=== PATIENT | female | born 1950 | race Caucasian/White ===

== ENCOUNTER 2016-08-10 03:29 | Inpatient (IN) | payer MEDICARE, OTHER ==
[2016-08-10] MEDS ORDERED: IBUPROFEN 600 MG TAB PO STA (03:32)
[2016-08-10] MEDS ORDERED: ACETAMINOPHEN TAB 500 MG TAB PO STA (03:32)
--- NOTE | 2016-08-10 03:36 | ED ---
General Adult HPI - General Stated complaint: fever, nausea Time Seen by Provider: 08/10/16 03:30 Source: RN notes reviewed - History of Present Illness Initial comments: This is a 66-year-old female presents to the emergency department with a past history of a chronically infected right foot for the last 2 years. Patient comes in today because she is nauseous and feels cold. Patient denies any headache patient denies any numbness or weakness. Patient denies any lightheadedness or dizziness. Patient denies any recent fever or cough. Patient denies any chest pain or palpitations. Patient denies any difficulty breathing or shortness of breath. Patient denies abdominal pain patient denies nausea vomiting diarrhea. Patient denies any recent injury or trauma. Patient denies any dysuria hematuria urinary frequency. - Related Data Home Medications Medication Instructions Recorded Confirmed Allopurinol [Zyloprim] 100 mg PO DAILY 08/10/16 08/10/16 Aspirin 81 mg PO DAILY 08/10/16 08/10/16 Atorvastatin [Lipitor] 40 mg PO DAILY 08/10/16 08/10/16 Furosemide [Lasix] 40 mg PO DAILY 08/10/16 08/10/16 Gabapentin [Neurontin] 400 mg PO DAILY 08/10/16 08/10/16 Hydrocodone/Acetaminophen [Lortab 7.5 ml PO Q6HR 08/10/16 08/10/16 10 mg-300 mg/15 ml Elxr] Insulin Aspart [NovoLOG] 30 unit SQ TID 08/10/16 08/10/16 Insulin Detemir [Levemir] 50 unit SQ BID 08/10/16 08/10/16 Isosorbide Mononitrate [Isosorbide 30 mg PO DAILY 08/10/16 08/10/16 Mononitrate ER] Levothyroxine Sodium [Tirosint] 50 mcg PO DAILY 08/10/16 08/10/16 Metoprolol Tartrate [Lopressor] 50 mg PO DAILY 08/10/16 08/10/16 Oxybutynin Chloride [Ditropan XL] 5 mg PO DAILY 08/10/16 08/10/16 Potassium Chloride [Klor-Con 10] 10 meq PO DAILY 08/10/16 08/10/16 Sertraline [Zoloft] 100 mg PO DAILY 01/09/17 01/09/17 Vitamin E 400 unit PO DAILY 08/10/16 08/10/16 Allergies Allergy/AdvReac Type Severity Reaction Status Date / Time ibuprofen [From Motrin] Allergy Rash/Hives Verified 08/10/16 03:39 Penicillins Allergy Rash/Hives Verified 08/10/16 03:38 Review of Systems ROS Statement: Those systems with pertinent positive or pertinent negative responses have been documented in the HPI. ROS Other: All systems not noted in ROS Statement are negative. General Exam - General Exam Comments Initial Comments: GENERAL: Patient is well-developed and well-nourished. Patient is nontoxic and well- hydrated and is in mild distress. ENT: Neck is soft and supple. No significant lymphadenopathy is noted. Oropharynx is clear. Moist mucous membranes. Neck has full range of motion without eliciting any pain. EYES: The sclera were anicteric and conjunctiva were pink and moist. Extraocular movements were intact and pupils were equal round and reactive to light. Eyelids were unremarkable. PULMONARY: Unlabored respirations. Good breath sounds bilaterally. No audible rales rhonchi or wheezing was noted. CARDIOVASCULAR: There is a regular rate and rhythm without any murmurs gallops or rubs. ABDOMEN: Soft and nontender with normal bowel sounds. No palpable organomegaly was noted. There is no palpable pulsatile mass. There is a small hard mass in the left upper quadrant of the abdomen patient states his been there quite a while it feels like a lipoma. SKIN: Skin is clear with no lesions or rashes and otherwise unremarkable. NEUROLOGIC: Patient is alert and oriented x3. Cranial nerves II through XII are grossly intact. Motor and sensory are also intact. Normal speech, volume and content. Symmetrical smile. MUSCULOSKELETAL: Normal extremities with adequate strength and full range of motion. No lower extremity swelling or edema. No calf tenderness. Right foot is erythematous on the dorsal service up through the ankle and his warm LYMPHATICS: No significant lymphadenopathy is noted PSYCHIATRIC: Normal psychiatric evaluation. Course Vital Signs 08/10/16 08/10/16 03:31 04:38 Temperature 102.2 F H 103.0 F H Pulse Rate 93 68 Respiratory 20 20 Rate Blood Pressure 155/67 132/72 O2 Sat by Pulse 98 98 Oximetry Medical Decision Making - Medical Decision Making Chest x-ray is normal. I believe patient is safe to the right foot I started the patient on Levaquin and admitted the patient I spoke with Dr. Cruz wrote admitting orders. - Lab Data Result diagrams: 08/10/16 04:00 08/10/16 04:00 Lab Results 08/10/16 08/10/16 08/10/16 Range/Units 04:00 04:00 04:00 WBC 18.7 H (3.8-10.6) k/uL RBC 3.72 L (3.80-5.40) m/uL Hgb 10.4 L (11.4-16.0) gm/dL Hct 32.7 L (34.0-46.0) % MCV 87.9 (80.0-100.0) fL MCH 28.1 (25.0-35.0) pg MCHC 31.9 (31.0-37.0) g/dL RDW 15.8 H (11.5-15.5) % Plt Count 177 (150-450) k/uL Neutrophils % 92 % Lymphocytes % 3 % Monocytes % 4 % Eosinophils % 0 % Basophils % 0 % Neutrophils # 17.2 H (1.3-7.7) k/uL Lymphocytes # 0.5 L (1.0-4.8) k/uL Monocytes # 0.7 (0-1.0) k/uL Eosinophils # 0.0 (0-0.7) k/uL Basophils # 0.1 (0-0.2) k/uL Sodium 138 (137-145) mmol/L Potassium 4.5 (3.5-5.1) mmol/L Chloride 97 L (98-107) mmol/L Carbon Dioxide 27 (22-30) mmol/L Anion Gap 14 mmol/L BUN 29 H (7-17) mg/dL Creatinine 1.20 H (0.52-1.04) mg/dL Est GFR (MDRD) Af Amer 54 (>60 ml/min/1.73 sqM) Est GFR (MDRD) Non-Af 45 (>60 ml/min/1.73 sqM) Glucose 260 H (74-99) mg/dL Plasma Lactic Acid Garcia 1.8 (0.7-2.0) mmol/L Calcium 9.5 (8.4-10.2) mg/dL Total Bilirubin 1.3 (0.2-1.3) mg/dL AST 27 (14-36) U/L ALT 30 (9-52) U/L Alkaline Phosphatase 97 (38-126) U/L Total Protein 7.0 (6.3-8.2) g/dL Albumin 3.8 (3.5-5.0) g/dL Urine Color Urine Appearance (Clear) Urine pH (5.0-8.0) Ur Specific [place] (1.001-1.035) Urine Protein (Negative) Urine Glucose (UA) (Negative) Urine Ketones (Negative) Urine Blood (Negative) Urine Nitrate (Negative) Urine Bilirubin (Negative) Urine Urobilinogen (<2.0) mg/dL Ur Leukocyte Esterase (Negative) Urine RBC (0-5) /hpf Urine WBC (0-5) /hpf Ur Squamous Epith Cells (0-4) /hpf Amorphous Sediment (None) /hpf Urine Bacteria (None) /hpf Hyaline Casts (0-2) /lpf Urine Mucus (None) /hpf 08/10/16 Range/Units 04:30 WBC (3.8-10.6) k/uL RBC (3.80-5.40) m/uL Hgb (11.4-16.0) gm/dL Hct (34.0-46.0) % MCV (80.0-100.0) fL MCH (25.0-35.0) pg MCHC (31.0-37.0) g/dL RDW (11.5-15.5) % Plt Count (150-450) k/uL Neutrophils % % Lymphocytes % % Monocytes % % Eosinophils % % Basophils % % Neutrophils # (1.3-7.7) k/uL Lymphocytes # (1.0-4.8) k/uL Monocytes # (0-1.0) k/uL Eosinophils # (0-0.7) k/uL Basophils # (0-0.2) k/uL Sodium (137-145) mmol/L Potassium (3.5-5.1) mmol/L Chloride (98-107) mmol/L Carbon Dioxide (22-30) mmol/L Anion Gap mmol/L BUN (7-17) mg/dL Creatinine (0.52-1.04) mg/dL Est GFR (MDRD) Af Amer (>60 ml/min/1.73 sqM) Est GFR (MDRD) Non-Af (>60 ml/min/1.73 sqM) Glucose (74-99) mg/dL Plasma Lactic Acid Garcia (0.7-2.0) mmol/L Calcium (8.4-10.2) mg/dL Total Bilirubin (0.2-1.3) mg/dL AST (14-36) U/L ALT (9-52) U/L Alkaline Phosphatase (38-126) U/L Total Protein (6.3-8.2) g/dL Albumin (3.5-5.0) g/dL Urine Color Yellow Urine Appearance Cloudy H (Clear) Urine pH 5.0 (5.0-8.0) Ur Specific [place] 1.011 (1.001-1.035) Urine Protein Negative (Negative) Urine Glucose (UA) Negative (Negative) Urine Ketones Negative (Negative) Urine Blood Trace H (Negative) Urine Nitrate Positive H (Negative) Urine Bilirubin Negative (Negative) Urine Urobilinogen <2.0 (<2.0) mg/dL Ur Leukocyte Esterase Moderate H (Negative) Urine RBC 3 (0-5) /hpf Urine WBC 10 H (0-5) /hpf Ur Squamous Epith Cells 1 (0-4) /hpf Amorphous Sediment Rare H (None) /hpf Urine Bacteria Few H (None) /hpf Hyaline Casts 5 H (0-2) /lpf Urine Mucus Rare H (None) /hpf Disposition Clinical Impression: Cellulitis of right foot, Urinary tract infection Disposition: ADMITTED IP TO THIS HOSP Referrals: Marcelino Cruz Jr, [Primary Care Provider] - 1-2 days Time of Disposition: 05:12
[2016-08-10] MEDS: ONDANSETRON 4 MG/2 ML VIAL IVP STA ×2 (04:13→04:15)
[2016-08-10 04:14] LABS: Basophils # (A) 0.1 k/uL (0-0.2); Basophils % (A) 0 %; CH 28.9; CHCM 33.1; Eosinophils % (A) 0 %; HCT 32.7 % (34.0-46.0); HDW 2.44; HGB 10.4 gm/dL (11.4-16.0); Luc % (Auto) 1; Lymphocytes # (A) 0.5 k/uL (1.0-4.8); Lymphocytes % (A) 3 %; MCH 28.1 pg (25.0-35.0); MCHC 31.9 g/dL (31.0-37.0); MCV 87.9 fL (80.0-100.0); Mean Platelet Volume 7.9; Monocytes # (A) 0.7 k/uL (0-1.0); Monocytes % (A) 4 %; Neutrophils # (A) 17.2 k/uL (1.3-7.7); Neutrophils % (A) 92 %; RBC 3.72 m/uL (3.80-5.40); RDW 15.8 % (11.5-15.5); WBC 18.7 k/uL (3.8-10.6); WBC (Perox) 19.62
[2016-08-10] MEDS: SODIUM CHLORIDE 0.9% 1,000 ML IV STA ×2 (04:18→06:58)
[2016-08-10 04:22] LABS: Calcium 9.5 mg/dL (8.4-10.2); Potassium 4.5 mmol/L (3.5-5.1); Total Bilirubin 1.3 mg/dL (0.2-1.3)
[2016-08-10 04:46] LABS: Amorphous Sediment,Urine Rare /hpf; Appearance,Urine Cloudy (Clear); Bacteria,Urine Few /hpf; Bilirubin,Urine Negative (Negative); Glucose,Urine (UA) Negative (Negative); Ketones,Urine Negative (Negative); Leukocyte Esterase,Urine Moderate (Negative); Mucus,Urine Rare /hpf; Nitrite,Urine Positive (Negative); Particle Count 18671; Protein,Urine Negative (Negative); RBC,Urine 3 /hpf (0-5); Specific Gravity,Urine 1.011 (1.001-1.035); Squamous Epithelial Cell,Urine 1 /hpf (0-4); UA Billing (MACRO vs. MICRO) MICRO; Urobilinogen,Urine <2.0 mg/dL (<2.0); WBC,Urine 10 /hpf (0-5)
[2016-08-10] MEDS ORDERED: LEVOFLOXACIN 750MG-D5W PMX 750 MG in DEXTROSE/WATER 1 150ML.BAG IVPB STA (04:56)
[2016-08-10] MEDS ORDERED: SODIUM CHLORIDE 0.9% 1,000 ML IV ONE ×2 (05:12→16:24)
--- NOTE | 2016-08-10 06:09 | XR ---
EXAMINATION TYPE: XR chest 2V DATE OF EXAM: 08/10/2016 5:08 AM COMPARISON: 08/11/2011 HISTORY: Fever and weakness TECHNIQUE: Frontal and lateral views of the chest are obtained. FINDINGS: There is mild pulmonary vascular congestion. There is no focal air space opacity, pleural effusion, or pneumothorax seen. There is mild cardiomega ly. Postsurgical changes of sternotomy are noted.. The osseous structures are intact. IMPRESSION: 1. No focal pneumonia. 2. Mild pulmonary vascular congestion. 3. Cardiomegaly and sternotomy.
[2016-08-10 07:53] LABS: Glucose,Whole Blood 288 mg/dL (75-99)
[2016-08-10] MEDS: HYDROcodone/APAP 15 ML SOLUTION PO PRN ×2 (08:35→15:51)
[2016-08-10] MEDS: FUROSEMIDE 40 MG TAB PO SCH ×2 (10:56→17:04)
[2016-08-10] MEDS: POTASSIUM CHLORIDE ER 10 MEQ TAB.ER.PRT PO SCH (10:56)
[2016-08-10] MEDS: LEVOTHYROXINE 50 MCG TAB PO SCH (10:56)
[2016-08-10] MEDS: ISOSORBIDE MONONITRATE ER 30 MG TAB.ER.24H PO SCH (10:56)
[2016-08-10] MEDS: METOPROLOL TARTRATE 50 MG TAB PO SCH (10:56)
[2016-08-10] MEDS: INSULIN DETEMIR 100 UNIT/ML 10 ML VIAL SQ SCH ×2 (10:56→20:55)
[2016-08-10] MEDS: OXYBUTYNIN CHLORIDE 5 MG TAB PO SCH ×2 (10:57→20:55)
[2016-08-10] MEDS: SERTRALINE 100 MG TAB PO SCH (10:57)
[2016-08-10 12:00] LABS: Glucose,Whole Blood 342 mg/dL (75-99)
[2016-08-10] MEDS: VITAMIN E (DL,TOCOPHERYL ACET) 400 UNIT CAP PO SCH (12:21)
[2016-08-10] MEDS: CLOTRIMAZOLE 1% CREAM 15 GM TUBE TOPICAL SCH ×2 (12:22→20:55)
[2016-08-10] MEDS: INSULIN LISPRO (humaLOG) 300 UNIT/3 ML VIAL SQ SCH ×5 (12:34→20:55)
--- NOTE | 2016-08-10 16:41 | P.HPIM ---
History of Present Illness H&P Date: 08/10/16 Chief Complaint: Fever, nausea Patient is a 66-year-old female, patient of Dr. Cruz in the outpatient setting with medical history significant for coronary artery disease , diabetes mellitus, hyperlipidemia, hypertension, hypothyroidism, diverticulitis, rheumatic fever, arthritis, morbid obesity, and gout. Patient has also had chronic cellulitis to right lower extremity for approximately 2 years. Patient presented to the emergency department with complaints of nauseous and having chills. Patient was found to be septic with evidence of elevated temperature, white count, and lactic acid. Patient was found to have a urinary tract infection. Patient was started on IV Levaquin and admitted to the medical floor. Upon examination, patient complains of pain to her right foot currently rated 6 out of 10. Patient complains of mild nausea without vomiting. Complains of intermittent chills. Denies shortness of breath, chest pain, or abdominal pain. Patient reports decreased appetite. Past Medical History Past Medical History: Coronary Artery Disease (CAD), Diabetes Mellitus, Hyperlipidemia, Hypertension, Thyroid Disorder Additional Past Medical History / Comment(s): diverticultitis, rhuematic fever, arthritis, gout History of Any Multi-Drug Resistant Organisms: None Reported Past Surgical History: Bariatric Surgery, Section, Cholecystectomy, Hysterectomy, Tonsillectomy Additional Past Surgical History / Comment(s): carpal tunnel, double bypass Past Psychological History: No Psychological Hx Reported Smoking Status: Never smoker Past Alcohol Use History: None Reported Past Drug Use History: None Reported Medications and Allergies Home Medications Medication Instructions Recorded Confirmed Type Allopurinol [Zyloprim] 100 mg PO DAILY 08/10/16 08/10/16 History Aspirin 81 mg PO DAILY 08/10/16 08/10/16 History Atorvastatin [Lipitor] 40 mg PO DAILY 08/10/16 08/10/16 History Furosemide [Lasix] 40 mg PO BID 08/10/16 08/10/16 History Gabapentin [Neurontin] 400 mg PO HS 08/10/16 08/10/16 History Hydrocodone/Acetaminophen 15 ml PO Q6HR PRN 08/10/16 08/10/16 History [Hydrocodon-Acetamin 7.5-325/15] Insulin Aspart [NovoLOG] 30 unit SQ AC-TID 08/10/16 08/10/16 History Insulin Detemir [Levemir] 50 unit SQ BID 08/10/16 08/10/16 History Isosorbide Mononitrate [Isosorbide 30 mg PO DAILY 08/10/16 08/10/16 History Mononitrate ER] Levothyroxine Sodium [Tirosint] 50 mcg PO DAILY 08/10/16 08/10/16 History Metoprolol Tartrate [Lopressor] 50 mg PO DAILY 08/10/16 08/10/16 History Oxybutynin Chloride 5 mg PO BID 08/10/16 08/10/16 History Potassium Chloride [Klor-Con 10] 10 meq PO DAILY 08/10/16 08/10/16 History Sertraline [Zoloft] 100 mg PO DAILY 08/10/16 08/10/16 History Vitamin E 400 unit PO DAILY 08/10/16 08/10/16 History Allergies Allergy/AdvReac Type Severity Reaction Status Date / Time ibuprofen [From Motrin] Allergy Rash/Hives Verified 08/10/16 03:39 Penicillins Allergy Rash/Hives Verified 08/10/16 03:38 Physical Exam Vitals: Vital Signs Temp Pulse Pulse Resp BP BP Pulse Ox 08/10/16 14:49 97.6 F 68 18 100/40 93 L 08/10/16 06:29 100.7 F H 107 H 16 136/52 92 L 08/10/16 06:15 16 08/10/16 05:29 100.5 F H 88 20 139/78 98 Intake and Output 08/10/16 08/10/16 08/10/16 06:59 14:59 22:59 Output Total 100 Balance -100 Output: Urine 100 Other: Voiding Method Indwelling Catheter Indwelling Catheter # Voids 1 Weight 145 kg GENERAL: Pt awake and alert, well-nourished, and uncomfortable. HEAD: Atraumatic, normocephalic. EYES: Pupils equal and round. ENT: Moist mucous membranes. NECK:Supple without lymphadenopathy or JVD. LUNGS: Breath sounds clear to auscultation bilaterally. No wheezes, rales, or rhonchi. HEART: Heart S1, S2, no S3 or S4. Regular rate and rhythm. No murmurs, rubs or gallops. ABDOMEN: Soft, morbidly obese, nontender, nondistended, normoactive bowel sounds. EXTREMITIES: 2+ peripheral pulses. 1+ edema to bilateral lower extremities. No calf tenderness. NEUROLOGICAL: Pt oriented x 3. Cranial nerves II through XII grossly intact. Decreased strength to upper and lower extremities. PSYCH: Normal mood, normal affect. SKIN: Cellulitis to right lower extremity from ankle to foot. Results CBC & Chem 7: 08/10/16 04:00 08/10/16 04:00 Labs: Abnormal Lab Results - Last 24 Hours (Table) 08/10/16 08/10/16 Range/Units 07:33 11:56 POC Glucose (mg/dL) 288 H 342 H (75-99) mg/dL Chest x-ray: report reviewed (No focal pneumonia. Mild pulmonary vascular congestion. Cardiomegaly and sternotomy.) Thrombosis Risk Factor Assmnt - DVT/VTE Prophylaxis DVT/VTE Prophylaxis: Pharmacologic Prophylaxis ordered, Mechanical Prophylaxis ordered - Choose All That Apply Any of the Below Risk Factors Present?: Yes Each Factor Represents 1 point: Swollen legs (current) Other Risk Factors: Yes Each Risk Factor Represents 2 Points: Age 61-74 years Each Risk Factor Represents 3 Points: Family history of DVT/PE Other congenital or acquired thrombophilia - If yes, enter type in comment: No Thrombosis Risk Factor Assessment Total Risk Factor Score: 6 Thrombosis Risk Factor Assessment Level: High Risk Assessment and Plan Plan: Impression and plan: 1. Sepsis suspect secondary to urinary tract infection and possible cellulitis to right foot. Urine culture pending. Continue IV Levaquin. 2. Cellulitis to right foot. Continue local wound care. 3. Anemia suspect secondary to chronic disease. 4. Chronic renal failure, stage III. 5. Diabetes mellitus, insulin requiring, uncontrolled. Continue Levemir and Humalog sliding scale. Continue consistent carbohydrate diet. 6. Coronary artery disease with history of coronary artery bypass grafting. 7. History of hyperlipidemia. 8. Hypertension. Continue metoprolol. Continue Imdur. 9. Hypothyroidism. Continue levothyroxine. 10. History of diverticulitis. 11. History of rheumatic fever. 12. History of osteoarthritis to multiple joints. 13. History of gout. 14. Morbid obesity, BMI 58.5. 15. GI prophylaxis. Continue Pepcid. 16. DVT prophylaxis. Continue subcu heparin. The above impression and plan have been discussed and directed by Dr. Cruz. Munira AGUILERA acting as scribe for Dr. Cruz.
[2016-08-10 17:08] LABS: Glucose,Whole Blood 183 mg/dL (75-99)
[2016-08-10] MEDS: HEPARIN SODIUM,PORCINE 5,000 UNIT/ML 1 ML VIAL SQ SCH ×2 (17:13→23:16)
[2016-08-10] MEDS: FAMOTIDINE 20 MG TAB PO SCH (20:55)
[2016-08-10] MEDS: GABAPENTIN 400 MG CAP PO SCH (20:55)
[2016-08-10 21:05] LABS: Glucose,Whole Blood 152 mg/dL (75-99)
[2016-08-11] MEDS: LEVOTHYROXINE 50 MCG TAB PO SCH (05:58)
[2016-08-11 07:24] LABS: Glucose,Whole Blood 147 mg/dL (75-99)
[2016-08-11] MEDS: HYDROcodone/APAP 15 ML SOLUTION PO PRN ×2 (07:37→21:13)
[2016-08-11] MEDS: HEPARIN SODIUM,PORCINE 5,000 UNIT/ML 1 ML VIAL SQ SCH ×3 (07:37→22:58)
[2016-08-11] MEDS: INSULIN DETEMIR 100 UNIT/ML 10 ML VIAL SQ SCH ×2 (07:38→21:13)
[2016-08-11] MEDS: SERTRALINE 100 MG TAB PO SCH (07:38)
[2016-08-11] MEDS: POTASSIUM CHLORIDE ER 10 MEQ TAB.ER.PRT PO SCH (07:38)
[2016-08-11] MEDS: INSULIN LISPRO (humaLOG) 300 UNIT/3 ML VIAL SQ SCH ×7 (07:38→21:14)
[2016-08-11] MEDS: ISOSORBIDE MONONITRATE ER 30 MG TAB.ER.24H PO SCH (07:38)
[2016-08-11] MEDS: METOPROLOL TARTRATE 50 MG TAB PO SCH (07:38)
[2016-08-11] MEDS: OXYBUTYNIN CHLORIDE 5 MG TAB PO SCH ×2 (07:38→21:13)
[2016-08-11] MEDS: CLOTRIMAZOLE 1% CREAM 15 GM TUBE TOPICAL SCH ×2 (07:39→21:13)
[2016-08-11] MEDS ORDERED: LEVOFLOXACIN 750MG-D5W PMX 750 MG in DEXTROSE/WATER 1 150ML.BAG IVPB SCH (09:00)
[2016-08-11 10:19] VITALS: BMI 61.2
[2016-08-11 10:21] LABS: CH 28.6; CHCM 31.7; HCT 28.4 % (34.0-46.0); HDW 2.29; MCH 28.9 pg (25.0-35.0); MCHC 31.9 g/dL (31.0-37.0); MCV 90.5 fL (80.0-100.0); Mean Platelet Volume 7.7; RBC 3.13 m/uL (3.80-5.40); RDW 15.7 % (11.5-15.5); WBC 9.3 k/uL (3.8-10.6)
[2016-08-11 10:47] LABS: Calcium 8.6 mg/dL (8.4-10.2); Potassium 4.1 mmol/L (3.5-5.1)
[2016-08-11] MEDS: cefTRIAXone 2,000 MG in SODIUM CHLORIDE 0.9% 100 ML IVPB SCH (11:06)
[2016-08-11] MEDS: VITAMIN E (DL,TOCOPHERYL ACET) 400 UNIT CAP PO SCH (11:06)
--- NOTE | 2016-08-11 11:26 | P.CONS ---
History of Present Illness - Reason for Consult Consult date: 08/11/16 Fever, cellulitis, UTI - History of Present Illness This is 66-year-old . She gives history that for a long time she has been very tired to the point where she can hardly put 1 foot in front of the other. She also states that she has had intermittent nausea with persistent lack of appetite. She states she only eats one meal in the evening daily. She is diabetic and she states her blood sugars are running in the 200+ at home. She states she was placed on Synthroid along time ago for these symptoms which did not seem to make any difference. She now states she has had fever on and off for the last couple of weeks. She states on Wednesday evening she took a shower and she got so cold with rigors and she couldn't stop shaking and her family brought her into [facility] emergency center for evaluation. Patient also states for the past 2 years she has had problems with redness to the right lower leg and she has been on Kenalog cream for the past 3 months. She denies any recent antibiotics and to the legs. She does complain of pressure to the lower abdominal area and pain with urination. She does states she urinates frequently depending on when she takes her water pill. She also states her urine has been smelling terrible. Her white count was 18.7 with temperature of 103.0. BUN 29 creatinine 1.2, lactic acid 2.2, albumin 3.8. Urinalysis was cloudy, blood trace, nitrate positive, leukoesterase moderate, WBC is 10, bacteria few. Urine culture is showing gram-negative bacilli greater than 100,000 colonies. Blood cultures showing no growth at 24 hours. Chest x-ray showed no focal pneumonia with mild pulmonary vascular congestion and cardiomegaly. Patient was started on Levaquin and admitted to the [facility] floor. At this time, patient states she is not feeling much improvement. She did have a temperature 101.1 this morning pulse ox was 89% on room air. She states she sometimes feels lightheaded even when she is in a sitting position. Review of Systems All systems: negative Constitutional: Reports anorexia, Reports chills, Reports fatigue, Reports fever , Reports lethargy, Reports poor appetite, Reports sweats, Reports weakness Eyes: denies blurred vision, denies pain Ears, nose, mouth and throat: Denies dental pain, Denies headache, Denies mouth pain, Denies sore throat Cardiovascular: Reports dyspnea on exertion, Reports leg edema, Reports lightheadedness, Denies chest pain, Denies shortness of breath Respiratory: Denies cough, Denies cough with sputum, Denies excessive sputum, Denies hemoptysis Gastrointestinal: Reports loss of appetite, Denies abdominal pain, Denies diarrhea, Denies nausea, Denies vomiting Genitourinary: Reports dysuria, Reports urinary frequency, Denies hematuria Musculoskeletal: Denies myalgias Integumentary: Reports color changes, Reports wounds, Denies pruritus, Denies rash Neurological: Denies numbness, Denies weakness Psychiatric: Denies anxiety, Denies depression Endocrine: Denies fatigue, Denies weight change Past Medical History Past Medical History: Coronary Artery Disease (CAD), Diabetes Mellitus, Hyperlipidemia, Hypertension, Thyroid Disorder Additional Past Medical History / Comment(s): diverticultitis, rhuematic fever, arthritis, gout, obstructive sleep apnea on CPAP History of Any Multi-Drug Resistant Organisms: None Reported Past Surgical History: Bariatric Surgery, Section, Cholecystectomy, Hysterectomy, Tonsillectomy Additional Past Surgical History / Comment(s): A 2 vessel CABG in 1996, bilateral carpal tunnel release, lap band surgery with Dr. Jefferson Past Psychological History: No Psychological Hx Reported Smoking Status: Never smoker Past Alcohol Use History: None Reported Additional Past Alcohol Use History / Comment(s): Patient is a lifelong nonsmoker. She denies any medical marijuana, marijuana, street drug or alcohol use. She lives at home with her son, grandson and brother. 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 There are 3 dogs and 1 cat in the home. Past Drug Use History: None Reported Medications and Allergies Home Medications Medication Instructions Recorded Confirmed Type Allopurinol [Zyloprim] 100 mg PO DAILY 08/10/16 08/10/16 History Aspirin 81 mg PO DAILY 08/10/16 08/10/16 History Atorvastatin [Lipitor] 40 mg PO DAILY 08/10/16 08/10/16 History Furosemide [Lasix] 40 mg PO BID 08/10/16 08/10/16 History Gabapentin [Neurontin] 400 mg PO HS 08/10/16 08/10/16 History Hydrocodone/Acetaminophen 15 ml PO Q6HR PRN 08/10/16 08/10/16 History [Hydrocodon-Acetamin 7.5-325/] Insulin Aspart [NovoLOG] 30 unit SQ AC-TID 08/10/16 08/10/16 History Insulin Detemir [Levemir] 50 unit SQ BID 08/10/16 08/10/16 History Isosorbide Mononitrate [Isosorbide 30 mg PO DAILY 08/10/16 08/10/16 History Mononitrate ER] Levothyroxine Sodium [Tirosint] 50 mcg PO DAILY 08/10/16 08/10/16 History Metoprolol Tartrate [Lopressor] 50 mg PO DAILY 08/10/16 08/10/16 History Oxybutynin Chloride 5 mg PO BID 08/10/16 08/10/16 History Potassium Chloride [Klor-Con 10] 10 meq PO DAILY 08/10/16 08/10/16 History Sertraline [Zoloft] 100 mg PO DAILY 08/10/16 08/10/16 History Vitamin E 400 unit PO DAILY 08/10/16 08/10/16 History Allergies Allergy/AdvReac Type Severity Reaction Status Date / Time ibuprofen [From Motrin] Allergy Rash/Hives Verified 08/10/16 03:39 Penicillins Allergy Rash/Hives Verified 08/10/16 03:38 Physical Exam Vitals: Vital Signs Temp Pulse Resp BP Pulse Ox 08/11/16 08:30 98.4 F 08/11/16 07:00 101.1 F H 76 20 121/60 89 L 08/10/16 23:00 98.9 F 69 20 126/58 91 L 08/10/16 14:49 97.6 F 68 18 100/40 93 L Intake and Output 08/10/16 08/11/16 08/11/16 22:59 06:59 14:59 Intake Total 400 Output Total 525 400 Balance -525 0 Intake: Oral 400 Output: Urine 525 400 Other: Voiding Method Indwelling Catheter Indwelling Catheter Weight 152 kg 152 kg Patient Weight 08/12/16 06:59 Weight 152 kg Gen: This is a super morbidly obese 66-year-old female. She appears to be in no acute distress. HEENT: Head is atraumatic, normocephalic. Pupils equal, round. Sclerae is anicteric. Conjunctiva pink. Mucous members of the mouth are moist. Patient is edentulous. No thrush noted. NECK: Supple. No JVD. No lymphadenopathy. No thyromegaly. LUNGS: Clear to auscultation. No wheezes or rhonchi. No intercostal retractions. HEART: Regular rate and rhythm. No murmur. ABDOMEN: Morbidly obese Soft. Bowel sounds are present. No masses. Minimal suprapubic tenderness. EXTREMITIES: 1+ pedal edema. Right leg has large dressing in place with Jam wrap which was not removed. Exam deferred to Dr. Jansen. NEUROLOGICAL: Patient is awake, alert and oriented x3. Cranial nerves 2 through 12 are grossly intact. Results Results: Laboratory Results WBC 9.3 k/uL (3.8-10.6) 08/11/16 09:42 RBC 3.13 m/uL (3.80-5.40) L 08/11/16 09:42 Hgb 9.0 gm/dL (11.4-16.0) L 08/11/16 09:42 Hct 28.4 % (34.0-46.0) L 08/11/16 09:42 MCV 90.5 fL (80.0-100.0) 08/11/16 09:42 MCH 28.9 pg (25.0-35.0) 08/11/16 09:42 MCHC 31.9 g/dL (31.0-37.0) 08/11/16 09:42 RDW 15.7 % (11.5-15.5) H 08/11/16 09:42 Plt Count 145 k/uL (150-450) L 08/11/16 09:42 Neutrophils % 92 % 08/10/16 04:00 Lymphocytes % 3 % 08/10/16 04:00 Monocytes % 4 % 08/10/16 04:00 Eosinophils % 0 % 08/10/16 04:00 Basophils % 0 % 08/10/16 04:00 Neutrophils # 17.2 k/uL (1.3-7.7) H 08/10/16 04:00 Lymphocytes # 0.5 k/uL (1.0-4.8) L 08/10/16 04:00 Monocytes # 0.7 k/uL (0-1.0) 08/10/16 04:00 Eosinophils # 0.0 k/uL (0-0.7) 08/10/16 04:00 Basophils # 0.1 k/uL (0-0.2) 08/10/16 04:00 Sodium 137 mmol/L (137-145) 08/11/16 09:42 Potassium 4.1 mmol/L (3.5-5.1) 08/11/16 09:42 Chloride 100 mmol/L (98-107) 08/11/16 09:42 Carbon Dioxide 26 mmol/L (22-30) 08/11/16 09:42 Anion Gap 11 mmol/L 08/11/16 09:42 BUN 36 mg/dL (7-17) H 08/11/16 09:42 Creatinine 1.56 mg/dL (0.52-1.04) H 08/11/16 09:42 Est GFR (MDRD) Af Amer 40 (>60 ml/min/1.73 sqM) 08/11/16 09:42 Est GFR (MDRD) Non-Af 33 (>60 ml/min/1.73 sqM) 08/11/16 09:42 Glucose 149 mg/dL (74-99) H 08/11/16 09:42 POC Glucose (mg/dL) 147 mg/dL (75-99) H 08/11/16 07:23 POC Glu Tobacco Stripper Hand ID Kendra Pace 08/11/16 07:[address] Glu mg/dL 212 mg/dL 08/10/16 04:00 Hemoglobin A1c 9.0 % (4.2-6.1) H 08/10/16 04:00 Plasma Lactic Acid Garcia 1.1 mmol/L (0.7-2.0) 08/11/16 09:42 Calcium 8.6 mg/dL (8.4-10.2) 08/11/16 09:42 Total Bilirubin 1.3 mg/dL (0.2-1.3) 08/10/16 04:00 AST 27 U/L (14-36) 08/10/16 04:00 ALT 30 U/L (9-52) 08/10/16 04:00 Alkaline Phosphatase 97 U/L (38-126) 08/10/16 04:00 Total Protein 7.0 g/dL (6.3-8.2) 08/10/16 04:00 Albumin 3.8 g/dL (3.5-5.0) 08/10/16 04:00 Urine Color Yellow 08/10/16 04:30 Urine Appearance Cloudy (Clear) H 08/10/16 04:30 Urine pH 5.0 (5.0-8.0) 08/10/16 04:30 Ur Specific Taylor 1.011 (1.001-1.035) 08/10/16 04:30 Urine Protein Negative (Negative) 08/10/16 04:30 Urine Glucose (UA) Negative (Negative) 08/10/16 04:30 Urine Ketones Negative (Negative) 08/10/16 04:30 Urine Blood Trace (Negative) H 08/10/16 04:30 Urine Nitrate Positive (Negative) H 08/10/16 04:30 Urine Bilirubin Negative (Negative) 08/10/16 04:30 Urine Urobilinogen <2.0 mg/dL (<2.0) 08/10/16 04:30 Ur Leukocyte Esterase Moderate (Negative) H 08/10/16 04:30 Urine RBC 3 /hpf (0-5) 08/10/16 04:30 Urine WBC 10 /hpf (0-5) H 08/10/16 04:30 Ur Squamous Epith Cells 1 /hpf (0-4) 08/10/16 04:30 Amorphous Sediment Rare /hpf (None) H 08/10/16 04:30 Urine Bacteria Few /hpf (None) H 08/10/16 04:30 Hyaline Casts 5 /lpf (0-2) H 08/10/16 04:30 Urine Mucus Rare /hpf (None) H 08/10/16 04:30 Influenza Type A RNA Not Detected (Not Detectd) 08/10/16 05:40 Influenza Type B (PCR) Not Detected (Not Detectd) 08/10/16 05:40 CBC & Chem 7: 08/11/16 09:42 08/11/16 09:42 Labs: Abnormal Lab Results - Last 24 Hours (Table) 08/10/16 08/10/16 08/10/16 Range/Units 11:56 15:27 17:04 RBC (3.80-5.40) m/uL Hgb (11.4-16.0) gm/dL Hct (34.0-46.0) % RDW (11.5-15.5) % Plt Count (150-450) k/uL BUN (7-17) mg/dL Creatinine (0.52-1.04) mg/dL Glucose (74-99) mg/dL POC Glucose (mg/dL) 342 H 183 H (75-99) mg/dL Plasma Lactic Acid Garcia 2.2 H* (0.7-2.0) mmol/L 08/10/16 08/11/16 08/11/16 Range/Units 20:47 07:23 09:42 RBC 3.13 L (3.80-5.40) m/uL Hgb 9.0 L (11.4-16.0) gm/dL Hct 28.4 L (34.0-46.0) % RDW 15.7 H (11.5-15.5) % Plt Count 145 L (150-450) k/uL BUN (7-17) mg/dL Creatinine (0.52-1.04) mg/dL Glucose (74-99) mg/dL POC Glucose (mg/dL) 152 H 147 H (75-99) mg/dL Plasma Lactic Acid Garcia (0.7-2.0) mmol/L 08/11/16 Range/Units 09:42 RBC (3.80-5.40) m/uL Hgb (11.4-16.0) gm/dL Hct (34.0-46.0) % RDW (11.5-15.5) % Plt Count (150-450) k/uL BUN 36 H (7-17) mg/dL Creatinine 1.56 H (0.52-1.04) mg/dL Glucose 149 H (74-99) mg/dL POC Glucose (mg/dL) (75-99) mg/dL Plasma Lactic Acid Garcia (0.7-2.0) mmol/L Assessment and Plan Plan: This is a 66-year-old female who presents for hospital with signs of sepsis with fever and leukocytosis most likely due to urinary tract infection and cellulitis to the right lower extremity. Urine culture showing gram- negative bacilli. She has been on Levaquin without improvement and continues to have fevers. Patient will be placed on ceftriaxone. Discussed with patient her need to eat regular meals and control blood sugars. Continue supportive care. Further recommendations as patient progresses. The above dictated assessment and findings were discussed with Dr. Jansen. The impression and plan of care have been directed as dictated. Glenny Shultz nurse practitioner acting as scribe for Dr. Jansen. Time with Patient: Greater than 30
[2016-08-11 12:27] LABS: Glucose,Whole Blood 111 mg/dL (75-99)
--- NOTE | 2016-08-11 12:48 | P.PN ---
Subjective Principal diagnosis: Urinary tract infection Patient is a 66-year-old female, patient of Dr. Cruz in the outpatient setting with medical history significant for coronary artery disease , diabetes mellitus, hyperlipidemia, hypertension, hypothyroidism, diverticulitis, rheumatic fever, arthritis, morbid obesity, and gout. Patient has also had evidence of chronic cellulitis to right lower extremity for approximately 2 years. Patient presented to the emergency department with complaints of nauseous and having chills. Patient was found to be sepsis from urinary tract infection. Patient was started on IV Levaquin and admitted to the medical floor. Upon evaluation, patient complains of mild suprapubic abdominal pain that she states has been ongoing for a couple weeks. Patient reports chills and sweats last night. Patient reports mild nausea without vomiting this morning. Denies shortness of breath, chest pain, diarrhea or constipation. Patient states she had approximately 50% of her breakfast. No evidence of leukocytosis. Creatinine increased to 1.56. Objective - Vital Signs Vital signs: Vital Signs Temp 98.4 F 08/11/16 08:30 Pulse 76 08/11/16 07:00 Resp 20 08/11/16 07:00 BP 121/60 08/11/16 07:00 Pulse Ox 89 L 08/11/16 07:00 Intake & Output 08/10/16 08/11/16 08/11/16 18:59 06:59 18:59 Intake Total 400 Output Total 325 600 Balance -325 -200 Weight 152 kg 152 kg Intake: Oral 400 Output: Urine 325 600 Other: Voiding Method Indwelling Catheter Indwelling Catheter Indwelling Catheter - Exam GENERAL: Pt awake and alert, well-nourished, appears in no apparent distress. HEAD: Atraumatic, normocephalic. EYES: Pupils equal and round. ENT: Moist mucous membranes. NECK:Supple without lymphadenopathy or JVD. LUNGS: Breath sounds clear to auscultation bilaterally. No wheezes, rales, or rhonchi. HEART: Heart S1, S2, no S3 or S4. Regular rate and rhythm. No murmurs, rubs or gallops. ABDOMEN: Soft, morbidly obese, mild suprapubic tenderness, nondistended, normoactive bowel sounds. EXTREMITIES: 2+ peripheral pulses. 1+ edema to bilateral lower extremities. No calf tenderness. Dressing to right lower extremity intact. NEUROLOGICAL: Pt oriented x 3. Cranial nerves II through XII grossly intact. Decreased strength to upper and lower extremities. PSYCH: Normal mood, normal affect. - Labs CBC & Chem 7: 08/11/16 09:42 08/11/16 09:42 Labs: Abnormal Lab Results - Last 24 Hours (Table) 08/10/16 08/10/16 08/10/16 Range/Units 15:27 17:04 20:47 RBC (3.80-5.40) m/uL Hgb (11.4-16.0) gm/dL Hct (34.0-46.0) % RDW (11.5-15.5) % Plt Count (150-450) k/uL BUN (7-17) mg/dL Creatinine (0.52-1.04) mg/dL Glucose (74-99) mg/dL POC Glucose (mg/dL) 183 H 152 H (75-99) mg/dL Plasma Lactic Acid Garcia 2.2 H* (0.7-2.0) mmol/L 08/11/16 08/11/16 08/11/16 Range/Units 07:23 09:42 09:42 RBC 3.13 L (3.80-5.40) m/uL Hgb 9.0 L (11.4-16.0) gm/dL Hct 28.4 L (34.0-46.0) % RDW 15.7 H (11.5-15.5) % Plt Count 145 L (150-450) k/uL BUN 36 H (7-17) mg/dL Creatinine 1.56 H (0.52-1.04) mg/dL Glucose 149 H (74-99) mg/dL POC Glucose (mg/dL) 147 H (75-99) mg/dL Plasma Lactic Acid Garcia (0.7-2.0) mmol/L Assessment and Plan Plan: Impression and plan: 1. Sepsis suspect secondary to urinary tract infection. Preliminary urine culture with gram-negative bacilli. Continue antibiotics per infectious disease service. 2. Cellulitis to right foot. Continue local wound care. 3. Acute renal failure, suspect secondary to sepsis. Continue IV hydration. 3. Anemia suspect secondary to chronic disease. 4. Chronic renal failure, stage III. 5. Diabetes mellitus, insulin requiring, uncontrolled. Hemoglobin A1c 9. Continue Levemir and Humalog sliding scale. Continue consistent carbohydrate diet. 6. Coronary artery disease with history of coronary artery bypass grafting. 7. History of hyperlipidemia. 8. Hypertension. Continue metoprolol. Continue Imdur. 9. Hypothyroidism. Continue levothyroxine. 10. History of diverticulitis. 11. History of rheumatic fever. 12. History of osteoarthritis to multiple joints. 13. History of gout. 14. Morbid obesity, BMI 58.5. 15. GI prophylaxis. Continue Pepcid. 16. DVT prophylaxis. Continue subcu heparin. The above impression and plan have been discussed and directed by Dr. Cruz. Munira AGUILERA acting as scribe for Dr. Cruz.
[2016-08-11 17:01] LABS: Glucose,Whole Blood 109 mg/dL (75-99)
--- NOTE | 2016-08-11 20:13 | P.CON ---
Consult Note - . Consult date: 08/11/16 Assessment/Plan:: This is 66-year-old . She gives history that for a long time she has been very tired to the point where she can hardly put 1 foot in front of the other. She also states that she has had intermittent nausea with persistent lack of appetite. She states she only eats one meal in the evening daily. She is diabetic and she states her blood sugars are running in the 200+ at home. She states she was placed on Synthroid along time ago for these symptoms which did not seem to make any difference. She now states she has had fever on and off for the last couple of weeks. She states on Wednesday evening she took a shower and she got so cold with rigors and she couldn't stop shaking and her family brought her into [facility] emergency center for evaluation. Patient also states for the past 2 years she has had problems with redness to the right lower leg and she has been on Kenalog cream for the past 3 months. She denies any recent antibiotics and to the legs. She does complain of pressure to the lower abdominal area and pain with urination. She does states she urinates frequently depending on when she takes her water pill. She also states her urine has been smelling terrible. Her white count was 18.7 with temperature of 103.0. BUN 29 creatinine 1.2, lactic acid 2.2, albumin 3.8. Urinalysis was cloudy, blood trace, nitrate positive, leukoesterase moderate, WBC is 10, bacteria few. Urine culture is showing gram-negative bacilli greater than 100,000 colonies. Blood cultures showing no growth at 24 hours. Chest x-ray showed no focal pneumonia with mild pulmonary vascular congestion and cardiomegaly. Patient was started on Levaquin [facility] At this time, patient states she is not feeling much improvement. She did have a temperature 101.1 this morning pulse ox was 89% on room air. She states she sometimes feels lightheaded even when she is in a sitting position. Please see the consult note is dictated by nurse practitioner Mrs. Glenny Shultz. Very pleasant 66-year-old woman who does have superobesity presents to Hospital fever chills and rigors. She appears to have evidence of a mild cellulose the right leg but does have evidence of urinary tract infection. Workup is in process. Urine culture is positive for gram-negative bacilli. With this antibiotic therapy was altered from quinolone therapy to Rocephin until we have further data. Concerns to resistance to the quinolone antibiotic. Continue ongoing supportive care. Blood cultures are in process. Fortunately she's feeling somewhat better today. The right lower extremity is wrapped to help with the edema and mild cellulitis. Overall she is improving. Cultures will direct the course of antibiotic therapy discharge whether is oral or IV. I gross evaluation, assessment and plan as dictated by nurse practitioner Mrs. Glenny Shultz.
[2016-08-11 21:12] LABS: Glucose,Whole Blood 122 mg/dL (75-99)
[2016-08-11] MEDS: FAMOTIDINE 20 MG TAB PO SCH (21:13)
[2016-08-11] MEDS: GABAPENTIN 400 MG CAP PO SCH (21:13)
[2016-08-12] MEDS: LEVOTHYROXINE 50 MCG TAB PO SCH (05:19)
[2016-08-12 06:53] LABS: Glucose,Whole Blood 97 mg/dL (75-99)
[2016-08-12] MEDS: CLOTRIMAZOLE 1% CREAM 15 GM TUBE TOPICAL SCH ×2 (07:25→21:55)
[2016-08-12] MEDS: HEPARIN SODIUM,PORCINE 5,000 UNIT/ML 1 ML VIAL SQ SCH ×2 (07:26→15:01)
[2016-08-12] MEDS: OXYBUTYNIN CHLORIDE 5 MG TAB PO SCH ×2 (07:26→21:55)
[2016-08-12] MEDS: ISOSORBIDE MONONITRATE ER 30 MG TAB.ER.24H PO SCH (07:26)
[2016-08-12] MEDS: SERTRALINE 100 MG TAB PO SCH (07:26)
[2016-08-12] MEDS: POTASSIUM CHLORIDE ER 10 MEQ TAB.ER.PRT PO SCH (07:26)
[2016-08-12] MEDS: METOPROLOL TARTRATE 50 MG TAB PO SCH (07:27)
[2016-08-12] MEDS: cefTRIAXone 2,000 MG in SODIUM CHLORIDE 0.9% 100 ML IVPB SCH (07:27)
[2016-08-12] MEDS: INSULIN LISPRO (humaLOG) 300 UNIT/3 ML VIAL SQ SCH ×7 (07:27→21:39)
[2016-08-12] MEDS: INSULIN DETEMIR 100 UNIT/ML 10 ML VIAL SQ SCH ×2 (07:35→21:55)
[2016-08-12 09:04] LABS: Anisocytosis Slight; Basophils % (A) 0 %; CH 28.9; CHCM 31.8; Eosinophils # (A) 0.1 k/uL (0-0.7); Eosinophils % (A) 2 %; HCT 30.1 % (34.0-46.0); HDW 2.48; HGB 9.5 gm/dL (11.4-16.0); Luc # (Auto) 0.17; Luc % (Auto) 2; Lymphocytes # (A) 0.7 k/uL (1.0-4.8); Lymphocytes % (A) 10 %; MCH 28.7 pg (25.0-35.0); MCHC 31.4 g/dL (31.0-37.0); MCV 91.4 fL (80.0-100.0); Mean Platelet Volume 8.3; Monocytes # (A) 0.3 k/uL (0-1.0); Monocytes % (A) 5 %; Neutrophils % (A) 81 %; WBC 7.4 k/uL (3.8-10.6); WBC (Perox) 8.04
[2016-08-12 09:38] LABS: Potassium 4.5 mmol/L (3.5-5.1)
[2016-08-12] MEDS: HYDROcodone/APAP 15 ML SOLUTION PO PRN (11:14)
[2016-08-12] MEDS: VITAMIN E (DL,TOCOPHERYL ACET) 400 UNIT CAP PO SCH (11:14)
[2016-08-12 12:16] LABS: Glucose,Whole Blood 180 mg/dL (75-99)
--- NOTE | 2016-08-12 13:38 | P.PN ---
Subjective Principal diagnosis: Urinary tract infection Patient is a 66-year-old female, patient of Dr. Cruz in the outpatient setting with medical history significant for coronary artery disease , diabetes mellitus, hyperlipidemia, hypertension, hypothyroidism, diverticulitis, rheumatic fever, arthritis, morbid obesity, and gout. Patient has also had evidence of chronic cellulitis to right lower extremity for approximately 2 years. Patient presented to the emergency department with complaints of nauseous and having chills. Patient was found to be sepsic from urinary tract infection. Patient was started on IV Levaquin and admitted to the medical floor. Patient was evaluated by infectious disease service and IV antibiotics was changed to ceftriaxone. Final urine culturepositive for E. coli. Blood cultures with no growth after 48 hours. Upon evaluation, patient complains of feeling tired. Patient reports chills but no sweats. Patient complains of mild burning to her right foot. Denies nausea , vomiting, shortness of breath, chest pain, diarrhea or constipation. Afebrile. No evidence of leukocytosis. Creatinine improved to 1.41. Objective - Vital Signs Vital signs: Vital Signs Temp 98.0 F 08/12/16 07:00 Pulse 61 08/12/16 07:00 Resp 16 08/12/16 07:00 BP 152/69 08/12/16 07:00 Pulse Ox 97 08/12/16 07:00 Intake & Output 08/11/16 08/12/16 08/12/16 18:59 06:59 18:59 Output Total 1500 Balance -1500 Weight 152 kg 151.5 kg Output: Urine 1500 Uretheral (Lynne) 800 Other: Voiding Method Indwelling Catheter Indwelling Catheter Toilet # Voids 2 # Bowel Movements 0 - Exam GENERAL: Pt awake and alert, well-nourished, appears in no apparent distress. HEAD: Atraumatic, normocephalic. EYES: Pupils equal and round. ENT: Moist mucous membranes. NECK:Supple without lymphadenopathy or JVD. LUNGS: Breath sounds clear to auscultation bilaterally. No wheezes, rales, or rhonchi. HEART: Heart S1, S2, no S3 or S4. Regular rate and rhythm. No murmurs, rubs or gallops. ABDOMEN: Soft, morbidly obese, nontender, nondistended, normoactive bowel sounds. EXTREMITIES: 2+ peripheral pulses. 1+ edema to bilateral lower extremities. No calf tenderness. Dressing to right lower extremity intact. NEUROLOGICAL: Pt oriented x 3. Cranial nerves II through XII grossly intact. Decreased strength to upper and lower extremities. PSYCH: Normal mood, normal affect. - Labs CBC & Chem 7: 08/12/16 08:36 08/12/16 08:36 Labs: Abnormal Lab Results - Last 24 Hours (Table) 08/11/16 08/11/16 08/12/16 Range/Units 16:59 21:10 08:36 RBC 3.30 L (3.80-5.40) m/uL Hgb 9.5 L (11.4-16.0) gm/dL Hct 30.1 L (34.0-46.0) % RDW 16.0 H (11.5-15.5) % Plt Count 133 L (150-450) k/uL Lymphocytes # 0.7 L (1.0-4.8) k/uL BUN (7-17) mg/dL Creatinine (0.52-1.04) mg/dL Glucose (74-99) mg/dL POC Glucose (mg/dL) 109 H 122 H (75-99) mg/dL 08/12/16 08/12/16 Range/Units 08:36 12:15 RBC (3.80-5.40) m/uL Hgb (11.4-16.0) gm/dL Hct (34.0-46.0) % RDW (11.5-15.5) % Plt Count (150-450) k/uL Lymphocytes # (1.0-4.8) k/uL BUN 34 H (7-17) mg/dL Creatinine 1.41 H (0.52-1.04) mg/dL Glucose 172 H (74-99) mg/dL POC Glucose (mg/dL) 180 H (75-99) mg/dL Assessment and Plan Plan: Impression and plan: 1. Sepsis suspect secondary to urinary tract infection. Final urine culture positive for E. coli. Continue antibiotics per infectious disease service. 2. Cellulitis to right foot. Continue local wound care. 3. Acute renal failure, suspect secondary to sepsis, improved. Continue IV hydration. 3. Anemia suspect secondary to chronic disease. 4. Chronic renal failure, stage III. 5. Diabetes mellitus, insulin requiring, uncontrolled. Hemoglobin A1c 9. Continue Levemir and Humalog sliding scale. Continue consistent carbohydrate diet. 6. Coronary artery disease with history of coronary artery bypass grafting. 7. History of hyperlipidemia. 8. Hypertension. Continue metoprolol. Continue Imdur. 9. Hypothyroidism. Continue levothyroxine. 10. History of diverticulitis. 11. History of rheumatic fever. 12. History of osteoarthritis to multiple joints. 13. History of gout. 14. Morbid obesity, BMI 58.5. 15. GI prophylaxis. Continue Pepcid. 16. DVT prophylaxis. Continue subcu heparin. Patient has been evaluated by physical therapy was recommended home with home care and patient may benefit from rolling walker. The above impression and plan have been discussed and directed by Dr. Cruz. Munira AGUILERA acting as scribe for Dr. Cruz.
[2016-08-12 17:10] LABS: Glucose,Whole Blood 119 mg/dL (75-99)
[2016-08-12 21:12] LABS: Glucose,Whole Blood 114 mg/dL (75-99)
[2016-08-12] MEDS: GABAPENTIN 400 MG CAP PO SCH (21:55)
[2016-08-12] MEDS: FAMOTIDINE 20 MG TAB PO SCH (21:55)
--- NOTE | 2016-08-12 22:30 | P.PN ---
Subjective Principal diagnosis: sepsis This is 66-year-old . She gives history that for a long time she has been very tired to the point where she can hardly put 1 foot in front of the other. She also states that she has had intermittent nausea with persistent lack of appetite. She states she only eats one meal in the evening daily. She is diabetic and she states her blood sugars are running in the 200+ at home. She states she was placed on Synthroid along time ago for these symptoms which did not seem to make any difference. She now states she has had fever on and off for the last couple of weeks. She states on Wednesday evening she took a shower and she got so cold with rigors and she couldn't stop shaking and her family brought her into [facility] emergency center for evaluation. Patient also states for the past 2 years she has had problems with redness to the right lower leg and she has been on Kenalog cream for the past 3 months. She denies any recent antibiotics and to the legs. She does complain of pressure to the lower abdominal area and pain with urination. She does states she urinates frequently depending on when she takes her water pill. She also states her urine has been smelling terrible. Her white count was 18.7 with temperature of 103.0. BUN 29 creatinine 1.2, lactic acid 2.2, albumin 3.8. Urinalysis was cloudy, blood trace, nitrate positive, leukoesterase moderate, WBC is 10, bacteria few. Urine culture is showing gram-negative bacilli greater than 100,000 colonies. Blood cultures showing no growth at 24 hours. Chest x-ray showed no focal pneumonia with mild pulmonary vascular congestion and cardiomegaly. Patient was started on Levaquin and admitted to the [facility] floor. At this time, patient states she is not feeling much improvement. Patient is notwfeeling considerably better with fluid resuscitation, antibiotic therapy with Rocephin and pain control. She is feeling considerably better. Her right leg is without significant tenderness and she has no difficulty with the wrap is been in place. There's been no open ulcerations or drainage. Objective - Vital Signs Vital signs: Vital Signs Temp 97.2 F L 08/12/16 15:00 Pulse 63 08/12/16 15:00 Resp 16 08/12/16 15:00 BP 142/89 08/12/16 15:00 Pulse Ox 95 08/12/16 15:00 Intake & Output 08/12/16 08/12/16 08/13/16 06:59 18:59 06:59 Output Total 1500 Balance -1500 Weight 151.5 kg Output: Urine 1500 Uretheral (Lynne) 800 Other: Voiding Method Indwelling Catheter Toilet # Voids 2 4 2 - Exam Gen: This is a super morbidly obese 66-year-old female. She appears to be in no acute distress. HEENT: Head is atraumatic, normocephalic. Pupils equal, round. Sclerae is anicteric. Conjunctiva pink. Mucous members of the mouth are moist. Patient is edentulous. No thrush noted. NECK: Supple. No JVD. No lymphadenopathy. No thyromegaly. LUNGS: Clear to auscultation. No wheezes or rhonchi. No intercostal retractions. HEART: Regular rate and rhythm. No murmur. ABDOMEN: Morbidly obese Soft. Bowel sounds are present. No masses. Minimal suprapubic tenderness. EXTREMITIES: 1+ pedal edema. the right lower extremity. Has a dressings removed. There is ongoing edema which is not much different than the left leg. There is no distinct erythema. No open ulcerations. It is not tender. NEUROLOGICAL: Patient is awake, alert and oriented x3 - Labs CBC & Chem 7: 08/12/16 08:36 08/12/16 08:36 Labs: Abnormal Lab Results - Last 24 Hours (Table) 08/12/16 08/12/16 08/12/16 Range/Units 08:36 08:36 12:15 RBC 3.30 L (3.80-5.40) m/uL Hgb 9.5 L (11.4-16.0) gm/dL Hct 30.1 L (34.0-46.0) % RDW 16.0 H (11.5-15.5) % Plt Count 133 L (150-450) k/uL Lymphocytes # 0.7 L (1.0-4.8) k/uL BUN 34 H (7-17) mg/dL Creatinine 1.41 H (0.52-1.04) mg/dL Glucose 172 H (74-99) mg/dL POC Glucose (mg/dL) 180 H (75-99) mg/dL 08/12/16 08/12/16 Range/Units 17:08 21:10 RBC (3.80-5.40) m/uL Hgb (11.4-16.0) gm/dL Hct (34.0-46.0) % RDW (11.5-15.5) % Plt Count (150-450) k/uL Lymphocytes # (1.0-4.8) k/uL BUN (7-17) mg/dL Creatinine (0.52-1.04) mg/dL Glucose (74-99) mg/dL POC Glucose (mg/dL) 119 H 114 H (75-99) mg/dL Laboratory Results WBC 7.4 k/uL (3.8-10.6) 08/12/16 08:36 RBC 3.30 m/uL (3.80-5.40) L 08/12/16 08:36 Hgb 9.5 gm/dL (11.4-16.0) L 08/12/16 08:36 Hct 30.1 % (34.0-46.0) L 08/12/16 08:36 MCV 91.4 fL (80.0-100.0) 08/12/16 08:36 MCH 28.7 pg (25.0-35.0) 08/12/16 08:36 MCHC 31.4 g/dL (31.0-37.0) 08/12/16 08:36 RDW 16.0 % (11.5-15.5) H 08/12/16 08:36 Plt Count 133 k/uL (150-450) L 08/12/16 08:36 Neutrophils % 81 % 08/12/16 08:36 Lymphocytes % 10 % 08/12/16 08:36 Monocytes % 5 % 08/12/16 08:36 Eosinophils % 2 % 08/12/16 08:36 Basophils % 0 % 08/12/16 08:36 Neutrophils # 6.0 k/uL (1.3-7.7) 08/12/16 08:36 Lymphocytes # 0.7 k/uL (1.0-4.8) L 08/12/16 08:36 Monocytes # 0.3 k/uL (0-1.0) 08/12/16 08:36 Eosinophils # 0.1 k/uL (0-0.7) 08/12/16 08:36 Basophils # 0.0 k/uL (0-0.2) 08/12/16 08:36 Anisocytosis Slight 08/12/16 08:36 Sodium 141 mmol/L (137-145) 08/12/16 08:36 Potassium 4.5 mmol/L (3.5-5.1) 08/12/16 08:36 Chloride 102 mmol/L (98-107) 08/12/16 08:36 Carbon Dioxide 27 mmol/L (22-30) 08/12/16 08:36 Anion Gap 12 mmol/L 08/12/16 08:36 BUN 34 mg/dL (7-17) H 08/12/16 08:36 Creatinine 1.41 mg/dL (0.52-1.04) H 08/12/16 08:36 Est GFR (MDRD) Af Amer 45 (>60 ml/min/1.73 sqM) 08/12/16 08:36 Est GFR (MDRD) Non-Af 37 (>60 ml/min/1.73 sqM) 08/12/16 08:36 Glucose 172 mg/dL (74-99) H 08/12/16 08:36 POC Glucose (mg/dL) 114 mg/dL (75-99) H 08/12/16 21:10 POC Glu [place] BEATRIZ Pam Rivera 08/12/16 21:[address] Glu mg/dL 212 mg/dL 08/10/16 04:00 Hemoglobin A1c 9.0 % (4.2-6.1) H 08/10/16 04:00 Plasma Lactic Acid Garcia 1.1 mmol/L (0.7-2.0) 08/11/16 09:42 Calcium 9.0 mg/dL (8.4-10.2) 08/12/16 08:36 Total Bilirubin 1.3 mg/dL (0.2-1.3) 08/10/16 04:00 AST 27 U/L (14-36) 08/10/16 04:00 ALT 30 U/L (9-52) 08/10/16 04:00 Alkaline Phosphatase 97 U/L (38-126) 08/10/16 04:00 Total Protein 7.0 g/dL (6.3-8.2) 08/10/16 04:00 Albumin 3.8 g/dL (3.5-5.0) 08/10/16 04:00 Urine Color Yellow 08/10/16 04:30 Urine Appearance Cloudy (Clear) H 08/10/16 04:30 Urine pH 5.0 (5.0-8.0) 08/10/16 04:30 Ur Specific [place] 1.011 (1.001-1.035) 08/10/16 04:30 Urine Protein Negative (Negative) 08/10/16 04:30 Urine Glucose (UA) Negative (Negative) 08/10/16 04:30 Urine Ketones Negative (Negative) 08/10/16 04:30 Urine Blood Trace (Negative) H 08/10/16 04:30 Urine Nitrate Positive (Negative) H 08/10/16 04:30 Urine Bilirubin Negative (Negative) 08/10/16 04:30 Urine Urobilinogen <2.0 mg/dL (<2.0) 08/10/16 04:30 Ur Leukocyte Esterase Moderate (Negative) H 08/10/16 04:30 Urine RBC 3 /hpf (0-5) 08/10/16 04:30 Urine WBC 10 /hpf (0-5) H 08/10/16 04:30 Ur Squamous Epith Cells 1 /hpf (0-4) 08/10/16 04:30 Amorphous Sediment Rare /hpf (None) H 08/10/16 04:30 Urine Bacteria Few /hpf (None) H 08/10/16 04:30 Hyaline Casts 5 /lpf (0-2) H 08/10/16 04:30 Urine Mucus Rare /hpf (None) H 08/10/16 04:30 Influenza Type A RNA Not Detected (Not Detectd) 08/10/16 05:40 Influenza Type B (PCR) Not Detected (Not Detectd) 08/10/16 05:40 Assessment and Plan Plan: 66-year-old woman presents to Hospital of evidence of sepsis with high-grade fever chills rigors and feeling very poorly. There was concerns to his cellulose the right lower extremity however this is doing quite well this point in time the premorbid chronic edema and lymphedema. Shortness of evidence of sepsis from the urinary system with Escherichia coli being isolated from her urine. Unfortunately blood cultures are negative at this point in time. She is doing extremely well with current resuscitation efforts. Fortunately she has a highly susceptible E. coli and will be discharged home with oral ciprofloxacin therapy to complete 10 days of therapy.
[2016-08-13] MEDS: HEPARIN SODIUM,PORCINE 5,000 UNIT/ML 1 ML VIAL SQ SCH ×2 (00:01→09:04)
[2016-08-13] MEDS: LEVOTHYROXINE 50 MCG TAB PO SCH (06:29)
[2016-08-13 07:25] LABS: Glucose,Whole Blood 90 mg/dL (75-99)
[2016-08-13] MEDS: INSULIN LISPRO (humaLOG) 300 UNIT/3 ML VIAL SQ SCH ×4 (07:41→13:10)
[2016-08-13] MEDS: cefTRIAXone 2,000 MG in SODIUM CHLORIDE 0.9% 100 ML IVPB SCH (09:04)
[2016-08-13] MEDS: ISOSORBIDE MONONITRATE ER 30 MG TAB.ER.24H PO SCH (09:06)
[2016-08-13] MEDS: POTASSIUM CHLORIDE ER 10 MEQ TAB.ER.PRT PO SCH (09:07)
[2016-08-13] MEDS: METOPROLOL TARTRATE 50 MG TAB PO SCH (09:07)
[2016-08-13] MEDS: SERTRALINE 100 MG TAB PO SCH (09:07)
[2016-08-13] MEDS: OXYBUTYNIN CHLORIDE 5 MG TAB PO SCH (09:07)
[2016-08-13] MEDS: CLOTRIMAZOLE 1% CREAM 15 GM TUBE TOPICAL SCH (09:56)
[2016-08-13] MEDS: INSULIN DETEMIR 100 UNIT/ML 10 ML VIAL SQ SCH (09:56)
--- NOTE | 2016-08-13 12:34 | P.DS ---
Providers Date of admission: 08/10/16 05:12 Expected date of discharge: 08/13/16 Attending physician: Marcelino Cruz Consults: 08/11/16 08:32 Consult Physician Urgent Consulting Provider: Cj Jansen Consult Reason/Comments: Fever, cellulitis, uti Do you want consulting provider notified?: Yes Primary care physician: [facility] Course: Patient is a 66-year-old female, patient of Dr. Cruz in the outpatient setting with medical history significant for coronary artery disease , diabetes mellitus, insulin requiring, hyperlipidemia, hypertension, hypothyroidism, diverticulitis, rheumatic fever, arthritis, morbid obesity, chronic edema and lymphedema to right lower extremity, and gout. Patient presented to the emergency department with complaints of nauseous and having chills. Patient was found to have evidence of sepsis from the urinary system with E. coli being isolated from her urine. Blood cultures negative. Patient was evaluated by Dr. Jansen from infectious disease service and improved with IV antibiotics in the form of ceftriaxone and fluid hydration. Patient was felt stable to be discharged to home on oral ciprofloxacin to complete 10 day therapy. Oral Lasix and oral allopurinol was discontinued during hospital stay and will likely need to be resumed in the outpatient setting. Discharge diagnoses: 1. Sepsis suspect secondary to urinary tract infection. Final urine culture positive for E. coli. 2. Chronic edema and lymphedema to right lower extremity. 3. Acute renal failure, suspect secondary to sepsis, improved. 3. Anemia suspect secondary to chronic disease. 4. Chronic renal failure, stage III. 5. Diabetes mellitus, insulin requiring, uncontrolled. Hemoglobin A1c 9. 6. Coronary artery disease with history of coronary artery bypass grafting. 7. History of hyperlipidemia. 8. Hypertension. 9. Hypothyroidism. 10. History of diverticulitis. 11. History of rheumatic fever. 12. History of osteoarthritis to multiple joints. 13. History of gout. 14. Morbid obesity, BMI 58.5. The above impression and plan have been discussed and directed by Dr. Cruz. Munira AGUILERA acting as scribe for Dr. Cruz. Pertinent Studies: Chest x-ray Patient Condition at Discharge: Good Plan - Discharge Summary New Discharge Prescriptions: Ciprofloxacin HCl [Cipro] 500 mg PO Q12HR #20 tablet Clotrimazole Cream [Lotrimin Cream] 1 applic TOPICAL BID #1 bottle Discharge Medication List Aspirin 81 mg PO DAILY 08/10/16 [History] Atorvastatin [Lipitor] 40 mg PO DAILY 08/10/16 [History] Gabapentin [Neurontin] 400 mg PO HS 08/10/16 [History] Hydrocodone/Acetaminophen [Hydrocodon-Acetamin 7.5-325/15] 15 ml PO Q6HR PRN 04/18 [History] Insulin Aspart [NovoLOG] 30 unit SQ AC-TID 08/10/16 [History] Insulin Detemir [Levemir] 50 unit SQ BID 08/10/16 [History] Isosorbide Mononitrate [Isosorbide Mononitrate ER] 30 mg PO DAILY 08/10/16 [ History] Levothyroxine Sodium [Tirosint] 50 mcg PO DAILY 08/10/16 [History] Metoprolol Tartrate [Lopressor] 50 mg PO DAILY 08/10/16 [History] Oxybutynin Chloride 5 mg PO BID 08/10/16 [History] Potassium Chloride [Klor-Con 10] 10 meq PO DAILY 08/10/16 [History] Sertraline [Zoloft] 100 mg PO DAILY 08/10/16 [History] Vitamin E 400 unit PO DAILY 08/10/16 [History] Ciprofloxacin HCl [Cipro] 500 mg PO Q12HR #20 tablet 08/12/16 [Rx] Clotrimazole Cream [Lotrimin Cream] 1 applic TOPICAL BID #1 bottle 08/13/16 [Rx] Follow up Appointment(s)/Referral(s): Marcelino Cruz Jr, DO [Primary Care Provider] - 08/18/16 11:45 am Patient Instructions/Handouts: Urinary Tract Infection in Women (DC), Cellulitis (DC) Activity/Diet/Wound Care/Special Instructions: Cardiac, diabetic diet. Diabetic folder given. Cpap at night as ordered. Discharge Disposition: HOME SELF-CARE
[2016-08-13 12:35] LABS: Glucose,Whole Blood 154 mg/dL (75-99)
[2016-08-13] MEDS: VITAMIN E (DL,TOCOPHERYL ACET) 400 UNIT CAP PO SCH (13:10)
[2016-08-13 14:02] VITALS: BP 146/71; PULSE 64; RESP 18; TEMP 96.6
--- NOTE | 2016-08-13 19:08 | P.PN ---
Subjective Principal diagnosis: sepsis This is 66-year-old . She gives history that for a long time she has been very tired to the point where she can hardly put 1 foot in front of the other. She also states that she has had intermittent nausea with persistent lack of appetite. She states she only eats one meal in the evening daily. She is diabetic and she states her blood sugars are running in the 200+ at home. She states she was placed on Synthroid along time ago for these symptoms which did not seem to make any difference. She now states she has had fever on and off for the last couple of weeks. She states on Wednesday evening she took a shower and she got so cold with rigors and she couldn't stop shaking and her family brought her into [facility] emergency center for evaluation. Patient also states for the past 2 years she has had problems with redness to the right lower leg and she has been on Kenalog cream for the past 3 months. She denies any recent antibiotics and to the legs. She does complain of pressure to the lower abdominal area and pain with urination. She does states she urinates frequently depending on when she takes her water pill. She also states her urine has been smelling terrible. Her white count was 18.7 with temperature of 103.0. BUN 29 creatinine 1.2, lactic acid 2.2, albumin 3.8. Urinalysis was cloudy, blood trace, nitrate positive, leukoesterase moderate, WBC is 10, bacteria few. Urine culture is showing gram-negative bacilli greater than 100,000 colonies. Blood cultures showing no growth at 24 hours. Chest x-ray showed no focal pneumonia with mild pulmonary vascular congestion and cardiomegaly. Patient was started on Levaquin and admitted to the [facility] floor. At this time, patient states she is not feeling much improvement. Patient is notwfeeling considerably better with fluid resuscitation, antibiotic therapy with Rocephin and pain control. She is feeling considerably better. Her right leg is without significant tenderness and she has no difficulty with the wrap is been in place. There's been no open ulcerations or drainage. Objective - Vital Signs Vital signs: Vital Signs Temp 96.6 F L 08/13/16 14:01 Pulse 64 08/13/16 14:01 Resp 18 08/13/16 14:01 BP 146/71 08/13/16 14:01 Pulse Ox 95 08/13/16 14:01 Intake & Output 08/13/16 08/13/16 08/14/16 06:59 18:59 06:59 Weight 151.5 kg Other: Voiding Method Toilet Toilet Bedside Commode # Voids 1 2 - Exam Gen: This is a super morbidly obese 66-year-old female. She appears to be in no acute distress. HEENT: Head is atraumatic, normocephalic. Pupils equal, round. Sclerae is anicteric. Conjunctiva pink. Mucous members of the mouth are moist. Patient is edentulous. No thrush noted. NECK: Supple. No JVD. No lymphadenopathy. No thyromegaly. LUNGS: Clear to auscultation. No wheezes or rhonchi. No intercostal retractions. HEART: Regular rate and rhythm. No murmur. ABDOMEN: Morbidly obese Soft. Bowel sounds are present. No masses. Minimal suprapubic tenderness. EXTREMITIES: 1+ pedal edema. the right lower extremity. Has a dressings removed. There is ongoing edema which is not much different than the left leg. There is no distinct erythema. No open ulcerations. It is not tender. NEUROLOGICAL: Patient is awake, alert and oriented x3 - Labs CBC & Chem 7: 08/12/16 08:36 08/12/16 08:36 Labs: Abnormal Lab Results - Last 24 Hours (Table) 08/12/16 08/13/16 Range/Units 21:10 12:16 POC Glucose (mg/dL) 114 H 154 H (75-99) mg/dL Assessment and Plan Plan: 66-year-old woman presents to Hospital of evidence of sepsis with high-grade fever chills rigors and feeling very poorly. There was concerns to his cellulose the right lower extremity however this is doing quite well this point in time the premorbid chronic edema and lymphedema. Shortness of evidence of sepsis from the urinary system with Escherichia coli being isolated from her urine. Unfortunately blood cultures are negative at this point in time. She is doing extremely well with current resuscitation efforts. Fortunately she has a highly susceptible E. coli and will be discharged home with oral ciprofloxacin therapy to complete 10 days of therapy. The antibiotic was sent to her pharmacy. Follow-up in the office if she has any further needs. Good care to her dry skin in her lower extremities will help prevent further difficulties as well as some compression therapy
== END 2016-08-13 15:06 | disposition home or self-care (01) | DRG 872 ==
LOC: EC 03:29 → 4MS4W 05:12 → 5ONC 08-12 12:10 → 4MS4W 08-12 12:11
PROVIDERS: ADMIT Family Medicine; ATTEND Family Medicine
DX: A41.9 Sepsis, unspecified organism (principal); N17.9 Acute kidney failure, unspecified; E11.22 Type 2 diabetes mellitus with diabetic chronic kidney disease; Z68.44 Body mass index [BMI] 60.0-69.9, adult; N39.0 Urinary tract infection, site not specified; L03.115 Cellulitis of right lower limb; N18.3 Chronic kidney disease, stage 3 (moderate); E66.01 Morbid (severe) obesity due to excess calories; I12.9 Hypertensive chronic kidney disease with stage 1 through stage 4 chronic kidney disease, or unspecified chronic kidney disease; B96.20 Unspecified Escherichia coli [E. coli] as the cause of diseases classified elsewhere; D63.8 Anemia in other chronic diseases classified elsewhere; I25.10 Atherosclerotic heart disease of native coronary artery without angina pectoris; E78.5 Hyperlipidemia, unspecified; E03.9 Hypothyroidism, unspecified; M19.90 Unspecified osteoarthritis, unspecified site; M10.9 Gout, unspecified; G47.33 Obstructive sleep apnea (adult) (pediatric); I89.0 Lymphedema, not elsewhere classified; Z98.84 Bariatric surgery status; Z90.710 Acquired absence of both cervix and uterus; Z90.49 Acquired absence of other specified parts of digestive tract; Z95.1 Presence of aortocoronary bypass graft; Z71.3 Dietary counseling and surveillance; Z79.82 Long term (current) use of aspirin; Z79.4 Long term (current) use of insulin; Z79.899 Other long term (current) drug therapy
CPT/HCPCS: 36415; 71020; 80048; 80053; 81001; 83036; 83605; 85025; 85027; 87040; 87077; 87086; 87186; 87502; 96361; 96365; 96375; 99285

== ENCOUNTER → 2017-11-01 | Outpatient (CLI) | payer MEDICARE, OTHER ==
--- NOTE | 2017-11-03 09:15 | MM ---
Reason for exam: screening (asymptomatic). Last mammogram was performed 1 year and 6 months ago. History: Patient is postmenopausal. Family history of breast cancer in aunt, breast cancer in mother at age 62, and breast cancer in relative. Cyst aspiration of the right breast, 2012. Physical Findings: A clinical breast exam by your physician is recommended on an annual basis and results should be correlated with mammographic findings. MG 3D Screening Mammo W/Cad Bilateral CC and MLO view(s) were taken. Prior study comparison: May 18, 2016, bilateral MG 3d diag mammo w/cad KEVIN. January 28, 2015, bilateral MG diagnostic mammo w CAD KEVIN. There are scattered fibroglandular densities. No significant changes when compared with prior studies. ASSESSMENT: Benign, BI-RAD 2 RECOMMENDATION: Routine screening mammogram of both breasts in 1 year.
== END | disposition home or self-care (01) ==
LOC: RADMAMWWP 14:07
PROVIDERS: ATTEND Family Medicine
DX: Z12.31 Encounter for screening mammogram for malignant neoplasm of breast (principal); Z80.3 Family history of malignant neoplasm of breast
CPT/HCPCS: 77063; 77067

== ENCOUNTER → 2018-05-19 | Outpatient (CLI) | payer MEDICARE, OTHER ==
--- NOTE | 2018-05-19 19:42 | CONS ---
CONSULTATION DATE OF SERVICE: 05/19/2018 68-year-old lady has been evaluated in the [facility] for obstructive sleep apnea- hypopnea syndrome. HISTORY OF PRESENT ILLNESS/SLEEP-WAKE EVALUATION: Patient has been diagnosed with obstructive sleep apnea about 12 years ago. Since that time she is on treatment with CPAP and she is using equipment every night for the whole night. Presently, she started to have more problems with the machine, started to have awakenings from sleep. Sleep schedule from around midnight until around 11:00 a.m. She does not have problems usually with falling asleep, although she has TV set in bedroom. She sleeps on the side position by herself and wakes up from sleep several times with nocturia, grinding teeth, dry mouth, episodes of palpitation. In the morning she wakes up tired, falling asleep during the day, has problems with memory, irritability, depression, claustrophobia. [place] Sleepiness Scale is 6. PAST MEDICAL HISTORY: Positive for hypertension, coronary artery disease, hypothyroidism, gout, diabetes mellitus, hyperlipidemia, diverticulitis. PAST SURGICAL HISTORY: Hysterectomy, CABG surgery for carpal tunnel syndrome. MEDICATIONS: Oxybutynin, levothyroxine, Zoloft, Isosorbide, Lopressor, atorvastatin, Lasix, allopurinol, aspirin, Neurontin, Lortab, Levemir. SOCIAL HISTORY: Negative for smoking. Quit using alcohol. FAMILY HISTORY: Hypertension, heart problems, hyperlipidemia, epilepsy, stroke, arthritis, bronchitis, lung problems, sleep apnea, snoring, pneumonia, headaches, cancer, acid reflux, ulcers, liver problems, diabetes, thyroid problems, mental illness, restless legs. REVIEW OF SYSTEMS: Awakenings from sleep, tiredness and sleepiness during the day at the present time, swelling of the legs. PHYSICAL EXAM: GENERAL lady without distress. VITAL SIGNS BP 128/65, HR 72, RR 16, height 5-0, weight 236, body mass index 65.6. Temperature 97.3, oxygen saturation room air 95%. HEENT PERRLA, EOMI, evaluation of oropharynx showed moderately low position of soft palate, wide pillars, small oropharyngeal air space. Wide neck 17-2/3 inches in circumference. NECK Supple, no JVD. Thyroid is not palpable. LUNGS Clear to percussion and to auscultation. Good air exchange. No wheezing or rhonchi. HEART S1, S2 regular. No murmurs, gallops, or rubs. ABDOMEN Obese. Soft and nontender. Bowel sounds are present. No organomegaly appreciated. EXTREMITIES 2+ bilateral ankle edema. No clubbing or cyanosis. ASSISTANT MANAGER Awake, alert, and oriented X3. Cranial nerves 2 to 7 intact. There is no fasciculation or atrophy. noted. No focal deficits observed. IMPRESSION: 1. Obstructive sleep apnea-hypopnea syndrome for about 12 years. The patient continued to use his CPAP equipment every night. Significant changing of weight down after bariatric surgery and then up. Presently patient has tiredness and awakenings from sleep while on treatment with CPAP. 2. Obesity. Again, significant changes of weight down about 100 pounds and then up about 40 pounds. 3. Hypertension. 4. Coronary artery disease, status post CABG. 5. Hypothyroidism. 6. Gout. 7. Diabetes mellitus. 8. Hyperlipidemia. 9. Diverticulitis. 10.Status post hysterectomy. 11.Carpal tunnel syndrome, status post surgical treatment for carpal tunnel syndrome. PLAN: 1. CPAP titration for re-evaluation of effective CPAP pressure at the present time. 2. Preferable position during sleep on the side. 3. Losing weight. 4. Sleep hygiene with regular time in bed for at least 8 hours. 5. No driving if patient feels any sleepiness. 6. I will see patient for follow up visit to explain results of testing and following plan. Thank you very much for referring this patient for consultation. Sincerely, Alfredo Vila MD, PhD, FAASM Diplomat of [place] [employer] [place] [employer] [facility] [place] MMODL / MOONN: [id number] /
== END ==
LOC: SLEEP 14:55
PROVIDERS: ATTEND Internal Medicine
DX: G47.33 Obstructive sleep apnea (adult) (pediatric) (principal); E66.9 Obesity, unspecified; I10 Essential (primary) hypertension; I25.10 Atherosclerotic heart disease of native coronary artery without angina pectoris; E03.9 Hypothyroidism, unspecified; M10.9 Gout, unspecified; E11.9 Type 2 diabetes mellitus without complications; E78.5 Hyperlipidemia, unspecified; K57.92 Diverticulitis of intestine, part unspecified, without perforation or abscess without bleeding; G56.00 Carpal tunnel syndrome, unspecified upper limb; Z98.890 Other specified postprocedural states; Z90.710 Acquired absence of both cervix and uterus; Z98.61 Coronary angioplasty status; Z99.89 Dependence on other enabling machines and devices; Z98.84 Bariatric surgery status; Z68.44 Body mass index [BMI] 60.0-69.9, adult; Z79.899 Other long term (current) drug therapy; Z79.82 Long term (current) use of aspirin
CPT/HCPCS: 99211

== ENCOUNTER → 2019-04-26 | Outpatient (CLI) | payer MEDICARE, OTHER ==
--- NOTE | 2019-04-28 13:34 | MM ---
Reason for exam: screening (asymptomatic). Last mammogram was performed 1 year and 6 months ago. History: Patient is postmenopausal. Family history of breast cancer in aunt, breast cancer in mother at age 62, and breast cancer in relative. Cyst aspiration of the right breast, 2012. Physical Findings: A clinical breast exam by your physician is recommended on an annual basis and results should be correlated with mammographic findings. MG 3D Screening Mammo W/Cad Bilateral CC, MLO, and XCCL view(s) were taken. Prior study comparison: November 01, 2017, bilateral MG 3d screening mammo w/cad. May 18, 2016, bilateral MG 3d diag mammo w/cad KEVIN. There are scattered fibroglandular densities. No significant changes when compared with prior studies. ASSESSMENT: Benign, BI-RAD 2 RECOMMENDATION: Routine screening mammogram of both breasts in 1 year.
== END | disposition home or self-care (01) ==
LOC: RADMAMWWP 13:48
PROVIDERS: ATTEND Family Medicine
DX: Z12.31 Encounter for screening mammogram for malignant neoplasm of breast (principal)
CPT/HCPCS: 77063; 77067

== ENCOUNTER → 2019-06-13 | Outpatient (CLI) | payer MEDICARE, OTHER ==
--- NOTE | 2019-06-13 16:38 | CT ---
EXAMINATION TYPE: CT lumbar spine wo con DATE OF EXAM: 06/13/2019 4:22 PM COMPARISON: None HISTORY: Fall, low back pain. CT DLP: 2686.3 mGycm Automated exposure control for dose reduction was used. TECHNIQUE: Unenhanced CT of the lumbar spine was performed. Bone and soft tissue window settings are submitted as well as coronal and sagittal reconstructions. FINDINGS: Gastric lap band is partially visualized. Extensive atherosclerosis of the branch vessels o f the celiac artery. Extensive atherosclerosis of the SMA and distal abdominal aorta as well as its b ranches. Punctate benign granuloma of the liver is seen. Gallbladder appears surgically absent. Nonsp ecific dependent edema of the subcutaneous tissues of the central low back. Advanced multilevel degenerative disc disease of the lumbar spine. There is grade 1 anterolisthesis o f L4 on L5 likely due to hypertrophic facet change. No pars interarticularis defects. Multilevel inte rvertebral disc space narrowing, extensive endplate sclerosis, facet arthropathy, vacuum disc phenome non, posterior projecting osteophytes, and anterior projecting osteophytes are seen. There is a dextr oscoliosis of the lower lumbar spine on the sagittal images. No acute displaced fracture is seen of t he lumbar spine or vertebral body height loss. No widening of the sacroiliac joints. Degenerative josef nge of the sacroiliac joints is seen. L1-L2: There is a broad-based disc bulge that is right eccentric resulting in mild bilateral neural f oraminal narrowing. No discrete high-grade spinal canal stenosis. This would be better evaluated with MRI. L2-L3: Facet arthropathy, broad-based disc bulge and ligamentum flavum buckling create mild left and moderate neural foraminal narrowing and the appearance of moderate spinal canal stenosis. L3-L4: Severe spinal canal stenosis is seen as there is a broad-based disc bulge, ligamentum plate bu ckling and facet arthropathy. Severe left neural foraminal narrowing and moderate right neural forami nal narrowing are also present. L4-L5: There is disc uncovering and a broad-based disc bulge with facet arthropathy and ligamentum fl avum buckling creating severe left and mild right neural foraminal narrowing and severe spinal canal stenosis. L5-S1: Broad-based disc bulge is seen with questionable right paracentral disc herniation. This and f acet arthropathy as well as posterior projecting osteophytes create moderate to severe bilateral neur al foraminal narrowing. No spinal canal stenosis. Mild atrophy of the paraspinal musculature is incidentally seen. IMPRESSION: 1. Severe multilevel degenerative disc disease of the lumbar spine and grade 1 anterolisthesis of L4 on L5 likely degenerative from facet hypertrophy. 2. Degenerative disc disease create at least severe spinal canal stenosis at L3-L4 and L4-L5 as well as moderate spinal canal stenosis at L2-L3. Multilevel high-grade neural foraminal narrowing is also seen that would be better evaluated with MRI. Possible disc herniations at L3-S1 that would be better evaluated with MRI. 3. Dextroscoliosis of the lumbar spine.
--- NOTE | 2019-06-13 16:50 | CT ---
EXAMINATION TYPE: CT knee LT wo con DATE OF EXAM: 06/13/2019 COMPARISON: None HISTORY: Fall, left knee pain. CT DLP: 596.6 mGycm Automated exposure control for dose reduction was used. FINDINGS: Diffuse osseous demineralization is seen. Extensive atherosclerosis. Subcortical and subchondral cyst formation is seen of the tibial plateau and deep to the medial tibia l eminence. Opposing surface sclerosis is seen of the medial compartment with medial compartment join t space narrowing. Small marginal osteophytes are seen of the tricompartmental spaces. No acute displ aced fracture of the left knee is seen. No sizable suprapatellar joint effusion. No patellar dislocat ion. Evaluation of the ligaments and tendons are limited on CT. There is generalized mild muscular atrophy . Postsurgical changes are seen of the medial subcutaneous tissues with calcifications of the fascial planes. Venous varicosities are also incidentally noted. There is dependent soft tissue swelling med ially of the visualized lower extremity below the knee. IMPRESSION: 1. OPPOSING SURFACE SCLEROSIS OF THE MEDIAL FEMORAL CONDYLE AND TIBIAL PLATEAU COULD BE ON THE BASIS OF INSUFFICIENCY FRACTURE OR SUBCHONDRAL FRACTURE. THIS COULD ALSO BE ON THE BASIS OF ARTHROPATHY. MR I COULD EVALUATE FOR BONE MARROW EDEMA. NO ACUTE DISPLACED LEFT KNEE FRACTURE. 2. MODERATE TRICOMPARTMENTAL ARTHROPATHY. 3. DEPENDENT SUBCUTANEOUS EDEMA AND POSTSURGICAL CHANGE OF THE LEFT LOWER EXTREMITY.
== END | disposition home or self-care (01) ==
LOC: RADCTMAIN 16:01
PROVIDERS: ATTEND Family Medicine
DX: M48.061 Spinal stenosis, lumbar region without neurogenic claudication (principal); M51.36 Other intervertebral disc degeneration, lumbar region; M43.16 Spondylolisthesis, lumbar region; M41.86 Other forms of scoliosis, lumbar region; M17.12 Unilateral primary osteoarthritis, left knee; M05.562 Rheumatoid polyneuropathy with rheumatoid arthritis of left knee; Z98.890 Other specified postprocedural states; Z88.0 Allergy status to penicillin; Z88.1 Allergy status to other antibiotic agents; Z88.6 Allergy status to analgesic agent
CPT/HCPCS: 72131

== ENCOUNTER → 2021-03-10 | Outpatient (CLI) | payer MEDICARE, OTHER ==
[2021-03-10 14:46] LABS: Basophils % (A) 1 %; Eosinophils # (A) 0.2 k/uL (0-0.7); Eosinophils % (A) 3 %; HCT 31.7 % (34.0-46.0); HGB 10.1 gm/dL (11.4-16.0); Lymphocytes # (A) 0.9 k/uL (1.0-4.8); Lymphocytes % (A) 13 %; MCH 30.5 pg (25.0-35.0); MCHC 31.9 g/dL (31.0-37.0); MCV 95.7 fL (80.0-100.0); Mean Platelet Volume 8.2; Monocytes # (A) 0.3 k/uL (0-1.0); Monocytes % (A) 5 %; Neutrophils # (A) 5.3 k/uL (1.3-7.7); Neutrophils % (A) 77 %; Platelet Count 182 k/uL (150-450); RBC 3.31 m/uL (3.80-5.40); RDW 15.8 % (11.5-15.5); WBC 6.9 k/uL (3.8-10.6)
[2021-03-10 14:54] LABS: ALT 10 U/L (4-34); AST 20 U/L (14-36); African American GFR (CKD) 55 (>60 ml/min/1.73 sqM); Albumin 3.5 g/dL (3.5-5.0); Albumin/Globulin Ratio 1.2; Alkaline Phosphatase 89 U/L (38-126); Anion Gap 7 mmol/L; Blood Urea Nitrogen 29 mg/dL (7-17); Calcium 9.2 mg/dL (8.4-10.2); Carbon Dioxide 28 mmol/L (22-30); Chloride 104 mmol/L (98-107); Globulin 2.9 g/dL; Glucose 120 mg/dL (74-99); Non-African American GFR(CKD) 47 (>60 ml/min/1.73 sqM); Potassium 5.2 mmol/L (3.5-5.1); Sodium 139 mmol/L (137-145); Total Bilirubin 0.9 mg/dL (0.2-1.3); Total Protein 6.4 g/dL (6.3-8.2)
[2021-03-10 19:10] LABS: Chol/HDL Ratio 2.46; Cholesterol 113 mg/dL (0-200)
--- NOTE | 2021-03-11 15:12 | MM ---
Reason for exam: clinical finding. Last mammogram was performed 1 year and 10 months ago. History: Patient is postmenopausal. Family history of breast cancer in aunt, breast cancer in mother at age 62, and breast cancer in relative. Cyst aspiration of the right breast, 2012. Physical Findings: Nurse did not find any significant physical abnormalities on exam. MG 3D Diag Mammo W/Cad KEVIN Bilateral CC and MLO view(s) were taken. Prior study comparison: April 26, 2019, bilateral MG 3d screening mammo w/cad. November 01, 2017, bilateral MG 3d screening mammo w/cad. There are scattered fibroglandular densities. There are benign appearing vascular calcifications bilaterally. No significant new findings when compared with previous films. These results were verbally communicated with the patient and result sheet given to the patient on 03/10/21. ASSESSMENT: Benign, BI-RAD 2 RECOMMENDATION: Routine screening mammogram of both breasts in 1 year. Manage on a clinical basis with regard to nipple discharge.
== END | disposition home or self-care (01) ==
LOC: RADMAMWWP 13:22
PROVIDERS: ATTEND Family Medicine
DX: N64.89 Other specified disorders of breast (principal); Z78.0 Asymptomatic menopausal state; Z80.3 Family history of malignant neoplasm of breast
CPT/HCPCS: 80061; 80053; 84443; 85025; 77066; G0279; 77062

== ENCOUNTER 2021-11-16 17:09 | Emergency (ER) | payer OTHER ==
[2021-11-16 17:14] LABS: Glucose,Whole Blood 83 mg/dL (75-99)
[2021-11-16 17:19] VITALS: TEMP 97.9
[2021-11-16] MEDS ORDERED: DEXTROSE 50% SYRINGE 50 ML IVP STA (17:31)
[2021-11-16 17:32] LABS: Glucose,Whole Blood 46 mg/dL (75-99)
[2021-11-16 17:35] LABS: Basophils % (A) 0 %; Eosinophils # (A) 0.2 k/uL (0-0.7); Eosinophils % (A) 2 %; HGB 9.2 gm/dL (11.4-16.0); Hypochromasia Slight; Lymphocytes # (A) 0.9 k/uL (1.0-4.8); Lymphocytes % (A) 13 %; MCH 27.9 pg (25.0-35.0); MCHC 30.7 g/dL (31.0-37.0); MCV 90.7 fL (80.0-100.0); Mean Platelet Volume 8.2; Monocytes # (A) 0.4 k/uL (0-1.0); Monocytes % (A) 6 %; Neutrophils # (A) 5.3 k/uL (1.3-7.7); Neutrophils % (A) 76 %; Platelet Count 171 k/uL (150-450); RDW 15.4 % (11.5-15.5)
--- NOTE | 2021-11-16 17:36 | ED ---
General Adult HPI - General Chief complaint: Recheck/Abnormal Lab/Rx Stated complaint: Low blood sugar Time Seen by Provider: 11/16/21 17:15 Source: EMS Mode of arrival: ambulatory Limitations: no limitations - History of Present Illness Initial comments: Dictation was produced using [employer] dictation software. please excuse any grammatical, word or spelling errors. Chief Complaint: 71-year-old obese female, insulin-dependent diabetic presents emergency per for hyperglycemia History of Present Illness: Patient 71-year-old female she presents to emergency department for hypoglycemia. Patient is an insulin-dependent diabetic. She's been taking her insulin and has not been eating like she supposed to. She is still taking her long-acting and short-acting insulin. Patient denies any suicidal behavior. She states she does have some mild diffuse abdominal pain. When EMS was called patient's final blood glucose of 39. She is given 1 amp of dextrose with improvement of blood glucose 89. Patient has any fever. No, chills or night sweats. No vomiting or diarrhea. The ROS documented in this emergency department record has been reviewed and confirmed by me. Those systems with pertinent positive or negative responses have been documented in the HPI. All other systems are other negative and/or noncontributory. PHYSICAL EXAM: General Impression: Alert and oriented x3, not in acute distress HEENT: Normocephalic atraumatic, extra-ocular movements intact, pupils equal and reactive to light bilaterally, mucous membranes moist. Cardiovascular: Heart regular rate and rhythm Chest: Able to complete full sentences, no retractions, no tachypnea Abdomen: abdomen soft, non-tender, non-distended, no organomegaly Musculoskeletal: Pulses present and equal in all extremities, no peripheral edema Motor: no focal deficits noted Neurological: CN II-XII grossly intact, no focal motor or sensory deficits noted Skin: Intact with no visualized rashes Psych: Normal affect and mood ED course:-year-old female presents emergency department for hypoglycemia. She is a insulin-dependent diabetic. She's been taking her insulin inappropriately. She is taking her long and short acting insulin despite not having any oral int taryn. She states she'll had half a bagel chips and some coffee and still took her insulin vital signs upon arrival are within acceptable limits. Blood glucose upon arrival was 83. 30 minutes later his blood glucose was 46. Patient given an amp of dextrose and some oral glucose. Patient's hyperglycemia is secondary taking insulin without any glucose intake. Laboratory evaluation obtained. CBC, metabolic panel mostly unremarkable except for glucose of 44. Patient was given one push of dextrose. She was also given oral glucose. Patient observed in emergency department for approximately 3 hours patient is reevaluated bedside at 8:10 PM found to be in stable medical condition. Her blood sugar was rechecked and was 109. Patient be dispositioned to home. Her son is at the bedside. Her precautions discussed. Son told to provide patient with glucose if she starts to show signs of hypoglycemia. Otherwise return precautions discussed. Patient told to not take her insulin for the rest of the day. - Related Data Home Medications Medication Instructions Recorded Confirmed Aspirin 81 mg PO DAILY 08/10/16 11/16/21 Atorvastatin [Lipitor] 40 mg PO DAILY 08/10/16 11/16/21 INSULIN ASPART (NovoLOG) [NovoLOG 40 unit SQ AC-TID 08/10/16 11/16/21 (formulary)] Insulin Detemir (Levemir) [Levemir] 60 unit SQ BID 08/10/16 11/16/21 Isosorbide Mononitrate [Isosorbide 30 mg PO DAILY 08/10/16 11/16/21 Mononitrate ER] Levothyroxine Sodium [Tirosint] 50 mcg PO DAILY 08/10/16 11/16/21 Metoprolol Tartrate [Lopressor] 50 mg PO DAILY 08/10/16 11/16/21 Oxybutynin Chloride 5 mg PO BID 08/10/16 11/16/21 Potassium Chloride [Klor-Con 10 ER] 10 meq PO BID 08/10/16 11/16/21 Sertraline [Zoloft] 100 mg PO BID 08/10/16 11/16/21 Furosemide [Lasix] 20 mg PO DAILY 11/16/21 11/16/21 Gabapentin [Neurontin] 300 mg PO BID 11/16/21 11/16/21 HYDROcodone/APAP 10-325MG [[place] 1 tab PO Q6H PRN 11/16/21 11/16/21 10-325] Allergies Allergy/AdvReac Type Severity Reaction Status Date / Time Penicillins Allergy Anaphylaxis Verified 11/16/21 18:32 ibuprofen [From Motrin] AdvReac Rash/Hives Verified 11/16/21 18:32 Review of Systems ROS Statement: Those systems with pertinent positive or pertinent negative responses have been documented in the HPI. ROS Other: All systems not noted in ROS Statement are negative. Past Medical History Past Medical History: Coronary Artery Disease (CAD), Diabetes Mellitus, Hyperlipidemia, Hypertension, Thyroid Disorder Additional Past Medical History / Comment(s): diverticultitis, rhuematic fever, arthritis, gout, obstructive sleep apnea on CPAP, falls History of Any Multi-Drug Resistant Organisms: None Reported Past Surgical History: Bariatric Surgery, Section, Cholecystectomy, Hysterectomy, Tonsillectomy Additional Past Surgical History / Comment(s): A 2 vessel CABG in 1996, bilateral carpal tunnel release, lap band surgery with Dr. Jefferson Past Psychological History: No Psychological Hx Reported Smoking Status: Never smoker Past Alcohol Use History: None Reported Past Drug Use History: None Reported General Exam Limitations: no limitations Course Vital Signs 11/16/21 11/16/21 11/16/21 17:13 17:50 18:24 Temperature 97.9 F Pulse Rate 69 80 75 Respiratory 20 18 18 Rate Blood Pressure 135/76 130/63 O2 Sat by Pulse 95 98 97 Oximetry Medical Decision Making - Lab Data Result diagrams: 11/16/21 17:26 11/16/21 17:26 Lab Results 11/16/21 11/16/21 11/16/21 Range/Units 17:12 17:26 17:26 WBC 7.0 (3.8-10.6) k/uL RBC 3.30 L (3.80-5.40) m/uL Hgb 9.2 L (11.4-16.0) gm/dL Hct 30.0 L (34.0-46.0) % MCV 90.7 (80.0-100.0) fL MCH 27.9 (25.0-35.0) pg MCHC 30.7 L (31.0-37.0) g/dL RDW 15.4 (11.5-15.5) % Plt Count 171 (150-450) k/uL MPV 8.2 Neutrophils % 76 % Lymphocytes % 13 % Monocytes % 6 % Eosinophils % 2 % Basophils % 0 % Neutrophils # 5.3 (1.3-7.7) k/uL Lymphocytes # 0.9 L (1.0-4.8) k/uL Monocytes # 0.4 (0-1.0) k/uL Eosinophils # 0.2 (0-0.7) k/uL Basophils # 0.0 (0-0.2) k/uL Hypochromasia Slight Sodium 140 (137-145) mmol/L Potassium 3.9 (3.5-5.1) mmol/L Chloride 106 (98-107) mmol/L Carbon Dioxide 31 H (22-30) mmol/L Anion Gap 3 mmol/L BUN 30 H (7-17) mg/dL Creatinine 1.12 H (0.52-1.04) mg/dL Est GFR (CKD-EPI)AfAm 57 (>60 ml/min/1.73 sqM) Est GFR (CKD-EPI)NonAf 49 (>60 ml/min/1.73 sqM) Glucose 44 L* (74-99) mg/dL POC Glucose (mg/dL) 83 (75-99) mg/dL POC Glu Lan Analyst ID Miles, Deshawn Calcium 8.7 (8.4-10.2) mg/dL 11/16/21 11/16/21 11/16/21 Range/Units 17:31 18:21 19:15 WBC (3.8-10.6) k/uL RBC (3.80-5.40) m/uL Hgb (11.4-16.0) gm/dL Hct (34.0-46.0) % MCV (80.0-100.0) fL MCH (25.0-35.0) pg MCHC (31.0-37.0) g/dL RDW (11.5-15.5) % Plt Count (150-450) k/uL MPV Neutrophils % % Lymphocytes % % Monocytes % % Eosinophils % % Basophils % % Neutrophils # (1.3-7.7) k/uL Lymphocytes # (1.0-4.8) k/uL Monocytes # (0-1.0) k/uL Eosinophils # (0-0.7) k/uL Basophils # (0-0.2) k/uL Hypochromasia Sodium (137-145) mmol/L Potassium (3.5-5.1) mmol/L Chloride (98-107) mmol/L Carbon Dioxide (22-30) mmol/L Anion Gap mmol/L BUN (7-17) mg/dL Creatinine (0.52-1.04) mg/dL Est GFR (CKD-EPI)AfAm (>60 ml/min/1.73 sqM) Est GFR (CKD-EPI)NonAf (>60 ml/min/1.73 sqM) Glucose (74-99) mg/dL POC Glucose (mg/dL) 46 L 85 89 (75-99) mg/dL POC Glu Lan Analyst Deshawn Pompa Dakota Slezinski, Ashlee Calcium (8.4-10.2) mg/dL Disposition Clinical Impression: Hypoglycemia Disposition: HOME SELF-CARE Condition: Good Instructions (If sedation given, give patient instructions): Hypoglycemia in a Person with Diabetes (ED) Is patient prescribed a controlled substance at d/c from ED?: No Referrals: Marcelino Cruz Jr, [Primary Care Provider] - 1-2 days
[2021-11-16 17:48] LABS: Calcium 8.7 mg/dL (8.4-10.2); Potassium 3.9 mmol/L (3.5-5.1)
[2021-11-16 17:51] VITALS: RESP 18
[2021-11-16 18:25] VITALS: PULSE 75
[2021-11-16 18:33] LABS: Glucose,Whole Blood 85 mg/dL (75-99)
[2021-11-16 19:16] LABS: Glucose,Whole Blood 89 mg/dL (75-99)
[2021-11-16 20:09] LABS: Glucose,Whole Blood 102 mg/dL (75-99)
[2021-11-16 20:20] VITALS: BP 124/62
== END 2021-11-16 20:20 | disposition home or self-care (01) ==
LOC: EC 17:09
DX: E11.649 Type 2 diabetes mellitus with hypoglycemia without coma (principal); I25.10 Atherosclerotic heart disease of native coronary artery without angina pectoris; E78.5 Hyperlipidemia, unspecified; I10 Essential (primary) hypertension; E07.9 Disorder of thyroid, unspecified; Z79.82 Long term (current) use of aspirin; Z79.4 Long term (current) use of insulin; Z88.0 Allergy status to penicillin; Z88.6 Allergy status to analgesic agent; Z90.49 Acquired absence of other specified parts of digestive tract; Z90.710 Acquired absence of both cervix and uterus
CPT/HCPCS: 36415; 80048; 85025; 96374; 99284

== ENCOUNTER 2022-02-11 21:33 | Inpatient (IN) | payer MEDICARE, OTHER ==
--- NOTE | 2022-02-11 22:23 | XR ---
EXAMINATION TYPE: XR chest 2V DATE OF EXAM: 02/11/2022 COMPARISON: 08/10/2016 HISTORY: Cough and congestion TECHNIQUE: 2 views FINDINGS: There is coarse interstitial density in the lungs. There are sternal wires. Heart is top no rmal in size. No pleural effusion. Bony thorax is intact. There is some spurring in the lower thoraci c spine. IMPRESSION: There is some pulmonary interstitial edema which is new compared to old exam. This could be acute mild heart failure. Also consider interstitial pneumonia.
[2022-02-11] MEDS ORDERED: ACETAMINOPHEN TAB 500 MG TAB PO STA (23:29)
[2022-02-11] MEDS ORDERED: ONDANSETRON 4 MG/2 ML VIAL IVP PRN (23:56)
[2022-02-11] MEDS ORDERED: NALOXONE 0.4 MG/ML 1 ML VIAL IV PRN (23:56)
[2022-02-11] MEDS ORDERED: methylPREDNISolone SOD SUCCI 125 MG/2 ML VIAL IV STA (23:58)
[2022-02-11] MEDS ORDERED: METOPROLOL TARTRATE 5 MG/5 ML VIAL IVP STA (23:58)
[2022-02-12] MEDS ORDERED: ALBUTEROL NEBULIZED 2.5 MG/3 ML INHALATION STA
--- NOTE | 2022-02-12 00:06 | ED ---
General Adult HPI - General Source: patient Mode of arrival: ambulatory Limitations: no limitations <Jennifer Richards - Last Filed: 02/11/22 23:56> <Domenic Kurtz - Last Filed: 02/12/22 04:44> - General Chief complaint: Fever Stated complaint: Covid+, Fever, Cough, Congestion Time Seen by Provider: 02/11/22 23:35 - History of Present Illness Initial comments: Patient is a 72-year-old female presents to the emergency room with complaint plate of shortness of breath and a positive COVID home test 2 days ago. She has not COVID vaccinated. In addition to her shortness of breath she is complaining of fevers, chills, nausea, palpitations, cough, and body aches. She is supposed to utilize BiPAP at home but her machine is broken. She is not on home oxygen. She has multiple comorbid conditions and significant past medical history for COPD, CAD, hypertension, hyperlipidemia, diabetes, morbid obesity, and hypothyroidism. She is very anxious as she had a family member from COVID earlier in the year. She denies any other complaints or concerns at this time. (Jennifer Richards) - Related Data Home Medications Medication Instructions Recorded Confirmed Aspirin 81 mg PO DAILY 08/10/16 11/16/21 Atorvastatin [Lipitor] 40 mg PO DAILY 08/10/16 11/16/21 INSULIN ASPART (NovoLOG) [NovoLOG 40 unit SQ AC-TID 08/10/16 11/16/21 (formulary)] Insulin Detemir (Levemir) [Levemir] 60 unit SQ BID 08/10/16 11/16/21 Isosorbide Mononitrate [Isosorbide 30 mg PO DAILY 08/10/16 11/16/21 Mononitrate ER] Levothyroxine Sodium [Tirosint] 50 mcg PO DAILY 08/10/16 11/16/21 Metoprolol Tartrate [Lopressor] 50 mg PO DAILY 08/10/16 11/16/21 Oxybutynin Chloride 5 mg PO BID 08/10/16 11/16/21 Potassium Chloride [Klor-Con 10 ER] 10 meq PO BID 08/10/16 11/16/21 Sertraline [Zoloft] 100 mg PO BID 08/10/16 11/16/21 Furosemide [Lasix] 20 mg PO DAILY 11/16/21 11/16/21 Gabapentin [Neurontin] 300 mg PO BID 11/16/21 11/16/21 HYDROcodone/APAP 10-325MG [[place] 1 tab PO Q6H PRN 11/16/21 11/16/21 10-325] Allergies Allergy/AdvReac Type Severity Reaction Status Date / Time Penicillins Allergy Anaphylaxis Verified 02/11/22 21:55 ibuprofen [From Motrin] AdvReac Rash/Hives Verified 02/11/22 21:55 Review of Systems ROS Other: All systems not noted in ROS Statement are negative. <Jennifer Richards - Last Filed: 02/11/22 23:56> ROS Other: All systems not noted in ROS Statement are negative. <Domenic Kurtz - Last Filed: 02/12/22 04:44> ROS Statement: Those systems with pertinent positive or pertinent negative responses have been documented in the HPI. Past Medical History Past Medical History: Coronary Artery Disease (CAD), Diabetes Mellitus, Hyperlipidemia, Hypertension, Thyroid Disorder Additional Past Medical History / Comment(s): diverticultitis, rhuematic fever, arthritis, gout, obstructive sleep apnea on CPAP, falls History of Any Multi-Drug Resistant Organisms: None Reported Past Surgical History: Bariatric Surgery, Section, Cholecystectomy, Hysterectomy, Tonsillectomy Additional Past Surgical History / Comment(s): A 2 vessel CABG in 1996, bilateral carpal tunnel release, lap band surgery with Dr. Jefferson Past Psychological History: No Psychological Hx Reported Smoking Status: Never smoker Past Alcohol Use History: None Reported Past Drug Use History: None Reported <Jennifer Richards - Last Filed: 02/11/22 23:56> General Exam Limitations: no limitations General appearance: alert, anxious, obese Head exam: Present: atraumatic, normocephalic, normal inspection Eye exam: Present: normal appearance, scleral icterus ENT exam: Present: normal exam, mucous membranes moist Neck exam: Present: other (Large neck) Respiratory exam: Present: wheezes, rales, accessory muscle use, decreased breath sounds (Due to body habitus), other (Mild tachypnea and occasional pursed lip breathing) Cardiovascular Exam: Present: normal rhythm, tachycardia, normal heart sounds. Absent: systolic murmur, diastolic murmur GI/Abdominal exam: Present: soft, normal bowel sounds. Absent: distended, tenderness, guarding, rebound, rigid Extremities exam: Present: pedal edema, joint swelling. Absent: calf tenderness Neurological exam: Present: alert, oriented X3, CN II-XII intact Psychiatric exam: Present: anxious Skin exam: Present: warm, dry, intact, normal color. Absent: rash <SusieJennifer - Last Filed: 02/11/22 23:56> Course Vital Signs 02/11/22 02/11/22 02/12/22 21:50 23:58 00:42 Temperature 100.5 F H Pulse Rate 131 H Respiratory 24 Rate Blood Pressure 133/61 O2 Sat by Pulse 93 L Oximetry Fraction of 28 32 Inspired Oxygen (FIO2) 02/12/22 02/12/22 02/12/22 01:47 02:23 03:24 Temperature 100.5 F H 99.5 F Pulse Rate 113 H 117 H 114 H Respiratory 25 H 25 H 25 H Rate Blood Pressure 125/77 127/61 132/77 O2 Sat by Pulse 96 94 L 97 Oximetry Fraction of Inspired Oxygen (FIO2) Medical Decision Making - Radiology Data Radiology results: report reviewed, image reviewed <Jennifer Richards - Last Filed: 02/11/22 23:56> - Lab Data Result diagrams: 02/12/22 00:22 02/12/22 00:22 <Domenic Kurtz - Last Filed: 02/12/22 04:44> - Medical Decision Making Triage workup revealed COVID positive with infiltrates on chest x-ray. She is tachycardic, tachypnic along with having a fever. Will start sepsis protocol with EKG, CBC, lactic acid, CMP and blood cultures. The setting of COVID positive and no evidence of underlying infection no need for antibiotic therapy at this time. Will plan for admission. We'll give Zofran for nausea with dry heaves. No emesis at this time. Will give IV Lopressor for tachycardia. Will start on BiPAP with titration of FiO2 to maintain oxygen saturation greater than 92. Will give nebulized treatment. Will start on steroids. Discussed with patient and family due to admission for COVID not a candidate for antibody infusions or antiviral oral treatment. Will treat fever with Tylenol at this time. Case discussed with Dr. Kurtz. Dr. Jama covering for Dr. Amanda patient's primary care provider. Admission discussed. Will admit to Dr. Jama with pulmonary consult. (Jennifer Richards) - Lab Data Lab Results 02/11/22 02/12/22 02/12/22 Range/Units 21:59 00:22 00:22 WBC 6.2 (3.8-10.6) k/uL RBC 3.47 L (3.80-5.40) m/uL Hgb 9.6 L (11.4-16.0) gm/dL Hct 30.4 L (34.0-46.0) % MCV 87.4 (80.0-100.0) fL MCH 27.8 (25.0-35.0) pg MCHC 31.8 (31.0-37.0) g/dL RDW 16.7 H (11.5-15.5) % Plt Count 169 (150-450) k/uL MPV 8.1 Neutrophils % 90 % Lymphocytes % 2 % Monocytes % 5 % Eosinophils % 1 % Basophils % 0 % Neutrophils # 5.6 (1.3-7.7) k/uL Lymphocytes # 0.1 L (1.0-4.8) k/uL Monocytes # 0.3 (0-1.0) k/uL Eosinophils # 0.0 (0-0.7) k/uL Basophils # 0.0 (0-0.2) k/uL Hypochromasia Moderate Anisocytosis Slight Sodium 134 L (137-145) mmol/L Potassium 5.7 H (3.5-5.1) mmol/L Chloride 102 (98-107) mmol/L Carbon Dioxide 25 (22-30) mmol/L Anion Gap 7 mmol/L BUN 18 H (7-17) mg/dL Creatinine 0.93 (0.52-1.04) mg/dL Est GFR (CKD-EPI)AfAm 71 (>60 ml/min/1.73 sqM) Est GFR (CKD-EPI)NonAf 62 (>60 ml/min/1.73 sqM) Glucose 108 H (74-99) mg/dL Plasma Lactic Acid Garcia (0.7-2.0) mmol/L Calcium 9.0 (8.4-10.2) mg/dL Total Bilirubin 2.4 H (0.2-1.3) mg/dL AST 34 (14-36) U/L ALT 12 (4-34) U/L Alkaline Phosphatase 71 (38-126) U/L Total Protein 7.6 (6.3-8.2) g/dL Albumin 4.0 (3.5-5.0) g/dL Coronavirus (PCR) Detected A (Not Detectd) 02/12/22 Range/Units 00:22 WBC (3.8-10.6) k/uL RBC (3.80-5.40) m/uL Hgb (11.4-16.0) gm/dL Hct (34.0-46.0) % MCV (80.0-100.0) fL MCH (25.0-35.0) pg MCHC (31.0-37.0) g/dL RDW (11.5-15.5) % Plt Count (150-450) k/uL MPV Neutrophils % % Lymphocytes % % Monocytes % % Eosinophils % % Basophils % % Neutrophils # (1.3-7.7) k/uL Lymphocytes # (1.0-4.8) k/uL Monocytes # (0-1.0) k/uL Eosinophils # (0-0.7) k/uL Basophils # (0-0.2) k/uL Hypochromasia Anisocytosis Sodium (137-145) mmol/L Potassium (3.5-5.1) mmol/L Chloride (98-107) mmol/L Carbon Dioxide (22-30) mmol/L Anion Gap mmol/L BUN (7-17) mg/dL Creatinine (0.52-1.04) mg/dL Est GFR (CKD-EPI)AfAm (>60 ml/min/1.73 sqM) Est GFR (CKD-EPI)NonAf (>60 ml/min/1.73 sqM) Glucose (74-99) mg/dL Plasma Lactic Acid Garcia 1.2 (0.7-2.0) mmol/L Calcium (8.4-10.2) mg/dL Total Bilirubin (0.2-1.3) mg/dL AST (14-36) U/L ALT (4-34) U/L Alkaline Phosphatase (38-126) U/L Total Protein (6.3-8.2) g/dL Albumin (3.5-5.0) g/dL Coronavirus (PCR) (Not Detectd) - Radiology Data Chest x-ray showed compression shows there is some mild pulmonary interstitial edema which is new compared to old exam. This could be acute mild heart failure also consider interstitial pneumonia. (Jennifer Richards) Disposition Is patient prescribed a controlled substance at d/c from ED?: No Time of Disposition: 00:09 <Jennifer Richards - Last Filed: 02/11/22 23:56> <Domenic Kurtz - Last Filed: 02/12/22 04:44> Clinical Impression: COVID Disposition: ADMITTED IP TO THIS HOSP Condition: Undetermined
[2022-02-12] MEDS ORDERED: ALBUTEROL HFA INHALER INHALATION STA (00:30)
[2022-02-12 00:48] LABS: Anisocytosis Slight; Basophils % (A) 0 %; Eosinophils % (A) 1 %; HCT 30.4 % (34.0-46.0); HGB 9.6 gm/dL (11.4-16.0); Hypochromasia Moderate; Lymphocytes # (A) 0.1 k/uL (1.0-4.8); Lymphocytes % (A) 2 %; MCH 27.8 pg (25.0-35.0); MCHC 31.8 g/dL (31.0-37.0); MCV 87.4 fL (80.0-100.0); Mean Platelet Volume 8.1; Monocytes # (A) 0.3 k/uL (0-1.0); Monocytes % (A) 5 %; Neutrophils # (A) 5.6 k/uL (1.3-7.7); Neutrophils % (A) 90 %; Platelet Count 169 k/uL (150-450); RBC 3.47 m/uL (3.80-5.40); RDW 16.7 % (11.5-15.5); WBC 6.2 k/uL (3.8-10.6)
[2022-02-12 00:51] LABS: Glucose,Whole Blood 119 mg/dL (70-110)
[2022-02-12] MEDS ORDERED: METOPROLOL TARTRATE 5 MG/5 ML VIAL IVP STA (01:06)
[2022-02-12 01:07] LABS: Potassium 5.7 mmol/L (3.5-5.1); Total Bilirubin 2.4 mg/dL (0.2-1.3); Total Protein 7.6 g/dL (6.3-8.2)
[2022-02-12] MEDS: METOPROLOL TARTRATE 5 MG/5 ML VIAL IVP SCH ×8 (03:25→05:46)
[2022-02-12] MEDS: ENOXAPARIN 150 MG/ML SYRINGE SQ STA ×2 (05:43→05:45)
[2022-02-12] MEDS ORDERED: METOPROLOL TARTRATE 5 MG/5 ML VIAL IVP PRN (05:47)
[2022-02-12 07:06] LABS: Glucose,Whole Blood 231 mg/dL (70-110)
[2022-02-12] MEDS ORDERED: REMDESIVIR 200 MG in SODIUM CHLORIDE 0.9% 250 ML IVPB ONE (09:00)
[2022-02-12 09:01] LABS: C Reactive Protein 1.5 mg/dL (<1.0)
[2022-02-12] MEDS ORDERED: METOPROLOL TARTRATE 50 MG TAB PO STA (09:08)
[2022-02-12] MEDS: ASCORBIC ACID 500 MG TAB PO SCH (10:22)
[2022-02-12] MEDS: ZINC SULFATE 220 MG CAP PO SCH (10:22)
[2022-02-12] MEDS: dexAMETHasone 2 MG TAB PO SCH (10:22)
[2022-02-12] MEDS: CHOLECALCIFEROL 125 MCG (5000 IU) TABLET PO SCH (10:22)
[2022-02-12] MEDS: SODIUM CHLORIDE 0.9% 1,000 ML IV SCH (10:23)
--- NOTE | 2022-02-12 10:53 | P.CNPUL ---
History of Present Illness Consult date: 02/12/22 Requesting physician: Maik Jama Reason for consult: dyspnea, cough, hypoxemia, pneumonia, abnormal CXR/CT Chief complaint: Shortness of breath. History of present illness: Pulmonary/critical care consult dated 02/12/2022. 72-year-old female, seen in the emergency room, room 17. She is an on vaccinated obese white female, who presents to the emergency room, with a couple days with increasing shortness of breath, cough, fever, muscle aches, and joint aches. She apparently did a home test for coronavirus 2 days ago, and it was positive. Because of worsening complaints, she came to the emergency room to be evaluated. She seen in the ER. She's currently on BiPAP with settings of 12/5 and 32%. She's not receiving any IV fluids. The patient has a history of hyperlipidemia, diabetes, hypothyroidism, and hypertension. She also has a history of hypothyroidism. White count 6.2, hemoglobin 9.6, hematocrit 30.4, platelet count 269,000. D-dimer is 1.35. Sodium 134, potassium 5.7, chlorides 102, CO2 25, BUN 18, creatinine 0.93. Troponin was 0.212. LDH was 514. C- reactive protein was 1.5. Testing for rangel virus was positive. Chest x-ray shows diffuse bilateral infiltrates Review of Systems REVIEW OF SYSTEMS: CONSTITUTIONAL: Weakness, fever, chills, muscle aches. NEUROLOGIC: [ Negative.] HEENT: [ Negative.] CARDIAC: [Negative.] PULMONARY: Shortness of breath, cough. GI: Nausea. : [Negative.] RHEUMATOLOGIC: [ Negative.] IMMUNOLOGIC: [ Negative.] ENDOCRINE: [Negative. ] DERMATOLOGIC: [Negative.] Past Medical History Past Medical History: Coronary Artery Disease (CAD), Diabetes Mellitus, Eye Disorder, Hyperlipidemia, Hypertension, Osteoarthritis (OA), Renal Disease, Sleep Apnea/CPAP/BIPAP, Thyroid Disorder Additional Past Medical History / Comment(s): IDDM type II, L eye retinal bleed/lasik eye surgery, R eye cataract, bilateral eye macular degeneration/gets injections/poor vision, CKD stage III, anemia, UTI/sepsis, bilateral leg lymphedema, FLORES/does not have cpap machine at this time, diverticulitis, gout, chronic back pain, rheumatic fever, hypothyroid. History of Any Multi-Drug Resistant Organisms: None Reported Past Surgical History: Bariatric Surgery, Section, Cholecystectomy, Coronary Bypass/CABG, Heart Catheterization, Hysterectomy, Tonsillectomy Additional Past Surgical History / Comment(s): A 2 vessel CABG in 1996, bilateral carpal tunnel release, lap band, L eye laser surgery, Past Anesthesia/Blood Transfusion Reactions: No Reported Reaction Past Psychological History: Depression Additional Psychological History / Comment(s): Pt resides with her son and her brother. Pt does not drive d/t vision problems, her son takes her to [employer]. She states she is able to manage her own medictions. She uses no assistive device. Smoking Status: Never smoker Past Alcohol Use History: None Reported Past Drug Use History: None Reported - Past Family History Father Family Medical History: Cancer, Coronary Artery Disease (CAD), Diabetes Mellitus Additional Family Medical History / Comment(s): Prostate cancer Mother Family Medical History: Cancer Additional Family Medical History / Comment(s): Bone cancer. Medications and Allergies Home Medications Medication Instructions Recorded Confirmed Type Aspirin 81 mg PO DAILY 08/10/16 02/12/22 History Atorvastatin [Lipitor] 40 mg PO DAILY 08/10/16 02/12/22 History INSULIN ASPART (NovoLOG) [NovoLOG 40 unit SQ AC-TID 08/10/16 02/12/22 History (formulary)] Insulin Detemir (Levemir) [Levemir] 60 unit SQ BID 08/10/16 02/12/22 History Isosorbide Mononitrate [Isosorbide 30 mg PO DAILY 08/10/16 02/12/22 History Mononitrate ER] Levothyroxine Sodium [Tirosint] 50 mcg PO DAILY 08/10/16 02/12/22 History Metoprolol Tartrate [Lopressor] 50 mg PO DAILY 08/10/16 02/12/22 History Oxybutynin Chloride 5 mg PO BID 08/10/16 02/12/22 History Potassium Chloride [Klor-Con 10 ER] 20 meq PO DAILY 08/10/16 02/12/22 History Sertraline [Zoloft] 100 mg PO BID 08/10/16 02/12/22 History Furosemide [Lasix] 20 mg PO DAILY 11/16/21 02/12/22 History Gabapentin [Neurontin] 300 mg PO TID 11/16/21 02/12/22 History Allergies Allergy/AdvReac Type Severity Reaction Status Date / Time ibuprofen [From Motrin] Allergy Rash/Hives Verified 02/12/22 06:15 Penicillins Allergy Anaphylaxis Verified 02/12/22 06:15 Physical Exam Osteopathic Statement: *. No significant issues noted on an osteopathic structural exam other than those noted in the History and Physical/Consult. Vitals: Vital Signs Temp Pulse Pulse Resp BP BP Pulse Ox 02/12/22 08:20 98.6 F 115 H 22 130/88 99 02/12/22 07:15 02/12/22 05:38 107 H 27 H 138/92 96 02/12/22 04:51 02/12/22 03:24 99.5 F 114 H 25 H 132/77 97 02/12/22 02:23 117 H 25 H 127/61 94 L 02/12/22 01:47 100.5 F H 113 H 25 H 125/77 96 02/12/22 00:42 02/11/22 23:58 02/11/22 21:50 100.5 F H 131 H 24 133/61 93 L FiO2 02/12/22 08:20 32 02/12/22 07:15 32 02/12/22 05:38 02/12/22 04:51 32 02/12/22 03:24 02/12/22 02:23 02/12/22 01:47 02/12/22 00:42 32 02/11/22 23:58 28 02/11/22 21:50 Intake and Output 02/11/22 02/12/22 02/12/22 22:59 06:59 14:59 Other: Weight 147.418 kg No acute distress, oriented 3. The patient is currently on BiPAP. No obvious respiratory distress. She is able to speak in full sentences. HEENT examination is grossly unremarkable. Neck supple. Full range of motion. No adenopathy thyromegaly or neck vein distention. Cardiovascular examination reveals irregular rhythm and rate. S1-S2 normal. No S3 or S4. No discernible murmur noted. Heart sounds are distant. Heart rate 115 bpm. Lungs reveal scattered bilateral rhonchi. No wheezes. No crackles. Breath sounds equal bilaterally. Saturations are 99% on BiPAP. Abdomen obese. No masses or tenderness. Extremities are intact. No cyanosis clubbing or edema. Skin is without rash or lesion. Neurologic examination is brief but nonfocal. Results - Laboratory Findings CBC and BMP: 02/12/22 00:22 02/12/22 00:22 PT/INR, D-dimer D-Dimer 1.35 mg/L FEU (<0.60) H 02/12/22 08:31 Abnormal lab findings: Abnormal Labs 02/11/22 02/12/22 02/12/22 21:59 00:22 00:22 RBC 3.47 L Hgb 9.6 L Hct 30.4 L RDW 16.7 H Lymphocytes # 0.1 L D-Dimer Sodium 134 L Potassium 5.7 H BUN 18 H Glucose 108 H POC Glucose (mg/dL) Total Bilirubin 2.4 H Troponin I C-Reactive Protein Coronavirus (PCR) Detected A 02/12/22 02/12/22 02/12/22 00:48 07:05 08:31 RBC Hgb Hct RDW Lymphocytes # D-Dimer 1.35 H Sodium Potassium BUN Glucose POC Glucose (mg/dL) 119 H 231 H Total Bilirubin Troponin I C-Reactive Protein Coronavirus (PCR) 02/12/22 02/12/22 08:31 08:34 RBC Hgb Hct RDW Lymphocytes # D-Dimer Sodium Potassium BUN Glucose POC Glucose (mg/dL) Total Bilirubin Troponin I 0.212 H* C-Reactive Protein 1.5 H Coronavirus (PCR) - Diagnostic Findings Chest x-ray: image reviewed Assessment and Plan Assessment: Acute hypoxemic respiratory failure secondary to acute coronavirus associated pneumonia. New onset atrial fibrillation. Morbid obesity. History of CAD, status post 2 vessel bypass grafting, 1996. History of hypertension. History of hyperlipidemia. History of diabetes mellitus. History of hypothyroidism. History of gout. Previous lap band surgery, for obesity. Plan: Plan dated 02/12/2022. The patient is seen down in the emergency department. Unfortunately, she is not vaccinated. The patient is a candidate for REM. In addition, the patient should be on Lovenox, Decadron, vitamins, and we should order inflammatory markers. In addition, consideration of a CT angiogram should be done given the new onset atrial fibrillation, and the high risk of blood clot formation in a patient with coronavirus infection. The patient's currently receiving therapeutic doses of Lovenox. Additional recommendations and suggestions are forthcoming. We will continue to follow. Time with Patient: Greater than 30
[2022-02-12] MEDS ORDERED: METOPROLOL TARTRATE 50 MG TAB PO SCH (11:15)
--- NOTE | 2022-02-12 11:42 | CA ---
Transthoracic Echo Report Name: Faith Tapia Age: 72 Gender: F : 1950 Exam Date: 02/12/2022 10:46 Exam Location: [facility] Ht (in): 62 Wt (lb): 325 Ordering Physician: Bryant Weller MD ([id number]) Attending/Referring Phys: [employer] Activities Services Worker Toya Moss RDCS Procedure CPT: Indications: atrial fibrillation Cardiac Hx: Limited for LV function. Covid positive Technical Quality: Very technically difficult study Contrast 1: Lumason Total Dose (mL): 1 Contrast 2: Total Dose (mL): MEASUREMENTS (Male / Female) Normal Values 2D ECHO LV Diastolic Diameter PLAX 4.8 cm 4.2 - 5.9 / 3.9 - 5.3 cm LV Systolic Diameter PLAX 2.7 cm IVS Diastolic Thickness 1.4 cm 0.6 - 1.0 / 0.6 - 0.9 cm LVPW Diastolic Thickness 1.6 cm 0.6 - 1.0 / 0.6 - 0.9 cm LV Relative Wall Thickness 0.6 RV Internal Dim ED PLAX 3.8 cm LVOT Diameter 1.5 cm M-MODE Aortic Root Diameter MM 3.7 cm LA Systolic Diameter MM 3.0 cm LA Ao Ratio MM 0.8 AV Cusp Separation MM 1.6 cm DOPPLER AV Peak Velocity 181.7 cm/s AV Peak Gradient 13.2 mmHg AV Mean Velocity 142.8 cm/s AV Mean Gradient 9.1 mmHg AV Velocity Time Integral 39.7 cm LVOT Peak Velocity 76.6 cm/s LVOT Peak Gradient 2.3 mmHg AV Area Cont Eq pk 0.8 cm??? MV Area PHT 3.0 cm??? MR Peak Velocity 222.3 cm/s MR Peak Gradient 19.8 mmHg Mitral E Point Velocity 87.8 cm/s Mitral A Point Velocity 48.9 cm/s Mitral E to A Ratio 1.8 MV Deceleration Time 248.8 ms TR Peak Velocity 360.4 cm/s TR Peak Gradient 52.0 mmHg Right Ventricular Systolic Press 57.0 mmHg FINDINGS Left Ventricle Moderately increased septal wall thickness. Moderately increased posterior wall thickness. Left ventricular ejection fraction is estimated at 55-60 %. Lumason used for LV function. Right Ventricle Right Atrium Left Atrium Mitral Valve Moderate mitral annular calcification. Aortic Valve Aortic valve sclerosis. Tricuspid Valve Pulmonic Valve Pericardium No pericardial effusion. Aorta CONCLUSIONS Technically limited and difficult study. 1. Normal size and systolic function 2. No pericardial effusion Previewed by: Dr. Marilu Martinez MD (Electronically Signed) Final Date: 12 February 2022 11:41
[2022-02-12] MEDS: POTASSIUM CHLORIDE ER 20 MEQ TAB.ER PO SCH (12:10)
[2022-02-12] MEDS: ATORVASTATIN 40 MG TAB PO SCH (12:10)
[2022-02-12] MEDS: FUROSEMIDE 20 MG TAB PO SCH (12:10)
[2022-02-12] MEDS: LEVOTHYROXINE 50 MCG TAB PO SCH (12:10)
[2022-02-12] MEDS: ISOSORBIDE MONONITRATE ER 30 MG TAB.ER.24H PO SCH (12:10)
[2022-02-12] MEDS: GABAPENTIN 300 MG CAP PO SCH ×3 (12:10→21:47)
[2022-02-12] MEDS: OXYBUTYNIN CHLORIDE 5 MG TAB PO SCH ×2 (12:10→21:47)
[2022-02-12] MEDS: SERTRALINE 100 MG TAB PO SCH ×2 (12:10→21:47)
[2022-02-12] MEDS: ASPIRIN 81 MG PO SCH (12:10)
[2022-02-12] MEDS: INSULIN DETEMIR (LEVEMIR) 100 UNIT/ML SYR SQ SCH ×2 (12:13→21:47)
[2022-02-12] MEDS ORDERED: INSULIN ASPART (NovoLOG) 100 UNIT/ML VIAL SQ SCH (12:30)
[2022-02-12] MEDS: ACETAMINOPHEN TAB 325 MG TAB PO PRN (12:35)
[2022-02-12 12:38] LABS: Glucose,Whole Blood 241 mg/dL (70-110)
[2022-02-12] MEDS: INSULIN ASPART (NovoLOG) 100 UNIT/ML VIAL SQ SCH ×5 (12:51→21:46)
--- NOTE | 2022-02-12 13:12 | P.HPIM ---
History of Present Illness H&P Date: 02/12/22 Chief Complaint: shortness of breath This is a 72-year-old female with past medical history of morbid obesity, BMI 59.4, CAD, CABG, bariatric surgery diabetes mellitus, hypertension, obstructive sleep apnea, hypothyroidism and multiple other medical issues reported yesterday morning upon awakening developed a cough with progressive shortness of breath, fevers ,chills , body aches and palpitations. Patient had been around her brother who was positive for coronavirus. Her BiPAP machine at home is broken .Tested positive for COVID. T-max 100.5, normal WBC, hemoglobin 9.6, platelets 169, d-dimer elevated 1.35, sodium 134, BUN 18, creatinine 0.93, lactic acid 1.2, glucose 241, T bili 2.4, troponin 0.212, LDH 514, CRP 1.5, BNP 6060. On admission 93% on room air, tachypneic with respiratory rate in the mid 20s, tachycardic with heart rates in the 130s. Received IV Lopressor. EKG reported drug fibrillation with RVR .Currently on BiPAP, FiO2 32%, expiratory pressure 5, rate 12, maintaining O2 sats in the 90s. Chest x-ray reporting pulmonary interstitial edema new compared to old. Review of Systems ROS Statement: Those systems with pertinent positive or pertinent negative responses have been documented in the HPI. ROS Other: All systems not noted in ROS Statement are negative. Past Medical History Past Medical History: Coronary Artery Disease (CAD), Diabetes Mellitus, Eye Disorder, Hyperlipidemia, Hypertension, Osteoarthritis (OA), Renal Disease, Sleep Apnea/CPAP/BIPAP, Thyroid Disorder Additional Past Medical History / Comment(s): IDDM type II, L eye retinal bleed/lasik eye surgery, R eye cataract, bilateral eye macular degeneration/gets injections/poor vision, CKD stage III, anemia, UTI/sepsis, bilateral leg lymp hedema, FLORES/does not have cpap machine at this time, diverticulitis, gout, chronic back pain, rheumatic fever, hypothyroid. History of Any Multi-Drug Resistant Organisms: None Reported Past Surgical History: Bariatric Surgery, Section, Cholecystectomy, Coronary Bypass/CABG, Heart Catheterization, Hysterectomy, Tonsillectomy Additional Past Surgical History / Comment(s): A 2 vessel CABG in 1996, bilateral carpal tunnel release, lap band, L eye laser surgery, Past Anesthesia/Blood Transfusion Reactions: No Reported Reaction Past Psychological History: Depression Additional Psychological History / Comment(s): Pt resides with her son and her brother. Pt does not drive d/t vision problems, her son takes her to [employer]. She states she is able to manage her own medictions. She uses no assistive device. Smoking Status: Never smoker Past Alcohol Use History: None Reported Past Drug Use History: None Reported - Past Family History Father Family Medical History: Cancer, Coronary Artery Disease (CAD), Diabetes Mellitus Additional Family Medical History / Comment(s): Prostate cancer Mother Family Medical History: Cancer Additional Family Medical History / Comment(s): Bone cancer. Medications and Allergies Home Medications Medication Instructions Recorded Confirmed Type Aspirin 81 mg PO DAILY 08/10/16 02/12/22 History Atorvastatin [Lipitor] 40 mg PO DAILY 08/10/16 02/12/22 History INSULIN ASPART (NovoLOG) [NovoLOG 40 unit SQ AC-TID 08/10/16 02/12/22 History (formulary)] Insulin Detemir (Levemir) [Levemir] 60 unit SQ BID 08/10/16 02/12/22 History Isosorbide Mononitrate [Isosorbide 30 mg PO DAILY 08/10/16 02/12/22 History Mononitrate ER] Levothyroxine Sodium [Tirosint] 50 mcg PO DAILY 08/10/16 02/12/22 History Metoprolol Tartrate [Lopressor] 50 mg PO DAILY 08/10/16 02/12/22 History Oxybutynin Chloride 5 mg PO BID 08/10/16 02/12/22 History Potassium Chloride [Klor-Con 10 ER] 20 meq PO DAILY 08/10/16 02/12/22 History Sertraline [Zoloft] 100 mg PO BID 08/10/16 02/12/22 History Furosemide [Lasix] 20 mg PO DAILY 11/16/21 02/12/22 History Gabapentin [Neurontin] 300 mg PO TID 11/16/21 02/12/22 History Allergies Allergy/AdvReac Type Severity Reaction Status Date / Time ibuprofen [From Motrin] Allergy Rash/Hives Verified 02/12/22 06:15 Penicillins Allergy Anaphylaxis Verified 02/12/22 06:15 Physical Exam Vitals: Vital Signs Temp Pulse Pulse Resp BP BP Pulse Ox 02/12/22 08:20 98.6 F 115 H 22 130/88 99 02/12/22 07:15 02/12/22 05:38 107 H 27 H 138/92 96 02/12/22 04:51 02/12/22 03:24 99.5 F 114 H 25 H 132/77 97 02/12/22 02:23 117 H 25 H 127/61 94 L 02/12/22 01:47 100.5 F H 113 H 25 H 125/77 96 02/12/22 00:42 02/11/22 23:58 02/11/22 21:50 100.5 F H 131 H 24 133/61 93 L FiO2 02/12/22 08:20 32 02/12/22 07:15 32 02/12/22 05:38 02/12/22 04:51 32 02/12/22 03:24 02/12/22 02:23 02/12/22 01:47 02/12/22 00:42 32 02/11/22 23:58 28 02/11/22 21:50 Intake and Output 02/11/22 02/12/22 02/12/22 22:59 06:59 14:59 Other: Weight 147.418 kg 147.418 kg PHYSICAL EXAM: VITAL SIGNS: [As above] GENERAL: Sitting up in bed, wearing BiPAP, increased respiratory effort HEENT: Conjunctivae normal. eyes normal. NECK: No JVD. No thyroid enlargement. No LNs CARDIOVASCULAR: S1, S2 regular. Tachycardic,. No murmur RESPIRATION: Breath sounds coarse, diminished in the bases. ABDOMEN: Soft, obese, nontender . No guarding. no masses palpable. Bowel sounds heard. LEGS: No edema. no swelling, no cyanosis or clubbing. PSYCHIATRY: Alert and oriented X3, mood and affect normal. NERVOUS SYSTEM: Cranial N 2-12 grossly normal. No focal deficits. Skin: Warm and dry, no rash Results CBC & Chem 7: 02/12/22 00:22 02/12/22 10:14 Labs: Abnormal Lab Results - Last 24 Hours (Table) 02/11/22 02/12/22 02/12/22 Range/Units 21:59 00:22 00:22 RBC 3.47 L (3.80-5.40) m/uL Hgb 9.6 L (11.4-16.0) gm/dL Hct 30.4 L (34.0-46.0) % RDW 16.7 H (11.5-15.5) % Lymphocytes # 0.1 L (1.0-4.8) k/uL D-Dimer (<0.60) mg/L FEU Sodium 134 L (137-145) mmol/L Potassium 5.7 H (3.5-5.1) mmol/L BUN 18 H (7-17) mg/dL Glucose 108 H (74-99) mg/dL POC Glucose (mg/dL) (70-110) mg/dL Total Bilirubin 2.4 H (0.2-1.3) mg/dL Troponin I (0.000-0.034) ng/mL C-Reactive Protein (<1.0) mg/dL Coronavirus (PCR) Detected A (Not Detectd) 02/12/22 02/12/22 02/12/22 Range/Units 00:48 07:05 08:31 RBC (3.80-5.40) m/uL Hgb (11.4-16.0) gm/dL Hct (34.0-46.0) % RDW (11.5-15.5) % Lymphocytes # (1.0-4.8) k/uL D-Dimer 1.35 H (<0.60) mg/L FEU Sodium (137-145) mmol/L Potassium (3.5-5.1) mmol/L BUN (7-17) mg/dL Glucose (74-99) mg/dL POC Glucose (mg/dL) 119 H 231 H (70-110) mg/dL Total Bilirubin (0.2-1.3) mg/dL Troponin I (0.000-0.034) ng/mL C-Reactive Protein (<1.0) mg/dL Coronavirus (PCR) (Not Detectd) 02/12/22 02/12/22 02/12/22 Range/Units 08:31 08:34 12:27 RBC (3.80-5.40) m/uL Hgb (11.4-16.0) gm/dL Hct (34.0-46.0) % RDW (11.5-15.5) % Lymphocytes # (1.0-4.8) k/uL D-Dimer (<0.60) mg/L FEU Sodium (137-145) mmol/L Potassium (3.5-5.1) mmol/L BUN (7-17) mg/dL Glucose (74-99) mg/dL POC Glucose (mg/dL) 241 H (70-110) mg/dL Total Bilirubin (0.2-1.3) mg/dL Troponin I 0.212 H* (0.000-0.034) ng/mL C-Reactive Protein 1.5 H (<1.0) mg/dL Coronavirus (PCR) (Not Detectd) Thrombosis Risk Factor Assmnt - Choose All That Apply Any of the Below Risk Factors Present?: Yes Each Factor Represents 1 point: Obesity (BMI >25), Serious lung disease incl. pneumonia (< 1month) Each Risk Factor Represents 2 Points: Age 61-74 years Other congenital or acquired thrombophilia - If yes, enter type in comment: No Thrombosis Risk Factor Assessment Total Risk Factor Score: 4 Thrombosis Risk Factor Assessment Level: Moderate Risk Assessment and Plan Assessment: Sepsis secondary to Acute Covid -19 pneumonia Acute hypoxic respiratory failure secondary to the above, BiPAP dependent New-onset atrial fibrillation, RVR CAD, history of CABG Hypertension hyperlipidemia Diabetes mellitus Hypothyroidism History of bariatric surgery Morbid obesity, BMI 59.4 Plan: Continue on current medication regime ,monitoring and symptomatic treatment. CTA pending. Evaluated by pulmonary,REM initiated. Continue on Covid cocktail. DVT prophylaxis with Lovenox . Cardiology consult in place, recommendations pending. Prognosis guarded given multiple complex medical issues. The impression and plan of care has been dictated as directed. : I performed a history and examination of this patient, discussed the same with the dictator. I agree with the dictator's note ,documented as a scribe. Any additional findings or plans will be noted.
--- NOTE | 2022-02-12 15:30 | CT ---
EXAMINATION TYPE: CT chest angio for PE CT DLP: 1036.3 mGycm, Automated exposure control for dose reduction was used. DATE OF EXAM: 02/12/2022 3:15 PM COMPARISON: Chest radiograph 02/11/2022. CLINICAL INDICATION:Female, 72 years old with history of elevated D-dimer; SOB, +covid TECHNIQUE/CONTRAST: CTA scan of the thorax is performed with IV Contrast, patient injected with 80cc mL of Isovue 370, pu lmonary embolism protocol. MIP images are created and reviewed. FINDINGS: Pulmonary Artery: There is no evidence for a central filling defect within the pulmonary vasculature to suggest acute pulmonary embolism. Limited evaluation of the segmental and subsegmental branches se condary to bolus timing. The pulmonary artery is of normal size. Lungs/Pleura: No pneumothorax. Small bilateral pleural effusions with right greater than left. Diffus e patchy groundglass airspace opacities. Airway: Large airways are patent. Heart: The heart is mildly enlarged for size. No pericardial effusion. Coronary artery calcifications and/or stents. Vasculature: No evidence of aortic aneurysm. Reflux of contrast into the IVC and hepatic veins. Mediastinum: No gross evidence of adenopathy. Postsurgical changes with clips identified. Musculoskeletal: No acute osseous abnormalities. Median sternotomy wires. Multilevel degenerative josef nges of the visualized spine. Soft Tissues: Anasarca. Lower neck: No significant findings. Upper Abdomen: Gastric lap band identified. Liver is diffusely hypoattenuating. IMPRESSION: 1. No evidence of central pulmonary embolism. Limited evaluation of the segmental and subsegmental br anches. 2. Diffuse patchy groundglass opacities consistent with known COVID-19 infection. 3. Small bilateral pleural effusions. 4. Cardiomegaly with reflux of contrast into the IVC and hepatic veins suggesting right heart dysfunc tion. 5. Hepatic steatosis.
[2022-02-12 16:42] LABS: Glucose,Whole Blood 249 mg/dL (70-110)
[2022-02-12] MEDS: ENOXAPARIN 150 MG/ML SYRINGE SQ SCH (16:59)
--- NOTE | 2022-02-12 19:19 | CONS ---
CONSULTATION Faith Tapia is a 72-year-old lady with history of diabetes, hypertension, hyperlipidemia and hypothyroidism. She came into the hospital mainly with complaints of having shortness of breath and a positive COVID test two days ago. She has not been COVID vaccinated. She has shortness of breath, fever, chills, and she was supposed to use BiPAP at home, but her machine broke down so she was not using it. After arrival she was found to be in atrial fibrillation with a fairly rapid ventricular rate and has been placed on a Cardizem drip. At the time of my evaluation she remains in atrial fibrillation. The rate is about 100 beats per minute. She seems to be reasonably more comfortable. I did not do a detailed examination on this patient, but I explained to her and talked to her that we will do rate control and Lovenox, and also she has an abnormal D-dimer. I will do a CT angiogram as well and echocardiogram. Her potassium is somewhat high. We will recheck it and also repeat another troponin level. Initial troponin was 0.2. She is resting comfortably. PAST MEDICAL HISTORY: 1. Hypertension. 2. Hyperlipidemia. 3. Diabetes. 4. Hypothyroidism. 5. History of diverticulitis. 6. History of obstructive sleep apnea. 7. History of bariatric surgery, cholecystectomy and hysterectomy. MEDICATIONS: Medications at home include insulin, levothyroxine, metoprolol, potassium supplements, Lasix, gabapentin, Lipitor 40 mg daily, aspirin 81 mg daily. PHYSICAL EXAMINATION: Physical examination was not performed. EKG revealed atrial fibrillation, rapid ventricular rate, right bundle branch block pattern with nonspecific ST-T changes. IMPRESSION: 1. New-onset atrial fibrillation with moderately rapid ventricular rate. 2. COVID pneumonia-type picture on the chest x-ray and a positive COVID test two days ago. 3. Hypertension. 4. Hyperlipidemia. 5. Type 2 diabetes mellitus. 6. Elevated troponin may not necessarily be related to primary myocardial injury. It could be due to multiple other factors. RECOMMENDATIONS: I am recommending that we obtain echocardiogram, a limited study to assess LV function, CT angiogram because of elevated D-dimer, place her on Lovenox subcutaneously, full anticoagulation, metoprolol tartrate 50 mg b.i.d., obtain echocardiogram. Recheck potassium and follow the troponin. Prognosis remains guarded. Discussed my thoughts in detail with the patient, but I did not do a detailed examination. MMODL / IJN: [id number] /
[2022-02-12 19:54] LABS: Glucose,Whole Blood 275 mg/dL (70-110)
[2022-02-12] MEDS: METOPROLOL TARTRATE 50 MG TAB PO SCH (21:47)
[2022-02-13] MEDS: SODIUM CHLORIDE 0.9% 1,000 ML IV SCH ×2 (01:16→11:19)
[2022-02-13] MEDS: LEVOTHYROXINE 50 MCG TAB PO SCH (05:23)
[2022-02-13] MEDS: ENOXAPARIN 150 MG/ML SYRINGE SQ SCH (05:24)
[2022-02-13 06:09] LABS: Glucose,Whole Blood 196 mg/dL (70-110)
[2022-02-13] MEDS: ISOSORBIDE MONONITRATE ER 30 MG TAB.ER.24H PO SCH (08:25)
[2022-02-13] MEDS: ZINC SULFATE 220 MG CAP PO SCH (08:25)
[2022-02-13] MEDS: SERTRALINE 100 MG TAB PO SCH ×2 (08:25→20:21)
[2022-02-13] MEDS: OXYBUTYNIN CHLORIDE 5 MG TAB PO SCH ×2 (08:25→20:21)
[2022-02-13] MEDS: POTASSIUM CHLORIDE ER 20 MEQ TAB.ER PO SCH (08:25)
[2022-02-13] MEDS: dexAMETHasone 2 MG TAB PO SCH (08:25)
[2022-02-13] MEDS: CHOLECALCIFEROL 125 MCG (5000 IU) TABLET PO SCH (08:25)
[2022-02-13] MEDS: ASPIRIN 81 MG PO SCH (08:25)
[2022-02-13] MEDS: ATORVASTATIN 40 MG TAB PO SCH (08:26)
[2022-02-13] MEDS: INSULIN DETEMIR (LEVEMIR) 100 UNIT/ML SYR SQ SCH ×2 (08:26→20:21)
[2022-02-13] MEDS: FUROSEMIDE 20 MG TAB PO SCH (08:26)
[2022-02-13] MEDS: METOPROLOL TARTRATE 50 MG TAB PO SCH ×2 (08:26→20:21)
[2022-02-13] MEDS: INSULIN ASPART (NovoLOG) 100 UNIT/ML VIAL SQ SCH ×7 (08:26→21:30)
[2022-02-13] MEDS: GABAPENTIN 300 MG CAP PO SCH ×3 (09:12→20:21)
[2022-02-13 09:35] VITALS: BMI 59.4
[2022-02-13 09:39] LABS: Potassium 4.6 mmol/L (3.5-5.1)
[2022-02-13 09:41] LABS: Calcium 8.6 mg/dL (8.4-10.2)
--- NOTE | 2022-02-13 10:30 | P.PN ---
Subjective Progress Note Date: 02/13/22 Principal diagnosis: Coronavirus associated pneumonia. Pulmonary/critical care consult dated 02/12/2022. 72-year-old female, seen in the emergency room, room 17. She is an on va ccinated obese white female, who presents to the emergency room, with a couple days with increasing shortness of breath, cough, fever, muscle aches, and joint aches. She apparently did a home test for coronavirus 2 days ago, and it was positive. Because of worsening complaints, she came to the emergency room to be evaluated. She seen in the ER. She's currently on BiPAP with settings of 12/5 and 32%. She's not receiving any IV fluids. The patient has a history of hyperlipidemia, diabetes, hypothyroidism, and hypertension. She also has a history of hypothyroidism. White count 6.2, hemoglobin 9.6, hematocrit 30.4, platelet count 269,000. D-dimer is 1.35. Sodium 134, potassium 5.7, chlorides 102, CO2 25, BUN 18, creatinine 0.93. Troponin was 0.212. LDH was 514. C- reactive protein was 1.5. Testing for rangel virus was positive. Chest x-ray shows diffuse bilateral infiltrates. Progress note dated 02/13/2022. The patient is seen today, in room 351. The patient was seen yesterday in consultation, in the emergency department. Today, she appears to be doing much better. She is on 2 L nasal cannula. She apparently did not use of BiPAP overnight. Her breathing is much improved. She is not vaccinated. She was admitted with a diagnosis of acute hypoxemic respiratory failure, secondary to coronavirus associated pneumonia. Sodium 137, potassium 4.6, chlorides 105, CO2 27, BUN 33, creatinine 1.08. Troponin was 0.141. N-terminal proBNP was 7910. CT angiogram showed no evidence of central pulmonary embolism, but did show diffuse patchy groundglass opacities consistent with coronavirus pneumonia. Objective - Vital Signs Vital signs: Vital Signs Temp 97.8 F 02/13/22 05:32 Pulse 71 02/13/22 05:32 Resp 16 02/13/22 05:32 BP 109/51 02/13/22 05:32 Pulse Ox 97 02/13/22 05:32 FiO2 32 02/12/22 08:20 Intake & Output 02/12/22 02/13/22 02/13/22 18:59 06:59 18:59 Intake Total 180 Output Total 800 Balance 180 -800 Weight 147.418 kg 147.418 kg Intake: Oral 180 Output: Urine 800 Other: Voiding Method External Catheter External Catheter # Bowel Movements 1 - Exam No acute distress, oriented 3. The patient is currently on 2 L nasal cannula. No obvious respiratory distress. No audible wheezing, use of accessory muscles, or conversational dyspnea. HEENT examination is grossly unremarkable. Neck supple. Full range of motion. No adenopathy thyromegaly or neck vein distention. Cardiovascular examination reveals irregular rhythm and rate. S1-S2 normal. No S3 or S4. No discernible murmur noted. Heart sounds are distant. Heart rate 71 bpm. Lungs reveal scattered bilateral rhonchi. No wheezes. No crackles. Breath sounds equal bilaterally. Saturations are 97% on 2 L nasal cannula. Abdomen obese. No masses or tenderness. Extremities are intact. No cyanosis clubbing or edema. Skin is without rash or lesion. Neurologic examination is brief but nonfocal. - Labs CBC & Chem 7: 02/12/22 00:22 02/13/22 09:08 Labs: Abnormal Lab Results - Last 24 Hours (Table) 02/12/22 02/12/22 02/12/22 Range/Units 00:22 12:27 16:40 BUN (7-17) mg/dL Creatinine (0.52-1.04) mg/dL Glucose (74-99) mg/dL POC Glucose (mg/dL) 241 H 249 H (70-110) mg/dL Hemoglobin A1c 6.4 H (0.0-6.0) % Troponin I (0.000-0.034) ng/mL 02/12/22 02/13/22 02/13/22 Range/Units 19:53 06:07 09:08 BUN (7-17) mg/dL Creatinine (0.52-1.04) mg/dL Glucose (74-99) mg/dL POC Glucose (mg/dL) 275 H 196 H (70-110) mg/dL Hemoglobin A1c (0.0-6.0) % Troponin I 0.141 H* (0.000-0.034) ng/mL 02/13/22 Range/Units 09:08 BUN 33 H (7-17) mg/dL Creatinine 1.08 H (0.52-1.04) mg/dL Glucose 146 H (74-99) mg/dL POC Glucose (mg/dL) (70-110) mg/dL Hemoglobin A1c (0.0-6.0) % Troponin I (0.000-0.034) ng/mL Microbiology - Last 24 Hours (Table) 02/12/22 00:22 Blood Culture - Preliminary Blood No Growth after 24 hours Assessment and Plan Assessment: Acute hypoxemic respiratory failure secondary to acute coronavirus associated pneumonia. New onset atrial fibrillation. Morbid obesity. History of CAD, status post 2 vessel bypass grafting, 1996. History of hypertension. History of hyperlipidemia. History of diabetes mellitus. History of hypothyroidism. History of gout. Previous lap band surgery, for obesity. Plan: Plan dated 02/12/2022. The patient is seen down in the emergency department. Unfortunately, she is not vaccinated. The patient is a candidate for REM. In addition, the patient should be on Lovenox, Decadron, vitamins, and we should order inflammatory markers. In addition, consideration of a CT angiogram should be done given the new onset atrial fibrillation, and the high risk of blood clot formation in a patient with coronavirus infection. The patient's currently receiving therapeutic doses of Lovenox. Additional recommendations and suggestions are forthcoming. We will continue to follow. Plan dated 02/13/2022. The patient appears to be doing much better. She did not use BiPAP last night. She's been weaned down to 2 L nasal cannula. She clinically is feeling much improved. Labs, x-rays, and medications are reviewed. We currently have her on vitamin C, vitamin D3, zinc, Decadron, Lovenox, and REM. We will continue to follow this patient. Additional recommendations and suggestions are forthcoming. Time with Patient: Less than 30
[2022-02-13] MEDS: REMDESIVIR 100 MG in SODIUM CHLORIDE 0.9% 250 ML IVPB SCH (11:18)
[2022-02-13] MEDS: ASCORBIC ACID 500 MG TAB PO SCH (11:19)
[2022-02-13 11:59] LABS: Glucose,Whole Blood 120 mg/dL (70-110)
--- NOTE | 2022-02-13 12:26 | P.PN ---
Subjective Progress Note Date: 02/13/22 H&P Date: 02/12/22 Chief Complaint: shortness of breath This is a 72-year-old female with past medical history of morbid obesity, BMI 59.4, CAD, CABG, bariatric surgery diabetes mellitus, hypertension, obstructive sleep apnea, hypothyroidism and multiple other medical issues reported yesterday morning upon awakening developed a cough with progressive shortness of breath, fevers ,chills , body aches and palpitations. Patient had been around her brother who was positive for coronavirus. Her BiPAP machine at home is broken .Tested positive for COVID. T-max 100.5, normal WBC, hemoglobin 9.6, platelets 169, d-dimer elevated 1.35, sodium 134, BUN 18, creatinine 0.93, lactic acid 1.2, glucose 241, T bili 2.4, troponin 0.212, LDH 514, CRP 1.5, BNP 6060. On admission 93% on room air, tachypneic with respiratory rate in the mid 20s, tachycardic with heart rates in the 130s. Received IV Lopressor. EKG reported drug fibrillation with RVR .Currently on BiPAP, FiO2 32%, expiratory pressure 5, rate 12, maintaining O2 sats in the 90s. Chest x-ray reporting pulmonary interstitial edema new compared to old. 02/13/2022 doing better this morning, maintaining O2 sats in the 90s on 2 L nasal cannula. Reports did not use BiPAP last night.CTA reported no evidence of central pulmonary embolism, diffuse patchy groundglass opacities.BNP 7910, troponin 0.212, 0.141. Continues on on Covid cocktail, remdesivir. Renal function mildly worsened, BUN 33, creatinine 1.08. Telemetry A. fib, with controlled ventricular rate. Echo reported limited and difficult study, normal systolic function, LVEF estimated at 55-60%. Objective - Vital Signs Vital signs: Vital Signs Temp 97.8 F 02/13/22 05:32 Pulse 71 02/13/22 05:32 Resp 16 02/13/22 05:32 BP 109/51 02/13/22 05:32 Pulse Ox 97 02/13/22 05:32 FiO2 32 02/12/22 08:20 Intake & Output 02/12/22 02/13/22 02/13/22 18:59 06:59 18:59 Intake Total 180 Output Total 800 Balance 180 -800 Weight 147.418 kg 147.418 kg Intake: Oral 180 Output: Urine 800 Other: Voiding Method External Catheter External Catheter # Bowel Movements 1 - Exam PHYSICAL EXAM: VITAL SIGNS: [As above] GENERAL: Alert and oriented 3, Sitting up in bed, wearing 2 L nasal cannula O2, no acute distress HEENT: Conjunctivae normal. eyes normal. Oral mucosa moist NECK: Supple, No JVD. CARDIOVASCULAR: S1, S2 regular. No murmur RESPIRATION: Breath sounds coarse, scattered expiratory wheezes, diminished in the bases. ABDOMEN: Soft, obese, nontender . No guarding. no masses palpable. Bowel sounds heard. LEGS: No edema. no swelling, no cyanosis or clubbing. NERVOUS SYSTEM: Cranial N 2-12 grossly normal. No focal deficits. Skin: Warm and dry, no rash - Labs CBC & Chem 7: 02/12/22 00:22 02/13/22 09:08 Labs: Abnormal Lab Results - Last 24 Hours (Table) 02/12/22 02/12/22 02/12/22 Range/Units 00:22 12:27 16:40 BUN (7-17) mg/dL Creatinine (0.52-1.04) mg/dL Glucose (74-99) mg/dL POC Glucose (mg/dL) 241 H 249 H (70-110) mg/dL Hemoglobin A1c 6.4 H (0.0-6.0) % Troponin I (0.000-0.034) ng/mL 02/12/22 02/13/22 02/13/22 Range/Units 19:53 06:07 09:08 BUN (7-17) mg/dL Creatinine (0.52-1.04) mg/dL Glucose (74-99) mg/dL POC Glucose (mg/dL) 275 H 196 H (70-110) mg/dL Hemoglobin A1c (0.0-6.0) % Troponin I 0.141 H* (0.000-0.034) ng/mL 02/13/22 Range/Units 09:08 BUN 33 H (7-17) mg/dL Creatinine 1.08 H (0.52-1.04) mg/dL Glucose 146 H (74-99) mg/dL POC Glucose (mg/dL) (70-110) mg/dL Hemoglobin A1c (0.0-6.0) % Troponin I (0.000-0.034) ng/mL Microbiology - Last 24 Hours (Table) 02/12/22 00:22 Blood Culture - Preliminary Blood No Growth after 24 hours Assessment and Plan Assessment: Sepsis secondary to Acute Covid -19 pneumonia Acute hypoxic respiratory failure secondary to the above New-onset atrial fibrillation, RVR CAD, history of CABG Hypertension hyperlipidemia Diabetes mellitus Hypothyroidism History of bariatric surgery Morbid obesity, BMI 59.4 Plan: Continue on current medication regime ,monitoring and symptomatic treatment. Maintained on on Covid cocktail, remdesivir. Close monitoring of renal function, with repeat labs ordered for a.m. Cardiology consult in place, recommendations pending. Prognosis guarded given multiple complex medical issues. Patient reports her CPAP machine was recalled, nearly a year ago...... doesn't recall the name of the company, case management assisting. The impression and plan of care has been dictated as directed. : I performed a history and examination of this patient, discussed the same with the dictator. I agree with the dictator's note ,documented as a scribe. Any additional findings or plans will be noted.
[2022-02-13 16:58] LABS: Glucose,Whole Blood 126 mg/dL (70-110)
--- NOTE | 2022-02-13 19:26 | PN ---
PROGRESS NOTE Mrs. Tapia has atrial fibrillation, COVID pneumonia. She is recovering from this very well. Her atrial fibrillation rate is well controlled. I am recommending that we discontinue aspirin, continue Eliquis 5 mg b.i.d., and patient can be discharged on Eliquis. We will re-evaluate her as an outpatient and make further recommendations. Vitals are stable. S1-S2 heard normally with irregular rhythm. Lungs reveal improved air entry. Abdomen and lower extremity exam is unchanged. MMODL / IJN: [id number] /
[2022-02-13 20:04] LABS: Glucose,Whole Blood 127 mg/dL (70-110)
[2022-02-13] MEDS: APIXABAN 5 MG TAB PO SCH (20:21)
[2022-02-14] MEDS: SODIUM CHLORIDE 0.9% 1,000 ML IV SCH ×2 (05:34→09:51)
[2022-02-14 06:20] LABS: Glucose,Whole Blood 101 mg/dL (70-110)
[2022-02-14] MEDS: LEVOTHYROXINE 50 MCG TAB PO SCH (06:41)
[2022-02-14] MEDS: INSULIN ASPART (NovoLOG) 100 UNIT/ML VIAL SQ SCH ×7 (09:37→20:53)
[2022-02-14] MEDS: ATORVASTATIN 40 MG TAB PO SCH (09:48)
[2022-02-14] MEDS: POTASSIUM CHLORIDE ER 20 MEQ TAB.ER PO SCH (09:48)
[2022-02-14] MEDS: METOPROLOL TARTRATE 50 MG TAB PO SCH ×2 (09:48→20:54)
[2022-02-14] MEDS: INSULIN DETEMIR (LEVEMIR) 100 UNIT/ML SYR SQ SCH ×2 (09:48→20:54)
[2022-02-14] MEDS: OXYBUTYNIN CHLORIDE 5 MG TAB PO SCH ×2 (09:48→20:54)
[2022-02-14] MEDS: ASCORBIC ACID 500 MG TAB PO SCH (09:48)
[2022-02-14] MEDS: ZINC SULFATE 220 MG CAP PO SCH (09:48)
[2022-02-14] MEDS: dexAMETHasone 2 MG TAB PO SCH (09:48)
[2022-02-14] MEDS: GABAPENTIN 300 MG CAP PO SCH ×3 (09:49→20:54)
[2022-02-14] MEDS: APIXABAN 5 MG TAB PO SCH ×2 (09:49→20:54)
[2022-02-14] MEDS: FUROSEMIDE 20 MG TAB PO SCH (09:49)
[2022-02-14] MEDS: CHOLECALCIFEROL 125 MCG (5000 IU) TABLET PO SCH (09:49)
[2022-02-14] MEDS: SERTRALINE 100 MG TAB PO SCH ×2 (09:49→20:54)
[2022-02-14] MEDS: ISOSORBIDE MONONITRATE ER 30 MG TAB.ER.24H PO SCH (09:51)
[2022-02-14] MEDS: REMDESIVIR 100 MG in SODIUM CHLORIDE 0.9% 250 ML IVPB SCH (10:25)
[2022-02-14 11:53] LABS: Glucose,Whole Blood 140 mg/dL (70-110)
[2022-02-14] MEDS: ALBUTEROL HFA INHALER INHALATION SCH ×3 (11:53→20:14)
--- NOTE | 2022-02-14 11:54 | P.PN ---
Subjective Progress Note Date: 02/14/22 Principal diagnosis: Coronavirus associated pneumonia. Pulmonary/critical care consult dated 02/12/2022. 72-year-old female, seen in the emergency room, room 17. She is an on va ccinated obese white female, who presents to the emergency room, with a couple days with increasing shortness of breath, cough, fever, muscle aches, and joint aches. She apparently did a home test for coronavirus 2 days ago, and it was positive. Because of worsening complaints, she came to the emergency room to be evaluated. She seen in the ER. She's currently on BiPAP with settings of 12/5 and 32%. She's not receiving any IV fluids. The patient has a history of hyperlipidemia, diabetes, hypothyroidism, and hypertension. She also has a history of hypothyroidism. White count 6.2, hemoglobin 9.6, hematocrit 30.4, platelet count 269,000. D-dimer is 1.35. Sodium 134, potassium 5.7, chlorides 102, CO2 25, BUN 18, creatinine 0.93. Troponin was 0.212. LDH was 514. C- reactive protein was 1.5. Testing for rangel virus was positive. Chest x-ray shows diffuse bilateral infiltrates. Progress note dated 02/13/2022. The patient is seen today, in room 351. The patient was seen yesterday in consultation, in the emergency department. Today, she appears to be doing much better. She is on 2 L nasal cannula. She apparently did not use of BiPAP overnight. Her breathing is much improved. She is not vaccinated. She was admitted with a diagnosis of acute hypoxemic respiratory failure, secondary to coronavirus associated pneumonia. Sodium 137, potassium 4.6, chlorides 105, CO2 27, BUN 33, creatinine 1.08. Troponin was 0.141. N-terminal proBNP was 7910. CT angiogram showed no evidence of central pulmonary embolism, but did show diffuse patchy groundglass opacities consistent with coronavirus pneumonia. Progress note dated 02/14/2022. The patient is again seen in room 351. She remains on nasal O2 at 2 L. She did not use of BiPAP last night, and I've asked respiratory to remove it from the room. She is receiving REM, day 3. She is also on Decadron, Lovenox, and vitamins. She is not vaccinated. No new laboratory data today. According to the nurse, she was wheezing, we've added an albuterol inhaler. Objective - Vital Signs Vital signs: Vital Signs Temp 99.3 F 02/14/22 09:53 Pulse 85 02/14/22 09:53 Resp 26 H 02/14/22 09:53 BP 163/69 02/14/22 09:53 Pulse Ox 95 02/14/22 09:53 FiO2 32 02/12/22 08:20 Intake & Output 02/13/22 02/14/22 02/14/22 18:59 06:59 18:59 Intake Total 840 245 Output Total 1375 1400 200 Balance -535 -1400 45 Weight 147.418 kg Intake: IV 5 Invasive Line 1 5 Intake, IV Titration 600 Amount Sodium Chloride 0.9% 1, 600 000 ml @ 75 mls/hr IV . [id number] [facility] Rx#:[id number] Oral 240 240 Output: Urine 1375 1400 200 Other: Voiding Method External Catheter External Catheter External Catheter - Exam No acute distress, oriented 3. The patient is currently on 2 L nasal cannula. No obvious respiratory distress. No audible wheezing, use of accessory muscles, or conversational dyspnea. HEENT examination is grossly unremarkable. Neck supple. Full range of motion. No adenopathy thyromegaly or neck vein distention. Cardiovascular examination reveals irregular rhythm and rate. S1-S2 normal. No S3 or S4. No discernible murmur noted. Heart sounds are distant. Heart rate 85 bpm. Lungs reveal scattered bilateral rhonchi. No wheezes. No crackles. Breath sounds equal bilaterally. Saturations are 95 % on 2 L nasal cannula. Abdomen obese. No masses or tenderness. Extremities are intact. No cyanosis clubbing or edema. Skin is without rash or lesion. Neurologic examination is brief but nonfocal. - Labs CBC & Chem 7: 02/12/22 00:22 02/13/22 09:08 Labs: Abnormal Lab Results - Last 24 Hours (Table) 02/13/22 02/13/22 02/13/22 Range/Units 11:58 16:57 20:02 POC Glucose (mg/dL) 120 H 126 H 127 H (70-110) mg/dL Microbiology - Last 24 Hours (Table) 02/12/22 00:22 Blood Culture - Preliminary Blood No Growth after 48 hours Assessment and Plan Assessment: Acute hypoxemic respiratory failure secondary to acute coronavirus associated pneumonia. New onset atrial fibrillation. Morbid obesity. History of CAD, status post 2 vessel bypass grafting, 1996. History of hypertension. History of hyperlipidemia. History of diabetes mellitus. History of hypothyroidism. History of gout. Previous lap band surgery, for obesity. Plan: Plan dated 02/12/2022. The patient is seen down in the emergency department. Unfortunately, she is not vaccinated. The patient is a candidate for REM. In addition, the patient should be on Lovenox, Decadron, vitamins, and we should order inflammatory markers. In addition, consideration of a CT angiogram should be done given the new onset atrial fibrillation, and the high risk of blood clot formation in a patient with coronavirus infection. The patient's currently receiving therapeutic doses of Lovenox. Additional recommendations and suggestions are forthcoming. We will continue to follow. Plan dated 02/13/2022. The patient appears to be doing much better. She did not use BiPAP last night. She's been weaned down to 2 L nasal cannula. She clinically is feeling much improved. Labs, x-rays, and medications are reviewed. We currently have her on vitamin C, vitamin D3, zinc, Decadron, Lovenox, and REM. We will continue to follow this patient. Additional recommendations and suggestions are forthcoming. Plan dated 02/14/2022. The patient appears be doing better. We did add an albuterol inhaler. The patient has been weaned down to 2 L nasal cannula. Labs, x-rays, and medications are reviewed. The patient is receiving vitamin C, vitamin D3, zinc, Decadron, Lovenox, and REM. We will continue to follow make recommendations. Prognosis is guarded. The patient is not vaccinated. Time with Patient: Less than 30
[2022-02-14] MEDS: ACETAMINOPHEN TAB 325 MG TAB PO PRN (12:11)
--- NOTE | 2022-02-14 12:33 | P.PN ---
Subjective Progress Note Date: 02/14/22 Principal diagnosis: Covid- 19 pneumonia, she is on 2 L nasal O2, known type 2 diabetes, known coronary artery disease Patient is in room 351 2 L nasal cannula is currently on REM, also on Decadron Lovenox and vitamins currently stable Objective - Vital Signs Vital signs: Vital Signs Temp 100.8 F H 02/14/22 12:04 Pulse 98 02/14/22 12:04 Resp 26 H 02/14/22 12:04 BP 165/73 02/14/22 12:04 Pulse Ox 90 L 02/14/22 12:04 FiO2 32 02/12/22 08:20 Intake & Output 02/13/22 02/14/22 02/14/22 18:59 06:59 18:59 Intake Total 840 245 Output Total 1375 1400 200 Balance -535 -1400 45 Weight 147.418 kg Intake: IV 5 Invasive Line 1 5 Intake, IV Titration 600 Amount Sodium Chloride 0.9% 1, 600 000 ml @ 75 mls/hr IV . [id number] [facility] Rx#:[id number] Oral 240 240 Output: Urine 1375 1400 200 Other: Voiding Method External Catheter External Catheter External Catheter - Exam General: [Patient awake, alert and oriented times 3. Patient in no acute distress. Morbidly obese HEENT: [PERRL. EOMI. No pharyngeal erythema or exudate.] Neck: [No adenopathy.] Cardiac: [Heart regular in rate and rhythm. No S3. No S4. No clicks, rubs. No murmur. Midsternal surgical incision Lungs: [Clear to auscultation bilaterally. Diminished breath sounds Abdomen: [No mass. No organomegaly. Bowel sounds presnt and normoactive in all 4 quadrants. Obese Extremes: [No edema no cyanosis no claudication normal pulses] : Normal female genitalia Musculoskeletal: [No joint erythema, edema or tenderness.] Skin: [No rash.] Neurologic: [No lateralizing deficits. CN II - XII grossly intact.] Lymphatic: [No adenopathy.] - Labs CBC & Chem 7: 02/12/22 00:22 02/13/22 09:08 Labs: Abnormal Lab Results - Last 24 Hours (Table) 02/13/22 02/13/22 02/14/22 Range/Units 16:57 20:02 11:48 POC Glucose (mg/dL) 126 H 127 H 140 H (70-110) mg/dL Microbiology - Last 24 Hours (Table) 02/12/22 00:22 Blood Culture - Preliminary Blood No Growth after 48 hours Assessment and Plan (1) Type 2 diabetes mellitus Current Visit: Yes Status: Acute Code(s): E11.9 - TYPE 2 DIABETES MELLITUS WITHOUT COMPLICATIONS SNOMED Code(s): 52519726 (2) Coronary artery disease with history of coronary revascularization Current Visit: Yes Status: Acute Code(s): I25.10 - ATHSCL HEART DISEASE OF [place] CORONARY ARTERY W/O ANG PCTRS; Z98.61 - CORONARY ANGIOPLASTY STATUS SNOMED Code(s): 893850049 (3) History of hyperlipidemia Current Visit: Yes Status: Acute Code(s): Z86.39 - PERSONAL HISTORY OF ENDO, NUTRITIONAL AND METABOLIC DISEASE SNOMED Code(s): 041291047 (4) History of hypothyroidism Current Visit: Yes Status: Acute Code(s): Z86.39 - PERSONAL HISTORY OF ENDO, NUTRITIONAL AND METABOLIC DISEASE SNOMED Code(s): 756109227 (5) History of hypertension Current Visit: Yes Status: Acute Code(s): Z86.79 - PERSONAL HISTORY OF OTHER DISEASES OF THE CIRCULATORY SYSTEM SNOMED Code(s): 867866356 (6) COVID Current Visit: Yes Status: Acute Code(s): U07.1 - COVID-19 SNOMED Code(s): 838313856 (7) Cellulitis of right foot Current Visit: No Status: Acute Code(s): L03.115 - CELLULITIS OF RIGHT LOWER LIMB SNOMED Code(s): 084946384 (8) Urinary tract infection Current Visit: No Status: Acute Code(s): N39.0 - URINARY TRACT INFECTION, SITE NOT SPECIFIED SNOMED Code(s): 29503593 Plan: O2 sats stable on 2 L nasal cannula IV REM Continue IV antibiotics for urinary tract infection Resume antihypertensives if not already done Review and managed type 2 diabetes Maintain levothyroxin for hypothyroidism Continue statins for hyperlipidemia Continue supportive care Time with Patient: Greater than 30
[2022-02-14 16:42] LABS: Glucose,Whole Blood 134 mg/dL (70-110)
[2022-02-14 20:14] LABS: Glucose,Whole Blood 195 mg/dL (70-110)
[2022-02-15] MEDS: INSULIN ASPART (NovoLOG) 100 UNIT/ML VIAL SQ SCH ×7 (07:20→21:42)
[2022-02-15] MEDS: dexAMETHasone 2 MG TAB PO SCH (07:23)
[2022-02-15] MEDS: ATORVASTATIN 40 MG TAB PO SCH (07:23)
[2022-02-15 07:24] LABS: Glucose,Whole Blood 99 mg/dL (70-110)
[2022-02-15] MEDS: ISOSORBIDE MONONITRATE ER 30 MG TAB.ER.24H PO SCH (07:24)
[2022-02-15] MEDS: POTASSIUM CHLORIDE ER 20 MEQ TAB.ER PO SCH (07:24)
[2022-02-15] MEDS: ASCORBIC ACID 500 MG TAB PO SCH (07:24)
[2022-02-15] MEDS: APIXABAN 5 MG TAB PO SCH ×2 (07:24→21:41)
[2022-02-15] MEDS: LEVOTHYROXINE 50 MCG TAB PO SCH (07:24)
[2022-02-15] MEDS: GABAPENTIN 300 MG CAP PO SCH ×3 (07:24→21:42)
[2022-02-15] MEDS: FUROSEMIDE 20 MG TAB PO SCH (07:24)
[2022-02-15] MEDS: METOPROLOL TARTRATE 50 MG TAB PO SCH ×2 (07:24→21:42)
[2022-02-15] MEDS: CHOLECALCIFEROL 125 MCG (5000 IU) TABLET PO SCH (07:24)
[2022-02-15] MEDS: ZINC SULFATE 220 MG CAP PO SCH (07:24)
[2022-02-15] MEDS: OXYBUTYNIN CHLORIDE 5 MG TAB PO SCH ×2 (07:24→21:42)
[2022-02-15] MEDS: SERTRALINE 100 MG TAB PO SCH ×2 (07:24→21:42)
[2022-02-15] MEDS: INSULIN DETEMIR (LEVEMIR) 100 UNIT/ML SYR SQ SCH ×2 (07:25→21:42)
[2022-02-15] MEDS: SODIUM CHLORIDE 0.9% 1,000 ML IV SCH ×2 (07:31→16:55)
[2022-02-15] MEDS: ALBUTEROL HFA INHALER INHALATION SCH ×4 (08:38→20:25)
--- NOTE | 2022-02-15 10:42 | P.PN ---
Subjective Progress Note Date: 02/15/22 Principal diagnosis: Coronavirus associated pneumonia. Pulmonary/critical care consult dated 02/12/2022. 72-year-old female, seen in the emergency room, room 17. She is an on va ccinated obese white female, who presents to the emergency room, with a couple days with increasing shortness of breath, cough, fever, muscle aches, and joint aches. She apparently did a home test for coronavirus 2 days ago, and it was positive. Because of worsening complaints, she came to the emergency room to be evaluated. She seen in the ER. She's currently on BiPAP with settings of 12/5 and 32%. She's not receiving any IV fluids. The patient has a history of hyperlipidemia, diabetes, hypothyroidism, and hypertension. She also has a history of hypothyroidism. White count 6.2, hemoglobin 9.6, hematocrit 30.4, platelet count 269,000. D-dimer is 1.35. Sodium 134, potassium 5.7, chlorides 102, CO2 25, BUN 18, creatinine 0.93. Troponin was 0.212. LDH was 514. C- reactive protein was 1.5. Testing for rangel virus was positive. Chest x-ray shows diffuse bilateral infiltrates. Progress note dated 02/13/2022. The patient is seen today, in room 351. The patient was seen yesterday in consultation, in the emergency department. Today, she appears to be doing much better. She is on 2 L nasal cannula. She apparently did not use of BiPAP overnight. Her breathing is much improved. She is not vaccinated. She was admitted with a diagnosis of acute hypoxemic respiratory failure, secondary to coronavirus associated pneumonia. Sodium 137, potassium 4.6, chlorides 105, CO2 27, BUN 33, creatinine 1.08. Troponin was 0.141. N-terminal proBNP was 7910. CT angiogram showed no evidence of central pulmonary embolism, but did show diffuse patchy groundglass opacities consistent with coronavirus pneumonia. Progress note dated 02/14/2022. The patient is again seen in room 351. She remains on nasal O2 at 2 L. She did not use of BiPAP last night, and I've asked respiratory to remove it from the room. She is receiving REM, day 3. She is also on Decadron, Lovenox, and vitamins. She is not vaccinated. No new laboratory data today. According to the nurse, she was wheezing, we've added an albuterol inhaler. Progress note dated 02/15/2022. The patient is again seen today, in room 351. She remains on a couple liters of oxygen. She did used to BiPAP last night. She does use CPAP at home. She is on day #4 of REM. In addition, she's taking Decadron, Lovenox, and vitamins. We've also added an albuterol inhaler. No new laboratory data today. Objective - Vital Signs Vital signs: Vital Signs Temp 97.1 F L 02/15/22 07:32 Pulse 68 02/15/22 07:32 Resp 20 02/15/22 07:32 BP 156/75 02/15/22 07:32 Pulse Ox 99 02/15/22 07:32 FiO2 32 02/15/22 03:50 Intake & Output 02/14/22 02/15/22 02/15/22 18:59 06:59 18:59 Intake Total 485 365 Output Total 600 1550 Balance -115 -1550 365 Intake: IV 5 5 Invasive Line 1 5 5 Oral 480 360 Output: Urine 600 1550 Other: Voiding Method External Catheter External Catheter External Catheter - Exam No acute distress, oriented 3. The patient is currently on 2 L nasal cannula. No obvious respiratory distress. No audible wheezing, use of accessory muscles, or conversational dyspnea. HEENT examination is grossly unremarkable. Neck supple. Full range of motion. No adenopathy thyromegaly or neck vein distention. Cardiovascular examination reveals irregular rhythm and rate. S1-S2 normal. No S3 or S4. No discernible murmur noted. Heart sounds are distant. Heart rate 68 bpm. Lungs reveal scattered bilateral rhonchi. No wheezes. No crackles. Breath sounds equal bilaterally. Saturations are 99 % on 2 L nasal cannula. Abdomen obese. No masses or tenderness. Extremities are intact. No cyanosis clubbing or edema. Skin is without rash or lesion. Neurologic examination is brief but nonfocal. - Labs CBC & Chem 7: 02/12/22 00:22 02/13/22 09:08 Labs: Abnormal Lab Results - Last 24 Hours (Table) 02/14/22 02/14/22 02/14/22 Range/Units 11:48 16:39 20:13 POC Glucose (mg/dL) 140 H 134 H 195 H (70-110) mg/dL Microbiology - Last 24 Hours (Table) 02/12/22 00:22 Blood Culture - Preliminary Blood No Growth after 72 hours Assessment and Plan Assessment: Acute hypoxemic respiratory failure secondary to acute coronavirus associated pneumonia. New onset atrial fibrillation. Morbid obesity. History of CAD, status post 2 vessel bypass grafting, 1996. History of hypertension. History of hyperlipidemia. History of diabetes mellitus. History of hypothyroidism. History of gout. Previous lap band surgery, for obesity. Plan: Plan dated 02/12/2022. The patient is seen down in the emergency department. Unfortunately, she is not vaccinated. The patient is a candidate for REM. In addition, the patient should be on Lovenox, Decadron, vitamins, and we should order inflammatory markers. In addition, consideration of a CT angiogram should be done given the new onset atrial fibrillation, and the high risk of blood clot formation in a patient with coronavirus infection. The patient's currently receiving therapeutic doses of Lovenox. Additional recommendations and suggestions are forthcoming. We will continue to follow. Plan dated 02/13/2022. The patient appears to be doing much better. She did not use BiPAP last night. She's been weaned down to 2 L nasal cannula. She clinically is feeling much improved. Labs, x-rays, and medications are reviewed. We currently have her on vitamin C, vitamin D3, zinc, Decadron, Lovenox, and REM. We will continue to follow this patient. Additional recommendations and suggestions are forthcoming. Plan dated 02/14/2022. The patient appears be doing better. We did add an albuterol inhaler. The patient has been weaned down to 2 L nasal cannula. Labs, x-rays, and medications are reviewed. The patient is receiving vitamin C, vitamin D3, zinc, Decadron, Lovenox, and REM. We will continue to follow make recommendations. Prognosis is guarded. The patient is not vaccinated. Plan dated 02/15/2022. The patient is doing much better. She remains on 2 L nasal cannula. Saturations are 99%. After today, she has 1 more day of REM. We did order a chest x-ray for the morning. The patient remains on vitamin C, vitamin D3, zinc, Decadron, and Lovenox. Labs, x-rays, and medications are reviewed. Prognosis is guarded. We will continue to follow make recommendations. Time with Patient: Less than 30
--- NOTE | 2022-02-15 11:07 | P.PN ---
Subjective Progress Note Date: 02/15/22 Principal diagnosis: COVID-19 pneumonia Patient in room 351. Maintaining oxygen saturations greater than 95% on 2 L nasal cannula at this time. She does use CPAP at home and did utilize it last night which she states made her sleep much better. Known type 2 diabetes and also coronary artery disease. Patient medication regimen REM (day 4), and is also on Decadron, Lovenox, and vitamins. Patient is resting comfortably in bed and has no complaints at this time of chest pain or pressure, fever, nausea, vomiting or diarrhea. No new lab work at this time Objective - Vital Signs Vital signs: Vital Signs Temp 97.1 F L 02/15/22 07:32 Pulse 68 02/15/22 07:32 Resp 20 02/15/22 07:32 BP 156/75 02/15/22 07:32 Pulse Ox 99 02/15/22 07:32 FiO2 32 02/15/22 03:50 Intake & Output 02/14/22 02/15/22 02/15/22 18:59 06:59 18:59 Intake Total 485 365 Output Total 600 1550 Balance -115 -1550 365 Intake: IV 5 5 Invasive Line 1 5 5 Oral 480 360 Output: Urine 600 1550 Other: Voiding Method External Catheter External Catheter External Catheter - Exam GENERAL: Alert and oriented 3, Well-appearing, well-nourished and in no acute distress. HEAD: Atraumatic, normocephalic. EYES: Pupils equal round and reactive to light, extraocular movements intact, sclera anicteric, conjunctiva are normal. ENT:nares patent, oropharynx clear without exudates. Moist mucous membranes. NECK: Normal range of motion, supple without lymphadenopathy or JVD, no thyromegaly LUNGS: Breath sounds clear and diminished to auscultation, no wheezes HEART: Regular rate and rhythm without murmurs, rubs or gallops.S1S2 Normal ABDOMEN: Soft, nontender, normoactive bowel sounds. No guarding, no rebound. No masses appreciated. Obese EXTREMITIES: Normal range of motion, no pitting or edema. No clubbing or cyanosis. NEUROLOGICAL: Cranial nerves II through XII grossly intact. Normal speech, normal gait. PSYCH: Normal mood, normal affect. SKIN: Warm, Dry, no rashes or lesions noted. - Labs CBC & Chem 7: 02/12/22 00:22 02/13/22 09:08 Labs: Abnormal Lab Results - Last 24 Hours (Table) 02/14/22 02/14/22 02/14/22 Range/Units 11:48 16:39 20:13 POC Glucose (mg/dL) 140 H 134 H 195 H (70-110) mg/dL Microbiology - Last 24 Hours (Table) 02/12/22 00:22 Blood Culture - Preliminary Blood No Growth after 72 hours Assessment and Plan (1) COVID Current Visit: Yes Status: Acute Code(s): U07.1 - COVID-19 SNOMED Code(s): 853611031 (2) Coronary artery disease with history of coronary revascularization Current Visit: Yes Status: Acute Code(s): I25.10 - ATHSCL HEART DISEASE OF [place] CORONARY ARTERY W/O ANG PCTRS; Z98.61 - CORONARY ANGIOPLASTY STATUS SNOMED Code(s): 375333363 (3) History of hyperlipidemia Current Visit: Yes Status: Acute Code(s): Z86.39 - PERSONAL HISTORY OF ENDO, NUTRITIONAL AND METABOLIC DISEASE SNOMED Code(s): 841690900 (4) History of hypertension Current Visit: Yes Status: Acute Code(s): Z86.79 - PERSONAL HISTORY OF OTHER DISEASES OF THE CIRCULATORY SYSTEM SNOMED Code(s): 960961774 (5) History of hypothyroidism Current Visit: Yes Status: Acute Code(s): Z86.39 - PERSONAL HISTORY OF ENDO, NUTRITIONAL AND METABOLIC DISEASE SNOMED Code(s): 397970276 (6) Type 2 diabetes mellitus Current Visit: Yes Status: Acute Code(s): E11.9 - TYPE 2 DIABETES MELLITUS WITHOUT COMPLICATIONS SNOMED Code(s): 27708991 (7) Cellulitis of right foot Current Visit: No Status: Acute Code(s): L03.115 - CELLULITIS OF RIGHT LOWER LIMB SNOMED Code(s): 659704180 (8) Urinary tract infection Current Visit: No Status: Acute Code(s): N39.0 - URINARY TRACT INFECTION, SITE NOT SPECIFIED SNOMED Code(s): 67228331 Plan: Continue current medication regimen as previous prescribed IV REM We'll continue with BiPAP at night Continue to monitor vitals and labs and treat accordingly We'll reevaluate again tomorrow Time with Patient: Greater than 30
[2022-02-15] MEDS: REMDESIVIR 100 MG in SODIUM CHLORIDE 0.9% 250 ML IVPB SCH (11:26)
[2022-02-15 11:34] LABS: Glucose,Whole Blood 142 mg/dL (70-110)
[2022-02-15 16:55] LABS: Glucose,Whole Blood 214 mg/dL (70-110)
[2022-02-15 20:25] LABS: Glucose,Whole Blood 246 mg/dL (70-110)
[2022-02-15] MEDS ORDERED: VANCOMYCIN IV PER PHARMACY 1 EACH MISC MISCELLANE PRN (23:24)
[2022-02-15] MEDS ORDERED: VANCOMYCIN 2,000 MG in SODIUM CHLORIDE 0.9% 500 ML 500 ML IVPB STA (23:36)
[2022-02-16] MEDS: SODIUM CHLORIDE 0.9% 1,000 ML IV SCH (05:32)
[2022-02-16 06:20] LABS: Glucose,Whole Blood 127 mg/dL (70-110)
[2022-02-16] MEDS: INSULIN ASPART (NovoLOG) 100 UNIT/ML VIAL SQ SCH ×6 (06:33→17:52)
[2022-02-16] MEDS: LEVOTHYROXINE 50 MCG TAB PO SCH (06:55)
[2022-02-16] MEDS: INSULIN DETEMIR (LEVEMIR) 100 UNIT/ML SYR SQ SCH (06:55)
--- NOTE | 2022-02-16 07:32 | XR ---
EXAMINATION TYPE: XR chest 1V portable DATE OF EXAM: 02/16/2022 HISTORY: Shortness of breath. COMPARISON: 02/11/2022 TECHNIQUE: Single view of the chest is submitted. FINDINGS: Demonstrated are scattered senescent parenchymal change. Coarse perihilar and basilar infiltrates persist. The heart is stable. Hilar and mediastinal structures are within normal limits. Degenerative changes are seen of the dorsal spine. IMPRESSION: 1. Coarse perihilar and basilar infiltrates persist.
[2022-02-16 08:09] LABS: African American GFR (CKD) >90 (>60 ml/min/1.73 sqM); Non-African American GFR(CKD) 84 (>60 ml/min/1.73 sqM)
[2022-02-16] MEDS: ALBUTEROL HFA INHALER INHALATION SCH ×3 (08:44→16:16)
[2022-02-16] MEDS: REMDESIVIR 100 MG in SODIUM CHLORIDE 0.9% 250 ML IVPB SCH (10:00)
[2022-02-16] MEDS: SERTRALINE 100 MG TAB PO SCH (10:00)
[2022-02-16] MEDS: POTASSIUM CHLORIDE ER 20 MEQ TAB.ER PO SCH (10:00)
[2022-02-16] MEDS: GABAPENTIN 300 MG CAP PO SCH ×2 (10:00→17:15)
[2022-02-16] MEDS: OXYBUTYNIN CHLORIDE 5 MG TAB PO SCH (10:00)
[2022-02-16] MEDS: dexAMETHasone 2 MG TAB PO SCH (10:00)
[2022-02-16] MEDS: APIXABAN 5 MG TAB PO SCH (10:00)
[2022-02-16] MEDS: ZINC SULFATE 220 MG CAP PO SCH ×2 (10:00→10:01)
[2022-02-16] MEDS: ASCORBIC ACID 500 MG TAB PO SCH (10:00)
[2022-02-16] MEDS: CHOLECALCIFEROL 125 MCG (5000 IU) TABLET PO SCH (10:01)
[2022-02-16] MEDS: FUROSEMIDE 20 MG TAB PO SCH (10:01)
[2022-02-16] MEDS: ATORVASTATIN 40 MG TAB PO SCH (10:01)
[2022-02-16] MEDS: METOPROLOL TARTRATE 50 MG TAB PO SCH (10:03)
[2022-02-16] MEDS: ISOSORBIDE MONONITRATE ER 30 MG TAB.ER.24H PO SCH (10:03)
[2022-02-16 11:43] LABS: Glucose,Whole Blood 139 mg/dL (70-110)
--- NOTE | 2022-02-16 12:12 | P.DS ---
Providers Date of admission: 02/12/22 00:36 Expected date of discharge: 02/16/22 Attending physician: Maik Jama Consults: 02/11/22 23:56 Consult Physician Routine Consulting Provider: Jonathan Lewis Consult Reason/Comments: COVID Do you want consulting provider notified?: Yes, Notify in am 02/12/22 04:42 Consult Physician Routine Consulting Provider: Gus Pascal Consult Reason/Comments: atrial fibrillation with rapid ventricular rate Do you want consulting provider notified?: Yes 02/16/22 08:14 Consult Physician Routine Consulting Provider: Ramiro Ellington Consult Reason/Comments: COVID pneumonia, positive blood cultures Do you want consulting provider notified?: Yes Primary care physician: [facility] Course: Final Diagnoses: Sepsis secondary to Acute Covid -19 pneumonia Acute hypoxic respiratory failure secondary to the above New-onset atrial fibrillation, RVR, CAD, history of CABG Hypertension hyperlipidemia Diabetes mellitus Hypothyroidism History of bariatric surgery Morbid obesity, BMI 59.4 Hospital course:H&P Date: 02/12/22 Chief Complaint: shortness of breath This is a 72-year-old female with past medical history of morbid obesity, BMI 59.4, CAD, CABG, bariatric surgery diabetes mellitus, hypertension, obstructive sleep apnea, hypothyroidism and multiple other medical issues reported yesterday morning upon awakening developed a cough with progressive shortness of breath, fevers ,chills , body aches and palpitations. Patient had been around her brother who was positive for coronavirus. Her BiPAP machine at home is broken .Tested positive for COVID. T-max 100.5, normal WBC, hemoglobin 9.6, platelets 169, d-dimer elevated 1.35, sodium 134, BUN 18, creatinine 0.93, lactic acid 1.2, glucose 241, T bili 2.4, troponin 0.212, LDH 514, CRP 1.5, BNP 6060. On admission 93% on room air, tachypneic with respiratory rate in the mid 20s, tachycardic with heart rates in the 130s. Received IV Lopressor. EKG reported drug fibrillation with RVR .Currently on BiPAP, FiO2 32%, expiratory pressure 5, rate 12, maintaining O2 sats in the 90s. Chest x-ray reporting pulmonary i nterstitial edema new compared to old. 02/13/2022 doing better this morning, maintaining O2 sats in the 90s on 2 L nasal cannula. Reports did not use BiPAP last night.CTA reported no evidence of central pulmonary embolism, diffuse patchy groundglass opacities.BNP 7910, troponin 0.212, 0.141. Continues on on Covid cocktail, remdesivir. Renal function mildly worsened, BUN 33, creatinine 1.08. Telemetry A. fib, with controlled ventricular rate. Echo reported limited and difficult study, normal systolic function, LVEF estimated at 55-60%. Evaluated and treated by pulmonary, maintained on on Covid cocktail, remdesivir. Maintaining O2 sats in the 90s on 2 L nasal cannula. Chest x-ray pending. Significant clinical improvement.Patient reports her CPAP machine was recalled, nearly a year ago...... doesn't recall the name of the company. Afebrile. Evaluated by physical therapy. Currently O2 sat on room air after ambulation pending for discharge planning.-Blood culture from 02/12 reported gram-positive cocci, and on 02/16 blood cultures reported as coagulase-negative staph. Currently maintained on Rocephin and vancomycin .Patient will be discharged home today in a stable condition with guarded prognosis, pending final DC recommendations and clearance per ID and pulmonary.Eliquis RX coverage being verified by case management. The impression and plan of care has been dictated as directed. : I performed a history and examination of this patient, discussed the same with the dictator. I agree with the dictator's note ,documented as a scribe. Any additional findings or plans will be noted. Patient Condition at Discharge: Stable Plan - Discharge Summary Discharge Rx Participant: No New Discharge Prescriptions: New dexAMETHasone ORAL [Hexadrol] 6 mg PO DAILY #15 tab Metoprolol Tartrate [Lopressor] 50 mg PO BID #60 tab Zinc Sulfate [Orazinc] 220 mg PO DAILY #30 cap Insulin Aspart [NovoLOG] 0 units SQ ACHS #10 ml Continue Insulin Detemir (Levemir) [Levemir] 60 unit SQ BID Atorvastatin [Lipitor] 40 mg PO DAILY Aspirin 81 mg PO DAILY Sertraline [Zoloft] 100 mg PO BID Levothyroxine Sodium [Tirosint] 50 mcg PO DAILY Isosorbide Mononitrate [Isosorbide Mononitrate ER] 30 mg PO DAILY Potassium Chloride [Klor-Con 10 ER] 20 meq PO DAILY Oxybutynin Chloride 5 mg PO BID Furosemide [Lasix] 20 mg PO DAILY Gabapentin [Neurontin] 300 mg PO TID INSULIN ASPART (NovoLOG) [NovoLOG (formulary)] 40 unit SQ AC-TID #15 Discontinued Metoprolol Tartrate [Lopressor] 50 mg PO DAILY Discharge Medication List Aspirin 81 mg PO DAILY 08/10/16 [History] Atorvastatin [Lipitor] 40 mg PO DAILY 08/10/16 [History] Insulin Detemir (Levemir) [Levemir] 60 unit SQ BID 08/10/16 [History] Isosorbide Mononitrate [Isosorbide Mononitrate ER] 30 mg PO DAILY 08/10/16 [Hist ory] Levothyroxine Sodium [Tirosint] 50 mcg PO DAILY 08/10/16 [History] Oxybutynin Chloride 5 mg PO BID 08/10/16 [History] Potassium Chloride [Klor-Con 10 ER] 20 meq PO DAILY 08/10/16 [History] Sertraline [Zoloft] 100 mg PO BID 08/10/16 [History] Furosemide [Lasix] 20 mg PO DAILY 11/16/21 [History] Gabapentin [Neurontin] 300 mg PO TID 11/16/21 [History] INSULIN ASPART (NovoLOG) [NovoLOG (formulary)] 40 unit SQ AC-TID #15 02/16/22 [Rx] Insulin Aspart [NovoLOG] 0 units SQ ACHS #10 ml 02/16/22 [Rx] Metoprolol Tartrate [Lopressor] 50 mg PO BID #60 tab 02/16/22 [Rx] Zinc Sulfate [Orazinc] 220 mg PO DAILY #30 cap 02/16/22 [Rx] dexAMETHasone ORAL [Hexadrol] 6 mg PO DAILY #15 tab 02/16/22 [Rx] Follow up Appointment(s)/Referral(s): Marcelino Cruz Jr, [Primary Care Provider] - 3 Days Activity/Diet/Wound Care/Special Instructions: Home Care [facility] - [phone]
--- NOTE | 2022-02-16 13:43 | P.PN ---
Subjective Progress Note Date: 02/16/22 72-year-old female, seen in the emergency room, room 17. She is an on vaccinated obese white female, who presents to the emergency room, with a couple days with increasing shortness of breath, cough, fever, muscle aches, and joint aches. She apparently did a home test for coronavirus 2 days ago, and it was positive. Because of worsening complaints, she came to the emergency room to be evaluated. She seen in the ER. She's currently on BiPAP with settings of 12/5 and 32%. She's not receiving any IV fluids. The patient has a history of hyperlipidemia, diabetes, hypothyroidism, and hypertension. She also has a history of hypothyroidism. White count 6.2, hemoglobin 9.6, hematocrit 30.4, platelet count 269,000. D-dimer is 1.35. Sodium 134, potassium 5.7, chlorides 102, CO2 25, BUN 18, creatinine 0.93. Troponin was 0.212. LDH was 514. C- reactive protein was 1.5. Testing for rangel virus was positive. Chest x-ray shows diffuse bilateral infiltrates. Progress note dated 02/13/2022. The patient is seen today, in room 351. The patient was seen yesterday in consultation, in the emergency department. Today, she appears to be doing much better. She is on 2 L nasal cannula. She apparently did not use of BiPAP overnight. Her breathing is much improved. She is not vaccinated. She was admitted with a diagnosis of acute hypoxemic respiratory failure, secondary to coronavirus associated pneumonia. Sodium 137, potassium 4.6, chlorides 105, CO2 27, BUN 33, creatinine 1.08. Troponin was 0.141. N-terminal proBNP was 7910. CT angiogram showed no evidence of central pulmonary embolism, but did show diffuse patchy groundglass opacities consistent with coronavirus pneumonia. Progress note dated 02/14/2022. The patient is again seen in room 351. She remains on nasal O2 at 2 L. She did not use of BiPAP last night, and I've asked respiratory to remove it from the room. She is receiving REM, day 3. She is also on Decadron, Lovenox, and vitamins. She is not vaccinated. No new laboratory data today. According to the nurse, she was wheezing, we've added an albuterol inhaler. Progress note dated 02/15/2022. The patient is again seen today, in room 351. She remains on a couple liters of oxygen. She did used to BiPAP last night. She does use CPAP at home. She is on day #4 of REM. In addition, she's taking Decadron, Lovenox, and vitamins. We've also added an albuterol inhaler. No new laboratory data today. On today's evaluation of 02/16/2022, the patient is doing well. The patient has no specific complaints. The patient was weaned down to 2 L about 2 by nasal cannula and she is also being checked on room air oxygen. She feels that she is gradually recovering from her Combivent and infection. The patient's CAT scan of the chest also showed some small bilateral pleural effusion and the patient proBNP level was elevated and obviously there was a concern for an underlying CHF as another contributing factor for hypoxemic respiratory failure. Otherwise, the patient is a obese 72-year-old female patient with a BMI 59.4. The patient has noted associated vaccination COVID 19. The patient has no altered mentation. No other significant events overnight otherwise for now. She is completing a course of Remdesivir and she remains on Decadron 6 mg when necessary daily basis. She is also multivitamin. Objective - Vital Signs Vital signs: Vital Signs Temp 98.4 F 02/16/22 04:00 Pulse 77 02/16/22 04:00 Resp 19 02/16/22 04:00 BP 147/76 02/16/22 04:00 Pulse Ox 99 02/16/22 04:00 FiO2 32 02/16/22 04:23 Intake & Output 02/15/22 02/16/22 02/16/22 18:59 06:59 18:59 Intake Total 735 170 118 Output Total 1900 950 650 Balance -1165 -780 -532 Intake: IV 5 Invasive Line 1 5 Intake, IV Titration 250 50 Amount Remdesivir 100 mg In 250 Sodium Chloride 0.9% 250 ml @ 250 mls/hr IVPB DAILY LD Rx#:[id number] cefTRIAXone 1 gm In 50 Sodium Chloride 0.9% 50 ml @ 100 mls/hr IVPB Q24H LD Rx#:[id number] Oral 480 120 118 Output: Urine 1900 950 650 Other: Voiding Method External Catheter External Catheter # Voids 1 # Bowel Movements 0 1 - Exam No acute distress, oriented 3. The patient is currently on 2 L nasal cannula. No obvious respiratory distress. No audible wheezing, use of accessory muscles, or conversational dyspnea. Room air pulse ox is down to 86%, and the patient is morbidly obese Head exam was generally normal. There was no scleral icterus or corneal arcus. Mucous membranes were moist. HEENT examination is grossly unremarkable. Neck supple. Full range of motion. No adenopathy thyromegaly or neck vein distention. Cardiovascular examination reveals irregular rhythm and rate. S1-S2 normal. No S3 or S4. No discernible murmur noted. Heart sounds are distant. Lungs reveal scattered bilateral rhonchi. No wheezes. No crackles. Breath sounds equal bilaterally. Abdomen obese. No masses or tenderness. Extremities are intact. No cyanosis clubbing or edema. Skin is without rash or lesion. Neurologic examination is brief but nonfocal. - Labs CBC & Chem 7: 02/12/22 00:22 02/16/22 07:24 Labs: Abnormal Lab Results - Last 24 Hours (Table) 02/15/22 02/15/22 02/15/22 Range/Units 11:30 16:53 20:14 POC Glucose (mg/dL) 142 H 214 H 246 H (70-110) mg/dL 02/16/22 Range/Units 06:18 POC Glucose (mg/dL) 127 H (70-110) mg/dL Microbiology - Last 24 Hours (Table) 02/12/22 00:22 Blood Culture Gram Stain - Preliminary Blood Blood Culture - Preliminary Coagulase Negative Staph 02/12/22 00:22 Blood Culture - Final Blood Assessment and Plan Plan: Acute hypoxemic respiratory failure secondary to acute coronavirus associated pneumonia, on 2 liters , on Decadron and Remdesivir day#5, the patient remains on Decadron. Clinically improved. She is requiring O2 at 2 L. Room air pulse ox 86% on the patient will qualify for home O2. New onset atrial fibrillation, rate is contoled on Metoprolol and Eliquis Morbid obesity. History of CAD, status post 2 vessel bypass grafting, 1996. History of hypertension. History of hyperlipidemia. History of diabetes mellitus. History of hypothyroidism. History of gout. Previous lap band surgery, for obesity. Plan: Arrange home O2 Complete a course of Decadron 6 mg The patient completed the course of Remdesivir Resume all medications Blood culture consistent with coagulase-negative staph No need for further antibiotic therapy Possible discharge home today. Change IV fluids to KVO.
[2022-02-16 14:28] LABS: Appearance,Urine Clear (Clear); Bacteria,Urine Rare /hpf; Bilirubin,Urine Negative (Negative); Blood,Urine Negative (Negative); Color,Urine Light Yellow; Glucose,Urine (UA) Negative (Negative); Ketones,Urine Negative (Negative); Leukocyte Esterase,Urine Moderate (Negative); Nitrite,Urine Positive (Negative); PH, Urine 5.5 (5.0-8.0); Protein,Urine Negative (Negative); RBC,Urine 1 /hpf (0-5); Specific Gravity,Urine 1.012 (1.001-1.035); Squamous Epithelial Cell,Urine <1 /hpf (0-4); Urobilinogen,Urine <2.0 mg/dL (<2.0); WBC,Urine 27 /hpf (0-5)
[2022-02-16] MEDS ORDERED: VANCOMYCIN 2,000 MG in SODIUM CHLORIDE 0.9% 500 ML 500 ML IVPB SCH (16:00)
[2022-02-16 16:46] LABS: Glucose,Whole Blood 184 mg/dL (70-110)
[2022-02-16 17:52] VITALS: BP 120/75; PULSE 70; RESP 17; TEMP 98.1
== END 2022-02-16 18:10 | disposition home health service (06) | DRG 871 ==
LOC: EC 21:33 → 4SSUR 02-12 00:36 → 3SCARD 02-12 02:09
PROVIDERS: ADMIT Family Medicine; ATTEND Family Medicine
PROC: XW033E5 Introduction of Remdesivir Anti-infective into Peripheral Vein, Percutaneous Approach, New Technology Group 5 (ICD-10-PCS; principal; 2022-02-12)
PROC: 5A09357 Assistance with Respiratory Ventilation, Less than 24 Consecutive Hours, Continuous Positive Airway Pressure (ICD-10-PCS; principal; 2022-02-12)
DX: A41.89 Other specified sepsis (principal); J12.82 Pneumonia due to coronavirus disease 2019; U07.1 COVID-19; J96.01 Acute respiratory failure with hypoxia; J44.0 Chronic obstructive pulmonary disease with (acute) lower respiratory infection; Z68.43 Body mass index [BMI] 50.0-59.9, adult; L03.115 Cellulitis of right lower limb; N39.0 Urinary tract infection, site not specified; E03.9 Hypothyroidism, unspecified; E11.22 Type 2 diabetes mellitus with diabetic chronic kidney disease; E66.01 Morbid (severe) obesity due to excess calories; E78.5 Hyperlipidemia, unspecified; F32.A Depression, unspecified; G47.33 Obstructive sleep apnea (adult) (pediatric); I12.9 Hypertensive chronic kidney disease with stage 1 through stage 4 chronic kidney disease, or unspecified chronic kidney disease; N18.30 Chronic kidney disease, stage 3 unspecified; I25.10 Atherosclerotic heart disease of native coronary artery without angina pectoris; I48.91 Unspecified atrial fibrillation; Z71.3 Dietary counseling and surveillance; Z28.310 Unvaccinated for COVID-19; M19.90 Unspecified osteoarthritis, unspecified site; M10.9 Gout, unspecified; R77.8 Other specified abnormalities of plasma proteins; G89.29 Other chronic pain; M54.9 Dorsalgia, unspecified; R79.89 Other specified abnormal findings of blood chemistry; Z79.4 Long term (current) use of insulin; Z79.82 Long term (current) use of aspirin; Z79.890 Hormone replacement therapy; Z79.899 Other long term (current) drug therapy; Z95.1 Presence of aortocoronary bypass graft; Z98.84 Bariatric surgery status; Z87.19 Personal history of other diseases of the digestive system; Z91.81 History of falling; Z87.440 Personal history of urinary (tract) infections; Z86.19 Personal history of other infectious and parasitic diseases; Z88.6 Allergy status to analgesic agent; Z88.0 Allergy status to penicillin; Z82.49 Family history of ischemic heart disease and other diseases of the circulatory system; Z83.3 Family history of diabetes mellitus; Z80.8 Family history of malignant neoplasm of other organs or systems; Z80.42 Family history of malignant neoplasm of prostate
CPT/HCPCS: 36415; 71045; 71046; 71275; 80048; 80053; 81001; 82565; 83036; 83605; 83615; 83880; 84132; 84145; 84484; 85025; 85379; 86140; 87040; 87635; 93005; 93308; 94640; 94660; 96372; 96374; 96375; 96376; 99285

== ENCOUNTER 2022-04-06 11:34 | Inpatient (IN) | payer MEDICARE, OTHER ==
[2022-04-06] MEDS ORDERED: ALBUTEROL NEBULIZED 2.5 MG/3 ML INHALATION STA (12:03)
--- NOTE | 2022-04-06 12:12 | ED ---
SOB HPI - General Chief Complaint: Shortness of Breath Stated Complaint: KEARA Time Seen by Provider: 04/06/22 11:53 Source: patient, family, EMS, RN notes reviewed, old records reviewed Mode of arrival: EMS Limitations: no limitations - History of Present Illness Initial Comments: Patient is a 72-year-old female presenting to the emergency room via EMS with worsening shortness of breath and tachypnea. She was hospitalized in January for Covid and was discharged home on 2 L nasal cannula; she was also newly diagnosed with atrial fibrillation and was discharged home on Eliquis. She reports that she has chronic shortness of breath at rest but has had an increase in her shortness of breath and has become to With conversation. She states that she has been taking her medications as prescribed. In addition to her shortness of breath she has had some generalized malaise, cough and anxiety. She denies any typical chest pain, abdominal pain, nausea vomiting, fevers or chills. Reports lower extremity edema seems to be at baseline along with rash to her lower right extremity. She has a past medical history significant in addition to A. fib and Covid as indicated above of anemia, diabetes, COPD, CAD, hypertension, hyperlipidemia, FLORES, medicated, hypothyroidism and chronic kidney disease stage III. - Related Data Home Medications Medication Instructions Recorded Confirmed Aspirin 81 mg PO DAILY 08/10/16 02/12/22 Atorvastatin [Lipitor] 40 mg PO DAILY 08/10/16 02/12/22 Insulin Detemir (Levemir) [Levemir] 60 unit SQ BID 08/10/16 02/12/22 Isosorbide Mononitrate [Isosorbide 30 mg PO DAILY 08/10/16 02/12/22 Mononitrate ER] Levothyroxine Sodium [Tirosint] 50 mcg PO DAILY 08/10/16 02/12/22 Oxybutynin Chloride 5 mg PO BID 08/10/16 02/12/22 Potassium Chloride [Klor-Con 10 ER] 20 meq PO DAILY 08/10/16 02/12/22 Sertraline [Zoloft] 100 mg PO BID 08/10/16 02/12/22 Furosemide [Lasix] 20 mg PO DAILY 11/16/21 02/12/22 Gabapentin [Neurontin] 300 mg PO TID 11/16/21 02/12/22 Previous Rx's Medication Instructions Recorded Apixaban [Eliquis] 5 mg PO BID #60 tab 02/16/22 INSULIN ASPART (NovoLOG) [NovoLOG 40 unit SQ AC-TID #15 02/16/22 (formulary)] Insulin Aspart [NovoLOG] 0 units SQ ACHS #10 ml 02/16/22 Metoprolol Tartrate [Lopressor] 50 mg PO BID #60 tab 02/16/22 Zinc Sulfate [Orazinc] 220 mg PO DAILY #30 cap 02/16/22 cefUROXime axetiL [Cefuroxime] 500 mg PO BID 3 Days #6 tab 02/16/22 dexAMETHasone ORAL [Hexadrol] 6 mg PO DAILY #15 tab 02/16/22 Allergies Allergy/AdvReac Type Severity Reaction Status Date / Time ibuprofen [From Motrin] Allergy Rash/Hives Verified 02/12/22 06:15 Penicillins Allergy Anaphylaxis Verified 02/12/22 06:15 Review of Systems ROS Statement: Those systems with pertinent positive or pertinent negative responses have been documented in the HPI. ROS Other: All systems not noted in ROS Statement are negative. Past Medical History Past Medical History: Coronary Artery Disease (CAD), Diabetes Mellitus, Eye Disorder, Hyperlipidemia, Hypertension, Osteoarthritis (OA), Renal Disease, Sleep Apnea/CPAP/BIPAP, Thyroid Disorder Additional Past Medical History / Comment(s): IDDM type II, L eye retinal bleed/lasik eye surgery, R eye cataract, bilateral eye macular degeneration/gets injections/poor vision, CKD stage III, anemia, UTI/sepsis, bilateral leg lymphedema, FLORES/does not have cpap machine at this time, diverticulitis, gout, chronic back pain, rheumatic fever, hypothyroid. History of Any Multi-Drug Resistant Organisms: None Reported Past Surgical History: Bariatric Surgery, Section, Cholecystectomy, Coronary Bypass/CABG, Heart Catheterization, Hysterectomy, Tonsillectomy Additional Past Surgical History / Comment(s): A 2 vessel CABG in 1996, bilateral carpal tunnel release, lap band, L eye laser surgery, Past Anesthesia/Blood Transfusion Reactions: No Reported Reaction Past Psychological History: Depression Smoking Status: Never smoker Past Alcohol Use History: None Reported Past Drug Use History: None Reported - Past Family History Father Family Medical History: Cancer, Coronary Artery Disease (CAD), Diabetes Mellitus Additional Family Medical History / Comment(s): Prostate cancer Mother Family Medical History: Cancer Additional Family Medical History / Comment(s): Bone cancer. General Exam General appearance: alert, obese Head exam: Present: atraumatic, normocephalic, normal inspection Eye exam: Present: normal appearance, PERRL, EOMI. Absent: scleral icterus, conjunctival injection, periorbital swelling ENT exam: Present: normal exam, mucous membranes moist Respiratory exam: Present: accessory muscle use, decreased breath sounds, other (mild tachypnea, lung sounds difficult to auscultate due to body habitus). Ab sent: respiratory distress Cardiovascular Exam: Present: irregular rhythm, normal heart sounds. Absent: systolic murmur, diastolic murmur, rubs, gallop GI/Abdominal exam: Present: soft, other (Round). Absent: distended, tenderness, guarding, rebound Extremities exam: Present: pedal edema (Bilateral lower extremity +2-3) Back exam: Present: normal inspection Neurological exam: Present: alert, oriented X3, CN II-XII intact Psychiatric exam: Present: anxious Skin exam: Present: rash (Right lower extremity chronic) Course Vital Signs 04/06/22 04/06/22 04/06/22 11:47 12:13 12:29 Temperature 98.0 F Pulse Rate 101 H 107 H 101 H Respiratory 30 H Rate Blood Pressure 125/74 O2 Sat by Pulse 96 Oximetry 04/06/22 14:29 Temperature 98.9 F Pulse Rate 111 H Respiratory 16 Rate Blood Pressure 114/49 O2 Sat by Pulse 98 Oximetry Medical Decision Making - Medical Decision Making 72 year old female presenting to the emergency room via EMS with shortness of breath/difficulty breathing. She was recently hospitalized for Covid and was discharged home with a diagnosis of new onset A. fib and oxygen dependent hypoxemia post Covid. Will workup for Covid, pneumonia and sepsis. Will check chest x-ray, EKG, CBC, CMP, amylase, lipase, blood cultures, lactic acid, proBNP, magnesium and COVID swab. Will give nebulized breathing treatment at this time. Will hold other medications including antibiotics and diuretics pending blood work. Labs show elevated d-dimer likely secondary to COVID however in the setting of shortness of breath and A. fib history will check CTA. D-dimer elevated at 0.77 likely elevated secondary to post Covid. Spots however given shortness of breath and A. fib history will check CTA to rule out PE. Troponin elevated 0.154 no EKG changes from last hospitalization. Will order repeat troponin. Chest x-ray shows multi focal pneumonia and correlation for CHF. CMP BUN elevated at 30 however near baseline renal function status. ProBNP elevated 44,000. Hemoglobin low 7.6. Stool for occult blood completed. Digital rectal exam however negative results not likely accurate due to body habitus digital rectal exam difficult. Leukocytosis noted at 12.5. Oxygen well on current 2 L nasal cannula. CTA negative for pulmonary emboli. For consistent with a chest x- ray of multifocal pneumonia along with CHF. Lactic acid level normal. Blood cul tures pending. Case discussed with Dr. Patel patient's primary care provider regarding need for admission. Excepting of admission for CHF and pneumonia requesting consults to cardiology and pulmonology along with repeat stool for occult blood broad-spectrum antibiotics and diuresis. Will order accordingly. Case discussed with Dr. Crum. - Lab Data Result diagrams: 04/06/22 12:12 04/06/22 12:12 Lab Results 04/06/22 04/06/22 04/06/22 Range/Units 12:12 12:12 12:12 WBC 12.5 H (3.8-10.6) k/uL RBC 2.75 L (3.80-5.40) m/uL Hgb 7.6 L D (11.4-16.0) gm/dL Hct 24.7 L (34.0-46.0) % MCV 90.0 (80.0-100.0) fL MCH 27.5 (25.0-35.0) pg MCHC 30.5 L (31.0-37.0) g/dL RDW 18.3 H (11.5-15.5) % Plt Count 106 L (150-450) k/uL MPV 9.0 Neutrophils % (Manual) 90 % Lymphocytes % (Manual) 4 % Monocytes % (Manual) 6 % Neutrophils # (Manual) 11.25 H (1.3-7.7) k/uL Lymphocytes # (Manual) 0.50 L (1.0-4.8) k/uL Monocytes # (Manual) 0.75 (0-1.0) k/uL Nucleated RBCs 0 (0-0) /100 WBC Manual Slide Review Performed Hypochromasia Marked Poikilocytosis (manual Present Anisocytosis Slight PT 12.6 H (9.0-12.0) sec INR 1.2 H (<1.2) APTT 21.9 L (22.0-30.0) sec D-Dimer 0.77 H (<0.60) mg/L FEU Sodium 138 (137-145) mmol/L Potassium 4.7 (3.5-5.1) mmol/L Chloride 102 (98-107) mmol/L Carbon Dioxide 28 (22-30) mmol/L Anion Gap 8 mmol/L BUN 30 H (7-17) mg/dL Creatinine 1.07 H (0.52-1.04) mg/dL Est GFR (CKD-EPI)AfAm 60 (>60 ml/min/1.73 sqM) Est GFR (CKD-EPI)NonAf 52 (>60 ml/min/1.73 sqM) Glucose 75 (74-99) mg/dL Plasma Lactic Acid Garcia (0.7-2.0) mmol/L Calcium 8.8 (8.4-10.2) mg/dL Total Bilirubin 1.6 H (0.2-1.3) mg/dL AST 18 (14-36) U/L ALT 9 (4-34) U/L Alkaline Phosphatase 82 (38-126) U/L Troponin I (0.000-0.034) ng/mL NT-Pro-B Natriuret Pep pg/mL Total Protein 6.8 (6.3-8.2) g/dL Albumin 3.5 (3.5-5.0) g/dL Stool Occult Blood (Negative) Coronavirus (PCR) (Not Detectd) 04/06/22 04/06/22 04/06/22 Range/Units 12:12 12:12 12:12 WBC (3.8-10.6) k/uL RBC (3.80-5.40) m/uL Hgb (11.4-16.0) gm/dL Hct (34.0-46.0) % MCV (80.0-100.0) fL MCH (25.0-35.0) pg MCHC (31.0-37.0) g/dL RDW (11.5-15.5) % Plt Count (150-450) k/uL MPV Neutrophils % (Manual) % Lymphocytes % (Manual) % Monocytes % (Manual) % Neutrophils # (Manual) (1.3-7.7) k/uL Lymphocytes # (Manual) (1.0-4.8) k/uL Monocytes # (Manual) (0-1.0) k/uL Nucleated RBCs (0-0) /100 WBC Manual Slide Review Hypochromasia Poikilocytosis (manual Anisocytosis PT (9.0-12.0) sec INR (<1.2) APTT (22.0-30.0) sec D-Dimer (<0.60) mg/L FEU Sodium (137-145) mmol/L Potassium (3.5-5.1) mmol/L Chloride (98-107) mmol/L Carbon Dioxide (22-30) mmol/L Anion Gap mmol/L BUN (7-17) mg/dL Creatinine (0.52-1.04) mg/dL Est GFR (CKD-EPI)AfAm (>60 ml/min/1.73 sqM) Est GFR (CKD-EPI)NonAf (>60 ml/min/1.73 sqM) Glucose (74-99) mg/dL Plasma Lactic Acid Garcia 1.0 (0.7-2.0) mmol/L Calcium (8.4-10.2) mg/dL Total Bilirubin (0.2-1.3) mg/dL AST (14-36) U/L ALT (4-34) U/L Alkaline Phosphatase (38-126) U/L Troponin I 0.154 H* (0.000-0.034) ng/mL NT-Pro-B Natriuret Pep 4410 pg/mL Total Protein (6.3-8.2) g/dL Albumin (3.5-5.0) g/dL Stool Occult Blood (Negative) Coronavirus (PCR) (Not Detectd) 04/06/22 04/06/22 Range/Units 12:12 14:07 WBC (3.8-10.6) k/uL RBC (3.80-5.40) m/uL Hgb (11.4-16.0) gm/dL Hct (34.0-46.0) % MCV (80.0-100.0) fL MCH (25.0-35.0) pg MCHC (31.0-37.0) g/dL RDW (11.5-15.5) % Plt Count (150-450) k/uL MPV Neutrophils % (Manual) % Lymphocytes % (Manual) % Monocytes % (Manual) % Neutrophils # (Manual) (1.3-7.7) k/uL Lymphocytes # (Manual) (1.0-4.8) k/uL Monocytes # (Manual) (0-1.0) k/uL Nucleated RBCs (0-0) /100 WBC Manual Slide Review Hypochromasia Poikilocytosis (manual Anisocytosis PT (9.0-12.0) sec INR (<1.2) APTT (22.0-30.0) sec D-Dimer (<0.60) mg/L FEU Sodium (137-145) mmol/L Potassium (3.5-5.1) mmol/L Chloride (98-107) mmol/L Carbon Dioxide (22-30) mmol/L Anion Gap mmol/L BUN (7-17) mg/dL Creatinine (0.52-1.04) mg/dL Est GFR (CKD-EPI)AfAm (>60 ml/min/1.73 sqM) Est GFR (CKD-EPI)NonAf (>60 ml/min/1.73 sqM) Glucose (74-99) mg/dL Plasma Lactic Acid Garcia (0.7-2.0) mmol/L Calcium (8.4-10.2) mg/dL Total Bilirubin (0.2-1.3) mg/dL AST (14-36) U/L ALT (4-34) U/L Alkaline Phosphatase (38-126) U/L Troponin I (0.000-0.034) ng/mL NT-Pro-B Natriuret Pep pg/mL Total Protein (6.3-8.2) g/dL Albumin (3.5-5.0) g/dL Stool Occult Blood Negative (Negative) Coronavirus (PCR) Not Detected (Not Detectd) - EKG Data EKG Comments: EKG shows atrial fibrillation with rapid ventricular response, ventricular rate 105 bpm RI interval*ms, QRS duration 170 ms, QT/QTC 322/383 ms, PRT axes*, 250, 30 - Radiology Data Radiology results: report reviewed, image reviewed Chest x-ray two-view shows diffuse multifocal patchy airspace opacities which are increased from prior examination concerning for multifocal pneumonia. Small bilateral pleural effusions with pulmonary vascular congestion correlate for CHF exacerbation. Chest CT angiogram for PE impression no evidence of central pulmonary emboli. Limited evaluation of segmental and subsegmental branches. Small left and [id number] right pleural effusions with diffuse multifocal ground glass opacities which may represent pulmonary edema versus infectious process. Correlate with BMP is recommended for CHF exacerbation. Hepatic stasis. Small hiatal hernia. Cardiomegaly withsurgical changes from CABG. Disposition Clinical Impression: Congestive heart failure, Multifocal pneumonia Disposition: ADMITTED IP TO THIS HOSP Condition: Stable Is patient prescribed a controlled substance at d/c from ED?: No Referrals: Marcelino Cruz Jr, DO [Primary Care Provider] - 1-2 days Time of Disposition: 14:42
[2022-04-06 12:28] LABS: Anisocytosis Slight; HCT 24.7 % (34.0-46.0); Hypochromasia Marked; MCH 27.5 pg (25.0-35.0); MCHC 30.5 g/dL (31.0-37.0); Platelet Count 106 k/uL (150-450); RBC 2.75 m/uL (3.80-5.40); RDW 18.3 % (11.5-15.5); WBC 12.5 k/uL (3.8-10.6)
[2022-04-06 12:38] LABS: Albumin 3.5 g/dL (3.5-5.0); Calcium 8.8 mg/dL (8.4-10.2); Potassium 4.7 mmol/L (3.5-5.1); Total Bilirubin 1.6 mg/dL (0.2-1.3); Total Protein 6.8 g/dL (6.3-8.2)
[2022-04-06 12:49] LABS: INR 1.2 (<1.2); Partial Thromboplastin Time 21.9 sec (22.0-30.0); Prothrombin Time 12.6 sec (9.0-12.0)
[2022-04-06 12:55] LABS: HGB 7.6 gm/dL (11.4-16.0)
--- NOTE | 2022-04-06 12:57 | XR ---
EXAMINATION TYPE: XR chest 2V DATE OF EXAM: 04/06/2022 12:51 PM COMPARISON: Chest radiographs from 02/16/2022. TECHNIQUE: XR chest 2V Frontal and lateral views of the chest. CLINICAL INDICATION:Female, 72 years old with history of difficulty breathing; FINDINGS: Lungs/Pleura: Small bilateral pleural effusions with diffuse patchy multifocal airspace opacities. Th is is increased from prior examination. Pulmonary vascularity: Pulmonary vascular congestion. Heart/mediastinum: Cardiomediastinal silhouette is enlarged and stable. Musculoskeletal: No acute osseous pathology. Midline sternotomy wires are noted and stable. IMPRESSION: 1. Multifocal diffuse patchy airspace opacities have increased from prior examination concerning for multifocal pneumonia. 2. Small bilateral pleural effusions with pulmonary vascular congestion. Correlate for CHF exacerbati on.
[2022-04-06 13:31] LABS: Monocytes # (M) 0.75 k/uL (0-1.0); Neutrophils # (M) 11.25 k/uL (1.3-7.7); Neutrophils % (M) 90 %; Nucleated Red Blood Cells 0 /100 WBC (0-0); Total Cells Counted 100
[2022-04-06 13:32] LABS: Poikilocytosis (M) Present
--- NOTE | 2022-04-06 14:05 | CT ---
EXAMINATION TYPE: CT chest angio for PE CT DLP: 1023.3 mGycm, Automated exposure control for dose reduction was used. DATE OF EXAM: 04/06/2022 1:42 PM COMPARISON: . Chest radiograph from same day. CTA chest 02/12/2022. CLINICAL INDICATION:Female, 72 years old with history of Shortness of breath elevated d-dimer; SOB, E levated Ddimer TECHNIQUE/CONTRAST: CTA scan of the thorax is performed with IV Contrast, patient injected with 100 mL of Isovue 370, pul monary embolism protocol. MIP images are created and reviewed. FINDINGS: Pulmonary Artery: There is no evidence for a central filling defect within the pulmonary vasculature to suggest acute pulmonary embolism. Limited evaluation of the segmental and subsegmental branches se condary to bolus timing. The pulmonary artery is of normal size. Lungs/Pleura: Small left and [id number] right bilateral pleural effusions associated atelectas is. Multifocal patchy diffuse groundglass opacities. Airway: Large airways are patent. Heart: The heart is moderately enlarged for size. No pericardial effusion. Coronary arterial calcific ations and/or stents. Postsurgical changes from CABG. Vasculature: No evidence of aortic aneurysm. Mediastinum: No gross evidence of adenopathy. Musculoskeletal: No acute osseous abnormalities. Midline sternotomy wires. Multilevel degenerative ch zane of the visualized spine. Soft Tissues: Unremarkable. Lower neck: No significant findings. Upper Abdomen: Diffuse low-attenuation to the liver parenchyma. Small hiatal hernia. Gastric lap band identified. IMPRESSION: 1. No evidence of central pulmonary embolism. Limited evaluation of the segmental and subsegmental br anches. 2. Small left and [id number]-[id number] right pleural effusions with diffuse multifocal groundglass opaci ties which may represent pulmonary edema versus infectious process. Correlation with BNP is recommend ed for CHF exacerbation. 3. Hepatic steatosis. 4. Small hiatal hernia. 5. Cardiomegaly with postsurgical changes from CABG.
[2022-04-06] MEDS ORDERED: NALOXONE 0.4 MG/ML 1 ML VIAL IV PRN (14:18)
[2022-04-06] MEDS ORDERED: PNEUMONIA PROTOCOL UTILIZED 1 EACH MISC PO PRN (14:25)
[2022-04-06] MEDS ORDERED: LEVOFLOXACIN 750MG-D5W PMX 750 MG in DEXTROSE/WATER 1 150ML.BAG IVPB STA (14:25)
[2022-04-06] MEDS: FUROSEMIDE 10 MG/ML 4 ML VIAL IV SCH ×2 (14:43→21:07)
[2022-04-06] MEDS ORDERED: DEXTROSE 50% SYRINGE 50 ML IVP PRN ×2 (17:16)
[2022-04-06] MEDS ORDERED: LORazepam 0.5 MG TAB PO PRN (17:31)
[2022-04-06 18:17] LABS: Anisocytosis Slight; Basophils % (A) 0 %; Eosinophils % (A) 0 %; HCT 23.5 % (34.0-46.0); Hypochromasia Marked; Lymphocytes # (A) 0.4 k/uL (1.0-4.8); Lymphocytes % (A) 3 %; MCH 26.9 pg (25.0-35.0); MCHC 29.8 g/dL (31.0-37.0); MCV 90.4 fL (80.0-100.0); Mean Platelet Volume 8.1; Monocytes # (A) 0.4 k/uL (0-1.0); Monocytes % (A) 3 %; Neutrophils # (A) 15.1 k/uL (1.3-7.7); Neutrophils % (A) 94 %; RDW 18.5 % (11.5-15.5); WBC 16.1 k/uL (3.8-10.6)
--- NOTE | 2022-04-06 18:31 | US ---
EXAMINATION TYPE: US venous doppler duplex LE DATE OF EXAM: 04/06/2022 6:22 PM COMPARISON: NONE CLINICAL HISTORY: leg edema. morbidly obese patient with leg swelling for years, no h/o dvt SIDE PERFORMED: Bilateral TECHNIQUE: The lower extremity deep venous system is examined utilizing real time linear array sonog marin with graded compression, doppler sonography and color-flow sonography. VESSELS IMAGED: Common Femoral Vein Deep Femoral Vein Greater Saphenous Vein * Femoral Vein Popliteal Vein Small Saphenous Vein * Proximal Calf Veins (* superficial vessels) Patient having hard time breathing, large habitus and extremely sensitive legs, she could not manuel ate any compression images, left GSV stripped Right Leg: Negative for DVT - limited study showed normal color flow and doppler Left Leg: Negative for DVT - limited study showed normal color flow and doppler IMPRESSION: No evidence of deep vein thrombosis in both legs.
[2022-04-06 18:44] LABS: Platelet Count 183 k/uL (150-450)
[2022-04-06 18:47] LABS: Albumin 3.5 g/dL (3.5-5.0); Calcium 9.1 mg/dL (8.4-10.2); Potassium 4.9 mmol/L (3.5-5.1); Total Protein 6.8 g/dL (6.3-8.2)
[2022-04-06] MEDS: INSULIN ASPART (NovoLOG) 100 UNIT/ML VIAL SQ SCH ×2 (18:53→21:06)
[2022-04-06 21:01] LABS: Glucose,Whole Blood 198 mg/dL (70-110)
[2022-04-06] MEDS: APIXABAN 5 MG TAB PO SCH (21:07)
[2022-04-06] MEDS: OXYBUTYNIN CHLORIDE 5 MG TAB PO SCH (21:07)
[2022-04-06] MEDS: GABAPENTIN 300 MG CAP PO SCH (21:07)
[2022-04-06] MEDS: ATORVASTATIN 40 MG TAB PO SCH (21:07)
[2022-04-06] MEDS: SERTRALINE 100 MG TAB PO SCH (21:07)
[2022-04-06] MEDS ORDERED: FUROSEMIDE 10 MG/ML 2 ML VIAL IV ONE (22:00)
[2022-04-06 23:57] LABS: Glucose,Whole Blood 217 mg/dL (70-110)
--- NOTE | 2022-04-07 06:12 | XR ---
EXAMINATION TYPE: XR chest 1V DATE OF EXAM: 04/07/2022 CLINICAL HISTORY: Difficulty breathing and pneumonia progress study. TECHNIQUE: Single AP portable semiupright view of the chest is obtained. COMPARISON: Chest x-ray and CTA chest from one day earlier and older studies. FINDINGS: Bilateral multifocal increased opacities are redemonstrated. Overlying sternal wires and m ediastinal clips again seen. Stable mild cardiomegaly and small bilateral pleural effusions.. Osseous structures are intact. IMPRESSION: Cardiomegaly with bilateral multifocal opacities correlate for covid-19 infection. No sig nificant change from one day earlier.
[2022-04-07 06:59] LABS: Glucose,Whole Blood 223 mg/dL (70-110)
[2022-04-07] MEDS: INSULIN ASPART (NovoLOG) 100 UNIT/ML VIAL SQ SCH ×3 (07:13→21:24)
[2022-04-07] MEDS: LEVOTHYROXINE 50 MCG TAB PO SCH (07:13)
[2022-04-07] MEDS ORDERED: AMIODARONE 200 MG TAB PO SCH (09:00)
[2022-04-07] MEDS: METOPROLOL TARTRATE 50 MG TAB PO SCH (09:39)
[2022-04-07] MEDS: GABAPENTIN 300 MG CAP PO SCH ×2 (09:39→21:23)
[2022-04-07] MEDS: FUROSEMIDE 10 MG/ML 4 ML VIAL IV SCH ×2 (09:40→21:23)
[2022-04-07] MEDS: ISOSORBIDE MONONITRATE ER 30 MG TAB.ER.24H PO SCH (09:40)
[2022-04-07] MEDS: OXYBUTYNIN CHLORIDE 5 MG TAB PO SCH ×2 (10:58→21:23)
[2022-04-07] MEDS: SERTRALINE 100 MG TAB PO SCH ×2 (10:58→21:23)
[2022-04-07 11:13] LABS: Glucose,Whole Blood 186 mg/dL (70-110)
[2022-04-07 11:40] LABS: Anisocytosis Slight; Basophils % (A) 0 %; Eosinophils # (A) 0.1 k/uL (0-0.7); Eosinophils % (A) 1 %; HCT 20.8 % (34.0-46.0); Hypochromasia Marked; Lymphocytes # (A) 0.6 k/uL (1.0-4.8); Lymphocytes % (A) 5 %; MCH 27.7 pg (25.0-35.0); MCHC 30.6 g/dL (31.0-37.0); MCV 90.6 fL (80.0-100.0); Mean Platelet Volume 8.4; Monocytes # (A) 0.4 k/uL (0-1.0); Monocytes % (A) 4 %; Neutrophils # (A) 9.9 k/uL (1.3-7.7); Neutrophils % (A) 89 %; Platelet Count 152 k/uL (150-450); RBC 2.29 m/uL (3.80-5.40); WBC 11.1 k/uL (3.8-10.6)
[2022-04-07 11:54] LABS: HGB 6.4 gm/dL (11.4-16.0)
[2022-04-07] MEDS: APIXABAN 5 MG TAB PO SCH ×2 (11:55→21:15)
[2022-04-07 11:56] LABS: Albumin 2.8 g/dL (3.5-5.0); Calcium 8.3 mg/dL (8.4-10.2); Potassium 4.4 mmol/L (3.5-5.1); Total Protein 5.7 g/dL (6.3-8.2)
[2022-04-07] MEDS: ASPIRIN 81 MG PO SCH (11:56)
--- NOTE | 2022-04-07 12:05 | P.CNPUL ---
History of Present Illness Consult date: 04/07/22 Requesting physician: Marcelino Cruz Jr Reason for consult: dyspnea, abnormal CXR/CT Chief complaint: Shortness of breath History of present illness: This is a pleasant 72-year-old morbidly obese female patient with a known history of hypertension, depression/anxiety, hypothyroidism, chronic atrial fibrillation maintained on Eliquis, recent COVID-19 infection in January 2022 requiring home oxygen at 2 L/m per nasal cannula, diabetes mellitus, diabetic neuropathy, chronic lower extremity edema/cellulitis. She represented here yesterday with complaints of increasing shortness of breath has been resting over the past several days. EKG revealed atrial fibrillation with a right bundle-branch block. Chest x-ray reveals multifocal diffuse patchy airspace opacities increased from previous concerning for multifocal pneumonia/fluid volume overload. There is small bilateral pleural effusions with pulmonary vascular congestion. CT angiogram ruled out pulmonary embolism. Small left and small moderate right pleural effusions with diffuse multifocal groundglass opacities consistent with previous COVID-19 infection and possible pulmonary edema. Doppler of the bilateral lower extremities were negative for DVT. White count 11.1. Hemoglobin 6.4. Platelets 152. Sodium 137. Potassium 4.9. BUN 30. Creatinine 1.08. Glucose 139. Hemoglobin A1c 6.6. Troponin 0.099. ProBNP 6730. She was initiated on Lasix 40 mg IV every 12 hours. Anticoagulated with Eliquis. She did receive 1 unit of packed red blood cells. Follow-up hemoglobin pending. Review of Systems REVIEW OF SYSTEMS: CONSTITUTIONAL: Denies any recent significant weight loss or weight gain. EYES: Denies change in vision. EARS, NOSE, MOUTH, THROAT: Denies headaches, denies sore throat. CARDIOVASCULAR: Denies chest pain, palpitations or syncopal episodes. RESPIRATORY: Positive for shortness of breath, no cough, congestion or hemoptysis. GASTROINTESTINAL: Denies change in appetite, denies abdominal pain GENITOURINARY: Denies hematuria, denies infections. MUSKULOSKELETAL: Denies pain, denies swelling. INTEGUMENTARY: Denies rash, denies eczema. NEUROLOGICAL: Denies recent memory loss, no recent seizure activity. PSYCHIATRIC: Denies anxiety, denies depression. HEMATOLOGIC/LYMPHATIC: Denies anemia, denies enlarged lymph nodes. Past Medical History Past Medical History: Atrial Fibrillation, Coronary Artery Disease (CAD), Diabetes Mellitus, Eye Disorder, Hyperlipidemia, Hypertension, Osteoarthritis (OA), Pneumonia, Renal Disease, Sleep Apnea/CPAP/BIPAP, Thyroid Disorder Additional Past Medical History / Comment(s): Pt recently admitted to [facility] on 02/12/22 with covic pneumonia/sepsis, acute hypoxic respiratory failure/now on home oxygen ATC, new A fib with RVR. Other hx: IDDM type II, neuropathy bilateral feet, L eye retinal bleed/lasik eye surgery, R eye cataract, bilateral eye macular degeneration/gets injections/poor vision, CKD stage III, anemia, UTI/sepsis, bilateral leg lymphedema/currently has "rash" R lower leg/one spot on L lower leg, FLORES/does not have cpap machine at this time, diverticulitis, gout, chronic back pain, rheumatic fever, hypothyroid. History of Any Multi-Drug Resistant Organisms: None Reported Past Surgical History: Bariatric Surgery, Section, Cholecystectomy, Coronary Bypass/CABG, Heart Catheterization, Hysterectomy, Tonsillectomy Additional Past Surgical History / Comment(s): A 2 vessel CABG in 1996, bilateral carpal tunnel release, lap band, L eye laser surgery, Past Anesthesia/Blood Transfusion Reactions: No Reported Reaction Smoking Status: Never smoker - Past Family History Father Family Medical History: Cancer, Coronary Artery Disease (CAD), Diabetes Mellitus Additional Family Medical History / Comment(s): Prostate cancer Mother Family Medical History: Cancer Additional Family Medical History / Comment(s): Bone cancer. Medications and Allergies Home Medications Medication Instructions Recorded Confirmed Type Aspirin 81 mg PO DAILY 08/10/16 04/06/22 History Atorvastatin [Lipitor] 40 mg PO DAILY 08/10/16 04/06/22 History Insulin Detemir (Levemir) [Levemir] 60 unit SQ BID 08/10/16 04/06/22 History Isosorbide Mononitrate [Isosorbide 30 mg PO DAILY 08/10/16 04/06/22 History Mononitrate ER] Levothyroxine Sodium [Tirosint] 50 mcg PO DAILY 08/10/16 04/06/22 History Oxybutynin Chloride 5 mg PO BID 08/10/16 04/06/22 History Potassium Chloride [Klor-Con 10 ER] 20 meq PO DAILY 08/10/16 04/06/22 History Sertraline [Zoloft] 100 mg PO BID 08/10/16 04/06/22 History Furosemide [Lasix] 20 mg PO DAILY 11/16/21 04/06/22 History Gabapentin [Neurontin] 300 mg PO BID 11/16/21 04/06/22 History Apixaban [Eliquis] 5 mg PO BID #60 tab 02/16/22 04/06/22 Rx Amiodarone HCl [Pacerone] 200 mg PO DAILY 04/06/22 04/06/22 History INSULIN ASPART (NovoLOG) [NovoLOG 40 unit SQ BID PRN 04/06/22 04/06/22 History (formulary)] Metoprolol Tartrate [Lopressor] 50 mg PO DAILY 04/06/22 04/06/22 History Mupirocin 2% Oint [Bactroban 2% 1 applic TOPICAL BID 04/06/22 04/06/22 History Oint] Nystatin 100,000Unit/gm Cream 1 applic TOPICAL BID 04/06/22 04/06/22 History [Mycostatin Cream] Allergies Allergy/AdvReac Type Severity Reaction Status Date / Time ibuprofen [From Motrin] Allergy Rash/Hives Verified 04/06/22 15:26 Penicillins Allergy Anaphylaxis Verified 04/06/22 15:26 Physical Exam Vitals: Vital Signs Temp Pulse Pulse Resp BP BP Pulse Ox 04/07/22 08:29 97 04/07/22 08:00 97.4 F L 106 H 22 127/55 95 04/07/22 04:00 97.9 F 104 H 22 112/58 97 04/07/22 03:40 97.9 F 100 16 110/55 96 04/07/22 01:01 98.6 F 108 H 16 124/62 96 04/07/22 00:51 98.4 F 110 H 16 102/37 96 04/07/22 00:00 98.4 F 110 H 20 102/37 99 04/06/22 20:00 99.5 F 120 H 22 128/67 95 04/06/22 16:00 99.4 F 113 H 22 113/56 97 04/06/22 14:29 98.9 F 111 H 16 114/49 98 04/06/22 12:29 101 H 04/06/22 12:13 107 H Intake and Output 04/06/22 04/07/22 04/07/22 22:59 06:59 14:59 Intake Total 300 556 100 Output Total 900 600 900 Balance -841 -44 -664 Intake: Oral 100 Tube Feeding 300 Blood Product 556 Rc Pheresis As-3 Unit 283 [id number] Output: Urine 900 600 900 Other: Voiding Method External Catheter External Catheter External Catheter Weight 158.6 kg 158.6 kg GENERAL EXAM: Alert, pleasant morbidly obese 72-year-old female patient, on 3 L nasal cannula, comfortable in no apparent distress. HEAD: Normocephalic. EYES: Normal reaction of pupils, equal size. NOSE: Clear with pink turbinates. THROAT: No erythema or exudates. NECK: No masses, no JVD. CHEST: No chest wall deformity. LUNGS: Equal air entry with crackles in the posterior bases. CVS: S1 and S2 normal with no audible murmur, regular rhythm. ABDOMEN: No hepatosplenomegaly, normal bowel sounds, no guarding or rigidity. SPINE: No scoliosis or deformity SKIN: Cellulitis of the lower extremities CENTRAL NERVOUS SYSTEM: No focal deficits, tone is normal in all 4 extremities. EXTREMITIES: Changes of chronic venous stasis. There is 1-2+ peripheral edema. No clubbing, no cyanosis. Peripheral pulses are intact. Results - Laboratory Findings CBC and BMP: 04/06/22 17:41 04/06/22 17:41 PT/INR, D-dimer PT 12.6 sec (9.0-12.0) H 04/06/22 12:12 INR 1.2 (<1.2) H 04/06/22 12:12 D-Dimer 0.77 mg/L FEU (<0.60) H 04/06/22 12:12 Abnormal lab findings: Abnormal Labs 04/06/22 04/06/22 04/06/22 12:12 12:12 12:12 WBC 12.5 H RBC 2.75 L Hgb 7.6 L D Hct 24.7 L MCHC 30.5 L RDW 18.3 H Plt Count 106 L Neutrophils # Neutrophils # (Manual) 11.25 H Lymphocytes # Lymphocytes # (Manual) 0.50 L PT 12.6 H INR 1.2 H APTT 21.9 L D-Dimer 0.77 H BUN 30 H Creatinine 1.07 H Glucose POC Glucose (mg/dL) Hemoglobin A1c Total Bilirubin 1.6 H Troponin I Crossmatch 04/06/22 04/06/22 04/06/22 12:12 17:40 17:41 WBC RBC Hgb Hct MCHC RDW Plt Count Neutrophils # Neutrophils # (Manual) Lymphocytes # Lymphocytes # (Manual) PT INR APTT D-Dimer BUN Creatinine Glucose POC Glucose (mg/dL) Hemoglobin A1c 6.6 H Total Bilirubin Troponin I 0.154 H* 0.099 H* Crossmatch 04/06/22 04/06/22 04/06/22 17:41 17:41 20:11 WBC 16.1 H RBC 2.60 L Hgb 7.0 L Hct 23.5 L MCHC 29.8 L RDW 18.5 H Plt Count Neutrophils # 15.1 H Neutrophils # (Manual) Lymphocytes # 0.4 L Lymphocytes # (Manual) PT INR APTT D-Dimer BUN 30 H Creatinine 1.08 H Glucose 139 H POC Glucose (mg/dL) Hemoglobin A1c Total Bilirubin 2.0 H Troponin I Crossmatch See Detail 04/06/22 04/06/22 04/07/22 20:58 23:55 06:58 WBC RBC Hgb Hct MCHC RDW Plt Count Neutrophils # Neutrophils # (Manual) Lymphocytes # Lymphocytes # (Manual) PT INR APTT D-Dimer BUN Creatinine Glucose POC Glucose (mg/dL) 198 H 217 H 223 H Hemoglobin A1c Total Bilirubin Troponin I Crossmatch 04/07/22 11:12 WBC RBC Hgb Hct MCHC RDW Plt Count Neutrophils # Neutrophils # (Manual) Lymphocytes # Lymphocytes # (Manual) PT INR APTT D-Dimer BUN Creatinine Glucose POC Glucose (mg/dL) 186 H Hemoglobin A1c Total Bilirubin Troponin I Crossmatch - Diagnostic Findings Chest x-ray: image reviewed CT scan - chest: image reviewed Assessment and Plan Assessment: Acute on chronic hypoxic respiratory failure secondary to suspected pulmonary edema and/or chronic ongoing changes of COVID-19 infection, atrial fibrillation, anemia Acute anemia hemoglobin of 6.4, received 1 unit of packed red blood cells thus far Atrial fibrillation, anticoagulated with Eliquis, previously on amiodarone Recent COVID-19 infection with hypoxemia requiring home oxygen in January 2022. Not vaccinated Chronic venous stasis of the lower extremities with suspected cellulitis Morbid obesity with a BMI of 64 Obesity/hypoventilation syndrome Preserved left ventricular systolic function, suspect diastolic dysfunction. Diabetes mellitus Diabetic neuropathy Hyperlipidemia Hypertension Obstructive sleep apnea, not on CPAP Hypothyroidism Chronic kidney disease stage III Depression Nonsmoker Plan: The patient was seen and evaluated Chest x-ray, CAT scan, labs, medications reviewed Suspect ongoing residual changes of COVID-19 pneumonia Check a pro-calcitonin Suspect some form of congestive heart failure, diastolic Echocardiogram pending Continue diuretics Continue to monitor hemoglobin Titrate the FiO2 as tolerated Selective care unit overflow patient We will continue to follow and make further recommendations based on her clinical status I have personally seen and examined the patient, performed the documentation and the assessment and plan as written. Number of minutes spent on the visit: 20.
--- NOTE | 2022-04-07 12:34 | US ---
EXAMINATION TYPE: US arterial LE multi level DATE OF EXAM: 04/07/2022 10:42 AM CLINICAL HISTORY: lower edema. Swelling. ICU patient, 300lbs 5'2", unable to give accurate history. requests for swelling. Technically difficult Doppler Waveforms: Right: Monophasic Left: Monophasic Pressure Gradients: Ankle-Brachial Indices: Right: CNO Left: CNO Toe Brachial Indices: Right: unable to obtain due to motion Left: unable to obtain due to motion IMPRESSION: Nondiagnostic study.
[2022-04-07 19:15] LABS: Glucose,Whole Blood 159 mg/dL (70-110)
--- NOTE | 2022-04-07 20:15 | CONS ---
CONSULTATION CHIEF COMPLAINT: Fatigue, tiredness, and not feeling well. HISTORY OF PRESENT ILLNESS: Faith is a 72-year-old lady with history of coronary artery disease, status post CABG, who was admitted to hospital in January with COVID infection, was in the hospital for about 5 days, developed atrial fibrillation and was started on an anticoagulant and was discharged home. Gradually, over the last several days, she has been feeling fatigued, tired, and felt unable to do the chores that she normally done. She thought her COVID has recurred and she came to the hospital, where she was found to be in atrial fibrillation with poorly controlled ventricular rate, had mild troponin elevation, and her BNP was elevated at 4410. An EKG showed atrial fibrillation with right bundle- branch block and had an elevated D-dimer, went on to have a CT scan of the chest that was negative for pulmonary embolism. There was pleural effusion with diffuse ground- glass opacities throughout that could be related to recent COVID infection. She also has mild bilateral leg edema. She is admitted with a diagnosis of congestive heart failure and is being treated with intravenous diuretics. She is on amiodarone, which I am going to stop at this stage given the underlying lung disease and the fact that patient is still in atrial fibrillation. We can control her heart rate with a beta josh. Elevated troponin is not consistent with a diagnosis of acute myocardial infarction, could be related to the underlying respiratory illness. PAST MEDICAL HISTORY: Significant for coronary artery disease, status post CABG; persistent atrial fibrillation; hypertension; hypothyroidism. MEDICATIONS AT HOME: Included: 1. Lopressor 50 mg. 2. K-Dur. 3. Imdur. 4. Lasix 20 mg daily. 5. Insulin. 6. Lipitor. 7. Aspirin. 8. Eliquis. 9. Pacerone. ALLERGIES: Penicillin and ibuprofen. FAMILY HISTORY: Negative for premature coronary artery disease. SOCIAL HISTORY: Negative for current smoking, EtOH abuse, or drug abuse. REVIEW OF SYSTEMS: HEENT: Unremarkable. CARDIAC: As described above. RESPIRATORY: As described above. GI: Negative. GENITOURINARY: Negative. ALLERGY/IMMUNOLOGY: Negative. SKIN: Negative. MUSCULOSKELETAL: Significant for arthritis. PSYCHOSOCIAL: Negative. DERM: Negative. CONSTITUTIONAL: As described above. Rest of the system review is not relevant. PHYSICAL EXAMINATION: VITAL SIGNS: Afebrile, heart rate is around 100 beats per minute, blood pressure is 112/58, respiratory rate is 18, O2 saturation is 97% on 3 L. NECK: There is no jugular venous distention. Carotid upstroke is diminished. There is no bruit. CHEST: Reveals diminished air entry bilaterally with occasional rhonchi. HEART: Reveals first and second heart sounds. Irregular rhythm and a systolic murmur at the left lower sternal border. ABDOMEN: Soft and nontender. EXTREMITIES: Reveals bilateral 1+ edema. LABORATORY DATA: Labs show potassium of 4.9, creatinine is 1. Troponin is 0.09. AST, ALT are within normal limits. LDL cholesterol is 44. TSH is normal. ASSESSMENT: 1. Persistent atrial fibrillation with poorly controlled ventricular rate. 2. Shortness of breath due to a combination of possible COVID pneumonia and acute onset diastolic heart failure. 3. Elevated troponin, not related to acute myocardial ischemia. 4. Coronary artery disease, status post coronary artery bypass grafting. PLAN: We will obtain a 2D echo to document her LV function and wall motion. Treat the patient with intravenous diuretics. Continue the aspirin; Eliquis; metoprolol, increase the dose to 50 mg b.i.d.; and hold amiodarone at this time. We will decide on further course of action based on how her symptoms evolve. MMODL / IJN: [id number] /
[2022-04-07 21:21] LABS: Glucose,Whole Blood 160 mg/dL (70-110)
[2022-04-07 21:22] LABS: Anisocytosis Slight; Basophils % (A) 0 %; Eosinophils # (A) 0.1 k/uL (0-0.7); Eosinophils % (A) 1 %; HCT 22.2 % (34.0-46.0); Hypochromasia Marked; Lymphocytes # (A) 0.5 k/uL (1.0-4.8); Lymphocytes % (A) 5 %; MCH 28.5 pg (25.0-35.0); MCHC 31.1 g/dL (31.0-37.0); MCV 91.6 fL (80.0-100.0); Mean Platelet Volume 8.3; Monocytes # (A) 0.3 k/uL (0-1.0); Monocytes % (A) 4 %; Neutrophils # (A) 7.9 k/uL (1.3-7.7); Neutrophils % (A) 89 %; Platelet Count 155 k/uL (150-450); RBC 2.43 m/uL (3.80-5.40)
[2022-04-07 21:23] LABS: HGB 6.9 gm/dL (11.4-16.0)
[2022-04-07] MEDS: ATORVASTATIN 40 MG TAB PO SCH (21:23)
[2022-04-07] MEDS: POTASSIUM CHLORIDE ER 20 MEQ TAB.ER PO SCH (22:51)
[2022-04-08] MEDS: LEVOTHYROXINE 50 MCG TAB PO SCH (06:31)
[2022-04-08 06:54] LABS: Glucose,Whole Blood 148 mg/dL (70-110)
[2022-04-08] MEDS: INSULIN ASPART (NovoLOG) 100 UNIT/ML VIAL SQ SCH ×4 (06:56→22:50)
[2022-04-08 07:58] LABS: Anisocytosis Slight; Basophils % (A) 0 %; Eosinophils # (A) 0.1 k/uL (0-0.7); Eosinophils % (A) 1 %; HCT 23.5 % (34.0-46.0); HGB 7.2 gm/dL (11.4-16.0); Hypochromasia Marked; Lymphocytes # (A) 0.5 k/uL (1.0-4.8); Lymphocytes % (A) 5 %; MCHC 30.6 g/dL (31.0-37.0); MCV 91.5 fL (80.0-100.0); Mean Platelet Volume 8.5; Monocytes # (A) 0.4 k/uL (0-1.0); Monocytes % (A) 4 %; Neutrophils # (A) 7.4 k/uL (1.3-7.7); Neutrophils % (A) 88 %; Platelet Count 162 k/uL (150-450); RBC 2.57 m/uL (3.80-5.40); RDW 17.8 % (11.5-15.5); WBC 8.5 k/uL (3.8-10.6)
[2022-04-08 08:23] LABS: Calcium 8.6 mg/dL (8.4-10.2); Magnesium 1.7 mg/dL (1.6-2.3); Potassium 4.4 mmol/L (3.5-5.1)
[2022-04-08] MEDS ORDERED: Magnesium Replacement Protocol 1 EACH MISC MISCELLANE PRN (08:36)
[2022-04-08] MEDS: FUROSEMIDE 10 MG/ML 4 ML VIAL IV SCH ×2 (08:41→22:21)
[2022-04-08] MEDS: ASPIRIN 81 MG PO SCH (08:41)
[2022-04-08] MEDS: APIXABAN 5 MG TAB PO SCH ×2 (08:41→22:20)
[2022-04-08] MEDS: SERTRALINE 100 MG TAB PO SCH ×2 (08:41→22:51)
[2022-04-08] MEDS: METOPROLOL TARTRATE 50 MG TAB PO SCH ×2 (08:41→22:23)
[2022-04-08] MEDS: OXYBUTYNIN CHLORIDE 5 MG TAB PO SCH ×2 (08:41→22:51)
[2022-04-08] MEDS: ISOSORBIDE MONONITRATE ER 30 MG TAB.ER.24H PO SCH (08:41)
[2022-04-08] MEDS: MAGNESIUM SULFATE-D5W PMX 1 GM in DEXTROSE/WATER 1 100ML.BAG IVPB SCH ×2 (08:41→09:47)
[2022-04-08] MEDS: POTASSIUM CHLORIDE ER 20 MEQ TAB.ER PO SCH (08:42)
[2022-04-08] MEDS: GABAPENTIN 300 MG CAP PO SCH ×2 (08:42→22:20)
--- NOTE | 2022-04-08 10:00 | CA ---
Transthoracic Echo Report Name: Faith Tapia Age: 72 Gender: F : 1950 Exam Date: 04/07/2022 11:16 Exam Location: [facility] Ht (in): 62 Wt (lb): 349 Ordering Physician: Jackson Monteiro MD ([id number]) Attending/Referring Phys: Thania VELARDE Crabber Maria Elena Aguilar RDCS Procedure CPT: Indications: chf Cardiac Hx: Technical Quality: Fair Contrast 1: Lumason Total Dose (mL): 3 Contrast 2: Total Dose (mL): MEASUREMENTS (Male / Female) Normal Values 2D ECHO LV Diastolic Diameter PLAX 4.4 cm 4.2 - 5.9 / 3.9 - 5.3 cm LV Systolic Diameter PLAX 3.0 cm IVS Diastolic Thickness 1.5 cm 0.6 - 1.0 / 0.6 - 0.9 cm LVPW Diastolic Thickness 1.5 cm 0.6 - 1.0 / 0.6 - 0.9 cm LV Relative Wall Thickness 0.7 RV Internal Dim ED PLAX 3.7 cm LVOT Diameter 1.9 cm LA Systolic Diameter LX 3.5 cm 3.0 - 4.0 / 2.7 - 3.8 cm LA Volume 83.9 cm??? 18 - 58 / 22 - 52 cm??? M-MODE Aortic Root Diameter MM 3.4 cm MV E Point Septal Separation 0.6 cm AV Cusp Separation MM 1.7 cm DOPPLER AV Peak Velocity 249.0 cm/s AV Peak Gradient 24.8 mmHg AV Mean Velocity 169.7 cm/s AV Mean Gradient 13.5 mmHg AV Velocity Time Integral 55.0 cm AI Peak Velocity 272.2 cm/s AI Peak Gradient 29.6 mmHg AI Pressure Half Time 481.2 ms LVOT Peak Velocity 161.0 cm/s LVOT Peak Gradient 10.4 mmHg AV Area Cont Eq pk 1.8 cm??? MV Peak Velocity 194.5 cm/s MV Peak Gradient 15.1 mmHg MV Mean Velocity 92.2 cm/s MV Mean Gradient 4.2 mmHg MV Velocity Time Integral 39.6 cm MV Area PHT 3.5 cm??? MV Deceleration Time 277.0 ms TR Peak Velocity 341.5 cm/s TR Peak Gradient 46.6 mmHg Right Ventricular Systolic Press 61.2 mmHg FINDINGS Left Ventricle Left ventricular ejection fraction is estimated at 45-50%.. Left ventricular cavity size normal. Moderate concentric left ventricular hypertrophy. Right Ventricle Mild right ventricular dilatation. Severe pulmonary hypertension. Right Atrium Normal right atrial size. Left Atrium Severely increased left atrial volume. Mildly increased left atrial area. No evidence for an atrial septal defect. Mitral Valve Mitral annular calcification. Mild mitral regurgitation. Mild gradient on MV Aortic Valve Focal thickening of the aortic valve cusps. Mild aortic regurgitation. Mild aortic stenosis with a peak gradient of 25 mmHg and a mean gradient of 14 mmHg. Tricuspid Valve Severe tricuspid regurgitation. Pulmonic Valve Mild pulmonic regurgitation. Pericardium Normal pericardium. No pericardial effusion. Aorta Normal size aortic root and proximal ascending aorta. CONCLUSIONS LV systolic function is at the lower end of normal of about 50%. There is concentric LVH of a moderate degree. There is mitral valve calcification. Aortic valve sclerosis with increased gradient and mild stenosis. No pericardial effusion. Moderate pulmonary hypertension Previewed by: Dr. Bryant Weller MD (Electronically Signed) Final Date: 08 April 2022 09:59
--- NOTE | 2022-04-08 11:08 | P.CONS ---
History of Present Illness - Reason for Consult Consult date: 04/08/22 wound care - History of Present Illness This is a 72-year-old patient being seen in ICU for open ulcerations to bilateral lower extremities and cellulitis. Patient states that the ulcerations have started approximately 2-3 weeks ago. She was given Silvadene however she was hospitalized before she could utilize it. Patient has a weeping edema noted to bilateral lower extremities with redness and multiple small ulcerations that are Limited to skin breakdown. Patient spent a majority of her time sitting in chair with her legs dependent. Patient's past medical history significant for atrial fibrillation, coronary artery disease, diabetes, hyperlipidemia, hypertension, pneumonia, renal disease, hyperthyroidism, venous insufficiency. Review Of Systems: Constitutional: No fever, no chills, no night sweats. No weight change. No weakness, fatigue or lethargy. No daytime sleepiness. Integumentary:reports wounds, no lesions. No rash or pruritus. No unusual bruising. No change in hair or nails. Physical exam: General Appearance: Alert, cooperative, no distress, appears stated age. Skin: See HPI all other Skin color, texture, tugor normal, no rashes or lesions. Neurologic: Alert oriented x3 Assessment: 1. Chronic venous hypertension bilateral lower extremities with inflammation and ulceration 2. Nonpressure ulceration to right lower extremity multiple sites Limited to skin breakdown 3. Diabetes a skin ulcer Plan: 1. Apply triad and Jam wrap. Patient to elevate legs 30 minutes 3 times a day. Thank you for the consultation any questions contact the wound care center DNP note has been reviewed and discussed with Dr. Liu and the impression and plan of care has been directed as dictated. Past Medical History Past Medical History: Atrial Fibrillation, Coronary Artery Disease (CAD), Diabetes Mellitus, Eye Disorder, Hyperlipidemia, Hypertension, Osteoarthritis (OA), Pneumonia, Renal Disease, Sleep Apnea/CPAP/BIPAP, Thyroid Disorder Additional Past Medical History / Comment(s): Pt recently admitted to [facility] on 02/12/22 with covic pneumonia/sepsis, acute hypoxic respiratory failure/now on home oxygen ATC, new A fib with RVR. Other hx: IDDM type II, neuropathy bilateral feet, L eye retinal bleed/lasik eye surgery, R eye cataract, bilateral eye macular degeneration/gets injections/poor vision, CKD stage III, anemia, UTI/sepsis, bilateral leg lymphedema/currently has "rash" R lower leg/one spot on L lower leg, FLORES/does not have cpap machine at this time, diverticulitis, gout, chronic back pain, rheumatic fever, hypothyroid. History of Any Multi-Drug Resistant Organisms: None Reported Past Surgical History: Bariatric Surgery, Section, Cholecystectomy, Coronary Bypass/CABG, Heart Catheterization, Hysterectomy, Tonsillectomy Additional Past Surgical History / Comment(s): A 2 vessel CABG in 1996, bilateral carpal tunnel release, lap band, L eye laser surgery, Past Anesthesia/Blood Transfusion Reactions: No Reported Reaction Smoking Status: Never smoker - Past Family History Father Family Medical History: Cancer, Coronary Artery Disease (CAD), Diabetes Mellitus Additional Family Medical History / Comment(s): Prostate cancer Mother Family Medical History: Cancer Additional Family Medical History / Comment(s): Bone cancer. Medications and Allergies Home Medications Medication Instructions Recorded Confirmed Type Aspirin 81 mg PO DAILY 08/10/16 04/06/22 History Atorvastatin [Lipitor] 40 mg PO DAILY 08/10/16 04/06/22 History Insulin Detemir (Levemir) [Levemir] 60 unit SQ BID 08/10/16 04/06/22 History Isosorbide Mononitrate [Isosorbide 30 mg PO DAILY 08/10/16 04/06/22 History Mononitrate ER] Levothyroxine Sodium [Tirosint] 50 mcg PO DAILY 08/10/16 04/06/22 History Oxybutynin Chloride 5 mg PO BID 08/10/16 04/06/22 History Potassium Chloride [Klor-Con 10 ER] 20 meq PO DAILY 08/10/16 04/06/22 History Sertraline [Zoloft] 100 mg PO BID 08/10/16 04/06/22 History Furosemide [Lasix] 20 mg PO DAILY 11/16/21 04/06/22 History Gabapentin [Neurontin] 300 mg PO BID 11/16/21 04/06/22 History Apixaban [Eliquis] 5 mg PO BID #60 tab 02/16/22 04/06/22 Rx Amiodarone HCl [Pacerone] 200 mg PO DAILY 04/06/22 04/06/22 History INSULIN ASPART (NovoLOG) [NovoLOG 40 unit SQ BID PRN 04/06/22 04/06/22 History (formulary)] Metoprolol Tartrate [Lopressor] 50 mg PO DAILY 04/06/22 04/06/22 History Mupirocin 2% Oint [Bactroban 2% 1 applic TOPICAL BID 04/06/22 04/06/22 History Oint] Nystatin 100,000Unit/gm Cream 1 applic TOPICAL BID 04/06/22 04/06/22 History [Mycostatin Cream] Allergies Allergy/AdvReac Type Severity Reaction Status Date / Time ibuprofen [From Motrin] Allergy Rash/Hives Verified 04/06/22 15:26 Penicillins Allergy Anaphylaxis Verified 04/06/22 15:26 Physical Exam Vitals: Vital Signs Temp Pulse Resp BP Pulse Ox 04/08/22 09:00 103 H 22 115/37 96 04/08/22 08:11 96 04/08/22 08:00 98.1 F 92 22 118/56 93 L 04/08/22 06:00 86 18 103/52 95 04/08/22 04:00 98 F 92 14 112/49 95 04/08/22 02:00 86 17 108/50 97 04/08/22 00:00 98.0 F 90 19 107/51 97 04/07/22 23:00 95 19 112/57 96 04/07/22 22:00 89 22 108/54 97 04/07/22 21:00 80 20 114/55 97 04/07/22 20:00 98.1 F 86 19 129/67 96 Intake and Output 04/07/22 04/08/22 04/08/22 22:59 06:59 14:59 Intake Total 830 300 Output Total 350 1600 400 Balance 480 -1600 -100 Intake: Intake, IV Titration 200 Amount Magnesium Sulfate-D5w Pmx 200 1 gm In Dextrose/Water 1 100ml.bag @ 100 mls/hr IVPB Q1H [facility] Rx#: [id number] Oral 500 100 Blood Product 280 Rc Pheresis As-3 Unit 280 [id number] Other 50 Rc Pheresis As-3 Unit 50 [id number] Output: Urine 350 1600 400 Other: Voiding Method External Catheter External Catheter External Catheter Weight 156.7 kg Results CBC & Chem 7: 04/08/22 07:05 04/08/22 07:05 Labs: Abnormal Lab Results - Last 24 Hours (Table) 09/12/2104/07/22 04/07/22 Range/Units 20:11 11:12 11:12 WBC 11.1 H (3.8-10.6) k/uL RBC 2.29 L (3.80-5.40) m/uL Hgb 6.4 L* (11.4-16.0) gm/dL Hct 20.8 L (34.0-46.0) % MCHC 30.6 L (31.0-37.0) g/dL RDW 18.0 H (11.5-15.5) % Neutrophils # 9.9 H (1.3-7.7) k/uL Lymphocytes # 0.6 L (1.0-4.8) k/uL Sodium 136 L (137-145) mmol/L Chloride 97 L (98-107) mmol/L Carbon Dioxide (22-30) mmol/L BUN 30 H (7-17) mg/dL Creatinine 1.16 H (0.52-1.04) mg/dL Glucose 162 H (74-99) mg/dL POC Glucose (mg/dL) (70-110) mg/dL Calcium 8.3 L (8.4-10.2) mg/dL Total Bilirubin 2.0 H (0.2-1.3) mg/dL Total Protein 5.7 L (6.3-8.2) g/dL Albumin 2.8 L (3.5-5.0) g/dL Procalcitonin (0.02-0.09) ng/mL Crossmatch See Detail 04/07/22 04/07/22 04/07/22 Range/Units 11:12 11:12 16:24 WBC (3.8-10.6) k/uL RBC (3.80-5.40) m/uL Hgb (11.4-16.0) gm/dL Hct (34.0-46.0) % MCHC (31.0-37.0) g/dL RDW (11.5-15.5) % Neutrophils # (1.3-7.7) k/uL Lymphocytes # (1.0-4.8) k/uL Sodium (137-145) mmol/L Chloride (98-107) mmol/L Carbon Dioxide (22-30) mmol/L BUN (7-17) mg/dL Creatinine (0.52-1.04) mg/dL Glucose (74-99) mg/dL POC Glucose (mg/dL) 186 H 159 H (70-110) mg/dL Calcium (8.4-10.2) mg/dL Total Bilirubin (0.2-1.3) mg/dL Total Protein (6.3-8.2) g/dL Albumin (3.5-5.0) g/dL Procalcitonin 0.20 H (0.02-0.09) ng/mL Crossmatch 04/07/22 04/07/22 04/08/22 Range/Units 19:00 21:20 06:53 WBC (3.8-10.6) k/uL RBC 2.43 L (3.80-5.40) m/uL Hgb 6.9 L* (11.4-16.0) gm/dL Hct 22.2 L (34.0-46.0) % MCHC (31.0-37.0) g/dL RDW 18.0 H (11.5-15.5) % Neutrophils # 7.9 H (1.3-7.7) k/uL Lymphocytes # 0.5 L (1.0-4.8) k/uL Sodium (137-145) mmol/L Chloride (98-107) mmol/L Carbon Dioxide (22-30) mmol/L BUN (7-17) mg/dL Creatinine (0.52-1.04) mg/dL Glucose (74-99) mg/dL POC Glucose (mg/dL) 160 H 148 H (70-110) mg/dL Calcium (8.4-10.2) mg/dL Total Bilirubin (0.2-1.3) mg/dL Total Protein (6.3-8.2) g/dL Albumin (3.5-5.0) g/dL Procalcitonin (0.02-0.09) ng/mL Crossmatch 04/08/22 04/08/22 Range/Units 07:05 07:05 WBC (3.8-10.6) k/uL RBC 2.57 L (3.80-5.40) m/uL Hgb 7.2 L (11.4-16.0) gm/dL Hct 23.5 L (34.0-46.0) % MCHC 30.6 L (31.0-37.0) g/dL RDW 17.8 H (11.5-15.5) % Neutrophils # (1.3-7.7) k/uL Lymphocytes # 0.5 L (1.0-4.8) k/uL Sodium (137-145) mmol/L Chloride 97 L (98-107) mmol/L Carbon Dioxide 33 H (22-30) mmol/L BUN 31 H (7-17) mg/dL Creatinine 1.13 H (0.52-1.04) mg/dL Glucose 128 H (74-99) mg/dL POC Glucose (mg/dL) (70-110) mg/dL Calcium (8.4-10.2) mg/dL Total Bilirubin (0.2-1.3) mg/dL Total Protein (6.3-8.2) g/dL Albumin (3.5-5.0) g/dL Procalcitonin (0.02-0.09) ng/mL Crossmatch Microbiology - Last 24 Hours (Table) 04/07/22 01:30 Gram Stain - Preliminary Leg - Right Wound Culture - Preliminary Presumptive Staph aureus 04/06/22 14:00 Blood Culture - Preliminary Blood No Growth after 24 hours 04/06/22 14:15 Blood Culture - Preliminary Blood No Growth after 24 hours 04/07/22 01:30 Anaerobic Culture - Preliminary Leg - Right Assessment and Plan (1) Chronic venous hypertension (idiopathic) with ulcer and inflammation of bilateral lower extremity Current Visit: Yes Status: Acute Code(s): I87.333 - CHRONIC VENOUS HTN W ULCER AND INFLAM OF BILATERAL LOW EXTRM; L97.919 - NON-PRS CHRONIC ULC UNSP PRT OF R LOW LEG W UNSP SEVERITY; L97.929 - NON-PRS CHRONIC ULC UNSP PRT OF L LOW LEG W UNSP SEVERITY SNOMED Code(s): 142116820871347 (2) Non-pressure chronic ulcer of right calf limited to breakdown of skin Current Visit: Yes Status: Acute Code(s): L97.211 - NON-PRS CHRONIC ULCER OF RIGHT CALF LIMITED TO BRKDWN SKIN SNOMED Code(s): 64315329901836017 (3) Type 2 diabetes mellitus with other skin ulcer Current Visit: Yes Status: Acute Code(s): E11.622 - TYPE 2 DIABETES MELLITUS WITH OTHER SKIN ULCER; L98.499 - NON-PRESSURE CHRONIC ULCER OF SKIN OF SITES W UNSP SEVERITY SNOMED Code(s): 878963582
[2022-04-08 11:23] LABS: Glucose,Whole Blood 176 mg/dL (70-110)
--- NOTE | 2022-04-08 11:53 | P.PN ---
Subjective Progress Note Date: 04/08/22 Principal diagnosis: Acute on chronic hypoxic respiratory failure, secondary to pulmonary edema and recent history of COVID-19 infection with underlying pulmonary fibrosis from pre vious COVID-19 infection. This is a pleasant 72-year-old morbidly obese female patient with a known history of hypertension, depression/anxiety, hypothyroidism, chronic atrial fibrillation maintained on Eliquis, recent COVID-19 infection in January 2022 requiring home oxygen at 2 L/m per nasal cannula, diabetes mellitus, diabetic neuropathy, chronic lower extremity edema/cellulitis. She represented here yesterday with complaints of increasing shortness of breath has been resting over the past several days. EKG revealed atrial fibrillation with a right bundle-branch block. Chest x-ray reveals multifocal diffuse patchy airspace opacities increased from previous concerning for multifocal pneumonia/fluid volume overload. There is small bilateral pleural effusions with pulmonary vascular congestion. CT angiogram ruled out pulmonary embolism. Small left and small moderate right pleural effusions with diffuse multifocal groundglass opacities consistent with previous COVID-19 infection and possible pulmonary edema. Doppler of the bilateral lower extremities were negative for DVT. White count 11.1. Hemoglobin 6.4. Platelets 152. Sodium 137. Potassium 4.9. BUN 30. Creatinine 1.08. Glucose 139. Hemoglobin A1c 6.6. Troponin 0.099. ProBNP 6730. She was initiated on Lasix 40 mg IV every 12 hours. Anticoagulated with Eliquis. She did receive 1 unit of packed red blood cells. Follow-up hemoglobin pending. Reevaluated today on 04/08/22, patient remains in the ICU, feeling better today, she is down to 3 L nasal cannula. Patient is dropping her hemoglobin however she had negative Hemoccult stool on admission. She did receive 2 units of packed RBCs since admission, and her hemoglobin today is 7.2. Her eliquis was on hold but restarted today. Patient is feeling better clinically, less short of breath, and on physical examinations he seems to have less crackles at the bases bilaterally. WBC count is 8.5 hemoglobin is 7.2 electrolytes are normal renal profile is normal creatinine 1.13. Echocardiogram showed no evidence of LV dysfunction, there was concentric LVH and mitral valve calcification with aortic valve sclerosis no pericardial effusion there is evidence of moderate pulmonary hypertension. Objective - Vital Signs Vital signs: Vital Signs Temp 98.1 F 04/08/22 08:00 Pulse 103 H 04/08/22 09:00 Resp 22 04/08/22 09:00 BP 115/37 04/08/22 09:00 Pulse Ox 96 04/08/22 09:00 FiO2 Intake & Output 04/07/22 04/08/22 04/08/22 18:59 06:59 18:59 Intake Total 430 500 300 Output Total 900 1950 400 Balance -470 -1120 -100 Weight 158.6 kg 156.7 kg Intake: Intake, IV Titration 200 Amount Magnesium Sulfate-D5w Pmx 200 1 gm In Dextrose/Water 1 100ml.bag @ 100 mls/hr IVPB Q1H [facility] Rx#: [id number] Oral 100 500 100 Blood Product 280 Rc Pheresis As-3 Unit 280 [id number] Other 50 Rc Pheresis As-3 Unit 50 [id number] Output: Urine 900 1950 400 Other: Voiding Method External Catheter External Catheter External Catheter - Exam GENERAL EXAM: Revealed a 72-year-old female obese, on 3 L nasal cannula, not in distress. HEAD: Atraumatic, Normocephalic. EYES: PERRLA, EOMI, anicteric. NOSE: Clear with pink turbinates. THROAT: No erythema or exudates. NECK: No masses, no JVD. CHEST: No chest wall deformity. LUNGS: Minimal crackles at the bases no rhonchi and no wheezes CVS: Distant S1 and S2, no S3 gallop. 2/6 systolic murmur thought the precordium. ABDOMEN: Obese soft nontender no megaly no rebound. SKIN: Cellulitis of the lower extremities CENTRAL NERVOUS SYSTEM: Alert and oriented 3 and no gross focal deficits. EXTREMITIES: Changes of chronic venous stasis. There is 1-2+ peripheral edema. No clubbing, no cyanosis. Peripheral pulses are intact. - Labs CBC & Chem 7: 04/08/22 07:05 04/08/22 07:05 Labs: Abnormal Lab Results - Last 24 Hours (Table) 04/06/22 04/07/22 04/07/22 Range/Units 20:11 11:12 11:12 WBC 11.1 H (3.8-10.6) k/uL RBC 2.29 L (3.80-5.40) m/uL Hgb 6.4 L* (11.4-16.0) gm/dL Hct 20.8 L (34.0-46.0) % MCHC 30.6 L (31.0-37.0) g/dL RDW 18.0 H (11.5-15.5) % Neutrophils # 9.9 H (1.3-7.7) k/uL Lymphocytes # 0.6 L (1.0-4.8) k/uL Sodium 136 L (137-145) mmol/L Chloride 97 L (98-107) mmol/L Carbon Dioxide (22-30) mmol/L BUN 30 H (7-17) mg/dL Creatinine 1.16 H (0.52-1.04) mg/dL Glucose 162 H (74-99) mg/dL POC Glucose (mg/dL) (70-110) mg/dL Calcium 8.3 L (8.4-10.2) mg/dL Total Bilirubin 2.0 H (0.2-1.3) mg/dL Total Protein 5.7 L (6.3-8.2) g/dL Albumin 2.8 L (3.5-5.0) g/dL Procalcitonin (0.02-0.09) ng/mL Crossmatch See Detail 04/07/22 04/07/22 04/07/22 Range/Units 11:12 16:24 19:00 WBC (3.8-10.6) k/uL RBC 2.43 L (3.80-5.40) m/uL Hgb 6.9 L* (11.4-16.0) gm/dL Hct 22.2 L (34.0-46.0) % MCHC (31.0-37.0) g/dL RDW 18.0 H (11.5-15.5) % Neutrophils # 7.9 H (1.3-7.7) k/uL Lymphocytes # 0.5 L (1.0-4.8) k/uL Sodium (137-145) mmol/L Chloride (98-107) mmol/L Carbon Dioxide (22-30) mmol/L BUN (7-17) mg/dL Creatinine (0.52-1.04) mg/dL Glucose (74-99) mg/dL POC Glucose (mg/dL) 159 H (70-110) mg/dL Calcium (8.4-10.2) mg/dL Total Bilirubin (0.2-1.3) mg/dL Total Protein (6.3-8.2) g/dL Albumin (3.5-5.0) g/dL Procalcitonin 0.20 H (0.02-0.09) ng/mL Crossmatch 04/07/22 04/08/22 04/08/22 Range/Units 21:20 06:53 07:05 WBC (3.8-10.6) k/uL RBC 2.57 L (3.80-5.40) m/uL Hgb 7.2 L (11.4-16.0) gm/dL Hct 23.5 L (34.0-46.0) % MCHC 30.6 L (31.0-37.0) g/dL RDW 17.8 H (11.5-15.5) % Neutrophils # (1.3-7.7) k/uL Lymphocytes # 0.5 L (1.0-4.8) k/uL Sodium (137-145) mmol/L Chloride (98-107) mmol/L Carbon Dioxide (22-30) mmol/L BUN (7-17) mg/dL Creatinine (0.52-1.04) mg/dL Glucose (74-99) mg/dL POC Glucose (mg/dL) 160 H 148 H (70-110) mg/dL Calcium (8.4-10.2) mg/dL Total Bilirubin (0.2-1.3) mg/dL Total Protein (6.3-8.2) g/dL Albumin (3.5-5.0) g/dL Procalcitonin (0.02-0.09) ng/mL Crossmatch 04/08/22 04/08/22 Range/Units 07:05 11:22 WBC (3.8-10.6) k/uL RBC (3.80-5.40) m/uL Hgb (11.4-16.0) gm/dL Hct (34.0-46.0) % MCHC (31.0-37.0) g/dL RDW (11.5-15.5) % Neutrophils # (1.3-7.7) k/uL Lymphocytes # (1.0-4.8) k/uL Sodium (137-145) mmol/L Chloride 97 L (98-107) mmol/L Carbon Dioxide 33 H (22-30) mmol/L BUN 31 H (7-17) mg/dL Creatinine 1.13 H (0.52-1.04) mg/dL Glucose 128 H (74-99) mg/dL POC Glucose (mg/dL) 176 H (70-110) mg/dL Calcium (8.4-10.2) mg/dL Total Bilirubin (0.2-1.3) mg/dL Total Protein (6.3-8.2) g/dL Albumin (3.5-5.0) g/dL Procalcitonin (0.02-0.09) ng/mL Crossmatch Microbiology - Last 24 Hours (Table) 04/07/22 01:30 Gram Stain - Preliminary Leg - Right Wound Culture - Preliminary Presumptive Staph aureus 04/06/22 14:00 Blood Culture - Preliminary Blood No Growth after 24 hours 04/06/22 14:15 Blood Culture - Preliminary Blood No Growth after 24 hours 04/07/22 01:30 Anaerobic Culture - Preliminary Leg - Right Assessment and Plan Assessment: Impression: Acute on chronic hypoxic respiratory failure secondary to acute diastolic congestive heart failure, chronic fibrotic changes from recent COVID-19 infection and anemia as well as atrial fibrillation. Acute on chronic anemia, possible GI blood losses although she had negative Hemoccult on admission and this will be repeated while in the ICU. Chronic atrial fibrillation, maintained on eliquis. Recent history of COVID-19 infection requiring discharge home on oxygen in January. Patient developed post inflammatory changes/fibrosis in both lungs from her COVID-19 infection Morbid obesity. Chronic venous stasis changes and suspected underlying cellulitis. Obesity hypoventilation syndrome. Type 2 diabetes. Diabetic neuropathy Dyslipidemia Obstructive sleep apnea syndrome, noncompliant with CPAP Chronic kidney disease stage III History of depression Nonsmoker. Recommendation: Continue diuretics Continue to monitor hemoglobin Continue to monitor her FiO2 and titrate oxygen accordingly echocardiogram was reviewed patient has adequate LV function Resume eliquis Recheck Hemoccult stools Continue Lasix at 40 mg IV push twice a day Continue metoprolol. Transfer out of the ICU to cardiac floor selective with monitor. We will continue to follow Time with Patient: Less than 30
[2022-04-08] MEDS ORDERED: HYDROPHILIC CREAM 180 GM TUBE TOPICAL SCH (12:00)
--- NOTE | 2022-04-08 15:36 | P.PN ---
Subjective Progress Note Date: 04/08/22 This is a 72-year-old female admitted with acute on chronic hypoxic respiratory failure, multifactorial, wears 2.5 L nasal cannula O2 at home. Currently maintaining O2 sats in the 90s on 3 L nasal cannula. Received 2 units total packed RBCs with current hemoglobin 7.2, Hemoccult stool negative on admission. Echo reported EF around 50%, concentric LVH-moderate degree, moderate pulmonary hypertension . Diuresing well on IV push diuretics with 24-hour I&O reflecting a negative fluid balance .Anticoagulation with Eliquis resumed. Denies any bleeding, denies rectal bleeding. Renal function stable, creatinine 1.13. Bilateral lower extremity cellulitis with wound cultures reporting presumptive staph aureus, afebrile, normal WBC. Infectious disease consulted. Objective - Vital Signs Vital signs: Vital Signs Temp 97.9 F 04/08/22 12:00 Pulse 84 04/08/22 12:00 Resp 20 04/08/22 12:00 BP 99/65 04/08/22 12:00 Pulse Ox 97 04/08/22 12:00 FiO2 Intake & Output 04/07/22 04/08/22 04/08/22 18:59 06:59 18:59 Intake Total 430 500 420 Output Total 900 1950 1400 Balance -618 -2302 -079 Weight 158.6 kg 156.7 kg Intake: Intake, IV Titration 200 Amount Magnesium Sulfate-D5w Pmx 200 1 gm In Dextrose/Water 1 100ml.bag @ 100 mls/hr IVPB Q1H [facility] Rx#: [id number] Oral 100 500 220 Blood Product 280 Rc Pheresis As-3 Unit 280 [id number] Other 50 Rc Pheresis As-3 Unit 50 [id number] Output: Urine 900 1950 1400 Other: Voiding Method External Catheter External Catheter External Catheter - Exam PHYSICAL EXAM: VITAL SIGNS: [As above] GENERAL: Alert and oriented 3, Sitting up in chair,no acute distress HEENT: Conjunctivae normal. eyes normal. Oral mucosa moist NECK: Supple, No JVD. CARDIOVASCULAR: S1, S2 regular. No murmur RESPIRATION: Bilateral air entry, fine bibasilar crackles ABDOMEN: Soft, obese, nontender . No guarding. no masses palpable. Bowel sounds heard. LEGS: Chronic venous stasis with bilateral lower extremity weeping cellulitis, positive edema, no clubbing, no cyanosis. NERVOUS SYSTEM: Cranial N 2-12 grossly normal. No focal deficits. Skin: Warm and dry, no rash. - Labs CBC & Chem 7: 04/08/22 07:05 04/08/22 07:05 Labs: Abnormal Lab Results - Last 24 Hours (Table) 04/06/22 04/07/22 04/07/22 Range/Units 20:11 11:12 16:24 RBC (3.80-5.40) m/uL Hgb (11.4-16.0) gm/dL Hct (34.0-46.0) % MCHC (31.0-37.0) g/dL RDW (11.5-15.5) % Neutrophils # (1.3-7.7) k/uL Lymphocytes # (1.0-4.8) k/uL Chloride (98-107) mmol/L Carbon Dioxide (22-30) mmol/L BUN (7-17) mg/dL Creatinine (0.52-1.04) mg/dL Glucose (74-99) mg/dL POC Glucose (mg/dL) 159 H (70-110) mg/dL Procalcitonin 0.20 H (0.02-0.09) ng/mL Crossmatch See Detail 04/07/22 04/07/22 04/08/22 Range/Units 19:00 21:20 06:53 RBC 2.43 L (3.80-5.40) m/uL Hgb 6.9 L* (11.4-16.0) gm/dL Hct 22.2 L (34.0-46.0) % MCHC (31.0-37.0) g/dL RDW 18.0 H (11.5-15.5) % Neutrophils # 7.9 H (1.3-7.7) k/uL Lymphocytes # 0.5 L (1.0-4.8) k/uL Chloride (98-107) mmol/L Carbon Dioxide (22-30) mmol/L BUN (7-17) mg/dL Creatinine (0.52-1.04) mg/dL Glucose (74-99) mg/dL POC Glucose (mg/dL) 160 H 148 H (70-110) mg/dL Procalcitonin (0.02-0.09) ng/mL Crossmatch 04/08/22 04/08/22 04/08/22 Range/Units 07:05 07:05 11:22 RBC 2.57 L (3.80-5.40) m/uL Hgb 7.2 L (11.4-16.0) gm/dL Hct 23.5 L (34.0-46.0) % MCHC 30.6 L (31.0-37.0) g/dL RDW 17.8 H (11.5-15.5) % Neutrophils # (1.3-7.7) k/uL Lymphocytes # 0.5 L (1.0-4.8) k/uL Chloride 97 L (98-107) mmol/L Carbon Dioxide 33 H (22-30) mmol/L BUN 31 H (7-17) mg/dL Creatinine 1.13 H (0.52-1.04) mg/dL Glucose 128 H (74-99) mg/dL POC Glucose (mg/dL) 176 H (70-110) mg/dL Procalcitonin (0.02-0.09) ng/mL Crossmatch Microbiology - Last 24 Hours (Table) 04/07/22 01:30 Gram Stain - Preliminary Leg - Right Wound Culture - Preliminary Presumptive Staph aureus 04/06/22 14:00 Blood Culture - Preliminary Blood No Growth after 24 hours 04/06/22 14:15 Blood Culture - Preliminary Blood No Growth after 24 hours Assessment and Plan Assessment: Acute congestive heart failure, diastolic dysfunction Recent COVID-19 pneumonia January 2022 with chronic fibrotic changes secondary to the Covid infection as per pulmonary Acute on chronic anemia, initial Hemoccult stool test negative, status post transfusion of RBCs Acute on chronic hypoxic respiratory failure, secondary to all the above, wears 2.5 L NC O2 at home Moderate pulmonary hypertension Bilateral lower extremity cellulitis, preliminary wound cultures reporting presumptive staph aureus Chronic atrial fibrillation, newly diagnosed on prior visit, January 2022 CAD, history of CABG Hypertension hyperlipidemia Diabetes mellitus Hypothyroidism History of bariatric surgery Morbid obesity, BMI 63.2 Plan: Continue on current medication regime ,monitoring and symptomatic treatment. Diuretics. Magnesium replacement .Close monitoring of hemoglobin, renal function, electrolytes with repeat labs ordered for a.m. Wound care as per wound care team. Infectious disease consult in place, recommendations pending. Recheck Hemoccult stool pending. PT OT, social work consults initiated- potent ial subacute rehab at discharge The impression and plan of care has been dictated as directed. : I performed a history and examination of this patient, discussed the same with the dictator. I agree with the dictator's note ,documented as a scribe. Any additional findings or plans will be noted.
[2022-04-08 16:56] LABS: Glucose,Whole Blood 182 mg/dL (70-110)
[2022-04-08 20:43] LABS: Glucose,Whole Blood 192 mg/dL (70-110)
[2022-04-08] MEDS: ATORVASTATIN 40 MG TAB PO SCH (22:20)
[2022-04-08 22:34] LABS: Glucose,Whole Blood 192 mg/dL (70-110)
--- NOTE | 2022-04-08 22:44 | PN ---
PROGRESS NOTE SUBJECTIVE: A 72-year-old lady with known CAD, status post CABG; status post COVID infection; recent atrial fibrillation, on anticoagulant, came to hospital with atrial fibrillation and shortness of breath due to a combination of COVID pneumonia, anemia and heart failure. This morning she is feeling better. Hemoglobin has improved to 7.2. OBJECTIVE: VITAL SIGNS: On exam, heart rate is 90 to 100 beats per minute, blood pressure is 113/37, respiratory rate is 18, O2 saturation is 96% on 3 L. NECK: There is no jugular venous distention. CHEST: Exam reveals good air entry bilaterally. HEART: Exam reveals first and second heart sounds, irregular rhythm and a systolic murmur at the apex. ABDOMEN: Soft. EXTREMITIES: Reveal mild edema bilaterally. MEDICATIONS: The patient is currently on Eliquis 5 b.i.d., Lipitor, Lasix 40 IV q.12, Imdur, Synthroid, Lopressor, and potassium. ASSESSMENT: 1. Persistent atrial fibrillation with poorly controlled ventricular rate. 2. Shortness of breath, multifactorial in origin, including anemia, underlying respiratory insufficiency and diastolic heart failure. PLAN: We will increase the dose of metoprolol to better control the heart rate. MMODL / IJN: [id number] /
[2022-04-08] MEDS ORDERED: VANCOMYCIN IV PER PHARMACY 1 EACH MISC MISCELLANE PRN (22:46)
--- NOTE | 2022-04-08 22:46 | P.CONS ---
History of Present Illness - Reason for Consult Consult date: 04/08/22 - History of Present Illness Patient is a 72-year-old female with recent diagnosis of COVID-19 in January 2022 and also have a history of atrial fibrillation presenting to the hospital 2 days ago for evaluation of increasing shortness of breath that has been getting worse for few days before presentation to the hospital patient denies having any chest pain did have occasional dry cough has been complaining of generalized malaise and anxiety and increasing swelling to the lower extremity especially the right leg did have some superficial ulceration and redness and pain to the leg more of a dull aching to sharp 4-5 out of 10 no radiation, with the symptom the patient has been evaluated by the ER physician on arrival to the ER the patient was afebrile and no fever have been recorded subsequently patient did have a white count of 12.5 on admission that has improved down to normal did have a low hemoglobin BUN and creatinine has been slightly elevated liver enzymes has been normal, WAS mildly elevated COVID testing was negative patient did have a blood cultures are currently pending left leg swab showing a staph aureus patient is currently being treated with the no antibiotics infectious disease was consulted for further management of antibiotic therapy Past Medical History Past Medical History: Atrial Fibrillation, Coronary Artery Disease (CAD), Diabetes Mellitus, Eye Disorder, Hyperlipidemia, Hypertension, Osteoarthritis (OA), Pneumonia, Renal Disease, Sleep Apnea/CPAP/BIPAP, Thyroid Disorder Additional Past Medical History / Comment(s): Pt recently admitted to [facility] on 02/12/22 with covic pneumonia/sepsis, acute hypoxic respiratory failure/now on home oxygen ATC, new A fib with RVR. Other hx: IDDM type II, neuropathy bilate ral feet, L eye retinal bleed/lasik eye surgery, R eye cataract, bilateral eye macular degeneration/gets injections/poor vision, CKD stage III, anemia, UTI/sepsis, bilateral leg lymphedema/currently has "rash" R lower leg/one spot on L lower leg, FLORES/does not have cpap machine at this time, diverticulitis, gout, chronic back pain, rheumatic fever, hypothyroid. History of Any Multi-Drug Resistant Organisms: None Reported Past Surgical History: Bariatric Surgery, Section, Cholecystectomy, Coronary Bypass/CABG, Heart Catheterization, Hysterectomy, Tonsillectomy Additional Past Surgical History / Comment(s): A 2 vessel CABG in 1996, bilateral carpal tunnel release, lap band, L eye laser surgery, Past Anesthesia/Blood Transfusion Reactions: No Reported Reaction Smoking Status: Never smoker - Past Family History Father Family Medical History: Cancer, Coronary Artery Disease (CAD), Diabetes Mellitus Additional Family Medical History / Comment(s): Prostate cancer Mother Family Medical History: Cancer Additional Family Medical History / Comment(s): Bone cancer. Medications and Allergies Home Medications Medication Instructions Recorded Confirmed Type Aspirin 81 mg PO DAILY 08/10/16 04/06/22 History Atorvastatin [Lipitor] 40 mg PO DAILY 08/10/16 04/06/22 History Insulin Detemir (Levemir) [Levemir] 60 unit SQ BID 08/10/16 04/06/22 History Isosorbide Mononitrate [Isosorbide 30 mg PO DAILY 08/10/16 04/06/22 History Mononitrate ER] Levothyroxine Sodium [Tirosint] 50 mcg PO DAILY 08/10/16 04/06/22 History Oxybutynin Chloride 5 mg PO BID 08/10/16 04/06/22 History Potassium Chloride [Klor-Con 10 ER] 20 meq PO DAILY 08/10/16 04/06/22 History Sertraline [Zoloft] 100 mg PO BID 08/10/16 04/06/22 History Furosemide [Lasix] 20 mg PO DAILY 11/16/21 04/06/22 History Gabapentin [Neurontin] 300 mg PO BID 11/16/21 04/06/22 History Apixaban [Eliquis] 5 mg PO BID #60 tab 02/16/22 04/06/22 Rx Amiodarone HCl [Pacerone] 200 mg PO DAILY 04/06/22 04/06/22 History INSULIN ASPART (NovoLOG) [NovoLOG 40 unit SQ BID PRN 04/06/22 04/06/22 History (formulary)] Metoprolol Tartrate [Lopressor] 50 mg PO DAILY 04/06/22 04/06/22 History Mupirocin 2% Oint [Bactroban 2% 1 applic TOPICAL BID 04/06/22 04/06/22 History Oint] Nystatin 100,000Unit/gm Cream 1 applic TOPICAL BID 04/06/22 04/06/22 History [Mycostatin Cream] Allergies Allergy/AdvReac Type Severity Reaction Status Date / Time ibuprofen [From Motrin] Allergy Rash/Hives Verified 04/06/22 15:26 Penicillins Allergy Anaphylaxis Verified 04/06/22 15:26 Physical Exam Vitals: Vital Signs Temp Pulse Resp BP Pulse Ox 04/08/22 09:00 103 H 22 115/37 96 04/08/22 08:11 96 04/08/22 08:00 98.1 F 92 22 118/56 93 L 04/08/22 06:00 86 18 103/52 95 04/08/22 04:00 98 F 92 14 112/49 95 04/08/22 02:00 86 17 108/50 97 04/08/22 00:00 98.0 F 90 19 107/51 97 04/07/22 23:00 95 19 112/57 96 04/07/22 22:00 89 22 108/54 97 04/07/22 21:00 80 20 114/55 97 04/07/22 20:00 98.1 F 86 19 129/67 96 Intake and Output 04/07/22 04/08/22 04/08/22 22:59 06:59 14:59 Intake Total 830 300 Output Total 350 1600 400 Balance 480 -1600 -100 Intake: Intake, IV Titration 200 Amount Magnesium Sulfate-D5w Pmx 200 1 gm In Dextrose/Water 1 100ml.bag @ 100 mls/hr IVPB Q1H [facility] Rx#: [id number] Oral 500 100 Blood Product 280 Rc Pheresis As-3 Unit 280 [id number] Other 50 Rc Pheresis As-3 Unit 50 [id number] Output: Urine 350 1600 400 Other: Voiding Method External Catheter External Catheter External Catheter Weight 156.7 kg Results CBC & Chem 7: 04/08/22 07:05 04/08/22 07:05 Labs: Abnormal Lab Results - Last 24 Hours (Table) 04/06/22 04/07/22 04/07/22 Range/Units 20:11 11:12 16:24 RBC (3.80-5.40) m/uL Hgb (11.4-16.0) gm/dL Hct (34.0-46.0) % MCHC (31.0-37.0) g/dL RDW (11.5-15.5) % Neutrophils # (1.3-7.7) k/uL Lymphocytes # (1.0-4.8) k/uL Chloride (98-107) mmol/L Carbon Dioxide (22-30) mmol/L BUN (7-17) mg/dL Creatinine (0.52-1.04) mg/dL Glucose (74-99) mg/dL POC Glucose (mg/dL) 159 H (70-110) mg/dL Procalcitonin 0.20 H (0.02-0.09) ng/mL Crossmatch See Detail 04/07/22 04/07/22 04/08/22 Range/Units 19:00 21:20 06:53 RBC 2.43 L (3.80-5.40) m/uL Hgb 6.9 L* (11.4-16.0) gm/dL Hct 22.2 L (34.0-46.0) % MCHC (31.0-37.0) g/dL RDW 18.0 H (11.5-15.5) % Neutrophils # 7.9 H (1.3-7.7) k/uL Lymphocytes # 0.5 L (1.0-4.8) k/uL Chloride (98-107) mmol/L Carbon Dioxide (22-30) mmol/L BUN (7-17) mg/dL Creatinine (0.52-1.04) mg/dL Glucose (74-99) mg/dL POC Glucose (mg/dL) 160 H 148 H (70-110) mg/dL Procalcitonin (0.02-0.09) ng/mL Crossmatch 04/08/22 04/08/22 04/08/22 Range/Units 07:05 07:05 11:22 RBC 2.57 L (3.80-5.40) m/uL Hgb 7.2 L (11.4-16.0) gm/dL Hct 23.5 L (34.0-46.0) % MCHC 30.6 L (31.0-37.0) g/dL RDW 17.8 H (11.5-15.5) % Neutrophils # (1.3-7.7) k/uL Lymphocytes # 0.5 L (1.0-4.8) k/uL Chloride 97 L (98-107) mmol/L Carbon Dioxide 33 H (22-30) mmol/L BUN 31 H (7-17) mg/dL Creatinine 1.13 H (0.52-1.04) mg/dL Glucose 128 H (74-99) mg/dL POC Glucose (mg/dL) 176 H (70-110) mg/dL Procalcitonin (0.02-0.09) ng/mL Crossmatch Microbiology - Last 24 Hours (Table) 04/07/22 01:30 Gram Stain - Preliminary Leg - Right Wound Culture - Preliminary Presumptive Staph aureus 04/06/22 14:00 Blood Culture - Preliminary Blood No Growth after 24 hours 04/06/22 14:15 Blood Culture - Preliminary Blood No Growth after 24 hours 04/07/22 01:30 Anaerobic Culture - Preliminary Leg - Right Assessment and Plan Plan: 1patient with a left lower extremity cellulitis with diffuse swelling redness and some superficial ulceration minimal drainage with a culture currently showing a staph for his in this patient with a recent admission to the hospital and will need for 4 possible pneumonia site with a likely pathogen while waiting for the culture to finalize. 2marked the area of the redness. 3Ace wrap to the leg from just above the toe to below the knee. 4vancomycin pharmacy to dose target trough of 15 while watching kidney function and vancomycin trough closely. 5penicillin allergy that would limit the number of antibiotics safe to use. We will follow on clinical condition and cultures to further adjust medication if needed Thank you for this consultation will follow this patient along with you Time with Patient: Greater than 30
[2022-04-08] MEDS ORDERED: VANCOMYCIN 2,250 MG in SODIUM CHLORIDE 0.9% 500 ML 500 ML IVPB STA (22:51)
[2022-04-09 06:42] LABS: Glucose,Whole Blood 166 mg/dL (70-110)
[2022-04-09 07:54] LABS: Glucose,Whole Blood 179 mg/dL (70-110)
[2022-04-09] MEDS: LEVOTHYROXINE 50 MCG TAB PO SCH (07:54)
[2022-04-09] MEDS: INSULIN ASPART (NovoLOG) 100 UNIT/ML VIAL SQ SCH ×5 (07:59→21:36)
[2022-04-09 08:43] LABS: Anisocytosis Slight; HCT 25.3 % (34.0-46.0); HGB 7.6 gm/dL (11.4-16.0); Hypochromasia Marked; MCH 27.6 pg (25.0-35.0); MCHC 29.9 g/dL (31.0-37.0); MCV 92.4 fL (80.0-100.0); Mean Platelet Volume 8.6; Platelet Count 194 k/uL (150-450); RBC 2.73 m/uL (3.80-5.40); RDW 17.4 % (11.5-15.5); WBC 9.5 k/uL (3.8-10.6)
[2022-04-09 09:17] LABS: Calcium 8.5 mg/dL (8.4-10.2); Potassium 4.3 mmol/L (3.5-5.1)
[2022-04-09] MEDS: GABAPENTIN 300 MG CAP PO SCH ×2 (09:24→21:36)
[2022-04-09] MEDS: APIXABAN 5 MG TAB PO SCH ×2 (09:25→21:36)
[2022-04-09] MEDS: POTASSIUM CHLORIDE ER 20 MEQ TAB.ER PO SCH (09:25)
[2022-04-09] MEDS: FUROSEMIDE 10 MG/ML 4 ML VIAL IV SCH ×2 (09:25→22:27)
[2022-04-09] MEDS: METOPROLOL TARTRATE 50 MG TAB PO SCH ×3 (09:25→21:36)
[2022-04-09] MEDS: ISOSORBIDE MONONITRATE ER 30 MG TAB.ER.24H PO SCH (09:25)
[2022-04-09] MEDS: OXYBUTYNIN CHLORIDE 5 MG TAB PO SCH ×2 (09:27→21:36)
[2022-04-09] MEDS: SERTRALINE 100 MG TAB PO SCH ×2 (09:27→21:36)
--- NOTE | 2022-04-09 10:54 | P.HPIM ---
History of Present Illness H&P Date: 04/07/22 Chief Complaint: Shortness of breath This 72-year-old white female came in to the emergency room on morning of April 06 of increased shortness breath and tachycardia. She has a history of Cob[place] pneumonia in January. She is on oxygen at 2 L/m via nasal cannula at home due to this. She was newly diagnosed atrial fibrillation and is on Elequis this. Emergency room she was found to be anemic and tachypnic. Found to have the worsening scarring and pneumonia picture consistent with COVID-19 on her lungs. She also appeared to be fluid overloaded. He is also type II diabetic and was not immunized for coated originally. She has a history of CABG She also has new findings of some redness and punctate lesions to her right lower extremity along with edema.. Review of Systems All systems: negative Past Medical History Past Medical History: Atrial Fibrillation, Coronary Artery Disease (CAD), Diabetes Mellitus, Eye Disorder, Hyperlipidemia, Hypertension, Osteoarthritis (OA), Pneumonia, Renal Disease, Sleep Apnea/CPAP/BIPAP, Thyroid Disorder Additional Past Medical History / Comment(s): Pt recently admitted to [facility] on 02/12/22 with covic pneumonia/sepsis, acute hypoxic respiratory failure/now on home oxygen ATC, new A fib with RVR. Other hx: IDDM type II, neuropathy bilateral feet, L eye retinal bleed/lasik eye surgery, R eye cataract, bilateral eye macular degeneration/gets injections/poor vision, CKD stage III, anemia, UTI/sepsis, bilateral leg lymphedema/currently has "rash" R lower leg/one spot on L lower leg, FLORES/does not have cpap machine at this time, diverticulitis, gout, chronic back pain, rheumatic fever, hypothyroid. History of Any Multi-Drug Resistant Organisms: None Reported Past Surgical History: Bariatric Surgery, Section, Cholecystectomy, Coronary Bypass/CABG, Heart Catheterization, Hysterectomy, Tonsillectomy Additional Past Surgical History / Comment(s): A 2 vessel CABG in 1996, bilateral carpal tunnel release, lap band, L eye laser surgery, Past Anesthesia/Blood Transfusion Reactions: No Reported Reaction Smoking Status: Never smoker - Past Family History Father Family Medical History: Cancer, Coronary Artery Disease (CAD), Diabetes Mellitus Additional Family Medical History / Comment(s): Prostate cancer Mother Family Medical History: Cancer Additional Family Medical History / Comment(s): Bone cancer. Medications and Allergies Home Medications Medication Instructions Recorded Confirmed Type Aspirin 81 mg PO DAILY 08/10/16 04/06/22 History Atorvastatin [Lipitor] 40 mg PO DAILY 08/10/16 04/06/22 History Insulin Detemir (Levemir) [Levemir] 60 unit SQ BID 08/10/16 04/06/22 History Isosorbide Mononitrate [Isosorbide 30 mg PO DAILY 08/10/16 04/06/22 History Mononitrate ER] Levothyroxine Sodium [Tirosint] 50 mcg PO DAILY 08/10/16 04/06/22 History Oxybutynin Chloride 5 mg PO BID 08/10/16 04/06/22 History Potassium Chloride [Klor-Con 10 ER] 20 meq PO DAILY 08/10/16 04/06/22 History Sertraline [Zoloft] 100 mg PO BID 08/10/16 04/06/22 History Furosemide [Lasix] 20 mg PO DAILY 11/16/21 04/06/22 History Gabapentin [Neurontin] 300 mg PO BID 11/16/21 04/06/22 History Apixaban [Eliquis] 5 mg PO BID #60 tab 02/16/22 04/06/22 Rx Amiodarone HCl [Pacerone] 200 mg PO DAILY 04/06/22 04/06/22 History INSULIN ASPART (NovoLOG) [NovoLOG 40 unit SQ BID PRN 04/06/22 04/06/22 History (formulary)] Metoprolol Tartrate [Lopressor] 50 mg PO DAILY 04/06/22 04/06/22 History Mupirocin 2% Oint [Bactroban 2% 1 applic TOPICAL BID 04/06/22 04/06/22 History Oint] Nystatin 100,000Unit/gm Cream 1 applic TOPICAL BID 04/06/22 04/06/22 History [Mycostatin Cream] Allergies Allergy/AdvReac Type Severity Reaction Status Date / Time ibuprofen [From Motrin] Allergy Rash/Hives Verified 04/06/22 15:26 Penicillins Allergy Anaphylaxis Verified 04/06/22 15:26 Physical Exam Vitals: Vital Signs Temp Pulse Resp BP Pulse Ox 04/09/22 08:13 96 04/09/22 08:00 98.1 F 105 H 22 125/47 98 04/09/22 04:00 100 12 136/63 96 04/09/22 00:00 22 136/63 100 04/08/22 20:00 97.5 F L 84 22 132/59 98 04/08/22 16:00 97.9 F 85 22 121/55 95 04/08/22 12:00 97.9 F 84 20 99/65 97 Intake and Output 04/08/22 04/09/22 04/09/22 22:59 06:59 14:59 Intake Total 1270 300 Output Total 1650 400 Balance -380 -100 Intake: IV 200 300 Vancomycin 2,250 mg In 200 300 Sodium Chloride 0.9% 500 ml 500 ml @ 167 mls/hr IVPB ONCE STA Rx#: [id number] Oral 1070 Output: Urine 1650 400 Other: Voiding Method External Catheter External Catheter External Catheter Weight 157 kg GENERAL: Morbidly obese, fatigued, Alert and oriented 3, lying in bed HEENT: Conjunctivae normal. eyes normal. Oral mucosa moist NECK: Supple, No JVD. CARDIOVASCULAR: S1, S2 regular. No murmur RESPIRATION: Bilateral air entry, fine bibasilar crackles ABDOMEN: Soft, obese, nontender . No guarding. no masses palpable. Bowel sounds heard. LEGS: Chronic venous stasis with bilateral lower extremity weeping cellulitis, positive edema, no clubbing, no cyanosis. NERVOUS SYSTEM: Cranial N 2-12 grossly normal. No focal deficits. Skin: Warm and dry, no rash. Results CBC & Chem 7: 04/09/22 05:23 04/09/22 05:23 Labs: Abnormal Lab Results - Last 24 Hours (Table) 04/08/22 04/08/22 04/08/22 Range/Units 11:22 16:55 20:41 RBC (3.80-5.40) m/uL Hgb (11.4-16.0) gm/dL Hct (34.0-46.0) % MCHC (31.0-37.0) g/dL RDW (11.5-15.5) % Sodium (137-145) mmol/L Chloride (98-107) mmol/L Carbon Dioxide (22-30) mmol/L BUN (7-17) mg/dL Creatinine (0.52-1.04) mg/dL Glucose (74-99) mg/dL POC Glucose (mg/dL) 176 H 182 H 192 H (70-110) mg/dL 04/08/22 04/09/22 04/09/22 Range/Units 22:33 05:23 05:23 RBC 2.73 L (3.80-5.40) m/uL Hgb 7.6 L (11.4-16.0) gm/dL Hct 25.3 L (34.0-46.0) % MCHC 29.9 L (31.0-37.0) g/dL RDW 17.4 H (11.5-15.5) % Sodium 136 L (137-145) mmol/L Chloride 93 L (98-107) mmol/L Carbon Dioxide 34 H (22-30) mmol/L BUN 34 H (7-17) mg/dL Creatinine 1.07 H (0.52-1.04) mg/dL Glucose 150 H (74-99) mg/dL POC Glucose (mg/dL) 192 H (70-110) mg/dL 04/09/22 04/09/22 Range/Units 06:40 07:53 RBC (3.80-5.40) m/uL Hgb (11.4-16.0) gm/dL Hct (34.0-46.0) % MCHC (31.0-37.0) g/dL RDW (11.5-15.5) % Sodium (137-145) mmol/L Chloride (98-107) mmol/L Carbon Dioxide (22-30) mmol/L BUN (7-17) mg/dL Creatinine (0.52-1.04) mg/dL Glucose (74-99) mg/dL POC Glucose (mg/dL) 166 H 179 H (70-110) mg/dL Microbiology - Last 24 Hours (Table) 04/07/22 01:30 Gram Stain - Final Leg - Right Wound Culture - Final Staphylococcus aureus 04/06/22 14:15 Blood Culture - Preliminary Blood No Growth after 48 hours 04/06/22 14:00 Blood Culture - Preliminary Blood No Growth after 48 hours Chest x-ray: report reviewed (Venous Doppler reviewed.) CT scan - chest: report reviewed Thrombosis Risk Factor Assmnt - DVT/VTE Prophylaxis DVT/VTE Prophylaxis: Pharmacologic Prophylaxis ordered (She will need to be monitored regarding her anemia.) - Choose All That Apply Any of the Below Risk Factors Present?: Yes Each Factor Represents 1 point: Heart failure (<1month), Obesity (BMI >25), Serious lung disease incl. pneumonia (< 1month), Swollen legs (current) Other Risk Factors: Yes Each Risk Factor Represents 2 Points: Age 61-74 years Other congenital or acquired thrombophilia - If yes, enter type in comment: No Thrombosis Risk Factor Assessment Total Risk Factor Score: 6 Thrombosis Risk Factor Assessment Level: High Risk Assessment and Plan (1) Acute on chronic diastolic (congestive) heart failure Current Visit: Yes Status: Acute Code(s): I50.33 - ACUTE ON CHRONIC DIASTOLIC (CONGESTIVE) HEART FAILURE SNOMED Code(s): 541008443 (2) Acute on chronic anemia Current Visit: Yes Status: Acute Code(s): D64.9 - ANEMIA, UNSPECIFIED SNOMED Code(s): 219523814 (3) Atrial fibrillation Current Visit: Yes Status: Acute Code(s): I48.91 - UNSPECIFIED ATRIAL FIBRILLATION SNOMED Code(s): 33464079 (4) Multifocal pneumonia Current Visit: Yes Status: Acute Code(s): J18.9 - PNEUMONIA, UNSPECIFIED ORGANISM SNOMED Code(s): 623726412 (5) Non-pressure chronic ulcer of right calf limited to breakdown of skin Current Visit: Yes Status: Acute Code(s): L97.211 - NON-PRS CHRONIC ULCER OF RIGHT CALF LIMITED TO BRKDWN SKIN SNOMED Code(s): 78394740232703071 (6) Type 2 diabetes mellitus with other skin ulcer Current Visit: Yes Status: Acute Code(s): E11.622 - TYPE 2 DIABETES MELLITUS WITH OTHER SKIN ULCER; L98.499 - NON-PRESSURE CHRONIC ULCER OF SKIN OF SITES W UNSP SEVERITY SNOMED Code(s): 954967204 (7) Cellulitis of right foot Current Visit: No Status: Acute Code(s): L03.115 - CELLULITIS OF RIGHT LOWER LIMB SNOMED Code(s): 331423616 (8) History of hypertension Current Visit: No Status: Acute Code(s): Z86.79 - PERSONAL HISTORY OF OTHER DISEASES OF THE CIRCULATORY SYSTEM SNOMED Code(s): 136862327 (9) History of hypothyroidism Current Visit: No Status: Acute Code(s): Z86.39 - PERSONAL HISTORY OF ENDO, NUTRITIONAL AND METABOLIC DISEASE SNOMED Code(s): 401440424 (10) Type 2 diabetes mellitus Current Visit: No Status: Acute Code(s): E11.9 - TYPE 2 DIABETES MELLITUS WITHOUT COMPLICATIONS SNOMED Code(s): 84903484 Plan: The patient will be diuresed. She'll be restarted on her Elequis and other home medications at this time. We'll consult cardiology for further evaluation of her A. fib and consult pulmonology regarding her abnormal x-ray, pneumonia, and recent history of cocaine. Outside the window being contagious for code at this time. We'll repeat labs in a.m. And she'll be reevaluated next 24 hours.
[2022-04-09 12:06] LABS: Glucose,Whole Blood 362 mg/dL (70-110)
--- NOTE | 2022-04-09 12:39 | P.PN ---
Subjective Progress Note Date: 04/09/22 Patient is a known history of CAD status post CABG, status post Covid infection, recent atrial fibrillation on anticoagulation, presents to the hospital for atrial fibrillation and increased shortness of breath due to Covid pneumonia, anemia, and heart failure. Patient is examined today resting comfortably in bed. She remains in atrial fibrillation with a controlled heart rate in the 80s, she remains anemic with hemoglobin is 7.6. She continues on Eliquis and Lopressor. Her echocardiogram shows low normal LV function mild aortic stenosis Objective - Vital Signs Vital signs: Vital Signs Temp 98.1 F 04/09/22 12:00 Pulse 101 H 04/09/22 12:00 Resp 18 04/09/22 12:00 BP 110/65 04/09/22 12:00 Pulse Ox 95 04/09/22 12:00 FiO2 Intake & Output 04/08/22 04/09/22 04/09/22 18:59 06:59 18:59 Intake Total 1040 950 240 Output Total 2050 1400 800 Balance -1010 -450 -560 Weight 157 kg Intake: IV 500 240 Vancomycin 2,250 mg In 500 240 Sodium Chloride 0.9% 500 ml 500 ml @ 167 mls/hr IVPB ONCE STA Rx#: [id number] Intake, IV Titration 200 Amount Magnesium Sulfate-D5w Pmx 200 1 gm In Dextrose/Water 1 100ml.bag @ 100 mls/hr IVPB Q1H [facility] Rx#: [id number] Oral 840 450 Output: Urine 2050 1400 800 Other: Voiding Method External Catheter External Catheter External Catheter - Exam PHYSICAL EXAM: VITAL SIGNS: Reviewed. GENERAL: Well-developed in no acute distress. HEENT: Head is normocephalic. Pupils are equal, round. Sclerae anicteric. Mucous membranes of the mouth are moist. NECK: Supple. No JVD or thyromegaly RESPIRATORY: Respirations even and unlabored. Lungs diminished to auscultation bilaterally. CARDIO: irregular rate and rhythm. S1 and S2 heard. No gallops. Ejection systolic murmur at the aortic area EXTREMITIES: Normal range of motion. No clubbing or cyanosis. Peripheral pulses intact. Negative for bilateral lower extremity edema NEURO: Orientated to person, time, mood is appropriate - Labs CBC & Chem 7: 04/09/22 05:23 04/09/22 05:23 Labs: Abnormal Lab Results - Last 24 Hours (Table) 04/08/22 04/08/22 04/08/22 Range/Units 16:55 20:41 22:33 RBC (3.80-5.40) m/uL Hgb (11.4-16.0) gm/dL Hct (34.0-46.0) % MCHC (31.0-37.0) g/dL RDW (11.5-15.5) % Sodium (137-145) mmol/L Chloride (98-107) mmol/L Carbon Dioxide (22-30) mmol/L BUN (7-17) mg/dL Creatinine (0.52-1.04) mg/dL Glucose (74-99) mg/dL POC Glucose (mg/dL) 182 H 192 H 192 H (70-110) mg/dL 04/09/22 04/09/22 04/09/22 Range/Units 05:23 05:23 06:40 RBC 2.73 L (3.80-5.40) m/uL Hgb 7.6 L (11.4-16.0) gm/dL Hct 25.3 L (34.0-46.0) % MCHC 29.9 L (31.0-37.0) g/dL RDW 17.4 H (11.5-15.5) % Sodium 136 L (137-145) mmol/L Chloride 93 L (98-107) mmol/L Carbon Dioxide 34 H (22-30) mmol/L BUN 34 H (7-17) mg/dL Creatinine 1.07 H (0.52-1.04) mg/dL Glucose 150 H (74-99) mg/dL POC Glucose (mg/dL) 166 H (70-110) mg/dL 04/09/22 04/09/22 Range/Units 07:53 12:04 RBC (3.80-5.40) m/uL Hgb (11.4-16.0) gm/dL Hct (34.0-46.0) % MCHC (31.0-37.0) g/dL RDW (11.5-15.5) % Sodium (137-145) mmol/L Chloride (98-107) mmol/L Carbon Dioxide (22-30) mmol/L BUN (7-17) mg/dL Creatinine (0.52-1.04) mg/dL Glucose (74-99) mg/dL POC Glucose (mg/dL) 179 H 362 H (70-110) mg/dL Microbiology - Last 24 Hours (Table) 04/07/22 01:30 Gram Stain - Final Leg - Right Wound Culture - Final Staphylococcus aureus 04/06/22 14:15 Blood Culture - Preliminary Blood No Growth after 48 hours 04/06/22 14:00 Blood Culture - Preliminary Blood No Growth after 48 hours Assessment and Plan Assessment: Persistent atrial fibrillation Acute on chronic diastolic congestive heart failure Shortness of breath secondary to anemia and underlying respiratory insufficiency due to Covid pneumonia Plan: Continue with all current cardiac medications Further recommendations based on clinical course The above impression and plan of care have been discussed and directed by the signing physician. Macarena Kerr, nurse practitioner, acting as scribe for [facility] physician.
--- NOTE | 2022-04-09 14:02 | P.PN ---
Subjective Progress Note Date: 04/09/22 Principal diagnosis: Acute on chronic hypoxic respiratory failure, secondary to pulmonary edema and recent history of COVID-19 infection with underlying pulmonary fibrosis from pre vious COVID-19 infection. This is a pleasant 72-year-old morbidly obese female patient with a known history of hypertension, depression/anxiety, hypothyroidism, chronic atrial fibrillation maintained on Eliquis, recent COVID-19 infection in January 2022 requiring home oxygen at 2 L/m per nasal cannula, diabetes mellitus, diabetic neuropathy, chronic lower extremity edema/cellulitis. She represented here yesterday with complaints of increasing shortness of breath has been resting over the past several days. EKG revealed atrial fibrillation with a right bundle-branch block. Chest x-ray reveals multifocal diffuse patchy airspace opacities increased from previous concerning for multifocal pneumonia/fluid volume overload. There is small bilateral pleural effusions with pulmonary vascular congestion. CT angiogram ruled out pulmonary embolism. Small left and small moderate right pleural effusions with diffuse multifocal groundglass opacities consistent with previous COVID-19 infection and possible pulmonary edema. Doppler of the bilateral lower extremities were negative for DVT. White count 11.1. Hemoglobin 6.4. Platelets 152. Sodium 137. Potassium 4.9. BUN 30. Creatinine 1.08. Glucose 139. Hemoglobin A1c 6.6. Troponin 0.099. ProBNP 6730. She was initiated on Lasix 40 mg IV every 12 hours. Anticoagulated with Eliquis. She did receive 1 unit of packed red blood cells. Follow-up hemoglobin pending. Reevaluated today on 04/08/22, patient remains in the ICU, feeling better today, she is down to 3 L nasal cannula. Patient is dropping her hemoglobin however she had negative Hemoccult stool on admission. She did receive 2 units of packed RBCs since admission, and her hemoglobin today is 7.2. Her eliquis was on hold but restarted today. Patient is feeling better clinically, less short of breath, and on physical examinations he seems to have less crackles at the bases bilaterally. WBC count is 8.5 hemoglobin is 7.2 electrolytes are normal renal profile is normal creatinine 1.13. Echocardiogram showed no evidence of LV dysfunction, there was concentric LVH and mitral valve calcification with aortic valve sclerosis no pericardial effusion there is evidence of moderate pulmonary hypertension. Reevaluated today on 04/09/22, patient remains in the ICU, she is presently overflow, she is on 2 L nasal cannula, she is not requiring any drips, hemoglobin is holding at 7.6. Patient remains on diuretics. On eliquis, on cefazolin, she is also on Lasix 40 mg every 12 hours, patient is gradually improving, and pulmonary status seems to be steadily better. WBC count today is 9.5 hemoglobin is 7.6 electrolytes are normal renal profile showed a BUN of 34 creatinine 1.07. Objective - Vital Signs Vital signs: Vital Signs Temp 98.1 F 04/09/22 12:00 Pulse 101 H 04/09/22 12:00 Resp 18 04/09/22 12:00 BP 110/65 04/09/22 12:00 Pulse Ox 95 04/09/22 13:49 FiO2 Intake & Output 04/08/22 04/09/22 04/09/22 18:59 06:59 18:59 Intake Total 1040 950 240 Output Total 2050 1400 800 Balance -1010 -450 -560 Weight 157 kg Intake: IV 500 240 Vancomycin 2,250 mg In 500 240 Sodium Chloride 0.9% 500 ml 500 ml @ 167 mls/hr IVPB ONCE STA Rx#: [id number] Intake, IV Titration 200 Amount Magnesium Sulfate-D5w Pmx 200 1 gm In Dextrose/Water 1 100ml.bag @ 100 mls/hr IVPB Q1H [facility] Rx#: [id number] Oral 840 450 Output: Urine 2050 1400 800 Other: Voiding Method External Catheter External Catheter External Catheter - Exam GENERAL EXAM: Revealed a 72-year-old female obese, on 2 L nasal cannula, not in distress. HEAD: Atraumatic, Normocephalic. EYES: PERRLA, EOMI, anicteric. NOSE: Clear with pink turbinates. THROAT: No erythema or exudates. NECK: No masses, no JVD. CHEST: No chest wall deformity. LUNGS: Minimal crackles at the bases no rhonchi and no wheezes CVS: Distant S1 and S2, no S3 gallop. 2/6 systolic murmur thought the precordium. ABDOMEN: Obese soft nontender no megaly no rebound. SKIN: Cellulitis of the lower extremities CENTRAL NERVOUS SYSTEM: Alert and oriented 3 and no gross focal deficits. EXTREMITIES: Changes of chronic venous stasis. There is 1-2+ peripheral edema. No clubbing, no cyanosis. Peripheral pulses are intact. - Labs CBC & Chem 7: 04/09/22 05:23 04/09/22 05:23 Labs: Abnormal Lab Results - Last 24 Hours (Table) 04/08/22 04/08/22 04/08/22 Range/Units 16:55 20:41 22:33 RBC (3.80-5.40) m/uL Hgb (11.4-16.0) gm/dL Hct (34.0-46.0) % MCHC (31.0-37.0) g/dL RDW (11.5-15.5) % Sodium (137-145) mmol/L Chloride (98-107) mmol/L Carbon Dioxide (22-30) mmol/L BUN (7-17) mg/dL Creatinine (0.52-1.04) mg/dL Glucose (74-99) mg/dL POC Glucose (mg/dL) 182 H 192 H 192 H (70-110) mg/dL 04/09/22 04/09/22 04/09/22 Range/Units 05:23 05:23 06:40 RBC 2.73 L (3.80-5.40) m/uL Hgb 7.6 L (11.4-16.0) gm/dL Hct 25.3 L (34.0-46.0) % MCHC 29.9 L (31.0-37.0) g/dL RDW 17.4 H (11.5-15.5) % Sodium 136 L (137-145) mmol/L Chloride 93 L (98-107) mmol/L Carbon Dioxide 34 H (22-30) mmol/L BUN 34 H (7-17) mg/dL Creatinine 1.07 H (0.52-1.04) mg/dL Glucose 150 H (74-99) mg/dL POC Glucose (mg/dL) 166 H (70-110) mg/dL 04/09/22 04/09/22 Range/Units 07:53 12:04 RBC (3.80-5.40) m/uL Hgb (11.4-16.0) gm/dL Hct (34.0-46.0) % MCHC (31.0-37.0) g/dL RDW (11.5-15.5) % Sodium (137-145) mmol/L Chloride (98-107) mmol/L Carbon Dioxide (22-30) mmol/L BUN (7-17) mg/dL Creatinine (0.52-1.04) mg/dL Glucose (74-99) mg/dL POC Glucose (mg/dL) 179 H 362 H (70-110) mg/dL Microbiology - Last 24 Hours (Table) 04/07/22 01:30 Anaerobic Culture - Preliminary Leg - Right 04/07/22 01:30 Gram Stain - Final Leg - Right Wound Culture - Final Staphylococcus aureus 04/06/22 14:15 Blood Culture - Preliminary Blood No Growth after 48 hours 04/06/22 14:00 Blood Culture - Preliminary Blood No Growth after 48 hours Assessment and Plan Assessment: Impression: Acute on chronic hypoxic respiratory failure secondary to acute diastolic congestive heart failure, chronic fibrotic changes from recent COVID-19 infection and anemia as well as atrial fibrillation. Acute on chronic anemia, possible GI blood losses although she had negative Hemoccult on admission and this will be repeated while in the ICU. Chronic atrial fibrillation, maintained on eliquis. Recent history of COVID-19 infection requiring discharge home on oxygen in January. Patient developed post inflammatory changes/fibrosis in both lungs from her COVID-19 infection Morbid obesity. Chronic venous stasis changes and suspected underlying cellulitis. Obesity hypoventilation syndrome. Type 2 diabetes. Diabetic neuropathy Dyslipidemia Obstructive sleep apnea syndrome, noncompliant with CPAP Chronic kidney disease stage III History of depression Nonsmoker. Recommendation: Transfer to regular medical floor or to a monitor bed. Consider transfer to ECF in the next 24 hours. Continue diuretics, transition to oral instead of IV Lasix. Continue to monitor hemoglobin Continue to monitor her FiO2 and titrate oxygen accordingly Continue eliquis Continue metoprolol. We will continue to follow Time with Patient: Less than 30
[2022-04-09 16:24] LABS: Glucose,Whole Blood 341 mg/dL (70-110)
--- NOTE | 2022-04-09 16:41 | P.PN ---
Subjective Progress Note Date: 04/09/22 Principal diagnosis: Right lower extremity cellulitis Patient is a 72-year-old female with multiple comorbidities including recent diagnosis of COVID-19 and atrial fibrillation presented to hospital with increasing shortness of breath patient also noticed to have some superficial ulceration to the right leg and cellulitis local cultures have been obtained which is growing MSSA patient did have a penicillin allergy as a child did not recall the type of reaction. On today's evaluation that is 04/09/2022, the patient denies having any fever or any chills, the patient is breathing slightly comfortably no chest pain or shortness with occasional cough patient pain discomfort to the right leg has decreased in intensity Objective - Vital Signs Vital signs: Vital Signs Temp 98.1 F 04/09/22 12:00 Pulse 101 H 04/09/22 12:00 Resp 18 04/09/22 12:00 BP 110/65 04/09/22 12:00 Pulse Ox 95 04/09/22 12:00 FiO2 Intake & Output 04/08/22 04/09/22 04/09/22 18:59 06:59 18:59 Intake Total 1040 950 240 Output Total 2050 1400 800 Balance -1010 -450 -560 Weight 157 kg Intake: IV 500 240 Vancomycin 2,250 mg In 500 240 Sodium Chloride 0.9% 500 ml 500 ml @ 167 mls/hr IVPB ONCE STA Rx#: [id number] Intake, IV Titration 200 Amount Magnesium Sulfate-D5w Pmx 200 1 gm In Dextrose/Water 1 100ml.bag @ 100 mls/hr IVPB Q1H [facility] Rx#: [id number] Oral 840 450 Output: Urine 2049 1400 800 Other: Voiding Method External Catheter External Catheter External Catheter - Exam GENERAL DESCRIPTION: Elderly female lying in bed, no distress. No tachypnea or accessory muscle of respiration use. LUNGS: Unlabored breathing. Decreased breath sound the base HEART: S1, S2, regular rate and rhythm. No loud murmur ABDOMEN: Soft, no tenderness , guarding or rigidity, no organomegaly EXTREMITIES: Right lower extremity is currently dressed and Jam wrap no drainage on the dressing - Labs CBC & Chem 7: 04/09/22 05:23 04/09/22 05:23 Labs: Abnormal Lab Results - Last 24 Hours (Table) 04/08/22 04/08/22 04/08/22 Range/Units 16:55 20:41 22:33 RBC (3.80-5.40) m/uL Hgb (11.4-16.0) gm/dL Hct (34.0-46.0) % MCHC (31.0-37.0) g/dL RDW (11.5-15.5) % Sodium (137-145) mmol/L Chloride (98-107) mmol/L Carbon Dioxide (22-30) mmol/L BUN (7-17) mg/dL Creatinine (0.52-1.04) mg/dL Glucose (74-99) mg/dL POC Glucose (mg/dL) 182 H 192 H 192 H (70-110) mg/dL 04/09/22 04/09/22 04/09/22 Range/Units 05:23 05:23 06:40 RBC 2.73 L (3.80-5.40) m/uL Hgb 7.6 L (11.4-16.0) gm/dL Hct 25.3 L (34.0-46.0) % MCHC 29.9 L (31.0-37.0) g/dL RDW 17.4 H (11.5-15.5) % Sodium 136 L (137-145) mmol/L Chloride 93 L (98-107) mmol/L Carbon Dioxide 34 H (22-30) mmol/L BUN 34 H (7-17) mg/dL Creatinine 1.07 H (0.52-1.04) mg/dL Glucose 150 H (74-99) mg/dL POC Glucose (mg/dL) 166 H (70-110) mg/dL 04/09/22 04/09/22 Range/Units 07:53 12:04 RBC (3.80-5.40) m/uL Hgb (11.4-16.0) gm/dL Hct (34.0-46.0) % MCHC (31.0-37.0) g/dL RDW (11.5-15.5) % Sodium (137-145) mmol/L Chloride (98-107) mmol/L Carbon Dioxide (22-30) mmol/L BUN (7-17) mg/dL Creatinine (0.52-1.04) mg/dL Glucose (74-99) mg/dL POC Glucose (mg/dL) 179 H 362 H (70-110) mg/dL Microbiology - Last 24 Hours (Table) 04/07/22 01:30 Anaerobic Culture - Preliminary Leg - Right 04/07/22 01:30 Gram Stain - Final Leg - Right Wound Culture - Final Staphylococcus aureus 04/06/22 14:15 Blood Culture - Preliminary Blood No Growth after 48 hours 04/06/22 14:00 Blood Culture - Preliminary Blood No Growth after 48 hours Assessment and Plan (1) Cellulitis of right leg Current Visit: Yes Status: Acute Code(s): L03.115 - CELLULITIS OF RIGHT LOWER LIMB SNOMED Code(s): 735095404 Plan: 1patient with a left lower extremity cellulitis with diffuse swelling redness and some superficial ulceration minimal drainage with a culture currently showing a staph for his in this patient with a recent admission to the hospital and will need for 4 possible pneumonia site with a likely pathogen while waiting for the culture to finalize. 2Patient to continue withAce wrap to the leg from just above the toe to below the knee. 4Local culture has been finalized with MSSA patient did have a history of penicillin allergy as a child will be safe to use cefazolin the patient be started on cefazolin 2 g every 8 hours and will monitor clinical course closely Time with Patient: Less than 30
[2022-04-09 17:34] LABS: Glucose,Whole Blood 350 mg/dL (70-110)
[2022-04-09] MEDS ORDERED: VANCOMYCIN 2,500 MG in SODIUM CHLORIDE 0.9% 500 ML 500 ML IVPB SCH (20:00)
[2022-04-09 21:06] LABS: Glucose,Whole Blood 277 mg/dL (70-110)
[2022-04-09] MEDS: ATORVASTATIN 40 MG TAB PO SCH (21:36)
[2022-04-10] MEDS ORDERED: VANCOMYCIN 2,250 MG in SODIUM CHLORIDE 0.9% 500 ML 500 ML IVPB SCH ×2
[2022-04-10] MEDS: LEVOTHYROXINE 50 MCG TAB PO SCH (05:56)
[2022-04-10 06:51] LABS: Glucose,Whole Blood 214 mg/dL (70-110)
[2022-04-10 07:00] LABS: African American GFR (CKD) 62 (>60 ml/min/1.73 sqM); Anion Gap 8 mmol/L; Blood Urea Nitrogen 34 mg/dL (7-17); Calcium 8.5 mg/dL (8.4-10.2); Carbon Dioxide 35 mmol/L (22-30); Chloride 92 mmol/L (98-107); Glucose 184 mg/dL (74-99); Non-African American GFR(CKD) 54 (>60 ml/min/1.73 sqM); Sodium 135 mmol/L (137-145)
[2022-04-10] MEDS: INSULIN ASPART (NovoLOG) 100 UNIT/ML VIAL SQ SCH ×4 (07:43→12:24)
[2022-04-10] MEDS: METOPROLOL TARTRATE 50 MG TAB PO SCH (09:18)
[2022-04-10] MEDS: GABAPENTIN 300 MG CAP PO SCH (09:18)
[2022-04-10] MEDS: POTASSIUM CHLORIDE ER 20 MEQ TAB.ER PO SCH (09:18)
[2022-04-10] MEDS: ISOSORBIDE MONONITRATE ER 30 MG TAB.ER.24H PO SCH (09:18)
[2022-04-10] MEDS: SERTRALINE 100 MG TAB PO SCH (09:18)
[2022-04-10] MEDS: FUROSEMIDE 10 MG/ML 4 ML VIAL IV SCH (09:19)
[2022-04-10] MEDS: OXYBUTYNIN CHLORIDE 5 MG TAB PO SCH (09:19)
[2022-04-10] MEDS: APIXABAN 5 MG TAB PO SCH (09:19)
[2022-04-10 11:07] LABS: Anisocytosis Slight; Basophils % (A) 0 %; Eosinophils # (A) 0.2 k/uL (0-0.7); Eosinophils % (A) 2 %; HCT 24.5 % (34.0-46.0); HGB 7.3 gm/dL (11.4-16.0); Hypochromasia Marked; Lymphocytes # (A) 0.5 k/uL (1.0-4.8); Lymphocytes % (A) 6 %; MCH 27.6 pg (25.0-35.0); MCHC 29.9 g/dL (31.0-37.0); MCV 92.1 fL (80.0-100.0); Mean Platelet Volume 8.9; Monocytes # (A) 0.5 k/uL (0-1.0); Monocytes % (A) 6 %; Neutrophils # (A) 6.1 k/uL (1.3-7.7); Neutrophils % (A) 83 %; Platelet Count 188 k/uL (150-450); RBC 2.65 m/uL (3.80-5.40); RDW 17.2 % (11.5-15.5); WBC 7.3 k/uL (3.8-10.6)
[2022-04-10] MEDS ORDERED: INSULIN DETEMIR (LEVEMIR) 100 UNIT/ML SYR SQ SCH (11:30)
[2022-04-10 11:46] LABS: Glucose,Whole Blood 266 mg/dL (70-110)
--- NOTE | 2022-04-10 12:02 | P.PN ---
Subjective Progress Note Date: 04/10/22 This is a pleasant 72-year-old morbidly obese female patient with a known history of hypertension, depression/anxiety, hypothyroidism, chronic atrial fibrillation maintained on Eliquis, recent COVID-19 infection in January 2022 requiring home oxygen at 2 L/m per nasal cannula, diabetes mellitus, diabetic neuropathy, chronic lower extremity edema/cellulitis. She represented here yesterday with complaints of increasing shortness of breath has been resting over the past several days. EKG revealed atrial fibrillation with a right bundle-branch block. Chest x-ray reveals multifocal diffuse patchy airspace opacities increased from previous concerning for multifocal pneumonia/fluid volume overload. There is small bilateral pleural effusions with pulmonary vascular congestion. CT angiogram ruled out pulmonary embolism. Small left and small moderate right pleural effusions with diffuse multifocal groundglass opacities consistent with previous COVID-19 infection and possible pulmonary edema. Doppler of the bilateral lower extremities were negative for DVT. White count 11.1. Hemoglobin 6.4. Platelets 152. Sodium 137. Potassium 4.9. BUN 30. Creatinine 1.08. Glucose 139. Hemoglobin A1c 6.6. Troponin 0.099. ProBNP 6730. She was initiated on Lasix 40 mg IV every 12 hours. Anticoagulat ed with Eliquis. She did receive 1 unit of packed red blood cells. Follow-up hemoglobin pending. Reevaluated today on 04/08/22, patient remains in the ICU, feeling better today, she is down to 3 L nasal cannula. Patient is dropping her hemoglobin however she had negative Hemoccult stool on admission. She did receive 2 units of packed RBCs since admission, and her hemoglobin today is 7.2. Her eliquis was on hold but restarted today. Patient is feeling better clinically, less short of breath, and on physical examinations he seems to have less crackles at the bases bilaterally. WBC count is 8.5 hemoglobin is 7.2 electrolytes are normal renal profile is normal creatinine 1.13. Echocardiogram showed no evidence of LV dysfunction, there was concentric LVH and mitral valve calcification with aortic valve sclerosis no pericardial effusion there is evidence of moderate pulmonary hypertension. Reevaluated today on 04/09/22, patient remains in the ICU, she is presently overflow, she is on 2 L nasal cannula, she is not requiring any drips, hemoglobin is holding at 7.6. Patient remains on diuretics. On eliquis, on cefazolin, she is also on Lasix 40 mg every 12 hours, patient is gradually improving, and pulmonary status seems to be steadily better. WBC count today is 9.5 hemoglobin is 7.6 electrolytes are normal renal profile showed a BUN of 34 creatinine 1.07. The patient is seen today 04/10/2022 in follow-up on the regular medical floor. She is currently sitting up at the bedside. Awake and alert in no acute distress. She is maintaining O2 saturations in the 90s on 2 L/m per nasal cannula. No worsening shortness of breath, cough or congestion. Follow up chest x-ray reveals significant improvement. She is continued on diuretics. Anticoagulated with Eliquis. White count 7.3. Hemoglobin 7.3. Sodium 135. Potassium 4.0. Bicarb 35. BUN 34. Creatinine 1.03. Glucose 184. Objective - Vital Signs Vital signs: Vital Signs Temp 97.8 F 04/10/22 07:18 Pulse 91 04/10/22 07:18 Resp 12 04/10/22 07:18 BP 135/65 04/10/22 07:18 Pulse Ox 93 L 04/10/22 07:18 FiO2 Intake & Output 04/09/22 04/10/22 04/10/22 18:59 06:59 18:59 Intake Total 240 Output Total 1300 700 Balance -1060 -700 Weight 151.5 kg Intake: IV 240 Vancomycin 2,250 mg In 240 Sodium Chloride 0.9% 500 ml 500 ml @ 167 mls/hr IVPB ONCE STA Rx#: [id number] Output: Urine 1300 700 Other: Voiding Method External Catheter External Catheter - Exam GENERAL EXAM: Alert, doesn't, morbidly obese 72-year-old female, 2 L nasal cannula, comfortable in no apparent distress. HEAD: Normocephalic. EYES: Normal reaction of pupils, equal size. NOSE: Clear with pink turbinates. THROAT: No erythema or exudates. NECK: No masses, no JVD. CHEST: No chest wall deformity. LUNGS: Equal air entry with faint crackles in the posterior bases. CVS: S1 and S2 normal with no audible murmur, regular rhythm. ABDOMEN: No hepatosplenomegaly, normal bowel sounds, no guarding or rigidity. SPINE: No scoliosis or deformity SKIN: No rashes CENTRAL NERVOUS SYSTEM: No focal deficits, tone is normal in all 4 extremities. EXTREMITIES: There is trace peripheral edema. No clubbing, no cyanosis. Peripheral pulses are intact. - Labs CBC & Chem 7: 04/10/22 06:14 04/10/22 06:14 Labs: Abnormal Lab Results - Last 24 Hours (Table) 04/06/22 04/09/22 04/09/22 Range/Units 20:11 12:04 16:24 RBC (3.80-5.40) m/uL Hgb (11.4-16.0) gm/dL Hct (34.0-46.0) % MCHC (31.0-37.0) g/dL RDW (11.5-15.5) % Lymphocytes # (1.0-4.8) k/uL Sodium (137-145) mmol/L Chloride (98-107) mmol/L Carbon Dioxide (22-30) mmol/L BUN (7-17) mg/dL Glucose (74-99) mg/dL POC Glucose (mg/dL) 362 H 341 H (70-110) mg/dL Crossmatch See Detail 04/09/22 04/09/22 04/10/22 Range/Units 17:32 21:02 06:14 RBC (3.80-5.40) m/uL Hgb (11.4-16.0) gm/dL Hct (34.0-46.0) % MCHC (31.0-37.0) g/dL RDW (11.5-15.5) % Lymphocytes # (1.0-4.8) k/uL Sodium 135 L (137-145) mmol/L Chloride 92 L (98-107) mmol/L Carbon Dioxide 35 H (22-30) mmol/L BUN 34 H (7-17) mg/dL Glucose 184 H (74-99) mg/dL POC Glucose (mg/dL) 350 H 277 H (70-110) mg/dL Crossmatch 04/10/22 04/10/22 04/10/22 Range/Units 06:14 06:49 11:45 RBC 2.65 L (3.80-5.40) m/uL Hgb 7.3 L (11.4-16.0) gm/dL Hct 24.5 L (34.0-46.0) % MCHC 29.9 L (31.0-37.0) g/dL RDW 17.2 H (11.5-15.5) % Lymphocytes # 0.5 L (1.0-4.8) k/uL Sodium (137-145) mmol/L Chloride (98-107) mmol/L Carbon Dioxide (22-30) mmol/L BUN (7-17) mg/dL Glucose (74-99) mg/dL POC Glucose (mg/dL) 214 H 266 H (70-110) mg/dL Crossmatch Microbiology - Last 24 Hours (Table) 04/06/22 14:15 Blood Culture - Preliminary Blood No Growth after 72 hours 04/06/22 14:00 Blood Culture - Preliminary Blood No Growth after 72 hours 04/07/22 01:30 Anaerobic Culture - Preliminary Leg - Right 04/07/22 01:30 Gram Stain - Final Leg - Right Wound Culture - Final Staphylococcus aureus Assessment and Plan Assessment: Acute on chronic hypoxic respiratory failure secondary to suspected pulmonary edema and/or chronic ongoing changes of COVID-19 infection, atrial fibrillation, anemia and follow-up chest x-ray showed significant improvement and down to 2 L nasal cannula Acute anemia hemoglobin of 6.4, received 2 unit of packed red blood cells, current hemoglobin 7.3 Atrial fibrillation, anticoagulated with Eliquis, previously on amiodarone Recent COVID-19 infection with hypoxemia requiring home oxygen in January 2022. Not vaccinated Chronic venous stasis of the lower extremities with suspected cellulitis Morbid obesity with a BMI of 64 Obesity/hypoventilation syndrome Preserved left ventricular systolic function, suspect diastolic dysfunction. Diabetes mellitus Diabetic neuropathy Hyperlipidemia Hypertension Obstructive sleep apnea, not on CPAP Hypothyroidism Chronic kidney disease stage III Depression Nonsmoker Plan: The patient was seen and evaluated Chest x-ray, labs, medications reviewed X-ray showing significant improvement Continue diuretics She is cleared for discharge from the pulmonary and critical care standpoint I have personally seen and examined the patient, performed the documentation and the assessment and plan as written. Number of minutes spent on the visit: 10.
--- NOTE | 2022-04-10 12:05 | P.DS ---
Providers Date of admission: 04/06/22 14:19 Expected date of discharge: 04/10/22 Attending physician: Marcelino Cruz Consults: 04/06/22 14:18 Consult Physician Routine Consulting Provider: Jerry Lainez Consult Reason/Comments: pneumonia/chf Do you want consulting provider notified?: Yes Consult Physician Routine Consulting Provider: Gus Pascal Consult Reason/Comments: chf Do you want consulting provider notified?: Yes 04/06/22 17:09 Consult Physician Routine Consulting Provider: Gordon Lance Consult Reason/Comments: afib Do you want consulting provider notified?: Yes 04/08/22 09:53 Consult Physician Routine Consulting Provider: Ramiro Ellington Consult Reason/Comments: Leg wound Do you want consulting provider notified?: Yes Primary care physician: [facility] Course: Final Diagnoses: Acute congestive heart failure, diastolic dysfunction Recent COVID-19 pneumonia January 2022 with chronic fibrotic changes secondary to the Covid infection as per pulmonary Acute on chronic anemia, initial Hemoccult stool test negative, status post transfusion of RBCs Acute on chronic hypoxic respiratory failure, secondary to all the above, wears 2.5 L NC O2 at home Moderate pulmonary hypertension Bilateral lower extremity cellulitis, MSSA Chronic atrial fibrillation, newly diagnosed on prior visit, January 2022 CAD, history of CABG Hypertension hyperlipidemia Diabetes mellitus Hypothyroidism History of bariatric surgery Morbid obesity, BMI 63.2 Hospital course:This is a 72-year-old female admitted with acute on chronic hypoxic respiratory failure, multifactorial, wears 2.5 L nasal cannula O2 at home. Currently maintaining O2 sats in the 90s on 3 L nasal cannula. Received 2 units total packed RBCs with current hemoglobin 7.2, Hemoccult stool negative on admission. Echo reported EF around 50%, concentric LVH-moderate degree, moderate pulmonary hypertension . Diuresing well on IV push diuretics with 24- hour I&O reflecting a negative fluid balance .Anticoagulation with Eliquis resumed. Denies any bleeding, denies rectal bleeding. Renal function stable, creatinine 1.13. Bilateral lower extremity cellulitis with wound cultures reporting presumptive staph aureus, afebrile, normal WBC. Infectious disease consulted. Significant clinical improvement. Maintaining O2 sats of 90s to 100% on 3 L nasal cannula. T-max 99, WBC 7.3, hemoglobin 7.3, platelets 188, BUN 34, creatinine 1.03. Patient will be discharged to [facility] today pending final DC recommendations and clearance per pulmonary and infectious disease. The impression and plan of care has been dictated as directed. : I performed a history and examination of this patient, discussed the same with the dictator. I agree with the dictator's note ,documented as a scribe. Any additional findings or plans will be noted. Microbiology 04/06/22 14:15 Blood Blood Culture - Preliminary No Growth after 72 hours 04/06/22 14:00 Blood Blood Culture - Preliminary No Growth after 72 hours 04/07/22 01:30 Leg - Right Anaerobic Culture - Preliminary 04/07/22 01:30 Leg - Right Gram Stain - Final 04/07/22 01:30 Leg - Right Wound Culture - Final Staphylococcus aureus Patient Condition at Discharge: Stable Plan - Discharge Summary Discharge Rx Participant: No New Discharge Prescriptions: New INSULIN ASPART (NovoLOG) [NovoLOG (formulary)] 0 unit SQ ACHS each Metoprolol Tartrate [Lopressor] 50 mg PO TID tab INSULIN ASPART (NovoLOG) [NovoLOG (formulary)] 5 unit SQ AC-TID each Mirtazapine [Remeron] 15 mg PO HS tab Continue Atorvastatin [Lipitor] 40 mg PO DAILY Levothyroxine Sodium [Tirosint] 50 mcg PO DAILY Isosorbide Mononitrate [Isosorbide Mononitrate ER] 30 mg PO DAILY Potassium Chloride [Klor-Con 10 ER] 20 meq PO DAILY Oxybutynin Chloride 5 mg PO BID Apixaban [Eliquis] 5 mg PO BID #60 tab Mupirocin 2% Oint [Bactroban 2% Oint] 1 applic TOPICAL BID Nystatin 100,000Unit/gm Cream [Mycostatin Cream] 1 applic TOPICAL BID Gabapentin [Neurontin] 300 mg PO BID #6 cap Changed Furosemide [Lasix] 40 mg PO DAILY #0 Discontinued Insulin Detemir (Levemir) [Levemir] 60 unit SQ BID Aspirin 81 mg PO DAILY Sertraline [Zoloft] 100 mg PO BID Amiodarone HCl [Pacerone] 200 mg PO DAILY Metoprolol Tartrate [Lopressor] 50 mg PO DAILY INSULIN ASPART (NovoLOG) [NovoLOG (formulary)] 40 unit SQ BID PRN PRN Reason: hold if AC is <120 Discharge Medication List Atorvastatin [Lipitor] 40 mg PO DAILY 08/10/16 [History] Isosorbide Mononitrate [Isosorbide Mononitrate ER] 30 mg PO DAILY 08/10/16 [History] Levothyroxine Sodium [Tirosint] 50 mcg PO DAILY 08/10/16 [History] Oxybutynin Chloride 5 mg PO BID 08/10/16 [History] Potassium Chloride [Klor-Con 10 ER] 20 meq PO DAILY 08/10/16 [History] Apixaban [Eliquis] 5 mg PO BID #60 tab 02/16/22 [Rx] Mupirocin 2% Oint [Bactroban 2% Oint] 1 applic TOPICAL BID 04/06/22 [History] Nystatin 100,000Unit/gm Cream [Mycostatin Cream] 1 applic TOPICAL BID 04/06/22 [History] Furosemide [Lasix] 40 mg PO DAILY #0 04/10/22 [Rx] Gabapentin [Neurontin] 300 mg PO BID #6 cap 04/10/22 [Rx] INSULIN ASPART (NovoLOG) [NovoLOG (formulary)] 0 unit SQ ACHS each 04/10/22 [Rx] INSULIN ASPART (NovoLOG) [NovoLOG (formulary)] 5 unit SQ AC-TID each 04/10/22 [Rx] Metoprolol Tartrate [Lopressor] 50 mg PO TID tab 04/10/22 [Rx] Mirtazapine [Remeron] 15 mg PO HS tab 04/10/22 [Rx] Follow up Appointment(s)/Referral(s): Maik Jama MD [STAFF PHYSICIAN] - 1 Week Activity/Diet/Wound Care/Special Instructions: Pierce DALE, BMP in 3 days Accu-Cheks before meals and at bedtime Consistent carb diet Discharge Disposition: TRANSFER TO SNF/ECF
--- NOTE | 2022-04-10 12:14 | XR ---
EXAMINATION TYPE: XR chest 1V portable DATE OF EXAM: 04/10/2022 COMPARISON: 04/07/2022 HISTORY: Shortness of breath TECHNIQUE: Single frontal view of the chest is obtained. FINDINGS: Heart is enlarged. Postoperative change with diffuse interstitial pattern bilateral consol idation and small effusion. Arthropathy of the shoulders. IMPRESSION: Stable pleural parenchymal changes correlate for CHF otherwise consider diffuse pneumoni a.
--- NOTE | 2022-04-10 13:14 | P.PN ---
Subjective This is a 72-year-old female past medical history of coronary artery disease status post prior 2 vessel bypass in 1996, hypertension, dyslipidemia, morbid obesity, type 2 diabetes, persistent atrial fibrillation on Eliquis. She follows with Dr. Weller. We have been following the patient secondary to atrial fibrillation and congestive heart failure. Patient seen and examined at bedside, no acute distress. She states her breathing has improved. She continues to be in atrial fibrillation with controlled ventricular response. Overall she is feeling well. Blood pressure 135/65, afebrile, 97% on 3 L nasal cannula Echocardiogram revealed EF of 50%, mild aortic regurgitation, mild aortic stenosis with peak gradient of 25 and a mean gradient of 14 mmHg, severe tricuspid regurgitation, moderate pulmonary hypertension. GENERAL: Well-appearing, and in no acute distress. NECK: Supple without JVD LUNGS: Breath sounds fine crackles in the bases to auscultation bilaterally. Respiration equal and unlabored. HEART: Irregular rate and rhythm without murmurs, rubs or gallops. S1 and S2 heard. EXTREMITIES: Normal range of motion, no edema. No clubbing or cyanosis. Peripheral pulses intact. ASSESSMENT Acute on chronic heart failure with preserved ejection fraction Mild aortic stenosis Persistent atrial fibrillation, on Eliquis Coronary artery disease with prior 2 vessel bypass in 1996 Morbid obesity Hypertension Dyslipidemia Type 2 diabetes PLAN Patient stable for discharge from a cardiac standpoint. Recommend transitioning to Lasix 40 mg PO BID Continue home atorvastatin, Imdur, metoprolol tartrate and anticoagulation with Eliquis Follow up outpatient with Dr. Weller. Nurse Practitioner note has been reviewed, I agree with a documented findings and plan of care. Patient was seen and examined. Objective - Vital Signs Vital signs: Vital Signs Temp 97.8 F 04/10/22 07:18 Pulse 91 04/10/22 07:18 Resp 12 04/10/22 07:18 BP 135/65 04/10/22 07:18 Pulse Ox 93 L 04/10/22 07:18 FiO2 Intake & Output 04/09/22 04/10/22 04/10/22 18:59 06:59 18:59 Intake Total 240 Output Total 1300 700 Balance -1060 -700 Weight 151.5 kg Intake: IV 240 Vancomycin 2,250 mg In 240 Sodium Chloride 0.9% 500 ml 500 ml @ 167 mls/hr IVPB ONCE STA Rx#: [id number] Output: Urine 1300 700 Other: Voiding Method External Catheter External Catheter - Labs CBC & Chem 7: 04/10/22 06:14 04/10/22 06:14 Labs: Abnormal Lab Results - Last 24 Hours (Table) 04/06/22 04/09/22 04/09/22 Range/Units 20:11 12:04 16:24 Sodium (137-145) mmol/L Chloride (98-107) mmol/L Carbon Dioxide (22-30) mmol/L BUN (7-17) mg/dL Glucose (74-99) mg/dL POC Glucose (mg/dL) 362 H 341 H (70-110) mg/dL Crossmatch See Detail 04/09/22 04/09/22 04/10/22 Range/Units 17:32 21:02 06:14 Sodium 135 L (137-145) mmol/L Chloride 92 L (98-107) mmol/L Carbon Dioxide 35 H (22-30) mmol/L BUN 34 H (7-17) mg/dL Glucose 184 H (74-99) mg/dL POC Glucose (mg/dL) 350 H 277 H (70-110) mg/dL Crossmatch 04/10/22 Range/Units 06:49 Sodium (137-145) mmol/L Chloride (98-107) mmol/L Carbon Dioxide (22-30) mmol/L BUN (7-17) mg/dL Glucose (74-99) mg/dL POC Glucose (mg/dL) 214 H (70-110) mg/dL Crossmatch Microbiology - Last 24 Hours (Table) 04/06/22 14:15 Blood Culture - Preliminary Blood No Growth after 72 hours 04/06/22 14:00 Blood Culture - Preliminary Blood No Growth after 72 hours 04/07/22 01:30 Anaerobic Culture - Preliminary Leg - Right 04/07/22 01:30 Gram Stain - Final Leg - Right Wound Culture - Final Staphylococcus aureus
[2022-04-10 13:24] VITALS: BP 131/69; PULSE 86; RESP 14; TEMP 98.1
--- NOTE | 2022-04-10 15:19 | P.PN ---
Subjective Progress Note Date: 04/09/22 This is a 72-year-old female admitted with acute on chronic hypoxic respiratory failure, multifactorial, wears 2.5 L nasal cannula O2 at home. Currently maintaining O2 sats in the 90s on 3 L nasal cannula. Received 2 units total packed RBCs with current hemoglobin 7.2, Hemoccult stool negative on admission. Echo reported EF around 50%, concentric LVH-moderate degree, moderate pulmonary hypertension . Diuresing well on IV push diuretics with 24-hour I&O reflecting a negative fluid balance .Anticoagulation with Eliquis resumed. Denies any bleeding, denies rectal bleeding. Renal function stable, creatinine 1.13. Bilateral lower extremity cellulitis with wound cultures reporting presumptive staph aureus, afebrile, normal WBC. Infectious disease consulted. 04/09/2022 hemoglobin stable at 7.6, maintaining O2 sats in the 90s on 2 L nasal cannula. Diuresing well on Lasix IV push. Continues on IV vancomycin for culture reporting presumptive staph. Renal function stable. Denies chest pain, palpitations or shortness of breath. Objective - Vital Signs Vital signs: Vital Signs Temp 98.1 F 04/09/22 12:00 Pulse 101 H 04/09/22 12:00 Resp 18 04/09/22 12:00 BP 110/65 04/09/22 12:00 Pulse Ox 95 04/09/22 13:49 FiO2 Intake & Output 04/08/22 04/09/22 04/09/22 18:59 06:59 18:59 Intake Total 1040 950 240 Output Total 2049 1400 800 Balance -1010 -450 -560 Weight 157 kg Intake: IV 500 240 Vancomycin 2,250 mg In 500 240 Sodium Chloride 0.9% 500 ml 500 ml @ 167 mls/hr IVPB ONCE STA Rx#: [id number] Intake, IV Titration 200 Amount Magnesium Sulfate-D5w Pmx 200 1 gm In Dextrose/Water 1 100ml.bag @ 100 mls/hr IVPB Q1H [facility] Rx#: [id number] Oral 840 450 Output: Urine 0 1400 800 Other: Voiding Method External Catheter External Catheter External Catheter - Exam PHYSICAL EXAM: VITAL SIGNS: [As above] GENERAL: Alert and oriented 3, Sitting up in chair,no acute distress, teary- eyed, depressed. HEENT: Conjunctivae normal. eyes normal. Oral mucosa moist NECK: Supple, No JVD. CARDIOVASCULAR: S1, S2 regular. Systolic murmur RESPIRATION: Bilateral air entry, fine bibasilar crackles ABDOMEN: Soft, obese, nontender . No guarding. no masses palpable. Bowel sounds heard. LEGS: Chronic venous stasis with bilateral lower extremity edema, right lower extremity Jam wrapped ,no clubbing, no cyanosis. NERVOUS SYSTEM: Cranial N 2-12 grossly normal. No focal deficits. Skin: Warm and dry, no rash. - Labs CBC & Chem 7: 04/10/22 06:14 04/10/22 06:14 Labs: Abnormal Lab Results - Last 24 Hours (Table) 04/08/22 04/08/22 04/08/22 Range/Units 16:55 20:41 22:33 RBC (3.80-5.40) m/uL Hgb (11.4-16.0) gm/dL Hct (34.0-46.0) % MCHC (31.0-37.0) g/dL RDW (11.5-15.5) % Sodium (137-145) mmol/L Chloride (98-107) mmol/L Carbon Dioxide (22-30) mmol/L BUN (7-17) mg/dL Creatinine (0.52-1.04) mg/dL Glucose (74-99) mg/dL POC Glucose (mg/dL) 182 H 192 H 192 H (70-110) mg/dL 04/09/22 04/09/22 04/09/22 Range/Units 05:23 05:23 06:40 RBC 2.73 L (3.80-5.40) m/uL Hgb 7.6 L (11.4-16.0) gm/dL Hct 25.3 L (34.0-46.0) % MCHC 29.9 L (31.0-37.0) g/dL RDW 17.4 H (11.5-15.5) % Sodium 136 L (137-145) mmol/L Chloride 93 L (98-107) mmol/L Carbon Dioxide 34 H (22-30) mmol/L BUN 34 H (7-17) mg/dL Creatinine 1.07 H (0.52-1.04) mg/dL Glucose 150 H (74-99) mg/dL POC Glucose (mg/dL) 166 H (70-110) mg/dL 04/09/22 04/09/22 Range/Units 07:53 12:04 RBC (3.80-5.40) m/uL Hgb (11.4-16.0) gm/dL Hct (34.0-46.0) % MCHC (31.0-37.0) g/dL RDW (11.5-15.5) % Sodium (137-145) mmol/L Chloride (98-107) mmol/L Carbon Dioxide (22-30) mmol/L BUN (7-17) mg/dL Creatinine (0.52-1.04) mg/dL Glucose (74-99) mg/dL POC Glucose (mg/dL) 179 H 362 H (70-110) mg/dL Microbiology - Last 24 Hours (Table) 04/07/22 01:30 Anaerobic Culture - Preliminary Leg - Right 04/07/22 01:30 Gram Stain - Final Leg - Right Wound Culture - Final Staphylococcus aureus 04/06/22 14:15 Blood Culture - Preliminary Blood No Growth after 48 hours 04/06/22 14:00 Blood Culture - Preliminary Blood No Growth after 48 hours Assessment and Plan Assessment: Acute congestive heart failure, diastolic dysfunction Recent COVID-19 pneumonia January 2022 with chronic fibrotic changes secondary to the Covid infection as per pulmonary Acute on chronic anemia, initial Hemoccult stool test negative, status post transfusion of RBCs Acute on chronic hypoxic respiratory failure, secondary to all the above, wears 2.5 L NC O2 at home Moderate pulmonary hypertension Bilateral lower extremity cellulitis, preliminary wound cultures reporting presumptive staph aureus Chronic atrial fibrillation, newly diagnosed on prior visit, January 2022, anticoagulated on eliquis CAD, history of CABG Hypertension hyperlipidemia Diabetes mellitus Hypothyroidism History of bariatric surgery Morbid obesity, BMI 63.2 Depression, switched from Zoloft which patient states has been on for a long time and not working for her, to Remeron, as per PCP. Plan: Continue on current medication regime ,monitoring and symptomatic treatment. Wound care. Antibiotics as per Infectious disease. Discharge planning in progress for tomorrow to subacute rehab. The impression and plan of care has been dictated as directed. : I performed a history and examination of this patient, discussed the same with the dictator. I agree with the dictator's note ,documented as a scribe. Any additional findings or plans will be noted.
[2022-04-10] MEDS ORDERED: FUROSEMIDE 40 MG TAB PO SCH (16:00)
[2022-04-10] MEDS ORDERED: MIRTAZAPINE 15 MG TAB PO SCH (21:00)
== END 2022-04-10 15:58 | DRG 291 ==
LOC: EC 11:34 → 3SCARD 14:19 → 2SICU 22:49 → 4SSUR 04-09 17:30
PROVIDERS: ADMIT Family Medicine; ATTEND Family Medicine
PROC: 30233N1 Transfusion of Nonautologous Red Blood Cells into Peripheral Vein, Percutaneous Approach (ICD-10-PCS; principal; 2022-04-07)
DX: I13.0 Hypertensive heart and chronic kidney disease with heart failure and stage 1 through stage 4 chronic kidney disease, or unspecified chronic kidney disease (principal); I50.33 Acute on chronic diastolic (congestive) heart failure; J96.21 Acute and chronic respiratory failure with hypoxia; E66.2 Morbid (severe) obesity with alveolar hypoventilation; Z68.44 Body mass index [BMI] 60.0-69.9, adult; I48.19 Other persistent atrial fibrillation; I87.333 Chronic venous hypertension (idiopathic) with ulcer and inflammation of bilateral lower extremity; L97.211 Non-pressure chronic ulcer of right calf limited to breakdown of skin; L03.116 Cellulitis of left lower limb; L03.115 Cellulitis of right lower limb; I27.20 Pulmonary hypertension, unspecified; D63.1 Anemia in chronic kidney disease; E11.36 Type 2 diabetes mellitus with diabetic cataract; E03.9 Hypothyroidism, unspecified; F32.A Depression, unspecified; N18.30 Chronic kidney disease, stage 3 unspecified; I08.2 Rheumatic disorders of both aortic and tricuspid valves; Z99.81 Dependence on supplemental oxygen; J84.10 Pulmonary fibrosis, unspecified; Z95.1 Presence of aortocoronary bypass graft; Z79.01 Long term (current) use of anticoagulants; U09.9 Post COVID-19 condition, unspecified; B95.61 Methicillin susceptible Staphylococcus aureus infection as the cause of diseases classified elsewhere; I25.10 Atherosclerotic heart disease of native coronary artery without angina pectoris; E11.42 Type 2 diabetes mellitus with diabetic polyneuropathy; E11.622 Type 2 diabetes mellitus with other skin ulcer; E78.5 Hyperlipidemia, unspecified; F41.9 Anxiety disorder, unspecified; E11.22 Type 2 diabetes mellitus with diabetic chronic kidney disease; R53.81 Other malaise; M19.90 Unspecified osteoarthritis, unspecified site; G89.29 Other chronic pain; M54.9 Dorsalgia, unspecified; H35.30 Unspecified macular degeneration; R21 Rash and other nonspecific skin eruption; R79.89 Other specified abnormal findings of blood chemistry; D72.829 Elevated white blood cell count, unspecified; H54.7 Unspecified visual loss; Z20.822 Contact with and (suspected) exposure to COVID-19; I87.2 Venous insufficiency (chronic) (peripheral); R77.8 Other specified abnormalities of plasma proteins; R01.1 Cardiac murmur, unspecified; I45.10 Unspecified right bundle-branch block; I87.8 Other specified disorders of veins; R00.0 Tachycardia, unspecified; Z98.84 Bariatric surgery status; Z79.82 Long term (current) use of aspirin; Z79.899 Other long term (current) drug therapy; Z79.4 Long term (current) use of insulin; Z87.01 Personal history of pneumonia (recurrent); Z79.890 Hormone replacement therapy; Z88.0 Allergy status to penicillin; Z88.6 Allergy status to analgesic agent; Z87.440 Personal history of urinary (tract) infections; Z86.19 Personal history of other infectious and parasitic diseases; Z90.710 Acquired absence of both cervix and uterus; Z90.49 Acquired absence of other specified parts of digestive tract; Z83.3 Family history of diabetes mellitus; Z82.49 Family history of ischemic heart disease and other diseases of the circulatory system; Z80.42 Family history of malignant neoplasm of prostate; Z80.8 Family history of malignant neoplasm of other organs or systems; Z91.19 Patient's noncompliance with other medical treatment and regimen
CPT/HCPCS: 36415; 71045; 71046; 71275; 80048; 80053; 82272; 83036; 83605; 83735; 83880; 84145; 84484; 85025; 85027; 85379; 85610; 85730; 86850; 86900; 86901; 86920; 87040; 87070; 87075; 87077; 87186; 87205; 87635; 93005; 93306; 93923; 93970; 94640; 94760; 96365; 96375; 96376; 99285

== ENCOUNTER 2022-04-12 11:08 | Inpatient (IN) | payer MEDICARE, OTHER ==
--- NOTE | 2022-04-12 11:57 | ED ---
General Adult HPI - General Chief complaint: Recheck/Abnormal Lab/Rx Stated complaint: Hypoxia Time Seen by Provider: 04/12/22 11:32 Source: patient, EMS, RN notes reviewed, old records reviewed Mode of arrival: EMS Limitations: no limitations - History of Present Illness Initial comments: Patient is a pleasant 72-year-old female presenting to the emergency department from nursing facility with concern for hypoxia. Onset of symptoms is unclear. Patient states she feels fine and has no complaints. Patient does have history of COPD as well as congestive heart failure. Patient denies cough. Patient denies wearing oxygen at home. No leg pain or leg swelling. No fever or recent illness. - Related Data Home Medications Medication Instructions Recorded Confirmed Atorvastatin [Lipitor] 40 mg PO DAILY 08/10/16 04/06/22 Isosorbide Mononitrate [Isosorbide 30 mg PO DAILY 08/10/16 04/06/22 Mononitrate ER] Levothyroxine Sodium [Tirosint] 50 mcg PO DAILY 08/10/16 04/06/22 Oxybutynin Chloride 5 mg PO BID 08/10/16 04/06/22 Potassium Chloride [Klor-Con 10 ER] 20 meq PO DAILY 08/10/16 04/06/22 Mupirocin 2% Oint [Bactroban 2% 1 applic TOPICAL BID 04/06/22 04/06/22 Oint] Nystatin 100,000Unit/gm Cream 1 applic TOPICAL BID 04/06/22 04/06/22 [Mycostatin Cream] Previous Rx's Medication Instructions Recorded Apixaban [Eliquis] 5 mg PO BID #60 tab 02/16/22 Cephalexin [Keflex] 500 mg PO Q8HR 10 Days #30 cap 04/10/22 Furosemide [Lasix] 40 mg PO BID@0900,1600 tab 04/10/22 Gabapentin [Neurontin] 300 mg PO BID #6 cap 04/10/22 INSULIN ASPART (NovoLOG) [NovoLOG 0 unit SQ ACHS each 04/10/22 (formulary)] INSULIN ASPART (NovoLOG) [NovoLOG 5 unit SQ AC-TID each 04/10/22 (formulary)] Metoprolol Tartrate [Lopressor] 50 mg PO TID tab 04/10/22 Mirtazapine [Remeron] 15 mg PO HS tab 04/10/22 Allergies Allergy/AdvReac Type Severity Reaction Status Date / Time ibuprofen [From Motrin] Allergy Rash/Hives Verified 04/12/22 11:31 Penicillins Allergy Anaphylaxis Verified 04/12/22 11:31 Review of Systems ROS Statement: Those systems with pertinent positive or pertinent negative responses have been documented in the HPI. ROS Other: All systems not noted in ROS Statement are negative. Constitutional: Denies: fever Eyes: Denies: eye pain ENT: Denies: ear pain Respiratory: Reports: as per HPI. Denies: cough, dyspnea Cardiovascular: Denies: chest pain Endocrine: Denies: fatigue Gastrointestinal: Denies: abdominal pain Genitourinary: Denies: dysuria Musculoskeletal: Denies: back pain Skin: Denies: rash Neurological: Denies: weakness Past Medical History Past Medical History: Atrial Fibrillation, Coronary Artery Disease (CAD), Diabetes Mellitus, Eye Disorder, Hyperlipidemia, Hypertension, Osteoarthritis (OA), Pneumonia, Renal Disease, Sleep Apnea/CPAP/BIPAP, Thyroid Disorder Additional Past Medical History / Comment(s): Pt recently admitted to [facility] on 02/12/22 with covic pneumonia/sepsis, acute hypoxic respiratory failure/now on home oxygen ATC, new A fib with RVR. Other hx: IDDM type II, neuropathy bilateral feet, L eye retinal bleed/lasik eye surgery, R eye cataract, bilateral eye macular degeneration/gets injections/poor vision, CKD stage III, anemia, UTI/sepsis, bilateral leg lymphedema/currently has "rash" R lower leg/one spot on L lower leg, FLORES/does not have cpap machine at this time, diverticulitis, gout, chronic back pain, rheumatic fever, hypothyroid. History of Any Multi-Drug Resistant Organisms: None Reported Past Surgical History: Bariatric Surgery, Section, Cholecystectomy, Coronary Bypass/CABG, Heart Catheterization, Hysterectomy, Tonsillectomy Additional Past Surgical History / Comment(s): A 2 vessel CABG in 1996, bilateral carpal tunnel release, lap band, L eye laser surgery, Past Anesthesia/Blood Transfusion Reactions: No Reported Reaction Past Psychological History: Depression Smoking Status: Never smoker Past Alcohol Use History: None Reported Past Drug Use History: None Reported - Past Family History Father Family Medical History: Cancer, Coronary Artery Disease (CAD), Diabetes Mellitus Additional Family Medical History / Comment(s): Prostate cancer Mother Family Medical History: Cancer Additional Family Medical History / Comment(s): Bone cancer. General Exam Limitations: no limitations General appearance: alert, in no apparent distress Head exam: Present: normocephalic Eye exam: Present: normal appearance Neck exam: Present: normal inspection Respiratory exam: Present: normal lung sounds bilaterally. Absent: respiratory distress Cardiovascular Exam: Present: irregular rhythm GI/Abdominal exam: Present: soft. Absent: tenderness Extremities exam: Absent: pedal edema, calf tenderness Neurological exam: Present: alert Psychiatric exam: Present: normal affect, normal mood Skin exam: Present: normal color Course Vital Signs 04/12/22 04/12/22 11:23 13:48 Temperature 99.5 F Pulse Rate 101 H 92 Respiratory 20 18 Rate Blood Pressure 129/65 139/52 O2 Sat by Pulse 98 100 Oximetry EKG Findings - EKG Comments: EKG Findings:: A. fib with rate of 103. QRS 183. QT 392. QTC 452. Bentley indeterminate. Right bundle branch block. Nonspecific ST-T. Procedures - ABG Interpretation Ph: 7.45 PCO2: 59.4 PO2: 36.9 Bicarbonate: 41.9 Medical Decision Making - Medical Decision Making Patient reevaluated and resting comfortably in bed. Family updated on results and plan. Dr. Lewis has been paged from pulmonary. After Evita has been paged for admission covering his patient. Case discussed with Dr. Jama and Dr. Lewis. Patient does have recent COVID-19 infection with fibrosis associated with that along with some associated CHF. There recommends mostly diuresis. - Lab Data Result diagrams: 04/12/22 11:57 04/12/22 11:57 Lab Results 04/12/22 04/12/22 04/12/22 Range/Units 11:57 11:57 11:57 WBC 8.8 (3.8-10.6) k/uL RBC 2.71 L (3.80-5.40) m/uL Hgb 7.5 L (11.4-16.0) gm/dL Hct 24.8 L (34.0-46.0) % MCV 91.6 (80.0-100.0) fL MCH 27.8 (25.0-35.0) pg MCHC 30.3 L (31.0-37.0) g/dL RDW 17.1 H (11.5-15.5) % Plt Count 229 (150-450) k/uL MPV 8.2 Neutrophils % 86 % Lymphocytes % 5 % Monocytes % 5 % Eosinophils % 3 % Basophils % 0 % Neutrophils # 7.5 (1.3-7.7) k/uL Lymphocytes # 0.4 L (1.0-4.8) k/uL Monocytes # 0.4 (0-1.0) k/uL Eosinophils # 0.2 (0-0.7) k/uL Basophils # 0.0 (0-0.2) k/uL Hypochromasia Marked Anisocytosis Slight PT 12.8 H (9.0-12.0) sec INR 1.2 H (<1.2) APTT 22.6 (22.0-30.0) sec D-Dimer 1.55 H (<0.60) mg/L FEU Sample Site ABG pH (7.35-7.45) ABG pCO2 (35-45) mmHg ABG pO2 (83-108) mmHg ABG HCO3 (21-25) mmol/L ABG Total CO2 (19-24) mmol/L ABG O2 Saturation (94-97) % ABG Base Excess mmol/L ABG Hematocrit (34.0-46.0) % Sg Test Hemoglobin (11.4-16.0) gm/dL FiO2 % Sodium 138 (137-145) mmol/L Potassium 4.3 (3.5-5.1) mmol/L Chloride 92 L (98-107) mmol/L Carbon Dioxide 38 H (22-30) mmol/L Anion Gap 8 mmol/L BUN 34 H (7-17) mg/dL Creatinine 0.86 (0.52-1.04) mg/dL Est GFR (CKD-EPI)AfAm 78 (>60 ml/min/1.73 sqM) Est GFR (CKD-EPI)NonAf 68 (>60 ml/min/1.73 sqM) Glucose 255 H (74-99) mg/dL Plasma Lactic Acid Garcia (0.7-2.0) mmol/L Calcium 9.0 (8.4-10.2) mg/dL Total Bilirubin 1.1 (0.2-1.3) mg/dL AST 29 (14-36) U/L ALT 13 (4-34) U/L Alkaline Phosphatase 85 (38-126) U/L Troponin I (0.000-0.034) ng/mL NT-Pro-B Natriuret Pep pg/mL Total Protein 5.9 L (6.3-8.2) g/dL Albumin 2.8 L (3.5-5.0) g/dL Coronavirus (PCR) (Not Detectd) Influenza Type A RNA (Not Detectd) Influenza Type B (PCR) (Not Detectd) 04/12/22 04/12/22 04/12/22 Range/Units 11:57 11:57 11:57 WBC (3.8-10.6) k/uL RBC (3.80-5.40) m/uL Hgb (11.4-16.0) gm/dL Hct (34.0-46.0) % MCV (80.0-100.0) fL MCH (25.0-35.0) pg MCHC (31.0-37.0) g/dL RDW (11.5-15.5) % Plt Count (150-450) k/uL MPV Neutrophils % % Lymphocytes % % Monocytes % % Eosinophils % % Basophils % % Neutrophils # (1.3-7.7) k/uL Lymphocytes # (1.0-4.8) k/uL Monocytes # (0-1.0) k/uL Eosinophils # (0-0.7) k/uL Basophils # (0-0.2) k/uL Hypochromasia Anisocytosis PT (9.0-12.0) sec INR (<1.2) APTT (22.0-30.0) sec D-Dimer (<0.60) mg/L FEU Sample Site ABG pH (7.35-7.45) ABG pCO2 (35-45) mmHg ABG pO2 (83-108) mmHg ABG HCO3 (21-25) mmol/L ABG Total CO2 (19-24) mmol/L ABG O2 Saturation (94-97) % ABG Base Excess mmol/L ABG Hematocrit (34.0-46.0) % Sg Test Hemoglobin (11.4-16.0) gm/dL FiO2 % Sodium (137-145) mmol/L Potassium (3.5-5.1) mmol/L Chloride (98-107) mmol/L Carbon Dioxide (22-30) mmol/L Anion Gap mmol/L BUN (7-17) mg/dL Creatinine (0.52-1.04) mg/dL Est GFR (CKD-EPI)AfAm (>60 ml/min/1.73 sqM) Est GFR (CKD-EPI)NonAf (>60 ml/min/1.73 sqM) Glucose (74-99) mg/dL Plasma Lactic Acid Garcia 1.0 (0.7-2.0) mmol/L Calcium (8.4-10.2) mg/dL Total Bilirubin (0.2-1.3) mg/dL AST (14-36) U/L ALT (4-34) U/L Alkaline Phosphatase (38-126) U/L Troponin I (0.000-0.034) ng/mL NT-Pro-B Natriuret Pep 7280 pg/mL Total Protein (6.3-8.2) g/dL Albumin (3.5-5.0) g/dL Coronavirus (PCR) (Not Detectd) Influenza Type A RNA Not Detected (Not Detectd) Influenza Type B (PCR) Not Detected (Not Detectd) 04/12/22 04/12/22 04/12/22 Range/Units 11:57 11:57 12:28 WBC (3.8-10.6) k/uL RBC (3.80-5.40) m/uL Hgb (11.4-16.0) gm/dL Hct (34.0-46.0) % MCV (80.0-100.0) fL MCH (25.0-35.0) pg MCHC (31.0-37.0) g/dL RDW (11.5-15.5) % Plt Count (150-450) k/uL MPV Neutrophils % % Lymphocytes % % Monocytes % % Eosinophils % % Basophils % % Neutrophils # (1.3-7.7) k/uL Lymphocytes # (1.0-4.8) k/uL Monocytes # (0-1.0) k/uL Eosinophils # (0-0.7) k/uL Basophils # (0-0.2) k/uL Hypochromasia Anisocytosis PT (9.0-12.0) sec INR (<1.2) APTT (22.0-30.0) sec D-Dimer (<0.60) mg/L FEU Sample Site Right Radial ABG pH 7.46 H (7.35-7.45) ABG pCO2 59 H (35-45) mmHg ABG pO2 37 L* (83-108) mmHg ABG HCO3 42 H* (21-25) mmol/L ABG Total CO2 44 H (19-24) mmol/L ABG O2 Saturation 71.7 L (94-97) % ABG Base Excess 18.0 mmol/L ABG Hematocrit 23 L (34.0-46.0) % Gs Test Yes Hemoglobin 7.5 L (11.4-16.0) gm/dL FiO2 21 % Sodium (137-145) mmol/L Potassium (3.5-5.1) mmol/L Chloride (98-107) mmol/L Carbon Dioxide (22-30) mmol/L Anion Gap mmol/L BUN (7-17) mg/dL Creatinine (0.52-1.04) mg/dL Est GFR (CKD-EPI)AfAm (>60 ml/min/1.73 sqM) Est GFR (CKD-EPI)NonAf (>60 ml/min/1.73 sqM) Glucose (74-99) mg/dL Plasma Lactic Acid Garcia (0.7-2.0) mmol/L Calcium (8.4-10.2) mg/dL Total Bilirubin (0.2-1.3) mg/dL AST (14-36) U/L ALT (4-34) U/L Alkaline Phosphatase (38-126) U/L Troponin I 0.025 (0.000-0.034) ng/mL NT-Pro-B Natriuret Pep pg/mL Total Protein (6.3-8.2) g/dL Albumin (3.5-5.0) g/dL Coronavirus (PCR) Not Detected (Not Detectd) Influenza Type A RNA (Not Detectd) Influenza Type B (PCR) (Not Detectd) - Radiology Data Radiology results: report reviewed (CT negative for pulmonary embolism. Groundglass opacities. Cardiomegaly and effusions, CHF), image reviewed (Chest x-ray shows pulmonary congestion and cardiomegaly) Critical Care Time Critical Care Time: Yes Total Critical Care Time: 33 Disposition Clinical Impression: CHF (congestive heart failure), Respiratory failure Disposition: ADMITTED IP TO THIS HOSP Condition: Serious Is patient prescribed a controlled substance at d/c from ED?: No Referrals: Maik Jama MD [Primary Care Provider] - 1-2 days Time of Disposition: 14:22
[2022-04-12 12:11] LABS: Anisocytosis Slight; Basophils % (A) 0 %; Eosinophils # (A) 0.2 k/uL (0-0.7); Eosinophils % (A) 3 %; HCT 24.8 % (34.0-46.0); HGB 7.5 gm/dL (11.4-16.0); Hypochromasia Marked; Lymphocytes # (A) 0.4 k/uL (1.0-4.8); Lymphocytes % (A) 5 %; MCH 27.8 pg (25.0-35.0); MCHC 30.3 g/dL (31.0-37.0); MCV 91.6 fL (80.0-100.0); Mean Platelet Volume 8.2; Monocytes # (A) 0.4 k/uL (0-1.0); Monocytes % (A) 5 %; Neutrophils # (A) 7.5 k/uL (1.3-7.7); Neutrophils % (A) 86 %; Platelet Count 229 k/uL (150-450); RBC 2.71 m/uL (3.80-5.40); RDW 17.1 % (11.5-15.5); WBC 8.8 k/uL (3.8-10.6)
[2022-04-12 12:31] LABS: ABG Oxygen Saturation 71.7 % (94-97); ABG PCO2 59 mmHg (35-45); ABG PH 7.46 (7.35-7.45); ABG TCO2 44 mmol/L (19-24); Allen Test Performed? Yes
[2022-04-12 12:37] LABS: INR 1.2 (<1.2)
[2022-04-12 12:37] LABS: ABG PO2 37 mmHg (83-108)
[2022-04-12 12:38] LABS: ABG HCO3 42 mmol/L (21-25)
[2022-04-12 12:38] LABS: Partial Thromboplastin Time 22.6 sec (22.0-30.0); Prothrombin Time 12.8 sec (9.0-12.0)
[2022-04-12 12:39] LABS: ABG Hematocrit 23 % (34.0-46.0)
[2022-04-12 12:46] LABS: Albumin 2.8 g/dL (3.5-5.0); Potassium 4.3 mmol/L (3.5-5.1); Total Bilirubin 1.1 mg/dL (0.2-1.3); Total Protein 5.9 g/dL (6.3-8.2)
--- NOTE | 2022-04-12 12:57 | XR ---
EXAMINATION TYPE: XR chest 2V DATE OF EXAM: 04/12/2022 12:40 PM COMPARISON: Chest radiographs from 04/10/2022 TECHNIQUE: XR chest 2V Frontal and lateral views of the chest. CLINICAL INDICATION:Female, 72 years old with history of difficulty breathing; FINDINGS: Lungs/Pleura: There is no evidence of pleural effusion, focal consolidation, or pneumothorax. Pulmonary vascularity: Pulmonary vascular congestion. Heart/mediastinum: Cardiomediastinal silhouette is enlarged and stable. Musculoskeletal: No acute osseous pathology. Midline sternotomy wires are noted. IMPRESSION: Cardiomegaly and mild pulmonary vascular congestion. Correlate with BNP for congestive heart failure.
--- NOTE | 2022-04-12 13:28 | CT ---
EXAMINATION TYPE: CT angio chest CT DLP: 780.1 mGycm, Automated exposure control for dose reduction was used. DATE OF EXAM: 04/12/2022 1:17 PM COMPARISON: Chest radiograph from same day. Multiple CTs of the chest with most recent on . CLINICAL INDICATION:Female, 72 years old with history of hypoxia; pe TECHNIQUE/CONTRAST: CTA scan of the thorax is performed with IV Contrast, patient injected with 90 mL of Isovue 370, pulm onary embolism protocol. MIP images are created and reviewed. FINDINGS: Pulmonary Artery: There is no evidence for a central filling defect within the pulmonary vasculature to suggest acute pulmonary embolism. Limited evaluation of the segmental and subsegmental branches se condary to bolus timing. The pulmonary artery is mildly enlarged measuring up to 3.4 cm. Lungs/Pleura: Peripheral groundglass opacities are seen throughout the lungs. Trace bilateral pleural effusions are present. Airway: Large airways are patent. Heart: Heart is mildly enlarged for size. Moderate coronary artery atherosclerosis is present. Vasculature: No evidence of aortic aneurysm. Reflux of contrast into the IVC is present. Mediastinum: Scattered mediastinal lymph nodes are present including a prevascular space measuring up to 1.0 cm. Musculoskeletal: No acute osseous abnormalities Soft Tissues: Unremarkable. Lower neck: No significant findings. Upper Abdomen: Gastric lap band is present. Partially visualized. IMPRESSION: 1. No evidence of central pulmonary embolism. Limited evaluation of the segmental and subsegmental br anches. 2. Peripheral groundglass pulmonary opacities concerning for atypical pulmonary infection such as COV [id number]. 3. Reactive mediastinal lymphadenopathy likely secondary to #2. 4. Cardiomegaly with pulmonary vascular congestion and trace bilateral pleural effusions underlying c omponent of congestive heart failure is suspected.
[2022-04-12] MEDS ORDERED: ASPIRIN 325 MG TAB PO STA (14:22)
[2022-04-12] MEDS: FUROSEMIDE 10 MG/ML 4 ML VIAL IV SCH ×2 (15:34→22:29)
[2022-04-12 16:54] LABS: Glucose,Whole Blood 320 mg/dL (70-110)
[2022-04-12] MEDS: INSULIN ASPART (NovoLOG) 100 UNIT/ML VIAL SQ SCH ×2 (17:14→21:20)
[2022-04-12] MEDS: OXYBUTYNIN CHLORIDE 5 MG TAB PO SCH (17:14)
[2022-04-12] MEDS ORDERED: NITROGLYCERIN OINT 1 INCH/GM PACKET TOPICAL SCH (18:00)
[2022-04-12 20:03] LABS: Glucose,Whole Blood 352 mg/dL (70-110)
[2022-04-12] MEDS: METOPROLOL TARTRATE 50 MG TAB PO SCH (21:19)
[2022-04-12] MEDS: CEPHALEXIN 500 MG CAP PO SCH (21:19)
[2022-04-12] MEDS: GABAPENTIN 300 MG CAP PO SCH (21:19)
[2022-04-12] MEDS: APIXABAN 5 MG TAB PO SCH (21:19)
[2022-04-12] MEDS: MIRTAZAPINE 15 MG TAB PO SCH (21:19)
[2022-04-12] MEDS: ATORVASTATIN 40 MG TAB PO SCH (21:19)
[2022-04-13] MEDS: FUROSEMIDE 10 MG/ML 4 ML VIAL IV SCH ×2 (06:15→20:41)
[2022-04-13] MEDS: LEVOTHYROXINE 50 MCG TAB PO SCH (06:16)
[2022-04-13] MEDS: CEPHALEXIN 500 MG CAP PO SCH (06:16)
[2022-04-13] MEDS: ISOSORBIDE MONONITRATE ER 30 MG TAB.ER.24H PO SCH (08:17)
[2022-04-13] MEDS: APIXABAN 5 MG TAB PO SCH ×2 (08:17→20:41)
[2022-04-13] MEDS: OXYBUTYNIN CHLORIDE 5 MG TAB PO SCH ×2 (08:17→17:18)
[2022-04-13] MEDS: GABAPENTIN 300 MG CAP PO SCH ×2 (08:17→20:41)
[2022-04-13] MEDS: POTASSIUM CHLORIDE ER 20 MEQ TAB.ER PO SCH (08:17)
[2022-04-13] MEDS: METOPROLOL TARTRATE 50 MG TAB PO SCH ×3 (08:17→20:41)
[2022-04-13] MEDS: INSULIN ASPART (NovoLOG) 100 UNIT/ML VIAL SQ SCH ×7 (08:19→20:41)
[2022-04-13 08:30] LABS: Glucose,Whole Blood 225 mg/dL (70-110)
[2022-04-13] MEDS ORDERED: ASPIRIN 325 MG TAB PO SCH (09:00)
--- NOTE | 2022-04-13 09:25 | P.CRDCN ---
History of Present Illness History of present illness: This is a 72-year-old female past medical history of coronary artery disease status post prior 2 vessel bypass in 1996, hypertension, dyslipidemia, morbid obesity, type 2 diabetes, persistent atrial fibrillation on Eliquis. She follows with Dr. Weller. We have been following the patient secondary to congestive heart failure. Patient presents to the ER from [facility] secondary to hypoxia. Patient does endorse shortness of breath when moving to sit at the edge of the bed. She denies any symptoms of orthopnea or PND. She denies any changes to her medications or diet that she is aware of. She was brought to the emergency department for further evaluation. She was started on IV lasix, with 1.3L urine output. She denies any shortness breath, chest pain, palpitations, lightheadedness, dizziness. DIAGNOSTICS * EKG reveals atrial fibrillation with mild RVR, heart rate 103, right bundle-b ranch block * Echocardiogram 04/07/2022-revealed EF of 50%, mild aortic regurgitation, mild aortic stenosis with peak gradient of 25 and a mean gradient of 14 mmHg, severe tricuspid regurgitation, moderate pulmonary hypertension. * Telemetry tracings indicate atrial fibrillation with heart rates in the 70s80s * Chest xray cardiomegaly, mild pulmonary vascular congestion * CTA with no evidence of pulmonary embolism, peripheral groundglass pulmonary opacities. Cardiomegaly with pulmonary vascular congestion, trace bilateral pleural effusions * Laboratory reviewed, WBC 8.8, hemoglobin 10.5, platelets 229, d-dimer 1.5, sodium 138, potassium 4.3, BUN 34, serum creatinine 0.8, troponin negative, proBNP 7280, influenza negative,: Negative * Current home cardiac medications include atorvastatin 40 mg nightly, Imdur 30 mg daily, potassium chloride, Eliquis 5 mg twice a day, Lasix 40 mg twice a day, metoprolol titrate 50 mg 3 times a day REVIEW OF SYSTEMS At the time of my exam: CONSTITUTIONAL: Denies fever or chills. CARDIOVASCULAR: Denies chest pain,+ shortness of breath, Denies orthopnea, PND o r palpitations. RESPIRATORY: Denies cough. GASTROINTESTINAL: Denies abdominal pain, diarrhea, constipation, nausea or vomiting. MUSCULOSKELETAL: Denies myalgias. NEUROLOGIC: Denies numbness, tingling, headacbe or weakness. ENDOCRINE: Denies fatigue, weight change, polydipsia or polyurina. GENITOURINARY: Denies burning, hematuria or urgency with micturation. HEMATOLOGIC: +history of anemia Denies bleeding. PHYSICAL EXAMINATION Blood pressure 146/72, heart rate 75, afebrile, oxygen saturations 100% on 4 L nasal cannula CONSTITUTIONAL: No apparent distress. Obese. HEENT: Head is normocephalic. Pupils are equal, round. Sclerae anicteric. Mucous membranes of the mouth are moist. No JVD. CHEST EXAMINATION: Lungs are diminished bilaterally to auscultation. No chest wall tenderness is noted on palpation or with deep breathing. HEART EXAMINATION: Irregular rate and rhythm. S1, S2 heard. Systolic ejection mumur at base ABDOMEN: Soft, nontender. Positive bowel sounds. EXTREMITIES: 1+ bilateral lower extremity edema and no calf tenderness. SKIN: Redness right lower ankle NEUROLOGIC EXAMINATION: Patient is awake, lethargic and oriented x3. ASSESSMENT Acute on chronic heart failure with preserved ejection fraction Possible pneumonia Mild aortic stenosis Persistent atrial fibrillation, on Eliquis Coronary artery disease with prior 2 vessel bypass in 1996 Morbid obesity Hypertension Dyslipidemia Type 2 diabetes Pulmonary hypertension PLAN IV Lasix 40mg BID Monitor I's and O's, daily weights Monitor renal function and electrolytes Continue anticoagulation with Eliquis Continue home beta josh and statin Further recommendations based on clinical course Nurse Practitioner note has been reviewed, I agree with a documented findings and plan of care. Patient was seen and examined. Past Medical History Past Medical History: Atrial Fibrillation, Coronary Artery Disease (CAD), Diabetes Mellitus, Eye Disorder, Hyperlipidemia, Hypertension, Osteoarthritis (OA), Pneumonia, Renal Disease, Sleep Apnea/CPAP/BIPAP, Thyroid Disorder Additional Past Medical History / Comment(s): Pt recently admitted to [facility] on with covic pneumonia/sepsis, acute hypoxic respiratory failure/now on home oxygen ATC, new A fib with RVR. Other hx: IDDM type II, neuropathy bilateral feet, L eye retinal bleed/lasik eye surgery, R eye cataract, bilateral eye macular degeneration/gets injections/poor vision, CKD stage III, anemia, UTI/sepsis, bilateral leg lymphedema/currently has "rash" R lower leg/one spot on L lower leg, FLORES/does not have cpap machine at this time, diverticulitis, gout, chronic back pain, rheumatic fever, hypothyroid. History of Any Multi-Drug Resistant Organisms: None Reported Past Surgical History: Bariatric Surgery, Section, Cholecystectomy, Coronary Bypass/CABG, Heart Catheterization, Hysterectomy, Tonsillectomy Additional Past Surgical History / Comment(s): A 2 vessel CABG in 1996, bilateral carpal tunnel release, lap band, L eye laser surgery, Past Anesthesia/Blood Transfusion Reactions: No Reported Reaction Past Psychological History: Depression Additional Psychological History / Comment(s): Pt resides with her son only now, her brother from [employer] 02/27/22. Pt does not drive d/t vision problems, her son [facility] her [facility] [employer]. She states she is able to manage her own medictions. She uses no assistive device. She states she has home oxygen now. She has no home care. They own a dog. Smoking Status: Never smoker Past Alcohol Use History: None Reported Additional Past Alcohol Use History / Comment(s): Patient is a lifelong nonsmoker. Past Drug Use History: None Reported - Past Family History Father Family Medical History: Cancer, Coronary Artery Disease (CAD), Diabetes Mellitus Additional Family Medical History / Comment(s): Prostate cancer Mother Family Medical History: Cancer Additional Family Medical History / Comment(s): Bone cancer. Medications and Allergies Home Medications Medication Instructions Recorded Confirmed Type Atorvastatin [Lipitor] 40 mg PO HS@2100 08/10/16 04/12/22 History Isosorbide Mononitrate [Isosorbide 30 mg PO DAILY@0900 08/10/16 04/12/22 History Mononitrate ER] Levothyroxine Sodium [Tirosint] 50 mcg PO DAILY@0600 08/10/16 04/12/22 History Oxybutynin Chloride 5 mg PO BID@0900,1700 08/10/16 04/12/22 History Potassium Chloride [Klor-Con 10 ER] 20 meq PO DAILY@0900 08/10/16 04/12/22 History Furosemide [Lasix] 40 mg PO BID@0900,1600 tab 04/10/22 04/12/22 Rx Apixaban [Eliquis] 5 mg PO BID@0900,2100 04/12/22 04/12/22 History Cephalexin [Keflex] 500 mg PO TID@06,14,04/12/22 04/12/22 History Gabapentin [Neurontin] 300 mg PO BID@0900,2100 04/12/22 04/12/22 History INSULIN ASPART (NovoLOG) [NovoLOG 5 unit SQ TID@,,16 PRN 04/12/22 04/12/22 History (formulary)] INSULIN ASPART (NovoLOG) [NovoLOG See Protocol SQ QID@,12,,04/12/22 04/12/22 History (formulary)] Metoprolol Tartrate [Lopressor] 50 mg PO TID@,,04/12/22 04/12/22 History Mirtazapine [Remeron] 15 mg PO HS@209904/12/22 04/12/22 History Allergies Allergy/AdvReac Type Severity Reaction Status Date / Time ibuprofen [From Motrin] Allergy Rash/Hives Verified 04/12/22 15:26 Penicillins Allergy Anaphylaxis Verified 04/12/22 15:26 Physical Exam Vitals: Vital Signs Temp Pulse Pulse Resp BP BP Pulse Ox 04/13/22 03:59 98.4 F 84 20 128/65 97 04/13/22 03:54 04/13/22 02:00 16 04/12/22 23:57 04/12/22 23:05 98.2 F 82 20 124/62 97 04/12/22 20:00 98.4 F 88 18 126/57 98 04/12/22 19:48 04/12/22 16:11 04/12/22 16:01 93 16 98 04/12/22 16:00 98.7 F 77 22 139/66 100 04/12/22 15:30 04/12/22 15:00 90 16 135/65 98 04/12/22 14:19 04/12/22 14:00 92 15 155/94 98 04/12/22 13:48 99.5 F 92 18 139/52 100 04/12/22 11:23 101 H 20 129/65 98 FiO2 04/13/22 03:59 35 04/13/22 03:54 35 04/13/22 02:00 04/12/22 23:57 35 04/12/22 23:05 35 04/12/22 20:00 35 04/12/22 19:48 35 04/12/22 16:11 35 04/12/22 16:01 04/12/22 16:00 35 04/12/22 15:30 35 04/12/22 15:00 04/12/22 14:19 35 04/12/22 14:00 04/12/22 13:48 04/12/22 11:23 Intake and Output 04/12/22 04/13/22 04/13/22 22:59 06:59 14:59 Intake Total 298 Output Total 1300 Balance 298 -1300 Intake: Oral 298 Output: Urine 1300 Uretheral (Lynne) 850 Other: Voiding Method Indwelling Catheter Indwelling Catheter Weight 148 kg Results 04/12/22 11:57 04/12/22 11:57 Cardiac Enzymes 04/12/22 04/12/22 Range/Units 11:57 11:57 AST 29 (14-36) U/L Troponin I 0.025 (0.000-0.034) ng/mL Coagulation 04/12/22 Range/Units 11:57 PT 12.8 H (9.0-12.0) sec APTT 22.6 (22.0-30.0) sec CBC 04/12/22 Range/Units 11:57 WBC 8.8 (3.8-10.6) k/uL RBC 2.71 L (3.80-5.40) m/uL Hgb 7.5 L (11.4-16.0) gm/dL Hct 24.8 L (34.0-46.0) % Plt Count 229 (150-450) k/uL Comprehensive Metabolic Panel 04/12/22 Range/Units 11:57 Sodium 138 (137-145) mmol/L Potassium 4.3 (3.5-5.1) mmol/L Chloride 92 L (98-107) mmol/L Carbon Dioxide 38 H (22-30) mmol/L BUN 34 H (7-17) mg/dL Creatinine 0.86 (0.52-1.04) mg/dL Glucose 255 H (74-99) mg/dL Calcium 9.0 (8.4-10.2) mg/dL AST 29 (14-36) U/L ALT 13 (4-34) U/L Alkaline Phosphatase 85 (38-126) U/L Total Protein 5.9 L (6.3-8.2) g/dL Albumin 2.8 L (3.5-5.0) g/dL Current Medications Generic Name Dose Route Start Last Admin Trade Name Floyd PRN Reason Stop Dose Admin Apixaban 5 mg 04/12/22 21:00 04/12/22 21:19 Apixaban 5 Mg Tab PO 5 mg BID@0900,2100 [facility] Administration Protocol Aspirin 325 mg 04/13/22 09:00 Aspirin 325 Mg Tab PO DAILY [facility] Atorvastatin Calcium 40 mg 04/12/22 21:00 04/12/22 21:19 Atorvastatin 40 Mg Tab PO 40 mg HS@2100 LD Administration Cephalexin 500 mg 04/12/22 22:00 04/13/22 06:16 Cephalexin 500 Mg Cap PO 500 mg TID@0600,1400,2200 [facility] Administration Protocol Furosemide 40 mg 04/12/22 14:30 04/13/22 06:15 Furosemide 10 Mg/Ml 4 Ml Vial IV 40 mg Q8H LD Administration Gabapentin 300 mg 04/12/22 21:00 04/12/22 21:19 Gabapentin 300 Mg Cap PO 300 mg BID@0900,2100 [facility] Administration Insulin Aspart 0 unit 04/12/22 17:00 04/12/22 21:20 Insulin Aspart (Novolog) 100 Unit/Ml Vial SQ 10 unit QID@0700,1200,1700,2100 [facility] Administration Protocol Insulin Aspart 5 unit 04/13/22 07:00 Insulin Aspart (Novolog) 100 Unit/Ml Vial SQ TID@0700,1100,1600 [facility] Isosorbide Mononitrate 30 mg 04/13/22 09:00 Isosorbide Mononitrate Er 30 Mg Tab.Er.24h PO DAILY@0900 [facility] Levothyroxine Sodium 50 mcg 04/13/22 06:00 04/13/22 06:16 Levothyroxine 50 Mcg Tab PO 50 mcg DAILY@0600 [facility] Administration Metoprolol Tartrate 50 mg 04/12/22 21:00 04/12/22 21:19 Metoprolol Tartrate 50 Mg Tab PO 50 mg TID@0900,1300,2100 [facility] Administration Mirtazapine 15 mg 04/12/22 21:00 04/12/22 21:19 Mirtazapine 15 Mg Tab PO 15 mg HS@2100 LD Administration Oxybutynin Chloride 5 mg 04/12/22 17:00 04/12/22 17:14 Oxybutynin Chloride 5 Mg Tab PO 5 mg BID@0900,1700 [facility] Administration Potassium Chloride 20 meq 04/13/22 09:00 Potassium Chloride Er 20 Meq Tab.Er PO DAILY@0900 LD Sodium Chloride 10 ml 04/12/22 21:00 04/12/22 21:21 Sodium Chloride 0.9% Flush 10 Ml Syringe IV 10 ml BID LD Administration Intake and Output 04/12/22 04/13/22 04/13/22 22:59 06:59 14:59 Intake Total 298 Output Total 1300 Balance 298 -1300 Intake: Oral 298 Output: Urine 1300 Uretheral (Lynne) 850 Other: Voiding Method Indwelling Catheter Indwelling Catheter Weight 148 kg 04/12/22 11:57 04/12/22 11:57
[2022-04-13 10:25] LABS: Calcium 9.3 mg/dL (8.4-10.2); Potassium 4.1 mmol/L (3.5-5.1)
[2022-04-13] MEDS ORDERED: FLUCONAZOLE 100 MG TAB PO ONE (10:56)
[2022-04-13] MEDS ORDERED: PANTOPRAZOLE 40 MG/10 ML VIAL IVP SCH (11:00)
[2022-04-13 12:09] LABS: Glucose,Whole Blood 282 mg/dL (70-110)
[2022-04-13 12:15] LABS: Glucose,Whole Blood 283 mg/dL (70-110)
[2022-04-13] MEDS: LEVOFLOXACIN 250MG-D5W PMX 250 MG in DEXTROSE/WATER 1 50ML.BAG IVPB SCH (12:58)
[2022-04-13] MEDS: INSULIN DETEMIR (LEVEMIR) 100 UNIT/ML SYR SQ SCH (13:00)
[2022-04-13 14:51] VITALS: BMI 59.6
--- NOTE | 2022-04-13 14:56 | P.HPIM ---
History of Present Illness H&P Date: 04/14/22 This is a 72-year-old female admitted from [facility] subacute rehab with acute on chronic hypoxic respiratory failure, multifactorial, wears 2.5 L nasal cannula O2 at home. Discharged last week to subacute rehab for acute on chronic CHF with increase in home dose of oral diuretics/Lasix as per cardiology. Recent COVID-19 pneumonia January 2022 with chronic fibrotic changes secondary to the Covid infection as per pulmonary's evaluation on prior admission.patient also received a couple units packed RBCs on last admission for acute on chronic anemia with negative Hemoccult,currently stable at 7.5. Maintaining O2 sats of 100% on 4 L nasal cannula, titrated down, currently maintaining O2 sats of 96% on 2 L nasal cannula (baseline). Denies chest pain, palpitations or shortness of breath. Denies cough. Denies lightheadedness dizziness or focal deficits. Consuming 75% of breakfast. Denies nausea, vomiting or diarrhea. No abdominal pain. Renal function stable. Electrolytes within normal limits. Right lower extremity cellulitis, wound cultures of last week reporting MSSA. EKG reported atrial fibrillation with mild tachycardia, low 100s, right bundle branch block, troponin 0.025, proBNP 7280. Anticoagulated on Eliquis. Chest x-ray reporting cardiomegaly, mild pulmonary vascular congestion. D-dimer 1.55. Chest CTA reported no PE with limited evaluation of segmental and subsegmental branches, peripheral groundglass pulmonary opacities with reactive mediastinal lymphadenopathy in a patient with recent Covid infection , cardiomegaly with pulmonary vascular congestion and trace bilateral pleural effusions, suspected underlying component of CHF .Coronavirus, influenza type A and type B not detected. Diuresing well on Lasix IV push with 24 hour I&O reflecting a negative fluid balance. Hyperglycemic. IV push diuretics initiated, continues on beta josh Review of Systems ROS Statement: Those systems with pertinent positive or pertinent negative responses have been documented in the HPI. ROS Other: All systems not noted in ROS Statement are negative. Past Medical History Past Medical History: Atrial Fibrillation, Coronary Artery Disease (CAD), Diabetes Mellitus, Eye Disorder, Hyperlipidemia, Hypertension, Osteoarthritis (OA), Pneumonia, Renal Disease, Sleep Apnea/CPAP/BIPAP, Thyroid Disorder Additional Past Medical History / Comment(s): Pt recently admitted to [facility] on 02/12/22 with covic pneumonia/sepsis, acute hypoxic respiratory failure/now on home oxygen ATC, new A fib with RVR. Other hx: IDDM type II, neuropathy bilateral feet, L eye retinal bleed/lasik eye surgery, R eye cataract, bilateral eye macular degeneration/gets injections/poor vision, CKD stage III, anemia, UTI/sepsis, bilateral leg lymphedema/currently has "rash" R lower leg/one spot on L lower leg, FLORES/does not have cpap machine at this time, diverticulitis, gout, chronic back pain, rheumatic fever, hypothyroid. History of Any Multi-Drug Resistant Organisms: None Reported Past Surgical History: Bariatric Surgery, Section, Cholecystectomy, Coronary Bypass/CABG, Heart Catheterization, Hysterectomy, Tonsillectomy Additional Past Surgical History / Comment(s): A 2 vessel CABG in 1996, bilateral carpal tunnel release, lap band, L eye laser surgery, Past Anesthesia/Blood Transfusion Reactions: No Reported Reaction Past Psychological History: Depression Additional Psychological History / Comment(s): Pt resides with her son only now, her brother from [employer] 02/27/22. Pt does not drive d/t vision problems, her son takes her to [employer]. She states she is able to manage her own medictions. She uses no assistive device. She states she has home oxygen now. She has no home care. They own a dog. Smoking Status: Never smoker Past Alcohol Use History: None Reported Additional Past Alcohol Use History / Comment(s): Patient is a lifelong nonsmoker. Past Drug Use History: None Reported - Past Family History Father Family Medical History: Cancer, Coronary Artery Disease (CAD), Diabetes Mellitus Additional Family Medical History / Comment(s): Prostate cancer Mother Family Medical History: Cancer Additional Family Medical History / Comment(s): Bone cancer. Medications and Allergies Home Medications Medication Instructions Recorded Confirmed Type Atorvastatin [Lipitor] 40 mg PO HS@2100 08/10/16 04/12/22 History Isosorbide Mononitrate [Isosorbide 30 mg PO DAILY@0900 08/10/16 04/12/22 History Mononitrate ER] Levothyroxine Sodium [Tirosint] 50 mcg PO DAILY@0600 08/10/16 04/12/22 History Oxybutynin Chloride 5 mg PO BID@0900,1700 08/10/16 04/12/22 History Potassium Chloride [Klor-Con 10 ER] 20 meq PO DAILY@0900 08/10/16 04/12/22 History Furosemide [Lasix] 40 mg PO BID@0900,1600 tab 04/10/22 04/12/22 Rx Apixaban [Eliquis] 5 mg PO BID@0900,209904/12/22 04/12/22 History Cephalexin [Keflex] 500 mg PO TID@,,04/12/22 04/12/22 History Gabapentin [Neurontin] 300 mg PO BID@0900,209904/12/22 04/12/22 History INSULIN ASPART (NovoLOG) [NovoLOG 5 unit SQ TID@,, PRN 04/12/22 04/12/22 History (formulary)] INSULIN ASPART (NovoLOG) [NovoLOG See Protocol SQ QID@,,,04/12/22 04/12/22 History (formulary)] Metoprolol Tartrate [Lopressor] 50 mg PO TID@,04/12/22 04/12/22 History Mirtazapine [Remeron] 15 mg PO HS@209904/12/22 04/12/22 History Allergies Allergy/AdvReac Type Severity Reaction Status Date / Time ibuprofen [From Motrin] Allergy Rash/Hives Verified 04/12/22 15:26 Penicillins Allergy Anaphylaxis Verified 04/12/22 15:26 Physical Exam Vitals: Vital Signs Temp Pulse Pulse Pulse Resp BP BP 04/13/22 08:10 97.9 F 75 20 146/72 04/13/22 08:00 75 84 20 04/13/22 03:59 98.4 F 84 20 128/65 04/13/22 03:54 04/13/22 02:00 16 04/12/22 23:57 04/12/22 23:05 98.2 F 82 20 124/62 04/12/22 20:00 98.4 F 88 18 126/57 04/12/22 19:48 04/12/22 16:11 04/12/22 16:01 93 16 04/12/22 16:00 98.7 F 77 22 139/66 04/12/22 15:30 04/12/22 15:00 90 16 135/65 04/12/22 14:19 04/12/22 14:00 92 15 155/94 04/12/22 13:48 99.5 F 92 18 139/52 Pulse Ox FiO2 04/13/22 08:10 100 04/13/22 08:00 04/13/22 03:59 97 35 04/13/22 03:54 35 04/13/22 02:00 04/12/22 23:57 35 04/12/22 23:05 97 35 04/12/22 20:00 98 35 04/12/22 19:48 35 04/12/22 16:11 35 04/12/22 16:01 98 04/12/22 16:00 100 35 04/12/22 15:30 35 04/12/22 15:00 98 04/12/22 14:19 35 04/12/22 14:00 98 04/12/22 13:48 100 Intake and Output 04/12/22 04/13/22 04/13/22 22:59 06:59 14:59 Intake Total 298 118 Output Total 1300 Balance 298 -1300 118 Intake: Oral 298 118 Output: Urine 1300 Uretheral (Lynne) 850 Other: Voiding Method Indwelling Catheter Indwelling Catheter Indwelling Catheter Weight 148 kg 148 kg PHYSICAL EXAM: VITAL SIGNS: [As above] GENERAL: Morbidly obese , sitting up in bed , no acute distress ,Alert and oriented 3. HEENT: Conjunctivae normal. eyes normal. Oral mucosa moist NECK: Supple, No JVD. CARDIOVASCULAR: S1, S2 regular. Systolic murmur RESPIRATION: Unlabored, Bilateral air entry, fine bibasilar crackles ABDOMEN: Soft, obese, nontender . No guarding. no masses palpable. Bowel sounds heard. LEGS:Chronic venous stasis with bilateral lower extremity edema, right lower extremity Jam wrapped ,no clubbing, no cyanosis.No calf tenderness. NERVOUS SYSTEM: Cranial N 2-12 grossly normal. No focal deficits. Skin: Warm and dry, no rash. Results CBC & Chem 7: 04/12/22 11:57 04/13/22 08:59 Labs: Abnormal Lab Results - Last 24 Hours (Table) 04/12/22 04/12/22 04/12/22 Range/Units 11:57 11:57 11:57 RBC 2.71 L (3.80-5.40) m/uL Hgb 7.5 L (11.4-16.0) gm/dL Hct 24.8 L (34.0-46.0) % MCHC 30.3 L (31.0-37.0) g/dL RDW 17.1 H (11.5-15.5) % Lymphocytes # 0.4 L (1.0-4.8) k/uL PT 12.8 H (9.0-12.0) sec INR 1.2 H (<1.2) D-Dimer 1.55 H (<0.60) mg/L FEU ABG pH (7.35-7.45) ABG pCO2 (35-45) mmHg ABG pO2 (83-108) mmHg ABG HCO3 (21-25) mmol/L ABG Total CO2 (19-24) mmol/L ABG O2 Saturation (94-97) % ABG Hematocrit (34.0-46.0) % Hemoglobin (11.4-16.0) gm/dL Chloride 92 L (98-107) mmol/L Carbon Dioxide 38 H (22-30) mmol/L BUN 34 H (7-17) mg/dL Glucose 255 H (74-99) mg/dL POC Glucose (mg/dL) (70-110) mg/dL Total Protein 5.9 L (6.3-8.2) g/dL Albumin 2.8 L (3.5-5.0) g/dL 04/12/22 04/12/22 04/12/22 Range/Units 12:28 16:53 20:02 RBC (3.80-5.40) m/uL Hgb (11.4-16.0) gm/dL Hct (34.0-46.0) % MCHC (31.0-37.0) g/dL RDW (11.5-15.5) % Lymphocytes # (1.0-4.8) k/uL PT (9.0-12.0) sec INR (<1.2) D-Dimer (<0.60) mg/L FEU ABG pH 7.46 H (7.35-7.45) ABG pCO2 59 H (35-45) mmHg ABG pO2 37 L* (83-108) mmHg ABG HCO3 42 H* (21-25) mmol/L ABG Total CO2 44 H (19-24) mmol/L ABG O2 Saturation 71.7 L (94-97) % ABG Hematocrit 23 L (34.0-46.0) % Hemoglobin 7.5 L (11.4-16.0) gm/dL Chloride (98-107) mmol/L Carbon Dioxide (22-30) mmol/L BUN (7-17) mg/dL Glucose (74-99) mg/dL POC Glucose (mg/dL) 320 H 352 H (70-110) mg/dL Total Protein (6.3-8.2) g/dL Albumin (3.5-5.0) g/dL 04/13/22 04/13/22 Range/Units 08:16 08:59 RBC (3.80-5.40) m/uL Hgb (11.4-16.0) gm/dL Hct (34.0-46.0) % MCHC (31.0-37.0) g/dL RDW (11.5-15.5) % Lymphocytes # (1.0-4.8) k/uL PT (9.0-12.0) sec INR (<1.2) D-Dimer (<0.60) mg/L FEU ABG pH (7.35-7.45) ABG pCO2 (35-45) mmHg ABG pO2 (83-108) mmHg ABG HCO3 (21-25) mmol/L ABG Total CO2 (19-24) mmol/L ABG O2 Saturation (94-97) % ABG Hematocrit (34.0-46.0) % Hemoglobin (11.4-16.0) gm/dL Chloride 92 L (98-107) mmol/L Carbon Dioxide 39 H (22-30) mmol/L BUN 39 H (7-17) mg/dL Glucose 189 H (74-99) mg/dL POC Glucose (mg/dL) 225 H (70-110) mg/dL Total Protein (6.3-8.2) g/dL Albumin (3.5-5.0) g/dL Assessment and Plan Assessment: Acute on chronic congestive heart failure, diastolic dysfunction, EF 50%, possible pneumonia, pro-calcitonin pending. Recent COVID-19 pneumonia January 2022 with chronic fibrotic changes secondary to the Covid infection as per pulmonary Chronic anemia Acute on chronic hypoxic respiratory failure, secondary to all the above, wears 2.5 L NC O2 at home Moderate pulmonary hypertension Chronic Bilateral lower extremity cellulitis, MSSA on prior wound cultures of the last admission Chronic atrial fibrillation, newly diagnosed on prior visit, January 2022 CAD, history of CABG Hypertension hyperlipidemia Diabetes mellitus, hemoglobin A1c 6.6 Hypothyroidism History of bariatric surgery Morbid obesity, BMI 59.7 Plan: Continue on current medication regime ,monitoring and symptomatic reese atment. Diuretics as per cardiology. Antibiotics adjusted Levaquin to cover both cellulitis and potential pneumonia. Pro-calcitonin pending. Levemir added to med regimen, close monitoring of Accu-Cheks. The impression and plan of care has been dictated as directed. : I performed a history and examination of this patient, discussed the same with the dictator. I agree with the dictator's note ,documented as a scribe. Any additional findings or plans will be noted.
--- NOTE | 2022-04-13 15:13 | P.CNPUL ---
History of Present Illness Consult date: 04/13/22 Requesting physician: Maik Jaam Reason for consult: dyspnea, COPD, hypoxemia Chief complaint: Respiratory failure. History of present illness: Pulmonary consultation dated 04/13/2022. 72-year-old female seen in the emergency room, on April 12. She presented to the emergency room, from the nursing facility with low saturations. She apparently told the ER personnel she had no complaints, and felt fine. She does have a history of hypoxemic and hypercapnic respiratory failure, as well as congestive heart failure. She does wear oxygen at home. Currently, the patient is on BiPAP, with settings of 14/5 and 35%. She was recently inpatient between April 06 and April 10. She's getting saline at [facility]. She is also on IV Levaquin. She appears in no distress. She was sleeping when I first went into the room. White count 8.8, hemoglobin 7.5, hematocrit 24.8, and platelet count 229,000. D-dimer was 1.55. PT 12.8. Blood gases show a PaO2 of 37, pCO2 of 59, and a pH is 7.46. That was on room air. Sodium 140, potassium 4.1, chlorides 92, CO2 39, BUN 39, and creatinine 0.88. N-terminal proBNP was 7280. A nasal swab for coronavirus was negative. Influenza studies were also negative. A pro-calcitonin level was ordered by me. Chest x-ray was consistent in my opinion with CHF. CT angiogram showed no evidence of central pulmonary emboli. In addition, the computed tomography scan was consistent with CHF. Review of Systems REVIEW OF SYSTEMS: CONSTITUTIONAL: [Negative.] NEUROLOGIC: [ Negative.] HEENT: [ Negative.] CARDIAC: [Negative.] PULMONARY: Shortness of breath, and low saturations. GI: [Negative.] : [Negative.] RHEUMATOLOGIC: [ Negative.] IMMUNOLOGIC: [ Negative.] ENDOCRINE: [Negative. ] DERMATOLOGIC: [Negative.] Past Medical History Past Medical History: Atrial Fibrillation, Coronary Artery Disease (CAD), Diabetes Mellitus, Eye Disorder, Hyperlipidemia, Hypertension, Osteoarthritis (OA), Pneumonia, Renal Disease, Sleep Apnea/CPAP/BIPAP, Thyroid Disorder Additional Past Medical History / Comment(s): Pt recently admitted to [facility] on 02/12/22 with covic pneumonia/sepsis, acute hypoxic respiratory failure/now on home oxygen ATC, new A fib with RVR. Other hx: IDDM type II, neuropathy bilateral feet, L eye retinal bleed/lasik eye surgery, R eye cataract, bilateral eye macular degeneration/gets injections/poor vision, CKD stage III, anemia, UTI/sepsis, bilateral leg lymphedema/currently has "rash" R lower leg/one spot on L lower leg, FLORES/does not have cpap machine at this time, diverticulitis, gout, chronic back pain, rheumatic fever, hypothyroid. History of Any Multi-Drug Resistant Organisms: None Reported Past Surgical History: Bariatric Surgery, Section, Cholecystectomy, Coronary Bypass/CABG, Heart Catheterization, Hysterectomy, Tonsillectomy Additional Past Surgical History / Comment(s): A 2 vessel CABG in 1996, bilateral carpal tunnel release, lap band, L eye laser surgery, Past Anesthesia/Blood Transfusion Reactions: No Reported Reaction Past Psychological History: Depression Additional Psychological History / Comment(s): Pt resides with her son only now, her brother from [place] 02/27/22. Pt does not drive d/t vision problems, her son takes her to [employer]. She states she is able to manage her own medictions. She uses no assistive device. She states she has home oxygen now. She has no home care. They own a dog. Smoking Status: Never smoker Past Alcohol Use History: None Reported Additional Past Alcohol Use History / Comment(s): Patient is a lifelong nonsmoker. Past Drug Use History: None Reported - Past Family History Father Family Medical History: Cancer, Coronary Artery Disease (CAD), Diabetes Mellitus Additional Family Medical History / Comment(s): Prostate cancer Mother Family Medical History: Cancer Additional Family Medical History / Comment(s): Bone cancer. Medications and Allergies Home Medications Medication Instructions Recorded Confirmed Type Atorvastatin [Lipitor] 40 mg PO HS@2100 08/10/16 04/12/22 History Isosorbide Mononitrate [Isosorbide 30 mg PO DAILY@0900 08/10/16 04/12/22 History Mononitrate ER] Levothyroxine Sodium [Tirosint] 50 mcg PO DAILY@0600 08/10/16 04/12/22 History Oxybutynin Chloride 5 mg PO BID@0900,1700 08/10/16 04/12/22 History Potassium Chloride [Klor-Con 10 ER] 20 meq PO DAILY@0900 08/10/16 04/12/22 History Furosemide [Lasix] 40 mg PO BID@0900,1600 tab 04/10/22 04/12/22 Rx Apixaban [Eliquis] 5 mg PO BID@0900,209904/12/22 04/12/22 History Cephalexin [Keflex] 500 mg PO TID@,,04/12/22 04/12/22 History Gabapentin [Neurontin] 300 mg PO BID@0900,209904/12/22 04/12/22 History INSULIN ASPART (NovoLOG) [NovoLOG 5 unit SQ TID@,, PRN 04/12/22 04/12/22 History (formulary)] INSULIN ASPART (NovoLOG) [NovoLOG See Protocol SQ QID@,,,04/12/22 04/12/22 History (formulary)] Metoprolol Tartrate [Lopressor] 50 mg PO TID@,04/12/22 04/12/22 History Mirtazapine [Remeron] 15 mg PO HS@209904/12/22 04/12/22 History Allergies Allergy/AdvReac Type Severity Reaction Status Date / Time ibuprofen [From Motrin] Allergy Rash/Hives Verified 04/12/22 15:26 Penicillins Allergy Anaphylaxis Verified 04/12/22 15:26 Physical Exam Osteopathic Statement: *. No significant issues noted on an osteopathic structural exam other than those noted in the History and Physical/Consult. Vitals: Vital Signs Temp Pulse Pulse Pulse Resp BP Pulse Ox 04/13/22 12:10 97.3 F L 88 18 130/67 96 04/13/22 08:10 97.9 F 75 20 146/72 100 04/13/22 08:00 75 84 20 04/13/22 03:59 98.4 F 84 20 128/65 97 04/13/22 03:54 04/13/22 02:00 16 04/12/22 23:57 04/12/22 23:05 98.2 F 82 20 124/62 97 04/12/22 20:00 98.4 F 88 18 126/57 98 04/12/22 19:48 04/12/22 16:11 04/12/22 16:01 93 16 98 04/12/22 16:00 98.7 F 77 22 139/66 100 04/12/22 15:30 FiO2 04/13/22 12:10 04/13/22 08:10 04/13/22 08:00 04/13/22 03:59 35 04/13/22 03:54 35 04/13/22 02:00 04/12/22 23:57 35 04/12/22 23:05 35 04/12/22 20:00 35 04/12/22 19:48 35 04/12/22 16:11 35 04/12/22 16:01 04/12/22 16:00 35 04/12/22 15:30 35 Intake and Output 04/13/22 04/13/22 04/13/22 06:59 14:59 22:59 Intake Total 236 Output Total 1300 650 Balance -1300 -414 Intake: Oral 236 Output: Urine 1300 650 Uretheral (Lynne) 850 Other: Voiding Method Indwelling Catheter Indwelling Catheter Weight 148 kg 148 kg No acute distress, sleeping, currently on BiPAP therapy. HEENT examination is grossly unremarkable. Neck supple. Full range of motion. No adenopathy thyromegaly or neck vein distention. Cardiovascular examination reveals regular rhythm rate. S1-S2 normal. No S3 or S4. No discernible murmur noted. Heart sounds are distant. Heart rate 88 bpm. Lungs reveal diffuse bilateral rhonchi, and bilateral crackles. Breath sounds equal bilaterally, but diminished throughout. No wheezes. Saturations are in the mid 90s. Abdomen soft bowel sounds are heard. No masses or tenderness. Extremities are intact. No cyanosis or clubbing. Mild to moderate edema is noted. Skin is without rash or lesion. Neurologic examination is brief but nonfocal. Results - Laboratory Findings CBC and BMP: 04/12/22 11:57 04/13/22 08:59 ABG ABG pH 7.46 (7.35-7.45) H 04/12/22 12:28 ABG pCO2 59 mmHg (35-45) H 04/12/22 12:28 ABG pO2 37 mmHg (83-108) L* 04/12/22 12:28 ABG O2 Saturation 71.7 % (94-97) L 04/12/22 12:28 PT/INR, D-dimer PT 12.8 sec (9.0-12.0) H 04/12/22 11:57 INR 1.2 (<1.2) H 04/12/22 11:57 D-Dimer 1.55 mg/L FEU (<0.60) H 04/12/22 11:57 Abnormal lab findings: Abnormal Labs 04/12/22 04/12/22 04/12/22 11:57 11:57 11:57 RBC 2.71 L Hgb 7.5 L Hct 24.8 L MCHC 30.3 L RDW 17.1 H Lymphocytes # 0.4 L PT 12.8 H INR 1.2 H D-Dimer 1.55 H ABG pH ABG pCO2 ABG pO2 ABG HCO3 ABG Total CO2 ABG O2 Saturation ABG Hematocrit Hemoglobin Chloride 92 L Carbon Dioxide 38 H BUN 34 H Glucose 255 H POC Glucose (mg/dL) Total Protein 5.9 L Albumin 2.8 L 04/12/22 04/12/22 04/12/22 12:28 16:53 20:02 RBC Hgb Hct MCHC RDW Lymphocytes # PT INR D-Dimer ABG pH 7.46 H ABG pCO2 59 H ABG pO2 37 L* ABG HCO3 42 H* ABG Total CO2 44 H ABG O2 Saturation 71.7 L ABG Hematocrit 23 L Hemoglobin 7.5 L Chloride Carbon Dioxide BUN Glucose POC Glucose (mg/dL) 320 H 352 H Total Protein Albumin 04/13/22 04/13/22 04/13/22 08:16 08:59 11:37 RBC Hgb Hct MCHC RDW Lymphocytes # PT INR D-Dimer ABG pH ABG pCO2 ABG pO2 ABG HCO3 ABG Total CO2 ABG O2 Saturation ABG Hematocrit Hemoglobin Chloride 92 L Carbon Dioxide 39 H BUN 39 H Glucose 189 H POC Glucose (mg/dL) 225 H 283 H Total Protein Albumin 04/13/22 12:07 RBC Hgb Hct MCHC RDW Lymphocytes # PT INR D-Dimer ABG pH ABG pCO2 ABG pO2 ABG HCO3 ABG Total CO2 ABG O2 Saturation ABG Hematocrit Hemoglobin Chloride Carbon Dioxide BUN Glucose POC Glucose (mg/dL) 282 H Total Protein Albumin - Diagnostic Findings Chest x-ray: image reviewed CT scan - chest: image reviewed Assessment and Plan Assessment: Acute on chronic hypoxemic and hypercapnic respiratory failure, most likely related to fluid overload/CHF. Pneumonia is certainly possible, and appropriate calcitonin level was ordered. History of atrial fibrillation. History of CAD, status post 2 vessel bypass grafting, 1996. History of diabetes mellitus. Hyperlipidemia. Hypertension. Sleep apnea syndrome. Hypothyroidism. History of diabetic retinopathy and neuropathy. History of gout. Stage III chronic kidney disease. Obesity. Multiple other medical problems and comorbidities. Plan: Plan dated 04/13/2022. A pro-calcitonin level has been ordered. The patient is currently on Levaquin. The patient most likely has fluid overload/CHF. Labs, x-rays, medications are reviewed. The patient's overall prognosis remains guarded. She was recently inpatient between April 06 and April 10 with a similar episode. We will continue to follow make recommendations along the way. Prognosis is not good. If the pro-calcitonin level comes back low, antibiotics can be discontinued. Time with Patient: Greater than 30
[2022-04-13 16:58] LABS: Glucose,Whole Blood 286 mg/dL (70-110)
[2022-04-13 20:29] LABS: Glucose,Whole Blood 313 mg/dL (70-110)
[2022-04-13] MEDS: ATORVASTATIN 40 MG TAB PO SCH (20:41)
[2022-04-13] MEDS: MIRTAZAPINE 15 MG TAB PO SCH (20:41)
[2022-04-14] MEDS: LEVOTHYROXINE 50 MCG TAB PO SCH (06:47)
[2022-04-14] MEDS: PANTOPRAZOLE 40 MG TABLET PO SCH (06:47)
[2022-04-14 08:10] LABS: Glucose,Whole Blood 160 mg/dL (70-110)
[2022-04-14] MEDS: GABAPENTIN 300 MG CAP PO SCH ×2 (09:06→20:23)
[2022-04-14] MEDS: APIXABAN 5 MG TAB PO SCH ×2 (09:06→20:23)
[2022-04-14] MEDS: ISOSORBIDE MONONITRATE ER 30 MG TAB.ER.24H PO SCH (09:06)
[2022-04-14] MEDS: OXYBUTYNIN CHLORIDE 5 MG TAB PO SCH ×2 (09:07→17:03)
[2022-04-14] MEDS: INSULIN DETEMIR (LEVEMIR) 100 UNIT/ML SYR SQ SCH (09:07)
[2022-04-14] MEDS: INSULIN ASPART (NovoLOG) 100 UNIT/ML VIAL SQ SCH ×7 (09:07→20:23)
[2022-04-14] MEDS: METOPROLOL TARTRATE 50 MG TAB PO SCH ×3 (09:07→20:23)
[2022-04-14] MEDS: FUROSEMIDE 10 MG/ML 4 ML VIAL IV SCH (09:07)
[2022-04-14] MEDS: POTASSIUM CHLORIDE ER 20 MEQ TAB.ER PO SCH (09:07)
[2022-04-14 09:12] LABS: Calcium 8.5 mg/dL (8.4-10.2)
--- NOTE | 2022-04-14 10:54 | P.PN ---
Subjective This is a 72-year-old female past medical history of coronary artery disease status post prior 2 vessel bypass in 1996, hypertension, dyslipidemia, morbid obesity, type 2 diabetes, persistent atrial fibrillation on Eliquis. She follows with Dr. Weller. We have been following the patient secondary to congestive heart failure. Patient presents to the ER from [facility] secondary to hypoxia. Patient does endorse shortness of breath when moving to sit at the edge of the bed. She denies any symptoms of orthopnea or PND. She denies any changes to her medications or diet that she is aware of. She was brought to the emergency department for further evaluation. She was started on IV lasix, with 1.3L urine output. She denies any shortness breath, chest pain, palpitations, lightheadedness, dizziness. DIAGNOSTICS * Echocardiogram 04/07/2022-revealed EF of 50%, mild aortic regurgitation, mild aortic stenosis with peak gradient of 25 and a mean gradient of 14 mmHg, severe tricuspid regurgitation, moderate pulmonary hypertension. 04/14/2022 Patient seen and examined at bedside, no acute distress. She denies any shortness of breath or chest pain. I/Os 1.2L urine output over 24 hours. Weight stable. Lungs diminished bilaterally. Scr increased 1.2 today. Heart rates are controlled. Continues to be on IV Lasix PHYSICAL EXAMINATION Vitals reviewed CONSTITUTIONAL: No apparent distress. Obese. HEENT: Neck Supple. No JVD. CHEST EXAMINATION: Lungs are diminished bilaterally to auscultation. No chest wall tenderness is noted on palpation or with deep breathing. HEART EXAMINATION: Irregular rate and rhythm. S1, S2 heard. Systolic ejection mumur at base ABDOMEN: Soft, nontender. Positive bowel sounds. EXTREMITIES: 1+ bilateral lower extremity edema and no calf tenderness. SKIN: Redness right lower ankle NEUROLOGIC EXAMINATION: Patient is awake, lethargic and oriented x3. ASSESSMENT Acute on chronic heart failure with preserved ejection fraction Possible pneumonia Mild aortic stenosis Persistent atrial fibrillation, on Eliquis Coronary artery disease with prior 2 vessel bypass in 1996 Morbid obesity Hypertension Dyslipidemia Type 2 diabetes Pulmonary hypertension PLAN Transition to PO Lasix Monitor I's and O's, daily weights Monitor renal function and electrolytes Continue anticoagulation with Eliquis Continue home beta josh and statin Further recommendations based on clinical course Nurse Practitioner note has been reviewed, I agree with a documented findings and plan of care. Patient was seen and examined. Objective - Vital Signs Vital signs: Vital Signs Temp 97.6 F 04/13/22 20:00 Pulse 78 04/14/22 03:43 Resp 16 04/14/22 03:43 BP 113/56 04/14/22 03:43 Pulse Ox 95 04/14/22 03:43 FiO2 35 04/14/22 03:25 Intake & Output 04/13/22 04/14/22 04/14/22 18:59 06:59 18:59 Intake Total 236 Output Total 650 600 Balance -414 -600 Weight 148 kg 148 kg Intake: Oral 236 Output: Urine 650 600 Uretheral (Lynne) 600 Other: Voiding Method Indwelling Catheter Indwelling Catheter - Labs CBC & Chem 7: 04/12/22 11:57 04/14/22 07:45 Labs: Abnormal Lab Results - Last 24 Hours (Table) 04/13/22 04/13/22 04/13/22 Range/Units 08:59 11:37 12:07 Chloride (98-107) mmol/L Carbon Dioxide (22-30) mmol/L BUN (7-17) mg/dL Creatinine (0.52-1.04) mg/dL Glucose (74-99) mg/dL POC Glucose (mg/dL) 283 H 282 H (70-110) mg/dL Procalcitonin 0.10 H (0.02-0.09) ng/mL 04/13/22 04/13/22 04/14/22 Range/Units 16:43 20:27 07:45 Chloride 93 L (98-107) mmol/L Carbon Dioxide 42 H* (22-30) mmol/L BUN 41 H (7-17) mg/dL Creatinine 1.20 H (0.52-1.04) mg/dL Glucose 135 H (74-99) mg/dL POC Glucose (mg/dL) 286 H 313 H (70-110) mg/dL Procalcitonin (0.02-0.09) ng/mL 04/14/22 Range/Units 08:09 Chloride (98-107) mmol/L Carbon Dioxide (22-30) mmol/L BUN (7-17) mg/dL Creatinine (0.52-1.04) mg/dL Glucose (74-99) mg/dL POC Glucose (mg/dL) 160 H (70-110) mg/dL Procalcitonin (0.02-0.09) ng/mL
[2022-04-14] MEDS: LEVOFLOXACIN 250MG-D5W PMX 250 MG in DEXTROSE/WATER 1 50ML.BAG IVPB SCH (12:12)
[2022-04-14 12:15] LABS: Glucose,Whole Blood 189 mg/dL (70-110)
--- NOTE | 2022-04-14 12:38 | P.PN ---
Subjective Progress Note Date: 04/14/22 Principal diagnosis: Shortness of breath. Pulmonary consultation dated 04/13/2022. 72-year-old female seen in the emergency room, on April 12. She presented to the emergency room, from the nursing facility with low saturations. She apparently told the ER personnel she had no complaints, and felt fine. She does have a history of hypoxemic and hypercapnic respiratory failure, as well as congestive heart failure. She does wear oxygen at home. Currently, the patient is on BiPAP, with settings of 14/5 and 35%. She was recently inpatient between April 06 and April 10. She's getting saline at [facility]. She is also on IV Levaquin. She appears in no distress. She was sleeping when I first went into the room. White count 8.8, hemoglobin 7.5, hematocrit 24.8, and platelet count 229,000. D-dimer was 1.55. PT 12.8. Blood gases show a PaO2 of 37, pCO2 of 59, and a pH is 7.46. That was on room air. Sodium 140, potassium 4.1, chlorides 92, CO2 39, BUN 39, and creatinine 0.88. N-terminal proBNP was 7280. A nasal swab for coronavirus was negative. Influenza studies were also negative. A pro-calcitonin level was ordered by me. Chest x-ray was consistent in my opinion with CHF. CT angiogram showed no evidence of central pulmonary emboli. In addition, the computed tomography scan was consistent with CHF. Progress note dated 04/14/2022. The patient is seen today in room 363. Yesterday, she was on BiPAP. Currently, she is on 2 L. Her pro-calcitonin level is very low, so we will discontinue the Levaquin. She is getting saline, at 10 mL an hour. On BiPAP, her BiPAP settings are 14/5 and 35%. In fact, she is asking for the BiPAP as we speak. She is feeling better today than yesterday. CT angiogram was negative for pulmonary embolism. Sodium 141, potassium 4, chlorides 93, CO2 42, anion gap normal, BUN 41, and creatinine 1.20. Objective - Vital Signs Vital signs: Vital Signs Temp 98.1 F 04/14/22 08:00 Pulse 101 H 04/14/22 12:00 Resp 16 04/14/22 08:00 BP 132/64 04/14/22 12:00 Pulse Ox 98 04/14/22 12:00 FiO2 35 04/14/22 03:25 Intake & Output 04/13/22 04/14/22 04/14/22 18:59 06:59 18:59 Intake Total 236 180 Output Total 650 600 Balance -414 -600 180 Weight 148 kg 148 kg Intake: Oral 236 180 Output: Urine 650 600 Uretheral (Lynne) 600 Other: Voiding Method Indwelling Catheter Indwelling Catheter Indwelling Catheter - Exam No acute distress, sleeping, currently on 2 L nasal cannula. No audible wheezing, or respiratory distress. No use of accessory muscles. HEENT examination is grossly unremarkable. Neck supple. Full range of motion. No adenopathy thyromegaly or neck vein distention. Cardiovascular examination reveals regular rhythm rate. S1-S2 normal. No S3 or S4. No discernible murmur noted. Heart sounds are distant. Heart rate 100 bpm. Lungs reveal diffuse bilateral rhonchi, and bilateral crackles. Breath sounds equal bilaterally, but diminished throughout. No wheezes. Saturations are in 98% on 2 L. Abdomen soft bowel sounds are heard. No masses or tenderness. Extremities are intact. No cyanosis or clubbing. Mild to moderate edema is noted. Skin is without rash or lesion. Neurologic examination is brief but nonfocal. - Labs CBC & Chem 7: 04/12/22 11:57 04/14/22 07:45 Labs: Abnormal Lab Results - Last 24 Hours (Table) 04/13/22 04/13/22 04/13/22 Range/Units 08:59 16:43 20:27 Chloride (98-107) mmol/L Carbon Dioxide (22-30) mmol/L BUN (7-17) mg/dL Creatinine (0.52-1.04) mg/dL Glucose (74-99) mg/dL POC Glucose (mg/dL) 286 H 313 H (70-110) mg/dL Procalcitonin 0.10 H (0.02-0.09) ng/mL 04/14/22 04/14/22 04/14/22 Range/Units 07:45 08:09 12:14 Chloride 93 L (98-107) mmol/L Carbon Dioxide 42 H* (22-30) mmol/L BUN 41 H (7-17) mg/dL Creatinine 1.20 H (0.52-1.04) mg/dL Glucose 135 H (74-99) mg/dL POC Glucose (mg/dL) 160 H 189 H (70-110) mg/dL Procalcitonin (0.02-0.09) ng/mL Assessment and Plan Assessment: Acute on chronic hypoxemic and hypercapnic respiratory failure, most likely related to fluid overload/CHF. Doubt pneumonia, as pro-calcitonin level was quite low. History of atrial fibrillation. History of CAD, status post 2 vessel bypass grafting, 1996. History of diabetes mellitus. Hyperlipidemia. Hypertension. Sleep apnea syndrome. Hypothyroidism. History of diabetic retinopathy and neuropathy. History of gout. Stage III chronic kidney disease. Obesity. Multiple other medical problems and comorbidities. Plan: Plan dated 04/13/2022. A pro-calcitonin level has been ordered. The patient is currently on Levaquin. The patient most likely has fluid overload/CHF. Labs, x-rays, medications are reviewed. The patient's overall prognosis remains guarded. She was recently inpatient between April 06 and April 10 with a similar episode. We will continue to follow make recommendations along the way. Prognosis is not good. If the pro-calcitonin level comes back low, antibiotics can be discontinued. Plan dated 04/14/2022. The patient is feeling better today. She wants to go back on BiPAP after lunch. Currently on 2 L with saturations of 98%. The pro-calcitonin level was low, and the patient's Levaquin will be discontinued. Labs, x-rays, and medications are all reviewed. The patient is getting diuretics as per cardiology. No additional recommendations are made. Pneumonia seems much less likely. We will continue to follow make recommendations along the way. Time with Patient: Less than 30
--- NOTE | 2022-04-14 13:09 | P.PN ---
Subjective Progress Note Date: 04/14/22 H&P Date: 04/14/22 This is a 72-year-old female admitted from [facility] subacute rehab with acute on chronic hypoxic respiratory failure, multifactorial, wears 2.5 L nasal cannula O2 at home. Discharged last week to subacute rehab for acute on chronic CHF with increase in home dose of oral diuretics/Lasix as per cardiology. Recent COVID-19 pneumonia January 2022 with chronic fibrotic changes secondary to the Covid infection as per pulmonary's evaluation on prior admission.patient also received a couple units packed RBCs on last admission for acute on chronic anemia with negative Hemoccult,currently stable at 7.5. Maintaining O2 sats of 100% on 4 L nasal cannula, titrated down, currently maintaining O2 sats of 96% on 2 L nasal cannula (baseline). Denies chest pain, palpitations or shortness of breath. Denies cough. Denies lightheadedness dizziness or focal deficits. Consuming 75% of breakfast. Denies nausea, vomiting or diarrhea. No abdominal pain. Renal function stable. Electrolytes within normal limits. Right lower extremity cellulitis, wound cultures of last week reporting MSSA. EKG reported atrial fibrillation with mild tachycardia, low 100s, right bundle branch block, troponin 0.025, proBNP 7280. Anticoagulated on Eliquis. Chest x-ray reporting cardiomegaly, mild pulmonary vascular congestion. D-dimer 1.55. Chest CTA reported no PE with limited evaluation of segmental and subsegmental branches, peripheral groundglass pulmonary opacities with reactive mediastinal lymphadenopathy in a patient with recent Covid infection , cardiomegaly with pulmonary vascular congestion and trace bilateral pleural effusions, suspected underlying component of CHF .Coronavirus, influenza type A and type B not detected. Diuresing well on Lasix IV push with 24 hour I&O reflecting a negative fluid balance. Hyperglycemic. IV push diuretics initiated, continues on beta josh 04/14/2022 diuresing well on Lasix IV push 24-hour I&O reflecting a negative f luid balance, renal function worsening. Diuretics converted to oral. Maintained on Levaquin, pro-calcitonin 0.1. Afebrile. Telemetry controlled A. fib. Maintaining O2 sats in the high 90s on 2 L nasal cannula. Objective - Vital Signs Vital signs: Vital Signs Temp 98.1 F 04/14/22 08:00 Pulse 94 04/14/22 08:00 Resp 16 04/14/22 08:00 BP 119/59 04/14/22 08:00 Pulse Ox 96 04/14/22 08:00 FiO2 35 04/14/22 03:25 Intake & Output 04/13/22 04/14/22 04/14/22 18:59 06:59 18:59 Intake Total 236 Output Total 650 600 Balance -414 -600 Weight 148 kg 148 kg Intake: Oral 236 Output: Urine 650 600 Uretheral (Lynne) 600 Other: Voiding Method Indwelling Catheter Indwelling Catheter Indwelling Catheter - Exam PHYSICAL EXAM: VITAL SIGNS: [As above] GENERAL: Morbidly obese , alert and oriented 3, sitting up in bed , no acute distress. HEENT: Conjunctivae normal. eyes normal. Oral mucosa moist NECK: Supple, No JVD. CARDIOVASCULAR: S1, S2 regular,irregular. Systolic murmur RESPIRATION: Unlabored, Bilateral air entry, fine bibasilar crackles ABDOMEN: Soft, obese, nontender . No guarding. no masses palpable. Bowel sounds heard. LEGS:Chronic venous stasis with bilateral lower extremity edema, right lower extremity Jam wrapped ,no clubbing, no cyanosis.No calf tenderness. NERVOUS SYSTEM: Cranial N 2-12 grossly normal. No focal deficits. Skin: Warm and dry, no rash. - Labs CBC & Chem 7: 04/12/22 11:57 04/14/22 07:45 Labs: Abnormal Lab Results - Last 24 Hours (Table) 04/13/22 04/13/22 04/13/22 Range/Units 08:59 11:37 12:07 Chloride (98-107) mmol/L Carbon Dioxide (22-30) mmol/L BUN (7-17) mg/dL Creatinine (0.52-1.04) mg/dL Glucose (74-99) mg/dL POC Glucose (mg/dL) 283 H 282 H (70-110) mg/dL Procalcitonin 0.10 H (0.02-0.09) ng/mL 04/13/22 04/13/22 04/14/22 Range/Units 16:43 20:27 07:45 Chloride 93 L (98-107) mmol/L Carbon Dioxide 42 H* (22-30) mmol/L BUN 41 H (7-17) mg/dL Creatinine 1.20 H (0.52-1.04) mg/dL Glucose 135 H (74-99) mg/dL POC Glucose (mg/dL) 286 H 313 H (70-110) mg/dL Procalcitonin (0.02-0.09) ng/mL 04/14/22 Range/Units 08:09 Chloride (98-107) mmol/L Carbon Dioxide (22-30) mmol/L BUN (7-17) mg/dL Creatinine (0.52-1.04) mg/dL Glucose (74-99) mg/dL POC Glucose (mg/dL) 160 H (70-110) mg/dL Procalcitonin (0.02-0.09) ng/mL Assessment and Plan Assessment: Acute on chronic congestive heart failure, diastolic dysfunction, EF 50%, doubt pneumonia, pro-calcitonin 0.1. Recent COVID-19 pneumonia January 2022 with chronic fibrotic changes secondary to the Covid infection as per pulmonary Chronic anemia Acute on chronic hypoxic respiratory failure, secondary to all the above, wears 2.5 L NC O2 at home Moderate pulmonary hypertension Chronic Bilateral lower extremity cellulitis, MSSA on prior wound cultures of the last admission Chronic atrial fibrillation, newly diagnosed on prior visit, January 2022 CAD, history of CABG Hypertension hyperlipidemia Diabetes mellitus, hemoglobin A1c 6.6 Hypothyroidism History of bariatric surgery Morbid obesity, BMI 59.7 Plan: Continue on current medication regime ,monitoring and symptomatic treatment. Transition to oral Lasix, close monitoring of renal function with repeat labs ordered for a.m. Antibiotics discontinued as per pulmonary.Keflex resumed for cellulitis .Levemir added to med regimen, close monitoring of Accu- Cheks. Discharge planning in progress for return to subacute rehab possibly tomorrow pending clearance from pulmonary and cardiology. The impression and plan of care has been dictated as directed. : I performed a history and examination of this patient, discussed the same with the dictator. I agree with the dictator's note ,documented as a scribe. Any additional findings or plans will be noted.
[2022-04-14] MEDS ORDERED: CEPHALEXIN 500 MG CAP PO SCH (16:00)
[2022-04-14 16:51] LABS: Glucose,Whole Blood 245 mg/dL (70-110)
[2022-04-14] MEDS: CEPHALEXIN 500 MG CAP PO SCH ×2 (17:02→20:23)
[2022-04-14] MEDS: FUROSEMIDE 40 MG TAB PO SCH (17:03)
[2022-04-14 20:15] LABS: Glucose,Whole Blood 240 mg/dL (70-110)
[2022-04-14] MEDS: ATORVASTATIN 40 MG TAB PO SCH (20:23)
[2022-04-14] MEDS: MIRTAZAPINE 15 MG TAB PO SCH (20:23)
[2022-04-15] MEDS: PANTOPRAZOLE 40 MG TABLET PO SCH (06:19)
[2022-04-15] MEDS: LEVOTHYROXINE 50 MCG TAB PO SCH (06:19)
[2022-04-15] MEDS: CEPHALEXIN 500 MG CAP PO SCH ×3 (06:19→23:43)
[2022-04-15] MEDS: INSULIN DETEMIR (LEVEMIR) 100 UNIT/ML SYR SQ SCH (07:02)
[2022-04-15] MEDS: INSULIN ASPART (NovoLOG) 100 UNIT/ML VIAL SQ SCH ×7 (07:02→21:07)
[2022-04-15 07:04] LABS: Glucose,Whole Blood 210 mg/dL (70-110)
[2022-04-15 08:30] LABS: Anisocytosis Slight; Basophils % (A) 0 %; Eosinophils # (A) 0.3 k/uL (0-0.7); Eosinophils % (A) 4 %; HCT 25.3 % (34.0-46.0); HGB 7.6 gm/dL (11.4-16.0); Hypochromasia Marked; Lymphocytes # (A) 0.8 k/uL (1.0-4.8); Lymphocytes % (A) 11 %; MCH 27.4 pg (25.0-35.0); MCHC 30.2 g/dL (31.0-37.0); MCV 90.7 fL (80.0-100.0); Monocytes # (A) 0.4 k/uL (0-1.0); Monocytes % (A) 6 %; Neutrophils # (A) 5.3 k/uL (1.3-7.7); Neutrophils % (A) 78 %; Platelet Count 239 k/uL (150-450); RBC 2.78 m/uL (3.80-5.40); RDW 16.8 % (11.5-15.5); WBC 6.8 k/uL (3.8-10.6)
[2022-04-15 08:40] LABS: Calcium 8.6 mg/dL (8.4-10.2); Potassium 4.2 mmol/L (3.5-5.1)
[2022-04-15] MEDS: POTASSIUM CHLORIDE ER 20 MEQ TAB.ER PO SCH (08:47)
[2022-04-15] MEDS: APIXABAN 5 MG TAB PO SCH ×2 (08:47→21:07)
[2022-04-15] MEDS: METOPROLOL TARTRATE 50 MG TAB PO SCH ×3 (08:47→21:06)
[2022-04-15] MEDS: GABAPENTIN 300 MG CAP PO SCH ×2 (08:47→21:06)
[2022-04-15] MEDS: OXYBUTYNIN CHLORIDE 5 MG TAB PO SCH ×2 (08:47→17:10)
[2022-04-15] MEDS: FUROSEMIDE 40 MG TAB PO SCH ×2 (08:47→17:10)
[2022-04-15] MEDS: ISOSORBIDE MONONITRATE ER 30 MG TAB.ER.24H PO SCH (08:47)
--- NOTE | 2022-04-15 11:03 | P.NPCON ---
History of Present Illness - Reason for Consult acute renal failure - History of Present Illness Reason for consultation: Acute kidney injury History of present illness: Patient is a 72-year-old female seen in consultation for acute kidney injury. Patient presented to the hospital on 04/14/2022 due to shortness of breath and hypoxia. Patient came from an extended care facility. Patient has a history of diastolic CHF with mild aortic stenosis, severe tricuspid regurgitation and moderate pulmonary hypertension. She has been receiving IV Lasix and is now on oral Lasix 40 mg twice daily. Patient has long-standing history of diabetes and also has history of CABG. She denies use of nonsteroidals. Denies hematuria or dysuria. She currently is a Lynne catheter and is nonoliguric. Urine output d ocumented as 2 L dated for today. Patient states she wears 2.5 L oxygen outpatient. She is noted to be alkalotic with bicarb level of 42 today. Denies vomiting or diarrhea. Patient states her edema has improved since admission. Denies fever or chills. No cough. Blood pressure stable. Vital signs are stable. General: Awake. No acute distress. HEENT: Head exam is unremarkable. On nasal cannula. LUNGS: Breath sounds decreased. HEART: Rate and Rhythm are regular. ABDOMEN: Soft, obese. EXTREMITITES: 1+ edema. Lower extremities wrapped. Past Medical History Past Medical History: Atrial Fibrillation, Coronary Artery Disease (CAD), Diabetes Mellitus, Eye Disorder, Hyperlipidemia, Hypertension, Osteoarthritis (OA), Pneumonia, Renal Disease, Sleep Apnea/CPAP/BIPAP, Thyroid Disorder Additional Past Medical History / Comment(s): Pt recently admitted to [facility] on 02/12/22 with covic pneumonia/sepsis, acute hypoxic respiratory failure/now on home oxygen ATC, new A fib with RVR. Other hx: IDDM type II, neuropathy bilateral feet, L eye retinal bleed/lasik eye surgery, R eye cataract, bilateral eye macular degeneration/gets injections/poor vision, CKD stage III, anemia, UTI/sepsis, bilateral leg lymphedema/currently has "rash" R lower leg/one spot on L lower leg, FLORES/does not have cpap machine at this time, diverticulitis, gout, chronic back pain, rheumatic fever, hypothyroid. History of Any Multi-Drug Resistant Organisms: None Reported Past Surgical History: Bariatric Surgery, Section, Cholecystectomy, Coronary Bypass/CABG, Heart Catheterization, Hysterectomy, Tonsillectomy Additional Past Surgical History / Comment(s): A 2 vessel CABG in 1996, bilateral carpal tunnel release, lap band, L eye laser surgery, Past Anesthesia/Blood Transfusion Reactions: No Reported Reaction Past Psychological History: Depression Additional Psychological History / Comment(s): Pt resides with her son only now, her brother from [employer] [facility] 02/27/22. Pt does not drive d/t vision problems, her son takes her to [employer]. She states she is able to manage her own medictions. She uses no assistive device. She states she has home oxygen now. She has no home care. They own a dog. Smoking Status: Never smoker Past Alcohol Use History: None Reported Additional Past Alcohol Use History / Comment(s): Patient is a lifelong nonsmoker. Past Drug Use History: None Reported - Past Family History Father Family Medical History: Cancer, Coronary Artery Disease (CAD), Diabetes Mellitus Additional Family Medical History / Comment(s): Prostate cancer Mother Family Medical History: Cancer Additional Family Medical History / Comment(s): Bone cancer. Medications and Allergies Home Medications Medication Instructions Recorded Confirmed Type Atorvastatin [Lipitor] 40 mg PO HS@209908/10/16 04/12/22 History Isosorbide Mononitrate [Isosorbide 30 mg PO DAILY@89908/10/16 04/12/22 History Mononitrate ER] Levothyroxine Sodium [Tirosint] 50 mcg PO DAILY@0600 08/10/16 04/12/22 History Oxybutynin Chloride 5 mg PO BID@0900,1700 08/10/16 04/12/22 History Potassium Chloride [Klor-Con 10 ER] 20 meq PO DAILY@0900 08/10/16 04/12/22 History Furosemide [Lasix] 40 mg PO BID@0900,1600 tab 04/10/22 04/12/22 Rx Apixaban [Eliquis] 5 mg PO BID@0900,209904/12/22 04/12/22 History Cephalexin [Keflex] 500 mg PO TID@06,14,04/12/22 04/12/22 History Gabapentin [Neurontin] 300 mg PO BID@0900,209904/12/22 04/12/22 History INSULIN ASPART (NovoLOG) [NovoLOG 5 unit SQ TID@,16 PRN 04/12/22 04/12/22 History (formulary)] INSULIN ASPART (NovoLOG) [NovoLOG See Protocol SQ QID@,,,04/12/22 04/12/22 History (formulary)] Metoprolol Tartrate [Lopressor] 50 mg PO TID@,,04/12/22 04/12/22 History Mirtazapine [Remeron] 15 mg PO HS@2100 04/12/22 04/12/22 History Allergies Allergy/AdvReac Type Severity Reaction Status Date / Time ibuprofen [From Motrin] Allergy Rash/Hives Verified 04/12/22 15:26 Penicillins Allergy Anaphylaxis Verified 04/12/22 15:26 Physical Exam Vitals: Vital Signs Temp Pulse Pulse Resp BP Pulse Ox FiO2 04/15/22 08:40 16 04/15/22 07:50 98.2 F 94 20 143/70 04/15/22 07:21 95 04/15/22 04:00 82 18 126/71 96 35 04/15/22 03:35 35 04/15/22 02:00 82 24 04/14/22 23:49 35 04/14/22 23:23 82 24 125/61 98 35 04/14/22 20:00 98 F 87 18 122/58 97 04/14/22 19:25 98 04/14/22 16:00 89 124/55 98 35 04/14/22 15:45 35 04/14/22 14:00 101 H 16 04/14/22 12:00 101 H 132/64 98 Intake and Output 04/14/22 04/15/22 04/15/22 22:59 06:59 14:59 Intake Total 420 150 Output Total 1150 900 300 Balance -730 -900 -150 Intake: Oral 420 150 Output: Urine 1150 900 300 Uretheral (Lynne) 1150 Other: Voiding Method Indwelling Catheter Indwelling Catheter Indwelling Catheter Weight 146 kg Results - Lab Results Most recent lab results ABG pH 7.46 (7.35-7.45) H 04/12/22 12:28 ABG pCO2 59 mmHg (35-45) H 04/12/22 12:28 ABG pO2 37 mmHg (83-108) L* 04/12/22 12:28 ABG HCO3 42 mmol/L (21-25) H* 04/12/22 12:28 ABG O2 Saturation 71.7 % (94-97) L 04/12/22 12:28 Calcium 8.6 mg/dL (8.4-10.2) 04/15/22 07:27 04/15/22 07:27 04/15/22 07:27 Assessment and Plan Plan: Assessment: 1. Acute kidney injury mostly prerenal secondary to cardiorenal syndrome. Baseline creatinine near 1 and is up to 1.45 today. 2. Metabolic alkalosis secondary to diuresis. 3. Diabetes mellitus. 4. Acute on chronic diastolic CHF with mild aortic stenosis, severe tricuspid regurgitation and pulmonary hypertension. 5. Volume overload. 6. Anemia. Rule out iron deficiency. Plan: Maintain oral Lasix. Add Diamox. Check urinalysis. Check renal ultrasound. Check iron studies. Continue to monitor renal function and urine output. Thank you for the consultation. I will continue to follow the patient with you during her hospital stay.
--- NOTE | 2022-04-15 11:14 | P.PN ---
Subjective Progress Note Date: 04/15/22 Principal diagnosis: Shortness of breath. Pulmonary consultation dated 04/13/2022. 72-year-old female seen in the emergency room, on April 12. She presented to the emergency room, from the nursing facility with low saturations. She apparently told the ER personnel she had no complaints, and felt fine. She does have a history of hypoxemic and hypercapnic respiratory failure, as well as congestive heart failure. She does wear oxygen at home. Currently, the patient is on BiPAP, with settings of 14/5 and 35%. She was recently inpatient between April 06 and April 10. She's getting saline at KVO. She is also on IV Levaquin. She appears in no distress. She was sleeping when I first went into the room. White count 8.8, hemoglobin 7.5, hematocrit 24.8, and platelet count 229,000. D-dimer was 1.55. PT 12.8. Blood gases show a PaO2 of 37, pCO2 of 59, and a pH is 7.46. That was on room air. Sodium 140, potassium 4.1, chlorides 92, CO2 39, BUN 39, and creatinine 0.88. N-terminal proBNP was 7280. A nasal swab for coronavirus was negative. Influenza studies were also negative. A pro-calcitonin level was ordered by me. Chest x-ray was consistent in my opinion with CHF. CT angiogram showed no evidence of central pulmonary emboli. In addition, the computed tomography scan was consistent with CHF. Progress note dated 04/14/2022. The patient is seen today in room 363. Yesterday, she was on BiPAP. Currently, she is on 2 L. Her pro-calcitonin level is very low, so we will discontinue the Levaquin. She is getting saline, at 10 mL an hour. On BiPAP, her BiPAP settings are 14/5 and 35%. In fact, she is asking for the BiPAP as we speak. She is feeling better today than yesterday. CT angiogram was negative for pulmonary embolism. Sodium 141, potassium 4, chlorides 93, CO2 42, anion gap normal, BUN 41, and creatinine 1.20. Progress note dated 04/15/2022. The patient is again seen in room 363. Like yesterday, she was sleepy, and very lethargic. She's currently on oxygen at 2 L. She's not receiving any IV fluids. The BiPAP device is in the room and I suspect that she has used BiPAP on and off since yesterday. Laboratory data today includes a white count of 6.8, hemoglobin 7.6, hematocrit 25.3, and a platelet count of 239,000. Sodium 140, potassium 4.2, chlorides 92, CO2 42, BUN 42, and creatinine 1.45. Objective - Vital Signs Vital signs: Vital Signs Temp 98.2 F 04/15/22 07:50 Pulse 88 04/15/22 08:00 Resp 16 04/15/22 08:40 BP 143/70 04/15/22 07:50 Pulse Ox 95 04/15/22 07:21 FiO2 35 04/15/22 04:00 Intake & Output 04/14/22 04/15/22 04/15/22 18:59 06:59 18:59 Intake Total 600 150 Output Total 1150 900 300 Balance -550 -900 -150 Weight 146 kg Intake: Oral 600 150 Output: Urine 1150 900 300 Uretheral (Lynne) 1150 Other: Voiding Method Indwelling Catheter Indwelling Catheter Indwelling Catheter - Exam No acute distress, sleeping, currently on 2 L nasal cannula. No audible wheezing, or respiratory distress. No use of accessory muscles. HEENT examination is grossly unremarkable. Neck supple. Full range of motion. No adenopathy thyromegaly or neck vein distention. Cardiovascular examination reveals regular rhythm rate. S1-S2 normal. No S3 or S4. No discernible murmur noted. Heart sounds are distant. Heart rate 94 bpm. Lungs reveal diffuse bilateral rhonchi, and bilateral crackles. Breath sounds equal bilaterally, but diminished throughout. No wheezes. Saturations are in 95 % on 2 L. Abdomen soft bowel sounds are heard. No masses or tenderness. Extremities are intact. No cyanosis or clubbing. Mild to moderate edema is noted. Skin is without rash or lesion. Neurologic examination is brief but nonfocal. - Labs CBC & Chem 7: 04/15/22 07:27 04/15/22 07:27 Labs: Abnormal Lab Results - Last 24 Hours (Table) 04/14/22 04/14/22 04/14/22 Range/Units 12:14 16:15 20:14 RBC (3.80-5.40) m/uL Hgb (11.4-16.0) gm/dL Hct (34.0-46.0) % MCHC (31.0-37.0) g/dL RDW (11.5-15.5) % Lymphocytes # (1.0-4.8) k/uL Chloride (98-107) mmol/L Carbon Dioxide (22-30) mmol/L BUN (7-17) mg/dL Creatinine (0.52-1.04) mg/dL Glucose (74-99) mg/dL POC Glucose (mg/dL) 189 H 245 H 240 H (70-110) mg/dL 04/15/22 04/15/22 04/15/22 Range/Units 06:59 07:27 07:27 RBC 2.78 L (3.80-5.40) m/uL Hgb 7.6 L (11.4-16.0) gm/dL Hct 25.3 L (34.0-46.0) % MCHC 30.2 L (31.0-37.0) g/dL RDW 16.8 H (11.5-15.5) % Lymphocytes # 0.8 L (1.0-4.8) k/uL Chloride 92 L (98-107) mmol/L Carbon Dioxide 42 H* (22-30) mmol/L BUN 42 H (7-17) mg/dL Creatinine 1.45 H (0.52-1.04) mg/dL Glucose 147 H (74-99) mg/dL POC Glucose (mg/dL) 210 H (70-110) mg/dL Assessment and Plan Assessment: Acute on chronic hypoxemic and hypercapnic respiratory failure, most likely related to fluid overload/CHF. Doubt pneumonia, as pro-calcitonin level was quite low. History of atrial fibrillation. History of CAD, status post 2 vessel bypass grafting, 1996. History of diabetes mellitus. Hyperlipidemia. Hypertension. Sleep apnea syndrome. Hypothyroidism. History of diabetic retinopathy and neuropathy. History of gout. Stage III chronic kidney disease. Obesity. Multiple other medical problems and comorbidities. Plan: Plan dated 04/13/2022. A pro-calcitonin level has been ordered. The patient is currently on Levaquin. The patient most likely has fluid overload/CHF. Labs, x-rays, medications are reviewed. The patient's overall prognosis remains guarded. She was recently inpatient between April 06 and April 10 with a similar episode. We will continue to follow make recommendations along the way. Prognosis is not good. If the pro-calcitonin level comes back low, antibiotics can be discontinued. Plan dated 04/14/2022. The patient is feeling better today. She wants to go back on BiPAP after lunch. Currently on 2 L with saturations of 98%. The pro-calcitonin level was low, and the patient's Levaquin will be discontinued. Labs, x-rays, and medications are all reviewed. The patient is getting diuretics as per cardiology. No additional recommendations are made. Pneumonia seems much less likely. We will continue to follow make recommendations along the way. Progress note dated 04/15/2022. The patient remains on appropriate medications. The patient is receiving a factor X a inhibitor, as well as Lipitor, Lasix, and Keflex. The patient is also receiving her thyroid medication, as well as GI prophylaxis. Labs, x-rays, and medications are reviewed. The patient will continue to use BiPAP intermittently. No additional recommendations are made. Prognosis is very guarded. Time with Patient: Less than 30
--- NOTE | 2022-04-15 11:23 | P.PN ---
Subjective This is a 72-year-old female past medical history of coronary artery disease status post prior 2 vessel bypass in 1996, hypertension, dyslipidemia, morbid obesity, type 2 diabetes, persistent atrial fibrillation on Eliquis. She follows with Dr. Weller. We have been following the patient secondary to congestive heart failure. Patient presents to the ER from [facility] secondary to hypoxia. Patient does endorse shortness of breath when moving to sit at the edge of the bed. She denies any symptoms of orthopnea or PND. She denies any changes to her medications or diet that she is aware of. She was brought to the emergency department for further evaluation. She was started on IV lasix, with 1.3L urine output. She denies any shortness breath, chest pain, palpitations, lightheadedness, dizziness. DIAGNOSTICS * Echocardiogram 04/07/2022-revealed EF of 50%, mild aortic regurgitation, mild aortic stenosis with peak gradient of 25 and a mean gradient of 14 mmHg, severe tricuspid regurgitation, moderate pulmonary hypertension. 04/15/2022 Patient seen and examined at bedside, no acute distress. She denies any shortness of breath or chest pain. I/Os -1450mL urine output over 24 hours. Weight has decreased Lungs diminished bilaterally. Scr worsened today at 1.45today. Heart rates are controlled. She was transitioned to PO Lasix yesterday PHYSICAL EXAMINATION Vitals reviewed CONSTITUTIONAL: No apparent distress. Obese. HEENT: Neck Supple. No JVD. CHEST EXAMINATION: Lungs are diminished bilaterally to auscultation. No chest wall tenderness is noted on palpation or with deep breathing. HEART EXAMINATION: Irregular rate and rhythm. S1, S2 heard. Systolic ejection mumur at base ABDOMEN: Soft, nontender. Positive bowel sounds. EXTREMITIES: mild to moderate non-pitting bilateral lower extremity edema and no calf tenderness. SKIN: Redness right lower ankle NEUROLOGIC EXAMINATION: Patient is awake, lethargic and oriented x3. ASSESSMENT Acute on chronic heart failure with preserved ejection fraction Possible pneumonia Mild aortic stenosis Persistent atrial fibrillation, on Eliquis Coronary artery disease with prior 2 vessel bypass in 1996 Morbid obesity Hypertension Dyslipidemia Type 2 diabetes Pulmonary hypertension PLAN Hold Lasix at this time Monitor I's and O's, daily weights Monitor renal function and electrolytes Continue anticoagulation with Eliquis Continue home beta josh and statin No further changes from a cardiology perspective Further recommendations based on clinical course Nurse Practitioner note has been reviewed, I agree with a documented findings and plan of care. Patient was seen and examined. Objective - Vital Signs Vital signs: Vital Signs Temp 98.2 F 04/15/22 07:50 Pulse 88 04/15/22 08:00 Resp 16 04/15/22 08:40 BP 143/70 04/15/22 07:50 Pulse Ox 95 04/15/22 07:21 FiO2 35 04/15/22 04:00 Intake & Output 04/14/22 04/15/22 04/15/22 18:59 06:59 18:59 Intake Total 600 150 Output Total 1150 900 300 Balance -550 -900 -150 Weight 146 kg Intake: Oral 600 150 Output: Urine 1150 900 300 Uretheral (Lynne) 1150 Other: Voiding Method Indwelling Catheter Indwelling Catheter Indwelling Catheter - Labs CBC & Chem 7: 04/15/22 07:27 04/15/22 07:27 Labs: Abnormal Lab Results - Last 24 Hours (Table) 04/14/22 04/14/22 04/14/22 Range/Units 12:14 16:15 20:14 RBC (3.80-5.40) m/uL Hgb (11.4-16.0) gm/dL Hct (34.0-46.0) % MCHC (31.0-37.0) g/dL RDW (11.5-15.5) % Lymphocytes # (1.0-4.8) k/uL Chloride (98-107) mmol/L Carbon Dioxide (22-30) mmol/L BUN (7-17) mg/dL Creatinine (0.52-1.04) mg/dL Glucose (74-99) mg/dL POC Glucose (mg/dL) 189 H 245 H 240 H (70-110) mg/dL 04/15/22 04/15/22 04/15/22 Range/Units 06:59 07:27 07:27 RBC 2.78 L (3.80-5.40) m/uL Hgb 7.6 L (11.4-16.0) gm/dL Hct 25.3 L (34.0-46.0) % MCHC 30.2 L (31.0-37.0) g/dL RDW 16.8 H (11.5-15.5) % Lymphocytes # 0.8 L (1.0-4.8) k/uL Chloride 92 L (98-107) mmol/L Carbon Dioxide 42 H* (22-30) mmol/L BUN 42 H (7-17) mg/dL Creatinine 1.45 H (0.52-1.04) mg/dL Glucose 147 H (74-99) mg/dL POC Glucose (mg/dL) 210 H (70-110) mg/dL
[2022-04-15 12:02] LABS: Glucose,Whole Blood 313 mg/dL (70-110)
[2022-04-15] MEDS: acetaZOLAMIDE 250 MG TAB PO SCH ×2 (12:26→21:06)
[2022-04-15] MEDS ORDERED: INSULIN DETEMIR (LEVEMIR) 100 UNIT/ML SYR SQ ONE (12:55)
--- NOTE | 2022-04-15 13:18 | P.PN ---
Subjective Progress Note Date: 04/15/22 H&P Date: 04/14/22 This is a 72-year-old female admitted from [facility] subacute rehab with acute on chronic hypoxic respiratory failure, multifactorial, wears 2.5 L nasal cannula O2 at home. Discharged last week to subacute rehab for acute on chronic CHF with increase in home dose of oral diuretics/Lasix as per cardiology. Recent COVID-19 pneumonia January 2022 with chronic fibrotic changes secondary to the Covid infection as per pulmonary's evaluation on prior admission.patient also received a couple units packed RBCs on last admission for acute on chronic anemia with negative Hemoccult,currently stable at 7.5. Maintaining O2 sats of 100% on 4 L nasal cannula, titrated down, currently maintaining O2 sats of 96% on 2 L nasal cannula (baseline). Denies chest pain, palpitations or shortness of breath. Denies cough. Denies lightheadedness dizziness or focal deficits. Consuming 75% of breakfast. Denies nausea, vomiting or diarrhea. No abdominal pain. Renal function stable. Electrolytes within normal limits. Right lower extremity cellulitis, wound cultures of last week reporting MSSA. EKG reported atrial fibrillation with mild tachycardia, low 100s, right bundle branch block, troponin 0.025, proBNP 7280. Anticoagulated on Eliquis. Chest x-ray reporting cardiomegaly, mild pulmonary vascular congestion. D-dimer 1.55. Chest CTA reported no PE with limited evaluation of segmental and subsegmental branches, peripheral groundglass pulmonary opacities with reactive mediastinal lymphadenopathy in a patient with recent Covid infection , cardiomegaly with pulmonary vascular congestion and trace bilateral pleural effusions, suspected underlying component of CHF .Coronavirus, influenza type A and type B not detected. Diuresing well on Lasix IV push with 24 hour I&O reflecting a negative fluid balance. Hyperglycemic. IV push diuretics initiated, continues on beta josh 04/14/2022 diuresing well on Lasix IV push 24-hour I&O reflecting a negative f luid balance, renal function worsening. Diuretics converted to oral. Maintained on Levaquin, pro-calcitonin 0.1. Afebrile. Telemetry controlled A. fib. Maintaining O2 sats in the high 90s on 2 L nasal cannula. 04/15/2022 BiPAP during the night and after lunch yesterday. Currently maintaining O2 sats in the high 90s on 2 L nasal cannula. Renal function worsening yesterday, transitioned to oral Lasix , creatinine higher today, 1.45. Afebrile, normal WBC. Objective - Vital Signs Vital signs: Vital Signs Temp 98.2 F 04/15/22 07:50 Pulse 94 04/15/22 07:50 Resp 16 04/15/22 08:40 BP 143/70 04/15/22 07:50 Pulse Ox 95 04/15/22 07:21 FiO2 35 04/15/22 04:00 Intake & Output 04/14/22 04/15/22 04/15/22 18:59 06:59 18:59 Intake Total 600 150 Output Total 1150 900 300 Balance -550 -900 -150 Weight 146 kg Intake: Oral 600 150 Output: Urine 1150 900 300 Uretheral (Lynne) 1150 Other: Voiding Method Indwelling Catheter Indwelling Catheter Indwelling Catheter - Exam PHYSICAL EXAM: VITAL SIGNS: [As above] GENERAL: Morbidly obese , alert and oriented 3, sitting up in bed , no acute distress. HEENT: Conjunctivae normal. eyes normal. Oral mucosa moist NECK: Supple, No JVD. CARDIOVASCULAR: S1, S2 regular,irregular. Systolic murmur RESPIRATION: Unlabored, Bilateral air entry, fine bibasilar crackles ABDOMEN: Soft, obese, nontender . No guarding. no masses palpable. Bowel sounds heard. LEGS:Chronic venous stasis with bilateral lower extremity edema, right lower extremity Jam wrap clean dry and intact,no clubbing, no cyanosis.No calf tenderness. NERVOUS SYSTEM: Cranial N 2-12 grossly normal. No focal deficits. Skin: Warm and dry, no rash. - Labs CBC & Chem 7: 04/15/22 07:27 04/15/22 07:27 Labs: Abnormal Lab Results - Last 24 Hours (Table) 04/14/22 04/14/22 04/14/22 Range/Units 12:14 16:15 20:14 RBC (3.80-5.40) m/uL Hgb (11.4-16.0) gm/dL Hct (34.0-46.0) % MCHC (31.0-37.0) g/dL RDW (11.5-15.5) % Lymphocytes # (1.0-4.8) k/uL Chloride (98-107) mmol/L Carbon Dioxide (22-30) mmol/L BUN (7-17) mg/dL Creatinine (0.52-1.04) mg/dL Glucose (74-99) mg/dL POC Glucose (mg/dL) 189 H 245 H 240 H (70-110) mg/dL 04/15/22 04/15/22 04/15/22 Range/Units 06:59 07:27 07:27 RBC 2.78 L (3.80-5.40) m/uL Hgb 7.6 L (11.4-16.0) gm/dL Hct 25.3 L (34.0-46.0) % MCHC 30.2 L (31.0-37.0) g/dL RDW 16.8 H (11.5-15.5) % Lymphocytes # 0.8 L (1.0-4.8) k/uL Chloride 92 L (98-107) mmol/L Carbon Dioxide 42 H* (22-30) mmol/L BUN 42 H (7-17) mg/dL Creatinine 1.45 H (0.52-1.04) mg/dL Glucose 147 H (74-99) mg/dL POC Glucose (mg/dL) 210 H (70-110) mg/dL Assessment and Plan Assessment: Acute on chronic congestive heart failure, diastolic dysfunction, EF 50%, doubt pneumonia, pro-calcitonin 0.1. Recent COVID-19 pneumonia January 2022 with chronic fibrotic changes secondary to the Covid infection as per pulmonary Chronic anemia Acute on chronic hypoxic respiratory failure, secondary to all the above, wears 2.5 L NC O2 at home Moderate pulmonary hypertension Chronic Bilateral lower extremity cellulitis, MSSA on prior wound cultures of the last admission Chronic atrial fibrillation, newly diagnosed on prior visit, January 2022 CAD, history of CABG Hypertension hyperlipidemia Diabetes mellitus, hemoglobin A1c 6.6 Hypothyroidism History of bariatric surgery Morbid obesity, BMI 59.7 Plan: Continue on current medication regime ,monitoring and symptomatic treatment. Continues worsening renal function, transitioned to oral Lasix yesterday, placed on hold.nephrology consulted. close monitoring of renal function with repeat labs ordered for a.m. Levemir added to med regimen, yesterday, hyperglycemia improving; further increase in Levemir and increase in premeal insulin. close monitoring of Accu-Cheks. Discharge planning in progress for tomorrow for return back to [facility] subacute rehab pending improvement in renal function, nephrology's recommendations. The impression and plan of care has been dictated as directed. : I performed a history and examination of this patient, discussed the same with the dictator. I agree with the dictator's note ,documented as a scribe. Any additional findings or plans will be noted.
--- NOTE | 2022-04-15 13:59 | US ---
EXAMINATION TYPE: US kidneys/renal and bladder DATE OF EXAM: 04/15/2022 COMPARISON: NONE CLINICAL HISTORY: christi. Exam done portable EXAM MEASUREMENTS: Right Kidney: 10.3 x 5.2 x 5.2 cm Left Kidney: 10.4 x 4.9 x 5.4 cm Difficult and limited study due to morbidly obese patient Right Kidney: No hydronephrosis or masses seen Left Kidney: No hydronephrosis or masses seen Bladder: not seen, edgar catheter There is no evidence for hydronephrosis at this point in time. No nephrolithiasis is seen. No jose ramon s are identified. IMPRESSION: No evidence of obstructive uropathy.
[2022-04-15 16:30] LABS: Glucose,Whole Blood 239 mg/dL (70-110)
[2022-04-15 18:26] LABS: % Iron Saturation 8.23 (12.00-45.00)
[2022-04-15 20:32] LABS: Glucose,Whole Blood 265 mg/dL (70-110)
[2022-04-15] MEDS: MIRTAZAPINE 15 MG TAB PO SCH (21:06)
[2022-04-15] MEDS: ATORVASTATIN 40 MG TAB PO SCH (21:06)
[2022-04-16 06:41] LABS: Glucose,Whole Blood 189 mg/dL (70-110)
[2022-04-16] MEDS: INSULIN ASPART (NovoLOG) 100 UNIT/ML VIAL SQ SCH ×7 (06:44→21:07)
[2022-04-16] MEDS: INSULIN DETEMIR (LEVEMIR) 100 UNIT/ML SYR SQ SCH (06:45)
[2022-04-16] MEDS: LEVOTHYROXINE 50 MCG TAB PO SCH (06:45)
[2022-04-16] MEDS: PANTOPRAZOLE 40 MG TABLET PO SCH (06:47)
[2022-04-16 07:05] LABS: Glucose,Whole Blood 203 mg/dL (70-110)
[2022-04-16] MEDS: FUROSEMIDE 40 MG TAB PO SCH ×2 (09:04→16:12)
[2022-04-16] MEDS: acetaZOLAMIDE 250 MG TAB PO SCH ×2 (09:04→21:06)
[2022-04-16] MEDS: POTASSIUM CHLORIDE ER 20 MEQ TAB.ER PO SCH (09:04)
[2022-04-16] MEDS: OXYBUTYNIN CHLORIDE 5 MG TAB PO SCH ×2 (09:04→17:01)
[2022-04-16] MEDS: METOPROLOL TARTRATE 50 MG TAB PO SCH ×3 (09:04→21:07)
[2022-04-16] MEDS: ISOSORBIDE MONONITRATE ER 30 MG TAB.ER.24H PO SCH (09:05)
[2022-04-16] MEDS: CEPHALEXIN 500 MG CAP PO SCH (09:05)
[2022-04-16] MEDS: GABAPENTIN 300 MG CAP PO SCH ×2 (09:05→21:07)
[2022-04-16] MEDS: APIXABAN 5 MG TAB PO SCH ×2 (09:05→21:07)
--- NOTE | 2022-04-16 09:23 | P.PN ---
Subjective Progress Note Date: 04/16/22 Principal diagnosis: Shortness of breath. Pulmonary consultation dated 04/13/2022. 72-year-old female seen in the emergency room, on April 12. She presented to the emergency room, from the nursing facility with low saturations. She apparently told the ER personnel she had no complaints, and felt fine. She does have a history of hypoxemic and hypercapnic respiratory failure, as well as congestive heart failure. She does wear oxygen at home. Currently, the patient is on BiPAP, with settings of 14/5 and 35%. She was recently inpatient between April 06 and April 10. She's getting saline at KVO. She is also on IV Levaquin. She appears in no distress. She was sleeping when I first went into the room. White count 8.8, hemoglobin 7.5, hematocrit 24.8, and platelet count 229,000. D-dimer was 1.55. PT 12.8. Blood gases show a PaO2 of 37, pCO2 of 59, and a pH is 7.46. That was on room air. Sodium 140, potassium 4.1, chlorides 92, CO2 39, BUN 39, and creatinine 0.88. N-terminal proBNP was 7280. A nasal swab for coronavirus was negative. Influenza studies were also negative. A pro-calcitonin level was ordered by me. Chest x-ray was consistent in my opinion with CHF. CT angiogram showed no evidence of central pulmonary emboli. In addition, the computed tomography scan was consistent with CHF. Progress note dated 04/14/2022. The patient is seen today in room 363. Yesterday, she was on BiPAP. Currently, she is on 2 L. Her pro-calcitonin level is very low, so we will discontinue the Levaquin. She is getting saline, at 10 mL an hour. On BiPAP, her BiPAP settings are 14/5 and 35%. In fact, she is asking for the BiPAP as we speak. She is feeling better today than yesterday. CT angiogram was negative for pulmonary embolism. Sodium 141, potassium 4, chlorides 93, CO2 42, anion gap normal, BUN 41, and creatinine 1.20. Progress note dated 04/15/2022. The patient is again seen in room 363. Like yesterday, she was sleepy, and very lethargic. She's currently on oxygen at 2 L. She's not receiving any IV fluids. The BiPAP device is in the room and I suspect that she has used BiPAP on and off since yesterday. Laboratory data today includes a white count of 6.8, hemoglobin 7.6, hematocrit 25.3, and a platelet count of 239,000. Sodium 140, potassium 4.2, chlorides 92, CO2 42, BUN 42, and creatinine 1.45. Progress note dated 04/16/2022. 72-year-old female again seen in room 363. The patient is currently on 2 L of oxygen. She's getting saline at 10 mL an hour. He spent the entire night on BiPAP, with settings of 14/5, and 35%. She used to have a CPAP device, but apparently it does not work. Clinically, she is much more awake today. No new labs today she had other than a glucose of 203. She denies any shortness of breath, cough, wheezing, or phlegm production. She also denies any chest pain or chest discomfort. She denies any fever or chills. She denies any GI or symptoms. Objective - Vital Signs Vital signs: Vital Signs Temp 98.0 F 04/16/22 08:25 Pulse 82 04/16/22 08:25 Resp 22 04/16/22 08:25 BP 111/61 04/16/22 08:25 Pulse Ox 96 04/16/22 08:25 FiO2 35 04/16/22 07:50 Intake & Output 04/15/22 04/16/22 04/16/22 18:59 06:59 18:59 Intake Total 1110 Output Total 300 1500 Balance 810 -1500 Weight 148.5 kg Intake: Oral 1110 Output: Urine 300 1500 Other: Voiding Method Indwelling Catheter Indwelling Catheter - Exam No acute distress, awake and alert, currently on 2 L nasal cannula. No audible wheezing, or respiratory distress. No use of accessory muscles. HEENT examination is grossly unremarkable. Neck supple. Full range of motion. No adenopathy thyromegaly or neck vein distention. Cardiovascular examination reveals regular rhythm rate. S1-S2 normal. No S3 or S4. No discernible murmur noted. Heart sounds are distant. Heart rate 82 bpm. Lungs reveal diffuse bilateral rhonchi, and bilateral crackles. Breath sounds equal bilaterally, but diminished throughout. No wheezes. Saturations are in 96 % on 2 L. Abdomen soft bowel sounds are heard. No masses or tenderness. Extremities are intact. No cyanosis or clubbing. Mild to moderate edema is noted. Skin is without rash or lesion. Neurologic examination is brief but nonfocal. - Labs CBC & Chem 7: 04/15/22 07:27 04/15/22 07:27 Labs: Abnormal Lab Results - Last 24 Hours (Table) 04/15/22 04/15/22 04/15/22 Range/Units 07:27 11:49 16:24 POC Glucose (mg/dL) 313 H 239 H (70-110) mg/dL Iron 22 L (50-170) ug/dL % Saturation 8.23 L (12.00-45.00) Transferrin 190.0 L (204.0-354.0) mg/dL 04/15/22 04/16/22 04/16/22 Range/Units 20:31 06:39 07:04 POC Glucose (mg/dL) 265 H 189 H 203 H (70-110) mg/dL Iron (50-170) ug/dL % Saturation (12.00-45.00) Transferrin (204.0-354.0) mg/dL Assessment and Plan Assessment: Acute on chronic hypoxemic and hypercapnic respiratory failure, most likely related to fluid overload/CHF. Doubt pneumonia, as pro-calcitonin level was quite low. History of atrial fibrillation. History of CAD, status post 2 vessel bypass grafting, 1996. History of diabetes mellitus. Hyperlipidemia. Hypertension. Sleep apnea syndrome. Hypothyroidism. History of diabetic retinopathy and neuropathy. History of gout. Stage III chronic kidney disease. Morbid obesity. Multiple other medical problems and comorbidities. Plan: Plan dated 04/13/2022. A pro-calcitonin level has been ordered. The patient is currently on Levaquin. The patient most likely has fluid overload/CHF. Labs, x-rays, medications are reviewed. The patient's overall prognosis remains guarded. She was recently inpatient between April 06 and April 10 with a similar episode. We will continue to follow make recommendations along the way. Prognosis is not good. If the pro-calcitonin level comes back low, antibiotics can be discontinued. Plan dated 04/14/2022. The patient is feeling better today. She wants to go back on BiPAP after lunch. Currently on 2 L with saturations of 98%. The pro-calcitonin level was low, and the patient's Levaquin will be discontinued. Labs, x-rays, and medications are all reviewed. The patient is getting diuretics as per cardiology. No additional recommendations are made. Pneumonia seems much less likely. We will continue to follow make recommendations along the way. Progress note dated 04/15/2022. The patient remains on appropriate medications. The patient is receiving a factor X a inhibitor, as well as Lipitor, Lasix, and Keflex. The patient is also receiving her thyroid medication, as well as GI prophylaxis. Labs, x-rays, and medications are reviewed. The patient will continue to use BiPAP intermittently. No additional recommendations are made. Prognosis is very guarded. Progress note dated 04/16/2022. The patient is doing much better. She is much more awake and alert. She did used to BiPAP throughout the night last night. She's currently on 2 L of oxygen. Her saturations are in the mid 90s. She feels much improved. She denies any shortness of breath, difficulty breathing, cough, wheezing, phlegm production, chest pain or chest discomfort. No chest x-ray today. No significant lab work today as yet. Hopeful discharge back to the residential in the near future. Time with Patient: Less than 30
--- NOTE | 2022-04-16 10:30 | P.PN ---
Subjective Patient is seen in follow-up for acute kidney injury. Morning labs pending. On oral diuretics. Has a Lynne catheter. Nonoliguric. Blood pressure stable. Currently on room air. Oral intake fair. No vomiting or diarrhea. Denies chest pain or shortness of breath. Vital signs are stable. General: Awake. No acute distress. HEENT: Head exam is unremarkable. LUNGS: Breath sounds decreased. HEART: Rate and Rhythm are regular. ABDOMEN: Soft, obese. EXTREMITITES: 1+ edema. Objective - Vital Signs Vital signs: Vital Signs Temp 98.0 F 04/16/22 08:25 Pulse 82 04/16/22 08:25 Resp 22 04/16/22 08:25 BP 111/61 04/16/22 08:25 Pulse Ox 96 04/16/22 08:25 FiO2 35 04/16/22 07:50 Intake & Output 04/15/22 04/16/22 04/16/22 18:59 06:59 18:59 Intake Total 1110 Output Total 300 1500 Balance 810 -1500 Weight 148.5 kg Intake: Oral 1110 Output: Urine 300 1500 Other: Voiding Method Indwelling Catheter Indwelling Catheter Indwelling Catheter - Labs CBC & Chem 7: 04/15/22 07:27 04/15/22 07:27 Labs: Abnormal Lab Results - Last 24 Hours (Table) 04/15/22 04/15/22 04/15/22 Range/Units 07:27 11:49 16:24 POC Glucose (mg/dL) 313 H 239 H (70-110) mg/dL Iron 22 L (50-170) ug/dL % Saturation 8.23 L (12.00-45.00) Transferrin 190.0 L (204.0-354.0) mg/dL 04/15/22 04/16/22 04/16/22 Range/Units 20:31 06:39 07:04 POC Glucose (mg/dL) 265 H 189 H 203 H (70-110) mg/dL Iron (50-170) ug/dL % Saturation (12.00-45.00) Transferrin (204.0-354.0) mg/dL Assessment and Plan Plan: Assessment: 1. Acute kidney injury mostly prerenal secondary to cardiorenal syndrome and also concern for contrast-induced acute kidney injury. Patient received IV contrast for CT on 04/12/2022. Baseline creatinine near 1 and was up to 1.45 yesterday. No hydronephrosis noted on kidney ultrasound. 2. Metabolic alkalosis secondary to diuresis. 3. Diabetes mellitus. 4. Acute on chronic diastolic CHF with mild aortic stenosis, severe tricuspid regurgitation and pulmonary hypertension. 5. Volume overload. 6. Anemia. Iron deficiency noted. Plan: Maintain oral Lasix. Maintain Diamox. Follow-up urinalysis. Check renal ultrasound. Add IV iron. Continue to monitor renal function and urine output.
[2022-04-16 11:32] LABS: Glucose,Whole Blood 218 mg/dL (70-110)
--- NOTE | 2022-04-16 11:55 | P.PN ---
Subjective This is a 72-year-old female past medical history of coronary artery disease status post prior 2 vessel bypass in 1996, hypertension, dyslipidemia, morbid obesity, type 2 diabetes, persistent atrial fibrillation on Eliquis. She follows with Dr. Weller. We have been following the patient secondary to congestive heart failure. Patient presents to the ER from [facility] secondary to hypoxia. Patient does endorse shortness of breath when moving to sit at the edge of the bed. She denies any symptoms of orthopnea or PND. She denies any changes to her medications or diet that she is aware of. She was brought to the emergency department for further evaluation. She was started on IV lasix, with 1.3L urine output. She denies any shortness breath, chest pain, palpitations, lightheadedness, dizziness. DIAGNOSTICS * Echocardiogram 04/07/2022-revealed EF of 50%, mild aortic regurgitation, mild aortic stenosis with peak gradient of 25 and a mean gradient of 14 mmHg, severe tricuspid regurgitation, moderate pulmonary hypertension. 04/16/2022 Patient seen and examined at bedside, no acute distress. She denies any shortness of breath or chest pain. I/Os -690mL urine output over 24 hours. Weight is stable. Lungs diminished bilaterally. Scr worsened today at 1.45 yesterday and labs pending for today. Heart rates are controlled. She was transitioned to PO Lasix and nephrology is managing, started Diamox. PHYSICAL EXAMINATION Vitals reviewed CONSTITUTIONAL: No apparent distress. Obese. HEENT: Neck Supple. No JVD. CHEST EXAMINATION: Lungs are diminished bilaterally to auscultation. No chest wall tenderness is noted on palpation or with deep breathing. HEART EXAMINATION: Irregular rate and rhythm. S1, S2 heard. Systolic ejection mumur at base ABDOMEN: Soft, nontender. Positive bowel sounds. EXTREMITIES: mild to moderate non-pitting bilateral lower extremity edema and no calf tenderness. SKIN: Redness right lower ankle NEUROLOGIC EXAMINATION: Patient is awake, lethargic and oriented x3. ASSESSMENT Acute on chronic heart failure with preserved ejection fraction Possible pneumonia Mild aortic stenosis Persistent atrial fibrillation, on Eliquis Coronary artery disease with prior 2 vessel bypass in 1996 Morbid obesity Hypertension Dyslipidemia Type 2 diabetes Pulmonary hypertension PLAN No further changes from a cardiology perspective Lasix and Diamox managed per nephrology Continue anticoagulation with Eliquis Continue home beta josh and statin We will follow the patient as needed. Please reach out with any further questions or concerns Follow up outpatient with Dr. Weller Nurse Practitioner note has been reviewed, I agree with a documented findings and plan of care. Patient was seen and examined. Objective - Vital Signs Vital signs: Vital Signs Temp 98.0 F 04/16/22 11:44 Pulse 68 04/16/22 11:44 Resp 18 04/16/22 11:44 BP 118/71 04/16/22 11:44 Pulse Ox 98 04/16/22 11:44 FiO2 35 04/16/22 07:50 Intake & Output 04/15/22 04/16/22 04/16/22 18:59 06:59 18:59 Intake Total 1110 Output Total 300 1500 Balance 810 -1500 Weight 148.5 kg Intake: Oral 1110 Output: Urine 300 1500 Other: Voiding Method Indwelling Catheter Indwelling Catheter Indwelling Catheter - Labs CBC & Chem 7: 04/15/22 07:27 04/15/22 07:27 Labs: Abnormal Lab Results - Last 24 Hours (Table) 04/15/22 04/15/22 04/15/22 Range/Units 07:27 11:49 16:24 POC Glucose (mg/dL) 313 H 239 H (70-110) mg/dL Iron 22 L (50-170) ug/dL % Saturation 8.23 L (12.00-45.00) Transferrin 190.0 L (204.0-354.0) mg/dL 04/15/22 04/16/22 04/16/22 Range/Units 20:31 06:39 07:04 POC Glucose (mg/dL) 265 H 189 H 203 H (70-110) mg/dL Iron (50-170) ug/dL % Saturation (12.00-45.00) Transferrin (204.0-354.0) mg/dL 04/16/22 Range/Units 11:31 POC Glucose (mg/dL) 218 H (70-110) mg/dL Iron (50-170) ug/dL % Saturation (12.00-45.00) Transferrin (204.0-354.0) mg/dL
[2022-04-16] MEDS: SODIUM FERRIC GLUCONAT-SUCROSE 125 MG in SODIUM CHLORIDE 0.9% 100 ML IVPB SCH (12:11)
[2022-04-16 13:08] LABS: Calcium 8.5 mg/dL (8.4-10.2); Potassium 4.2 mmol/L (3.5-5.1)
--- NOTE | 2022-04-16 14:56 | P.PN ---
Subjective Progress Note Date: 04/16/22 H&P Date: 04/14/22 This is a 72-year-old female admitted from [facility] subacute rehab with acute on chronic hypoxic respiratory failure, multifactorial, wears 2.5 L nasal cannula O2 at home. Discharged last week to subacute rehab for acute on chronic CHF with increase in home dose of oral diuretics/Lasix as per cardiology. Recent COVID-19 pneumonia January 2022 with chronic fibrotic changes secondary to the Covid infection as per pulmonary's evaluation on prior admission.patient also received a couple units packed RBCs on last admission for acute on chronic anemia with negative Hemoccult,currently stable at 7.5. Maintaining O2 sats of 100% on 4 L nasal cannula, titrated down, currently maintaining O2 sats of 96% on 2 L nasal cannula (baseline). Denies chest pain, palpitations or shortness of breath. Denies cough. Denies lightheadedness dizziness or focal deficits. Consuming 75% of breakfast. Denies nausea, vomiting or diarrhea. No abdominal pain. Renal function stable. Electrolytes within normal limits. Right lower extremity cellulitis, wound cultures of last week reporting MSSA. EKG reported atrial fibrillation with mild tachycardia, low 100s, right bundle branch block, troponin 0.025, proBNP 7280. Anticoagulated on Eliquis. Chest x-ray reporting cardiomegaly, mild pulmonary vascular congestion. D-dimer 1.55. Chest CTA reported no PE with limited evaluation of segmental and subsegmental branches, peripheral groundglass pulmonary opacities with reactive mediastinal lymphadenopathy in a patient with recent Covid infection , cardiomegaly with pulmonary vascular congestion and trace bilateral pleural effusions, suspected underlying component of CHF .Coronavirus, influenza type A and type B not detected. Diuresing well on Lasix IV push with 24 hour I&O reflecting a negative fluid balance. Hyperglycemic. IV push diuretics initiated, continues on beta josh 04/14/2022 diuresing well on Lasix IV push 24-hour I&O reflecting a negative f luid balance, renal function worsening. Diuretics converted to oral. Maintained on Levaquin, pro-calcitonin 0.1. Afebrile. Telemetry controlled A. fib. Maintaining O2 sats in the high 90s on 2 L nasal cannula. 04/15/2022 BiPAP during the night and after lunch yesterday. Currently maintaining O2 sats in the high 90s on 2 L nasal cannula. Renal function worsening yesterday, transitioned to oral Lasix , creatinine higher today, 1.45. Afebrile, normal WBC. 04/16/2022 continues on fluid restrictions, diuretics adjusted to oral Lasix with Diamox ordered, bicarb yesterday 42 with worsening renal function. Labs pending. JEANETTE inhibitor decreased. Blood pressure stable. Denies chest pain, palpitations or shortness of breath. Blood sugars improving. Objective - Vital Signs Vital signs: Vital Signs Temp 97.7 F 04/16/22 12:01 Pulse 82 04/16/22 14:00 Resp 20 04/16/22 14:00 BP 160/71 04/16/22 12:01 Pulse Ox 98 04/16/22 12:01 FiO2 35 04/16/22 07:50 Intake & Output 04/15/22 04/16/22 04/16/22 18:59 06:59 18:59 Intake Total 1110 Output Total 300 1500 Balance 810 -1500 Weight 148.5 kg Intake: Oral 1110 Output: Urine 300 1500 Other: Voiding Method Indwelling Catheter Indwelling Catheter Indwelling Catheter - Exam PHYSICAL EXAM: VITAL SIGNS: [As above] GENERAL: Morbidly obese , alert and oriented 3, sitting up in bed , no acute distress. HEENT: Conjunctivae normal. eyes normal. Oral mucosa moist NECK: Supple, No JVD. CARDIOVASCULAR: S1, S2 regular,irregular. Systolic murmur RESPIRATION: Unlabored, Bilateral air entry, fine bibasilar crackles ABDOMEN: Soft, obese, nontender . No guarding. no masses palpable. Bowel sounds heard. LEGS:Chronic venous stasis with bilateral lower extremity edema, right lower extremity with significant improvement; redness subsided, dry multiple scabs,no clubbing, no cyanosis.No calf tenderness. NERVOUS SYSTEM: Cranial N 2-12 grossly normal. No focal deficits. Skin: Warm and dry, no rash. - Labs CBC & Chem 7: 04/15/22 07:27 04/16/22 12:01 Labs: Abnormal Lab Results - Last 24 Hours (Table) 04/15/22 04/15/22 04/15/22 Range/Units 07:27 16:24 20:31 Chloride (98-107) mmol/L Carbon Dioxide (22-30) mmol/L BUN (7-17) mg/dL Creatinine (0.52-1.04) mg/dL Glucose (74-99) mg/dL POC Glucose (mg/dL) 239 H 265 H (70-110) mg/dL Iron 22 L (50-170) ug/dL % Saturation 8.23 L (12.00-45.00) Transferrin 190.0 L (204.0-354.0) mg/dL 04/16/22 04/16/22 04/16/22 Range/Units 06:39 07:04 11:31 Chloride (98-107) mmol/L Carbon Dioxide (22-30) mmol/L BUN (7-17) mg/dL Creatinine (0.52-1.04) mg/dL Glucose (74-99) mg/dL POC Glucose (mg/dL) 189 H 203 H 218 H (70-110) mg/dL Iron (50-170) ug/dL % Saturation (12.00-45.00) Transferrin (204.0-354.0) mg/dL 04/16/22 Range/Units 12:01 Chloride 90 L (98-107) mmol/L Carbon Dioxide 40 H (22-30) mmol/L BUN 40 H (7-17) mg/dL Creatinine 1.62 H (0.52-1.04) mg/dL Glucose 177 H (74-99) mg/dL POC Glucose (mg/dL) (70-110) mg/dL Iron (50-170) ug/dL % Saturation (12.00-45.00) Transferrin (204.0-354.0) mg/dL Assessment and Plan Assessment: Acute on chronic congestive heart failure, diastolic dysfunction, EF 50%, doubt pneumonia, pro-calcitonin 0.1. Recent COVID-19 pneumonia January 2022 with chronic fibrotic changes secondary to the Covid infection as per pulmonary Chronic anemia, iron deficient Acute on chronic hypoxic respiratory failure, secondary to all the above, wears 2.5 L NC O2 at home Moderate pulmonary hypertension Chronic Bilateral lower extremity cellulitis, MSSA on prior wound cultures of the last admission Chronic atrial fibrillation, newly diagnosed on prior visit, January 2022 CAD, history of CABG Hypertension hyperlipidemia Diabetes mellitus, hemoglobin A1c 6.6 Hypothyroidism History of bariatric surgery Morbid obesity, BMI 59.7 Plan: Continue on current medication regime ,monitoring and symptomatic treatment. Maintained on Diamox and oral Lasix. Labs pending .receiving IV iron close monitoring of renal function with repeat labs ordered for a.m. close monitoring of Accu-Cheks. Discharge planning in progress for tomorrow for return back to [facility] subacute rehab pending improvement in renal function, nephrology's recommendations. The impression and plan of care has been dictated as directed. : I performed a history and examination of this patient, discussed the same with the dictator. I agree with the dictator's note ,documented as a scribe. Any additional findings or plans will be noted.
[2022-04-16] MEDS: CEPHALEXIN 250 MG CAP PO SCH (16:12)
[2022-04-16 16:47] LABS: Glucose,Whole Blood 234 mg/dL (70-110)
[2022-04-16 18:28] LABS: Appearance,Urine Clear (Clear); Bacteria,Urine Rare /hpf; Bilirubin,Urine Negative (Negative); Blood,Urine Negative (Negative); Color,Urine Light Yellow; Glucose,Urine (UA) Negative (Negative); Ketones,Urine Negative (Negative); Leukocyte Esterase,Urine Trace (Negative); Nitrite,Urine Negative (Negative); Protein,Urine Negative (Negative); RBC,Urine <1 /hpf (0-5); Specific Gravity,Urine 1.006 (1.001-1.035); Urobilinogen,Urine <2.0 mg/dL (<2.0); WBC,Urine <1 /hpf (0-5)
[2022-04-16 20:50] LABS: Glucose,Whole Blood 222 mg/dL (70-110)
[2022-04-16] MEDS: ATORVASTATIN 40 MG TAB PO SCH (21:07)
[2022-04-16] MEDS: MIRTAZAPINE 15 MG TAB PO SCH (21:07)
[2022-04-17] MEDS: CEPHALEXIN 250 MG CAP PO SCH ×4 (00:10→23:08)
[2022-04-17 06:42] LABS: Glucose,Whole Blood 172 mg/dL (70-110)
[2022-04-17] MEDS: PANTOPRAZOLE 40 MG TABLET PO SCH (06:55)
[2022-04-17] MEDS: LEVOTHYROXINE 50 MCG TAB PO SCH (06:55)
[2022-04-17] MEDS: INSULIN DETEMIR (LEVEMIR) 100 UNIT/ML SYR SQ SCH (06:56)
[2022-04-17] MEDS: INSULIN ASPART (NovoLOG) 100 UNIT/ML VIAL SQ SCH ×7 (06:56→23:08)
[2022-04-17 07:29] LABS: Calcium 8.8 mg/dL (8.4-10.2); Potassium 4.1 mmol/L (3.5-5.1)
[2022-04-17] MEDS: acetaZOLAMIDE 250 MG TAB PO SCH ×3 (09:00→21:21)
[2022-04-17] MEDS: APIXABAN 5 MG TAB PO SCH ×2 (09:00→21:20)
[2022-04-17] MEDS: FUROSEMIDE 40 MG TAB PO SCH (09:01)
[2022-04-17] MEDS: METOPROLOL TARTRATE 50 MG TAB PO SCH ×3 (09:01→21:20)
[2022-04-17] MEDS: GABAPENTIN 300 MG CAP PO SCH ×2 (09:01→21:21)
[2022-04-17] MEDS: ISOSORBIDE MONONITRATE ER 30 MG TAB.ER.24H PO SCH (09:01)
[2022-04-17] MEDS: POTASSIUM CHLORIDE ER 20 MEQ TAB.ER PO SCH (09:01)
[2022-04-17] MEDS: OXYBUTYNIN CHLORIDE 5 MG TAB PO SCH ×2 (09:01→18:05)
[2022-04-17] MEDS: SODIUM FERRIC GLUCONAT-SUCROSE 125 MG in SODIUM CHLORIDE 0.9% 100 ML IVPB SCH (09:49)
--- NOTE | 2022-04-17 10:20 | P.PN ---
Subjective Progress Note Date: 04/17/22 Principal diagnosis: Shortness of breath. Pulmonary consultation dated 04/13/2022. 72-year-old female seen in the emergency room, on April 12. She presented to the emergency room, from the nursing facility with low saturations. She apparently told the ER personnel she had no complaints, and felt fine. She does have a history of hypoxemic and hypercapnic respiratory failure, as well as congestive heart failure. She does wear oxygen at home. Currently, the patient is on BiPAP, with settings of 14/5 and 35%. She was recently inpatient between April 06 and April 10. She's getting saline at KVO. She is also on IV Levaquin. She appears in no distress. She was sleeping when I first went into the room. White count 8.8, hemoglobin 7.5, hematocrit 24.8, and platelet count 229,000. D-dimer was 1.55. PT 12.8. Blood gases show a PaO2 of 37, pCO2 of 59, and a pH is 7.46. That was on room air. Sodium 140, potassium 4.1, chlorides 92, CO2 39, BUN 39, and creatinine 0.88. N-terminal proBNP was 7280. A nasal swab for coronavirus was negative. Influenza studies were also negative. A pro-calcitonin level was ordered by me. Chest x-ray was consistent in my opinion with CHF. CT angiogram showed no evidence of central pulmonary emboli. In addition, the computed tomography scan was consistent with CHF. Progress note dated 04/14/2022. The patient is seen today in room 363. Yesterday, she was on BiPAP. Currently, she is on 2 L. Her pro-calcitonin level is very low, so we will discontinue the Levaquin. She is getting saline, at 10 mL an hour. On BiPAP, her BiPAP settings are 14/5 and 35%. In fact, she is asking for the BiPAP as we speak. She is feeling better today than yesterday. CT angiogram was negative for pulmonary embolism. Sodium 141, potassium 4, chlorides 93, CO2 42, anion gap normal, BUN 41, and creatinine 1.20. Progress note dated 04/15/2022. The patient is again seen in room 363. Like yesterday, she was sleepy, and very lethargic. She's currently on oxygen at 2 L. She's not receiving any IV fluids. The BiPAP device is in the room and I suspect that she has used BiPAP on and off since yesterday. Laboratory data today includes a white count of 6.8, hemoglobin 7.6, hematocrit 25.3, and a platelet count of 239,000. Sodium 140, potassium 4.2, chlorides 92, CO2 42, BUN 42, and creatinine 1.45. Progress note dated 04/16/2022. 72-year-old female again seen in room 363. The patient is currently on 2 L of oxygen. She's getting saline at 10 mL an hour. He spent the entire night on BiPAP, with settings of 14/5, and 35%. She used to have a CPAP device, but apparently it does not work. Clinically, she is much more awake today. No new labs today she had other than a glucose of 203. She denies any shortness of breath, cough, wheezing, or phlegm production. She also denies any chest pain or chest discomfort. She denies any fever or chills. She denies any GI or symptoms. Progress note dated 04/17/2022. 72-year-old obese female seen in room 363. She is currently on 2 L of oxygen. She uses BiPAP at night team, with settings of 14/5 and 35%. The patient's getting saline at KVO. Clinically she is doing better. She does need to use either CPAP or BiPAP at nighttime. BiPAP is preferred. She is clinically feeling better. Sodium 141, potassium 4.1, chlorides 90, CO2 47, BUN 38, cr eatinine 1.64. Objective - Vital Signs Vital signs: Vital Signs Temp 97.8 F 04/17/22 08:47 Pulse 77 04/17/22 08:47 Resp 18 04/17/22 08:47 BP 130/70 04/17/22 08:47 Pulse Ox 97 04/17/22 08:47 FiO2 35 04/17/22 03:30 Intake & Output 04/16/22 04/17/22 04/17/22 18:59 06:59 18:59 Intake Total 500 Output Total 350 1100 Balance 150 -1100 Intake: Oral 500 Output: Urine 350 1100 Other: Voiding Method Indwelling Catheter Diaper External Catheter - Exam No acute distress, awake and alert, currently on 2 L nasal cannula. No audible wheezing, or respiratory distress. No use of accessory muscles. HEENT examination is grossly unremarkable. Neck supple. Full range of motion. No adenopathy thyromegaly or neck vein distention. Cardiovascular examination reveals regular rhythm rate. S1-S2 normal. No S3 or S4. No discernible murmur noted. Heart sounds are distant. Heart rate 77 bpm. Lungs reveal diffuse bilateral rhonchi, and bilateral crackles. Breath sounds equal bilaterally, but diminished throughout. No wheezes. Saturations are in 97 % on 2 L. Abdomen soft bowel sounds are heard. No masses or tenderness. Extremities are intact. No cyanosis or clubbing. Mild to moderate edema is noted. Skin is without rash or lesion. Neurologic examination is brief but nonfocal. - Labs CBC & Chem 7: 04/15/22 07:27 04/17/22 06:40 Labs: Abnormal Lab Results - Last 24 Hours (Table) 04/16/22 04/16/22 04/16/22 Range/Units 11:31 12:01 16:45 Chloride 90 L (98-107) mmol/L Carbon Dioxide 40 H (22-30) mmol/L BUN 40 H (7-17) mg/dL Creatinine 1.62 H (0.52-1.04) mg/dL Glucose 177 H (74-99) mg/dL POC Glucose (mg/dL) 218 H 234 H (70-110) mg/dL Ur Leukocyte Esterase (Negative) Urine Bacteria (None) /hpf 04/16/22 04/16/22 04/17/22 Range/Units 18:18 20:48 06:40 Chloride 90 L (98-107) mmol/L Carbon Dioxide 47 H* (22-30) mmol/L BUN 38 H (7-17) mg/dL Creatinine 1.64 H (0.52-1.04) mg/dL Glucose 136 H (74-99) mg/dL POC Glucose (mg/dL) 222 H (70-110) mg/dL Ur Leukocyte Esterase Trace H (Negative) Urine Bacteria Rare H (None) /hpf 04/17/22 Range/Units 06:40 Chloride (98-107) mmol/L Carbon Dioxide (22-30) mmol/L BUN (7-17) mg/dL Creatinine (0.52-1.04) mg/dL Glucose (74-99) mg/dL POC Glucose (mg/dL) 172 H (70-110) mg/dL Ur Leukocyte Esterase (Negative) Urine Bacteria (None) /hpf Assessment and Plan Assessment: Acute on chronic hypoxemic and hypercapnic respiratory failure, most likely related to fluid overload/CHF. Doubt pneumonia, as pro-calcitonin level was quite low. History of atrial fibrillation. History of CAD, status post 2 vessel bypass grafting, 1996. History of diabetes mellitus. Hyperlipidemia. Hypertension. Sleep apnea syndrome. Hypothyroidism. History of diabetic retinopathy and neuropathy. History of gout. Stage III chronic kidney disease. Morbid obesity. Multiple other medical problems and comorbidities. Plan: Plan dated 04/13/2022. A pro-calcitonin level has been ordered. The patient is currently on Levaquin. The patient most likely has fluid overload/CHF. Labs, x-rays, medications are reviewed. The patient's overall prognosis remains guarded. She was recently inpatient between April 06 and April 10 with a similar episode. We will continue to follow make recommendations along the way. Prognosis is not good. If the pro-calcitonin level comes back low, antibiotics can be discontinued. Plan dated 04/14/2022. The patient is feeling better today. She wants to go back on BiPAP after lunch. Currently on 2 L with saturations of 98%. The pro-calcitonin level was low, and the patient's Levaquin will be discontinued. Labs, x-rays, and medications are all reviewed. The patient is getting diuretics as per cardiology. No additional recommendations are made. Pneumonia seems much less likely. We will continue to follow make recommendations along the way. Progress note dated 04/15/2022. The patient remains on appropriate medications. The patient is receiving a factor X a inhibitor, as well as Lipitor, Lasix, and Keflex. The patient is also receiving her thyroid medication, as well as GI prophylaxis. Labs, x-rays, and medications are reviewed. The patient will continue to use BiPAP intermittently. No additional recommendations are made. Prognosis is very guarded. Progress note dated 04/16/2022. The patient is doing much better. She is much more awake and alert. She did u sed to BiPAP throughout the night last night. She's currently on 2 L of oxygen. Her saturations are in the mid 90s. She feels much improved. She denies any shortness of breath, difficulty breathing, cough, wheezing, phlegm production, chest pain or chest discomfort. No chest x-ray today. No significant lab work today as yet. Hopeful discharge back to the long-term in the near future. Progress note dated 04/17/2022. Labs, x-rays, and medications are reviewed. Her saturations are 97% on 2 L. The FiO2 can be reduced even further. Saturations in this patient should be in the 88-92% range. Saturations higher than that, with the use of any sedatives, hypnotics, narcotics, or tranquilizers, will cause the patient had acute on chronic hypercapnic respiratory failure. She does need to use BiPAP when she goes back to the long-term. Overall prognosis remains guarded. From my p erspective, the patient could be discharged. X-rays labs and medications are all reviewed. Time with Patient: Less than 30
--- NOTE | 2022-04-17 10:26 | P.PN ---
Subjective Patient is seen in follow-up for acute kidney injury. On oral diuretics. Has a Lynne catheter. Nonoliguric. Blood pressure stable. Oral intake fair. No vomiting or diarrhea. Denies chest pain or shortness of breath. Bicarb 47 today. Vital signs are stable. General: Awake. No acute distress. HEENT: Head exam is unremarkable. LUNGS: Breath sounds decreased. HEART: Rate and Rhythm are regular. ABDOMEN: Soft, obese. EXTREMITITES: 1+ edema. Objective - Vital Signs Vital signs: Vital Signs Temp 97.8 F 04/17/22 08:47 Pulse 77 04/17/22 08:47 Resp 18 04/17/22 08:47 BP 130/70 04/17/22 08:47 Pulse Ox 97 04/17/22 08:47 FiO2 35 04/17/22 03:30 Intake & Output 04/16/22 04/17/22 04/17/22 18:59 06:59 18:59 Intake Total 500 Output Total 350 1100 Balance 150 -1100 Intake: Oral 500 Output: Urine 350 1100 Other: Voiding Method Indwelling Catheter Diaper External Catheter - Labs CBC & Chem 7: 04/15/22 07:27 04/17/22 06:40 Labs: Abnormal Lab Results - Last 24 Hours (Table) 04/16/22 04/16/22 04/16/22 Range/Units 11:31 12:01 16:45 Chloride 90 L (98-107) mmol/L Carbon Dioxide 40 H (22-30) mmol/L BUN 40 H (7-17) mg/dL Creatinine 1.62 H (0.52-1.04) mg/dL Glucose 177 H (74-99) mg/dL POC Glucose (mg/dL) 218 H 234 H (70-110) mg/dL Ur Leukocyte Esterase (Negative) Urine Bacteria (None) /hpf 04/16/22 04/16/22 04/17/22 Range/Units 18:18 20:48 06:40 Chloride 90 L (98-107) mmol/L Carbon Dioxide 47 H* (22-30) mmol/L BUN 38 H (7-17) mg/dL Creatinine 1.64 H (0.52-1.04) mg/dL Glucose 136 H (74-99) mg/dL POC Glucose (mg/dL) 222 H (70-110) mg/dL Ur Leukocyte Esterase Trace H (Negative) Urine Bacteria Rare H (None) /hpf 04/17/22 Range/Units 06:40 Chloride (98-107) mmol/L Carbon Dioxide (22-30) mmol/L BUN (7-17) mg/dL Creatinine (0.52-1.04) mg/dL Glucose (74-99) mg/dL POC Glucose (mg/dL) 172 H (70-110) mg/dL Ur Leukocyte Esterase (Negative) Urine Bacteria (None) /hpf Assessment and Plan Plan: Assessment: 1. Acute kidney injury mostly prerenal secondary to cardiorenal syndrome and also concern for contrast-induced acute kidney injury. Patient received IV contrast for CT on 04/12/2022. Baseline creatinine near 1 and is stable at 1.64 today. No hydronephrosis noted on kidney ultrasound. UA benign. 2. Metabolic alkalosis secondary to diuresis. 3. Diabetes mellitus. 4. Acute on chronic diastolic CHF with mild aortic stenosis, severe tricuspid regurgitation and pulmonary hypertension. 5. Volume overload. 6. Anemia. Iron deficiency noted. Plan: Hold tonight's dose of Lasix. Maintain Diamox. Maintain IV iron. Continue to monitor renal function and urine output. Check ABG.
[2022-04-17 10:39] LABS: ABG Base Excess 17.2 mmol/L; ABG Oxygen Saturation 98.8 % (94-97); ABG PH 7.35 (7.35-7.45); ABG PO2 112 mmHg (83-108); ABG TCO2 45 mmol/L (19-24); Allen Test Performed? Yes
[2022-04-17 10:42] LABS: ABG HCO3 43 mmol/L (21-25); ABG Hematocrit 23 % (34.0-46.0); ABG PCO2 78 mmHg (35-45)
[2022-04-17 12:02] LABS: Glucose,Whole Blood 228 mg/dL (70-110)
[2022-04-17] MEDS ORDERED: INSULIN DETEMIR (LEVEMIR) 100 UNIT/ML SYR SQ ONE (15:35)
--- NOTE | 2022-04-17 15:39 | P.PN ---
Subjective Progress Note Date: 04/17/22 H&P Date: 04/14/22 This is a 72-year-old female admitted from [facility] subacute rehab with acute on chronic hypoxic respiratory failure, multifactorial, wears 2.5 L nasal cannula O2 at home. Discharged last week to subacute rehab for acute on chronic CHF with increase in home dose of oral diuretics/Lasix as per cardiology. Recent COVID-19 pneumonia January 2022 with chronic fibrotic changes secondary to the Covid infection as per pulmonary's evaluation on prior admission.patient also received a couple units packed RBCs on last admission for acute on chronic anemia with negative Hemoccult,currently stable at 7.5. Maintaining O2 sats of 100% on 4 L nasal cannula, titrated down, currently maintaining O2 sats of 96% on 2 L nasal cannula (baseline). Denies chest pain, palpitations or shortness of breath. Denies cough. Denies lightheadedness dizziness or focal deficits. Consuming 75% of breakfast. Denies nausea, vomiting or diarrhea. No abdominal pain. Renal function stable. Electrolytes within normal limits. Right lower extremity cellulitis, wound cultures of last week reporting MSSA. EKG reported atrial fibrillation with mild tachycardia, low 100s, right bundle branch block, troponin 0.025, proBNP 7280. Anticoagulated on Eliquis. Chest x-ray reporting cardiomegaly, mild pulmonary vascular congestion. D-dimer 1.55. Chest CTA reported no PE with limited evaluation of segmental and subsegmental branches, peripheral groundglass pulmonary opacities with reactive mediastinal lymphadenopathy in a patient with recent Covid infection , cardiomegaly with pulmonary vascular congestion and trace bilateral pleural effusions, suspected underlying component of CHF .Coronavirus, influenza type A and type B not detected. Diuresing well on Lasix IV push with 24 hour I&O reflecting a negative fluid balance. Hyperglycemic. IV push diuretics initiated, continues on beta josh 04/14/2022 diuresing well on Lasix IV push 24-hour I&O reflecting a negative f luid balance, renal function worsening. Diuretics converted to oral. Maintained on Levaquin, pro-calcitonin 0.1. Afebrile. Telemetry controlled A. fib. Maintaining O2 sats in the high 90s on 2 L nasal cannula. 04/15/2022 BiPAP during the night and after lunch yesterday. Currently maintaining O2 sats in the high 90s on 2 L nasal cannula. Renal function worsening yesterday, transitioned to oral Lasix , creatinine higher today, 1.45. Afebrile, normal WBC. 04/16/2022 continues on fluid restrictions, diuretics adjusted to oral Lasix with Diamox ordered, bicarb yesterday 42 with worsening renal function. Labs pending. JEANETTE inhibitor decreased. Blood pressure stable. Denies chest pain, palpitations or shortness of breath. Blood sugars improving. 04/17/2022 creatinine 1.64, bicarb worsening, increased to 47. Lasix placed on hold, continues on Diamox. Requiring BiPAP at night and will require a subacute rehab. Maintaining O2 sats in the 90s on 2 L nasal cannula. Hyperglycemics, blood sugars improving. Objective - Vital Signs Vital signs: Vital Signs Temp 97.8 F 04/17/22 12:23 Pulse 76 04/17/22 12:23 Resp 20 04/17/22 12:23 BP 155/68 04/17/22 12:23 Pulse Ox 99 04/17/22 12:23 FiO2 35 04/17/22 03:30 Intake & Output 04/16/22 04/17/22 04/17/22 18:59 06:59 18:59 Intake Total 500 Output Total 350 1100 1000 Balance 150 -1100 -1000 Weight 147 kg Intake: Oral 500 Output: Urine 350 1100 1000 Other: Voiding Method Indwelling Catheter Diaper Diaper External Catheter External Catheter - Exam PHYSICAL EXAM: VITAL SIGNS: [As above] GENERAL: alert and oriented 3, sitting up in bed , no acute distress. HEENT: Conjunctivae normal. eyes normal. Oral mucosa moist NECK: Supple, No JVD. CARDIOVASCULAR: S1, S2 regular,irregular. Systolic murmur RESPIRATION: Unlabored, Bilateral air entry, scattered rhonchi ,fine bibasilar crackles ABDOMEN: Soft, obese, nontender . No guarding. no masses palpable. Bowel sounds heard. LEGS:Chronic venous stasis with bilateral lower extremity edema, right lower extremity dressing clean dry and intact, no clubbing, no cyanosis.No calf tenderness. NERVOUS SYSTEM: Cranial N 2-12 grossly normal. No focal deficits. Skin: Warm and dry, no rash. - Labs CBC & Chem 7: 04/15/22 07:27 04/17/22 06:40 Labs: Abnormal Lab Results - Last 24 Hours (Table) 04/16/22 04/16/22 04/16/22 Range/Units 16:45 18:18 20:48 ABG pCO2 (35-45) mmHg ABG pO2 (83-108) mmHg ABG HCO3 (21-25) mmol/L ABG Total CO2 (19-24) mmol/L ABG O2 Saturation (94-97) % ABG Hematocrit (34.0-46.0) % Hemoglobin (11.4-16.0) gm/dL Chloride (98-107) mmol/L Carbon Dioxide (22-30) mmol/L BUN (7-17) mg/dL Creatinine (0.52-1.04) mg/dL Glucose (74-99) mg/dL POC Glucose (mg/dL) 234 H 222 H (70-110) mg/dL Ur Leukocyte Esterase Trace H (Negative) Urine Bacteria Rare H (None) /hpf 04/17/22 04/17/22 04/17/22 Range/Units 06:40 06:40 10:36 ABG pCO2 78 H* (35-45) mmHg ABG pO2 112 H (83-108) mmHg ABG HCO3 43 H* (21-25) mmol/L ABG Total CO2 45 H (19-24) mmol/L ABG O2 Saturation 98.8 H (94-97) % ABG Hematocrit 23 L (34.0-46.0) % Hemoglobin 7.5 L (11.4-16.0) gm/dL Chloride 90 L (98-107) mmol/L Carbon Dioxide 47 H* (22-30) mmol/L BUN 38 H (7-17) mg/dL Creatinine 1.64 H (0.52-1.04) mg/dL Glucose 136 H (74-99) mg/dL POC Glucose (mg/dL) 172 H (70-110) mg/dL Ur Leukocyte Esterase (Negative) Urine Bacteria (None) /hpf 04/17/22 Range/Units 11:40 ABG pCO2 (35-45) mmHg ABG pO2 (83-108) mmHg ABG HCO3 (21-25) mmol/L ABG Total CO2 (19-24) mmol/L ABG O2 Saturation (94-97) % ABG Hematocrit (34.0-46.0) % Hemoglobin (11.4-16.0) gm/dL Chloride (98-107) mmol/L Carbon Dioxide (22-30) mmol/L BUN (7-17) mg/dL Creatinine (0.52-1.04) mg/dL Glucose (74-99) mg/dL POC Glucose (mg/dL) 228 H (70-110) mg/dL Ur Leukocyte Esterase (Negative) Urine Bacteria (None) /hpf Assessment and Plan Assessment: Acute on chronic congestive heart failure, diastolic dysfunction, EF 50%, doubt pneumonia, pro-calcitonin 0.1. Recent COVID-19 pneumonia January 2022 with chronic fibrotic changes secondary to t he Covid infection as per pulmonary Chronic anemia, iron deficient Acute on chronic hypoxic, hypercapnic respiratory failure, secondary to all the above, wears 2.5 L NC O2 at home Moderate pulmonary hypertension Chronic Bilateral lower extremity cellulitis, MSSA on prior wound cultures of the last admission Chronic atrial fibrillation, newly diagnosed on prior visit, January 2022 CAD, history of CABG Hypertension hyperlipidemia Diabetes mellitus, hemoglobin A1c 6.6 Hypothyroidism History of bariatric surgery Morbid obesity, BMI 59.7 Plan: Continue on current medication regime ,monitoring and symptomatic treatment. Maintained on Diamox; Lasix on hold. ABGs pending. Close monitoring of renal function with repeat labs ordered for a.m. The impression and plan of care has been dictated as directed. : I performed a history and examination of this patient, discussed the same with the dictator. I agree with the dictator's note ,documented as a scribe. Any additional findings or plans will be noted.
[2022-04-17 17:07] LABS: Glucose,Whole Blood 320 mg/dL (70-110)
[2022-04-17 20:34] LABS: Glucose,Whole Blood 271 mg/dL (70-110)
[2022-04-17] MEDS: ATORVASTATIN 40 MG TAB PO SCH (21:20)
[2022-04-17] MEDS: MIRTAZAPINE 15 MG TAB PO SCH (21:20)
[2022-04-18] MEDS: LEVOTHYROXINE 50 MCG TAB PO SCH (06:18)
[2022-04-18] MEDS: PANTOPRAZOLE 40 MG TABLET PO SCH (06:18)
[2022-04-18 06:55] LABS: Glucose,Whole Blood 214 mg/dL (70-110)
[2022-04-18] MEDS: INSULIN ASPART (NovoLOG) 100 UNIT/ML VIAL SQ SCH ×7 (08:18→20:46)
[2022-04-18] MEDS: acetaZOLAMIDE 250 MG TAB PO SCH ×3 (08:18→20:45)
[2022-04-18] MEDS: ISOSORBIDE MONONITRATE ER 30 MG TAB.ER.24H PO SCH (08:18)
[2022-04-18] MEDS: POTASSIUM CHLORIDE ER 20 MEQ TAB.ER PO SCH (08:18)
[2022-04-18] MEDS: METOPROLOL TARTRATE 50 MG TAB PO SCH ×3 (08:18→20:45)
[2022-04-18] MEDS: APIXABAN 5 MG TAB PO SCH ×2 (08:18→20:45)
[2022-04-18] MEDS: OXYBUTYNIN CHLORIDE 5 MG TAB PO SCH ×2 (08:18→17:00)
[2022-04-18] MEDS: GABAPENTIN 300 MG CAP PO SCH ×2 (08:18→20:45)
[2022-04-18] MEDS: INSULIN DETEMIR (LEVEMIR) 100 UNIT/ML SYR SQ SCH (08:18)
[2022-04-18] MEDS: CEPHALEXIN 250 MG CAP PO SCH ×3 (08:19→20:45)
[2022-04-18 08:59] LABS: Calcium 8.7 mg/dL (8.4-10.2); Magnesium 1.9 mg/dL (1.6-2.3); Potassium 4.4 mmol/L (3.5-5.1)
--- NOTE | 2022-04-18 10:21 | P.PN ---
Subjective Patient is seen in follow-up for acute kidney injury. On oral diuretics. Has a Lynne catheter. Nonoliguric. Blood pressure stable. Oral intake fair. No vomiting or diarrhea. Denies chest pain or shortness of breath. Bicarb improved. Vital signs are stable. General: Awake. No acute distress. HEENT: Head exam is unremarkable. LUNGS: Breath sounds decreased. HEART: Rate and Rhythm are regular. ABDOMEN: Soft, obese. EXTREMITITES: 1+ edema. Objective - Vital Signs Vital signs: Vital Signs Temp 97.8 F 04/18/22 08:15 Pulse 90 04/18/22 08:15 Resp 18 04/18/22 08:15 BP 115/66 04/18/22 08:15 Pulse Ox 99 04/18/22 08:15 FiO2 35 04/18/22 03:12 Intake & Output 04/17/22 04/18/22 04/18/22 18:59 06:59 18:59 Intake Total 980 120 Output Total 1700 350 Balance -1700 630 120 Weight 148 kg Intake: Oral 980 120 Output: Urine 1700 350 Other: Voiding Method Diaper Diaper Diaper External Catheter External Catheter External Catheter - Labs CBC & Chem 7: 04/15/22 07:27 04/18/22 07:41 Labs: Abnormal Lab Results - Last 24 Hours (Table) 04/17/22 04/17/22 04/17/22 Range/Units 10:36 11:40 17:03 ABG pCO2 78 H* (35-45) mmHg ABG pO2 112 H (83-108) mmHg ABG HCO3 43 H* (21-25) mmol/L ABG Total CO2 45 H (19-24) mmol/L ABG O2 Saturation 98.8 H (94-97) % ABG Hematocrit 23 L (34.0-46.0) % Hemoglobin 7.5 L (11.4-16.0) gm/dL Chloride (98-107) mmol/L Carbon Dioxide (22-30) mmol/L BUN (7-17) mg/dL Creatinine (0.52-1.04) mg/dL Glucose (74-99) mg/dL POC Glucose (mg/dL) 228 H 320 H (70-110) mg/dL 04/17/22 04/18/22 04/18/22 Range/Units 20:32 06:53 07:41 ABG pCO2 (35-45) mmHg ABG pO2 (83-108) mmHg ABG HCO3 (21-25) mmol/L ABG Total CO2 (19-24) mmol/L ABG O2 Saturation (94-97) % ABG Hematocrit (34.0-46.0) % Hemoglobin (11.4-16.0) gm/dL Chloride 91 L (98-107) mmol/L Carbon Dioxide 41 H* (22-30) mmol/L BUN 37 H (7-17) mg/dL Creatinine 1.49 H (0.52-1.04) mg/dL Glucose 179 H (74-99) mg/dL POC Glucose (mg/dL) 271 H 214 H (70-110) mg/dL Assessment and Plan Plan: Assessment: 1. Acute kidney injury mostly prerenal secondary to cardiorenal syndrome and also concern for contrast-induced acute kidney injury. Patient received IV contrast for CT on 04/12/2022. function improved. Creatinine 1.49. Baseline creatinine near 1. No hydronephrosis noted on kidney ultrasound. UA benign. 2. Metabolic alkalosis secondary to diuresis. improved with Diamox. 3. Diabetes mellitus. 4. Acute on chronic diastolic CHF with mild aortic stenosis, severe tricuspid regurgitation and pulmonary hypertension. 5. Volume overload. improved with diuresis. 6. Anemia. Iron deficiency noted. Plan: resume oral Lasix 40 mg once daily - increase to twice a day starting 04/20/2022. Maintain Diamox for another 24 hours. Maintain IV iron. Continue to monitor renal function and urine output. repeat BMP and magnesium level 2-3 days postdischarge. Follow up outpatient in 1 week
[2022-04-18 11:44] LABS: Glucose,Whole Blood 366 mg/dL (70-110)
--- NOTE | 2022-04-18 12:03 | P.PN ---
Subjective 04/14/22 This is a 72-year-old female admitted from [facility] subacute rehab with acute on chronic hypoxic respiratory failure, multifactorial, wears 2.5 L nasal cannula O2 at home. Discharged last week to subacute rehab for acute on chronic CHF with increase in home dose of oral diuretics/Lasix as per cardiology. Recent COVID-19 pneumonia January 2022 with chronic fibrotic changes secondary to the Covid infection as per pulmonary's evaluation on prior admission.patient also received a couple units packed RBCs on last admission for acute on chronic anemia with negative Hemoccult,currently stable at 7.5. Maintaining O2 sats of 100% on 4 L nasal cannula, titrated down, currently maintaining O2 sats of 96% on 2 L nasal cannula (baseline). Denies chest pain, palpitations or shortness of breath. Denies cough. Denies lightheadedness dizziness or focal deficits. Consuming 75% of breakfast. Denies nausea, vomiting or diarrhea. No abdominal pain. Renal function stable. Electrolytes within normal limits. Right lower extremity cellulitis, wound cultures of last week reporting MSSA. EKG reported atrial fibrillation with mild tachycardia, low 100s, right bundle branch block, troponin 0.025, proBNP 7280. Anticoagulated on Eliquis. Chest x-ray reporting cardiomegaly, mild pulmonary vascular congestion. D-dimer 1.55. Chest CTA reported no PE with limited evaluation of segmental and subsegmental branches, peripheral groundglass pulmonary opacities with reactive mediastinal lymphadenopathy in a patient with recent Covid infection , cardiomegaly with pulmonary vascular congestion and trace bilateral pleural effusions, suspected underlying component of CHF .Coronavirus, influenza type A and type B not detected. Diuresing well on Lasix IV push with 24 hour I&O reflecting a negative fluid balance. Hyperglycemic. IV push diuretics initiated, continues on beta josh 04/14/2022 diuresing well on Lasix IV push 24-hour I&O reflecting a negative fluid balance, renal function worsening. Diuretics converted to oral. Maintained on Levaquin, pro-calcitonin 0.1. Afebrile. Telemetry controlled A. fib. Maintaining O2 sats in the high 90s on 2 L nasal cannula. 04/15/2022 BiPAP during the night and after lunch yesterday. Currently maintaining O2 sats in the high 90s on 2 L nasal cannula. Renal function worsening yesterday, transitioned to oral Lasix , creatinine higher today, 1.45. Afebrile, normal WBC. 04/16/2022 continues on fluid restrictions, diuretics adjusted to oral Lasix with Diamox ordered, bicarb yesterday 42 with worsening renal function. Labs pending. JEANETTE inhibitor decreased. Blood pressure stable. Denies chest pain, palpitations or shortness of breath. Blood sugars improving. 04/17/2022 creatinine 1.64, bicarb worsening, increased to 47. Lasix placed on hold, continues on Diamox. Requiring BiPAP at night and will require a subacute rehab. Maintaining O2 sats in the 90s on 2 L nasal cannula. Hyperglycemics, blood sugars improving. 04/18/2022: Patient remains on BiPAP at night. She is significantly fatigued today. She denies any chest pains pressures, shortness of breath. We going rehabilitation upon discharge. She remains afebrile. Heart regular rate and normal blood pressure. She is 99% on 2 L of oxygen via nasal cannula. I's and O's show 240 out, Labs reviewed showed CO2 41 BUN 37 creatinine 1.49. Glucose 179, magnesium 1.9 Nephrology is following. They had her resume her oral Lasix and continue Diamox for another 24 hours. She is on IV iron. Pulmonology as indicated that she can be discharged. We're waiting on ECF placement of her. Objective - Vital Signs Vital signs: Vital Signs Temp 97.8 F 04/18/22 08:15 Pulse 90 04/18/22 08:15 Resp 18 04/18/22 08:15 BP 115/66 04/18/22 08:15 Pulse Ox 99 04/18/22 08:15 FiO2 35 04/18/22 03:12 Intake & Output 04/17/22 04/18/22 04/18/22 18:59 06:59 18:59 Intake Total 980 120 Output Total 1700 350 Balance -1700 630 120 Weight 148 kg Intake: Oral 980 120 Output: Urine 1700 350 Other: Voiding Method Diaper Diaper Diaper External Catheter External Catheter External Catheter - Exam GENERAL: alert and oriented 3, sitting up in bed , no acute distress. She appears rather somnolent NECK: Supple, No JVD. CARDIOVASCULAR: S1, S2 regular,irregular. Systolic murmur RESPIRATION: Unlabored, Bilateral air entry, scattered rhonchi ,fine bibasilar crackles ABDOMEN: Soft, obese, nontender . No guarding. no masses palpable. Bowel sounds heard. LEGS:Chronic venous stasis with bilateral lower extremity edema, right lower e xtremity dressing clean dry and intact, no clubbing, no cyanosis.No calf tenderness. NERVOUS SYSTEM: Cranial N 2-12 grossly normal. No focal deficits. Skin: Warm and dry, no rash. - Labs CBC & Chem 7: 04/15/22 07:27 04/18/22 07:41 Labs: Abnormal Lab Results - Last 24 Hours (Table) 04/17/22 04/17/22 04/17/22 Range/Units 11:40 17:03 20:32 Chloride (98-107) mmol/L Carbon Dioxide (22-30) mmol/L BUN (7-17) mg/dL Creatinine (0.52-1.04) mg/dL Glucose (74-99) mg/dL POC Glucose (mg/dL) 228 H 320 H 271 H (70-110) mg/dL 04/18/22 04/18/22 04/18/22 Range/Units 06:53 07:41 11:43 Chloride 91 L (98-107) mmol/L Carbon Dioxide 41 H* (22-30) mmol/L BUN 37 H (7-17) mg/dL Creatinine 1.49 H (0.52-1.04) mg/dL Glucose 179 H (74-99) mg/dL POC Glucose (mg/dL) 214 H 366 H (70-110) mg/dL Assessment and Plan Plan: Acute on chronic congestive heart failure, diastolic dysfunction, EF 50%, Recent COVID-19 pneumonia January 2022 with chronic fibrotic changes secondary to the Covid infection as per pulmonary: Chronic anemia, iron deficient Acute on chronic hypoxic, hypercapnic respiratory failure, secondary to all the above, wears 2.5 L NC O2 at home Moderate pulmonary hypertension Chronic Bilateral lower extremity cellulitis, MSSA on prior wound cultures of the last admission Chronic atrial fibrillation, newly diagnosed on prior visit, January 2022 CAD, history of CABG Hypertension hyperlipidemia Diabetes mellitus, hemoglobin A1c 6.6 Hypothyroidism History of bariatric surgery Morbid obesity, BMI 59.7 Plan: She'll remain on Diamox per pulmonology, Elequis for her atrial fibrillation, she finished Keflex for the cellulitis previously had, she'll remain on insulin detemir 50 units daily and insulin scale. She'll continue metoprolol for heart rate control. Continue Santyl for her previous cellulitis. Continue put Silvadene to her lower extremities keep wrap, continue pantoprazole for GI prophylaxis, she'll continue on furosemide orally daily per nephrology. Repeat labs in a.m., reevaluate next 24 hours, plan placement on Wednesday with BiPAP
--- NOTE | 2022-04-18 12:11 | P.PN ---
Subjective Progress Note Date: 04/18/22 Principal diagnosis: Shortness of breath. Pulmonary consultation dated 04/13/2022. 72-year-old female seen in the emergency room, on April 12. She presented to the emergency room, from the nursing facility with low saturations. She apparently told the ER personnel she had no complaints, and felt fine. She does have a history of hypoxemic and hypercapnic respiratory failure, as well as congestive heart failure. She does wear oxygen at home. Currently, the patient is on BiPAP, with settings of 14/5 and 35%. She was recently inpatient between April 06 and April 10. She's getting saline at KVO. She is also on IV Levaquin. She appears in no distress. She was sleeping when I first went into the room. White count 8.8, hemoglobin 7.5, hematocrit 24.8, and platelet count 229,000. D-dimer was 1.55. PT 12.8. Blood gases show a PaO2 of 37, pCO2 of 59, and a pH is 7.46. That was on room air. Sodium 140, potassium 4.1, chlorides 92, CO2 39, BUN 39, and creatinine 0.88. N-terminal proBNP was 7280. A nasal swab for coronavirus was negative. Influenza studies were also negative. A pro-calcitonin level was ordered by me. Chest x-ray was consistent in my opinion with CHF. CT angiogram showed no evidence of central pulmonary emboli. In addition, the computed tomography scan was consistent with CHF. Progress note dated 04/14/2022. The patient is seen today in room 363. Yesterday, she was on BiPAP. Currently, she is on 2 L. Her pro-calcitonin level is very low, so we will discontinue the Levaquin. She is getting saline, at 10 mL an hour. On BiPAP, her BiPAP settings are 14/5 and 35%. In fact, she is asking for the BiPAP as we speak. She is feeling better today than yesterday. CT angiogram was negative for pulmonary embolism. Sodium 141, potassium 4, chlorides 93, CO2 42, anion gap normal, BUN 41, and creatinine 1.20. Progress note dated 04/15/2022. The patient is again seen in room 363. Like yesterday, she was sleepy, and very lethargic. She's currently on oxygen at 2 L. She's not receiving any IV fluids. The BiPAP device is in the room and I suspect that she has used BiPAP on and off since yesterday. Laboratory data today includes a white count of 6.8, hemoglobin 7.6, hematocrit 25.3, and a platelet count of 239,000. Sodium 140, potassium 4.2, chlorides 92, CO2 42, BUN 42, and creatinine 1.45. Progress note dated 04/16/2022. 72-year-old female again seen in room 363. The patient is currently on 2 L of oxygen. She's getting saline at 10 mL an hour. He spent the entire night on BiPAP, with settings of 14/5, and 35%. She used to have a CPAP device, but apparently it does not work. Clinically, she is much more awake today. No new labs today she had other than a glucose of 203. She denies any shortness of breath, cough, wheezing, or phlegm production. She also denies any chest pain or chest discomfort. She denies any fever or chills. She denies any GI or symptoms. Progress note dated 04/17/2022. 72-year-old obese female seen in room 363. She is currently on 2 L of oxygen. She uses BiPAP at night team, with settings of 14/5 and 35%. The patient's getting saline at KVO. Clinically she is doing better. She does need to use either CPAP or BiPAP at nighttime. BiPAP is preferred. She is clinically feeling better. Sodium 141, potassium 4.1, chlorides 90, CO2 47, BUN 38, cr eatinine 1.64. Progress note dated 04/18/2022. 72-year-old obese white female, again seen in room 363. She's currently on 2 L of oxygen. At nighttime, the patient uses BiPAP, with settings of 14/5 and 35%. The patient is receiving saline at 10 mL an hour. Laboratory data today includes a sodium 138, potassium 4.4, chlorides 91, CO2 41, with a BUN of 37 and a creatinine of 1.49. Glucose 366. No recent chest x-ray to review. Objective - Vital Signs Vital signs: Vital Signs Temp 97.8 F 04/18/22 08:15 Pulse 90 04/18/22 08:15 Resp 18 04/18/22 08:15 BP 115/66 04/18/22 08:15 Pulse Ox 99 04/18/22 08:15 FiO2 35 04/18/22 03:12 Intake & Output 04/17/22 04/18/22 04/18/22 18:59 06:59 18:59 Intake Total 980 120 Output Total 1700 350 Balance -1700 630 120 Weight 148 kg Intake: Oral 980 120 Output: Urine 1700 350 Other: Voiding Method Diaper Diaper Diaper External Catheter External Catheter External Catheter - Exam No acute distress, awake and alert, currently on 2 L nasal cannula. No audible wheezing, or respiratory distress. No use of accessory muscles. HEENT examination is grossly unremarkable. Neck supple. Full range of motion. No adenopathy thyromegaly or neck vein distention. Cardiovascular examination reveals regular rhythm rate. S1-S2 normal. No S3 or S4. No discernible murmur noted. Heart sounds are distant. Heart rate 90 bpm. Lungs reveal diffuse bilateral rhonchi, and bilateral crackles. Breath sounds equal bilaterally, but diminished throughout. No wheezes. Saturations are in 99 % on 2 L. Abdomen soft bowel sounds are heard. No masses or tenderness. Extremities are intact. No cyanosis or clubbing. Mild to moderate edema is noted. Skin is without rash or lesion. Neurologic examination is brief but nonfocal. - Labs CBC & Chem 7: 04/15/22 07:27 04/18/22 07:41 Labs: Abnormal Lab Results - Last 24 Hours (Table) 04/17/22 04/17/22 04/18/22 Range/Units 17:03 20:32 06:53 Chloride (98-107) mmol/L Carbon Dioxide (22-30) mmol/L BUN (7-17) mg/dL Creatinine (0.52-1.04) mg/dL Glucose (74-99) mg/dL POC Glucose (mg/dL) 320 H 271 H 214 H (70-110) mg/dL 04/18/22 04/18/22 Range/Units 07:41 11:43 Chloride 91 L (98-107) mmol/L Carbon Dioxide 41 H* (22-30) mmol/L BUN 37 H (7-17) mg/dL Creatinine 1.49 H (0.52-1.04) mg/dL Glucose 179 H (74-99) mg/dL POC Glucose (mg/dL) 366 H (70-110) mg/dL Assessment and Plan Assessment: Acute on chronic hypoxemic and hypercapnic respiratory failure, most likely related to fluid overload/CHF. Doubt pneumonia, as pro-calcitonin level was quite low. History of atrial fibrillation. History of CAD, status post 2 vessel bypass grafting, 1996. History of diabetes mellitus. Hyperlipidemia. Hypertension. Sleep apnea syndrome. Hypothyroidism. History of diabetic retinopathy and neuropathy. History of gout. Stage III chronic kidney disease. Morbid obesity. Multiple other medical problems and comorbidities. Plan: Plan dated 04/13/2022. A pro-calcitonin level has been ordered. The patient is currently on Levaquin. The patient most likely has fluid overload/CHF. Labs, x-rays, medications are reviewed. The patient's overall prognosis remains guarded. She was recently inpatient between April 06 and April 10 with a similar episode. We will continue to follow make recommendations along the way. Prognosis is not good. If the pro-calcitonin level comes back low, antibiotics can be discontinued. Plan dated 04/14/2022. The patient is feeling better today. She wants to go back on BiPAP after lunch. Currently on 2 L with saturations of 98%. The pro-calcitonin level was low, and the patient's Levaquin will be discontinued. Labs, x-rays, and medications are all reviewed. The patient is getting diuretics as per cardiology. No additional recommendations are made. Pneumonia seems much less likely. We will continue to follow make recommendations along the way. Progress note dated 04/15/2022. The patient remains on appropriate medications. The patient is receiving a factor X a inhibitor, as well as Lipitor, Lasix, and Keflex. The patient is also receiving her thyroid medication, as well as GI prophylaxis. Labs, x-rays, and medications are reviewed. The patient will continue to use BiPAP intermittently. No additional recommendations are made. Prognosis is very guarded. Progress note dated 04/16/2022. The patient is doing much better. She is much more awake and alert. She did used to BiPAP throughout the night last night. She's currently on 2 L of oxygen. Her saturations are in the mid 90s. She feels much improved. She denies any shortness of breath, difficulty breathing, cough, wheezing, phlegm production, chest pain or chest discomfort. No chest x-ray today. No significant lab work today as yet. Hopeful discharge back to the [facility] in the near future. Progress note dated 04/17/2022. Labs, x-rays, and medications are reviewed. Her saturations are 97% on 2 L. The FiO2 can be reduced even further. Saturations in this patient should be in the 88-92% range. Saturations higher than that, with the use of any sedatives, hypnotics, narcotics, or tranquilizers, will cause the patient had acute on chronic hypercapnic respiratory failure. She does need to use BiPAP when she goes back to the [facility]. Overall prognosis remains guarded. From my perspective, the patient could be discharged. X-rays labs and medications are all reviewed. Progress note dated 04/18/2022. Labs, x-rays, and medications are reviewed. The patient remains on a small amount of saline, and 2 L of oxygen by nasal cannula. At nighttime, the patient uses BiPAP, with settings of 14/5 and 35%. The patient's doing reasonably well. I do mention to the nurses importance of avoiding all sorts of sedatives, hypnotics, narcotics, and/or tranquilizers. The patient does have acute on chronic hypercapnic respiratory failure. The patient should use BiPAP when she goes back to the [facility]. Overall prognosis remains guarded. Time with Patient: Less than 30
[2022-04-18] MEDS: SODIUM FERRIC GLUCONAT-SUCROSE 125 MG in SODIUM CHLORIDE 0.9% 100 ML IVPB SCH (12:23)
[2022-04-18] MEDS: FUROSEMIDE 40 MG TAB PO SCH (12:24)
[2022-04-18 16:32] LABS: Glucose,Whole Blood 363 mg/dL (70-110)
[2022-04-18 20:23] LABS: Glucose,Whole Blood 275 mg/dL (70-110)
[2022-04-18] MEDS: ATORVASTATIN 40 MG TAB PO SCH (20:45)
[2022-04-18] MEDS: MIRTAZAPINE 15 MG TAB PO SCH (20:45)
[2022-04-18 23:27] LABS: Glucose,Whole Blood 207 mg/dL (70-110)
[2022-04-19 06:17] LABS: Glucose,Whole Blood 168 mg/dL (70-110)
[2022-04-19] MEDS: LEVOTHYROXINE 50 MCG TAB PO SCH (06:55)
[2022-04-19] MEDS: INSULIN DETEMIR (LEVEMIR) 100 UNIT/ML SYR SQ SCH (06:55)
[2022-04-19] MEDS: PANTOPRAZOLE 40 MG TABLET PO SCH (06:55)
[2022-04-19] MEDS: INSULIN ASPART (NovoLOG) 100 UNIT/ML VIAL SQ SCH ×7 (06:55→20:26)
[2022-04-19 06:58] LABS: Anisocytosis Slight; Basophils % (A) 0 %; Eosinophils # (A) 0.3 k/uL (0-0.7); Eosinophils % (A) 4 %; HCT 25.8 % (34.0-46.0); HGB 7.4 gm/dL (11.4-16.0); Hypochromasia Marked; Lymphocytes # (A) 0.9 k/uL (1.0-4.8); Lymphocytes % (A) 12 %; MCH 27.1 pg (25.0-35.0); MCHC 28.6 g/dL (31.0-37.0); MCV 94.7 fL (80.0-100.0); Mean Platelet Volume 8.5; Monocytes # (A) 0.4 k/uL (0-1.0); Monocytes % (A) 5 %; Neutrophils % (A) 78 %; Platelet Count 250 k/uL (150-450); RBC 2.73 m/uL (3.80-5.40); RDW 16.6 % (11.5-15.5); WBC 7.7 k/uL (3.8-10.6)
[2022-04-19 07:15] LABS: Calcium 8.6 mg/dL (8.4-10.2); Magnesium 1.9 mg/dL (1.6-2.3); Potassium 4.5 mmol/L (3.5-5.1)
[2022-04-19] MEDS: CEPHALEXIN 250 MG CAP PO SCH ×3 (09:21→20:26)
[2022-04-19] MEDS: acetaZOLAMIDE 250 MG TAB PO SCH ×2 (09:21→20:26)
[2022-04-19] MEDS: OXYBUTYNIN CHLORIDE 5 MG TAB PO SCH ×2 (09:21→17:31)
[2022-04-19] MEDS: FUROSEMIDE 40 MG TAB PO SCH (09:21)
[2022-04-19] MEDS: POTASSIUM CHLORIDE ER 20 MEQ TAB.ER PO SCH (09:21)
[2022-04-19] MEDS: ISOSORBIDE MONONITRATE ER 30 MG TAB.ER.24H PO SCH (09:21)
[2022-04-19] MEDS: APIXABAN 5 MG TAB PO SCH ×2 (09:21→20:26)
[2022-04-19] MEDS: METOPROLOL TARTRATE 50 MG TAB PO SCH ×3 (09:21→20:26)
[2022-04-19] MEDS: GABAPENTIN 300 MG CAP PO SCH ×2 (09:21→20:26)
--- NOTE | 2022-04-19 09:35 | P.PN ---
Subjective Patient is seen in follow-up for acute kidney injury. On oral diuretics. Nonoliguric. Blood pressure stable. Oral intake fair. No vomiting or d iarrhea. Denies chest pain or shortness of breath. Bicarb 44. Vital signs are stable. General: Awake. No acute distress. HEENT: Head exam is unremarkable. LUNGS: Breath sounds decreased. HEART: Rate and Rhythm are regular. ABDOMEN: Soft, obese. EXTREMITITES: 1+ edema. Objective - Vital Signs Vital signs: Vital Signs Temp 98.0 F 04/19/22 03:28 Pulse 72 04/19/22 03:28 Resp 18 04/19/22 03:28 BP 122/60 04/19/22 03:28 Pulse Ox 95 04/19/22 03:28 FiO2 35 04/19/22 03:50 Intake & Output 04/18/22 04/19/22 04/19/22 18:59 06:59 18:59 Intake Total 360 Output Total 375 500 Balance -15 -500 Weight 149 kg Intake: Oral 360 Output: Urine 375 500 Other: Voiding Method Diaper Diaper External Catheter External Catheter - Labs CBC & Chem 7: 04/19/22 06:32 04/19/22 06:32 Labs: Abnormal Lab Results - Last 24 Hours (Table) 04/18/22 04/18/22 04/18/22 Range/Units 07:41 11:43 16:30 RBC (3.80-5.40) m/uL Hgb (11.4-16.0) gm/dL Hct (34.0-46.0) % MCHC (31.0-37.0) g/dL RDW (11.5-15.5) % Lymphocytes # (1.0-4.8) k/uL Chloride 91 L (98-107) mmol/L Carbon Dioxide 41 H* (22-30) mmol/L BUN 37 H (7-17) mg/dL Creatinine 1.49 H (0.52-1.04) mg/dL Glucose 179 H (74-99) mg/dL POC Glucose (mg/dL) 366 H 363 H (70-110) mg/dL 04/18/22 04/18/22 04/19/22 Range/Units 20:19 23:25 06:16 RBC (3.80-5.40) m/uL Hgb (11.4-16.0) gm/dL Hct (34.0-46.0) % MCHC (31.0-37.0) g/dL RDW (11.5-15.5) % Lymphocytes # (1.0-4.8) k/uL Chloride (98-107) mmol/L Carbon Dioxide (22-30) mmol/L BUN (7-17) mg/dL Creatinine (0.52-1.04) mg/dL Glucose (74-99) mg/dL POC Glucose (mg/dL) 275 H 207 H 168 H (70-110) mg/dL 04/19/22 04/19/22 Range/Units 06:32 06:32 RBC 2.73 L (3.80-5.40) m/uL Hgb 7.4 L (11.4-16.0) gm/dL Hct 25.8 L (34.0-46.0) % MCHC 28.6 L (31.0-37.0) g/dL RDW 16.6 H (11.5-15.5) % Lymphocytes # 0.9 L (1.0-4.8) k/uL Chloride 92 L (98-107) mmol/L Carbon Dioxide 44 H* (22-30) mmol/L BUN 37 H (7-17) mg/dL Creatinine 1.62 H (0.52-1.04) mg/dL Glucose 148 H (74-99) mg/dL POC Glucose (mg/dL) (70-110) mg/dL Assessment and Plan Plan: Assessment: 1. Acute kidney injury mostly prerenal secondary to cardiorenal syndrome and also concern for contrast-induced acute kidney injury. Patient received IV co ntrast for CT on 04/12/2022. renal function a little worse today from diuresis. Baseline creatinine near 1. No hydronephrosis noted on kidney ultrasound. UA benign. 2. Metabolic alkalosis secondary to diuresis. on Diamox. 3. Diabetes mellitus. 4. Acute on chronic diastolic CHF with mild aortic stenosis, severe tricuspid regurgitation and pulmonary hypertension. 5. Volume overload. improved with diuresis. 6. Anemia. Iron deficiency noted. 7. Acute on chronic hypercapnic respiratory failure. Plan: Maintain oral Lasix 40 mg once daily - dose may need to be increased depending on her volume status in the next 24-48 hours. Maintain Diamox for now - change dose to 500 mg twice daily. Maintain IV iron. Continue to monitor renal function and urine output. repeat BMP and magnesium level 2-3 days postdischarge. Follow up outpatient in 1 week.
--- NOTE | 2022-04-19 10:56 | P.PN ---
Subjective Progress Note Date: 04/19/22 Principal diagnosis: Shortness of breath. Pulmonary consultation dated 04/13/2022. 72-year-old female seen in the emergency room, on April 12. She presented to the emergency room, from the nursing facility with low saturations. She apparently told the ER personnel she had no complaints, and felt fine. She does have a history of hypoxemic and hypercapnic respiratory failure, as well as congestive heart failure. She does wear oxygen at home. Currently, the patient is on BiPAP, with settings of 14/5 and 35%. She was recently inpatient between April 06 and April 10. She's getting saline at KVO. She is also on IV Levaquin. She appears in no distress. She was sleeping when I first went into the room. White count 8.8, hemoglobin 7.5, hematocrit 24.8, and platelet count 229,000. D-dimer was 1.55. PT 12.8. Blood gases show a PaO2 of 37, pCO2 of 59, and a pH is 7.46. That was on room air. Sodium 140, potassium 4.1, chlorides 92, CO2 39, BUN 39, and creatinine 0.88. N-terminal proBNP was 7280. A nasal swab for coronavirus was negative. Influenza studies were also negative. A pro-calcitonin level was ordered by me. Chest x-ray was consistent in my opinion with CHF. CT angiogram showed no evidence of central pulmonary emboli. In addition, the computed tomography scan was consistent with CHF. Progress note dated 04/14/2022. The patient is seen today in room 363. Yesterday, she was on BiPAP. Currently, she is on 2 L. Her pro-calcitonin level is very low, so we will discontinue the Levaquin. She is getting saline, at 10 mL an hour. On BiPAP, her BiPAP settings are 14/5 and 35%. In fact, she is asking for the BiPAP as we speak. She is feeling better today than yesterday. CT angiogram was negative for pulmonary embolism. Sodium 141, potassium 4, chlorides 93, CO2 42, anion gap normal, BUN 41, and creatinine 1.20. Progress note dated 04/15/2022. The patient is again seen in room 363. Like yesterday, she was sleepy, and very lethargic. She's currently on oxygen at 2 L. She's not receiving any IV fluids. The BiPAP device is in the room and I suspect that she has used BiPAP on and off since yesterday. Laboratory data today includes a white count of 6.8, hemoglobin 7.6, hematocrit 25.3, and a platelet count of 239,000. Sodium 140, potassium 4.2, chlorides 92, CO2 42, BUN 42, and creatinine 1.45. Progress note dated 04/16/2022. 72-year-old female again seen in room 363. The patient is currently on 2 L of oxygen. She's getting saline at 10 mL an hour. He spent the entire night on BiPAP, with settings of 14/5, and 35%. She used to have a CPAP device, but apparently it does not work. Clinically, she is much more awake today. No new labs today she had other than a glucose of 203. She denies any shortness of breath, cough, wheezing, or phlegm production. She also denies any chest pain or chest discomfort. She denies any fever or chills. She denies any GI or symptoms. Progress note dated 04/17/2022. 72-year-old obese female seen in room 363. She is currently on 2 L of oxygen. She uses BiPAP at night team, with settings of 14/5 and 35%. The patient's getting saline at KVO. Clinically she is doing better. She does need to use either CPAP or BiPAP at nighttime. BiPAP is preferred. She is clinically feeling better. Sodium 141, potassium 4.1, chlorides 90, CO2 47, BUN 38, cr eatinine 1.64. Progress note dated 04/18/2022. 72-year-old obese white female, again seen in room 363. She's currently on 2 L of oxygen. At nighttime, the patient uses BiPAP, with settings of 14/5 and 35%. The patient is receiving saline at 10 mL an hour. Laboratory data today includes a sodium 138, potassium 4.4, chlorides 91, CO2 41, with a BUN of 37 and a creatinine of 1.49. Glucose 366. No recent chest x-ray to review. Progress note dated 04/19/2022. 72-year-old obese white female, seen again in room 363. She remains on 2 L of oxygen, and is also receiving saline at 10 mL an hour. At nighttime, she is on BiPAP, with settings of 14/5 and 35%. Clinically, the patient has improved. She is feeling better. She is much less short of breath. White count 7.7, hemoglobin 7.4, hematocrit 25.8, and platelet count 250,000. Sodium 140, potassium 4.5, chlorides 92, CO2 44, BUN 37, and creatinine 1.62. Objective - Vital Signs Vital signs: Vital Signs Temp 98.2 F 04/19/22 09:05 Pulse 80 04/19/22 09:05 Resp 16 04/19/22 09:05 BP 117/58 04/19/22 09:05 Pulse Ox 100 04/19/22 09:05 FiO2 35 04/19/22 03:50 Intake & Output 04/18/22 04/19/22 04/19/22 18:59 06:59 18:59 Intake Total 360 118 Output Total 375 500 Balance -15 -500 118 Weight 149 kg Intake: Oral 360 118 Output: Urine 375 500 Other: Voiding Method Diaper Diaper Diaper External Catheter External Catheter External Catheter - Exam No acute distress, awake and alert, currently on 2 L nasal cannula. No audible wheezing, or respiratory distress. No use of accessory muscles. HEENT examination is grossly unremarkable. Neck supple. Full range of motion. No adenopathy thyromegaly or neck vein distention. Cardiovascular examination reveals regular rhythm rate. S1-S2 normal. No S3 or S4. No discernible murmur noted. Heart sounds are distant. Heart rate 80 bpm. Lungs reveal diffuse bilateral rhonchi, and bilateral crackles. Breath sounds equal bilaterally, but diminished throughout. No wheezes. Saturations are in 98 % on 2 L. Abdomen soft bowel sounds are heard. No masses or tenderness. Extremities are intact. No cyanosis or clubbing. Mild to moderate edema is noted. Skin is without rash or lesion. Neurologic examination is brief but nonfocal. - Labs CBC & Chem 7: 04/19/22 06:32 04/19/22 06:32 Labs: Abnormal Lab Results - Last 24 Hours (Table) 04/18/22 04/18/22 04/18/22 Range/Units 11:43 16:30 20:19 RBC (3.80-5.40) m/uL Hgb (11.4-16.0) gm/dL Hct (34.0-46.0) % MCHC (31.0-37.0) g/dL RDW (11.5-15.5) % Lymphocytes # (1.0-4.8) k/uL Chloride (98-107) mmol/L Carbon Dioxide (22-30) mmol/L BUN (7-17) mg/dL Creatinine (0.52-1.04) mg/dL Glucose (74-99) mg/dL POC Glucose (mg/dL) 366 H 363 H 275 H (70-110) mg/dL 04/18/22 04/19/22 04/19/22 Range/Units 23:25 06:16 06:32 RBC (3.80-5.40) m/uL Hgb (11.4-16.0) gm/dL Hct (34.0-46.0) % MCHC (31.0-37.0) g/dL RDW (11.5-15.5) % Lymphocytes # (1.0-4.8) k/uL Chloride 92 L (98-107) mmol/L Carbon Dioxide 44 H* (22-30) mmol/L BUN 37 H (7-17) mg/dL Creatinine 1.62 H (0.52-1.04) mg/dL Glucose 148 H (74-99) mg/dL POC Glucose (mg/dL) 207 H 168 H (70-110) mg/dL 04/19/22 Range/Units 06:32 RBC 2.73 L (3.80-5.40) m/uL Hgb 7.4 L (11.4-16.0) gm/dL Hct 25.8 L (34.0-46.0) % MCHC 28.6 L (31.0-37.0) g/dL RDW 16.6 H (11.5-15.5) % Lymphocytes # 0.9 L (1.0-4.8) k/uL Chloride (98-107) mmol/L Carbon Dioxide (22-30) mmol/L BUN (7-17) mg/dL Creatinine (0.52-1.04) mg/dL Glucose (74-99) mg/dL POC Glucose (mg/dL) (70-110) mg/dL Assessment and Plan Assessment: Acute on chronic hypoxemic and hypercapnic respiratory failure, most likely related to fluid overload/CHF. Doubt pneumonia, as pro-calcitonin level was quite low. History of atrial fibrillation. History of CAD, status post 2 vessel bypass grafting, 1996. History of diabetes mellitus. Hyperlipidemia. Hypertension. Sleep apnea syndrome. Hypothyroidism. History of diabetic retinopathy and neuropathy. History of gout. Stage III chronic kidney disease. Morbid obesity. Multiple other medical problems and comorbidities. Plan: Plan dated 04/13/2022. A pro-calcitonin level has been ordered. The patient is currently on Levaquin. The patient most likely has fluid overload/CHF. Labs, x-rays, medications are reviewed. The patient's overall prognosis remains guarded. She was recently i npatient between April 06 and April 10 with a similar episode. We will continue to follow make recommendations along the way. Prognosis is not good. If the pro-calcitonin level comes back low, antibiotics can be discontinued. Plan dated 04/14/2022. The patient is feeling better today. She wants to go back on BiPAP after lunch. Currently on 2 L with saturations of 98%. The pro-calcitonin level was low, and the patient's Levaquin will be discontinued. Labs, x-rays, and medications are all reviewed. The patient is getting diuretics as per cardiology. No additional recommendations are made. Pneumonia seems much less likely. We will continue to follow make recommendations along the way. Progress note dated 04/15/2022. The patient remains on appropriate medications. The patient is receiving a factor X a inhibitor, as well as Lipitor, Lasix, and Keflex. The patient is also receiving her thyroid medication, as well as GI prophylaxis. Labs, x-rays, and medications are reviewed. The patient will continue to use BiPAP intermittently. No additional recommendations are made. Prognosis is very guarded. Progress note dated 04/16/2022. The patient is doing much better. She is much more awake and alert. She did used to BiPAP throughout the night last night. She's currently on 2 L of oxygen. Her saturations are in the mid 90s. She feels much improved. She denies any shortness of breath, difficulty breathing, cough, wheezing, phlegm production, chest pain or chest discomfort. No chest x-ray today. No significant lab work today as yet. [facility]. Progress note dated 04/17/2022. Labs, x-rays, and medications are reviewed. Her saturations are 97% on 2 L. The FiO2 can be reduced even further. Saturations in this patient should be in the 88-92% range. Saturations higher than that, with the use of any sedatives, hypnotics, narcotics, or tranquilizers, will cause the patient had acute on chronic hypercapnic respiratory failure. She does need to use BiPAP when [facility]. Overall prognosis remains guarded. From my perspective, the patient could be discharged. X-rays labs and medications are all reviewed. Progress note dated 04/18/2022. Labs, x-rays, and medications are reviewed. The patient remains on a small amount of saline, and 2 L of oxygen by nasal cannula. At nighttime, the patient uses BiPAP, with settings of 14/5 and 35%. The patient's doing reasonably well. I do mention to the nurses importance of avoiding all sorts of sedatives, hypnotics, narcotics, and/or tranquilizers. The patient does have acute on chronic hypercapnic respiratory failure. The patient should use BiPAP when [facility]. Overall prognosis remains guarded. Progress note dated 04/19/2022. The patient's doing better. She is hoping to be discharged back to [facility] tomorrow. The patient is using the BiPAP at nighttime, and it does seem to be helping. She is much more awake and alert during the daytime. I also mentioned to the nurses they could probably turn down her oxygen a bit, except saturations in the 90% range. Also, it is important that she does not get any hypnotics or narcotics. Also sedatives should be avoided. Overall prognosis remains guarded. We will continue to follow make recommendations along the way. Labs, x-rays, and medications are all reviewed. Time with Patient: Less than 30
[2022-04-19 11:13] LABS: Calcium 8.8 mg/dL (8.4-10.2); Potassium 4.2 mmol/L (3.5-5.1)
[2022-04-19 11:34] LABS: Glucose,Whole Blood 159 mg/dL (70-110)
[2022-04-19] MEDS ORDERED: bisacodyL 10 MG SUPP RECTAL ONE (12:26)
[2022-04-19] MEDS: SODIUM FERRIC GLUCONAT-SUCROSE 125 MG in SODIUM CHLORIDE 0.9% 100 ML IVPB SCH (12:45)
--- NOTE | 2022-04-19 12:50 | P.PN ---
Subjective 04/14/22 This is a 72-year-old female admitted from [facility] subacute rehab with acute on chronic hypoxic respiratory failure, multifactorial, wears 2.5 L nasal cannula O2 at home. Discharged last week to subacute rehab for acute on chronic CHF with increase in home dose of oral diuretics/Lasix as per cardiology. Recent COVID-19 pneumonia January 2022 with chronic fibrotic changes secondary to the Covid infection as per pulmonary's evaluation on prior admission.patient also received a couple units packed RBCs on last admission for acute on chronic anemia with negative Hemoccult,currently stable at 7.5. Maintaining O2 sats of 100% on 4 L nasal cannula, titrated down, currently maintaining O2 sats of 96% on 2 L nasal cannula (baseline). Denies chest pain, palpitations or shortness of breath. Denies cough. Denies lightheadedness dizziness or focal deficits. Consuming 75% of breakfast. Denies nausea, vomiting or diarrhea. No abdominal pain. Renal function stable. Electrolytes within normal limits. Right lower extremity cellulitis, wound cultures of last week reporting MSSA. EKG reported atrial fibrillation with mild tachycardia, low 100s, right bundle branch block, troponin 0.025, proBNP 7280. Anticoagulated on Eliquis. Chest x-ray reporting cardiomegaly, mild pulmonary vascular congestion. D-dimer 1.55. Chest CTA reported no PE with limited evaluation of segmental and subsegmental branches, peripheral groundglass pulmonary opacities with reactive mediastinal lymphadenopathy in a patient with recent Covid infection , cardiomegaly with pulmonary vascular congestion and trace bilateral pleural effusions, suspected underlying component of CHF .Coronavirus, influenza type A and type B not detected. Diuresing well on Lasix IV push with 24 hour I&O reflecting a negative fluid balance. Hyperglycemic. IV push diuretics initiated, continues on beta josh 04/14/2022 diuresing well on Lasix IV push 24-hour I&O reflecting a negative fluid balance, renal function worsening. Diuretics converted to oral. Maintained on Levaquin, pro-calcitonin 0.1. Afebrile. Telemetry controlled A. fib. Maintaining O2 sats in the high 90s on 2 L nasal cannula. 04/15/2022 BiPAP during the night and after lunch yesterday. Currently maintaining O2 sats in the high 90s on 2 L nasal cannula. Renal function worsening yesterday, transitioned to oral Lasix , creatinine higher today, 1.45. Afebrile, normal WBC. 04/16/2022 continues on fluid restrictions, diuretics adjusted to oral Lasix with Diamox ordered, bicarb yesterday 42 with worsening renal function. Labs pending. JEANETTE inhibitor decreased. Blood pressure stable. Denies chest pain, palpitations or shortness of breath. Blood sugars improving. 04/17/2022 creatinine 1.64, bicarb worsening, increased to 47. Lasix placed on hold, continues on Diamox. Requiring BiPAP at night and will require a subacute rehab. Maintaining O2 sats in the 90s on 2 L nasal cannula. Hyperglycemics, blood sugars improving. 04/18/2022: Patient remains on BiPAP at night. She is significantly fatigued today. She denies any chest pains pressures, shortness of breath. We going rehabilitation upon discharge. She remains afebrile. Heart regular rate and normal blood pressure. She is 99% on 2 L of oxygen via nasal cannula. I's and O's show 240 out, Labs reviewed showed CO2 41 BUN 37 creatinine 1.49. Glucose 179, magnesium 1.9 Nephrology is following. They had her resume her oral Lasix and continue Diamox for another 24 hours. She is on IV iron. Pulmonology as indicated that she can be discharged. We're waiting on ECF placement of her. 04/19/2022: Patient feels improved today. She denies chest pains pressures are appropriate. HEENT no bowel movement several weeks. This is inconclusive condition is usually poor historian. Vital signs remain stable, she remains afebrile. She's 100% 2 L O2 via nasal cannula. Eyes show 500 mL out last shift Laboratory hemoglobin is 7.4 today. This been stable over the past week. CO2 is 42 which is down slightly from yesterday. Began creatinine are stable Nephrology consultation reviewed, they're recommending continue Diamox continue Lasix 40 labs daily. Continue IV iron. Pulmonology recommendations continue BiPAP or CPAP at night. No hypnotics or narcotics or avoid sedation. She can return to ECF tomorrow. Objective - Vital Signs Vital signs: Vital Signs Temp 98.2 F 04/19/22 09:05 Pulse 69 04/19/22 11:49 Resp 16 04/19/22 11:49 BP 114/57 04/19/22 11:49 Pulse Ox 100 04/19/22 11:49 FiO2 35 04/19/22 03:50 Intake & Output 04/18/22 04/19/22 04/19/22 18:59 06:59 18:59 Intake Total 360 118 Output Total 375 500 200 Balance -15 -500 -82 Weight 149 kg Intake: Oral 360 118 Output: Urine 375 500 200 Other: Voiding Method Diaper Diaper Diaper External Catheter External Catheter External Catheter - Exam GENERAL: alert and oriented 3, sitting up in bed , no acute distress. She appears much more awake today and is enjoying lunch. NECK: Supple, No JVD. CARDIOVASCULAR: S1, S2 regular,irregular. Systolic murmur RESPIRATION: Unlabored, Bilateral air entry, scattered rhonchi ,fine bibasilar crackles ABDOMEN: Soft, obese, nontender . No guarding. no masses palpable. Bowel sounds heard. LEGS:Chronic venous stasis with bilateral lower extremity edema, right lower extremity dressing clean dry and intact, no clubbing, no cyanosis.No calf tenderness. NERVOUS SYSTEM: Cranial N 2-12 grossly normal. No focal deficits. Skin: Warm and dry, no rash. - Labs CBC & Chem 7: 04/19/22 06:32 04/19/22 10:26 Labs: Abnormal Lab Results - Last 24 Hours (Table) 04/18/22 04/18/22 04/18/22 Range/Units 16:30 20:19 23:25 RBC (3.80-5.40) m/uL Hgb (11.4-16.0) gm/dL Hct (34.0-46.0) % MCHC (31.0-37.0) g/dL RDW (11.5-15.5) % Lymphocytes # (1.0-4.8) k/uL Chloride (98-107) mmol/L Carbon Dioxide (22-30) mmol/L BUN (7-17) mg/dL Creatinine (0.52-1.04) mg/dL Glucose (74-99) mg/dL POC Glucose (mg/dL) 363 H 275 H 207 H (70-110) mg/dL 04/19/22 04/19/22 04/19/22 Range/Units 06:16 06:32 06:32 RBC 2.73 L (3.80-5.40) m/uL Hgb 7.4 L (11.4-16.0) gm/dL Hct 25.8 L (34.0-46.0) % MCHC 28.6 L (31.0-37.0) g/dL RDW 16.6 H (11.5-15.5) % Lymphocytes # 0.9 L (1.0-4.8) k/uL Chloride 92 L (98-107) mmol/L Carbon Dioxide 44 H* (22-30) mmol/L BUN 37 H (7-17) mg/dL Creatinine 1.62 H (0.52-1.04) mg/dL Glucose 148 H (74-99) mg/dL POC Glucose (mg/dL) 168 H (70-110) mg/dL 04/19/22/ Range/Units 10:26 11:33 RBC (3.80-5.40) m/uL Hgb (11.4-16.0) gm/dL Hct (34.0-46.0) % MCHC (31.0-37.0) g/dL RDW (11.5-15.5) % Lymphocytes # (1.0-4.8) k/uL Chloride 93 L (98-107) mmol/L Carbon Dioxide 42 H* (22-30) mmol/L BUN 36 H (7-17) mg/dL Creatinine 1.63 H (0.52-1.04) mg/dL Glucose 147 H (74-99) mg/dL POC Glucose (mg/dL) 159 H (70-110) mg/dL Assessment and Plan Plan: Acute on chronic congestive heart failure, diastolic dysfunction, EF 50%, Recent COVID-19 pneumonia January 2022 with chronic fibrotic changes secondary to the Covid infection as per pulmonary: Chronic anemia, iron deficient Acute on chronic hypoxic, hypercapnic respiratory failure, secondary to all the above, wears 2.5 L NC O2 at home Moderate pulmonary hypertension Chronic Bilateral lower extremity cellulitis, MSSA on prior wound cultures of the last admission Chronic atrial fibrillation, newly diagnosed on prior visit, January 2022 CAD, history of CABG Hypertension hyperlipidemia Diabetes mellitus, hemoglobin A1c 6.6 Hypothyroidism History of bariatric surgery Morbid obesity, BMI 59.7 Plan: She'll remain on Diamox 500 mg twice a day, continue Elequis for her atrial fibrillation, Keflex for the cellulitis insulin detemir 50 units daily and insulin scale. She'll continue metoprolol for heart rate control. Continue Silvadene for her previous cellulitis. Continue put Silvadene to her lower extremities keep wrap, continue pantoprazole for GI prophylaxis, she'll continue on furosemide orally daily per nephrology. Repeat labs in a.m., reevaluate next 24 hours, plan placement on Wednesday with BiPAP
[2022-04-19 17:02] LABS: Glucose,Whole Blood 184 mg/dL (70-110)
[2022-04-19 19:53] LABS: Glucose,Whole Blood 244 mg/dL (70-110)
[2022-04-19] MEDS: ATORVASTATIN 40 MG TAB PO SCH (20:26)
[2022-04-19] MEDS: MIRTAZAPINE 15 MG TAB PO SCH (20:26)
[2022-04-19] MEDS: DOCUSATE 100 MG CAP PO SCH (20:28)
[2022-04-20 06:19] LABS: Glucose,Whole Blood 256 mg/dL (70-110)
[2022-04-20] MEDS: INSULIN ASPART (NovoLOG) 100 UNIT/ML VIAL SQ SCH ×7 (06:31→21:01)
[2022-04-20] MEDS: PANTOPRAZOLE 40 MG TABLET PO SCH (06:31)
[2022-04-20] MEDS: LEVOTHYROXINE 50 MCG TAB PO SCH (06:31)
[2022-04-20] MEDS: INSULIN DETEMIR (LEVEMIR) 100 UNIT/ML SYR SQ SCH (06:34)
[2022-04-20] MEDS: GABAPENTIN 300 MG CAP PO SCH ×2 (09:16→21:00)
[2022-04-20] MEDS: ISOSORBIDE MONONITRATE ER 30 MG TAB.ER.24H PO SCH (09:16)
[2022-04-20] MEDS: DOCUSATE 100 MG CAP PO SCH (09:16)
[2022-04-20] MEDS: FUROSEMIDE 40 MG TAB PO SCH (09:16)
[2022-04-20] MEDS: OXYBUTYNIN CHLORIDE 5 MG TAB PO SCH ×2 (09:16→18:14)
[2022-04-20] MEDS: METOPROLOL TARTRATE 50 MG TAB PO SCH ×3 (09:17→21:00)
[2022-04-20] MEDS: acetaZOLAMIDE 250 MG TAB PO SCH ×2 (09:17→21:00)
[2022-04-20] MEDS: POTASSIUM CHLORIDE ER 20 MEQ TAB.ER PO SCH (09:17)
[2022-04-20] MEDS: APIXABAN 5 MG TAB PO SCH ×2 (09:17→21:00)
[2022-04-20] MEDS: CEPHALEXIN 250 MG CAP PO SCH ×2 (09:17→18:14)
--- NOTE | 2022-04-20 11:02 | P.PN ---
Subjective Progress Note Date: 04/20/22 Pulmonary consultation dated 04/13/2022. 72-year-old female seen in the emergency room, on April 12. She presented to the emergency room, from the nursing facility with low saturations. She apparently told the ER personnel she had no complaints, and felt fine. She does have a history of hypoxemic and hypercapnic respiratory failure, as well as congestive heart failure. She does wear oxygen at home. Currently, the patient is on BiPAP, with settings of 14/5 and 35%. She was recently inpatient between April 06 and April 10. She's getting saline at KVO. She is also on IV Levaquin. She appears in no distress. She was sleeping when I first went into the room. White count 8.8, hemoglobin 7.5, hematocrit 24.8, and platelet count 229,000. D-dimer was 1.55. PT 12.8. Blood gases show a PaO2 of 37, pCO2 of 59, and a pH is 7.46. That was on room air. Sodium 140, potassium 4.1, chlorides 92, CO2 39, BUN 39, and creatinine 0.88. N-terminal proBNP was 7280. A nasal swab for coronavirus was negative. Influenza studies were also negative. A pro-calcitonin level was ordered by me. Chest x-ray was consistent in my opinion with CHF. CT angiogram showed no evidence of central pulmonary emboli. In addition, the computed tomography scan was consistent with CHF. Progress note dated 04/14/2022. The patient is seen today in room 363. Yesterday, she was on BiPAP. Currently, she is on 2 L. Her pro-calcitonin level is very low, so we will discontinue the Levaquin. She is getting saline, at 10 mL an hour. On BiPAP, her BiPAP settings are 14/5 and 35%. In fact, she is asking for the BiPAP as we speak. She is feeling better today than yesterday. CT angiogram was negative for pulmonary embolism. Sodium 141, potassium 4, chlorides 93, CO2 42, anion gap normal, BUN 41, and creatinine 1.20. Progress note dated 04/15/2022. The patient is again seen in room 363. Like yesterday, she was sleepy, and very lethargic. She's currently on oxygen at 2 L. She's not receiving any IV fluids. The BiPAP device is in the room and I suspect that she has used BiPAP on and off since yesterday. Laboratory data today includes a white count of 6.8, hemoglobin 7.6, hematocrit 25.3, and a platelet count of 239,000. Sodium 140, potassium 4.2, chlorides 92, CO2 42, BUN 42, and creatinine 1.45. Progress note dated 04/16/2022. 72-year-old female again seen in room 363. The patient is currently on 2 L of oxygen. She's getting saline at 10 mL an hour. He spent the entire night on BiPAP, with settings of 14/5, and 35%. She used to have a CPAP device, but apparently it does not work. Clinically, she is much more awake today. No new labs today she had other than a glucose of 203. She denies any shortness of breath, cough, wheezing, or phlegm production. She also denies any chest pain or chest discomfort. She denies any fever or chills. She denies any GI or symptoms. Progress note dated 04/17/2022. 72-year-old obese female seen in room 363. She is currently on 2 L of oxygen. She uses BiPAP at night team, with settings of 14/5 and 35%. The patient's getting saline at KVO. Clinically she is doing better. She does need to use either CPAP or BiPAP at nighttime. BiPAP is preferred. She is clinically feeling better. Sodium 141, potassium 4.1, chlorides 90, CO2 47, BUN 38, creatinine 1.64. Progress note dated 04/18/2022. 72-year-old obese white female, again seen in room 363. She's currently on 2 L of oxygen. At nighttime, the patient uses BiPAP, with settings of 14/5 and 35%. The patient is receiving saline at 10 mL an hour. Laboratory data today includes a sodium 138, potassium 4.4, chlorides 91, CO2 41, with a BUN of 37 and a creatinine of 1.49. Glucose 366. No recent chest x-ray to review. Progress note dated 04/19/2022. 72-year-old obese white female, seen again in room 363. She remains on 2 L of oxygen, and is also receiving saline at 10 mL an hour. At nighttime, she is on BiPAP, with settings of 14/5 and 35%. Clinically, the patient has improved. She is feeling better. She is much less short of breath. White count 7.7, hemoglobin 7.4, hematocrit 25.8, and platelet count 250,000. Sodium 140, potassium 4.5, chlorides 92, CO2 44, BUN 37, and creatinine 1.62. On today's evaluation of 04/20/2022, the patient is awake and alert and she is communicating and she is on 3 L of oxygen by nasal cannula. Serum the hospital, the patient is utilizing a BiPAP at a pressure of 14/5 cm of water. She is morbidly obese and she has severe obstructive sleep apnea and she has been maintained on APAP machine on outpatient basis with a full facemask. She was in the hospital back in January 2022 for a covid 19 infection from which she recovered. Since then, the patient has been in [facility]. She is morbidly obese. She has chronic diastolic heart failure, chronic atrial fibrillation, hypertension, hypothyroidism, chronic anxiety and depression. She does have diabetic peripheral neuropathy, chronic lower extremity edema and episodic cellulitis. She is doing well for now. She has no specific comp laints. She has also a component of chronic kidney disease. Her creatinine from today is still pending. Meanwhile, the patient has developed an acute kidney injury during this current admission and the creatinine is up to 1.6 and the findings on the case. She also has chronic metabolic alkalosis. The most recent blood gas that was done on 04/17/2022 showed compensated chronic hypercapnic respiratory failure with a pH of 7.35 and a pCO2 of 78 and pO2 of 112. No recent chest x-ray is available or done on this patient. The patient is about to leave to [facility] on the [facility] today. She is on Diamox 50 mg by mouth twice a day. She is also on long-term and to coagulation with liquids. Cardiac rhythm is atrial fibrillation. She is on Levemir insulin 50 units once a day along with a NovoLog 7 units with meals and a sliding scale coverage. She is on Lasix 40 mg by mouth daily. She takes Remeron at bedtime. She Objective - Vital Signs Vital signs: Vital Signs Temp 97.6 F 04/20/22 09:05 Pulse 75 04/20/22 09:05 Resp 16 04/20/22 09:05 BP 125/60 04/20/22 09:05 Pulse Ox 97 04/20/22 09:05 FiO2 35 04/20/22 08:29 Intake & Output 04/19/22 04/20/22 04/20/22 18:59 06:59 18:59 Intake Total 236 118 118 Output Total 200 700 Balance 36 118 -582 Weight 148 kg Intake: Oral 236 118 118 Output: Urine 200 700 Other: Voiding Method Diaper Diaper Diaper External Catheter External Catheter External Catheter - Exam No acute distress, awake and alert, currently on 2 L nasal cannula. No audible wheezing, or respiratory distress. No use of accessory muscles. HEENT examination is grossly unremarkable. Neck supple. Full range of motion. No adenopathy thyromegaly or neck vein distention. Cardiovascular examination reveals regular rhythm rate. S1-S2 normal. No S3 or S4. No discernible murmur noted. Heart sounds are distant. Heart rate 80 bpm. Lungs reveal diffuse bilateral rhonchi, and bilateral crackles. Breath sounds equal bilaterally, but diminished throughout. No wheezes. Saturations are in 98 % on 2 L. Abdomen soft bowel sounds are heard. No masses or tenderness. Extremities are intact. No cyanosis or clubbing. Mild to moderate edema is noted. Skin is without rash or lesion. Neurologic examination is brief but nonfocal. - Labs CBC & Chem 7: 04/19/22 06:32 04/19/22 10:26 Labs: Abnormal Lab Results - Last 24 Hours (Table) 04/19/22 04/19/22 04/19/22 Range/Units 10:26 11:33 16:58 Chloride 93 L (98-107) mmol/L Carbon Dioxide 42 H* (22-30) mmol/L BUN 36 H (7-17) mg/dL Creatinine 1.63 H (0.52-1.04) mg/dL Glucose 147 H (74-99) mg/dL POC Glucose (mg/dL) 159 H 184 H (70-110) mg/dL 04/19/22 04/20/22 Range/Units 19:51 06:18 Chloride (98-107) mmol/L Carbon Dioxide (22-30) mmol/L BUN (7-17) mg/dL Creatinine (0.52-1.04) mg/dL Glucose (74-99) mg/dL POC Glucose (mg/dL) 244 H 256 H (70-110) mg/dL Assessment and Plan Plan: Acute on chronic hypoxemic and hypercapnic respiratory failure, most likely related to fluid overload/CHF. Doubt pneumonia, as pro-calcitonin level was quite low. The patient's sister status is optimized and the patient is currently on oxygen at 3 L. Meanwhile, the patient has a compensated chronic hypoxic and hypercapnic respiratory failure. She was given Diamox and the acid base status needs to be monitored as the patient is receiving a combination of Diamox and Lasix. History of atrial fibrillation. The rate is controlled and the patient remains on anticoagulation withEliquis History of CAD, status post 2 vessel bypass grafting, 1996. History of diabetes mellitus. Hyperlipidemia. Hypertension. Sleep apnea syndrome. Hypothyroidism. History of diabetic retinopathy and neuropathy. History of gout. Stage III chronic kidney disease. Morbid obesity. Multiple other medical problems and comorbidities. Plan The patient can be discharged home [facility] she will need to use her on [facility]AP machine [facility] the [facility] Continue Diamox with close monitoring of the serum bicarb Continue Lasix Complete a course of Keflex Mental status is adequate and there is no signs of any CO2 narcosis Resume home medications including the Lantus insulin and the NovoLog Monitor renal function outpatient basis Agree on discharging this patient with close monitoring.
--- NOTE | 2022-04-20 11:39 | P.PN ---
Subjective Patient is seen in follow-up for acute kidney injury. On oral diuretics. Nonoliguric. Blood pressure stable. Oral intake fair. No vomiting or d iarrhea. Denies chest pain or shortness of breath. Maintained on Diamox for metabolic alkalosis. Lasix is currently at 40 mg by mouth daily Serum creatinine is staying around 1.6 mg/dL for the last 2 days Objective - Vital Signs Vital signs: Vital Signs Temp 97.6 F 04/20/22 09:05 Pulse 75 04/20/22 09:05 Resp 16 04/20/22 09:05 BP 125/60 04/20/22 09:05 Pulse Ox 97 04/20/22 09:05 FiO2 35 04/20/22 08:29 Intake & Output 04/19/22 04/20/22 04/20/22 18:59 06:59 18:59 Intake Total 236 118 118 Output Total 200 700 Balance 36 118 -582 Weight 148 kg Intake: Oral 236 118 118 Output: Urine 200 700 Other: Voiding Method Diaper Diaper Diaper External Catheter External Catheter External Catheter - Exam Patient is awake, comfortable, not in any acute distress Maintained on nasal cannula Examination of the heart S1 and S2 Examination lungs bilateral breath sounds are heard Abdomen is soft nontender Examination lower extremities shows chronic edema bilaterally - Labs CBC & Chem 7: 04/19/22 06:32 04/19/22 10:26 Labs: Abnormal Lab Results - Last 24 Hours (Table) 04/19/22 04/19/22 04/20/22 Range/Units 16:58 19:51 06:18 POC Glucose (mg/dL) 184 H 244 H 256 H (70-110) mg/dL Assessment and Plan Assessment: 1. Acute kidney injury mostly prerenal secondary to cardiorenal syndrome and also concern for contrast-induced acute kidney injury. Patient received IV contrast for CT on 04/12/2022. Renal function is fairly stable for the last couple of days. Baseline creatinine near 1. No hydronephrosis noted on kidney ultrasound. UA benign. 2. Metabolic alkalosis secondary to diuresis. on Diamox. 3. Diabetes mellitus. 4. Acute on chronic diastolic CHF with mild aortic stenosis, severe tricuspid regurgitation and pulmonary hypertension. 5. Volume overload. improved with diuresis. 6. Anemia. Iron deficiency noted. 7. Acute on chronic hypercapnic respiratory failure. Plan: Continue current dose of Lasix Check labs today Continue Diamox Repeat labs in a.m.
[2022-04-20 11:50] LABS: Glucose,Whole Blood 351 mg/dL (70-110)
--- NOTE | 2022-04-20 11:57 | P.DS ---
Providers Date of admission: 04/12/22 14:24 Expected date of discharge: 04/20/22 Attending physician: Maik Jama Consults: 04/12/22 14:22 Consult Physician Routine Consulting Provider: Gus Pascal Consult Reason/Comments: chf Do you want consulting provider notified?: Yes Consult Physician Routine Consulting Provider: Deisy Lewis Consult Reason/Comments: resp falure Do you want consulting provider notified?: Already Contacted 04/15/22 10:34 Consult Physician Routine Consulting Provider: Brando Lucas Consult Reason/Comments: renal failure/chf Do you want consulting provider notified?: Yes Primary care physician: Maik Jama Hospital Course: Acute on chronic congestive heart failure, diastolic dysfunction, EF 50%, doubt pneumonia, pro-calcitonin 0.1. Recent COVID-19 pneumonia January 2022 with chronic fibrotic changes secondary to the Covid infection as per pulmonary Chronic anemia, iron deficient Acute on chronic hypoxic, hypercapnic respiratory failure, secondary to all the above, wears 2.5 L NC O2 at home Moderate pulmonary hypertension Chronic Bilateral lower extremity cellulitis, MSSA on prior wound cultures of the last admission Chronic atrial fibrillation, newly diagnosed on prior visit, January 2022 CAD, history of CABG Hypertension hyperlipidemia Diabetes mellitus, hemoglobin A1c 6.6 Hypothyroidism History of bariatric surgery Morbid obesity, BMI 59.7 Hospital course:This is a 72-year-old female admitted from [facility] subacute rehab with acute on chronic hypoxic respiratory failure, multifactorial, wears 2.5 L nasal cannula O2 at home. Discharged last week to subacute rehab for acute on chronic CHF with increase in home dose of oral diuretics/Lasix as per cardiology. Recent COVID-19 pneumonia January 2022 with chronic fibrotic changes secondary to the Covid infection as per pulmonary's evaluation on prior admission.patient also received a couple units packed RBCs on last admission for acute on chronic anemia with negative Hemoccult,currently stable at 7.5. Maintaining O2 sats of 100% on 4 L nasal cannula, titrated down, currently maintaining O2 sats of 96% on 2 L nasal cannula (baseline). Denies chest pain, palpitations or shortness of breath. Denies cough. Denies lightheadedness dizziness or focal deficits. Consuming 75% of breakfast. Denies nausea, vomiting or diarrhea. No abdominal pain. Renal function stable. Electrolytes within normal limits. Right lower extremity cellulitis, wound cultures of last week reporting MSSA. EKG reported atrial fibrillation with mild tachycardia, low 100s, right bundle branch block, troponin 0.025, proBNP 7280. Anticoagulated on Eliquis. Chest x-ray reporting cardiomegaly, mild pulmonary vascular congestion. D-dimer 1.55. Chest CTA reported no PE with limited evaluation of segmental and subsegmental branches, peripheral groundglass pulmonary opacities with reactive mediastinal lymphadenopathy in a patient with recent Covid infection , cardiomegaly with pulmonary vascular congestion and trace bilateral pleural effusions, suspected underlying component of CHF .Coronavirus, influenza type A and type B not detected. Diuresing well on Lasix IV push with 24 hour I&O reflecting a negative fluid balance. Hyperglycemic. IV push diuretics initiated, continues on beta josh 04/14/2022 diuresing well on Lasix IV push 24-hour I&O reflecting a negative fluid balance, renal function worsening. Diuretics converted to oral. Maintained on Levaquin, pro-calcitonin 0.1. Afebrile. Telemetry controlled A. fib. Maintaining O2 sats in the high 90s on 2 L nasal cannula. 04/15/2022 BiPAP during the night and after lunch yesterday. Currently maintaining O2 sats in the high 90s on 2 L nasal cannula. Renal function worsening yesterday, transitioned to oral Lasix , creatinine higher today, 1.45. Afebrile, normal WBC. 04/16/2022 continues on fluid restrictions, diuretics adjusted to oral Lasix with Diamox ordered, bicarb yesterday 42 with worsening renal function. Labs pending. JEANETTE inhibitor decreased. Blood pressure stable. Denies chest pain, palpitations or shortness of breath. Blood sugars improving. 04/17/2022 creatinine 1.64, bicarb worsening, increased to 47. Lasix placed on hold, continues on Diamox. Requiring BiPAP at night and will require a subacute rehab. Maintaining O2 sats in the 90s on 2 L nasal cannula. Hyperglycemics, blood sugars improving. 04/18/2022: Patient remains on BiPAP at night. She is significantly fatigued today. She denies any chest pains pressures, shortness of breath. We going rehabilitation upon discharge. She remains afebrile. Heart regular rate and normal blood pressure. She is 99% on 2 L of oxygen via nasal cannula. I's and O's show 240 out, Labs reviewed showed CO2 41 BUN 37 creatinine 1.49. Glucose 179, magnesium 1.9 Nephrology is following. They had her resume her oral Lasix and continue Diamox for another 24 hours. She is on IV iron. Pulmonology as indicated that she can be discharged. We're waiting on ECF placement of her. 04/19/2022: Patient feels improved today. She denies chest pains pressures are appropriate. HEENT no bowel movement several weeks. This is inconclusive condition is usually poor historian. Vital signs remain stable, she remains afebrile. She's 100% 2 L O2 via nasal cannula. Eyes show 500 mL out last shift Laboratory hemoglobin is 7.4 today. This been stable over the past week. CO2 is 42 which is down slightly from yesterday. Began creatinine are stable Nephrology consultation reviewed, they're recommending continue Diamox continue Lasix 40 labs daily. Continue IV iron. Pulmonology recommendations continue BiPAP or CPAP at night. No hypnotics or narcotics or avoid sedation. She can return to ECF tomorrow. Significant clinical improvement. Patient will be discharged to [facility] subacute rehab today in a stable condition with guarded prognosis pending final DC recommendations and clearance per nephrology. Close monitoring of bicarb. Patient will require BiPAP qhs and prn. The impression and plan of care has been dictated as directed. : I performed a history and examination of this patient, discussed the same with the dictator. I agree with the dictator's note ,documented as a scribe. Any additional findings or plans will be noted. Patient Condition at Discharge: Stable Plan - Discharge Summary New Discharge Prescriptions: New Insulin Detemir (Levemir) [Levemir] 50 unit SQ DAILY@0700 each Docusate [Colace] 100 mg PO DAILY cap acetaZOLAMIDE [Diamox] 500 mg PO BID tab Furosemide [Lasix] 40 mg PO DAILY tab Pantoprazole [Protonix] 40 mg PO AC-BRKFST tab SILVER sulfADIAZINE CREAM [Silvadene Cream] 1 applic TOPICAL DAILY each Continue Atorvastatin [Lipitor] 40 mg PO HS@2100 Levothyroxine Sodium [Tirosint] 50 mcg PO DAILY@0600 Isosorbide Mononitrate [Isosorbide Mononitrate ER] 30 mg PO DAILY@0900 Potassium Chloride [Klor-Con 10 ER] 20 meq PO DAILY@0900 Oxybutynin Chloride 5 mg PO BID@0900,1700 Mirtazapine [Remeron] 15 mg PO HS@2100 INSULIN ASPART (NovoLOG) [NovoLOG (formulary)] 5 unit SQ TID@,,16 PRN PRN Reason: HOLD IF BS <120 Cephalexin [Keflex] 500 mg PO TID@, Metoprolol Tartrate [Lopressor] 50 mg PO TID@, INSULIN ASPART (NovoLOG) [NovoLOG (formulary)] See Protocol SQ QID@,,, Apixaban [Eliquis] 5 mg PO BID@899,2099 Changed Gabapentin [Neurontin] 300 mg PO BID@899,2099 #6 cap Discontinued Furosemide [Lasix] 40 mg PO BID@0900,1600 tab Discharge Medication List Atorvastatin [Lipitor] 40 mg PO HS@209908/10/16 [History] Isosorbide Mononitrate [Isosorbide Mononitrate ER] 30 mg PO DAILY@0900 08/10/16 [History] Levothyroxine Sodium [Tirosint] 50 mcg PO DAILY@0600 08/10/16 [History] Oxybutynin Chloride 5 mg PO BID@0900,1700 08/10/16 [History] Potassium Chloride [Klor-Con 10 ER] 20 meq PO DAILY@0900 08/10/16 [History] Apixaban [Eliquis] 5 mg PO BID@0900,2100 04/12/22 [History] Cephalexin [Keflex] 500 mg PO TID@,,04/12/22 [History] INSULIN ASPART (NovoLOG) [NovoLOG (formulary)] 5 unit SQ TID@,, PRN 04/12/22 [History] INSULIN ASPART (NovoLOG) [NovoLOG (formulary)] See Protocol SQ QID@,,,04/12/22 [History] Metoprolol Tartrate [Lopressor] 50 mg PO TID@,,04/12/22 [History] Mirtazapine [Remeron] 15 mg PO HS@2100 04/12/22 [History] Docusate [Colace] 100 mg PO DAILY cap 04/20/22 [Rx] Furosemide [Lasix] 40 mg PO DAILY tab 04/20/22 [Rx] Gabapentin [Neurontin] 300 mg PO BID@899,2099 #6 cap 04/20/22 [Rx] Insulin Detemir (Levemir) [Levemir] 50 unit SQ DAILY@0700 each 04/20/22 [Rx] Pantoprazole [Protonix] 40 mg PO AC-BRKFST tab 04/20/22 [Rx] SILVER sulfADIAZINE CREAM [Silvadene Cream] 1 applic TOPICAL DAILY each 04/20/22 [Rx] acetaZOLAMIDE [Diamox] 500 mg PO BID tab 04/20/22 [Rx] Follow up Appointment(s)/Referral(s): Bryant Weller MD [STAFF PHYSICIAN] - 1 Week Maik Jama MD [Primary Care Provider] - 3 Days Activity/Diet/Wound Care/Special Instructions: Bipap 14/5 at [facility] Close monitoring of Bicarb: cbc,bmp in 2 days Discharge Disposition: TRANSFER TO SNF/ECF
[2022-04-20 12:38] LABS: Calcium 8.9 mg/dL (8.4-10.2); Potassium 4.4 mmol/L (3.5-5.1)
[2022-04-20 16:38] LABS: Glucose,Whole Blood 223 mg/dL (70-110)
[2022-04-20 20:05] LABS: Glucose,Whole Blood 269 mg/dL (70-110)
[2022-04-20] MEDS: MIRTAZAPINE 15 MG TAB PO SCH (21:00)
[2022-04-20] MEDS: ATORVASTATIN 40 MG TAB PO SCH (21:00)
[2022-04-21] MEDS: CEPHALEXIN 250 MG CAP PO SCH ×3 (00:25→17:34)
[2022-04-21 06:05] LABS: Glucose,Whole Blood 201 mg/dL (70-110)
[2022-04-21] MEDS: PANTOPRAZOLE 40 MG TABLET PO SCH (06:35)
[2022-04-21] MEDS: LEVOTHYROXINE 50 MCG TAB PO SCH (06:35)
[2022-04-21] MEDS: METOPROLOL TARTRATE 50 MG TAB PO SCH ×3 (08:57→20:30)
[2022-04-21] MEDS: acetaZOLAMIDE 250 MG TAB PO SCH ×2 (08:57→20:30)
[2022-04-21] MEDS: APIXABAN 5 MG TAB PO SCH ×2 (08:59→20:30)
[2022-04-21] MEDS: FUROSEMIDE 40 MG TAB PO SCH (08:59)
[2022-04-21] MEDS: POTASSIUM CHLORIDE ER 20 MEQ TAB.ER PO SCH (08:59)
[2022-04-21] MEDS: DOCUSATE 100 MG CAP PO SCH (08:59)
[2022-04-21] MEDS: GABAPENTIN 300 MG CAP PO SCH ×2 (09:00→20:30)
[2022-04-21] MEDS: ISOSORBIDE MONONITRATE ER 30 MG TAB.ER.24H PO SCH (09:00)
[2022-04-21] MEDS: OXYBUTYNIN CHLORIDE 5 MG TAB PO SCH ×2 (09:00→17:34)
[2022-04-21] MEDS: INSULIN DETEMIR (LEVEMIR) 100 UNIT/ML SYR SQ SCH (09:01)
[2022-04-21] MEDS: INSULIN ASPART (NovoLOG) 100 UNIT/ML VIAL SQ SCH ×7 (09:02→20:31)
--- NOTE | 2022-04-21 09:35 | P.PN ---
Subjective Progress Note Date: 04/21/22 Pulmonary consultation dated 04/13/2022. 72-year-old female seen in the emergency room, on April 12. She presented to the emergency room, from the nursing facility with low saturations. She apparently told the ER personnel she had no complaints, and felt fine. She does have a history of hypoxemic and hypercapnic respiratory failure, as well as congestive heart failure. She does wear oxygen at home. Currently, the patient is on BiPAP, with settings of 14/5 and 35%. She was recently inpatient between April 06 and April 10. She's getting saline at KVO. She is also on IV Levaquin. She appears in no distress. She was sleeping when I first went into the room. White count 8.8, hemoglobin 7.5, hematocrit 24.8, and platelet count 229,000. D-dimer was 1.55. PT 12.8. Blood gases show a PaO2 of 37, pCO2 of 59, and a pH is 7.46. That was on room air. Sodium 140, potassium 4.1, chlorides 92, CO2 39, BUN 39, and creatinine 0.88. N-terminal proBNP was 7280. A nasal swab for coronavirus was negative. Influenza studies were also negative. A pro-calcitonin level was ordered by me. Chest x-ray was consistent in my opinion with CHF. CT angiogram showed no evidence of central pulmonary emboli. In addition, the computed tomography scan was consistent with CHF. Progress note dated 04/14/2022. The patient is seen today in room 363. Yesterday, she was on BiPAP. Currently, she is on 2 L. Her pro-calcitonin level is very low, so we will discontinue the Levaquin. She is getting saline, at 10 mL an hour. On BiPAP, her BiPAP settings are 14/5 and 35%. In fact, she is asking for the BiPAP as we speak. She is feeling better today than yesterday. CT angiogram was negative for pulmonary embolism. Sodium 141, potassium 4, chlorides 93, CO2 42, anion gap normal, BUN 41, and creatinine 1.20. Progress note dated 04/15/2022. The patient is again seen in room 363. Like yesterday, she was sleepy, and very lethargic. She's currently on oxygen at 2 L. She's not receiving any IV fluids. The BiPAP device is in the room and I suspect that she has used BiPAP on and off since yesterday. Laboratory data today includes a white count of 6.8, hemoglobin 7.6, hematocrit 25.3, and a platelet count of 239,000. Sodium 140, potassium 4.2, chlorides 92, CO2 42, BUN 42, and creatinine 1.45. Progress note dated 04/16/2022. 72-year-old female again seen in room 363. The patient is currently on 2 L of oxygen. She's getting saline at 10 mL an hour. He spent the entire night on BiPAP, with settings of 14/5, and 35%. She used to have a CPAP device, but apparently it does not work. Clinically, she is much more awake today. No new labs today she had other than a glucose of 203. She denies any shortness of breath, cough, wheezing, or phlegm production. She also denies any chest pain or chest discomfort. She denies any fever or chills. She denies any GI or symptoms. Progress note dated 04/17/2022. 72-year-old obese female seen in room 363. She is currently on 2 L of oxygen. She uses BiPAP at night team, with settings of 14/5 and 35%. The patient's getting saline at KVO. Clinically she is doing better. She does need to use either CPAP or BiPAP at nighttime. BiPAP is preferred. She is clinically feeling better. Sodium 141, potassium 4.1, chlorides 90, CO2 47, BUN 38, creatinine 1.64. Progress note dated 04/18/2022. 72-year-old obese white female, again seen in room 363. She's currently on 2 L of oxygen. At nighttime, the patient uses BiPAP, with settings of 14/5 and 35%. The patient is receiving saline at 10 mL an hour. Laboratory data today includes a sodium 138, potassium 4.4, chlorides 91, CO2 41, with a BUN of 37 and a creatinine of 1.49. Glucose 366. No recent chest x-ray to review. Progress note dated 04/19/2022. 72-year-old obese white female, seen again in room 363. She remains on 2 L of oxygen, and is also receiving saline at 10 mL an hour. At nighttime, she is on BiPAP, with settings of 14/5 and 35%. Clinically, the patient has improved. She is feeling better. She is much less short of breath. White count 7.7, hemoglobin 7.4, hematocrit 25.8, and platelet count 250,000. Sodium 140, potassium 4.5, chlorides 92, CO2 44, BUN 37, and creatinine 1.62. On today's evaluation of 04/20/2022, the patient is awake and alert and she is communicating and she is on 3 L of oxygen by nasal cannula. Serum the hospital, the patient is utilizing a BiPAP at a pressure of 14/5 cm of water. She is morbidly obese and she has severe obstructive sleep apnea and she has been maintained on APAP machine on outpatient basis with a full facemask. She was in the hospital back in January 2022 for a covid 19 infection from which she recovered. Since then, the patient has been in [facility]. She is morbidly obese. She has chronic diastolic heart failure, chronic atrial fibrillation, hypertension, hypothyroidism, chronic anxiety and depression. She does have diabetic peripheral neuropathy, chronic lower extremity edema and episodic cellulitis. She is doing well for now. She has no specific comp laints. She has also a component of chronic kidney disease. Her creatinine from today is still pending. Meanwhile, the patient has developed an acute kidney injury during this current admission and the creatinine is up to 1.6 and the findings on the case. She also has chronic metabolic alkalosis. The most recent blood gas that was done on 04/17/2022 showed compensated chronic hypercapnic respiratory failure with a pH of 7.35 and a pCO2 of 78 and pO2 of 112. No recent chest x-ray is available or done on this patient. The patient is about to leave to [facility] on the [place] today. She is on Diamox 500 mg by mouth twice a day. She is also on long-term and to coagulation with liquids. Cardiac rhythm is atrial fibrillation. She is on Levemir insulin 50 units once a day along with a NovoLog 7 units with meals and a sliding scale coverage. She is on Lasix 40 mg by mouth daily. She takes Remeron at bedtime. She 04/21/2022, the patient is awake and alert and this morning the patient on a BiPAP at a pressure of 14/5 cm of water, 35%. She is urinating a tidal volume of above 400 and her respiratory rate is in a low 20s she seems to be quite comfortable. I was told by the nursing staff that the patient was somewhat confused this morning. She did not know her birthdate and she did not know her location. She was on oxygen at 2 L. I was also told that overnight, the patient did not use her BiPAP. Based on that, she was placed back on a BiPAP and currently she is asynchronous and she is much more alert and following commands. She remains on Lasix 40 mg by mouth daily. She is also taking Diamox 500 mg by mouth twice a day. No blood work from today is available yet. She remains on Levemir insulin 50 units daily and NovoLog with meals at 7 units and a sliding scale coverage. The plan is to [facility] out [facility] today [facility] She has no specific complaints. No chest pain. No altered mentation. She is completing a course of Keflex to 500 mg by mouth 3 times a day. Objective - Vital Signs Vital signs: Vital Signs Temp 98.3 F 04/21/22 08:00 Pulse 75 04/21/22 08:00 Resp 16 04/21/22 08:00 BP 124/69 04/21/22 08:00 Pulse Ox 97 04/21/22 08:00 FiO2 35 04/20/22 08:29 Intake & Output 04/20/22 04/21/22 04/21/22 18:59 06:59 18:59 Intake Total 236 Output Total 1100 Balance -864 Weight 147.5 kg Intake: Oral 236 Output: Urine 1100 Other: Voiding Method Diaper Diaper External Catheter External Catheter # Bowel Movements 1 - Exam No acute distress, awake and alert, a, the patient is using the BiPAP overnight at a pressure of 14/5 cm of water, FiO2 of 35%. No audible wheezing, or respiratory distress. No use of accessory muscles. HEENT examination is grossly unremarkable. Neck supple. Full range of motion. No adenopathy thyromegaly or neck vein distention. Cardiovascular examination reveals regular rhythm rate. S1-S2 normal. No S3 or S4. No discernible murmur noted. Heart sounds are distant. Heart rate 80 bpm. Lungs reveal diffuse bilateral rhonchi, and bilateral crackles. Breath sounds equal bilaterally, but diminished throughout. No wheezes. Saturations are in 98 % on 2 L. Abdomen soft bowel sounds are heard. No masses or tenderness. Extremities are intact. No cyanosis or clubbing. Mild to moderate edema is noted. Skin is without rash or lesion. Neurologic examination is brief but nonfocal. - Labs CBC & Chem 7: 04/19/22 06:32 04/20/22 06:05 Labs: Abnormal Lab Results - Last 24 Hours (Table) 04/20/22 04/20/22 04/20/22 Range/Units 06:05 11:46 16:36 Chloride 92 L (98-107) mmol/L Carbon Dioxide 36 H (22-30) mmol/L BUN 38 H (7-17) mg/dL Creatinine 1.51 H (0.52-1.04) mg/dL Glucose 204 H (74-99) mg/dL POC Glucose (mg/dL) 351 H 223 H (70-110) mg/dL 04/20/22 04/21/22 Range/Units 20:02 06:03 Chloride (98-107) mmol/L Carbon Dioxide (22-30) mmol/L BUN (7-17) mg/dL Creatinine (0.52-1.04) mg/dL Glucose (74-99) mg/dL POC Glucose (mg/dL) 269 H 201 H (70-110) mg/dL Assessment and Plan Plan: Acute on chronic hypoxemic and hypercapnic respiratory failure, most likely related to fluid overload/CHF. Doubt pneumonia, as pro-calcitonin level was quite low. The patient's fluid status is optimized and the patient refused to use the BiPAP overnight. This morning, she is more confused and I was told that the patient was having some signs of CO2 narcosis. Based on that, she was placed back on the BiPAP and she seems to be more alert. I'm going to repeat electrolytes and obtain a blood gas while being on a BiPAP. She is on Lasix. She is on Diamox. Electrodes will be needed to evaluate her acid base status. History of atrial fibrillation. The rate is controlled and the patient remains on anticoagulation with Eliquis History of CAD, status post 2 vessel bypass grafting, 1996. History of diabetes mellitus. Hyperlipidemia. Hypertension. Sleep apnea syndrome. Hypothyroidism. History of diabetic retinopathy and neuropathy He. History of gout. Stage III chronic kidney disease. Morbid obesity. Multiple other medical problems and comorbidities. Plan Keep the patient on the BiPAP Obtain a set of electrolytes Obtain blood gases on the BiPAP Continue diamox Continue Lasix Complete a course of Keflex to 50 mg by mouth 3 times a day Mental status is altered and there is concern for CO2 narcosis. This patient is to wear her BiPAP every night without any interruption. Resume home medications including the Lantus insulin and the NovoLog Monitor renal function outpatient basis Hold discharge for today
[2022-04-21 10:53] LABS: ABG Base Excess 13.4 mmol/L; ABG HCO3 39 mmol/L (21-25); ABG Oxygen Saturation 96.1 % (94-97); ABG PCO2 68 mmHg (35-45); ABG PH 7.37 (7.35-7.45); ABG PO2 76 mmHg (83-108); ABG TCO2 41 mmol/L (19-24); Allen Test Performed? Yes
[2022-04-21 11:02] LABS: ABG Hematocrit 20 % (34.0-46.0)
[2022-04-21 11:03] LABS: Calcium 8.2 mg/dL (8.4-10.2); Potassium 4.3 mmol/L (3.5-5.1)
--- NOTE | 2022-04-21 11:56 | P.PN ---
Subjective Patient is seen in follow-up for acute kidney injury. On oral diuretics. Nonoliguric. Blood pressure stable. Oral intake fair. No vomiting or d iarrhea. Denies chest pain or shortness of breath. Maintained on Diamox for metabolic alkalosis. Lasix is currently at 40 mg by mouth daily Serum creatinine is down to 1.4 today Currently on BiPAP Objective - Vital Signs Vital signs: Vital Signs Temp 98.3 F 04/21/22 08:00 Pulse 60 04/21/22 11:49 Resp 21 04/21/22 11:49 BP 115/65 04/21/22 11:49 Pulse Ox 97 04/21/22 11:49 FiO2 35 04/20/22 08:29 Intake & Output 04/20/22 04/21/22 04/21/22 18:59 06:59 18:59 Intake Total 236 Output Total 1100 Balance -864 Weight 147.5 kg Intake: Oral 236 Output: Urine 1100 Other: Voiding Method Diaper Diaper Diaper External Catheter External Catheter External Catheter # Bowel Movements 1 - Exam Patient is awake, comfortable, not in any acute distress Maintained on BiPAP Examination of the heart S1 and S2 Examination lungs bilateral breath sounds are heard Abdomen is soft nontender Examination lower extremities shows chronic edema bilaterally - Labs CBC & Chem 7: 04/19/22 06:32 04/21/22 10:26 Labs: Abnormal Lab Results - Last 24 Hours (Table) 04/20/22 04/20/22 04/20/22 Range/Units 06:05 16:36 20:02 ABG pCO2 (35-45) mmHg ABG pO2 (83-108) mmHg ABG HCO3 (21-25) mmol/L ABG Total CO2 (19-24) mmol/L ABG Hematocrit (34.0-46.0) % Hemoglobin (11.4-16.0) gm/dL Chloride 92 L (98-107) mmol/L Carbon Dioxide 36 H (22-30) mmol/L BUN 38 H (7-17) mg/dL Creatinine 1.51 H (0.52-1.04) mg/dL Glucose 204 H (74-99) mg/dL POC Glucose (mg/dL) 223 H 269 H (70-110) mg/dL Calcium (8.4-10.2) mg/dL 04/21/22 04/21/22 04/21/22 Range/Units 06:03 10:26 10:49 ABG pCO2 68 H (35-45) mmHg ABG pO2 76 L (83-108) mmHg ABG HCO3 39 H (21-25) mmol/L ABG Total CO2 41 H (19-24) mmol/L ABG Hematocrit 20 L* (34.0-46.0) % Hemoglobin 6.5 L* (11.4-16.0) gm/dL Chloride 93 L (98-107) mmol/L Carbon Dioxide 40 H (22-30) mmol/L BUN 39 H (7-17) mg/dL Creatinine 1.45 H (0.52-1.04) mg/dL Glucose 200 H (74-99) mg/dL POC Glucose (mg/dL) 201 H (70-110) mg/dL Calcium 8.2 L (8.4-10.2) mg/dL Assessment and Plan Assessment: 1. Acute kidney injury mostly prerenal secondary to cardiorenal syndrome and also concern for contrast-induced acute kidney injury. Patient received IV contrast for CT on 04/12/2022. Renal function is improving. Baseline creatinine near 1. No hydronephrosis noted on kidney ultrasound. UA benign. 2. Metabolic alkalosis secondary to diuresis. on Diamox. 3. Diabetes mellitus. 4. Acute on chronic diastolic CHF with mild aortic stenosis, severe tricuspid regurgitation and pulmonary hypertension. 5. Volume overload. improved with diuresis. 6. Anemia. Iron deficiency noted. Status post IV iron 7. Acute on chronic hypercapnic respiratory failure. Plan: Continue current dose of Lasix Continue Diamox Repeat labs in a.m.
[2022-04-21 12:28] LABS: Glucose,Whole Blood 241 mg/dL (70-110)
[2022-04-21 17:12] LABS: Glucose,Whole Blood 162 mg/dL (70-110)
--- NOTE | 2022-04-21 17:40 | P.PN ---
Subjective Progress Note Date: 04/21/22 H&P Date: 04/14/22 This is a 72-year-old female admitted from [facility] subacute rehab with acute on chronic hypoxic respiratory failure, multifactorial, wears 2.5 L nasal cannula O2 at home. Discharged last week to subacute rehab for acute on chronic CHF with increase in home dose of oral diuretics/Lasix as per cardiology. Recent COVID-19 pneumonia January 2022 with chronic fibrotic changes secondary to the Covid infection as per pulmonary's evaluation on prior admission.patient also received a couple units packed RBCs on last admission for acute on chronic anemia with negative Hemoccult,currently stable at 7.5. Maintaining O2 sats of 100% on 4 L nasal cannula, titrated down, currently maintaining O2 sats of 96% on 2 L nasal cannula (baseline). Denies chest pain, palpitations or shortness of breath. Denies cough. Denies lightheadedness dizziness or focal deficits. Consuming 75% of breakfast. Denies nausea, vomiting or diarrhea. No abdominal pain. Renal function stable. Electrolytes within normal limits. Right lower extremity cellulitis, wound cultures of last week reporting MSSA. EKG reported atrial fibrillation with mild tachycardia, low 100s, right bundle branch block, troponin 0.025, proBNP 7280. Anticoagulated on Eliquis. Chest x-ray reporting cardiomegaly, mild pulmonary vascular congestion. D-dimer 1.55. Chest CTA reported no PE with limited evaluation of segmental and subsegmental branches, peripheral groundglass pulmonary opacities with reactive mediastinal lymphadenopathy in a patient with recent Covid infection , cardiomegaly with pulmonary vascular congestion and trace bilateral pleural effusions, suspected underlying component of CHF .Coronavirus, influenza type A and type B not detected. Diuresing well on Lasix IV push with 24 hour I&O reflecting a negative fluid balance. Hyperglycemic. IV push diuretics initiated, continues on beta josh 04/14/2022 diuresing well on Lasix IV push 24-hour I&O reflecting a negative f luid balance, renal function worsening. Diuretics converted to oral. Maintained on Levaquin, pro-calcitonin 0.1. Afebrile. Telemetry controlled A. fib. Maintaining O2 sats in the high 90s on 2 L nasal cannula. 04/15/2022 BiPAP during the night and after lunch yesterday. Currently maintaining O2 sats in the high 90s on 2 L nasal cannula. Renal function worsening yesterday, transitioned to oral Lasix , creatinine higher today, 1.45. Afebrile, normal WBC. 04/16/2022 continues on fluid restrictions, diuretics adjusted to oral Lasix with Diamox ordered, bicarb yesterday 42 with worsening renal function. Labs pending. JEANETTE inhibitor decreased. Blood pressure stable. Denies chest pain, palpitations or shortness of breath. Blood sugars improving. 04/17/2022 creatinine 1.64, bicarb worsening, increased to 47. Lasix placed on hold, continues on Diamox. Requiring BiPAP at night and will require a subacute rehab. Maintaining O2 sats in the 90s on 2 L nasal cannula. Hyperglycemics, blood sugars improving. 04/21/2022 patient initially was scheduled for discharge to subacute rehab with authorization pending yesterday. Apparently during the night patient developed some confusion, refusing to wear BiPAP. Patient was left on nasal cannula for the majority of the night. This morning significant confusion, alert and oriented 1, ABGs, stat BMP pending. Placed back on BiPAP and currently alert and oriented 3. Objective - Vital Signs Vital signs: Vital Signs Temp 97.8 F 04/21/22 16:00 Pulse 72 04/21/22 16:00 Resp 20 04/21/22 16:00 BP 131/65 04/21/22 16:00 Pulse Ox 99 04/21/22 16:00 FiO2 35 04/21/22 16:06 Intake & Output 04/20/22 04/21/22 04/21/22 18:59 06:59 18:59 Intake Total 236 358 Output Total 1100 500 Balance -864 -142 Weight 147.5 kg Intake: Oral 236 358 Output: Urine 1100 500 Other: Voiding Method Diaper Diaper Diaper External Catheter External Catheter External Catheter # Bowel Movements 1 - Exam PHYSICAL EXAM: VITAL SIGNS: [As above] GENERAL: alert and oriented 3, sitting up in bed , no acute distress, wearing BiPAP HEENT: Conjunctivae normal. eyes normal. Oral mucosa moist NECK: Supple, No JVD. CARDIOVASCULAR: S1, S2 regular,irregular. Systolic murmur RESPIRATION: Bilateral air entry, scattered rhonchi ,fine bibasilar crackles ABDOMEN: Soft, obese, nontender . No guarding. no masses palpable. Bowel sounds heard. LEGS:Chronic venous stasis with bilateral lower extremity edema, right lower extremity dressing clean dry and intact, no clubbing, no cyanosis.No calf tenderness. NERVOUS SYSTEM: Cranial N 2-12 grossly normal. No focal deficits. Skin: Warm and dry, no rash. - Labs CBC & Chem 7: 04/19/22 06:32 04/21/22 10:26 Labs: Abnormal Lab Results - Last 24 Hours (Table) 04/20/22 04/21/22 04/21/22 Range/Units 20:02 06:03 10:26 ABG pCO2 (35-45) mmHg ABG pO2 (83-108) mmHg ABG HCO3 (21-25) mmol/L ABG Total CO2 (19-24) mmol/L ABG Hematocrit (34.0-46.0) % Hemoglobin (11.4-16.0) gm/dL Chloride 93 L (98-107) mmol/L Carbon Dioxide 40 H (22-30) mmol/L BUN 39 H (7-17) mg/dL Creatinine 1.45 H (0.52-1.04) mg/dL Glucose 200 H (74-99) mg/dL POC Glucose (mg/dL) 269 H 201 H (70-110) mg/dL Calcium 8.2 L (8.4-10.2) mg/dL 04/21/22 04/21/22 04/21/22 Range/Units 10:49 11:48 16:49 ABG pCO2 68 H (35-45) mmHg ABG pO2 76 L (83-108) mmHg ABG HCO3 39 H (21-25) mmol/L ABG Total CO2 41 H (19-24) mmol/L ABG Hematocrit 20 L* (34.0-46.0) % Hemoglobin 6.5 L* (11.4-16.0) gm/dL Chloride (98-107) mmol/L Carbon Dioxide (22-30) mmol/L BUN (7-17) mg/dL Creatinine (0.52-1.04) mg/dL Glucose (74-99) mg/dL POC Glucose (mg/dL) 241 H 162 H (70-110) mg/dL Calcium (8.4-10.2) mg/dL Assessment and Plan Assessment: Acute on chronic congestive heart failure, diastolic dysfunction, EF 50%, doubt pneumonia, pro-calcitonin 0.1. Recent COVID-19 pneumonia January 2022 with chronic fibrotic changes secondary to the Covid infection as per pulmonary Chronic anemia, iron deficient Acute on chronic hypoxic, hypercapnic respiratory failure, secondary to all the above, wears 2.5 L NC O2 at home. Possible CO2 narcosis. Moderate pulmonary hypertension Chronic Bilateral lower extremity cellulitis, MSSA on prior wound cultures of the last admission Chronic atrial fibrillation, newly diagnosed on prior visit, January 2022 CAD, history of CABG Hypertension hyperlipidemia Diabetes mellitus, hemoglobin A1c 6.6 Hypothyroidism History of bariatric surgery Morbid obesity, BMI 59.7 Plan: Continue on current medication regime ,monitoring and symptomatic treatment. Discharge placed on hold. Bicarb- ABGs/labs pending ; presented earlier with possible CO2 narcosis .Maintained on Diamox,Lasix on hold. Close monitoring of renal function, bicarb with repeat labs ordered for a.m. discharge planning in progress potentially for tomorrow pending labs, final DC recomm endations and clearance per nephrology and pulmonary. The impression and plan of care has been dictated as directed. : I performed a history and examination of this patient, discussed the same with the dictator. I agree with the dictator's note ,documented as a scribe. Any additional findings or plans will be noted.
[2022-04-21 19:36] LABS: Glucose,Whole Blood 193 mg/dL (70-110)
[2022-04-21] MEDS: MIRTAZAPINE 15 MG TAB PO SCH (20:30)
[2022-04-21] MEDS: ATORVASTATIN 40 MG TAB PO SCH (20:30)
[2022-04-22] MEDS: CEPHALEXIN 250 MG CAP PO SCH ×2 (00:33→09:35)
[2022-04-22 06:18] LABS: Glucose,Whole Blood 167 mg/dL (70-110)
[2022-04-22] MEDS: LEVOTHYROXINE 50 MCG TAB PO SCH (06:45)
[2022-04-22 07:58] VITALS: RESP 18
[2022-04-22 09:13] LABS: Anisocytosis Slight; Basophils % (A) 0 %; Eosinophils # (A) 0.2 k/uL (0-0.7); Eosinophils % (A) 3 %; HCT 23.5 % (34.0-46.0); Hypochromasia Marked; Lymphocytes # (A) 0.9 k/uL (1.0-4.8); Lymphocytes % (A) 11 %; MCHC 29.6 g/dL (31.0-37.0); MCV 94.6 fL (80.0-100.0); Mean Platelet Volume 8.6; Monocytes # (A) 0.3 k/uL (0-1.0); Monocytes % (A) 4 %; Neutrophils # (A) 7.2 k/uL (1.3-7.7); Neutrophils % (A) 81 %; Platelet Count 254 k/uL (150-450); RBC 2.49 m/uL (3.80-5.40); RDW 17.5 % (11.5-15.5); WBC 8.8 k/uL (3.8-10.6)
[2022-04-22] MEDS: INSULIN ASPART (NovoLOG) 100 UNIT/ML VIAL SQ SCH ×4 (09:34→13:05)
[2022-04-22] MEDS: INSULIN DETEMIR (LEVEMIR) 100 UNIT/ML SYR SQ SCH (09:34)
[2022-04-22] MEDS: acetaZOLAMIDE 250 MG TAB PO SCH (09:35)
[2022-04-22] MEDS: DOCUSATE 100 MG CAP PO SCH (09:35)
[2022-04-22] MEDS: POTASSIUM CHLORIDE ER 20 MEQ TAB.ER PO SCH (09:35)
[2022-04-22] MEDS: PANTOPRAZOLE 40 MG TABLET PO SCH (09:35)
[2022-04-22] MEDS: FUROSEMIDE 40 MG TAB PO SCH (09:35)
[2022-04-22] MEDS: METOPROLOL TARTRATE 50 MG TAB PO SCH ×2 (09:35→13:02)
[2022-04-22] MEDS: GABAPENTIN 300 MG CAP PO SCH (09:35)
[2022-04-22] MEDS: APIXABAN 5 MG TAB PO SCH (09:35)
[2022-04-22] MEDS: OXYBUTYNIN CHLORIDE 5 MG TAB PO SCH (09:35)
[2022-04-22] MEDS: ISOSORBIDE MONONITRATE ER 30 MG TAB.ER.24H PO SCH (09:35)
[2022-04-22 09:43] LABS: Calcium 8.8 mg/dL (8.4-10.2); Potassium 4.2 mmol/L (3.5-5.1)
--- NOTE | 2022-04-22 11:23 | XR ---
EXAMINATION TYPE: XR chest 1V DATE OF EXAM: 04/22/2022 HISTORY: Shortness of breath. COMPARISON: 04/12/2022 TECHNIQUE: Single view of the chest is submitted. FINDINGS: There is pulmonary venous congestion with scattered interstitial and alveolar edema. Cardiomegaly aga in noted. Overall the appearance is unchanged from prior study. Hilar and mediastinal structures are within normal limits. Degenerative changes are seen of the dorsal spine. IMPRESSION: 1. Stable congestive failure.
[2022-04-22 11:48] VITALS: BP 135/52; PULSE 83; TEMP 98.1
--- NOTE | 2022-04-22 11:52 | CDI ---
Documentation Clarification Form Date: 04/22/2022 11:38:10 AM From: Bridget Cordova CCS, CCDS Admit Date: 04/12/2022 02:24:00 PM Patient Name: Faith Tapia Visit Number: [id number] Discharge Date: ATTENTION: The Clinical Documentation Specialists (CDI) and [facility] Coding Staff appreciate your assistance in clarifying documentation. Please respond to the clarification below the line at the bottom and electronically sign. The CDI & [facility] Coding staff will review the response and follow-up if needed. Please note: Queries are made part of the Legal Health Record. If you have any questions, please contact the author of this message via ITS. Dr. Maik Jama: The following regarding the patient's mental status is documented in the 04/21 Attending Physician Progress Note: 04/21/2022 patient initially was scheduled for discharge to subacute rehab with authorization pending yesterday. Apparently during the night patient developed some confusion, refusing to wear BiPAP. Patient was left on nasal cannula for the majority of the night. This morning significant confusion, alert and oriented 1, ABGs, stat BMP pending. Placed back on BiPAP and currently alert and oriented 3. Additional clarification of the patient's documented confusion is requested. History/Risk Factors per the 04/13 H/P: Chronic hypoxic respiratory failure on 2.5L home O2, COVID 19 Pneumonia in January 2022 with chronic fibrotic changes secondary to COVID infection, Atrial Fibrillation, CAD, [place] status post CABG, DM, Bilateral extremity neuropathy, Hyperlipidemia, Hypertension, Osteoarthritis, FLORES, CKD Stage III, Iron Deficiency Anemia, Bilateral Macular Degeneration, Gout, Chronic back pain, Depression. Clinical Indicators: Presented to the ED on 04/12 via EMS from a SNF with concern for hypoxia. Has history of COPD & CHF. Admit with CHF and Respiratory Failure 04/21 VS: T 97.9, P 74, R 20 (sob), BP 126/65, PO 3Lnc - 35% BiPAP, BMI: 59.1 04/21 LAB: Chloride 93, CO2 40, BUN 39, Creatinine 1.45, Glucose 200, Calcium 8.2 04/21 ABGs: pCO2 68, pO2 76, pO2 39, HCO3 41, ABG Hematocrit 20, Hemoglobin 6.5 04/22 CXR: Stable congestive failure. Treatment 04/21: BiPAP, Discharge held. On Diamox, Lasix on hold. Monitoring renal function, Bicarb w/repeat labs ordered for am, discharge planning in progress, potentially tomorrow (04/22) pending labs and pending clearance by Nephrology and Pulmonary. Please clarify the following: [ X] Anoxic Encephalopathy [ ] Metabolic Encephalopathy [ ] Toxic Encephalopathy [ ] Other, please specify [ ] Unable to determine (Template Last Revised: September 2020) MTDD
[2022-04-22 12:11] LABS: Glucose,Whole Blood 293 mg/dL (70-110)
[2022-04-22 12:33] LABS: ABG Base Excess 12.8 mmol/L; ABG HCO3 38 mmol/L (21-25); ABG Oxygen Saturation 98.1 % (94-97); ABG PCO2 65 mmHg (35-45); ABG PH 7.38 (7.35-7.45); ABG PO2 92 mmHg (83-108); ABG TCO2 40 mmol/L (19-24); Allen Test Performed? Yes
[2022-04-22 12:38] LABS: ABG Hematocrit 20 % (34.0-46.0)
--- NOTE | 2022-04-22 12:45 | P.PN ---
Subjective Progress Note Date: 04/22/22 Pulmonary consultation dated 04/13/2022. 72-year-old female seen in the emergency room, on April 12. She presented to the emergency room, from the nursing facility with low saturations. She apparently told the ER personnel she had no complaints, and felt fine. She does have a history of hypoxemic and hypercapnic respiratory failure, as well as congestive heart failure. She does wear oxygen at home. Currently, the patient is on BiPAP, with settings of 14/5 and 35%. She was recently inpatient between April 06 and April 10. She's getting saline at KVO. She is also on IV Levaquin. She appears in no distress. She was sleeping when I first went into the room. White count 8.8, hemoglobin 7.5, hematocrit 24.8, and platelet count 229,000. D-dimer was 1.55. PT 12.8. Blood gases show a PaO2 of 37, pCO2 of 59, and a pH is 7.46. That was on room air. Sodium 140, potassium 4.1, chlorides 92, CO2 39, BUN 39, and creatinine 0.88. N-terminal proBNP was 7280. A nasal swab for coronavirus was negative. Influenza studies were also negative. A pro-calcitonin level was ordered by me. Chest x-ray was consistent in my opinion with CHF. CT angiogram showed no evidence of central pulmonary emboli. In addition, the computed tomography scan was consistent with CHF. Progress note dated 04/14/2022. The patient is seen today in room 363. Yesterday, she was on BiPAP. Currently, she is on 2 L. Her pro-calcitonin level is very low, so we will discontinue the Levaquin. She is getting saline, at 10 mL an hour. On BiPAP, her BiPAP settings are 14/5 and 35%. In fact, she is asking for the BiPAP as we speak. She is feeling better today than yesterday. CT angiogram was negative for pulmonary embolism. Sodium 141, potassium 4, chlorides 93, CO2 42, anion gap normal, BUN 41, and creatinine 1.20. Progress note dated 04/15/2022. The patient is again seen in room 363. Like yesterday, she was sleepy, and very lethargic. She's currently on oxygen at 2 L. She's not receiving any IV fluids. The BiPAP device is in the room and I suspect that she has used BiPAP on and off since yesterday. Laboratory data today includes a white count of 6.8, hemoglobin 7.6, hematocrit 25.3, and a platelet count of 239,000. Sodium 140, potassium 4.2, chlorides 92, CO2 42, BUN 42, and creatinine 1.45. Progress note dated 04/16/2022. 72-year-old female again seen in room 363. The patient is currently on 2 L of oxygen. She's getting saline at 10 mL an hour. He spent the entire night on BiPAP, with settings of 14/5, and 35%. She used to have a CPAP device, but apparently it does not work. Clinically, she is much more awake today. No new labs today she had other than a glucose of 203. She denies any shortness of breath, cough, wheezing, or phlegm production. She also denies any chest pain or chest discomfort. She denies any fever or chills. She denies any GI or symptoms. Progress note dated 04/17/2022. 72-year-old obese female seen in room 363. She is currently on 2 L of oxygen. She uses BiPAP at night team, with settings of 14/5 and 35%. The patient's getting saline at KVO. Clinically she is doing better. She does need to use either CPAP or BiPAP at nighttime. BiPAP is preferred. She is clinically feeling better. Sodium 141, potassium 4.1, chlorides 90, CO2 47, BUN 38, creatinine 1.64. Progress note dated 04/18/2022. 72-year-old obese white female, again seen in room 363. She's currently on 2 L of oxygen. At nighttime, the patient uses BiPAP, with settings of 14/5 and 35%. The patient is receiving saline at 10 mL an hour. Laboratory data today includes a sodium 138, potassium 4.4, chlorides 91, CO2 41, with a BUN of 37 and a creatinine of 1.49. Glucose 366. No recent chest x-ray to review. Progress note dated 04/19/2022. 72-year-old obese white female, seen again in room 363. She remains on 2 L of oxygen, and is also receiving saline at 10 mL an hour. At nighttime, she is on BiPAP, with settings of 14/5 and 35%. Clinically, the patient has improved. She is feeling better. She is much less short of breath. White count 7.7, hemoglobin 7.4, hematocrit 25.8, and platelet count 250,000. Sodium 140, potassium 4.5, chlorides 92, CO2 44, BUN 37, and creatinine 1.62. On today's evaluation of 04/20/2022, the patient is awake and alert and she is communicating and she is on 3 L of oxygen by nasal cannula. Serum the hospital, the patient is utilizing a BiPAP at a pressure of 14/5 cm of water. She is morbidly obese and she has severe obstructive sleep apnea and she has been maintained on APAP machine on outpatient basis with a full facemask. She was in the hospital back in January 2022 for a covid 19 infection from which she recovered. Since then, the patient has been in [facility]. She is morbidly obese. She has chronic diastolic heart failure, chronic atrial fibrillation, hypertension, hypothyroidism, chronic anxiety and depression. She does have diabetic peripheral neuropathy, chronic lower extremity edema and episodic cellulitis. She is doing well for now. She has no specific comp laints. She has also a component of chronic kidney disease. Her creatinine from today is still pending. Meanwhile, the patient has developed an acute kidney injury during this current admission and the creatinine is up to 1.6 and the findings on the case. She also has chronic metabolic alkalosis. The most recent blood gas that was done on 04/17/2022 showed compensated chronic hypercapnic respiratory failure with a pH of 7.35 and a pCO2 of 78 and pO2 of 112. No recent chest x-ray is available or done on this patient. The patient is about to leave to [facility] on the [place] today. She is on Diamox 500 mg by mouth twice a day. She is also on long-term and to coagulation with liquids. Cardiac rhythm is atrial fibrillation. She is on Levemir insulin 50 units once a day along with a NovoLog 7 units with meals and a sliding scale coverage. She is on Lasix 40 mg by mouth daily. She takes Remeron at bedtime. She 04/21/2022, the patient is awake and alert and this morning the patient on a BiPAP at a pressure of 14/5 cm of water, 35%. She is urinating a tidal volume of above 400 and her respiratory rate is in a low 20s she seems to be quite comfortable. I was told by the nursing staff that the patient was somewhat confused this morning. She did not know her birthdate and she did not know her location. She was on oxygen at 2 L. I was also told that overnight, the patient did not use her BiPAP. Based on that, she was placed back on a BiPAP and currently she is asynchronous and she is much more alert and following commands. She remains on Lasix 40 mg by mouth daily. She is also taking Diamox 500 mg by mouth twice a day. No blood work from today is available yet. She remains on Levemir insulin 50 units daily and NovoLog with meals at 7 units and a sliding scale coverage. The plan is to transfer out either today or tomorrow back to the [facility]. She has no specific complaints. No chest pain. No altered mentation. She is completing a course of Keflex to 500 mg by mouth 3 times a day. 04/22/2022, the patient is wearing a BiPAP. I was told that the patient will the BiPAP throughout the day yesterday. She also warned overnight. The blood gases was done while the patient was on BiPAP yesterday showed a pH of 7.37 with a pCO2 of 68 and pO2 76. Subsequently, this morning, the patient was placed on 2 L of oxygen by nasal cannula. She was found to be confused and sleepy. She was placed back on the BiPAP. I'm not absolutely sure the patient is going into CO2 narcosis. I would like to put her back on 2 L of oxygen by nasal cannula and remeasure her blood gases. Otherwise, the patient remains on Diamox and the serum bicarbonate is down to 37. The patient is also on Lasix 40 mg by mouth daily. Repeat chest x-ray was done this morning and the findings are still indicating stable CHF. There is an underlying pulmonary vascular congestion. The patient resting comfortably in bed. No chest pain. No significant sputum production. Blood work from today showed a white cell count of 8.8 with hemoglobin of 7. Sodium is at 137 and the potassium is at 4.2 and the serum bicarbs and 37 with a mean of 41 and a creatinine of 1.5. Objective - Vital Signs Vital signs: Vital Signs Temp 98.1 F 04/22/22 11:46 Pulse 83 04/22/22 11:46 Resp 18 04/22/22 11:46 BP 135/52 04/22/22 11:46 Pulse Ox 98 04/22/22 11:46 FiO2 35 04/22/22 03:42 Intake & Output 04/21/22 04/22/22 04/22/22 18:59 06:59 18:59 Intake Total 476 Output Total 500 Balance -24 Weight 146.5 kg Intake: Oral 476 Output: Urine 500 Other: Voiding Method Diaper Diaper Diaper External Catheter External Catheter External Catheter - Exam No acute distress, awake and alert, breathing is unlabored and the patient is communicating. the patient is using the BiPAP overnight at a pressure of 14/5 c m of water, FiO2 of 35%. No audible wheezing, or respiratory distress. No use of accessory muscles. HEENT examination is grossly unremarkable. Neck supple. Full range of motion. No adenopathy thyromegaly or neck vein distention. Cardiovascular examination reveals regular rhythm rate. S1-S2 normal. No S3 or S4. No discernible murmur noted. Heart sounds are distant. Lungs reveal diffuse bilateral rhonchi, and bilateral crackles. Breath sounds equal bilaterally, but diminished throughout. No wheezes. Abdomen soft bowel sounds are heard. No masses or tenderness. Extremities are intact. No cyanosis or clubbing. Mild to moderate edema is noted. Examination of the skin revealed no evidence of significant rashes, suspicious appearing nevi or other concerning lesions. Neurologically, the patient is awake and alert and the patient does not have any focal neurological deficit. Cranial nerves are essentially intact. - Labs CBC & Chem 7: 04/22/22 08:46 04/22/22 08:46 Labs: Abnormal Lab Results - Last 24 Hours (Table) 04/21/22 04/21/22 04/22/22 Range/Units 16:49 19:35 06:17 RBC (3.80-5.40) m/uL Hgb (11.4-16.0) gm/dL Hct (34.0-46.0) % MCHC (31.0-37.0) g/dL RDW (11.5-15.5) % Lymphocytes # (1.0-4.8) k/uL ABG pCO2 (35-45) mmHg ABG HCO3 (21-25) mmol/L ABG Total CO2 (19-24) mmol/L ABG O2 Saturation (94-97) % ABG Hematocrit (34.0-46.0) % Hemoglobin (11.4-16.0) gm/dL Chloride (98-107) mmol/L Carbon Dioxide (22-30) mmol/L BUN (7-17) mg/dL Creatinine (0.52-1.04) mg/dL Glucose (74-99) mg/dL POC Glucose (mg/dL) 162 H 193 H 167 H (70-110) mg/dL 04/22/22 04/22/22 04/22/22 Range/Units 08:46 08:46 11:45 RBC 2.49 L (3.80-5.40) m/uL Hgb 7.0 L (11.4-16.0) gm/dL Hct 23.5 L (34.0-46.0) % MCHC 29.6 L (31.0-37.0) g/dL RDW 17.5 H (11.5-15.5) % Lymphocytes # 0.9 L (1.0-4.8) k/uL ABG pCO2 (35-45) mmHg ABG HCO3 (21-25) mmol/L ABG Total CO2 (19-24) mmol/L ABG O2 Saturation (94-97) % ABG Hematocrit (34.0-46.0) % Hemoglobin (11.4-16.0) gm/dL Chloride 92 L (98-107) mmol/L Carbon Dioxide 37 H (22-30) mmol/L BUN 41 H (7-17) mg/dL Creatinine 1.50 H (0.52-1.04) mg/dL Glucose 190 H (74-99) mg/dL POC Glucose (mg/dL) 293 H (70-110) mg/dL 04/22/22 Range/Units 12:28 RBC (3.80-5.40) m/uL Hgb (11.4-16.0) gm/dL Hct (34.0-46.0) % MCHC (31.0-37.0) g/dL RDW (11.5-15.5) % Lymphocytes # (1.0-4.8) k/uL ABG pCO2 65 H (35-45) mmHg ABG HCO3 38 H (21-25) mmol/L ABG Total CO2 40 H (19-24) mmol/L ABG O2 Saturation 98.1 H (94-97) % ABG Hematocrit 20 L* (34.0-46.0) % Hemoglobin 6.4 L* (11.4-16.0) gm/dL Chloride (98-107) mmol/L Carbon Dioxide (22-30) mmol/L BUN (7-17) mg/dL Creatinine (0.52-1.04) mg/dL Glucose (74-99) mg/dL POC Glucose (mg/dL) (70-110) mg/dL Assessment and Plan Plan: Acute on chronic hypoxemic and hypercapnic respiratory failure, most likely related to fluid overload/CHF. Doubt pneumonia, as pro-calcitonin level was quite low. Repeat chest x-ray from today still showing mild four-vessel congestion. The patient remains on Lasix and Diamox. Blood gases from yesterday was noted and the patient has well compensated chronic hypercapnic and hypoxic respiratory failure. History of atrial fibrillation. The rate is controlled and the patient remains on anticoagulation with Eliquis History of CAD, status post 2 vessel bypass grafting, 1996. History of diabetes mellitus. Hyperlipidemia. Hypertension. Sleep apnea syndrome. Hypothyroidism. History of diabetic retinopathy and neuropathy He. History of gout. Stage III chronic kidney disease. Morbid obesity. Multiple other medical problems and comorbidities. Plan Keep the patient on the BiPAP overnight Take the patient off the BiPAP at 2 L per minute nasal cannula and repeat the blood gas Stop the Diamox as the patient's serum bicarbonate is down to 37 and the most recent base status is adequate Follow-up chest x-ray from today was noted Continue Lasix Complete a course of Keflex to 50 mg by mouth 3 times a day Blood sugar control with Lantus insulin and the NovoLog Monitor renal function outpatient basis, creatinine stable We'll continue to follow
--- NOTE | 2022-04-22 16:37 | P.PN ---
Subjective Patient is seen in follow-up for acute kidney injury. On oral diuretics. Nonoliguric. Blood pressure stable. Oral intake fair. No vomiting or d iarrhea. Denies chest pain or shortness of breath. Maintained on Diamox for metabolic alkalosis. Lasix is currently at 40 mg by mouth daily Serum creatinine is down to 1.4 today Currently off of BiPAP Objective - Vital Signs Vital signs: Vital Signs Temp 98.1 F 04/22/22 11:46 Pulse 83 04/22/22 14:00 Resp 18 04/22/22 14:00 BP 135/52 04/22/22 11:46 Pulse Ox 98 04/22/22 11:46 FiO2 35 04/22/22 03:42 Intake & Output 04/21/22 04/22/22 04/22/22 18:59 06:59 18:59 Intake Total 476 Output Total 500 Balance -24 Weight 146.5 kg Intake: Oral 476 Output: Urine 500 Other: Voiding Method Diaper Diaper Diaper External Catheter External Catheter External Catheter - Exam Patient is awake, comfortable, not in any acute distress Maintained on BiPAP Examination of the heart S1 and S2 Examination lungs bilateral breath sounds are heard Abdomen is soft nontender Examination lower extremities shows chronic edema bilaterally [employer] exam is grossly intact - Labs CBC & Chem 7: 04/22/22 08:46 04/22/22 08:46 Labs: Abnormal Lab Results - Last 24 Hours (Table) 04/21/22 04/21/22 04/22/22 Range/Units 16:49 19:35 06:17 RBC (3.80-5.40) m/uL Hgb (11.4-16.0) gm/dL Hct (34.0-46.0) % MCHC (31.0-37.0) g/dL RDW (11.5-15.5) % Lymphocytes # (1.0-4.8) k/uL ABG pCO2 (35-45) mmHg ABG HCO3 (21-25) mmol/L ABG Total CO2 (19-24) mmol/L ABG O2 Saturation (94-97) % ABG Hematocrit (34.0-46.0) % Hemoglobin (11.4-16.0) gm/dL Chloride (98-107) mmol/L Carbon Dioxide (22-30) mmol/L BUN (7-17) mg/dL Creatinine (0.52-1.04) mg/dL Glucose (74-99) mg/dL POC Glucose (mg/dL) 162 H 193 H 167 H (70-110) mg/dL 04/22/22 04/22/22 04/22/22 Range/Units 08:46 08:46 11:45 RBC 2.49 L (3.80-5.40) m/uL Hgb 7.0 L (11.4-16.0) gm/dL Hct 23.5 L (34.0-46.0) % MCHC 29.6 L (31.0-37.0) g/dL RDW 17.5 H (11.5-15.5) % Lymphocytes # 0.9 L (1.0-4.8) k/uL ABG pCO2 (35-45) mmHg ABG HCO3 (21-25) mmol/L ABG Total CO2 (19-24) mmol/L ABG O2 Saturation (94-97) % ABG Hematocrit (34.0-46.0) % Hemoglobin (11.4-16.0) gm/dL Chloride 92 L (98-107) mmol/L Carbon Dioxide 37 H (22-30) mmol/L BUN 41 H (7-17) mg/dL Creatinine 1.50 H (0.52-1.04) mg/dL Glucose 190 H (74-99) mg/dL POC Glucose (mg/dL) 293 H (70-110) mg/dL 04/22/22 Range/Units 12:28 RBC (3.80-5.40) m/uL Hgb (11.4-16.0) gm/dL Hct (34.0-46.0) % MCHC (31.0-37.0) g/dL RDW (11.5-15.5) % Lymphocytes # (1.0-4.8) k/uL ABG pCO2 65 H (35-45) mmHg ABG HCO3 38 H (21-25) mmol/L ABG Total CO2 40 H (19-24) mmol/L ABG O2 Saturation 98.1 H (94-97) % ABG Hematocrit 20 L* (34.0-46.0) % Hemoglobin 6.4 L* (11.4-16.0) gm/dL Chloride (98-107) mmol/L Carbon Dioxide (22-30) mmol/L BUN (7-17) mg/dL Creatinine (0.52-1.04) mg/dL Glucose (74-99) mg/dL POC Glucose (mg/dL) (70-110) mg/dL Assessment and Plan Assessment: 1. Acute kidney injury mostly prerenal secondary to cardiorenal syndrome and also concern for contrast-induced acute kidney injury. Patient received IV contrast for CT on 04/12/2022. Renal function is improving. Baseline creatini ne near 1. No hydronephrosis noted on kidney ultrasound. UA benign. 2. Metabolic alkalosis secondary to diuresis. on Diamox. 3. Diabetes mellitus. 4. Acute on chronic diastolic CHF with mild aortic stenosis, severe tricuspid regurgitation and pulmonary hypertension. 5. Volume overload. improved with diuresis. 6. Anemia. Iron deficiency noted. Status post IV iron 7. Acute on chronic hypercapnic respiratory failure. Plan: Continue with lasix and diamox Monitor labs as out patient.
== END 2022-04-22 15:35 | DRG 291 ==
LOC: EC 11:08 → 3SCARD 14:24
PROVIDERS: ADMIT Family Medicine; ATTEND Family Medicine
PROC: 5A09357 Assistance with Respiratory Ventilation, Less than 24 Consecutive Hours, Continuous Positive Airway Pressure (ICD-10-PCS; principal; 2022-04-19)
DX: I13.0 Hypertensive heart and chronic kidney disease with heart failure and stage 1 through stage 4 chronic kidney disease, or unspecified chronic kidney disease (principal); I50.33 Acute on chronic diastolic (congestive) heart failure; J96.21 Acute and chronic respiratory failure with hypoxia; J96.22 Acute and chronic respiratory failure with hypercapnia; G93.1 Anoxic brain damage, not elsewhere classified; Z68.43 Body mass index [BMI] 50.0-59.9, adult; L03.115 Cellulitis of right lower limb; I48.19 Other persistent atrial fibrillation; E87.3 Alkalosis; N17.9 Acute kidney failure, unspecified; L03.116 Cellulitis of left lower limb; J84.10 Pulmonary fibrosis, unspecified; U09.9 Post COVID-19 condition, unspecified; E11.22 Type 2 diabetes mellitus with diabetic chronic kidney disease; E78.5 Hyperlipidemia, unspecified; I07.1 Rheumatic tricuspid insufficiency; I27.20 Pulmonary hypertension, unspecified; I25.10 Atherosclerotic heart disease of native coronary artery without angina pectoris; E66.01 Morbid (severe) obesity due to excess calories; E03.9 Hypothyroidism, unspecified; Z20.822 Contact with and (suspected) exposure to COVID-19; N18.30 Chronic kidney disease, stage 3 unspecified; T50.2X5A Adverse effect of carbonic-anhydrase inhibitors, benzothiadiazides and other diuretics, initial encounter; E11.42 Type 2 diabetes mellitus with diabetic polyneuropathy; F32.A Depression, unspecified; F41.9 Anxiety disorder, unspecified; D63.1 Anemia in chronic kidney disease; E11.65 Type 2 diabetes mellitus with hyperglycemia; G47.33 Obstructive sleep apnea (adult) (pediatric); J44.9 Chronic obstructive pulmonary disease, unspecified; E11.319 Type 2 diabetes mellitus with unspecified diabetic retinopathy without macular edema; Z99.81 Dependence on supplemental oxygen; Z95.1 Presence of aortocoronary bypass graft; Z79.01 Long term (current) use of anticoagulants; Z79.4 Long term (current) use of insulin; Z79.890 Hormone replacement therapy; Z79.899 Other long term (current) drug therapy; Z90.710 Acquired absence of both cervix and uterus; Z98.84 Bariatric surgery status; Z88.6 Allergy status to analgesic agent; Z88.0 Allergy status to penicillin; Z82.49 Family history of ischemic heart disease and other diseases of the circulatory system
CPT/HCPCS: 36415; 36600; 71045; 71046; 71275; 76770; 80048; 80053; 81001; 82728; 82805; 83540; 83550; 83605; 83735; 83880; 84145; 84484; 85025; 85379; 85610; 85730; 87502; 87635; 93005; 94660; 94760; 96374; 99291

== ENCOUNTER 2022-05-08 11:10 | Inpatient (IN) | payer MEDICARE, OTHER ==
--- NOTE | 2022-05-08 11:28 | ED ---
General Adult HPI - General Stated complaint: Abnormal Labs Time Seen by Provider: 05/08/22 11:10 Source: patient, RN notes reviewed, old records reviewed - History of Present Illness Initial comments: This is a 72-year-old female who is brought into the emergency department because her hemoglobin was 6.8 at the [facility]. Patient does complain of some shortness of breath but she states she still is a little bit short of breath. Patient states she had COVID a few months ago and ever since has felt as though she's been more short of breath at her baseline. Patient denies chest pain or palpitations. Patient denies abdominal pain patient denies nausea vomiting diarrhea. Patient denies lightheadedness or dizziness. - Related Data Home Medications Medication Instructions Recorded Confirmed Atorvastatin [Lipitor] 40 mg PO HS@209908/10/16 05/08/22 Isosorbide Mononitrate [Isosorbide 30 mg PO DAILY@0900 08/10/16 05/08/22 Mononitrate ER] Levothyroxine Sodium [Tirosint] 50 mcg PO DAILY@0600 08/10/16 05/08/22 Oxybutynin Chloride 5 mg PO BID@0900,209908/10/16 05/08/22 Apixaban [Eliquis] 5 mg PO BID@0900,209904/12/22 05/08/22 Metoprolol Tartrate [Lopressor] 50 mg PO TID@,,04/12/22 05/08/22 Mirtazapine [Remeron] 15 mg PO HS@2100 04/12/22 05/08/22 Acetaminophen Tab [Tylenol] 650 mg PO Q6H PRN 05/08/22 05/08/22 Docusate [Colace] 100 mg PO DAILY@0900 05/08/22 05/08/22 Furosemide [Lasix] 40 mg PO DAILY@0600 05/08/22 05/08/22 Insulin Glargine-Yfgn [Semglee 50 units SQ DAILY@0900 05/08/22 05/08/22 (Yfgn) Pen] Insulin Lispro [humaLOG Kwikpen] 5 unit SQ AC-TID@,,05/08/22 05/08/22 Insulin Lispro [humaLOG Kwikpen] See Protocol SQ ACHS@,,,21 05/08/22 05/08/22 Omeprazole 20 mg PO DAILY@0600 05/08/22 05/08/22 Potassium Chloride ER [K-Dur 20] 20 meq PO DAILY@0900 05/08/22 05/08/22 Previous Rx's Medication Instructions Recorded Gabapentin [Neurontin] 300 mg PO BID@0900,2100 #6 cap 04/20/22 SILVER sulfADIAZINE CREAM 1 applic TOPICAL DAILY each 04/20/22 [Silvadene Cream] Allergies Allergy/AdvReac Type Severity Reaction Status Date / Time ibuprofen [From Motrin] Allergy Rash/Hives Verified 05/08/22 14:23 Penicillins Allergy Anaphylaxis Verified 05/08/22 14:23 Review of Systems ROS Statement: Those systems with pertinent positive or pertinent negative responses have been documented in the HPI. ROS Other: All systems not noted in ROS Statement are negative. Past Medical History Past Medical History: Atrial Fibrillation, Coronary Artery Disease (CAD), Diabetes Mellitus, Eye Disorder, Hyperlipidemia, Hypertension, Osteoarthritis (OA), Pneumonia, Renal Disease, Sleep Apnea/CPAP/BIPAP, Thyroid Disorder Additional Past Medical History / Comment(s): Pt recently admitted to [facility] on 02/12/22 with covic pneumonia/sepsis, acute hypoxic respiratory failure/now on home oxygen ATC, new A fib with RVR. Other hx: IDDM type II, neuropathy bilateral feet, L eye retinal bleed/lasik eye surgery, R eye cataract, bilateral eye macular degeneration/gets injections/poor vision, CKD stage III, anemia, UTI/sepsis, bilateral leg lymphedema/currently has "rash" R lower leg/one spot on L lower leg, FLORES/does not have cpap machine at this time, diverticulitis, gout, chronic back pain, rheumatic fever, hypothyroid. History of Any Multi-Drug Resistant Organisms: None Reported Past Surgical History: Bariatric Surgery, Section, Cholecystectomy, Coronary Bypass/CABG, Heart Catheterization, Hysterectomy, Tonsillectomy Additional Past Surgical History / Comment(s): A 2 vessel CABG in 1996, bilateral carpal tunnel release, lap band, L eye laser surgery, Past Anesthesia/Blood Transfusion Reactions: No Reported Reaction Smoking Status: Never smoker - Past Family History Father Family Medical History: Cancer, Coronary Artery Disease (CAD), Diabetes Mellitus Additional Family Medical History / Comment(s): Prostate cancer Mother Family Medical History: Cancer Additional Family Medical History / Comment(s): Bone cancer. General Exam - General Exam Comments Initial Comments: GENERAL: Patient is well-developed and well-nourished. Patient is nontoxic and well- hydrated and is in no acute distress. Patient is actually 100% on room air ENT: Neck is soft and supple. No significant lymphadenopathy is noted. Oropharynx is clear. Moist mucous membranes. Neck has full range of motion without eliciting any pain. EYES: The sclera were anicteric and conjunctiva are pale. Extraocular movements were intact and pupils were equal round and reactive to light. Eyelids were u nremarkable. PULMONARY: Unlabored respirations. Good breath sounds bilaterally. No audible rales rhonchi or wheezing was noted. CARDIOVASCULAR: There is a regular rate and rhythm without any murmurs gallops or rubs. ABDOMEN: Soft and nontender with normal bowel sounds. SKIN: Skin is pale and there is slow capillary refill in the fingers. NEUROLOGIC: Patient is alert and oriented x3. Cranial nerves II through XII are grossly intact. Motor and sensory are also intact. Normal speech, volume and content. Symmetrical smile. MUSCULOSKELETAL: Normal extremities with adequate strength and full range of motion. LYMPHATICS: No significant lymphadenopathy is noted PSYCHIATRIC: Normal psychiatric evaluation. Course Vital Signs 05/08/22 05/08/22 11:16 12:01 Temperature 98 F 98.5 F Pulse Rate 89 68 Respiratory 16 16 Rate Blood Pressure 127/58 145/85 O2 Sat by Pulse 100 98 Oximetry Medical Decision Making - Medical Decision Making Patient's hemoglobin was below 7 so the patient did receive 1 unit of packed red blood cells. I spoke with Dr. Jama he agreed to admit the patient the patient wrote admitting orders. I ordered repeat CBC I consulted GI Patient's chest x-ray shows pulmonary edema. I started the patient on Lasix consult to cardiology. - Lab Data Result diagrams: 05/08/22 12:00 05/08/22 12:00 Lab Results 05/08/22 05/08/22 05/08/22 Range/Units 11:50 12:00 12:00 WBC 5.5 (3.8-10.6) k/uL RBC 2.44 L (3.80-5.40) m/uL Hgb 6.7 L* (11.4-16.0) gm/dL Hct 22.3 L (34.0-46.0) % MCV 91.5 (80.0-100.0) fL MCH 27.6 (25.0-35.0) pg MCHC 30.2 L (31.0-37.0) g/dL RDW 17.3 H (11.5-15.5) % Plt Count 175 (150-450) k/uL MPV 8.9 Neutrophils % 76 % Lymphocytes % 13 % Monocytes % 5 % Eosinophils % 4 % Basophils % 0 % Neutrophils # 4.1 (1.3-7.7) k/uL Lymphocytes # 0.7 L (1.0-4.8) k/uL Monocytes # 0.3 (0-1.0) k/uL Eosinophils # 0.2 (0-0.7) k/uL Basophils # 0.0 (0-0.2) k/uL Hypochromasia Marked Anisocytosis Slight PT 12.0 (9.0-12.0) sec INR 1.1 (<1.2) APTT 25.7 (22.0-30.0) sec Sodium (137-145) mmol/L Potassium (3.5-5.1) mmol/L Chloride (98-107) mmol/L Carbon Dioxide (22-30) mmol/L Anion Gap mmol/L BUN (7-17) mg/dL Creatinine (0.52-1.04) mg/dL Est GFR (CKD-EPI)AfAm (>60 ml/min/1.73 sqM) Est GFR (CKD-EPI)NonAf (>60 ml/min/1.73 sqM) Glucose (74-99) mg/dL Plasma Lactic Acid Garcia (0.7-2.0) mmol/L Calcium (8.4-10.2) mg/dL Magnesium (1.6-2.3) mg/dL Total Bilirubin (0.2-1.3) mg/dL AST (14-36) U/L ALT (4-34) U/L Alkaline Phosphatase (38-126) U/L Troponin I (0.000-0.034) ng/mL Total Protein (6.3-8.2) g/dL Albumin (3.5-5.0) g/dL Blood Type O Positive Blood Type Recheck O Pos Bld Type Recheck Status No Antibody Screen NEGATIVE Crossmatch See Detail Spec Expiration Date 05/11/2022 - 234905/08/22 05/08/22 05/08/22 Range/Units 12:00 12:00 12:18 WBC (3.8-10.6) k/uL RBC (3.80-5.40) m/uL Hgb (11.4-16.0) gm/dL Hct (34.0-46.0) % MCV (80.0-100.0) fL MCH (25.0-35.0) pg MCHC (31.0-37.0) g/dL RDW (11.5-15.5) % Plt Count (150-450) k/uL MPV Neutrophils % % Lymphocytes % % Monocytes % % Eosinophils % % Basophils % % Neutrophils # (1.3-7.7) k/uL Lymphocytes # (1.0-4.8) k/uL Monocytes # (0-1.0) k/uL Eosinophils # (0-0.7) k/uL Basophils # (0-0.2) k/uL Hypochromasia Anisocytosis PT (9.0-12.0) sec INR (<1.2) APTT (22.0-30.0) sec Sodium 138 (137-145) mmol/L Potassium 5.4 H (3.5-5.1) mmol/L Chloride 93 L (98-107) mmol/L Carbon Dioxide 39 H (22-30) mmol/L Anion Gap 6 mmol/L BUN 43 H (7-17) mg/dL Creatinine 1.13 H (0.52-1.04) mg/dL Est GFR (CKD-EPI)AfAm 56 (>60 ml/min/1.73 sqM) Est GFR (CKD-EPI)NonAf 48 (>60 ml/min/1.73 sqM) Glucose 219 H (74-99) mg/dL Plasma Lactic Acid Garcia 1.0 (0.7-2.0) mmol/L Calcium 8.7 (8.4-10.2) mg/dL Magnesium 2.0 (1.6-2.3) mg/dL Total Bilirubin 0.7 (0.2-1.3) mg/dL AST 16 (14-36) U/L ALT 13 (4-34) U/L Alkaline Phosphatase 84 (38-126) U/L Troponin I <0.012 (0.000-0.034) ng/mL Total Protein 6.1 L (6.3-8.2) g/dL Albumin 3.0 L (3.5-5.0) g/dL Blood Type Blood Type Recheck Bld Type Recheck Status Antibody Screen Crossmatch Spec Expiration Date Critical Care Time Critical Care Time: Yes Total Critical Care Time: 35 Disposition Clinical Impression: Anemia, Pulmonary edema Disposition: ADMITTED IP TO THIS [facility] Time of Disposition: 14:09
[2022-05-08 12:20] LABS: Anisocytosis Slight; Basophils % (A) 0 %; Eosinophils # (A) 0.2 k/uL (0-0.7); Eosinophils % (A) 4 %; HCT 22.3 % (34.0-46.0); Hypochromasia Marked; Lymphocytes # (A) 0.7 k/uL (1.0-4.8); Lymphocytes % (A) 13 %; MCH 27.6 pg (25.0-35.0); MCHC 30.2 g/dL (31.0-37.0); MCV 91.5 fL (80.0-100.0); Mean Platelet Volume 8.9; Monocytes # (A) 0.3 k/uL (0-1.0); Monocytes % (A) 5 %; Neutrophils # (A) 4.1 k/uL (1.3-7.7); Neutrophils % (A) 76 %; Platelet Count 175 k/uL (150-450); RBC 2.44 m/uL (3.80-5.40); RDW 17.3 % (11.5-15.5); WBC 5.5 k/uL (3.8-10.6)
[2022-05-08 12:23] LABS: HGB 6.7 gm/dL (11.4-16.0); INR 1.1 (<1.2); Partial Thromboplastin Time 25.7 sec (22.0-30.0)
[2022-05-08 12:57] LABS: Calcium 8.7 mg/dL (8.4-10.2); Potassium 5.4 mmol/L (3.5-5.1); Total Bilirubin 0.7 mg/dL (0.2-1.3); Total Protein 6.1 g/dL (6.3-8.2)
--- NOTE | 2022-05-08 14:37 | XR ---
EXAMINATION TYPE: XR chest 2V DATE OF EXAM: 05/08/2022 COMPARISON: 04/22/2022 INDICATION: Difficulty breathing TECHNIQUE: Frontal and lateral views of the chest are obtained. FINDINGS: The heart size is prominent. The pulmonary vasculature is somewhat prominent. Diffuse increased lung markings are present. Sternotomy wires are present from prior CABG.. IMPRESSION: 1. Correlate for congestive heart failure.
[2022-05-08] MEDS ORDERED: FUROSEMIDE 10 MG/ML 4 ML VIAL IV STA (14:39)
[2022-05-08 17:54] LABS: Glucose,Whole Blood 180 mg/dL (70-110)
[2022-05-08] MEDS ORDERED: DEXTROSE 50% SYRINGE 50 ML IVP PRN ×2 (20:02)
[2022-05-08 20:13] LABS: Glucose,Whole Blood 179 mg/dL (70-110)
[2022-05-08] MEDS: ATORVASTATIN 40 MG TAB PO SCH (20:23)
[2022-05-08] MEDS: MIRTAZAPINE 15 MG TAB PO SCH (20:23)
[2022-05-08] MEDS: OXYBUTYNIN CHLORIDE 5 MG TAB PO SCH (20:23)
[2022-05-08] MEDS: INSULIN ASPART (NovoLOG) 100 UNIT/ML VIAL SQ SCH (20:23)
[2022-05-08] MEDS: METOPROLOL TARTRATE 50 MG TAB PO SCH (20:23)
[2022-05-08] MEDS: GABAPENTIN 300 MG CAP PO SCH (20:23)
[2022-05-09] MEDS: FUROSEMIDE 10 MG/ML 2 ML VIAL IV SCH ×3 (00:12→18:46)
[2022-05-09] MEDS: LEVOTHYROXINE 50 MCG TAB PO SCH (05:47)
[2022-05-09] MEDS: PANTOPRAZOLE 40 MG TABLET PO SCH (05:47)
[2022-05-09] MEDS ORDERED: FUROSEMIDE 40 MG TAB PO SCH (06:00)
[2022-05-09 07:03] LABS: Glucose,Whole Blood 170 mg/dL (70-110)
--- NOTE | 2022-05-09 07:17 | P.CRDCN ---
History of Present Illness Consult date: 05/09/22 Chief complaint: CHF History of present illness: The patient is a pleasant 72-year-old female patient who sees Dr. Weller irregularly with a past medical history significant for permanent atrial fibrillation as well as coronary artery disease with prior stenting as well as heart failure with preserved ejection fraction and also aortic stenosis and also hypertension and dyslipidemia. We consulted to see the patient mainly because off congestive heart failure. The patient somewhat is a poor historian. Apparently the patient was initially facility was getting rehab for bilateral lower extremity weakness. She was brought to the hospital because she was more short of breath. The patient reports mild increase in the shortness of breath m ost noticeable symptoms for her is increasing in the lower extremities edema. Further investigation was advised and the patient was brought to the emergency department. She was found to be anemic with a hemoglobin below 7. She was receiving oral anticoagulation for the atrial fibrillation. She reports no symptoms of chest pain or chest discomfort and no dizziness or lightheadedness and no feeling of heart racing or fluttering and no presyncope or syncope. When she was seen and evaluated this morning she is in mild heart failure with diminished breathing sounds bilaterally and bilateral rhonchi and also she does have bilateral lower extremities edema and her feet are currently wrapped be cause of edema. She stated that the edema has improved after she was given Lasix. She stated that she has been compliant with her medications including diuretics. She was admitted to the hospital recently with heart failure and she underwent an echo which revealed low-normal left ventricle systolic function with evidence of mild aortic stenosis but otherwise no significant valvular abnormalities. Past Medical History Past Medical History: Atrial Fibrillation, Coronary Artery Disease (CAD), Diabetes Mellitus, Eye Disorder, Hyperlipidemia, Hypertension, Osteoarthritis (OA), Pneumonia, Renal Disease, Sleep Apnea/CPAP/BIPAP, Thyroid Disorder Additional Past Medical History / Comment(s): Pt recently admitted to [facility] on 02/12/22 with covic pneumonia/sepsis, acute hypoxic respiratory failure/now on home oxygen ATC, new A fib with RVR. Other hx: IDDM type II, neuropathy bilateral feet, L eye retinal bleed/lasik eye surgery, R eye cataract, bilateral eye macular degeneration/gets injections/poor vision, CKD stage III, anemia, UTI/sepsis, bilateral leg lymphedema/currently has "rash" R lower leg/one spot on L lower leg, FLORES/does not have cpap machine at this time, diverticulitis, gout, chronic back pain, rheumatic fever, hypothyroid. History of Any Multi-Drug Resistant Organisms: None Reported Past Surgical History: Bariatric Surgery, Section, Cholecystectomy, Coronary Bypass/CABG, Heart Catheterization, Hysterectomy, Tonsillectomy Additional Past Surgical History / Comment(s): A 2 vessel CABG in 1996, bilateral carpal tunnel release, lap band, L eye laser surgery, Past Anesthesia/Blood Transfusion Reactions: No Reported Reaction Past Psychological History: Depression Additional Psychological History / Comment(s): Pt resides with her son only now, her brother from [place] 02/27/22. Pt does not drive d/t vision problems, her son takes her to [employer]. She states she is able to manage her own medictions. She uses no assistive device. She states she has home oxygen now. She has no home care. They own a dog. Smoking Status: Never smoker Past Alcohol Use History: None Reported Additional Past Alcohol Use History / Comment(s): Patient is a lifelong nonsmoker. Past Drug Use History: None Reported - Past Family History Father Family Medical History: Cancer, Coronary Artery Disease (CAD), Diabetes Mellitus Additional Family Medical History / Comment(s): Prostate cancer Mother Family Medical History: Cancer Additional Family Medical History / Comment(s): Bone cancer. Medications and Allergies Home Medications Medication Instructions Recorded Confirmed Type Atorvastatin [Lipitor] 40 mg PO HS@209908/10/16 05/08/22 History Isosorbide Mononitrate [Isosorbide 30 mg PO DAILY@0900 08/10/16 05/08/22 History Mononitrate ER] Levothyroxine Sodium [Tirosint] 50 mcg PO DAILY@0600 08/10/16 05/08/22 History Oxybutynin Chloride 5 mg PO BID@899,209908/10/16 05/08/22 History Apixaban [Eliquis] 5 mg PO BID@0900,209904/12/22 05/08/22 History Metoprolol Tartrate [Lopressor] 50 mg PO TID@09,13,21 04/12/22 05/08/22 History Mirtazapine [Remeron] 15 mg PO HS@209904/12/22 05/08/22 History Gabapentin [Neurontin] 300 mg PO BID@09,2099 #6 cap 04/20/22 05/08/22 Rx SILVER sulfADIAZINE CREAM 1 applic TOPICAL DAILY each 04/20/22 05/08/22 Rx [Silvadene Cream] Acetaminophen Tab [Tylenol] 650 mg PO Q6H PRN 05/08/22 05/08/22 History Docusate [Colace] 100 mg PO DAILY@0900 05/08/22 05/08/22 History Furosemide [Lasix] 40 mg PO DAILY@0600 05/08/22 05/08/22 History Insulin Glargine-Yfgn [Semglee 50 units SQ DAILY@0900 05/08/22 05/08/22 History (Yfgn) Pen] Insulin Lispro [humaLOG Kwikpen] 5 unit SQ AC-TID@,,05/08/22 05/08/22 History Insulin Lispro [humaLOG Kwikpen] See Protocol SQ ACHS@,,,05/08/22 History Omeprazole 20 mg PO DAILY@0600 05/08/22 05/08/22 History Potassium Chloride ER [K-Dur 20] 20 meq PO DAILY@0900 05/08/22 05/08/22 History Allergies Allergy/AdvReac Type Severity Reaction Status Date / Time ibuprofen [From Motrin] Allergy Rash/Hives Verified 05/08/22 14:23 Penicillins Allergy Anaphylaxis Verified 05/08/22 14:23 Physical Exam Vitals: Vital Signs Temp Pulse Pulse Resp BP BP Pulse Ox 05/09/22 04:00 97.1 F L 80 16 103/52 97 05/09/22 02:00 16 05/09/22 00:17 97.4 F L 72 16 128/64 96 05/08/22 20:00 16 05/08/22 19:54 97.5 F L 79 16 132/67 97 05/08/22 17:18 18 05/08/22 17:17 97.5 F L 77 16 147/78 92 L 05/08/22 16:57 98 F 75 16 135/68 98 05/08/22 16:24 98 F 75 16 149/59 99 05/08/22 15:48 98 F 78 16 149/59 98 05/08/22 15:45 98 F 77 16 119/53 100 05/08/22 15:28 98 F 75 16 107/49 98 05/08/22 15:20 98 F 70 16 125/63 100 05/08/22 13:00 68 16 136/90 98 05/08/22 12:01 98.5 F 68 16 145/85 98 05/08/22 11:16 98 F 89 16 127/58 100 Intake and Output 05/08/22 05/09/22 05/09/22 22:59 06:59 14:59 Intake Total 281 Output Total 1300 Balance 281 -1300 Intake: Blood Product 281 Rc Pheresis 2 As3 Unit 281 [id number] Output: Urine 1300 Other: Voiding Method External Catheter External Catheter Weight 136.078 kg - Constitutional General appearance: no acute distress - Respiratory Respiratory: bilateral: diminished, rales - Cardiovascular Rhythm: irregularly irregular Heart sounds: normal: S1, S2 Abnormal Heart Sounds: systolic murmur Results 05/08/22 12:00 05/08/22 12:00 Cardiac Enzymes 05/08/22 05/08/22 Range/Units 12:00 12:00 AST 16 (14-36) U/L Troponin I <0.012 (0.000-0.034) ng/mL Coagulation 05/08/22 Range/Units 12:00 PT 12.0 (9.0-12.0) sec APTT 25.7 (22.0-30.0) sec CBC 05/08/22 Range/Units 12:00 WBC 5.5 (3.8-10.6) k/uL RBC 2.44 L (3.80-5.40) m/uL Hgb 6.7 L* (11.4-16.0) gm/dL Hct 22.3 L (34.0-46.0) % Plt Count 175 (150-450) k/uL Comprehensive Metabolic Panel 05/08/22 Range/Units 12:00 Sodium 138 (137-145) mmol/L Potassium 5.4 H (3.5-5.1) mmol/L Chloride 93 L (98-107) mmol/L Carbon Dioxide 39 H (22-30) mmol/L BUN 43 H (7-17) mg/dL Creatinine 1.13 H (0.52-1.04) mg/dL Glucose 219 H (74-99) mg/dL Calcium 8.7 (8.4-10.2) mg/dL AST 16 (14-36) U/L ALT 13 (4-34) U/L Alkaline Phosphatase 84 (38-126) U/L Total Protein 6.1 L (6.3-8.2) g/dL Albumin 3.0 L (3.5-5.0) g/dL Current Medications Generic Name Dose Route Start Last Admin Trade Name Freq PRN Reason Stop Dose Admin Acetaminophen 650 mg 05/08/22 16:03 Acetaminophen Tab 325 Mg Tab PO Q6H PRN Pain Atorvastatin Calcium 40 mg 05/08/22 21:00 05/08/22 20:23 Atorvastatin 40 Mg Tab PO 40 mg HS@2100 LD Administration Dextrose/Water 25 ml 05/08/22 20:02 Dextrose 50% Syringe 50 Ml IVP PER PROTOCOL PRN Hypoglycemia Protocol Dextrose/Water 50 ml 05/08/22 20:02 Dextrose 50% Syringe 50 Ml IVP PER PROTOCOL PRN Hypoglycemia Protocol Docusate Sodium 100 mg 05/09/22 09:00 Docusate 100 Mg Cap PO DAILY@09 [facility] Furosemide 20 mg 05/09/22 00:00 05/09/22 00:12 Furosemide 10 Mg/Ml 2 Ml Vial IV 20 mg Q8HR LD Administration Gabapentin 300 mg 05/08/22 21:00 05/08/22 20:23 Gabapentin 300 Mg Cap PO 300 mg BID@0900,2099 [facility] Administration Insulin Aspart 0 unit 05/08/22 21:00 05/08/22 20:23 Insulin Aspart (Novolog) 100 Unit/Ml Vial SQ 1 unit ACHS LD Administration Protocol Insulin Detemir 50 unit 05/09/22 07:00 Insulin Detemir (Levemir) 100 Unit/Ml Syr SQ DAILY@0700 [facility] Isosorbide Mononitrate 30 mg 05/09/22 09:00 Isosorbide Mononitrate Er 30 Mg Tab.Er.24h PO DAILY@0900 [facility] Levothyroxine Sodium 50 mcg 05/09/22 06:00 05/09/22 05:47 Levothyroxine 50 Mcg Tab PO 50 mcg DAILY@0600 [facility] Administration Metoprolol Tartrate 50 mg 05/08/22 21:00 05/08/22 20:23 Metoprolol Tartrate 50 Mg Tab PO 50 mg TID@ [facility] Administration Mirtazapine 15 mg 05/08/22 21:00 05/08/22 20:23 Mirtazapine 15 Mg Tab PO 15 mg HS@2100 LD Administration Oxybutynin Chloride 5 mg 05/08/22 21:00 05/08/22 20:23 Oxybutynin Chloride 5 Mg Tab PO 5 mg BID@0900,2100 LD Administration Pantoprazole Sodium 40 mg 05/09/22 06:00 05/09/22 05:47 Pantoprazole 40 Mg Tablet PO 40 mg DAILY@0600 LD Administration Potassium Chloride 20 meq 05/09/22 09:00 Potassium Chloride Er 20 Meq Tab.Er PO DAILY@0900 LD Intake and Output 05/08/22 05/09/22 05/09/22 22:59 06:59 14:59 Intake Total 281 Output Total 1300 Balance 281 -1300 Intake: Blood Product 281 Rc Pheresis 2 As3 Unit 281 [id number] Output: Urine 1300 Other: Voiding Method External Catheter External Catheter Weight 136.078 kg 05/08/22 12:00 05/08/22 12:00 Assessment and Plan Assessment: Assessment Heart failure with preserved ejection fraction was evidence of right and left heart failure Lower extremities edema secondary to the above Permanent atrial fibrillation was controlled heart rate Anemia to be further investigated and rule out blood loss anemia Coronary artery disease with prior revascularization Multiple comorbid conditions Plan Continue the current medical regimen Hold anticoagulation at this point to the anemia further investigated No need to repeat the echo in the light of recent echocardiogram Continue IV Lasix for at least additional 24 hours Continue monitoring the kidney function and electrolytes Follow-up with the patient
[2022-05-09] MEDS: INSULIN ASPART (NovoLOG) 100 UNIT/ML VIAL SQ SCH ×4 (08:03→20:06)
[2022-05-09] MEDS: OXYBUTYNIN CHLORIDE 5 MG TAB PO SCH ×2 (08:04→20:06)
[2022-05-09] MEDS: INSULIN DETEMIR (LEVEMIR) 100 UNIT/ML SYR SQ SCH (08:04)
[2022-05-09] MEDS: METOPROLOL TARTRATE 50 MG TAB PO SCH ×3 (08:04→20:06)
[2022-05-09] MEDS: GABAPENTIN 300 MG CAP PO SCH ×2 (08:04→20:06)
[2022-05-09] MEDS: ISOSORBIDE MONONITRATE ER 30 MG TAB.ER.24H PO SCH (08:04)
[2022-05-09] MEDS: DOCUSATE 100 MG CAP PO SCH (08:04)
[2022-05-09] MEDS: POTASSIUM CHLORIDE ER 20 MEQ TAB.ER PO SCH (08:04)
[2022-05-09 10:10] LABS: Anisocytosis Slight; Basophils % (A) 0 %; Eosinophils # (A) 0.2 k/uL (0-0.7); Eosinophils % (A) 4 %; HCT 24.1 % (34.0-46.0); HGB 7.1 gm/dL (11.4-16.0); Hypochromasia Marked; Lymphocytes # (A) 0.8 k/uL (1.0-4.8); Lymphocytes % (A) 14 %; MCH 27.4 pg (25.0-35.0); MCHC 29.4 g/dL (31.0-37.0); Mean Platelet Volume 8.5; Monocytes # (A) 0.3 k/uL (0-1.0); Monocytes % (A) 5 %; Neutrophils % (A) 75 %; Platelet Count 180 k/uL (150-450); RBC 2.59 m/uL (3.80-5.40); RDW 17.2 % (11.5-15.5); WBC 5.3 k/uL (3.8-10.6)
[2022-05-09 10:25] LABS: Magnesium 1.8 mg/dL (1.6-2.3); Potassium 4.9 mmol/L (3.5-5.1)
--- NOTE | 2022-05-09 10:37 | P.GSCN ---
History of Present Illness Consult date: 05/09/22 Reason for Consult: Anemia History of present illness: Is a 72-year-old female with history of anemia. Patient states that she may have had some melanotic stools several weeks ago. She denies any significant rectal bleeding. Past Medical History Past Medical History: Atrial Fibrillation, Coronary Artery Disease (CAD), Diabetes Mellitus, Eye Disorder, Hyperlipidemia, Hypertension, Osteoarthritis (OA), Pneumonia, Renal Disease, Sleep Apnea/CPAP/BIPAP, Thyroid Disorder Additional Past Medical History / Comment(s): Pt recently admitted to [facility] on 02/12/22 with covic pneumonia/sepsis, acute hypoxic respiratory failure/now on home oxygen ATC, new A fib with RVR. Other hx: IDDM type II, neuropathy bilateral feet, L eye retinal bleed/lasik eye surgery, R eye cataract, julian ateral eye macular degeneration/gets injections/poor vision, CKD stage III, anemia, UTI/sepsis, bilateral leg lymphedema/currently has "rash" R lower leg/one spot on L lower leg, FLORES/does not have cpap machine at this time, diverticulitis, gout, chronic back pain, rheumatic fever, hypothyroid. History of Any Multi-Drug Resistant Organisms: None Reported Past Surgical History: Bariatric Surgery, Section, Cholecystectomy, Coronary Bypass/CABG, Heart Catheterization, Hysterectomy, Tonsillectomy Additional Past Surgical History / Comment(s): A 2 vessel CABG in 1996, bilateral carpal tunnel release, lap band, L eye laser surgery, Past Anesthesia/Blood Transfusion Reactions: No Reported Reaction Past Psychological History: Depression Additional Psychological History / Comment(s): Pt resides with her son only now, her brother from [employer] 02/27/22. Pt does not drive d/t vision problems, her son takes her to [employer]. She states she is able to manage her own medictions. She uses no assistive device. She states she has home oxygen now. She has no home care. They own a dog. Smoking Status: Never smoker Past Alcohol Use History: None Reported Additional Past Alcohol Use History / Comment(s): Patient is a lifelong nonsmoker. Past Drug Use History: None Reported - Past Family History Father Family Medical History: Cancer, Coronary Artery Disease (CAD), Diabetes Mellitus Additional Family Medical History / Comment(s): Prostate cancer Mother Family Medical History: Cancer Additional Family Medical History / Comment(s): Bone cancer. Medications and Allergies Home Medications Medication Instructions Recorded Confirmed Type Atorvastatin [Lipitor] 40 mg PO HS@209908/10/16 05/08/22 History Isosorbide Mononitrate [Isosorbide 30 mg PO DAILY@89908/10/16 05/08/22 History Mononitrate ER] Levothyroxine Sodium [Tirosint] 50 mcg PO DAILY@0608/10/16 05/08/22 History Oxybutynin Chloride 5 mg PO BID@899,209908/10/16 05/08/22 History Apixaban [Eliquis] 5 mg PO BID@899,209904/12/22 05/08/22 History Metoprolol Tartrate [Lopressor] 50 mg PO TID@04/12/22 05/08/22 History Mirtazapine [Remeron] 15 mg PO HS@209904/12/22 05/08/22 History Gabapentin [Neurontin] 300 mg PO BID@899,2099 #6 cap 04/20/22 05/08/22 Rx SILVER sulfADIAZINE CREAM 1 applic TOPICAL DAILY each 04/20/22 05/08/22 Rx [Silvadene Cream] Acetaminophen Tab [Tylenol] 650 mg PO Q6H PRN 05/08/22 05/08/22 History Docusate [Colace] 100 mg PO DAILY@89905/08/22 05/08/22 History Furosemide [Lasix] 40 mg PO DAILY@59905/08/22 05/08/22 History Insulin Glargine-Yfgn [Semglee 50 units SQ DAILY@89905/08/22 05/08/22 History (Yfgn) Pen] Insulin Lispro [humaLOG Kwikpen] 5 unit SQ AC-TID@,,05/08/22 05/08/22 History Insulin Lispro [humaLOG Kwikpen] See Protocol SQ ACHS@,,,05/08/22 05/08/22 History Omeprazole 20 mg PO DAILY@0600 05/08/22 05/08/22 History Potassium Chloride ER [K-Dur 20] 20 meq PO DAILY@0900 05/08/22 05/08/22 History Allergies Allergy/AdvReac Type Severity Reaction Status Date / Time ibuprofen [From Motrin] Allergy Rash/Hives Verified 05/08/22 14:23 Penicillins Allergy Anaphylaxis Verified 05/08/22 14:23 Surgical - Exam Vital Signs Temp Pulse Resp BP Pulse Ox 98 F 89 16 127/58 100 05/08/22 11:16 05/08/22 11:16 05/08/22 11:16 05/08/22 11:16 05/08/22 11:16 Morbid obesity with BMI 55 - General well developed, well nourished, no distress - Eyes PERRL - ENT normal pinna - Neck no masses - Respiratory normal expansion - Cardiovascular Rhythm: regular - Abdomen Abdomen: soft, non tender Results - Labs 05/09/22 09:01 05/09/22 09:01 Abnormal Lab Results - Last 24 Hours (Table) 05/08/22 05/08/22 05/08/22 Range/Units 11:50 12:00 12:00 RBC 2.44 L (3.80-5.40) m/uL Hgb 6.7 L* (11.4-16.0) gm/dL Hct 22.3 L (34.0-46.0) % MCHC 30.2 L (31.0-37.0) g/dL RDW 17.3 H (11.5-15.5) % Lymphocytes # 0.7 L (1.0-4.8) k/uL Potassium 5.4 H (3.5-5.1) mmol/L Chloride 93 L (98-107) mmol/L Carbon Dioxide 39 H (22-30) mmol/L BUN 43 H (7-17) mg/dL Creatinine 1.13 H (0.52-1.04) mg/dL Glucose 219 H (74-99) mg/dL POC Glucose (mg/dL) (70-110) mg/dL Hemoglobin A1c (0.0-6.0) % Total Protein 6.1 L (6.3-8.2) g/dL Albumin 3.0 L (3.5-5.0) g/dL Crossmatch See Detail 05/08/22 05/08/22 05/08/22 Range/Units 12:00 17:47 20:12 RBC (3.80-5.40) m/uL Hgb (11.4-16.0) gm/dL Hct (34.0-46.0) % MCHC (31.0-37.0) g/dL RDW (11.5-15.5) % Lymphocytes # (1.0-4.8) k/uL Potassium (3.5-5.1) mmol/L Chloride (98-107) mmol/L Carbon Dioxide (22-30) mmol/L BUN (7-17) mg/dL Creatinine (0.52-1.04) mg/dL Glucose (74-99) mg/dL POC Glucose (mg/dL) 180 H 179 H (70-110) mg/dL Hemoglobin A1c 6.9 H (0.0-6.0) % Total Protein (6.3-8.2) g/dL Albumin (3.5-5.0) g/dL Crossmatch 05/09/22 05/09/22 05/09/22 Range/Units 07:02 09:01 09:01 RBC 2.59 L (3.80-5.40) m/uL Hgb 7.1 L (11.4-16.0) gm/dL Hct 24.1 L (34.0-46.0) % MCHC 29.4 L (31.0-37.0) g/dL RDW 17.2 H (11.5-15.5) % Lymphocytes # 0.8 L (1.0-4.8) k/uL Potassium (3.5-5.1) mmol/L Chloride 92 L (98-107) mmol/L Carbon Dioxide 39 H (22-30) mmol/L BUN 41 H (7-17) mg/dL Creatinine 1.11 H (0.52-1.04) mg/dL Glucose 170 H (74-99) mg/dL POC Glucose (mg/dL) 170 H (70-110) mg/dL Hemoglobin A1c (0.0-6.0) % Total Protein (6.3-8.2) g/dL Albumin (3.5-5.0) g/dL Crossmatch Diabetes panel 05/08/22 05/08/22 05/09/22 Range/Units 12:00 12:00 09:01 Sodium 138 140 (137-145) mmol/L Potassium 5.4 H 4.9 (3.5-5.1) mmol/L Chloride 93 L 92 L (98-107) mmol/L Carbon Dioxide 39 H 39 H (22-30) mmol/L BUN 43 H 41 H (7-17) mg/dL Creatinine 1.13 H 1.11 H (0.52-1.04) mg/dL Glucose 219 H 170 H (74-99) mg/dL Hemoglobin A1c 6.9 H (0.0-6.0) % Calcium 8.7 9.0 (8.4-10.2) mg/dL AST 16 (14-36) U/L ALT 13 (4-34) U/L Alkaline Phosphatase 84 (38-126) U/L Total Protein 6.1 L (6.3-8.2) g/dL Albumin 3.0 L (3.5-5.0) g/dL Calcium panel 05/08/22 05/09/22 Range/Units 12:00 09:01 Calcium 8.7 9.0 (8.4-10.2) mg/dL Albumin 3.0 L (3.5-5.0) g/dL Pituitary panel 05/08/22 05/09/22 Range/Units 12:00 09:01 Sodium 138 140 (137-145) mmol/L Potassium 5.4 H 4.9 (3.5-5.1) mmol/L Chloride 93 L 92 L (98-107) mmol/L Carbon Dioxide 39 H 39 H (22-30) mmol/L BUN 43 H 41 H (7-17) mg/dL Creatinine 1.13 H 1.11 H (0.52-1.04) mg/dL Glucose 219 H 170 H (74-99) mg/dL Calcium 8.7 9.0 (8.4-10.2) mg/dL Adrenal panel 05/08/22 05/09/22 Range/Units 12:00 09:01 Sodium 138 140 (137-145) mmol/L Potassium 5.4 H 4.9 (3.5-5.1) mmol/L Chloride 93 L 92 L (98-107) mmol/L Carbon Dioxide 39 H 39 H (22-30) mmol/L BUN 43 H 41 H (7-17) mg/dL Creatinine 1.13 H 1.11 H (0.52-1.04) mg/dL Glucose 219 H 170 H (74-99) mg/dL Calcium 8.7 9.0 (8.4-10.2) mg/dL Total Bilirubin 0.7 (0.2-1.3) mg/dL AST 16 (14-36) U/L ALT 13 (4-34) U/L Alkaline Phosphatase 84 (38-126) U/L Total Protein 6.1 L (6.3-8.2) g/dL Albumin 3.0 L (3.5-5.0) g/dL Assessment and Plan Assessment: Anemia, history of GI bleed Patient will undergo upper and lower endoscopy on Wednesday
[2022-05-09] MEDS ORDERED: PEG 3350 (236 GM/BTL) + LYTES 4,000 ML BOTTLE PO ONE (10:38)
[2022-05-09 11:53] LABS: Glucose,Whole Blood 244 mg/dL (70-110)
--- NOTE | 2022-05-09 12:45 | P.HPIM ---
History of Present Illness H&P Date: 05/09/22 Chief Complaint: Anemia This is a 72-year-old female admitted from [facility] subacute rehab with multifactorial anemia chronic hypoxic respiratory failure,wears 2.5 L nasal ca nnula O2 at home. Discharged 04/22/2022 to subacute rehab for acute on chronic CHF Recent COVID-19 pneumonia January 2022 with chronic fibrotic changes secondary to the Covid infection a chronic anemia with negative Hemoccult Right lower extremity cellulitis, it is since resolved at the [facility]. She was scheduled to receive 1 unit packed red blood cells when her hemoglobin 27.06 on Wednesday of this past week. Staff were unable to schedule an and send her to the ER yesterday for transfusion. She is admitted for this multifactorial anemia. She is anticoagulated on Elequis and his concerns of occult GI bleed. Currently Faith feels a improved since she received 1 unit packed red blood cells. She denies any significant chest pains or pressures. Has shortness of breath only when she exerts herself. She is quite morbidly obese. She denies any nausea vomiting. She does report dark stools since her Covid infection in January. Review of Systems All systems: negative Past Medical History Past Medical History: Atrial Fibrillation, Coronary Artery Disease (CAD), Diabetes Mellitus, Eye Disorder, Hyperlipidemia, Hypertension, Osteoarthritis (OA), Pneumonia, Renal Disease, Sleep Apnea/CPAP/BIPAP, Thyroid Disorder Additional Past Medical History / Comment(s): Pt recently admitted to [facility] on 02/12/22 with covic pneumonia/sepsis, acute hypoxic respiratory failure/now on home oxygen ATC, new A fib with RVR. Other hx: IDDM type II, neuropathy bilateral feet, L eye retinal bleed/lasik eye surgery, R eye cataract, bilateral eye macular degeneration/gets injections/poor vision, CKD stage III, anemia, UTI/sepsis, bilateral leg lymphedema/currently has "rash" R lower leg/one spot on L lower leg, FLORES/does not have cpap machine at this time, diverticulitis, gout, chronic back pain, rheumatic fever, hypothyroid. History of Any Multi-Drug Resistant Organisms: None Reported Past Surgical History: Bariatric Surgery, Section, Cholecystectomy, Coronary Bypass/CABG, Heart Catheterization, Hysterectomy, Tonsillectomy Additional Past Surgical History / Comment(s): A 2 vessel CABG in 1996, bilateral carpal tunnel release, lap band, L eye laser surgery, Past Anesthesia/Blood Transfusion Reactions: No Reported Reaction Past Psychological History: Depression Additional Psychological History / Comment(s): Pt resides with her son only now, her brother from [facility] 02/27/22. Pt does not drive d/t vision problems, her son takes her to appts. She states she is able to manage her own medictions. She uses no assistive device. She states she has home oxygen now. She has no home care. They own a dog. Smoking Status: Never smoker Past Alcohol Use History: None Reported Additional Past Alcohol Use History / Comment(s): Patient is a lifelong non smoker. Past Drug Use History: None Reported - Past Family History Father Family Medical History: Cancer, Coronary Artery Disease (CAD), Diabetes Mellitus Additional Family Medical History / Comment(s): Prostate cancer Mother Family Medical History: Cancer Additional Family Medical History / Comment(s): Bone cancer. Medications and Allergies Home Medications Medication Instructions Recorded Confirmed Type Atorvastatin [Lipitor] 40 mg PO HS@209908/10/16 05/08/22 History Isosorbide Mononitrate [Isosorbide 30 mg PO DAILY@0900 08/10/16 05/08/22 History Mononitrate ER] Levothyroxine Sodium [Tirosint] 50 mcg PO DAILY@0600 08/10/16 05/08/22 History Oxybutynin Chloride 5 mg PO BID@0900,209908/10/16 05/08/22 History Apixaban [Eliquis] 5 mg PO BID@0900,209904/12/22 05/08/22 History Metoprolol Tartrate [Lopressor] 50 mg PO TID@04/12/22 05/08/22 History Mirtazapine [Remeron] 15 mg PO HS@209904/12/22 05/08/22 History Gabapentin [Neurontin] 300 mg PO BID@899,2099 #6 cap 04/20/22 05/08/22 Rx SILVER sulfADIAZINE CREAM 1 applic TOPICAL DAILY each 04/20/22 05/08/22 Rx [Silvadene Cream] Acetaminophen Tab [Tylenol] 650 mg PO Q6H PRN 05/08/22 05/08/22 History Docusate [Colace] 100 mg PO DAILY@0900 05/08/22 05/08/22 History Furosemide [Lasix] 40 mg PO DAILY@0600 05/08/22 05/08/22 History Insulin Glargine-Yfgn [Semglee 50 units SQ DAILY@0900 05/08/22 05/08/22 History (Yfgn) Pen] Insulin Lispro [humaLOG Kwikpen] 5 unit SQ AC-TID@,,05/08/22 05/08/22 History Insulin Lispro [humaLOG Kwikpen] See Protocol SQ ACHS@,,,05/08/22 05/08/22 History Omeprazole 20 mg PO DAILY@0600 05/08/22 05/08/22 History Potassium Chloride ER [K-Dur 20] 20 meq PO DAILY@0900 05/08/22 05/08/22 History Allergies Allergy/AdvReac Type Severity Reaction Status Date / Time ibuprofen [From Motrin] Allergy Rash/Hives Verified 05/08/22 14:23 Penicillins Allergy Anaphylaxis Verified 05/08/22 14:23 Physical Exam Vitals: Vital Signs Temp Pulse Pulse Resp BP BP Pulse Ox 05/09/22 11:43 98.2 F 80 16 105/48 95 05/09/22 07:51 85 16 05/09/22 07:50 97.6 F 85 16 120/68 97 05/09/22 04:00 97.1 F L 80 16 103/52 97 05/09/22 02:00 16 05/09/22 00:17 97.4 F L 72 16 128/64 96 05/08/22 20:00 16 05/08/22 19:54 97.5 F L 79 16 132/67 97 05/08/22 17:18 18 05/08/22 17:17 97.5 F L 77 16 147/78 92 L 05/08/22 16:57 98 F 75 16 135/68 98 05/08/22 16:24 98 F 75 16 149/59 99 05/08/22 15:48 98 F 78 16 149/59 98 05/08/22 15:45 98 F 77 16 119/53 100 05/08/22 15:28 98 F 75 16 107/49 98 05/08/22 15:20 98 F 70 16 125/63 100 05/08/22 13:00 68 16 136/90 98 Intake and Output 05/08/22 05/09/22 05/09/22 22:59 06:59 14:59 Intake Total 281 240 Output Total 1300 700 Balance 281 -1300 -460 Intake: Oral 240 Blood Product 281 Rc Pheresis 2 As3 Unit 281 [id number] Output: Urine 1300 700 Other: Voiding Method External Catheter External Catheter External Catheter Weight 136.078 kg GENERAL: Morbidly obese female in no acute distress. She has oxygen at 2 L/m via nasal cannula HEAD: Atraumatic, normocephalic. EYES: Pupils equal round and reactive to light, extraocular movements intact, sclera anicteric, conjunctiva are normal. ENT:nares patent, oropharynx clear without exudates. Moist mucous membranes. NECK: Normal range of motion, supple without lymphadenopathy or JVD, no thyromegaly LUNGS: Breath sounds coarse with poor air exchange consistent with her underlying scarring no basilar crackles suggest acute CHF at this time. No wheezes rales or rhonchi. HEART: Regular rate and rhythm without rubs or gallops.S1S2 Normal, 1/6 systolic murmur noted at the right sternal border ABDOMEN: Soft, nontender, normoactive bowel sounds. No guarding, no rebound. No masses appreciated. EXTREMITIES: Normal range of motion, no pitting or edema. No clubbing or cyanosis. NEUROLOGICAL: Cranial nerves II through XII grossly intact. Normal speech, gait untestable PSYCH: Normal mood, normal affect. SKIN: Warm, Dry, normal turgor, no rashes or lesions noted. She has Jam wraps to lower extremities. Her cellulitis has since resolved this area one week ago Results CBC & Chem 7: 05/09/22 09:01 05/09/22 09:01 Labs: Abnormal Lab Results - Last 24 Hours (Table) 05/08/22 05/08/22 05/08/22 Range/Units 11:50 12:00 12:00 RBC (3.80-5.40) m/uL Hgb (11.4-16.0) gm/dL Hct (34.0-46.0) % MCHC (31.0-37.0) g/dL RDW (11.5-15.5) % Lymphocytes # (1.0-4.8) k/uL Potassium 5.4 H (3.5-5.1) mmol/L Chloride 93 L (98-107) mmol/L Carbon Dioxide 39 H (22-30) mmol/L BUN 43 H (7-17) mg/dL Creatinine 1.13 H (0.52-1.04) mg/dL Glucose 219 H (74-99) mg/dL POC Glucose (mg/dL) (70-110) mg/dL Hemoglobin A1c 6.9 H (0.0-6.0) % Total Protein 6.1 L (6.3-8.2) g/dL Albumin 3.0 L (3.5-5.0) g/dL Crossmatch See Detail 05/08/22 05/08/22 05/09/22 Range/Units 17:47 20:12 07:02 RBC (3.80-5.40) m/uL Hgb (11.4-16.0) gm/dL Hct (34.0-46.0) % MCHC (31.0-37.0) g/dL RDW (11.5-15.5) % Lymphocytes # (1.0-4.8) k/uL Potassium (3.5-5.1) mmol/L Chloride (98-107) mmol/L Carbon Dioxide (22-30) mmol/L BUN (7-17) mg/dL Creatinine (0.52-1.04) mg/dL Glucose (74-99) mg/dL POC Glucose (mg/dL) 180 H 179 H 170 H (70-110) mg/dL Hemoglobin A1c (0.0-6.0) % Total Protein (6.3-8.2) g/dL Albumin (3.5-5.0) g/dL Crossmatch 05/09/22 05/09/22 05/09/22 Range/Units 09:01 09:01 11:43 RBC 2.59 L (3.80-5.40) m/uL Hgb 7.1 L (11.4-16.0) gm/dL Hct 24.1 L (34.0-46.0) % MCHC 29.4 L (31.0-37.0) g/dL RDW 17.2 H (11.5-15.5) % Lymphocytes # 0.8 L (1.0-4.8) k/uL Potassium (3.5-5.1) mmol/L Chloride 92 L (98-107) mmol/L Carbon Dioxide 39 H (22-30) mmol/L BUN 41 H (7-17) mg/dL Creatinine 1.11 H (0.52-1.04) mg/dL Glucose 170 H (74-99) mg/dL POC Glucose (mg/dL) 244 H (70-110) mg/dL Hemoglobin A1c (0.0-6.0) % Total Protein (6.3-8.2) g/dL Albumin (3.5-5.0) g/dL Crossmatch Chest x-ray: report reviewed Thrombosis Risk Factor Assmnt - DVT/VTE Prophylaxis DVT/VTE Prophylaxis: Mechanical Prophylaxis ordered, Contraindicated - See note (Anemia with possible GI bleed, recent cellulitis lower extremities) Assessment and Plan (1) Acute on chronic anemia Current Visit: No Status: Acute Code(s): D64.9 - ANEMIA, UNSPECIFIED SNOMED Code(s): 776082868 (2) Chronic diastolic (congestive) heart failure Current Visit: Yes Status: Acute Code(s): I50.32 - CHRONIC DIASTOLIC (CONGESTIVE) HEART FAILURE SNOMED Code(s): 686167927 (3) Atrial fibrillation Current Visit: No Status: Acute Code(s): I48.91 - UNSPECIFIED ATRIAL FIBRILLATION SNOMED Code(s): 60214510 (4) Coronary artery disease with history of coronary revascularization Current Visit: No Status: Acute Code(s): I25.10 - ATHSCL HEART DISEASE OF [place] CORONARY ARTERY W/O ANG PCTRS; Z98.61 - CORONARY ANGIOPLASTY STATUS SNOMED Code(s): 962972277 (5) History of hyperlipidemia Current Visit: No Status: Acute Code(s): Z86.39 - PERSONAL HISTORY OF ENDO, NUTRITIONAL AND METABOLIC DISEASE SNOMED Code(s): 402761715 (6) History of hypertension Current Visit: No Status: Acute Code(s): Z86.79 - PERSONAL HISTORY OF OTHER DISEASES OF THE CIRCULATORY SYSTEM SNOMED Code(s): 248322748 (7) History of hypothyroidism Current Visit: No Status: Acute Code(s): Z86.39 - PERSONAL HISTORY OF ENDO, NUTRITIONAL AND METABOLIC DISEASE SNOMED Code(s): 481537779 Plan: We will hold her Elizabeth at this time. She is received 1 unit of blood and 7.1. Due to her significant medical history, I will have him transfused another unit of blood. They will give 20 mg of Lasix IV push after the unit. We'll consult cardiology regarding her CHF and other chronic medical problems and the need for long-term anticoagulation. We'll consult general surgery for possible EGD colonoscopy due to her ongoing anemia. Repeat labs in a.m. She'll be reevaluated next 24 hours.
[2022-05-09 17:15] LABS: Glucose,Whole Blood 195 mg/dL (70-110)
[2022-05-09 19:56] LABS: Glucose,Whole Blood 189 mg/dL (70-110)
[2022-05-09] MEDS: MIRTAZAPINE 15 MG TAB PO SCH (20:06)
[2022-05-09] MEDS: ATORVASTATIN 40 MG TAB PO SCH (20:06)
[2022-05-10] MEDS: FUROSEMIDE 10 MG/ML 2 ML VIAL IV SCH ×3 (00:49→16:51)
[2022-05-10] MEDS: LEVOTHYROXINE 50 MCG TAB PO SCH (05:56)
[2022-05-10] MEDS: PANTOPRAZOLE 40 MG TABLET PO SCH (05:56)
[2022-05-10 06:45] LABS: Glucose,Whole Blood 107 mg/dL (70-110)
[2022-05-10] MEDS: INSULIN DETEMIR (LEVEMIR) 100 UNIT/ML SYR SQ SCH (06:47)
[2022-05-10] MEDS: INSULIN ASPART (NovoLOG) 100 UNIT/ML VIAL SQ SCH ×4 (06:48→20:22)
--- NOTE | 2022-05-10 07:07 | P.PN ---
Subjective Progress Note Date: 05/10/22 Principal diagnosis: Heart failure with preserved ejection fraction The patient is a pleasant 72-year-old female patient who sees Dr. Weller irregularly with a past medical history significant for permanent atrial fibrillation as well as coronary artery disease with prior stenting as well as heart failure with preserved ejection fraction and also aortic stenosis and also hypertension and dyslipidemia. We consulted to see the patient mainly because off congestive heart failure. The patient somewhat is a poor historian. Apparently the patient was initially facility was getting rehab for bilateral lower extremity weakness. She was brought to the hospital because she was more short of breath. The patient reports mild increase in the shortness of breath most noticeable symptoms for her is increasing in the lower extremities edema. Further investigation was advised and the patient was brought to the emergency department. She was found to be anemic with a hemoglobin below 7. She was receiving oral anticoagulation for the atrial fibrillation. She reports no symptoms of chest pain or chest discomfort and no dizziness or lightheadedness and no feeling of heart racing or fluttering and no presyncope or syncope. When she was seen and evaluated this morning she is in mild heart failure with diminished breathing sounds bilaterally and bilateral rhonchi and also she does have bilateral lower extremities edema and her feet are currently wrapped because of edema. She stated that the edema has improved after she was given Lasix. She stated that she has been compliant with her medications including diuretics. She was admitted to the hospital recently with heart failure and she underwent an echo which revealed low-normal left ventricle systolic function wit h evidence of mild aortic stenosis but otherwise no significant valvular abnormalities. May 102021 The patient was seen this morning. Overall she is feeling better. The shortness of breath is better. The lower extremities edema has improved significantly. She has been diuresing very well on the current dose of Lasix IV. She is in process of having a workup regarding the anemia and she was seen by the GI/surgical service for possible upper and lower endoscopy to be performed the next 24 hours. No blood work from the morning to assess/rule out GI bleeding. Objective - Vital Signs Vital signs: Vital Signs Temp 97.8 F 05/10/22 04:00 Pulse 79 05/10/22 04:00 Resp 16 05/10/22 04:00 BP 122/68 05/10/22 04:00 Pulse Ox 97 05/10/22 04:00 FiO2 Intake & Output 05/09/22 05/10/22 05/10/22 18:59 06:59 18:59 Intake Total 550 Output Total 1200 1400 Balance -650 -1400 Intake: Oral 240 Blood Product 310 Rc As-1 Unit 310 [id number] Output: Urine 1200 1400 Other: Voiding Method External Catheter External Catheter - Constitutional General appearance: Present: no acute distress - Respiratory Respiratory: bilateral: diminished - Cardiovascular Rhythm: irregularly irregular Heart sounds: normal: S1, S2 Abnormal Heart Sounds: Present: systolic murmur - Labs CBC & Chem 7: 05/09/22 09:01 05/09/22 09:01 Labs: Abnormal Lab Results - Last 24 Hours (Table) 05/08/22 05/09/22 05/09/22 Range/Units 11:50 09:01 09:01 RBC 2.59 L (3.80-5.40) m/uL Hgb 7.1 L (11.4-16.0) gm/dL Hct 24.1 L (34.0-46.0) % MCHC 29.4 L (31.0-37.0) g/dL RDW 17.2 H (11.5-15.5) % Lymphocytes # 0.8 L (1.0-4.8) k/uL Chloride 92 L (98-107) mmol/L Carbon Dioxide 39 H (22-30) mmol/L BUN 41 H (7-17) mg/dL Creatinine 1.11 H (0.52-1.04) mg/dL Glucose 170 H (74-99) mg/dL POC Glucose (mg/dL) (70-110) mg/dL Crossmatch See Detail 05/09/22 05/09/22 05/09/22 Range/Units 11:43 16:53 19:55 RBC (3.80-5.40) m/uL Hgb (11.4-16.0) gm/dL Hct (34.0-46.0) % MCHC (31.0-37.0) g/dL RDW (11.5-15.5) % Lymphocytes # (1.0-4.8) k/uL Chloride (98-107) mmol/L Carbon Dioxide (22-30) mmol/L BUN (7-17) mg/dL Creatinine (0.52-1.04) mg/dL Glucose (74-99) mg/dL POC Glucose (mg/dL) 244 H 195 H 189 H (70-110) mg/dL Crossmatch Assessment and Plan Assessment: Assessment Heart failure with preserved ejection fraction was evidence of right and left heart failure Lower extremities edema secondary to the above. The edema has improved Permanent atrial fibrillation was controlled heart rate Anemia to be further investigated and rule out blood loss anemia Coronary artery disease with prior revascularization Multiple comorbid conditions Plan Continue the current medical regimen Hold anticoagulation at this point to the anemia further investigated No need to repeat the echo in the light of recent echocardiogram Continue IV Lasix for at least additional 24 hours Continue monitoring the kidney function and electrolytes Follow-up with the patient
[2022-05-10] MEDS: METOPROLOL TARTRATE 50 MG TAB PO SCH ×3 (08:04→20:28)
[2022-05-10] MEDS: ISOSORBIDE MONONITRATE ER 30 MG TAB.ER.24H PO SCH (08:04)
[2022-05-10] MEDS: DOCUSATE 100 MG CAP PO SCH (08:04)
[2022-05-10] MEDS: OXYBUTYNIN CHLORIDE 5 MG TAB PO SCH ×2 (08:04→20:28)
[2022-05-10] MEDS: GABAPENTIN 300 MG CAP PO SCH ×2 (08:04→20:28)
[2022-05-10] MEDS: POTASSIUM CHLORIDE ER 20 MEQ TAB.ER PO SCH (08:04)
[2022-05-10 10:23] LABS: Anisocytosis Slight; Basophils % (A) 1 %; Eosinophils # (A) 0.2 k/uL (0-0.7); Eosinophils % (A) 4 %; HCT 25.9 % (34.0-46.0); HGB 7.7 gm/dL (11.4-16.0); Hypochromasia Marked; Lymphocytes # (A) 0.7 k/uL (1.0-4.8); Lymphocytes % (A) 12 %; MCH 26.9 pg (25.0-35.0); MCHC 29.6 g/dL (31.0-37.0); Mean Platelet Volume 8.5; Monocytes # (A) 0.3 k/uL (0-1.0); Monocytes % (A) 5 %; Neutrophils # (A) 4.2 k/uL (1.3-7.7); Neutrophils % (A) 76 %; Platelet Count 183 k/uL (150-450); Poikilocytosis Slight; RBC 2.85 m/uL (3.80-5.40); RDW 17.3 % (11.5-15.5); WBC 5.5 k/uL (3.8-10.6)
[2022-05-10] MEDS ORDERED: PEG 3350 (236 GM/BTL) + LYTES 4,000 ML BOTTLE PO ONE (10:30)
[2022-05-10 10:32] LABS: Calcium 8.6 mg/dL (8.4-10.2); Magnesium 1.7 mg/dL (1.6-2.3); Potassium 4.5 mmol/L (3.5-5.1)
[2022-05-10 11:44] LABS: Glucose,Whole Blood 199 mg/dL (70-110)
--- NOTE | 2022-05-10 12:07 | P.PN ---
Subjective This is a 72-year-old female admitted from [facility] subacute rehab with multifactorial anemia chronic hypoxic respiratory failure,wears 2.5 L nasal cannula O2 at home. Discharged 04/22/2022 to subacute rehab for acute on chronic CHF Recent COVID-19 pneumonia January 2022 with chronic fibrotic changes secondary to the Covid infection a chronic anemia with negative Hemoccult Right lower extremity cellulitis, it is since resolved at the [facility]. She was scheduled to receive 1 unit packed red blood cells when her hemoglobin 27.06 on Wednesday of this past week. Staff were unable to schedule an and send her to the ER yesterday for transfusion. She is admitted for this multifactorial anemia. She is anticoagulated on Elequis and his concerns of occult GI bleed. Currently Faith feels a improved since she received 1 unit packed red blood cells. She denies any significant chest pains or pressures. Has shortness of breath only when she exerts herself. She is quite morbidly obese. She denies any nausea vomiting. She does report dark stools since her Covid infection in January. May 10, 2022: patient is resting comfortably in her room. She is status post her second unit of packed red blood cells. She is feeling better.Vital signs including blood pressure and temperature have remained stable. She remains on 2 L of oxygen via nasal cannula.Chemistries this morning showed a BUN of 36 [place] creatinine of 1.12. Her CO2 is 41. Glucose has remained stable.She remains on IV Lasix for diuresis due to congestive heart failure. She is atrial fibrillation. Her anticoagulation is on cold for concerns of G.I. bleeding. She has a history of a laparoscopic banding procedure. Objective - Vital Signs Vital signs: Vital Signs Temp 98.2 F 05/10/22 07:59 Pulse 83 05/10/22 08:01 Resp 16 05/10/22 08:01 BP 125/63 05/10/22 07:59 Pulse Ox 95 05/10/22 07:59 FiO2 Intake & Output 05/09/22 05/10/22 05/10/22 18:59 06:59 18:59 Intake Total 550 250 Output Total 1200 1400 700 Balance -650 -1400 -450 Intake: IV 10 Invasive Line 1 10 Oral 240 240 Blood Product 310 Rc As-1 Unit 310 [id number] Output: Urine 1200 1400 700 Other: Voiding Method External Catheter External Catheter External Catheter - Exam GENERAL: Morbidly obese female in no acute distress. She has oxygen at 2 L/m via nasal cannula NECK: Normal range of motion, supple without lymphadenopathy or JVD, no thyromegaly LUNGS: Breath sounds coarse with poor air exchange consistent with her underlying scarring no basilar crackles suggest acute CHF at this time. No wheezes rales or rhonchi. HEART: Regular rate and rhythm without rubs or gallops.S1S2 Normal, 1/6 systolic murmur noted at the right sternal border ABDOMEN: Soft, nontender, normoactive bowel sounds. No guarding, no rebound. No masses appreciated. EXTREMITIES: Normal range of motion, no pitting or edema. No clubbing or cyanosis. NEUROLOGICAL: Cranial nerves II through XII grossly intact. Normal speech, gait untestable PSYCH: Normal mood, normal affect. SKIN: Warm, Dry, normal turgor, no rashes or lesions noted. She has Jam wraps to lower extremities. Her cellulitis has since resolved this area one week ago, There are no compression hose or wraps on her lower extremities today. - Labs CBC & Chem 7: 05/10/22 09:58 05/10/22 09:58 Labs: Abnormal Lab Results - Last 24 Hours (Table) 05/08/22 05/09/22 05/09/22 Range/Units 11:50 16:53 19:55 RBC (3.80-5.40) m/uL Hgb (11.4-16.0) gm/dL Hct (34.0-46.0) % MCHC (31.0-37.0) g/dL RDW (11.5-15.5) % Lymphocytes # (1.0-4.8) k/uL Chloride (98-107) mmol/L Carbon Dioxide (22-30) mmol/L BUN (7-17) mg/dL Creatinine (0.52-1.04) mg/dL Glucose (74-99) mg/dL POC Glucose (mg/dL) 195 H 189 H (70-110) mg/dL Crossmatch See Detail 05/10/22 05/10/22 05/10/22 Range/Units 09:58 09:58 11:40 RBC 2.85 L (3.80-5.40) m/uL Hgb 7.7 L (11.4-16.0) gm/dL Hct 25.9 L (34.0-46.0) % MCHC 29.6 L (31.0-37.0) g/dL RDW 17.3 H (11.5-15.5) % Lymphocytes # 0.7 L (1.0-4.8) k/uL Chloride 90 L (98-107) mmol/L Carbon Dioxide 41 H* (22-30) mmol/L BUN 36 H (7-17) mg/dL Creatinine 1.12 H (0.52-1.04) mg/dL Glucose 149 H (74-99) mg/dL POC Glucose (mg/dL) 199 H (70-110) mg/dL Crossmatch Assessment and Plan (1) Acute on chronic anemia Current Visit: No Status: Acute Code(s): D64.9 - ANEMIA, UNSPECIFIED SNOMED Code(s): 990980859 (2) Chronic diastolic (congestive) heart failure Current Visit: Yes Status: Acute Code(s): I50.32 - CHRONIC DIASTOLIC (CONGESTIVE) HEART FAILURE SNOMED Code(s): 306519057 (3) Atrial fibrillation Current Visit: No Status: Acute Code(s): I48.91 - UNSPECIFIED ATRIAL FIBRILLATION SNOMED Code(s): 92797450 (4) Coronary artery disease with history of coronary revascularization Current Visit: No Status: Acute Code(s): I25.10 - ATHSCL HEART DISEASE OF [place] CORONARY ARTERY W/O ANG PCTRS; Z98.61 - CORONARY ANGIOPLASTY STATUS SNOMED Code(s): 586892797 (5) History of hyperlipidemia Current Visit: No Status: Acute Code(s): Z86.39 - PERSONAL HISTORY OF ENDO, NUTRITIONAL AND METABOLIC DISEASE SNOMED Code(s): 900806777 (6) History of hypertension Current Visit: No Status: Acute Code(s): Z86.79 - PERSONAL HISTORY OF OTHER DISEASES OF THE CIRCULATORY SYSTEM SNOMED Code(s): 664273174 (7) History of hypothyroidism Current Visit: No Status: Acute Code(s): Z86.39 - PERSONAL HISTORY OF ENDO, NUTRITIONAL AND METABOLIC DISEASE SNOMED Code(s): 370126435 Plan: continue to hold her Elequis at this time. She is received 2 unit of blood and hb 7.7. Upcoming EGD/colonoscopy tomorrow with General surgery. Continue her diuresis per cardiology toprol for heart rate control. She will continue her other medication she has ordered. Repeat labs in a.m. She'll be reevaluated next 24 hours.
--- NOTE | 2022-05-10 12:45 | P.PN ---
Progress Note - Text Progress Note Date: 05/10/22 Patient's hemoglobin is stable at 7.7. She denies abdominal pain. On exam vital signs are stable. Abdomen soft. Patient scheduled for upper and lower endoscopy in the a.m.
[2022-05-10 16:35] LABS: Glucose,Whole Blood 144 mg/dL (70-110)
[2022-05-10 20:17] LABS: Glucose,Whole Blood 118 mg/dL (70-110)
[2022-05-10] MEDS: MIRTAZAPINE 15 MG TAB PO SCH (20:28)
[2022-05-10] MEDS: ATORVASTATIN 40 MG TAB PO SCH (20:28)
[2022-05-11] MEDS: FUROSEMIDE 10 MG/ML 2 ML VIAL IV SCH ×4 (00:29→23:35)
[2022-05-11] MEDS: LEVOTHYROXINE 50 MCG TAB PO SCH (05:29)
[2022-05-11] MEDS: PANTOPRAZOLE 40 MG TABLET PO SCH (05:30)
[2022-05-11 05:51] LABS: Glucose,Whole Blood 124 mg/dL (70-110)
[2022-05-11] MEDS ORDERED: ACETAMINOPHEN TAB 325 MG TAB PO PRN (07:55)
[2022-05-11] MEDS: ACETAMINOPHEN TAB 325 MG TAB PO PRN ×2 (08:11→20:47)
[2022-05-11 08:59] LABS: Anisocytosis Slight; Basophils % (A) 0 %; Eosinophils # (A) 0.2 k/uL (0-0.7); Eosinophils % (A) 2 %; HCT 27.1 % (34.0-46.0); HGB 8.4 gm/dL (11.4-16.0); Hypochromasia Marked; Lymphocytes # (A) 0.8 k/uL (1.0-4.8); Lymphocytes % (A) 10 %; MCH 28.1 pg (25.0-35.0); MCV 90.8 fL (80.0-100.0); Mean Platelet Volume 8.4; Monocytes # (A) 0.4 k/uL (0-1.0); Monocytes % (A) 6 %; Neutrophils # (A) 6.2 k/uL (1.3-7.7); Neutrophils % (A) 80 %; Platelet Count 168 k/uL (150-450); RBC 2.99 m/uL (3.80-5.40); RDW 17.1 % (11.5-15.5); WBC 7.8 k/uL (3.8-10.6)
[2022-05-11] MEDS: INSULIN ASPART (NovoLOG) 100 UNIT/ML VIAL SQ SCH ×4 (09:40→20:46)
[2022-05-11 09:44] LABS: Calcium 8.7 mg/dL (8.4-10.2); Magnesium 1.8 mg/dL (1.6-2.3); Potassium 4.3 mmol/L (3.5-5.1)
--- NOTE | 2022-05-11 11:40 | P.PN ---
Subjective The patient is a pleasant 72-year-old female patient who sees Dr. Weller in the office. Patient with a past medical history significant for permanent atrial fibrillation, coronary artery disease with prior stenting, heart failure with preserved ejection fraction, and aortic stenosis, hypertension and dyslipidemia. We are consulted for congestive heart failure. The patient somewhat is a poor historian. Apparently the patient was initially facility was getting rehab for bilateral lower extremity weakness. She was brought to the hospital because she was more short of breath and increasing in the lower extremities edema. She was found to be anemic with a hemoglobin below 7. She was receiving oral anticoagulation for the atrial fibrillation. She reports no symptoms of chest pain or chest discomfort and no dizziness or lightheadedness and no feeling of heart racing or fluttering and no presyncope or syncope. Patient was started on IV Lasix and is being worked up for her anemia Echo 04/07/2022- EF 4550 percent, moderate concentric LVH, severe pulmonary hypertension, mild aortic regurgitation, mild aortic stenosis, mean gradient of 14 mmHg. Severe tricuspid regurgitation RVSP 61mmHG. 05/11 Patient seen and examined at bedside, no acute distress. Her breathing has improved. She continues to be on IV Lasix. -634mL fluid balance over the past 24 hours. BUN 32 sCr 1.05 (1.12 yesterday). Hemoglobin is 8.4. GENERAL: In no acute distress. NECK: Supple without JVD or thyromegaly. LUNGS: Breath sounds crackles in the bases auscultation bilaterally. Respiration equal and unlabored. HEART: Regular rate and rhythm without murmurs, rubs or gallops. S1 and S2 heard. EXTREMITIES: Normal range of motion, no edema. No clubbing or cyanosis. Peripheral pulses intact. ASSESSMENT Acute on chronic heart failure with preserved ejection Permanent atrial fibrillation, on Eliquis outpatient on hold secondary to anemia Anemia s/p 2 units of PRBCs this admission Coronary artery disease s/p prior stenting Hypertension Dyslipidemia Mild aortic stenosis Severe pulmonary hypertension Severe tricuspid regurgitation PLAN Continue IV Lasix for additional 24 hours Monitor I/Os, daily weights, renal function Hold anticoagulation at this point to the anemia further investigated Further recommendations based on clinical course Nurse Practitioner note has been reviewed, I agree with a documented findings and plan of care. Patient was seen and examined. Objective - Vital Signs Vital signs: Vital Signs Temp 98.0 F 05/11/22 08:10 Pulse 74 05/11/22 08:10 Resp 18 05/11/22 08:10 BP 109/51 05/11/22 08:10 Pulse Ox 100 05/11/22 08:10 FiO2 35 05/11/22 08:26 Intake & Output 05/10/22 05/11/22 05/11/22 18:59 06:59 18:59 Intake Total 378 138 10 Output Total 700 450 Balance -322 -312 10 Intake: IV 20 20 10 Invasive Line 1 20 20 10 Oral 358 118 Output: Urine 700 450 Other: Voiding Method External Catheter External Catheter External Catheter # Voids 1 3 # Bowel Movements 6 - Labs CBC & Chem 7: 05/11/22 08:39 05/11/22 08:39 Labs: Abnormal Lab Results - Last 24 Hours (Table) 05/10/22 05/10/22 05/10/22 Range/Units 09:58 11:40 16:33 RBC (3.80-5.40) m/uL Hgb (11.4-16.0) gm/dL Hct (34.0-46.0) % RDW (11.5-15.5) % Lymphocytes # (1.0-4.8) k/uL Chloride 90 L (98-107) mmol/L Carbon Dioxide 41 H* (22-30) mmol/L BUN 36 H (7-17) mg/dL Creatinine 1.12 H (0.52-1.04) mg/dL Glucose 149 H (74-99) mg/dL POC Glucose (mg/dL) 199 H 144 H (70-110) mg/dL 05/10/22 05/11/22 05/11/22 Range/Units 20:16 05:50 08:39 RBC (3.80-5.40) m/uL Hgb (11.4-16.0) gm/dL Hct (34.0-46.0) % RDW (11.5-15.5) % Lymphocytes # (1.0-4.8) k/uL Chloride 91 L (98-107) mmol/L Carbon Dioxide 44 H* (22-30) mmol/L BUN 32 H (7-17) mg/dL Creatinine 1.05 H (0.52-1.04) mg/dL Glucose 105 H (74-99) mg/dL POC Glucose (mg/dL) 118 H 124 H (70-110) mg/dL 05/11/22 Range/Units 08:39 RBC 2.99 L (3.80-5.40) m/uL Hgb 8.4 L (11.4-16.0) gm/dL Hct 27.1 L (34.0-46.0) % RDW 17.1 H (11.5-15.5) % Lymphocytes # 0.8 L (1.0-4.8) k/uL Chloride (98-107) mmol/L Carbon Dioxide (22-30) mmol/L BUN (7-17) mg/dL Creatinine (0.52-1.04) mg/dL Glucose (74-99) mg/dL POC Glucose (mg/dL) (70-110) mg/dL
[2022-05-11 12:32] LABS: Glucose,Whole Blood 128 mg/dL (70-110)
[2022-05-11] MEDS: INSULIN DETEMIR (LEVEMIR) 100 UNIT/ML SYR SQ SCH (12:52)
[2022-05-11] MEDS: METOPROLOL TARTRATE 50 MG TAB PO SCH ×3 (12:53→20:46)
[2022-05-11] MEDS: DOCUSATE 100 MG CAP PO SCH (12:53)
[2022-05-11] MEDS: GABAPENTIN 300 MG CAP PO SCH ×2 (12:53→20:46)
[2022-05-11] MEDS: OXYBUTYNIN CHLORIDE 5 MG TAB PO SCH ×2 (12:53→20:45)
[2022-05-11] MEDS: ISOSORBIDE MONONITRATE ER 30 MG TAB.ER.24H PO SCH (12:53)
[2022-05-11] MEDS: POTASSIUM CHLORIDE ER 20 MEQ TAB.ER PO SCH (12:53)
[2022-05-11 16:25] LABS: % Iron Saturation 8.28 (12.00-45.00)
[2022-05-11 17:06] LABS: Glucose,Whole Blood 129 mg/dL (70-110)
--- NOTE | 2022-05-11 18:19 | P.PN ---
Subjective Progress Note Date: 05/11/22 Principal diagnosis: 72-year-old female well-known to my practice recently admitted from [facility] subacute rehab facility with anemia and chronic hypoxic respiratory failure currently using 2.5 L nasal O2 at home patient was discharged 04/22/2022 to subacute rehab for acute on chronic CHF recent COVID-19 pneumonia January 2022, chronic fibrin changes secondary to Coumadin infection and chronic anemia with Hemoccult. Patient had a second unit of packed red cells on 05/10/2022 was feeling better. Patient remained on 2 L reason nasal cannula. Patient under went EGD and colonoscopy earlier today Objective - Vital Signs Vital signs: Vital Signs Temp 98.0 F 05/11/22 15:56 Pulse 90 05/11/22 15:56 Resp 17 05/11/22 15:56 BP 121/61 05/11/22 15:56 Pulse Ox 94 L 05/11/22 15:56 FiO2 35 05/11/22 16:25 Intake & Output 05/10/22 05/11/22 05/11/22 18:59 06:59 18:59 Intake Total 378 138 20 Output Total 700 450 Balance -322 -312 20 Intake: IV 20 20 20 Invasive Line 1 20 20 20 Oral 358 118 Output: Urine 700 450 Other: Voiding Method External Catheter External Catheter External Catheter # Voids 1 3 # Bowel Movements 6 1 - Exam General: [Patient awake, alert and oriented times 3. Patient in no acute distress.] HEENT: [PERRL. EOMI. No pharyngeal erythema or exudate.] Neck: [No adenopathy.] Cardiac: [Heart regular in rate and rhythm. No S3. No S4. No clicks, rubs. No murmur.] Lungs: Patient has coarse breath sounds with poor air exchange Abdomen: [No mass. No organomegaly. Bowel sounds presnt and normoactive in all 4 quadrants.] Extremes: [No edema no cyanosis no claudication normal pulses] : Normal female genitalia Musculoskeletal: [No joint erythema, edema or tenderness.] Skin: [No rash.] Neurologic: [No lateralizing deficits. CN II - XII grossly intact.] Lymphatic: [No adenopathy.] - Labs CBC & Chem 7: 05/11/22 08:39 05/11/22 08:39 Labs: Abnormal Lab Results - Last 24 Hours (Table) 05/10/22 05/11/22 05/11/22 Range/Units 20:16 05:50 08:39 RBC (3.80-5.40) m/uL Hgb (11.4-16.0) gm/dL Hct (34.0-46.0) % RDW (11.5-15.5) % Lymphocytes # (1.0-4.8) k/uL Chloride 91 L (98-107) mmol/L Carbon Dioxide 44 H* (22-30) mmol/L BUN 32 H (7-17) mg/dL Creatinine 1.05 H (0.52-1.04) mg/dL Glucose 105 H (74-99) mg/dL POC Glucose (mg/dL) 118 H 124 H (70-110) mg/dL Iron 23 L (50-170) ug/dL % Saturation 8.28 L (12.00-45.00) Transferrin 201.0 L (204.0-354.0) mg/dL 05/11/22 05/11/22 05/11/22 Range/Units 08:39 11:53 16:45 RBC 2.99 L (3.80-5.40) m/uL Hgb 8.4 L (11.4-16.0) gm/dL Hct 27.1 L (34.0-46.0) % RDW 17.1 H (11.5-15.5) % Lymphocytes # 0.8 L (1.0-4.8) k/uL Chloride (98-107) mmol/L Carbon Dioxide (22-30) mmol/L BUN (7-17) mg/dL Creatinine (0.52-1.04) mg/dL Glucose (74-99) mg/dL POC Glucose (mg/dL) 128 H 129 H (70-110) mg/dL Iron (50-170) ug/dL % Saturation (12.00-45.00) Transferrin (204.0-354.0) mg/dL Assessment and Plan (1) Anemia Current Visit: Yes Status: Acute Code(s): D64.9 - ANEMIA, UNSPECIFIED SNOMED Code(s): 637111809 (2) Chronic diastolic (congestive) heart failure Current Visit: Yes Status: Acute Code(s): I50.32 - CHRONIC DIASTOLIC (CONGESTIVE) HEART FAILURE SNOMED Code(s): 282180826 (3) Pulmonary edema Current Visit: Yes Status: Acute Code(s): J81.1 - CHRONIC PULMONARY EDEMA SNOMED Code(s): 36789739 (4) Acute on chronic anemia Current Visit: No Status: Acute Code(s): D64.9 - ANEMIA, UNSPECIFIED SNOMED Code(s): 432305257 (5) Acute on chronic diastolic (congestive) heart failure Current Visit: No Status: Acute Code(s): I50.33 - ACUTE ON CHRONIC DIASTOLIC (CONGESTIVE) HEART FAILURE SNOMED Code(s): 659439576 (6) Atrial fibrillation Current Visit: No Status: Acute Code(s): I48.91 - UNSPECIFIED ATRIAL FIBRILLATION SNOMED Code(s): 77797531 (7) COVID Current Visit: No Status: Acute Code(s): U07.1 - COVID-19 SNOMED Code(s): 789276732 Plan: Patient underwent EGD colonoscopy today results pending Renal failure improving Persistent anemia chronic stable Sugars are currently stable Iron studies reviewed We will continue to follow closely Time with Patient: Greater than 30
[2022-05-11 20:00] LABS: Glucose,Whole Blood 224 mg/dL (70-110)
[2022-05-11] MEDS: ATORVASTATIN 40 MG TAB PO SCH (20:46)
[2022-05-11] MEDS: MIRTAZAPINE 15 MG TAB PO SCH (20:46)
[2022-05-12 06:08] LABS: Glucose,Whole Blood 145 mg/dL (70-110)
[2022-05-12] MEDS: INSULIN ASPART (NovoLOG) 100 UNIT/ML VIAL SQ SCH ×4 (06:14→21:24)
[2022-05-12] MEDS: PANTOPRAZOLE 40 MG TABLET PO SCH (06:34)
[2022-05-12] MEDS: LEVOTHYROXINE 50 MCG TAB PO SCH (06:35)
[2022-05-12] MEDS: INSULIN DETEMIR (LEVEMIR) 100 UNIT/ML SYR SQ SCH (06:36)
[2022-05-12] MEDS: POTASSIUM CHLORIDE ER 20 MEQ TAB.ER PO SCH (08:45)
[2022-05-12] MEDS: ISOSORBIDE MONONITRATE ER 30 MG TAB.ER.24H PO SCH (08:45)
[2022-05-12] MEDS: GABAPENTIN 300 MG CAP PO SCH ×2 (08:45→21:24)
[2022-05-12] MEDS: FUROSEMIDE 10 MG/ML 2 ML VIAL IV SCH (08:45)
[2022-05-12] MEDS: OXYBUTYNIN CHLORIDE 5 MG TAB PO SCH ×2 (08:45→21:24)
[2022-05-12] MEDS: METOPROLOL TARTRATE 50 MG TAB PO SCH ×3 (08:45→21:23)
[2022-05-12] MEDS: DOCUSATE 100 MG CAP PO SCH (08:46)
[2022-05-12 08:50] LABS: Calcium 8.5 mg/dL (8.4-10.2); Potassium 3.9 mmol/L (3.5-5.1)
[2022-05-12 09:23] LABS: Anisocytosis Slight; HCT 26.8 % (34.0-46.0); HGB 8.2 gm/dL (11.4-16.0); Hypochromasia Marked; MCHC 30.6 g/dL (31.0-37.0); MCV 91.6 fL (80.0-100.0); Mean Platelet Volume 8.8; Platelet Count 152 k/uL (150-450); RBC 2.93 m/uL (3.80-5.40); RDW 17.2 % (11.5-15.5)
--- NOTE | 2022-05-12 10:27 | P.PN ---
Subjective Progress Note Date: 05/12/22 Progress Note Date: 05/11/22 Principal diagnosis: 72-year-old female well-known to my practice recently admitted from [facility] subacute rehab facility with anemia and chronic hypoxic respiratory failure currently using 2.5 L nasal O2 at home patient was discharged 04/22/2022 to subacute rehab for acute on chronic CHF recent COVID-19 pneumonia January 2022, chronic fibrin changes secondary to Coumadin infection and chronic anemia with Hemoccult. Patient had a second unit of packed red cells on 05/10/2022 was feeling better. Patient remained on 2 L reason nasal cannula. Patient under went EGD and colonoscopy earlier today 05/12/2022 diuresing well on Lasix IV push with 24-hour I&O reflecting a negative fluid balance. anticoagulation on hold, nothing by mouth, scheduled for EGD and colonoscopy today. Hemoglobin currently 8.2, bicarb 24, BUN 25, creatinine 1.05. Blood sugars controlled. Objective - Vital Signs Vital signs: Vital Signs Temp 97.7 F 05/12/22 08:08 Pulse 69 05/12/22 08:08 Resp 18 05/12/22 08:08 BP 114/74 05/12/22 08:08 Pulse Ox 98 05/12/22 08:08 FiO2 35 05/12/22 08:08 Intake & Output 05/11/22 05/12/22 05/12/22 18:59 06:59 18:59 Intake Total 138 Output Total 1974 200 Balance -1837 -200 Weight 84 kg Intake: IV 20 Invasive Line 1 20 Oral 118 Output: Urine 1974 Other: Voiding Method External Catheter External Catheter External Catheter # Voids 1 # Bowel Movements 1 1 - Exam - Exam General: Awake, alert and oriented times 3. no acute distress.] HEENT: [PERRL. EOMI. No pharyngeal erythema or exudate.] Neck: [Supple, no JVD. Cardiac: [Heart regular in rate and rhythm. No S3. No S4. No clicks, rubs. No murmur.] Lungs: Patient has coarse breath sounds with poor air exchange Abdomen: [No mass. No organomegaly. Bowel sounds presnt and normoactive in all 4 quadrants.] Extremes: [No edema no cyanosis,normal pulses] Skin: Warm and dry,No rash. - Labs CBC & Chem 7: 05/12/22 08:13 05/12/22 08:13 Labs: Abnormal Lab Results - Last 24 Hours (Table) 05/11/22 05/11/22 05/11/22 Range/Units 08:39 11:53 16:45 RBC (3.80-5.40) m/uL Hgb (11.4-16.0) gm/dL Hct (34.0-46.0) % MCHC (31.0-37.0) g/dL RDW (11.5-15.5) % Chloride (98-107) mmol/L Carbon Dioxide (22-30) mmol/L BUN (7-17) mg/dL Glucose (74-99) mg/dL POC Glucose (mg/dL) 128 H 129 H (70-110) mg/dL Iron 23 L (50-170) ug/dL % Saturation 8.28 L (12.00-45.00) Transferrin 201.0 L (204.0-354.0) mg/dL 05/11/22 05/12/22 05/12/22 Range/Units 19:44 05:50 08:13 RBC (3.80-5.40) m/uL Hgb (11.4-16.0) gm/dL Hct (34.0-46.0) % MCHC (31.0-37.0) g/dL RDW (11.5-15.5) % Chloride 91 L (98-107) mmol/L Carbon Dioxide 44 H* (22-30) mmol/L BUN 25 H (7-17) mg/dL Glucose 131 H (74-99) mg/dL POC Glucose (mg/dL) 224 H 145 H (70-110) mg/dL Iron (50-170) ug/dL % Saturation (12.00-45.00) Transferrin (204.0-354.0) mg/dL 05/12/22 Range/Units 08:13 RBC 2.93 L (3.80-5.40) m/uL Hgb 8.2 L (11.4-16.0) gm/dL Hct 26.8 L (34.0-46.0) % MCHC 30.6 L (31.0-37.0) g/dL RDW 17.2 H (11.5-15.5) % Chloride (98-107) mmol/L Carbon Dioxide (22-30) mmol/L BUN (7-17) mg/dL Glucose (74-99) mg/dL POC Glucose (mg/dL) (70-110) mg/dL Iron (50-170) ug/dL % Saturation (12.00-45.00) Transferrin (204.0-354.0) mg/dL Assessment and Plan Assessment: (1) Anemia, status post 2 units packed RBCs Current Visit: Yes Status: Acute Code(s): D64.9 - ANEMIA, UNSPECIFIED SNOMED Code(s): 481781241 (2) Chronic diastolic (congestive) heart failure Current Visit: Yes Status: Acute Code(s): I50.32 - CHRONIC DIASTOLIC (HEMANTH ESTIVE) HEART FAILURE SNOMED Code(s): 198057530 (3) Pulmonary edema Current Visit: Yes Status: Acute Code(s): J81.1 - CHRONIC PULMONARY EDEMA SNOMED Code(s): 70336530 (4) Acute on chronic anemia Current Visit: No Status: Acute Code(s): D64.9 - ANEMIA, UNSPECIFIED SNOMED Code(s): 929940151 (5) Acute on chronic diastolic (congestive) heart failure Current Visit: No Status: Acute Code(s): I50.33 - ACUTE ON CHRONIC DIASTOLIC (CONGESTIVE) HEART FAILURE SNOMED Code(s): 074199476 (6) Atrial fibrillation, chronic Current Visit: No Status: Acute Code(s): I48.91 - UNSPECIFIED ATRIAL FIBRILLATION SNOMED Code(s): 93350979 (7) COVID Current Visit: No Status: Acute Code(s): U07.1 - COVID-19 SNOMED Code(s): 295585386 (8) CAD (9) mild aortic stenosis, severe tricuspid regurgitation (10) diabetes mellitus, A1c 6.9 Plan: Continue on current medication regime ,monitoring and symptomatic treatment. Nothing by mouth for EGD and colonoscopy today. Diuresing/anticoagulation as per cardiology. Close monitoring of hemoglobin, renal function, H with repeat labs ordered for a.m. A1c 6.9. The impression and plan of care has been dictated as directed. : I performed a history and examination of this patient, discussed the same with the dictator. I agree with the dictator's note ,documented as a scribe. Any additional findings or plans will be noted.
[2022-05-12 11:40] LABS: Glucose,Whole Blood 189 mg/dL (70-110)
--- NOTE | 2022-05-12 12:23 | P.PN ---
Subjective The patient is a pleasant 72-year-old female patient who sees Dr. Weller in the office. Patient with a past medical history significant for permanent atrial fibrillation, coronary artery disease with prior stenting, heart failure with preserved ejection fraction, and aortic stenosis, hypertension and dyslipidemia. We are consulted for congestive heart failure. The patient somewhat is a poor historian. Apparently the patient was initially facility was getting rehab for bilateral lower extremity weakness. She was brought to the hospital because she was more short of breath and increasing in the lower extremities edema. She was found to be anemic with a hemoglobin below 7. She was receiving oral anticoagulation for the atrial fibrillation. She reports no symptoms of chest pain or chest discomfort and no dizziness or lightheadedness and no feeling of heart racing or fluttering and no presyncope or syncope. Patient was started on IV Lasix and is being worked up for her anemia Echo 04/07/2022- EF 4550 percent, moderate concentric LVH, severe pulmonary hypertension, mild aortic regurgitation, mild aortic stenosis, mean gradient of 14 mmHg. Severe tricuspid regurgitation RVSP 61mmHG. 05/12 Patient seen and examined at bedside, no acute distress. Her breathing has improved. She continues to be on IV Lasix. -2L fluid balance over the past 24 hours. BUN 32 sCr 1.04 (1.05 yesterday). Hemoglobin is 8.2. GENERAL: In no acute distress. NECK: Supple without JVD or thyromegaly. LUNGS: Breath sounds crackles in the bases auscultation bilaterally. Respiration equal and unlabored. HEART: Regular rate and rhythm without murmurs, rubs or gallops. S1 and S2 heard. EXTREMITIES: Normal range of motion, no edema. No clubbing or cyanosis. Peripheral pulses intact. ASSESSMENT Acute on chronic heart failure with preserved ejection, likely exacerbated secondary to anemia Permanent atrial fibrillation, on Eliquis outpatient on hold secondary to anemia Anemia s/p 2 units of PRBCs this admission Coronary artery disease s/p prior stenting Hypertension Dyslipidemia Mild aortic stenosis Severe pulmonary hypertension Severe tricuspid regurgitation PLAN Transition to PO Lasix 40mg BID Hold anticoagulation at this point to the anemia further investigated, recommend restarting based on GI/Surgery recommendations Patient is currently stable and no further changes from a cardiology perspective, we'll follow the patient as needed. Please reconsult if needed. Follow up outpatient with Dr. Weller Nurse Practitioner note has been reviewed, I agree with a documented findings and plan of care. Patient was seen and examined. Objective - Vital Signs Vital signs: Vital Signs Temp 97.7 F 05/12/22 08:08 Pulse 69 05/12/22 08:08 Resp 18 05/12/22 08:08 BP 114/74 05/12/22 08:08 Pulse Ox 98 05/12/22 08:08 FiO2 35 05/12/22 08:08 Intake & Output 05/11/22 05/12/22 05/12/22 18:59 06:59 18:59 Intake Total 138 Output Total 1974 200 300 Balance -1836 -300 Weight 84 kg Intake: IV 20 Invasive Line 1 20 Oral 118 Output: Urine 1974 200 300 Other: Voiding Method External Catheter External Catheter External Catheter # Voids 1 # Bowel Movements 1 1 - Labs CBC & Chem 7: 05/12/22 08:13 05/12/22 08:13 Labs: Abnormal Lab Results - Last 24 Hours (Table) 05/11/22 05/11/22 05/11/22 Range/Units 08:39 11:53 16:45 RBC (3.80-5.40) m/uL Hgb (11.4-16.0) gm/dL Hct (34.0-46.0) % MCHC (31.0-37.0) g/dL RDW (11.5-15.5) % Chloride (98-107) mmol/L Carbon Dioxide (22-30) mmol/L BUN (7-17) mg/dL Glucose (74-99) mg/dL POC Glucose (mg/dL) 128 H 129 H (70-110) mg/dL Iron 23 L (50-170) ug/dL % Saturation 8.28 L (12.00-45.00) Transferrin 201.0 L (204.0-354.0) mg/dL 05/11/22 05/12/22 05/12/22 Range/Units 19:44 05:50 08:13 RBC (3.80-5.40) m/uL Hgb (11.4-16.0) gm/dL Hct (34.0-46.0) % MCHC (31.0-37.0) g/dL RDW (11.5-15.5) % Chloride 91 L (98-107) mmol/L Carbon Dioxide 44 H* (22-30) mmol/L BUN 25 H (7-17) mg/dL Glucose 131 H (74-99) mg/dL POC Glucose (mg/dL) 224 H 145 H (70-110) mg/dL Iron (50-170) ug/dL % Saturation (12.00-45.00) Transferrin (204.0-354.0) mg/dL 05/12/22 05/12/22 Range/Units 08:13 11:37 RBC 2.93 L (3.80-5.40) m/uL Hgb 8.2 L (11.4-16.0) gm/dL Hct 26.8 L (34.0-46.0) % MCHC 30.6 L (31.0-37.0) g/dL RDW 17.2 H (11.5-15.5) % Chloride (98-107) mmol/L Carbon Dioxide (22-30) mmol/L BUN (7-17) mg/dL Glucose (74-99) mg/dL POC Glucose (mg/dL) 189 H (70-110) mg/dL Iron (50-170) ug/dL % Saturation (12.00-45.00) Transferrin (204.0-354.0) mg/dL
--- NOTE | 2022-05-12 15:03 | P.PN ---
Subjective Progress Note Date: 05/12/22 CHIEF COMPLAINT: Anemia HISTORY OF PRESENT ILLNESS: EGD and colonoscopy not completed yesterday due to poor bowel prep. Patient apparently had black stools a few weeks ago. Yesterday she did have a brown solid bowel movement. Patient denies abdominal pain. Denies any nausea or vomiting. Afebrile. WBC is 6 Hgb 8.2 platelets 152 sodium 140 potassium 3.9 creatinine 1.04 patient evaluated by cardiology. They have transition patient to oral Lasix. Patient's anticoagulation for her A. fib is on hold. She is on 3 L 97%. WBC is 6 hemoglobin 8.2 platelets 152 sodium is 140 potassium is 3.9 CO2 is 44 creatinine 1.05 BUN is 20 iron is low at 23 Patient seen and examined with Dr. haile PHYSICAL EXAM: VITAL SIGNS: Reviewed. GENERAL: Well-developed in no acute distress. HEENT: No sclera icterus. Extraocular movements grossly intact. Moist buccal mucosa. Head is atraumatic, normocephalic. ABDOMEN: Soft. Obese. Nondistended. Nontender. NEUROLOGIC: Alert and oriented. Cranial nerves II through XII grossly intact. ASSESSMENT: 1. Anemia with history of black stools. PLAN: -Patient had poor colonoscopy prep. She has been rescheduled for EGD and colonoscopy on , 05/14/[address] haile -Continue clear liquid diet -Start GoLYTELY prep tomorrow -Continue to monitor hemoglobin -Continue to monitor for any signs or symptoms of bleeding -Continue Protonix -Continue to hold anticoagulation Physician Box Toe Stitcher note has been reviewed by physician. Signing provider agrees with the documented findings, assessment, and plan of care. Objective - Vital Signs Vital signs: Vital Signs Temp 97.7 F 05/12/22 08:08 Pulse 69 05/12/22 08:08 Resp 18 05/12/22 08:08 BP 114/74 05/12/22 08:08 Pulse Ox 98 05/12/22 08:08 FiO2 35 05/12/22 08:08 Intake & Output 05/11/22 05/12/22 05/12/22 18:59 06:59 18:59 Intake Total 138 Output Total 1974 200 300 Balance -1836 Weight 84 kg Intake: IV 20 Invasive Line 1 20 Oral 118 Output: Urine 1974 200 300 Other: Voiding Method External Catheter External Catheter External Catheter # Voids 1 # Bowel Movements 1 1 - Labs CBC & Chem 7: 05/12/22 08:13 05/12/22 08:13 Labs: Abnormal Lab Results - Last 24 Hours (Table) 05/11/22 05/11/22 05/11/22 Range/Units 08:39 16:45 19:44 RBC (3.80-5.40) m/uL Hgb (11.4-16.0) gm/dL Hct (34.0-46.0) % MCHC (31.0-37.0) g/dL RDW (11.5-15.5) % Chloride (98-107) mmol/L Carbon Dioxide (22-30) mmol/L BUN (7-17) mg/dL Glucose (74-99) mg/dL POC Glucose (mg/dL) 129 H 224 H (70-110) mg/dL Iron 23 L (50-170) ug/dL % Saturation 8.28 L (12.00-45.00) Transferrin 201.0 L (204.0-354.0) mg/dL 05/12/22 05/12/22 05/12/22 Range/Units 05:50 08:13 08:13 RBC 2.93 L (3.80-5.40) m/uL Hgb 8.2 L (11.4-16.0) gm/dL Hct 26.8 L (34.0-46.0) % MCHC 30.6 L (31.0-37.0) g/dL RDW 17.2 H (11.5-15.5) % Chloride 91 L (98-107) mmol/L Carbon Dioxide 44 H* (22-30) mmol/L BUN 25 H (7-17) mg/dL Glucose 131 H (74-99) mg/dL POC Glucose (mg/dL) 145 H (70-110) mg/dL Iron (50-170) ug/dL % Saturation (12.00-45.00) Transferrin (204.0-354.0) mg/dL 05/12/22 Range/Units 11:37 RBC (3.80-5.40) m/uL Hgb (11.4-16.0) gm/dL Hct (34.0-46.0) % MCHC (31.0-37.0) g/dL RDW (11.5-15.5) % Chloride (98-107) mmol/L Carbon Dioxide (22-30) mmol/L BUN (7-17) mg/dL Glucose (74-99) mg/dL POC Glucose (mg/dL) 189 H (70-110) mg/dL Iron (50-170) ug/dL % Saturation (12.00-45.00) Transferrin (204.0-354.0) mg/dL
[2022-05-12] MEDS ORDERED: FUROSEMIDE 40 MG TAB PO SCH (16:00)
[2022-05-12] MEDS: FUROSEMIDE 40 MG TAB PO SCH (16:40)
[2022-05-12 16:49] LABS: Glucose,Whole Blood 217 mg/dL (70-110)
[2022-05-12 21:05] LABS: Glucose,Whole Blood 155 mg/dL (70-110)
[2022-05-12] MEDS: MIRTAZAPINE 15 MG TAB PO SCH (21:23)
[2022-05-12] MEDS: ATORVASTATIN 40 MG TAB PO SCH (21:24)
[2022-05-12] MEDS: ACETAMINOPHEN TAB 325 MG TAB PO PRN (21:26)
[2022-05-13 06:51] LABS: Glucose,Whole Blood 104 mg/dL (70-110)
[2022-05-13] MEDS: INSULIN ASPART (NovoLOG) 100 UNIT/ML VIAL SQ SCH ×4 (06:53→20:54)
[2022-05-13] MEDS: PANTOPRAZOLE 40 MG TABLET PO SCH (06:54)
[2022-05-13] MEDS: LEVOTHYROXINE 50 MCG TAB PO SCH (06:55)
[2022-05-13] MEDS: INSULIN DETEMIR (LEVEMIR) 100 UNIT/ML SYR SQ SCH ×2 (06:59→07:01)
[2022-05-13] MEDS ORDERED: PEG 3350 (236 GM/BTL) + LYTES 4,000 ML BOTTLE PO ONE (09:00)
[2022-05-13] MEDS: DOCUSATE 100 MG CAP PO SCH (09:44)
[2022-05-13] MEDS: GABAPENTIN 300 MG CAP PO SCH ×2 (09:44→20:53)
[2022-05-13] MEDS: FUROSEMIDE 40 MG TAB PO SCH ×2 (09:44→18:07)
[2022-05-13] MEDS: METOPROLOL TARTRATE 50 MG TAB PO SCH ×3 (09:44→20:54)
[2022-05-13] MEDS: POTASSIUM CHLORIDE ER 20 MEQ TAB.ER PO SCH (09:44)
[2022-05-13] MEDS: OXYBUTYNIN CHLORIDE 5 MG TAB PO SCH ×2 (09:44→20:54)
[2022-05-13] MEDS: ISOSORBIDE MONONITRATE ER 30 MG TAB.ER.24H PO SCH (09:44)
[2022-05-13 10:01] LABS: Anisocytosis Slight; Basophils % (A) 0 %; Eosinophils # (A) 0.2 k/uL (0-0.7); Eosinophils % (A) 4 %; HCT 26.5 % (34.0-46.0); HGB 7.9 gm/dL (11.4-16.0); Hypochromasia Marked; Lymphocytes # (A) 0.8 k/uL (1.0-4.8); Lymphocytes % (A) 15 %; MCH 27.4 pg (25.0-35.0); MCHC 29.8 g/dL (31.0-37.0); MCV 91.8 fL (80.0-100.0); Mean Platelet Volume 8.7; Monocytes # (A) 0.3 k/uL (0-1.0); Monocytes % (A) 5 %; Neutrophils # (A) 3.8 k/uL (1.3-7.7); Neutrophils % (A) 74 %; Platelet Count 149 k/uL (150-450); RBC 2.88 m/uL (3.80-5.40); RDW 17.4 % (11.5-15.5); WBC 5.2 k/uL (3.8-10.6)
[2022-05-13 10:28] LABS: Calcium 8.6 mg/dL (8.4-10.2); Potassium 3.3 mmol/L (3.5-5.1)
[2022-05-13 11:49] LABS: Glucose,Whole Blood 144 mg/dL (70-110)
[2022-05-13] MEDS ORDERED: POTASSIUM CHLORIDE ER 20 MEQ TAB.ER PO STA (12:15)
--- NOTE | 2022-05-13 12:17 | P.PN ---
Subjective Progress Note Date: 05/13/22 CHIEF COMPLAINT: Anemia HISTORY OF PRESENT ILLNESS: EGD and colonoscopy not completed due to poor bowel prep. Patient apparently had black stools a few weeks ago. Patient denies any abdominal pain. She denies any nausea or vomiting. She is started her GoLYTELY prep. Afebrile. WBC 5.2 hemoglobin 7.9 platelets 149 sodium is 138 potassium 3.3 CO2 is 44 creatinine 1.16 Patient seen and examined with Dr. haile PHYSICAL EXAM: VITAL SIGNS: Reviewed. GENERAL: Well-developed in no acute distress. HEENT: No sclera icterus. Extraocular movements grossly intact. Moist buccal mucosa. Head is atraumatic, normocephalic. ABDOMEN: Soft. Obese. Nondistended. Nontender. NEUROLOGIC: Alert and oriented. Cranial nerves II through XII grossly intact. ASSESSMENT: 1. Anemia with history of black stools. 2. Iron deficiency anemia PLAN: -Patient had poor colonoscopy prep. She has been rescheduled for EGD and colonoscopy tomorrow, 05/14/[address] haile -Continue clear liquid diet -Start GoLYTELY prep today -Nothing by mouth after midnight -Replace potassium -Continue to monitor hemoglobin -Continue to monitor for any signs or symptoms of bleeding -Continue Protonix -Continue to hold anticoagulation Physician X Ray Operator note has been reviewed by physician. Signing provider agrees with the documented findings, assessment, and plan of care. Objective - Vital Signs Vital signs: Vital Signs Temp 97.4 F L 05/13/22 12:05 Pulse 79 05/13/22 12:05 Resp 16 05/13/22 12:05 BP 135/60 05/13/22 12:05 Pulse Ox 100 05/13/22 12:05 FiO2 35 05/13/22 07:42 Intake & Output 05/12/22 05/13/22 05/13/22 18:59 06:59 18:59 Intake Total 200 Output Total 300 1300 Balance -300 -1100 Weight 86 kg Intake: Oral 200 Output: Urine 300 1300 Other: Voiding Method External Catheter External Catheter External Catheter # Voids 550 - Labs CBC & Chem 7: 05/13/22 08:51 05/13/22 08:51 Labs: Abnormal Lab Results - Last 24 Hours (Table) 05/12/22 05/12/22 05/13/22 Range/Units 16:48 21:04 08:51 RBC 2.88 L (3.80-5.40) m/uL Hgb 7.9 L (11.4-16.0) gm/dL Hct 26.5 L (34.0-46.0) % MCHC 29.8 L (31.0-37.0) g/dL RDW 17.4 H (11.5-15.5) % Plt Count 149 L (150-450) k/uL Lymphocytes # 0.8 L (1.0-4.8) k/uL Potassium (3.5-5.1) mmol/L Chloride (98-107) mmol/L Carbon Dioxide (22-30) mmol/L BUN (7-17) mg/dL Creatinine (0.52-1.04) mg/dL POC Glucose (mg/dL) 217 H 155 H (70-110) mg/dL 05/13/22 05/13/22 Range/Units 08:51 11:33 RBC (3.80-5.40) m/uL Hgb (11.4-16.0) gm/dL Hct (34.0-46.0) % MCHC (31.0-37.0) g/dL RDW (11.5-15.5) % Plt Count (150-450) k/uL Lymphocytes # (1.0-4.8) k/uL Potassium 3.3 L (3.5-5.1) mmol/L Chloride 91 L (98-107) mmol/L Carbon Dioxide 44 H* (22-30) mmol/L BUN 23 H (7-17) mg/dL Creatinine 1.16 H (0.52-1.04) mg/dL POC Glucose (mg/dL) 144 H (70-110) mg/dL
--- NOTE | 2022-05-13 16:54 | P.PN ---
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 Patient had a second unit of packed red cells on 05/10/2022 was feeling better. Patient remained on 2 L reason nasal cannula. Patient under went EGD and colonoscopy earlier today 05/12/2022 diuresing well on Lasix IV push with 24-hour I&O reflecting a negative fluid balance. anticoagulation on hold, nothing by mouth, scheduled for EGD and colonoscopy today. Hemoglobin currently 8.2, bicarb 24, BUN 25, creatinine 1.05. Blood sugars controlled. 05/13/2022 Hemoglobin 7.9 ,scheduled for her colonoscopy tomorrow, labs pending. Anticoagulation remains on hold. Denies chest pain, palpitations or increased shortness of breath. Objective - Vital Signs Vital signs: Vital Signs Temp 97.4 F L 05/13/22 12:05 Pulse 79 05/13/22 12:05 Resp 16 05/13/22 12:05 BP 135/60 05/13/22 12:05 Pulse Ox 100 05/13/22 12:05 FiO2 35 05/13/22 07:42 Intake & Output 05/12/22 05/13/22 05/13/22 18:59 06:59 18:59 Intake Total 200 236 Output Total 300 1300 Balance -300 -1100 236 Weight 86 kg Intake: Oral 200 236 Output: Urine 300 1300 Other: Voiding Method External Catheter External Catheter External Catheter # Voids 550 - Exam - Exam General: Awake, alert and oriented times 3. no acute distress.] HEENT: [PERRL. EOMI. No pharyngeal erythema or exudate.] Neck: [Supple, no JVD. Cardiac: [Heart regular in rate and rhythm. No S3. No S4. No clicks, rubs. No murmur.] Lungs: Bilateral air entry with bilateral bases diminished. Abdomen: [No mass. No organomegaly. Bowel sounds presnt and normoactive in all 4 quadrants.] Extremes: [No edema no cyanosis,normal pulses] Skin: Warm and dry,No rash. - Labs CBC & Chem 7: 05/13/22 08:51 05/13/22 08:51 Labs: Abnormal Lab Results - Last 24 Hours (Table) 05/12/22 05/12/22 05/13/22 Range/Units 16:48 21:04 08:51 RBC 2.88 L (3.80-5.40) m/uL Hgb 7.9 L (11.4-16.0) gm/dL Hct 26.5 L (34.0-46.0) % MCHC 29.8 L (31.0-37.0) g/dL RDW 17.4 H (11.5-15.5) % Plt Count 149 L (150-450) k/uL Lymphocytes # 0.8 L (1.0-4.8) k/uL Potassium (3.5-5.1) mmol/L Chloride (98-107) mmol/L Carbon Dioxide (22-30) mmol/L BUN (7-17) mg/dL Creatinine (0.52-1.04) mg/dL POC Glucose (mg/dL) 217 H 155 H (70-110) mg/dL 05/13/22 05/13/22 Range/Units 08:51 11:33 RBC (3.80-5.40) m/uL Hgb (11.4-16.0) gm/dL Hct (34.0-46.0) % MCHC (31.0-37.0) g/dL RDW (11.5-15.5) % Plt Count (150-450) k/uL Lymphocytes # (1.0-4.8) k/uL Potassium 3.3 L (3.5-5.1) mmol/L Chloride 91 L (98-107) mmol/L Carbon Dioxide 44 H* (22-30) mmol/L BUN 23 H (7-17) mg/dL Creatinine 1.16 H (0.52-1.04) mg/dL POC Glucose (mg/dL) 144 H (70-110) mg/dL Assessment and Plan Assessment: (1) Anemia, status post 2 units packed RBCs Current Visit: Yes Status: Acute Code(s): D64.9 - ANEMIA, UNSPECIFIED SNOMED Code(s): 831815777 (2) Chronic diastolic (congestive) heart failure Current Visit: Yes Status: Acute Code(s): I50.32 - CHRONIC DIASTOLIC (CONGESTIVE) HEART FAILURE SNOMED Code(s): 700381058 (3) Pulmonary edema Current Visit: Yes Status: Acute Code(s): J81.1 - CHRONIC PULMONARY EDEMA SNOMED Code(s): 73639944 (4) Acute on chronic anemia Current Visit: No Status: Acute Code(s): D64.9 - ANEMIA, UNSPECIFIED SNOMED Code(s): 559489390 (5) Acute on chronic diastolic (congestive) heart failure Current Visit: No Status: Acute Code(s): I50.33 - ACUTE ON CHRONIC DIASTOLIC (CONGESTIVE) HEART FAILURE SNOMED Code(s): 012415464 (6) Atrial fibrillation, chronic Current Visit: No Status: Acute Code(s): I48.91 - UNSPECIFIED ATRIAL FIBRILLATION SNOMED Code(s): 13611491 (7) COVID Current Visit: No Status: Acute Code(s): U07.1 - COVID-19 SNOMED Code(s): 660665635 (8) CAD (9) mild aortic stenosis, severe tricuspid regurgitation (10) diabetes mellitus, A1c 6.9 Plan: Continue on current medication regime ,monitoring and symptomatic treatment. Continue holding anticoagulation , colonoscopy tomorrow. Close monitoring of hemoglobin, renal function, with repeat labs ordered for a.m. The impression and plan of care has been dictated as directed. : I performed a history and examination of this patient, discussed the same with the dictator. I agree with the dictator's note ,documented as a scribe. Any additional findings or plans will be noted.
[2022-05-13 17:03] LABS: Glucose,Whole Blood 179 mg/dL (70-110)
[2022-05-13 20:15] LABS: Glucose,Whole Blood 193 mg/dL (70-110)
[2022-05-13] MEDS: MIRTAZAPINE 15 MG TAB PO SCH (20:53)
[2022-05-13] MEDS: ATORVASTATIN 40 MG TAB PO SCH (20:53)
[2022-05-13] MEDS: ACETAMINOPHEN TAB 325 MG TAB PO PRN (20:54)
[2022-05-14 06:09] LABS: Glucose,Whole Blood 174 mg/dL (70-110)
[2022-05-14] MEDS: INSULIN ASPART (NovoLOG) 100 UNIT/ML VIAL SQ SCH ×5 (06:15→21:21)
[2022-05-14] MEDS: LEVOTHYROXINE 50 MCG TAB PO SCH (06:16)
[2022-05-14] MEDS: PANTOPRAZOLE 40 MG TABLET PO SCH (06:16)
[2022-05-14 10:30] LABS: Calcium 8.3 mg/dL (8.4-10.2); Potassium 4.2 mmol/L (3.5-5.1)
[2022-05-14 10:35] LABS: Anisocytosis Slight; Basophils % (A) 0 %; Eosinophils # (A) 0.2 k/uL (0-0.7); Eosinophils % (A) 4 %; HCT 27.1 % (34.0-46.0); HGB 8.2 gm/dL (11.4-16.0); Hypochromasia Marked; Lymphocytes # (A) 0.6 k/uL (1.0-4.8); Lymphocytes % (A) 14 %; MCH 27.7 pg (25.0-35.0); MCHC 30.1 g/dL (31.0-37.0); MCV 92.1 fL (80.0-100.0); Mean Platelet Volume 8.9; Monocytes # (A) 0.2 k/uL (0-1.0); Monocytes % (A) 5 %; Neutrophils # (A) 3.3 k/uL (1.3-7.7); Neutrophils % (A) 73 %; Platelet Count 151 k/uL (150-450); RBC 2.94 m/uL (3.80-5.40); RDW 17.3 % (11.5-15.5); WBC 4.5 k/uL (3.8-10.6)
[2022-05-14 11:42] LABS: Glucose,Whole Blood 147 mg/dL (70-110)
[2022-05-14] MEDS: ISOSORBIDE MONONITRATE ER 30 MG TAB.ER.24H PO SCH (12:58)
[2022-05-14] MEDS: POTASSIUM CHLORIDE ER 20 MEQ TAB.ER PO SCH (12:58)
[2022-05-14] MEDS: METOPROLOL TARTRATE 50 MG TAB PO SCH ×3 (12:58→21:21)
[2022-05-14] MEDS: FUROSEMIDE 40 MG TAB PO SCH ×2 (12:58→18:42)
[2022-05-14] MEDS: OXYBUTYNIN CHLORIDE 5 MG TAB PO SCH ×2 (12:58→21:21)
[2022-05-14] MEDS: DOCUSATE 100 MG CAP PO SCH (12:58)
[2022-05-14] MEDS: GABAPENTIN 300 MG CAP PO SCH ×2 (12:58→21:21)
[2022-05-14] MEDS: INSULIN DETEMIR (LEVEMIR) 100 UNIT/ML SYR SQ SCH (13:56)
[2022-05-14 15:15] VITALS: BMI 35.9
[2022-05-14] MEDS ORDERED: LIDOCAINE 2% INJ 20 MG/ML (2 ML VIAL) ONE (16:53)
[2022-05-14] MEDS ORDERED: PROPOFOL 10 MG/ML 20 ML VIAL IV ONE (16:53)
[2022-05-14] MEDS ORDERED: SODIUM CHLORIDE 0.9% 500 ML 500 ML IV ONE (16:59)
--- NOTE | 2022-05-14 17:39 | P.OP ---
Date of Procedure: 05/14/22 Preoperative Diagnosis: Anemia GI bleed Postoperative Diagnosis: Small antral ulceration Diverticulosis Right colon polyp Procedure(s) Performed: EGD Colonoscopy Anesthesia: MAC Surgeon: Pablito Jay Pathology: other (Antrum, right colon polyp) Condition: stable Disposition: PACU Description of Procedure: The patient's placed on the endoscopy table in the lateral position. She received IV sedation. The gastro-/oropharynx passed in the esophagus into the stomach. Scope was placed through the pylorus. The first and second portion of duodenum appeared normal. Scope was then brought back the antrum and there appeared to be a very small ulceration. This was biopsied. The scope was unretroflexed and remainder the stomach appeared normal. The GE junction was at 40 cm. The distal esophagus appeared normal. Proximal esophagus appeared normal. Scope withdrawn for patient. Next digital rectal exam is performed. There was a few small external hemorrhoids. The flexible colonoscope was then placed patient anus and passed throughout the entire colon. The ileocecal valve was visualized. The cecum appeared normal. The right colon was examined there was a small polyp seen was removed with the snare. The transverse colon appeared normal. In the descending and sigmoid colon there was diverticular changes. Scope was then brought back the rectum and this appeared normal. Scope withdrawn for patient. There is no evidence of any GI bleed. His presumed patient may have had anemia from antral ulceration or diverticular bleeding previously.
[2022-05-14 18:52] LABS: Glucose,Whole Blood 167 mg/dL (70-110)
[2022-05-14 20:08] LABS: Glucose,Whole Blood 202 mg/dL (70-110)
[2022-05-14] MEDS: MIRTAZAPINE 15 MG TAB PO SCH (21:21)
[2022-05-14] MEDS: ATORVASTATIN 40 MG TAB PO SCH (21:21)
[2022-05-14] MEDS: LACTATED RINGERS 1,000 ML IV SCH (21:22)
[2022-05-14] MEDS: ACETAMINOPHEN TAB 325 MG TAB PO PRN (21:22)
[2022-05-15 05:53] LABS: Glucose,Whole Blood 216 mg/dL (70-110)
[2022-05-15] MEDS: INSULIN ASPART (NovoLOG) 100 UNIT/ML VIAL SQ SCH ×4 (06:24→20:41)
[2022-05-15] MEDS: INSULIN DETEMIR (LEVEMIR) 100 UNIT/ML SYR SQ SCH (06:24)
[2022-05-15] MEDS: LEVOTHYROXINE 50 MCG TAB PO SCH (06:24)
[2022-05-15] MEDS: PANTOPRAZOLE 40 MG TABLET PO SCH (06:24)
[2022-05-15] MEDS: LACTATED RINGERS 1,000 ML IV SCH (06:27)
[2022-05-15] MEDS: FUROSEMIDE 40 MG TAB PO SCH ×2 (08:44→15:39)
[2022-05-15] MEDS: POTASSIUM CHLORIDE ER 20 MEQ TAB.ER PO SCH (08:44)
[2022-05-15] MEDS: METOPROLOL TARTRATE 50 MG TAB PO SCH ×3 (08:44→20:40)
[2022-05-15] MEDS: OXYBUTYNIN CHLORIDE 5 MG TAB PO SCH ×2 (08:44→20:40)
[2022-05-15] MEDS: DOCUSATE 100 MG CAP PO SCH (08:44)
[2022-05-15] MEDS: ISOSORBIDE MONONITRATE ER 30 MG TAB.ER.24H PO SCH (08:44)
[2022-05-15] MEDS: GABAPENTIN 300 MG CAP PO SCH ×2 (08:44→20:40)
--- NOTE | 2022-05-15 09:10 | P.PN ---
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 Patient had a second unit of packed red cells on 05/10/2022 was feeling better. Patient remained on 2 L reason nasal cannula. Patient under went EGD and colonoscopy earlier today 05/12/2022 diuresing well on Lasix IV push with 24-hour I&O reflecting a negative fluid balance. anticoagulation on hold, nothing by mouth, scheduled for EGD and colonoscopy today. Hemoglobin currently 8.2, bicarb 24, BUN 25, creatinine 1.05. Blood sugars controlled. 05/13/2022 Hemoglobin 7.9 ,scheduled for her colonoscopy tomorrow, labs pending. Anticoagulation remains on hold. Denies chest pain, palpitations or increased shortness of breath. 05/14/2022 hemoglobin 8.2, platelets 151, renal function improving with BUN 18, creatinine down to 1.08. Bicarb 43, patient used her BiPAP last night and has been advised to use whenever she naps throughout the day. Vital signs stable. Denies chest pain, palpitations or shortness of breath. Colonoscopy pending. Objective - Vital Signs Vital signs: Vital Signs Temp 98.2 F 05/14/22 13:00 Pulse 82 05/14/22 13:00 Resp 16 05/14/22 13:00 BP 129/61 05/14/22 13:00 Pulse Ox 96 05/14/22 13:00 FiO2 35 05/14/22 03:56 Intake & Output 05/13/22 05/14/22 05/14/22 18:59 06:59 18:59 Intake Total 476 150 Balance 476 150 Weight 89 kg 89 kg Intake: IV 150 Oral 476 Other: Voiding Method External Catheter External Catheter External Catheter # Voids 1 # Bowel Movements 2 2 - Exam - Exam General: Alert and oriented times 3, sitting up in bed,no acute distress.] Neck: [Supple, no JVD. Cardiac: [Heart regular in rate and rhythm. No S3. No S4. No clicks, rubs. No murmur.] Lungs: CTA,Bilateral air entry with bilateral bases diminished. Abdomen: [No mass. No organomegaly. Bowel sounds presnt and normoactive in all 4 quadrants. Extremes: [No edema no cyanosis,normal pulses] Skin: Warm and dry,No rash. - Labs CBC & Chem 7: 05/14/22 09:32 05/14/22 09:32 Labs: Abnormal Lab Results - Last 24 Hours (Table) 05/13/22 05/14/22 05/14/22 Range/Units 20:14 06:08 09:32 RBC 2.94 L (3.80-5.40) m/uL Hgb 8.2 L (11.4-16.0) gm/dL Hct 27.1 L (34.0-46.0) % MCHC 30.1 L (31.0-37.0) g/dL RDW 17.3 H (11.5-15.5) % Lymphocytes # 0.6 L (1.0-4.8) k/uL Chloride (98-107) mmol/L Carbon Dioxide (22-30) mmol/L BUN (7-17) mg/dL Creatinine (0.52-1.04) mg/dL Glucose (74-99) mg/dL POC Glucose (mg/dL) 193 H 174 H (70-110) mg/dL Calcium (8.4-10.2) mg/dL 05/14/22 05/14/22 Range/Units 09:32 11:28 RBC (3.80-5.40) m/uL Hgb (11.4-16.0) gm/dL Hct (34.0-46.0) % MCHC (31.0-37.0) g/dL RDW (11.5-15.5) % Lymphocytes # (1.0-4.8) k/uL Chloride 91 L (98-107) mmol/L Carbon Dioxide 43 H* (22-30) mmol/L BUN 18 H (7-17) mg/dL Creatinine 1.08 H (0.52-1.04) mg/dL Glucose 130 H (74-99) mg/dL POC Glucose (mg/dL) 147 H (70-110) mg/dL Calcium 8.3 L (8.4-10.2) mg/dL Assessment and Plan Assessment: (1) Anemia, status post 2 units packed RBCs Current Visit: Yes Status: Acute Code(s): D64.9 - ANEMIA, UNSPECIFIED SNOMED Code(s): 650946457 (2) Chronic diastolic (congestive) heart failure Current Visit: Yes Status: Acute Code(s): I50.32 - CHRONIC DIASTOLIC (CONGESTIVE) HEART FAILURE SNOMED Code(s): 942625775 (3) Pulmonary edema Current Visit: Yes Status: Acute Code(s): J81.1 - CHRONIC PULMONARY EDEMA SNOMED Code(s): 41167569 (4) Acute on chronic anemia Current Visit: No Status: Acute Code(s): D64.9 - ANEMIA, UNSPECIFIED SNOMED Code(s): 840388409 (5) Acute on chronic diastolic (congestive) heart failure Current Visit: No Status: Acute Code(s): I50.33 - ACUTE ON CHRONIC DIASTOLIC (CONGESTIVE) HEART FAILURE SNOMED Code(s): 291495432 (6) Atrial fibrillation, chronic Current Visit: No Status: Acute Code(s): I48.91 - UNSPECIFIED ATRIAL FIBRILLATION SNOMED Code(s): 21754208 (7) COVID Current Visit: No Status: Acute Code(s): U07.1 - COVID-19 SNOMED Code(s): 208026155 (8) CAD (9) mild aortic stenosis, severe tricuspid regurgitation (10) diabetes mellitus, A1c 6.9 Plan: Continue on current medication regime ,monitoring and symptomatic treatment. Continue holding anticoagulation , colonoscopy this afternoon. Patient will be discharged to subacute rehab pending colonoscopy results, surgeries clearance, and final DC recommendations/anticoagulation and clearance per both surgery and cardiology. The impression and plan of care has been dictated as directed. : I performed a history and examination of this patient, discussed the same with the dictator. I agree with the dictator's note ,documented as a scribe. Any additional findings or plans will be noted.
--- NOTE | 2022-05-15 09:37 | P.DS ---
Providers Date of admission: 05/08/22 14:10 Expected date of discharge: 05/15/22 Attending physician: Maik Jama Consults: 05/08/22 14:10 Consult Physician Urgent Consulting Provider: Veronica Monteiro Consult Reason/Comments: Anemia Do you want consulting provider notified?: Yes 05/08/22 14:39 Consult Physician Urgent Consulting Provider: [facility] Consult Reason/Comments: Pulmonary edema Do you want consulting provider notified?: Yes 05/08/22 16:07 Consult Physician Routine Consulting Provider: Pablito Jay Consult Reason/Comments: anemia Do you want consulting provider notified?: Yes Primary care physician: Maik Jama [facility] Hospital Course: Final Diagnoses: (1) Anemia, status post 2 units packed RBCs Current Visit: Yes Status: Acute Code(s): D64.9 - ANEMIA, UNSPECIFIED SNOMED Code(s): 509082534 (2) Chronic diastolic (congestive) heart failure Current Visit: Yes Status: Acute Code(s): I50.32 - CHRONIC DIASTOLIC (CONGESTIVE) HEART FAILURE SNOMED Code(s): 949019532 (3) Pulmonary edema Current Visit: Yes Status: Acute Code(s): J81.1 - CHRONIC PULMONARY EDEMA SNOMED Code(s): 05516167 (4) Acute on chronic anemia, status post EGD, colonoscopy reporting an no nbleeding antral ulceration, suspected diverticular bleeding previously Current Visit: No Status: Acute Code(s): D64.9 - ANEMIA, UNSPECIFIED SNOMED Code(s): 489498029 (5) Acute on chronic diastolic (congestive) heart failure Current Visit: No Status: Acute Code(s): I50.33 - ACUTE ON CHRONIC DIASTOLIC (CONGESTIVE) HEART FAILURE SNOMED Code(s): 637754140 (6) Atrial fibrillation, chronic Current Visit: No Status: Acute Code(s): I48.91 - UNSPECIFIED ATRIAL FIBRILLATION SNOMED Code(s): 11258490 (7) COVID Current Visit: No Status: Acute Code(s): U07.1 - COVID-19 SNOMED Code(s): 670569346 (8) CAD (9) mild aortic stenosis, severe tricuspid regurgitation (10) diabetes mellitus, A1c 6.9 (11) FLORES,hypercapnic respiratory failure, requiring BiPAP Hospital course: This is a 72-year-old female well-known to my practice recently admitted from [facility] subacute rehab facility with anemia and chronic hypoxic respiratory failure currently using 2.5 L nasal O2 at home patient was discharged 04/22/2022 to subacute rehab for acute on chronic CHF recent COVID-19 pneumonia January 2022, chronic fibrin changes secondary to Coumadin infection and chronic anemia with Hemoccult. Patient had a second unit of packed red cells on 05/10/2022 was feeling better. Patient remained on 2 L reason nasal cannula. Patient under went EGD and colonoscopy earlier today 05/12/2022 diuresing well on Lasix IV push with 24-hour I&O reflecting a negative fluid balance. anticoagulation on hold, nothing by mouth, scheduled for EGD and colonoscopy today. Hemoglobin currently 8.2, bicarb 24, BUN 25, creatinine 1.05. Blood sugars controlled. 05/13/2022 Hemoglobin 7.9 ,scheduled for her colonoscopy tomorrow, labs pending. Anticoagulation remains on hold. Denies chest pain, palpitations or increased shortness of breath. 05/14/2022 hemoglobin 8.2, platelets 151, renal function improving with BUN 18, creatinine down to 1.08. Bicarb 43, patient used her BiPAP last night and has been advised to use whenever she naps throughout the day. Vital signs stable. Denies chest pain, palpitations or shortness of breath. Colonoscopy pending. Completed EGD and colonoscopy reporting very small nonbleeding ulceration of the intra-abdominal, biopsied; a few small external hemorrhoids, right colon small polyp, diverticular changes, no evidence of any GI bleed with anemia presumed to have resulted from antral ulceration or diverticular bleeding previously. Significant clinical improvement .Patient will be discharged to subacute rehab today in a stable condition with guarded prognosis pending final DC recommendations including clearance to resume anticoagulation per Gen. surgery and confirmation of diuretic dose at DC per cardiology. The impression and plan of care has been dictated as directed. : I performed a history and examination of this patient, discussed the same with the dictator. I agree with the dictator's note ,documented as a scribe. Any additional findings or plans will be noted. Patient Condition at Discharge: Stable Plan - Discharge Summary Discharge Rx Participant: Yes New Discharge Prescriptions: New Furosemide [Lasix] 40 mg PO BID@0900,1600 tab Pantoprazole [Protonix] 40 mg PO DAILY@0600 tab Continue Atorvastatin [Lipitor] 40 mg PO HS@2099 Levothyroxine Sodium [Tirosint] 50 mcg PO DAILY@0600 Isosorbide Mononitrate [Isosorbide Mononitrate ER] 30 mg PO DAILY@0900 Oxybutynin Chloride 5 mg PO BID@899,2099 Mirtazapine [Remeron] 15 mg PO HS@2099 Metoprolol Tartrate [Lopressor] 50 mg PO TID@ Insulin Lispro [humaLOG Kwikpen] See Protocol SQ ACHS@,,, Insulin Lispro [humaLOG Kwikpen] 5 unit SQ AC-TID@ Potassium Chloride ER [K-Dur 20] 20 meq PO DAILY@0900 Insulin Glargine-Yfgn [Semglee (Yfgn) Pen] 50 units SQ DAILY@0900 Docusate [Colace] 100 mg PO DAILY@0900 Gabapentin [Neurontin] 300 mg PO BID@899,2099 #6 cap Apixaban [Eliquis] 5 mg PO BID@09,2099 SILVER sulfADIAZINE CREAM [Silvadene Cream] 1 applic TOPICAL DAILY each Acetaminophen Tab [Tylenol] 650 mg PO Q6H PRN PRN Reason: Pain Furosemide [Lasix] 40 mg PO DAILY@0600 Discontinued Omeprazole 20 mg PO DAILY@0600 Discharge Medication List Atorvastatin [Lipitor] 40 mg PO HS@209908/10/16 [History] Isosorbide Mononitrate [Isosorbide Mononitrate ER] 30 mg PO DAILY@0900 08/10/16 [History] Levothyroxine Sodium [Tirosint] 50 mcg PO DAILY@0600 08/10/16 [History] Oxybutynin Chloride 5 mg PO BID@0900,209908/10/16 [History] Apixaban [Eliquis] 5 mg PO BID@0900,209904/12/22 [History] Metoprolol Tartrate [Lopressor] 50 mg PO TID@,,04/12/22 [History] Mirtazapine [Remeron] 15 mg PO HS@209904/12/22 [History] SILVER sulfADIAZINE CREAM [Silvadene Cream] 1 applic TOPICAL DAILY each 04/20/22 [Rx] Acetaminophen Tab [Tylenol] 650 mg PO Q6H PRN 05/08/22 [History] Docusate [Colace] 100 mg PO DAILY@0900 05/08/22 [History] Furosemide [Lasix] 40 mg PO DAILY@0600 05/08/22 [History] Insulin Glargine-Yfgn [Semglee (Yfgn) Pen] 50 units SQ DAILY@0900 05/08/22 [History] Insulin Lispro [humaLOG Kwikpen] 5 unit SQ AC-TID@,12,17 05/08/22 [History] Insulin Lispro [humaLOG Kwikpen] See Protocol SQ ACHS@,,,05/08/22 [History] Potassium Chloride ER [K-Dur 20] 20 meq PO DAILY@0900 05/08/22 [History] Furosemide [Lasix] 40 mg PO BID@0900,1600 tab 05/15/22 [Rx] Gabapentin [Neurontin] 300 mg PO BID@0900,2100 #6 cap 05/15/22 [Rx] Pantoprazole [Protonix] 40 mg PO DAILY@0600 tab 05/15/22 [Rx] Follow up Appointment(s)/Referral(s): Bryant Weller MD [STAFF PHYSICIAN] - 2 Weeks Maik Jama MD [Primary Care Provider] - 3 Days Activity/Diet/Wound Care/Special Instructions: cbc,bmp in 3 days BiPAP daily at bedtime and when napping Discharge Disposition: TRANSFER TO SNF/ECF
[2022-05-15 11:47] LABS: Glucose,Whole Blood 222 mg/dL (70-110)
[2022-05-15 12:19] LABS: Anisocytosis Slight; HCT 25.5 % (34.0-46.0); HGB 8.1 gm/dL (11.4-16.0); Hypochromasia Marked; MCH 29.4 pg (25.0-35.0); MCHC 31.6 g/dL (31.0-37.0); MCV 93.1 fL (80.0-100.0); Mean Platelet Volume 8.8; Platelet Count 135 k/uL (150-450); RBC 2.74 m/uL (3.80-5.40); RDW 16.9 % (11.5-15.5); WBC 4.8 k/uL (3.8-10.6)
--- NOTE | 2022-05-15 13:27 | P.PN ---
Subjective Progress Note Date: 05/15/22 CHIEF COMPLAINT: Anemia HISTORY OF PRESENT ILLNESS: Patient is status post EGD and colonoscopy results showing a small antral ulcer, diverticulosis and right colon polyp. Patient denies abdominal pain. She is tolerating diet. She's had no further black stools. Hemoglobin stable at 8.1 Patient seen and examined with Dr. haile PHYSICAL EXAM: VITAL SIGNS: Reviewed. GENERAL: Well-developed in no acute distress. HEENT: No sclera icterus. Extraocular movements grossly intact. Moist buccal mucosa. Head is atraumatic, normocephalic. ABDOMEN: Soft. Obese. Nondistended. Nontender. NEUROLOGIC: Alert and oriented. Cranial nerves II through XII grossly intact. ASSESSMENT: 1. Anemia with history of black stools. Status post EGD and colonoscopy 2. Iron deficiency anemia PLAN: -Patient is stable for discharge per surgical standpoint -Okay to resume Eliquis -Continue PPI Physician Program Dir note has been reviewed by physician. Signing provider agrees with the documented findings, assessment, and plan of care. Objective - Vital Signs Vital signs: Vital Signs Temp 97.2 F L 05/15/22 04:00 Pulse 84 05/15/22 12:27 Resp 17 05/15/22 12:27 BP 110/52 05/15/22 12:27 Pulse Ox 98 05/15/22 12:27 FiO2 35 05/15/22 04:00 Intake & Output 05/14/22 05/15/22 05/15/22 18:59 06:59 18:59 Intake Total 150 780 Output Total 900 Balance -750 780 Weight 89 kg Intake: IV 150 Intake, IV Titration 240 Amount Lactated Ringers 1,000 ml 240 @ 20 mls/hr IV .Q24H DL Rx#:[id number] Oral 540 Output: Urine 900 Other: Voiding Method External Catheter External Catheter External Catheter # Bowel Movements 0 - Labs CBC & Chem 7: 05/15/22 11:08 05/14/22 09:32 Labs: Abnormal Lab Results - Last 24 Hours (Table) 05/14/22 05/14/22 05/15/22 Range/Units 18:42 20:06 05:51 RBC (3.80-5.40) m/uL Hgb (11.4-16.0) gm/dL Hct (34.0-46.0) % RDW (11.5-15.5) % Plt Count (150-450) k/uL POC Glucose (mg/dL) 167 H 202 H 216 H (70-110) mg/dL 05/15/22 05/15/22 Range/Units 11:08 11:44 RBC 2.74 L (3.80-5.40) m/uL Hgb 8.1 L (11.4-16.0) gm/dL Hct 25.5 L (34.0-46.0) % RDW 16.9 H (11.5-15.5) % Plt Count 135 L (150-450) k/uL POC Glucose (mg/dL) 222 H (70-110) mg/dL
[2022-05-15 16:38] LABS: Glucose,Whole Blood 256 mg/dL (70-110)
[2022-05-15 20:23] LABS: Glucose,Whole Blood 249 mg/dL (70-110)
[2022-05-15] MEDS: ATORVASTATIN 40 MG TAB PO SCH (20:40)
[2022-05-15] MEDS: MIRTAZAPINE 15 MG TAB PO SCH (20:40)
[2022-05-15] MEDS: ACETAMINOPHEN TAB 325 MG TAB PO PRN (20:40)
[2022-05-16] MEDS: PANTOPRAZOLE 40 MG TABLET PO SCH (05:19)
[2022-05-16] MEDS: LACTATED RINGERS 1,000 ML IV SCH (05:19)
[2022-05-16] MEDS: LEVOTHYROXINE 50 MCG TAB PO SCH (05:19)
[2022-05-16 06:59] LABS: Glucose,Whole Blood 197 mg/dL (70-110)
[2022-05-16] MEDS: INSULIN DETEMIR (LEVEMIR) 100 UNIT/ML SYR SQ SCH (07:57)
[2022-05-16] MEDS: INSULIN ASPART (NovoLOG) 100 UNIT/ML VIAL SQ SCH ×4 (07:57→23:47)
[2022-05-16] MEDS: POTASSIUM CHLORIDE ER 20 MEQ TAB.ER PO SCH (07:58)
[2022-05-16] MEDS: FUROSEMIDE 40 MG TAB PO SCH ×2 (07:58→15:43)
[2022-05-16] MEDS: DOCUSATE 100 MG CAP PO SCH (07:58)
[2022-05-16] MEDS: GABAPENTIN 300 MG CAP PO SCH ×2 (07:59→20:18)
[2022-05-16] MEDS: ISOSORBIDE MONONITRATE ER 30 MG TAB.ER.24H PO SCH (08:07)
--- NOTE | 2022-05-16 09:18 | P.PN ---
Subjective Progress Note Date: 05/16/22 Principal diagnosis: Antral ulcer Patient doing well today. Denies abdominal pain. No bowel function. Hemoglobin was stable yesterday. Objective - Vital Signs Vital signs: Vital Signs Temp 98.5 F 05/16/22 05:39 Pulse 71 05/16/22 08:00 Resp 20 05/16/22 05:39 BP 99/51 05/16/22 08:00 Pulse Ox 99 05/16/22 05:39 FiO2 35 05/16/22 07:39 Intake & Output 05/15/22 05/16/22 05/16/22 18:59 06:59 18:59 Intake Total 236 Output Total 350 600 Balance -114 -600 Intake: Oral 236 Output: Urine 350 600 Other: Voiding Method External Catheter External Catheter # Bowel Movements 0 - Exam Abdomen: Soft, nontender, nondistended - Labs CBC & Chem 7: 05/15/22 11:08 05/14/22 09:32 Labs: Abnormal Lab Results - Last 24 Hours (Table) 05/15/22 05/15/22 05/15/22 Range/Units 11:08 11:44 16:36 RBC 2.74 L (3.80-5.40) m/uL Hgb 8.1 L (11.4-16.0) gm/dL Hct 25.5 L (34.0-46.0) % RDW 16.9 H (11.5-15.5) % Plt Count 135 L (150-450) k/uL POC Glucose (mg/dL) 222 H 256 H (70-110) mg/dL 05/15/22 05/16/22 Range/Units 20:21 06:54 RBC (3.80-5.40) m/uL Hgb (11.4-16.0) gm/dL Hct (34.0-46.0) % RDW (11.5-15.5) % Plt Count (150-450) k/uL POC Glucose (mg/dL) 249 H 197 H (70-110) mg/dL Assessment and Plan (1) Acute on chronic anemia Narrative/Plan: Patient doing well today. Continue antiacid therapy. Continue diet. Possible transfer back to [facility]. Current Visit: No Status: Acute Code(s): D64.9 - ANEMIA, UNSPECIFIED SNOMED Code(s): 766501570
[2022-05-16] MEDS: OXYBUTYNIN CHLORIDE 5 MG TAB PO SCH ×2 (09:26→23:48)
[2022-05-16] MEDS: METOPROLOL TARTRATE 50 MG TAB PO SCH ×3 (09:27→20:18)
[2022-05-16 12:02] LABS: Glucose,Whole Blood 207 mg/dL (70-110)
--- NOTE | 2022-05-16 12:23 | P.PN ---
Subjective This is a 72-year-old female admitted from [facility] subacute rehab with multifactorial anemia chronic hypoxic respiratory failure,wears 2.5 L nasal cannula O2 at home. Discharged 04/22/2022 to subacute rehab for acute on chronic CHF Recent COVID-19 pneumonia January 2022 with chronic fibrotic changes secondary to the Covid infection a chronic anemia with negative Hemoccult Right lower extremity cellulitis, it is since resolved at the [facility]. She was scheduled to receive 1 unit packed red blood cells when her hemoglobin 27.06 on Wednesday of this past week. Staff were unable to schedule an and send her to the ER yesterday for transfusion. She is admitted for this multifactorial anemia. She is anticoagulated on Elequis and his concerns of occult GI bleed. Currently Faith feels a improved since she received 1 unit packed red blood cells. She denies any significant chest pains or pressures. Has shortness of breath only when she exerts herself. She is quite morbidly obese. She denies any nausea vomiting. She does report dark stools since her Covid infection in January. May 10, 2022: patient is resting comfortably in her room. She is status post her second unit of packed red blood cells. She is feeling better.Vital signs including blood pressure and temperature have remained stable. She remains on 2 L of oxygen via nasal cannula.Chemistries this morning showed a BUN of 36 [place] creatinine of 1.12. Her CO2 is 41. Glucose has remained stable.She remains on IV Lasix for diuresis due to congestive heart failure. She is atrial fibrillation. Her anticoagulation is on cold for concerns of G.I. bleeding. She has a history of a laparoscopic banding procedure. 05/11/2022 72-year-old female well-known to my practice recently admitted from [facility] subacute rehab facility with anemia and chronic hypoxic respiratory failure currently using 2.5 L nasal O2 at home patient was discharged 04/22/2022 to subacute rehab for acute on chronic CHF recent COVID-19 pneumonia January 2022, chronic fibrin changes secondary to Coumadin infection and chronic anemia with Hemoccult. Patient had a second unit of packed red cells on 05/10/2022 was feeling better. Patient remained on 2 L reason nasal cannula. Patient under went EGD and colonoscopy earlier today 05/12/2022 diuresing well on Lasix IV push with 24-hour I&O reflecting a nega tive fluid balance. anticoagulation on hold, nothing by mouth, scheduled for EGD and colonoscopy today. Hemoglobin currently 8.2, bicarb 24, BUN 25, creatinine 1.05. Blood sugars controlled. 05/13/2022 Hemoglobin 7.9 ,scheduled for her colonoscopy tomorrow, labs pending. Anticoagulation remains on hold. Denies chest pain, palpitations or increased shortness of breath. 05/14/2022 hemoglobin 8.2, platelets 151, renal function improving with BUN 18, creatinine down to 1.08. Bicarb 43, patient used her BiPAP last night and has been advised to use whenever she naps throughout the day. Vital signs stable. Denies chest pain, palpitations or shortness of breath. Colonoscopy pending. 05/15/2022: Completed EGD and colonoscopy reporting very small nonbleeding ulceration of the intra-abdominal, biopsied; a few small external hemorrhoids, right colon small polyp, diverticular changes, no evidence of any GI bleed with anemia presumed to have resulted from antral ulceration or diverticular bleeding previously. Significant clinical improvement .Patient will be discharged to subacute rehab today in a stable condition with guarded prognosis pending final DC recommendations including clearance to resume anticoagulation per Gen. surgery and confirmation of diuretic dose at DC per cardiology. 05/16/2022: Patient is discharged after awaiting authorization from her insurance to go to ECF. Vitals are stable. Hemoglobin yesterday was 8.1 and stable. No chemistries pending this time. She denies any chest pains pressures or shortness of breath just weakness is looking for to going to ECF. Objective - Vital Signs Vital signs: Vital Signs Temp 98.1 F 05/16/22 11:06 Pulse 68 05/16/22 11:06 Resp 20 05/16/22 11:06 BP 118/54 05/16/22 11:06 Pulse Ox 100 05/16/22 11:06 FiO2 35 05/16/22 07:39 Intake & Output 05/15/22 05/16/22 05/16/22 18:59 06:59 18:59 Intake Total 236 Output Total 350 600 Balance -114 -600 Intake: Oral 236 Output: Urine 350 600 Other: Voiding Method External Catheter External Catheter External Catheter # Bowel Movements 0 - Exam GENERAL: Morbidly obese female in no acute distress. She has oxygen at 2 L/m via nasal cannula, BiPAP at bedside NECK: Normal range of motion, supple without lymphadenopathy or JVD, no thyromegaly LUNGS: Breath sounds coarse with poor air exchange consistent with her underlying scarring no basilar crackles suggest acute CHF at this time. No wheezes rales or rhonchi. HEART: Regular rate and rhythm without rubs or gallops.S1S2 Normal, 1/6 systolic murmur noted at the right sternal border ABDOMEN: Soft, nontender, normoactive bowel sounds. No guarding, no rebound. No masses appreciated. EXTREMITIES: Normal range of motion, no pitting or edema. No clubbing or cyanosis. NEUROLOGICAL: Cranial nerves II through XII grossly intact. Normal speech, gait untestable PSYCH: Normal mood, normal affect. SKIN: Warm, Dry, normal turgor, no rashes or lesions noted. - Labs CBC & Chem 7: 05/15/22 11:08 05/14/22 09:32 Labs: Abnormal Lab Results - Last 24 Hours (Table) 05/15/22 05/15/22 05/15/22 Range/Units 11:08 16:36 20:21 RBC 2.74 L (3.80-5.40) m/uL Hgb 8.1 L (11.4-16.0) gm/dL Hct 25.5 L (34.0-46.0) % RDW 16.9 H (11.5-15.5) % Plt Count 135 L (150-450) k/uL POC Glucose (mg/dL) 256 H 249 H (70-110) mg/dL 05/16/22 05/16/22 Range/Units 06:54 11:47 RBC (3.80-5.40) m/uL Hgb (11.4-16.0) gm/dL Hct (34.0-46.0) % RDW (11.5-15.5) % Plt Count (150-450) k/uL POC Glucose (mg/dL) 197 H 207 H (70-110) mg/dL Assessment and Plan (1) Acute on chronic anemia Current Visit: No Status: Acute Code(s): D64.9 - ANEMIA, UNSPECIFIED SNOMED Code(s): 457971406 (2) Chronic diastolic (congestive) heart failure Current Visit: Yes Status: Acute Code(s): I50.32 - CHRONIC DIASTOLIC (CONGESTIVE) HEART FAILURE SNOMED Code(s): 305558487 (3) Atrial fibrillation Current Visit: No Status: Acute Code(s): I48.91 - UNSPECIFIED ATRIAL FIBRILLATION SNOMED Code(s): 14066583 (4) Coronary artery disease with history of coronary revascularization Current Visit: No Status: Acute Code(s): I25.10 - ATHSCL HEART DISEASE OF [place] CORONARY ARTERY W/O ANG PCTRS; Z98.61 - CORONARY ANGIOPLASTY STATUS SNOMED Code(s): 705129807 (5) History of hyperlipidemia Current Visit: No Status: Acute Code(s): Z86.39 - PERSONAL HISTORY OF ENDO, NUTRITIONAL AND METABOLIC DISEASE SNOMED Code(s): 684281166 (6) History of hypertension Current Visit: No Status: Acute Code(s): Z86.79 - PERSONAL HISTORY OF OTHER DISEASES OF THE CIRCULATORY SYSTEM SNOMED Code(s): 375992430 (7) History of hypothyroidism Current Visit: No Status: Acute Code(s): Z86.39 - PERSONAL HISTORY OF ENDO, NUTRITIONAL AND METABOLIC DISEASE SNOMED Code(s): 280920728 (8) GI bleed Current Visit: Yes Status: Acute Code(s): K92.2 - GASTROINTESTINAL HEMORRHAGE, UNSPECIFIED SNOMED Code(s): 09409864 (9) Antral ulcer Current Visit: Yes Status: Acute Code(s): K25.9 - GASTRIC ULCER, UNSP ACUTE OR CHRONIC, W/O HEMOR OR PERF SNOMED Code(s): 2480785378903 (10) Diverticula of colon Current Visit: Yes Status: Acute Code(s): K57.30 - DVRTCLOS OF LG INT W/O PERFORATION OR ABSCESS W/O BLEEDING SNOMED Code(s): 673771373 Plan: She is medically clear for discharge. Insurance authorization for her to go to [facility]. An sacralization be restarted. Please review the discharge summary dated 05/15/2022 for further information.
[2022-05-16 17:09] LABS: Glucose,Whole Blood 223 mg/dL (70-110)
[2022-05-16] MEDS: ACETAMINOPHEN TAB 325 MG TAB PO PRN (20:16)
[2022-05-16] MEDS: ATORVASTATIN 40 MG TAB PO SCH (20:18)
[2022-05-16 20:37] LABS: Glucose,Whole Blood 211 mg/dL (70-110)
[2022-05-16] MEDS: MIRTAZAPINE 15 MG TAB PO SCH (23:48)
[2022-05-17] MEDS: LEVOTHYROXINE 50 MCG TAB PO SCH (05:58)
[2022-05-17] MEDS: PANTOPRAZOLE 40 MG TABLET PO SCH (05:58)
[2022-05-17 06:59] LABS: Glucose,Whole Blood 161 mg/dL (70-110)
[2022-05-17] MEDS: LACTATED RINGERS 1,000 ML IV SCH (07:26)
[2022-05-17] MEDS: INSULIN ASPART (NovoLOG) 100 UNIT/ML VIAL SQ SCH ×4 (07:27→22:04)
[2022-05-17] MEDS: INSULIN DETEMIR (LEVEMIR) 100 UNIT/ML SYR SQ SCH (07:27)
[2022-05-17] MEDS: DOCUSATE 100 MG CAP PO SCH (07:28)
[2022-05-17] MEDS: POTASSIUM CHLORIDE ER 20 MEQ TAB.ER PO SCH (07:28)
[2022-05-17] MEDS: METOPROLOL TARTRATE 50 MG TAB PO SCH ×3 (07:28→22:04)
[2022-05-17] MEDS: GABAPENTIN 300 MG CAP PO SCH ×2 (07:28→22:03)
[2022-05-17] MEDS: ISOSORBIDE MONONITRATE ER 30 MG TAB.ER.24H PO SCH (07:28)
[2022-05-17] MEDS: FUROSEMIDE 40 MG TAB PO SCH ×2 (07:28→15:41)
[2022-05-17] MEDS: OXYBUTYNIN CHLORIDE 5 MG TAB PO SCH ×2 (07:28→22:04)
--- NOTE | 2022-05-17 11:02 | P.PN ---
Subjective Progress Note Date: 05/17/22 Principal diagnosis: Antral ulcer Patient doing well today. Denies abdominal pain. No rectal bleeding or melena. Objective - Vital Signs Vital signs: Vital Signs Temp 97.8 F 05/17/22 05:00 Pulse 91 05/17/22 07:25 Resp 18 05/17/22 05:00 BP 107/61 05/17/22 07:25 Pulse Ox 99 05/17/22 05:00 FiO2 35 05/17/22 03:19 Intake & Output 05/16/22 05/17/22 05/17/22 18:59 06:59 18:59 Intake Total 2250 Output Total 900 700 Balance 1350 -700 Weight 89 kg 78 kg Intake: Oral 2250 Output: Urine 900 700 Other: Voiding Method External Catheter # Voids 2 - Exam Abdomen: Soft, nontender, nondistended - Labs CBC & Chem 7: 05/15/22 11:08 05/14/22 09:32 Labs: Abnormal Lab Results - Last 24 Hours (Table) 05/16/22 05/16/22 05/16/22 Range/Units 11:47 17:06 20:36 POC Glucose (mg/dL) 207 H 223 H 211 H (70-110) mg/dL 05/17/22 Range/Units 06:52 POC Glucose (mg/dL) 161 H (70-110) mg/dL Assessment and Plan (1) Acute on chronic anemia Narrative/Plan: Patient doing well at this time. Continue antiacids. Continue regular diet. Await placement. Current Visit: No Status: Acute Code(s): D64.9 - ANEMIA, UNSPECIFIED SNOMED Code(s): 150538481
--- NOTE | 2022-05-17 11:36 | P.PN ---
Subjective This is a 72-year-old female admitted from [facility] subacute rehab with multifactorial anemia chronic hypoxic respiratory failure,wears 2.5 L nasal cannula O2 at home. Discharged 04/22/2022 to subacute rehab for acute on chronic CHF Recent COVID-19 pneumonia January 2022 with chronic fibrotic changes secondary to the Covid infection a chronic anemia with negative Hemoccult Right lower extremity cellulitis, it is since resolved at the [facility]. She was scheduled to receive 1 unit packed red blood cells when her hemoglobin 27.06 on Wednesday of this past week. Staff were unable to schedule an and send her to the ER yesterday for transfusion. She is admitted for this multifactorial anemia. She is anticoagulated on Elequis and his concerns of occult GI bleed. Currently Faith feels a improved since she received 1 unit packed red blood cells. She denies any significant chest pains or pressures. Has shortness of breath only when she exerts herself. She is quite morbidly obese. She denies any nausea vomiting. She does report dark stools since her Covid infection in January. May 10, 2022: patient is resting comfortably in her room. She is status post her second unit of packed red blood cells. She is feeling better.Vital signs including blood pressure and temperature have remained stable. She remains on 2 L of oxygen via nasal cannula.Chemistries this morning showed a BUN of 36 [place] creatinine of 1.12. Her CO2 is 41. Glucose has remained stable.She remains on IV Lasix for diuresis due to congestive heart failure. She is atrial fibrillation. Her anticoagulation is on cold for concerns of G.I. bleeding. She has a history of a laparoscopic banding procedure. 05/11/2022 72-year-old female well-known to my practice recently admitted from [facility] subacute rehab facility with anemia and chronic hypoxic respiratory failure currently using 2.5 L nasal O2 at home patient was discharged 04/22/2022 to subacute rehab for acute on chronic CHF recent COVID-19 pneumonia January 2022, chronic fibrin changes secondary to Coumadin infection and chronic anemia with Hemoccult. Patient had a second unit of packed red cells on 05/10/2022 was feeling better. Patient remained on 2 L reason nasal cannula. Patient under went EGD and colonoscopy earlier today 05/12/2022 diuresing well on Lasix IV push with 24-hour I&O reflecting a nega tive fluid balance. anticoagulation on hold, nothing by mouth, scheduled for EGD and colonoscopy today. Hemoglobin currently 8.2, bicarb 24, BUN 25, creatinine 1.05. Blood sugars controlled. 05/13/2022 Hemoglobin 7.9 ,scheduled for her colonoscopy tomorrow, labs pending. Anticoagulation remains on hold. Denies chest pain, palpitations or increased shortness of breath. 05/14/2022 hemoglobin 8.2, platelets 151, renal function improving with BUN 18, creatinine down to 1.08. Bicarb 43, patient used her BiPAP last night and has been advised to use whenever she naps throughout the day. Vital signs stable. Denies chest pain, palpitations or shortness of breath. Colonoscopy pending. 05/15/2022: Completed EGD and colonoscopy reporting very small nonbleeding ulceration of the intra-abdominal, biopsied; a few small external hemorrhoids, right colon small polyp, diverticular changes, no evidence of any GI bleed with anemia presumed to have resulted from antral ulceration or diverticular bleeding previously. Significant clinical improvement .Patient will be discharged to subacute rehab today in a stable condition with guarded prognosis pending final DC recommendations including clearance to resume anticoagulation per Gen. surgery and confirmation of diuretic dose at DC per cardiology. 05/16/2022: Patient is discharged after awaiting authorization from her insurance to go to [facility]. Vitals are stable. Hemoglobin yesterday was 8.1 and stable. No chemistries pending this time. She denies any chest pains pressures or shortness of breath just weakness is looking for to going to ECF. 05/17/2022: Patient remained stable. Patient has been discharged to [facility] on the [place] and is pending insurance authorization transfer. Objective - Vital Signs Vital signs: Vital Signs Temp 97.8 F 05/17/22 05:00 Pulse 91 05/17/22 07:25 Resp 18 05/17/22 05:00 BP 107/61 05/17/22 07:25 Pulse Ox 99 05/17/22 05:00 FiO2 35 05/17/22 03:19 Intake & Output 05/16/22 05/17/22 05/17/22 18:59 06:59 18:59 Intake Total 2250 Output Total 900 700 Balance 1350 -700 Weight 89 kg 78 kg Intake: Oral 2250 Output: Urine 900 700 Other: Voiding Method External Catheter External Catheter # Voids 2 - Exam GENERAL: Morbidly obese female in no acute distress. She has oxygen at 2 L/m via nasal cannula, BiPAP at bedside NECK: Normal range of motion, supple without lymphadenopathy or JVD, no thyromegaly LUNGS: Breath sounds coarse with poor air exchange consistent with her underlying scarring no basilar crackles suggest acute CHF at this time. No wheezes rales or rhonchi. HEART: Regular rate and rhythm without rubs or gallops.S1S2 Normal, 1/6 systolic murmur noted at the right sternal border ABDOMEN: Soft, nontender, normoactive bowel sounds. No guarding, no rebound. No masses appreciated. EXTREMITIES: Normal range of motion, no pitting or edema. No clubbing or cyanosis. NEUROLOGICAL: Cranial nerves II through XII grossly intact. Normal speech, gait untestable PSYCH: Normal mood, normal affect. SKIN: Warm, Dry, normal turgor, no rashes or lesions noted. - Labs CBC & Chem 7: 05/15/22 11:08 05/14/22 09:32 Labs: Abnormal Lab Results - Last 24 Hours (Table) 05/16/22 05/16/22 05/16/22 Range/Units 11:47 17:06 20:36 POC Glucose (mg/dL) 207 H 223 H 211 H (70-110) mg/dL 05/17/22 Range/Units 06:52 POC Glucose (mg/dL) 161 H (70-110) mg/dL Assessment and Plan (1) Acute on chronic anemia Current Visit: No Status: Acute Code(s): D64.9 - ANEMIA, UNSPECIFIED SNOM ED Code(s): 011015378 (2) Chronic diastolic (congestive) heart failure Current Visit: Yes Status: Acute Code(s): I50.32 - CHRONIC DIASTOLIC (CONGESTIVE) HEART FAILURE SNOMED Code(s): 699586203 (3) Atrial fibrillation Current Visit: No Status: Acute Code(s): I48.91 - UNSPECIFIED ATRIAL FIBRILLATION SNOMED Code(s): 00517773 (4) Coronary artery disease with history of coronary revascularization Current Visit: No Status: Acute Code(s): I25.10 - ATHSCL HEART DISEASE OF [place] CORONARY ARTERY W/O ANG PCTRS; Z98.61 - CORONARY ANGIOPLASTY STATUS SNOMED Code(s): 276819775 (5) History of hyperlipidemia Current Visit: No Status: Acute Code(s): Z86.39 - PERSONAL HISTORY OF ENDO, NUTRITIONAL AND METABOLIC DISEASE SNOMED Code(s): 627735526 (6) History of hypertension Current Visit: No Status: Acute Code(s): Z86.79 - PERSONAL HISTORY OF OTHER DISEASES OF THE CIRCULATORY SYSTEM SNOMED Code(s): 624656925 (7) History of hypothyroidism Current Visit: No Status: Acute Code(s): Z86.39 - PERSONAL HISTORY OF ENDO, NUTRITIONAL AND METABOLIC DISEASE SNOMED Code(s): 892632161 (8) GI bleed Current Visit: Yes Status: Acute Code(s): K92.2 - GASTROINTESTINAL HEMORRHAGE, UNSPECIFIED SNOMED Code(s): 10577954 (9) Antral ulcer Current Visit: Yes Status: Acute Code(s): K25.9 - GASTRIC ULCER, UNSP ACUTE OR CHRONIC, W/O HEMOR OR PERF SNOMED Code(s): 7149976222244 (10) Diverticula of colon Current Visit: Yes Status: Acute Code(s): K57.30 - DVRTCLOS OF LG INT W/O PERFORATION OR ABSCESS W/O BLEEDING SNOMED Code(s): 446320068 Plan: She is medically clear for discharge. Insurance authorization for her to go to [facility]. Expect her to go tomorrow Please review the discharge summary dated 05/15/2022 for further information.
[2022-05-17 12:14] LABS: Glucose,Whole Blood 211 mg/dL (70-110)
[2022-05-17 17:18] LABS: Glucose,Whole Blood 237 mg/dL (70-110)
[2022-05-17 20:08] LABS: Glucose,Whole Blood 221 mg/dL (70-110)
[2022-05-17 20:21] VITALS: RESP 18
[2022-05-17] MEDS: ATORVASTATIN 40 MG TAB PO SCH (22:03)
[2022-05-17] MEDS: MIRTAZAPINE 15 MG TAB PO SCH (22:04)
[2022-05-17] MEDS: ACETAMINOPHEN TAB 325 MG TAB PO PRN (22:07)
[2022-05-18] MEDS: LEVOTHYROXINE 50 MCG TAB PO SCH (05:51)
[2022-05-18] MEDS: PANTOPRAZOLE 40 MG TABLET PO SCH (05:51)
[2022-05-18] MEDS: LACTATED RINGERS 1,000 ML IV SCH (06:11)
[2022-05-18 07:15] LABS: Glucose,Whole Blood 181 mg/dL (70-110)
[2022-05-18] MEDS: INSULIN DETEMIR (LEVEMIR) 100 UNIT/ML SYR SQ SCH (09:25)
[2022-05-18] MEDS: INSULIN ASPART (NovoLOG) 100 UNIT/ML VIAL SQ SCH ×2 (09:25→12:50)
[2022-05-18] MEDS: OXYBUTYNIN CHLORIDE 5 MG TAB PO SCH (09:26)
[2022-05-18] MEDS: GABAPENTIN 300 MG CAP PO SCH (09:26)
[2022-05-18] MEDS: FUROSEMIDE 40 MG TAB PO SCH (09:26)
[2022-05-18] MEDS: ISOSORBIDE MONONITRATE ER 30 MG TAB.ER.24H PO SCH (09:26)
[2022-05-18] MEDS: POTASSIUM CHLORIDE ER 20 MEQ TAB.ER PO SCH (09:26)
[2022-05-18] MEDS: METOPROLOL TARTRATE 50 MG TAB PO SCH ×2 (09:26→12:50)
[2022-05-18] MEDS: DOCUSATE 100 MG CAP PO SCH (09:26)
[2022-05-18 11:47] VITALS: BP 135/72; PULSE 83; TEMP 97.8
[2022-05-18 12:06] LABS: Glucose,Whole Blood 223 mg/dL (70-110)
--- NOTE | 2022-05-18 13:14 | P.PN ---
Subjective Progress Note Date: 05/18/22 CHIEF COMPLAINT: Anemia HISTORY OF PRESENT ILLNESS: Patient is status post EGD and colonoscopy results showing a small antral ulcer, diverticulosis and right colon polyp. Patient denies abdominal pain. She is tolerating diet. She's had no further black stools. Hemoglobin stable at 8.1 on 05/15. Patient is awaiting ECF placement Patient seen and examined with Dr. haile PHYSICAL EXAM: VITAL SIGNS: Reviewed. GENERAL: Well-developed in no acute distress. HEENT: No sclera icterus. Extraocular movements grossly intact. Moist buccal mucosa. Head is atraumatic, normocephalic. ABDOMEN: Soft. Obese. Nondistended. Nontender. NEUROLOGIC: Alert and oriented. Cranial nerves II through XII grossly intact. ASSESSMENT: 1. Anemia with history of black stools. Status post EGD and colonoscopy with small antral ulcer, diverticulosis and right colon polyp 2. Iron deficiency anemia PLAN: -Patient is stable for discharge per surgical standpoint -Okay to resume Eliquis -Continue PPI Physician Chemical Laboratory Tester note has been reviewed by physician. Signing provider agrees with the documented findings, assessment, and plan of care. Objective - Vital Signs Vital signs: Vital Signs Temp 97.8 F 05/18/22 11:30 Pulse 83 05/18/22 11:30 Resp 18 05/18/22 11:30 BP 135/72 05/18/22 11:30 Pulse Ox 99 05/18/22 11:30 FiO2 35 05/18/22 07:15 Intake & Output 05/17/22 05/18/22 05/18/22 18:59 06:59 18:59 Output Total 1450 1000 1600 Balance -1450 -1000 -1600 Weight 78 kg 92.5 kg Output: Urine 1450 1000 1600 Other: Voiding Method External Catheter External Catheter Incontinent External Catheter - Labs CBC & Chem 7: 05/15/22 11:08 05/14/22 09:32 Labs: Abnormal Lab Results - Last 24 Hours (Table) 05/17/22 05/17/22 05/18/22 Range/Units 17:08 19:59 07:10 POC Glucose (mg/dL) 237 H 221 H 181 H (70-110) mg/dL 05/18/22 Range/Units 12:02 POC Glucose (mg/dL) 223 H (70-110) mg/dL
--- NOTE | 2022-05-18 14:51 | P.PN ---
Subjective Progress Note Date: 05/18/22 Progress Note Date: 05/11/22 Principal diagnosis: 72-year-old female well-known to my practice recently admitted from [facility] subacute rehab facility with anemia and chronic hypoxic respiratory failure currently using 2.5 L nasal O2 at home patient was discharged 04/22/2022 to subacute rehab for acute on chronic CHF recent COVID-19 pneumonia January 2022, chronic fibrin changes secondary to Coumadin infection and chronic anemia with Hemoccult. Patient had a second unit of packed red cells on 05/10/2022 was feeling better. Patient remained on 2 L reason nasal cannula. Patient under went EGD and colonoscopy earlier today 05/12/2022 diuresing well on Lasix IV push with 24-hour I&O reflecting a negative fluid balance. anticoagulation on hold, nothing by mouth, scheduled for EGD and colonoscopy today. Hemoglobin currently 8.2, bicarb 24, BUN 25, creatinine 1.05. Blood sugars controlled. 05/13/2022 Hemoglobin 7.9 ,scheduled for her colonoscopy tomorrow, labs pending. Anticoagulation remains on hold. Denies chest pain, palpitations or increased shortness of breath. 05/14/2022 hemoglobin 8.2, platelets 151, renal function improving with BUN 18, creatinine down to 1.08. Bicarb 43, patient used her BiPAP last night and has been advised to use whenever she naps throughout the day. Vital signs stable. Denies chest pain, palpitations or shortness of breath. Colonoscopy pending. 05/15/2022: Completed EGD and colonoscopy reporting very small nonbleeding ulceration of the intra-abdominal, biopsied; a few small external hemorrhoids, right colon small polyp, diverticular changes, no evidence of any GI bleed with anemia presumed to have resulted from antral ulceration or diverticular bleeding previously. Significant clinical improvement .Patient will be discharged to subacute rehab today in a stable condition with guarded prognosis pending final DC recommendations including clearance to resume anticoagulation per Gen. surg amber and confirmation of diuretic dose at DC per cardiology. 05/16/2022: Patient is discharged after awaiting authorization from her insurance to go to ECF. Vitals are stable. Hemoglobin yesterday was 8.1 and stable. No chemistries pending this time. She denies any chest pains pressures or shortness of breath just weakness is looking for to going to ECF. 05/17/2022: Patient remained stable. Patient has been discharged to [facility] on the [address] and is pending insurance authorization transfer. 05/18/2022 vital signs stable, no further bleeding/no black stools. Tolerating diet with no nausea vomiting or abdominal pain. authorization received for subacute rehab.-Discharge planning in progress. Objective - Vital Signs Vital signs: Vital Signs Temp 97.8 F 05/18/22 11:30 Pulse 83 05/18/22 11:30 Resp 18 05/18/22 11:30 BP 135/72 05/18/22 11:30 Pulse Ox 99 05/18/22 11:30 FiO2 35 05/18/22 07:15 Intake & Output 05/17/22 05/18/22 05/18/22 18:59 06:59 18:59 Output Total 1450 1000 1600 Balance -1450 -1000 -1600 Weight 78 kg 92.5 kg Output: Urine 1450 1000 1600 Other: Voiding Method External Catheter External Catheter Incontinent External Catheter - Exam - Exam General: Alert and oriented times 3, sitting up in bed,no acute distress.] Neck: [Supple, no JVD. Cardiac: [Heart regular in rate and rhythm. No S3. No S4. No clicks, rubs. No murmur.] Lungs: CTA,Bilateral air entry with bilateral bases diminished. Abdomen: Soft, nontender, obese, positive Bowel sounds. No guarding. Extremes: [No edema no cyanosis,normal pulses] Skin: Warm and dry,No rash. - Labs CBC & Chem 7: 05/15/22 11:08 05/14/22 09:32 Labs: Abnormal Lab Results - Last 24 Hours (Table) 05/17/22 05/17/22 05/18/22 Range/Units 17:08 19:59 07:10 POC Glucose (mg/dL) 237 H 221 H 181 H (70-110) mg/dL 05/18/22 Range/Units 12:02 POC Glucose (mg/dL) 223 H (70-110) mg/dL Assessment and Plan Assessment: (1) Anemia, status post 2 units packed RBCs Current Visit: Yes Status: Acute Code(s): D64.9 - ANEMIA, UNSPECIFIED SNOMED Code(s): 097112159 (2) Chronic diastolic (congestive) heart failure Current Visit: Yes Status: Acute Code(s): I50.32 - CHRONIC DIASTOLIC (CONGESTIVE) HEART FAILURE SNOMED Code(s): 936082419 (3) Pulmonary edema Current Visit: Yes Status: Acute Code(s): J81.1 - CHRONIC PULMONARY EDEMA SNOMED Code(s): 98317864 (4) Acute on chronic anemia, iron deficient. Status post EGD and colonoscopy reporting small antral ulcer, diverticulosis and right colon polyp Current Visit: No Status: Acute Code(s): D64.9 - ANEMIA, UNSPECIFIED SNOMED Code(s): 435165556 (5) Acute on chronic diastolic (congestive) heart failure Current Visit: No Status: Acute Code(s): I50.33 - ACUTE ON CHRONIC DIASTOLIC (CONGESTIVE) HEART FAILURE SNOMED Code(s): 885145334 (6) Atrial fibrillation, chronic Current Visit: No Status: Acute Code(s): I48.91 - UNSPECIFIED ATRIAL FIBRILLATION SNOMED Code(s): 48187137 (7) COVID Current Visit: No Status: Acute Code(s): U07.1 - COVID-19 SNOMED Code(s): 088011908 (8) CAD (9) mild aortic stenosis, severe tricuspid regurgitation (10) diabetes mellitus, A1c 6.9 Plan: Continue on current medication regime ,monitoring and symptomatic treatment. Authorization received for discharge to subacute rehab. Discharge in progress. The impression and plan of care has been dictated as directed. : I performed a history and examination of this patient, discussed the same with the dictator. I agree with the dictator's note ,documented as a scribe. Any additional findings or plans will be noted.
[2022-05-18] MEDS ORDERED: APIXABAN 5 MG TAB PO SCH (21:00)
== END 2022-05-18 15:18 | DRG 377 ==
LOC: EC 11:10 → 4SSUR 14:10 → 3SCARD 14:40 → 5NMEDONC 05-15 23:03
PROVIDERS: ADMIT Family Medicine; ATTEND Family Medicine
PROC: 30233N1 Transfusion of Nonautologous Red Blood Cells into Peripheral Vein, Percutaneous Approach (ICD-10-PCS; 2022-05-09)
PROC: 0DBF8ZX Excision of Right Large Intestine, Via Natural or Artificial Opening Endoscopic, Diagnostic (ICD-10-PCS; principal; 2022-05-14 07:50)
PROC: 0DB78ZX Excision of Stomach, Pylorus, Via Natural or Artificial Opening Endoscopic, Diagnostic (ICD-10-PCS; principal; 2022-05-14 07:50)
DX: K57.31 Diverticulosis of large intestine without perforation or abscess with bleeding (principal); I50.33 Acute on chronic diastolic (congestive) heart failure; J96.92 Respiratory failure, unspecified with hypercapnia; I13.0 Hypertensive heart and chronic kidney disease with heart failure and stage 1 through stage 4 chronic kidney disease, or unspecified chronic kidney disease; I48.21 Permanent atrial fibrillation; J96.11 Chronic respiratory failure with hypoxia; D50.9 Iron deficiency anemia, unspecified; E03.9 Hypothyroidism, unspecified; E11.22 Type 2 diabetes mellitus with diabetic chronic kidney disease; E66.01 Morbid (severe) obesity due to excess calories; Z68.37 Body mass index [BMI] 37.0-37.9, adult; E78.5 Hyperlipidemia, unspecified; F32.A Depression, unspecified; G47.33 Obstructive sleep apnea (adult) (pediatric); N18.30 Chronic kidney disease, stage 3 unspecified; D63.1 Anemia in chronic kidney disease; I08.2 Rheumatic disorders of both aortic and tricuspid valves; I25.10 Atherosclerotic heart disease of native coronary artery without angina pectoris; M10.9 Gout, unspecified; I27.20 Pulmonary hypertension, unspecified; R21 Rash and other nonspecific skin eruption; G89.29 Other chronic pain; K64.4 Residual hemorrhoidal skin tags; K25.9 Gastric ulcer, unspecified as acute or chronic, without hemorrhage or perforation; H35.30 Unspecified macular degeneration; H54.7 Unspecified visual loss; K63.5 Polyp of colon; Z63.4 Disappearance and death of family member; Z79.01 Long term (current) use of anticoagulants; Z79.4 Long term (current) use of insulin; Z79.890 Hormone replacement therapy; Z79.899 Other long term (current) drug therapy; Z82.49 Family history of ischemic heart disease and other diseases of the circulatory system; Z83.3 Family history of diabetes mellitus; Z86.16 Personal history of COVID-19; Z28.310 Unvaccinated for COVID-19; Z28.21 Immunization not carried out because of patient refusal; Z88.6 Allergy status to analgesic agent; Z88.0 Allergy status to penicillin; Z87.01 Personal history of pneumonia (recurrent)
CPT/HCPCS: 36415; 43239; 45385; 71046; 80048; 80053; 82607; 82728; 82746; 83036; 83540; 83550; 83605; 83735; 84484; 85025; 85027; 85610; 85730; 86850; 86900; 86901; 86920; 88305; 94660; 94760; 96374; 99291

== ENCOUNTER 2022-05-22 04:43 | Inpatient (IN) | payer MEDICARE, OTHER ==
[2022-05-22] MEDS ORDERED: PANTOPRAZOLE 40 MG/10 ML VIAL IVP STA (05:07)
[2022-05-22 05:46] LABS: Anisocytosis Slight; Basophils % (A) 0 %; Eosinophils # (A) 0.2 k/uL (0-0.7); Eosinophils % (A) 3 %; HCT 22.3 % (34.0-46.0); Hypochromasia Marked; Lymphocytes # (A) 1.2 k/uL (1.0-4.8); Lymphocytes % (A) 16 %; MCH 28.6 pg (25.0-35.0); MCHC 31.3 g/dL (31.0-37.0); MCV 91.2 fL (80.0-100.0); Mean Platelet Volume 9.3; Monocytes # (A) 0.3 k/uL (0-1.0); Monocytes % (A) 5 %; Neutrophils # (A) 5.5 k/uL (1.3-7.7); Neutrophils % (A) 74 %; Platelet Count 170 k/uL (150-450); RBC 2.44 m/uL (3.80-5.40); RDW 16.5 % (11.5-15.5); WBC 7.4 k/uL (3.8-10.6)
[2022-05-22 05:53] LABS: INR 1.2 (<1.2); Partial Thromboplastin Time 24.4 sec (22.0-30.0); Prothrombin Time 12.4 sec (9.0-12.0)
[2022-05-22 05:55] LABS: Albumin 2.7 g/dL (3.5-5.0); Calcium 8.1 mg/dL (8.4-10.2); Potassium 5.3 mmol/L (3.5-5.1); Total Bilirubin 0.5 mg/dL (0.2-1.3); Total Protein 5.3 g/dL (6.3-8.2)
--- NOTE | 2022-05-22 06:07 | ED ---
General Adult HPI - General Chief complaint: Recheck/Abnormal Lab/Rx Stated complaint: Abnormal labs Time Seen by Provider: 05/22/22 05:03 Source: patient, EMS, RN notes reviewed, old records reviewed Mode of arrival: EMS Limitations: no limitations - History of Present Illness Initial comments: Patient is a 72-year-old female with past medical history remarkable for atrial fibrillation on eliquis, CAD, diabetes, hypertension, hyperlipidemia who prese nts to the emergency Department after being sent from her nursing facility over concern for decreased hemoglobin. Patient was recently admitted for similar complaints. There is concern for GI bleeding at that time. Does have a history of chronic anemia. Denies any known active bleeding, but was told by nursing staff that her stool seemed darker at the facility. Denies any abdominal pain. Denies any chest pain or shortness of breath. Denies diarrhea. Denies dysuria or hematuria. Denies any hematemesis, nausea, vomiting. Denies any chest pain or shortness of breath. She is typically on nasal cannula oxygen and states she is not more short of breath than normal. Denies any chest pain. His no other acute complaints at this time. Denies any bedsores. Presents for further evaluation. Scoping done on last admission showed an old antral ulcer, as well as diverticulosis but no signs of acute infection or acute bleed. - Related Data Home Medications Medication Instructions Recorded Confirmed Atorvastatin [Lipitor] 40 mg PO HS@209908/10/16 05/08/22 Isosorbide Mononitrate [Isosorbide 30 mg PO DAILY@0900 08/10/16 05/08/22 Mononitrate ER] Levothyroxine Sodium [Tirosint] 50 mcg PO DAILY@0600 08/10/16 05/08/22 Oxybutynin Chloride 5 mg PO BID@09,209908/10/16 05/08/22 Apixaban [Eliquis] 5 mg PO BID@0900,209904/12/22 05/08/22 Metoprolol Tartrate [Lopressor] 50 mg PO TID@,,04/12/22 05/08/22 Mirtazapine [Remeron] 15 mg PO HS@209904/12/22 05/08/22 Acetaminophen Tab [Tylenol] 650 mg PO Q6H PRN 05/08/22 05/08/22 Docusate [Colace] 100 mg PO DAILY@0900 05/08/22 05/08/22 Furosemide [Lasix] 40 mg PO DAILY@0600 05/08/22 05/08/22 Insulin Glargine-Yfgn [Semglee 50 units SQ DAILY@0900 05/08/22 05/08/22 (Yfgn) Pen] Insulin Lispro [humaLOG Kwikpen] 5 unit SQ AC-TID@,,05/08/22 05/08/22 Insulin Lispro [humaLOG Kwikpen] See Protocol SQ ACHS@,,,05/08/22 05/08/22 Potassium Chloride ER [K-Dur 20] 20 meq PO DAILY@0900 05/08/22 05/08/22 Previous Rx's Medication Instructions Recorded SILVER sulfADIAZINE CREAM 1 applic TOPICAL DAILY each 04/20/22 [Silvadene Cream] Furosemide [Lasix] 40 mg PO BID@0900,1600 tab 05/15/22 Gabapentin [Neurontin] 300 mg PO BID@0900,2100 #6 cap 05/15/22 Pantoprazole [Protonix] 40 mg PO DAILY@0600 tab 05/15/22 Allergies Allergy/AdvReac Type Severity Reaction Status Date / Time ibuprofen [From Motrin] Allergy Rash/Hives Verified 05/22/22 04:53 Penicillins Allergy Anaphylaxis Verified 05/22/22 04:53 Review of Systems ROS Statement: Those systems with pertinent positive or pertinent negative responses have been documented in the HPI. Review of Systems: CONST: Denies fever EYES: Denies blurry vision ENT: Denies nasal congestion C/V: Denies Chest pain RESP: Denies shortness of breath GI: Denies abdominal pain : Denies dysuria SKIN: Denies rash. MSK: Denies joint pain. NEURO: Denies headache ROS Other: All systems not noted in ROS Statement are negative. Past Medical History Past Medical History: Atrial Fibrillation, Coronary Artery Disease (CAD), Diabetes Mellitus, Eye Disorder, Hyperlipidemia, Hypertension, Osteoarthritis (OA), Pneumonia, Renal Disease, Sleep Apnea/CPAP/BIPAP, Thyroid Disorder Additional Past Medical History / Comment(s): Pt recently admitted to [facility] on 02/12/22 with covic pneumonia/sepsis, acute hypoxic respiratory failure/now on home oxygen ATC, new A fib with RVR. Other hx: IDDM type II, neuropathy bilateral feet, L eye retinal bleed/lasik eye surgery, R eye cataract, bilateral eye macular degeneration/gets injections/poor vision, CKD stage III, anemia, UTI/sepsis, bilateral leg lymphedema/currently has "rash" R lower leg/one spot on L lower leg, FLORES/does not have cpap machine at this time, diverticulitis, gout, chronic back pain, rheumatic fever, hypothyroid. History of Any Multi-Drug Resistant Organisms: None Reported Past Surgical History: Bariatric Surgery, Section, Cholecystectomy, Coronary Bypass/CABG, Heart Catheterization, Hysterectomy, Tonsillectomy Additional Past Surgical History / Comment(s): A 2 vessel CABG in 1996, bilateral carpal tunnel release, lap band, L eye laser surgery, Past Anesthesia/Blood Transfusion Reactions: No Reported Reaction Past Psychological History: Depression Smoking Status: Never smoker Past Alcohol Use History: None Reported Past Drug Use History: None Reported - Past Family History Father Family Medical History: Cancer, Coronary Artery Disease (CAD), Diabetes Mellitus Additional Family Medical History / Comment(s): Prostate cancer Mother Family Medical History: Cancer Additional Family Medical History / Comment(s): Bone cancer. General Exam - General Exam Comments Initial Comments: General: Appears in no acute distress. HEAD: Normal with no signs of head trauma. EYES: PERRLA, EOMI, conjunctiva normal, no discharge. ENT: Hearing grossly intact, normal oropharynx. RESPIRATORY: Clear breath sounds bilaterally. No wheezes, rales, or rhonchi. C/V: Regular rate and rhythm. S1 and S2 auscultated, no edema, peripheral pulses 2+ and intact throughout ABD: Abd is soft, nontender, nondistended. Rectal exam shows good rectal tone. No hemorrhoids. Appears to have gross blood on exam. EXT: Normal range of motion, no obvious deformity SKIN: No rashes or lesions observed on exposed skin. NEURO: Alert and oriented 4. Limitations: no limitations Course Vital Signs 05/22/22 05/22/22 05/22/22 04:55 06:12 06:37 Temperature 98.2 F Pulse Rate 88 78 81 Respiratory 15 16 16 Rate Blood Pressure 101/68 109/50 95/45 O2 Sat by Pulse 97 100 100 Oximetry Medical Decision Making - Medical Decision Making The patient's presentation and physical exam, there is concern for GI bleed causing her anemia. There is blood work obtained yesterday and results returned remarkable for a hemoglobin of 7.1 which prompted her to be sent here from her nursing facility. Patient was recently here for similar complaints, is discharged home on May 15 with a hemoglobin of 8.1. No source of GI bleed was found at that time. He was sent back here for concern for GI bleed considering she is on blood thinners. Patient has no symptoms. We will obtain abdominal laboratory studies. Screening EKG will be obtained. Occult blood was sent. Patient had gross blood on exam. Vital signs are within acceptable limits. Patient was in agreement this plan. EKG showed no signs of acute ischemia. Is in rate controlled atrial fibrillation. Laboratory studies are remarkable for a hemoglobin of 7.0. Coags were within acceptable limits at this time. Patient has an AMINA on CK D. Occult blood is positive. Patient would not tolerate a CT angiogram GI bleed protocol to evaluate for GI bleed due to poor renal function. She is hemodynamically stable. There was gross blood on exam. I discussed this with her, and she understands. We we will provide her with one unit packed red blood cells transfusion which she consented to.. She likely requires further EGD and colonoscopy at this time. I spoke with on-call surgery, Dr. Jefferson who is covering for Dr. Jay who agreed that the patient can be admitted, and I can consult Dr. Jay for fu rther evaluation. I spoke with the admitting physician, Dr. Cruz who accepted the patient. Patient was admitted in stable condition at this time. She'll be transfused 1 unit we will trend the hemoglobin. 2 large bore IVs are established. Patient remains hemodynamically stable at time of admission. I discussed the plan with her and she was in agreement with this plan.Patient's anticoagulation will be held at this time. - Lab Data Result diagrams: 05/22/22 05:20 05/22/22 05:20 Lab Results 05/22/22 05/22/22 05/22/22 Range/Units 05:20 05:20 05:20 WBC 7.4 (3.8-10.6) k/uL RBC 2.44 L (3.80-5.40) m/uL Hgb 7.0 L (11.4-16.0) gm/dL Hct 22.3 L (34.0-46.0) % MCV 91.2 (80.0-100.0) fL MCH 28.6 (25.0-35.0) pg MCHC 31.3 (31.0-37.0) g/dL RDW 16.5 H (11.5-15.5) % Plt Count 170 (150-450) k/uL MPV 9.3 Neutrophils % 74 % Lymphocytes % 16 % Monocytes % 5 % Eosinophils % 3 % Basophils % 0 % Neutrophils # 5.5 (1.3-7.7) k/uL Lymphocytes # 1.2 (1.0-4.8) k/uL Monocytes # 0.3 (0-1.0) k/uL Eosinophils # 0.2 (0-0.7) k/uL Basophils # 0.0 (0-0.2) k/uL Hypochromasia Marked Anisocytosis Slight PT 12.4 H (9.0-12.0) sec INR 1.2 H (<1.2) APTT 24.4 (22.0-30.0) sec Sodium 139 (137-145) mmol/L Potassium 5.3 H (3.5-5.1) mmol/L Chloride 93 L (98-107) mmol/L Carbon Dioxide 40 H (22-30) mmol/L Anion Gap 6 mmol/L BUN 57 H (7-17) mg/dL Creatinine 1.52 H (0.52-1.04) mg/dL Est GFR (CKD-EPI)AfAm 39 (>60 ml/min/1.73 sqM) Est GFR (CKD-EPI)NonAf 34 (>60 ml/min/1.73 sqM) Glucose 146 H (74-99) mg/dL Plasma Lactic Acid Garcia (0.7-2.0) mmol/L Calcium 8.1 L (8.4-10.2) mg/dL Total Bilirubin 0.5 (0.2-1.3) mg/dL AST 18 (14-36) U/L ALT 11 (4-34) U/L Alkaline Phosphatase 60 (38-126) U/L Total Protein 5.3 L (6.3-8.2) g/dL Albumin 2.7 L (3.5-5.0) g/dL Stool Occult Blood (Negative) Blood Type Blood Type Recheck Bld Type Recheck Status Antibody Screen Crossmatch Spec Expiration Date 05/22/22 05/22/22 05/22/22 Range/Units 05:20 05:30 05:50 WBC (3.8-10.6) k/uL RBC (3.80-5.40) m/uL Hgb (11.4-16.0) gm/dL Hct (34.0-46.0) % MCV (80.0-100.0) fL MCH (25.0-35.0) pg MCHC (31.0-37.0) g/dL RDW (11.5-15.5) % Plt Count (150-450) k/uL MPV Neutrophils % % Lymphocytes % % Monocytes % % Eosinophils % % Basophils % % Neutrophils # (1.3-7.7) k/uL Lymphocytes # (1.0-4.8) k/uL Monocytes # (0-1.0) k/uL Eosinophils # (0-0.7) k/uL Basophils # (0-0.2) k/uL Hypochromasia Anisocytosis PT (9.0-12.0) sec INR (<1.2) APTT (22.0-30.0) sec Sodium (137-145) mmol/L Potassium (3.5-5.1) mmol/L Chloride (98-107) mmol/L Carbon Dioxide (22-30) mmol/L Anion Gap mmol/L BUN (7-17) mg/dL Creatinine (0.52-1.04) mg/dL Est GFR (CKD-EPI)AfAm (>60 ml/min/1.73 sqM) Est GFR (CKD-EPI)NonAf (>60 ml/min/1.73 sqM) Glucose (74-99) mg/dL Plasma Lactic Acid Garcia 1.3 (0.7-2.0) mmol/L Calcium (8.4-10.2) mg/dL Total Bilirubin (0.2-1.3) mg/dL AST (14-36) U/L ALT (4-34) U/L Alkaline Phosphatase (38-126) U/L Total Protein (6.3-8.2) g/dL Albumin (3.5-5.0) g/dL Stool Occult Blood Positive H (Negative) Blood Type O Positive Blood Type Recheck O Pos Bld Type Recheck Status No Antibody Screen NEGATIVE Crossmatch See Detail Spec Expiration Date 05/25/20222349 - EKG Data -: EKG Interpreted by Me EKG Comments: 12-lead Electrocardiogram Interpretation Note EKG was reviewed and interpreted by myself. 12-lead ECG performed at 0451 is interpreted by me as revealing atrial fibrillation at a rate of 88 beats per minute. Indeterminate axis. QRS duration is 167 ms, QTc is 443 ms.. There were no acute ST or T wave abnormalities to suggest myocardial ischemia or injury. R wave progression across the precordium was satisfactory. By my interpretation this EKG is non-diagnostic for acute ischemia. No changes when compared with EKG from 05/09/2022. Disposition Clinical Impression: GI bleed, Chronic anemia, CKD (chronic kidney disease), Atrial fibrillation Disposition: ADMITTED IP TO THIS HOSP Condition: Stable Referrals: Maik Jama MD [Primary Care Provider] - 1-2 days Time of Disposition: 06:15
[2022-05-22] MEDS ORDERED: SODIUM CHLORIDE 0.9% 500 ML 500 ML IV STA (06:16)
[2022-05-22] MEDS ORDERED: NALOXONE 0.4 MG/ML 1 ML VIAL IV PRN (06:38)
[2022-05-22] MEDS ORDERED: ONDANSETRON 4 MG/2 ML VIAL IVP PRN (06:38)
[2022-05-22] MEDS ORDERED: MORPHINE SULFATE 4 MG/ML SYRINGE IV PRN (06:38)
[2022-05-22 07:48] LABS: Glucose,Whole Blood 154 mg/dL (70-110)
[2022-05-22] MEDS: INSULIN ASPART (NovoLOG) 100 UNIT/ML VIAL SQ SCH ×3 (07:58→18:02)
[2022-05-22] MEDS: LEVOTHYROXINE 50 MCG TAB PO SCH (07:58)
[2022-05-22] MEDS: ISOSORBIDE MONONITRATE ER 30 MG TAB.ER.24H PO SCH (09:48)
[2022-05-22] MEDS: METOPROLOL TARTRATE 50 MG TAB PO SCH ×3 (09:48→20:14)
[2022-05-22] MEDS: FUROSEMIDE 40 MG TAB PO SCH ×2 (09:53→17:08)
[2022-05-22] MEDS: INSULIN DETEMIR (LEVEMIR) 100 UNIT/ML SYR SQ SCH (13:11)
[2022-05-22 13:15] LABS: Glucose,Whole Blood 150 mg/dL (70-110)
[2022-05-22 13:20] LABS: Anisocytosis Slight; HCT 22.5 % (34.0-46.0); HGB 7.1 gm/dL (11.4-16.0); Hypochromasia Marked; MCH 28.5 pg (25.0-35.0); MCHC 31.6 g/dL (31.0-37.0); MCV 90.3 fL (80.0-100.0); Mean Platelet Volume 9.4; Platelet Count 168 k/uL (150-450); RDW 16.3 % (11.5-15.5); WBC 7.7 k/uL (3.8-10.6)
--- NOTE | 2022-05-22 15:23 | P.PN ---
Subjective Progress Note Date: 05/22/22 CHIEF COMPLAINT: GI bleed HISTORY OF PRESENT ILLNESS: This is a 72-year-old female who has a history of a trial fibrillation and on Eliquis. She had recent EGD and colonoscopy on last hospitalization for GI bleed completed on 05/14/2022 which did show a small antral ulcer diverticulosis and right colon polyp. She presented back to the ER due to a low hemoglobin on blood work of 7.1. Also had reported dark stools. Rectal exam in ER did show right red blood in it. Her stool for occult blood is positive. Her last hemoglobin was 7.0 she received a unit of blood. Hemoglobin on discharge 05/15/2022 was 8.1. Patient does report epigastric abdominal pain and close to the old LAP-BAND site and lower abdominal pain. She denies any nausea or vomiting. She denies any fever chills or sweats. Patient seen and examined with Dr. haile PAST MEDICAL HISTORY: See list. PAST SURGICAL HISTORY: See list. MEDICATIONS: See list. ALLERGIES: See list. SOCIAL HISTORY: No illicit drug use. REVIEW OF SYSTEMS: CONSTITUTIONAL: Denies fever or chills. HEENT: Denies blurred vision, vision changes, or eye pain. Denies hemoptysis CARDIOVASCULAR: Denies chest pain or pressure. RESPIRATORY: No shortness of breath. GASTROINTESTINAL: See HPI for pertinent findings HEMATOLOGIC: Denies bleeding disorders. GENITOURINARY: Denies any blood in urine or increased urinary frequency. SKIN: Denies pruitis. Denies rash. PHYSICAL EXAM: VITAL SIGNS: Reviewed GENERAL: Well-developed in no acute distress. HEENT: No sclera icterus. Extraocular movements grossly intact. Moist buccal mucosa. Head is atraumatic, normocephalic. No nasal drainage. ABDOMEN: Soft. Obese. Nondistended. Tenderness to palpation epigastric area, near the lap band port and lower abdomen NEUROLOGIC: Alert and oriented. Cranial nerves II through XII grossly intact. LABORATORY DATA: WBC is 7.7 hemoglobin 7.1 platelets 168 sodium is 139 potassium is 5.3 creatinine 1.52 stool for occult blood positive IMAGING: ASSESSMENT: 1. Acute GI bleed with acute blood loss anemia 2. Bright red blood per rectum 3. History of chronic anemia 4. History of atrial fibrillation on Eliquis 5. Recent EGD and colonoscopy with a small antral ulcer, diverticulosis and right colon polyp PLAN: -Patient scheduled for EGD on 05/25/[address] haile -Continue IV Protonix -Hold Eliquis -Okay to start clear liquid diet -Continue monitoring hemoglobin -Continue to monitor for any signs or symptoms of bleeding Physician Drier Feeder note has been reviewed by physician. Signing provider agrees with the documented findings, assessment, and plan of care. Objective - Vital Signs Vital signs: Vital Signs Temp 97.7 F 05/22/22 15:11 Pulse 80 05/22/22 15:11 Resp 18 05/22/22 15:11 BP 127/69 05/22/22 15:11 Pulse Ox 100 05/22/22 15:11 FiO2 Intake & Output 05/21/22 05/22/22 05/22/22 18:59 06:59 18:59 Intake Total 310 Balance 310 Weight 158.757 kg 158.757 kg Intake: Blood Product 310 Rc As-1 Unit 310 [id number] - Labs CBC & Chem 7: 05/22/22 13:09 05/22/22 05:20 Labs: Abnormal Lab Results - Last 24 Hours (Table) 05/22/22 05/22/22 05/22/22 Range/Units 05:20 05:20 05:20 RBC 2.44 L (3.80-5.40) m/uL Hgb 7.0 L (11.4-16.0) gm/dL Hct 22.3 L (34.0-46.0) % RDW 16.5 H (11.5-15.5) % PT 12.4 H (9.0-12.0) sec INR 1.2 H (<1.2) Potassium 5.3 H (3.5-5.1) mmol/L Chloride 93 L (98-107) mmol/L Carbon Dioxide 40 H (22-30) mmol/L BUN 57 H (7-17) mg/dL Creatinine 1.52 H (0.52-1.04) mg/dL Glucose 146 H (74-99) mg/dL POC Glucose (mg/dL) (70-110) mg/dL Calcium 8.1 L (8.4-10.2) mg/dL Total Protein 5.3 L (6.3-8.2) g/dL Albumin 2.7 L (3.5-5.0) g/dL Stool Occult Blood (Negative) Crossmatch 05/22/22 05/22/22 05/22/22 Range/Units 05:30 05:50 07:46 RBC (3.80-5.40) m/uL Hgb (11.4-16.0) gm/dL Hct (34.0-46.0) % RDW (11.5-15.5) % PT (9.0-12.0) sec INR (<1.2) Potassium (3.5-5.1) mmol/L Chloride (98-107) mmol/L Carbon Dioxide (22-30) mmol/L BUN (7-17) mg/dL Creatinine (0.52-1.04) mg/dL Glucose (74-99) mg/dL POC Glucose (mg/dL) 154 H (70-110) mg/dL Calcium (8.4-10.2) mg/dL Total Protein (6.3-8.2) g/dL Albumin (3.5-5.0) g/dL Stool Occult Blood Positive H (Negative) Crossmatch See Detail 05/22/22 05/22/22 Range/Units 13:09 13:13 RBC 2.50 L (3.80-5.40) m/uL Hgb 7.1 L (11.4-16.0) gm/dL Hct 22.5 L (34.0-46.0) % RDW 16.3 H (11.5-15.5) % PT (9.0-12.0) sec INR (<1.2) Potassium (3.5-5.1) mmol/L Chloride (98-107) mmol/L Carbon Dioxide (22-30) mmol/L BUN (7-17) mg/dL Creatinine (0.52-1.04) mg/dL Glucose (74-99) mg/dL POC Glucose (mg/dL) 150 H (70-110) mg/dL Calcium (8.4-10.2) mg/dL Total Protein (6.3-8.2) g/dL Albumin (3.5-5.0) g/dL Stool Occult Blood (Negative) Crossmatch
[2022-05-22 17:39] LABS: Glucose,Whole Blood 138 mg/dL (70-110)
--- NOTE | 2022-05-22 18:04 | P.HPIM ---
History of Present Illness H&P Date: 05/22/22 Chief Complaint: Blood per rectum Faith is a 72-year-old female well-known to my practice past medical history remarkable for atrial fibrillation coronary artery disease diabetes hypertension hyperlipidemia who has recently been admitted for COVID-19 and then subsequent admissions for GI bleed secondary to a apixaban which she was taking for intermittent atrial fibrillation. Patient does have a chronic anemia A [place] is currently residing inpatient rehab for COVID-19 infection sequelae, and I was notified that she had dark stool which was guaiac positive. And her hemoglobin at that time was 7.1. Patient denies abdominal pain denies chest pain or shortness of breath denies diarrhea denies dysuria or hematuria. Denies hematemesis nausea vomiting denies chest pain or shortness of breath. Patient is currently on nasal cannula O2 for support Review of Systems Constitutional: Reports as per HPI Ears, nose, mouth and throat: Reports as per HPI Cardiovascular: Reports as per HPI, Reports decreased exercise tolerance, Reports high blood pressure, Reports irregular heart beat Respiratory: Reports home oxygen (Blood per rectum) Gastrointestinal: Reports as per HPI (Blood per rectum) Genitourinary: Reports as per HPI Menstruation: Reports postmenopausal Musculoskeletal: Reports as per HPI Integumentary: Reports as per HPI Neurological: Reports as per HPI Past Medical History Past Medical History: Atrial Fibrillation, Coronary Artery Disease (CAD), Diabet es Mellitus, Eye Disorder, Hyperlipidemia, Hypertension, Osteoarthritis (OA), Pneumonia, Renal Disease, Sleep Apnea/CPAP/BIPAP, Thyroid Disorder Additional Past Medical History / Comment(s): Pt recently admitted to [facility] on 05/08/22 with anemia/had EGD and colonoscopy which showed nonbleeding stomach ulcer/diverticular disease and colon polyp, pt received blood transfusions. Other hx: 02/12/22 covid/pneumonia/sepsis, other past pneumonias, acute hypoxic respiratory failure/now on home oxygen ATC, new A fib with RVR, IDDM type II, neuropathy bilateral feet, L eye retinal bleed/lasik eye surgery, R eye cataract, bilateral eye macular degeneration/gets injections/poor vision, CKD stage III, anemia, UTI/sepsis, bilateral leg lymphedema, FLORES/does not have cpap machine at this time, diverticulitis, gout, chronic back pain, rheumatic fever, hypothyroid. History of Any Multi-Drug Resistant Organisms: None Reported Past Surgical History: Bariatric Surgery, Section, Cholecystectomy, Coronary Bypass/CABG, Heart Catheterization, Hysterectomy, Orthopedic Surgery, Tonsillectomy Additional Past Surgical History / Comment(s): EGD, colonoscopy, 2 vessel CABG in 1996, bilateral carpal tunnel release, lap band, L eye laser surgery, Past Anesthesia/Blood Transfusion Reactions: No Reported Reaction Smoking Status: Never smoker - Past Family History Father Family Medical History: Cancer, Coronary Artery Disease (CAD), Diabetes Mellitus Additional Family Medical History / Comment(s): Prostate cancer Mother Family Medical History: Cancer Additional Family Medical History / Comment(s): Bone cancer. Medications and Allergies Home Medications Medication Instructions Recorded Confirmed Type Atorvastatin [Lipitor] 40 mg PO HS 08/10/16 05/22/22 History Isosorbide Mononitrate [Isosorbide 30 mg PO DAILY 08/10/16 05/22/22 History Mononitrate ER] Oxybutynin Chloride 5 mg PO BID 08/10/16 05/22/22 History Metoprolol Tartrate [Lopressor] 50 mg PO TID@0900,1300,2100 04/12/22 05/22/22 History Mirtazapine [Remeron] 15 mg PO HS 04/12/22 05/22/22 History Acetaminophen Tab [Tylenol] 650 mg PO Q6H PRN 05/08/22 05/22/22 History Docusate [Colace] 100 mg PO DAILY 05/08/22 05/22/22 History Furosemide [Lasix] 40 mg PO DAILY@0600,1400 05/08/22 05/22/22 History Insulin Glargine-Yfgn [Semglee 50 units SQ DAILY 05/08/22 05/22/22 History (Yfgn) Pen] Insulin Lispro [humaLOG Kwikpen] 5 unit SQ TID@0800,1200,1700 05/08/22 05/22/22 History Insulin Lispro [humaLOG Kwikpen] See Protocol SQ ACHS 05/08/22 05/22/22 History Potassium Chloride ER [K-Dur 20] 20 meq PO DAILY 05/08/22 05/22/22 History Gabapentin [Neurontin] 300 mg PO BID 05/22/22 05/22/22 History Heparin Sodium,Porcine [Heparin 5,000 unit SQ Q12H 05/22/22 05/22/22 History Sodium] Levothyroxine Sodium [Synthroid] 50 mcg PO DAILY@0600 05/22/22 05/22/22 History Omeprazole [PriLOSEC] 20 mg PO DAILY@0600 05/22/22 05/22/22 History Allergies Allergy/AdvReac Type Severity Reaction Status Date / Time ibuprofen [From Motrin] Allergy Rash/Hives Verified 05/22/22 08:27 Penicillins Allergy Anaphylaxis Verified 05/22/22 08:27 Physical Exam Osteopathic Statement: *. No significant issues noted on an osteopathic structural exam other than those noted in the History and Physical/Consult. Vitals: Vital Signs Temp Pulse Pulse Resp BP BP Pulse Ox 05/22/22 16:35 05/22/22 15:11 97.7 F 80 18 127/69 100 05/22/22 14:03 98 F 84 19 107/52 100 05/22/22 13:28 85 20 93/50 100 05/22/22 11:05 87 15 122/47 100 05/22/22 10:15 98.5 F 81 16 106/43 100 05/22/22 09:45 85 15 92/57 100 05/22/22 08:30 80 18 116/53 100 05/22/22 08:00 87 15 102/46 100 05/22/22 07:35 98.5 F 84 15 102/46 100 05/22/22 07:15 98.6 F 88 18 108/61 05/22/22 07:05 98.6 F 84 18 110/44 05/22/22 06:37 81 16 95/45 100 05/22/22 06:12 78 16 109/50 100 05/22/22 04:55 98.2 F 88 15 101/68 97 FiO2 05/22/22 16:35 35 05/22/22 15:11 05/22/22 14:03 05/22/22 13:28 05/22/22 11:05 05/22/22 10:15 05/22/22 09:45 05/22/22 08:30 05/22/22 08:00 05/22/22 07:35 05/22/22 07:15 05/22/22 07:05 05/22/22 06:37 05/22/22 06:12 05/22/22 04:55 Intake and Output 05/22/22 05/22/22 05/22/22 06:59 14:59 22:59 Intake Total 310 350 Balance 310 350 Intake: Oral 350 Blood Product 310 Rc As-1 Unit 310 [id number] Other: Voiding Method External Catheter # Bowel Movements 1 Weight 158.757 kg 158.757 kg General: [Patient awake, alert and oriented times 3. Patient in no acute distress. Morbidly obese HEENT: PERRL. EOMI. No pharyngeal erythema or exudate. Neck: No adenopathy. Cardiac: Heart regular in rate and rhythm. No S3. No S4. No clicks, rubs. Grade 2 holosystolic murmur. Lungs: Clear to auscultation bilaterally. Abdomen: No mass. No organomegaly. Bowel sounds presnt and normoactive in all 4 quadrants. Extremes: No edema no cyanosis no claudication normal pulses : Normal female genitalia Musculoskeletal: [ No joint erythema, edema or tenderness. Skin: [No rash.] Neurologic: [No lateralizing deficits. CN II - XII grossly intact. Lymphatic: [No adenopathy.] Results CBC & Chem 7: 05/22/22 13:09 05/22/22 05:20 Labs: Abnormal Lab Results - Last 24 Hours (Table) 05/22/22 05/22/22 05/22/22 Range/Units 05:20 05:20 05:20 RBC 2.44 L (3.80-5.40) m/uL Hgb 7.0 L (11.4-16.0) gm/dL Hct 22.3 L (34.0-46.0) % RDW 16.5 H (11.5-15.5) % PT 12.4 H (9.0-12.0) sec INR 1.2 H (<1.2) Potassium 5.3 H (3.5-5.1) mmol/L Chloride 93 L (98-107) mmol/L Carbon Dioxide 40 H (22-30) mmol/L BUN 57 H (7-17) mg/dL Creatinine 1.52 H (0.52-1.04) mg/dL Glucose 146 H (74-99) mg/dL POC Glucose (mg/dL) (70-110) mg/dL Calcium 8.1 L (8.4-10.2) mg/dL Total Protein 5.3 L (6.3-8.2) g/dL Albumin 2.7 L (3.5-5.0) g/dL Stool Occult Blood (Negative) Crossmatch 05/22/22 05/22/22 05/22/22 Range/Units 05:30 05:50 07:46 RBC (3.80-5.40) m/uL Hgb (11.4-16.0) gm/dL Hct (34.0-46.0) % RDW (11.5-15.5) % PT (9.0-12.0) sec INR (<1.2) Potassium (3.5-5.1) mmol/L Chloride (98-107) mmol/L Carbon Dioxide (22-30) mmol/L BUN (7-17) mg/dL Creatinine (0.52-1.04) mg/dL Glucose (74-99) mg/dL POC Glucose (mg/dL) 154 H (70-110) mg/dL Calcium (8.4-10.2) mg/dL Total Protein (6.3-8.2) g/dL Albumin (3.5-5.0) g/dL Stool Occult Blood Positive H (Negative) Crossmatch See Detail 05/22/22 05/22/22 05/22/22 Range/Units 13:09 13:13 17:38 RBC 2.50 L (3.80-5.40) m/uL Hgb 7.1 L (11.4-16.0) gm/dL Hct 22.5 L (34.0-46.0) % RDW 16.3 H (11.5-15.5) % PT (9.0-12.0) sec INR (<1.2) Potassium (3.5-5.1) mmol/L Chloride (98-107) mmol/L Carbon Dioxide (22-30) mmol/L BUN (7-17) mg/dL Creatinine (0.52-1.04) mg/dL Glucose (74-99) mg/dL POC Glucose (mg/dL) 150 H 138 H (70-110) mg/dL Calcium (8.4-10.2) mg/dL Total Protein (6.3-8.2) g/dL Albumin (3.5-5.0) g/dL Stool Occult Blood (Negative) Crossmatch Thrombosis Risk Factor Assmnt - Choose All That Apply Any of the Below Risk Factors Present?: Yes Each Factor Represents 1 point: Obesity (BMI >25), Swollen legs (current) Other Risk Factors: Yes Each Risk Factor Represents 2 Points: Age 61-74 years Other congenital or acquired thrombophilia - If yes, enter type in comment: No Thrombosis Risk Factor Assessment Total Risk Factor Score: 4 Thrombosis Risk Factor Assessment Level: Moderate Risk Assessment and Plan (1) Atrial fibrillation Current Visit: Yes Status: Acute Code(s): I48.91 - UNSPECIFIED ATRIAL FIBRILLATION SNOMED Code(s): 76941755 (2) CKD (chronic kidney disease) Current Visit: Yes Status: Acute Code(s): N18.9 - CHRONIC KIDNEY DISEASE, UNSPECIFIED SNOMED Code(s): 339876085 (3) Chronic anemia Current Visit: Yes Status: Acute Code(s): D64.9 - ANEMIA, UNSPECIFIED SNOMED Code(s): 068279170 (4) GI bleed Current Visit: Yes Status: Acute Code(s): K92.2 - GASTROINTESTINAL HEMORRHAGE, UNSPECIFIED SNOMED Code(s): 20112320 (5) Acute on chronic anemia Current Visit: No Status: Acute Code(s): D64.9 - ANEMIA, UNSPECIFIED SNOMED Code(s): 754574487 (6) Acute on chronic diastolic (congestive) heart failure Current Visit: No Status: Acute Code(s): I50.33 - ACUTE ON CHRONIC DIASTOLIC (CONGESTIVE) HEART FAILURE SNOMED Code(s): 692240050 (7) Anemia Current Visit: No Status: Acute Code(s): D64.9 - ANEMIA, UNSPECIFIED SNOMED Code(s): 818174328 Plan: Rectal bleed secondary to apixaban A. fib Type 2 diabetes morbid obesity Status post recent covid 19 positive Anemia acute on chronic admits hemoglobin 7.1 Transfused 1 unit in the emergency room Anticoagulants stopped Chronic kidney disease Patient currently hemodynamically stable Suspect bleeding has been ongoing since discharge Time with Patient: Greater than 30
[2022-05-22 18:38] LABS: Anisocytosis Slight; Basophils % (A) 0 %; Eosinophils # (A) 0.2 k/uL (0-0.7); Eosinophils % (A) 3 %; HCT 23.3 % (34.0-46.0); HGB 7.5 gm/dL (11.4-16.0); Hypochromasia Marked; Lymphocytes # (A) 1.1 k/uL (1.0-4.8); Lymphocytes % (A) 14 %; MCH 29.7 pg (25.0-35.0); MCHC 32.2 g/dL (31.0-37.0); MCV 92.3 fL (80.0-100.0); Mean Platelet Volume 9.1; Monocytes # (A) 0.3 k/uL (0-1.0); Monocytes % (A) 4 %; Neutrophils # (A) 5.8 k/uL (1.3-7.7); Neutrophils % (A) 77 %; Platelet Count 183 k/uL (150-450); RBC 2.52 m/uL (3.80-5.40); RDW 16.3 % (11.5-15.5); WBC 7.5 k/uL (3.8-10.6)
[2022-05-22 19:17] LABS: ALT 12 U/L (4-34); AST 20 U/L (14-36); African American GFR (CKD) 44 (>60 ml/min/1.73 sqM); Albumin 2.8 g/dL (3.5-5.0); Alkaline Phosphatase 59 U/L (38-126); Anion Gap 6 mmol/L; Blood Urea Nitrogen 58 mg/dL (7-17); Calcium 8.3 mg/dL (8.4-10.2); Carbon Dioxide 37 mmol/L (22-30); Chloride 93 mmol/L (98-107); Globulin 2.7 g/dL; Glucose 154 mg/dL (74-99); Non-African American GFR(CKD) 38 (>60 ml/min/1.73 sqM); Potassium 5.1 mmol/L (3.5-5.1); Sodium 136 mmol/L (137-145); Total Bilirubin 0.9 mg/dL (0.2-1.3); Total Protein 5.5 g/dL (6.3-8.2)
[2022-05-22 20:13] LABS: Glucose,Whole Blood 225 mg/dL (70-110)
[2022-05-22] MEDS: ATORVASTATIN 40 MG TAB PO SCH (20:14)
[2022-05-22 20:16] LABS: Appearance,Urine Cloudy (Clear); Bacteria,Urine Rare /hpf; Bilirubin,Urine Negative (Negative); Blood,Urine Negative (Negative); Color,Urine Light Yellow; Glucose,Urine (UA) Negative (Negative); Ketones,Urine Negative (Negative); Leukocyte Esterase,Urine Large (Negative); Mucus,Urine Rare /hpf; Nitrite,Urine Negative (Negative); Protein,Urine Negative (Negative); RBC,Urine <1 /hpf (0-5); Specific Gravity,Urine 1.014 (1.001-1.035); Squamous Epithelial Cell,Urine 1 /hpf (0-4); Urobilinogen,Urine <2.0 mg/dL (<2.0); WBC,Urine 23 /hpf (0-5)
[2022-05-23] MEDS: LEVOTHYROXINE 50 MCG TAB PO SCH (05:28)
[2022-05-23] MEDS ORDERED: FUROSEMIDE 40 MG TAB PO SCH (06:00)
[2022-05-23 07:06] LABS: Glucose,Whole Blood 177 mg/dL (70-110)
--- NOTE | 2022-05-23 09:29 | P.PN ---
Subjective Progress Note Date: 05/23/22 Principal diagnosis: Anemia, intermittent atrial fibrillation, type 2 diabetes, recent noval covid 19 viral infection Patient was recently admitted to the hospital with GI bleed, secondary to apixaban, patient also has history type 2 diabetes coronary artery disease atrial fibrillation, chronic anemia and renal insufficiency. This patient is otherwise hemodynamically stable, [facility] infection when I was called in the middle of the night with rectal bleeding, hemoglobin was obtained stat was found to be 7.1 station was made to readmit patient to the hospital and evaluated for GI bleeding Objective - Vital Signs Vital signs: Vital Signs Temp 98.5 F 05/23/22 04:08 Pulse 79 05/23/22 04:08 Resp 16 05/23/22 04:08 BP 115/53 05/23/22 04:08 Pulse Ox 100 05/23/22 04:08 FiO2 35 05/23/22 07:58 Intake & Output 05/22/22 05/23/22 05/23/22 18:59 06:59 18:59 Intake Total 660 Output Total 600 Balance 660 -600 Weight 158.757 kg Intake: Oral 350 Blood Product 310 Rc As-1 Unit 310 [id number] Output: Urine 600 Other: Voiding Method External Catheter External Catheter # Bowel Movements 1 - Exam General: [Patient awake, alert and oriented times 3. Patient in no acute distress. Morbid obesity HEENT: [PERRL. EOMI. No pharyngeal erythema or exudate.] Neck: [No adenopathy.] Cardiac: [Heart regular in rate and rhythm. No S3. No S4. No clicks, rubs. No murmur.] Lungs: [Clear to auscultation bilaterally.] Abdomen: [No mass. No organomegaly. Bowel sounds presnt and normoactive in all 4 quadrants.] Extremes: [No edema no cyanosis no claudication normal pulses] : Normal female genitalia Musculoskeletal: [No joint erythema, edema or tenderness.] Skin: [No rash.] Neurologic: [No lateralizing deficits. CN II - XII grossly intact.] Lymphatic: [No adenopathy.] - Labs CBC & Chem 7: 05/22/22 18:26 05/22/22 18:26 Labs: Abnormal Lab Results - Last 24 Hours (Table) 05/22/22 05/22/22 05/22/22 Range/Units 05:50 13:09 13:13 RBC 2.50 L (3.80-5.40) m/uL Hgb 7.1 L (11.4-16.0) gm/dL Hct 22.5 L (34.0-46.0) % RDW 16.3 H (11.5-15.5) % Sodium (137-145) mmol/L Chloride (98-107) mmol/L Carbon Dioxide (22-30) mmol/L BUN (7-17) mg/dL Creatinine (0.52-1.04) mg/dL Glucose (74-99) mg/dL POC Glucose (mg/dL) 150 H (70-110) mg/dL Calcium (8.4-10.2) mg/dL Total Protein (6.3-8.2) g/dL Albumin (3.5-5.0) g/dL Urine Appearance (Clear) Ur Leukocyte Esterase (Negative) Urine WBC (0-5) /hpf Urine Bacteria (None) /hpf Urine Mucus (None) /hpf Crossmatch See Detail 05/22/22 05/22/22 05/22/22 Range/Units 17:38 18:26 18:26 RBC 2.52 L (3.80-5.40) m/uL Hgb 7.5 L (11.4-16.0) gm/dL Hct 23.3 L (34.0-46.0) % RDW 16.3 H (11.5-15.5) % Sodium 136 L (137-145) mmol/L Chloride 93 L (98-107) mmol/L Carbon Dioxide 37 H (22-30) mmol/L BUN 58 H (7-17) mg/dL Creatinine 1.37 H (0.52-1.04) mg/dL Glucose 154 H (74-99) mg/dL POC Glucose (mg/dL) 138 H (70-110) mg/dL Calcium 8.3 L (8.4-10.2) mg/dL Total Protein 5.5 L (6.3-8.2) g/dL Albumin 2.8 L (3.5-5.0) g/dL Urine Appearance (Clear) Ur Leukocyte Esterase (Negative) Urine WBC (0-5) /hpf Urine Bacteria (None) /hpf Urine Mucus (None) /hpf Crossmatch 05/22/22 05/22/22 05/23/22 Range/Units 20:00 20:12 07:05 RBC (3.80-5.40) m/uL Hgb (11.4-16.0) gm/dL Hct (34.0-46.0) % RDW (11.5-15.5) % Sodium (137-145) mmol/L Chloride (98-107) mmol/L Carbon Dioxide (22-30) mmol/L BUN (7-17) mg/dL Creatinine (0.52-1.04) mg/dL Glucose (74-99) mg/dL POC Glucose (mg/dL) 225 H 177 H (70-110) mg/dL Calcium (8.4-10.2) mg/dL Total Protein (6.3-8.2) g/dL Albumin (3.5-5.0) g/dL Urine Appearance Cloudy H (Clear) Ur Leukocyte Esterase Large H (Negative) Urine WBC 23 H (0-5) /hpf Urine Bacteria Rare H (None) /hpf Urine Mucus Rare H (None) /hpf Crossmatch Microbiology - Last 24 Hours (Table) 05/22/22 20:00 Urine Culture - Preliminary Urine,Voided Assessment and Plan (1) Atrial fibrillation Current Visit: Yes Status: Acute Code(s): I48.91 - UNSPECIFIED ATRIAL FIBRILLATION SNOMED Code(s): 29805054 (2) CKD (chronic kidney disease) Current Visit: Yes Status: Acute Code(s): N18.9 - CHRONIC KIDNEY DISEASE, UNSPECIFIED SNOMED Code(s): 049315934 (3) Chronic anemia Current Visit: Yes Status: Acute Code(s): D64.9 - ANEMIA, UNSPECIFIED SNOMED Code(s): 447684651 (4) GI bleed Current Visit: Yes Status: Acute Code(s): K92.2 - GASTROINTESTINAL HEMORRHAGE, UNSPECIFIED SNOMED Code(s): 91123409 (5) Acute on chronic anemia Current Visit: No Status: Acute Code(s): D64.9 - ANEMIA, UNSPECIFIED SNOMED Code(s): 489391252 (6) Acute on chronic diastolic (congestive) heart failure Current Visit: No Status: Acute Code(s): I50.33 - ACUTE ON CHRONIC DIASTOLIC (CONGESTIVE) HEART FAILURE SNOMED Code(s): 505895760 (7) Anemia Current Visit: No Status: Acute Code(s): D64.9 - ANEMIA, UNSPECIFIED SNOMED Code(s): 998420426 Plan: Rectal bleed secondary to apixaban A. fib Type 2 diabetes morbid obesity Status post recent covid 19 positive Anemia acute on chronic admits hemoglobin 7.1 Transfused 1 unit in the emergency room Anticoagulants stopped Chronic kidney disease Patient currently hemodynamically stable Suspect bleeding has been ongoing since discharge Time with Patient: Greater than 30
[2022-05-23] MEDS: FUROSEMIDE 40 MG TAB PO SCH ×2 (09:37→16:38)
[2022-05-23] MEDS: ISOSORBIDE MONONITRATE ER 30 MG TAB.ER.24H PO SCH (09:37)
[2022-05-23] MEDS: METOPROLOL TARTRATE 50 MG TAB PO SCH ×3 (09:37→19:54)
[2022-05-23] MEDS: INSULIN DETEMIR (LEVEMIR) 100 UNIT/ML SYR SQ SCH (09:37)
[2022-05-23] MEDS: INSULIN ASPART (NovoLOG) 100 UNIT/ML VIAL SQ SCH ×3 (09:38→17:41)
[2022-05-23] MEDS: PANTOPRAZOLE 40 MG/10 ML VIAL IV SCH (09:39)
[2022-05-23 11:13] LABS: Glucose,Whole Blood 176 mg/dL (70-110)
[2022-05-23 12:54] VITALS: BMI 60.0
[2022-05-23 13:35] LABS: Basophils # (A) 0.02 X 10*3/uL (0.00-0.10); Basophils % (A) 0.3 %; Eosinophils % (A) 3.2 %; HCT 20.4 % (37.2-46.3); Immature Grans, Automated 0.3 %; Lymphocytes # (A) 1.05 X 10*3/uL (0.90-5.00); Lymphocytes % (A) 16.7 %; MCH 27.6 pg (27.0-32.0); MCHC 29.4 g/dL (32.0-37.0); Mean Platelet Volume 11.6 fL (9.5-12.2); Monocytes # (A) 0.46 X 10*3/uL (0.20-1.00); Monocytes % (A) 7.3 %; NRBC Per 100 WBC 0 /100 WBCS (0.0-0.0); Neutrophils # (A) 4.53 X 10*3/uL (1.80-7.70); Neutrophils % (A) 72.2 %; Platelet Count 151 X 10*3/uL (140-440); RBC 2.17 X 10*6/uL (4.10-5.20); RDW 17.3 % (11.5-14.5); WBC 6.28 X 10*3/uL (4.50-10.00)
[2022-05-23] MEDS ORDERED: FUROSEMIDE 10 MG/ML 2 ML VIAL IV ONE (13:41)
[2022-05-23 13:52] LABS: African American GFR (CKD) 43.9 (60.0-200.0); Albumin 2.6 g/dL (3.8-4.9); Albumin/Globulin Ratio 1.13 (1.60-3.17); Anion Gap 6.6 mmol/L (10.00-18.00); BUN/Creat Ratio 42.17 Ratio (12.00-20.00); Blood Urea Nitrogen 58.2 mg/dL (9.0-27.0); Calcium 8.5 mg/dL (8.7-10.3); Carbon Dioxide 36.6 mmol/L (20.0-27.5); Globulin 2.3 g/dL (1.6-3.3); Non-African American GFR(CKD) 37.8 (60.0-200.0); Potassium 5.1 mmol/L (3.5-5.5); Total Bilirubin 0.6 mg/dL (0.30-1.20); Total Protein 4.9 g/dL (6.2-8.2)
--- NOTE | 2022-05-23 14:34 | P.PN ---
Subjective Progress Note Date: 05/23/22 CHIEF COMPLAINT: GI bleed HISTORY OF PRESENT ILLNESS: The patient is a 72-year-old female presents for GI bleed. She is tolerating clear liquid diet. No reports of bowel movement or blood in stools. Denies abdominal pain. ROS: No reports of nausea and vomiting. No bowel movements. No fevers or c hills. No new chest pain. No productive sputum. Morbid obesity, BMI 60 PHYSICAL EXAM: VITAL SIGNS: Reviewed CONSTITUTIONAL: Well developed and in no acute distress. EYES: Conjuctivae without sclera icterus. Extraocular movements grossly intact. HEAD, EARS, NOSE, THROAT: Moist buccal mucosa. Head is atraumatic, normocephalic. Hears conversational speech. No nasal drainage. RESPIRATORY: Non-labored respirations and equal bilateral excursions. CARDIOVASCULAR: Palpable 2+ radial pulses. ABDOMEN: Obese, nontender. MUSCULOSKELETAL: No gross deformity of the lower extremities noted. No clubbing. No cyanosis. SKIN: Good skin turgor. Well perfused. NEUROLOGIC: Cranial nerves II through XII grossly intact. No focal or lateralizing signs. PSYCH: Appropriate affect. Alert and oriented to person, place and time. CLINICAL LABS: Reviewed. Hemoglobin 7.1-7.5. Hemoglobin down to 6.0. ASSESSMENT: 1. GI bleed 2. Acute anemia PLAN: 1. Transfuse as needed for symptomatic anemia 2. May benefit from upper and lower endoscopy 3. Patient's elevated risk due to BMI of 60 Objective - Vital Signs Vital signs: Vital Signs Temp 97.9 F 05/23/22 11:38 Pulse 76 05/23/22 11:38 Resp 18 05/23/22 11:38 BP 107/50 05/23/22 11:38 Pulse Ox 100 05/23/22 11:38 FiO2 35 05/23/22 07:58 Intake & Output 05/22/22 05/23/22 05/23/22 18:59 06:59 18:59 Intake Total 660 Output Total 600 Balance 660 -600 Weight 158.757 kg 158.757 kg Intake: Oral 350 Blood Product 310 Rc As-1 Unit 310 [id number] Output: Urine 600 Other: Voiding Method External Catheter External Catheter External Catheter # Bowel Movements 1 - Labs CBC & Chem 7: 05/23/22 07:42 05/23/22 07:42 Labs: Abnormal Lab Results - Last 24 Hours (Table) 05/22/22 05/22/22 05/22/22 Range/Units 13:09 13:13 17:38 RBC 2.50 L (3.80-5.40) m/uL Hgb 7.1 L (11.4-16.0) gm/dL Hct 22.5 L (34.0-46.0) % RDW 16.3 H (11.5-15.5) % Sodium (137-145) mmol/L Chloride (98-107) mmol/L Carbon Dioxide (22-30) mmol/L BUN (7-17) mg/dL Creatinine (0.52-1.04) mg/dL Glucose (74-99) mg/dL POC Glucose (mg/dL) 150 H 138 H (70-110) mg/dL Calcium (8.4-10.2) mg/dL Total Protein (6.3-8.2) g/dL Albumin (3.5-5.0) g/dL Urine Appearance (Clear) Ur Leukocyte Esterase (Negative) Urine WBC (0-5) /hpf Urine Bacteria (None) /hpf Urine Mucus (None) /hpf 05/22/22 05/22/22 05/22/22 Range/Units 18:26 18:26 20:00 RBC 2.52 L (3.80-5.40) m/uL Hgb 7.5 L (11.4-16.0) gm/dL Hct 23.3 L (34.0-46.0) % RDW 16.3 H (11.5-15.5) % Sodium 136 L (137-145) mmol/L Chloride 93 L (98-107) mmol/L Carbon Dioxide 37 H (22-30) mmol/L BUN 58 H (7-17) mg/dL Creatinine 1.37 H (0.52-1.04) mg/dL Glucose 154 H (74-99) mg/dL POC Glucose (mg/dL) (70-110) mg/dL Calcium 8.3 L (8.4-10.2) mg/dL Total Protein 5.5 L (6.3-8.2) g/dL Albumin 2.8 L (3.5-5.0) g/dL Urine Appearance Cloudy H (Clear) Ur Leukocyte Esterase Large H (Negative) Urine WBC 23 H (0-5) /hpf Urine Bacteria Rare H (None) /hpf Urine Mucus Rare H (None) /hpf 05/22/22 05/23/22 05/23/22 Range/Units 20:12 07:05 11:12 RBC (3.80-5.40) m/uL Hgb (11.4-16.0) gm/dL Hct (34.0-46.0) % RDW (11.5-15.5) % Sodium (137-145) mmol/L Chloride (98-107) mmol/L Carbon Dioxide (22-30) mmol/L BUN (7-17) mg/dL Creatinine (0.52-1.04) mg/dL Glucose (74-99) mg/dL POC Glucose (mg/dL) 225 H 177 H 176 H (70-110) mg/dL Calcium (8.4-10.2) mg/dL Total Protein (6.3-8.2) g/dL Albumin (3.5-5.0) g/dL Urine Appearance (Clear) Ur Leukocyte Esterase (Negative) Urine WBC (0-5) /hpf Urine Bacteria (None) /hpf Urine Mucus (None) /hpf Microbiology - Last 24 Hours (Table) 05/22/22 20:00 Urine Culture - Preliminary Urine,Voided
[2022-05-23 17:23] LABS: Glucose,Whole Blood 271 mg/dL (70-110)
[2022-05-23] MEDS: ATORVASTATIN 40 MG TAB PO SCH (19:54)
[2022-05-23 20:29] LABS: Glucose,Whole Blood 353 mg/dL (70-110)
[2022-05-24] MEDS: LEVOTHYROXINE 50 MCG TAB PO SCH (05:00)
[2022-05-24 07:05] LABS: Glucose,Whole Blood 183 mg/dL (70-110)
[2022-05-24] MEDS: INSULIN DETEMIR (LEVEMIR) 100 UNIT/ML SYR SQ SCH (07:54)
[2022-05-24] MEDS: PANTOPRAZOLE 40 MG/10 ML VIAL IV SCH (07:54)
[2022-05-24] MEDS: ISOSORBIDE MONONITRATE ER 30 MG TAB.ER.24H PO SCH (07:54)
[2022-05-24] MEDS: FUROSEMIDE 40 MG TAB PO SCH ×2 (07:54→16:28)
[2022-05-24] MEDS: METOPROLOL TARTRATE 50 MG TAB PO SCH ×3 (07:54→20:04)
[2022-05-24] MEDS: INSULIN ASPART (NovoLOG) 100 UNIT/ML VIAL SQ SCH ×3 (07:55→17:46)
[2022-05-24 11:22] LABS: Glucose,Whole Blood 256 mg/dL (70-110)
[2022-05-24 11:35] LABS: Basophils # (A) 0.02 X 10*3/uL (0.00-0.10); Basophils % (A) 0.4 %; Eosinophils # (A) 0.13 X 10*3/uL (0.04-0.35); Eosinophils % (A) 2.3 %; HCT 21.3 % (37.2-46.3); HGB 6.5 g/dL (12.0-15.0); Immature Grans, Automated 0.4 %; Lymphocytes # (A) 0.93 X 10*3/uL (0.90-5.00); Lymphocytes % (A) 16.6 %; MCH 28.4 pg (27.0-32.0); MCHC 30.5 g/dL (32.0-37.0); Mean Platelet Volume 11.3 fL (9.5-12.2); Monocytes # (A) 0.41 X 10*3/uL (0.20-1.00); Monocytes % (A) 7.3 %; NRBC Per 100 WBC 0 /100 WBCS (0.0-0.0); Neutrophils # (A) 4.09 X 10*3/uL (1.80-7.70); Platelet Count 135 X 10*3/uL (140-440); RBC 2.29 X 10*6/uL (4.10-5.20); RDW 16.7 % (11.5-14.5)
[2022-05-24] MEDS ORDERED: FUROSEMIDE 10 MG/ML 2 ML VIAL IV ONE (11:42)
--- NOTE | 2022-05-24 11:42 | P.PN ---
Subjective Progress Note Date: 05/24/22 Principal diagnosis: Anemia, intermittent atrial fibrillation, type 2 diabetes, recent noval covid 19 viral infection Patient was recently admitted to the hospital with GI bleed, secondary to apixaban, patient also has history type 2 diabetes coronary artery disease atrial fibrillation, chronic anemia and renal insufficiency. This patient is otherwise hemodynamically stable, was residing at [facility] from COVID-19 infection when I was called in the middle of the night with rectal bleeding, hemoglobin was obtained stat was found to be 7.1 station was made to readmit patient to the hospital and evaluated for GI bleeding 05/24/2022 Patient awake alert and oriented 3 vital signs are stable, patient is hemodynamically stable. Patient received 1 unit packed red cells yesterday her hemoglobin went up from 6-6.5. We'll transfused a second unit of packed red cells with 20 mg of Lasix following the blood will repeat hemoglobin following t he transfusion Patient benefit from endoscopic intervention Objective - Vital Signs Vital signs: Vital Signs Temp 98.0 F 05/24/22 04:16 Pulse 76 05/24/22 07:55 Resp 16 05/24/22 04:16 BP 103/64 05/24/22 07:55 Pulse Ox 99 05/24/22 04:16 FiO2 35 05/24/22 07:29 Intake & Output 05/23/22 05/24/22 05/24/22 18:59 06:59 18:59 Intake Total 289 840 Output Total 700 1100 400 Balance -411 -260 -400 Weight 158.757 kg Intake: Oral 840 Blood Product 289 Rc Pheresis As-3 Unit 289 [id number] Output: Urine 700 1100 400 Other: Voiding Method External Catheter External Catheter External Catheter # Bowel Movements 1 - Exam General: [Patient awake, alert and oriented times 3. Patient in no acute distress. Morbid obesity HEENT: [PERRL. EOMI. No pharyngeal erythema or exudate.] Neck: [No adenopathy.] Cardiac: [Heart regular in rate and rhythm. No S3. No S4. No clicks, rubs. No murmur.] Lungs: [Clear to auscultation bilaterally.] Abdomen: [No mass. No organomegaly. Bowel sounds presnt and normoactive in all 4 quadrants.] Extremes: [No edema no cyanosis no claudication normal pulses] : Normal female genitalia Musculoskeletal: [No joint erythema, edema or tenderness.] Skin: [No rash.] Neurologic: [No lateralizing deficits. CN II - XII grossly intact.] Lymphatic: [No adenopathy.] - Labs CBC & Chem 7: 05/24/22 07:07 05/23/22 07:42 Labs: Abnormal Lab Results - Last 24 Hours (Table) 05/22/22 05/23/22 05/23/22 Range/Units 05:50 07:42 07:42 RBC 2.17 L (4.10-5.20) X 10*6/uL Hgb 6.0 L* (12.0-15.0) g/dL Hct 20.4 L (37.2-46.3) % MCHC 29.4 L (32.0-37.0) g/dL RDW 17.3 H (11.5-14.5) % Plt Count (140-440) X 10*3/uL Carbon Dioxide 36.6 H (20.0-27.5) mmol/L Anion Gap 6.60 L (10.00-18.00) mmol/L BUN 58.2 H (9.0-27.0) mg/dL Est GFR (CKD-EPI)AfAm 43.9 L (60.0-200.0) Est GFR (CKD-EPI)NonAf 37.8 L (60.0-200.0) BUN/Creatinine Ratio 42.17 H (12.00-20.00) Ratio Glucose 155 H (70-110) mg/dL POC Glucose (mg/dL) (70-110) mg/dL Calcium 8.5 L (8.7-10.3) mg/dL Total Protein 4.9 L (6.2-8.2) g/dL Albumin 2.6 L (3.8-4.9) g/dL Albumin/Globulin Ratio 1.13 L (1.60-3.17) g/dL Crossmatch See Detail 05/23/22 05/23/22 05/24/22 Range/Units 17:22 20:27 07:03 RBC (4.10-5.20) X 10*6/uL Hgb (12.0-15.0) g/dL Hct (37.2-46.3) % MCHC (32.0-37.0) g/dL RDW (11.5-14.5) % Plt Count (140-440) X 10*3/uL Carbon Dioxide (20.0-27.5) mmol/L Anion Gap (10.00-18.00) mmol/L BUN (9.0-27.0) mg/dL Est GFR (CKD-EPI)AfAm (60.0-200.0) Est GFR (CKD-EPI)NonAf (60.0-200.0) BUN/Creatinine Ratio (12.00-20.00) Ratio Glucose (70-110) mg/dL POC Glucose (mg/dL) 271 H 353 H 183 H (70-110) mg/dL Calcium (8.7-10.3) mg/dL Total Protein (6.2-8.2) g/dL Albumin (3.8-4.9) g/dL Albumin/Globulin Ratio (1.60-3.17) g/dL Crossmatch 05/24/22 05/24/22 Range/Units 07:07 11:20 RBC 2.29 L (4.10-5.20) X 10*6/uL Hgb 6.5 L* (12.0-15.0) g/dL Hct 21.3 L (37.2-46.3) % MCHC 30.5 L (32.0-37.0) g/dL RDW 16.7 H (11.5-14.5) % Plt Count 135 L (140-440) X 10*3/uL Carbon Dioxide (20.0-27.5) mmol/L Anion Gap (10.00-18.00) mmol/L BUN (9.0-27.0) mg/dL Est GFR (CKD-EPI)AfAm (60.0-200.0) Est GFR (CKD-EPI)NonAf (60.0-200.0) BUN/Creatinine Ratio (12.00-20.00) Ratio Glucose (70-110) mg/dL POC Glucose (mg/dL) 256 H (70-110) mg/dL Calcium (8.7-10.3) mg/dL Total Protein (6.2-8.2) g/dL Albumin (3.8-4.9) g/dL Albumin/Globulin Ratio (1.60-3.17) g/dL Crossmatch Assessment and Plan (1) Atrial fibrillation Current Visit: Yes Status: Acute Code(s): I48.91 - UNSPECIFIED ATRIAL FIBRILLATION SNOMED Code(s): 74765716 (2) CKD (chronic kidney disease) Current Visit: Yes Status: Acute Code(s): N18.9 - CHRONIC KIDNEY DISEASE, UNSPECIFIED SNOMED Code(s): 774050412 (3) Chronic anemia Current Visit: Yes Status: Acute Code(s): D64.9 - ANEMIA, UNSPECIFIED SNOMED Code(s): 658463280 (4) GI bleed Current Visit: Yes Status: Acute Code(s): K92.2 - GASTROINTESTINAL HEMORRHAGE, UNSPECIFIED SNOMED Code(s): 63654578 (5) Acute on chronic anemia Current Visit: No Status: Acute Code(s): D64.9 - ANEMIA, UNSPECIFIED SNOMED Code(s): 447192961 (6) Acute on chronic diastolic (congestive) heart failure Current Visit: No Status: Acute Code(s): I50.33 - ACUTE ON CHRONIC DIASTOLIC (CONGESTIVE) HEART FAILURE SNOMED Code(s): 510182947 (7) Anemia Current Visit: No Status: Acute Code(s): D64.9 - ANEMIA, UNSPECIFIED SNOMED Code(s): 002254233 Plan: Rectal bleed secondary to apixaban A. fib Type 2 diabetes morbid obesity Status post recent covid 19 positive Anemia acute on chronic admits hemoglobin 7.1 Transfused 1 1 unit following a hemoglobin of 6.5 after transfusion yesterday Anticoagulants stopped Chronic kidney disease Patient currently hemodynamically stable Suspect bleeding has been ongoing since discharge Time with Patient: Greater than 30
[2022-05-24 12:53] LABS: Albumin 2.8 g/dL (3.8-4.9); Albumin/Globulin Ratio 1.19 (1.60-3.17); Anion Gap 6.6 mmol/L (10.00-18.00); BUN/Creat Ratio 46.27 Ratio (12.00-20.00); Blood Urea Nitrogen 54.6 mg/dL (9.0-27.0); Calcium 8.8 mg/dL (8.7-10.3); Carbon Dioxide 40.2 mmol/L (20.0-27.5); Globulin 2.4 g/dL (1.6-3.3); Non-African American GFR(CKD) 45.7 (60.0-200.0); Potassium 4.1 mmol/L (3.5-5.5); Total Bilirubin 0.8 mg/dL (0.30-1.20); Total Protein 5.2 g/dL (6.2-8.2)
--- NOTE | 2022-05-24 15:17 | P.PN ---
Subjective Progress Note Date: 05/24/22 CHIEF COMPLAINT: GI bleed HISTORY OF PRESENT ILLNESS: The patient is a 72-year-old female admitted for GI bleed. Today she reports new left upper quadrant abdominal pain. Her hemoglobin after 1 unit of blood for hemoglobin 6.0 now 6.5. She reports bowel movement last night and this morning with blood. Patient recent colonoscopy less than 2 weeks ago without bleeding at that time. She was on a blood thinner. ROS: No reports of nausea and vomiting. No bowel movements. No fevers or chills. No new chest pain. Has BiPAP. Morbid obesity, BMI 60 PHYSICAL EXAM: VITAL SIGNS: Reviewed CONSTITUTIONAL: Well developed and in no acute distress. EYES: Conjuctivae without sclera icterus. Extraocular movements grossly intact. HEAD, EARS, NOSE, THROAT: Moist buccal mucosa. Head is atraumatic, normocephalic. Hears conversational speech. No nasal drainage. RESPIRATORY: Non-labored respirations and equal bilateral excursions. CARDIOVASCULAR: Palpable 2+ radial pulses. ABDOMEN: Obese, mild tenderness left upper quadrant. No peritonitis. MUSCULOSKELETAL: No gross deformity of the lower extremities noted. No clubbing. No cyanosis. SKIN: Good skin turgor. Well perfused. NEUROLOGIC: Cranial nerves II through XII grossly intact. No focal or lateralizing signs. PSYCH: Appropriate affect. Alert and oriented to person, place and time. CLINICAL LABS: Reviewed. Hemoglobin with anemia 6.0-6.5. REPORT: Colonoscopy report from last admission demonstrating diverticulosis and ulcers of the antrum. STUDIES: CTA from April 2022 review demonstrates severe cardiomegaly. No views of left upper quadrant of the abdomen adequately obtained. This is my independent interpretation. ASSESSMENT: 1. GI bleed 2. Acute anemia 3. Blood transfusion 4. Left upper quadrant abdominal pain 5. Morbid obesity due to excess calories, BMI 60.1 PLAN: 1. Currently, patient undergoing blood transfusion. Recheck hemoglobin following transfusion 2. She reports new left upper quadrant abdominal pain in presence of diverticulosis. CT of the abdomen and pelvis ordered for intra-abdominal pathology Objective - Vital Signs Vital signs: Vital Signs Temp 97.6 F 05/24/22 14:03 Pulse 77 05/24/22 14:03 Resp 18 05/24/22 14:03 BP 124/73 05/24/22 14:03 Pulse Ox 100 05/24/22 14:03 FiO2 35 05/24/22 07:29 Intake & Output 05/23/22 05/24/22 05/24/22 18:59 06:59 18:59 Intake Total 289 840 0 Output Total 700 1100 900 Balance -525 -445 -795 Weight 158.757 kg Intake: Oral 840 Blood Product 289 0 Unit 0 Rc Pheresis As-3 Unit 289 [id number] Output: Urine 700 1100 900 Other: Voiding Method External Catheter External Catheter External Catheter # Bowel Movements 1 - Labs CBC & Chem 7: 05/24/22 07:07 05/24/22 07:07 Labs: Abnormal Lab Results - Last 24 Hours (Table) 05/22/22 05/23/22 05/23/22 Range/Units 05:50 17:22 20:27 RBC (4.10-5.20) X 10*6/uL Hgb (12.0-15.0) g/dL Hct (37.2-46.3) % MCHC (32.0-37.0) g/dL RDW (11.5-14.5) % Plt Count (140-440) X 10*3/uL Chloride (96-109) mmol/L Carbon Dioxide (20.0-27.5) mmol/L Anion Gap (10.00-18.00) mmol/L BUN (9.0-27.0) mg/dL Est GFR (CKD-EPI)AfAm (60.0-200.0) Est GFR (CKD-EPI)NonAf (60.0-200.0) BUN/Creatinine Ratio (12.00-20.00) Ratio Glucose (70-110) mg/dL POC Glucose (mg/dL) 271 H 353 H (70-110) mg/dL ALT (8-44) U/L Total Protein (6.2-8.2) g/dL Albumin (3.8-4.9) g/dL Albumin/Globulin Ratio (1.60-3.17) g/dL Crossmatch See Detail 05/24/22 05/24/22 05/24/22 Range/Units 07:03 07:07 07:07 RBC 2.29 L (4.10-5.20) X 10*6/uL Hgb 6.5 L* (12.0-15.0) g/dL Hct 21.3 L (37.2-46.3) % MCHC 30.5 L (32.0-37.0) g/dL RDW 16.7 H (11.5-14.5) % Plt Count 135 L (140-440) X 10*3/uL Chloride 95 L (96-109) mmol/L Carbon Dioxide 40.2 H* (20.0-27.5) mmol/L Anion Gap 6.60 L (10.00-18.00) mmol/L BUN 54.6 H (9.0-27.0) mg/dL Est GFR (CKD-EPI)AfAm 53.0 L (60.0-200.0) Est GFR (CKD-EPI)NonAf 45.7 L (60.0-200.0) BUN/Creatinine Ratio 46.27 H (12.00-20.00) Ratio Glucose 154 H (70-110) mg/dL POC Glucose (mg/dL) 183 H (70-110) mg/dL ALT 7 L (8-44) U/L Total Protein 5.2 L (6.2-8.2) g/dL Albumin 2.8 L (3.8-4.9) g/dL Albumin/Globulin Ratio 1.19 L (1.60-3.17) g/dL Crossmatch 05/24/22 Range/Units 11:20 RBC (4.10-5.20) X 10*6/uL Hgb (12.0-15.0) g/dL Hct (37.2-46.3) % MCHC (32.0-37.0) g/dL RDW (11.5-14.5) % Plt Count (140-440) X 10*3/uL Chloride (96-109) mmol/L Carbon Dioxide (20.0-27.5) mmol/L Anion Gap (10.00-18.00) mmol/L BUN (9.0-27.0) mg/dL Est GFR (CKD-EPI)AfAm (60.0-200.0) Est GFR (CKD-EPI)NonAf (60.0-200.0) BUN/Creatinine Ratio (12.00-20.00) Ratio Glucose (70-110) mg/dL POC Glucose (mg/dL) 256 H (70-110) mg/dL ALT (8-44) U/L Total Protein (6.2-8.2) g/dL Albumin (3.8-4.9) g/dL Albumin/Globulin Ratio (1.60-3.17) g/dL Crossmatch Microbiology - Last 24 Hours (Table) 05/22/22 20:00 Urine Culture - Preliminary Urine,Voided Gram Neg Bacilli
[2022-05-24] MEDS: IOPAMIDOL CONTRAST (ORAL USE) VIAL PO PRN ×2 (15:26→16:28)
[2022-05-24 16:47] LABS: Glucose,Whole Blood 287 mg/dL (70-110)
--- NOTE | 2022-05-24 17:31 | CT ---
EXAMINATION TYPE: CT abdomen pelvis wo con DATE OF EXAM: 05/24/2022 COMPARISON: None HISTORY: LUQ pain CT DLP: 2516 mGycm Automated exposure control for dose reduction was used. Images obtained from the diaphragm to the floor the pelvis with oral contrast only. There is some linear infiltrate and atelectasis at the lung bases. Heart is borderline enlarged. Ther e is coronary artery dense calcification no pleural effusion. There is gastric bariatric surgery. The re are clips from cholecystectomy. Liver and spleen are intact. The bile ducts are not dilated. No ev idence of pancreatic mass. There is no adrenal mass. Kidneys have normal size. No hydronephrosis. There is renal vascular calcif ication. Abdominal aorta is atheromatous. No retroperitoneal adenopathy. Appendix is lateral and appe ars normal. Ureters are not dilated. Bladder distends smoothly. No inguinal hernia. There is no mesenteric edema. No ascites or free air. No sign of a bowel obstruction. The lumbar vertebrae have fairly normal alignment. There is disc space narrowing in the mid and lower lumbar spine. No compression fracture. There is hypertrophic mild multilevel lumbar facet arthropath y. There is a minimal L4-5 spondylolisthesis. The bony pelvis is intact. The hip joints are intact. IMPRESSION: Previous surgery. Extensive atherosclerotic vascular disease. Mild linear infiltrate and atelectasis at the lung bases.
[2022-05-24 19:10] LABS: Basophils % (A) 0 %; Eosinophils # (A) 0.1 k/uL (0-0.7); Eosinophils % (A) 2 %; HCT 26.4 % (34.0-46.0); HGB 8.2 gm/dL (11.4-16.0); Hypochromasia Moderate; Lymphocytes # (A) 0.7 k/uL (1.0-4.8); Lymphocytes % (A) 11 %; MCH 28.4 pg (25.0-35.0); MCV 91.7 fL (80.0-100.0); Mean Platelet Volume 9.4; Monocytes # (A) 0.3 k/uL (0-1.0); Monocytes % (A) 4 %; Neutrophils # (A) 5.2 k/uL (1.3-7.7); Neutrophils % (A) 81 %; Platelet Count 169 k/uL (150-450); RBC 2.87 m/uL (3.80-5.40); RDW 15.8 % (11.5-15.5); WBC 6.4 k/uL (3.8-10.6)
[2022-05-24] MEDS: ATORVASTATIN 40 MG TAB PO SCH (20:04)
[2022-05-24 20:20] LABS: Glucose,Whole Blood 259 mg/dL (70-110)
[2022-05-25] MEDS: LEVOTHYROXINE 50 MCG TAB PO SCH (04:24)
[2022-05-25] MEDS ORDERED: LEVOTHYROXINE 50 MCG TAB PO SCH (06:07)
[2022-05-25] MEDS ORDERED: ACETAMINOPHEN TAB 325 MG TAB PO PRN (06:07)
[2022-05-25] MEDS: PANTOPRAZOLE 40 MG TABLET PO SCH (06:38)
[2022-05-25 07:15] LABS: Glucose,Whole Blood 220 mg/dL (70-110)
[2022-05-25] MEDS: GABAPENTIN 300 MG CAP PO SCH ×2 (07:22→20:13)
[2022-05-25] MEDS: MIRTAZAPINE 15 MG TAB PO SCH ×2 (07:22→20:12)
[2022-05-25] MEDS: OXYBUTYNIN CHLORIDE 5 MG TAB PO SCH ×2 (07:22→20:12)
[2022-05-25] MEDS: DOCUSATE 100 MG CAP PO SCH (07:22)
[2022-05-25] MEDS: INSULIN DETEMIR (LEVEMIR) 100 UNIT/ML SYR SQ SCH ×2 (08:34→17:29)
[2022-05-25] MEDS: INSULIN ASPART (NovoLOG) 100 UNIT/ML VIAL SQ SCH ×3 (08:34→17:28)
[2022-05-25] MEDS: ISOSORBIDE MONONITRATE ER 30 MG TAB.ER.24H PO SCH (08:38)
[2022-05-25] MEDS: METOPROLOL TARTRATE 50 MG TAB PO SCH ×3 (08:38→20:12)
[2022-05-25] MEDS: FUROSEMIDE 40 MG TAB PO SCH ×2 (08:39→17:29)
[2022-05-25 09:11] LABS: Basophils # (A) 0.03 X 10*3/uL (0.00-0.10); Basophils % (A) 0.5 %; Eosinophils # (A) 0.15 X 10*3/uL (0.04-0.35); Eosinophils % (A) 2.7 %; HCT 24.8 % (37.2-46.3); HGB 7.7 g/dL (12.0-15.0); Immature Grans, Automated 0.4 %; Lymphocytes # (A) 1.04 X 10*3/uL (0.90-5.00); Lymphocytes % (A) 18.8 %; MCH 28.6 pg (27.0-32.0); MCV 92.2 fL (80.0-97.0); Mean Platelet Volume 11.7 fL (9.5-12.2); Monocytes # (A) 0.42 X 10*3/uL (0.20-1.00); Monocytes % (A) 7.6 %; NRBC Per 100 WBC 0 /100 WBCS (0.0-0.0); Neutrophils # (A) 3.86 X 10*3/uL (1.80-7.70); Platelet Count 169 X 10*3/uL (140-440); RBC 2.69 X 10*6/uL (4.10-5.20); RDW 16.3 % (11.5-14.5); WBC 5.52 X 10*3/uL (4.50-10.00)
[2022-05-25 09:26] LABS: African American GFR (CKD) 51.9 (60.0-200.0); Albumin 3.1 g/dL (3.8-4.9); Albumin/Globulin Ratio 1.24 (1.60-3.17); BUN/Creat Ratio 41.25 Ratio (12.00-20.00); Blood Urea Nitrogen 49.5 mg/dL (9.0-27.0); Calcium 9.1 mg/dL (8.7-10.3); Globulin 2.5 g/dL (1.6-3.3); Non-African American GFR(CKD) 44.8 (60.0-200.0); Potassium 4.2 mmol/L (3.5-5.5); Total Protein 5.6 g/dL (6.2-8.2)
[2022-05-25 09:32] LABS: Anion Gap 6.8 mmol/L (10.00-18.00); Carbon Dioxide 40.2 mmol/L (20.0-27.5)
[2022-05-25 11:18] LABS: Glucose,Whole Blood 228 mg/dL (70-110)
[2022-05-25] MEDS ORDERED: LEVOFLOXACIN 500MG-D5W PMX 500 MG in DEXTROSE/WATER 1 100ML.BAG IVPB SCH (12:00)
[2022-05-25] MEDS ORDERED: PROPOFOL 10 MG/ML 20 ML VIAL IV ONE (14:29)
[2022-05-25] MEDS ORDERED: LIDOCAINE 2% INJ 20 MG/ML (2 ML VIAL) ONE (14:29)
[2022-05-25] MEDS ORDERED: SODIUM CHLORIDE 0.9% 500 ML 500 ML IV ONE ×2 (14:32)
--- NOTE | 2022-05-25 14:53 | P.OP ---
Date of Procedure: 05/25/22 Preoperative Diagnosis: GI bleed Postoperative Diagnosis: Mild antral gastritis Procedure(s) Performed: EGD Anesthesia: MAC Surgeon: Pablito Jay Pathology: other (Antrum) Condition: stable Disposition: PACU Description of Procedure: The patient's placed on the endoscopy table in the lateral position. She received IV sedation. The gastroscope placed oropharynx passed in the esophagus and stomach. Scope was then placed through the pylorus. The first and second portion of the duodenum appeared normal. Scope was then brought back the antrum this was mildly inflamed. A biopsies performed. Scope was then retroflexed and the remainder of the stomach appeared normal. The GE junction was at 40 cm per the distal esophagusAppeared normal. Proximal esophagus. Normal. Scope was withdrawn for patient. There was no evidence of any GI bleed.. Patient may need repeat colonoscopy.
--- NOTE | 2022-05-25 15:48 | P.PN ---
Subjective Progress Note Date: 05/25/22 Staff reported bright red blood with bowel movement during the night. Has received 3 units of packed RBCs since admission, last unit transfused on 05/24/2022. Hemoglobin currently 7.7. NPO, scheduled for EGD today. Denies abdominal pain. CT of abdomen and pelvis reporting previous surgery, extensive arteriosclerotic vascular disease, known mesenteric edema, ascites, free air or bowel obstruction, normal appendix, no inguinal hernia ,mild linear infiltrate/atelectasis bilateral bases-further review as per surgery. Objective - Vital Signs Vital signs: Vital Signs Temp 97.7 F 05/25/22 11:15 Pulse 79 05/25/22 11:15 Resp 18 05/25/22 11:15 BP 127/64 05/25/22 11:15 Pulse Ox 100 05/25/22 11:15 FiO2 35 05/25/22 00:36 Intake & Output 05/24/22 05/25/22 05/25/22 18:59 06:59 18:59 Intake Total 310 340 Output Total 900 1000 Balance -590 -660 Intake: Oral 340 Blood Product 310 Rc As-1 Unit 310 [id number] Output: Urine 900 1000 Other: Voiding Method External Catheter External Catheter External Catheter # Bowel Movements 1 - Exam - Exam General: Morbid obesity, alert and oriented 3,NAD. HEENT: [PERRL. EOMI. No pharyngeal erythema or exudate. Neck: Supple, no JVD Cardiac: [Heart regular in rate and rhythm. No S3. No S4. No clicks, rubs. No murmur.] Lungs: [Clear to auscultation bilaterally.] Abdomen: Soft, nontender, No organomegaly, no guarding. Positive Bowel sounds present. Extremes: [No edema no cyanosis no claudication normal pulses] Skin: [Warm and dry, No rash.] Neurologic: CN II - XII grossly intact. No focal deficits] - Labs CBC & Chem 7: 05/25/22 04:51 05/25/22 04:55 Labs: Abnormal Lab Results - Last 24 Hours (Table) 05/22/22 05/24/22 05/24/22 Range/Units 05:50 07:07 16:46 RBC (3.80-5.40) m/uL Hgb (11.4-16.0) gm/dL Hct (34.0-46.0) % MCHC (32.0-37.0) g/dL RDW (11.5-15.5) % Lymphocytes # (1.0-4.8) k/uL Chloride 95 L (96-109) mmol/L Carbon Dioxide 40.2 H* (20.0-27.5) mmol/L Anion Gap 6.60 L (10.00-18.00) mmol/L BUN 54.6 H (9.0-27.0) mg/dL Est GFR (CKD-EPI)AfAm 53.0 L (60.0-200.0) Est GFR (CKD-EPI)NonAf 45.7 L (60.0-200.0) BUN/Creatinine Ratio 46.27 H (12.00-20.00) Ratio Glucose 154 H (70-110) mg/dL POC Glucose (mg/dL) 287 H (70-110) mg/dL Total Bilirubin (0.30-1.20) mg/dL ALT 7 L (8-44) U/L Total Protein 5.2 L (6.2-8.2) g/dL Albumin 2.8 L (3.8-4.9) g/dL Albumin/Globulin Ratio 1.19 L (1.60-3.17) g/dL Crossmatch See Detail 05/24/22 05/24/22 05/25/22 Range/Units 18:42 20:18 04:51 RBC 2.87 L 2.69 L (3.80-5.40) m/uL Hgb 8.2 L 7.7 L (11.4-16.0) gm/dL Hct 26.4 L 24.8 L (34.0-46.0) % MCHC 31.0 L (32.0-37.0) g/dL RDW 15.8 H 16.3 H (11.5-15.5) % Lymphocytes # 0.7 L (1.0-4.8) k/uL Chloride (96-109) mmol/L Carbon Dioxide (20.0-27.5) mmol/L Anion Gap (10.00-18.00) mmol/L BUN (9.0-27.0) mg/dL Est GFR (CKD-EPI)AfAm (60.0-200.0) Est GFR (CKD-EPI)NonAf (60.0-200.0) BUN/Creatinine Ratio (12.00-20.00) Ratio Glucose (70-110) mg/dL POC Glucose (mg/dL) 259 H (70-110) mg/dL Total Bilirubin (0.30-1.20) mg/dL ALT (8-44) U/L Total Protein (6.2-8.2) g/dL Albumin (3.8-4.9) g/dL Albumin/Globulin Ratio (1.60-3.17) g/dL Crossmatch 05/25/22 05/25/22 05/25/22 Range/Units 04:55 07:14 11:16 RBC (3.80-5.40) m/uL Hgb (11.4-16.0) gm/dL Hct (34.0-46.0) % MCHC (32.0-37.0) g/dL RDW (11.5-15.5) % Lymphocytes # (1.0-4.8) k/uL Chloride 95 L (96-109) mmol/L Carbon Dioxide 40.2 H* (20.0-27.5) mmol/L Anion Gap 6.80 L (10.00-18.00) mmol/L BUN 49.5 H (9.0-27.0) mg/dL Est GFR (CKD-EPI)AfAm 51.9 L (60.0-200.0) Est GFR (CKD-EPI)NonAf 44.8 L (60.0-200.0) BUN/Creatinine Ratio 41.25 H (12.00-20.00) Ratio Glucose 178 H (70-110) mg/dL POC Glucose (mg/dL) 220 H 228 H (70-110) mg/dL Total Bilirubin 2.00 H (0.30-1.20) mg/dL ALT (8-44) U/L Total Protein 5.6 L (6.2-8.2) g/dL Albumin 3.1 L (3.8-4.9) g/dL Albumin/Globulin Ratio 1.24 L (1.60-3.17) g/dL Crossmatch Microbiology - Last 24 Hours (Table) 05/22/22 20:00 Urine Culture - Preliminary Urine,Voided Gram Neg Bacilli Assessment and Plan Assessment: (1) GI bleed in a patient with Acute on chronic anemia, status post transfusion of 3 units packed RBCs. Recent EGD, colonoscopy reporting an nonbleeding antral ulceration, suspected diverticular bleeding previously with anticoagulation resumed post endoscopy procedures as per surgery's recommendations. Current Visit: Yes Status: Acute Code(s): K92.2 - GASTROINTESTINAL HEMORRHAGE, UNSPECIFIED SNOMED Code(s): 45507784 Current Visit: No Status: Acute Code(s): D64.9 - ANEMIA, UNSPECIFIED SNOMED Code(s): 366451784 (2) Atrial fibrillation, chronic Current Visit: No Status: Acute Code(s): I48.91 - UNSPECIFIED ATRIAL FIBRILLATION SNOMED Code(s): 42316318 (3) CKD (chronic kidney disease) Current Visit: Yes Status: Acute Code(s): N18.9 - CHRONIC KIDNEY DISEASE, UNSPECIFIED SNOMED Code(s): 444459600 (4) CAD, mild aortic stenosis, severe tricuspid regurgitation (5) diabetes mellitus, A1c 6.9 (6)Acute on chronic diastolic (congestive) heart failure Current Visit: No Status: Acute Code(s): I50.33 - ACUTE ON CHRONIC DIASTOLIC (CONGESTIVE) HEART FAILURE SNOMED Code(s): 828459324 (7 obstructive sleep apnea, hypercapnic respiratory failure, requiring BiPAP) Plan: Continue on current medication regime, monitoring and symptomatic treatment. Anticoagulation on hold, NPO, EGD pending. Close monitoring of hemoglobin. Prognosis guarded given multiple complex medical issues. The impression and plan of care has been dictated as directed. : I performed a history and examination of this patient, discussed the same with the dictator. I agree with the dictator's note ,documented as a scribe. Any additional findings or plans will be noted.
[2022-05-25 17:15] LABS: Glucose,Whole Blood 250 mg/dL (70-110)
[2022-05-25 20:08] LABS: Glucose,Whole Blood 280 mg/dL (70-110)
[2022-05-25] MEDS: ATORVASTATIN 40 MG TAB PO SCH (20:12)
[2022-05-26] MEDS: LEVOTHYROXINE 50 MCG TAB PO SCH (04:16)
[2022-05-26 07:07] LABS: Glucose,Whole Blood 171 mg/dL (70-110)
[2022-05-26] MEDS: INSULIN ASPART (NovoLOG) 100 UNIT/ML VIAL SQ SCH ×3 (08:19→17:48)
[2022-05-26] MEDS: ISOSORBIDE MONONITRATE ER 30 MG TAB.ER.24H PO SCH (08:19)
[2022-05-26] MEDS: METOPROLOL TARTRATE 50 MG TAB PO SCH ×3 (08:20→21:18)
[2022-05-26] MEDS: GABAPENTIN 300 MG CAP PO SCH ×2 (08:20→21:18)
[2022-05-26] MEDS: INSULIN DETEMIR (LEVEMIR) 100 UNIT/ML SYR SQ SCH (08:20)
[2022-05-26] MEDS: FUROSEMIDE 40 MG TAB PO SCH ×2 (08:20→17:48)
[2022-05-26] MEDS: DOCUSATE 100 MG CAP PO SCH (08:20)
[2022-05-26] MEDS: OXYBUTYNIN CHLORIDE 5 MG TAB PO SCH ×2 (08:20→21:17)
[2022-05-26] MEDS: PANTOPRAZOLE 40 MG TABLET PO SCH (08:20)
[2022-05-26 09:44] LABS: African American GFR (CKD) 52 (>60 ml/min/1.73 sqM); Anion Gap 8 mmol/L; Blood Urea Nitrogen 50 mg/dL (7-17); Calcium 8.4 mg/dL (8.4-10.2); Carbon Dioxide 37 mmol/L (22-30); Chloride 90 mmol/L (98-107); Glucose 219 mg/dL (74-99); Non-African American GFR(CKD) 45 (>60 ml/min/1.73 sqM); Potassium 3.6 mmol/L (3.5-5.1); Sodium 135 mmol/L (137-145)
[2022-05-26 10:00] LABS: HCT 24.9 % (34.0-46.0); HGB 8.3 gm/dL (11.4-16.0); Hypochromasia Slight; MCHC 33.1 g/dL (31.0-37.0); MCV 90.4 fL (80.0-100.0); Mean Platelet Volume 9.5; RBC 2.76 m/uL (3.80-5.40); WBC 6.4 k/uL (3.8-10.6)
[2022-05-26 11:03] LABS: Glucose,Whole Blood 289 mg/dL (70-110)
[2022-05-26] MEDS ORDERED: PIPERACILLIN-TAZOBACTAM 3.375 GM in SODIUM CHLORIDE 0.9% 100 ML IVPB STA (12:09)
[2022-05-26] MEDS ORDERED: MEROPENEM 1 GM in SODIUM CHLORIDE 0.9% 100 ML IVPB SCH (12:14)
[2022-05-26] MEDS ORDERED: ERTAPENEM 1 GM in SODIUM CHLORIDE 0.9% 50 ML IVPB SCH (12:15)
[2022-05-26 12:39] LABS: Platelet Count 120 k/uL (150-450)
[2022-05-26] MEDS: MEROPENEM 500 MG in SODIUM CHLORIDE 0.9% 100 ML IVPB SCH ×2 (12:42→21:15)
--- NOTE | 2022-05-26 15:10 | P.GSCN ---
History of Present Illness Consult date: 05/22/22 History of present illness: Please note that consult was accidentally dictated under a progress note on 05/22/2022. Report has been recopied into a consult document. CHIEF COMPLAINT: GI bleed HISTORY OF PRESENT ILLNESS: This is a 72-year-old female who has a history of atrial fibrillation and on Eliquis. She had recent EGD and colonoscopy on last hospitalization for GI bleed completed on 05/14/2022 which did show a small antral ulcer diverticulosis and right colon polyp. She presented back to the ER due to a low hemoglobin on blood work of 7.1. Also had reported dark stools. Rectal exam in ER did show right red blood in it. Her stool for occult blood is positive. Her last hemoglobin was 7.0 she received a unit of blood. Hemoglobin on discharge 05/15/2022 was 8.1. Patient does report epigastric abdominal pain and close to the old LAP-BAND site and lower abdominal pain. She denies any nausea or vomiting. She denies any fever chills or sweats. Patient seen and examined with Dr. haile PAST MEDICAL HISTORY: See list. PAST SURGICAL HISTORY: See list. MEDICATIONS: See list. ALLERGIES: See list. SOCIAL HISTORY: No illicit drug use. REVIEW OF SYSTEMS: CONSTITUTIONAL: Denies fever or chills. HEENT: Denies blurred vision, vision changes, or eye pain. Denies hemoptysis CARDIOVASCULAR: Denies chest pain or pressure. RESPIRATORY: No shortness of breath. GASTROINTESTINAL: See HPI for pertinent findings HEMATOLOGIC: Denies bleeding disorders. GENITOURINARY: Denies any blood in urine or increased urinary frequency. SKIN: Denies pruitis. Denies rash. PHYSICAL EXAM: VITAL SIGNS: Reviewed GENERAL: Well-developed in no acute distress. HEENT: No sclera icterus. Extraocular movements grossly intact. Moist buccal mucosa. Head is atraumatic, normocephalic. No nasal drainage. ABDOMEN: Soft. Obese. Nondistended. Tenderness to palpation epigastric area, near the lap band port and lower abdomen NEUROLOGIC: Alert and oriented. Cranial nerves II through XII grossly intact. LABORATORY DATA: WBC is 7.7 hemoglobin 7.1 platelets 168 sodium is 139 potassium is 5.3 creatinine 1.52 stool for occult blood positive IMAGING: ASSESSMENT: 1. Acute GI bleed with acute blood loss anemia 2. Bright red blood per rectum 3. History of chronic anemia 4. History of atrial fibrillation on Eliquis 5. Recent EGD and colonoscopy with a small antral ulcer, diverticulosis and right colon polyp PLAN: -Patient scheduled for EGD on 05/25/[address] haile -Continue IV Protonix -Hold Eliquis -Okay to start clear liquid diet -Continue monitoring hemoglobin -Continue to monitor for any signs or symptoms of bleeding Physician Software Licensing Analyst note has been reviewed by physician. Signing provider agrees with the documented findings, assessment, and plan of care. Past Medical History Past Medical History: Atrial Fibrillation, Coronary Artery Disease (CAD), Diabetes Mellitus, Eye Disorder, Hyperlipidemia, Hypertension, Osteoarthritis (OA), Pneumonia, Renal Disease, Sleep Apnea/CPAP/BIPAP, Thyroid Disorder Additional Past Medical History / Comment(s): Pt recently admitted to [facility] on 05/08/22 with anemia/had EGD and colonoscopy which showed nonbleeding stomach ulcer/diverticular disease and colon polyp, pt received blood transfusions. Other hx: 02/12/22 covid/pneumonia/sepsis, other past pneumonias, acute hypoxic respiratory failure/now on home oxygen ATC, new A fib with RVR, IDDM type II, neuropathy bilateral feet, L eye retinal bleed/lasik eye surgery, R eye cataract, bilateral eye macular degeneration/gets injections/poor vision, CKD stage III, anemia, UTI/sepsis, bilateral leg lymphedema, FLOERS/does not have cpap machine at this time, diverticulitis, gout, chronic back pain, rheumatic fever, hypothyroid. History of Any Multi-Drug Resistant Organisms: None Reported Past Surgical History: Bariatric Surgery, Section, Cholecystectomy, Coronary Bypass/CABG, Heart Catheterization, Hysterectomy, Orthopedic Surgery, Tonsillectomy Additional Past Surgical History / Comment(s): EGD, colonoscopy, 2 vessel CABG in 1996, bilateral carpal tunnel release, lap band, L eye laser surgery, Past Anesthesia/Blood Transfusion Reactions: No Reported Reaction Smoking Status: Never smoker - Past Family History Father Family Medical History: Cancer, Coronary Artery Disease (CAD), Diabetes Mellitus Additional Family Medical History / Comment(s): Prostate cancer Mother Family Medical History: Cancer Additional Family Medical History / Comment(s): Bone cancer. Medications and Allergies Home Medications Medication Instructions Recorded Confirmed Type Atorvastatin [Lipitor] 40 mg PO HS 08/10/16 05/22/22 History Isosorbide Mononitrate [Isosorbide 30 mg PO DAILY 08/10/16 05/22/22 History Mononitrate ER] Oxybutynin Chloride 5 mg PO BID 08/10/16 05/22/22 History Metoprolol Tartrate [Lopressor] 50 mg PO TID@0900,1300,2100 04/12/22 05/22/22 History Mirtazapine [Remeron] 15 mg PO HS 04/12/22 05/22/22 History Acetaminophen Tab [Tylenol] 650 mg PO Q6H PRN 05/08/22 05/22/22 History Docusate [Colace] 100 mg PO DAILY 05/08/22 05/22/22 History Furosemide [Lasix] 40 mg PO DAILY@0600,1400 05/08/22 05/22/22 History Insulin Glargine-Yfgn [Semglee 50 units SQ DAILY 05/08/22 05/22/22 History (Yfgn) Pen] Insulin Lispro [humaLOG Kwikpen] 5 unit SQ TID@0800,1200,1700 05/08/22 05/22/22 History Insulin Lispro [humaLOG Kwikpen] See Protocol SQ ACHS 05/08/22 05/22/22 History Potassium Chloride ER [K-Dur 20] 20 meq PO DAILY 05/08/22 05/22/22 History Gabapentin [Neurontin] 300 mg PO BID 05/22/22 05/22/22 History Heparin Sodium,Porcine [Heparin 5,000 unit SQ Q12H 05/22/22 05/22/22 History Sodium] Levothyroxine Sodium [Synthroid] 50 mcg PO DAILY@0600 05/22/22 05/22/22 History Omeprazole [PriLOSEC] 20 mg PO DAILY@0600 05/22/22 05/22/22 History Allergies Allergy/AdvReac Type Severity Reaction Status Date / Time ibuprofen [From Motrin] Allergy Rash/Hives Verified 05/22/22 08:27 Penicillins Allergy Anaphylaxis Verified 05/22/22 08:27 Surgical - Exam Vital Signs Temp Pulse Resp BP Pulse Ox 98.2 F 88 15 101/68 97 05/22/22 04:55 05/22/22 04:55 05/22/22 04:55 05/22/22 04:55 05/22/22 04:55 Results - Labs 05/26/22 09:17 05/26/22 09:17 Abnormal Lab Results - Last 24 Hours (Table) 05/25/22 05/25/22 05/26/22 Range/Units 17:13 20:07 07:06 RBC (3.80-5.40) m/uL Hgb (11.4-16.0) gm/dL Hct (34.0-46.0) % RDW (11.5-15.5) % Plt Count (150-450) k/uL Sodium (137-145) mmol/L Chloride (98-107) mmol/L Carbon Dioxide (22-30) mmol/L BUN (7-17) mg/dL Creatinine (0.52-1.04) mg/dL Glucose (74-99) mg/dL POC Glucose (mg/dL) 250 H 280 H 171 H (70-110) mg/dL 05/26/22 05/26/22 05/26/22 Range/Units 09:17 09:17 11:02 RBC 2.76 L (3.80-5.40) m/uL Hgb 8.3 L (11.4-16.0) gm/dL Hct 24.9 L (34.0-46.0) % RDW 16.0 H (11.5-15.5) % Plt Count 120 L (150-450) k/uL Sodium 135 L (137-145) mmol/L Chloride 90 L (98-107) mmol/L Carbon Dioxide 37 H (22-30) mmol/L BUN 50 H (7-17) mg/dL Creatinine 1.21 H (0.52-1.04) mg/dL Glucose 219 H (74-99) mg/dL POC Glucose (mg/dL) 289 H (70-110) mg/dL Microbiology - Last 24 Hours (Table) 05/22/22 20:00 Urine Culture - Final Urine,Voided Klebsiella pneumoniae Diabetes panel 05/26/22 Range/Units 09:17 Sodium 135 L (137-145) mmol/L Potassium 3.6 (3.5-5.1) mmol/L Chloride 90 L (98-107) mmol/L Carbon Dioxide 37 H (22-30) mmol/L BUN 50 H (7-17) mg/dL Creatinine 1.21 H (0.52-1.04) mg/dL Glucose 219 H (74-99) mg/dL Calcium 8.4 (8.4-10.2) mg/dL Calcium panel 05/26/22 Range/Units 09:17 Calcium 8.4 (8.4-10.2) mg/dL Pituitary panel 05/26/22 Range/Units 09:17 Sodium 135 L (137-145) mmol/L Potassium 3.6 (3.5-5.1) mmol/L Chloride 90 L (98-107) mmol/L Carbon Dioxide 37 H (22-30) mmol/L BUN 50 H (7-17) mg/dL Creatinine 1.21 H (0.52-1.04) mg/dL Glucose 219 H (74-99) mg/dL Calcium 8.4 (8.4-10.2) mg/dL Adrenal panel 05/26/22 Range/Units 09:17 Sodium 135 L (137-145) mmol/L Potassium 3.6 (3.5-5.1) mmol/L Chloride 90 L (98-107) mmol/L Carbon Dioxide 37 H (22-30) mmol/L BUN 50 H (7-17) mg/dL Creatinine 1.21 H (0.52-1.04) mg/dL Glucose 219 H (74-99) mg/dL Calcium 8.4 (8.4-10.2) mg/dL
--- NOTE | 2022-05-26 15:14 | P.PN ---
Subjective Progress Note Date: 05/26/22 CHIEF COMPLAINT: GI bleed HISTORY OF PRESENT ILLNESS: Patient is sitting up at bedside chair. She's had no further bleeding. She did have bowel movements. EGD had revealed evidence of mild gastritis. There was no evidence of any GI bleed. Afebrile. Hemoglobin stable at 8.3 Patient seen and examined with Dr. haile PHYSICAL EXAM: VITAL SIGNS: Reviewed. GENERAL: Well-developed in no acute distress. HEENT: No sclera icterus. Extraocular movements grossly intact. Moist buccal mucosa. Head is atraumatic, normocephalic. ABDOMEN: Soft. Nondistended. Nontender. NEUROLOGIC: Alert and oriented. Cranial nerves II through XII grossly intact. ASSESSMENT: 1. Acute GI bleed status post EGD revealing antral gastritis 2. Recent small antral ulcer, diverticulosis and right colon polyp on prior EGD and colonoscopy PLAN: -Patient has had no further evidence of GI bleeding -Advance diet to regular -Recommend no oral anticoagulation for this patient. Would not recommend restarting the Eliquis. Physician Electrical Prospecting Operator note has been reviewed by physician. Signing provider agrees with the documented findings, assessment, and plan of care. Objective - Vital Signs Vital signs: Vital Signs Temp 97.8 F 05/26/22 14:56 Pulse 94 05/26/22 14:56 Resp 14 05/26/22 14:56 BP 119/67 05/26/22 14:56 Pulse Ox 100 05/26/22 14:56 FiO2 35 05/26/22 07:36 Intake & Output 05/25/22 05/26/22 05/26/22 18:59 06:59 18:59 Intake Total 200 400 Output Total 950 500 Balance -750 -100 Weight 158.757 kg Intake: IV 200 Oral 400 Output: Urine 950 500 Other: Voiding Method External Catheter External Catheter External Catheter # Bowel Movements 1 - Labs CBC & Chem 7: 05/26/22 09:17 05/26/22 09:17 Labs: Abnormal Lab Results - Last 24 Hours (Table) 05/25/22 05/25/22 05/26/22 Range/Units 17:13 20:07 07:06 RBC (3.80-5.40) m/uL Hgb (11.4-16.0) gm/dL Hct (34.0-46.0) % RDW (11.5-15.5) % Plt Count (150-450) k/uL Sodium (137-145) mmol/L Chloride (98-107) mmol/L Carbon Dioxide (22-30) mmol/L BUN (7-17) mg/dL Creatinine (0.52-1.04) mg/dL Glucose (74-99) mg/dL POC Glucose (mg/dL) 250 H 280 H 171 H (70-110) mg/dL 05/26/22 05/26/22 05/26/22 Range/Units 09:17 09:17 11:02 RBC 2.76 L (3.80-5.40) m/uL Hgb 8.3 L (11.4-16.0) gm/dL Hct 24.9 L (34.0-46.0) % RDW 16.0 H (11.5-15.5) % Plt Count 120 L (150-450) k/uL Sodium 135 L (137-145) mmol/L Chloride 90 L (98-107) mmol/L Carbon Dioxide 37 H (22-30) mmol/L BUN 50 H (7-17) mg/dL Creatinine 1.21 H (0.52-1.04) mg/dL Glucose 219 H (74-99) mg/dL POC Glucose (mg/dL) 289 H (70-110) mg/dL Microbiology - Last 24 Hours (Table) 05/22/22 20:00 Urine Culture - Final Urine,Voided Klebsiella pneumoniae
[2022-05-26 17:10] LABS: Glucose,Whole Blood 383 mg/dL (70-110)
--- NOTE | 2022-05-26 18:32 | P.PN ---
Subjective Progress Note Date: 05/26/22 Staff reported bright red blood with bowel movement during the night. Has received 3 units of packed RBCs since admission, last unit transfused on 05/24/2022. Hemoglobin currently 7.7. NPO, scheduled for EGD today. Denies abdominal pain. CT of abdomen and pelvis reporting previous surgery, extensive arteriosclerotic vascular disease, known mesenteric edema, ascites, free air or bowel obstruction, normal appendix, no inguinal hernia ,mild linear infiltrate/atelectasis bilateral bases-further review as per surgery. 05/26/2022 - stable, no further bleeding reported , EGD completed yesterday reported mild gastritis with no evidence of active GI bleed ,hemoglobin stable at 8.3. Surgery recommends anticoagulation continue to be held at this time. BUN 50, creatinine 1.2. Hemoglobin A1c 6.9 on 05/08/2022. Urine culture reporting Klebsiella pneumoniae/ESBL. IV antibiotics adjusted, infectious disease consulted. Denies nausea vomiting or diarrhea. Denies abdominal pain. Denies chest pain, palpitations or shortness of breath. Objective - Vital Signs Vital signs: Vital Signs Temp 98.1 F 05/26/22 11:05 Pulse 82 05/26/22 11:05 Resp 18 05/26/22 11:05 BP 93/65 05/26/22 11:05 Pulse Ox 99 05/26/22 11:05 FiO2 35 05/26/22 07:36 Intake & Output 05/25/22 05/26/22 05/26/22 18:59 06:59 18:59 Intake Total 200 400 Output Total 950 500 Balance -750 -100 Intake: IV 200 Oral 400 Output: Urine 950 500 Other: Voiding Method External Catheter External Catheter External Catheter # Bowel Movements 1 - Exam - Exam General: Morbid obesity, alert and oriented 3, sitting up in chair, NAD Neck: Supple, no JVD Cardiac: [Heart regular in rate and rhythm. No S3. No S4. No clicks, rubs. No murmur.] Lungs: [Clear to auscultation bilaterally.] Abdomen: Soft, nontender, No organomegaly, no guarding. Positive Bowel sounds present. Extremes: [No edema no cyanosis no claudication normal pulses] Skin: [Warm and dry, No rash.] Neurologic: CN II - XII grossly intact. No focal deficits] - Labs CBC & Chem 7: 05/26/22 09:17 05/26/22 09:17 Labs: Abnormal Lab Results - Last 24 Hours (Table) 05/25/22 05/25/22 05/26/22 Range/Units 17:13 20:07 07:06 RBC (3.80-5.40) m/uL Hgb (11.4-16.0) gm/dL Hct (34.0-46.0) % RDW (11.5-15.5) % Sodium (137-145) mmol/L Chloride (98-107) mmol/L Carbon Dioxide (22-30) mmol/L BUN (7-17) mg/dL Creatinine (0.52-1.04) mg/dL Glucose (74-99) mg/dL POC Glucose (mg/dL) 250 H 280 H 171 H (70-110) mg/dL 05/26/22 05/26/22 05/26/22 Range/Units 09:17 09:17 11:02 RBC 2.76 L (3.80-5.40) m/uL Hgb 8.3 L (11.4-16.0) gm/dL Hct 24.9 L (34.0-46.0) % RDW 16.0 H (11.5-15.5) % Sodium 135 L (137-145) mmol/L Chloride 90 L (98-107) mmol/L Carbon Dioxide 37 H (22-30) mmol/L BUN 50 H (7-17) mg/dL Creatinine 1.21 H (0.52-1.04) mg/dL Glucose 219 H (74-99) mg/dL POC Glucose (mg/dL) 289 H (70-110) mg/dL Microbiology - Last 24 Hours (Table) 05/22/22 20:00 Urine Culture - Final Urine,Voided Klebsiella pneumoniae Assessment and Plan Assessment: (1) acute GI bleed in a patient with Acute on chronic anemia, status post transfusion of 3 units packed RBCs. Recent EGD, colonoscopy reporting an nonbleeding antral ulceration, suspected diverticular bleeding previously with anticoagulation resumed post endoscopy procedures as per surgery's recommendations. Current EGD reporting antral gastritis. Current Visit: Yes Status: Acute Code(s): K92.2 - GASTROINTESTINAL HEMORRHAGE, UNSPECIFIED SNOMED Code(s): 67808845 Current Visit: No Status: Acute Code(s): D64.9 - ANEMIA, UNSPECIFIED SNOMED Code(s): 659350257 (2) Atrial fibrillation, chronic Current Visit: No Status: Acute Code(s): I48.91 - UNSPECIFIED ATRIAL FIBRILLATION SNOMED Code(s): 78831196 (3) CKD (chronic kidney disease) Current Visit: Yes Status: Acute Code(s): N18.9 - CHRONIC KIDNEY DISEASE, UNSPECIFIED SNOMED Code(s): 295546061 (4) CAD, mild aortic stenosis, severe tricuspid regurgitation (5) diabetes mellitus, A1c 6.9 (6)Acute on chronic diastolic (congestive) heart failure Current Visit: No Status: Acute Code(s): I50.33 - ACUTE ON CHRONIC DIASTOLIC (CONGESTIVE) HEART FAILURE SNOMED Code(s): 925422337 (7 obstructive sleep apnea, hypercapnic respiratory failure, requiring BiPAP) (8) acute UTI with ESBL, Klebsiella pneumoniae Plan: Continue on current medication regime, monitoring and symptomatic treatment. Anticoagulation on hold. Close monitoring of hemoglobin. As mentioned above antibiotics adjusted, and infectious disease consulted, regarding ALLERGIES and ESBL/Klebsiella pneumoniae UTI. Discharge planning in progress for ECF. The impression and plan of care has been dictated as directed. : I performed a history and examination of this patient, discussed the same with the dictator. I agree with the dictator's note ,documented as a scribe. Any additional findings or plans will be noted.
[2022-05-26 20:30] LABS: Glucose,Whole Blood 378 mg/dL (70-110)
[2022-05-26] MEDS ORDERED: INSULIN DETEMIR (LEVEMIR) 100 UNIT/ML SYR SQ SCH (21:00)
[2022-05-26] MEDS: ATORVASTATIN 40 MG TAB PO SCH (21:18)
[2022-05-26] MEDS: MIRTAZAPINE 15 MG TAB PO SCH (23:10)
--- NOTE | 2022-05-26 23:38 | P.CONS ---
History of Present Illness - Reason for Consult Consult date: 05/26/22 - History of Present Illness Patient is a 72-year-old female with a past medical history difficult for hypertension hyperlipidemia diabetes atrial fibrillation presenting to the hospital 4 days ago on 05/22/2022 for evaluation of low hemoglobin that was done in the outpatient setting and there was concern for possible GI bleed patient apparently was Noticed to have slightly darker stools at the [facility] but no active bleeding, the patient denies having any nausea no vomiting no abdominal pain or any diarrhea patient on presentation to the hospital was afebrile and no fever and recorded subsequently patient did have a normal white count did have a positive UA with urine has been finalized with ESBL Klebsiella patient antibiotic was switched over to meropenem 5 mg every 8 hour infectious disease was consulted for further management of antibiotic therapy, patient did have a mild burning of urine but no hematuria suprapubic or flank pain patient did have a CT of abdominal pelvis this admission did not show any hydronephrosis or any abnormality of the bladder Past Medical History Past Medical History: Atrial Fibrillation, Coronary Artery Disease (CAD), Polly betes Mellitus, Eye Disorder, Hyperlipidemia, Hypertension, Osteoarthritis (OA), Pneumonia, Renal Disease, Sleep Apnea/CPAP/BIPAP, Thyroid Disorder Additional Past Medical History / Comment(s): Pt recently admitted to [facility] on 05/08/22 with anemia/had EGD and colonoscopy which showed nonbleeding stomach ulcer/diverticular disease and colon polyp, pt received blood transfusions. Other hx: 02/12/22 covid/pneumonia/sepsis, other past pneumonias, acute hypoxic respiratory failure/now on home oxygen ATC, new A fib with RVR, IDDM type II, neuropathy bilateral feet, L eye retinal bleed/lasik eye surgery, R eye cataract, bilateral eye macular degeneration/gets injections/poor vision, CKD stage III, anemia, UTI/sepsis, bilateral leg lymphedema, FLORES/does not have cpap machine at this time, diverticulitis, gout, chronic back pain, rheumatic fever, hypothyroid. History of Any Multi-Drug Resistant Organisms: None Reported Past Surgical History: Bariatric Surgery, Section, Cholecystectomy, Coronary Bypass/CABG, Heart Catheterization, Hysterectomy, Orthopedic Surgery, Tonsillectomy Additional Past Surgical History / Comment(s): EGD, colonoscopy, 2 vessel CABG in 1996, bilateral carpal tunnel release, lap band, L eye laser surgery, Past Anesthesia/Blood Transfusion Reactions: No Reported Reaction Smoking Status: Never smoker - Past Family History Father Family Medical History: Cancer, Coronary Artery Disease (CAD), Diabetes Mellitus Additional Family Medical History / Comment(s): Prostate cancer Mother Family Medical History: Cancer Additional Family Medical History / Comment(s): Bone cancer. Medications and Allergies Home Medications Medication Instructions Recorded Confirmed Type Atorvastatin [Lipitor] 40 mg PO HS 08/10/16 05/22/22 History Isosorbide Mononitrate [Isosorbide 30 mg PO DAILY 08/10/16 05/22/22 History Mononitrate ER] Oxybutynin Chloride 5 mg PO BID 08/10/16 05/22/22 History Metoprolol Tartrate [Lopressor] 50 mg PO TID@0900,1300,2100 04/12/22 05/22/22 History Mirtazapine [Remeron] 15 mg PO HS 04/12/22 05/22/22 History Acetaminophen Tab [Tylenol] 650 mg PO Q6H PRN 05/08/22 05/22/22 History Docusate [Colace] 100 mg PO DAILY 05/08/22 05/22/22 History Furosemide [Lasix] 40 mg PO DAILY@0600,1400 05/08/22 05/22/22 History Insulin Glargine-Yfgn [Semglee 50 units SQ DAILY 05/08/22 05/22/22 History (Yfgn) Pen] Insulin Lispro [humaLOG Kwikpen] 5 unit SQ TID@0800,1200,1700 05/08/22 05/22/22 History Insulin Lispro [humaLOG Kwikpen] See Protocol SQ ACHS 05/08/22 05/22/22 History Potassium Chloride ER [K-Dur 20] 20 meq PO DAILY 05/08/22 05/22/22 History Gabapentin [Neurontin] 300 mg PO BID 05/22/22 05/22/22 History Heparin Sodium,Porcine [Heparin 5,000 unit SQ Q12H 05/22/22 05/22/22 History Sodium] Levothyroxine Sodium [Synthroid] 50 mcg PO DAILY@0600 05/22/22 05/22/22 History Omeprazole [PriLOSEC] 20 mg PO DAILY@0600 05/22/22 05/22/22 History Allergies Allergy/AdvReac Type Severity Reaction Status Date / Time ibuprofen [From Motrin] Allergy Rash/Hives Verified 05/22/22 08:27 Penicillins Allergy Anaphylaxis Verified 05/22/22 08:27 Physical Exam Vitals: Vital Signs Temp Pulse Resp BP Pulse Ox FiO2 05/26/22 14:56 97.8 F 94 14 119/67 100 05/26/22 11:05 98.1 F 82 18 93/65 99 05/26/22 07:36 35 05/26/22 04:15 99.5 F 81 20 111/63 97 05/26/22 03:44 35 05/25/22 23:12 35 05/25/22 21:00 97.6 F 86 18 118/65 100 05/25/22 20:05 18 Intake and Output 05/26/22 05/26/22 05/26/22 06:59 14:59 22:59 Intake Total 400 Output Total 500 Balance -100 Intake: Oral 400 Output: Urine 500 Other: Voiding Method External Catheter Weight 158.757 kg Results CBC & Chem 7: 05/26/22 09:17 05/26/22 09:17 Labs: Abnormal Lab Results - Last 24 Hours (Table) 05/25/22 05/26/22 05/26/22 Range/Units 20:07 07:06 09:17 RBC 2.76 L (3.80-5.40) m/uL Hgb 8.3 L (11.4-16.0) gm/dL Hct 24.9 L (34.0-46.0) % RDW 16.0 H (11.5-15.5) % Plt Count 120 L (150-450) k/uL Sodium (137-145) mmol/L Chloride (98-107) mmol/L Carbon Dioxide (22-30) mmol/L BUN (7-17) mg/dL Creatinine (0.52-1.04) mg/dL Glucose (74-99) mg/dL POC Glucose (mg/dL) 280 H 171 H (70-110) mg/dL 05/26/22 05/26/22 05/26/22 Range/Units 09:17 11:02 17:09 RBC (3.80-5.40) m/uL Hgb (11.4-16.0) gm/dL Hct (34.0-46.0) % RDW (11.5-15.5) % Plt Count (150-450) k/uL Sodium 135 L (137-145) mmol/L Chloride 90 L (98-107) mmol/L Carbon Dioxide 37 H (22-30) mmol/L BUN 50 H (7-17) mg/dL Creatinine 1.21 H (0.52-1.04) mg/dL Glucose 219 H (74-99) mg/dL POC Glucose (mg/dL) 289 H 383 H (70-110) mg/dL Microbiology - Last 24 Hours (Table) 05/22/22 20:00 Urine Culture - Final Urine,Voided Klebsiella pneumoniae Assessment and Plan Plan: 1patient presented to hospital with weakness low hemoglobin in this patient who did have a mildly positive UA mild symptoms likely cystitis clinically not behaving as pyelonephritis in this patient with no fever or elevated white count. 2patient to continue with the meropenem plan is for a total of 3-day course of treatment should be more than enough for a simple cystitis. We will follow on clinical condition and cultures to further adjust medication if needed Thank you for this consultation will follow this patient along with you Time with Patient: Greater than 30
[2022-05-27] MEDS: MEROPENEM 500 MG in SODIUM CHLORIDE 0.9% 100 ML IVPB SCH ×3 (04:28→21:08)
[2022-05-27] MEDS: LEVOTHYROXINE 50 MCG TAB PO SCH (06:37)
[2022-05-27 07:09] LABS: Glucose,Whole Blood 273 mg/dL (70-110)
[2022-05-27] MEDS: INSULIN DETEMIR (LEVEMIR) 100 UNIT/ML SYR SQ SCH (08:13)
[2022-05-27] MEDS: FUROSEMIDE 40 MG TAB PO SCH ×2 (08:13→15:41)
[2022-05-27] MEDS: INSULIN ASPART (NovoLOG) 100 UNIT/ML VIAL SQ SCH ×3 (08:13→17:31)
[2022-05-27] MEDS: GABAPENTIN 300 MG CAP PO SCH ×2 (08:13→21:08)
[2022-05-27] MEDS: ISOSORBIDE MONONITRATE ER 30 MG TAB.ER.24H PO SCH (08:13)
[2022-05-27] MEDS: PANTOPRAZOLE 40 MG TABLET PO SCH (08:13)
[2022-05-27] MEDS: DOCUSATE 100 MG CAP PO SCH (08:13)
[2022-05-27] MEDS: OXYBUTYNIN CHLORIDE 5 MG TAB PO SCH ×2 (08:13→21:55)
[2022-05-27] MEDS: METOPROLOL TARTRATE 50 MG TAB PO SCH ×3 (08:13→21:08)
[2022-05-27 09:02] LABS: Basophils # (A) 0.02 X 10*3/uL (0.00-0.10); Basophils % (A) 0.3 %; Eosinophils # (A) 0.15 X 10*3/uL (0.04-0.35); Eosinophils % (A) 2.6 %; HCT 22.2 % (37.2-46.3); Immature Grans, Automated 0.5 %; Lymphocytes # (A) 0.84 X 10*3/uL (0.90-5.00); Lymphocytes % (A) 14.3 %; MCH 28.8 pg (27.0-32.0); MCHC 31.5 g/dL (32.0-37.0); MCV 91.4 fL (80.0-97.0); Mean Platelet Volume 10.7 fL (9.5-12.2); Monocytes # (A) 0.53 X 10*3/uL (0.20-1.00); NRBC Per 100 WBC 0 /100 WBCS (0.0-0.0); Neutrophils # (A) 4.31 X 10*3/uL (1.80-7.70); Neutrophils % (A) 73.3 %; Platelet Count 176 X 10*3/uL (140-440); RBC 2.43 X 10*6/uL (4.10-5.20); RDW 16.5 % (11.5-14.5); WBC 5.88 X 10*3/uL (4.50-10.00)
[2022-05-27 09:17] LABS: African American GFR (CKD) 39.6 (60.0-200.0); Anion Gap 9.3 mmol/L (10.00-18.00); BUN/Creat Ratio 30.33 Ratio (12.00-20.00); Blood Urea Nitrogen 45.5 mg/dL (9.0-27.0); Calcium 8.4 mg/dL (8.7-10.3); Carbon Dioxide 36.7 mmol/L (20.0-27.5); Non-African American GFR(CKD) 34.2 (60.0-200.0); Potassium 3.5 mmol/L (3.5-5.5)
[2022-05-27 11:08] LABS: Glucose,Whole Blood 356 mg/dL (70-110)
[2022-05-27] MEDS ORDERED: LEVOFLOXACIN 500MG-D5W PMX 500 MG in DEXTROSE/WATER 1 100ML.BAG IVPB SCH (12:00)
--- NOTE | 2022-05-27 13:44 | P.PN ---
Subjective Progress Note Date: 05/27/22 CHIEF COMPLAINT: GI bleed HISTORY OF PRESENT ILLNESS: Patient lying in bed comfortably. She's had no furt her bleeding. She did have bowel movements. EGD had revealed evidence of mild gastritis. There was no evidence of any GI bleed. Afebrile. Hemoglobin did drop from 8.3 to 7.0. Patient seen by infectious disease regarding UTI Patient seen and examined with Dr. haile PHYSICAL EXAM: VITAL SIGNS: Reviewed. GENERAL: Well-developed in no acute distress. HEENT: No sclera icterus. Extraocular movements grossly intact. Moist buccal mucosa. Head is atraumatic, normocephalic. ABDOMEN: Soft. Nondistended. Nontender. NEUROLOGIC: Alert and oriented. Cranial nerves II through XII grossly intact. ASSESSMENT: 1. Acute GI bleed status post EGD revealing antral gastritis 2. Recent small antral ulcer, diverticulosis and right colon polyp on prior EGD and colonoscopy PLAN: -Patient has had no further evidence of GI bleeding -Continue regular diet -Recommend no oral anticoagulation for this patient. Would not recommend restarting the Eliquis. Physician Sole Painter note has been reviewed by physician. Signing provider agrees with the documented findings, assessment, and plan of care. Objective - Vital Signs Vital signs: Vital Signs Temp 98.3 F 05/27/22 11:10 Pulse 85 05/27/22 11:10 Resp 20 05/27/22 11:10 BP 115/62 05/27/22 11:10 Pulse Ox 100 05/27/22 11:10 FiO2 35 05/27/22 04:16 Intake & Output 05/26/22 05/27/22 05/27/22 18:59 06:59 18:59 Output Total 450 200 450 Balance -450 -200 -450 Weight 158.757 kg Output: Urine 450 200 450 Other: Voiding Method External Catheter External Catheter # Voids 1 - Labs CBC & Chem 7: 05/27/22 05:58 05/27/22 05:58 Labs: Abnormal Lab Results - Last 24 Hours (Table) 05/26/22 05/26/22 05/27/22 Range/Units 17:09 20:28 05:58 RBC 2.43 L (4.10-5.20) X 10*6/uL Hgb 7.0 L (12.0-15.0) g/dL Hct 22.2 L (37.2-46.3) % MCHC 31.5 L (32.0-37.0) g/dL RDW 16.5 H (11.5-14.5) % Lymphocytes # 0.84 L (0.90-5.00) X 10*3/uL Chloride (96-109) mmol/L Carbon Dioxide (20.0-27.5) mmol/L Anion Gap (10.00-18.00) mmol/L BUN (9.0-27.0) mg/dL Est GFR (CKD-EPI)AfAm (60.0-200.0) Est GFR (CKD-EPI)NonAf (60.0-200.0) BUN/Creatinine Ratio (12.00-20.00) Ratio Glucose (70-110) mg/dL POC Glucose (mg/dL) 383 H 378 H (70-110) mg/dL Calcium (8.7-10.3) mg/dL 05/27/22 05/27/22 05/27/22 Range/Units 05:58 07:07 11:07 RBC (4.10-5.20) X 10*6/uL Hgb (12.0-15.0) g/dL Hct (37.2-46.3) % MCHC (32.0-37.0) g/dL RDW (11.5-14.5) % Lymphocytes # (0.90-5.00) X 10*3/uL Chloride 92 L (96-109) mmol/L Carbon Dioxide 36.7 H (20.0-27.5) mmol/L Anion Gap 9.30 L (10.00-18.00) mmol/L BUN 45.5 H (9.0-27.0) mg/dL Est GFR (CKD-EPI)AfAm 39.6 L (60.0-200.0) Est GFR (CKD-EPI)NonAf 34.2 L (60.0-200.0) BUN/Creatinine Ratio 30.33 H (12.00-20.00) Ratio Glucose 240 H (70-110) mg/dL POC Glucose (mg/dL) 273 H 356 H (70-110) mg/dL Calcium 8.4 L (8.7-10.3) mg/dL Microbiology - Last 24 Hours (Table) 10/21/22 20:00 Urine Culture - Final Urine,Voided Klebsiella pneumoniae
--- NOTE | 2022-05-27 13:44 | P.PN ---
Subjective Progress Note Date: 05/27/22 Staff reported bright red blood with bowel movement during the night. Has received 3 units of packed RBCs since admission, last unit transfused on 05/24/2022. Hemoglobin currently 7.7. NPO, scheduled for EGD today. Denies abdominal pain. CT of abdomen and pelvis reporting previous surgery, extensive arteriosclerotic vascular disease, known mesenteric edema, ascites, free air or bowel obstruction, normal appendix, no inguinal hernia ,mild linear infiltrate/atelectasis bilateral bases-further review as per surgery. 05/26/2022 - stable, no further bleeding reported , EGD completed yesterday reported mild gastritis with no evidence of active GI bleed ,hemoglobin stable at 8.3. Surgery recommends anticoagulation continue to be held at this time. BUN 50, creatinine 1.2. Hemoglobin A1c 6.9 on 05/08/2022. Urine culture reporting Klebsiella pneumoniae/ESBL. IV antibiotics adjusted, infectious disease consulted. Denies nausea vomiting or diarrhea. Denies abdominal pain. Denies chest pain, palpitations or shortness of breath. 05/27/2022 hemoglobin 7, denies any further bleeding. Anticoagulation remains on hold. Continues on Merrem for ESBL/Klebsiella pneumonia in a patient with penicillin ALLERGY. Evaluated by infectious disease with recommendations noted and appreciated. BUN 45.5, creatinine 1.5. Consuming 75-100% of diet with no nausea vomiting or diarrhea. Denies chest pain, palpitations or shortness of breath. Maintaining O2 sats in the 90s on 3 L nasal cannula continues to require BiPAP during the night. Patient reports she is in need of a new CPAP machine, requires a sleep study outpatient. Objective - Vital Signs Vital signs: Vital Signs Temp 98.3 F 05/27/22 11:10 Pulse 85 05/27/22 11:10 Resp 20 05/27/22 11:10 BP 115/62 05/27/22 11:10 Pulse Ox 100 05/27/22 11:10 FiO2 35 05/27/22 04:16 Intake & Output 05/26/22 05/27/22 05/27/22 18:59 06:59 18:59 Output Total 450 200 450 Balance -450 -200 -450 Weight 158.757 kg Output: Urine 450 200 450 Other: Voiding Method External Catheter External Catheter # Voids 1 - Exam - Exam General: Morbid obesity, alert and oriented 3, sitting up in chair, NAD Neck: Supple, no JVD Cardiac: [Heart regular in rate and rhythm. No S3. No S4. No clicks, rubs. No murmur.] Lungs: [Clear to auscultation bilaterally.] Abdomen: Soft, nontender, No organomegaly, no guarding. Positive Bowel sounds present. Extremes: [No edema no cyanosis no claudication normal pulses] Skin: [Warm and dry, No rash.] Neurologic: CN II - XII grossly intact. No focal deficits] - Labs CBC & Chem 7: 05/27/22 05:58 05/27/22 05:58 Labs: Abnormal Lab Results - Last 24 Hours (Table) 05/26/22 05/26/22 05/27/22 Range/Units 17:09 20:28 05:58 RBC 2.43 L (4.10-5.20) X 10*6/uL Hgb 7.0 L (12.0-15.0) g/dL Hct 22.2 L (37.2-46.3) % MCHC 31.5 L (32.0-37.0) g/dL RDW 16.5 H (11.5-14.5) % Lymphocytes # 0.84 L (0.90-5.00) X 10*3/uL Chloride (96-109) mmol/L Carbon Dioxide (20.0-27.5) mmol/L Anion Gap (10.00-18.00) mmol/L BUN (9.0-27.0) mg/dL Est GFR (CKD-EPI)AfAm (60.0-200.0) Est GFR (CKD-EPI)NonAf (60.0-200.0) BUN/Creatinine Ratio (12.00-20.00) Ratio Glucose (70-110) mg/dL POC Glucose (mg/dL) 383 H 378 H (70-110) mg/dL Calcium (8.7-10.3) mg/dL 05/27/22 05/27/22 05/27/22 Range/Units 05:58 07:07 11:07 RBC (4.10-5.20) X 10*6/uL Hgb (12.0-15.0) g/dL Hct (37.2-46.3) % MCHC (32.0-37.0) g/dL RDW (11.5-14.5) % Lymphocytes # (0.90-5.00) X 10*3/uL Chloride 92 L (96-109) mmol/L Carbon Dioxide 36.7 H (20.0-27.5) mmol/L Anion Gap 9.30 L (10.00-18.00) mmol/L BUN 45.5 H (9.0-27.0) mg/dL Est GFR (CKD-EPI)AfAm 39.6 L (60.0-200.0) Est GFR (CKD-EPI)NonAf 34.2 L (60.0-200.0) BUN/Creatinine Ratio 30.33 H (12.00-20.00) Ratio Glucose 240 H (70-110) mg/dL POC Glucose (mg/dL) 273 H 356 H (70-110) mg/dL Calcium 8.4 L (8.7-10.3) mg/dL Microbiology - Last 24 Hours (Table) 05/22/22 20:00 Urine Culture - Final Urine,Voided Klebsiella pneumoniae Assessment and Plan Assessment: (1) acute GI bleed in a patient with Acute on chronic anemia, status post transfusion of 3 units packed RBCs. Recent EGD, colonoscopy reporting an nonbleeding antral ulceration, suspected diverticular bleeding previously with anticoagulation resumed post endoscopy procedures as per surgery's recommen dations. Current EGD reporting antral gastritis. Current Visit: Yes Status: Acute Code(s): K92.2 - GASTROINTESTINAL HEMO RRHAGE, UNSPECIFIED SNOMED Code(s): 57187090 Current Visit: No Status: Acute Code(s): D64.9 - ANEMIA, UNSPECIFIED SNOMED Code(s): 794276628 (2) Atrial fibrillation, chronic Current Visit: No Status: Acute Code(s): I48.91 - UNSPECIFIED ATRIAL FIBRILLATION SNOMED Code(s): 30799607 (3) CKD (chronic kidney disease) Current Visit: Yes Status: Acute Code(s): N18.9 - CHRONIC KIDNEY DISEASE, UNSPECIFIED SNOMED Code(s): 666894232 (4) CAD, mild aortic stenosis, severe tricuspid regurgitation (5) diabetes mellitus, A1c 6.9 (6)Acute on chronic diastolic (congestive) heart failure Current Visit: No Status: Acute Code(s): I50.33 - ACUTE ON CHRONIC DIASTOLIC (CONGESTIVE) HEART FAILURE SNOMED Code(s): 009830728 (7 obstructive sleep apnea, hypercapnic respiratory failure, requiring BiPAP) (8) acute UTI with ESBL, Klebsiella pneumoniae Plan: Continue on current medication regime, monitoring and symptomatic treatment. Anticoagulation has been discontinued, discussed outpatient close monitoring of CBC with potential resuming once hemoglobin maintained around 10. Risks discussed the remaining off anticoagulation but at this time patient is not a candidate for anticoagulation-as per surgery .Close monitoring of hemoglobin. Patient will complete her Merrem therapy tomorrow as per ID .Discharge planning in progress for ECF tomorrow. The impression and plan of care has been dictated as directed. : I performed a history and examination of this patient, discussed the same with the dictator. I agree with the dictator's note ,documented as a scribe. Any additional findings or plans will be noted.
[2022-05-27 17:05] LABS: Glucose,Whole Blood 427 mg/dL (70-110)
[2022-05-27 19:26] VITALS: RESP 16
[2022-05-27 20:25] LABS: Glucose,Whole Blood 393 mg/dL (70-110)
[2022-05-27] MEDS ORDERED: INSULIN DETEMIR (LEVEMIR) 100 UNIT/ML SYR SQ SCH (21:00)
[2022-05-27] MEDS: ATORVASTATIN 40 MG TAB PO SCH (21:08)
[2022-05-27] MEDS: MIRTAZAPINE 15 MG TAB PO SCH (21:55)
[2022-05-28] MEDS: MEROPENEM 500 MG in SODIUM CHLORIDE 0.9% 100 ML IVPB SCH ×2 (05:42→12:44)
[2022-05-28] MEDS: LEVOTHYROXINE 50 MCG TAB PO SCH (05:43)
[2022-05-28] MEDS ORDERED: INSULIN DETEMIR (LEVEMIR) 100 UNIT/ML SYR SQ SCH (07:00)
[2022-05-28 07:06] LABS: Glucose,Whole Blood 264 mg/dL (70-110)
[2022-05-28] MEDS: INSULIN ASPART (NovoLOG) 100 UNIT/ML VIAL SQ SCH ×2 (08:16→13:23)
[2022-05-28 08:49] LABS: African American GFR (CKD) 49.4 (60.0-200.0); BUN/Creat Ratio 36.32 Ratio (12.00-20.00); Blood Urea Nitrogen 45.4 mg/dL (9.0-27.0); Calcium 8.8 mg/dL (8.7-10.3); Carbon Dioxide 39.1 mmol/L (20.0-27.5); Non-African American GFR(CKD) 42.6 (60.0-200.0); Potassium 4.1 mmol/L (3.5-5.5)
[2022-05-28] MEDS: PANTOPRAZOLE 40 MG TABLET PO SCH (09:09)
[2022-05-28] MEDS: DOCUSATE 100 MG CAP PO SCH (09:10)
[2022-05-28] MEDS: FUROSEMIDE 40 MG TAB PO SCH ×2 (09:11→16:34)
[2022-05-28] MEDS: GABAPENTIN 300 MG CAP PO SCH (09:12)
[2022-05-28] MEDS: ISOSORBIDE MONONITRATE ER 30 MG TAB.ER.24H PO SCH (09:12)
[2022-05-28] MEDS: METOPROLOL TARTRATE 50 MG TAB PO SCH ×2 (09:13→13:23)
[2022-05-28] MEDS: OXYBUTYNIN CHLORIDE 5 MG TAB PO SCH (09:14)
--- NOTE | 2022-05-28 10:20 | P.PN ---
Subjective Progress Note Date: 05/28/22 CHIEF COMPLAINT: GI bleed HISTORY OF PRESENT ILLNESS: Patient lying in bed comfortably. She's had no furt her bleeding. She did have bowel movements. EGD had revealed evidence of mild gastritis. There was no evidence of any GI bleed. Afebrile. hgb 7 yesterday. Repeat CBC pending. Patient seen by infectious disease regarding UTI. Patient anticipating discharge today. Patient seen and examined with Dr. haile PHYSICAL EXAM: VITAL SIGNS: Reviewed. GENERAL: Well-developed in no acute distress. HEENT: No sclera icterus. Extraocular movements grossly intact. Moist buccal mucosa. Head is atraumatic, normocephalic. ABDOMEN: Soft. Nondistended. Nontender. NEUROLOGIC: Alert and oriented. Cranial nerves II through XII grossly intact. ASSESSMENT: 1. Acute GI bleed status post EGD revealing antral gastritis 2. Recent small antral ulcer, diverticulosis and right colon polyp on prior EGD and colonoscopy PLAN: -Patient has had no further evidence of GI bleeding -Continue regular diet -Recommend no oral anticoagulation -Follow up on today's CBC Physician Special Projects Coordinator note has been reviewed by physician. Signing provider agrees with the documented findings, assessment, and plan of care. Objective - Vital Signs Vital signs: Vital Signs Temp 98.9 F 05/28/22 09:00 Pulse 88 05/28/22 09:00 Resp 16 05/28/22 09:00 BP 120/61 05/28/22 09:00 Pulse Ox 100 05/28/22 09:00 FiO2 35 05/28/22 07:48 Intake & Output 05/27/22 05/28/22 05/28/22 18:59 06:59 18:59 Intake Total 100 Output Total 850 650 Balance -850 -550 Intake: Intake, IV Titration 100 Amount Meropenem 500 mg In 100 Sodium Chloride 0.9% 100 ml @ 33.333 mls/hr IVPB Q8H [facility] Rx#:[id number] Output: Urine 850 650 Other: Voiding Method External Catheter - Labs CBC & Chem 7: 05/27/22 05:58 05/28/22 06:02 Labs: Abnormal Lab Results - Last 24 Hours (Table) 05/27/22 05/27/22 05/27/22 Range/Units 11:07 17:04 20:22 Chloride (96-109) mmol/L Carbon Dioxide (20.0-27.5) mmol/L Anion Gap (10.00-18.00) mmol/L BUN (9.0-27.0) mg/dL Est GFR (CKD-EPI)AfAm (60.0-200.0) Est GFR (CKD-EPI)NonAf (60.0-200.0) BUN/Creatinine Ratio (12.00-20.00) Ratio Glucose (70-110) mg/dL POC Glucose (mg/dL) 356 H 427 H 393 H (70-110) mg/dL 05/28/22 05/28/22 Range/Units 06:02 07:04 Chloride 94 L (96-109) mmol/L Carbon Dioxide 39.1 H (20.0-27.5) mmol/L Anion Gap 7.00 L (10.00-18.00) mmol/L BUN 45.4 H (9.0-27.0) mg/dL Est GFR (CKD-EPI)AfAm 49.4 L (60.0-200.0) Est GFR (CKD-EPI)NonAf 42.6 L (60.0-200.0) BUN/Creatinine Ratio 36.32 H (12.00-20.00) Ratio Glucose 226 H (70-110) mg/dL POC Glucose (mg/dL) 264 H (70-110) mg/dL Microbiology - Last 24 Hours (Table) 05/22/22 20:00 Urine Culture - Final Urine,Voided Klebsiella pneumoniae
[2022-05-28 10:54] LABS: Anisocytosis Slight; HGB 7.6 gm/dL (11.4-16.0); Hypochromasia Marked; MCH 28.7 pg (25.0-35.0); MCHC 30.5 g/dL (31.0-37.0); MCV 93.9 fL (80.0-100.0); Mean Platelet Volume 9.9; Platelet Count 169 k/uL (150-450); RBC 2.66 m/uL (3.80-5.40); RDW 16.3 % (11.5-15.5); WBC 6.8 k/uL (3.8-10.6)
[2022-05-28 11:15] LABS: Glucose,Whole Blood 305 mg/dL (70-110)
--- NOTE | 2022-05-28 11:18 | P.DS ---
Providers Date of admission: 05/22/22 06:38 Expected date of discharge: 05/28/22 Attending physician: Marcelino Cruz Consults: 05/22/22 06:18 Consult Physician Routine Consulting Provider: Pablito Jay Consult Reason/Comments: gi bleed. Recent EGD and Colonoscopy Do you want consulting provider notified?: Yes 05/26/22 12:13 Consult Physician Routine Consulting Provider: Ramiro Ellington Consult Reason/Comments: KLEB/ESBL,PCN allergy Do you want consulting provider notified?: Yes Primary care physician: Maik Jama [facility] Course: Final Diagnoses: (1) acute GI bleed in a patient with Acute on chronic anemia, status post transfusion of 3 units packed RBCs. Recent EGD, colonoscopy reporting an nonbleeding antral ulceration, suspected diverticular bleeding previously with anticoagulation resumed post endoscopy procedures as per surgery's recommendations. Current EGD reporting antral gastritis. Current Visit: Yes Status: Acute Code(s): K92.2 - GASTROINTESTINAL HEMORRHAGE, UNSPECIFIED SNOMED Code(s): 32900975 Current Visit: No Status: Acute Code(s): D64.9 - ANEMIA, UNSPECIFIED SNOMED Code(s): 954946266 (2) Atrial fibrillation, chronic Current Visit: No Status: Acute Code(s): I48.91 - UNSPECIFIED ATRIAL FIBRILLATION SNOMED Code(s): 56313913 (3) CKD (chronic kidney disease) Current Visit: Yes Status: Acute Code(s): N18.9 - CHRONIC KIDNEY DISEASE, UNSPECIFIED SNOMED Code(s): 933176929 (4) CAD, mild aortic stenosis, severe tricuspid regurgitation (5) diabetes mellitus, A1c 6.9 (6)Acute on chronic diastolic (congestive) heart failure Current Visit: No Status: Acute Code(s): I50.33 - ACUTE ON CHRONIC DIASTOLIC (CONGESTIVE) HEART FAILURE SNOMED Code(s): 878601996 (7 obstructive sleep apnea, hypercapnic respiratory failure, requiring BiPAP) (8) acute UTI with ESBL, Klebsiella pneumoniae Hospital course:Staff reported bright red blood with bowel movement during the night. Has received 3 units of packed RBCs since admission, last unit transfused on 05/24/2022. Hemoglobin currently 7.7. NPO, scheduled for EGD today. Denies abdominal pain. CT of abdomen and pelvis reporting previous surgery, extensive arteriosclerotic vascular disease, known mesenteric edema, ascites, free air or bowel obstruction, normal appendix, no inguinal hernia ,mild linear infiltrate/atelectasis bilateral bases-further review as per surgery. 05/26/2022 - stable, no further bleeding reported , EGD completed yesterday reported mild gastritis with no evidence of active GI bleed ,hemoglobin stable at 8.3. Surgery recommends anticoagulation continue to be held at this time. BUN 50, creatinine 1.2. Hemoglobin A1c 6.9 on 05/08/2022. Urine culture reporting Klebsiella pneumoniae/ESBL. IV antibiotics adjusted, infectious disease consulted. Denies nausea vomiting or diarrhea. Denies abdominal pain. Denies chest pain, palpitations or shortness of breath. 05/27/2022 hemoglobin 7, denies any further bleeding. Anticoagulation remains on hold. Continues on Merrem for ESBL/Klebsiella pneumonia in a patient with penicillin ALLERGY. Evaluated by infectious disease with recommendations noted and appreciated. BUN 45.5, creatinine 1.5. Consuming 75-100% of diet with no nausea vomiting or diarrhea. Denies chest pain, palpitations or shortness of breath. Maintaining O2 sats in the 90s on 3 L nasal cannula continues to require BiPAP during the night. Patient reports she is in need of a new CPAP ma junie, requires a sleep study outpatient. Anticoagulation has been discontinued, discussed outpatient close monitoring of CBC with potential resuming once hemoglobin maintained around 10. Risks dis cussed regarding remaining off anticoagulation but at this time patient is not a candidate for anticoagulation-as per surgery .Close monitoring of hemoglobin. Patient will complete her Merrem therapy today as per ID . Patient will be discharged today in a stable condition with guarded prognosis to [facility] subacute rehab pending final DC recommendations and clearance as per surgery and infectious disease. The impression and plan of care has been dictated as directed. : I performed a history and examination of this patient, discussed the same with the dictator. I agree with the dictator's note ,documented as a scribe. Any additional findings or plans will be noted. Patient Condition at Discharge: Stable Plan - Discharge Summary Discharge Rx Participant: No New Discharge Prescriptions: New Insulin Detemir (Levemir) [Levemir] 55 unit SQ DAILY@0700 each Insulin Detemir (Levemir) [Levemir] 15 unit SQ HS each INSULIN ASPART (NovoLOG) [NovoLOG (formulary)] 5 unit SQ AC-TID@07,12,17 each Continue Atorvastatin [Lipitor] 40 mg PO HS Isosorbide Mononitrate [Isosorbide Mononitrate ER] 30 mg PO DAILY Oxybutynin Chloride 5 mg PO BID Mirtazapine [Remeron] 15 mg PO HS Metoprolol Tartrate [Lopressor] 50 mg PO TID@0900,1300,2100 Insulin Lispro [humaLOG Kwikpen] See Protocol SQ ACHS Potassium Chloride ER [K-Dur 20] 20 meq PO DAILY Docusate [Colace] 100 mg PO DAILY Heparin Sodium,Porcine [Heparin Sodium] 5,000 unit SQ Q12H Acetaminophen Tab [Tylenol] 650 mg PO Q6H PRN PRN Reason: Pain Levothyroxine Sodium [Synthroid] 50 mcg PO DAILY@0600 Omeprazole [PriLOSEC] 20 mg PO DAILY@0600 Changed Furosemide [Lasix] 40 mg PO BID@0600,1400 #0 Gabapentin [Neurontin] 300 mg PO BID #6 cap Discontinued Insulin Lispro [humaLOG Kwikpen] 5 unit SQ TID@0800,1200,1700 Insulin Glargine-Yfgn [Semglee (Yfgn) Pen] 50 units SQ DAILY Discharge Medication List Atorvastatin [Lipitor] 40 mg PO HS 08/10/16 [History] Isosorbide Mononitrate [Isosorbide Mononitrate ER] 30 mg PO DAILY 08/10/16 [History] Oxybutynin Chloride 5 mg PO BID 08/10/16 [History] Metoprolol Tartrate [Lopressor] 50 mg PO TID@0900,1300,2100 04/12/22 [History] Mirtazapine [Remeron] 15 mg PO HS 04/12/22 [History] Acetaminophen Tab [Tylenol] 650 mg PO Q6H PRN 05/08/22 [History] Docusate [Colace] 100 mg PO DAILY 05/08/22 [History] Insulin Lispro [humaLOG Kwikpen] See Protocol SQ ACHS 05/08/22 [History] Potassium Chloride ER [K-Dur 20] 20 meq PO DAILY 05/08/22 [History] Heparin Sodium,Porcine [Heparin Sodium] 5,000 unit SQ Q12H 05/22/22 [History] Levothyroxine Sodium [Synthroid] 50 mcg PO DAILY@0600 05/22/22 [History] Omeprazole [PriLOSEC] 20 mg PO DAILY@0600 05/22/22 [History] Furosemide [Lasix] 40 mg PO BID@0600,1400 #0 05/27/22 [Rx] Gabapentin [Neurontin] 300 mg PO BID #6 cap 05/27/22 [Rx] INSULIN ASPART (NovoLOG) [NovoLOG (formulary)] 5 unit SQ AC-TID@07,12,17 each 05/28/22 [Rx] Insulin Detemir (Levemir) [Levemir] 15 unit SQ HS each 05/28/22 [Rx] Insulin Detemir (Levemir) [Levemir] 55 unit SQ DAILY@0700 each 05/28/22 [Rx] Follow up Appointment(s)/Referral(s): Maik Jama MD [Primary Care Provider] - 3 Days Activity/Diet/Wound Care/Special Instructions: [facility] subacute rehab CBC, BMP in 3 days Discharge/Stand Alone Forms: Who Do I Call?, Community Resources, Outpatient Counseling Discharge Disposition: TRANSFER TO SNF/ECF
[2022-05-28 12:19] VITALS: BP 128/69; PULSE 84; TEMP 98.6
== END 2022-05-28 17:20 | DRG 377 ==
LOC: EC 04:43 → 5NMEDONC 06:38
PROVIDERS: ADMIT Family Medicine; ATTEND Family Medicine
PROC: 30233N1 Transfusion of Nonautologous Red Blood Cells into Peripheral Vein, Percutaneous Approach (ICD-10-PCS; 2022-05-22)
PROC: 5A09357 Assistance with Respiratory Ventilation, Less than 24 Consecutive Hours, Continuous Positive Airway Pressure (ICD-10-PCS; 2022-05-25)
PROC: 0DB78ZX Excision of Stomach, Pylorus, Via Natural or Artificial Opening Endoscopic, Diagnostic (ICD-10-PCS; principal; 2022-05-25 13:45)
DX: K29.51 Unspecified chronic gastritis with bleeding (principal); I50.33 Acute on chronic diastolic (congestive) heart failure; J96.92 Respiratory failure, unspecified with hypercapnia; N17.9 Acute kidney failure, unspecified; D68.32 Hemorrhagic disorder due to extrinsic circulating anticoagulants; I13.0 Hypertensive heart and chronic kidney disease with heart failure and stage 1 through stage 4 chronic kidney disease, or unspecified chronic kidney disease; D62 Acute posthemorrhagic anemia; Z68.44 Body mass index [BMI] 60.0-69.9, adult; I48.20 Chronic atrial fibrillation, unspecified; N39.0 Urinary tract infection, site not specified; Z16.12 Extended spectrum beta lactamase (ESBL) resistance; I08.2 Rheumatic disorders of both aortic and tricuspid valves; E11.22 Type 2 diabetes mellitus with diabetic chronic kidney disease; E11.40 Type 2 diabetes mellitus with diabetic neuropathy, unspecified; E66.01 Morbid (severe) obesity due to excess calories; N18.30 Chronic kidney disease, stage 3 unspecified; K25.4 Chronic or unspecified gastric ulcer with hemorrhage; K57.91 Diverticulosis of intestine, part unspecified, without perforation or abscess with bleeding; Z99.81 Dependence on supplemental oxygen; K31.A0 Gastric intestinal metaplasia, unspecified; I25.10 Atherosclerotic heart disease of native coronary artery without angina pectoris; G47.33 Obstructive sleep apnea (adult) (pediatric); B96.1 Klebsiella pneumoniae [K. pneumoniae] as the cause of diseases classified elsewhere; U09.9 Post COVID-19 condition, unspecified; T45.515A Adverse effect of anticoagulants, initial encounter; E78.5 Hyperlipidemia, unspecified; Z28.310 Unvaccinated for COVID-19; Z79.01 Long term (current) use of anticoagulants; Z79.899 Other long term (current) drug therapy; Z79.890 Hormone replacement therapy; Z79.4 Long term (current) use of insulin; Z88.0 Allergy status to penicillin; Z88.6 Allergy status to analgesic agent; Z87.19 Personal history of other diseases of the digestive system; Z95.1 Presence of aortocoronary bypass graft; Z98.84 Bariatric surgery status; Z87.01 Personal history of pneumonia (recurrent)
CPT/HCPCS: 36415; 43239; 74176; 80048; 80053; 81001; 82272; 83605; 85025; 85027; 85610; 85730; 86850; 86900; 86901; 86920; 87077; 87086; 87186; 88305; 93005; 94660; 96361; 96374; 99285

== ENCOUNTER 2022-07-09 06:00 | Inpatient (IN) | payer MEDICARE, OTHER ==
--- NOTE | 2022-07-09 07:49 | ED ---
General Adult HPI - General Chief complaint: Shortness of Breath Stated complaint: Difficulty Breathing Time Seen by Provider: 07/09/22 07:17 Source: patient, EMS, RN notes reviewed, old records reviewed Mode of arrival: EMS Limitations: no limitations - History of Present Illness Initial comments: Patient is a 72-year-old female with past medical history remarkable for atrial fibrillation on eliquis, CAD, diabetes, hypertension, hyperlipidemia, CHF on baseline 3 L nasal cannula at home as well as requiring 3 L nasal cannula oxygen at home presents emergency Department complaining of worsening shortness of breath, particularly worse over the last few days. Patient was discharged from the hospital on 1026, following an admission for GI bleed where source was not found, as well as a pneumonia who completed a course of antibiotics. Patient initially was discharged to [facility] rehab, and was discharged home. She states she has been at home for multiple weeks and over the last 3 days she has not is getting or short of breath. It is worse yesterday. States she previously noted it when she was moving to use the restroom and back. Patient does have home nursing to help out at home. States she became concerned and presents emergency department for further evaluation. States she has mild weakness of the lower extremities which is somewhat chronic. Has not noticed any more bleeding from the rectum or in the vomit. Endorses some lower extremity edema. Endorses nonproductive cough. Denies chest pain. Denies abdominal pain, nausea, vomiting. Denies fevers, chills. Has no other acute complaints at this time. Presents primarily for the worsening shortness of breath. EGD on last visit showed antral gastritis. - Related Data Home Medications Medication Instructions Recorded Confirmed Atorvastatin [Lipitor] 40 mg PO HS 08/10/16 07/09/22 Isosorbide Mononitrate [Isosorbide 30 mg PO DAILY 08/10/16 07/09/22 Mononitrate ER] Oxybutynin Chloride 5 mg PO BID 08/10/16 07/09/22 Metoprolol Tartrate [Lopressor] 50 mg PO DAILY 04/12/22 07/09/22 Mirtazapine [Remeron] 15 mg PO HS 04/12/22 07/09/22 Acetaminophen Tab [Tylenol] 650 mg PO Q6H PRN 05/08/22 07/09/22 Docusate [Colace] 100 mg PO DAILY PRN 05/08/22 07/09/22 Levothyroxine Sodium [Synthroid] 50 mcg PO DAILY 05/22/22 07/09/22 Omeprazole [PriLOSEC] 20 mg PO DAILY 05/22/22 07/09/22 Apixaban [Eliquis] 5 mg PO BID 07/09/22 07/09/22 Furosemide [Lasix] 20 mg PO DAILY 07/09/22 07/09/22 INSULIN ASPART (NovoLOG) [NovoLOG 35 - 40 unit SQ AC-TID 07/09/22 07/09/22 (formulary)] Insulin Detemir (Levemir) [Levemir] 55 - 60 unit SQ BID 07/09/22 07/09/22 Potassium Chloride ER [K-Dur 10] 20 meq PO DAILY 07/09/22 07/09/22 polyethylene glycoL 3350 [Miralax] 17 gm PO DAILY PRN 07/09/22 07/09/22 Previous Rx's Medication Instructions Recorded Gabapentin [Neurontin] 300 mg PO BID #6 cap 05/27/22 Allergies Allergy/AdvReac Type Severity Reaction Status Date / Time ibuprofen [From Motrin] Allergy Rash/Hives Verified 07/09/22 11:13 Penicillins Allergy Anaphylaxis Verified 07/09/22 11:13 Review of Systems ROS Statement: Those systems with pertinent positive or pertinent negative responses have been documented in the HPI. Review of Systems: CONST: Denies fever EYES: Denies blurry vision ENT: Denies nasal congestion C/V: Denies Chest pain RESP: Endorses shortness of breath GI: Denies abdominal pain : Denies dysuria SKIN: Denies rash. MSK: Denies joint pain. NEURO: Denies headache ROS Other: All systems not noted in ROS Statement are negative. Past Medical History Past Medical History: Atrial Fibrillation, Coronary Artery Disease (CAD), Diabetes Mellitus, Eye Disorder, Hyperlipidemia, Hypertension, Osteoarthritis (OA), Pneumonia, Renal Disease, Sleep Apnea/CPAP/BIPAP, Thyroid Disorder Additional Past Medical History / Comment(s): Pt recently admitted to [facility] on 05/08/22 with anemia/had EGD and colonoscopy which showed nonbleeding stomach ulcer/diverticular disease and colon polyp, pt received blood transfusions. Other hx: 02/12/22 covid/pneumonia/sepsis, other past pneumonias, acute hypoxic respiratory failure/now on home oxygen ATC, new A fib with RVR, IDDM type II, n europathy bilateral feet, L eye retinal bleed/lasik eye surgery, R eye cataract, bilateral eye macular degeneration/gets injections/poor vision, CKD stage III, anemia, UTI/sepsis, bilateral leg lymphedema, FLORES/does not have cpap machine at this time, diverticulitis, gout, chronic back pain, rheumatic fever, hypothyroid. History of Any Multi-Drug Resistant Organisms: ESBL Date of last positivie culture/infection: 05/22/22 ESBL Klebsiella MDRO Source:: Urine Past Surgical History: Bariatric Surgery, Section, Cholecystectomy, Coronary Bypass/CABG, Heart Catheterization, Hysterectomy, Orthopedic Surgery, Tonsillectomy Additional Past Surgical History / Comment(s): EGD, colonoscopy, 2 vessel CABG in 1996, bilateral carpal tunnel release, lap band, L eye laser surgery, Past Anesthesia/Blood Transfusion Reactions: No Reported Reaction Past Psychological History: Depression Smoking Status: Never smoker - Past Family History Father Family Medical History: Cancer, Coronary Artery Disease (CAD), Diabetes Mellitus Additional Family Medical History / Comment(s): Prostate cancer Mother Family Medical History: Cancer Additional Family Medical History / Comment(s): Bone cancer. General Exam - General Exam Comments Initial Comments: General: Appears in no acute distress. HEAD: Normal with no signs of head trauma. EYES: PERRLA, EOMI, conjunctiva normal, no discharge. ENT: Hearing grossly intact, normal oropharynx. RESPIRATORY: Relatively clear breath sounds bilaterally. Saturating well on her normal 3 L nasal cannula. Very mild increase in work of breathing. C/V: Regular rate and rhythm. S1 and S2 auscultated. Symmetrical lower extremity pitting edema. Peripheral pulses 2+ and intact throughout. ABD: Abd is soft, nontender, nondistended EXT: Normal range of motion, no obvious deformity SKIN: No rashes or lesions observed on exposed skin. NEURO: Alert and oriented 4. Somewhat chronic lower extremity weakness bilaterally per palpation. Limitations: no limitations Course Vital Signs 07/09/22 07/09/22 07/09/22 06:02 06:07 07:00 Temperature 98.7 F Pulse Rate 98 100 74 Respiratory 22 16 18 Rate Blood Pressure 117/80 148/73 139/74 O2 Sat by Pulse 98 100 100 Oximetry Fraction of Inspired Oxygen (FIO2) 12/08/22 12/08/22 12/08/22 09:11 11:31 12:02 Temperature Pulse Rate 88 100 Respiratory 18 18 Rate Blood Pressure 133/68 139/74 O2 Sat by Pulse 98 95 Oximetry Fraction of 35 Inspired Oxygen (FIO2) 07/09/22 14:25 Temperature Pulse Rate 98 Respiratory 18 Rate Blood Pressure 138/58 O2 Sat by Pulse 99 Oximetry Fraction of Inspired Oxygen (FIO2) Medical Decision Making - Medical Decision Making Based on the patient's presentation and physical exam, I'm concerned for acute on chronic shortness of breath for the patient. Differential does include ACS, CHF exacerbation, infection. Does have a history of anemia as well. No obvious signs of GI bleed like last time. We will obtain cardiac laboratory studies, chest x-ray, EKG. Patient was in agreement with this plan. Vital signs within acceptable limits and she is resting comfortably on her normal 3 L nasal cannula at this time. We will continue to monitor with continuous cardiac monitoring and pulse oximetry. EKG showed no signs of acute ischemia.Chest x-ray as interpreted by myself reveals bilateral pulmonary vascular congestion concerning for CHF, as well as what appears to be small bilateral pleural effusions. Radiology does concur with this evaluation. Laboratory studies are remarkable for a chronic normocytic anemia with hemoglobin 7.5, which is stable for the patient. She is mildly hyperkalemic with no EKG changes. Patient has CK D with baseline elevated creatinine and BUN. Troponin is undetectable. BNP is elevated to 3900 . Covid influenza negative. I discussed with the patient the results of her workup. Appear she is having a CHF exacerbation. We'll start the patient on IV Lasix. Echo was ordered. Cardiology is consulted. She was in agreement this plan. The patient's Lasix should help with the patient's hyperkalemia at this time. We will fluid restrict the patient due to her CHF exacerbation. She will be admitted to a telemetry bed. I spoke with the admitting physician, Dr. Jama who accepted the patient. Patient was admitted in stable condition. - Lab Data Result diagrams: 07/09/22 07:43 07/09/22 07:43 Lab Results 07/09/22 07/09/22 07/09/22 Range/Units 07:43 07:43 07:43 WBC 6.4 (3.8-10.6) k/uL RBC 2.56 L (3.80-5.40) m/uL Hgb 7.5 L (11.4-16.0) gm/dL Hct 23.9 L (34.0-46.0) % MCV 93.2 (80.0-100.0) fL MCH 29.4 (25.0-35.0) pg MCHC 31.5 (31.0-37.0) g/dL RDW 16.3 H (11.5-15.5) % Plt Count 184 (150-450) k/uL MPV 8.6 Neutrophils % 78 % Lymphocytes % 12 % Monocytes % 5 % Eosinophils % 2 % Basophils % 0 % Neutrophils # 5.0 (1.3-7.7) k/uL Lymphocytes # 0.8 L (1.0-4.8) k/uL Monocytes # 0.3 (0-1.0) k/uL Eosinophils # 0.2 (0-0.7) k/uL Basophils # 0.0 (0-0.2) k/uL Hypochromasia Marked Anisocytosis Slight PT 11.7 (9.0-12.0) sec INR 1.1 (<1.2) APTT 23.5 (22.0-30.0) sec Sodium 143 (137-145) mmol/L Potassium 5.4 H (3.5-5.1) mmol/L Chloride 109 H (98-107) mmol/L Carbon Dioxide 31 H (22-30) mmol/L Anion Gap 3 mmol/L BUN 35 H (7-17) mg/dL Creatinine 1.33 H (0.52-1.04) mg/dL Est GFR (CKD-EPI)AfAm 46 (>60 ml/min/1.73 sqM) Est GFR (CKD-EPI)NonAf 40 (>60 ml/min/1.73 sqM) Glucose 82 (74-99) mg/dL Plasma Lactic Acid Garcia (0.7-2.0) mmol/L Calcium 8.8 (8.4-10.2) mg/dL Magnesium 2.4 H (1.6-2.3) mg/dL Total Bilirubin 1.0 (0.2-1.3) mg/dL AST 18 (14-36) U/L ALT 11 (4-34) U/L Alkaline Phosphatase 79 (38-126) U/L Troponin I (0.000-0.034) ng/mL NT-Pro-B Natriuret Pep pg/mL Total Protein 6.5 (6.3-8.2) g/dL Albumin 3.4 L (3.5-5.0) g/dL Coronavirus (PCR) (Not Detectd) Influenza Type A RNA (Not Detectd) Influenza Type B (PCR) (Not Detectd) 07/09/22 07/09/22 07/09/22 Range/Units 07:43 07:43 07:43 WBC (3.8-10.6) k/uL RBC (3.80-5.40) m/uL Hgb (11.4-16.0) gm/dL Hct (34.0-46.0) % MCV (80.0-100.0) fL MCH (25.0-35.0) pg MCHC (31.0-37.0) g/dL RDW (11.5-15.5) % Plt Count (150-450) k/uL MPV Neutrophils % % Lymphocytes % % Monocytes % % Eosinophils % % Basophils % % Neutrophils # (1.3-7.7) k/uL Lymphocytes # (1.0-4.8) k/uL Monocytes # (0-1.0) k/uL Eosinophils # (0-0.7) k/uL Basophils # (0-0.2) k/uL Hypochromasia Anisocytosis PT (9.0-12.0) sec INR (<1.2) APTT (22.0-30.0) sec Sodium (137-145) mmol/L Potassium (3.5-5.1) mmol/L Chloride (98-107) mmol/L Carbon Dioxide (22-30) mmol/L Anion Gap mmol/L BUN (7-17) mg/dL Creatinine (0.52-1.04) mg/dL Est GFR (CKD-EPI)AfAm (>60 ml/min/1.73 sqM) Est GFR (CKD-EPI)NonAf (>60 ml/min/1.73 sqM) Glucose (74-99) mg/dL Plasma Lactic Acid Garcia 0.9 (0.7-2.0) mmol/L Calcium (8.4-10.2) mg/dL Magnesium (1.6-2.3) mg/dL Total Bilirubin (0.2-1.3) mg/dL AST (14-36) U/L ALT (4-34) U/L Alkaline Phosphatase (38-126) U/L Troponin I <0.012 (0.000-0.034) ng/mL NT-Pro-B Natriuret Pep 3960 pg/mL Total Protein (6.3-8.2) g/dL Albumin (3.5-5.0) g/dL Coronavirus (PCR) (Not Detectd) Influenza Type A RNA (Not Detectd) Influenza Type B (PCR) (Not Detectd) 07/09/22 07/09/22 Range/Units 07:43 07:43 WBC (3.8-10.6) k/uL RBC (3.80-5.40) m/uL Hgb (11.4-16.0) gm/dL Hct (34.0-46.0) % MCV (80.0-100.0) fL MCH (25.0-35.0) pg MCHC (31.0-37.0) g/dL RDW (11.5-15.5) % Plt Count (150-450) k/uL MPV Neutrophils % % Lymphocytes % % Monocytes % % Eosinophils % % Basophils % % Neutrophils # (1.3-7.7) k/uL Lymphocytes # (1.0-4.8) k/uL Monocytes # (0-1.0) k/uL Eosinophils # (0-0.7) k/uL Basophils # (0-0.2) k/uL Hypochromasia Anisocytosis PT (9.0-12.0) sec INR (<1.2) APTT (22.0-30.0) sec Sodium (137-145) mmol/L Potassium (3.5-5.1) mmol/L Chloride (98-107) mmol/L Carbon Dioxide (22-30) mmol/L Anion Gap mmol/L BUN (7-17) mg/dL Creatinine (0.52-1.04) mg/dL Est GFR (CKD-EPI)AfAm (>60 ml/min/1.73 sqM) Est GFR (CKD-EPI)NonAf (>60 ml/min/1.73 sqM) Glucose (74-99) mg/dL Plasma Lactic Acid Garcia (0.7-2.0) mmol/L Calcium (8.4-10.2) mg/dL Magnesium (1.6-2.3) mg/dL Total Bilirubin (0.2-1.3) mg/dL AST (14-36) U/L ALT (4-34) U/L Alkaline Phosphatase (38-126) U/L Troponin I (0.000-0.034) ng/mL NT-Pro-B Natriuret Pep pg/mL Total Protein (6.3-8.2) g/dL Albumin (3.5-5.0) g/dL Coronavirus (PCR) Not Detected (Not Detectd) Influenza Type A RNA Not Detected (Not Detectd) Influenza Type B (PCR) Not Detected (Not Detectd) - EKG Data -: EKG Interpreted by Me EKG Comments: 12-lead Electrocardiogram Interpretation Note EKG was reviewed and interpreted by myself. 12-lead ECG performed at 0730 is interpreted by me as revealing atrial fibrillation at a rate of 82 beats per minute. Indeterminate axis. QRS duration 176 ms, QTc 455 ms.. There were no acute ST or T wave abnormalities to suggest myocardial ischemia or injury. R wave progression across the precordium was satisfactory. By my interpretation this EKG is non-diagnostic for acute ischemia. Chronic changes are seen when compared with prior EKG from May 2022. Disposition Clinical Impression: CHF exacerbation Disposition: ADMITTED IP TO THIS HOSP Condition: Stable Time of Disposition: 09:00
[2022-07-09 08:11] LABS: Anisocytosis Slight; Basophils % (A) 0 %; Eosinophils # (A) 0.2 k/uL (0-0.7); Eosinophils % (A) 2 %; HCT 23.9 % (34.0-46.0); HGB 7.5 gm/dL (11.4-16.0); Hypochromasia Marked; Lymphocytes # (A) 0.8 k/uL (1.0-4.8); Lymphocytes % (A) 12 %; MCH 29.4 pg (25.0-35.0); MCHC 31.5 g/dL (31.0-37.0); MCV 93.2 fL (80.0-100.0); Mean Platelet Volume 8.6; Monocytes # (A) 0.3 k/uL (0-1.0); Monocytes % (A) 5 %; Neutrophils % (A) 78 %; Platelet Count 184 k/uL (150-450); RBC 2.56 m/uL (3.80-5.40); RDW 16.3 % (11.5-15.5); WBC 6.4 k/uL (3.8-10.6)
[2022-07-09 08:21] LABS: INR 1.1 (<1.2); Partial Thromboplastin Time 23.5 sec (22.0-30.0); Prothrombin Time 11.7 sec (9.0-12.0)
--- NOTE | 2022-07-09 08:32 | XR ---
EXAMINATION TYPE: XR chest 2V DATE OF EXAM: 07/09/2022 COMPARISON: 05/08/2022 HISTORY: 72 year-old female shortness of breath, difficulty breathing TECHNIQUE: AP and lateral views FINDINGS: Median sternotomy wires are present. Heart moderately enlarged. Diffuse interstitial opacities persis t. Hazy densities from large body habitus. There appear to be small effusions on the lateral view whi ch would be new from the exam from yesterday. IMPRESSION: Limited due to large body habitus. Moderate cardiomegaly and continued interstitial pulmonary edema. New small bilateral pleural effusions on the lateral view.
[2022-07-09 08:38] LABS: Albumin 3.4 g/dL (3.5-5.0); Calcium 8.8 mg/dL (8.4-10.2); Magnesium 2.4 mg/dL (1.6-2.3); Potassium 5.4 mmol/L (3.5-5.1); Total Protein 6.5 g/dL (6.3-8.2)
[2022-07-09] MEDS ORDERED: FUROSEMIDE 10 MG/ML 4 ML VIAL IV STA ×2 (09:13→11:54)
[2022-07-09] MEDS ORDERED: NALOXONE 0.4 MG/ML 1 ML VIAL IV PRN (11:46)
[2022-07-09] MEDS ORDERED: polyethylene glycoL 3350 17 GM POWD.PACK PO PRN (11:48)
[2022-07-09 12:35] LABS: Glucose,Whole Blood 125 mg/dL (70-110)
[2022-07-09] MEDS: INSULIN ASPART (NovoLOG) 100 UNIT/ML VIAL SQ SCH ×2 (13:00→20:50)
--- NOTE | 2022-07-09 15:53 | P.CNPUL ---
History of Present Illness Consult date: 07/09/22 Requesting physician: Maik Jama Reason for consult: dyspnea, hypoxemia Chief complaint: Shortness of breath History of present illness: This a 72-year-old female patient with a known history of chronic hypoxemic and hypercapnic respiratory failure. Chest has a history of coronary artery disease with coronary artery bypass grafting, atrial fibrillation, diabetes mellitus, hyperlipidemia, hypertension, obesity, obstructive sleep apnea, hypothyroidism, diabetic retinopathy and diabetic neuropathy, gout, stage III kidney disease. She had recently been discharged from here in May to [facility]. She has since been discharged home. She presented here to the emergency room e [place] this morning with worsening shortness of breath. Chest x-ray is somewhat limited due to her large body habitus. There is moderate cardiomegaly and continued interstitial pulmonary edema. Small bilateral effusions. She is currently in atrial fibrillation with a controlled ventricular rate. White count 6.4. Hemoglobin 7.5. Platelets 184. Sodium 143. Potassium 5.4. Chloride 109. Bicarb 31. BUN 35. Creatinine 1.33. ProBNP 3960. Troponin negative. Odell virus screen negative. In fluenza screen negative. She was initially on oxygen at 3 L/m per nasal cannula. She is currently seen in the emergency department in consultation. She's on BiPAP 12/6 and 35% FiO2. She has lower extremity edema. She is somewhat lethargic. She has basilar crackles. She's been initiated on Lasix 40 mg IV every 12 hours. Anticoagulated with Eliquis. Review of Systems REVIEW OF SYSTEMS: CONSTITUTIONAL: Denies any recent significant weight loss or weight gain. EYES: Denies change in vision. EARS, NOSE, MOUTH, THROAT: Denies headaches, denies sore throat. CARDIOVASCULAR: Denies chest pain, palpitations or syncopal episodes. RESPIRATORY: Positive for shortness of breath, cough, congestion no hemoptysis. GASTROINTESTINAL: Denies change in appetite, denies abdominal pain GENITOURINARY: Denies hematuria, denies infections. MUSKULOSKELETAL: Positive for lower extremity edema. INTEGUMENTARY: Denies rash, denies eczema. NEUROLOGICAL: Denies recent memory loss, no recent seizure activity. PSYCHIATRIC: Denies anxiety, denies depression. HEMATOLOGIC/LYMPHATIC: Denies anemia, denies enlarged lymph nodes. Past Medical History Past Medical History: Atrial Fibrillation, Coronary Artery Disease (CAD), Diabetes Mellitus, Eye Disorder, Hyperlipidemia, Hypertension, Osteoarthritis (OA), Pneumonia, Renal Disease, Sleep Apnea/CPAP/BIPAP, Thyroid Disorder Additional Past Medical History / Comment(s): Pt recently admitted to [facility] on 05/08/22 with anemia/had EGD and colonoscopy which showed nonbleeding stomach ulcer/diverticular disease and colon polyp, pt received blood transfusions. Other hx: 02/12/22 covid/pneumonia/sepsis, other past pneumonias, acute hypoxic respiratory failure/now on home oxygen ATC, new A fib with RVR, IDDM type II, neuropathy bilateral feet, L eye retinal bleed/lasik eye surgery, R eye cataract, bilateral eye macular degeneration/gets injections/poor vision, CKD stage III, anemia, UTI/sepsis, bilateral leg lymphedema, FLORES/does not have cpap machine at this time, diverticulitis, gout, chronic back pain, rheumatic fever, hypothyroid. History of Any Multi-Drug Resistant Organisms: ESBL Date of last positivie culture/infection: 05/22/22 ESBL Klebsiella MDRO Source:: Urine Past Surgical History: Bariatric Surgery, Section, Cholecystectomy, Coronary Bypass/CABG, Heart Catheterization, Hysterectomy, Orthopedic Surgery, Tonsillectomy Additional Past Surgical History / Comment(s): EGD, colonoscopy, 2 vessel CABG in 1996, bilateral carpal tunnel release, lap band, L eye laser surgery, Past Anesthesia/Blood Transfusion Reactions: No Reported Reaction Past Psychological History: Depression Smoking Status: Never smoker - Past Family History Father Family Medical History: Cancer, Coronary Artery Disease (CAD), Diabetes Mellitus Additional Family Medical History / Comment(s): Prostate cancer Mother Family Medical History: Cancer Additional Family Medical History / Comment(s): Bone cancer. Medications and Allergies Home Medications Medication Instructions Recorded Confirmed Type Atorvastatin [Lipitor] 40 mg PO HS 08/10/16 07/09/22 History Isosorbide Mononitrate [Isosorbide 30 mg PO DAILY 08/10/16 07/09/22 History Mononitrate ER] Oxybutynin Chloride 5 mg PO BID 08/10/16 07/09/22 History Metoprolol Tartrate [Lopressor] 50 mg PO DAILY 04/12/22 07/09/22 History Mirtazapine [Remeron] 15 mg PO HS 04/12/22 07/09/22 History Acetaminophen Tab [Tylenol] 650 mg PO Q6H PRN 05/08/22 07/09/22 History Docusate [Colace] 100 mg PO DAILY PRN 05/08/22 07/09/22 History Levothyroxine Sodium [Synthroid] 50 mcg PO DAILY 05/22/22 07/09/22 History Omeprazole [PriLOSEC] 20 mg PO DAILY 05/22/22 07/09/22 History Gabapentin [Neurontin] 300 mg PO BID #6 cap 05/27/22 07/09/22 Rx Apixaban [Eliquis] 5 mg PO BID 07/09/22 07/09/22 History Furosemide [Lasix] 20 mg PO DAILY 07/09/22 07/09/22 History INSULIN ASPART (NovoLOG) [NovoLOG 35 - 40 unit SQ AC-TID 07/09/22 07/09/22 History (formulary)] Insulin Detemir (Levemir) [Levemir] 55 - 60 unit SQ BID 07/09/22 07/09/22 History Potassium Chloride ER [K-Dur 10] 20 meq PO DAILY 07/09/22 07/09/22 History polyethylene glycoL 3350 [Miralax] 17 gm PO DAILY PRN 07/09/22 07/09/22 History Allergies Allergy/AdvReac Type Severity Reaction Status Date / Time ibuprofen [From Motrin] Allergy Rash/Hives Verified 07/09/22 11:13 Penicillins Allergy Anaphylaxis Verified 07/09/22 11:13 Physical Exam Vitals: Vital Signs Temp Pulse Resp BP Pulse Ox FiO2 07/09/22 14:25 98 18 138/58 99 07/09/22 12:02 35 07/09/22 11:31 100 18 139/74 95 07/09/22 09:11 88 18 133/68 98 07/09/22 07:00 74 18 139/74 100 07/09/22 06:07 100 16 148/73 100 07/09/22 06:02 98.7 F 98 22 117/80 98 Intake and Output 07/09/22 07/09/22 07/09/22 06:59 14:59 22:59 Other: Weight 149.685 kg GENERAL EXAM: Lethargic, morbidly obese 72-year-old female, on BiPAP 12/6 and 35% FiO2, comfortable in no apparent distress. HEAD: Normocephalic. EYES: Normal reaction of pupils, equal size. NOSE: Clear with pink turbinates. THROAT: No erythema or exudates. NECK: No masses, no JVD. CHEST: No chest wall deformity. LUNGS: Equal air entry with crackles in the bilateral bases. CVS: S1 and S2 normal with no audible murmur, irregular rhythm. ABDOMEN: Obese, unable to appreciate hepatosplenomegaly, normal bowel sounds, no guarding or rigidity. SPINE: No scoliosis or deformity SKIN: No rashes CENTRAL NERVOUS SYSTEM: No focal deficits, tone is normal in all 4 extremities. EXTREMITIES: There is 1-2+ peripheral edema. No clubbing, no cyanosis. Perip heral pulses are intact. Results - Laboratory Findings CBC and BMP: 07/09/22 07:43 07/09/22 07:43 PT/INR, D-dimer PT 11.7 sec (9.0-12.0) 07/09/22 07:43 INR 1.1 (<1.2) 07/09/22 07:43 Abnormal lab findings: Abnormal Labs 07/09/22 07/09/22 07/09/22 07:43 07:43 12:34 RBC 2.56 L Hgb 7.5 L Hct 23.9 L RDW 16.3 H Lymphocytes # 0.8 L Potassium 5.4 H Chloride 109 H Carbon Dioxide 31 H BUN 35 H Creatinine 1.33 H POC Glucose (mg/dL) 125 H Magnesium 2.4 H Albumin 3.4 L - Diagnostic Findings Chest x-ray: image reviewed Assessment and Plan Assessment: Acute on chronic hypoxic respiratory failure secondary to an acute exacerbation of diastolic congestive heart failure Acute on chronic hypercapnic respiratory failure secondary to above Morbid obesity with a BMI of 60 kg per metered square Obstructive sleep apnea Chronic atrial fibrillation anticoagulated with Eliquis Hyperlipidemia Hypertension Hypothyroidism Coronary artery disease with previous coronary artery bypass grafting 2 in 1996 History of depression Chronic back pain History of gout Chronic stage III kidney disease Diabetes mellitus Diabetic neuropathy Nonsmoker Poor overall functional performance based on the above-mentioned multiple comorbidities Plan: The patient was seen and evaluated Chest x-ray, labs and medications reviewed Continue IV diuretics Continue BiPAP support throughout the night and during the day while napping We will continue to follow and make further recommendations based on her clinical status I have personally seen and examined the patient, performed the documentation and the assessment and plan as written. Number of minutes spent on the visit: 20.
[2022-07-09] MEDS ORDERED: DOCUSATE 100 MG CAP PO PRN (16:03)
[2022-07-09] MEDS ORDERED: IPRATROPIUM-ALBUTEROL 3 ML NEB INHALATION PRN (16:04)
[2022-07-09 19:13] LABS: Glucose,Whole Blood 53 mg/dL (70-110)
[2022-07-09 19:29] LABS: Glucose,Whole Blood 65 mg/dL (70-110)
[2022-07-09] MEDS: IPRATROPIUM-ALBUTEROL 3 ML NEB INHALATION SCH (19:50)
[2022-07-09 20:02] LABS: Glucose,Whole Blood 73 mg/dL (70-110)
[2022-07-09] MEDS: INSULIN DETEMIR (LEVEMIR) 100 UNIT/ML SYR SQ SCH (20:47)
[2022-07-09] MEDS: GABAPENTIN 300 MG CAP PO SCH (20:50)
[2022-07-09] MEDS: APIXABAN 5 MG TAB PO SCH (20:50)
[2022-07-09] MEDS: FUROSEMIDE 10 MG/ML 4 ML VIAL IV SCH (20:50)
[2022-07-09] MEDS: OXYBUTYNIN CHLORIDE 5 MG TAB PO SCH (20:50)
[2022-07-09] MEDS: ATORVASTATIN 40 MG TAB PO SCH (20:50)
[2022-07-09] MEDS: MIRTAZAPINE 15 MG TAB PO SCH (20:50)
[2022-07-09 23:20] LABS: Appearance,Urine Clear (Clear); Bilirubin,Urine Negative (Negative); Blood,Urine Negative (Negative); Color,Urine Colorless; Glucose,Urine (UA) Negative (Negative); Ketones,Urine Negative (Negative); Leukocyte Esterase,Urine Negative (Negative); Nitrite,Urine Negative (Negative); PH, Urine 5.5 (5.0-8.0); Protein,Urine Negative (Negative); Specific Gravity,Urine 1.008 (1.001-1.035); Urobilinogen,Urine <2.0 mg/dL (<2.0)
[2022-07-10] MEDS: LEVOTHYROXINE 50 MCG TAB PO SCH (06:28)
[2022-07-10] MEDS: INSULIN ASPART (NovoLOG) 100 UNIT/ML VIAL SQ SCH ×3 (06:28→18:12)
[2022-07-10] MEDS: PANTOPRAZOLE 40 MG TABLET PO SCH (06:28)
[2022-07-10 06:30] LABS: Glucose,Whole Blood 107 mg/dL (70-110)
--- NOTE | 2022-07-10 07:04 | P.PN ---
Subjective Progress Note Date: 07/10/22 Principal diagnosis: Shortness of breath/CHF. This a 72-year-old female patient with a known history of chronic hypoxemic and hypercapnic respiratory failure. Chest has a history of coronary artery disease with coronary artery bypass grafting, atrial fibrillation, diabetes mellitus, hyperlipidemia, hypertension, obesity, obstructive sleep apnea, hypothyroidism, diabetic retinopathy and diabetic neuropathy, gout, stage III kidney disease. She had recently been discharged from here in May to [facility] the [place]. She has since been discharged home. She presented here to the emergency room early this morning with worsening shortness of breath. Chest x-ray is somewhat limited due to her large body habitus. There is moderate cardiomegaly and continued interstitial pulmonary edema. Small bilateral effusions. She is currently in atrial fibrillation with a controlled ventricular rate. White count 6.4. Hemoglobin 7.5. Platelets 184. Sodium 143. Potassium 5.4. Chloride 109. Bicarb 31. BUN 35. Creatinine 1.33. ProBNP 3960. Troponin negative. Odell virus screen negative. Influenza screen negative. She was initially on oxygen at 3 L/m per nasal cannula. She is currently seen in the emergency department in consultation. She's on BiPAP 12/6 and 35% FiO2. She has lower extremity edema. She is somewhat lethargic. She has basilar crackles. She's been initiated on Lasix 40 mg IV every 12 hours. Anticoagulated with Eliquis. Progress note dated 07/10/2022. This is a 72-year-old female well-known to our service. She has a history of chronic hypoxemic and hypercapnic respiratory failure, primarily secondary to CHF. She was seen by me in the emergency department yesterday, trauma room 2. At that time, she was on BiPAP. She is being admitted to the hospital. She's currently seen today in room 615. No new labs today as yet. Labs July 09 are reviewed. X-rays were reviewed. She's had 6 admissions to this hospital this year already. She remains on BiPAP, at 35%. Vital signs are stable including a temperature of 98, heart rate 93, respiratory rate 19, and blood pressure 120/67. BiPAP settings include 12/6 and 35%. Objective - Vital Signs Vital signs: Vital Signs Temp 98 F 07/10/22 02:00 Pulse 93 07/10/22 02:00 Resp 19 07/10/22 02:00 BP 120/67 07/10/22 02:00 Pulse Ox 100 07/10/22 02:00 FiO2 35 07/10/22 03:32 Intake & Output 07/09/22 07/09/22 07/10/22 06:59 18:59 06:59 Output Total 1900 Balance -1900 Weight 149.685 kg 149.685 kg Output: Urine 1900 Other: Voiding Method External Catheter - Exam No acute distress, lethargic, does arouse, BiPAP mask in place. HEENT examination is grossly unremarkable. Neck supple. Full range of motion. No adenopathy thyromegaly or neck vein distention. Cardiovascular examination reveals regular rhythm rate. S1-S2 normal. No S3 or S4. No discernible murmur noted. Heart sounds are distant. Heart rate 93 bpm. Lungs reveal scattered bilateral rhonchi and crackles. Breath sounds equal. No wheezes. Saturations are 99%. Abdomen obese. No masses. Extremities reveal chronic edema, without cyanosis or clubbing. Skin reveals multiple areas of ecchymoses. Chronic venous changes to the lower extremities. Neurologic examination is brief but nonfocal. Patient is much more awake today than yesterday. - Labs CBC & Chem 7: 07/09/22 07:43 07/09/22 07:43 Labs: Abnormal Lab Results - Last 24 Hours (Table) 07/09/22 07/09/22 07/09/22 Range/Units 07:43 07:43 12:34 RBC 2.56 L (3.80-5.40) m/uL Hgb 7.5 L (11.4-16.0) gm/dL Hct 23.9 L (34.0-46.0) % RDW 16.3 H (11.5-15.5) % Lymphocytes # 0.8 L (1.0-4.8) k/uL Potassium 5.4 H (3.5-5.1) mmol/L Chloride 109 H (98-107) mmol/L Carbon Dioxide 31 H (22-30) mmol/L BUN 35 H (7-17) mg/dL Creatinine 1.33 H (0.52-1.04) mg/dL POC Glucose (mg/dL) 125 H (70-110) mg/dL Magnesium 2.4 H (1.6-2.3) mg/dL Albumin 3.4 L (3.5-5.0) g/dL 07/09/22 07/09/22 Range/Units 19:11 19:28 RBC (3.80-5.40) m/uL Hgb (11.4-16.0) gm/dL Hct (34.0-46.0) % RDW (11.5-15.5) % Lymphocytes # (1.0-4.8) k/uL Potassium (3.5-5.1) mmol/L Chloride (98-107) mmol/L Carbon Dioxide (22-30) mmol/L BUN (7-17) mg/dL Creatinine (0.52-1.04) mg/dL POC Glucose (mg/dL) 53 L 65 L (70-110) mg/dL Magnesium (1.6-2.3) mg/dL Albumin (3.5-5.0) g/dL Assessment and Plan Assessment: Acute on chronic hypoxic respiratory failure secondary to an acute exacerbation of diastolic congestive heart failure. Acute on chronic hypercapnic respiratory failure. Morbid obesity with a BMI of 60 kg per metered square. Obstructive sleep apnea. Chronic atrial fibrillation. Hyperlipidemia. Hypertension. Hypothyroidism. Coronary artery disease with previous coronary artery bypass grafting 2 in 1996. History of depression. Chronic back pain. History of gout. Chronic stage III kidney disease. Diabetes mellitus with diabetic neuropathy. Poor overall functional performance based on the above-mentioned multiple comorbidities. Plan: Plan dated 07/10/2022. We will continue to follow and make recommendations along the way. The patient has had 6 admissions this year already, with similar episodes of acute on chronic hypoxemic and hypercapnic respiratory failure secondary to CHF. Labs, x-rays, and medications are reviewed. Prognosis is poor. We will continue to follow make recommendations. Time with Patient: Less than 30
[2022-07-10] MEDS: IPRATROPIUM-ALBUTEROL 3 ML NEB INHALATION SCH ×4 (08:02→19:29)
[2022-07-10 08:55] LABS: Basophils # (A) 0.02 X 10*3/uL (0.00-0.10); Basophils % (A) 0.3 %; Eosinophils # (A) 0.16 X 10*3/uL (0.04-0.35); Eosinophils % (A) 2.2 %; HCT 23.9 % (37.2-46.3); HGB 7.2 g/dL (12.0-15.0); Immature Grans, Automated 0.4 %; Lymphocytes # (A) 0.89 X 10*3/uL (0.90-5.00); Lymphocytes % (A) 12.3 %; MCH 28.6 pg (27.0-32.0); MCHC 30.1 g/dL (32.0-37.0); MCV 94.8 fL (80.0-97.0); Mean Platelet Volume 10.9 fL (9.5-12.2); Monocytes # (A) 0.56 X 10*3/uL (0.20-1.00); Monocytes % (A) 7.8 %; NRBC Per 100 WBC 0 /100 WBCS (0.0-0.0); Neutrophils # (A) 5.55 X 10*3/uL (1.80-7.70); Platelet Count 175 X 10*3/uL (140-440); RBC 2.52 X 10*6/uL (4.10-5.20); WBC 7.21 X 10*3/uL (4.50-10.00)
[2022-07-10 09:18] LABS: African American GFR (CKD) 47.1 (60.0-200.0); BUN/Creat Ratio 22.92 Ratio (12.00-20.00); Blood Urea Nitrogen 29.8 mg/dL (9.0-27.0); Calcium 9.3 mg/dL (8.7-10.3); Non-African American GFR(CKD) 40.7 (60.0-200.0); Potassium 4.7 mmol/L (3.5-5.5)
--- NOTE | 2022-07-10 09:24 | P.CRDCN ---
History of Present Illness Consult date: 07/10/22 Consult reason: congestive heart failure History of present illness: History of present illness: This is a 72-year-old female patient of Dr. Weller with a past medical history significant for permanent atrial fibrillationon eliquis, coronary artery disease with prior stenting, chronic diastolic heart failure, aortic stenosis, hypertension and dyslipidemia. We are consulted for congestive heart failure. The patient presented yesterday due to worsening shortness of breath and going on for the last few days. She is seen today in the emergency center waiting for a bed on the observation unit. She has been started on IV Lasix 40 mg every 12 hours and home cardiac medications been resumed. Patient states that her breathing is better at this time but note the patient is on a BiPAP FiO2 of 30 with pulse ox 100%. Vital signs are stable. Recent hospitalization with discharge on 05/28/2022 due to acute GI bleed requiring transfusion of 3 units of packed RBCs and EGD finding nonbleeding antral ulceration as well as colonoscopy was suspected diverticular bleeding. Anticoagulation was resumed following procedures. EKG atrial fibrillation with controlled rate Hemoglobin is 7.2, potassium 5.4, BUN 35 creatinine 1.33. Troponin negative 1. ProBNP 3960. Coronavirus PCR not detected. Influenza A and influenza B not detected Chest x-ray is limited due to body habitus. Moderate cardiomegaly and continued interstitial pulmonary edema. New Small bilateral pleural effusions on the lateral view. Echo 04/07/2022- EF 4550 percent, moderate concentric LVH, severe pulmonary hypertension, mild aortic regurgitation, mild aortic stenosis, mean gradient of 14 mmHg. Severe tricuspid regurgitation RVSP 61mmHG. Review Of Systems: Constitutional: No fever, no chills. No weakness, fatigue or lethargy. EENT: No headache. No dizziness. Lungs: Reports shortness of breath, cough, no sputum production. No wheezing. Cardiovascular: No chest pain, no lower extremity edema. No palpitations. No paroxysmal nocturnal dyspnea. No orthopnea. No lightheadedness or dizziness. No syncopal episodes. Abdominal: No abdominal pain. No nausea, vomiting. No diarrhea. No constipation. No bloody or tarry stools.. No loss of appetite. Genitourinary: No dysuria.. No urinary retention. Musculoskeletal: No myalgias. No muscle weakness, no gait dysfunction, no frequent falls. No back pain. No neck pain. Integumentary: No wounds. No unusual bruising. Neurologic: No aphasia. No facial droop. No change in mentation. No head injury. No headache. No paralysis. No paresthesia. Psychiatric: No depression. No anxiety. Endocrine: No abnormal blood sugars. Physical examination: Gen: This is a super morbid obese 72-year-old female. She is resting flat on the ER stretcher with BiPAP in place and appears to be comfortable VS: Reviewed HEENT: Head is atraumatic, normocephalic. Pupils equal, round. Sclerae is anicteric. NECK: Supple. No JVD. No lymphadenopathy. No thyromegaly. LUNGS: Bilateral rhonchi. No intercostal retractions. HEART: Regular rate and rhythm. No murmur. ABDOMEN: Soft. Bowel sounds are present. No masses. No tenderness. EXTREMITIES: No pedal edema. No calf tenderness. NEUROLOGICAL: Patient is awake, alert and oriented x3. Cranial nerves 2 through 12 are grossly intact. ASSESSMENT Acute on chronic diastolic heart failure Permanent atrial fibrillation, on Eliquis Recent workup for GI bleed and anemia Coronary artery disease s/p prior stenting Hypertension Dyslipidemia Mild aortic stenosis Severe pulmonary hypertension Severe tricuspid regurgitation PLAN Decrease IV Lasix to once daily 40 mg Monitor I&O, daily weights, electrolytes and renal function No need to repeat echocardiogram as this was done in April Recommend transfer of patient to the cardiac stepdown unit Further recommendations as patient progresses Thank you kindly for this consultation Nurse Practitioner note has been reviewed, I agree with a documented findings and plan of care. Patient was seen and examined. Past Medical History Past Medical History: Atrial Fibrillation, Coronary Artery Disease (CAD), Diabetes Mellitus, Eye Disorder, Hyperlipidemia, Hypertension, Osteoarthritis (OA), Pneumonia, Renal Disease, Sleep Apnea/CPAP/BIPAP, Thyroid Disorder Additional Past Medical History / Comment(s): Pt recently admitted to [facility] on 05/08/22 with anemia/had EGD and colonoscopy which showed nonbleeding stomach ulcer/diverticular disease and colon polyp, pt received blood transfusions. Other hx: 02/12/22 covid/pneumonia/sepsis, other past pneumonias, acute hypoxic respiratory failure/now on home oxygen ATC, new A fib with RVR, IDDM type II, neuropathy bilateral feet, L eye retinal bleed/lasik eye surgery, R eye cataract, bilateral eye macular degeneration/gets injections/poor vision, CKD stage III, anemia, UTI/sepsis, bilateral leg lymphedema, FLORES/does not have cpap machine at this time, diverticulitis, gout, chronic back pain, rheumatic fever, hypothyroid. History of Any Multi-Drug Resistant Organisms: ESBL Date of last positivie culture/infection: 05/22/22 ESBL Klebsiella MDRO Source:: Urine Past Surgical History: Bariatric Surgery, Section, Cholecystectomy, Coronary Bypass/CABG, Heart Catheterization, Hysterectomy, Orthopedic Surgery, Tonsillectomy Additional Past Surgical History / Comment(s): EGD, colonoscopy, 2 vessel CABG in 1996, bilateral carpal tunnel release, lap band, L eye laser surgery, Past Anesthesia/Blood Transfusion Reactions: No Reported Reaction Past Psychological History: Depression Additional Psychological History / Comment(s): Pt nicholas at [facility] for rehab. Recently has been able to take a few steps with walker. Smoking Status: Never smoker Past Alcohol Use History: None Reported Additional Past Alcohol Use History / Comment(s): Patient is a lifelong nonsmoker. Past Drug Use History: None Reported - Past Family History Father Family Medical History: Cancer, Coronary Artery Disease (CAD), Diabetes Mellitus Additional Family Medical History / Comment(s): Prostate cancer Mother Family Medical History: Cancer Additional Family Medical History / Comment(s): Bone cancer. Medications and Allergies Home Medications Medication Instructions Recorded Confirmed Type Atorvastatin [Lipitor] 40 mg PO HS 08/10/16 07/09/22 History Isosorbide Mononitrate [Isosorbide 30 mg PO DAILY 08/10/16 07/09/22 History Mononitrate ER] Oxybutynin Chloride 5 mg PO BID 08/10/16 07/09/22 History Metoprolol Tartrate [Lopressor] 50 mg PO DAILY 04/12/22 07/09/22 History Mirtazapine [Remeron] 15 mg PO HS 04/12/22 07/09/22 History Acetaminophen Tab [Tylenol] 650 mg PO Q6H PRN 05/08/22 07/09/22 History Docusate [Colace] 100 mg PO DAILY PRN 05/08/22 07/09/22 History Levothyroxine Sodium [Synthroid] 50 mcg PO DAILY 05/22/22 07/09/22 History Omeprazole [PriLOSEC] 20 mg PO DAILY 05/22/22 07/09/22 History Gabapentin [Neurontin] 300 mg PO BID #6 cap 05/27/22 07/09/22 Rx Apixaban [Eliquis] 5 mg PO BID 07/09/22 07/09/22 History Furosemide [Lasix] 20 mg PO DAILY 07/09/22 07/09/22 History INSULIN ASPART (NovoLOG) [NovoLOG 35 - 40 unit SQ AC-TID 07/09/22 07/09/22 History (formulary)] Insulin Detemir (Levemir) [Levemir] 55 - 60 unit SQ BID 07/09/22 07/09/22 History Potassium Chloride ER [K-Dur 10] 20 meq PO DAILY 07/09/22 07/09/22 History polyethylene glycoL 3350 [Miralax] 17 gm PO DAILY PRN 07/09/22 07/09/22 History Allergies Allergy/AdvReac Type Severity Reaction Status Date / Time ibuprofen [From Motrin] Allergy Rash/Hives Verified 07/09/22 11:13 Penicillins Allergy Anaphylaxis Verified 07/09/22 11:13 Physical Exam Vitals: Vital Signs Temp Pulse Pulse Resp BP BP Pulse Ox 07/10/22 03:32 07/10/22 02:00 98 F 93 19 120/67 100 07/09/22 23:21 07/09/22 20:00 90 18 138/82 99 07/09/22 19:56 88 07/09/22 19:51 88 07/09/22 18:00 98.7 F 84 18 136/55 97 07/09/22 16:36 07/09/22 16:00 82 18 140/73 95 07/09/22 14:25 98 18 138/58 99 07/09/22 12:02 07/09/22 11:31 100 18 139/74 95 07/09/22 09:11 88 18 133/68 98 FiO2 07/10/22 03:32 35 07/10/22 02:00 30 07/09/22 23:21 35 07/09/22 20:00 35 07/09/22 19:56 07/09/22 19:51 07/09/22 18:00 35 07/09/22 16:36 35 07/09/22 16:00 07/09/22 14:25 07/09/22 12:02 35 07/09/22 11:31 07/09/22 09:11 Intake and Output 07/09/22 07/10/22 07/10/22 22:59 06:59 14:59 Output Total 1100 800 Balance -1100 -800 Output: Urine 1100 800 Other: Voiding Method External Catheter Weight 149.685 kg Results 07/10/22 05:47 07/09/22 07:43 Cardiac Enzymes 07/09/22 07/09/22 Range/Units 07:43 07:43 AST 18 (14-36) U/L Troponin I <0.012 (0.000-0.034) ng/mL Coagulation 07/09/22 Range/Units 07:43 PT 11.7 (9.0-12.0) sec APTT 23.5 (22.0-30.0) sec CBC 07/09/22 Range/Units 07:43 WBC 6.4 (3.8-10.6) k/uL RBC 2.56 L (3.80-5.40) m/uL Hgb 7.5 L (11.4-16.0) gm/dL Hct 23.9 L (34.0-46.0) % Plt Count 184 (150-450) k/uL Comprehensive Metabolic Panel 07/09/22 Range/Units 07:43 Sodium 143 (137-145) mmol/L Potassium 5.4 H (3.5-5.1) mmol/L Chloride 109 H (98-107) mmol/L Carbon Dioxide 31 H (22-30) mmol/L BUN 35 H (7-17) mg/dL Creatinine 1.33 H (0.52-1.04) mg/dL Glucose 82 (74-99) mg/dL Calcium 8.8 (8.4-10.2) mg/dL AST 18 (14-36) U/L ALT 11 (4-34) U/L Alkaline Phosphatase 79 (38-126) U/L Total Protein 6.5 (6.3-8.2) g/dL Albumin 3.4 L (3.5-5.0) g/dL Current Medications Generic Name Dose Route Start Last Admin Trade Name Freq PRN Reason Stop Dose Admin Acetaminophen 650 mg 07/09/22 11:48 Acetaminophen Tab 325 Mg Tab PO Q6H PRN Pain Albuterol/Ipratropium 3 ml 07/09/22 20:00 07/09/22 19:50 Ipratropium-Albuterol 3 Ml Neb INHALATION 3 ml RT-QID LD Administration Albuterol/Ipratropium 3 ml 07/09/22 16:04 Ipratropium-Albuterol 3 Ml Neb INHALATION RT-Q2H PRN Shortness Of Breath Or Wheezing Apixaban 5 mg 07/09/22 21:00 07/09/22 20:50 Apixaban 5 Mg Tab PO 5 mg BID LD Administration Protocol Atorvastatin Calcium 40 mg 07/09/22 21:00 07/09/22 20:50 Atorvastatin 40 Mg Tab PO 40 mg HS LD Administration Docusate Sodium 100 mg 07/09/22 16:03 Docusate 100 Mg Cap PO DAILY PRN Constipation Furosemide 40 mg 07/09/22 21:00 07/09/22 20:50 Furosemide 10 Mg/Ml 4 Ml Vial IV 40 mg Q12HR LD Administration Gabapentin 300 mg 07/09/22 21:00 07/09/22 20:50 Gabapentin 300 Mg Cap PO 300 mg BID LD Administration Insulin Aspart 35 unit 07/09/22 12:30 07/10/22 06:28 Insulin Aspart (Novolog) 100 Unit/Ml Vial SQ Not Given AC-TID LD Insulin Detemir 55 unit 07/09/22 21:00 07/09/22 20:47 Insulin Detemir (Levemir) 100 Unit/Ml Syr SQ Not Given BID LD Isosorbide Mononitrate 30 mg 07/10/22 09:00 Isosorbide Mononitrate Er 30 Mg Tab.Er.24h PO DAILY LD Levothyroxine Sodium 50 mcg 07/10/22 06:30 07/10/22 06:28 Levothyroxine 50 Mcg Tab PO 50 mcg DAILY@0630 LD Administration Metoprolol Tartrate 50 mg 07/10/22 09:00 Metoprolol Tartrate 50 Mg Tab PO DAILY LD Mirtazapine 15 mg 07/09/22 21:00 07/09/22 20:50 Mirtazapine 15 Mg Tab PO 15 mg HS LD Administration Naloxone HCl 0.2 mg 07/09/22 11:46 Naloxone 0.4 Mg/Ml 1 Ml Vial IV Q2M PRN Opioid Reversal Oxybutynin Chloride 5 mg 07/09/22 21:00 07/09/22 20:50 Oxybutynin Chloride 5 Mg Tab PO 5 mg BID LD Administration Pantoprazole Sodium 40 mg 07/10/22 07:30 07/10/22 06:28 Pantoprazole 40 Mg Tablet PO 40 mg DAILY@0730 LD Administration Polyethylene Glycol 17 gm 07/09/22 11:48 Polyethylene Glycol 3350 17 Gm Powd.Pack PO DAILY PRN Constipation Potassium Chloride 20 meq 07/10/22 09:00 Potassium Chloride Er 10 Meq Tab.Er.Prt PO DAILY LD Intake and Output 07/09/22 07/10/22 07/10/22 22:59 06:59 14:59 Output Total 1100 800 Balance -1100 -800 Output: Urine 1100 800 Other: Voiding Method External Catheter Weight 149.685 kg 07/09/22 07:43 07/09/22 07:43
[2022-07-10] MEDS: ACETAMINOPHEN TAB 325 MG TAB PO PRN (11:17)
[2022-07-10] MEDS: METOPROLOL TARTRATE 50 MG TAB PO SCH (11:17)
[2022-07-10] MEDS: FUROSEMIDE 10 MG/ML 4 ML VIAL IV SCH ×2 (11:17→11:26)
[2022-07-10] MEDS: APIXABAN 5 MG TAB PO SCH ×2 (11:17→20:59)
[2022-07-10] MEDS: OXYBUTYNIN CHLORIDE 5 MG TAB PO SCH ×2 (11:17→20:59)
[2022-07-10] MEDS: POTASSIUM CHLORIDE ER 10 MEQ TAB.ER.PRT PO SCH (11:18)
[2022-07-10] MEDS: INSULIN DETEMIR (LEVEMIR) 100 UNIT/ML SYR SQ SCH ×2 (11:18→21:00)
[2022-07-10] MEDS: ISOSORBIDE MONONITRATE ER 30 MG TAB.ER.24H PO SCH (11:18)
[2022-07-10] MEDS: GABAPENTIN 300 MG CAP PO SCH ×2 (11:19→20:59)
[2022-07-10 13:59] LABS: Glucose,Whole Blood 230 mg/dL (70-110)
[2022-07-10 17:19] LABS: Glucose,Whole Blood 165 mg/dL (70-110)
--- NOTE | 2022-07-10 17:35 | P.HPIM ---
History of Present Illness H&P Date: 07/09/22 Chief Complaint: Worsening shortness of breath This is a 72-year-old female recently discharged from [facility] subacute rehab with known chronic hypoxic respiratory failure, multifactorial, wears 3L nasal cannula O2 at home. Patient was discharged home and had issues obtaining nebulizer/received a couple days prior to admission. Reports shortness of breath 3 days, presented to the ER. Chest x-ray limited secondary to large body habitus, reporting cardiomegaly, continued interstitial pulmonary edema, small bilateral effusions. Telemetry atrial fibrillation with controlled ventricular rate. Afebrile, normal WBC, hemoglobin 7.5, platelets 184. Atelectasis within normal limits, bicarb 31, BUN 35, creatinine 1.33. ProBNP 3960. Denies chest pain, palpitations. EKG reporting atrial fibrillation with controlled ventricular rate, Troponin negative.Echo 04/07/2022- EF 4550 percent, moderate concentric LVH, severe pulmonary hypertension, mild aortic regurgitation, mild aortic stenosis Severe tricuspid regurgitation. Influenza and Odell virus screening negative. Currently awaiting BiPAP, short of breath with conversing, lethargic. IV push diuretics initiated. Review of Systems ROS Statement: Those systems with pertinent positive or pertinent negative responses have been documented in the HPI. ROS Other: All systems not noted in ROS Statement are negative. Past Medical History Past Medical History: Atrial Fibrillation, Coronary Artery Disease (CAD), Diabetes Mellitus, Eye Disorder, Hyperlipidemia, Hypertension, Osteoarthritis (OA), Pneumonia, Renal Disease, Sleep Apnea/CPAP/BIPAP, Thyroid Disorder Additional Past Medical History / Comment(s): Pt recently admitted to [facility] on 05/08/22 with anemia/had EGD and colonoscopy which showed nonbleeding stomach ulcer/diverticular disease and colon polyp, pt received blood transfusions. Other hx: 02/12/22 covid/pneumonia/sepsis, other past pneumonias, acute hypoxic respiratory failure/now on home oxygen ATC, new A fib with RVR, IDDM type II, neuropathy bilateral feet, L eye retinal bleed/lasik eye surgery, R eye cataract, bilateral eye macular degeneration/gets injections/poor vision, CKD stage III, anemia, UTI/sepsis, bilateral leg lymphedema, FLORES/does not have cpap machine at this time, diverticulitis, gout, chronic back pain, rheumatic fever, hypothyroid. History of Any Multi-Drug Resistant Organisms: ESBL Date of last positivie culture/infection: 05/22/22 ESBL Klebsiella MDRO Source:: Urine Past Surgical History: Bariatric Surgery, Section, Cholecystectomy, Coronary Bypass/CABG, Heart Catheterization, Hysterectomy, Orthopedic Surgery, Tonsillectomy Additional Past Surgical History / Comment(s): EGD, colonoscopy, 2 vessel CABG in 1996, bilateral carpal tunnel release, lap band, L eye laser surgery, Past Anesthesia/Blood Transfusion Reactions: No Reported Reaction Past Psychological History: Depression Smoking Status: Never smoker - Past Family History Father Family Medical History: Cancer, Coronary Artery Disease (CAD), Diabetes Mellitus Additional Family Medical History / Comment(s): Prostate cancer Mother Family Medical History: Cancer Additional Family Medical History / Comment(s): Bone cancer. Medications and Allergies Home Medications Medication Instructions Recorded Confirmed Type Atorvastatin [Lipitor] 40 mg PO HS 08/10/16 07/09/22 History Isosorbide Mononitrate [Isosorbide 30 mg PO DAILY 08/10/16 07/09/22 History Mononitrate ER] Oxybutynin Chloride 5 mg PO BID 08/10/16 07/09/22 History Metoprolol Tartrate [Lopressor] 50 mg PO DAILY 04/12/22 07/09/22 History Mirtazapine [Remeron] 15 mg PO HS 04/12/22 07/09/22 History Acetaminophen Tab [Tylenol] 650 mg PO Q6H PRN 05/08/22 07/09/22 History Docusate [Colace] 100 mg PO DAILY PRN 05/08/22 07/09/22 History Levothyroxine Sodium [Synthroid] 50 mcg PO DAILY 05/22/22 07/09/22 History Omeprazole [PriLOSEC] 20 mg PO DAILY 05/22/22 07/09/22 History Gabapentin [Neurontin] 300 mg PO BID #6 cap 05/27/22 07/09/22 Rx Apixaban [Eliquis] 5 mg PO BID 07/09/22 07/09/22 History Furosemide [Lasix] 20 mg PO DAILY 07/09/22 07/09/22 History INSULIN ASPART (NovoLOG) [NovoLOG 35 - 40 unit SQ AC-TID 07/09/22 07/09/22 History (formulary)] Insulin Detemir (Levemir) [Levemir] 55 - 60 unit SQ BID 07/09/22 07/09/22 History Potassium Chloride ER [K-Dur 10] 20 meq PO DAILY 07/09/22 07/09/22 History polyethylene glycoL 3350 [Miralax] 17 gm PO DAILY PRN 07/09/22 07/09/22 History Allergies Allergy/AdvReac Type Severity Reaction Status Date / Time ibuprofen [From Motrin] Allergy Rash/Hives Verified 07/09/22 11:13 Penicillins Allergy Anaphylaxis Verified 07/09/22 11:13 Physical Exam Vitals: Vital Signs Temp Pulse Resp BP Pulse Ox FiO2 07/09/22 14:25 98 18 138/58 99 07/09/22 12:02 35 07/09/22 11:31 100 18 139/74 95 07/09/22 09:11 88 18 133/68 98 07/09/22 07:00 74 18 139/74 100 07/09/22 06:07 100 16 148/73 100 07/09/22 06:02 98.7 F 98 22 117/80 98 Intake and Output 07/09/22 07/09/22 07/09/22 06:59 14:59 22:59 Other: Weight 149.685 kg - Exam General: Awake, alert and oriented times 3. Respiratory effort increased. HEENT: [PERRL. EOMI. No pharyngeal erythema or exudate.] Neck: [Supple, unable to evaluate JVD-short neck. Cardiac: [Heart irregular in rate and rhythm. No S3. No S4. No clicks, rubs. No murmur.] Lungs: Patient has coarse breath sounds with poor air exchange, bibasilar crackles Abdomen: [Obese, No mass. Bowel sounds presnt and normoactive in all 4 quadrants.] Extremes: [Positive edema, no cyanosis,normal pulses] Skin: Warm and dry,No rash. Results CBC & Chem 7: 07/10/22 05:47 07/10/22 05:47 Labs: Abnormal Lab Results - Last 24 Hours (Table) 07/09/22 07/09/22 07/09/22 Range/Units 07:43 07:43 12:34 RBC 2.56 L (3.80-5.40) m/uL Hgb 7.5 L (11.4-16.0) gm/dL Hct 23.9 L (34.0-46.0) % RDW 16.3 H (11.5-15.5) % Lymphocytes # 0.8 L (1.0-4.8) k/uL Potassium 5.4 H (3.5-5.1) mmol/L Chloride 109 H (98-107) mmol/L Carbon Dioxide 31 H (22-30) mmol/L BUN 35 H (7-17) mg/dL Creatinine 1.33 H (0.52-1.04) mg/dL POC Glucose (mg/dL) 125 H (70-110) mg/dL Magnesium 2.4 H (1.6-2.3) mg/dL Albumin 3.4 L (3.5-5.0) g/dL Assessment and Plan Assessment: Acute on chronic diastolic congestive heart failure Acute on chronic hypoxic, hypercapnic respiratory failure, secondary to the above, wears 3 L NC O2 at home Obstructive sleep apnea, hypercapnic requiring BiPAP History of COVID-19 pneumonia January 2022 with chronic fibrotic changes secondary to the Covid infection as per pulmonary Recent admission for acute GI bleed with anemia .Chronic anemia, iron deficient. Recent EGD, colonoscopy reporting nonbleeding antral ulceration, suspected diverticular bleeding, followed by repeat EGD reporting antral gastritis. Moderate pulmonary hypertension Mild aortic stenosis Severe tricuspid regurgitation Chronic kidney disease,III History of UTI with Klebsiella pneumoniae, ESBL History of Chronic Bilateral lower extremity cellulitis Chronic atrial fibrillation CAD, history of CABG Hypertension hyperlipidemia Diabetes mellitus, hemoglobin A1c 6.9 Diabetic neuropathy Hypothyroidism Depression, history of History of bariatric surgery Morbid obesity, BMI 60.4 Plan: Continue on current medication regime ,monitoring and symptomatic treatment. IV push diuretics, BiPAP. Cardiology and pulmonary consults in place, recommendations pending. PPI for GI prophylaxis. Anticoagulated on Eliquis. The impression and plan of care has been dictated as directed. : I performed a history and examination of this patient, discussed the same with the dictator. I agree with the dictator's note ,documented as a scribe. Any additional findings or plans will be noted.
--- NOTE | 2022-07-10 17:43 | P.PN ---
Subjective Progress Note Date: 07/10/22 H&P Date: 07/09/22 Chief Complaint: Worsening shortness of breath This is a 72-year-old female recently discharged from [facility] subacute rehab with known chronic hypoxic respiratory failure, multifactorial, wears 3L nasal cannula O2 at home. Patient was discharged home and had issues obtaining nebulizer/received a couple days prior to admission. Reports shortness of breath 3 days, presented to the ER. Chest x-ray limited secondary to large body habitus, reporting cardiomegaly, continued interstitial pulmonary edema, small bilateral effusions. Telemetry atrial fibrillation with controlled ventricular rate. Afebrile, normal WBC, hemoglobin 7.5, platelets 184. Atelectasis within normal limits, bicarb 31, BUN 35, creatinine 1.33. ProBNP 3960. Denies chest pain, palpitations. EKG reporting atrial fibrillation with controlled ventricular rate, Troponin negative.Echo 04/07/2022- EF 4550 percent, moderate concentric LVH, severe pulmonary hypertension, mild aortic regurgitation, mild aortic stenosis Severe tricuspid regurgitation. Influenza and Odell virus screening negative. Currently awaiting BiPAP, short of breath with conversing, lethargic. IV push diuretics initiated. 07/10/2022 maintained on nebulized bronchodilators, IV steroids with significant clinical improvement. Weaned off of BiPAP with 35% currently maintaining O2 sats in the 90s on 3 L nasal cannula. Afebrile. Labs pending. Objective - Vital Signs Vital signs: Vital Signs Temp 97.6 F 07/10/22 13:16 Pulse 106 H 07/10/22 15:37 Resp 18 07/10/22 13:16 BP 147/71 07/10/22 13:16 Pulse Ox 99 07/10/22 13:16 FiO2 35 07/10/22 08:04 Intake & Output 07/09/22 07/10/22 07/10/22 18:59 06:59 18:59 Output Total 1900 1000 Balance -1900 -1000 Weight 149.685 kg Output: Urine 1900 1000 Other: Voiding Method External Catheter External Catheter - Exam - Exam General: Awake, alert and oriented times 3. NAD. HEENT: [PERRL. EOMI. No pharyngeal erythema or exudate.] Neck: [Supple, unable to evaluate JVD-short neck. Cardiac: [Heart irregular in rate and rhythm. No S3. No S4. No clicks, rubs. No murmur.] Lungs: Patient has coarse breath sounds with few fine bibasilar crackles Abdomen: [Obese, No mass. Bowel sounds presnt and normoactive in all 4 quadrants.] Extremes: [Positive edema, chronic venous changes of lower extremities ,normal pulses] Skin: Warm and dry, No rash. - Labs CBC & Chem 7: 07/10/22 05:47 07/10/22 05:47 Labs: Abnormal Lab Results - Last 24 Hours (Table) 07/09/22 07/09/22 07/10/22 Range/Units 19:11 19:28 05:47 RBC 2.52 L (4.10-5.20) X 10*6/uL Hgb 7.2 L (12.0-15.0) g/dL Hct 23.9 L (37.2-46.3) % MCHC 30.1 L (32.0-37.0) g/dL RDW 17.0 H (11.5-14.5) % Lymphocytes # 0.89 L (0.90-5.00) X 10*3/uL D-Dimer (<0.60) mg/L FEU Carbon Dioxide (20.0-27.5) mmol/L Anion Gap (10.00-18.00) mmol/L BUN (9.0-27.0) mg/dL Est GFR (CKD-EPI)AfAm (60.0-200.0) Est GFR (CKD-EPI)NonAf (60.0-200.0) BUN/Creatinine Ratio (12.00-20.00) Ratio POC Glucose (mg/dL) 53 L 65 L (70-110) mg/dL 07/10/22 07/10/22 07/10/22 Range/Units 05:47 10:38 13:57 RBC (4.10-5.20) X 10*6/uL Hgb (12.0-15.0) g/dL Hct (37.2-46.3) % MCHC (32.0-37.0) g/dL RDW (11.5-14.5) % Lymphocytes # (0.90-5.00) X 10*3/uL D-Dimer 1.50 H (<0.60) mg/L FEU Carbon Dioxide 33.0 H (20.0-27.5) mmol/L Anion Gap 7.00 L (10.00-18.00) mmol/L BUN 29.8 H (9.0-27.0) mg/dL Est GFR (CKD-EPI)AfAm 47.1 L (60.0-200.0) Est GFR (CKD-EPI)NonAf 40.7 L (60.0-200.0) BUN/Creatinine Ratio 22.92 H (12.00-20.00) Ratio POC Glucose (mg/dL) 230 H (70-110) mg/dL 07/10/22 Range/Units 17:18 RBC (4.10-5.20) X 10*6/uL Hgb (12.0-15.0) g/dL Hct (37.2-46.3) % MCHC (32.0-37.0) g/dL RDW (11.5-14.5) % Lymphocytes # (0.90-5.00) X 10*3/uL D-Dimer (<0.60) mg/L FEU Carbon Dioxide (20.0-27.5) mmol/L Anion Gap (10.00-18.00) mmol/L BUN (9.0-27.0) mg/dL Est GFR (CKD-EPI)AfAm (60.0-200.0) Est GFR (CKD-EPI)NonAf (60.0-200.0) BUN/Creatinine Ratio (12.00-20.00) Ratio POC Glucose (mg/dL) 165 H (70-110) mg/dL Assessment and Plan Assessment: Acute on chronic diastolic congestive heart failure Acute on chronic hypoxic, hypercapnic respiratory failure, secondary to the above, wears 3 L NC O2 at home Obstructive sleep apnea, hypercapnic requiring BiPAP History of COVID-19 pneumonia January 2022 with chronic fibrotic changes secondary to the Covid infection as per pulmonary Recent admission for acute GI bleed with anemia .Chronic anemia, iron deficient. Recent EGD, colonoscopy reporting nonbleeding antral ulceration, suspected diverticular bleeding, followed by repeat EGD reporting antral gastritis. Moderate pulmonary hypertension Mild aortic stenosis Severe tricuspid regurgitation Chronic kidney disease,III History of UTI with Klebsiella pneumoniae, ESBL History of Chronic Bilateral lower extremity cellulitis Chronic atrial fibrillation CAD, history of CABG Hypertension hyperlipidemia Diabetes mellitus, hemoglobin A1c 6.9 Diabetic neuropathy Hypothyroidism Depression, history of History of bariatric surgery Morbid obesity, BMI 60.4 Plan: Continue on current medication regime ,monitoring and symptomatic treatment. IV push diuretics, BiPAP throughout the night and with napping. IV push diuretics decreased, close monitoring of renal function, coags with repeat labs ordered for a.m. Prognosis guarded given multiple complex medical issues. The impression and plan of care has been dictated as directed. : I performed a history and examination of this patient, discussed the same with the dictator. I agree with the dictator's note ,documented as a scribe. Any additional findings or plans will be noted.
[2022-07-10 20:46] LABS: Glucose,Whole Blood 93 mg/dL (70-110)
[2022-07-10] MEDS: ATORVASTATIN 40 MG TAB PO SCH (20:59)
[2022-07-10] MEDS: MIRTAZAPINE 15 MG TAB PO SCH (20:59)
[2022-07-11] MEDS: LEVOTHYROXINE 50 MCG TAB PO SCH (05:22)
[2022-07-11 07:43] LABS: Glucose,Whole Blood 109 mg/dL (70-110)
[2022-07-11] MEDS: INSULIN ASPART (NovoLOG) 100 UNIT/ML VIAL SQ SCH ×3 (07:48→18:06)
[2022-07-11] MEDS: IPRATROPIUM-ALBUTEROL 3 ML NEB INHALATION SCH ×4 (08:39→20:29)
[2022-07-11] MEDS: INSULIN DETEMIR (LEVEMIR) 100 UNIT/ML SYR SQ SCH ×2 (08:47→21:30)
[2022-07-11] MEDS: PANTOPRAZOLE 40 MG TABLET PO SCH (08:48)
[2022-07-11] MEDS: ISOSORBIDE MONONITRATE ER 30 MG TAB.ER.24H PO SCH (08:48)
[2022-07-11] MEDS: OXYBUTYNIN CHLORIDE 5 MG TAB PO SCH ×2 (08:48→21:30)
[2022-07-11] MEDS: METOPROLOL TARTRATE 50 MG TAB PO SCH (08:48)
[2022-07-11] MEDS: APIXABAN 5 MG TAB PO SCH ×2 (08:48→21:30)
[2022-07-11] MEDS: POTASSIUM CHLORIDE ER 10 MEQ TAB.ER.PRT PO SCH (08:48)
[2022-07-11] MEDS: GABAPENTIN 300 MG CAP PO SCH ×2 (08:48→21:30)
[2022-07-11] MEDS: FUROSEMIDE 10 MG/ML 4 ML VIAL IV SCH (08:49)
--- NOTE | 2022-07-11 09:14 | P.PN ---
Subjective Progress Note Date: 07/11/22 Principal diagnosis: Heart failure The patient is a pleasant 72-year-old female patient with a past medical history significant for CAD with prior stenting as well as heart failure with preserved ejection fraction and also permanent atrial fibrillation and morbid obesity and hypertension and dyslipidemia who was admitted to the hospital with congestive heart failure exacerbation with evidence of right and left heart failure. July [id number] The patient was seen and evaluated this morning. She remains short of breath. She continues to have bilateral lower except his edema. She has been diuresing very well on the current dose of Lasix IV which is 40 mg daily. She remains in atrial fibrillation was overall controlled heart rate an average heart rate about 100 beats per minutes. From a cardiac vascular standpoint of view, I would continue the current medical regimen including the current dose of Lasix and continue monitor the kidney function and electrolytes and follow-up with the blood work this morning. Continue oral anticoagulation for the atrial fibril lation Objective - Vital Signs Vital signs: Vital Signs Temp 98.6 F 07/11/22 05:00 Pulse 94 07/11/22 08:51 Resp 16 07/11/22 05:00 BP 127/63 07/11/22 05:00 Pulse Ox 97 07/11/22 08:43 FiO2 35 07/11/22 08:43 Intake & Output 07/10/22 07/11/22 07/11/22 18:59 06:59 18:59 Intake Total 710 Output Total 1600 Balance -1600 710 Weight 149.69 kg Intake: Oral 710 Output: Urine 1600 Other: Voiding Method External Catheter External Catheter # Voids 2 - Constitutional General appearance: Present: no acute distress - Respiratory Respiratory: bilateral: diminished - Cardiovascular Rhythm: irregularly irregular - Labs CBC & Chem 7: 07/10/22 05:47 07/10/22 05:47 Labs: Abnormal Lab Results - Last 24 Hours (Table) 07/10/22 07/10/22 07/10/22 Range/Units 05:47 10:38 13:57 D-Dimer 1.50 H (<0.60) mg/L FEU Carbon Dioxide 33.0 H (20.0-27.5) mmol/L Anion Gap 7.00 L (10.00-18.00) mmol/L BUN 29.8 H (9.0-27.0) mg/dL Est GFR (CKD-EPI)AfAm 47.1 L (60.0-200.0) Est GFR (CKD-EPI)NonAf 40.7 L (60.0-200.0) BUN/Creatinine Ratio 22.92 H (12.00-20.00) Ratio POC Glucose (mg/dL) 230 H (70-110) mg/dL 07/10/22 Range/Units 17:18 D-Dimer (<0.60) mg/L FEU Carbon Dioxide (20.0-27.5) mmol/L Anion Gap (10.00-18.00) mmol/L BUN (9.0-27.0) mg/dL Est GFR (CKD-EPI)AfAm (60.0-200.0) Est GFR (CKD-EPI)NonAf (60.0-200.0) BUN/Creatinine Ratio (12.00-20.00) Ratio POC Glucose (mg/dL) 165 H (70-110) mg/dL Assessment and Plan Assessment: Assessment Heart failure exacerbation secondary to heart failure with preserved ejection fraction Permanent atrial fibrillation with controlled heart rate Morbid obesity Hypertension Dyslipidemia Multiple comorbid conditions Plan Continue the IV Lasix for additional 24 hours Continue monitor the kidney function and electrolytes. Follow-up with a blood work this morning Continue oral anticoagulation
[2022-07-11 09:26] LABS: Basophils # (A) 0.02 X 10*3/uL (0.00-0.10); Basophils % (A) 0.3 %; Eosinophils # (A) 0.12 X 10*3/uL (0.04-0.35); Eosinophils % (A) 1.8 %; HCT 23.4 % (37.2-46.3); HGB 6.8 g/dL (12.0-15.0); Immature Grans, Automated 0.3 %; Lymphocytes # (A) 0.83 X 10*3/uL (0.90-5.00); Lymphocytes % (A) 12.8 %; MCH 28.6 pg (27.0-32.0); MCHC 29.1 g/dL (32.0-37.0); MCV 98.3 fL (80.0-97.0); Mean Platelet Volume 11.2 fL (9.5-12.2); Monocytes # (A) 0.56 X 10*3/uL (0.20-1.00); Monocytes % (A) 8.6 %; NRBC Per 100 WBC 0 /100 WBCS (0.0-0.0); Neutrophils # (A) 4.94 X 10*3/uL (1.80-7.70); Neutrophils % (A) 76.2 %; Platelet Count 175 X 10*3/uL (140-440); RBC 2.38 X 10*6/uL (4.10-5.20); RDW 17.2 % (11.5-14.5); WBC 6.49 X 10*3/uL (4.50-10.00)
[2022-07-11 09:27] LABS: African American GFR (CKD) 39.6 (60.0-200.0); Anion Gap 6.8 mmol/L (10.00-18.00); Calcium 9.1 mg/dL (8.7-10.3); Carbon Dioxide 34.2 mmol/L (20.0-27.5); Non-African American GFR(CKD) 34.2 (60.0-200.0); Potassium 5.5 mmol/L (3.5-5.5)
--- NOTE | 2022-07-11 12:41 | P.PN ---
Subjective 07/09/22:This is a 72-year-old female recently discharged from [facility] subacute rehab with known chronic hypoxic respiratory failure, multifactorial, wears 3L nasal cannula O2 at home. Patient was discharged home and had issues obtaining nebulizer/received a couple days prior to admission. Reports shortness of breath 3 days, presented to the ER. Chest x-ray limited secondary to large body habitus, reporting cardiomegaly, continued interstitial pulmonary edema, small bilateral effusions. Telemetry atrial fibrillation with controlled ventr icular rate. Afebrile, normal WBC, hemoglobin 7.5, platelets 184. Atelectasis within normal limits, bicarb 31, BUN 35, creatinine 1.33. ProBNP 3960. Denies chest pain, palpitations. EKG reporting atrial fibrillation with controlled ventricular rate, Troponin negative.Echo 04/07/2022- EF 4550 percent, moderate concentric LVH, severe pulmonary hypertension, mild aortic regurgitation, mild aortic stenosis Severe tricuspid regurgitation. Influenza and Odell virus screening negative. Currently awaiting BiPAP, short of breath with conversing, lethargic. IV push diuretics initiated. 07/10/2022 maintained on nebulized bronchodilators, IV steroids with significant clinical improvement. Weaned off of BiPAP with 35% currently maintaining O2 sats in the 90s on 3 L nasal cannula. Afebrile. Labs pending. 07/11/2022: Patient seen and evaluated for her A. fib with RVR and acute diastolic congestive heart failure. Today she feels a bit more fatigued. Hemoglobin was found to be 86.8 today. She is followed cardiology. Rate remained stable, pulse oximetry is proximal 97% on 5 L O2 via nasal cannula. Laboratory studies as previously indicated hemoglobin 6.8. BUN is 33 creatinine 1.5 GFR is 34.2. Stone from the admission 40. Glucose remained stable. She is being followed by cardiology in pulmonology for the need for a noninvasive ventilator/BiPAP Objective - Vital Signs Vital signs: Vital Signs Temp 98.6 F 07/11/22 05:00 Pulse 96 07/11/22 12:00 Resp 16 07/11/22 08:40 BP 131/67 07/11/22 08:25 Pulse Ox 97 07/11/22 08:43 FiO2 35 07/11/22 08:43 Intake & Output 07/10/22 07/11/22 07/11/22 18:59 06:59 18:59 Intake Total 710 Output Total 1600 Balance -1600 710 Weight 149.69 kg Intake: Oral 710 Output: Urine 1600 Other: Voiding Method External Catheter External Catheter External Catheter # Voids 2 - Exam General: Awake, alert and oriented times 3. NAD. Nasal cannula in place. Neck: Supple, unable to evaluate JVD-short neck. Cardiac: Heart irregular in rate and rhythm. No S3. No S4. No clicks, rubs. No murmur. Lungs: Patient has coarse breath sounds with few fine bibasilar crackles somewhat improved from her last exam Abdomen: Obese, No mass. Bowel sounds presnt and normoactive in all 4 quadrants. Extremes: +2 edema, chronic venous changes of lower extremities ,normal pulses Skin: Warm and dry, No rash. - Labs CBC & Chem 7: 07/11/22 05:00 07/11/22 05:00 Labs: Abnormal Lab Results - Last 24 Hours (Table) 07/10/22 07/10/22 07/11/22 Range/Units 13:57 17:18 05:00 RBC 2.38 L (4.10-5.20) X 10*6/uL Hgb 6.8 L* (12.0-15.0) g/dL Hct 23.4 L (37.2-46.3) % MCV 98.3 H (80.0-97.0) fL MCHC 29.1 L (32.0-37.0) g/dL RDW 17.2 H (11.5-14.5) % Lymphocytes # 0.83 L (0.90-5.00) X 10*3/uL Carbon Dioxide (20.0-27.5) mmol/L Anion Gap (10.00-18.00) mmol/L BUN (9.0-27.0) mg/dL Est GFR (CKD-EPI)AfAm (60.0-200.0) Est GFR (CKD-EPI)NonAf (60.0-200.0) BUN/Creatinine Ratio (12.00-20.00) Ratio POC Glucose (mg/dL) 230 H 165 H (70-110) mg/dL 07/11/22 Range/Units 05:00 RBC (4.10-5.20) X 10*6/uL Hgb (12.0-15.0) g/dL Hct (37.2-46.3) % MCV (80.0-97.0) fL MCHC (32.0-37.0) g/dL RDW (11.5-14.5) % Lymphocytes # (0.90-5.00) X 10*3/uL Carbon Dioxide 34.2 H (20.0-27.5) mmol/L Anion Gap 6.80 L (10.00-18.00) mmol/L BUN 33.0 H (9.0-27.0) mg/dL Est GFR (CKD-EPI)AfAm 39.6 L (60.0-200.0) Est GFR (CKD-EPI)NonAf 34.2 L (60.0-200.0) BUN/Creatinine Ratio 22.00 H (12.00-20.00) Ratio POC Glucose (mg/dL) (70-110) mg/dL Assessment and Plan (1) Acute on chronic respiratory failure with hypoxemia Current Visit: Yes Status: Acute Code(s): J96.21 - ACUTE AND CHRONIC RESPIRATORY FAILURE WITH HYPOXIA SNOMED Code(s): 26885465503840971 (2) Persistent atrial fibrillation Current Visit: Yes Status: Acute Code(s): I48.19 - OTHER PERSISTENT ATRIAL FIBRILLATION SNOMED Code(s): 998546926 (3) Obstructive sleep apnea Current Visit: Yes Status: Acute Code(s): G47.33 - OBSTRUCTIVE SLEEP APNEA (ADULT) (PEDIATRIC) SNOMED Code(s): 60803894 (4) Type 2 diabetes mellitus without complications Current Visit: Yes Status: Acute Code(s): E11.9 - TYPE 2 DIABETES MELLITUS WITHOUT COMPLICATIONS SNOMED Code(s): 053481143 (5) Type 2 diabetes mellitus with diabetic mononeuropathy Current Visit: Yes Status: Acute Code(s): E11.41 - TYPE 2 DIABETES MELLITUS WITH DIABETIC MONONEUROPATHY SNOMED Code(s): 09822687 (6) Essential (primary) hypertension Current Visit: Yes Status: Acute Code(s): I10 - ESSENTIAL (PRIMARY) HYPERTENSION SNOMED Code(s): 30006534 (7) Mixed hyperlipidemia Current Visit: Yes Status: Acute Code(s): E78.2 - MIXED HYPERLIPIDEMIA SNOMED Code(s): 432187036 (8) Acquired hypothyroidism Current Visit: Yes Status: Acute Code(s): E03.9 - HYPOTHYROIDISM, UNSPECIFIED SNOMED Code(s): 812421406 (9) Major depressive disorder, recurrent, moderate Current Visit: Yes Status: Acute Code(s): F33.1 - MAJOR DEPRESSIVE DISORDER, RECURRENT, MODERATE SNOMED Code(s): 468134889 (10) CKD (chronic kidney disease) stage 3, GFR 30-59 ml/min Current Visit: Yes Status: Acute Code(s): N18.30 - CHRONIC KIDNEY DISEASE, STAGE 3 UNSPECIFIED SNOMED Code(s): 720405348 (11) Acute on chronic anemia Current Visit: No Status: Acute Code(s): D64.9 - ANEMIA, UNSPECIFIED SNOMED Code(s): 488111046 (12) Acute on chronic diastolic (congestive) heart failure Current Visit: No Status: Acute Code(s): I50.33 - ACUTE ON CHRONIC DIASTOLIC (CONGESTIVE) HEART FAILURE SNOMED Code(s): 572161582 (13) Coronary artery disease with history of coronary revascularization Current Visit: No Status: Acute Code(s): I25.10 - ATHSCL HEART DISEASE OF [place] CORONARY ARTERY W/O ANG PCTRS; Z98.61 - CORONARY ANGIOPLASTY STATUS SNOMED Code(s): 502108600 (14) Morbid obesity Current Visit: Yes Status: Acute Code(s): E66.01 - MORBID (SEVERE) OBESITY DUE TO EXCESS CALORIES SNOMED Code(s): 951100602 Plan: She'll continue naproxen and for anticoagulation, atorvastatin for hyperlipidemia, furosemide for her acute CHF, gabapentin for diabetic neuropathy, insulin for her diabetes, last A1c was 6.9, Levemir 55 units twice a day, Imdur for coronary disease, levothyroxine for thyroidism, Toprol for rate control, mirtazapine for depression, oxybutynin for old AP, We'll type cross and transfuse 1 unit packed red blood cells for her anemia. Repeat labs in ambulance she'll be reevaluated next 24 hours. To continue on BiPAP when sleeping Weight on further recommendations from cardiology and pulmonology.
[2022-07-11 12:59] LABS: Glucose,Whole Blood 154 mg/dL (70-110)
--- NOTE | 2022-07-11 13:11 | P.PN ---
Subjective Progress Note Date: 07/11/22 This a 72-year-old female patient with a known history of chronic hypoxemic and hypercapnic respiratory failure. Chest has a history of coronary artery disease with coronary artery bypass grafting, atrial fibrillation, diabetes mellitus, hyperlipidemia, hypertension, obesity, obstructive sleep apnea, hypothyroidism, diabetic retinopathy and diabetic neuropathy, gout, stage III kidney disease. She had recently been discharged from here in May to [facility] the [facility]. She has since been discharged home. She presented here to the emergency room early this morning with worsening shortness of breath. Chest x-ray is somewhat limited due to her large body habitus. There is moderate cardiomegaly and continued interstitial pulmonary edema. Small bilateral effusions. She is currently in atrial fibrillation with a controlled ventricular rate. White count 6.4. Hemoglobin 7.5. Platelets 184. Sodium 143. Potassium 5.4. Chloride 109. Bicarb 31. BUN 35. Creatinine 1.33. ProBNP 3960. Troponin negative. Odell virus screen negative. Influenza screen negative. She was initially on oxygen at 3 L/m per nasal cannula. She is currently seen in the emergency department in consultation. S he's on BiPAP 12/6 and 35% FiO2. She has lower extremity edema. She is somewhat lethargic. She has basilar crackles. She's been initiated on Lasix 40 mg IV every 12 hours. Anticoagulated with Eliquis. Progress note dated 07/10/2022. This is a 72-year-old female well-known to our service. She has a history of chronic hypoxemic and hypercapnic respiratory failure, primarily secondary to CHF. She was seen by me in the emergency department yesterday, trauma room 2. At that time, she was on BiPAP. She is being admitted to the hospital. She's currently seen today in room 615. No new labs today as yet. Labs July 09 are reviewed. X-rays were reviewed. She's had 6 admissions to this hospital this year already. She remains on BiPAP, at 35%. Vital signs are stable including a temperature of 98, heart rate 93, respiratory rate 19, and blood pressure 120/67. BiPAP settings include 12/6 and 35%. The patient is seen today 07/11/2022 in follow-up on the regular medical floor. She is currently sitting up. Awake and alert in no acute distress. She is on 3 L nasal cannula. She's alternating with BiPAP 12/6 and 35% FiO2. No IV fluids. She is afebrile. She did have a drop in hemoglobin to 6.8. White count 6.4. Platelets 175. Sodium 142. Potassium 5.5. Glucose 154. BUN 33. Creatinine 1.5. One unit of packed red blood cells have been ordered. If she is continued on DuoNeb inhalations. Anticoagulated with Eliquis. Continued on IV diuretics. Currently in a -1.9 L output. Objective - Vital Signs Vital signs: Vital Signs Temp 98.5 F 07/11/22 12:38 Pulse 106 H 07/11/22 12:38 Resp 19 07/11/22 12:38 BP 94/55 07/11/22 12:38 Pulse Ox 96 07/11/22 12:38 FiO2 35 07/11/22 08:43 Intake & Output 07/10/22 07/11/22 07/11/22 18:59 06:59 18:59 Intake Total 710 Output Total 1600 Balance -1600 710 Weight 149.69 kg Intake: Oral 710 Output: Urine 1600 Other: Voiding Method External Catheter External Catheter External Catheter # Voids 2 - Exam GENERAL EXAM: Alert, pleasant 72-year-old female, on 3 L nasal cannula, comfortable in no apparent distress. HEAD: Normocephalic. EYES: Normal reaction of pupils, equal size. NOSE: Clear with pink turbinates. THROAT: No erythema or exudates. NECK: No masses, no JVD. CHEST: No chest wall deformity. LUNGS: Equal air entry with bilateral scattered rhonchi, crackles CVS: S1 and S2 normal with no audible murmur, regular rhythm. ABDOMEN: No hepatosplenomegaly, normal bowel sounds, no guarding or rigidity. SPINE: No scoliosis or deformity SKIN: No rashes or areas of ecchymosis CENTRAL NERVOUS SYSTEM: No focal deficits, tone is normal in all 4 extremities. EXTREMITIES: Changes of chronic venous stasis. There is 1-2+ peripheral edema. No clubbing, no cyanosis. Peripheral pulses are intact. - Labs CBC & Chem 7: 07/11/22 05:00 07/11/22 05:00 Labs: Abnormal Lab Results - Last 24 Hours (Table) 07/10/22 07/10/22 07/11/22 Range/Units 13:57 17:18 05:00 RBC 2.38 L (4.10-5.20) X 10*6/uL Hgb 6.8 L* (12.0-15.0) g/dL Hct 23.4 L (37.2-46.3) % MCV 98.3 H (80.0-97.0) fL MCHC 29.1 L (32.0-37.0) g/dL RDW 17.2 H (11.5-14.5) % Lymphocytes # 0.83 L (0.90-5.00) X 10*3/uL Carbon Dioxide (20.0-27.5) mmol/L Anion Gap (10.00-18.00) mmol/L BUN (9.0-27.0) mg/dL Est GFR (CKD-EPI)AfAm (60.0-200.0) Est GFR (CKD-EPI)NonAf (60.0-200.0) BUN/Creatinine Ratio (12.00-20.00) Ratio POC Glucose (mg/dL) 230 H 165 H (70-110) mg/dL 07/11/22 07/11/22 Range/Units 05:00 12:36 RBC (4.10-5.20) X 10*6/uL Hgb (12.0-15.0) g/dL Hct (37.2-46.3) % MCV (80.0-97.0) fL MCHC (32.0-37.0) g/dL RDW (11.5-14.5) % Lymphocytes # (0.90-5.00) X 10*3/uL Carbon Dioxide 34.2 H (20.0-27.5) mmol/L Anion Gap 6.80 L (10.00-18.00) mmol/L BUN 33.0 H (9.0-27.0) mg/dL Est GFR (CKD-EPI)AfAm 39.6 L (60.0-200.0) Est GFR (CKD-EPI)NonAf 34.2 L (60.0-200.0) BUN/Creatinine Ratio 22.00 H (12.00-20.00) Ratio POC Glucose (mg/dL) 154 H (70-110) mg/dL Assessment and Plan Assessment: Acute on chronic hypoxic respiratory failure secondary to an acute exacerbation of diastolic congestive heart failure Acute on chronic hypercapnic respiratory failure secondary to above Morbid obesity with a BMI of 60 kg per metered square Obstructive sleep apnea Chronic atrial fibrillation anticoagulated with Eliquis Hyperlipidemia Hypertension Hypothyroidism Coronary artery disease with previous coronary artery bypass grafting 2 in 1996 History of depression Chronic back pain History of gout Chronic stage III kidney disease Diabetes mellitus Diabetic neuropathy Nonsmoker Chronic anemia with a drop in hemoglobin to 6.8, 1 unit of packed red blood cells at the [facility]. Poor overall functional performance based on the above-mentioned multiple comorbidities Plan: The patient was seen and evaluated Labs and medications reviewed Continue IV diuretics, bronchodilators Continue BiPAP support throughout the night and during the day while napping Receiving 1 unit of packed red blood cells We will continue to follow I have personally seen and examined the patient, performed the documentation and the assessment and plan as written. Number of minutes spent on the visit: 10.
[2022-07-11 17:24] LABS: Glucose,Whole Blood 156 mg/dL (70-110)
[2022-07-11 20:59] LABS: Glucose,Whole Blood 200 mg/dL (70-110)
[2022-07-11] MEDS: ATORVASTATIN 40 MG TAB PO SCH (21:30)
[2022-07-11] MEDS: MIRTAZAPINE 15 MG TAB PO SCH (21:30)
[2022-07-12] MEDS: LEVOTHYROXINE 50 MCG TAB PO SCH (05:42)
[2022-07-12 06:19] LABS: Anisocytosis Slight; Basophils % (A) 0 %; Eosinophils # (A) 0.2 k/uL (0-0.7); Eosinophils % (A) 3 %; HCT 23.9 % (34.0-46.0); HGB 7.3 gm/dL (11.4-16.0); Hypochromasia Marked; Lymphocytes # (A) 0.8 k/uL (1.0-4.8); Lymphocytes % (A) 12 %; MCH 28.7 pg (25.0-35.0); MCHC 30.5 g/dL (31.0-37.0); MCV 93.9 fL (80.0-100.0); Mean Platelet Volume 8.7; Monocytes # (A) 0.4 k/uL (0-1.0); Monocytes % (A) 6 %; Neutrophils # (A) 4.8 k/uL (1.3-7.7); Neutrophils % (A) 76 %; Platelet Count 165 k/uL (150-450); RBC 2.55 m/uL (3.80-5.40); RDW 16.6 % (11.5-15.5); WBC 6.4 k/uL (3.8-10.6)
[2022-07-12 07:17] LABS: Glucose,Whole Blood 91 mg/dL (70-110)
--- NOTE | 2022-07-12 07:25 | XR ---
EXAMINATION TYPE: XR chest 2V DATE OF EXAM: 07/12/2022 COMPARISON: 07/09/2022 HISTORY: Shortness of breath TECHNIQUE: Frontal and lateral views of the chest are obtained. FINDINGS: Scattered senescent parenchymal changes noted. Hyperinflation compatible with COPD. Continued cardiomegaly with pulmonary venous congestion and scattered interstitial infiltrates compat ible with improving CHF. Mediastinal structures are stable and grossly unremarkable. No evidence for hilar prominence. Degenerative changes dorsal spine. IMPRESSION: 1. Continued cardiomegaly with pulmonary venous congestion and scattered interstitial infiltrates com patible with improving CHF.
[2022-07-12] MEDS: IPRATROPIUM-ALBUTEROL 3 ML NEB INHALATION SCH ×4 (07:58→19:55)
[2022-07-12] MEDS: APIXABAN 5 MG TAB PO SCH ×2 (09:33→20:13)
[2022-07-12] MEDS: FUROSEMIDE 10 MG/ML 4 ML VIAL IV SCH (09:33)
[2022-07-12] MEDS: METOPROLOL TARTRATE 50 MG TAB PO SCH (09:33)
[2022-07-12] MEDS: ISOSORBIDE MONONITRATE ER 30 MG TAB.ER.24H PO SCH (09:33)
[2022-07-12] MEDS: OXYBUTYNIN CHLORIDE 5 MG TAB PO SCH ×2 (09:33→20:13)
[2022-07-12] MEDS: GABAPENTIN 300 MG CAP PO SCH ×2 (09:33→20:13)
[2022-07-12] MEDS: PANTOPRAZOLE 40 MG TABLET PO SCH (09:33)
[2022-07-12] MEDS: POTASSIUM CHLORIDE ER 10 MEQ TAB.ER.PRT PO SCH (09:33)
[2022-07-12] MEDS: INSULIN ASPART (NovoLOG) 100 UNIT/ML VIAL SQ SCH ×3 (09:34→18:19)
[2022-07-12] MEDS: INSULIN DETEMIR (LEVEMIR) 100 UNIT/ML SYR SQ SCH ×2 (09:34→20:37)
--- NOTE | 2022-07-12 09:42 | P.PN ---
Subjective Progress Note Date: 07/12/22 Principal diagnosis: Heart failure The patient is a pleasant 72-year-old female patient with a past medical history significant for CAD with prior stenting as well as heart failure with preserved ejection fraction and also permanent atrial fibrillation and morbid obesity and hypertension and dyslipidemia who was admitted to the hospital with congestive heart failure exacerbation with evidence of right and left heart failure. July [id number] The patient was seen and evaluated this morning. She remains short of breath. She continues to have bilateral lower except his edema. She has been diuresing very well on the current dose of Lasix IV which is 40 mg daily. She remains in atrial fibrillation was overall controlled heart rate an average heart rate about 100 beats per minutes. From a cardiac vascular standpoint of view, I would continue the current medical regimen including the current dose of Lasix and continue monitor the kidney function and electrolytes and follow-up with the blood work this morning. Continue oral anticoagulation for the atrial fibril lation July [id number] The patient was seen and evaluated this morning. She remained short of breath and she continues to have bilateral lower extremities edema as well. She has been diuresing well on the current dose of Lasix IV. The hemoglobin is marginal and she is in process of receiving one unit of packed RBC. From the cardiac standpoint of view, would continue the current medical regimen and continue IV Lasix for at least additional 24 hours. Blood transfusion and hemoglobin in the morning to be checked. Objective - Vital Signs Vital signs: Vital Signs Temp 98.2 F 07/12/22 05:00 Pulse 92 07/12/22 08:08 Resp 20 07/12/22 05:00 BP 114/52 07/12/22 05:09 Pulse Ox 100 07/12/22 07:58 FiO2 35 07/12/22 02:50 Intake & Output 07/11/22 07/12/22 07/12/22 18:59 06:59 18:59 Intake Total 120 1070 Output Total 1000 700 Balance -880 370 Weight 149.7 kg Intake: Oral 120 1070 Output: Urine 1000 700 Other: Voiding Method External Catheter External Catheter # Bowel Movements 1 - Constitutional General appearance: Present: no acute distress - Respiratory Respiratory: bilateral: diminished - Cardiovascular Rhythm: irregularly irregular - Labs CBC & Chem 7: 07/12/22 05:42 07/11/22 05:00 Labs: Abnormal Lab Results - Last 24 Hours (Table) 07/11/22 07/11/22 07/11/22 Range/Units 05:00 10:37 12:36 RBC (3.80-5.40) m/uL Hgb (11.4-16.0) gm/dL Hct (34.0-46.0) % MCHC (31.0-37.0) g/dL RDW (11.5-15.5) % Lymphocytes # (1.0-4.8) k/uL POC Glucose (mg/dL) 154 H (70-110) mg/dL TSH 9.090 H (0.350-5.500) uIU/mL Crossmatch See Detail 07/11/22 07/11/22 07/11/22 Range/Units 13:57 17:22 20:57 RBC (3.80-5.40) m/uL Hgb (11.4-16.0) gm/dL Hct (34.0-46.0) % MCHC (31.0-37.0) g/dL RDW (11.5-15.5) % Lymphocytes # (1.0-4.8) k/uL POC Glucose (mg/dL) 156 H 200 H (70-110) mg/dL TSH (0.350-5.500) uIU/mL Crossmatch See Detail 07/12/22 Range/Units 05:42 RBC 2.55 L (3.80-5.40) m/uL Hgb 7.3 L (11.4-16.0) gm/dL Hct 23.9 L (34.0-46.0) % MCHC 30.5 L (31.0-37.0) g/dL RDW 16.6 H (11.5-15.5) % Lymphocytes # 0.8 L (1.0-4.8) k/uL POC Glucose (mg/dL) (70-110) mg/dL TSH (0.350-5.500) uIU/mL Crossmatch Assessment and Plan Assessment: Assessment Heart failure exacerbation secondary to heart failure with preserved ejection fraction Permanent atrial fibrillation with controlled heart rate Morbid obesity Hypertension Dyslipidemia Multiple comorbid conditions Plan Continue the IV Lasix for additional 24 hours Continue monitor the kidney function and electrolytes. Follow-up with a blood work this morning Continue monitor the hemoglobin
[2022-07-12 10:07] LABS: African American GFR (CKD) 37.8 (60.0-200.0); Anion Gap 7.6 mmol/L (10.00-18.00); BUN/Creat Ratio 19.87 Ratio (12.00-20.00); Carbon Dioxide 34.3 mmol/L (20.0-27.5); Non-African American GFR(CKD) 32.6 (60.0-200.0); Potassium 4.8 mmol/L (3.5-5.5)
[2022-07-12] MEDS ORDERED: FUROSEMIDE 10 MG/ML 2 ML VIAL IV ONE (11:10)
[2022-07-12 11:46] LABS: Glucose,Whole Blood 171 mg/dL (70-110)
--- NOTE | 2022-07-12 12:31 | P.PN ---
Subjective 07/09/22:This is a 72-year-old female recently discharged from [facility] subacute rehab with known chronic hypoxic respiratory failure, multifactorial, wears 3L nasal cannula O2 at home. Patient was discharged home and had issues obtaining nebulizer/received a couple days prior to admission. Reports shortness of breath 3 days, presented to the ER. Chest x-ray limited secondary to large body habitus, reporting cardiomegaly, continued interstitial pulmonary edema, small bilateral effusions. Telemetry atrial fibrillation with controlled ventr icular rate. Afebrile, normal WBC, hemoglobin 7.5, platelets 184. Atelectasis within normal limits, bicarb 31, BUN 35, creatinine 1.33. ProBNP 3960. Denies chest pain, palpitations. EKG reporting atrial fibrillation with controlled ventricular rate, Troponin negative.Echo 04/07/2022- EF 4550 percent, moderate concentric LVH, severe pulmonary hypertension, mild aortic regurgitation, mild aortic stenosis Severe tricuspid regurgitation. Influenza and Odell virus screening negative. Currently awaiting BiPAP, short of breath with conversing, lethargic. IV push diuretics initiated. 07/10/2022 maintained on nebulized bronchodilators, IV steroids with significant clinical improvement. Weaned off of BiPAP with 35% currently maintaining O2 sats in the 90s on 3 L nasal cannula. Afebrile. Labs pending. 07/11/2022: Patient seen and evaluated for her A. fib with RVR and acute diastolic congestive heart failure. Today she feels a bit more fatigued. Hemoglobin was found to be 86.8 today. She is followed cardiology. Rate remained stable, pulse oximetry is proximal 97% on 5 L O2 via nasal cannula. Laboratory studies as previously indicated hemoglobin 6.8. BUN is 33 creatinine 1.5 GFR is 34.2. Stone from the admission 40. Glucose remained stable. She is being followed by cardiology in pulmonology for the need for a noninvasive ventilator/BiPAP 07/12/2022: She is being reevaluated for diastolic congestive heart failure. She continues on Lasix IV. Cardiology is recommending she continue this. Her hemoglobin is slightly improved. She is currently receiving her one unit of packed red blood cells this time. Pulse oximetry is 100% on 3 L of O2 and Lasix, titrate that down slightly. She is afebrile, heart rate is borderline tachycardic. Laboratory studies show that hemoglobin is now 7.3. Creatinine is increased to 1.6 and GFR is down to 32.6. Her TSH is 10.8. She remains anticoagulated with Elequis. Amryellen on atorvastatin IV furosemide, Imdur, metoprolol for her A. fib and CHF. She remains on Synthroid 50 g daily for her hypothyroidism. Oxybutynin for OAB, pantoprazole for GI prophylaxis. She has dual nebs ordered for updrafts, gabapentin for diabetic neuropathy, NovoLog and Levemir for her diabetes. Objective - Vital Signs Vital signs: Vital Signs Temp 97.8 F 07/12/22 11:51 Pulse 112 H 07/12/22 11:51 Resp 19 07/12/22 11:51 BP 143/66 07/12/22 11:51 Pulse Ox 100 07/12/22 11:56 FiO2 35 07/12/22 11:56 Intake & Output 07/11/22 07/12/22 07/12/22 18:59 06:59 18:59 Intake Total 120 1070 0 Output Total 1000 700 Balance -880 370 0 Weight 149.7 kg Intake: Oral 120 1070 Blood Product 0 Rc Irr As1 Unit 0 [id number] Output: Urine 1000 700 Other: Voiding Method External Catheter External Catheter External Catheter # Bowel Movements 1 - Exam General: Awake, alert and oriented times 3. NAD. Nasal cannula in place. Neck: Supple, unable to evaluate JVD-short neck. Cardiac: Heart irregular in rate and rhythm. No S3. No S4. No clicks, rubs. No murmur. Lungs: Patient has coarse breath sounds with few fine bibasilar crackles somewhat improved from her last exam Abdomen: Obese, No mass. Bowel sounds presnt and normoactive in all 4 quadrants. Extremes: +2 edema, chronic venous changes of lower extremities ,normal pulses Skin: Warm and dry, No rash. - Labs CBC & Chem 7: 07/12/22 05:42 07/12/22 05:42 Labs: Abnormal Lab Results - Last 24 Hours (Table) 07/11/22 07/11/22 07/11/22 Range/Units 05:00 10:37 12:36 RBC (3.80-5.40) m/uL Hgb (11.4-16.0) gm/dL Hct (34.0-46.0) % MCHC (31.0-37.0) g/dL RDW (11.5-15.5) % Lymphocytes # (1.0-4.8) k/uL Carbon Dioxide (20.0-27.5) mmol/L Anion Gap (10.00-18.00) mmol/L BUN (9.0-27.0) mg/dL Creatinine (0.6-1.5) mg/dL Est GFR (CKD-EPI)AfAm (60.0-200.0) Est GFR (CKD-EPI)NonAf (60.0-200.0) POC Glucose (mg/dL) 154 H (70-110) mg/dL TSH 9.090 H (0.350-5.500) uIU/mL Crossmatch See Detail 07/11/22 07/11/22 07/11/22 Range/Units 13:57 17:22 20:57 RBC (3.80-5.40) m/uL Hgb (11.4-16.0) gm/dL Hct (34.0-46.0) % MCHC (31.0-37.0) g/dL RDW (11.5-15.5) % Lymphocytes # (1.0-4.8) k/uL Carbon Dioxide (20.0-27.5) mmol/L Anion Gap (10.00-18.00) mmol/L BUN (9.0-27.0) mg/dL Creatinine (0.6-1.5) mg/dL Est GFR (CKD-EPI)AfAm (60.0-200.0) Est GFR (CKD-EPI)NonAf (60.0-200.0) POC Glucose (mg/dL) 156 H 200 H (70-110) mg/dL TSH (0.350-5.500) uIU/mL Crossmatch See Detail 07/12/22 07/12/22 07/12/22 Range/Units 05:42 05:42 11:44 RBC 2.55 L (3.80-5.40) m/uL Hgb 7.3 L (11.4-16.0) gm/dL Hct 23.9 L (34.0-46.0) % MCHC 30.5 L (31.0-37.0) g/dL RDW 16.6 H (11.5-15.5) % Lymphocytes # 0.8 L (1.0-4.8) k/uL Carbon Dioxide 34.3 H (20.0-27.5) mmol/L Anion Gap 7.60 L (10.00-18.00) mmol/L BUN 31.0 H (9.0-27.0) mg/dL Creatinine 1.6 H (0.6-1.5) mg/dL Est GFR (CKD-EPI)AfAm 37.8 L (60.0-200.0) Est GFR (CKD-EPI)NonAf 32.6 L (60.0-200.0) POC Glucose (mg/dL) 171 H (70-110) mg/dL TSH 10.800 H (0.350-5.500) uIU/mL Crossmatch Assessment and Plan (1) Acute on chronic respiratory failure with hypoxemia Current Visit: Yes Status: Acute Code(s): J96.21 - ACUTE AND CHRONIC RESPIRATORY FAILURE WITH HYPOXIA SNOMED Code(s): 85623484939828573 (2) Persistent atrial fibrillation Current Visit: Yes Status: Acute Code(s): I48.19 - OTHER PERSISTENT ATRIAL FIBRILLATION SNOMED Code(s): 192642476 (3) Obstructive sleep apnea Current Visit: Yes Status: Acute Code(s): G47.33 - OBSTRUCTIVE SLEEP APNEA (ADULT) (PEDIATRIC) SNOMED Code(s): 28459617 (4) Type 2 diabetes mellitus without complications Current Visit: Yes Status: Acute Code(s): E11.9 - TYPE 2 DIABETES MELLITUS WITHOUT COMPLICATIONS SNOMED Code(s): 396003110 (5) Type 2 diabetes mellitus with diabetic mononeuropathy Current Visit: Yes Status: Acute Code(s): E11.41 - TYPE 2 DIABETES MELLITUS WITH DIABETIC MONONEUROPATHY SNOMED Code(s): 52286467 (6) Essential (primary) hypertension Current Visit: Yes Status: Acute Code(s): I10 - ESSENTIAL (PRIMARY) HYPERTENSION SNOMED Code(s): 53155253 (7) Mixed hyperlipidemia Current Visit: Yes Status: Acute Code(s): E78.2 - MIXED HYPERLIPIDEMIA SNOMED Code(s): 281820097 (8) Acquired hypothyroidism Current Visit: Yes Status: Acute Code(s): E03.9 - HYPOTHYROIDISM, UNSPECIFIED SNOMED Code(s): 233022114 (9) Major depressive disorder, recurrent, moderate Current Visit: Yes Status: Acute Code(s): F33.1 - MAJOR DEPRESSIVE DISORDER, RECURRENT, MODERATE SNOMED Code(s): 076651473 (10) CKD (chronic kidney disease) stage 3, GFR 30-59 ml/min Current Visit: Yes Status: Acute Code(s): N18.30 - CHRONIC KIDNEY DISEASE, STAGE 3 UNSPECIFIED SNOMED Code(s): 931108412 (11) Acute on chronic anemia Current Visit: No Status: Acute Code(s): D64.9 - ANEMIA, UNSPECIFIED SNOMED Code(s): 748959391 (12) Acute on chronic diastolic (congestive) heart failure Current Visit: No Status: Acute Code(s): I50.33 - ACUTE ON CHRONIC DIASTOLIC (CONGESTIVE) HEART FAILURE SNOMED Code(s): 315174805 (13) Coronary artery disease with history of coronary revascularization Current Visit: No Status: Acute Code(s): I25.10 - ATHSCL HEART DISEASE OF [place] CORONARY ARTERY W/O ANG PCTRS; Z98.61 - CORONARY ANGIOPLASTY STATUS SNOMED Code(s): 549773218 (14) Morbid obesity Current Visit: Yes Status: Acute Code(s): E66.01 - MORBID (SEVERE) OBESITY DUE TO EXCESS CALORIES SNOMED Code(s): 497541359 Plan: She'll continue Elequis for anticoagulation, atorvastatin for hyperlipidemia, fu rosemide for her acute CHF, gabapentin for diabetic neuropathy, insulin for her diabetes, last A1c was 6.9, Levemir 55 units twice a day, Imdur for coronary disease, levothyroxine for thyroidism which will be increased today to 75 g daily, Toprol for rate control, mirtazapine for depression, oxybutynin for OAB She is status post 1 unit packed red blood cells no CVAT IV Lasix 20 mg after this. Repeat labs in ambulance she'll be reevaluated next 24 hours. To continue on BiPAP when sleeping wait on further recommendations from cardiology and pulmonology, which include another 24 hours IV Lasix. We'll consult nephrology for further recommendations regarding antibiotic
--- NOTE | 2022-07-12 13:47 | P.PN ---
Subjective Progress Note Date: 07/12/22 Principal diagnosis: Shortness of breath/CHF. This a 72-year-old female patient with a known history of chronic hypoxemic and hypercapnic respiratory failure. Chest has a history of coronary artery disease with coronary artery bypass grafting, atrial fibrillation, diabetes mellitus, hyperlipidemia, hypertension, obesity, obstructive sleep apnea, hypothyroidism, diabetic retinopathy and diabetic neuropathy, gout, stage III kidney disease. She had recently been discharged from here in May to [facility] on the [place]. She has since been discharged home. She presented here to the emergency room early this morning with worsening shortness of breath. Chest x-ray is somewhat limited due to her large body habitus. There is moderate cardiomegaly and continued interstitial pulmonary edema. Small bilateral effusions. She is currently in atrial fibrillation with a controlled ventricular rate. White count 6.4. Hemoglobin 7.5. Platelets 184. Sodium 143. Potassium 5.4. Chloride 109. Bicarb 31. BUN 35. Creatinine 1.33. ProBNP 3960. Troponin negative. Odell virus screen negative. Influenza screen negative. She was initially on oxygen at 3 L/m per nasal cannula. She is currently seen in the emergency department in consultation. She's on BiPAP 12/6 and 35% FiO2. She has lower extremity edema. She is somewhat lethargic. She has basilar crackles. She's been initiated on Lasix 40 mg IV every 12 hours. Anticoagulated with Eliquis. Progress note dated 07/10/2022. This is a 72-year-old female well-known to our service. She has a history of chronic hypoxemic and hypercapnic respiratory failure, primarily secondary to CHF. She was seen by me in the emergency department yesterday, trauma room 2. At that time, she was on BiPAP. She is being admitted to the hospital. She's currently seen today in room 615. No new labs today as yet. Labs July 09 are reviewed. X-rays were reviewed. She's had 6 admissions to this hospital this year already. She remains on BiPAP, at 35%. Vital signs are stable including a temperature of 98, heart rate 93, respiratory rate 19, and blood pressure 120/67. BiPAP settings include 12/6 and 35%. Progress note dated 07/12/2022. The patient is seen today in room 521. She is currently on 3 L of oxygen. She does use BiPAP intermittently, and mostly throughout the night, with settings of 12/6 and 35%. She's not on any IV fluids. A repeat chest x-ray still does show fluid overload/CHF. White count 6.4, hemoglobin 7.3, hematocrit 24, and platelet count 265,000. Sodium 142, potassium 4.8, chlorides 101, CO2 34, BUN 31, creatinine 1.6. TSH is 10.8. Objective - Vital Signs Vital signs: Vital Signs Temp 98.0 F 07/12/22 13:13 Pulse 102 H 07/12/22 13:13 Resp 20 07/12/22 13:13 BP 148/76 07/12/22 13:13 Pulse Ox 99 07/12/22 13:16 FiO2 35 07/12/22 11:56 Intake & Output 07/11/22 07/12/22 07/12/22 18:59 06:59 18:59 Intake Total 120 1070 310 Output Total 1000 700 Balance -880 370 310 Weight 149.7 kg Intake: Oral 120 1070 Blood Product 310 Rc Irr As1 Unit 310 [id number] Output: Urine 1000 700 Other: Voiding Method External Catheter External Catheter External Catheter # Bowel Movements 1 - Exam No acute distress, The patient is much more awake today. Currently on 3 L. HEENT examination is grossly unremarkable. Neck supple. Full range of motion. No adenopathy thyromegaly or neck vein distention. Cardiovascular examination reveals regular rhythm rate. S1-S2 normal. No S3 or S4. No discernible murmur noted. Heart sounds are distant. Heart rate 90 bpm. Lungs reveal scattered bilateral rhonchi and crackles. Breath sounds equal. No wheezes. Saturations are 98 %. Abdomen obese. No masses. Extremities reveal chronic edema, without cyanosis or clubbing. Skin reveals multiple areas of ecchymoses. Chronic venous changes to the lower extremities. Neurologic examination is brief but nonfocal. Patient is much more awake today than yesterday. - Labs CBC & Chem 7: 07/12/22 05:42 07/12/22 05:42 Labs: Abnormal Lab Results - Last 24 Hours (Table) 07/11/22 07/11/22 07/11/22 Range/Units 05:00 10:37 13:57 RBC (3.80-5.40) m/uL Hgb (11.4-16.0) gm/dL Hct (34.0-46.0) % MCHC (31.0-37.0) g/dL RDW (11.5-15.5) % Lymphocytes # (1.0-4.8) k/uL Carbon Dioxide (20.0-27.5) mmol/L Anion Gap (10.00-18.00) mmol/L BUN (9.0-27.0) mg/dL Creatinine (0.6-1.5) mg/dL Est GFR (CKD-EPI)AfAm (60.0-200.0) Est GFR (CKD-EPI)NonAf (60.0-200.0) POC Glucose (mg/dL) (70-110) mg/dL TSH 9.090 H (0.350-5.500) uIU/mL Crossmatch See Detail See Detail 07/11/22 07/11/22 07/12/22 Range/Units 17:22 20:57 05:42 RBC 2.55 L (3.80-5.40) m/uL Hgb 7.3 L (11.4-16.0) gm/dL Hct 23.9 L (34.0-46.0) % MCHC 30.5 L (31.0-37.0) g/dL RDW 16.6 H (11.5-15.5) % Lymphocytes # 0.8 L (1.0-4.8) k/uL Carbon Dioxide (20.0-27.5) mmol/L Anion Gap (10.00-18.00) mmol/L BUN (9.0-27.0) mg/dL Creatinine (0.6-1.5) mg/dL Est GFR (CKD-EPI)AfAm (60.0-200.0) Est GFR (CKD-EPI)NonAf (60.0-200.0) POC Glucose (mg/dL) 156 H 200 H (70-110) mg/dL TSH (0.350-5.500) uIU/mL Crossmatch 07/12/22 07/12/22 Range/Units 05:42 11:44 RBC (3.80-5.40) m/uL Hgb (11.4-16.0) gm/dL Hct (34.0-46.0) % MCHC (31.0-37.0) g/dL RDW (11.5-15.5) % Lymphocytes # (1.0-4.8) k/uL Carbon Dioxide 34.3 H (20.0-27.5) mmol/L Anion Gap 7.60 L (10.00-18.00) mmol/L BUN 31.0 H (9.0-27.0) mg/dL Creatinine 1.6 H (0.6-1.5) mg/dL Est GFR (CKD-EPI)AfAm 37.8 L (60.0-200.0) Est GFR (CKD-EPI)NonAf 32.6 L (60.0-200.0) POC Glucose (mg/dL) 171 H (70-110) mg/dL TSH 10.800 H (0.350-5.500) uIU/mL Crossmatch Assessment and Plan Assessment: Acute on chronic hypoxic respiratory failure secondary to an acute exacerbation of diastolic congestive heart failure. Acute on chronic hypercapnic respiratory failure. Morbid obesity with a BMI of 60 kg per metered square. Obstructive sleep apnea. Chronic atrial fibrillation. Hyperlipidemia. Hypertension. Hypothyroidism, not well controlled. Coronary artery disease with previous coronary artery bypass grafting 2 in 1996. History of depression. Chronic back pain. History of gout. Chronic stage III kidney disease. Diabetes mellitus with diabetic neuropathy. Poor overall functional performance based on the above-mentioned multiple comorbidities. Plan: Plan dated 07/10/2022. We will continue to follow and make recommendations along the way. The patient has had 6 admissions this year already, with similar episodes of acute on chronic hypoxemic and hypercapnic respiratory failure secondary to CHF. Labs, x-rays, and medications are reviewed. Prognosis is poor. We will continue to follow make recommendations. Plan dated 07/12/2022. The patient should be started on Synthroid 100 g a day. I will do that today. The patient otherwise is doing a bit better. The chest x-ray still consistent with fluid overload. She is on 3 L. She's been using the BiPAP primarily nighttime, but sometimes during the day. We will continue to follow make recommendations along the way. Prognosis is guarded. Time with Patient: Less than 30
[2022-07-12 17:23] LABS: Glucose,Whole Blood 228 mg/dL (70-110)
[2022-07-12] MEDS: MIRTAZAPINE 15 MG TAB PO SCH (20:13)
[2022-07-12] MEDS: ATORVASTATIN 40 MG TAB PO SCH (20:13)
[2022-07-12 20:17] LABS: Glucose,Whole Blood 201 mg/dL (70-110)
[2022-07-13] MEDS: LEVOTHYROXINE 100 MCG TAB PO SCH (05:38)
[2022-07-13] MEDS ORDERED: LEVOTHYROXINE 75 MCG TAB PO SCH (06:30)
[2022-07-13 07:14] LABS: Glucose,Whole Blood 124 mg/dL (70-110)
[2022-07-13] MEDS: IPRATROPIUM-ALBUTEROL 3 ML NEB INHALATION SCH ×4 (07:15→18:55)
[2022-07-13] MEDS: FUROSEMIDE 10 MG/ML 4 ML VIAL IV SCH (08:46)
[2022-07-13] MEDS: METOPROLOL TARTRATE 50 MG TAB PO SCH (08:47)
[2022-07-13] MEDS: APIXABAN 5 MG TAB PO SCH ×2 (08:47→20:50)
[2022-07-13] MEDS: INSULIN ASPART (NovoLOG) 100 UNIT/ML VIAL SQ SCH ×3 (08:47→17:43)
[2022-07-13] MEDS: INSULIN DETEMIR (LEVEMIR) 100 UNIT/ML SYR SQ SCH ×2 (08:47→20:50)
[2022-07-13] MEDS: OXYBUTYNIN CHLORIDE 5 MG TAB PO SCH ×2 (08:47→20:50)
[2022-07-13] MEDS: GABAPENTIN 300 MG CAP PO SCH ×2 (08:47→20:50)
[2022-07-13] MEDS: ISOSORBIDE MONONITRATE ER 30 MG TAB.ER.24H PO SCH (08:47)
[2022-07-13] MEDS: POTASSIUM CHLORIDE ER 10 MEQ TAB.ER.PRT PO SCH (08:48)
[2022-07-13] MEDS: PANTOPRAZOLE 40 MG TABLET PO SCH (08:50)
[2022-07-13 08:58] LABS: African American GFR (CKD) 42.4 (60.0-200.0); Anion Gap 7.8 mmol/L (10.00-18.00); BUN/Creat Ratio 20.99 Ratio (12.00-20.00); Blood Urea Nitrogen 29.8 mg/dL (9.0-27.0); Carbon Dioxide 37.1 mmol/L (20.0-27.5); Non-African American GFR(CKD) 36.6 (60.0-200.0)
[2022-07-13 09:28] LABS: Basophils # (A) 0.02 X 10*3/uL (0.00-0.10); Basophils % (A) 0.3 %; Eosinophils # (A) 0.19 X 10*3/uL (0.04-0.35); Eosinophils % (A) 2.9 %; HCT 25.3 % (37.2-46.3); HGB 7.3 g/dL (12.0-15.0); Immature Grans, Automated 0.5 %; Lymphocytes # (A) 0.62 X 10*3/uL (0.90-5.00); Lymphocytes % (A) 9.6 %; MCHC 28.9 g/dL (32.0-37.0); MCV 96.9 fL (80.0-97.0); Mean Platelet Volume 10.6 fL (9.5-12.2); Monocytes % (A) 9.3 %; NRBC Per 100 WBC 0 /100 WBCS (0.0-0.0); Neutrophils # (A) 5.02 X 10*3/uL (1.80-7.70); Neutrophils % (A) 77.4 %; Platelet Count 150 X 10*3/uL (140-440); RBC 2.61 X 10*6/uL (4.10-5.20); RDW 16.5 % (11.5-14.5); WBC 6.48 X 10*3/uL (4.50-10.00)
--- NOTE | 2022-07-13 09:30 | P.PN ---
Subjective Progress Note Date: 07/13/22 History of present illness: This is a 72-year-old female patient of Dr. Weller with a past medical history significant for permanent atrial fibrillationon eliquis, coronary artery disease with prior stenting, chronic diastolic heart failure, aortic stenosis, hypertension and dyslipidemia. We are consulted for congestive heart failure. The patient presented yesterday due to worsening shortness of breath and going on for the last few days. She is seen today in the emergency center waiting for a bed on the observation unit. She has been started on IV Lasix 40 mg every 12 hours and home cardiac medications been resumed. Patient states that her breathing is better at this time but note the patient is on a BiPAP FiO2 of 30 with pulse ox 100%. Vital signs are stable. Recent hospitalization with yves cruz on 05/28/2022 due to acute GI bleed requiring transfusion of 3 units of packed RBCs and EGD finding nonbleeding antral ulceration as well as colonoscopy was suspected diverticular bleeding. Anticoagulation was resumed following procedures. EKG atrial fibrillation with controlled rate Hemoglobin is 7.2, potassium 5.4, BUN 35 creatinine 1.33. Troponin negative 1. ProBNP 3960. Coronavirus PCR not detected. Influenza A and influenza B not detected Chest x-ray is limited due to body habitus. Moderate cardiomegaly and continued interstitial pulmonary edema. New Small bilateral pleural effusions on the lateral view. Echo 04/07/2022- EF 4550 percent, moderate concentric LVH, severe pulmonary hypertension, mild aortic regurgitation, mild aortic stenosis, mean gradient of 14 mmHg. Severe tricuspid regurgitation RVSP 61mmHG. July [id number] The patient was seen and evaluated this morning. She remains short of breath. She continues to have bilateral lower except his edema. She has been diuresing very well on the current dose of Lasix IV which is 40 mg daily. She remains in atrial fibrillation was overall controlled heart rate an average heart rate about 100 beats per minutes. From a cardiac vascular standpoint of view, I would continue the current medical regimen including the current dose of Lasix and continue monitor the kidney function and electrolytes and follow-up with the blood work this morning. Continue oral anticoagulation for the atrial fibrillation July [id number] The patient was seen and evaluated this morning. She remained short of breath and she continues to have bilateral lower extremities edema as well. She has been diuresing well on the current dose of Lasix IV. The hemoglobin is marginal and she is in process of receiving one unit of packed RBC. From the cardiac standpoint of view, would continue the current medical regimen and continue IV Lasix for at least additional 24 hours. Blood transfusion and hemoglobin in the morning to be checked. 07/13 Patient is seen and examined. She denies any new concerns. She has been continued on IV Lasix. quality assurance monitor chassis is atrial fibrillation controlled rate. Repeat blood work reveals BUN of 29 creatinine 1.4, CO2 37. Repeat CBC is pending at the time of this dictation. Patient was transfused 1 unit of packed RBCs yesterday. Physical examination: Gen: This is a super morbid obese 72-year-old female. She is resting in bed and appears to be comfortable VS: Reviewed HEENT: Head is atraumatic, normocephalic. Sclerae is anicteric. NECK: Supple. No JVD. No lymphadenopathy. No thyromegaly. LUNGS: Bilateral decreased. No intercostal retractions. HEART:Irregular rate and rhythm. No murmur. ABDOMEN: Soft. Bowel sounds are present. No masses. No tenderness. EXTREMITIES: 1+ pedal edema. No calf tenderness. NEUROLOGICAL: Patient is awake, alert and oriented x3. ASSESSMENT Acute on chronic diastolic heart failure Permanent atrial fibrillation, on Eliquis Recent workup for GI bleed and anemia Coronary artery disease s/p prior stenting Hypertension Dyslipidemia Mild aortic stenosis Severe pulmonary hypertension Severe tricuspid regurgitation PLAN Continue IV Lasix 40 mg daily for another 24 hours Monitor I&O, daily weights, electrolytes and renal function Patient is continued on eliquis, atorvastatin, Torres, Lopressor Patient will follow up with Dr. NANCY Weller in the office following discharge. Nurse Practitioner note has been reviewed, I agree with a documented findings and plan of care. Patient was seen and examined. Objective - Vital Signs Vital signs: Vital Signs Temp 99.5 F 07/13/22 04:04 Pulse 84 07/13/22 07:27 Resp 20 07/13/22 04:04 BP 110/62 07/13/22 04:04 Pulse Ox 96 07/13/22 07:16 FiO2 35 07/13/22 02:22 Intake & Output 07/12/22 07/13/22 07/13/22 18:59 06:59 18:59 Intake Total 310 500 Output Total 2000 500 Balance -1690 0 Weight 146 kg Intake: Oral 500 Blood Product 310 Rc Irr As1 Unit 310 [id number] Output: Urine 2000 500 Other: Voiding Method External Catheter Bedside Commode External Catheter - Labs CBC & Chem 7: 07/12/22 05:42 07/13/22 05:21 Labs: Abnormal Lab Results - Last 24 Hours (Table) 07/11/22 07/12/22 07/12/22 Range/Units 13:57 05:42 11:44 Carbon Dioxide 34.3 H (20.0-27.5) mmol/L Anion Gap 7.60 L (10.00-18.00) mmol/L BUN 31.0 H (9.0-27.0) mg/dL Creatinine 1.6 H (0.6-1.5) mg/dL Est GFR (CKD-EPI)AfAm 37.8 L (60.0-200.0) Est GFR (CKD-EPI)NonAf 32.6 L (60.0-200.0) POC Glucose (mg/dL) 171 H (70-110) mg/dL TSH 10.800 H (0.350-5.500) uIU/mL Crossmatch See Detail 07/12/22 07/12/22 07/13/22 Range/Units 17:21 20:16 07:13 Carbon Dioxide (20.0-27.5) mmol/L Anion Gap (10.00-18.00) mmol/L BUN (9.0-27.0) mg/dL Creatinine (0.6-1.5) mg/dL Est GFR (CKD-EPI)AfAm (60.0-200.0) Est GFR (CKD-EPI)NonAf (60.0-200.0) POC Glucose (mg/dL) 228 H 201 H 124 H (70-110) mg/dL TSH (0.350-5.500) uIU/mL Crossmatch
[2022-07-13 11:22] LABS: Glucose,Whole Blood 146 mg/dL (70-110)
--- NOTE | 2022-07-13 11:57 | P.PN ---
Subjective Progress Note Date: 07/13/22 H&P Date: 07/09/22 Chief Complaint: Worsening shortness of breath This is a 72-year-old female recently discharged from [facility] subacute rehab with known chronic hypoxic respiratory failure, multifactorial, wears 3L nasal cannula O2 at home. Patient was discharged home and had issues obtaining nebulizer/received a couple days prior to admission. Reports shortness of breath 3 days, presented to the ER. Chest x-ray limited secondary to large body habitus, reporting cardiomegaly, continued interstitial pulmonary edema, small bilateral effusions. Telemetry atrial fibrillation with controlled ventricular rate. Afebrile, normal WBC, hemoglobin 7.5, platelets 184. Atelectasis within normal limits, bicarb 31, BUN 35, creatinine 1.33. ProBNP 3960. Denies chest pain, palpitations. EKG reporting atrial fibrillation with controlled ventricular rate, Troponin negative.Echo 04/07/2022- EF 4550 percent, moderate concentric LVH, severe pulmonary hypertension, mild aortic regurgitation, mild aortic stenosis Severe tricuspid regurgitation. Influenza and Odell virus screening negative. Currently awaiting BiPAP, short of breath with conversing, lethargic. IV push diuretics initiated. 07/10/2022 maintained on nebulized bronchodilators, IV steroids with significant clinical improvement. Weaned off of BiPAP with 35% currently maintaining O2 sats in the 90s on 3 L nasal cannula. Afebrile. Labs pending. 07/13/2022 Diuresing well on IVP Lasix with 24-hour I&O reflecting a negative fluid balance. Creatinine decreased to 1.4. Received one unit of packed RBCs yesterday, hemoglobin remains at 7.3. Continues on Lopressor, statin,telemetry reporting atrial fibrillation, controlled rate. Anticoagulated on Eliquis. TSH 9.09/free T4 0.89, 10.8/0.9; levothyroxine increased yesterday. Maintaining O2 sats in the 90s on 3 L nasal cannula. Objective - Vital Signs Vital signs: Vital Signs Temp 99.5 F 07/13/22 04:04 Pulse 76 07/13/22 11:23 Resp 20 07/13/22 04:04 BP 110/62 07/13/22 04:04 Pulse Ox 96 07/13/22 07:16 FiO2 35 07/13/22 02:22 Intake & Output 07/12/22 07/13/22 07/13/22 18:59 06:59 18:59 Intake Total 310 500 Output Total 1999 500 550 Balance -1690 0 -550 Weight 146 kg Intake: Oral 500 Blood Product 310 Rc Irr As1 Unit 310 [id number] Output: Urine 1999 550 Other: Voiding Method External Catheter Bedside Commode Bedside Commode External Catheter External Catheter - Exam - Exam General: Morbidly obese , sitting up in bed ,Awake, alert and oriented times 3. NAD. HEENT: [Normocephalic, atraumatic, PERRL. EOMI. ] Neck: [Supple, unable to evaluate JVD-short neck. Cardiac: [Heart irregular in rate and rhythm. No S3. No S4. No clicks, rubs. No murmur.] Lungs: Patient has coarse breath sounds with bilateral bases diminished, fine crackles Abdomen: [Obese, soft , no masses palpable, positive bowel sounds. Extremes: [Positive edema, chronic venous changes of lower extremities ,normal pulses] NEURO: Cranial nerves II-12 grossly intact. Skin: Warm and dry, No rash. - Labs CBC & Chem 7: 07/13/22 05:21 07/13/22 05:21 Labs: Abnormal Lab Results - Last 24 Hours (Table) 07/11/22 07/12/22 07/12/22 Range/Units 13:57 11:44 17:21 RBC (4.10-5.20) X 10*6/uL Hgb (12.0-15.0) g/dL Hct (37.2-46.3) % MCHC (32.0-37.0) g/dL RDW (11.5-14.5) % Lymphocytes # (0.90-5.00) X 10*3/uL Carbon Dioxide (20.0-27.5) mmol/L Anion Gap (10.00-18.00) mmol/L BUN (9.0-27.0) mg/dL Est GFR (CKD-EPI)AfAm (60.0-200.0) Est GFR (CKD-EPI)NonAf (60.0-200.0) BUN/Creatinine Ratio (12.00-20.00) Ratio Glucose (70-110) mg/dL POC Glucose (mg/dL) 171 H 228 H (70-110) mg/dL Crossmatch See Detail Blood Bank Comment Sent to [facility] A Reference Lab Result See BBK REF Reports A 07/12/22 07/13/22 07/13/22 Range/Units 20:16 05:21 05:21 RBC 2.61 L (4.10-5.20) X 10*6/uL Hgb 7.3 L (12.0-15.0) g/dL Hct 25.3 L (37.2-46.3) % MCHC 28.9 L (32.0-37.0) g/dL RDW 16.5 H (11.5-14.5) % Lymphocytes # 0.62 L (0.90-5.00) X 10*3/uL Carbon Dioxide 37.1 H (20.0-27.5) mmol/L Anion Gap 7.80 L (10.00-18.00) mmol/L BUN 29.8 H (9.0-27.0) mg/dL Est GFR (CKD-EPI)AfAm 42.4 L (60.0-200.0) Est GFR (CKD-EPI)NonAf 36.6 L (60.0-200.0) BUN/Creatinine Ratio 20.99 H (12.00-20.00) Ratio Glucose 111 H (70-110) mg/dL POC Glucose (mg/dL) 201 H (70-110) mg/dL Crossmatch Blood Bank Comment Reference Lab Result 07/13/22 07/13/22 Range/Units 07:13 11:21 RBC (4.10-5.20) X 10*6/uL Hgb (12.0-15.0) g/dL Hct (37.2-46.3) % MCHC (32.0-37.0) g/dL RDW (11.5-14.5) % Lymphocytes # (0.90-5.00) X 10*3/uL Carbon Dioxide (20.0-27.5) mmol/L Anion Gap (10.00-18.00) mmol/L BUN (9.0-27.0) mg/dL Est GFR (CKD-EPI)AfAm (60.0-200.0) Est GFR (CKD-EPI)NonAf (60.0-200.0) BUN/Creatinine Ratio (12.00-20.00) Ratio Glucose (70-110) mg/dL POC Glucose (mg/dL) 124 H 146 H (70-110) mg/dL Crossmatch Blood Bank Comment Reference Lab Result Assessment and Plan Assessment: Acute on chronic diastolic congestive heart failure Acute on chronic hypoxic, hypercapnic respiratory failure, secondary to the above, wears 3 L NC O2 at home Obstructive sleep apnea, hypercapnic requiring BiPAP History of COVID-19 pneumonia January 2022 with chronic fibrotic changes secondary to the Covid infection as per pulmonary Recent admission for acute GI bleed with anemia .Chronic anemia, iron deficient. Recent EGD, colonoscopy reporting nonbleeding antral ulceration, suspected diverticular bleeding, followed by repeat EGD reporting antral gastritis. Moderate to severe pulmonary hypertension Mild aortic stenosis Severe tricuspid regurgitation Chronic kidney disease,III History of UTI with Klebsiella pneumoniae, ESBL History of Chronic Bilateral lower extremity cellulitis Chronic atrial fibrillation, anticoagulated on Eliquis CAD, history of CABG Hypertension hyperlipidemia Diabetes mellitus, hemoglobin A1c 6.9 Diabetic neuropathy Hypothyroidism Depression, history of History of bariatric surgery Morbid obesity, BMI 60.4 Plan: Continue on current medication regime ,monitoring and symptomatic treatment. Diuretics as per cardiology. Maintain BiPAP throughout the night and with napping. Close monitoring of renal function, coags with repeat labs ordered for a.m. Prognosis guarded given multiple complex medical issues. The impression and plan of care has been dictated as directed. : I performed a history and examination of this patient, discussed the same with the dictator. I agree with the dictator's note ,documented as a scribe. Any additional findings or plans will be noted.
--- NOTE | 2022-07-13 12:15 | P.NPCON ---
History of Present Illness - Reason for Consult acute renal failure, chronic renal failure - History of Present Illness Reason for consultation: Acute kidney injury on chronic kidney disease History of present illness: Patient is a 72-year-old female seen in renal consultation for acute kidney injury on chronic kidney disease. Patient has chronic kidney disease stage III with baseline creatinine in the range of 1.1-1.3. Creatinine peaked at 1.6 this admission and is 1.4 today. Patient presented to the hospital on 07/09/2022 with worsening shortness of breath that was progressively getting worse over the last few days. She does wear 3 L of oxygen at home. Patient states since this admission edema in the lower extremities has improved. She is currently on 3 L nasal cannula. Blood pressure stable. She has an external catheter and has good urine output. No hematuria. She is currently maintained on IV Lasix 40 mg once daily. Patient has long-standing history of diabetes. She has history of coronary artery disease status post CABG. Echocardiogram showed ejection fraction of 45-50% with moderate pulmonary hypertension. Denies use of nonsteroidals. Denies family history of renal disease. No fever or chills. Vital signs stable. General: NAD. HEENT: Head exam is unremarkable. On nasal cannula. LUNGS: Breath sounds decreased. HEART: Rate and Rhythm are regular. ABDOMEN: Soft, no tenderness. EXTREMITITES: 1+ edema. Past Medical History Past Medical History: Atrial Fibrillation, Coronary Artery Disease (CAD), Diabetes Mellitus, Eye Disorder, Hyperlipidemia, Hypertension, Osteoarthritis (OA), Pneumonia, Renal Disease, Sleep Apnea/CPAP/BIPAP, Thyroid Disorder Additional Past Medical History / Comment(s): Pt recently admitted to [facility] on 05/08/22 with anemia/had EGD and colonoscopy which showed nonbleeding stomach ulcer/diverticular disease and colon polyp, pt received blood transfusions. Other hx: 02/12/22 covid/pneumonia/sepsis, other past pneumonias, acute hypoxic respiratory failure/now on home oxygen ATC, new A fib with RVR, IDDM type II, neuropathy bilateral feet, L eye retinal bleed/lasik eye surgery, R eye cataract, bilateral eye macular degeneration/gets injections/poor vision, CKD stage III, anemia, UTI/sepsis, bilateral leg lymphedema, FLORES/does not have cpap machine at this time, diverticulitis, gout, chronic back pain, rheumatic fever, hypothyroid. History of Any Multi-Drug Resistant Organisms: ESBL Date of last positivie culture/infection: 05/22/22 ESBL Klebsiella MDRO Source:: Urine Past Surgical History: Bariatric Surgery, Section, Cholecystectomy, Coronary Bypass/CABG, Heart Catheterization, Hysterectomy, Orthopedic Surgery, Tonsillectomy Additional Past Surgical History / Comment(s): EGD, colonoscopy, 2 vessel CABG in 1996, bilateral carpal tunnel release, lap band, L eye laser surgery, Past Anesthesia/Blood Transfusion Reactions: No Reported Reaction Past Psychological History: Depression Smoking Status: Never smoker - Past Family History Father Family Medical History: Cancer, Coronary Artery Disease (CAD), Diabetes Mellitus Additional Family Medical History / Comment(s): Prostate cancer Mother Family Medical History: Cancer Additional Family Medical History / Comment(s): Bone cancer. Medications and Allergies Home Medications Medication Instructions Recorded Confirmed Type Atorvastatin [Lipitor] 40 mg PO HS 08/10/16 07/09/22 History Isosorbide Mononitrate [Isosorbide 30 mg PO DAILY 08/10/16 07/09/22 History Mononitrate ER] Oxybutynin Chloride 5 mg PO BID 08/10/16 07/09/22 History Metoprolol Tartrate [Lopressor] 50 mg PO DAILY 04/12/22 07/09/22 History Mirtazapine [Remeron] 15 mg PO HS 04/12/22 07/09/22 History Acetaminophen Tab [Tylenol] 650 mg PO Q6H PRN 05/08/22 07/09/22 History Docusate [Colace] 100 mg PO DAILY PRN 05/08/22 07/09/22 History Levothyroxine Sodium [Synthroid] 50 mcg PO DAILY 05/22/22 07/09/22 History Omeprazole [PriLOSEC] 20 mg PO DAILY 05/22/22 07/09/22 History Gabapentin [Neurontin] 300 mg PO BID #6 cap 05/27/22 07/09/22 Rx Apixaban [Eliquis] 5 mg PO BID 07/09/22 07/09/22 History Furosemide [Lasix] 20 mg PO DAILY 07/09/22 07/09/22 History INSULIN ASPART (NovoLOG) [NovoLOG 35 - 40 unit SQ AC-TID 07/09/22 07/09/22 History (formulary)] Insulin Detemir (Levemir) [Levemir] 55 - 60 unit SQ BID 07/09/22 07/09/22 History Potassium Chloride ER [K-Dur 10] 20 meq PO DAILY 07/09/22 07/09/22 History polyethylene glycoL 3350 [Miralax] 17 gm PO DAILY PRN 07/09/22 07/09/22 History Allergies Allergy/AdvReac Type Severity Reaction Status Date / Time ibuprofen [From Motrin] Allergy Rash/Hives Verified 07/09/22 11:13 Penicillins Allergy Anaphylaxis Verified 07/09/22 11:13 Physical Exam Vitals: Vital Signs Temp Pulse Pulse Pulse Resp BP BP 07/13/22 11:43 98.6 F 93 16 117/64 07/13/22 11:23 76 07/13/22 11:11 76 07/13/22 07:27 84 07/13/22 07:16 82 07/13/22 04:04 99.5 F 95 20 110/62 07/13/22 02:22 07/12/22 22:15 07/12/22 20:09 88 07/12/22 20:05 18 07/12/22 19:56 86 07/12/22 19:48 97.9 F 86 18 122/67 07/12/22 16:25 98 07/12/22 16:13 98 07/12/22 14:10 87 112 H 20 07/12/22 13:16 07/12/22 13:13 98.0 F 102 H 20 148/76 Pulse Ox FiO2 07/13/22 11:43 99 07/13/22 11:23 07/13/22 11:11 07/13/22 07:27 07/13/22 07:16 96 07/13/22 04:04 98 07/13/22 02:22 35 07/12/22 22:15 35 07/12/22 20:09 07/12/22 20:05 07/12/22 19:56 07/12/22 19:48 99 07/12/22 16:25 07/12/22 16:13 07/12/22 14:10 07/12/22 13:16 99 07/12/22 13:13 Intake and Output 07/12/22 07/13/22 07/13/22 22:59 06:59 14:59 Intake Total 500 Output Total 2000 500 550 Balance -1999 0 -550 Intake: Oral 500 Output: Urine 1999 500 550 Other: Voiding Method Bedside Commode Bedside Commode External Catheter External Catheter Weight 146 kg Results - Lab Results Most recent lab results Calcium 9.0 mg/dL (8.7-10.3) 07/13/22 05:21 Magnesium 2.4 mg/dL (1.6-2.3) H 07/09/22 07:43 07/13/22 05:21 07/13/22 05:21 Assessment and Plan Plan: Assessment: 1. Acute kidney injury mostly prerenal secondary to cardiorenal syndrome. Creatinine peaked at 1.6 this admission and is 1.4 today. 2. Chronic kidney disease stage III at baseline creatinine in the range of 1.1- 1.3 secondary to nephrosclerosis. UA benign. Renal ultrasound from April 2022 showed no evidence of hydronephrosis. 3. Volume overload. 4. Acute on chronic systolic CHF with ejection fraction of 45-50% with moderate pulmonary hypertension. 5. Diabetes mellitus. 6. Acute blood loss anemia status post blood transfusion this admission. Hemoglobin 7.3 today. Plan: Maintain IV Lasix. Stop potassium supplementation. Check iron studies. Avoid nephrotoxins. Continue to monitor renal function and urine output. Thank you for the consultation. I will continue to follow patient with you during her hospital stay.
[2022-07-13 17:09] LABS: Glucose,Whole Blood 188 mg/dL (70-110)
[2022-07-13 18:30] LABS: % Iron Saturation 7.63 (12.00-45.00); Ferritin 81.8 ng/mL (10.0-291.0)
--- NOTE | 2022-07-13 20:24 | P.PN ---
Subjective Progress Note Date: 07/13/22 This a 72-year-old female patient with a known history of chronic hypoxemic and hypercapnic respiratory failure. Chest has a history of coronary artery disease with coronary artery bypass grafting, atrial fibrillation, diabetes mellitus, hyperlipidemia, hypertension, obesity, obstructive sleep apnea, hypothyroidism, diabetic retinopathy and diabetic neuropathy, gout, stage III kidney disease. She had recently been discharged from here in May to [facility] [place]. She has since been discharged home. She presented here to the emergency room early this morning with worsening shortness of breath. Chest x-ray is somewhat limited due to her large body habitus. There is moderate cardiomegaly and continued interstitial pulmonary edema. Small bilateral effusions. She is currently in atrial fibrillation with a controlled ventricular rate. White count 6.4. Hemoglobin 7.5. Platelets 184. Sodium 143. Potassium 5.4. Chloride 109. Bicarb 31. BUN 35. Creatinine 1.33. ProBNP 3960. Troponin negative. Odell virus screen negative. Influenza screen negative. She was initially on oxygen at 3 L/m per nasal cannula. She is currently seen in the emergency department in consultation. She's on BiPAP 12/6 and 35% FiO2. She has lower extremity edema. She is somewhat lethargic. She has basilar crackles. She's been initiated on Lasix 40 mg IV every 12 hours. Anticoagulated with Eliquis. Progress note dated 07/10/2022. This is a 72-year-old female well-known to our service. She has a history of chronic hypoxemic and hypercapnic respiratory failure, primarily secondary to CHF. She was seen by me in the emergency department yesterday, trauma room 2. At that time, she was on BiPAP. She is being admitted to the hospital. She's currently seen today in room 615. No new labs today as yet. Labs July 09 are reviewed. X-rays were reviewed. She's had 6 admissions to this hospital this year already. She remains on BiPAP, at 35%. Vital signs are stable including a temperature of 98, heart rate 93, respiratory rate 19, and blood pressure 120/67. BiPAP settings include 12/6 and 35%. Progress note dated 07/12/2022. The patient is seen today in room 521. She is currently on 3 L of oxygen. She does use BiPAP intermittently, and mostly throughout the night, with settings of 12/6 and 35%. She's not on any IV fluids. A repeat chest x-ray still does show fluid overload/CHF. White count 6.4, hemoglobin 7.3, hematocrit 24, and platelet count 265,000. Sodium 142, potassium 4.8, chlorides 101, CO2 34, BUN 31, creatinine 1.6. TSH is 10.8. 07/03/2022 patient is stable on 3 L of O2 nasal cannula. The patient continues to be on IV Lasix every 24 hours and the patient is to be 40 mg IV push. Creatinine is improving is down to 1.4 . Patient has chronic kidney disease stage III with baseline creatinine in the range of 1.1-1.3. Creatinine peaked at 1.6 this admission and is 1.4 today. The patient received 2 units of packed RBC yesterday for a hemoglobin of 6.8 and a subsequent hemoglobin is 7.3. No evidence of bleeding. The patient remains on anticoagulation with Eliquis. The chest x-ray shows cardiomegaly and CHF, and the patient is known to have chronic systolic heart failure with an ejection fraction of 45% Objective - Vital Signs Vital signs: Vital Signs Temp 98.6 F 07/13/22 11:43 Pulse 77 07/13/22 19:05 Resp 16 07/13/22 11:43 BP 117/64 07/13/22 11:43 Pulse Ox 99 07/13/22 11:43 FiO2 35 07/13/22 02:22 Intake & Output 07/13/22 07/13/22 07/14/22 06:59 18:59 06:59 Intake Total 500 Output Total 500 1550 Balance 0 -1550 Weight 146 kg Intake: Oral 500 Output: Urine 500 1550 Other: Voiding Method Bedside Commode Bedside Commode External Catheter External Catheter - Exam No acute distress, The patient is much more awake today. Currently on 3 L. HEENT examination is grossly unremarkable. Neck supple. Full range of motion. No adenopathy thyromegaly or neck vein distention. Cardiovascular examination reveals regular rhythm rate. S1-S2 normal. No S3 or S4. No discernible murmur noted. Heart sounds are distant. Lungs reveal scattered bilateral rhonchi and crackles. Breath sounds equal. No wheezes. Abdomen obese. No masses. Extremities reveal chronic edema, without cyanosis or clubbing. Skin reveals multiple areas of ecchymoses. Chronic venous changes to the lower extremities. Neurologic examination is brief but nonfocal. Patient is much more awake today than yesterday. - Labs CBC & Chem 7: 07/13/22 05:21 07/13/22 05:21 Labs: Abnormal Lab Results - Last 24 Hours (Table) 07/11/22 07/12/22 07/13/22 Range/Units 13:57 20:16 05:21 RBC 2.61 L (4.10-5.20) X 10*6/uL Hgb 7.3 L (12.0-15.0) g/dL Hct 25.3 L (37.2-46.3) % MCHC 28.9 L (32.0-37.0) g/dL RDW 16.5 H (11.5-14.5) % Lymphocytes # 0.62 L (0.90-5.00) X 10*3/uL Carbon Dioxide (20.0-27.5) mmol/L Anion Gap (10.00-18.00) mmol/L BUN (9.0-27.0) mg/dL Est GFR (CKD-EPI)AfAm (60.0-200.0) Est GFR (CKD-EPI)NonAf (60.0-200.0) BUN/Creatinine Ratio (12.00-20.00) Ratio Glucose (70-110) mg/dL POC Glucose (mg/dL) 201 H (70-110) mg/dL Iron (50-170) ug/dL % Saturation (12.00-45.00) Blood Bank Comment Sent to Reference[facility] A Reference Lab Result See [facility] REF Reports A 07/13/22 07/13/22 07/13/22 Range/Units 05:21 05:21 07:13 RBC (4.10-5.20) X 10*6/uL Hgb (12.0-15.0) g/dL Hct (37.2-46.3) % MCHC (32.0-37.0) g/dL RDW (11.5-14.5) % Lymphocytes # (0.90-5.00) X 10*3/uL Carbon Dioxide 37.1 H (20.0-27.5) mmol/L Anion Gap 7.80 L (10.00-18.00) mmol/L BUN 29.8 H (9.0-27.0) mg/dL Est GFR (CKD-EPI)AfAm 42.4 L (60.0-200.0) Est GFR (CKD-EPI)NonAf 36.6 L (60.0-200.0) BUN/Creatinine Ratio 20.99 H (12.00-20.00) Ratio Glucose 111 H (70-110) mg/dL POC Glucose (mg/dL) 124 H (70-110) mg/dL Iron 28 L (50-170) ug/dL % Saturation 7.63 L (12.00-45.00) Blood Bank Comment Reference Lab Result 07/13/22 07/13/22 Range/Units 11:21 17:08 RBC (4.10-5.20) X 10*6/uL Hgb (12.0-15.0) g/dL Hct (37.2-46.3) % MCHC (32.0-37.0) g/dL RDW (11.5-14.5) % Lymphocytes # (0.90-5.00) X 10*3/uL Carbon Dioxide (20.0-27.5) mmol/L Anion Gap (10.00-18.00) mmol/L BUN (9.0-27.0) mg/dL Est GFR (CKD-EPI)AfAm (60.0-200.0) Est GFR (CKD-EPI)NonAf (60.0-200.0) BUN/Creatinine Ratio (12.00-20.00) Ratio Glucose (70-110) mg/dL POC Glucose (mg/dL) 146 H 188 H (70-110) mg/dL Iron (50-170) ug/dL % Saturation (12.00-45.00) Blood Bank Comment Reference Lab Result Assessment and Plan Plan: Acute on chronic hypoxic respiratory failure secondary to an acute exacerbation of diastolic congestive heart failure, currently stable at 3 L of oxygen by nasal cannula Acute on chronic hypercapnic respiratory failure. Morbid obesity with a BMI of 58 kg per metered square. Obstructive sleep apnea. Chronic atrial fibrillation. Hyperlipidemia. Hypertension. Hypothyroidism, not well controlled. Coronary artery disease with previous coronary artery bypass grafting 2 in 1996. History of depression. Chronic back pain. History of gout. Acute on Chronic stage III kidney disease. Creatinine is stable at 1.4 Acute on chronic anemia, transfused with packed RBC, hemoglobin is at 7.3 Diabetes mellitus with diabetic neuropathy. Poor overall functional performance based on the above-mentioned multiple comorbidities. Plan Continue Lasix 40 mg IV daily Creatinine improving BIPAP overnight Mental status is adequate and there is no signs of any CO2 narcosis Resume home medications including the Lantus insulin and the NovoLog Monitor renal function Will Follow
[2022-07-13 20:38] LABS: Glucose,Whole Blood 165 mg/dL (70-110)
[2022-07-13] MEDS: MIRTAZAPINE 15 MG TAB PO SCH (20:50)
[2022-07-13] MEDS: ATORVASTATIN 40 MG TAB PO SCH (20:50)
[2022-07-14] MEDS: LEVOTHYROXINE 100 MCG TAB PO SCH (05:43)
[2022-07-14] MEDS: IPRATROPIUM-ALBUTEROL 3 ML NEB INHALATION SCH ×4 (07:04→20:24)
[2022-07-14 07:28] LABS: Glucose,Whole Blood 102 mg/dL (70-110)
[2022-07-14] MEDS: INSULIN ASPART (NovoLOG) 100 UNIT/ML VIAL SQ SCH ×4 (08:20→17:36)
[2022-07-14] MEDS: ISOSORBIDE MONONITRATE ER 30 MG TAB.ER.24H PO SCH (08:36)
[2022-07-14] MEDS: FUROSEMIDE 40 MG TAB PO SCH (08:37)
[2022-07-14] MEDS: METOPROLOL TARTRATE 50 MG TAB PO SCH (08:37)
[2022-07-14] MEDS: GABAPENTIN 300 MG CAP PO SCH ×2 (08:37→20:54)
[2022-07-14] MEDS: PANTOPRAZOLE 40 MG TABLET PO SCH (08:37)
[2022-07-14] MEDS: APIXABAN 5 MG TAB PO SCH ×2 (08:37→20:54)
[2022-07-14] MEDS: INSULIN DETEMIR (LEVEMIR) 100 UNIT/ML SYR SQ SCH ×2 (08:37→20:53)
[2022-07-14] MEDS: OXYBUTYNIN CHLORIDE 5 MG TAB PO SCH ×2 (08:39→20:54)
[2022-07-14 09:27] LABS: African American GFR (CKD) 47.1 (60.0-200.0); Anion Gap 9.5 mmol/L (10.00-18.00); BUN/Creat Ratio 22.38 Ratio (12.00-20.00); Blood Urea Nitrogen 29.1 mg/dL (9.0-27.0); Carbon Dioxide 35.5 mmol/L (20.0-27.5); Magnesium 1.9 mg/dL (1.5-2.4); Non-African American GFR(CKD) 40.7 (60.0-200.0); Potassium 4.7 mmol/L (3.5-5.5)
--- NOTE | 2022-07-14 09:38 | P.PN ---
Subjective Progress Note Date: 07/14/22 History of present illness: This is a 72-year-old female patient of Dr. Weller with a past medical history significant for permanent atrial fibrillationon eliquis, coronary artery disease with prior stenting, chronic diastolic heart failure, aortic stenosis, hypertension and dyslipidemia. We are consulted for congestive heart failure. The patient presented yesterday due to worsening shortness of breath and going on for the last few days. She is seen today in the emergency center waiting for a bed on the observation unit. She has been started on IV Lasix 40 mg every 12 hours and home cardiac medications been resumed. Patient states that her breathing is better at this time but note the patient is on a BiPAP FiO2 of 30 with pulse ox 100%. Vital signs are stable. Recent hospitalization with yves cruz on 05/28/2022 due to acute GI bleed requiring transfusion of 3 units of packed RBCs and EGD finding nonbleeding antral ulceration as well as colonoscopy was suspected diverticular bleeding. Anticoagulation was resumed following procedures. EKG atrial fibrillation with controlled rate Hemoglobin is 7.2, potassium 5.4, BUN 35 creatinine 1.33. Troponin negative 1. ProBNP 3960. Coronavirus PCR not detected. Influenza A and influenza B not detected Chest x-ray is limited due to body habitus. Moderate cardiomegaly and continued interstitial pulmonary edema. New Small bilateral pleural effusions on the lateral view. Echo 04/07/2022- EF 4550 percent, moderate concentric LVH, severe pulmonary hypertension, mild aortic regurgitation, mild aortic stenosis, mean gradient of 14 mmHg. Severe tricuspid regurgitation RVSP 61mmHG. July [id number] The patient was seen and evaluated this morning. She remains short of breath. She continues to have bilateral lower except his edema. She has been diuresing very well on the current dose of Lasix IV which is 40 mg daily. She remains in atrial fibrillation was overall controlled heart rate an average heart rate about 100 beats per minutes. From a cardiac vascular standpoint of view, I would continue the current medical regimen including the current dose of Lasix and continue monitor the kidney function and electrolytes and follow-up with the blood work this morning. Continue oral anticoagulation for the atrial fibrillation July [id number] The patient was seen and evaluated this morning. She remained short of breath and she continues to have bilateral lower extremities edema as well. She has been diuresing well on the current dose of Lasix IV. The hemoglobin is marginal and she is in process of receiving one unit of packed RBC. From the cardiac standpoint of view, would continue the current medical regimen and continue IV Lasix for at least additional 24 hours. Blood transfusion and hemoglobin in the morning to be checked. 07/13 Patient is seen and examined. She denies any new concerns. She has been continued on IV Lasix. bus monitor is atrial fibrillation controlled rate. Repeat blood work reveals BUN of 29 creatinine 1.4, CO2 37. Repeat CBC is pending at the time of this dictation. Patient was transfused 1 unit of packed RBCs yesterday. 07/14 Patient is laying flat in bed on BiPAP. Breathing status is improving. She denies having any chest pain, lightheadedness or dizziness. She is currently on Lasix 40 mg IV every day. She is status post 1 unit packed RBCs with repeat hemoglobin 7.3. Patient has been diuresing well. Repeat BUN 29 and creatinine 1.3. Consult was added yesterday for nephrology. Physical examination: Gen: This is a super morbid obese 72-year-old female. She is resting in bed and appears to be comfortable VS: Reviewed HEENT: Head is atraumatic, normocephalic. Sclerae is anicteric. NECK: Supple. No JVD. No lymphadenopathy. No thyromegaly. LUNGS: Bilateral decreased. No intercostal retractions. HEART:Irregular rate and rhythm. No murmur. ABDOMEN: Soft. Bowel sounds are present. No masses. No tenderness. EXTREMITIES: Trace lateral pedal edema. No calf tenderness. NEUROLOGICAL: Patient is awake, alert and oriented x3. ASSESSMENT Acute on chronic diastolic heart failure Permanent atrial fibrillation, on Eliquis Recent workup for GI bleed and anemia Coronary artery disease s/p prior stenting Hypertension Dyslipidemia Mild aortic stenosis Severe pulmonary hypertension Severe tricuspid regurgitation PLAN Transition IV Lasix to oral Lasix 40 mg daily Monitor I&O, daily weights, electrolytes and renal function Patient is continued on eliquis, atorvastatin, Torres, Lopressor Patient will follow up with Dr. NANCY Weller in the office following discharge. Nurse Practitioner note has been reviewed, I agree with a documented findings and plan of care. Patient was seen and examined. Objective - Vital Signs Vital signs: Vital Signs Temp 97.0 F L 07/14/22 05:00 Pulse 72 07/14/22 07:20 Resp 20 07/14/22 05:00 BP 125/64 07/14/22 05:00 Pulse Ox 98 07/14/22 07:04 FiO2 35 07/14/22 07:04 Intake & Output 07/13/22 07/14/22 07/14/22 18:59 06:59 18:59 Intake Total 200 Output Total 1550 600 Balance -1550 -400 Weight 143.5 kg Intake: Oral 200 Output: Urine 1550 600 Other: Voiding Method Bedside Commode Bedside Commode External Catheter External Catheter - Labs CBC & Chem 7: 07/13/22 05:21 07/14/22 06:00 Labs: Abnormal Lab Results - Last 24 Hours (Table) 07/11/22 07/13/22 07/13/22 Range/Units 13:57 05:21 05:21 RBC 2.61 L (4.10-5.20) X 10*6/uL Hgb 7.3 L (12.0-15.0) g/dL Hct 25.3 L (37.2-46.3) % MCHC 28.9 L (32.0-37.0) g/dL RDW 16.5 H (11.5-14.5) % Lymphocytes # 0.62 L (0.90-5.00) X 10*3/uL Carbon Dioxide 37.1 H (20.0-27.5) mmol/L Anion Gap 7.80 L (10.00-18.00) mmol/L BUN 29.8 H (9.0-27.0) mg/dL Est GFR (CKD-EPI)AfAm 42.4 L (60.0-200.0) Est GFR (CKD-EPI)NonAf 36.6 L (60.0-200.0) BUN/Creatinine Ratio 20.99 H (12.00-20.00) Ratio Glucose 111 H (70-110) mg/dL POC Glucose (mg/dL) (70-110) mg/dL Iron (50-170) ug/dL % Saturation (12.00-45.00) Blood Bank Comment Sent to [facility] A Reference Lab Result See [facility] REF Reports A 07/13/22 07/13/22 07/13/22 Range/Units 05:21 11:21 17:08 RBC (4.10-5.20) X 10*6/uL Hgb (12.0-15.0) g/dL Hct (37.2-46.3) % MCHC (32.0-37.0) g/dL RDW (11.5-14.5) % Lymphocytes # (0.90-5.00) X 10*3/uL Carbon Dioxide (20.0-27.5) mmol/L Anion Gap (10.00-18.00) mmol/L BUN (9.0-27.0) mg/dL Est GFR (CKD-EPI)AfAm (60.0-200.0) Est GFR (CKD-EPI)NonAf (60.0-200.0) BUN/Creatinine Ratio (12.00-20.00) Ratio Glucose (70-110) mg/dL POC Glucose (mg/dL) 146 H 188 H (70-110) mg/dL Iron 28 L (50-170) ug/dL % Saturation 7.63 L (12.00-45.00) Blood Bank Comment Reference Lab Result 07/13/22 Range/Units 20:28 RBC (4.10-5.20) X 10*6/uL Hgb (12.0-15.0) g/dL Hct (37.2-46.3) % MCHC (32.0-37.0) g/dL RDW (11.5-14.5) % Lymphocytes # (0.90-5.00) X 10*3/uL Carbon Dioxide (20.0-27.5) mmol/L Anion Gap (10.00-18.00) mmol/L BUN (9.0-27.0) mg/dL Est GFR (CKD-EPI)AfAm (60.0-200.0) Est GFR (CKD-EPI)NonAf (60.0-200.0) BUN/Creatinine Ratio (12.00-20.00) Ratio Glucose (70-110) mg/dL POC Glucose (mg/dL) 165 H (70-110) mg/dL Iron (50-170) ug/dL % Saturation (12.00-45.00) Blood Bank Comment Reference Lab Result
[2022-07-14 11:40] LABS: Glucose,Whole Blood 52 mg/dL (70-110)
[2022-07-14 11:57] LABS: Glucose,Whole Blood 66 mg/dL (70-110)
--- NOTE | 2022-07-14 12:08 | P.PN ---
Subjective Patient is seen for follow-up for acute kidney injury on top of chronic kidney disease. She is currently sitting up in a bedside chair. No significant complaints today Good urine output Maintained on oral Lasix at 40 mg daily. Serum creatinine was 1.6 at peak and down to 1.3 today. Objective - Vital Signs Vital signs: Vital Signs Temp 97.9 F 07/14/22 11:28 Pulse 91 07/14/22 11:28 Resp 20 07/14/22 11:28 BP 137/67 07/14/22 11:28 Pulse Ox 98 07/14/22 11:28 FiO2 35 07/14/22 07:04 Intake & Output 07/13/22 07/14/22 07/14/22 18:59 06:59 18:59 Intake Total 200 Output Total 1550 600 700 Balance -1550 -400 -700 Weight 143.5 kg Intake: Oral 200 Output: Urine 1550 600 700 Other: Voiding Method Bedside Commode Bedside Commode Bedside Commode External Catheter External Catheter External Catheter - Exam Awake, comfortable, no acute distress Examination of the heart S1 and S2 Examination lungs bilateral breath sounds are heard Abdomen is soft nontender Examination lower extremities shows chronic skin changes. No significant edema noted DIPPER FISH exam grossly intact - Labs CBC & Chem 7: 07/13/22 05:21 07/14/22 06:00 Labs: Abnormal Lab Results - Last 24 Hours (Table) 07/13/22 07/13/22 07/13/22 Range/Units 05:21 17:08 20:28 Carbon Dioxide (20.0-27.5) mmol/L Anion Gap (10.00-18.00) mmol/L BUN (9.0-27.0) mg/dL Est GFR (CKD-EPI)AfAm (60.0-200.0) Est GFR (CKD-EPI)NonAf (60.0-200.0) BUN/Creatinine Ratio (12.00-20.00) Ratio POC Glucose (mg/dL) 188 H 165 H (70-110) mg/dL Iron 28 L (50-170) ug/dL % Saturation 7.63 L (12.00-45.00) 07/14/22 07/14/22 07/14/22 Range/Units 06:00 11:31 11:54 Carbon Dioxide 35.5 H (20.0-27.5) mmol/L Anion Gap 9.50 L (10.00-18.00) mmol/L BUN 29.1 H (9.0-27.0) mg/dL Est GFR (CKD-EPI)AfAm 47.1 L (60.0-200.0) Est GFR (CKD-EPI)NonAf 40.7 L (60.0-200.0) BUN/Creatinine Ratio 22.38 H (12.00-20.00) Ratio POC Glucose (mg/dL) 52 L 66 L (70-110) mg/dL Iron (50-170) ug/dL % Saturation (12.00-45.00) Assessment and Plan Assessment: 1. Acute kidney injury mostly prerenal secondary to cardiorenal syndrome and anemia. Creatinine peaked at 1.6 this admission and is 1.3 today. 2. Chronic kidney disease stage III at baseline creatinine in the range of 1.1- 1.3 secondary to nephrosclerosis. UA benign. Renal ultrasound from April 2022 showed no evidence of hydronephrosis. 3. Volume overload. 4. Acute on chronic systolic CHF with ejection fraction of 45-50% with moderate pulmonary hypertension. 5. Diabetes mellitus. 6. Acute blood loss anemia status post blood transfusion this admission. Hemoglobin 7.3 yesterday. Significant iron deficiency noted Plan: IV iron Follow-up on hemoglobin Continue current dose of Lasix
[2022-07-14 12:25] LABS: Glucose,Whole Blood 74 mg/dL (70-110)
[2022-07-14] MEDS: SODIUM FERRIC GLUCONAT-SUCROSE 125 MG in SODIUM CHLORIDE 0.9% 100 ML IVPB SCH (12:42)
--- NOTE | 2022-07-14 13:29 | P.PN ---
Subjective Progress Note Date: 07/14/22 This a 72-year-old female patient with a known history of chronic hypoxemic and hypercapnic respiratory failure. Chest has a history of coronary artery disease with coronary artery bypass grafting, atrial fibrillation, diabetes mellitus, hyperlipidemia, hypertension, obesity, obstructive sleep apnea, hypothyroidism, diabetic retinopathy and diabetic neuropathy, gout, stage III kidney disease. She had recently been [place] from here [place] to [facility] [place] She has since been discharged home. She presented here to the emergency room early this morning with worsening shortness of breath. Chest x-ray is somewhat limited due to her large body habitus. There is moderate cardiomegaly and continued interstitial pulmonary edema. Small bilateral effusions. She is currently in atrial fibrillation with a controlled ventricular rate. White count 6.4. Hemoglobin 7.5. Platelets 184. Sodium 143. Potassium 5.4. Chloride 109. Bicarb 31. BUN 35. Creatinine 1.33. ProBNP 3960. Troponin negative. Odell virus screen negative. Influenza screen negative. She was initially on oxygen at 3 L/m per nasal cannula. She is currently seen in the emergency department in consultation. S he's on BiPAP 12/6 and 35% FiO2. She has lower extremity edema. She is somewhat lethargic. She has basilar crackles. She's been initiated on Lasix 40 mg IV every 12 hours. Anticoagulated with Eliquis. Progress note dated 07/10/2022. This is a 72-year-old female well-known to our service. She has a history of chronic hypoxemic and hypercapnic respiratory failure, primarily secondary to CHF. She was seen by me in the emergency department yesterday, trauma room 2. At that time, she was on BiPAP. She is being admitted to the hospital. She's currently seen today in room 615. No new labs today as yet. Labs July 09 are reviewed. X-rays were reviewed. She's had 6 admissions to this hospital this year already. She remains on BiPAP, at 35%. Vital signs are stable including a temperature of 98, heart rate 93, respiratory rate 19, and blood pressure 120/67. BiPAP settings include 12/6 and 35%. The patient is seen today 07/11/2022 in follow-up on the regular medical floor. She is currently sitting up. Awake and alert in no acute distress. She is on 3 L nasal cannula. She's alternating with BiPAP / and 35% FiO2. No IV fluids. She is afebrile. She did have a drop in hemoglobin to 6.8. White count 6.4. Platelets 175. Sodium 142. Potassium 5.5. Glucose 154. BUN 33. Creatinine 1.5. One unit of packed red blood cells have been ordered. If she is continued on DuoNeb inhalations. Anticoagulated with Eliquis. Continued on IV diuretics. Currently in a -1.9 L output. The patient is seen today 07/14/2022 in follow-up on the regular medical floor. She is currently sitting up in bed. Awake and alert in no acute distress. She is currently maintaining O2 saturations in the 90s on 3 L/m per nasal cannula. She's been afebrile. Hemodynamically stable. She has received 1 unit of packed red blood cells this admission. Most recent hemoglobin 7.3. Sodium 143. Potassium 4.7. BUN 29. Creatinine 1.3. She is continued on DuoNeb inhalations. On oral Lasix. Anticoagulated with Eliquis. Objective - Vital Signs Vital signs: Vital Signs Temp 97.9 F 07/14/22 11:28 Pulse 91 07/14/22 11:28 Resp 20 07/14/22 11:28 BP 137/67 07/14/22 11:28 Pulse Ox 98 07/14/22 11:28 FiO2 35 07/14/22 07:04 Intake & Output 07/13/22 07/14/22 07/14/22 18:59 06:59 18:59 Intake Total 200 Output Total 1550 600 700 Balance -1550 -400 -700 Weight 143.5 kg Intake: Oral 200 Output: Urine 1550 600 700 Other: Voiding Method Bedside Commode Bedside Commode Bedside Commode External Catheter External Catheter External Catheter - Exam GENERAL EXAM: Alert, pleasant 72-year-old female, on 3 L nasal cannula, comfortable in no apparent distress. HEAD: Normocephalic. EYES: Normal reaction of pupils, equal size. NOSE: Clear with pink turbinates. THROAT: No erythema or exudates. NECK: No masses, no JVD. CHEST: No chest wall deformity. LUNGS: Equal air entry with bilateral scattered rhonchi, crackles CVS: S1 and S2 normal with no audible murmur, regular rhythm. ABDOMEN: No hepatosplenomegaly, normal bowel sounds, no guarding or rigidity. SPINE: No scoliosis or deformity SKIN: No rashes or areas of ecchymosis CENTRAL NERVOUS SYSTEM: No focal deficits, tone is normal in all 4 extremities. EXTREMITIES: Changes of chronic venous stasis. There is 1-2+ peripheral edema. No clubbing, no cyanosis. Peripheral pulses are intact. - Labs CBC & Chem 7: 07/13/22 05:21 07/14/22 06:00 Labs: Abnormal Lab Results - Last 24 Hours (Table) 07/13/22 07/13/22 07/13/22 Range/Units 05:21 17:08 20:28 Carbon Dioxide (20.0-27.5) mmol/L Anion Gap (10.00-18.00) mmol/L BUN (9.0-27.0) mg/dL Est GFR (CKD-EPI)AfAm (60.0-200.0) Est GFR (CKD-EPI)NonAf (60.0-200.0) BUN/Creatinine Ratio (12.00-20.00) Ratio POC Glucose (mg/dL) 188 H 165 H (70-110) mg/dL Iron 28 L (50-170) ug/dL % Saturation 7.63 L (12.00-45.00) 07/14/22 07/14/22 07/14/22 Range/Units 06:00 11:31 11:54 Carbon Dioxide 35.5 H (20.0-27.5) mmol/L Anion Gap 9.50 L (10.00-18.00) mmol/L BUN 29.1 H (9.0-27.0) mg/dL Est GFR (CKD-EPI)AfAm 47.1 L (60.0-200.0) Est GFR (CKD-EPI)NonAf 40.7 L (60.0-200.0) BUN/Creatinine Ratio 22.38 H (12.00-20.00) Ratio POC Glucose (mg/dL) 52 L 66 L (70-110) mg/dL Iron (50-170) ug/dL % Saturation (12.00-45.00) Assessment and Plan Assessment: Acute on chronic hypoxic respiratory failure secondary to an acute exacerbation of diastolic congestive heart failure Acute on chronic hypercapnic respiratory failure secondary to above Morbid obesity with a BMI of 60 kg per metered square Obstructive sleep apnea Chronic atrial fibrillation anticoagulated with Eliquis Hyperlipidemia Hypertension Hypothyroidism Coronary artery disease with previous coronary artery bypass grafting 2 in 1996 History of depression Chronic back pain History of gout Chronic stage III kidney disease Diabetes mellitus Diabetic neuropathy Nonsmoker Chronic anemia with a drop in hemoglobin to 6.8, 1 unit of packed red blood cells received this admission Poor overall functional performance based on the above-mentioned multiple comorbidities Plan: The patient was seen and evaluated Labs and medications reviewed Continue diuretics, bronchodilators Continue BiPAP support throughout the night and during the day while napping Stable and on 3 L of oxygen We will continue to follow I have personally seen and examined the patient, performed the documentation and the assessment and plan as written. Number of minutes spent on the visit: 10. There is a joint evaluation that was done along with a nurse practitioner. His evaluation was done in more than 10 minutes. Agree on the above-mentioned plan
--- NOTE | 2022-07-14 14:02 | P.DS ---
Providers Date of admission: 07/10/22 13:00 Expected date of discharge: 07/14/22 Attending physician: Maik Jama Consults: 07/09/22 11:46 Consult Physician Routine Consulting Provider: [facility] Consult Reason/Comments: chf exacerbation Do you want consulting provider notified?: Yes 07/09/22 11:51 Consult Physician Routine Consulting Provider: Jonathan Lewis Consult Reason/Comments: KEARA Do you want consulting provider notified?: Yes 07/12/22 12:31 Consult Physician Routine Consulting Provider: Kavya Paul Consult Reason/Comments: worsening kidney funcrtions Do you want consulting provider notified?: Yes Primary care physician: Maik Jama Hospital Course: Final Diagnoses: Acute on chronic diastolic congestive heart failure Acute on chronic hypoxic, hypercapnic respiratory failure, secondary to the above, wears 3 L NC O2 at home Obstructive sleep apnea, hypercapnic requiring BiPAP History of COVID-19 pneumonia January 2022 with chronic fibrotic changes secondary to the Covid infection as per pulmonary Recent admission for acute GI bleed with anemia .Chronic anemia, iron deficient. Recent EGD, colonoscopy reporting nonbleeding antral ulceration, suspected diverticular bleeding, followed by repeat EGD reporting antral gastritis. Moderate to severe pulmonary hypertension Mild aortic stenosis Severe tricuspid regurgitation Chronic kidney disease,III History of UTI with Klebsiella pneumoniae, ESBL History of Chronic Bilateral lower extremity cellulitis Chronic atrial fibrillation, anticoagulated on Eliquis CAD, history of CABG Hypertension hyperlipidemia Diabetes mellitus, hemoglobin A1c 6.9 Diabetic neuropathy Hypothyroidism Depression, history of History of bariatric surgery Morbid obesity, BMI 60.4 Hospital course: This is a 72-year-old female recently discharged from [facility] subacute rehab with known chronic hypoxic respiratory failure, multifactorial, wears 3L nasal cannula O2 at home. Patient was discharged home and had issues obtaining nebulizer/received a couple days prior to admission. Reports shortness of breath 3 days, presented to the ER. Chest x-ray limited secondary to large body habitus, reporting cardiomegaly, continued interstitial pulmonary edema, small bilateral effusions. Telemetry atrial fibrillation with controlled ventricular rate. Afebrile, normal WBC, hemoglobin 7.5, platelets 184. Atelectasis within normal limits, bicarb 31, BUN 35, creatinine 1.33. ProBNP 3960. Denies chest pain, palpitations. EKG reporting atrial fibrillation with controlled ventricular rate, Troponin negative.Echo 04/07/2022- EF 4550 percent, moderate concentric LVH, severe pulmonary hypertension, mild aortic regurgitation, mild aortic stenosis Severe tricuspid regurgitation. Influenza and Odell virus screening negative. Currently awaiting BiPAP, short of breath with conversing, lethargic. IV push diuretics initiated. 07/10/2022 maintained on nebulized bronchodilators, IV steroids with significant clinical improvement. Weaned off of BiPAP with 35% currently maintaining O2 sats in the 90s on 3 L nasal cannula. Afebrile. Labs pending. 07/13/2022 Diuresing well on IVP Lasix with 24-hour I&O reflecting a negative fluid balance. Creatinine decreased to 1.4. Received one unit of packed RBCs yesterday, hemoglobin remains at 7.3. Continues on Lopressor, statin,telemetry reporting atrial fibrillation, controlled rate. Anticoagulated on Eliquis. TSH 9.09/free T4 0.89, 10.8/0.9; levothyroxine increased yesterday. Maintaining O2 sats in the 90s on 3 L nasal cannula. Diuresed well on Lasix IV push,transitioned to oral, renal function stable at baseline, creatinine 1.3. Continues to use BiPAP at night and during napping. Currently maintaining O2 sats in the 90s on 3 L nasal cannula-Baseline. Afebrile. Significant clinical improvement. Cleared by pulmonary and nephrology for discharge. Patient is now agreeable for subacute rehab at discharge. Patient will be discharged today in a stable condition with guarded prognosis pending accepting facility/authorization for subacute rehab. The impression and plan of care has been dictated as directed. : I performed a history and examination of this patient, discussed the same with the dictator. I agree with the dictator's note ,documented as a scribe. Any additional findings or plans will be noted. Patient Condition at Discharge: Stable Plan - Discharge Summary Discharge Rx Participant: No New Discharge Prescriptions: New Levothyroxine Sodium [Synthroid] 100 mcg PO DAILY@0630 #30 tab Furosemide [Lasix] 40 mg PO DAILY #30 tab Continue Atorvastatin [Lipitor] 40 mg PO HS Isosorbide Mononitrate [Isosorbide Mononitrate ER] 30 mg PO DAILY Oxybutynin Chloride 5 mg PO BID Mirtazapine [Remeron] 15 mg PO HS Metoprolol Tartrate [Lopressor] 50 mg PO DAILY Docusate [Colace] 100 mg PO DAILY PRN PRN Reason: Constipation Gabapentin [Neurontin] 300 mg PO BID #6 cap polyethylene glycoL 3350 [Miralax] 17 gm PO DAILY PRN PRN Reason: Constipation Acetaminophen Tab [Tylenol] 650 mg PO Q6H PRN PRN Reason: Pain Omeprazole [PriLOSEC] 20 mg PO DAILY Insulin Detemir (Levemir) [Levemir] 55 - 60 unit SQ BID INSULIN ASPART (NovoLOG) [NovoLOG (formulary)] 35 - 40 unit SQ AC-TID Apixaban [Eliquis] 5 mg PO BID Discontinued Furosemide [Lasix] 20 mg PO DAILY Levothyroxine Sodium [Synthroid] 50 mcg PO DAILY Potassium Chloride ER [K-Dur 10] 20 meq PO DAILY Discharge Medication List Atorvastatin [Lipitor] 40 mg PO HS 08/10/16 [History] Isosorbide Mononitrate [Isosorbide Mononitrate ER] 30 mg PO DAILY 08/10/16 [History] Oxybutynin Chloride 5 mg PO BID 08/10/16 [History] Metoprolol Tartrate [Lopressor] 50 mg PO DAILY 04/12/22 [History] Mirtazapine [Remeron] 15 mg PO HS 04/12/22 [History] Acetaminophen Tab [Tylenol] 650 mg PO Q6H PRN 05/08/22 [History] Docusate [Colace] 100 mg PO DAILY PRN 05/08/22 [History] Omeprazole [PriLOSEC] 20 mg PO DAILY 05/22/22 [History] Gabapentin [Neurontin] 300 mg PO BID #6 cap 05/27/22 [Rx] Apixaban [Eliquis] 5 mg PO BID 07/09/22 [History] INSULIN ASPART (NovoLOG) [NovoLOG (formulary)] 35 - 40 unit SQ AC-TID 07/09/22 [History] Insulin Detemir (Levemir) [Levemir] 55 - 60 unit SQ BID 07/09/22 [History] polyethylene glycoL 3350 [Miralax] 17 gm PO DAILY PRN 07/09/22 [History] Furosemide [Lasix] 40 mg PO DAILY #30 tab 07/14/22 [Rx] Levothyroxine Sodium [Synthroid] 100 mcg PO DAILY@0630 #30 tab 07/14/22 [Rx] Follow up Appointment(s)/Referral(s): Kavya Paul MD [STAFF PHYSICIAN] - 1 Week Bryant Weller MD [STAFF PHYSICIAN] - 1 Week [facility] [NON-STAFF] - 1 Week Maik Jama MD [Primary Care Provider] - 3 Days Ambulatory/Diagnostic Orders: Basic Metabolic Panel [LAB.AMB] Time Frame: 3 Days, Location: None Selected Patient Instructions/Handouts: Heart Failure (DC) Activity/Diet/Wound Care/Special Instructions: BiPAP at night and when napping Rate 12 IP 12 expiratory pressure 6 FiO2 35% Discharge Disposition: TRANSFER TO SNF/ECF
[2022-07-14 17:04] LABS: Glucose,Whole Blood 107 mg/dL (70-110)
[2022-07-14] MEDS: MIRTAZAPINE 15 MG TAB PO SCH (20:54)
[2022-07-14] MEDS: ATORVASTATIN 40 MG TAB PO SCH (20:54)
[2022-07-14 21:00] LABS: Glucose,Whole Blood 218 mg/dL (70-110)
[2022-07-15] MEDS: LEVOTHYROXINE 100 MCG TAB PO SCH (05:39)
[2022-07-15] MEDS: IPRATROPIUM-ALBUTEROL 3 ML NEB INHALATION SCH ×4 (07:21→21:41)
[2022-07-15 07:33] LABS: Glucose,Whole Blood 156 mg/dL (70-110)
[2022-07-15] MEDS: PANTOPRAZOLE 40 MG TABLET PO SCH (09:01)
[2022-07-15] MEDS: APIXABAN 5 MG TAB PO SCH ×2 (09:01→21:11)
[2022-07-15] MEDS: GABAPENTIN 300 MG CAP PO SCH ×2 (09:01→21:11)
[2022-07-15] MEDS: OXYBUTYNIN CHLORIDE 5 MG TAB PO SCH ×2 (09:01→21:11)
[2022-07-15] MEDS: FUROSEMIDE 40 MG TAB PO SCH (09:01)
[2022-07-15] MEDS: SODIUM FERRIC GLUCONAT-SUCROSE 125 MG in SODIUM CHLORIDE 0.9% 100 ML IVPB SCH (09:01)
[2022-07-15] MEDS: INSULIN DETEMIR (LEVEMIR) 100 UNIT/ML SYR SQ SCH ×2 (09:02→21:12)
[2022-07-15] MEDS: INSULIN ASPART (NovoLOG) 100 UNIT/ML VIAL SQ SCH ×3 (09:02→17:57)
[2022-07-15] MEDS: METOPROLOL TARTRATE 50 MG TAB PO SCH (09:02)
[2022-07-15] MEDS: ISOSORBIDE MONONITRATE ER 30 MG TAB.ER.24H PO SCH (09:02)
--- NOTE | 2022-07-15 09:23 | P.PN ---
Subjective Progress Note Date: 07/15/22 History of present illness: This is a 72-year-old female patient of Dr. Weller with a past medical history significant for permanent atrial fibrillationon eliquis, coronary artery disease with prior stenting, chronic diastolic heart failure, aortic stenosis, hypertension and dyslipidemia. We are consulted for congestive heart failure. The patient presented yesterday due to worsening shortness of breath and going on for the last few days. She is seen today in the emergency center waiting for a bed on the observation unit. She has been started on IV Lasix 40 mg every 12 hours and home cardiac medications been resumed. Patient states that her breathing is better at this time but note the patient is on a BiPAP FiO2 of 30 with pulse ox 100%. Vital signs are stable. Recent hospitalization with yves cruz on 05/28/2022 due to acute GI bleed requiring transfusion of 3 units of packed RBCs and EGD finding nonbleeding antral ulceration as well as colonoscopy was suspected diverticular bleeding. Anticoagulation was resumed following procedures. EKG atrial fibrillation with controlled rate Hemoglobin is 7.2, potassium 5.4, BUN 35 creatinine 1.33. Troponin negative 1. ProBNP 3960. Coronavirus PCR not detected. Influenza A and influenza B not detected Chest x-ray is limited due to body habitus. Moderate cardiomegaly and continued interstitial pulmonary edema. New Small bilateral pleural effusions on the lateral view. Echo 04/07/2022- EF 4550 percent, moderate concentric LVH, severe pulmonary hypertension, mild aortic regurgitation, mild aortic stenosis, mean gradient of 14 mmHg. Severe tricuspid regurgitation RVSP 61mmHG. July [id number] The patient was seen and evaluated this morning. She remains short of breath. She continues to have bilateral lower except his edema. She has been diuresing very well on the current dose of Lasix IV which is 40 mg daily. She remains in atrial fibrillation was overall controlled heart rate an average heart rate about 100 beats per minutes. From a cardiac vascular standpoint of view, I would continue the current medical regimen including the current dose of Lasix and continue monitor the kidney function and electrolytes and follow-up with the blood work this morning. Continue oral anticoagulation for the atrial fibrillation July [id number] The patient was seen and evaluated this morning. She remained short of breath and she continues to have bilateral lower extremities edema as well. She has been diuresing well on the current dose of Lasix IV. The hemoglobin is marginal and she is in process of receiving one unit of packed RBC. From the cardiac standpoint of view, would continue the current medical regimen and continue IV Lasix for at least additional 24 hours. Blood transfusion and hemoglobin in the morning to be checked. 07/13 Patient is seen and examined. She denies any new concerns. She has been continued on IV Lasix. hospital monitor is atrial fibrillation controlled rate. Repeat blood work reveals BUN of 29 creatinine 1.4, CO2 37. Repeat CBC is pending at the time of this dictation. Patient was transfused 1 unit of packed RBCs yesterday. 07/14 Patient is laying flat in bed on BiPAP. Breathing status is improving. She denies having any chest pain, lightheadedness or dizziness. She is currently on Lasix 40 mg IV every day. She is status post 1 unit packed RBCs with repeat hemoglobin 7.3. Patient has been diuresing well. Repeat BUN 29 and creatinine 1.3. Consult was added yesterday for nephrology. 07/15 The patient is on BiPAP at night, resting in bed with no shortness of breath. Yesterday, Lasix was transitioned to oral and patient has continued to diurese well. Patient is waiting for discharge to subacute rehab. Physical examination: Gen: This is a super morbid obese 72-year-old female. She is resting in bed and appears to be comfortable VS: Reviewed HEENT: Head is atraumatic, normocephalic. Sclerae is anicteric. NECK: Supple. No JVD. No lymphadenopathy. No thyromegaly. LUNGS: Bilateral decreased. No intercostal retractions. HEART:Irregular rate and rhythm. No murmur. ABDOMEN: Soft. Bowel sounds are present. No masses. No tenderness. EXTREMITIES: no lateral pedal edema. No calf tenderness. NEUROLOGICAL: Patient is awake, alert and oriented x3. ASSESSMENT Acute on chronic diastolic heart failure Permanent atrial fibrillation, on Eliquis Recent workup for GI bleed and anemia Coronary artery disease s/p prior stenting Hypertension Dyslipidemia Mild aortic stenosis Severe pulmonary hypertension Severe tricuspid regurgitation PLAN Continue patient on oral Lasix 40 mg daily Monitor I&O, daily weights, electrolytes and renal function Patient is continued on eliquis, atorvastatin, Torres, Lopressor Patient will follow up with Dr. NANCY Weller in the office following discharge. Nurse Practitioner note has been reviewed, I agree with a documented findings and plan of care. Patient was seen and examined. Objective - Vital Signs Vital signs: Vital Signs Temp 97.6 F 07/15/22 05:00 Pulse 107 H 07/15/22 07:30 Resp 16 07/15/22 05:00 BP 133/63 07/15/22 05:00 Pulse Ox 100 07/15/22 07:22 FiO2 35 07/15/22 07:22 Intake & Output 07/14/22 07/15/22 07/15/22 18:59 06:59 18:59 Intake Total 120 Output Total 1400 Balance -1400 120 Intake: Oral 120 Output: Urine 1400 Other: Voiding Method Bedside Commode Bedside Commode External Catheter External Catheter - Labs CBC & Chem 7: 07/13/22 05:21 07/14/22 06:00 Labs: Abnormal Lab Results - Last 24 Hours (Table) 07/14/22 07/14/22 07/14/22 Range/Units 06:00 11:31 11:54 Carbon Dioxide 35.5 H (20.0-27.5) mmol/L Anion Gap 9.50 L (10.00-18.00) mmol/L BUN 29.1 H (9.0-27.0) mg/dL Est GFR (CKD-EPI)AfAm 47.1 L (60.0-200.0) Est GFR (CKD-EPI)NonAf 40.7 L (60.0-200.0) BUN/Creatinine Ratio 22.38 H (12.00-20.00) Ratio POC Glucose (mg/dL) 52 L 66 L (70-110) mg/dL 07/14/22 07/15/22 Range/Units 20:58 07:32 Carbon Dioxide (20.0-27.5) mmol/L Anion Gap (10.00-18.00) mmol/L BUN (9.0-27.0) mg/dL Est GFR (CKD-EPI)AfAm (60.0-200.0) Est GFR (CKD-EPI)NonAf (60.0-200.0) BUN/Creatinine Ratio (12.00-20.00) Ratio POC Glucose (mg/dL) 218 H 156 H (70-110) mg/dL
[2022-07-15 12:13] LABS: Glucose,Whole Blood 166 mg/dL (70-110)
--- NOTE | 2022-07-15 14:59 | P.PN ---
Subjective Progress Note Date: 07/15/22 This a 72-year-old female patient with a known history of chronic hypoxemic and hypercapnic respiratory failure. Chest has a history of coronary artery disease with coronary artery bypass grafting, atrial fibrillation, diabetes mellitus, hyperlipidemia, hypertension, obesity, obstructive sleep apnea, hypothyroidism, diabetic retinopathy and diabetic neuropathy, gout, stage III kidney disease. She had recently been discharged from here in May to [facility] on the [place]. She has since been discharged home. She presented here to the emergency room early this morning with worsening shortness of breath. Chest x-ray is somewhat limited due to her large body habitus. There is moderate cardiomegaly and continued interstitial pulmonary edema. Small bilateral effusions. She is currently in atrial fibrillation with a controlled ventricular rate. White count 6.4. Hemoglobin 7.5. Platelets 184. Sodium 143. Potassium 5.4. Chloride 109. Bicarb 31. BUN 35. Creatinine 1.33. ProBNP 3960. Troponin negative. Odell virus screen negative. Influenza screen negative. She was initially on oxygen at 3 L/m per nasal cannula. She is currently seen in the emergency department in consultation. S he's on BiPAP 12/6 and 35% FiO2. She has lower extremity edema. She is somewhat lethargic. She has basilar crackles. She's been initiated on Lasix 40 mg IV every 12 hours. Anticoagulated with Eliquis. Progress note dated 07/10/2022. This is a 72-year-old female well-known to our service. She has a history of chronic hypoxemic and hypercapnic respiratory failure, primarily secondary to CHF. She was seen by me in the emergency department yesterday, trauma room 2. At that time, she was on BiPAP. She is being admitted to the hospital. She's currently seen today in room 615. No new labs today as yet. Labs July 09 are reviewed. X-rays were reviewed. She's had 6 admissions to this hospital this year already. She remains on BiPAP, at 35%. Vital signs are stable including a temperature of 98, heart rate 93, respiratory rate 19, and blood pressure 120/67. BiPAP settings include 12/6 and 35%. The patient is seen today 07/11/2022 in follow-up on the regular medical floor. She is currently sitting up. Awake and alert in no acute distress. She is on 3 L nasal cannula. She's alternating with BiPAP 07/07 and 35% FiO2. No IV fluids. She is afebrile. She did have a drop in hemoglobin to 6.8. White count 6.4. Platelets 175. Sodium 142. Potassium 5.5. Glucose 154. BUN 33. Creatinine 1.5. One unit of packed red blood cells have been ordered. If she is continued on DuoNeb inhalations. Anticoagulated with Eliquis. Continued on IV diuretics. Currently in a -1.9 L output. The patient is seen today 07/14/2022 in follow-up on the regular medical floor. She is currently sitting up in bed. Awake and alert in no acute distress. She is currently maintaining O2 saturations in the 90s on 3 L/m per nasal cannula. She's been afebrile. Hemodynamically stable. She has received 1 unit of packed red blood cells this admission. Most recent hemoglobin 7.3. Sodium 143. Potassium 4.7. BUN 29. Creatinine 1.3. She is continued on DuoNeb inhalations. On oral Lasix. Anticoagulated with Eliquis. The patient is seen today 07/15/2022 in follow-up on the regular medical floor. She is currently resting comfortably in bed. Maintaining good O2 saturations in the high 90s on 3 L/m per nasal cannula. She's afebrile. Hemodynamically stable. Blood glucose 166. She is continued on DuoNeb inhalations. Anticoagulated with Eliquis. Objective - Vital Signs Vital signs: Vital Signs Temp 97.7 F 07/15/22 13:00 Pulse 80 07/15/22 13:00 Resp 18 07/15/22 13:00 BP 116/70 07/15/22 13:00 Pulse Ox 99 07/15/22 13:00 FiO2 35 07/15/22 07:22 Intake & Output 07/14/22 07/15/22 07/15/22 18:59 06:59 18:59 Intake Total 120 Output Total 1400 800 Balance -1400 120 -800 Intake: Oral 120 Output: Urine 1400 800 Other: Voiding Method Bedside Commode Bedside Commode External Catheter External Catheter - Exam GENERAL EXAM: Alert, 72-year-old female, on 3 L nasal cannula, comfortable in no apparent distress. HEAD: Normocephalic. EYES: Normal reaction of pupils, equal size. NOSE: Clear with pink turbinates. THROAT: No erythema or exudates. NECK: No masses, no JVD. CHEST: No chest wall deformity. LUNGS: Equal air entry with few bilateral scattered rhonchi, crackles CVS: S1 and S2 normal with no audible murmur, regular rhythm. ABDOMEN: No hepatosplenomegaly, normal bowel sounds, no guarding or rigidity. SPINE: No scoliosis or deformity SKIN: No rashes or areas of ecchymosis CENTRAL NERVOUS SYSTEM: No focal deficits, tone is normal in all 4 extremities. EXTREMITIES: Changes of chronic venous stasis. There is 1-2+ peripheral edema. No clubbing, no cyanosis. Peripheral pulses are intact. - Labs CBC & Chem 7: 07/13/22 05:21 07/14/22 06:00 Labs: Abnormal Lab Results - Last 24 Hours (Table) 07/14/22 07/15/22 07/15/22 Range/Units 20:58 07:32 12:11 POC Glucose (mg/dL) 218 H 156 H 166 H (70-110) mg/dL Assessment and Plan Assessment: Acute on chronic hypoxic respiratory failure secondary to an acute exacerbation of diastolic congestive heart failure Acute on chronic hypercapnic respiratory failure secondary to above Morbid obesity with a BMI of 60 kg per metered square Obstructive sleep apnea Chronic atrial fibrillation anticoagulated with Eliquis Hyperlipidemia Hypertension Hypothyroidism Coronary artery disease with previous coronary artery bypass grafting 2 in 1996 History of depression Chronic back pain History of gout Chronic stage III kidney disease Diabetes mellitus Diabetic neuropathy Nonsmoker Chronic anemia with a drop in hemoglobin to 6.8, 1 unit of packed red blood cells received this admission Poor overall functional performance based on the above-mentioned multiple comorbidities Plan: The patient was seen and evaluated Medications reviewed Plan is for transfer to [facility] upon discharge Stable and on 3 L of oxygen I have personally seen and examined the patient, performed the documentation and the assessment and plan as written. Number of minutes spent on the visit: 10. This is a joint evaluation that was done along with ORACLE TECHNICAL DEVELOPER. The patient was seen and evaluated personally. I reviewed and discussed the the above-mentioned plan with the patient and the ORACLE TECHNICAL DEVELOPER. This evaluation was done in more than 20 minutes. I agree to the above-mentioned evaluation, information and planning.
[2022-07-15 17:39] LABS: Glucose,Whole Blood 93 mg/dL (70-110)
[2022-07-15 20:20] LABS: Glucose,Whole Blood 113 mg/dL (70-110)
[2022-07-15] MEDS: MIRTAZAPINE 15 MG TAB PO SCH (21:11)
[2022-07-15] MEDS: ATORVASTATIN 40 MG TAB PO SCH (21:11)
[2022-07-16] MEDS: ACETAMINOPHEN TAB 325 MG TAB PO PRN (01:50)
[2022-07-16] MEDS: LEVOTHYROXINE 100 MCG TAB PO SCH (06:31)
[2022-07-16 06:58] LABS: Glucose,Whole Blood 142 mg/dL (70-110)
[2022-07-16] MEDS: GABAPENTIN 300 MG CAP PO SCH (07:55)
[2022-07-16] MEDS: ISOSORBIDE MONONITRATE ER 30 MG TAB.ER.24H PO SCH (07:55)
[2022-07-16] MEDS: INSULIN DETEMIR (LEVEMIR) 100 UNIT/ML SYR SQ SCH (07:55)
[2022-07-16] MEDS: INSULIN ASPART (NovoLOG) 100 UNIT/ML VIAL SQ SCH ×2 (07:55→13:00)
[2022-07-16] MEDS: APIXABAN 5 MG TAB PO SCH (07:56)
[2022-07-16] MEDS: FUROSEMIDE 40 MG TAB PO SCH (07:56)
[2022-07-16] MEDS: PANTOPRAZOLE 40 MG TABLET PO SCH (07:56)
[2022-07-16] MEDS: OXYBUTYNIN CHLORIDE 5 MG TAB PO SCH (07:56)
[2022-07-16] MEDS: SODIUM FERRIC GLUCONAT-SUCROSE 125 MG in SODIUM CHLORIDE 0.9% 100 ML IVPB SCH (08:23)
[2022-07-16] MEDS: IPRATROPIUM-ALBUTEROL 3 ML NEB INHALATION SCH ×2 (08:45→12:43)
[2022-07-16] MEDS ORDERED: METOPROLOL SUCCINATE (ER) 50 MG TAB.ER.24H PO SCH (09:00)
--- NOTE | 2022-07-16 11:58 | P.PN ---
Subjective Progress Note Date: 07/16/22 This a 72-year-old female patient with a known history of chronic hypoxemic and hypercapnic respiratory failure. Chest has a history of coronary artery disease with coronary artery bypass grafting, atrial fibrillation, diabetes mellitus, hyperlipidemia, hypertension, obesity, obstructive sleep apnea, hypothyroidism, diabetic retinopathy and diabetic neuropathy, gout, stage III kidney disease. She had recently been discharged from here in May to [facility] on the [place]. She has since been discharged home. She presented here to the emergency room early this morning with worsening shortness of breath. Chest x-ray is somewhat limited due to her large body habitus. There is moderate cardiomegaly and continued interstitial pulmonary edema. Small bilateral effusions. She is currently in atrial fibrillation with a controlled ventricular rate. White count 6.4. Hemoglobin 7.5. Platelets 184. Sodium 143. Potassium 5.4. Chloride 109. Bicarb 31. BUN 35. Creatinine 1.33. ProBNP 3960. Troponin negative. Odell virus screen negative. Influenza screen negative. She was initially on oxygen at 3 L/m per nasal cannula. She is currently seen in the emergency department in consultation. S he's on BiPAP 12/6 and 35% FiO2. She has lower extremity edema. She is somewhat lethargic. She has basilar crackles. She's been initiated on Lasix 40 mg IV every 12 hours. Anticoagulated with Eliquis. Progress note dated 07/10/2022. This is a 72-year-old female well-known to our service. She has a history of chronic hypoxemic and hypercapnic respiratory failure, primarily secondary to CHF. She was seen by me in the emergency department yesterday, trauma room 2. At that time, she was on BiPAP. She is being admitted to the hospital. She's currently seen today in room 615. No new labs today as yet. Labs July 09 are reviewed. X-rays were reviewed. She's had 6 admissions to this hospital this year already. She remains on BiPAP, at 35%. Vital signs are stable including a temperature of 98, heart rate 93, respiratory rate 19, and blood pressure 120/67. BiPAP settings include 12/6 and 35%. The patient is seen today 07/11/2022 in follow-up on the regular medical floor. She is currently sitting up. Awake and alert in no acute distress. She is on 3 L nasal cannula. She's alternating with BiPAP 12/6 and 35% FiO2. No IV fluids. She is afebrile. She did have a drop in hemoglobin to 6.8. White count 6.4. Platelets 175. Sodium 142. Potassium 5.5. Glucose 154. BUN 33. Creatinine 1.5. One unit of packed red blood cells have been ordered. If she is continued on DuoNeb inhalations. Anticoagulated with Eliquis. Continued on IV diuretics. Currently in a -1.9 L output. The patient is seen today 07/14/2022 in follow-up on the regular medical floor. She is currently sitting up in bed. Awake and alert in no acute distress. She is currently maintaining O2 saturations in the 90s on 3 L/m per nasal cannula. She's been afebrile. Hemodynamically stable. She has received 1 unit of packed red blood cells this admission. Most recent hemoglobin 7.3. Sodium 143. Potassium 4.7. BUN 29. Creatinine 1.3. She is continued on DuoNeb inhalations. On oral Lasix. Anticoagulated with Eliquis. The patient is seen today 07/15/2022 in follow-up on the regular medical floor. She is currently resting comfortably in bed. Maintaining good O2 saturations in the high 90s on 3 L/m per nasal cannula. She's afebrile. Hemodynamically stable. Blood glucose 166. She is continued on DuoNeb inhalations. Anticoagulated with Eliquis. The patient is seen today 07/16/2022 in follow-up on the regular medical floor. She is currently resting comfortably in bed. Awake and alert in no acute distress. Currently maintaining good O2 saturations in the upper 90s on 3 L nasal cannula. Afebrile. Hemodynamically stable. She does not utilize the BiPAP at night 12/6 and 35% FiO2. She is continued on DuoNeb inhalations. Anticoagulated with Eliquis. Blood glucose 142. Objective - Vital Signs Vital signs: Vital Signs Temp 98.2 F 07/16/22 04:29 Pulse 92 07/16/22 08:58 Resp 15 07/16/22 04:29 BP 123/54 07/16/22 04:29 Pulse Ox 98 07/16/22 04:29 FiO2 35 07/16/22 03:00 Intake & Output 07/15/22 07/16/22 07/16/22 18:59 06:59 18:59 Intake Total 100 118 Output Total 800 1350 Balance -700 -1232 Weight 142 kg Intake: Intake, IV Titration 100 Amount Sodium Ferric Gluconat- 100 Sucrose 125 mg In Sodium Chloride 0.9% 100 ml @ 100 mls/hr IVPB DAILY [facility] Rx#:[id number] Oral 118 Output: Urine 800 1350 Other: Voiding Method Bedside Commode Bedside Commode External Catheter External Catheter - Exam GENERAL EXAM: Alert, very pleasant 72-year-old female, on 3 L nasal cannula, comfortable in no apparent distress. HEAD: Normocephalic. EYES: Normal reaction of pupils, equal size. NOSE: Clear with pink turbinates. THROAT: No erythema or exudates. NECK: No masses, no JVD. CHEST: No chest wall deformity. LUNGS: Equal air entry with few bilateral scattered rhonchi, crackles CVS: S1 and S2 normal with no audible murmur, regular rhythm. ABDOMEN: No hepatosplenomegaly, normal bowel sounds, no guarding or rigidity. SPINE: No scoliosis or deformity SKIN: No rashes or areas of ecchymosis CENTRAL NERVOUS SYSTEM: No focal deficits, tone is normal in all 4 extremities. EXTREMITIES: Changes of chronic venous stasis. There is 1-2+ peripheral edema. No clubbing, no cyanosis. Peripheral pulses are intact. - Labs CBC & Chem 7: 07/13/22 05:21 07/14/22 06:00 Labs: Abnormal Lab Results - Last 24 Hours (Table) 07/15/22 07/15/22 07/16/22 Range/Units 12:11 20:19 06:56 POC Glucose (mg/dL) 166 H 113 H 142 H (70-110) mg/dL Assessment and Plan Assessment: Acute on chronic hypoxic respiratory failure secondary to an acute exacerbation of diastolic congestive heart failure Acute on chronic hypercapnic respiratory failure secondary to above Morbid obesity with a BMI of 60 kg per metered square Obstructive sleep apnea Chronic atrial fibrillation anticoagulated with Eliquis Hyperlipidemia Hypertension Hypothyroidism Coronary artery disease with previous coronary artery bypass grafting 2 in 1996 History of depression Chronic back pain History of gout Chronic stage III kidney disease Diabetes mellitus Diabetic neuropathy Nonsmoker Chronic anemia with a drop in hemoglobin to 6.8, 1 unit of packed red blood cells received this admission Poor overall functional performance based on the above-mentioned multiple comorbidities Plan: The patient was seen and evaluated Medications reviewed Plan is for transfer to ECF upon discharge She will have her son bring her home CPAP to the ECF If not, she could be on BiPAP 12/6 and 35% FiO2 throughout the night and during the day while napping I have personally seen and examined the patient, performed the documentation and the assessment and plan as written. Number of minutes spent on the visit: 10. This is a joint evaluation that was done along with the nurse practitioner. I was present during the time of evaluation. I performed evaluation along with MASTER RIGGER and I reviewed the medical records and the treatment plan. I do agree on i nformation mentioned above in the medical progress note. This information was done in more than 10 minutes.
--- NOTE | 2022-07-16 12:00 | P.PN ---
Subjective Patient is seen for follow-up for acute kidney injury on top of chronic kidney disease. She is currently sitting up in a bedside chair. No significant complaints today Good urine output Maintained on oral Lasix at 40 mg daily. Serum creatinine was 1.6 at peak and down to 1.3 Objective - Vital Signs Vital signs: Vital Signs Temp 98.2 F 07/16/22 04:29 Pulse 92 07/16/22 08:58 Resp 15 07/16/22 04:29 BP 123/54 07/16/22 04:29 Pulse Ox 98 07/16/22 04:29 FiO2 35 07/16/22 03:00 Intake & Output 07/15/22 07/16/22 07/16/22 18:59 06:59 18:59 Intake Total 100 118 Output Total 800 1350 Balance -700 -1232 Weight 142 kg Intake: Intake, IV Titration 100 Amount Sodium Ferric Gluconat- 100 Sucrose 125 mg In Sodium Chloride 0.9% 100 ml @ 100 mls/hr IVPB DAILY [facility] Rx#:[id number] Oral 118 Output: Urine 800 1350 Other: Voiding Method Bedside Commode Bedside Commode External Catheter External Catheter - Exam Awake, comfortable, no acute distress Examination of the heart S1 and S2 Examination lungs bilateral breath sounds are heard Abdomen is soft nontender Examination lower extremities shows chronic skin changes. No significant edema noted BLADE GRADER OPERATOR exam grossly intact - Labs CBC & Chem 7: 07/13/22 05:21 07/14/22 06:00 Labs: Abnormal Lab Results - Last 24 Hours (Table) 07/15/22 07/15/22 07/16/22 Range/Units 12:11 20:19 06:56 POC Glucose (mg/dL) 166 H 113 H 142 H (70-110) mg/dL Assessment and Plan Assessment: 1. Acute kidney injury mostly prerenal secondary to cardiorenal syndrome and a nemia. Creatinine peaked at 1.6 this admission and is 1.3. 2. Chronic kidney disease stage III at baseline creatinine in the range of 1.1- 1.3 secondary to nephrosclerosis. UA benign. Renal ultrasound from April 2022 showed no evidence of hydronephrosis. 3. Volume overload. 4. Acute on chronic systolic CHF with ejection fraction of 45-50% with moderate pulmonary hypertension. 5. Diabetes mellitus. 6. Acute blood loss anemia status post blood transfusion this admission. Hemoglobin 7.3 on 07/13/2022. Maintained on IV iron for severe iron deficiency. Plan: IV iron Follow-up on hemoglobin Continue current dose of Lasix
[2022-07-16 12:01] LABS: Glucose,Whole Blood 56 mg/dL (70-110)
[2022-07-16 12:21] LABS: Glucose,Whole Blood 79 mg/dL (70-110)
[2022-07-16 12:41] VITALS: BP 135/71; RESP 18; TEMP 97.5
[2022-07-16 12:54] VITALS: PULSE 88
== END 2022-07-16 13:50 | DRG 291 ==
LOC: EC 06:00 → 6NMEDSUR 11:46 → 3SCARD 07-10 08:09 → 5NMEDONC 07-10 10:22 → OBSVTOIN 07-10 13:00
PROVIDERS: ADMIT Family Medicine; ATTEND Family Medicine
PROC: 30233N1 Transfusion of Nonautologous Red Blood Cells into Peripheral Vein, Percutaneous Approach (ICD-10-PCS; principal; 2022-07-10)
PROC: 3E0F7SF Introduction of Other Gas into Respiratory Tract, Via Natural or Artificial Opening (ICD-10-PCS; 2022-07-10)
PROC: 5A09557 Assistance with Respiratory Ventilation, Greater than 96 Consecutive Hours, Continuous Positive Airway Pressure (ICD-10-PCS; 2022-07-10)
DX: I13.0 Hypertensive heart and chronic kidney disease with heart failure and stage 1 through stage 4 chronic kidney disease, or unspecified chronic kidney disease (principal); I50.43 Acute on chronic combined systolic (congestive) and diastolic (congestive) heart failure; J96.21 Acute and chronic respiratory failure with hypoxia; J96.22 Acute and chronic respiratory failure with hypercapnia; D62 Acute posthemorrhagic anemia; I48.21 Permanent atrial fibrillation; Z68.44 Body mass index [BMI] 60.0-69.9, adult; F33.1 Major depressive disorder, recurrent, moderate; N17.9 Acute kidney failure, unspecified; Z79.01 Long term (current) use of anticoagulants; G47.33 Obstructive sleep apnea (adult) (pediatric); Z86.16 Personal history of COVID-19; Z87.01 Personal history of pneumonia (recurrent); E66.01 Morbid (severe) obesity due to excess calories; Z98.84 Bariatric surgery status; E03.9 Hypothyroidism, unspecified; Z79.890 Hormone replacement therapy; I27.20 Pulmonary hypertension, unspecified; N18.30 Chronic kidney disease, stage 3 unspecified; E11.22 Type 2 diabetes mellitus with diabetic chronic kidney disease; G89.29 Other chronic pain; M54.9 Dorsalgia, unspecified; I25.10 Atherosclerotic heart disease of native coronary artery without angina pectoris; I08.2 Rheumatic disorders of both aortic and tricuspid valves; Z95.1 Presence of aortocoronary bypass graft; D50.9 Iron deficiency anemia, unspecified; E11.319 Type 2 diabetes mellitus with unspecified diabetic retinopathy without macular edema; E11.41 Type 2 diabetes mellitus with diabetic mononeuropathy; M19.90 Unspecified osteoarthritis, unspecified site; M10.9 Gout, unspecified; E78.2 Mixed hyperlipidemia; E87.5 Hyperkalemia; H54.7 Unspecified visual loss; K29.70 Gastritis, unspecified, without bleeding; Z20.822 Contact with and (suspected) exposure to COVID-19; Z79.4 Long term (current) use of insulin; Z98.41 Cataract extraction status, right eye; Z87.440 Personal history of urinary (tract) infections; Z79.52 Long term (current) use of systemic steroids; Z79.899 Other long term (current) drug therapy; Z87.11 Personal history of peptic ulcer disease; Z87.19 Personal history of other diseases of the digestive system; Z90.710 Acquired absence of both cervix and uterus; Z90.49 Acquired absence of other specified parts of digestive tract; Z88.6 Allergy status to analgesic agent; Z88.0 Allergy status to penicillin; Z95.5 Presence of coronary angioplasty implant and graft
CPT/HCPCS: 36415; 71046; 80048; 80053; 81003; 82728; 83540; 83550; 83605; 83735; 83880; 84439; 84443; 84484; 85025; 85379; 85610; 85730; 86850; 86870; 86880; 86900; 86901; 86920; 87502; 87635; 93005; 94640; 94660; 94760; 96374; 96376; 99285

== ENCOUNTER → 2022-08-24 | Outpatient (CLI) | payer MEDICARE, OTHER | END | disposition home or self-care (01) | LOC: LABMAIN 17:46 | PROVIDERS: ATTEND Family Medicine | DX: Z53.9 Procedure and treatment not carried out, unspecified reason (principal) ==

== ENCOUNTER → 2022-08-25 | Outpatient (CLI) | payer MEDICARE, OTHER | END | disposition home or self-care (01) | LOC: LABWHC1 15:18 | PROVIDERS: ATTEND Family Medicine | DX: D64.9 Anemia, unspecified (principal); E86.1 Hypovolemia; R19.5 Other fecal abnormalities | CPT/HCPCS: 86850; 86900; 86901 ==

== ENCOUNTER 2022-12-16 20:34 | Inpatient (IN) | payer MEDICARE, OTHER ==
[2022-12-16 20:42] LABS: Glucose,Whole Blood 39 mg/dL (70-110)
[2022-12-16 21:41] LABS: Glucose,Whole Blood 65 mg/dL (70-110)
[2022-12-16 22:55] LABS: Anisocytosis Slight; Basophils % (A) 0 %; Eosinophils # (A) 0.1 k/uL (0-0.7); Eosinophils % (A) 2 %; HCT 28.6 % (34.0-46.0); Hypochromasia Moderate; Lymphocytes # (A) 0.4 k/uL (1.0-4.8); Lymphocytes % (A) 8 %; MCH 28.3 pg (25.0-35.0); MCHC 31.5 g/dL (31.0-37.0); MCV 89.9 fL (80.0-100.0); Mean Platelet Volume 8.6; Monocytes # (A) 0.3 k/uL (0-1.0); Monocytes % (A) 6 %; Neutrophils # (A) 4.7 k/uL (1.3-7.7); Neutrophils % (A) 82 %; Platelet Count 149 k/uL (150-450); RBC 3.18 m/uL (3.80-5.40); RDW 17.6 % (11.5-15.5); WBC 5.7 k/uL (3.8-10.6)
[2022-12-16 23:02] LABS: Glucose,Whole Blood 102 mg/dL (70-110)
[2022-12-16 23:10] LABS: Albumin 3.8 g/dL (3.5-5.0); Magnesium 2.4 mg/dL (1.6-2.3); Potassium 4.3 mmol/L (3.5-5.1); Total Bilirubin 1.1 mg/dL (0.2-1.3); Total Protein 7.3 g/dL (6.3-8.2)
[2022-12-16 23:24] LABS: Appearance,Urine Clear (Clear); Bacteria,Urine Few /hpf; Bilirubin,Urine Negative (Negative); Blood,Urine Negative (Negative); Color,Urine Yellow; Glucose,Urine (UA) Negative (Negative); Hyaline Casts,Urine 11 /lpf (0-2); Ketones,Urine Negative (Negative); Leukocyte Esterase,Urine Negative (Negative); Mucus,Urine Rare /hpf; Nitrite,Urine Positive (Negative); Protein,Urine Negative (Negative); RBC,Urine <1 /hpf (0-5); Specific Gravity,Urine 1.011 (1.001-1.035); Squamous Epithelial Cell,Urine <1 /hpf (0-4); Urobilinogen,Urine <2.0 mg/dL (<2.0); WBC,Urine 2 /hpf (0-5)
--- NOTE | 2022-12-16 23:30 | XR ---
EXAMINATION TYPE: XR chest 2V DATE OF EXAM: 12/16/2022 COMPARISON: Chest x-ray July 12, 2022 HISTORY: Chest pain TECHNIQUE: Frontal and lateral views of the chest are obtained. FINDINGS: Overlying sternal wires and mediastinal clips are redemonstrated. There is persistent card iomegaly with increasing bilateral central opacities. The osseous structures are intact. IMPRESSION: Findings suggest CHF exacerbation as there is cardiomegaly with new moderate central alexandra eolar edema suspected.
--- NOTE | 2022-12-16 23:33 | XR ---
EXAMINATION TYPE: XR lumbar spine 2 or 3V DATE OF EXAM: 12/16/2022 CLINICAL HISTORY: Fall injury with pain TECHNIQUE: Frontal and lateral images of the lumbar spine are obtained. COMPARISON: CT lumbar spine June 13, 2019 FINDINGS: There are 5 lumbar type vertebral bodies redemonstrated. The lumbar spine redemonstrates dextroconvex scoliosis along with grade 1 anterolisthesis L4 on L5. Vertebral body heights are mainta ined. Multilevel [id number] disc space narrowing with endplate sclerosis at the L3-L4 level. Mi [id number] multilevel anterior and lateral spurring. Overlying lap band is partially imaged. Mild overlying arterial vascular calcification. IMPRESSION: As above.
--- NOTE | 2022-12-16 23:34 | XR ---
EXAMINATION TYPE: XR thoracic spine complete DATE OF EXAM: 12/16/2022 CLINICAL HISTORY: Fall with mid back pain. TECHNIQUE: Frontal, lateral, and swimmer's view of thoracic spine are obtained. COMPARISON: None. FINDINGS: Thoracic spine show exaggerated kyphosis without evidence of acute fracture or dislocation. Vertebral body heights and disc space heights are preserved. Multilevel spurring is present. Visual ized ribs are intact bilaterally. Lap band device is partially imaged. IMPRESSION: As above.
[2022-12-17 01:07] LABS: Glucose,Whole Blood 118 mg/dL (70-110)
[2022-12-17] MEDS ORDERED: FUROSEMIDE 10 MG/ML 4 ML VIAL IV STA (01:15)
[2022-12-17 02:48] LABS: Glucose,Whole Blood 108 mg/dL (70-110)
--- NOTE | 2022-12-17 03:26 | ED ---
General Adult HPI - General Chief complaint: Fall Stated complaint: fall,hypoglycemia Time Seen by Provider: 12/16/22 21:34 Source: patient, EMS Mode of arrival: ambulatory Limitations: no limitations - History of Present Illness Initial comments: This is a 72-year-old female with a past mental history including congestive heart failure, diabetes as well as hypertension presents emergency department for hypoglycemia via EMS. The patient reported that she had low blood sugar at home and did fall down to the ground requiring EMS to come get her and pick her up to come to the emergency department. The patient did state that she has not eaten any food throughout the day and checked her blood sugar before her son left and was 95. The patient then proceeded to use her 30 units of short-acting insulin despite not eating and having a blood sugar of 95. The patient on arrival did state that she had pain in the right side of the lower back but jesica ed hitting her head. On evaluation, the patient only had pain to the right lateral aspect of her back without any pain or trauma to the head. The patient also denied any numbness or tingling in the extremities as well as any urinary or fecal incontinence. - Related Data Home Medications Medication Instructions Recorded Confirmed Atorvastatin [Lipitor] 40 mg PO HS 08/10/16 08/26/22 Isosorbide Mononitrate [Isosorbide 30 mg PO DAILY 08/10/16 08/26/22 Mononitrate ER] Oxybutynin Chloride 5 mg PO BID 08/10/16 08/26/22 Mirtazapine [Remeron] 15 mg PO HS 04/12/22 08/26/22 Acetaminophen Tab [Tylenol] 650 mg PO Q6H PRN 05/08/22 08/26/22 Docusate [Colace] 100 mg PO DAILY PRN 05/08/22 08/26/22 Omeprazole [PriLOSEC] 20 mg PO DAILY 05/22/22 08/26/22 Apixaban [Eliquis] 5 mg PO BID 07/09/22 08/26/22 INSULIN ASPART (NovoLOG) [NovoLOG 35 - 40 unit SQ AC-TID 07/09/22 08/26/22 (formulary)] Insulin Detemir (Levemir) [Levemir] 55 - 60 unit SQ BID 07/09/22 08/26/22 polyethylene glycoL 3350 [Miralax] 17 gm PO DAILY PRN 07/09/22 08/26/22 Previous Rx's Medication Instructions Recorded Furosemide [Lasix] 40 mg PO DAILY #30 tab 07/14/22 Gabapentin [Neurontin] 300 mg PO BID #6 cap 07/14/22 Levothyroxine Sodium [Synthroid] 100 mcg PO DAILY@0630 #30 tab 07/14/22 Metoprolol Succinate (ER) [Toprol 50 mg PO DAILY #30 tab 07/15/22 Xl] Allergies Allergy/AdvReac Type Severity Reaction Status Date / Time ibuprofen [From Motrin] Allergy Rash/Hives Verified 07/09/22 11:13 Penicillins Allergy Anaphylaxis Verified 07/09/22 11:13 Review of Systems ROS Statement: Those systems with pertinent positive or pertinent negative responses have been documented in the HPI. ROS Other: All systems not noted in ROS Statement are negative. Past Medical History Past Medical History: Atrial Fibrillation, Coronary Artery Disease (CAD), Diabetes Mellitus, Eye Disorder, Hyperlipidemia, Hypertension, Osteoarthritis (OA), Pneumonia, Renal Disease, Sleep Apnea/CPAP/BIPAP, Thyroid Disorder Additional Past Medical History / Comment(s): Pt recently admitted to [facility] on 05/08/22 with anemia/had EGD and colonoscopy which showed nonbleeding stomach ul cer/diverticular disease and colon polyp, pt received blood transfusions. Other hx: 02/12/22 covid/pneumonia/sepsis, other past pneumonias, acute hypoxic respiratory failure/now on home oxygen ATC, new A fib with RVR, IDDM type II, neuropathy bilateral feet, L eye retinal bleed/lasik eye surgery, R eye cataract, bilateral eye macular degeneration/gets injections/poor vision, CKD stage III, anemia, UTI/sepsis, bilateral leg lymphedema, FLORES/does not have cpap machine at this time, diverticulitis, gout, chronic back pain, rheumatic fever, hypothyroid. History of Any Multi-Drug Resistant Organisms: ESBL Date of last positivie culture/infection: 05/22/22 ESBL Klebsiella MDRO Source:: Urine Past Surgical History: Bariatric Surgery, Section, Cholecystectomy, Coronary Bypass/CABG, Heart Catheterization, Hysterectomy, Orthopedic Surgery, Tonsillectomy Additional Past Surgical History / Comment(s): EGD, colonoscopy, 2 vessel CABG in 1996, bilateral carpal tunnel release, lap band, L eye laser surgery, Past Anesthesia/Blood Transfusion Reactions: No Reported Reaction Past Psychological History: Depression Smoking Status: Never smoker - Past Family History Father Family Medical History: Cancer, Coronary Artery Disease (CAD), Diabetes Mellitus Additional Family Medical History / Comment(s): Prostate cancer Mother Family Medical History: Cancer Additional Family Medical History / Comment(s): Bone cancer. General Exam Limitations: no limitations General appearance: alert, in no apparent distress, obese Head exam: Present: atraumatic, normocephalic, normal inspection Eye exam: Present: normal appearance, PERRL Pupils: Present: normal accommodation ENT exam: Present: normal exam, normal oropharynx, mucous membranes moist Neck exam: Present: normal inspection, full ROM Respiratory exam: Present: normal lung sounds bilaterally Cardiovascular Exam: Present: regular rate, normal rhythm, normal heart sounds GI/Abdominal exam: Present: soft, normal bowel sounds Extremities exam: Present: normal inspection, full ROM, pedal edema Back exam: Present: normal inspection, full ROM Neurological exam: Present: alert, oriented X3, CN II-XII intact Psychiatric exam: Present: normal affect, normal mood Skin exam: Present: warm, dry Course Vital Signs 12/16/22 12/16/22 12/16/22 20:40 22:44 23:17 Temperature 96.9 F L Pulse Rate 53 L 62 Respiratory 16 16 Rate Blood Pressure 135/53 O2 Sat by Pulse 95 98 94 L Oximetry 12/17/22 02:03 Temperature Pulse Rate 64 Respiratory 18 Rate Blood Pressure 190/78 O2 Sat by Pulse 95 Oximetry EKG Findings - EKG Comments: EKG Findings:: In EKG was obtained and was interpreted by myself showing a rate of 56, QRS duration 189 and QTC of 500. This EKG did show a normal sinus rhythm however there was significant motion artifact secondary to patient's respiratory status. There was however no ST segment elevation or depression noted. There was a right bundle branch block. This is similar to her previous EKG performed in July 2022. Medical Decision Making - Medical Decision Making Was pt. sent in by a medical professional or institution (, PA, DAIRY MANAGEMENT SPECIALIST, urgent care, hospital, or snf...) When possible be specific @ -No Did you speak to anyone other than the patient for history (EMS, parent, family, police, friend...)? What history was obtained from this source @ -Yes, patient's son was at the bedside and did confirm the history that the patient had low blood sugar and then did have a syncopal episode. Did you review nursing and triage notes (agree or disagree)? Why? @ -I reviewed and agree with nursing and triage notes Were old charts reviewed (outside hosp., previous admission, EMS record, old EKG, old radiological studies, urgent care reports/EKG's, snf records)? Report findings @ -No old charts were reviewed Differential Diagnosis (chest pain, altered mental status, abdominal pain women, abdominal pain men, vaginal bleeding, weakness, fever, dyspnea, syncope, headache, dizziness, GI bleed, back pain, seizure, CVA, palpatations, mental health)? @ -Hypoglycemia, CHF exacerbation, pneumonia, pneumothorax EKG interpreted by me (3pts min.). @ -As above X-rays interpreted by me (1pt min.). @ -Chest x-ray, lumbar x-ray and thoracic spine x-ray were obtained and were interpreted by myself. X-ray of the chest showed findings that suggest CHF exacerbation as there is cardiomegaly with new moderate central alveolar edema suspected. Lumbar spine x-ray showed no acute fractures noted however there was grade 1 anterolisthesis of L4 and L5. The vertebral body heights were maintained. Thoracic spine x-ray showed exaggerated kyphosis without any evidence of acute fracture or dislocation. CT interpreted by me (1pt min.). @ -None done U/S interpreted by me (1pt. min.). @ -None done What testing was considered but not performed or refused? (CT, X-rays, U/S, labs)? Why? @ -None What meds were considered but not given or refused? Why? @ -None Did you discuss the management of the patient with other professionals (professionals i.e. Dr., PA, DAIRY MANAGEMENT SPECIALIST, lab, RT, psych nurse, social insurance analyst, dealership general manager, teacher, mortgage loan officer originator, caseworker protective services)? Give summary @ -Yes, admitting physician was contacted regarding patient admission. Was smoking cessation discussed for >3mins.? @ -No Was critical care preformed (if so, how long)? @ -No Were there social determinants of health that impacted care today? How? (Homelessness, low income, unemployed, alcoholism, drug addiction, transportation, low edu. Level, literacy, decrease access to med. care, nursing home, rehab)? @ -No Was there de-escalation of care discussed even if they declined (Discuss DNR or withdrawal of care, Hospice)? DNR status @ -No What co-morbidities impacted this encounter? (DM, HTN, Smoking, COPD, CAD, Cancer, CVA, ARF, Chemo, Hep., AIDS, mental health diagnosis, sleep apnea, morbid obesity)? @ -Diabetes, hypertension, CHF and morbid obesity Was patient admitted / discharged? Hospital course, mention meds given and route, prescriptions, significant lab abnormalities, going to OR and other pertinent info. @ -The patient was seen and evaluated in emergency department. On physical exam, the patient was resting in bed without any acute distress. Vital signs admission were stable. The patient did have hypoglycemia noted on arrival however was corrected with juice and food in the emergency department. The patient continued to remain stable and denied of any further significant hypoglycemic episodes. The patient's troponin was elevated as was the patient's proBNP. Both levels were not as severely elevated as it had been in the past however due to the patient's symptoms, the patient will be treated for an NSTEMI , placed on IV heparin, as well as a CHF exacerbation. The patient will be admitted for further workup and evaluation. The patient was agreeable to this as was her son. All other questions were answered appropriate. The patient was admitted in stable condition. Undiagnosed new problem with uncertain prognosis? @ -No Drug Therapy requiring intensive monitoring for toxicity (Heparin, Nitro, Insulin, Cardizem)? @ -Heparin Were any procedures done? @ -No Diagnosis/symptom? @ -NSTEMI, CHF exas, hypoglycemia Acute, or Chronic, or Acute on Chronic? @ -Acute Uncomplicated (without systemic symptoms) or Complicated (systemic symptoms)? @ -Complicated Side effects of treatment? @ -No Exacerbation, Progression, or Severe Exacerbation? @ -No Poses a threat to life or bodily function? How? (Chest pain, [place], [place], pneumonia, PE, COPD, DKA, ARF, appy, cholecystitis, CVA, Diverticulitis, Homicidal, Suicidal, threat to staff... and all critical care pts) @ -Yes, continued ACS and CHF as well as having glycemic episodes can lead to permanent damage and possible . - Lab Data Result diagrams: 12/16/22 22:42 12/16/22 22:42 Lab Results 12/16/22 12/16/22 12/16/22 Range/Units 20:41 21:30 22:42 WBC 5.7 (3.8-10.6) k/uL RBC 3.18 L (3.80-5.40) m/uL Hgb 9.0 L (11.4-16.0) gm/dL Hct 28.6 L (34.0-46.0) % MCV 89.9 (80.0-100.0) fL MCH 28.3 (25.0-35.0) pg MCHC 31.5 (31.0-37.0) g/dL RDW 17.6 H (11.5-15.5) % Plt Count 149 L (150-450) k/uL MPV 8.6 Neutrophils % 82 % Lymphocytes % 8 % Monocytes % 6 % Eosinophils % 2 % Basophils % 0 % Neutrophils # 4.7 (1.3-7.7) k/uL Lymphocytes # 0.4 L (1.0-4.8) k/uL Monocytes # 0.3 (0-1.0) k/uL Eosinophils # 0.1 (0-0.7) k/uL Basophils # 0.0 (0-0.2) k/uL Hypochromasia Moderate Anisocytosis Slight Sodium (137-145) mmol/L Potassium (3.5-5.1) mmol/L Chloride (98-107) mmol/L Carbon Dioxide (22-30) mmol/L Anion Gap mmol/L BUN (7-17) mg/dL Creatinine (0.52-1.04) mg/dL Est GFR (CKD-EPI)AfAm (>60 ml/min/1.73 sqM) Est GFR (CKD-EPI)NonAf (>60 ml/min/1.73 sqM) Glucose (74-99) mg/dL POC Glucose (mg/dL) 39 L 65 L (70-110) mg/dL POC Glu Electrician Supervisor Substation ID Holly Giovanni Duttaaggie Bernie Calcium (8.4-10.2) mg/dL Magnesium (1.6-2.3) mg/dL Total Bilirubin (0.2-1.3) mg/dL AST (14-36) U/L ALT (4-34) U/L Alkaline Phosphatase (38-126) U/L Troponin I (0.000-0.034) ng/mL NT-Pro-B Natriuret Pep pg/mL Total Protein (6.3-8.2) g/dL Albumin (3.5-5.0) g/dL Lipase (23-300) U/L Urine Color Urine Appearance (Clear) Urine pH (5.0-8.0) Ur Specific [place] (1.001-1.035) Urine Protein (Negative) Urine Glucose (UA) (Negative) Urine Ketones (Negative) Urine Blood (Negative) Urine Nitrite (Negative) Urine Bilirubin (Negative) Urine Urobilinogen (<2.0) mg/dL Ur Leukocyte Esterase (Negative) Urine RBC (0-5) /hpf Urine WBC (0-5) /hpf Ur Squamous Epith Cells (0-4) /hpf Urine Bacteria (None) /hpf Hyaline Casts (0-2) /lpf Urine Mucus (None) /hpf 12/16/22 12/16/22 12/16/22 Range/Units 22:42 22:42 22:42 WBC (3.8-10.6) k/uL RBC (3.80-5.40) m/uL Hgb (11.4-16.0) gm/dL Hct (34.0-46.0) % MCV (80.0-100.0) fL MCH (25.0-35.0) pg MCHC (31.0-37.0) g/dL RDW (11.5-15.5) % Plt Count (150-450) k/uL MPV Neutrophils % % Lymphocytes % % Monocytes % % Eosinophils % % Basophils % % Neutrophils # (1.3-7.7) k/uL Lymphocytes # (1.0-4.8) k/uL Monocytes # (0-1.0) k/uL Eosinophils # (0-0.7) k/uL Basophils # (0-0.2) k/uL Hypochromasia Anisocytosis Sodium 141 (137-145) mmol/L Potassium 4.3 (3.5-5.1) mmol/L Chloride 101 (98-107) mmol/L Carbon Dioxide 29 (22-30) mmol/L Anion Gap 11 mmol/L BUN 54 H (7-17) mg/dL Creatinine 1.85 H (0.52-1.04) mg/dL Est GFR (CKD-EPI)AfAm 31 (>60 ml/min/1.73 sqM) Est GFR (CKD-EPI)NonAf 27 (>60 ml/min/1.73 sqM) Glucose 32 L* (74-99) mg/dL POC Glucose (mg/dL) (70-110) mg/dL POC Glu Electrician Supervisor Substation ID Calcium 9.0 (8.4-10.2) mg/dL Magnesium 2.4 H (1.6-2.3) mg/dL Total Bilirubin 1.1 (0.2-1.3) mg/dL AST 30 (14-36) U/L ALT 19 (4-34) U/L Alkaline Phosphatase 92 (38-126) U/L Troponin I 0.040 H* (0.000-0.034) ng/mL NT-Pro-B Natriuret Pep 2970 pg/mL Total Protein 7.3 (6.3-8.2) g/dL Albumin 3.8 (3.5-5.0) g/dL Lipase 29 (23-300) U/L Urine Color Urine Appearance (Clear) Urine pH (5.0-8.0) Ur Specific [place] (1.001-1.035) Urine Protein (Negative) Urine Glucose (UA) (Negative) Urine Ketones (Negative) Urine Blood (Negative) Urine Nitrite (Negative) Urine Bilirubin (Negative) Urine Urobilinogen (<2.0) mg/dL Ur Leukocyte Esterase (Negative) Urine RBC (0-5) /hpf Urine WBC (0-5) /hpf Ur Squamous Epith Cells (0-4) /hpf Urine Bacteria (None) /hpf Hyaline Casts (0-2) /lpf Urine Mucus (None) /hpf 12/16/22 12/16/22 12/17/22 Range/Units 22:51 23:17 00:56 WBC (3.8-10.6) k/uL RBC (3.80-5.40) m/uL Hgb (11.4-16.0) gm/dL Hct (34.0-46.0) % MCV (80.0-100.0) fL MCH (25.0-35.0) pg MCHC (31.0-37.0) g/dL RDW (11.5-15.5) % Plt Count (150-450) k/uL MPV Neutrophils % % Lymphocytes % % Monocytes % % Eosinophils % % Basophils % % Neutrophils # (1.3-7.7) k/uL Lymphocytes # (1.0-4.8) k/uL Monocytes # (0-1.0) k/uL Eosinophils # (0-0.7) k/uL Basophils # (0-0.2) k/uL Hypochromasia Anisocytosis Sodium (137-145) mmol/L Potassium (3.5-5.1) mmol/L Chloride (98-107) mmol/L Carbon Dioxide (22-30) mmol/L Anion Gap mmol/L BUN (7-17) mg/dL Creatinine (0.52-1.04) mg/dL Est GFR (CKD-EPI)AfAm (>60 ml/min/1.73 sqM) Est GFR (CKD-EPI)NonAf (>60 ml/min/1.73 sqM) Glucose (74-99) mg/dL POC Glucose (mg/dL) 102 118 H (70-110) mg/dL POC Glu Electrician Supervisor Substation ID Dinesh, Bernie Dinesh, Bernie Calcium (8.4-10.2) mg/dL Magnesium (1.6-2.3) mg/dL Total Bilirubin (0.2-1.3) mg/dL AST (14-36) U/L ALT (4-34) U/L Alkaline Phosphatase (38-126) U/L Troponin I (0.000-0.034) ng/mL NT-Pro-B Natriuret Pep pg/mL Total Protein (6.3-8.2) g/dL Albumin (3.5-5.0) g/dL Lipase (23-300) U/L Urine Color Yellow Urine Appearance Clear (Clear) Urine pH 5.0 (5.0-8.0) Ur Specific [place] 1.011 (1.001-1.035) Urine Protein Negative (Negative) Urine Glucose (UA) Negative (Negative) Urine Ketones Negative (Negative) Urine Blood Negative (Negative) Urine Nitrite Positive H (Negative) Urine Bilirubin Negative (Negative) Urine Urobilinogen <2.0 (<2.0) mg/dL Ur Leukocyte Esterase Negative (Negative) Urine RBC <1 (0-5) /hpf Urine WBC 2 (0-5) /hpf Ur Squamous Epith Cells <1 (0-4) /hpf Urine Bacteria Few H (None) /hpf Hyaline Casts 11 H (0-2) /lpf Urine Mucus Rare H (None) /hpf 12/17/22 Range/Units 02:37 WBC (3.8-10.6) k/uL RBC (3.80-5.40) m/uL Hgb (11.4-16.0) gm/dL Hct (34.0-46.0) % MCV (80.0-100.0) fL MCH (25.0-35.0) pg MCHC (31.0-37.0) g/dL RDW (11.5-15.5) % Plt Count (150-450) k/uL MPV Neutrophils % % Lymphocytes % % Monocytes % % Eosinophils % % Basophils % % Neutrophils # (1.3-7.7) k/uL Lymphocytes # (1.0-4.8) k/uL Monocytes # (0-1.0) k/uL Eosinophils # (0-0.7) k/uL Basophils # (0-0.2) k/uL Hypochromasia Anisocytosis Sodium (137-145) mmol/L Potassium (3.5-5.1) mmol/L Chloride (98-107) mmol/L Carbon Dioxide (22-30) mmol/L Anion Gap mmol/L BUN (7-17) mg/dL Creatinine (0.52-1.04) mg/dL Est GFR (CKD-EPI)AfAm (>60 ml/min/1.73 sqM) Est GFR (CKD-EPI)NonAf (>60 ml/min/1.73 sqM) Glucose (74-99) mg/dL POC Glucose (mg/dL) 108 (70-110) mg/dL POC Glu Electrician Supervisor Substation ID Bernie Montiel Calcium (8.4-10.2) mg/dL Magnesium (1.6-2.3) mg/dL Total Bilirubin (0.2-1.3) mg/dL AST (14-36) U/L ALT (4-34) U/L Alkaline Phosphatase (38-126) U/L Troponin I (0.000-0.034) ng/mL NT-Pro-B Natriuret Pep pg/mL Total Protein (6.3-8.2) g/dL Albumin (3.5-5.0) g/dL Lipase (23-300) U/L Urine Color Urine Appearance (Clear) Urine pH (5.0-8.0) Ur Specific [place] (1.001-1.035) Urine Protein (Negative) Urine Glucose (UA) (Negative) Urine Ketones (Negative) Urine Blood (Negative) Urine Nitrite (Negative) Urine Bilirubin (Negative) Urine Urobilinogen (<2.0) mg/dL Ur Leukocyte Esterase (Negative) Urine RBC (0-5) /hpf Urine WBC (0-5) /hpf Ur Squamous Epith Cells (0-4) /hpf Urine Bacteria (None) /hpf Hyaline Casts (0-2) /lpf Urine Mucus (None) /hpf Disposition Clinical Impression: NSTEMI (non-ST elevated myocardial infarction), CHF (congestive heart failure) Disposition: ADMITTED IP TO THIS [facility] Condition: Stable Is patient prescribed a controlled substance at d/c from ED?: No Time of Disposition: 00:05 Decision to Admit Reason: Admit from EC Decision Date: 12/17/22 Decision Time: 00:05
[2022-12-17] MEDS ORDERED: HEPARIN SODIUM 1,000 UN/ML (10ML VL) IV PRN (03:27)
[2022-12-17] MEDS ORDERED: HEPARIN SODIUM 1,000 UN/ML (10ML VL) IV ONE (03:27)
[2022-12-17] MEDS ORDERED: NALOXONE 0.4 MG/ML 1 ML VIAL IV PRN (03:28)
[2022-12-17] MEDS ORDERED: HEPARIN SOD,PORK IN 0.45% NACL 25,000 UNIT in 0.45% NACL 1 250ML.BAG IV SCH (03:30)
[2022-12-17 04:37] LABS: INR 1.2 (<1.2); Prothrombin Time 12.3 sec (9.0-12.0)
[2022-12-17 07:34] LABS: Glucose,Whole Blood 129 mg/dL (70-110)
[2022-12-17] MEDS: FUROSEMIDE 10 MG/ML 4 ML VIAL IV SCH ×2 (10:16→21:13)
[2022-12-17] MEDS: METOPROLOL SUCCINATE (ER) 25 MG TAB.ER.24H PO SCH (10:17)
[2022-12-17] MEDS: APIXABAN 5 MG TAB PO SCH ×2 (10:44→21:13)
--- NOTE | 2022-12-17 12:55 | CA ---
Transthoracic Echo Report Name: Faith Tapia Age: 72 Gender: F : 1950 Exam Date: 12/17/2022 09:33 Exam Location: [place] [facility] Ht (in): 65 Wt (lb): 230 Ordering Physician: Jackson Monteiro MD ([id number]) Attending/Referring Phys: Thania VELARDE Academic Affairs Dean Maria Guadalupe Zee RDCS Procedure CPT: Indications: chf Cardiac Hx: Technical Quality: Technically difficult study Contrast 1: Lumason Total Dose (mL): 4 Contrast 2: Total Dose (mL): MEASUREMENTS (Male / Female) Normal Values 2D ECHO LV Diastolic Diameter PLAX 5.0 cm 4.2 - 5.9 / 3.9 - 5.3 cm LV Systolic Diameter PLAX 3.5 cm IVS Diastolic Thickness 1.4 cm 0.6 - 1.0 / 0.6 - 0.9 cm LVPW Diastolic Thickness 1.3 cm 0.6 - 1.0 / 0.6 - 0.9 cm LV Relative Wall Thickness 0.5 RV Internal Dim ED PLAX 4.6 cm LA Volume 90.4 cm??? 18 - 58 / 22 - 52 cm??? M-MODE Aortic Root Diameter MM 3.3 cm LA Systolic Diameter MM 5.3 cm LA Ao Ratio MM 1.6 AV Cusp Separation MM 1.3 cm DOPPLER AV Peak Velocity 248.2 cm/s AV Peak Gradient 24.6 mmHg AV Mean Velocity 171.9 cm/s AV Mean Gradient 13.3 mmHg AV Velocity Time Integral 61.5 cm LVOT Peak Velocity 85.8 cm/s LVOT Peak Gradient 2.9 mmHg LVOT Velocity Time Integral 21.4 cm MV Peak Velocity 199.4 cm/s MV Peak Gradient 15.9 mmHg MV Mean Velocity 93.5 cm/s MV Mean Gradient 4.6 mmHg MV Velocity Time Integral 43.4 cm MV Area PHT 3.2 cm??? Mitral E Point Velocity 165.3 cm/s Mitral A Point Velocity 81.0 cm/s Mitral E to A Ratio 2.0 MV Deceleration Time 235.6 ms TR Peak Velocity 446.6 cm/s TR Peak Gradient 79.8 mmHg Right Ventricular Systolic Press 81.9 mmHg FINDINGS Left Ventricle Moderately increased left ventricular wall thickness. Left ventricular cavity size normal. No obvious regional wall motion abnormalities. Left ventricular ejection fraction is estimated at 55 %. Preserved systolic function Right Ventricle Severe right ventricular dilatation. Severe pulmonary hypertension. Right ventricular systolic pressure estimated at 72 mm hg. Right Atrium Right atrium not well visualized. Left Atrium Severely increased left atrial volume. Mildly increased left atrial area. Mitral Valve Severe mitral annular calcification. Moderate mitral regurgitation. Aortic Valve Aortic valve not well visualized. Mild aortic stenosis with a peak gradient of 25 mmHg and a mean gradient of 13 mmHg. Tricuspid Valve Structurally normal tricuspid valve. Severe tricuspid regurgitation. Pulmonic Valve Mild pulmonic regurgitation. Pericardium No pericardial effusion. Aorta Normal size aortic root and proximal ascending aorta. CONCLUSIONS Normal LV size preserved systolic function. Echo contrast was used 2 of pain better quality images. There is right ventricular enlargement with severe degree with severe pulmonary hypertension. Mitral annular calcification moderate mitral regurgitation. Aortic valve sclerosis gradient of about 20-25 mmHg across aortic valve which is peak gradient valve not well seen. Severe tricuspid regurgitation no pericardial effusion. Overall suboptimal quality study and technically difficult Previewed by: Dr. Bryant Weller MD (Electronically Signed) Final Date: 17 Dec 2022 12:54
--- NOTE | 2022-12-17 14:17 | CONS ---
CONSULTATION CHIEF COMPLAINT: Hypoglycemia. HISTORY OF PRESENT ILLNESS: This is a 72-year-old lady with history of congestive heart failure, diabetes, hypertension, coronary artery disease, atrial fibrillation, sleep apnea, bypass surgery, who presented to the hospital having had an episode of hypoglycemia. The patient has not eaten anything most of yesterday and took insulin following which she became she fell down to the ground and was weak and unable to do anything. She fell down and bumped the right side of her body and had some discomfort as a result, did not have any chest pain, difficulty in breathing, PND or orthopnea. She has bilateral mild leg edema. Admission labs show that the BNP is elevated at 2970. Troponin is 0.04 of unclear clinical significance, has elevated creatinine at 1.1, which could be the reason why the troponin is elevated. Cardiology had been consulted for heart failure and elevated troponin. At the time of my evaluation, the patient appears comfortable at rest. Denies any chest pain or difficulty in breathing, but the patient had shortness of breath for about 2 days on and off prior to coming in. The patient's clinical presentation is consistent with hypoglycemia and acute exacerbation of chronic congestive heart failure. She has history of atrial fibrillation and is currently on Eliquis, which I am going to continue. Has renal insufficiency which explains her elevated troponin. I will obtain a 2D echo to evaluate her LV function. PAST MEDICAL HISTORY: Significant for coronary artery disease status post CABG, persistent atrial fibrillation, hypertension, hypothyroidism, diabetes, dyslipidemia. MEDICATIONS: Include, 1. Prilosec. 2. Remeron. 3. Toprol-XL 50 mg daily. 4. Synthroid. 5. Imdur 30 mg daily. 6. Insulin. 7. Neurontin. 8. Lasix. 9. Lipitor. 10.Eliquis. ALLERGIES: The patient is allergic to penicillin and Motrin. FAMILY HISTORY: Negative for premature coronary artery disease. SOCIAL HISTORY: Negative for current smoking, EtOH abuse or drug abuse. REVIEW OF SYSTEMS: HEENT: Unremarkable. CARDIAC: As described above. RESPIRATORY: As described above. GI: Negative. GENITOURINARY: Negative. ALLERGY/IMMUNOLOGY: Negative. MUSCULOSKELETAL: As described above. PSYCHOSOCIAL: Negative. ENDOCRINE: As described above. Rest of the system review is not relevant. PHYSICAL EXAMINATION: VITAL SIGNS: The patient is afebrile. Heart rate is 80 beats per minute. Blood pressure is 145/62, respiratory rate 18, O2 saturation is 99% on 2 L. NECK: There is no jugular venous distention. CHEST: Shows diminished air entry bilaterally. HEART: Reveals first and second heart sounds, irregular rhythm and a systolic murmur at the apex. ABDOMEN: Soft. EXTREMITIES: Exam of extremities reveal mild edema bilaterally. LABORATORY DATA: Labs show that the troponin is mildly elevated. BNP is elevated. Potassium is 4.3, BUN is 54, creatinine is 1.8, hemoglobin is 9, platelet count is 149. ASSESSMENT: 1. Acute exacerbation of chronic congestive heart failure. 2. Coronary artery disease, status post coronary artery bypass grafting. 3. Persistent atrial fibrillation with controlled ventricular rate. 4. Hypoglycemia. PLAN: I will treat the patient with IV Lasix and resume the Eliquis, Toprol, Imdur and statin. We will decide on further course of action based on the echo findings and not concerned about the troponin elevation at this time. MMODL / IJN: [id number] /
[2022-12-17 16:23] LABS: Glucose,Whole Blood 239 mg/dL (70-110)
[2022-12-17] MEDS ORDERED: DEXTROSE 50% SYRINGE 50 ML IVP PRN ×2 (16:40)
[2022-12-17] MEDS: INSULIN ASPART (NovoLOG) 100 UNIT/ML VIAL SQ SCH ×2 (17:06→21:13)
--- NOTE | 2022-12-17 17:15 | P.HPIM ---
History of Present Illness H&P Date: 12/17/22 Chief Complaint: Hypoglycemia This is a 72-year-old female with known chronic hypoxic respiratory failure, multifactorial, wears 3 L nasal cannula O2 at home, past medical history significant for diastolic CHF, obstructive sleep apnea, morbid obesity, chronic kidney disease stage III persistent atrial fibrillation, CAD, diabetes mellitus and multiple other medical issues presented to the ER with complaints of hypoglycemia. Reports she had not been eating for the most part of yesterday,her blood sugar was 95 and she proceeded to take 30 units of NovoLog insulin. Became weak and fell to the ground and on right-sided, denies hitting her head. Currently complaining of right lateral back pain. Denies any numbness or tingling. Denied any urinary or stool incontinence. Denies chest pain, palpitations. Complains of increased shortness of breath 2 days. Glucose on admission 32. BNP elevated 2970, troponin 0.04, creatinine 1.185. Potassium 4.3 hemoglobin 9, platelets 149. Lumbar/thoracic Radiology studies noted. Chest x-ray reporting CHF exacerbation with [id number] central alveolar edema suspected. Review of Systems ROS Statement: Those systems with pertinent positive or pertinent negative responses have been documented in the HPI. ROS Other: All systems not noted in ROS Statement are negative. Past Medical History Past Medical History: Atrial Fibrillation, Coronary Artery Disease (CAD), Diabetes Mellitus, Eye Disorder, Hyperlipidemia, Hypertension, Osteoarthritis (OA), Pneumonia, Renal Disease, Sleep Apnea/CPAP/BIPAP, Thyroid Disorder Additional Past Medical History / Comment(s): Pt recently admitted to [facility] on 05/08/22 with anemia/had EGD and colonoscopy which showed nonbleeding stomach ulcer/diverticular disease and colon polyp, pt received blood transfusions. Other hx: 02/12/22 covid/pneumonia/sepsis, other past pneumonias, acute hypoxic respiratory failure/now on home oxygen ATC, new A fib with RVR, IDDM type II, neuropathy bilateral feet, L eye retinal bleed/lasik eye surgery, R eye cataract, bilateral eye macular degeneration/gets injections/poor vision, CKD stage III, anemia, UTI/sepsis, bilateral leg lymphedema, FLORES/does not have cpap machine at this time, diverticulitis, gout, chronic back pain, rheumatic fever, hypothyroid. History of Any Multi-Drug Resistant Organisms: ESBL Date of last positivie culture/infection: 05/22/22 ESBL Klebsiella MDRO Source:: Urine Past Surgical History: Bariatric Surgery, Section, Cholecystectomy, Coronary Bypass/CABG, Heart Catheterization, Hysterectomy, Orthopedic Surgery, Tonsillectomy Additional Past Surgical History / Comment(s): EGD, colonoscopy, 2 vessel CABG in 1996, bilateral carpal tunnel release, lap band, L eye laser surgery, Past Anesthesia/Blood Transfusion Reactions: No Reported Reaction Past Psychological History: Depression Smoking Status: Never smoker - Past Family History Father Family Medical History: Cancer, Coronary Artery Disease (CAD), Diabetes Mellitus Additional Family Medical History / Comment(s): Prostate cancer Mother Family Medical History: Cancer Additional Family Medical History / Comment(s): Bone cancer. Medications and Allergies Home Medications Medication Instructions Recorded Confirmed Type Atorvastatin [Lipitor] 40 mg PO HS 08/10/16 12/17/22 History Isosorbide Mononitrate [Isosorbide 30 mg PO DAILY 08/10/16 12/17/22 History Mononitrate ER] Oxybutynin Chloride 5 mg PO BID 08/10/16 12/17/22 History Mirtazapine [Remeron] 15 mg PO HS 04/12/22 12/17/22 History Acetaminophen Tab [Tylenol] 650 mg PO Q6H PRN 05/08/22 12/17/22 History Omeprazole [PriLOSEC] 20 mg PO DAILY 05/22/22 12/17/22 History Apixaban [Eliquis] 5 mg PO BID 07/09/22 12/17/22 History INSULIN ASPART (NovoLOG) [NovoLOG See Protocol SQ AC-TID 07/09/22 12/17/22 History (formulary)] Insulin Detemir (Levemir) [Levemir] 60 unit SQ BID 07/09/22 12/17/22 History Gabapentin [Neurontin] 300 mg PO BID #6 cap 07/14/22 12/17/22 Rx Amiodarone [Cordarone] 200 mg PO DAILY 12/17/22 12/17/22 History Aspirin EC [Ecotrin Low Dose] 81 mg PO DAILY 12/17/22 12/17/22 History Furosemide [Lasix] 20 mg PO DAILY 12/17/22 12/17/22 History HYDROcodone/APAP 10-325MG [[place] 1 tab PO QID PRN 12/17/22 12/17/22 History 10-325] Levothyroxine Sodium [Synthroid] 50 mcg PO DAILY 12/17/22 12/17/22 History Metoprolol Succinate (ER) [Toprol 50 mg PO DAILY 12/17/22 12/17/22 History Xl] Potassium Chloride 20 meq PO DAILY 12/17/22 12/17/22 History Sertraline [Zoloft] 100 mg PO DAILY 12/17/22 12/17/22 History Allergies Allergy/AdvReac Type Severity Reaction Status Date / Time ibuprofen [From Motrin] Allergy Rash/Hives Verified 12/17/22 11:52 Penicillins Allergy Anaphylaxis Verified 12/17/22 11:52 Physical Exam Vitals: Vital Signs Temp Pulse Resp BP Pulse Ox 12/17/22 16:03 87 18 134/46 92 L 12/17/22 14:02 77 18 153/79 92 L 12/17/22 12:01 70 22 167/61 100 12/17/22 10:16 64 18 163/78 96 12/17/22 07:33 55 L 18 145/62 99 12/17/22 06:41 81 28 H 190/84 99 12/17/22 02:03 64 18 190/78 95 12/16/22 23:17 94 L 12/16/22 22:44 62 16 98 12/16/22 20:40 96.9 F L 53 L 16 135/53 95 - Exam General: Awake, alert and oriented times 3. Respiratory effort increased. HEENT: [PERRL. EOMI. No pharyngeal erythema or exudate.] Neck: [Supple, unable to evaluate JVD-short neck. Cardiac: [Heart irregular in rate and rhythm. No S3. No S4. No clicks, rubs. murmur.] Lungs: Patient has coarse breath sounds with poor air exchange, bibasilar aviation technician aircraft ckles Abdomen: [Obese, No mass. Bowel sounds presnt and normoactive in all 4 quadrants.] Extremes: [Positive edema, no cyanosis,normal pulses] Skin: Warm and dry,No rash. Results CBC & Chem 7: 12/16/22 22:42 12/16/22 22:42 Labs: Abnormal Lab Results - Last 24 Hours (Table) 05/17/23 05/17/23 05/17/23 Range/Units 20:41 21:30 22:42 RBC 3.18 L (3.80-5.40) m/uL Hgb 9.0 L (11.4-16.0) gm/dL Hct 28.6 L (34.0-46.0) % RDW 17.6 H (11.5-15.5) % Plt Count 149 L (150-450) k/uL Lymphocytes # 0.4 L (1.0-4.8) k/uL PT (9.0-12.0) sec INR (<1.2) APTT (22.0-30.0) sec BUN (7-17) mg/dL Creatinine (0.52-1.04) mg/dL Glucose (74-99) mg/dL POC Glucose (mg/dL) 39 L 65 L (70-110) mg/dL Magnesium (1.6-2.3) mg/dL Troponin I (0.000-0.034) ng/mL Urine Nitrite (Negative) Urine Bacteria (None) /hpf Hyaline Casts (0-2) /lpf Urine Mucus (None) /hpf 12/16/22 12/16/22 12/16/22 Range/Units 22:42 22:42 23:17 RBC (3.80-5.40) m/uL Hgb (11.4-16.0) gm/dL Hct (34.0-46.0) % RDW (11.5-15.5) % Plt Count (150-450) k/uL Lymphocytes # (1.0-4.8) k/uL PT (9.0-12.0) sec INR (<1.2) APTT (22.0-30.0) sec BUN 54 H (7-17) mg/dL Creatinine 1.85 H (0.52-1.04) mg/dL Glucose 32 L* (74-99) mg/dL POC Glucose (mg/dL) (70-110) mg/dL Magnesium 2.4 H (1.6-2.3) mg/dL Troponin I 0.040 H* (0.000-0.034) ng/mL Urine Nitrite Positive H (Negative) Urine Bacteria Few H (None) /hpf Hyaline Casts 11 H (0-2) /lpf Urine Mucus Rare H (None) /hpf 12/17/22 12/17/22 12/17/22 Range/Units 00:56 04:11 07:33 RBC (3.80-5.40) m/uL Hgb (11.4-16.0) gm/dL Hct (34.0-46.0) % RDW (11.5-15.5) % Plt Count (150-450) k/uL Lymphocytes # (1.0-4.8) k/uL PT 12.3 H (9.0-12.0) sec INR 1.2 H (<1.2) APTT 73.0 H (22.0-30.0) sec BUN (7-17) mg/dL Creatinine (0.52-1.04) mg/dL Glucose (74-99) mg/dL POC Glucose (mg/dL) 118 H 129 H (70-110) mg/dL Magnesium (1.6-2.3) mg/dL Troponin I (0.000-0.034) ng/mL Urine Nitrite (Negative) Urine Bacteria (None) /hpf Hyaline Casts (0-2) /lpf Urine Mucus (None) /hpf 12/17/22 12/17/22 Range/Units 09:32 16:22 RBC (3.80-5.40) m/uL Hgb (11.4-16.0) gm/dL Hct (34.0-46.0) % RDW (11.5-15.5) % Plt Count (150-450) k/uL Lymphocytes # (1.0-4.8) k/uL PT (9.0-12.0) sec INR (<1.2) APTT 45.3 H (22.0-30.0) sec BUN (7-17) mg/dL Creatinine (0.52-1.04) mg/dL Glucose (74-99) mg/dL POC Glucose (mg/dL) 239 H (70-110) mg/dL Magnesium (1.6-2.3) mg/dL Troponin I (0.000-0.034) ng/mL Urine Nitrite (Negative) Urine Bacteria (None) /hpf Hyaline Casts (0-2) /lpf Urine Mucus (None) /hpf Assessment and Plan Assessment: Acute on chronic diastolic congestive heart failure Acute on chronic hypoxic, hypercapnic respiratory failure, secondary to the above, wears 3 L NC O2 at home Obstructive sleep apnea, hypercapnic requiring BiPAP History of COVID-19 pneumonia January 2022 with chronic fibrotic changes secondary to the Covid infection as per pulmonary History of GI bleed with chronic anemia . iron deficient. (History of EGD, colonoscopy reporting nonbleeding antral ulceration, suspected diverticular bleeding, followed by repeat EGD reporting antral gastritis.) Moderate to severe pulmonary hypertension Mild aortic stenosis Severe tricuspid regurgitation Chronic kidney disease,III History of UTI with Klebsiella pneumoniae, ESBL History of Chronic Bilateral lower extremity cellulitis Chronic persistent atrial fibrillation, anticoagulated on Eliquis CAD, history of CABG Hypertension hyperlipidemia Diabetes mellitus, hemoglobin A1c 6.9 Diabetic neuropathy Hypothyroidism Depression, history of History of bariatric surgery Morbid obesity, BMI 38.3 Plan: Continue on current medication regime ,monitoring and symptomatic treatment. Echo Doppler pending. IV push Diuretics, BiPAP. Cardiology following. PPI for GI prophylaxis. Anticoagulated on Eliquis. The impression and plan of care has been dictated as directed. : I performed a history and examination of this patient, discussed the same with the dictator. I agree with the dictator's note ,documented as a scribe. Any additional findings or plans will be noted.
[2022-12-17 20:41] LABS: Glucose,Whole Blood 300 mg/dL (70-110)
[2022-12-17] MEDS: INSULIN DETEMIR (LEVEMIR) 100 UNIT/ML SYR SQ SCH (21:14)
[2022-12-18] MEDS ORDERED: HYDROcodone/APAP 10-325MG 1 EACH TAB PO PRN (03:59)
[2022-12-18] MEDS ORDERED: ACETAMINOPHEN TAB 325 MG TAB PO PRN (03:59)
[2022-12-18 06:04] LABS: Glucose,Whole Blood 189 mg/dL (70-110)
[2022-12-18] MEDS: INSULIN ASPART (NovoLOG) 100 UNIT/ML VIAL SQ SCH ×4 (06:12→21:19)
[2022-12-18] MEDS: LEVOTHYROXINE 50 MCG TAB PO SCH (06:12)
[2022-12-18] MEDS: PANTOPRAZOLE 40 MG TABLET PO SCH (06:12)
[2022-12-18] MEDS: APIXABAN 5 MG TAB PO SCH ×2 (09:28→21:19)
[2022-12-18] MEDS: POTASSIUM CHLORIDE ER 20 MEQ TAB.ER PO SCH (09:28)
[2022-12-18] MEDS: SERTRALINE 100 MG TAB PO SCH (09:28)
[2022-12-18] MEDS: GABAPENTIN 300 MG CAP PO SCH ×2 (09:28→21:19)
[2022-12-18] MEDS: oxyBUTYnin chloride 5 MG TAB PO SCH ×2 (09:28→21:19)
[2022-12-18] MEDS: FUROSEMIDE 10 MG/ML 4 ML VIAL IV SCH ×2 (09:28→21:19)
[2022-12-18] MEDS: ASPIRIN 81 MG PO SCH (09:28)
[2022-12-18] MEDS: METOPROLOL SUCCINATE (ER) 25 MG TAB.ER.24H PO SCH (09:28)
[2022-12-18] MEDS: AMIODARONE 200 MG TAB PO SCH (09:28)
[2022-12-18] MEDS: ISOSORBIDE MONONITRATE ER 15 MG TAB PO SCH (09:31)
[2022-12-18 11:53] LABS: Glucose,Whole Blood 137 mg/dL (70-110)
[2022-12-18 12:19] LABS: Anisocytosis Slight; Basophils % (A) 0 %; Eosinophils # (A) 0.1 k/uL (0-0.7); Eosinophils % (A) 2 %; HCT 25.2 % (34.0-46.0); HGB 7.7 gm/dL (11.4-16.0); Hypochromasia Moderate; Lymphocytes # (A) 0.5 k/uL (1.0-4.8); Lymphocytes % (A) 9 %; MCH 27.2 pg (25.0-35.0); MCHC 30.6 g/dL (31.0-37.0); MCV 89.1 fL (80.0-100.0); Mean Platelet Volume 8.5; Monocytes # (A) 0.3 k/uL (0-1.0); Monocytes % (A) 6 %; Neutrophils # (A) 4.6 k/uL (1.3-7.7); Neutrophils % (A) 81 %; Platelet Count 129 k/uL (150-450); RBC 2.83 m/uL (3.80-5.40); RDW 17.4 % (11.5-15.5); WBC 5.7 k/uL (3.8-10.6)
[2022-12-18 12:49] LABS: INR 1.3 (<1.2); Prothrombin Time 12.8 sec (9.0-12.0)
[2022-12-18 13:05] LABS: Calcium 8.7 mg/dL (8.4-10.2); Potassium 4.3 mmol/L (3.5-5.1)
--- NOTE | 2022-12-18 14:51 | P.CNPUL ---
History of Present Illness Consult date: 12/18/22 Requesting physician: Marcelino Cruz Jr Reason for consult: obstructive sleep apnea Chief complaint: Weakness, near syncope History of present illness: This is a 72-year-old female patient with a known history of diabetes mellitus, hypertension, coronary artery degrees disease with previous coronary artery bypass grafting, bariatric surgery secondary to morbid obesity congestive heart failure, hyperlipidemia, obstructive sleep apnea maintained on CPAP in the outpatient setting. We're consulted as the patient was thought to not have a home CPAP machine. A titration study from June 2018 revealed that her CPAP machine is programmed to auto Pap with a range of 5 minimum and a max of 18 cm of water. She is seen today on the selective care unit. She is sitting up in bed. Awake and alert in no acute distress. She seems quite adamant that she still does have a home CPAP machine. She will have her family bring it in to be evaluated. Echocardiogram revealed preserved left ventricular systolic function with ejection fraction of 55%. She does have severe pulmonary hypertension with an RV SP of 72 mmHg. White count 5.7. Hemoglobin 7.7. Platelets 129. INR 1.3. Sodium 138. Potassium 4.3. Bicarb 39. BUN 45. Creatinine 1.48. Glucose 130. Review of Systems REVIEW OF SYSTEMS: CONSTITUTIONAL: Denies any recent significant weight loss or weight gain. EYES: Denies change in vision. EARS, NOSE, MOUTH, THROAT: Denies headaches, denies sore throat. CARDIOVASCULAR: Acid for a near syncopal episode. RESPIRATORY: Denies shortness of breath, cough, congestion or hemoptysis. GASTROINTESTINAL: Denies change in appetite, denies abdominal pain GENITOURINARY: Denies hematuria, denies infections. MUSKULOSKELETAL: Denies pain, denies swelling. INTEGUMENTARY: Denies rash, denies eczema. NEUROLOGICAL: Denies recent memory loss, no recent seizure activity. PSYCHIATRIC: Denies anxiety, denies depression. HEMATOLOGIC/LYMPHATIC: Denies anemia, denies enlarged lymph nodes. Past Medical History Past Medical History: Atrial Fibrillation, Coronary Artery Disease (CAD), Diabetes Mellitus, Eye Disorder, Hyperlipidemia, Hypertension, Osteoarthritis (OA), Pneumonia, Renal Disease, Sleep Apnea/CPAP/BIPAP, Thyroid Disorder Additional Past Medical History / Comment(s): Pt recently admitted to [facility] on 05/08/22 with anemia/had EGD and colonoscopy which showed nonbleeding stomach ulcer/diverticular disease and colon polyp, pt received blood transfusions. Other hx: 02/12/22 covid/pneumonia/sepsis, other past pneumonias, acute hypoxic respiratory failure/now on home oxygen ATC, new A fib with RVR, IDDM type II, neuropathy bilateral feet, L eye retinal bleed/lasik eye surgery, R eye cat aract, bilateral eye macular degeneration/gets injections/poor vision, CKD stage III, anemia, UTI/sepsis, bilateral leg lymphedema, FLORES/does not have cpap machine at this time, diverticulitis, gout, chronic back pain, rheumatic fever, hypothyroid. History of Any Multi-Drug Resistant Organisms: ESBL Date of last positivie culture/infection: 05/22/22 ESBL Klebsiella MDRO Source:: Urine Past Surgical History: Bariatric Surgery, Section, Cholecystectomy, Coronary Bypass/CABG, Heart Catheterization, Hysterectomy, Orthopedic Surgery, Tonsillectomy Additional Past Surgical History / Comment(s): EGD, colonoscopy, 2 vessel CABG in 1996, bilateral carpal tunnel release, lap band, L eye laser surgery, Past Anesthesia/Blood Transfusion Reactions: No Reported Reaction Past Psychological History: Depression Smoking Status: Never smoker Past Alcohol Use History: None Reported Additional Past Alcohol Use History / Comment(s): Patient is a lifelong nonsmoker. Past Drug Use History: None Reported - Past Family History Father History Unknown: Yes Family Medical History: Cancer, Coronary Artery Disease (CAD), Diabetes Mellitus Additional Family Medical History / Comment(s): Prostate cancer Mother History Unknown: Yes Family Medical History: Cancer Additional Family Medical History / Comment(s): Bone cancer. Medications and Allergies Home Medications Medication Instructions Recorded Confirmed Type Atorvastatin [Lipitor] 40 mg PO HS 08/10/16 12/17/22 History Isosorbide Mononitrate [Isosorbide 30 mg PO DAILY 08/10/16 12/17/22 History Mononitrate ER] Oxybutynin Chloride 5 mg PO BID 08/10/16 12/17/22 History Mirtazapine [Remeron] 15 mg PO HS 04/12/22 12/17/22 History Acetaminophen Tab [Tylenol] 650 mg PO Q6H PRN 05/08/22 12/17/22 History Omeprazole [PriLOSEC] 20 mg PO DAILY 05/22/22 12/17/22 History Apixaban [Eliquis] 5 mg PO BID 07/09/22 12/17/22 History INSULIN ASPART (NovoLOG) [NovoLOG See Protocol SQ AC-TID 07/09/22 12/17/22 History (formulary)] Insulin Detemir (Levemir) [Levemir] 60 unit SQ BID 07/09/22 12/17/22 History Gabapentin [Neurontin] 300 mg PO BID #6 cap 07/14/22 12/17/22 Rx Amiodarone [Cordarone] 200 mg PO DAILY 12/17/22 12/17/22 History Aspirin EC [Ecotrin Low Dose] 81 mg PO DAILY 12/17/22 12/17/22 History Furosemide [Lasix] 20 mg PO DAILY 12/17/22 12/17/22 History HYDROcodone/APAP 10-325MG [[place] 1 tab PO QID PRN 12/17/22 12/17/22 History 10-325] Levothyroxine Sodium [Synthroid] 50 mcg PO DAILY 12/17/22 12/17/22 History Metoprolol Succinate (ER) [Toprol 50 mg PO DAILY 12/17/22 12/17/22 History Xl] Potassium Chloride [Potassium 20 meq PO DAILY 12/17/22 12/17/22 History Chloride ER (K-Dur GEQ)] Sertraline [Zoloft] 100 mg PO DAILY 12/17/22 12/17/22 History Allergies Allergy/AdvReac Type Severity Reaction Status Date / Time ibuprofen [From Motrin] Allergy Rash/Hives Verified 12/17/22 11:52 Penicillins Allergy Anaphylaxis Verified 12/17/22 11:52 Physical Exam Vitals: Vital Signs Temp Pulse Pulse Resp BP BP Pulse Ox 12/18/22 08:00 97.6 F 58 L 19 119/56 97 12/18/22 03:40 97.9 F 55 L 20 142/53 96 12/18/22 01:06 62 12/17/22 23:08 98.2 F 62 20 172/70 100 12/17/22 20:27 98.7 F 68 20 174/70 95 12/17/22 20:26 98.7 F 68 20 174/70 95 12/17/22 20:08 64 18 166/78 97 12/17/22 16:03 87 18 134/46 92 L Intake and Output 12/17/22 12/18/22 12/18/22 22:59 06:59 14:59 Intake Total 660 Output Total 1900 1600 Balance -1900 -1600 660 Intake: Oral 660 Output: Urine 1899 1599 Other: Voiding Method Indwelling Catheter Indwelling Catheter # Bowel Movements 1 Weight 102.5 kg 102.5 kg GENERAL EXAM: Alert, pleasant 72-year-old female, on 3 L nasal cannula, and comfortable in no apparent distress. HEAD: Normocephalic. EYES: Normal reaction of pupils, equal size. NOSE: Clear with pink turbinates. THROAT: No erythema or exudates. NECK: No masses, no JVD. CHEST: No chest wall deformity. LUNGS: Equal air entry with no crackles, wheeze, rhonchi or dullness. CVS: S1 and S2 normal with an audible murmur, irregular rhythm. ABDOMEN: No hepatosplenomegaly, normal bowel sounds, no guarding or rigidity. SPINE: No scoliosis or deformity SKIN: No rashes CENTRAL NERVOUS SYSTEM: No focal deficits, tone is normal in all 4 extremities. EXTREMITIES: There is 1-2+ peripheral edema. No clubbing, no cyanosis. Peripheral pulses are intact. Results - Laboratory Findings CBC and BMP: 12/18/22 11:26 12/18/22 11:26 PT/INR, D-dimer PT 12.8 sec (9.0-12.0) H 12/18/22 11:26 INR 1.3 (<1.2) H 12/18/22 11:26 Abnormal lab findings: Abnormal Labs 12/16/22 12/16/22 12/16/22 20:41 21:30 22:42 RBC 3.18 L Hgb 9.0 L Hct 28.6 L MCHC RDW 17.6 H Plt Count 149 L Lymphocytes # 0.4 L PT INR APTT Chloride Carbon Dioxide BUN Creatinine Glucose POC Glucose (mg/dL) 39 L 65 L Magnesium Troponin I Urine Nitrite Urine Bacteria Hyaline Casts Urine Mucus 12/16/22 12/16/22 12/16/22 22:42 22:42 23:17 RBC Hgb Hct MCHC RDW Plt Count Lymphocytes # PT INR APTT Chloride Carbon Dioxide BUN 54 H Creatinine 1.85 H Glucose 32 L* POC Glucose (mg/dL) Magnesium 2.4 H Troponin I 0.040 H* Urine Nitrite Positive H Urine Bacteria Few H Hyaline Casts 11 H Urine Mucus Rare H 12/17/22 12/17/22 12/17/22 00:56 04:11 07:33 RBC Hgb Hct MCHC RDW Plt Count Lymphocytes # PT 12.3 H INR 1.2 H APTT 73.0 H Chloride Carbon Dioxide BUN Creatinine Glucose POC Glucose (mg/dL) 118 H 129 H Magnesium Troponin I Urine Nitrite Urine Bacteria Hyaline Casts Urine Mucus 12/17/22 12/17/22 12/17/22 09:32 16:22 20:40 RBC Hgb Hct MCHC RDW Plt Count Lymphocytes # PT INR APTT 45.3 H Chloride Carbon Dioxide BUN Creatinine Glucose POC Glucose (mg/dL) 239 H 300 H Magnesium Troponin I Urine Nitrite Urine Bacteria Hyaline Casts Urine Mucus 12/18/22 12/18/22 12/18/22 06:03 11:26 11:26 RBC 2.83 L Hgb 7.7 L Hct 25.2 L MCHC 30.6 L RDW 17.4 H Plt Count 129 L Lymphocytes # 0.5 L PT 12.8 H INR 1.3 H APTT Chloride Carbon Dioxide BUN Creatinine Glucose POC Glucose (mg/dL) 189 H Magnesium Troponin I Urine Nitrite Urine Bacteria Hyaline Casts Urine Mucus 12/18/22 12/18/22 11:26 11:52 RBC Hgb Hct MCHC RDW Plt Count Lymphocytes # PT INR APTT Chloride 97 L Carbon Dioxide 39 H BUN 45 H Creatinine 1.48 H Glucose 130 H POC Glucose (mg/dL) 137 H Magnesium Troponin I Urine Nitrite Urine Bacteria Hyaline Casts Urine Mucus - Diagnostic Findings Chest x-ray: image reviewed Assessment and Plan Assessment: Episode of near-syncope with fall secondary to hypoglycemia, denied loss of consciousness Acute on chronic diastolic congestive heart failure, preserved left ventricular systolic function with ejection fraction of 55% Severe pulmonary hypertension Acute on chronic hypoxic, hypercapnic respiratory failure, secondary to the above, wears 3 L NC O2 at home Obstructive sleep apnea, hypercapnic requiring CPAP. Last sleep titration study was in 2018. She is programmed to auto Pap with a minimum of 5 maximum of 18 cm of water History of COVID-19 pneumonia January 2022 with chronic fibrotic changes History of GI bleed with chronic anemia Chronic kidney disease, stage III History of chronic bilateral lower extremity cellulitis Chronic persistent atrial fibrillation, anticoagulated on Eliquis CAD, history of CABG and 09/20/1996 Hypertension Hyperlipidemia Diabetes mellitus Diabetic neuropathy Hypothyroidism Depression, history of History of bariatric surgery, lap band Morbid obesity, BMI 38.3 Poor overall functional performance based on the above-mentioned multiple comorbidities Plan: The patient was seen and evaluated Chest x-ray, labs and medications reviewed The patient is quite adamant that she does have a home CPAP machine We requested her to have her family to bring it in Last titration study in 2018 it was programmed to auto Pap the minimum of 5 maxi mum of 18 cm of water We will continue to follow and make further recommendations based on her clini colleen status I have personally seen and examined the patient, performed the documentation and the assessment and plan as written. Number of minutes spent on the visit: 20.
[2022-12-18 16:58] LABS: Glucose,Whole Blood 236 mg/dL (70-110)
[2022-12-18 19:49] LABS: Glucose,Whole Blood 311 mg/dL (70-110)
[2022-12-18] MEDS: MIRTAZAPINE 15 MG TAB PO SCH (21:19)
[2022-12-18] MEDS: ATORVASTATIN 40 MG TAB PO SCH (21:19)
[2022-12-18] MEDS: INSULIN DETEMIR (LEVEMIR) 100 UNIT/ML SYR SQ SCH (21:20)
--- NOTE | 2022-12-19 00:03 | PN ---
PROGRESS NOTE SUBJECTIVE: This is a 72-year-old lady who is admitted to the hospital with acute exacerbation of chronic congestive heart failure. She has known CAD status post prior bypass and persistent atrial fibrillation and also had hypoglycemia. This morning she is feeling better. Echocardiogram shows preserved LV systolic function with severe pulmonary hypertension, moderate mitral regurgitation, and mild aortic stenosis. She is doing better. Denies any chest pain. Shortness of breath has improved. OBJECTIVE: VITAL SIGNS: Heart rate is 58 beats per minute, blood pressure is 120/62, respiratory rate is 18, and O2 saturation is 97%. NECK: There is no jugular venous distention. CHEST: Reveals good air entry bilaterally. HEART: Reveals first and second heart sounds, ejection systolic murmur in the aortic area. ABDOMEN: Soft. EXTREMITIES: Did not reveal any edema. Peripheral pulses are felt. LABORATORY DATA: Labs showed hemoglobin of 7.7, platelet count is 129. MEDICATIONS: She is currently on, 1. Amiodarone. 2. Eliquis 5 b.i.d. 3. Aspirin. 4. Lipitor 40 daily. 5. Lasix 40 mg IV q.12 hours. 6. Levemir. 7. Imdur. 8. Toprol-XL. 9. K-Dur. LABORATORY DATA: The patient's hemoglobin is low at 9 on her initial presentation. If she drops the hemoglobin any further, we might have to reconsider the use of anticoagulants. ASSESSMENT: 1. Persistent atrial fibrillation with controlled ventricular rate. 2. Acute exacerbation of chronic congestive heart failure, probably diastolic. 3. Severe pulmonary hypertension. 4. Hypoglycemia. 5. Mitral regurgitation. PLAN: Continue current medications. MMODL / IJN: [id number] /
[2022-12-19 06:00] LABS: Glucose,Whole Blood 154 mg/dL (70-110)
[2022-12-19] MEDS: INSULIN ASPART (NovoLOG) 100 UNIT/ML VIAL SQ SCH ×4 (06:37→21:18)
[2022-12-19] MEDS: PANTOPRAZOLE 40 MG TABLET PO SCH (06:37)
[2022-12-19] MEDS: LEVOTHYROXINE 50 MCG TAB PO SCH (06:37)
[2022-12-19] MEDS: GABAPENTIN 300 MG CAP PO SCH ×2 (10:20→21:18)
[2022-12-19] MEDS: oxyBUTYnin chloride 5 MG TAB PO SCH ×2 (10:20→21:18)
[2022-12-19] MEDS: APIXABAN 5 MG TAB PO SCH ×2 (10:20→21:18)
[2022-12-19] MEDS: ASPIRIN 81 MG PO SCH (10:20)
[2022-12-19] MEDS: AMIODARONE 200 MG TAB PO SCH (10:20)
[2022-12-19] MEDS: FUROSEMIDE 10 MG/ML 4 ML VIAL IV SCH (10:20)
[2022-12-19] MEDS: SERTRALINE 100 MG TAB PO SCH (10:20)
[2022-12-19] MEDS: METOPROLOL SUCCINATE (ER) 25 MG TAB.ER.24H PO SCH (10:21)
[2022-12-19] MEDS: POTASSIUM CHLORIDE ER 20 MEQ TAB.ER PO SCH (10:21)
[2022-12-19] MEDS: ISOSORBIDE MONONITRATE ER 15 MG TAB PO SCH (10:25)
[2022-12-19 11:58] LABS: Glucose,Whole Blood 84 mg/dL (70-110)
--- NOTE | 2022-12-19 12:37 | P.PN ---
Subjective Progress Note Date: 12/19/22 Principal diagnosis: Near syncopal episode, hypoglycemia Patient is awake alert oriented 3, she is a poor historian, this patient's son and the patient were seen in the office 3 days ago I was told by him that her insurance company had taken the BiPAP machine out of the home, apparently there were 2 machines one of which was BiPAP the other was a CPAP she has her CPAP machine and apparently she is able to use it and has all the supplies at this time, there has been some confusion and hopefully this has been resolved, patient apparently accidentally took too much fast acting insulin the day before yesterday which resulted in this episode of near syncope and subsequently hypoglycemic episode of with a sugar of 33, reeducation regarding type 2 diabetes insulin dosing and overall diabetic care may be in order at this time Objective - Vital Signs Vital signs: Vital Signs Temp 97.8 F 12/19/22 04:00 Pulse 67 12/19/22 04:00 Resp 18 12/19/22 04:00 BP 119/56 12/19/22 04:00 Pulse Ox 93 L 12/19/22 04:00 FiO2 Intake & Output 12/18/22 12/19/22 12/19/22 18:59 06:59 18:59 Intake Total 660 540 0 Output Total 1200 2900 Balance -540 -2360 0 Weight 95.7 kg Intake: Oral 660 540 0 Output: Urine 1200 2900 Uretheral (Lynne) 900 Other: Voiding Method Indwelling Catheter Indwelling Catheter # Bowel Movements 1 - Exam General: [Patient awake, alert and oriented times 3. Patient in no acute distress.] Morbidly obese HEENT: [PERRL. EOMI. No pharyngeal erythema or exudate.] Neck: [No adenopathy.] Cardiac: [Heart regular in rate and rhythm. No S3. No S4. No clicks, rubs. No murmur.] Mid sternal scar secondary to open heart surgery Lungs: [Clear to auscultation bilaterally.] Abdomen: [No mass. No organomegaly. Bowel sounds presnt and normoactive in all 4 quadrants.] Laparoscopy scars Extremes: [No edema no cyanosis no claudication normal pulses] : Normal female genitalia Musculoskeletal: [No joint erythema, edema or tenderness.] Skin: [No rash.] Neurologic: [No lateralizing deficits. CN II - XII grossly intact.] Lymphatic: [No adenopathy.] - Labs CBC & Chem 7: 12/18/22 11:26 12/18/22 11:26 Labs: Abnormal Lab Results - Last 24 Hours (Table) 12/18/22 12/18/22 12/18/22 Range/Units 11:26 11:26 16:57 PT 12.8 H (9.0-12.0) sec INR 1.3 H (<1.2) Chloride 97 L (98-107) mmol/L Carbon Dioxide 39 H (22-30) mmol/L BUN 45 H (7-17) mg/dL Creatinine 1.48 H (0.52-1.04) mg/dL Glucose 130 H (74-99) mg/dL POC Glucose (mg/dL) 236 H (70-110) mg/dL 12/18/22 12/19/22 Range/Units 19:48 05:59 PT (9.0-12.0) sec INR (<1.2) Chloride (98-107) mmol/L Carbon Dioxide (22-30) mmol/L BUN (7-17) mg/dL Creatinine (0.52-1.04) mg/dL Glucose (74-99) mg/dL POC Glucose (mg/dL) 311 H 154 H (70-110) mg/dL Assessment and Plan (1) Congestive heart failure Current Visit: Yes Status: Acute Code(s): I50.9 - HEART FAILURE, UNSPECIFIED SNOMED Code(s): 71593136 (2) NSTEMI (non-ST elevated myocardial infarction) Current Visit: Yes Status: Acute Code(s): I21.4 - NON-ST ELEVATION (NSTEMI) MYOCARDIAL INFARCTION SNOMED Code(s): 89269580 (3) Acquired hypothyroidism Current Visit: No Status: Acute Code(s): E03.9 - HYPOTHYROIDISM, UNSPECIFIED SNOMED Code(s): 479264228 (4) Acute on chronic anemia Current Visit: No Status: Acute Code(s): D64.9 - ANEMIA, UNSPECIFIED SNOMED Code(s): 987050890 (5) Acute on chronic diastolic (congestive) heart failure Current Visit: No Status: Acute Code(s): I50.33 - ACUTE ON CHRONIC DIASTOLIC (CONGESTIVE) HEART FAILURE SNOMED Code(s): 196132208 (6) Atrial fibrillation Current Visit: No Status: Acute Code(s): I48.91 - UNSPECIFIED ATRIAL FIBRILLATION SNOMED Code(s): 68022780 (7) CKD (chronic kidney disease) Current Visit: No Status: Acute Code(s): N18.9 - CHRONIC KIDNEY DISEASE, UNSPECIFIED SNOMED Code(s): 436927347 (8) Chronic diastolic (congestive) heart failure Current Visit: No Status: Acute Code(s): I50.32 - CHRONIC DIASTOLIC (CONGESTIVE) HEART FAILURE SNOMED Code(s): 885285857 (9) Coronary artery disease with history of coronary revascularization Current Visit: No Status: Acute Code(s): I25.10 - ATHSCL HEART DISEASE OF [place] CORONARY ARTERY W/O ANG PCTRS; Z98.61 - CORONARY ANGIOPLASTY STATUS SNOMED Code(s): 88502636 Plan: Episodic hypoglycemia Recommend diabetic education\refresher Time with Patient: Greater than 30
--- NOTE | 2022-12-19 13:04 | P.PN ---
Subjective Progress Note Date: 12/19/22 This is a 72-year-old female patient with a known history of diabetes mellitus, hypertension, coronary artery degrees disease with previous coronary artery bypass grafting, bariatric surgery secondary to morbid obesity congestive heart failure, hyperlipidemia, obstructive sleep apnea maintained on CPAP in the outpatient setting. We're consulted as the patient was thought to not have a home CPAP machine. A titration study from June 2018 revealed that her CPAP machine is programmed to auto Pap with a range of 5 minimum and a max of 18 cm of water. She is seen today on the selective care unit. She is sitting up in bed. Awake and alert in no acute distress. She seems quite adamant that she s till does have a home CPAP machine. She will have her family bring it in to be evaluated. Echocardiogram revealed preserved left ventricular systolic function with ejection fraction of 55%. She does have severe pulmonary hypertension with an RV SP of 72 mmHg. White count 5.7. Hemoglobin 7.7. Platelets 129. INR 1.3. Sodium 138. Potassium 4.3. Bicarb 39. BUN 45. Creatinine 1.48. Glucose 130. The patient is seen today 12/19/2022 in follow-up on the selective care unit. She is currently resting in bed. Wearing her home sleep device. It is an IVAPS device with auto EPAP. She has a nasal mask. Denies any shortness of breath, cough or congestion. Blood glucose 154. She is continued on IV diuretics. Currently in a -2.9 L balance. Anticoagulated with Eliquis. Objective - Vital Signs Vital signs: Vital Signs Temp 97.8 F 12/19/22 04:00 Pulse 67 12/19/22 04:00 Resp 18 12/19/22 04:00 BP 119/56 12/19/22 04:00 Pulse Ox 93 L 12/19/22 04:00 FiO2 Intake & Output 12/18/22 12/19/22 12/19/22 18:59 06:59 18:59 Intake Total 660 540 0 Output Total 1200 2900 Balance -540 -2360 0 Weight 95.7 kg Intake: Oral 660 540 0 Output: Urine 1200 2900 Uretheral (Lynne) 900 Other: Voiding Method Indwelling Catheter Indwelling Catheter # Bowel Movements 1 - Exam GENERAL EXAM: Alert, pleasant 72-year-old female, on her home BiPAP device, and comfortable in no apparent distress. HEAD: Normocephalic. EYES: Normal reaction of pupils, equal size. NOSE: Clear with pink turbinates. THROAT: No erythema or exudates. NECK: No masses, no JVD. CHEST: No chest wall deformity. LUNGS: Equal air entry with crackles in the posterior bases. CVS: S1 and S2 normal with an audible murmur, irregular rhythm. ABDOMEN: No hepatosplenomegaly, normal bowel sounds, no guarding or rigidity. SPINE: No scoliosis or deformity SKIN: No rashes CENTRAL NERVOUS SYSTEM: No focal deficits, tone is normal in all 4 extremities. EXTREMITIES: There is 1-2+ peripheral edema. No clubbing, no cyanosis. Peripheral pulses are intact. - Labs CBC & Chem 7: 12/18/22 11:26 12/18/22 11:26 Labs: Abnormal Lab Results - Last 24 Hours (Table) 12/18/22 12/18/22 12/18/22 Range/Units 11:26 16:57 19:48 Chloride 97 L (98-107) mmol/L Carbon Dioxide 39 H (22-30) mmol/L BUN 45 H (7-17) mg/dL Creatinine 1.48 H (0.52-1.04) mg/dL Glucose 130 H (74-99) mg/dL POC Glucose (mg/dL) 236 H 311 H (70-110) mg/dL 12/19/22 Range/Units 05:59 Chloride (98-107) mmol/L Carbon Dioxide (22-30) mmol/L BUN (7-17) mg/dL Creatinine (0.52-1.04) mg/dL Glucose (74-99) mg/dL POC Glucose (mg/dL) 154 H (70-110) mg/dL Assessment and Plan Assessment: Episode of near-syncope with fall secondary to hypoglycemia, denied loss of consciousness Acute on chronic diastolic congestive heart failure, preserved left ventricular systolic function with ejection fraction of 55% Severe pulmonary hypertension Acute on chronic hypoxic, hypercapnic respiratory failure, secondary to the above, wears 3 L NC O2 at home Obstructive sleep apnea. Has a home iVAPS device with auto ePAP. Last sleep titration study was in 2018. She is programmed to a minimum of 5 maximum of 18 cm of water History of COVID-19 pneumonia January 2022 with chronic fibrotic changes History of GI bleed with chronic anemia Chronic kidney disease, stage III History of chronic bilateral lower extremity cellulitis Chronic persistent atrial fibrillation, anticoagulated on Eliquis CAD, history of CABG and 09/20/1996 Hypertension Hyperlipidemia Diabetes mellitus Diabetic neuropathy Hypothyroidism Depression, history of History of bariatric surgery, lap band Morbid obesity, BMI 38.3 Poor overall functional performance based on the above-mentioned multiple comorbidities Plan: The patient was seen and evaluated Medications reviewed Remains on IV diuretics Remains in a negative balance Currently wearing her home sleep apnea device Otherwise on 2 L/m per nasal cannula We will continue to follow I have personally seen and examined the patient, performed the documentation and the assessment and plan as written. Number of minutes spent on the visit: 10.
--- NOTE | 2022-12-19 14:05 | P.PN ---
Subjective Progress Note Date: 12/19/22 History of present illness: This is a 72-year-old female admitted to the hospital due to acute exacerbation of heart failure with known coronary artery disease status post prior bypass and persistent atrial fibrillation. Patient presented with hypoglycemia. Patient is feeling better in general today. She is on CPAP and on IV Lasix 40 mg every 12 hours. Heart rate is in the 60s, blood pressure 119/56. Echocardiogram revealed normal LV size preserved systolic function. Moderate mitral regurgitation aortic valve sclerosis, severe tricuspid regurgitation. Physical examination: Gen: This is a obese 72-year-old female. She appears to be in no acute distress. VS: reviewed HEENT: Head is atraumatic, normocephalic. Pupils equal, round. Sclerae is anicteric. NECK: Supple. No JVD. . LUNGS: Good air entry bilaterally. No intercostal retractions. HEART: Regular rate and rhythm. Systolic ejection murmur at the aortic area ABDOMEN: Soft No tenderness. EXTREMITIES: No pedal edema. No calf tenderness. NEUROLOGICAL: Patient is awake, alert and oriented x3. Assessment: Persistent atrial fibrillation with controlled ventricular rate Acute diastolic heart failure Severe pulmonary hypertension Hypoglycemia Mitral regurgitation Plan: Transition IV Lasix to oral 40 mg twice daily Continue patient's other cardiac medications Further recommendations to follow based upon clinical course Nurse practitioner note has been reviewed, I agree with documented findings and plan of care. Patient was seen and examined. Objective - Vital Signs Vital signs: Vital Signs Temp 97.8 F 12/19/22 04:00 Pulse 67 12/19/22 04:00 Resp 18 12/19/22 04:00 BP 119/56 12/19/22 04:00 Pulse Ox 93 L 12/19/22 04:00 FiO2 Intake & Output 12/18/22 12/19/22 12/19/22 18:59 06:59 18:59 Intake Total 660 540 Output Total 1200 2900 Balance -540 -2360 Weight 95.7 kg Intake: Oral 660 540 Output: Urine 1200 2900 Uretheral (Lynne) 900 Other: Voiding Method Indwelling Catheter Indwelling Catheter # Bowel Movements 1 - Labs CBC & Chem 7: 12/18/22 11:26 12/18/22 11:26 Labs: Abnormal Lab Results - Last 24 Hours (Table) 12/18/22 12/18/22 12/18/22 Range/Units 11:26 11:26 11:26 RBC 2.83 L (3.80-5.40) m/uL Hgb 7.7 L (11.4-16.0) gm/dL Hct 25.2 L (34.0-46.0) % MCHC 30.6 L (31.0-37.0) g/dL RDW 17.4 H (11.5-15.5) % Plt Count 129 L (150-450) k/uL Lymphocytes # 0.5 L (1.0-4.8) k/uL PT 12.8 H (9.0-12.0) sec INR 1.3 H (<1.2) Chloride 97 L (98-107) mmol/L Carbon Dioxide 39 H (22-30) mmol/L BUN 45 H (7-17) mg/dL Creatinine 1.48 H (0.52-1.04) mg/dL Glucose 130 H (74-99) mg/dL POC Glucose (mg/dL) (70-110) mg/dL 12/18/22 12/18/22 12/18/22 Range/Units 11:52 16:57 19:48 RBC (3.80-5.40) m/uL Hgb (11.4-16.0) gm/dL Hct (34.0-46.0) % MCHC (31.0-37.0) g/dL RDW (11.5-15.5) % Plt Count (150-450) k/uL Lymphocytes # (1.0-4.8) k/uL PT (9.0-12.0) sec INR (<1.2) Chloride (98-107) mmol/L Carbon Dioxide (22-30) mmol/L BUN (7-17) mg/dL Creatinine (0.52-1.04) mg/dL Glucose (74-99) mg/dL POC Glucose (mg/dL) 137 H 236 H 311 H (70-110) mg/dL 12/19/22 Range/Units 05:59 RBC (3.80-5.40) m/uL Hgb (11.4-16.0) gm/dL Hct (34.0-46.0) % MCHC (31.0-37.0) g/dL RDW (11.5-15.5) % Plt Count (150-450) k/uL Lymphocytes # (1.0-4.8) k/uL PT (9.0-12.0) sec INR (<1.2) Chloride (98-107) mmol/L Carbon Dioxide (22-30) mmol/L BUN (7-17) mg/dL Creatinine (0.52-1.04) mg/dL Glucose (74-99) mg/dL POC Glucose (mg/dL) 154 H (70-110) mg/dL
[2022-12-19 16:57] LABS: Glucose,Whole Blood 89 mg/dL (70-110)
[2022-12-19] MEDS: FUROSEMIDE 40 MG TAB PO SCH (17:19)
[2022-12-19 20:11] LABS: Glucose,Whole Blood 162 mg/dL (70-110)
[2022-12-19] MEDS: ATORVASTATIN 40 MG TAB PO SCH (21:18)
[2022-12-19] MEDS: MIRTAZAPINE 15 MG TAB PO SCH (21:18)
[2022-12-19] MEDS: INSULIN DETEMIR (LEVEMIR) 100 UNIT/ML SYR SQ SCH (22:36)
[2022-12-20 06:30] LABS: Glucose,Whole Blood 103 mg/dL (70-110)
[2022-12-20] MEDS: INSULIN ASPART (NovoLOG) 100 UNIT/ML VIAL SQ SCH ×3 (06:34→17:25)
[2022-12-20] MEDS: PANTOPRAZOLE 40 MG TABLET PO SCH (06:36)
[2022-12-20] MEDS: LEVOTHYROXINE 50 MCG TAB PO SCH (06:36)
[2022-12-20 09:42] VITALS: TEMP 98.4
[2022-12-20] MEDS: FUROSEMIDE 40 MG TAB PO SCH ×2 (09:54→16:08)
[2022-12-20] MEDS: ASPIRIN 81 MG PO SCH (09:54)
[2022-12-20] MEDS: AMIODARONE 200 MG TAB PO SCH (09:54)
[2022-12-20] MEDS: APIXABAN 5 MG TAB PO SCH (09:54)
[2022-12-20] MEDS: METOPROLOL SUCCINATE (ER) 25 MG TAB.ER.24H PO SCH (09:54)
[2022-12-20] MEDS: oxyBUTYnin chloride 5 MG TAB PO SCH (09:55)
[2022-12-20] MEDS: SERTRALINE 100 MG TAB PO SCH (09:55)
[2022-12-20] MEDS: ISOSORBIDE MONONITRATE ER 15 MG TAB PO SCH (09:55)
[2022-12-20] MEDS: POTASSIUM CHLORIDE ER 20 MEQ TAB.ER PO SCH (09:55)
[2022-12-20] MEDS: GABAPENTIN 300 MG CAP PO SCH (09:55)
--- NOTE | 2022-12-20 09:56 | P.PN ---
Subjective Progress Note Date: 12/20/22 Principal diagnosis: Near syncopal episode, hypoglycemia, obstructive sleep apnea Patient is awake alert oriented 3, she is a poor historian, this patient's son and the patient were seen in the office 3 days ago I was told by him that her insurance company had taken the BiPAP machine out of the home, apparently there were 2 machines one of which was BiPAP the other was a CPAP she has her CPAP machine and apparently she is able to use it and has all the supplies at this time, there has been some confusion and hopefully this has been resolved, patient apparently accidentally took too much fast acting insulin the day before yesterday which resulted in this episode of near syncope and subsequently hypoglycemic episode of with a sugar of 33, reeducation regarding type 2 di abetes insulin dosing and overall diabetic care may be in order at this time 12/20/2022 Patient's awake alert vital signs are stable patient's completely afebrile, is in good spirits, glucose have been quite stable, she has a sleep apnea machine at home and it is operable, this patient has also been visited and instructed by a hospital hospital educator, we will discharge this patient home today with follow-up Wednesday or Wednesday in the office Objective - Vital Signs Vital signs: Vital Signs Temp 98.4 F 12/20/22 08:00 Pulse 69 12/20/22 08:00 Resp 17 12/20/22 08:00 BP 171/80 12/20/22 08:00 Pulse Ox 99 12/20/22 09:18 FiO2 Intake & Output 12/19/22 12/20/22 12/20/22 18:59 06:59 18:59 Intake Total 240 Output Total 6000 1900 Balance -5760 -1900 Weight 88 kg Intake: Oral 240 Output: Urine 6000 1900 Uretheral (Lynne) 3000 100 Other: Voiding Method Indwelling Catheter Indwelling Catheter - Exam General: [Patient awake, alert and oriented times 3. Patient in no acute distress.] Morbidly obese HEENT: [PERRL. EOMI. No pharyngeal erythema or exudate.] Neck: [No adenopathy.] Cardiac: [Heart regular in rate and rhythm. No S3. No S4. No clicks, rubs. No murmur.] Mid sternal scar secondary to open heart surgery Lungs: [Clear to auscultation bilaterally.] Abdomen: [No mass. No organomegaly. Bowel sounds presnt and normoactive in all 4 quadrants.] Laparoscopy scars Extremes: [No edema no cyanosis no claudication normal pulses] : Normal female genitalia Musculoskeletal: [No joint erythema, edema or tenderness.] Skin: [No rash.] Neurologic: [No lateralizing deficits. CN II - XII grossly intact.] Lymphatic: [No adenopathy.] - Labs CBC & Chem 7: 12/18/22 11:26 12/18/22 11:26 Labs: Abnormal Lab Results - Last 24 Hours (Table) 12/19/22 Range/Units 20:10 POC Glucose (mg/dL) 162 H (70-110) mg/dL Assessment and Plan (1) Congestive heart failure Current Visit: Yes Status: Acute Code(s): I50.9 - HEART FAILURE, UNSPECIFIED SNOMED Code(s): 60121011 (2) NSTEMI (non-ST elevated myocardial infarction) Current Visit: Yes Status: Acute Code(s): I21.4 - NON-ST ELEVATION (NSTEMI) MYOCARDIAL INFARCTION SNOMED Code(s): 10803925 (3) Acquired hypothyroidism Current Visit: No Status: Acute Code(s): E03.9 - HYPOTHYROIDISM, UNSPECIFIED SNOMED Code(s): 756916816 (4) Acute on chronic anemia Current Visit: No Status: Acute Code(s): D64.9 - ANEMIA, UNSPECIFIED SNOMED Code(s): 974541672 (5) Acute on chronic diastolic (congestive) heart failure Current Visit: No Status: Acute Code(s): I50.33 - ACUTE ON CHRONIC DIASTOLIC (CONGESTIVE) HEART FAILURE SNOMED Code(s): 443482060 (6) Atrial fibrillation Current Visit: No Status: Acute Code(s): I48.91 - UNSPECIFIED ATRIAL FIBRILLATION SNOMED Code(s): 22776903 (7) CKD (chronic kidney disease) Current Visit: No Status: Acute Code(s): N18.9 - CHRONIC KIDNEY DISEASE, UNSPECIFIED SNOMED Code(s): 373248793 (8) Chronic diastolic (congestive) heart failure Current Visit: No Status: Acute Code(s): I50.32 - CHRONIC DIASTOLIC (CONGESTIVE) HEART FAILURE SNOMED Code(s): 769023998 (9) Coronary artery disease with history of coronary revascularization Current Visit: No Status: Acute Code(s): I25.10 - ATHSCL HEART DISEASE OF [place] CORONARY ARTERY W/O ANG PCTRS; Z98.61 - CORONARY ANGIOPLASTY STATUS SNOMED Code(s): 72493209 Plan: Symptoms improved, blood pressure stable rate stable Patient is currently on rate control and anticoagulant Has had recurrent diabetic education Will follow patient in the office have her see the hospital educator in the office as well to reinforce good behaviors Confusion regarding home sleep apnea device cleared up patient does have CPAP at home and supplies and has been using her machine faithfully Anemia noted we will continue to follow hemoglobins in the office and treat accordingly patient is on multivitamin with iron We'll reevaluate and continue follow in the office Time with Patient: Greater than 30 (Son works until 3:30 will not be able to pick her up until that time)
[2022-12-20 11:34] LABS: Anisocytosis Slight; Basophils % (A) 0 %; Eosinophils # (A) 0.2 k/uL (0-0.7); Eosinophils % (A) 3 %; HCT 30.1 % (34.0-46.0); Hypochromasia Moderate; Lymphocytes # (A) 0.6 k/uL (1.0-4.8); Lymphocytes % (A) 9 %; MCH 28.6 pg (25.0-35.0); MCHC 31.8 g/dL (31.0-37.0); MCV 89.9 fL (80.0-100.0); Mean Platelet Volume 8.3; Monocytes # (A) 0.5 k/uL (0-1.0); Monocytes % (A) 7 %; Neutrophils # (A) 5.5 k/uL (1.3-7.7); Neutrophils % (A) 80 %; Platelet Count 161 k/uL (150-450); RBC 3.35 m/uL (3.80-5.40); RDW 17.5 % (11.5-15.5); WBC 6.9 k/uL (3.8-10.6)
[2022-12-20 11:36] LABS: HGB 9.6 gm/dL (11.4-16.0)
[2022-12-20 11:49] LABS: Glucose,Whole Blood 171 mg/dL (70-110)
--- NOTE | 2022-12-20 12:44 | P.PN ---
Subjective Progress Note Date: 12/20/22 This is a 72-year-old female patient with a known history of diabetes mellitus, hypertension, coronary artery degrees disease with previous coronary artery bypass grafting, bariatric surgery secondary to morbid obesity congestive heart failure, hyperlipidemia, obstructive sleep apnea maintained on CPAP in the outpatient setting. We're consulted as the patient was thought to not have a home CPAP machine. A titration study from June 2018 revealed that her CPAP machine is programmed to auto Pap with a range of 5 minimum and a max of 18 cm of water. She is seen today on the selective care unit. She is sitting up in bed. Awake and alert in no acute distress. She seems quite adamant that she s till does have a home CPAP machine. She will have her family bring it in to be evaluated. Echocardiogram revealed preserved left ventricular systolic function with ejection fraction of 55%. She does have severe pulmonary hypertension with an RV SP of 72 mmHg. White count 5.7. Hemoglobin 7.7. Platelets 129. INR 1.3. Sodium 138. Potassium 4.3. Bicarb 39. BUN 45. Creatinine 1.48. Glucose 130. The patient is seen today 12/19/2022 in follow-up on the selective care unit. She is currently resting in bed. Wearing her home sleep device. It is an IVAPS device with auto EPAP. She has a nasal mask. Denies any shortness of breath, cough or congestion. Blood glucose 154. She is continued on IV diuretics. Currently in a -2.9 L balance. Anticoagulated with Eliquis. The patient is seen today 12/20/2022 in follow-up on the selective care unit. She is awake and alert in no acute distress. Currently resting quite comfortably in bed. She has been wearing her home sleep apnea device. Currently maintaining good O2 saturations in the 90s on 2 L/m per nasal cannula. White count 6.9. Hemoglobin 9.6. Platelets 161. Glucose 171. She is continued on oral diuretics. She is currently in a -7.6 L balance. Anticoagulated with Eliquis. Objective - Vital Signs Vital signs: Vital Signs Temp 98.4 F 12/20/22 12:00 Pulse 70 12/20/22 12:00 Resp 18 12/20/22 12:00 BP 144/67 12/20/22 12:00 Pulse Ox 98 12/20/22 12:00 FiO2 Intake & Output 12/19/22 12/20/22 12/20/22 18:59 06:59 18:59 Intake Total 240 358 Output Total 6000 1900 1400 Balance -5760 -1900 -1042 Weight 88 kg Intake: Oral 240 358 Output: Urine 6000 1900 1400 Uretheral (Lynne) 3000 100 Other: Voiding Method Indwelling Catheter Indwelling Catheter Indwelling Catheter - Exam GENERAL EXAM: Alert, pleasant 72-year-old female, on 2 L nasal, and comfortable in no apparent distress. HEAD: Normocephalic. EYES: Normal reaction of pupils, equal size. NOSE: Clear with pink turbinates. THROAT: No erythema or exudates. NECK: No masses, no JVD. CHEST: No chest wall deformity. LUNGS: Equal air entry with crackles in the posterior bases. CVS: S1 and S2 normal with an audible murmur, irregular rhythm. ABDOMEN: No hepatosplenomegaly, normal bowel sounds, no guarding or rigidity. SPINE: No scoliosis or deformity SKIN: No rashes CENTRAL NERVOUS SYSTEM: No focal deficits, tone is normal in all 4 extremities. EXTREMITIES: There is 1-2+ peripheral edema. No clubbing, no cyanosis. Peripheral pulses are intact. - Labs CBC & Chem 7: 12/20/22 10:03 12/18/22 11:26 Labs: Abnormal Lab Results - Last 24 Hours (Table) 12/19/22 12/20/22 12/20/22 Range/Units 20:10 10:03 11:48 RBC 3.35 L (3.80-5.40) m/uL Hgb 9.6 L D (11.4-16.0) gm/dL Hct 30.1 L (34.0-46.0) % RDW 17.5 H (11.5-15.5) % Lymphocytes # 0.6 L (1.0-4.8) k/uL POC Glucose (mg/dL) 162 H 171 H (70-110) mg/dL Assessment and Plan Assessment: Episode of near-syncope with fall secondary to hypoglycemia, denied loss of consciousness Acute on chronic diastolic congestive heart failure, preserved left ventricular systolic function with ejection fraction of 55% Severe pulmonary hypertension Acute on chronic hypoxic, hypercapnic respiratory failure, secondary to the above, wears 3 L NC O2 at home Obstructive sleep apnea. Has a old home iVAPS device with auto ePAP. Last sleep titration study was in 2018. She is programmed to a minimum of 5 maximum of 18 cm of water History of COVID-19 pneumonia January 2022 with chronic fibrotic changes History of GI bleed with chronic anemia Chronic kidney disease, stage III History of chronic bilateral lower extremity cellulitis Chronic persistent atrial fibrillation, anticoagulated on Eliquis CAD, history of CABG and 09/20/1996 Hypertension Hyperlipidemia Diabetes mellitus Diabetic neuropathy Hypothyroidism Depression, history of History of bariatric surgery, lap band Morbid obesity, BMI 38.3 Poor overall functional performance based on the above-mentioned multiple comorbidities Plan: The patient was seen and evaluated Medications reviewed Transitioned to oral diuretics Remains in a negative balance Using her home sleep apnea device at night Otherwise on 2 L/m per nasal cannula Could follow up in the sleep center post discharge I have personally seen and examined the patient, performed the documentation and the assessment and plan as written. Number of minutes spent on the visit: 10.
--- NOTE | 2022-12-20 13:23 | P.PN ---
Subjective Progress Note Date: 12/20/22 History of present illness: This is a 72-year-old female admitted to the hospital due to acute exacerbation of heart failure with known coronary artery disease status post prior bypass and persistent atrial fibrillation. Patient presented with hypoglycemia. Patient is feeling better in general today. She is on CPAP and on IV Lasix 40 mg every 12 hours. Heart rate is in the 60s, blood pressure 119/56. Echocardiogram revealed normal LV size preserved systolic function. Moderate mitral regurgitation aortic valve sclerosis, severe tricuspid regurgitation. 12/20 Patient denies any concerns this morning. She states her shortness of breath is controlled, no chest pain. She is currently on oxygen at 2 L nasal cannula with pulse ox of 98% and used lysing CPAP at nighttime. Her blood pressure 144/67 and heart rate in the 50s to 70s. Patient states that she has been seen this morning by Dr. Cruz and plan for discharge home today. Physical examination: Gen: This is a obese 72-year-old female. She appears to be in no acute distress. VS: reviewed HEENT: Head is atraumatic, normocephalic. Pupils equal, round. Sclerae is anicteric. NECK: Supple. No JVD. . LUNGS: Good air entry bilaterally. No intercostal retractions. HEART: Regular rate and rhythm. Systolic ejection murmur at the aortic area ABDOMEN: Soft No tenderness. EXTREMITIES: No pedal edema. No calf tenderness. NEUROLOGICAL: Patient is awake, alert and oriented x3. Assessment: Persistent atrial fibrillation with controlled ventricular rate Acute diastolic heart failure Severe pulmonary hypertension Hypoglycemia Mitral regurgitation Plan: Continue Lasix oral 40 mg twice daily Continue patient's other cardiac medications Patient is cleared from cardiology for discharge home with follow-up in the office in one to 2 weeks. Nurse practitioner note has been reviewed, I agree with documented findings and plan of care. Patient was seen and examined. 40 mg twice a day Objective - Vital Signs Vital signs: Vital Signs Temp 98.4 F 12/20/22 08:00 Pulse 69 12/20/22 08:00 Resp 17 12/20/22 08:00 BP 171/80 12/20/22 08:00 Pulse Ox 99 12/20/22 09:18 FiO2 Intake & Output 12/19/22 12/20/22 12/20/22 18:59 06:59 18:59 Intake Total 240 Output Total 6000 1900 Balance -5760 -1900 Weight 88 kg Intake: Oral 240 Output: Urine 6000 1900 Uretheral (Lynne) 3000 100 Other: Voiding Method Indwelling Catheter Indwelling Catheter - Labs CBC & Chem 7: 12/20/22 10:03 12/18/22 11:26 Labs: Abnormal Lab Results - Last 24 Hours (Table) 12/19/22 Range/Units 20:10 POC Glucose (mg/dL) 162 H (70-110) mg/dL
[2022-12-20 16:07] VITALS: BP 151/67; PULSE 66; RESP 19
[2022-12-20 16:52] LABS: Glucose,Whole Blood 238 mg/dL (70-110)
== END 2022-12-20 18:10 | disposition home health service (06) | DRG 291 ==
LOC: EC 20:34 → 3SCARD 12-17 03:29
PROVIDERS: ADMIT Family Medicine; ATTEND Family Medicine
PROC: 5A09357 Assistance with Respiratory Ventilation, Less than 24 Consecutive Hours, Continuous Positive Airway Pressure (ICD-10-PCS; principal; 2022-12-17)
DX: I13.0 Hypertensive heart and chronic kidney disease with heart failure and stage 1 through stage 4 chronic kidney disease, or unspecified chronic kidney disease (principal); I50.33 Acute on chronic diastolic (congestive) heart failure; J96.22 Acute and chronic respiratory failure with hypercapnia; I48.19 Other persistent atrial fibrillation; L03.115 Cellulitis of right lower limb; L03.116 Cellulitis of left lower limb; I27.20 Pulmonary hypertension, unspecified; E11.649 Type 2 diabetes mellitus with hypoglycemia without coma; J84.178 Other interstitial pulmonary diseases with fibrosis in diseases classified elsewhere; D50.9 Iron deficiency anemia, unspecified; E03.9 Hypothyroidism, unspecified; F32.A Depression, unspecified; N18.30 Chronic kidney disease, stage 3 unspecified; E66.01 Morbid (severe) obesity due to excess calories; I08.3 Combined rheumatic disorders of mitral, aortic and tricuspid valves; G47.33 Obstructive sleep apnea (adult) (pediatric); I89.0 Lymphedema, not elsewhere classified; G89.29 Other chronic pain; M40.204 Unspecified kyphosis, thoracic region; M43.16 Spondylolisthesis, lumbar region; U09.9 Post COVID-19 condition, unspecified; Z79.01 Long term (current) use of anticoagulants; Z99.81 Dependence on supplemental oxygen; Z95.1 Presence of aortocoronary bypass graft; Z79.4 Long term (current) use of insulin; I25.10 Atherosclerotic heart disease of native coronary artery without angina pectoris; E78.5 Hyperlipidemia, unspecified; I45.10 Unspecified right bundle-branch block; H54.7 Unspecified visual loss; H35.30 Unspecified macular degeneration; W18.30XA Fall on same level, unspecified, initial encounter; R77.8 Other specified abnormalities of plasma proteins; R79.89 Other specified abnormal findings of blood chemistry; J96.21 Acute and chronic respiratory failure with hypoxia; E11.42 Type 2 diabetes mellitus with diabetic polyneuropathy; E11.22 Type 2 diabetes mellitus with diabetic chronic kidney disease; Z68.38 Body mass index [BMI] 38.0-38.9, adult; Z87.11 Personal history of peptic ulcer disease; Z87.19 Personal history of other diseases of the digestive system; Z88.0 Allergy status to penicillin; Z88.6 Allergy status to analgesic agent; Z79.890 Hormone replacement therapy; Z79.891 Long term (current) use of opiate analgesic; Z79.899 Other long term (current) drug therapy; Y92.009 Unspecified place in unspecified non-institutional (private) residence as the place of occurrence of the external cause; Z87.01 Personal history of pneumonia (recurrent); Z98.84 Bariatric surgery status; Z82.49 Family history of ischemic heart disease and other diseases of the circulatory system; Z79.82 Long term (current) use of aspirin; Z28.310 Unvaccinated for COVID-19; Z86.19 Personal history of other infectious and parasitic diseases
CPT/HCPCS: 36415; 51702; 71046; 72072; 72100; 80048; 80053; 81001; 83036; 83690; 83735; 83880; 84484; 85025; 85610; 85730; 93005; 93306; 94660; 94760; 96365; 96366; 96375; 96376; 99285

== ENCOUNTER → 2023-03-01 | Outpatient (CLI) | payer MEDICARE, OTHER ==
[2023-03-01 18:05] LABS: Anisocytosis Slight; Basophils % (A) 0 %; Eosinophils # (A) 0.2 k/uL (0-0.7); Eosinophils % (A) 4 %; HCT 20.5 % (34.0-46.0); Hypochromasia Slight; Lymphocytes # (A) 0.5 k/uL (1.0-4.8); Lymphocytes % (A) 10 %; MCH 29.7 pg (25.0-35.0); MCHC 32.5 g/dL (31.0-37.0); MCV 91.3 fL (80.0-100.0); Mean Platelet Volume 9.9; Monocytes # (A) 0.3 k/uL (0-1.0); Monocytes % (A) 5 %; Neutrophils # (A) 4.5 k/uL (1.3-7.7); Neutrophils % (A) 80 %; Platelet Count 121 k/uL (150-450); RBC 2.24 m/uL (3.80-5.40); RDW 18.4 % (11.5-15.5); WBC 5.6 k/uL (3.8-10.6)
[2023-03-01 18:28] LABS: HGB 6.7 gm/dL (11.4-16.0)
[2023-03-01 18:36] LABS: ALT 14 U/L (4-34); AST 22 U/L (14-36); African American GFR (CKD) 27 (>60 ml/min/1.73 sqM); Albumin 3.3 g/dL (3.5-5.0); Albumin/Globulin Ratio 1.1; Alkaline Phosphatase 72 U/L (38-126); Anion Gap 7 mmol/L; Blood Urea Nitrogen 75 mg/dL (7-17); Calcium 8.8 mg/dL (8.4-10.2); Carbon Dioxide 32 mmol/L (22-30); Chloride 101 mmol/L (98-107); Globulin 3.1 g/dL; Glucose 123 mg/dL (74-99); Non-African American GFR(CKD) 24 (>60 ml/min/1.73 sqM); Potassium 4.7 mmol/L (3.5-5.1); Sodium 140 mmol/L (137-145); Total Bilirubin 0.8 mg/dL (0.2-1.3); Total Protein 6.4 g/dL (6.3-8.2)
== END | disposition home or self-care (01) ==
LOC: LABMAIN 17:35
PROVIDERS: ATTEND Family Medicine
DX: E11.22 Type 2 diabetes mellitus with diabetic chronic kidney disease (principal); D63.1 Anemia in chronic kidney disease; N18.9 Chronic kidney disease, unspecified
CPT/HCPCS: 80053; 85025

== ENCOUNTER 2023-04-04 14:50 | Emergency (ER) | payer MEDICARE, OTHER ==
[2023-04-04] MEDS ORDERED: SODIUM CHLORIDE 0.9% 1,000 ML IV STA (15:08)
[2023-04-04 15:45] LABS: Anisocytosis Slight; Basophils % (A) 0 %; Eosinophils # (A) 0.1 k/uL (0-0.7); Eosinophils % (A) 2 %; Hypochromasia Marked; Lymphocytes # (A) 0.7 k/uL (1.0-4.8); Lymphocytes % (A) 12 %; MCH 26.7 pg (25.0-35.0); Mean Platelet Volume 10.5; Monocytes # (A) 0.4 k/uL (0-1.0); Monocytes % (A) 7 %; Neutrophils # (A) 4.5 k/uL (1.3-7.7); Neutrophils % (A) 78 %; Platelet Count 155 k/uL (150-450); Poikilocytosis Slight; RBC 1.86 m/uL (3.80-5.40); RDW 17.4 % (11.5-15.5); WBC 5.8 k/uL (3.8-10.6)
[2023-04-04 15:50] LABS: MCV 86.2 fL (80.0-100.0)
[2023-04-04] MEDS ORDERED: PANTOPRAZOLE 40 MG/10 ML VIAL IVP STA (15:53)
[2023-04-04 15:56] LABS: INR 1.2 (<1.2); Partial Thromboplastin Time 22.3 sec (22.0-30.0)
[2023-04-04 16:00] LABS: ALT 15 U/L (4-34); AST 23 U/L (14-36); African American GFR (CKD) 16 (>60 ml/min/1.73 sqM); Albumin 3.6 g/dL (3.5-5.0); Alkaline Phosphatase 84 U/L (38-126); Anion Gap 11 mmol/L; Blood Urea Nitrogen 79 mg/dL (7-17); Calcium 8.6 mg/dL (8.4-10.2); Carbon Dioxide 25 mmol/L (22-30); Chloride 102 mmol/L (98-107); Glucose 141 mg/dL (74-99); Magnesium 2.5 mg/dL (1.6-2.3); Non-African American GFR(CKD) 14 (>60 ml/min/1.73 sqM); Potassium 5.4 mmol/L (3.5-5.1); Sodium 138 mmol/L (137-145); Total Bilirubin 0.5 mg/dL (0.2-1.3); Total Protein 6.8 g/dL (6.3-8.2)
--- NOTE | 2023-04-04 16:20 | XR ---
EXAMINATION TYPE: XR chest 2V DATE OF EXAM: 04/04/2023 3:31 PM COMPARISON: Chest radiographs from 12/16/2022 TECHNIQUE: XR chest 2V Frontal and lateral views of the chest. CLINICAL INDICATION:Female, 73 years old with history of Weakness; FINDINGS: Lungs/Pleura: There is no evidence of pleural effusion, focal consolidation, or pneumothorax. Pulmonary vascularity: Pulmonary vascular congestion. Heart/mediastinum: Cardiomediastinal silhouette is enlarged and stable. Musculoskeletal: No acute osseous pathology. Midline sternotomy wires are noted. IMPRESSION: Cardiomegaly and mild pulmonary vascular congestion. Correlate with BNP for congestive heart failure.
--- NOTE | 2023-04-04 17:03 | ED ---
General Adult HPI - General Chief complaint: Syncope Stated complaint: Syncope Time Seen by Provider: 04/04/23 15:01 Source: patient, EMS, RN notes reviewed, old records reviewed Mode of arrival: EMS Limitations: no limitations - History of Present Illness Initial comments: Patient is a 73-year-old female with past medical history remarkable for atrial fibrillation, diabetes, CAD, hypertension, CABG, chronically on oxygen, recurrent GI bleed who presents emergency Department with weakness and multiple syncopal episodes. Has been ongoing for 2-3 weeks. Has no some darker stools. Denies any black stools or gross blood. Is not throwing up blood. Denies abdominal pain. Denies shortness of breath or chest pain. No other acute complaints at this time. Presents for concern for her generalized weakness which is progressively getting worse. Patient is on blood thinners. Denies any fevers, chills, cough, chest pain, shortness of breath. Denies any urinary complaints. Presents for further evaluation. Patient does have a history of a bleeding ulcer on EGD. - Related Data Home Medications Medication Instructions Recorded Confirmed Atorvastatin [Lipitor] 40 mg PO HS 08/10/16 12/17/22 Isosorbide Mononitrate [Isosorbide 30 mg PO DAILY 08/10/16 12/17/22 Mononitrate ER] Oxybutynin Chloride 5 mg PO BID 08/10/16 12/17/22 Mirtazapine [Remeron] 15 mg PO HS 04/12/22 12/17/22 Acetaminophen Tab [Tylenol] 650 mg PO Q6H PRN 05/08/22 12/17/22 Omeprazole [PriLOSEC] 20 mg PO DAILY 05/22/22 12/17/22 Apixaban [Eliquis] 5 mg PO BID 07/09/22 12/17/22 INSULIN ASPART (NovoLOG) [NovoLOG See Protocol SQ AC-TID 07/09/22 12/17/22 (formulary)] Insulin Detemir (Levemir) [Levemir] 60 unit SQ BID 07/09/22 12/17/22 Amiodarone [Cordarone] 200 mg PO DAILY 12/17/22 12/17/22 Aspirin EC [Ecotrin Low Dose] 81 mg PO DAILY 12/17/22 12/17/22 HYDROcodone/APAP 10-325MG [[place] 1 tab PO QID PRN 12/17/22 12/17/22 10-325] Levothyroxine Sodium [Synthroid] 50 mcg PO DAILY 12/17/22 12/17/22 Potassium Chloride [Potassium 20 meq PO DAILY 12/17/22 12/17/22 Chloride ER (K-Dur GEQ)] Sertraline [Zoloft] 100 mg PO DAILY 12/17/22 12/17/22 Previous Rx's Medication Instructions Recorded Gabapentin [Neurontin] 300 mg PO BID #6 cap 07/14/22 Furosemide [Lasix] 40 mg PO BID@0900,1600 #180 tab 12/20/22 Metoprolol Succinate (ER) [Toprol 25 mg PO DAILY #90 tab 12/20/22 XL] Allergies Allergy/AdvReac Type Severity Reaction Status Date / Time ibuprofen [From Motrin] Allergy Rash/Hives Verified 04/04/23 14:56 Penicillins Allergy Anaphylaxis Verified 04/04/23 14:56 Review of Systems ROS Statement: Those systems with pertinent positive or pertinent negative responses have been documented in the HPI. Review of Systems: CONST: Denies fever EYES: Denies blurry vision ENT: Denies nasal congestion C/V: Denies Chest pain RESP: Denies shortness of breath GI: Denies abdominal pain : Denies dysuria SKIN: Denies rash. MSK: Denies joint pain. NEURO: Endorses weakness ROS Other: All systems not noted in ROS Statement are negative. Past Medical History Past Medical History: Atrial Fibrillation, Coronary Artery Disease (CAD), Diabetes Mellitus, Eye Disorder, Hyperlipidemia, Hypertension, Osteoarthritis (OA), Pneumonia, Renal Disease, Sleep Apnea/CPAP/BIPAP, Thyroid Disorder Additional Past Medical History / Comment(s): Pt recently admitted to [facility] on 05/08/22 with anemia/had EGD and colonoscopy which showed nonbleeding stomach ulcer/diverticular disease and colon polyp, pt received blood transfusions. Other hx: 02/12/22 covid/pneumonia/sepsis, other past pneumonias, acute hypoxic respiratory failure/now on home oxygen ATC, new A fib with RVR, IDDM type II, neuropathy bilateral feet, L eye retinal bleed/lasik eye surgery, R eye cataract, bilateral eye macular degeneration/gets injections/poor vision, CKD stage III, anemia, UTI/sepsis, bilateral leg lymphedema, FLORES/does not have cpap machine at this time, diverticulitis, gout, chronic back pain, rheumatic fever, hypothyroid. History of Any Multi-Drug Resistant Organisms: ESBL Date of last positivie culture/infection: 05/22/22 ESBL Klebsiella MDRO Source:: Urine Past Surgical History: Bariatric Surgery, Section, Cholecystectomy, Coronary Bypass/CABG, Heart Catheterization, Hysterectomy, Orthopedic Surgery, Tonsillectomy Additional Past Surgical History / Comment(s): EGD, colonoscopy, 2 vessel CABG in 1996, bilateral carpal tunnel release, lap band, L eye laser surgery, Past Anesthesia/Blood Transfusion Reactions: No Reported Reaction Past Psychological History: Depression Smoking Status: Never smoker - Past Family History Father History Unknown: Yes Family Medical History: Cancer, Coronary Artery Disease (CAD), Diabetes Mellitus Additional Family Medical History / Comment(s): Prostate cancer Mother History Unknown: Yes Family Medical History: Cancer Additional Family Medical History / Comment(s): Bone cancer. General Exam - General Exam Comments Initial Comments: General: Appears in no acute distress. Obese. HEAD: Normal with no signs of head trauma. EYES: PERRLA, EOMI, conjunctiva pale, no discharge. ENT: Hearing grossly intact, normal oropharynx. RESPIRATORY: Clear breath sounds bilaterally. No wheezes, rales, or rhonchi. C/V: irregular rate and rhythm. S1 and S2 auscultated, peripheral pulses 2+ and intact throughout ABD: Abd is soft, nontender, nondistended. Rectal exam performed in the presence of a female staff member. Negative for gross blood. Good rectal tone. Uncomplicated external hemorrhoids. EXT: Normal range of motion, no obvious deformity SKIN: No rashes or lesions observed on exposed skin. NEURO: Alert and oriented x 4. Cranial nerves II-XII intact. No focal sensory or strength deficits. Limitations: no limitations Course Vital Signs 04/04/23 04/04/23 04/04/23 14:52 14:56 16:10 Temperature 98.6 F Pulse Rate 52 L 48 L Respiratory 20 22 20 Rate Blood Pressure 102/41 110/45 O2 Sat by Pulse 100 95 Oximetry 04/04/23 04/04/23 04/04/23 18:05 18:27 18:45 Temperature 97.1 F L 97.7 F Pulse Rate 48 L 50 L 50 L Respiratory 20 20 20 Rate Blood Pressure 126/51 145/59 124/48 O2 Sat by Pulse 100 Oximetry 04/04/23 19:05 Temperature 97.8 F Pulse Rate 51 L Respiratory 18 Rate Blood Pressure 140/68 O2 Sat by Pulse Oximetry Medical Decision Making - Medical Decision Making Was pt. sent in by a medical professional or institution (, PA, INFUSION PHARMACIST, urgent care, hospital, or alf...) When possible be specific @ -No Did you speak to anyone other than the patient for history (EMS, parent, family, police, friend...)? What history was obtained from this source @ -No Did you review nursing and triage notes (agree or disagree)? Why? @ -I reviewed and agree with nursing and triage notes Were old charts reviewed (outside hosp., previous admission, EMS record, old EKG, old radiological studies, urgent care reports/EKG's, alf records)? Report findings @ -Old charts reviewed including EKGs Differential Diagnosis (chest pain, altered mental status, abdominal pain women, abdominal pain men, vaginal bleeding, weakness, fever, dyspnea, syncope, headache, dizziness, GI bleed, back pain, seizure, CVA, palpatations, mental health, musculoskeletal)? @ -Differential Weakness: Hypoglycemia, shock, sepsis, hyponatremia, anemia, infection, NM, ETOH, adverse medicine reaction, overdose, stroke, this is not meant to be an all-inclusive list. EKG interpreted by me (3pts min.). @ -As above X-rays interpreted by me (1pt min.). @ -Chest x-ray shows chronic cardiomegaly with mild pulmonary vascular congestion. CT interpreted by me (1pt min.). @ -None done U/S interpreted by me (1pt. min.). @ -None done What testing was considered but not performed or refused? (CT, X-rays, U/S, labs)? Why? @ -None What meds were considered but not given or refused? Why? @ -None Did you discuss the management of the patient with other professionals (professionals i.e. , PA, INFUSION PHARMACIST, lab, RT, psych nurse, social media content specialist, budget engineer, teacher, safety instruction police officer, onsite case manager)? Give summary @ -I discussed the patient's PCP Dr. Cruz who recommended transfer to outside facility with GI services available. Also spoke with on-call general surgery Dr. Combs who also recommended transfer outside facility or GI services are available I spoke with the accepting GI doctor at [facility] Dr. Kennedy. I also spoke with the accepting ER doctor Dr. Gomes. I also spoke with initially the medical accepting physician Dr. Recinos, however patient instead will be transferred to the ER. all 3 accepted the transfer. Was smoking cessation discussed for >3mins.? @ -No Was critical care preformed (if so, how long)? @ -Yes, 42 minutes Were there social determinants of health that impacted care today? How? (Homelessness, low income, unemployed, alcoholism, drug addiction, transportation, low edu. Level, literacy, decrease access to med. care, intermediate, rehab)? @ -No Was there de-escalation of care discussed even if they declined (Discuss DNR or withdrawal of care, Hospice)? DNR status @ -No What co-morbidities impacted this encounter? (DM, HTN, Smoking, COPD, CAD, Cancer, CVA, ARF, Chemo, Hep., AIDS, mental health diagnosis, sleep apnea, morbid obesity)? @ -History of GI bleeds, chronic anemia Was patient admitted / discharged? Hospital course, mention meds given and route, prescriptions, significant lab abnormalities, going to OR and other pertinent info. @ -Based on the patient's presentation and physical exam, I'm concerned for Hospital dehydration, infectious or possible worsening anemia cause for her symptoms. Rectal exam is unremarkable but we will send a call as well as obtain drugs labs. Patient was in agreement this plan. She'll be sent directly treated with IV Protonix as well as a 1 L IV fluid bolus at this time. Vital signs are within acceptable limits. EKG shows no signs of acute ischemia. Chest x-ray shows possible mild pulmonary vascular congestion but no acute change. Labs are remarkable for an anemia 5.0, which is a change from 1 month ago when she was 6.7. Patient has an AK I on CK D with creatinine of 3.18 and BUN of 79 which is somewhat chronic for the patient. Troponin is mildly elevated to 0.056 which is likely secondary to the underlying anemia. Occult blood returned positive. Vital signs negative. At this time, I did reach out to patient's PCP, Dr. Cruz regarding the patient and he recommended transfer secondary to the concern for GI bleed and we do not have GI services. I also spoke with Dr. Combs who is is general surgery bridal stylist sales consultant who recommends transfer. Patient is a history of bleeding ulcer her previous EGD results. I did the patient and she was in agreement with this plan. Vital signs remained within acceptable limits. Patient was ordered 2 units of packed red blood cells. She'll be received IV Protonix. We will hold her Elliquis at this time. I spoke with [facility] GI physician Dr. Kennedy who accepted the transfer. I also spoke with initially inpatient physician Dr. recinos, however as there are no beds, and transfer team therefore transferred me to the ER doctor Eliseo who accepted the transfer. Patient will be transferred for further workup and evaluation by GI services which are not available at our hospital. Undiagnosed new problem with uncertain prognosis? @ -No Drug Therapy requiring intensive monitoring for toxicity (Heparin, Nitro, Insulin, Cardizem)? @ -No Were any procedures done? @ -No Diagnosis/symptom? @ -Blood loss anemia, occult GI bleed Acute, or Chronic, or Acute on Chronic? @ -Acute on chronic Uncomplicated (without systemic symptoms) or Complicated (systemic symptoms)? @ -Complicated Side effects of treatment? @ -none Exacerbation, Progression, or Severe Exacerbation] @ -no Poses a threat to life or bodily function? @ -yes Diagnosis/symptom? @ -Acute kidney injury Acute, or Chronic, or Acute on Chronic? @ -Acute on chronic Uncomplicated (without systemic symptoms) or Complicated (systemic symptoms)? @ -Complicated Side effects of treatment? @ -none Exacerbation, Progression, or Severe Exacerbation] @ -no Poses a threat to life or bodily function? @ -Yes Diagnosis/symptom? @ -A. fib on blood thinners Acute, or Chronic, or Acute on Chronic? @ -Chronic Uncomplicated (without systemic symptoms) or Complicated (systemic symptoms)? @ -Complicated Side effects of treatment? @ -none Exacerbation, Progression, or Severe Exacerbation] @ -no Poses a threat to life or bodily function? @ -no Diagnosis/symptom? @ -Elevated troponin Acute, or Chronic, or Acute on Chronic? @ -Acute Uncomplicated (without systemic symptoms) or Complicated (systemic symptoms)? @ -Uncomplicated Side effects of treatment? @ -none Exacerbation, Progression, or Severe Exacerbation] @ -no Poses a threat to life or bodily function? @ -no Diagnosis/symptom? @ -syncope Acute, or Chronic, or Acute on Chronic? @ -Acute Uncomplicated (without systemic symptoms) or Complicated (systemic symptoms)? @ -Uncomplicated Side effects of treatment? @ -none Exacerbation, Progression, or Severe Exacerbation] @ -no Poses a threat to life or bodily function? @ -no - Lab Data Result diagrams: 04/04/23 15:17 04/04/23 15:17 Lab Results 04/04/23 04/04/23 04/04/23 Range/Units 15:17 15:17 15:17 WBC 5.8 (3.8-10.6) k/uL RBC 1.86 L (3.80-5.40) m/uL Hgb 5.0 L* D (11.4-16.0) gm/dL Hct 16.0 L* (34.0-46.0) % MCV 86.2 D (80.0-100.0) fL MCH 26.7 (25.0-35.0) pg MCHC 31.0 (31.0-37.0) g/dL RDW 17.4 H (11.5-15.5) % Plt Count 155 (150-450) k/uL MPV 10.5 Neutrophils % 78 % Lymphocytes % 12 % Monocytes % 7 % Eosinophils % 2 % Basophils % 0 % Neutrophils # 4.5 (1.3-7.7) k/uL Lymphocytes # 0.7 L (1.0-4.8) k/uL Monocytes # 0.4 (0-1.0) k/uL Eosinophils # 0.1 (0-0.7) k/uL Basophils # 0.0 (0-0.2) k/uL Hypochromasia Marked Poikilocytosis Slight Anisocytosis Slight PT 12.0 (9.0-12.0) sec INR 1.2 H (<1.2) APTT 22.3 (22.0-30.0) sec Sodium 138 (137-145) mmol/L Potassium 5.4 H (3.5-5.1) mmol/L Chloride 102 (98-107) mmol/L Carbon Dioxide 25 (22-30) mmol/L Anion Gap 11 mmol/L BUN 79 H (7-17) mg/dL Creatinine 3.18 H (0.52-1.04) mg/dL Est GFR (CKD-EPI)AfAm 16 (>60 ml/min/1.73 sqM) Est GFR (CKD-EPI)NonAf 14 (>60 ml/min/1.73 sqM) Glucose 141 H (74-99) mg/dL Plasma Lactic Acid Garcia (0.7-2.0) mmol/L Calcium 8.6 (8.4-10.2) mg/dL Magnesium 2.5 H (1.6-2.3) mg/dL Total Bilirubin 0.5 (0.2-1.3) mg/dL AST 23 (14-36) U/L ALT 15 (4-34) U/L Alkaline Phosphatase 84 (38-126) U/L Troponin I (0.000-0.034) ng/mL Total Protein 6.8 (6.3-8.2) g/dL Albumin 3.6 (3.5-5.0) g/dL Stool Occult Blood (Negative) Influenza Type A (PCR) (Not Detectd) Influenza Type B (PCR) (Not Detectd) RSV (PCR) (Not Detectd) SARS-CoV-2 (PCR) (Not Detectd) Blood Type Blood Type Recheck Bld Type Recheck Status Antibody Screen Crossmatch Spec Expiration Date 04/04/23 04/04/23 04/04/23 Range/Units 15:17 15:17 15:17 WBC (3.8-10.6) k/uL RBC (3.80-5.40) m/uL Hgb (11.4-16.0) gm/dL Hct (34.0-46.0) % MCV (80.0-100.0) fL MCH (25.0-35.0) pg MCHC (31.0-37.0) g/dL RDW (11.5-15.5) % Plt Count (150-450) k/uL MPV Neutrophils % % Lymphocytes % % Monocytes % % Eosinophils % % Basophils % % Neutrophils # (1.3-7.7) k/uL Lymphocytes # (1.0-4.8) k/uL Monocytes # (0-1.0) k/uL Eosinophils # (0-0.7) k/uL Basophils # (0-0.2) k/uL Hypochromasia Poikilocytosis Anisocytosis PT (9.0-12.0) sec INR (<1.2) APTT (22.0-30.0) sec Sodium (137-145) mmol/L Potassium (3.5-5.1) mmol/L Chloride (98-107) mmol/L Carbon Dioxide (22-30) mmol/L Anion Gap mmol/L BUN (7-17) mg/dL Creatinine (0.52-1.04) mg/dL Est GFR (CKD-EPI)AfAm (>60 ml/min/1.73 sqM) Est GFR (CKD-EPI)NonAf (>60 ml/min/1.73 sqM) Glucose (74-99) mg/dL Plasma Lactic Acid Garcia 1.5 (0.7-2.0) mmol/L Calcium (8.4-10.2) mg/dL Magnesium (1.6-2.3) mg/dL Total Bilirubin (0.2-1.3) mg/dL AST (14-36) U/L ALT (4-34) U/L Alkaline Phosphatase (38-126) U/L Troponin I 0.056 H* (0.000-0.034) ng/mL Total Protein (6.3-8.2) g/dL Albumin (3.5-5.0) g/dL Stool Occult Blood (Negative) Influenza Type A (PCR) Not Detected (Not Detectd) Influenza Type B (PCR) Not Detected (Not Detectd) RSV (PCR) Not Detected (Not Detectd) SARS-CoV-2 (PCR) Not Detected (Not Detectd) Blood Type Blood Type Recheck Bld Type Recheck Status Antibody Screen Crossmatch Spec Expiration Date 04/04/23 04/04/23 Range/Units 16:02 16:46 WBC (3.8-10.6) k/uL RBC (3.80-5.40) m/uL Hgb (11.4-16.0) gm/dL Hct (34.0-46.0) % MCV (80.0-100.0) fL MCH (25.0-35.0) pg MCHC (31.0-37.0) g/dL RDW (11.5-15.5) % Plt Count (150-450) k/uL MPV Neutrophils % % Lymphocytes % % Monocytes % % Eosinophils % % Basophils % % Neutrophils # (1.3-7.7) k/uL Lymphocytes # (1.0-4.8) k/uL Monocytes # (0-1.0) k/uL Eosinophils # (0-0.7) k/uL Basophils # (0-0.2) k/uL Hypochromasia Poikilocytosis Anisocytosis PT (9.0-12.0) sec INR (<1.2) APTT (22.0-30.0) sec Sodium (137-145) mmol/L Potassium (3.5-5.1) mmol/L Chloride (98-107) mmol/L Carbon Dioxide (22-30) mmol/L Anion Gap mmol/L BUN (7-17) mg/dL Creatinine (0.52-1.04) mg/dL Est GFR (CKD-EPI)AfAm (>60 ml/min/1.73 sqM) Est GFR (CKD-EPI)NonAf (>60 ml/min/1.73 sqM) Glucose (74-99) mg/dL Plasma Lactic Acid Garcia (0.7-2.0) mmol/L Calcium (8.4-10.2) mg/dL Magnesium (1.6-2.3) mg/dL Total Bilirubin (0.2-1.3) mg/dL AST (14-36) U/L ALT (4-34) U/L Alkaline Phosphatase (38-126) U/L Troponin I (0.000-0.034) ng/mL Total Protein (6.3-8.2) g/dL Albumin (3.5-5.0) g/dL Stool Occult Blood Positive H (Negative) Influenza Type A (PCR) (Not Detectd) Influenza Type B (PCR) (Not Detectd) RSV (PCR) (Not Detectd) SARS-CoV-2 (PCR) (Not Detectd) Blood Type O Positive Blood Type Recheck O Pos Bld Type Recheck Status No Antibody Screen NEGATIVE Crossmatch See Detail Spec Expiration Date 04/07/20232301 - EKG Data -: EKG Interpreted by Me EKG Comments: 12-lead Electrocardiogram Interpretation Note EKG was reviewed and interpreted by myself. 12-lead ECG performed at 1459 is interpreted by me as revealing atrial fibrillation with slow ventricular response at a rate of 51 beats per minute. Right axis deviation. Right bundle branch block. QRS duration 182 ms, QTc is 458 ms.. There were no ST or T wave abnormalities to suggest myocardial ischemia or injury. R wave progression across the precordium was delayed. By my interpretation this EKG is non- diagnostic for acute ischemia. When compared with Prior EKG from November 2022, no significant change. Critical Care Time Critical Care Time: Yes Total Critical Care Time: 42 Disposition Clinical Impression: GI bleed, Symptomatic anemia, Acute kidney injury superimposed on CKD, Afib, Elevated troponin, Syncope Disposition: OTHER INSTITUTION NOT DEFINED Condition: Serious Referrals: Marcelino Cruz Jr, [Primary Care Provider] - 1-2 days Time of Disposition: 18:00 - Out of Hospital Transfer - Req. Specs Out of Hospital Transfer - Requested Specifics: Other Emergency Center (Transferred to [facility] for further care and GI eval as we do not have GI available at our facility.)
[2023-04-04 19:09] VITALS: BP 140/68; PULSE 51; RESP 18; TEMP 97.8
== END 2023-04-04 19:25 | disposition other institution (70) ==
LOC: EC 14:50
DX: D64.9 Anemia, unspecified (principal); K92.2 Gastrointestinal hemorrhage, unspecified; I48.91 Unspecified atrial fibrillation; R79.89 Other specified abnormal findings of blood chemistry; R55 Syncope and collapse; N17.9 Acute kidney failure, unspecified; I25.10 Atherosclerotic heart disease of native coronary artery without angina pectoris; E11.22 Type 2 diabetes mellitus with diabetic chronic kidney disease; I13.0 Hypertensive heart and chronic kidney disease with heart failure and stage 1 through stage 4 chronic kidney disease, or unspecified chronic kidney disease; I50.9 Heart failure, unspecified; N18.30 Chronic kidney disease, stage 3 unspecified; M19.90 Unspecified osteoarthritis, unspecified site; E78.5 Hyperlipidemia, unspecified; E07.9 Disorder of thyroid, unspecified; F32.A Depression, unspecified; Z86.16 Personal history of COVID-19; Z88.0 Allergy status to penicillin; Z88.6 Allergy status to analgesic agent; Z79.890 Hormone replacement therapy; Z79.4 Long term (current) use of insulin; Z79.01 Long term (current) use of anticoagulants; Z79.82 Long term (current) use of aspirin; Z79.899 Other long term (current) drug therapy; Z20.822 Contact with and (suspected) exposure to COVID-19
CPT/HCPCS: 36415; 93005; 86900; 86901; 80053; 83605; 83735; 84484; 85025; 85610; 85730; 86850; 86920; 82272; 87636; 71046; 99291; 36430; P9016; C9113

== ENCOUNTER 2023-06-05 15:59 | Emergency (ER) | payer MEDICARE, OTHER ==
[2023-06-05 16:25] VITALS: TEMP 97.6
--- NOTE | 2023-06-05 16:32 | ED ---
Fall HPI - General Chief Complaint: Fall Stated Complaint: fall Time Seen by Provider: 06/05/23 16:10 Source: patient Mode of arrival: wheelchair - History of Present Illness Initial Comments: This patient is a 73-year-old woman who presents 7 evaluation after she tripped over her oxygen tubing and fell. The patient states that when she fell she struck her left humerus/shoulder and the right forehead. Patient states that she was instructed she should have an examination a time she falls that she was taking blood thinners for atrial fibrillation. Patient denies any neurologic symptoms. States she does have mild to moderate right frontal headache since the fall. No neck pain. She denies other injuries. 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 Fall Witnessed: yes, by family Place Fall Occurred: home Loss of Consciousness: none Prolonged Down Time?: no Symptoms Prior to Fall: none Location: head Location - Extremities: Left: Shoulder, Arm Severity: moderate Quality: aching Context: tripped/slipped - Related Data Home Medications Medication Instructions Recorded Confirmed Atorvastatin [Lipitor] 40 mg PO HS 08/10/16 12/17/22 Isosorbide Mononitrate [Isosorbide 30 mg PO DAILY 08/10/16 12/17/22 Mononitrate ER] Oxybutynin Chloride 5 mg PO BID 08/10/16 12/17/22 Mirtazapine [Remeron] 15 mg PO HS 04/12/22 12/17/22 Acetaminophen Tab [Tylenol] 650 mg PO Q6H PRN 05/08/22 12/17/22 Omeprazole [PriLOSEC] 20 mg PO DAILY 05/22/22 12/17/22 Apixaban [Eliquis] 5 mg PO BID 07/09/22 12/17/22 INSULIN ASPART (NovoLOG) [NovoLOG See Protocol SQ AC-TID 07/09/22 12/17/22 (formulary)] Insulin Detemir (Levemir) [Levemir] 60 unit SQ BID 07/09/22 12/17/22 Amiodarone [Cordarone] 200 mg PO DAILY 12/17/22 12/17/22 Aspirin EC [Ecotrin Low Dose] 81 mg PO DAILY 12/17/22 12/17/22 HYDROcodone/APAP 10-325MG [Marion 1 tab PO QID PRN 12/17/22 12/17/22 10-325] Levothyroxine Sodium [Synthroid] 50 mcg PO DAILY 12/17/22 12/17/22 Potassium Chloride [Potassium 20 meq PO DAILY 12/17/22 12/17/22 Chloride ER (K-Dur GEQ)] Sertraline [Zoloft] 100 mg PO DAILY 12/17/22 12/17/22 Previous Rx's Medication Instructions Recorded Gabapentin [Neurontin] 300 mg PO BID #6 cap 07/14/22 Furosemide [Lasix] 40 mg PO BID@0900,1600 #180 tab 12/20/22 Metoprolol Succinate (ER) [Toprol 25 mg PO DAILY #90 tab 12/20/22 XL] Allergies Allergy/AdvReac Type Severity Reaction Status Date / Time ibuprofen [From Motrin] Allergy Rash/Hives Verified 06/05/23 16:06 Penicillins Allergy Anaphylaxis Verified 06/05/23 16:06 Review of Systems ROS Statement: Those systems with pertinent positive or pertinent negative responses have been documented in the HPI. ROS Other: All systems not noted in ROS Statement are negative. Constitutional: Denies: fever, chills, weakness Eyes: Denies: vision change ENT: Denies: epistaxis Respiratory: Denies: cough, dyspnea Cardiovascular: Denies: chest pain, palpitations Gastrointestinal: Denies: abdominal pain, vomiting Genitourinary: Denies: dysuria, hematuria Musculoskeletal: Reports: arthralgia. Denies: back pain Skin: Denies: rash Neurological: Denies: headache, weakness, numbness Hematological/Lymphatic: Reports: easy bleeding Past Medical History Past Medical History: Atrial Fibrillation, Coronary Artery Disease (CAD), COPD, Diabetes Mellitus, Eye Disorder, Hyperlipidemia, Hypertension, Osteoarthritis (OA), Pneumonia, Renal Disease, Sleep Apnea/CPAP/BIPAP, Thyroid Disorder Additional Past Medical History / Comment(s): Pt recently admitted to [facility] on 05/08/22 with anemia/had EGD and colonoscopy which showed nonbleeding stomach ulcer/diverticular disease and colon polyp, pt received blood transfusions. Other hx: 02/12/22 covid/pneumonia/sepsis, other past pneumonias, acute hypoxic respiratory failure/now on home oxygen ATC, new A fib with RVR, IDDM type II, neuropathy bilateral feet, L eye retinal bleed/lasik eye surgery, R eye cataract, bilateral eye macular degeneration/gets injections/poor vision, CKD stage III, anemia, UTI/sepsis, bilateral leg lymphedema, FLORES/does not have cpap machine at this time, diverticulitis, gout, chronic back pain, rheumatic fever, hypothyroid. History of Any Multi-Drug Resistant Organisms: ESBL Date of last positivie culture/infection: 05/22/22 ESBL Klebsiella MDRO Source:: Urine Past Surgical History: Bariatric Surgery, Section, Cholecystectomy, Coronary Bypass/CABG, Heart Catheterization, Hysterectomy, Orthopedic Surgery, Tonsillectomy Additional Past Surgical History / Comment(s): EGD, colonoscopy, 2 vessel CABG in 1996, bilateral carpal tunnel release, lap band, L eye laser surgery, Past Anesthesia/Blood Transfusion Reactions: No Reported Reaction Past Psychological History: Depression Smoking Status: Never smoker Past Alcohol Use History: None Reported Past Drug Use History: None Reported - Past Family History Father History Unknown: Yes Family Medical History: Cancer, Coronary Artery Disease (CAD), Diabetes Mellitus Additional Family Medical History / Comment(s): Prostate cancer Mother History Unknown: Yes Family Medical History: Cancer Additional Family Medical History / Comment(s): Bone cancer. General Exam Limitations: no limitations General appearance: alert, in no apparent distress Head exam: Present: normocephalic, other (There is a right frontal contusion. There is moderate tenderness, no deformity.) Eye exam: Present: normal appearance. Absent: scleral icterus, conjunctival injection ENT exam: Present: normal oropharynx Neck exam: Present: normal inspection Respiratory exam: Present: normal lung sounds bilaterally. Absent: respiratory distress, wheezes, rales, rhonchi, stridor Cardiovascular Exam: Present: regular rate, normal rhythm, normal heart sounds. Absent: systolic murmur, diastolic murmur, rubs, gallop GI/Abdominal exam: Present: soft. Absent: tenderness, guarding, rebound, rigid Extremities exam: Present: tenderness, normal capillary refill, other (Contusion lateral aspect left proximal humerus, moderate tenderness, no palpable deformity). Absent: full ROM Back exam: Present: normal inspection. Absent: CVA tenderness (R), CVA tenderness (L), vertebral tenderness Neurological exam: Present: alert, oriented X3, CN II-XII intact. Absent: motor sensory deficit Skin exam: Present: warm, dry, intact. Absent: rash Course Vital Signs 06/05/23 06/05/23 16:01 17:20 Temperature 97.6 F Pulse Rate 60 61 Respiratory 22 18 Rate Blood Pressure 113/44 143/48 O2 Sat by Pulse 92 L 98 Oximetry Medical Decision Making - Medical Decision Making The patient had x-ray of the humerus which I interpreted as negative for acute bony injury or dislocation The patient had computed tomography scan of the brain which I interpreted as negative for acute intracranial hemorrhage or acute bony trauma Was pt. sent in by a medical professional or institution (, PA, [employer]ING LABORER, urgent care, hospital, or usp...) When possible be specific @ -Yes Did you speak to anyone other than the patient for history (EMS, parent, family, police, friend...)? What history was obtained from this source @ -[No] Did you review nursing and triage notes (agree or disagree)? Why? @ -[I reviewed and agree with nursing and triage notes] Were old charts reviewed (outside hosp., previous admission, EMS record, old EKG, old radiological studies, urgent care reports/EKG's, usp records)? Report findings @ -[No old charts were reviewed] Differential Diagnosis (chest pain, altered mental status, abdominal pain women, abdominal pain men, vaginal bleeding, weakness, fever, dyspnea, syncope, head ache, dizziness, GI bleed, back pain, seizure, CVA, palpatations, mental health, musculoskeletal)? @ -[Differential Musculoskeletal Muscular strain, contusion, ligament sprain, fracture, arthritis, septic arthritis, bursitis, cellulitis, muscle spasm, nerve compression, DVT, arterial occlusion, herpes zoster, electrolyte abnormality, tumor.... This is not meant to be in all inclusive list EKG interpreted by me (3pts min.). @ -[As above] X-rays interpreted by me (1pt min.). @ -[None done] CT interpreted by me (1pt min.). @ -[None done] U/S interpreted by me (1pt. min.). @ -[None done] What testing was considered but not performed or refused? (CT, X-rays, U/S, labs)? Why? @ -[None] What meds were considered but not given or refused? Why? @ -[None] Did you discuss the management of the patient with other professionals (professionals i.e. , PA, [employer]ING LABORER, lab, RT, psych nurse, social science teacher, lockstitch tunnel elastic operator, teacher, air crew officer, case manager specialist)? Give summary @ -[No] Was smoking cessation discussed for >3mins.? @ -[No] Was critical care preformed (if so, how long)? @ -[No] Were there social determinants of health that impacted care today? How? (Homelessness, low income, unemployed, alcoholism, drug addiction, transp ortation, low edu. Level, literacy, decrease access to med. care, correction, rehab)? @ -[No] Was there de-escalation of care discussed even if they declined (Discuss DNR or withdrawal of care, Hospice)? DNR status @ -[No] What co-morbidities impacted this encounter? (DM, HTN, Smoking, COPD, CAD, Cancer, CVA, ARF, Chemo, Hep., AIDS, mental health diagnosis, sleep apnea, morbid obesity)? @ -[None] Was patient admitted / discharged? Hospital course, mention meds given and route, prescriptions, significant lab abnormalities, going to OR and other pertinent info. @ -The patient is 73-year-old woman evaluated after she had fall injury. The radiology studies do not reveal acute fracture or intracranial hemorrhage. At this point patient stable for discharge, we discussed appropriate further care and follow-up as well as return parameters. Undiagnosed new problem with uncertain prognosis? @ -[No] Drug Therapy requiring intensive monitoring for toxicity (Heparin, Nitro, Insulin, Cardizem)? @ -[No] Were any procedures done? @ -[No] Diagnosis/symptom? @ -[Acute fall Acute minor head injury Acute arm contusion Acute, or Chronic, or Acute on Chronic? @ -[Acute Uncomplicated (without systemic symptoms) or Complicated (systemic symptoms)? @ -Uncomplicated Side effects of treatment? @ -[No] Exacerbation, Progression, or Severe Exacerbation? @ -[No] Poses a threat to life or bodily function? How? (Chest pain, [place], [place], pneumonia, PE, COPD, DKA, ARF, appy, cholecystitis, CVA, Diverticulitis, Homicidal, Suicidal, threat to staff... and all critical care pts) @ -[No] Disposition Clinical Impression: Fall, Minor head injury, Contusion, arm, upper Disposition: HOME SELF-CARE Condition: Good Instructions (If sedation given, give patient instructions): Fall Prevention for Older Adults (ED), Head Injury (ED), Contusion in Adults (ED) Is patient prescribed a controlled substance at d/c from ED?: No Referrals: Marcelino Cruz Jr, DO [Primary Care Provider] - 1-2 days
--- NOTE | 2023-06-05 16:42 | CT ---
EXAMINATION TYPE: CT brain wo con DATE OF EXAM: 06/05/2023 COMPARISON: None HISTORY: Fall, bruising to right side of head. CT DLP: 1050.4 mGycm Automated exposure control for dose reduction was used. FINDINGS: The ventricles, basal cisterns and sulci over the convexities within normal limits for the patient's age and there is no mass effect or shift of midline structures. There are 2 remote lacunar infarcts in left basal ganglia. There is mild chronic ischemic white matte r demyelination There is no acute intra or extra-axial hemorrhage. The posterior fossa including the brainstem, fourth ventricle and cerebellar pontine angles appear gr ossly normal. Intraorbital contents appear normal and symmetric. Visualized paranasal sinuses and mastoid air cells are well aerated. There is mild soft tissue swelling over the right frontal bone. The calvarium is intact. IMPRESSION: 1. Mild soft tissue swelling over the right frontal bone. The calvarium is intact. 2. No acute bleed or mass effect. 3. Remote lacunar infarcts in left basal ganglia. 4. Mild ischemic white matter demyelination and age-appropriate atrophy. IMPRESSION:
--- NOTE | 2023-06-05 16:43 | XR ---
Left humerus. HISTORY: Pain following fall COMPARISON: None TECHNIQUE: 2 views left humerus were obtained FINDINGS: Left humerus is intact and there is no fracture or focal intraosseous abnormality. There is no perios teal reaction or cortical disruption. The soft tissues unremarkable. IMPRESSION: No evidence of trauma to the left humerus.
[2023-06-05 17:25] VITALS: BP 143/48; PULSE 61; RESP 18
== END 2023-06-05 17:31 | disposition home or self-care (01) ==
LOC: EC 15:59
DX: S40.022A Contusion of left upper arm, initial encounter (principal); S09.90XA Unspecified injury of head, initial encounter; E11.22 Type 2 diabetes mellitus with diabetic chronic kidney disease; E11.36 Type 2 diabetes mellitus with diabetic cataract; E78.5 Hyperlipidemia, unspecified; G47.33 Obstructive sleep apnea (adult) (pediatric); I12.9 Hypertensive chronic kidney disease with stage 1 through stage 4 chronic kidney disease, or unspecified chronic kidney disease; I25.10 Atherosclerotic heart disease of native coronary artery without angina pectoris; I48.91 Unspecified atrial fibrillation; J44.9 Chronic obstructive pulmonary disease, unspecified; M19.90 Unspecified osteoarthritis, unspecified site; N18.30 Chronic kidney disease, stage 3 unspecified; E07.9 Disorder of thyroid, unspecified; F32.A Depression, unspecified; Z79.01 Long term (current) use of anticoagulants; Z79.4 Long term (current) use of insulin; Z79.82 Long term (current) use of aspirin; Z79.890 Hormone replacement therapy; Z79.899 Other long term (current) drug therapy; Z86.16 Personal history of COVID-19; Z88.6 Allergy status to analgesic agent; Z88.0 Allergy status to penicillin; Z90.49 Acquired absence of other specified parts of digestive tract; Z95.1 Presence of aortocoronary bypass graft; W01.0XXA Fall on same level from slipping, tripping and stumbling without subsequent striking against object, initial encounter
CPT/HCPCS: 70450; 99284

== ENCOUNTER 2023-09-20 15:18 | Inpatient (IN) | payer MEDICARE, OTHER ==
--- NOTE | 2023-09-20 15:56 | ED ---
General Adult HPI - General Chief complaint: Weakness Stated complaint: Weakness Time Seen by Provider: 09/20/23 15:25 Source: patient, EMS, RN notes reviewed, old records reviewed Mode of arrival: EMS Limitations: no limitations - History of Present Illness Initial comments: This is a 73-year-old female who presents to the emergency department complain ing of dyspnea. Patient states she was walking from her house to her car without oxygen and she became very short of breath such that she had to lay down on the ground. When EMS arrived she was having hard time breathing and her lips were blue. EMS stated when they gave her oxygen she perked right up and her oxygen went up to the high 90s. Patient is also states for the last few days she has been having intermittent episodes of chest pain. Patient denies any fever chills or cough. Patient has abdominal pain patient has nausea vomiting. Patient denies any increased calf pain or leg swelling. - Related Data Home Medications Medication Instructions Recorded Confirmed Atorvastatin [Lipitor] 40 mg PO HS 08/10/16 12/17/22 Isosorbide Mononitrate [Isosorbide 30 mg PO DAILY 08/10/16 12/17/22 Mononitrate ER] Oxybutynin Chloride 5 mg PO BID 08/10/16 12/17/22 Mirtazapine [Remeron] 15 mg PO HS 04/12/22 12/17/22 Acetaminophen Tab [Tylenol] 650 mg PO Q6H PRN 05/08/22 12/17/22 Omeprazole [PriLOSEC] 20 mg PO DAILY 05/22/22 12/17/22 Apixaban [Eliquis] 5 mg PO BID 07/09/22 12/17/22 INSULIN ASPART (NovoLOG) [NovoLOG See Protocol SQ AC-TID 07/09/22 12/17/22 (formulary)] Insulin Detemir (Levemir) [Levemir] 60 unit SQ BID 07/09/22 12/17/22 Amiodarone [Cordarone] 200 mg PO DAILY 12/17/22 12/17/22 Aspirin EC [Ecotrin Low Dose] 81 mg PO DAILY 12/17/22 12/17/22 HYDROcodone/APAP 10-325MG [Sterling 1 tab PO QID PRN 12/17/22 12/17/22 10-325] Levothyroxine Sodium [Synthroid] 50 mcg PO DAILY 12/17/22 12/17/22 Potassium Chloride [Potassium 20 meq PO DAILY 12/17/22 12/17/22 Chloride ER (K-Dur GEQ)] Sertraline [Zoloft] 100 mg PO DAILY 12/17/22 12/17/22 Previous Rx's Medication Instructions Recorded Gabapentin [Neurontin] 300 mg PO BID #6 cap 07/14/22 Furosemide [Lasix] 40 mg PO BID@0900,1600 #180 tab 12/20/22 Metoprolol Succinate (ER) [Toprol 25 mg PO DAILY #90 tab 12/20/22 XL] Allergies Allergy/AdvReac Type Severity Reaction Status Date / Time ibuprofen [From Motrin] Allergy Rash/Hives Verified 09/20/23 15:35 Penicillins Allergy Anaphylaxis Verified 09/20/23 15:35 Review of Systems ROS Statement: Those systems with pertinent positive or pertinent negative responses have been documented in the HPI. ROS Other: All systems not noted in ROS Statement are negative. Past Medical History Past Medical History: Atrial Fibrillation, Coronary Artery Disease (CAD), COPD, Diabetes Mellitus, Eye Disorder, Hyperlipidemia, Hypertension, Osteoarthritis (OA), Pneumonia, Renal Disease, Sleep Apnea/CPAP/BIPAP, Thyroid Disorder Additional Past Medical History / Comment(s): Pt recently admitted to [facility] on 05/08/22 with anemia/had EGD and colonoscopy which showed nonbleeding stomach ulcer/diverticular disease and colon polyp, pt received blood transfusions. Other hx: 02/12/22 covid/pneumonia/sepsis, other past pneumonias, acute hypoxic respiratory failure/now on home oxygen ATC, new A fib with RVR, IDDM type II, neuropathy bilateral feet, L eye retinal bleed/lasik eye surgery, R eye cataract, bilateral eye macular degeneration/gets injections/poor vision, CKD stage III, anemia, UTI/sepsis, bilateral leg lymphedema, FLORES/does not have cpap machine at this time, diverticulitis, gout, chronic back pain, rheumatic fever, hypothyroid. History of Any Multi-Drug Resistant Organisms: ESBL Date of last positivie culture/infection: 05/22/22 ESBL Klebsiella MDRO Source:: Urine Past Surgical History: Bariatric Surgery, Section, Cholecystectomy, Coronary Bypass/CABG, Heart Catheterization, Hysterectomy, Orthopedic Surgery, Tonsillectomy Additional Past Surgical History / Comment(s): EGD, colonoscopy, 2 vessel CABG in 1996, bilateral carpal tunnel release, lap band, L eye laser surgery, Past Anesthesia/Blood Transfusion Reactions: No Reported Reaction Past Psychological History: Depression Smoking Status: Never smoker Past Alcohol Use History: None Reported Past Drug Use History: None Reported - Past Family History Father History Unknown: Yes Family Medical History: Cancer, Coronary Artery Disease (CAD), Diabetes Mellitus Additional Family Medical History / Comment(s): Prostate cancer Mother History Unknown: Yes Family Medical History: Cancer Additional Family Medical History / Comment(s): Bone cancer. General Exam - General Exam Comments Initial Comments: GENERAL: Patient is well-developed and well-nourished. Patient is nontoxic and well- hydrated and is in mild distress. ENT: Neck is soft and supple. No significant lymphadenopathy is noted. Oropharynx is clear. Moist mucous membranes. Neck has full range of motion without eliciting any pain. EYES: The sclera were anicteric and conjunctiva were pink and moist. Extraocular movements were intact and pupils were equal round and reactive to light. Eyelids were unremarkable. PULMONARY: Unlabored respirations. Good breath sounds bilaterally. No audible rales rhonchi or wheezing was noted. CARDIOVASCULAR: There is a regular rate and rhythm without any murmurs gallops or rubs. ABDOMEN: Soft and nontender with normal bowel sounds. SKIN: Skin is clear with no lesions or rashes and otherwise unremarkable. NEUROLOGIC: Patient is alert and oriented x3. Cranial nerves II through XII are grossly intact. Motor and sensory are also intact. Normal speech, volume and content. Symmetrical smile. MUSCULOSKELETAL: Normal extremities with adequate strength and full range of motion. 1+ edema bilaterally LYMPHATICS: No significant lymphadenopathy is noted PSYCHIATRIC: Normal psychiatric evaluation. Limitations: no limitations Course Vital Signs 09/20/23 09/20/23 15:26 17:13 Temperature 97.6 F Pulse Rate 62 61 Respiratory 18 22 Rate Blood Pressure 126/61 123/38 O2 Sat by Pulse 100 95 Oximetry Medical Decision Making - Medical Decision Making EKG is interpreted by myself read EKG shows a sinus rhythm at 62 bpm WV interval 172 QRS is 208 QT interval is 493 QTc 499. Patient has a right bundle branch block. There is no ST segment elevation. Was pt. sent in by a medical professional or institution (, PA, CAR REPAIRER, urgent care, hospital, or shelter...) When possible be specific @ -No Did you speak to anyone other than the patient for history (EMS, parent, family, police, friend...)? What history was obtained from this source @ -No Did you review nursing and triage notes (agree or disagree)? Why? @ -I reviewed and agree with nursing and triage notes Were old charts reviewed (outside hosp., previous admission, EMS record, old EKG, old radiological studies, urgent care reports/EKG's, shelter records)? Report findings @ -I reviewed old labs and old charts on this patient Differential Diagnosis (chest pain, altered mental status, abdominal pain women, abdominal pain men, vaginal bleeding, weakness, fever, dyspnea, syncope, headache, dizziness, GI bleed, back pain, seizure, CVA, palpatations, mental health, musculoskeletal)? @ -Differential Dyspnea: Coronary syndrome, arrhythmia, tamponade, asthma, COPD, pulmonary embolism, pneumonia, pneumothorax, pulmonary effusion, anaphylaxis, diabetic ketoacidosis, flailed chest, pulmonary contusion, diaphragmatic rupture, anemia, neuromuscular, this is not meant to be an all-inclusive list. EKG interpreted by me (3pts min.). @ -As above X-rays interpreted by me (1pt min.). @ -Patient's chest x-ray shows mild pulmonary edema CT interpreted by me (1pt min.). @ -None done U/S interpreted by me (1pt. min.). @ -None done What testing was considered but not performed or refused? (CT, X-rays, U/S, labs)? Why? @ -I did consider doing a CT of the chest however I held off because the patient had a reasonable explanation for why she is so short of breath and her creatinine was elevated at this time so I am just going to give her packed red blood cells give her a little Lasix and see how she feels after that. What meds were considered but not given or refused? Why? @ -None Did you discuss the management of the patient with other professionals (professionals i.e. , ELE, CAR REPAIRER, lab, RT, psych nurse, public health social worker, chisel mortiser operator, teacher, intelligence officer basic, hospice case manager)? Give summary @ -I spoke with Dr. Patel agreed to admit the patient admit the patient I wrote admitting orders Was smoking cessation discussed for >3mins.? @ -No Was critical care preformed (if so, how long)? @ -35 minutes Were there social determinants of health that impacted care today? How? (Homelessness, low income, unemployed, alcoholism, drug addiction, transportation, low edu. Level, literacy, decrease access to med. care, snf, rehab)? @ -No Was there de-escalation of care discussed even if they declined (Discuss DNR or withdrawal of care, Hospice)? DNR status @ -No What co-morbidities impacted this encounter? (DM, HTN, Smoking, COPD, CAD, Cancer, CVA, ARF, Chemo, Hep., AIDS, mental health diagnosis, sleep apnea, morbid obesity)? @ -None Was patient admitted / discharged? Hospital course, mention meds given and route, prescriptions, significant lab abnormalities, going to OR and other per tinent info. @ -Patient's hemoglobin was 4.8. I ordered 2 units of packed red blood cells however patient has antibodies from previous transfusions and it will take a while. I spoke with Dr. Patel he agreed to admit the patient admit the patient I wrote admitting orders. Patient also has some mild pulmonary edema so give the patient only 10 of Lasix to help with her breathing. Undiagnosed new problem with uncertain prognosis? @ -No Drug Therapy requiring intensive monitoring for toxicity (Heparin, Nitro, Insulin, Cardizem)? @ -No Were any procedures done? @ -No Diagnosis/symptom? @ -Anemia Acute, or Chronic, or Acute on Chronic? @ -Acute on chronic Uncomplicated (without systemic symptoms) or Complicated (systemic symptoms)? @ -Complicated Side effects of treatment? @ -No Exacerbation, Progression, or Severe Exacerbation? @ -No Poses a threat to life or bodily function? How? (Chest pain, [place], [place], pneumonia, PE, COPD, DKA, ARF, appy, cholecystitis, CVA, Diverticulitis, Homicidal, Virgie cidal, threat to staff... and all critical care pts) @ -Yes this could lead to hypoxia and endorgan dysfunction Diagnosis/symptom? @ -Pulmonary edema Acute, or Chronic, or Acute on Chronic? @ -Acute Uncomplicated (without systemic symptoms) or Complicated (systemic symptoms)? @ -Complicated Side effects of treatment? @ -None Exacerbation, Progression, or Severe Exacerbation] @ -No Poses a threat to life or bodily function? @ -Yes this could lead to pulmonary edema and endorgan dysfunction - Lab Data Result diagrams: 09/20/23 15:57 09/20/23 15:57 Lab Results 09/20/23 09/20/23 09/20/23 Range/Units 15:57 15:57 15:57 WBC 7.5 (3.8-10.6) k/uL RBC 1.72 L (3.80-5.40) m/uL Hgb 4.3 L* (11.4-16.0) gm/dL Hct 14.1 L* (34.0-46.0) % MCV 82.2 (80.0-100.0) fL MCH 24.9 L (25.0-35.0) pg MCHC 30.3 L (31.0-37.0) g/dL RDW 19.1 H (11.5-15.5) % Plt Count 198 (150-450) k/uL MPV 8.7 Neutrophils % 84 % Lymphocytes % 7 % Monocytes % 5 % Eosinophils % 2 % Basophils % 0 % Neutrophils # 6.3 (1.3-7.7) k/uL Lymphocytes # 0.5 L (1.0-4.8) k/uL Monocytes # 0.4 (0-1.0) k/uL Eosinophils # 0.2 (0-0.7) k/uL Basophils # 0.0 (0-0.2) k/uL Hypochromasia Marked Anisocytosis Slight Microcytosis Slight PT 11.7 (10.0-12.5) sec INR 1.1 (<1.2) APTT 24.2 (22.0-30.0) sec D-Dimer 5.09 H (<0.60) mg/L FEU Sodium 137 (137-145) mmol/L Potassium 5.0 (3.5-5.1) mmol/L Chloride 99 (98-107) mmol/L Carbon Dioxide 28 (22-30) mmol/L Anion Gap 10 mmol/L BUN 111 H* (7-17) mg/dL Creatinine 2.40 H (0.52-1.04) mg/dL Est GFR (CKD-EPI)AfAm 22 (>60 ml/min/1.73 sqM) Est GFR (CKD-EPI)NonAf 19 (>60 ml/min/1.73 sqM) Glucose 139 H (74-99) mg/dL Plasma Lactic Acid Garcia (0.7-2.0) mmol/L Calcium 9.0 (8.4-10.2) mg/dL Magnesium 2.6 H (1.6-2.3) mg/dL Total Bilirubin 0.6 (0.2-1.3) mg/dL AST 31 (14-36) U/L ALT 17 (4-34) U/L Alkaline Phosphatase 112 (38-126) U/L Troponin I (0.000-0.034) ng/mL NT-Pro-B Natriuret Pep 4370 pg/mL Total Protein 7.1 (6.3-8.2) g/dL Albumin 3.9 (3.5-5.0) g/dL Urine Color Urine Appearance (Clear) Urine pH (5.0-8.0) Ur Specific [place] (1.001-1.035) Urine Protein (Negative) Urine Glucose (UA) (Negative) Urine Ketones (Negative) Urine Blood (Negative) Urine Nitrite (Negative) Urine Bilirubin (Negative) Urine Urobilinogen (<2.0) mg/dL Ur Leukocyte Esterase (Negative) Urine RBC (0-5) /hpf Urine WBC (0-5) /hpf Urine WBC Clumps (None) /hpf Ur Squamous Epith Cells (0-4) /hpf Urine Bacteria (None) /hpf Hyaline Casts (0-2) /lpf Urine Mucus (None) /hpf 09/20/23 09/20/23 09/20/23 Range/Units 15:57 15:57 16:25 WBC (3.8-10.6) k/uL RBC (3.80-5.40) m/uL Hgb (11.4-16.0) gm/dL Hct (34.0-46.0) % MCV (80.0-100.0) fL MCH (25.0-35.0) pg MCHC (31.0-37.0) g/dL RDW (11.5-15.5) % Plt Count (150-450) k/uL MPV Neutrophils % % Lymphocytes % % Monocytes % % Eosinophils % % Basophils % % Neutrophils # (1.3-7.7) k/uL Lymphocytes # (1.0-4.8) k/uL Monocytes # (0-1.0) k/uL Eosinophils # (0-0.7) k/uL Basophils # (0-0.2) k/uL Hypochromasia Anisocytosis Microcytosis PT (10.0-12.5) sec INR (<1.2) APTT (22.0-30.0) sec D-Dimer (<0.60) mg/L FEU Sodium (137-145) mmol/L Potassium (3.5-5.1) mmol/L Chloride (98-107) mmol/L Carbon Dioxide (22-30) mmol/L Anion Gap mmol/L BUN (7-17) mg/dL Creatinine (0.52-1.04) mg/dL Est GFR (CKD-EPI)AfAm (>60 ml/min/1.73 sqM) Est GFR (CKD-EPI)NonAf (>60 ml/min/1.73 sqM) Glucose (74-99) mg/dL Plasma Lactic Acid Garcia 2.2 H* (0.7-2.0) mmol/L Calcium (8.4-10.2) mg/dL Magnesium (1.6-2.3) mg/dL Total Bilirubin (0.2-1.3) mg/dL AST (14-36) U/L ALT (4-34) U/L Alkaline Phosphatase (38-126) U/L Troponin I <0.012 (0.000-0.034) ng/mL NT-Pro-B Natriuret Pep pg/mL Total Protein (6.3-8.2) g/dL Albumin (3.5-5.0) g/dL Urine Color Colorless Urine Appearance Cloudy H (Clear) Urine pH 5.0 (5.0-8.0) Ur Specific [place] 1.012 (1.001-1.035) Urine Protein Negative (Negative) Urine Glucose (UA) Negative (Negative) Urine Ketones Negative (Negative) Urine Blood Trace H (Negative) Urine Nitrite Negative (Negative) Urine Bilirubin Negative (Negative) Urine Urobilinogen <2.0 (<2.0) mg/dL Ur Leukocyte Esterase Large H (Negative) Urine RBC 8 H (0-5) /hpf Urine WBC 173 H (0-5) /hpf Urine WBC Clumps Many H (None) /hpf Ur Squamous Epith Cells 4 (0-4) /hpf Urine Bacteria Many H (None) /hpf Hyaline Casts 34 H (0-2) /lpf Urine Mucus Rare H (None) /hpf Disposition Clinical Impression: Anemia, Pulmonary edema Disposition: ADMITTED IP TO THIS HOSP Referrals: Marcelino Cruz Jr, [Primary Care Provider] - 1-2 days Time of Disposition: 18:03
[2023-09-20 16:28] LABS: ALT 17 U/L (4-34); AST 31 U/L (14-36); African American GFR (CKD) 22 (>60 ml/min/1.73 sqM); Albumin 3.9 g/dL (3.5-5.0); Alkaline Phosphatase 112 U/L (38-126); Anion Gap 10 mmol/L; Carbon Dioxide 28 mmol/L (22-30); Chloride 99 mmol/L (98-107); Glucose 139 mg/dL (74-99); Magnesium 2.6 mg/dL (1.6-2.3); Non-African American GFR(CKD) 19 (>60 ml/min/1.73 sqM); Sodium 137 mmol/L (137-145); Total Bilirubin 0.6 mg/dL (0.2-1.3); Total Protein 7.1 g/dL (6.3-8.2)
[2023-09-20 16:32] LABS: Blood Urea Nitrogen 111 mg/dL (7-17); NT-Pro-B-Type Natriuretic Pept 4370 pg/mL
[2023-09-20 16:38] LABS: Anisocytosis Slight; Basophils % (A) 0 %; Eosinophils # (A) 0.2 k/uL (0-0.7); Eosinophils % (A) 2 %; Hypochromasia Marked; Lymphocytes # (A) 0.5 k/uL (1.0-4.8); Lymphocytes % (A) 7 %; MCH 24.9 pg (25.0-35.0); MCHC 30.3 g/dL (31.0-37.0); MCV 82.2 fL (80.0-100.0); Mean Platelet Volume 8.7; Microcytosis Slight; Monocytes # (A) 0.4 k/uL (0-1.0); Monocytes % (A) 5 %; Neutrophils # (A) 6.3 k/uL (1.3-7.7); Neutrophils % (A) 84 %; Platelet Count 198 k/uL (150-450); RBC 1.72 m/uL (3.80-5.40); RDW 19.1 % (11.5-15.5); WBC 7.5 k/uL (3.8-10.6)
--- NOTE | 2023-09-20 16:38 | XR ---
EXAMINATION: XR chest 2V: 09/20/2023 4:09 PM CLINICAL INDICATION: difficulty breathing TECHNIQUE: Departmental protocol COMPARISON: 04/27/2023 FINDINGS: EKG leads and sternal sutures. There is moderate silhouetting of the pulmonary vasculature bilaterally by a fine reticular pattern o f increased density symmetrically throughout the lung, consistent with a clinical diagnosis of advanc ed interstitial phase pulmonary edema with some areas of airspace filling component. Clinical exclusi on of pneumonia is requested. The pleural spaces are negative. The cardiac silhouette is enlarged, stable. The skeletal structures and soft tissues are negative for acute findings. IMPRESSION: Suspect prominent pulmonary edema as discussed.
[2023-09-20 16:40] LABS: HCT 14.1 % (34.0-46.0); HGB 4.3 gm/dL (11.4-16.0)
[2023-09-20 16:46] LABS: Partial Thromboplastin Time 24.2 sec (22.0-30.0)
[2023-09-20 17:11] LABS: INR 1.1 (<1.2); Prothrombin Time 11.7 sec (10.0-12.5)
[2023-09-20 17:24] LABS: Appearance,Urine Cloudy (Clear); Bacteria,Urine Many /hpf; Bilirubin,Urine Negative (Negative); Blood,Urine Trace (Negative); Color,Urine Colorless; Glucose,Urine (UA) Negative (Negative); Hyaline Casts,Urine 34 /lpf (0-2); Ketones,Urine Negative (Negative); Leukocyte Esterase,Urine Large (Negative); Mucus,Urine Rare /hpf; Nitrite,Urine Negative (Negative); Protein,Urine Negative (Negative); RBC,Urine 8 /hpf (0-5); Specific Gravity,Urine 1.012 (1.001-1.035); Squamous Epithelial Cell,Urine 4 /hpf (0-4); Urobilinogen,Urine <2.0 mg/dL (<2.0); WBC,Urine 173 /hpf (0-5)
[2023-09-20] MEDS: FUROSEMIDE 10 MG/ML 2 ML VIAL IV ONE (18:40)
[2023-09-21 02:02] LABS: Anisocytosis Slight; Basophils % (A) 0 %; Eosinophils # (A) 0.2 k/uL (0-0.7); Eosinophils % (A) 3 %; HCT 23.2 % (34.0-46.0); Hypochromasia Marked; Lymphocytes # (A) 0.5 k/uL (1.0-4.8); Lymphocytes % (A) 7 %; MCH 26.5 pg (25.0-35.0); MCHC 31.3 g/dL (31.0-37.0); MCV 84.7 fL (80.0-100.0); Mean Platelet Volume 8.7; Monocytes # (A) 0.3 k/uL (0-1.0); Monocytes % (A) 4 %; Neutrophils # (A) 5.4 k/uL (1.3-7.7); Neutrophils % (A) 84 %; Platelet Count 141 k/uL (150-450); RBC 2.74 m/uL (3.80-5.40); RDW 18.5 % (11.5-15.5); WBC 6.4 k/uL (3.8-10.6)
[2023-09-21 02:34] LABS: HGB 7.3 gm/dL (11.4-16.0)
[2023-09-21] MEDS ORDERED: DEXTROSE 50% SYRINGE 50 ML IVP PRN ×2 (12:40)
[2023-09-21 12:43] LABS: Glucose,Whole Blood 185 mg/dL (70-110)
[2023-09-21 13:52] LABS: African American GFR (CKD) 27 (>60 ml/min/1.73 sqM); Anion Gap 6 mmol/L; Calcium 8.9 mg/dL (8.4-10.2); Carbon Dioxide 31 mmol/L (22-30); Chloride 103 mmol/L (98-107); Glucose 155 mg/dL (74-99); Non-African American GFR(CKD) 24 (>60 ml/min/1.73 sqM); Potassium 4.5 mmol/L (3.5-5.1); Sodium 140 mmol/L (137-145)
[2023-09-21 14:01] LABS: Blood Urea Nitrogen 101 mg/dL (7-17)
[2023-09-21] MEDS: PANTOPRAZOLE 40 MG/10 ML VIAL IVP SCH (14:10)
[2023-09-21] MEDS: INSULIN ASPART (NovoLOG) 100 UNIT/ML VIAL SQ SCH (14:10)
[2023-09-21] MEDS: AMIODARONE 200 MG TAB PO SCH (14:10)
--- NOTE | 2023-09-21 14:15 | P.GSCN ---
History of Present Illness Consult date: 09/21/23 History of present illness: CHIEF COMPLAINT: Weakness HISTORY OF PRESENT ILLNESS: This is a 73-year-old female presented to the hospital with complaints of weakness and shortness of breath. Patient was found to have a hemoglobin of 4.3. She reports having black stools for about 4 days. She denies any abdominal pain. Denies any nausea or vomiting. She does take E liquis at home. Denies any NSAID use. She reports that in June she had to be transferred down to [facility] for a GI bleed. She she reports EGD done at that time was negative no evidence of bleeding. Last colonoscopy was in 2022 which is also unremarkable. Patient did go into pulmonary edema after 2 units of blood. Hemoglobin is up to 7.3. She was given a dose of IV Lasix. She is o n her 3 L of oxygen which she does take at home. Patient currently denies any chest pain or shortness of breath. She did have elevated D-dimer and medicine service has ordered a V/Q and Doppler ultrasounds of the legs. Patient does have history of chronic anemia. Patient does have a history of stomach ulcer PAST MEDICAL HISTORY: Atrial Fibrillation, Coronary Artery Disease (CAD), COPD, Diabetes Mellitus, Eye Disorder, Hyperlipidemia, Hypertension, Osteoarthritis (OA), Pneumonia, Renal Disease, Sleep Apnea/CPAP/BIPAP, Thyroid Disorder, [facility] on 05/08/22 with anemia/had EGD and colonoscopy which showed nonbleeding stomach ulcer/diverticular disease and colon polyp, pt received blood transfusions., Chronic kidney disease stage III, obstructive sleep apnea PAST SURGICAL HISTORY: Bariatric Surgery, Section, Cholecystectomy, Coronary Bypass/CABG, Heart Catheterization, Hysterectomy, Orthopedic Surgery, Tonsillectomy MEDICATIONS: See below ALLERGIES: See below SOCIAL HISTORY: No illicit drug use. REVIEW OF SYSTEMS: CONSTITUTIONAL: Denies fever or chills. HEENT: Denies blurred vision, vision changes, or eye pain. Denies hemoptysis CARDIOVASCULAR: Denies chest pain or pressure. RESPIRATORY: No shortness of breath. GASTROINTESTINAL: See HPI for pertinent findings HEMATOLOGIC: Denies bleeding disorders. GENITOURINARY: Denies any blood in urine or increased urinary frequency. SKIN: Denies pruitis. Denies rash. PHYSICAL EXAM: VITAL SIGNS: Reviewed GENERAL: Well-developed in no acute distress. HEENT: No sclera icterus. Extraocular movements grossly intact. Moist buccal mucosa. Head is atraumatic, normocephalic. No nasal drainage. ABDOMEN: Soft. Obese. Nondistended. nontender NEUROLOGIC: Alert and oriented. Cranial nerves II through XII grossly intact. LABORATORY DATA: WBC 6.4 HGB 4.3 to 7.3 plt 141 Sodium 140 potassium 4.5 creatinine 2.04 Lactic acid 2.2 down to 0.6 IMAGING: Chest x-ray suspected prominent pulmonary edema ASSESSMENT: 1. Symptomatic anemia 2. Acute blood loss anemia with melanotic stool 3. Prior history of peptic ulcer disease 4. On blood thinners at home PLAN: -Patient scheduled for EGD and colonoscopy tomorrow with Dr. Jay -Start GoLytely bowel prep today with dose of lactulose -N.p.o. after midnight -Continue IV Protonix -Continue IV fluids -Continue to monitor hemoglobin -Continue to monitor for any signs or symptoms of bleeding -Hold jimbo Physician Medical Doctor Md note has been reviewed by physician. Signing provider agrees with the documented findings, assessment, and plan of care. Past Medical History Past Medical History: Atrial Fibrillation, Coronary Artery Disease (CAD), COPD, Diabetes Mellitus, Eye Disorder, Hyperlipidemia, Hypertension, Osteoarthritis (OA), Pneumonia, Renal Disease, Sleep Apnea/CPAP/BIPAP, Thyroid Disorder Additional Past Medical History / Comment(s): Pt recently admitted to [facility] on 05/08/22 with anemia/had EGD and colonoscopy which showed nonbleeding stomach ulcer/diverticular disease and colon polyp, pt received blood transfusions. Other hx: 02/12/22 covid/pneumonia/sepsis, other past pneumonias, acute hypoxic respiratory failure/now on home oxygen ATC, new A fib with RVR, IDDM type II, neuropathy bilateral feet, L eye retinal bleed/lasik eye surgery, R eye jose ract, bilateral eye macular degeneration/gets injections/poor vision, CKD stage III, anemia, UTI/sepsis, bilateral leg lymphedema, FLORES/does not have cpap machine at this time, diverticulitis, gout, chronic back pain, rheumatic fever, hypothyroid. History of Any Multi-Drug Resistant Organisms: ESBL Year Discovered:: 05/22/22 ESBL Klebsiella MDRO Source:: Urine Past Surgical History: Bariatric Surgery, Section, Cholecystectomy, Coronary Bypass/CABG, Heart Catheterization, Hysterectomy, Orthopedic Surgery, Tonsillectomy Additional Past Surgical History / Comment(s): EGD, colonoscopy, 2 vessel CABG in 1996, bilateral carpal tunnel release, lap band, L eye laser surgery, Past Anesthesia/Blood Transfusion Reactions: No Reported Reaction Past Psychological History: Depression Smoking Status: Never smoker Past Alcohol Use History: None Reported Past Drug Use History: None Reported - Past Family History Father History Unknown: Yes Family Medical History: Cancer, Coronary Artery Disease (CAD), Diabetes Mellitus Additional Family Medical History / Comment(s): Prostate cancer Mother History Unknown: Yes Family Medical History: Cancer Additional Family Medical History / Comment(s): Bone cancer. Medications and Allergies Home Medications Medication Instructions Recorded Confirmed Type Atorvastatin [Lipitor] 40 mg PO HS 08/10/16 09/20/23 History Isosorbide Mononitrate [Isosorbide 30 mg PO DAILY 08/10/16 09/20/23 History Mononitrate ER] Oxybutynin Chloride 5 mg PO BID 08/10/16 09/20/23 History Mirtazapine [Remeron] 15 mg PO HS 04/12/22 09/20/23 History Acetaminophen Tab [Tylenol] 650 mg PO Q6H PRN 05/08/22 09/20/23 History INSULIN ASPART (NovoLOG) [NovoLOG 30 unit SQ BID 07/09/22 09/20/23 History (formulary)] Insulin Detemir (Levemir) [Levemir] 45 unit SQ DAILY 07/09/22 09/20/23 History Gabapentin [Neurontin] 300 mg PO BID #6 cap 07/14/22 09/20/23 Rx Amiodarone [Cordarone] 200 mg PO DAILY 12/17/22 09/20/23 History Aspirin EC [Ecotrin Low Dose] 81 mg PO DAILY 12/17/22 09/20/23 History HYDROcodone/APAP 10-325MG [[place] 1 tab PO Q6H PRN 12/17/22 09/20/23 History 10-325] Levothyroxine Sodium [Synthroid] 50 mcg PO DAILY 12/17/22 09/20/23 History Potassium Chloride [Potassium 20 meq PO DAILY 12/17/22 09/20/23 History Chloride ER (K-Dur GEQ)] Sertraline [Zoloft] 100 mg PO BID 12/17/22 09/20/23 History Furosemide [Lasix] 40 mg PO BID@0900,1600 #180 tab 12/20/22 09/20/23 Rx Metoprolol Succinate (ER) [Toprol 25 mg PO DAILY #90 tab 12/20/22 09/20/23 Rx XL] Apixaban [Eliquis] 2.5 mg PO BID 09/20/23 09/20/23 History Insulin Detemir (Levemir) [Levemir] 42 unit SQ HS 09/20/23 09/20/23 History metOLazone 2.5 mg PO MOFR 09/20/23 09/20/23 History Allergies Allergy/AdvReac Type Severity Reaction Status Date / Time ibuprofen [From Motrin] Allergy Rash/Hives Verified 09/20/23 19:39 Penicillins Allergy Anaphylaxis Verified 09/20/23 19:39 Surgical - Exam Vital Signs Temp Pulse Resp BP Pulse Ox 97.6 F 62 18 126/61 100 09/20/23 15:26 09/20/23 15:26 09/20/23 15:26 09/20/23 15:26 09/20/23 15:26 Results - Labs 09/21/23 01:47 09/20/23 15:57 Abnormal Lab Results - Last 24 Hours (Table) 09/20/23 09/20/23 09/20/23 Range/Units 15:57 15:57 15:57 RBC 1.72 L (3.80-5.40) m/uL Hgb 4.3 L* (11.4-16.0) gm/dL Hct 14.1 L* (34.0-46.0) % MCH 24.9 L (25.0-35.0) pg MCHC 30.3 L (31.0-37.0) g/dL RDW 19.1 H (11.5-15.5) % Plt Count (150-450) k/uL Lymphocytes # 0.5 L (1.0-4.8) k/uL D-Dimer 5.09 H (<0.60) mg/L FEU BUN 111 H* (7-17) mg/dL Creatinine 2.40 H (0.52-1.04) mg/dL Glucose 139 H (74-99) mg/dL Plasma Lactic Acid Garcia (0.7-2.0) mmol/L Magnesium 2.6 H (1.6-2.3) mg/dL Urine Appearance (Clear) Urine Blood (Negative) Ur Leukocyte Esterase (Negative) Urine RBC (0-5) /hpf Urine WBC (0-5) /hpf Urine WBC Clumps (None) /hpf Urine Bacteria (None) /hpf Hyaline Casts (0-2) /lpf Urine Mucus (None) /hpf Crossmatch 09/20/23 09/20/23 09/20/23 Range/Units 15:57 16:25 17:05 RBC (3.80-5.40) m/uL Hgb (11.4-16.0) gm/dL Hct (34.0-46.0) % MCH (25.0-35.0) pg MCHC (31.0-37.0) g/dL RDW (11.5-15.5) % Plt Count (150-450) k/uL Lymphocytes # (1.0-4.8) k/uL D-Dimer (<0.60) mg/L FEU BUN (7-17) mg/dL Creatinine (0.52-1.04) mg/dL Glucose (74-99) mg/dL Plasma Lactic Acid Garcia 2.2 H* (0.7-2.0) mmol/L Magnesium (1.6-2.3) mg/dL Urine Appearance Cloudy H (Clear) Urine Blood Trace H (Negative) Ur Leukocyte Esterase Large H (Negative) Urine RBC 8 H (0-5) /hpf Urine WBC 173 H (0-5) /hpf Urine WBC Clumps Many H (None) /hpf Urine Bacteria Many H (None) /hpf Hyaline Casts 34 H (0-2) /lpf Urine Mucus Rare H (None) /hpf Crossmatch See Detail 09/20/23 09/21/23 Range/Units 19:10 01:47 RBC 2.74 L (3.80-5.40) m/uL Hgb 7.3 L D (11.4-16.0) gm/dL Hct 23.2 L (34.0-46.0) % MCH (25.0-35.0) pg MCHC (31.0-37.0) g/dL RDW 18.5 H (11.5-15.5) % Plt Count 141 L (150-450) k/uL Lymphocytes # 0.5 L (1.0-4.8) k/uL D-Dimer (<0.60) mg/L FEU BUN (7-17) mg/dL Creatinine (0.52-1.04) mg/dL Glucose (74-99) mg/dL Plasma Lactic Acid Garcia 0.6 L (0.7-2.0) mmol/L Magnesium (1.6-2.3) mg/dL Urine Appearance (Clear) Urine Blood (Negative) Ur Leukocyte Esterase (Negative) Urine RBC (0-5) /hpf Urine WBC (0-5) /hpf Urine WBC Clumps (None) /hpf Urine Bacteria (None) /hpf Hyaline Casts (0-2) /lpf Urine Mucus (None) /hpf Crossmatch Diabetes panel 09/20/23 Range/Units 15:57 Sodium 137 (137-145) mmol/L Potassium 5.0 (3.5-5.1) mmol/L Chloride 99 (98-107) mmol/L Carbon Dioxide 28 (22-30) mmol/L BUN 111 H* (7-17) mg/dL Creatinine 2.40 H (0.52-1.04) mg/dL Glucose 139 H (74-99) mg/dL Calcium 9.0 (8.4-10.2) mg/dL AST 31 (14-36) U/L ALT 17 (4-34) U/L Alkaline Phosphatase 112 (38-126) U/L Total Protein 7.1 (6.3-8.2) g/dL Albumin 3.9 (3.5-5.0) g/dL Calcium panel 09/20/23 Range/Units 15:57 Calcium 9.0 (8.4-10.2) mg/dL Albumin 3.9 (3.5-5.0) g/dL Pituitary panel 09/20/23 Range/Units 15:57 Sodium 137 (137-145) mmol/L Potassium 5.0 (3.5-5.1) mmol/L Chloride 99 (98-107) mmol/L Carbon Dioxide 28 (22-30) mmol/L BUN 111 H* (7-17) mg/dL Creatinine 2.40 H (0.52-1.04) mg/dL Glucose 139 H (74-99) mg/dL Calcium 9.0 (8.4-10.2) mg/dL Adrenal panel 09/20/23 Range/Units 15:57 Sodium 137 (137-145) mmol/L Potassium 5.0 (3.5-5.1) mmol/L Chloride 99 (98-107) mmol/L Carbon Dioxide 28 (22-30) mmol/L BUN 111 H* (7-17) mg/dL Creatinine 2.40 H (0.52-1.04) mg/dL Glucose 139 H (74-99) mg/dL Calcium 9.0 (8.4-10.2) mg/dL Total Bilirubin 0.6 (0.2-1.3) mg/dL AST 31 (14-36) U/L ALT 17 (4-34) U/L Alkaline Phosphatase 112 (38-126) U/L Total Protein 7.1 (6.3-8.2) g/dL Albumin 3.9 (3.5-5.0) g/dL
[2023-09-21] MEDS: ACETAMINOPHEN TAB 325 MG TAB PO PRN (14:59)
--- NOTE | 2023-09-21 15:15 | US ---
EXAMINATION TYPE: US venous doppler duplex LE DATE OF EXAM: 09/21/2023 2:50 PM COMPARISON: NONE CLINICAL INDICATION: Female, 73 years old with history of elevated d dimer; Elevated d dimer. SIDE PERFORMED: Bilateral TECHNIQUE: The lower extremity deep venous system is examined utilizing real time linear array sonog marin with graded compression, doppler sonography and color-flow sonography. VESSELS IMAGED: Common Femoral Vein Deep Femoral Vein Greater Saphenous Vein * Femoral Vein Popliteal Vein Small Saphenous Vein * Proximal Calf Veins (* superficial vessels) Collision Worker notes: Exam is limited due to patient body habitus (pt is 321 lbs) and edema. Right Leg: Internal echoes seen within GSV at junction with the CFV. Compression deferred at this l evel due to internal echoes seen. Echoes also seen within GSV at the upper thigh. No color flow seen in GSV at these segments. All remaining veins appear negative for DVT. However, right distal femoral vein was not seen in trans verse. Left Leg: No evidence of DVT, although limited. Unable to visualize prox calf veins. Left popliteal vein only able to be seen in transverse. IMPRESSION: 1. Right lower extremity: SVT involving the greater saphenous vein extending right up to the junction with the common femoral vein. 2. Right lower extremity: Otherwise, no evidence for DVT within the right lower extremity imaged down to the upper calf. 3. Left lower extremity: Limited as the senior director of strategy was unable to visualize the upper calf veins. The popliteal vein was only seen in the transverse plane. No DVT identified down to the knee.
[2023-09-21] MEDS ORDERED: HEPARIN SODIUM,PORCINE 5,000 UNIT/ML 1 ML VIAL SQ SCH (16:00)
--- NOTE | 2023-09-21 16:00 | P.HPIM ---
History of Present Illness H&P Date: 09/21/23 Chief Complaint: Dyspnea, This is a 73-year-old pleasant female with past medical history significant for COVID x 3 -most recent in the last 3 months as per PCP ,chronic hypoxic respiratory failure, multifactorial-wears 3 L nasal cannula O2 at home, diastolic CHF, obstructive sleep apnea, morbid obesity, chronic kidney disease stage III persistent atrial fibrillation-anticoagulated on Eliquis, CAD, diabetes mellitus and multiple other medical issues presented to the ER with complaints of worsening dyspnea, dark stools x 4-5 days. Reports she walked to the car without her oxygen to proceed to her PCP office visit. Once in the car she applied her nasal cannula/oxygen. Unbeknownst to her, the nasal cannula tubing was kinked. Dyspnea worsened with lips blue, EMS called , oxygen applied with patient quickly returning her O2 sats into the 90s and transferred to our ER. On admission hemoglobin 4.3, received 2 units of packed RBCs, developed some pulmonary edema, received Lasix IV push with significant clinical improvement. Chest x-ray reported suspected prominent pulmonary edema.hemoglobin improving, up to 7.3, platelets 141. Maintaining O2 sats in the 90s on 3 L nasal cannula-baseline. Denies nausea vomiting or diarrhea. Denies abdominal pain.Previous EGDs, colonoscopy reporting nonbleeding antral ulceration, suspected diverticular bleeding, antral gastritis. Patient also reports after last inpatient visit she was worked up for watchman's procedure, and the decision was made between patient's family, patient and the physician not to proceed. There was some confusion regarding if she had consistently been taking her Eliquis; external medication history reflects prescription refilled for Eliquis on 09/17/2023. Currently denies any increased chest pain, palpitations or shortness of breath. Denies increased lower extremity edema. elevated D-di les, 5.09, troponin negative, proBNP 4370.BUN 101, creatinine 2.04. Blood sugars better controlled. Afebrile, normal WBC, lactic acid 0.6. UA reported many bacteria, many WBC clumps, 173 WBCs, large leukocytes and negative nitrates. Review of Systems ROS Statement: Those systems with pertinent positive or pertinent negative responses have been documented in the HPI. ROS Other: All systems not noted in ROS Statement are negative. Past Medical History Past Medical History: Atrial Fibrillation, Coronary Artery Disease (CAD), COPD, Diabetes Mellitus, Eye Disorder, Hyperlipidemia, Hypertension, Osteoarthritis (OA), Pneumonia, Renal Disease, Sleep Apnea/CPAP/BIPAP, Thyroid Disorder Additional Past Medical History / Comment(s): Pt recently admitted to [facility] on 05/08/22 with anemia/had EGD and colonoscopy which showed nonbleeding stomach ulcer/diverticular disease and colon polyp, pt received blood transfusions. Other hx: 02/12/22 covid/pneumonia/sepsis, other past pneumonias, acute hypoxic respiratory failure/now on home oxygen ATC, new A fib with RVR, IDDM type II, neuropathy bilateral feet, L eye retinal bleed/lasik eye surgery, R eye cataract, bilateral eye macular degeneration/gets injections/poor vision, CKD stage III, anemia, UTI/sepsis, bilateral leg lymphedema, FLORES/does not have cpap machine at this time, diverticulitis, gout, chronic back pain, rheumatic fever, hypothyroid. History of Any Multi-Drug Resistant Organisms: ESBL Date of last positivie culture/infection: 05/22/22 ESBL Klebsiella MDRO Source:: Urine Past Surgical History: Bariatric Surgery, Section, Cholecystectomy, Coronary Bypass/CABG, Heart Catheterization, Hysterectomy, Orthopedic Surgery, Tonsillectomy Additional Past Surgical History / Comment(s): EGD, colonoscopy, 2 vessel CABG in 1996, bilateral carpal tunnel release, lap band, L eye laser surgery, Past Anesthesia/Blood Transfusion Reactions: No Reported Reaction Past Psychological History: Depression Smoking Status: Never smoker Past Alcohol Use History: None Reported Past Drug Use History: None Reported - Past Family History Father History Unknown: Yes Family Medical History: Cancer, Coronary Artery Disease (CAD), Diabetes Mellitus Additional Family Medical History / Comment(s): Prostate cancer Mother History Unknown: Yes Family Medical History: Cancer Additional Family Medical History / Comment(s): Bone cancer. Medications and Allergies Home Medications Medication Instructions Recorded Confirmed Type Atorvastatin [Lipitor] 40 mg PO HS 08/10/16 09/20/23 History Isosorbide Mononitrate [Isosorbide 30 mg PO DAILY 08/10/16 09/20/23 History Mononitrate ER] Oxybutynin Chloride 5 mg PO BID 08/10/16 09/20/23 History Mirtazapine [Remeron] 15 mg PO HS 04/12/22 09/20/23 History Acetaminophen Tab [Tylenol] 650 mg PO Q6H PRN 05/08/22 09/20/23 History INSULIN ASPART (NovoLOG) [NovoLOG 30 unit SQ BID 07/09/22 09/20/23 History (formulary)] Insulin Detemir (Levemir) [Levemir] 45 unit SQ DAILY 07/09/22 09/20/23 History Gabapentin [Neurontin] 300 mg PO BID #6 cap 07/14/22 09/20/23 Rx Amiodarone [Cordarone] 200 mg PO DAILY 12/17/22 09/20/23 History Aspirin EC [Ecotrin Low Dose] 81 mg PO DAILY 12/17/22 09/20/23 History HYDROcodone/APAP 10-325MG [[place] 1 tab PO Q6H PRN 12/17/22 09/20/23 History 10-325] Levothyroxine Sodium [Synthroid] 50 mcg PO DAILY 12/17/22 09/20/23 History Potassium Chloride [Potassium 20 meq PO DAILY 12/17/22 09/20/23 History Chloride ER (K-Dur GEQ)] Sertraline [Zoloft] 100 mg PO BID 12/17/22 09/20/23 History Furosemide [Lasix] 40 mg PO BID@0900,1600 #180 tab 12/20/22 09/20/23 Rx Metoprolol Succinate (ER) [Toprol 25 mg PO DAILY #90 tab 12/20/22 09/20/23 Rx XL] Apixaban [Eliquis] 2.5 mg PO BID 09/20/23 09/20/23 History Insulin Detemir (Levemir) [Levemir] 42 unit SQ HS 09/20/23 09/20/23 History metOLazone 2.5 mg PO MOFR 09/20/23 09/20/23 History Allergies Allergy/AdvReac Type Severity Reaction Status Date / Time ibuprofen [From Motrin] Allergy Rash/Hives Verified 09/20/23 19:39 Penicillins Allergy Anaphylaxis Verified 09/20/23 19:39 Physical Exam Vitals: Vital Signs Temp Pulse Pulse Resp BP BP BP 09/21/23 12:17 97.5 F L 59 L 145/51 09/21/23 08:00 97.7 F 58 L 18 132/57 09/21/23 05:00 57 L 16 119/50 09/21/23 04:00 56 L 16 123/55 09/21/23 01:04 97.7 F 54 L 18 109/49 09/21/23 00:00 53 L 13 115/53 09/20/23 22:54 97.9 F 56 L 56 H 111/45 09/20/23 22:41 57 L 20 105/63 09/20/23 22:34 97.7 F 57 L 20 105/63 09/20/23 21:39 97.8 F 57 L 18 125/54 09/20/23 20:00 58 L 16 123/54 09/20/23 19:27 97.6 F 60 18 144/59 09/20/23 19:07 97.4 F L 58 L 20 139/40 09/20/23 18:50 97.4 F L 61 22 121/63 09/20/23 18:43 97.3 F L 60 22 133/77 09/20/23 17:13 61 22 123/38 Pulse Ox 09/21/23 12:17 99 09/21/23 08:00 96 09/21/23 05:00 97 09/21/23 04:00 97 09/21/23 01:04 100 09/21/23 00:00 99 09/20/23 22:54 99 09/20/23 22:41 97 09/20/23 22:34 98 09/20/23 21:39 98 09/20/23 20:00 98 09/20/23 19:27 97 09/20/23 19:07 97 09/20/23 18:50 98 09/20/23 18:43 96 09/20/23 17:13 95 Intake and Output 09/21/23 09/21/23 09/21/23 06:59 14:59 22:59 Intake Total 310 10 Output Total 350 550 Balance 310 -340 -550 Intake: IV 10 Invasive Line 1 10 Blood Product 310 Rc As-1 Unit 310 [id number] Output: Urine 350 550 Other: Voiding Method External Catheter # Voids 1 Weight 145.875 kg General: Awake, alert and oriented times 3. No acute distress HEENT: [PERRL. EOMI. No pharyngeal erythema or exudate.] Neck: [Supple, unable to evaluate JVD-short neck. Cardiac: [Currently regular rate and rhythm. No S3. No S4. No clicks, rubs. murmur.] Lungs: Patient has coarse breath sounds with diminished bases Abdomen: [Soft, obese, nontender, no mass appreciated. Positive bowel sounds. Extremes: [Positive edema, no cyanosis denies calf tenderness,normal pulses] Skin: Warm and dry,No rash. Results CBC & Chem 7: 09/21/23 01:47 09/21/23 13:05 Labs: Abnormal Lab Results - Last 24 Hours (Table) 09/20/23 09/20/23 09/20/23 Range/Units 15:57 15:57 15:57 RBC 1.72 L (3.80-5.40) m/uL Hgb 4.3 L* (11.4-16.0) gm/dL Hct 14.1 L* (34.0-46.0) % MCH 24.9 L (25.0-35.0) pg MCHC 30.3 L (31.0-37.0) g/dL RDW 19.1 H (11.5-15.5) % Plt Count (150-450) k/uL Lymphocytes # 0.5 L (1.0-4.8) k/uL D-Dimer 5.09 H (<0.60) mg/L FEU Carbon Dioxide (22-30) mmol/L BUN 111 H* (7-17) mg/dL Creatinine 2.40 H (0.52-1.04) mg/dL Glucose 139 H (74-99) mg/dL POC Glucose (mg/dL) (70-110) mg/dL Plasma Lactic Acid Garcia (0.7-2.0) mmol/L Magnesium 2.6 H (1.6-2.3) mg/dL Urine Appearance (Clear) Urine Blood (Negative) Ur Leukocyte Esterase (Negative) Urine RBC (0-5) /hpf Urine WBC (0-5) /hpf Urine WBC Clumps (None) /hpf Urine Bacteria (None) /hpf Hyaline Casts (0-2) /lpf Urine Mucus (None) /hpf Crossmatch 09/20/23 09/20/23 09/20/23 Range/Units 15:57 16:25 17:05 RBC (3.80-5.40) m/uL Hgb (11.4-16.0) gm/dL Hct (34.0-46.0) % MCH (25.0-35.0) pg MCHC (31.0-37.0) g/dL RDW (11.5-15.5) % Plt Count (150-450) k/uL Lymphocytes # (1.0-4.8) k/uL D-Dimer (<0.60) mg/L FEU Carbon Dioxide (22-30) mmol/L BUN (7-17) mg/dL Creatinine (0.52-1.04) mg/dL Glucose (74-99) mg/dL POC Glucose (mg/dL) (70-110) mg/dL Plasma Lactic Acid Garcia 2.2 H* (0.7-2.0) mmol/L Magnesium (1.6-2.3) mg/dL Urine Appearance Cloudy H (Clear) Urine Blood Trace H (Negative) Ur Leukocyte Esterase Large H (Negative) Urine RBC 8 H (0-5) /hpf Urine WBC 173 H (0-5) /hpf Urine WBC Clumps Many H (None) /hpf Urine Bacteria Many H (None) /hpf Hyaline Casts 34 H (0-2) /lpf Urine Mucus Rare H (None) /hpf Crossmatch See Detail 09/20/23 09/21/23 09/21/23 Range/Units 19:10 01:47 12:42 RBC 2.74 L (3.80-5.40) m/uL Hgb 7.3 L D (11.4-16.0) gm/dL Hct 23.2 L (34.0-46.0) % MCH (25.0-35.0) pg MCHC (31.0-37.0) g/dL RDW 18.5 H (11.5-15.5) % Plt Count 141 L (150-450) k/uL Lymphocytes # 0.5 L (1.0-4.8) k/uL D-Dimer (<0.60) mg/L FEU Carbon Dioxide (22-30) mmol/L BUN (7-17) mg/dL Creatinine (0.52-1.04) mg/dL Glucose (74-99) mg/dL POC Glucose (mg/dL) 185 H (70-110) mg/dL Plasma Lactic Acid Garcia 0.6 L (0.7-2.0) mmol/L Magnesium (1.6-2.3) mg/dL Urine Appearance (Clear) Urine Blood (Negative) Ur Leukocyte Esterase (Negative) Urine RBC (0-5) /hpf Urine WBC (0-5) /hpf Urine WBC Clumps (None) /hpf Urine Bacteria (None) /hpf Hyaline Casts (0-2) /lpf Urine Mucus (None) /hpf Crossmatch 09/21/23 Range/Units 13:05 RBC (3.80-5.40) m/uL Hgb (11.4-16.0) gm/dL Hct (34.0-46.0) % MCH (25.0-35.0) pg MCHC (31.0-37.0) g/dL RDW (11.5-15.5) % Plt Count (150-450) k/uL Lymphocytes # (1.0-4.8) k/uL D-Dimer (<0.60) mg/L FEU Carbon Dioxide 31 H (22-30) mmol/L BUN 101 H* (7-17) mg/dL Creatinine 2.04 H (0.52-1.04) mg/dL Glucose 155 H (74-99) mg/dL POC Glucose (mg/dL) (70-110) mg/dL Plasma Lactic Acid Garcia (0.7-2.0) mmol/L Magnesium (1.6-2.3) mg/dL Urine Appearance (Clear) Urine Blood (Negative) Ur Leukocyte Esterase (Negative) Urine RBC (0-5) /hpf Urine WBC (0-5) /hpf Urine WBC Clumps (None) /hpf Urine Bacteria (None) /hpf Hyaline Casts (0-2) /lpf Urine Mucus (None) /hpf Crossmatch Thrombosis Risk Factor Assmnt - Choose All That Apply Each Factor Represents 1 point: Abnormal pulmonary function (COPD), Obesity (BMI >25) Each Risk Factor Represents 2 Points: Age 61-74 years Thrombosis Risk Factor Assessment Total Risk Factor Score: 4 Thrombosis Risk Factor Assessment Level: Moderate Risk Assessment and Plan Assessment: Acute symptomatic blood loss anemia with melena stools, in a patient on Eliquis, history of prior GI bleed with chronic anemia . iron deficient. (Previous EGDs, colonoscopy reporting nonbleeding antral ulceration, suspected diverticular bleeding, antral gastritis.status post transfusion of packed 2 units of packed RBCs. Acute on chronic diastolic CHF secondary to fluid volume overload, eventually received Lasix post completion of 2 units packed RBCs Acute on chronic renal failure, stage III Elevated D-dimer, ruling out PE, suspect related to recent COVID, in a patient currently maintained on Eliquis at home. Chronic hypoxic, hypercapnic respiratory failure, wears 3 L nasal cannula at home History of COVID x 3, chronic fibrotic changes secondary to the COVID infection as per pulmonary, last episode recent within the last 3 months reported per PCP. Obstructive sleep apnea, hypercapnic, requiring BiPAP Moderate to severe pulmonary hypertension Mild aortic stenosis Severe tricuspid regurgitation Chronic kidney disease,III History of UTI with Klebsiella pneumoniae, ESBL History of Chronic Bilateral lower extremity cellulitis Chronic persistent atrial fibrillation, anticoagulated on Eliquis-currently on hold CAD, history of CABG Hypertension hyperlipidemia Diabetes mellitus, last hemoglobin A1c 6.9, Diabetic neuropathy Hypothyroidism Depression, history of History of bariatric surgery Morbid obesity, BMI 59 Plan: Continue on current medication regimen ,monitoring and symptomatic juni tment. Unable to do CTA secondary to renal function, VQ scan ordered along with bilateral lower extremity Doppler, related to elevated D-dimer. gentle IV fluid hydration. Eliquis currently on hold. PPI for GI prophylaxis ordered. Heparin subcu for DVT prophylaxis ordered-on hold as per general surgery. Close monitoring of CBC with repeat labs in a.m. evaluated by general surgery, scheduled for both EGD and colonoscopy tomorrow. The impression and plan of care has been dictated as directed. : I performed a history and examination of this patient, discussed the same with the dictator. I agree with the dictator's note ,documented as a scribe. Any additional findings or plans will be noted.
[2023-09-21 16:39] LABS: Glucose,Whole Blood 161 mg/dL (70-110)
[2023-09-21] MEDS: PEG 3350 (236 GM/BTL) + LYTES 4,000 ML BOTTLE PO ONE (16:49)
[2023-09-21] MEDS: LACTULOSE 20 GM/30 ML CUP PO ONE (16:49)
--- NOTE | 2023-09-21 18:45 | NM ---
EXAMINATION TYPE: NM pul vent and perfuse DATE OF EXAM: 09/21/2023 CLINICAL INDICATION: Female, 73 years old with history of elevated d-dimer, hypoxia; Correlation: Radiograph 09/20/2023 TECHNIQUE: Utilizing inhalation of 69.6 mCi Tc 99m DTPA aerosol and intravenous injection of 5.1 mCi of Tc 99m MAA, ventilation and perfusion images are acquired post injection in multiple projections. FINDINGS: There is very heterogeneous ventilation and perfusion throughout the bilateral lungs without discrete mismatched perfusion defect identified. Enlarged cardiac silhouette. IMPRESSION: Low probability for pulmonary embolus.
[2023-09-21 20:07] LABS: Glucose,Whole Blood 239 mg/dL (70-110)
[2023-09-21] MEDS: GABAPENTIN 300 MG CAP PO SCH (22:03)
[2023-09-21] MEDS: oxyBUTYnin chloride 5 MG TAB PO SCH (22:03)
[2023-09-21] MEDS: INSULIN DETEMIR (LEVEMIR) 100 UNIT/ML SYR SQ SCH (22:03)
[2023-09-22 00:04] LABS: Glucose,Whole Blood 181 mg/dL (70-110)
[2023-09-22 05:09] LABS: Glucose,Whole Blood 122 mg/dL (70-110)
[2023-09-22 10:09] LABS: Anisocytosis Slight; HCT 22.3 % (34.0-46.0); Hypochromasia Marked; MCH 26.6 pg (25.0-35.0); MCHC 31.4 g/dL (31.0-37.0); MCV 84.7 fL (80.0-100.0); Mean Platelet Volume 8.9; Platelet Count 155 k/uL (150-450); RBC 2.63 m/uL (3.80-5.40); RDW 18.5 % (11.5-15.5); WBC 5.4 k/uL (3.8-10.6)
[2023-09-22] MEDS: SODIUM CHLORIDE 0.9% 1,000 ML IV SCH (10:30)
[2023-09-22] MEDS: ISOSORBIDE MONONITRATE ER 30 MG TAB.ER.24H PO SCH (10:30)
[2023-09-22] MEDS: METOPROLOL SUCCINATE (ER) 25 MG TAB.ER.24H PO SCH (10:30)
[2023-09-22] MEDS: amLODIPine 5 MG TAB PO SCH (10:32)
[2023-09-22 10:51] LABS: African American GFR (CKD) 32 (>60 ml/min/1.73 sqM); Anion Gap 6 mmol/L; Blood Urea Nitrogen 81 mg/dL (7-17); Carbon Dioxide 32 mmol/L (22-30); Chloride 105 mmol/L (98-107); Glucose 104 mg/dL (74-99); Non-African American GFR(CKD) 28 (>60 ml/min/1.73 sqM); Potassium 4.1 mmol/L (3.5-5.1); Sodium 143 mmol/L (137-145)
--- NOTE | 2023-09-22 10:59 | P.CRDCN ---
History of Present Illness History of present illness: HISTORY OF PRESENT ILLNESS: This is a 73-year-old female with a past medical history significant for coronary artery disease with previous CABG, chronic kidney disease, severe pulmonary hypertension, diabetes, hyperlipidemia, and recurrent GI bleed. Patient follows in the office with Dr. Weller. We have been asked to see the patient in consultation for congestive heart failure. Patient examined at the bedside. Patient is admitted to the hospital secondary to GI bleed. Patient's hemoglobin 4.3 on admission. She received RBC transfusion. Hemoglobin today 7.0. She is scheduled for endoscopy with general surgery. The patient was referred to [facility] for a Watchman device due to recurrent GI bleeding. However she has not had this performed. The reason is unknown. DIAGNOSTICS: - EKG reveals sinus mechanism with right bundle branch block. - Chest xray suspect prominent pulmonary edema - Laboratory data: WBC 5.4. Hemoglobin 7.0. Platelet count 155. Sodium 143. Potassium 4.1. BUN 81. Creatinine 1.78. Lactic acid 0.6. Troponin negative x 1. proBNP 4370. - Current home cardiac medications include metoprolol succinate 25 mg daily, Imdur 30 mg daily, Lasix 40 mg twice a day, Lipitor 40 mg at night, amiodarone 200 mg daily, Eliquis 2.5 mg twice a day, aspirin 81 mg daily and metolazone 2.5 mg on Wednesday and Wednesday. - Most recent echocardiogram obtained in November 2022 revealed ejection fraction 55%, severe pulmonary hypertension, severe TR, mild , moderate MR REVIEW OF SYSTEMS: At the time of my exam: CONSTITUTIONAL: Denies fever or chills. HEENT: Denies blurred vision, vision changes, or eye pain. Denies hemoptysis CARDIOVASCULAR: Denies chest pain. Denies orthopnea. Denies PND. Denies palpitations RESPIRATORY: Denies shortness of breath. GASTROINTESTINAL: Denies abdominal pain. Denies nausea or vomiting. HEMATOLOGIC: Denies bleeding disorders. GENITOURINARY: Denies any blood in urine. SKIN: Denies pruitis. Denies rash. PHYSICAL EXAM: VITAL SIGNS: Reviewed. GENERAL: Well-developed in no acute distress. HEENT: Head is normocephalic. Pupils are equal, round. Sclerae anicteric. Mucous membranes of the mouth are moist. Neck supple. No JVD or thyromegaly LUNGS: Respirations even and unlabored. Lungs essentially clear to auscultation bilaterally. HEART: Regular rate and rhythm. S1 and S2 heard. Systolic murmur noted ABDOMEN: Soft. Nondistended. Nontender. EXTREMITIES: Normal range of motion. No clubbing or cyanosis. Peripheral pulses intact. Trace bilateral lower extremity edema NEUROLOGIC: Awake and alert. Oriented x 3. ASSESSMENT: Acute blood loss anemia GI bleed History of recurrent GI bleeding Paroxysmal atrial fibrillation Coronary artery disease with two-vessel CABG in 1996 Severe pulmonary hypertension Valvular heart disease including moderate MR, severe TR, and mild Congestive heart failure with preserved EF, currently not in acute failure Chronic kidney disease Hypertension Hyperlipidemia Diabetes PLAN: Eliquis remains on hold Patient was evaluated outpatient for Watchman device but did not have this placed. Reason is unknown at this time. Resume home cardiac medications Continue to hold diuretics as patient is n.p.o. Patient scheduled for endoscopy today Further recommendations pending patient course Nurse practitioner note has been reviewed by physician. Signing provider agrees with the documented findings, assessment, and plan of care documented by GEODETIC SURVEY DIRECTOR as a scribe. Past Medical History Past Medical History: Atrial Fibrillation, Coronary Artery Disease (CAD), COPD, Diabetes Mellitus, Eye Disorder, Hyperlipidemia, Hypertension, Osteoarthritis (OA), Pneumonia, Renal Disease, Sleep Apnea/CPAP/BIPAP, Thyroid Disorder Additional Past Medical History / Comment(s): Pt recently admitted to [facility] on 05/08/22 with anemia/had EGD and colonoscopy which showed nonbleeding stomach ulcer/diverticular disease and colon polyp, pt received blood transfusions. Other hx: 02/12/22 covid/pneumonia/sepsis, other past pneumonias, acute hypoxic respiratory failure/now on home oxygen ATC, new A fib with RVR, IDDM type II, neuropathy bilateral feet, L eye retinal bleed/lasik eye surgery, R eye cataract, bilateral eye macular degeneration/gets injections/poor vision, CKD stage III, anemia, UTI/sepsis, bilateral leg lymphedema, FLORES/does not have cpap machine at this time, diverticulitis, gout, chronic back pain, rheumatic fever, hypothyroid. History of Any Multi-Drug Resistant Organisms: ESBL Date of last positivie culture/infection: 05/22/22 ESBL Klebsiella MDRO Source:: Urine Past Surgical History: Bariatric Surgery, Section, Cholecystectomy, Coronary Bypass/CABG, Heart Catheterization, Hysterectomy, Orthopedic Surgery, Tonsillectomy Additional Past Surgical History / Comment(s): EGD, colonoscopy, 2 vessel CABG in 1996, bilateral carpal tunnel release, lap band, L eye laser surgery, Past Anesthesia/Blood Transfusion Reactions: No Reported Reaction Past Psychological History: Depression Smoking Status: Never smoker Past Alcohol Use History: None Reported Past Drug Use History: None Reported - Past Family History Father History Unknown: Yes Family Medical History: Cancer, Coronary Artery Disease (CAD), Diabetes Mellitus Additional Family Medical History / Comment(s): Prostate cancer Mother History Unknown: Yes Family Medical History: Cancer Additional Family Medical History / Comment(s): Bone cancer. Medications and Allergies Home Medications Medication Instructions Recorded Confirmed Type Atorvastatin [Lipitor] 40 mg PO HS 08/10/16 09/20/23 History Isosorbide Mononitrate [Isosorbide 30 mg PO DAILY 08/10/16 09/20/23 History Mononitrate ER] Oxybutynin Chloride 5 mg PO BID 08/10/16 09/20/23 History Mirtazapine [Remeron] 15 mg PO HS 04/12/22 09/20/23 History Acetaminophen Tab [Tylenol] 650 mg PO Q6H PRN 05/08/22 09/20/23 History INSULIN ASPART (NovoLOG) [NovoLOG 30 unit SQ BID 07/09/22 09/20/23 History (formulary)] Insulin Detemir (Levemir) [Levemir] 45 unit SQ DAILY 07/09/22 09/20/23 History Gabapentin [Neurontin] 300 mg PO BID #6 cap 07/14/22 09/20/23 Rx Amiodarone [Cordarone] 200 mg PO DAILY 12/17/22 09/20/23 History Aspirin EC [Ecotrin Low Dose] 81 mg PO DAILY 12/17/22 09/20/23 History HYDROcodone/APAP 10-325MG [Bertram 1 tab PO Q6H PRN 12/17/22 09/20/23 History 10-325] Levothyroxine Sodium [Synthroid] 50 mcg PO DAILY 12/17/22 09/20/23 History Potassium Chloride [Potassium 20 meq PO DAILY 12/17/22 09/20/23 History Chloride ER (K-Dur GEQ)] Sertraline [Zoloft] 100 mg PO BID 12/17/22 09/20/23 History Furosemide [Lasix] 40 mg PO BID@0900,1600 #180 tab 12/20/22 09/20/23 Rx Metoprolol Succinate (ER) [Toprol 25 mg PO DAILY #90 tab 12/20/22 09/20/23 Rx XL] Apixaban [Eliquis] 2.5 mg PO BID 09/20/23 09/20/23 History Insulin Detemir (Levemir) [Levemir] 42 unit SQ HS 09/20/23 09/20/23 History metOLazone 2.5 mg PO MOFR 09/20/23 09/20/23 History Allergies Allergy/AdvReac Type Severity Reaction Status Date / Time ibuprofen [From Motrin] Allergy Rash/Hives Verified 09/20/23 19:39 Penicillins Allergy Anaphylaxis Verified 09/20/23 19:39 Physical Exam Vitals: Vital Signs Temp Pulse Pulse Pulse Resp BP BP 09/22/23 08:00 97.6 F 69 18 154/65 09/22/23 05:16 97.4 F L 64 20 163/64 09/21/23 23:29 97.6 F 61 19 164/63 09/21/23 20:52 97.4 F L 58 L 58 L 21 161/52 09/21/23 16:38 97.7 F 58 L 16 148/49 09/21/23 12:17 97.5 F L 59 L 145/51 Pulse Ox 09/22/23 08:00 96 09/22/23 05:16 98 09/21/23 23:29 99 09/21/23 20:52 99 09/21/23 16:38 97 09/21/23 12:17 99 Intake and Output 09/21/23 09/22/23 09/22/23 22:59 06:59 14:59 Intake Total 180 Output Total 550 300 Balance -370 -300 Intake: Oral 180 Output: Urine 550 300 Other: Voiding Method External Catheter External Catheter # Voids 1 # Bowel Movements 1 Results 09/22/23 09:22 09/22/23 09:22 CBC 09/22/23 Range/Units 09:22 WBC 5.4 (3.8-10.6) k/uL RBC 2.63 L (3.80-5.40) m/uL Hgb 7.0 L (11.4-16.0) gm/dL Hct 22.3 L (34.0-46.0) % Plt Count 155 (150-450) k/uL Comprehensive Metabolic Panel 09/21/23 Range/Units 13:05 Sodium 140 (137-145) mmol/L Potassium 4.5 (3.5-5.1) mmol/L Chloride 103 (98-107) mmol/L Carbon Dioxide 31 H (22-30) mmol/L BUN 101 H* (7-17) mg/dL Creatinine 2.04 H (0.52-1.04) mg/dL Glucose 155 H (74-99) mg/dL Calcium 8.9 (8.4-10.2) mg/dL Current Medications Generic Name Dose Route Start Last Admin Trade Name Freq PRN Reason Stop Dose Admin Acetaminophen 650 mg 09/21/23 12:43 09/21/23 14:59 Acetaminophen Tab 325 Mg Tab PO 650 mg Q6H PRN Administration Mild Pain Amiodarone HCl 200 mg 09/21/23 11:00 09/22/23 10:30 Amiodarone 200 Mg Tab PO 200 mg DAILY LD Administration Amlodipine Besylate 5 mg 09/22/23 09:15 09/22/23 10:32 Amlodipine 5 Mg Tab PO 5 mg DAILY LD Administration Atorvastatin Calcium 40 mg 09/22/23 21:00 Atorvastatin 40 Mg Tab PO HS [facility] Dextrose/Water 25 ml 09/21/23 12:40 Dextrose 50% Syringe 50 Ml IVP PER PROTOCOL PRN Hypoglycemia Protocol Dextrose/Water 50 ml 09/21/23 12:40 Dextrose 50% Syringe 50 Ml IVP PER PROTOCOL PRN Hypoglycemia Protocol Gabapentin 300 mg 09/21/23 21:00 09/22/23 10:30 Gabapentin 300 Mg Cap PO 300 mg BID LD Administration Sodium Chloride 1,000 mls @ 75 mls/hr 09/22/23 08:45 09/22/23 10:30 Saline 0.9% IV 75 mls/hr .[id number] LD Administration Insulin Aspart 0 unit 09/21/23 12:45 09/22/23 05:17 Insulin Aspart (Novolog) 100 Unit/Ml Vial SQ Not Given Q6HR [facility] Protocol Insulin Detemir 42 unit 09/21/23 21:00 09/21/23 22:03 Insulin Detemir (Levemir) 100 Unit/Ml Syr SQ 42 unit HS LD Administration Isosorbide Mononitrate 30 mg 09/22/23 09:15 09/22/23 10:30 Isosorbide Mononitrate Er 30 Mg Tab.Er.24h PO 30 mg DAILY LD Administration Metoprolol Succinate 25 mg 09/22/23 09:00 09/22/23 10:30 Metoprolol Succinate (Er) 25 Mg Tab.Er.24h PO 25 mg DAILY LD Administration Oxybutynin Chloride 5 mg 09/21/23 21:00 09/22/23 10:30 Oxybutynin Chloride 5 Mg Tab PO 5 mg BID LD Administration Pantoprazole Sodium 40 mg 09/21/23 11:00 09/22/23 10:30 Pantoprazole 40 Mg/10 Ml Vial IVP 40 mg BID LD Administration Intake and Output 09/21/23 09/22/23 09/22/23 22:59 06:59 14:59 Intake Total 180 Output Total 550 300 Balance -370 -300 Intake: Oral 180 Output: Urine 550 300 Other: Voiding Method External Catheter External Catheter # Voids 1 # Bowel Movements 1 09/22/23 09:22 09/21/23 13:05
[2023-09-22 12:04] LABS: Glucose,Whole Blood 126 mg/dL (70-110)
--- NOTE | 2023-09-22 12:34 | P.PN ---
Subjective Progress Note Date: 09/22/23 CHIEF COMPLAINT: GI bleed HISTORY OF PRESENT ILLNESS: Patient lying in bed comfortably. She reports her breathing is at baseline. She did not complete the full GoLytely bowel prep. Stools are still partially brown but liquidy. Denies any nausea or vomiting. Denies abdominal pain afebrile. WBC 5.4 Hgb 7.0 platelets 155 sodium 143 creatinine 1.70 PHYSICAL EXAM: VITAL SIGNS: Reviewed. GENERAL: Well-developed in no acute distress. ABDOMEN: Soft. Nondistended. Nontender. NEUROLOGIC: Alert and oriented. Cranial nerves II through XII grossly intact. ASSESSMENT: 1. Acute GI bleed 2. Acute blood loss anemia with melanotic stool 3. Prior history of peptic ulcer disease 4. On blood thinners at home PLAN: -Patient scheduled for EGD and colonoscopy today with Dr. Jay -Continue IV Protonix -Continue to monitor hemoglobin -Continue to hold Eliquis Physician [employer] Team Member note has been reviewed by physician. Signing provider agrees with the documented findings, assessment, and plan of care. Objective - Vital Signs Vital signs: Vital Signs Temp 97.6 F 09/22/23 08:00 Pulse 69 09/22/23 08:00 Resp 18 09/22/23 08:00 BP 154/65 09/22/23 08:00 Pulse Ox 96 09/22/23 08:00 FiO2 Intake & Output 09/21/23 09/22/23 09/22/23 18:59 06:59 18:59 Intake Total 190 Output Total 900 300 Balance -710 -300 Weight 145.875 kg Intake: IV 10 Invasive Line 1 10 Oral 180 Output: Urine 900 300 Other: Voiding Method External Catheter External Catheter Bedside Commode # Voids 1 1 2 # Bowel Movements 1 - Labs CBC & Chem 7: 09/22/23 09:22 09/22/23 09:22 Labs: Abnormal Lab Results - Last 24 Hours (Table) 09/21/23 09/21/23 09/21/23 Range/Units 12:42 13:05 16:37 RBC (3.80-5.40) m/uL Hgb (11.4-16.0) gm/dL Hct (34.0-46.0) % RDW (11.5-15.5) % Carbon Dioxide 31 H (22-30) mmol/L BUN 101 H* (7-17) mg/dL Creatinine 2.04 H (0.52-1.04) mg/dL Glucose 155 H (74-99) mg/dL POC Glucose (mg/dL) 185 H 161 H (70-110) mg/dL 09/21/23 09/22/23 09/22/23 Range/Units 20:03 00:03 05:08 RBC (3.80-5.40) m/uL Hgb (11.4-16.0) gm/dL Hct (34.0-46.0) % RDW (11.5-15.5) % Carbon Dioxide (22-30) mmol/L BUN (7-17) mg/dL Creatinine (0.52-1.04) mg/dL Glucose (74-99) mg/dL POC Glucose (mg/dL) 239 H 181 H 122 H (70-110) mg/dL 09/22/23 09/22/23 09/22/23 Range/Units 09:22 09:22 12:02 RBC 2.63 L (3.80-5.40) m/uL Hgb 7.0 L (11.4-16.0) gm/dL Hct 22.3 L (34.0-46.0) % RDW 18.5 H (11.5-15.5) % Carbon Dioxide 32 H (22-30) mmol/L BUN 81 H (7-17) mg/dL Creatinine 1.78 H (0.52-1.04) mg/dL Glucose 104 H (74-99) mg/dL POC Glucose (mg/dL) 126 H (70-110) mg/dL
[2023-09-22] MEDS: IV FLUID CONTINUATION 1,000 ML IV ONE (15:25)
[2023-09-22] MEDS ORDERED: LIDOCAINE 1% INJ 10MG/ML (20 ML MDV) ONE (15:25)
[2023-09-22] MEDS ORDERED: PROPOFOL 10 MG/ML 20 ML VIAL IV ONE (15:25)
--- NOTE | 2023-09-22 15:28 | P.PN ---
Subjective Progress Note Date: 09/22/23 H&P Date: 09/21/23 Chief Complaint: Dyspnea, This is a 73-year-old pleasant female with past medical history significant for COVID x 3 -most recent in the last 3 months as per PCP ,chronic hypoxic respiratory failure, multifactorial-wears 3 L nasal cannula O2 at home, diastolic CHF, obstructive sleep apnea, morbid obesity, chronic kidney disease stage III persistent atrial fibrillation-anticoagulated on Eliquis, CAD, diabetes mellitus and multiple other medical issues presented to the ER with complaints of worsening dyspnea, dark stools x 4-5 days. Reports she walked to the car without her oxygen to proceed to her PCP office visit. Once in the car she applied her nasal cannula/oxygen. Unbeknownst to her, the nasal cannula tubing was kinked. Dyspnea worsened with lips blue, EMS called , oxygen applied with patient quickly returning her O2 sats into the 90s and transferred to our ER. On admission hemoglobin 4.3, received 2 units of packed RBCs, developed some pulmonary edema, received Lasix IV push with significant clinical improvement. Chest x-ray reported suspected prominent pulmonary edema.hemoglobin improving, up to 7.3, platelets 141. Maintaining O2 sats in the 90s on 3 L nasal cannula-baseline. Denies nausea vomiting or diarrhea. Denies abdominal pain.Previous EGDs, colonoscopy reporting nonbleeding antral ulceration, susp ected diverticular bleeding, antral gastritis. Patient also reports after last inpatient visit she was worked up for watchman's procedure, and the decision was made between patient's family, patient and the physician not to proceed. There was some confusion regarding if she had consistently been taking her Eliquis; external medication history reflects prescription refilled for Eliquis on 09/17/2023. Currently denies any increased chest pain, palpitations or shortness of breath. Denies increased lower extremity edema. elevated D-dimer, 5.09, troponin negative, proBNP 4370.BUN 101, creatinine 2.04. Blood sugars better controlled. Afebrile, normal WBC, lactic acid 0.6. UA reported many bacteria, many WBC clumps, 173 WBCs, large leukocytes and negative nitrates. 09/22/2023 NPO, did not complete her prep. Denies nausea vomiting or diarrhea. Denies abdominal pain. Denies chest pain, palpitations or increased shortness of breath. Maintaining O2 sats in the high 90s on 3 L nasal cannula. Hemoglobin 7, platelets 155, renal function improving- BUN 81, creatinine 1.78. Urine culture uncollected. Afebrile, normal WBC. VQ scan reported low probability for pulmonary embolus, Doppler study of bilateral lower extremities reported right lower extremity SVT involving the greater saphenous vein extending right up to the junction with the common femoral vein otherwise no evidence for DVT within the right lower extremity imaged down to the upper calf, left upper extremity limited unable to visualize upper calf veins, popliteal vein only seen in transverse plane with no DVT identified down to the knee. Objective - Vital Signs Vital signs: Vital Signs Temp 97.6 F 09/22/23 08:00 Pulse 69 09/22/23 08:00 Resp 18 09/22/23 08:00 BP 154/65 09/22/23 08:00 Pulse Ox 96 09/22/23 08:00 FiO2 Intake & Output 09/21/23 09/22/23 09/22/23 18:59 06:59 18:59 Intake Total 190 Output Total 900 300 Balance -710 -300 Weight 145.875 kg Intake: IV 10 Invasive Line 1 10 Oral 180 Output: Urine 900 300 Other: Voiding Method External Catheter External Catheter # Voids 1 1 # Bowel Movements 1 - Exam General: Awake, alert and oriented times 3. Sitting up in bed, no acute distress HEENT: [PERRL. Conjunctiva pale. Neck: [Supple, unable to evaluate JVD-short neck. Cardiac: [Currently regular rate and rhythm. Systolic murmur.] Lungs: Unlabored, essentially clear with bilateral bases diminished. Abdomen: [Soft, obese, nontender, no mass appreciated. Positive bowel sounds. Extremes: [Mild edema, no cyanosis denies calf tenderness,normal pulses] Skin: Warm and dry,No rash. - Labs CBC & Chem 7: 09/22/23 09:22 09/22/23 09:22 Labs: Abnormal Lab Results - Last 24 Hours (Table) 09/21/23 09/21/23 09/21/23 Range/Units 12:42 13:05 16:37 Carbon Dioxide 31 H (22-30) mmol/L BUN 101 H* (7-17) mg/dL Creatinine 2.04 H (0.52-1.04) mg/dL Glucose 155 H (74-99) mg/dL POC Glucose (mg/dL) 185 H 161 H (70-110) mg/dL 09/21/23 09/22/23 09/22/23 Range/Units 20:03 00:03 05:08 Carbon Dioxide (22-30) mmol/L BUN (7-17) mg/dL Creatinine (0.52-1.04) mg/dL Glucose (74-99) mg/dL POC Glucose (mg/dL) 239 H 181 H 122 H (70-110) mg/dL Assessment and Plan Assessment: Acute symptomatic blood loss anemia with melena stools, in a patient on Eliquis, history of prior GI bleed with chronic anemia . iron deficient. (Previous EGDs, colonoscopy reporting nonbleeding antral ulceration, suspected diverticular bleeding, antral gastritis.status post transfusion of packed 2 units of packed RBCs. Fluid volume overload, eventually received Lasix post completion of 2 units packed RBCs, improved Chronic diastolic CHF Acute on chronic renal failure, stage III Elevated D-dimer, ruling out PE, suspect related to recent COVID, in a patient currently maintained on Eliquis at home. Doppler reported right lower extremity SVT involving the greater saphenous vein extending right up to the junction with the common femoral vein. Chronic hypoxic, hypercapnic respiratory failure, wears 3 L nasal cannula at home History of COVID x 3, chronic fibrotic changes secondary to the COVID infection as per pulmonary, last episode recent within the last 3 months reported per PCP. Obstructive sleep apnea, hypercapnic, requiring BiPAP Moderate to severe pulmonary hypertension Mild aortic stenosis Severe tricuspid regurgitation Chronic kidney disease,III History of UTI with Klebsiella pneumoniae, ESBL History of Chronic Bilateral lower extremity cellulitis Chronic persistent atrial fibrillation, anticoagulated on Eliquis-currently on hold CAD, history of CABG Hypertension hyperlipidemia Diabetes mellitus, last hemoglobin A1c 6.9, Diabetic neuropathy Hypothyroidism Depression, history of History of bariatric surgery Morbid obesity, BMI 59 Plan: Continue on current medication regimen ,monitoring and symptomatic treatment. Anticoagulation and diuretics remain on hold. NPO. EGD and colonoscopy pending. Maintain on PPI and gentle IV fluid hydration.Further anticoagulation recommendations pending EGD and colonoscopy results. Prognosis guarded given multiple complex medical issues. The impression and plan of care has been dictated as directed. : I performed a history and examination of this patient, discussed the same with the dictator. I agree with the dictator's note ,documented as a scribe. Any additional findings or plans will be noted.
--- NOTE | 2023-09-22 15:54 | P.OP ---
Date of Procedure: 09/22/23 Preoperative Diagnosis: GI bleed anemia Postoperative Diagnosis: Antral gastritis Large internal/external hemorrhoids Diverticulosis Right colon polyp Procedure(s) Performed: EGD Colonoscopy Anesthesia: MAC Surgeon: Pablito Jay Pathology: other (Antrum, right colon polyp) Condition: stable Disposition: PACU Description of Procedure: The patient was placed on the endoscopy table in the lateral position. She received IV sedation. The gas was placed oropharynx passed in the esophagus and the stomach. Scope was placed through the pylorus. The first and second portion of the duodenum appeared normal. Scope was then brought back to the antrum this appeared mildly Flaim. A biopsy was performed. The scope was then retroflexed and the Mainer of the stomach appeared normal. The GE junction was at 47. The distal esophagus appeared normal. The proximal esophagus appeared open scope withdrawn the patient. Next digital rectal exam was performed. This revealed very large internal/external hemorrhoids. The flexible colonoscope was then placed patient anus and passed throughout the entire colon. In the cecum there was a large amount of liquid stool which limited the view of the cecum. The scope tripack in the right colon there is a small sessile polyp. This removed with a cold f orcep. The transverse colon appeared normal. In the descending and sigmoid colon there is moderate diverticular changes. The scope was then brought back to the rectum and this appeared normal. Scope withdrawn the patient.
[2023-09-22 18:14] LABS: Glucose,Whole Blood 134 mg/dL (70-110)
[2023-09-22] MEDS: ATORVASTATIN 40 MG TAB PO SCH (20:55)
[2023-09-22 21:10] LABS: Glucose,Whole Blood 208 mg/dL (70-110)
[2023-09-22] MEDS: INSULIN ASPART (NovoLOG) 100 UNIT/ML VIAL SQ SCH (21:24)
[2023-09-23 06:15] LABS: Glucose,Whole Blood 152 mg/dL (70-110)
[2023-09-23] MEDS: LEVOTHYROXINE 50 MCG TAB PO SCH (06:41)
[2023-09-23 10:04] LABS: Anisocytosis Slight; Basophils % (A) 0 %; Eosinophils # (A) 0.1 k/uL (0-0.7); Eosinophils % (A) 3 %; HCT 21.6 % (34.0-46.0); Hypochromasia Marked; Lymphocytes # (A) 0.4 k/uL (1.0-4.8); Lymphocytes % (A) 8 %; MCH 26.6 pg (25.0-35.0); MCV 85.8 fL (80.0-100.0); Mean Platelet Volume 8.6; Monocytes # (A) 0.4 k/uL (0-1.0); Monocytes % (A) 7 %; Neutrophils # (A) 4.2 k/uL (1.3-7.7); Neutrophils % (A) 81 %; Platelet Count 140 k/uL (150-450); RBC 2.52 m/uL (3.80-5.40); RDW 18.5 % (11.5-15.5); WBC 5.3 k/uL (3.8-10.6)
[2023-09-23 10:15] LABS: HGB 6.7 gm/dL (11.4-16.0)
[2023-09-23 11:45] LABS: Glucose,Whole Blood 148 mg/dL (70-110)
--- NOTE | 2023-09-23 13:10 | P.PN ---
Subjective Progress Note Date: 09/23/23 CHIEF COMPLAINT: GI bleed HISTORY OF PRESENT ILLNESS: Patient lying in bed comfortably. She denies any a bdominal pain. Denies any nausea or vomiting. She has had no further BMs. Hemoglobin is down again at 6.7. She is status post EGD and colonoscopy with report showing antral gastritis, large internal/external hemorrhoids, diverticulosis and a right colon polyp. PHYSICAL EXAM: VITAL SIGNS: Reviewed. GENERAL: Well-developed in no acute distress. ABDOMEN: Soft. Nondistended. Nontender. NEUROLOGIC: Alert and oriented. Cranial nerves II through XII grossly intact. ASSESSMENT: 1. Acute GI bleed 2. Acute blood loss anemia with melanotic stool 3. Prior history of peptic ulcer disease 4. On blood thinners at home PLAN: -Agree with blood transfusion -Continue IV Protonix -Continue to monitor hemoglobin -Continue to monitor for any signs or symptoms of bleeding -Recommend to discontinue Eliquis permanently Physician General Utility Worker note has been reviewed by physician. Signing provider agrees with the documented findings, assessment, and plan of care. I have personally seen and examined the patient, reviewed the GENERAL MAINTENANCE MECHANIC /PAs history, exam and MDM and agree with the assessment and plan as written. Based on total visit time, I have performed more than 50% of the visit. As above: Patient without active bleeding. Hemoglobin noted. Continue to monitor CBC. Objective - Vital Signs Vital signs: Vital Signs Temp 98.2 F 09/23/23 08:00 Pulse 64 09/23/23 08:00 Resp 20 09/23/23 08:00 BP 157/58 09/23/23 08:00 Pulse Ox 96 09/23/23 08:00 FiO2 Intake & Output 09/22/23 09/23/23 09/23/23 18:59 06:59 18:59 Intake Total 540 150 480 Output Total 400 Balance 140 150 480 Intake: IV 300 Oral 240 150 480 Output: Urine 400 Other: Voiding Method Bedside Commode Bedside Commode Bedside Commode External Catheter External Catheter # Voids 2 - Labs CBC & Chem 7: 09/23/23 08:58 09/23/23 14:31 Labs: Abnormal Lab Results - Last 24 Hours (Table) 09/22/23 09/22/23 09/23/23 Range/Units 18:09 20:47 05:53 RBC (3.80-5.40) m/uL Hgb (11.4-16.0) gm/dL Hct (34.0-46.0) % RDW (11.5-15.5) % Plt Count (150-450) k/uL Lymphocytes # (1.0-4.8) k/uL POC Glucose (mg/dL) 134 H 208 H 152 H (70-110) mg/dL 09/23/23 09/23/23 Range/Units 08:58 11:43 RBC 2.52 L (3.80-5.40) m/uL Hgb 6.7 L* (11.4-16.0) gm/dL Hct 21.6 L (34.0-46.0) % RDW 18.5 H (11.5-15.5) % Plt Count 140 L (150-450) k/uL Lymphocytes # 0.4 L (1.0-4.8) k/uL POC Glucose (mg/dL) 148 H (70-110) mg/dL
[2023-09-23 14:17] LABS: Reticulocyte % 1.2 % (0.5-2.0)
[2023-09-23 15:01] LABS: African American GFR (CKD) 33 (>60 ml/min/1.73 sqM); Anion Gap 2 mmol/L; Blood Urea Nitrogen 61 mg/dL (7-17); Calcium 8.6 mg/dL (8.4-10.2); Carbon Dioxide 34 mmol/L (22-30); Chloride 106 mmol/L (98-107); Glucose 162 mg/dL (74-99); Non-African American GFR(CKD) 29 (>60 ml/min/1.73 sqM); Potassium 4.4 mmol/L (3.5-5.1); Sodium 142 mmol/L (137-145)
[2023-09-23 19:38] LABS: Glucose,Whole Blood 225 mg/dL (70-110)
--- NOTE | 2023-09-23 19:57 | NM ---
EXAMINATION TYPE: NM GI bleeding DATE OF EXAM: 09/23/2023 CLINICAL INDICATION: Female, 73 years old with history of afib, GI bleed-etiology unknown COMPARISON: NONE Following administration of 3 ml PYP 26 mCi Tc 99m Sodium Pertechnate. Immediate images post injectio n. FINDINGS: Normal tracer activity is seen in the blood pool of the abdominal aorta, common iliac arteries, femor al arteries, liver, and spleen on all of the interval images. Later images show accumulation of trace r in the urinary bladder, which is consistent with excreted tracer. No abnormal tracer uptake is pres ent outside the blood pool that would be consistent with an active GI bleed. IMPRESSION: Negative examination. No evidence of active gastrointestinal bleeding during the initial 1 hr observa tion period, and no evidence of active gastrointestinal bleeding during the second hr of observation.
[2023-09-23 20:10] LABS: Glucose,Whole Blood 199 mg/dL (70-110)
[2023-09-23] MEDS: FUROSEMIDE 10 MG/ML 2 ML VIAL IV ONE (23:44)
[2023-09-24 05:54] LABS: Glucose,Whole Blood 199 mg/dL (70-110)
[2023-09-24 11:29] LABS: Glucose,Whole Blood 165 mg/dL (70-110)
[2023-09-24 11:59] LABS: Anisocytosis Slight; Basophils % (A) 0 %; Eosinophils # (A) 0.2 k/uL (0-0.7); Eosinophils % (A) 3 %; HCT 24.5 % (34.0-46.0); HGB 7.3 gm/dL (11.4-16.0); Hypochromasia Marked; Lymphocytes # (A) 0.4 k/uL (1.0-4.8); Lymphocytes % (A) 6 %; MCH 25.9 pg (25.0-35.0); MCHC 29.9 g/dL (31.0-37.0); MCV 86.7 fL (80.0-100.0); Mean Platelet Volume 8.9; Monocytes # (A) 0.5 k/uL (0-1.0); Monocytes % (A) 7 %; Neutrophils # (A) 5.8 k/uL (1.3-7.7); Neutrophils % (A) 81 %; Platelet Count 131 k/uL (150-450); RBC 2.83 m/uL (3.80-5.40); RDW 18.1 % (11.5-15.5); WBC 7.1 k/uL (3.8-10.6)
[2023-09-24 12:08] LABS: African American GFR (CKD) 35 (>60 ml/min/1.73 sqM); Anion Gap 3 mmol/L; Blood Urea Nitrogen 58 mg/dL (7-17); Calcium 8.9 mg/dL (8.4-10.2); Carbon Dioxide 34 mmol/L (22-30); Chloride 105 mmol/L (98-107); Glucose 150 mg/dL (74-99); Non-African American GFR(CKD) 31 (>60 ml/min/1.73 sqM); Potassium 4.6 mmol/L (3.5-5.1); Sodium 142 mmol/L (137-145)
--- NOTE | 2023-09-24 12:40 | P.DS ---
Providers Date of admission: 09/20/23 18:08 Expected date of discharge: 09/24/23 Attending physician: Marcelino Cruz Consults: 09/21/23 10:44 Consult Physician Routine Consulting Provider: Pablito Jay Consult Reason/Comments: anemia Do you want consulting provider notified?: Yes Primary care physician: [facility] Course: Final Diagnoses: Acute GI bleed with symptomatic blood loss anemia accompanied by melena stools, in a patient on Eliquis, history of prior GI bleed with chronic anemia . iron deficient. (Previous EGDs, colonoscopy reporting nonbleeding antral ulceration, suspected diverticular bleeding, antral gastritis. Status post transfusion of 3 units of packed RBCs. Status post EGD and colonoscopy reporting antral gastritis, large internal/external hemorrhoids, diverticulosis and a right colon polyp. Tagged RBC reported negative examination, no evidence of active GI bleeding during 2 hours of observation. Recheck count within normal limits, 1.2 (0.5-2). Fluid volume overload, eventually received Lasix post completion of 2 units packed RBCs, improved Chronic diastolic CHF Acute on chronic renal failure, stage III Elevated D-dimer, ruling out PE, suspect related to recent COVID, in a patient currently maintained on Eliquis at home. Doppler reported right lower extremity SVT involving the greater saphenous vein extending right up to the junction with the common femoral vein. Chronic hypoxic, hypercapnic respiratory failure, wears 3 L nasal cannula at home History of COVID x 3, chronic fibrotic changes secondary to the COVID infection as per pulmonary, last episode recent within the last 3 months reported per PCP. Obstructive sleep apnea, hypercapnic, requiring BiPAP Moderate to severe pulmonary hypertension Mild aortic stenosis Severe tricuspid regurgitation Chronic kidney disease,III History of UTI with Klebsiella pneumoniae, ESBL History of Chronic Bilateral lower extremity cellulitis Chronic persistent atrial fibrillation, anticoagulated on Eliquis-currently on hold CAD, history of CABG Hypertension hyperlipidemia Diabetes mellitus, last hemoglobin A1c 6.9, Diabetic neuropathy Hypothyroidism Depression, history of History of bariatric surgery Morbid obesity, BMI 59 Hospital course:This is a 73-year-old pleasant female with past medical history significant for COVID x 3 -most recent in the last 3 months as per PCP ,chronic hypoxic respiratory failure, multifactorial-wears 3 L nasal cannula O2 at home, diastolic CHF, obstructive sleep apnea, morbid obesity, chronic kidney disease stage III persistent atrial fibrillation-anticoagulated on Eliquis, CAD, diabetes mellitus and multiple other medical issues presented to the ER with complaints of worsening dyspnea, dark stools x 4-5 days. Reports she walked to the car without her oxygen to proceed to her PCP office visit. Once in the car she applied her nasal cannula/oxygen. Unbeknownst to her, the nasal cannula tubing was kinked. Dyspnea worsened with lips blue, EMS called , oxygen applied with patient quickly returning her O2 sats into the 90s and transferred to our ER. On admission hemoglobin 4.3, received 2 units of packed RBCs, developed nicole e pulmonary edema, received Lasix IV push with significant clinical improvement. Chest x-ray reported suspected prominent pulmonary edema.hemoglobin improving, up to 7.3, platelets 141. Maintaining O2 sats in the 90s on 3 L nasal cannula- baseline. Denies nausea vomiting or diarrhea. Denies abdominal pain.Previous EGDs, colonoscopy reporting nonbleeding antral ulceration, suspected diverticular bleeding, antral gastritis. Patient also reports after last inpatient visit she was worked up for watchman's procedure, and the decision was made between patient's family, patient and the physician not to proceed. There was some confusion regarding if she had consistently been taking her Eliquis; external medication history reflects prescription refilled for Eliquis on 09/17/2023. Currently denies any increased chest pain, palpitations or shortness of breath. Denies increased lower extremity edema. elevated D-dimer, 5.09, troponin negative, proBNP 4370.BUN 101, creatinine 2.04. Blood sugars better controlled. Afebrile, normal WBC, lactic acid 0.6. UA reported many bacteria, many WBC clumps, 173 WBCs, large leukocytes and negative nitrates. 09/22/2023 NPO, did not complete her prep. Denies nausea vomiting or diarrhea. Denies abdominal pain. Denies chest pain, palpitations or increased shortness of breath. Maintaining O2 sats in the high 90s on 3 L nasal cannula. Hemoglobin 7, platelets 155, renal function improving- BUN 81, creatinine 1.78. Urine culture uncollected. Afebrile, normal WBC. VQ scan reported low probability for pulmonary embolus, Doppler study of bilateral lower extremities reported right lower extremity SVT involving the greater saphenous vein extending right up to the junction with the common femoral vein otherwise no evidence for DVT within the right lower extremity imaged down to the upper calf, left upper extremity limited unable to visualize upper calf veins, popliteal vein only seen in transverse plane with no DVT identified down to the knee. General surgery recommending to discontinue Eliquis permanently. PCP Dr. Cruz discussed with patient's embossed or impressed lettering painter NANCY Weller-continues to recommend watchman's procedure. Discussed with patient high risk being off anticoagulation, as well as on. Patient advised to follow-up with Dr. NANCY Weller as soon as possible to facilitate Watchman procedure. Patient will be discharged home today in a stable condition with guarded prognosis. The impression and plan of care has been dictated as directed. : I performed a history and examination of this patient, discussed the same with the dictator. I agree with the dictator's note ,documented as a scribe. Any additional findings or plans will be noted. Patient Condition at Discharge: Stable Plan - Discharge Summary Discharge Rx Participant: No New Discharge Prescriptions: New amLODIPine [Norvasc] 5 mg PO DAILY #30 tab Pantoprazole Sodium [Protonix] 40 mg PO DAILY #30 tab Continue Atorvastatin [Lipitor] 40 mg PO HS Isosorbide Mononitrate [Isosorbide Mononitrate ER] 30 mg PO DAILY Oxybutynin Chloride 5 mg PO BID Mirtazapine [Remeron] 15 mg PO HS Amiodarone [Cordarone] 200 mg PO DAILY HYDROcodone/APAP 10-325MG [[place] 10-325] 1 tab PO Q6H PRN PRN Reason: Pain Insulin Detemir (Levemir) [Levemir] 42 unit SQ HS Acetaminophen Tab [Tylenol] 650 mg PO Q6H PRN PRN Reason: Pain Insulin Detemir (Levemir) [Levemir] 45 unit SQ DAILY INSULIN ASPART (NovoLOG) [NovoLOG (formulary)] 30 unit SQ BID Gabapentin [Neurontin] 300 mg PO BID #6 cap Levothyroxine Sodium [Synthroid] 50 mcg PO DAILY Potassium Chloride [Potassium Chloride ER (K-Dur GEQ)] 20 meq PO DAILY Sertraline [Zoloft] 100 mg PO BID Furosemide [Lasix] 40 mg PO BID@0900,1600 #180 tab Metoprolol Succinate (ER) [Toprol XL] 25 mg PO DAILY #90 tab metOLazone 2.5 mg PO MOFR Discontinued Aspirin EC [Ecotrin Low Dose] 81 mg PO DAILY Apixaban [Eliquis] 2.5 mg PO BID Discharge Medication List Atorvastatin [Lipitor] 40 mg PO HS 08/10/16 [History] Isosorbide Mononitrate [Isosorbide Mononitrate ER] 30 mg PO DAILY 08/10/16 [History] Oxybutynin Chloride 5 mg PO BID 08/10/16 [History] Mirtazapine [Remeron] 15 mg PO HS 04/12/22 [History] Acetaminophen Tab [Tylenol] 650 mg PO Q6H PRN 05/08/22 [History] INSULIN ASPART (NovoLOG) [NovoLOG (formulary)] 30 unit SQ BID 07/09/22 [History] Insulin Detemir (Levemir) [Levemir] 45 unit SQ DAILY 07/09/22 [History] Gabapentin [Neurontin] 300 mg PO BID #6 cap 07/14/22 [Rx] Amiodarone [Cordarone] 200 mg PO DAILY 12/17/22 [History] HYDROcodone/APAP 10-325MG [[place] 10-325] 1 tab PO Q6H PRN 12/17/22 [History] Levothyroxine Sodium [Synthroid] 50 mcg PO DAILY 12/17/22 [History] Potassium Chloride [Potassium Chloride ER (K-Dur GEQ)] 20 meq PO DAILY 12/17/22 [History] Sertraline [Zoloft] 100 mg PO BID 12/17/22 [History] Furosemide [Lasix] 40 mg PO BID@0900,1600 #180 tab 12/20/22 [Rx] Metoprolol Succinate (ER) [Toprol XL] 25 mg PO DAILY #90 tab 12/20/22 [Rx] Insulin Detemir (Levemir) [Levemir] 42 unit SQ HS 09/20/23 [History] metOLazone 2.5 mg PO MOFR 09/20/23 [History] Pantoprazole Sodium [Protonix] 40 mg PO DAILY #30 tab 09/24/23 [Rx] amLODIPine [Norvasc] 5 mg PO DAILY #30 tab 09/24/23 [Rx] Follow up Appointment(s)/Referral(s): Marcelino Cruz Jr, DO [Primary Care Provider] - [facility] [NON-STAFF] - Bryant Weller MD [STAFF PHYSICIAN] - 1 Week (Facilitate follow-up for watchman's procedure) Activity/Diet/Wound Care/Special Instructions: General surgery recommending no oral anticoagulation. PCP Dr. Cruz discussed with patient's embossed or impressed lettering painter NANCY Weller-continues to recommend watchman's procedure. Patient to follow-up with Dr. NANCY Weller as soon as possible to facilitate Watchman procedure. Discussed with patient, high risk being on anticoagulation, as well as off.
--- NOTE | 2023-09-24 12:51 | P.PN ---
Subjective Progress Note Date: 09/24/23 CHIEF COMPLAINT: GI bleed HISTORY OF PRESENT ILLNESS: Patient lying in bed comfortably. She denies any a bdominal pain. Denies any nausea or vomiting. She has had no further BMs. HGB 6.7 up to 7.3 after 1 unit PRBC. She is status post EGD and colonoscopy with report showing antral gastritis, large internal/external hemorrhoids, diverticulosis and a right colon polyp. PHYSICAL EXAM: VITAL SIGNS: Reviewed. GENERAL: Well-developed in no acute distress. ABDOMEN: Soft. Nondistended. Nontender. NEUROLOGIC: Alert and oriented. Cranial nerves II through XII grossly intact. ASSESSMENT: 1. Acute GI bleed 2. Acute blood loss anemia with melanotic stool 3. Prior history of peptic ulcer disease 4. On blood thinners at home PLAN: -Patient can be discharged from surgical standpoint -Continue PPI at discharge -Continue to monitor for any signs or symptoms of bleeding -Recommend to discontinue Eliquis permanently Physician Medicine Man note has been reviewed by physician. Signing provider agrees with the documented findings, assessment, and plan of care. I have personally seen and examined the patient, reviewed the SASH REPAIRER /PAs history, exam and MDM and agree with the assessment and plan as written. Based on total visit time, I have performed more than 50% of the visit. As above: Patient doing well. Hemoglobin relatively stable. Will sign off. Please call if needed. Objective - Vital Signs Vital signs: Vital Signs Temp 97.8 F 09/24/23 11:05 Pulse 79 09/24/23 11:05 Resp 18 09/24/23 11:05 BP 158/58 09/24/23 11:05 Pulse Ox 98 09/24/23 11:05 FiO2 Intake & Output 09/23/23 09/24/23 09/24/23 18:59 06:59 18:59 Intake Total 840 310 930 Output Total 1100 600 Balance -260 -290 930 Intake: Oral 840 0 930 Blood Product 310 Rc As-1 Unit 310 [id number] Output: Urine 1100 600 Other: Voiding Method Bedside Commode External Catheter External Catheter External Catheter - Labs CBC & Chem 7: 09/24/23 10:40 09/24/23 10:40 Labs: Abnormal Lab Results - Last 24 Hours (Table) 09/20/23 09/23/23 09/23/23 Range/Units 17:05 14:31 19:37 RBC (3.80-5.40) m/uL Hgb (11.4-16.0) gm/dL Hct (34.0-46.0) % MCHC (31.0-37.0) g/dL RDW (11.5-15.5) % Plt Count (150-450) k/uL Lymphocytes # (1.0-4.8) k/uL Carbon Dioxide 34 H (22-30) mmol/L BUN 61 H (7-17) mg/dL Creatinine 1.72 H (0.52-1.04) mg/dL Glucose 162 H (74-99) mg/dL POC Glucose (mg/dL) 225 H (70-110) mg/dL Crossmatch See Detail 09/23/23 09/24/23 09/24/23 Range/Units 20:05 05:52 10:40 RBC 2.83 L (3.80-5.40) m/uL Hgb 7.3 L (11.4-16.0) gm/dL Hct 24.5 L (34.0-46.0) % MCHC 29.9 L (31.0-37.0) g/dL RDW 18.1 H (11.5-15.5) % Plt Count 131 L (150-450) k/uL Lymphocytes # 0.4 L (1.0-4.8) k/uL Carbon Dioxide (22-30) mmol/L BUN (7-17) mg/dL Creatinine (0.52-1.04) mg/dL Glucose (74-99) mg/dL POC Glucose (mg/dL) 199 H 199 H (70-110) mg/dL Crossmatch 09/24/23 09/24/23 Range/Units 10:40 11:27 RBC (3.80-5.40) m/uL Hgb (11.4-16.0) gm/dL Hct (34.0-46.0) % MCHC (31.0-37.0) g/dL RDW (11.5-15.5) % Plt Count (150-450) k/uL Lymphocytes # (1.0-4.8) k/uL Carbon Dioxide 34 H (22-30) mmol/L BUN 58 H (7-17) mg/dL Creatinine 1.64 H (0.52-1.04) mg/dL Glucose 150 H (74-99) mg/dL POC Glucose (mg/dL) 165 H (70-110) mg/dL Crossmatch
--- NOTE | 2023-09-24 12:59 | P.PN ---
Subjective Progress Note Date: 09/24/23 H&P Date: 09/21/23 Chief Complaint: Dyspnea, This is a 73-year-old pleasant female with past medical history significant for COVID x 3 -most recent in the last 3 months as per PCP ,chronic hypoxic respiratory failure, multifactorial-wears 3 L nasal cannula O2 at home, diastolic CHF, obstructive sleep apnea, morbid obesity, chronic kidney disease stage III persistent atrial fibrillation-anticoagulated on Eliquis, CAD, diabetes mellitus and multiple other medical issues presented to the ER with complaints of worsening dyspnea, dark stools x 4-5 days. Reports she walked to the car without her oxygen to proceed to her PCP office visit. Once in the car she applied her nasal cannula/oxygen. Unbeknownst to her, the nasal cannula tubing was kinked. Dyspnea worsened with lips blue, EMS called , oxygen applied with patient quickly returning her O2 sats into the 90s and transferred to our ER. On admission hemoglobin 4.3, received 2 units of packed RBCs, developed some pulmonary edema, received Lasix IV push with significant clinical improvement. Chest x-ray reported suspected prominent pulmonary edema.hemoglobin improving, up to 7.3, platelets 141. Maintaining O2 sats in the 90s on 3 L nasal cannula-baseline. Denies nausea vomiting or diarrhea. Denies abdominal pain.Previous EGDs, colonoscopy reporting nonbleeding antral ulceration, susp ected diverticular bleeding, antral gastritis. Patient also reports after last inpatient visit she was worked up for watchman's procedure, and the decision was made between patient's family, patient and the physician not to proceed. There was some confusion regarding if she had consistently been taking her Eliquis; external medication history reflects prescription refilled for Eliquis on 09/17/2023. Currently denies any increased chest pain, palpitations or shortness of breath. Denies increased lower extremity edema. elevated D-dimer, 5.09, troponin negative, proBNP 4370.BUN 101, creatinine 2.04. Blood sugars better controlled. Afebrile, normal WBC, lactic acid 0.6. UA reported many bacteria, many WBC clumps, 173 WBCs, large leukocytes and negative nitrates. 09/22/2023 NPO, did not complete her prep. Denies nausea vomiting or diarrhea. Denies abdominal pain. Denies chest pain, palpitations or increased shortness of breath. Maintaining O2 sats in the high 90s on 3 L nasal cannula. Hemoglobin 7, platelets 155, renal function improving- BUN 81, creatinine 1.78. Urine culture uncollected. Afebrile, normal WBC. VQ scan reported low probability for pulmonary embolus, Doppler study of bilateral lower extremities reported right lower extremity SVT involving the greater saphenous vein extending right up to the junction with the common femoral vein otherwise no evidence for DVT within the right lower extremity imaged down to the upper calf, left upper extremity limited unable to visualize upper calf veins, popliteal vein only seen in transverse plane with no DVT identified down to the knee. 09/23 23 Hemoglobin 6.7, 2 units packed RBCs followed by 20 units of Lasix IV push after each unit ordered. Platelets 140. No further bowel movements. Denies nausea/ vomiting. denies abdominal pain. maintained on IV Protonix. Status Post EGD and colonoscopy reporting antral gastritis, large internal and external hemorrhoids, diverticulosis and right colon polyp. General surgery recommending to discontinue Eliquis permanently. PCP, Dr. Patel will be discussing with patient's spanish literature professor Dr. NANCY Weller recommendations. Objective - Vital Signs Vital signs: Vital Signs Temp 98.2 F 09/23/23 08:00 Pulse 64 09/23/23 08:00 Resp 20 09/23/23 08:00 BP 157/58 09/23/23 08:00 Pulse Ox 96 09/23/23 08:00 FiO2 Intake & Output 09/22/23 09/23/23 09/23/23 18:59 06:59 18:59 Intake Total 540 150 840 Output Total 400 1100 Balance 140 150 -260 Intake: IV 300 Oral 240 150 840 Output: Urine 400 1100 Other: Voiding Method Bedside Commode Bedside Commode Bedside Commode External Catheter External Catheter # Voids 2 - Exam General: Awake, alert and oriented times 3. Sitting up in bed, no acute distress HEENT: [PERRL. Conjunctiva pale. Neck: [Supple, unable to evaluate JVD-short neck. Cardiac: [Currently regular rate and rhythm. Systolic murmur.] Lungs: Unlabored, essentially clear with bilateral bases diminished. Abdomen: [Soft, obese, nontender, no mass appreciated. Positive bowel sounds. Extremes: [Mild edema, no cyanosis denies calf tenderness,normal pulses] Skin: Warm and dry,No rash. - Labs CBC & Chem 7: 09/24/23 10:40 09/24/23 10:40 Labs: Abnormal Lab Results - Last 24 Hours (Table) 09/20/23 09/22/23 09/22/23 Range/Units 17:05 18:09 20:47 RBC (3.80-5.40) m/uL Hgb (11.4-16.0) gm/dL Hct (34.0-46.0) % RDW (11.5-15.5) % Plt Count (150-450) k/uL Lymphocytes # (1.0-4.8) k/uL Carbon Dioxide (22-30) mmol/L BUN (7-17) mg/dL Creatinine (0.52-1.04) mg/dL Glucose (74-99) mg/dL POC Glucose (mg/dL) 134 H 208 H (70-110) mg/dL Crossmatch See Detail 09/23/23 09/23/23 09/23/23 Range/Units 05:53 08:58 11:43 RBC 2.52 L (3.80-5.40) m/uL Hgb 6.7 L* (11.4-16.0) gm/dL Hct 21.6 L (34.0-46.0) % RDW 18.5 H (11.5-15.5) % Plt Count 140 L (150-450) k/uL Lymphocytes # 0.4 L (1.0-4.8) k/uL Carbon Dioxide (22-30) mmol/L BUN (7-17) mg/dL Creatinine (0.52-1.04) mg/dL Glucose (74-99) mg/dL POC Glucose (mg/dL) 152 H 148 H (70-110) mg/dL Crossmatch 09/23/23 Range/Units 14:31 RBC (3.80-5.40) m/uL Hgb (11.4-16.0) gm/dL Hct (34.0-46.0) % RDW (11.5-15.5) % Plt Count (150-450) k/uL Lymphocytes # (1.0-4.8) k/uL Carbon Dioxide 34 H (22-30) mmol/L BUN 61 H (7-17) mg/dL Creatinine 1.72 H (0.52-1.04) mg/dL Glucose 162 H (74-99) mg/dL POC Glucose (mg/dL) (70-110) mg/dL Crossmatch Assessment and Plan Assessment: Acute symptomatic blood loss anemia with melena stools, in a patient on Eliquis, history of prior GI bleed with chronic anemia . iron deficient. (Previous EGDs, colonoscopy reporting nonbleeding antral ulceration, suspected diverticular bleeding, antral gastritis.status post transfusion of packed 3 units of packed RBCs.Status post EGD and colonoscopy reporting antral gastritis, large internal/external hemorrhoids, diverticulosis and a right colon polyp. Fluid volume overload, eventually received Lasix post completion of 2 units packed RBCs, improved Chronic diastolic CHF Acute on chronic renal failure, stage III Elevated D-dimer, ruling out PE, suspect related to recent COVID, in a patient currently maintained on Eliquis at home. Doppler reported right lower extremity SVT involving the greater saphenous vein extending right up to the junction with the common femoral vein. Chronic hypoxic, hypercapnic respiratory failure, wears 3 L nasal cannula at home History of COVID x 3, chronic fibrotic changes secondary to the COVID infection as per pulmonary, last episode recent within the last 3 months reported per PCP. Obstructive sleep apnea, hypercapnic, requiring BiPAP Moderate to severe pulmonary hypertension Mild aortic stenosis Severe tricuspid regurgitation Chronic kidney disease,III History of UTI with Klebsiella pneumoniae, ESBL History of Chronic Bilateral lower extremity cellulitis Chronic persistent atrial fibrillation, anticoagulated on Eliquis-currently on hold CAD, history of CABG Hypertension hyperlipidemia Diabetes mellitus, last hemoglobin A1c 6.9, Diabetic neuropathy Hypothyroidism Depression, history of History of bariatric surgery Morbid obesity, BMI 59 Plan: Continue on current medication regimen ,monitoring and symptomatic treatment. Transfused 2 units of packed RBCs with close monitoring of hemoglobin, platelets .maintain on PPI.General surgery recommending to discontinue Eliquis permanently. PCP, Dr. Patel will be discussing with patient's spanish literature professor Dr. NANCY Weller recommendations. Tagged RBC study ordered. Reticulocyte count ordered. prognosis guarded given multiple complex medical issues. The impression and plan of care has been dictated as directed. : I performed a history and examination of this patient, discussed the same with the dictator. I agree with the dictator's note ,documented as a scribe. Any additional findings or plans will be noted.
[2023-09-24 16:57] LABS: Glucose,Whole Blood 206 mg/dL (70-110)
[2023-09-24] MEDS: FUROSEMIDE 40 MG TAB PO SCH (16:59)
[2023-09-24 20:21] LABS: Glucose,Whole Blood 269 mg/dL (70-110)
[2023-09-25 07:02] LABS: Glucose,Whole Blood 114 mg/dL (70-110)
[2023-09-25 11:41] LABS: Glucose,Whole Blood 99 mg/dL (70-110)
[2023-09-25 17:34] LABS: Glucose,Whole Blood 179 mg/dL (70-110)
[2023-09-25 19:22] LABS: Glucose,Whole Blood 224 mg/dL (70-110)
[2023-09-26 07:07] LABS: Glucose,Whole Blood 103 mg/dL (70-110)
[2023-09-26] MEDS: PANTOPRAZOLE 40 MG TABLET PO SCH (10:12)
[2023-09-26 11:49] LABS: Glucose,Whole Blood 120 mg/dL (70-110)
--- NOTE | 2023-09-26 12:48 | P.PN ---
Subjective Progress Note Date: 09/26/23 Principal diagnosis: Atrial fibrillation Patient was admitted with flash pulmonary edema which has since resolved is in atrial fibrillation and is in dire need of a watchman's procedure we discussed this case at length and patient agrees to revisit the specialist that she saw dana contreras performs the Watchman's procedure Patient has defervesced to nightly will be discharged to either a rehab unit or home tomorrow with instructions to follow-up as soon as possible with the marketing proposal specialist that does the watchman's procedure Objective - Vital Signs Vital signs: Vital Signs Temp 98.7 F 09/26/23 07:05 Pulse 59 L 09/26/23 07:05 Resp 17 09/26/23 07:05 BP 134/56 09/26/23 07:05 Pulse Ox 95 09/26/23 08:51 FiO2 Intake & Output 09/25/23 09/26/23 09/26/23 18:59 06:59 18:59 Intake Total 200 Output Total 700 Balance -700 200 Weight 140 kg Intake: Oral 200 Output: Urine 700 Other: Voiding Method External Catheter External Catheter External Catheter # Voids 1 2 - Exam General: [Patient awake, alert and oriented times 3. Patient in no acute distress., Morbidly obese HEENT: [PERRL. EOMI. No pharyngeal erythema or exudate.] Neck: [No adenopathy.] Cardiac: [Heart regular in rate and rhythm. No S3. No S4. No clicks, rubs. No murmur.] Lungs: [Clear to auscultation bilaterally.] Abdomen: [No mass. No organomegaly. Bowel sounds presnt and normoactive in all 4 quadrants.] Extremes: [No edema no cyanosis no claudication normal pulses] : Normal female genitalia Musculoskeletal: [No joint erythema, edema or tenderness.] Skin: [No rash.] Neurologic: [No lateralizing deficits. CN II - XII grossly intact.] Lymphatic: [No adenopathy.] - Labs CBC & Chem 7: 09/24/23 10:40 09/24/23 10:40 Labs: Abnormal Lab Results - Last 24 Hours (Table) 09/25/23 09/25/23 09/26/23 Range/Units 17:32 19:20 11:48 POC Glucose (mg/dL) 179 H 224 H 120 H (70-110) mg/dL Assessment and Plan (1) Anemia Current Visit: Yes Status: Acute Code(s): D64.9 - ANEMIA, UNSPECIFIED SNOMED Code(s): 010444352 (2) Pulmonary edema Current Visit: Yes Status: Acute Code(s): J81.1 - CHRONIC PULMONARY EDEMA SNOMED Code(s): 16482367 (3) Acquired hypothyroidism Current Visit: No Status: Acute Code(s): E03.9 - HYPOTHYROIDISM, UNSPECIFIED SNOMED Code(s): 154840909 (4) Acute on chronic anemia Current Visit: No Status: Acute Code(s): D64.9 - ANEMIA, UNSPECIFIED SNOMED Code(s): 626984273 (5) Acute on chronic diastolic (congestive) heart failure Current Visit: No Status: Acute Code(s): I50.33 - ACUTE ON CHRONIC DIASTOLIC (CONGESTIVE) HEART FAILURE SNOMED Code(s): 868075571 (6) Atrial fibrillation Current Visit: No Status: Acute Code(s): I48.91 - UNSPECIFIED ATRIAL FIBRILLATION SNOMED Code(s): 17742363 Plan: Dissipate discharge to rehab center or home rehab Follow-up with marketing proposal specialist to perform watchman's procedure Discussed this at length with the patient and she agrees to revisit Patient is currently hemodynamically stable waiting on placement
[2023-09-26 17:20] LABS: Glucose,Whole Blood 178 mg/dL (70-110)
[2023-09-26 20:26] LABS: Glucose,Whole Blood 221 mg/dL (70-110)
[2023-09-27 07:07] LABS: Glucose,Whole Blood 153 mg/dL (70-110)
[2023-09-27 09:49] LABS: Anisocytosis Slight; HCT 25.6 % (34.0-46.0); HGB 7.8 gm/dL (11.4-16.0); Hypochromasia Marked; MCH 26.3 pg (25.0-35.0); MCHC 30.5 g/dL (31.0-37.0); MCV 86.2 fL (80.0-100.0); Mean Platelet Volume 8.6; Platelet Count 120 k/uL (150-450); RBC 2.97 m/uL (3.80-5.40); RDW 18.4 % (11.5-15.5); WBC 6.5 k/uL (3.8-10.6)
[2023-09-27 11:50] LABS: Glucose,Whole Blood 153 mg/dL (70-110)
[2023-09-27 13:39] VITALS: BMI 54.8
[2023-09-27 14:10] VITALS: BP 166/65; PULSE 64; RESP 18; TEMP 98.3
== END 2023-09-27 18:53 | DRG 377 ==
LOC: EC 15:18 → 3SCARD 18:08 → 5NMEDONC 09-24 22:19
PROVIDERS: ADMIT Family Medicine; ATTEND Family Medicine
PROC: 30233N1 Transfusion of Nonautologous Red Blood Cells into Peripheral Vein, Percutaneous Approach (ICD-10-PCS; 2023-09-20)
PROC: 0DBF8ZZ Excision of Right Large Intestine, Via Natural or Artificial Opening Endoscopic (ICD-10-PCS; principal; 2023-09-22 08:30)
PROC: 0DB78ZX Excision of Stomach, Pylorus, Via Natural or Artificial Opening Endoscopic, Diagnostic (ICD-10-PCS; 2023-09-22 08:30)
DX: K57.31 Diverticulosis of large intestine without perforation or abscess with bleeding (principal); I50.33 Acute on chronic diastolic (congestive) heart failure; D62 Acute posthemorrhagic anemia; Z68.43 Body mass index [BMI] 50.0-59.9, adult; I13.0 Hypertensive heart and chronic kidney disease with heart failure and stage 1 through stage 4 chronic kidney disease, or unspecified chronic kidney disease; I48.19 Other persistent atrial fibrillation; I82.811 Embolism and thrombosis of superficial veins of right lower extremity; J96.11 Chronic respiratory failure with hypoxia; J96.12 Chronic respiratory failure with hypercapnia; N17.9 Acute kidney failure, unspecified; E03.9 Hypothyroidism, unspecified; E66.01 Morbid (severe) obesity due to excess calories; E78.5 Hyperlipidemia, unspecified; F32.A Depression, unspecified; G47.33 Obstructive sleep apnea (adult) (pediatric); N18.30 Chronic kidney disease, stage 3 unspecified; H54.7 Unspecified visual loss; M10.9 Gout, unspecified; G89.29 Other chronic pain; D63.1 Anemia in chronic kidney disease; E11.40 Type 2 diabetes mellitus with diabetic neuropathy, unspecified; I25.10 Atherosclerotic heart disease of native coronary artery without angina pectoris; I27.20 Pulmonary hypertension, unspecified; I08.2 Rheumatic disorders of both aortic and tricuspid valves; E11.22 Type 2 diabetes mellitus with diabetic chronic kidney disease; K63.5 Polyp of colon; K64.4 Residual hemorrhoidal skin tags; K64.8 Other hemorrhoids; K29.51 Unspecified chronic gastritis with bleeding; I45.10 Unspecified right bundle-branch block; Z98.84 Bariatric surgery status; Z86.16 Personal history of COVID-19; Z79.01 Long term (current) use of anticoagulants; Z79.899 Other long term (current) drug therapy; Z99.81 Dependence on supplemental oxygen; Z79.4 Long term (current) use of insulin; Z79.82 Long term (current) use of aspirin; Z79.890 Hormone replacement therapy; Z82.49 Family history of ischemic heart disease and other diseases of the circulatory system; Z87.11 Personal history of peptic ulcer disease; Z87.440 Personal history of urinary (tract) infections; Z90.710 Acquired absence of both cervix and uterus; Z95.1 Presence of aortocoronary bypass graft
CPT/HCPCS: 36415; 36430; 43239; 45380; 71046; 78278; 78582; 80048; 80053; 81001; 83010; 83036; 83605; 83735; 83880; 84484; 85025; 85027; 85045; 85379; 85610; 85730; 86850; 86900; 86901; 86920; 88305; 93005; 93970; 94760; 96374; 99291

== ENCOUNTER 2024-01-30 03:36 | Inpatient (IN) | payer MEDICARE, OTHER ==
[2024-01-30 04:18] LABS: Anisocytosis Slight; Basophils % (A) 1 %; Eosinophils # (A) 0.2 k/uL (0-0.7); Eosinophils % (A) 4 %; HCT 25.4 % (34.0-46.0); HGB 7.5 gm/dL (11.4-16.0); Hypochromasia Marked; Lymphocytes # (A) 0.5 k/uL (1.0-4.8); Lymphocytes % (A) 11 %; MCH 27.2 pg (25.0-35.0); MCHC 29.5 g/dL (31.0-37.0); MCV 92.4 fL (80.0-100.0); Mean Platelet Volume 9.3; Monocytes # (A) 0.3 k/uL (0-1.0); Monocytes % (A) 6 %; Neutrophils # (A) 3.6 k/uL (1.3-7.7); Neutrophils % (A) 77 %; Platelet Count 105 k/uL (150-450); RBC 2.75 m/uL (3.80-5.40); RDW 17.7 % (11.5-15.5); WBC 4.7 k/uL (3.8-10.6)
[2024-01-30 04:35] LABS: ALT 13 U/L (4-34); AST 23 U/L (14-36); African American GFR (CKD) 19 (>60 ml/min/1.73 sqM); Albumin 3.7 g/dL (3.5-5.0); Alkaline Phosphatase 108 U/L (38-126); Anion Gap 7 mmol/L; Blood Urea Nitrogen 75 mg/dL (7-17); Calcium 8.7 mg/dL (8.4-10.2); Carbon Dioxide 29 mmol/L (22-30); Chloride 105 mmol/L (98-107); Glucose 157 mg/dL (74-99); Non-African American GFR(CKD) 16 (>60 ml/min/1.73 sqM); Potassium 5.4 mmol/L (3.5-5.1); Sodium 141 mmol/L (137-145); Total Bilirubin 0.6 mg/dL (0.2-1.3)
[2024-01-30 04:44] LABS: NT-Pro-B-Type Natriuretic Pept 9500 pg/mL
[2024-01-30 04:51] LABS: INR 1.2 (<1.2); Partial Thromboplastin Time 23.5 sec (22.0-30.0); Prothrombin Time 12.5 sec (10.0-12.5)
--- NOTE | 2024-01-30 04:52 | XR ---
EXAMINATION TYPE: XR chest 1V portable DATE OF EXAM: 01/30/2024 COMPARISON: Prior chest x-ray September 20, 2023 HISTORY: Dyspnea. TECHNIQUE: Single frontal view of the chest is obtained. FINDINGS: Overlying sternal wires along with cardiomegaly is redemonstrated. There is mild to modera te central vascular congestion suspected. The osseous structures are intact. IMPRESSION: Correlate for suspected CHF exacerbation/fluid overload state.
[2024-01-30] MEDS: FUROSEMIDE 10 MG/ML 4 ML VIAL IV STA (06:47)
[2024-01-30] MEDS ORDERED: ACETAMINOPHEN TAB 325 MG TAB PO PRN (07:21)
--- NOTE | 2024-01-30 07:30 | ED ---
SOB HPI - General Chief Complaint: Shortness of Breath Stated Complaint: KEARA Time Seen by Provider: 01/30/24 03:38 Source: EMS Mode of arrival: EMS - History of Present Illness Initial Comments: Patient should this patient is a 74-year-old woman with history of congestive heart failure who arrives by ambulance to have evaluation for worsening of her respiratory status. Patient reports that around an hour before she arrived she was trying to go to sleep. She was using her home oxygen at 3 L and she began feeling more more short of breath. EMS arrived and found her with poor pulse oximetry numbers and placed her on positive pressure mask and she started to have improvement in her breathing. The patient denied having fever or chills. No chest pain. She had occasional cough with white sputum. She has not noticed change in urination. She states that her legs always have some edema and this appears unchanged. MD Complaint: shortness of breath, cough Onset/Timin -: hour(s) Severity scale (1-10): 0 Consistency: constant Improves With: oxygen, upright position Worsens With: lying flat Known History Of: congestive heart failure Associated Symptoms: cough, sputum production Treatments Prior to Arrival: oxygen, NIPPV - Related Data Home Oxygen Therapy: Yes Home Oxygen Amount: 3 Liters Home Medications Medication Instructions Recorded Confirmed Atorvastatin [Lipitor] 40 mg PO HS 08/10/16 01/30/24 Isosorbide Mononitrate [Isosorbide 30 mg PO DAILY 08/10/16 01/30/24 Mononitrate ER] Oxybutynin Chloride 5 mg PO DAILY 08/10/16 01/30/24 Mirtazapine [Remeron] 15 mg PO HS 04/12/22 01/30/24 Acetaminophen Tab [Tylenol] 650 mg PO Q6H PRN 05/08/22 01/30/24 Levothyroxine Sodium [Synthroid] 50 mcg PO DAILY 12/17/22 01/30/24 Sertraline [Zoloft] 100 mg PO BID 12/17/22 01/30/24 INSULIN ASPART (NovoLOG) [NovoLOG 20 unit SQ BID 01/30/24 01/30/24 (formulary)] Insulin Glargine,Hum.rec.anlog 14 units SQ BID 01/30/24 01/30/24 [Zulema Ta] Pantoprazole [Protonix] 40 mg PO DAILY 01/30/24 01/30/24 Previous Rx's Medication Instructions Recorded Gabapentin [Neurontin] 300 mg PO BID #6 cap 09/24/23 HYDROcodone/APAP 10-325MG [[place] 1 tab PO Q8H PRN #9 tab 09/24/23 10-325] Bumetanide [BUMEX] 1 mg PO BID@0900,1600 30 Days #60 02/04/24 tab Losartan [Cozaar] 12.5 mg PO DAILY 30 Days #15 tab 02/04/24 amLODIPine [Norvasc] 5 mg PO BID 30 Days #60 tab 02/04/24 carvediloL [Coreg] 6.25 mg PO BID-W/MEALS 30 Days #60 02/04/24 tab Allergies Allergy/AdvReac Type Severity Reaction Status Date / Time ibuprofen [From Motrin] Allergy Rash/Hives Verified 01/30/24 14:23 Penicillins Allergy Anaphylaxis Verified 01/30/24 14:23 Review of Systems ROS Statement: Those systems with pertinent positive or pertinent negative responses have been documented in the HPI. ROS Other: All systems not noted in ROS Statement are negative. Constitutional: Denies: fever, chills, weakness Respiratory: Reports: cough, dyspnea. Denies: hemoptysis Cardiovascular: Reports: orthopnea, edema. Denies: chest pain, palpitations, syncope Gastrointestinal: Denies: abdominal pain, nausea, vomiting, diarrhea Genitourinary: Denies: dysuria, hematuria Musculoskeletal: Denies: back pain Skin: Denies: rash Neurological: Denies: headache, weakness Past Medical History Past Medical History: Atrial Fibrillation, Coronary Artery Disease (CAD), COPD, Diabetes Mellitus, Eye Disorder, Hyperlipidemia, Hypertension, Osteoarthritis (OA), Pneumonia, Renal Disease, Sleep Apnea/CPAP/BIPAP, Thyroid Disorder Additional Past Medical History / Comment(s): Pt recently admitted to [facility] on 05/08/22 with anemia/had EGD and colonoscopy which showed nonbleeding stomach ulcer/diverticular disease and colon polyp, pt received blood transfusions. Other hx: 02/12/22 covid/pneumonia/sepsis, other past pneumonias, acute hypoxic respiratory failure/now on home oxygen ATC, new A fib with RVR, IDDM type II, neuropathy bilateral feet, L eye retinal bleed/lasik eye surgery, R eye cataract, bilateral eye macular degeneration/gets injections/poor vision, CKD stage III, anemia, UTI/sepsis, bilateral leg lymphedema, FLORES/does not have cpap machine at this time, diverticulitis, gout, chronic back pain, rheumatic fever, hypothyroid. History of Any Multi-Drug Resistant Organisms: ESBL Date of last positivie culture/infection: 05/22/22 ESBL Klebsiella MDRO Source:: Urine Past Surgical History: Bariatric Surgery, Section, Cholecystectomy, Coronary Bypass/CABG, Heart Catheterization, Hysterectomy, Orthopedic Surgery, Tonsillectomy Additional Past Surgical History / Comment(s): EGD, colonoscopy, 2 vessel CABG in 1996, bilateral carpal tunnel release, lap band, L eye laser surgery, Past Anesthesia/Blood Transfusion Reactions: No Reported Reaction Past Psychological History: Depression Smoking Status: Never smoker Past Alcohol Use History: None Reported Past Drug Use History: None Reported - Past Family History Father History Unknown: Yes Family Medical History: Cancer, Coronary Artery Disease (CAD), Diabetes Mellitus Additional Family Medical History / Comment(s): Prostate cancer Mother History Unknown: Yes Family Medical History: Cancer Additional Family Medical History / Comment(s): Bone cancer. General Exam General appearance: alert, in no apparent distress Head exam: Present: atraumatic, normocephalic Eye exam: Present: normal appearance. Absent: scleral icterus, conjunctival injection Neck exam: Present: normal inspection Respiratory exam: Present: normal lung sounds bilaterally, rales. Absent: respiratory distress, wheezes, rhonchi, stridor, accessory muscle use Cardiovascular Exam: Present: bradycardia. Absent: systolic murmur, diastolic murmur, rubs, gallop GI/Abdominal exam: Present: soft. Absent: distended, tenderness, guarding, rebound, rigid, mass Extremities exam: Present: normal inspection, normal capillary refill, pedal edema. Absent: calf tenderness Back exam: Present: normal inspection Neurological exam: Present: alert Skin exam: Present: warm, dry, intact, normal color. Absent: rash Course Vital Signs 01/30/24 01/30/24 01/30/24 03:38 03:50 04:47 Temperature 98.4 F Pulse Rate 55 L 46 L Respiratory 21 21 Rate Blood Pressure 133/53 134/54 O2 Sat by Pulse 100 97 Oximetry Fraction of 40 Inspired Oxygen (FIO2) 06/01/30/24 01/30/24 07:00 07:27 07:56 Temperature Pulse Rate 42 L 42 L Respiratory 21 20 Rate Blood Pressure 129/52 135/55 O2 Sat by Pulse 97 100 Oximetry Fraction of 40 Inspired Oxygen (FIO2) 01/30/24 08:01 Temperature Pulse Rate 42 L Respiratory 18 Rate Blood Pressure 141/57 O2 Sat by Pulse 99 Oximetry Fraction of Inspired Oxygen (FIO2) Medical Decision Making - Medical Decision Making The patient had chest x-ray that I interpreted as showing exacerbation of congestive heart failure. No pneumothorax or acute infiltrate Was pt. sent in by a medical professional or institution (, PA, ENGRAVING PATTERNMAKER, urgent care, hospital, or [facility]...) When possible be specific @ -[No] Did you speak to anyone other than the patient for history (EMS, parent, family, police, friend...)? What history was obtained from this source @ -[No] Did you review nursing and triage notes (agree or disagree)? Why? @ -[I reviewed and agree with nursing and triage notes] Were old charts reviewed (outside hosp., previous admission, EMS record, old EKG, old radiological studies, urgent care reports/EKG's, [facility] records)? Report findings @ -[Yes, old charts were reviewed] Differential Diagnosis (chest pain, altered mental status, abdominal pain women, abdominal pain men, vaginal bleeding, weakness, fever, dyspnea, syncope, headache, dizziness, GI bleed, back pain, seizure, CVA, palpatations, mental health, musculoskeletal)? @ -[Differential Dyspnea: Coronary syndrome, arrhythmia, tamponade, asthma, COPD, pulmonary embolism, pneumonia, pneumothorax, pulmonary effusion, anaphylaxis, diabetic ketoacidosis, flailed chest, pulmonary contusion, diaphragmatic rupture, anemia, neuromuscular, this is not meant to be an all-inclusive list. EKG interpreted by me (3pts min.). @ -I interpreted as above] X-rays interpreted by me (1pt min.). @ -[I interpreted as above CT interpreted by me (1pt min.). @ -[None done] U/S interpreted by me (1pt. min.). @ -[None done] What testing was considered but not performed or refused? (CT, X-rays, U/S, labs)? Why? @ -[None] What meds were considered but not given or refused? Why? @ -[None] Did you discuss the management of the patient with other professionals (laura collier i.e. , PA, ENGRAVING PATTERNMAKER, lab, RT, psych nurse, social media community manager, subway train operator, teacher, commercial escrow officer, counseling case manager)? Give summary @ -[Case discussed with admitting physician and treatment recommendations in corporated Was smoking cessation discussed for >3mins.? @ -[No] Was critical care preformed (if so, how long)? @ -[Yes, 30 minutes Were there social determinants of health that impacted care today? How? (Homelessness, low income, unemployed, alcoholism, drug addiction, transportation, low edu. Level, literacy, decrease access to med. care, care home, rehab)? @ -[No] Was there de-escalation of care discussed even if they declined (Discuss DNR or withdrawal of care, Hospice)? DNR status @ -[No] What co-morbidities impacted this encounter? (DM, HTN, Smoking, COPD, CAD, Cancer, CVA, ARF, Chemo, Hep., AIDS, mental health diagnosis, sleep apnea, morbid obesity)? @ -[Diabetes, hypertension, congestive heart failure Was patient admitted / discharged? Hospital course, mention meds given and route, prescriptions, significant lab abnormalities, going to OR and other pertinent info. @ -[Patient is 74-year-old woman presenting with exacerbation of CHF. Patient will be admitted to have further care including cardiology consultation and echocardiogram Undiagnosed new problem with uncertain prognosis? @ -[No] Drug Therapy requiring intensive monitoring for toxicity (Heparin, Nitro, Insulin, Cardizem)? @ -[No] Were any procedures done? @ -[No] Diagnosis/symptom? @ -[Acute dyspnea Acute kidney injury Hyperkalemia Anemia Acute, or Chronic, or Acute on Chronic? @ -[Acute Uncomplicated (without systemic symptoms) or Complicated (systemic symptoms)? @ -[Complicated by dyspnea Side effects of treatment? @ -[No] Exacerbation, Progression, or Severe Exacerbation? @ -[Exacerbation of congestive heart failure Poses a threat to life or bodily function? How? (Chest pain, [place], [place], pneumonia, PE, COPD, DKA, ARF, appy, cholecystitis, CVA, Diverticulitis, Homicidal, Suicidal, threat to staff... and all critical care pts) @ -[Yes - Lab Data Result diagrams: 02/03/24 07:50 02/04/24 12:09 Lab Results 01/30/24 01/30/24 01/30/24 Range/Units 03:50 03:50 03:50 WBC 4.7 (3.8-10.6) k/uL RBC 2.75 L (3.80-5.40) m/uL Hgb 7.5 L (11.4-16.0) gm/dL Hct 25.4 L (34.0-46.0) % MCV 92.4 (80.0-100.0) fL MCH 27.2 (25.0-35.0) pg MCHC 29.5 L (31.0-37.0) g/dL RDW 17.7 H (11.5-15.5) % Plt Count 105 L (150-450) k/uL MPV 9.3 Neutrophils % 77 % Lymphocytes % 11 % Monocytes % 6 % Eosinophils % 4 % Basophils % 1 % Neutrophils # 3.6 (1.3-7.7) k/uL Lymphocytes # 0.5 L (1.0-4.8) k/uL Monocytes # 0.3 (0-1.0) k/uL Eosinophils # 0.2 (0-0.7) k/uL Basophils # 0.0 (0-0.2) k/uL Hypochromasia Marked Anisocytosis Slight PT 12.5 (10.0-12.5) sec INR 1.2 H (<1.2) APTT 23.5 (22.0-30.0) sec Sodium 141 (137-145) mmol/L Potassium 5.4 H (3.5-5.1) mmol/L Chloride 105 (98-107) mmol/L Carbon Dioxide 29 (22-30) mmol/L Anion Gap 7 mmol/L BUN 75 H (7-17) mg/dL Creatinine 2.73 H (0.52-1.04) mg/dL Est GFR (CKD-EPI)AfAm 19 (>60 ml/min/1.73 sqM) Est GFR (CKD-EPI)NonAf 16 (>60 ml/min/1.73 sqM) Glucose 157 H (74-99) mg/dL Plasma Lactic Acid Garcia (0.7-2.0) mmol/L Calcium 8.7 (8.4-10.2) mg/dL Iron (50-170) UG/DL TIBC (228-460) UG/DL % Saturation (12.00-45.00) Transferrin (204.0-354.0) mg/dL Ferritin (10.0-291.0) ng/mL Total Bilirubin 0.6 (0.2-1.3) mg/dL AST 23 (14-36) U/L ALT 13 (4-34) U/L Alkaline Phosphatase 108 (38-126) U/L Troponin I (0.000-0.034) ng/mL NT-Pro-B Natriuret Pep 9500 pg/mL Total Protein 7.0 (6.3-8.2) g/dL Albumin 3.7 (3.5-5.0) g/dL 01/30/24 01/30/24 01/30/24 Range/Units 03:50 03:50 03:50 WBC (3.8-10.6) k/uL RBC (3.80-5.40) m/uL Hgb (11.4-16.0) gm/dL Hct (34.0-46.0) % MCV (80.0-100.0) fL MCH (25.0-35.0) pg MCHC (31.0-37.0) g/dL RDW (11.5-15.5) % Plt Count (150-450) k/uL MPV Neutrophils % % Lymphocytes % % Monocytes % % Eosinophils % % Basophils % % Neutrophils # (1.3-7.7) k/uL Lymphocytes # (1.0-4.8) k/uL Monocytes # (0-1.0) k/uL Eosinophils # (0-0.7) k/uL Basophils # (0-0.2) k/uL Hypochromasia Anisocytosis PT (10.0-12.5) sec INR (<1.2) APTT (22.0-30.0) sec Sodium (137-145) mmol/L Potassium (3.5-5.1) mmol/L Chloride (98-107) mmol/L Carbon Dioxide (22-30) mmol/L Anion Gap mmol/L BUN (7-17) mg/dL Creatinine (0.52-1.04) mg/dL Est GFR (CKD-EPI)AfAm (>60 ml/min/1.73 sqM) Est GFR (CKD-EPI)NonAf (>60 ml/min/1.73 sqM) Glucose (74-99) mg/dL Plasma Lactic Acid Garcia 1.4 (0.7-2.0) mmol/L Calcium (8.4-10.2) mg/dL Iron 24 L (50-170) UG/DL TIBC 398 (228-460) UG/DL % Saturation 6.03 L (12.00-45.00) Transferrin 284.0 (204.0-354.0) mg/dL Ferritin (10.0-291.0) ng/mL Total Bilirubin (0.2-1.3) mg/dL AST (14-36) U/L ALT (4-34) U/L Alkaline Phosphatase (38-126) U/L Troponin I <0.012 (0.000-0.034) ng/mL NT-Pro-B Natriuret Pep pg/mL Total Protein (6.3-8.2) g/dL Albumin (3.5-5.0) g/dL 01/30/24 Range/Units 03:50 WBC (3.8-10.6) k/uL RBC (3.80-5.40) m/uL Hgb (11.4-16.0) gm/dL Hct (34.0-46.0) % MCV (80.0-100.0) fL MCH (25.0-35.0) pg MCHC (31.0-37.0) g/dL RDW (11.5-15.5) % Plt Count (150-450) k/uL MPV Neutrophils % % Lymphocytes % % Monocytes % % Eosinophils % % Basophils % % Neutrophils # (1.3-7.7) k/uL Lymphocytes # (1.0-4.8) k/uL Monocytes # (0-1.0) k/uL Eosinophils # (0-0.7) k/uL Basophils # (0-0.2) k/uL Hypochromasia Anisocytosis PT (10.0-12.5) sec INR (<1.2) APTT (22.0-30.0) sec Sodium (137-145) mmol/L Potassium (3.5-5.1) mmol/L Chloride (98-107) mmol/L Carbon Dioxide (22-30) mmol/L Anion Gap mmol/L BUN (7-17) mg/dL Creatinine (0.52-1.04) mg/dL Est GFR (CKD-EPI)AfAm (>60 ml/min/1.73 sqM) Est GFR (CKD-EPI)NonAf (>60 ml/min/1.73 sqM) Glucose (74-99) mg/dL Plasma Lactic Acid Garcia (0.7-2.0) mmol/L Calcium (8.4-10.2) mg/dL Iron (50-170) UG/DL TIBC (228-460) UG/DL % Saturation (12.00-45.00) Transferrin (204.0-354.0) mg/dL Ferritin 48.4 (10.0-291.0) ng/mL Total Bilirubin (0.2-1.3) mg/dL AST (14-36) U/L ALT (4-34) U/L Alkaline Phosphatase (38-126) U/L Troponin I (0.000-0.034) ng/mL NT-Pro-B Natriuret Pep pg/mL Total Protein (6.3-8.2) g/dL Albumin (3.5-5.0) g/dL Disposition Clinical Impression: Acute on chronic anemia, Congestive heart failure, Acute kidney injury Disposition: ADMITTED IP TO THIS HOSP Condition: Poor Is patient prescribed a controlled substance at d/c from ED?: No
[2024-01-30 11:33] LABS: Glucose,Whole Blood 161 mg/dL (70-110)
[2024-01-30] MEDS: PANTOPRAZOLE 40 MG TABLET PO SCH (12:23)
[2024-01-30] MEDS: oxyBUTYnin chloride 5 MG TAB PO SCH (12:24)
[2024-01-30] MEDS: LEVOTHYROXINE 50 MCG TAB PO SCH (12:24)
--- NOTE | 2024-01-30 13:27 | P.HPIM ---
History of Present Illness H&P Date: 01/30/24 Chief Complaint: dyspnea, exertional dyspnea patient states it's been quite humid and she had been using her air conditioning sparingly and she her breathing became compromised Review of Systems Constitutional: Reports weakness Ears, nose, mouth and throat: Reports as per HPI Cardiovascular: Reports chest pain, Reports dyspnea on exertion, Reports high blood pressure, Reports leg edema, Reports shortness of breath Respiratory: Reports congestion, Reports dyspnea, Reports home oxygen, Reports wheezing Gastrointestinal: Reports abdominal pain, Reports nausea Genitourinary: Reports as per HPI Menstruation: Reports as per HPI Musculoskeletal: Reports as per HPI Integumentary: Reports as per HPI Neurological: Reports as per HPI Psychiatric: Reports as per HPI Endocrine: Reports high blood sugars Hematologic/Lymphatic: Reports as per HPI Allergic/Immunologic: Reports as per HPI Past Medical History Past Medical History: Atrial Fibrillation, Coronary Artery Disease (CAD), COPD, Diabetes Mellitus, Eye Disorder, Hyperlipidemia, Hypertension, Osteoarthritis (OA), Pneumonia, Renal Disease, Sleep Apnea/CPAP/BIPAP, Thyroid Disorder Additional Past Medical History / Comment(s): Pt recently admitted to [facility] on 05/08/22 with anemia/had EGD and colonoscopy which showed nonbleeding stomach ulcer/diverticular disease and colon polyp, pt received blood transfusions. Other hx: 02/12/22 covid/pneumonia/sepsis, other past pneumonias, acute hypoxic respiratory failure/now on home oxygen ATC, new A fib with RVR, IDDM type II, neuropathy bilateral feet, L eye retinal bleed/lasik eye surgery, R eye cataract, bilateral eye macular degeneration/gets injections/poor vision, CKD stage III, anemia, UTI/sepsis, bilateral leg lymphedema, FLORES/does not have cpap machine at this time, diverticulitis, gout, chronic back pain, rheumatic fever, hypothyroid. History of Any Multi-Drug Resistant Organisms: ESBL Date of last positivie culture/infection: 05/22/22 ESBL Klebsiella MDRO Source:: Urine Past Surgical History: Bariatric Surgery, Section, Cholecystectomy, Coronary Bypass/CABG, Heart Catheterization, Hysterectomy, Orthopedic Surgery, Tonsillectomy Additional Past Surgical History / Comment(s): EGD, colonoscopy, 2 vessel CABG in 1996, bilateral carpal tunnel release, lap band, L eye laser surgery, Past Anesthesia/Blood Transfusion Reactions: No Reported Reaction Past Psychological History: Depression Smoking Status: Never smoker Past Alcohol Use History: None Reported Past Drug Use History: None Reported - Past Family History Father History Unknown: Yes Family Medical History: Cancer, Coronary Artery Disease (CAD), Diabetes Mellitus Additional Family Medical History / Comment(s): Prostate cancer Mother History Unknown: Yes Family Medical History: Cancer Additional Family Medical History / Comment(s): Bone cancer. Medications and Allergies Home Medications Medication Instructions Recorded Confirmed Type Atorvastatin [Lipitor] 40 mg PO HS 08/10/16 09/20/23 History Isosorbide Mononitrate [Isosorbide 30 mg PO DAILY 08/10/16 09/20/23 History Mononitrate ER] Oxybutynin Chloride 5 mg PO BID 08/10/16 09/20/23 History Mirtazapine [Remeron] 15 mg PO HS 04/12/22 09/20/23 History Acetaminophen Tab [Tylenol] 650 mg PO Q6H PRN 05/08/22 09/20/23 History Amiodarone [Cordarone] 200 mg PO DAILY 12/17/22 09/20/23 History Levothyroxine Sodium [Synthroid] 50 mcg PO DAILY 12/17/22 09/20/23 History Potassium Chloride [Potassium 20 meq PO DAILY 12/17/22 09/20/23 History Chloride ER (K-Dur GEQ)] Sertraline [Zoloft] 100 mg PO BID 12/17/22 09/20/23 History Furosemide [Lasix] 40 mg PO BID@0900,1600 #180 tab 12/20/22 09/20/23 Rx Metoprolol Succinate (ER) [Toprol 25 mg PO DAILY #90 tab 12/20/22 09/20/23 Rx XL] Insulin Detemir (Levemir) [Levemir] 42 unit SQ HS 09/20/23 09/20/23 History metOLazone 2.5 mg PO MOFR 09/20/23 09/20/23 History Gabapentin [Neurontin] 300 mg PO BID #6 cap 09/24/23 Rx HYDROcodone/APAP 10-325MG [Clay 1 tab PO Q8H PRN #9 tab 09/24/23 Rx 10-325] INSULIN LISPRO (HumaLOG) [humaLOG] 0 unit SQ ACHS #10 ml 09/24/23 Rx Pantoprazole [Protonix] 40 mg PO AC-BID #60 tab 09/27/23 Rx Allergies Allergy/AdvReac Type Severity Reaction Status Date / Time ibuprofen [From Motrin] Allergy Rash/Hives Verified 01/30/24 03:47 Penicillins Allergy Anaphylaxis Verified 01/30/24 03:47 Physical Exam Osteopathic Statement: *. No significant issues noted on an osteopathic structural exam other than those noted in the History and Physical/Consult. Vitals: Vital Signs Temp Pulse Pulse Pulse Resp BP BP 01/30/24 11:41 01/30/24 08:45 96.4 F L 44 L 44 L 18 112/47 01/30/24 08:01 42 L 18 141/57 01/30/24 07:56 01/30/24 07:27 42 L 20 135/55 01/30/24 07:00 42 L 21 129/52 01/30/24 04:47 46 L 21 134/54 01/30/24 03:50 01/30/24 03:38 98.4 F 55 L 21 133/53 Pulse Ox FiO2 01/30/24 11:41 40 01/30/24 08:45 98 01/30/24 08:01 99 01/30/24 07:56 40 01/30/24 07:27 100 01/30/24 07:00 97 01/30/24 04:47 97 01/30/24 03:50 40 01/30/24 03:38 100 Intake and Output 01/29/24 01/30/24 01/30/24 22:59 06:59 14:59 Other: Weight 142.882 kg General: [Patient awake, alert and oriented times 3. mild distress resolved On BiPAP when observed, otherwise morbidly obese HEENT: [PERRL. EOMI. No pharyngeal erythema or exudate.] Neck: [No adenopathy.] Cardiac: [Heart regular in rate and rhythm. No S3. No S4. No clicks, rubs. No murmur. midline surgical scar secondary to coronary artery bypass grafting Lungs: diminished breath sounds bilaterally Abdomen: [No mass. No organomegaly. Bowel sounds presnt and normoactive in all 4 quadrants.] Extremes: [No edema no cyanosis no claudication normal pulses] : normal female genitalia Musculoskeletal: [No joint erythema, edema or tenderness.] Skin: [No rash.] Neurologic: [No lateralizing deficits. CN II - XII grossly intact.] Lymphatic: [No adenopathy.] Results CBC & Chem 7: 01/30/24 03:50 01/30/24 03:50 Labs: Abnormal Lab Results - Last 24 Hours (Table) 01/30/24 01/30/24 01/30/24 Range/Units 03:50 03:50 03:50 RBC 2.75 L (3.80-5.40) m/uL Hgb 7.5 L (11.4-16.0) gm/dL Hct 25.4 L (34.0-46.0) % MCHC 29.5 L (31.0-37.0) g/dL RDW 17.7 H (11.5-15.5) % Plt Count 105 L (150-450) k/uL Lymphocytes # 0.5 L (1.0-4.8) k/uL INR 1.2 H (<1.2) Potassium 5.4 H (3.5-5.1) mmol/L BUN 75 H (7-17) mg/dL Creatinine 2.73 H (0.52-1.04) mg/dL Glucose 157 H (74-99) mg/dL POC Glucose (mg/dL) (70-110) mg/dL 01/30/24 Range/Units 11:30 RBC (3.80-5.40) m/uL Hgb (11.4-16.0) gm/dL Hct (34.0-46.0) % MCHC (31.0-37.0) g/dL RDW (11.5-15.5) % Plt Count (150-450) k/uL Lymphocytes # (1.0-4.8) k/uL INR (<1.2) Potassium (3.5-5.1) mmol/L BUN (7-17) mg/dL Creatinine (0.52-1.04) mg/dL Glucose (74-99) mg/dL POC Glucose (mg/dL) 161 H (70-110) mg/dL Thrombosis Risk Factor Assmnt - DVT/VTE Prophylaxis DVT/VTE Prophylaxis: Pharmacologic Prophylaxis ordered - Choose All That Apply Each Risk Factor Represents 3 Points: Age 75 years or older Thrombosis Risk Factor Assessment Total Risk Factor Score: 3 Thrombosis Risk Factor Assessment Level: Moderate Risk Assessment and Plan (1) Acquired hypothyroidism Current Visit: No Status: Acute Code(s): E03.9 - HYPOTHYROIDISM, UNSPECIFIED SNOMED Code(s): 936026555 (2) Acute on chronic anemia Current Visit: No Status: Acute Code(s): D64.9 - ANEMIA, UNSPECIFIED SNOMED Code(s): 512985237 (3) Acute on chronic diastolic (congestive) heart failure Current Visit: No Status: Acute Code(s): I50.33 - ACUTE ON CHRONIC DIASTOLIC (CONGESTIVE) HEART FAILURE SNOMED Code(s): 122199797 (4) Acute on chronic respiratory failure with hypoxemia Current Visit: No Status: Acute Code(s): J96.21 - ACUTE AND CHRONIC RESPIRATORY FAILURE WITH HYPOXIA SNOMED Code(s): 19898521847894447 (5) CHF exacerbation Current Visit: No Status: Acute Code(s): I50.9 - HEART FAILURE, UNSPECIFIED SNOMED Code(s): 431560012 (6) CKD (chronic kidney disease) stage 3, GFR 30-59 ml/min Current Visit: No Status: Acute Code(s): N18.30 - CHRONIC KIDNEY DISEASE, STAGE 3 UNSPECIFIED SNOMED Code(s): 353170432 (7) Chronic diastolic (congestive) heart failure Current Visit: No Status: Acute Code(s): I50.32 - CHRONIC DIASTOLIC (CON GESTIVE) HEART FAILURE SNOMED Code(s): 813624243 Plan: aggressive diuresis BiPAP Cardiology consult Pulmonary consult Manipulation of meds Time with Patient: Greater than 30
[2024-01-30] MEDS: GABAPENTIN 300 MG CAP PO SCH (14:26)
--- NOTE | 2024-01-30 14:52 | P.CRDCN ---
History of Present Illness Consult date: 01/30/24 Consult reason: congestive heart failure, shortness of breath Chief complaint: sob History of present illness: History of present illness: Patient is a pleasant 74-year-old female with significant past medical history of CAD with prior CABG, CKD, severe pulmonary hypertension, diabetes, hyperlipidemia, a-fib, and history of recurrent GI bleed who presents with worsening shortness of breath. She does follow in the office with Dr. Weller. Reports that she has been having worsening shortness of breath. She is curren tly on BiPAP. She denies having any chest pain or pressure. Chest x-ray shows mildmoderate central vascular congestion. EKG shows sinus bradycardia 51 bpm, right bundle branch block. Telemetry does show heart rates in the 30s40s. Labs reviewed: Hemoglobin 7.5, potassium 5.4, creatinine 2.3, troponin negative x 1, BNP 9500. She does report that her shortness of breath is slightly better at this morning on BiPAP. REVIEW OF SYSTEMS: No fever or chills. No cough or expectoration. No diaphor esis. Patient denies headache, dizziness, blurred vision, double vision. Patient denies any stomach discomfort. No nausea, vomiting. No hematochezia. No hematemesis. Denies any black stools or blood in his stools. Denies dysuria or hematuria. No muscle weakness or numbness. No chest pain or pressure. Reports shortness of breath. PHYSICAL EXAMINATION: This is a 74-year-old female in no apparent distress at the time of my examination. HEENT: Head is atraumatic, normocephalic. Pupils are equal, round. Sclerae anicteric. Conjunctivae are clear. Mucous membranes of the mouth are moist. Neck is supple. There is no jugular venous distention. No carotid bruit is heard. CHEST EXAMINATION: Lungs are diminished throughout. On bipap. No chest wall tenderness is noted on palpation or with deep breathing. HEART EXAMINATION: Heart regular rate and rhythm. S1, S2 heard. No murmurs, gallops or rub. ABDOMEN: Soft, nontender. Bowel sounds are heard. obese. EXTREMITIES: 2+ peripheral pulses with 1+ peripheral edema and no calf tenderness noted. NEUROLOGIC EXAMINATION: Patient is awake, alert and oriented x3. IMPRESSION AND PLAN: CAD status post CABG in 1996 History of GI bleed Severe pulmonary hypertension Valvular heart disease including moderate MR, severe TR, mild Congestive heart failure with preserved EF, acute on chronic Chronic kidney disease Hypertension Hyperlipidemia Diabetes Shortness of breath A-fib Bradycardia PLAN: We will continue with IV diuretics. Monitor kidney function as well as I's and O's. Monitor heart rates. Continue with current regimen. We will follow. I am dictating on behalf of Dr. Kishore Echols's history/physical and assessment/plan. Past Medical History Past Medical History: Atrial Fibrillation, Coronary Artery Disease (CAD), COPD, Diabetes Mellitus, Eye Disorder, Hyperlipidemia, Hypertension, Osteoarthritis (OA), Pneumonia, Renal Disease, Sleep Apnea/CPAP/BIPAP, Thyroid Disorder Additional Past Medical History / Comment(s): Pt recently admitted to [facility] on 05/08/22 with anemia/had EGD and colonoscopy which showed nonbleeding stomach ulcer/diverticular disease and colon polyp, pt received blood transfusions. Other hx: 02/12/22 covid/pneumonia/sepsis, other past pneumonias, acute hypoxic respiratory failure/now on home oxygen ATC, new A fib with RVR, IDDM type II, neuropathy bilateral feet, L eye retinal bleed/lasik eye surgery, R eye cataract, bilateral eye macular degeneration/gets injections/poor vision, CKD stage III, anemia, UTI/sepsis, bilateral leg lymphedema, FLORES/does not have cpap machine at this time, diverticulitis, gout, chronic back pain, rheumatic fever, hypothyroid. History of Any Multi-Drug Resistant Organisms: ESBL Date of last positivie culture/infection: 05/22/22 ESBL Klebsiella MDRO Source:: Urine Past Surgical History: Bariatric Surgery, Section, Cholecystectomy, Coronary Bypass/CABG, Heart Catheterization, Hysterectomy, Orthopedic Surgery, Tonsillectomy Additional Past Surgical History / Comment(s): EGD, colonoscopy, 2 vessel CABG in 1996, bilateral carpal tunnel release, lap band, L eye laser surgery, Past Anesthesia/Blood Transfusion Reactions: No Reported Reaction Past Psychological History: Depression Smoking Status: Never smoker Past Alcohol Use History: None Reported Past Drug Use History: None Reported - Past Family History Father History Unknown: Yes Family Medical History: Cancer, Coronary Artery Disease (CAD), Diabetes Mellitus Additional Family Medical History / Comment(s): Prostate cancer Mother History Unknown: Yes Family Medical History: Cancer Additional Family Medical History / Comment(s): Bone cancer. Medications and Allergies Home Medications Medication Instructions Recorded Confirmed Type Atorvastatin [Lipitor] 40 mg PO HS 08/10/16 01/30/24 History Isosorbide Mononitrate [Isosorbide 30 mg PO DAILY 08/10/16 01/30/24 History Mononitrate ER] Oxybutynin Chloride 5 mg PO DAILY 08/10/16 01/30/24 History Mirtazapine [Remeron] 15 mg PO HS 04/12/22 01/30/24 History Acetaminophen Tab [Tylenol] 650 mg PO Q6H PRN 05/08/22 01/30/24 History Amiodarone [Cordarone] 200 mg PO DAILY 12/17/22 01/30/24 History Levothyroxine Sodium [Synthroid] 50 mcg PO DAILY 12/17/22 01/30/24 History Potassium Chloride [Potassium 20 meq PO DAILY 12/17/22 01/30/24 History Chloride ER (K-Dur GEQ)] Sertraline [Zoloft] 100 mg PO BID 12/17/22 01/30/24 History Furosemide [Lasix] 40 mg PO BID@0900,1600 #180 tab 12/20/22 01/30/24 Rx Metoprolol Succinate (ER) [Toprol 25 mg PO DAILY #90 tab 12/20/22 01/30/24 Rx XL] metOLazone 2.5 mg PO MOFR 09/20/23 01/30/24 History Gabapentin [Neurontin] 300 mg PO BID #6 cap 09/24/23 01/30/24 Rx HYDROcodone/APAP 10-325MG [Bowman 1 tab PO Q8H PRN #9 tab 09/24/23 01/30/24 Rx 10-325] Apixaban [Eliquis] 2.5 mg PO BID 01/30/24 01/30/24 History INSULIN ASPART (NovoLOG) [NovoLOG 20 unit SQ BID 01/30/24 01/30/24 History (formulary)] Insulin Glargine,Hum.rec.anlog 14 units SQ BID 01/30/24 01/30/24 History [Toujeo Solostar] Pantoprazole [Protonix] 40 mg PO DAILY 01/30/24 01/30/24 History Allergies Allergy/AdvReac Type Severity Reaction Status Date / Time ibuprofen [From Motrin] Allergy Rash/Hives Verified 01/30/24 14:23 Penicillins Allergy Anaphylaxis Verified 01/30/24 14:23 Physical Exam Vitals: Vital Signs Temp Pulse Pulse Pulse Resp BP BP 01/30/24 08:45 96.4 F L 44 L 44 L 18 112/47 01/30/24 08:01 42 L 18 141/57 01/30/24 07:56 01/30/24 07:27 42 L 20 135/55 01/30/24 07:00 42 L 21 129/52 01/30/24 04:47 46 L 21 134/54 01/30/24 03:50 01/30/24 03:38 98.4 F 55 L 21 133/53 Pulse Ox FiO2 01/30/24 08:45 98 01/30/24 08:01 99 01/30/24 07:56 40 01/30/24 07:27 100 01/30/24 07:00 97 01/30/24 04:47 97 01/30/24 03:50 40 01/30/24 03:38 100 Intake and Output 01/29/24 01/30/24 01/30/24 22:59 06:59 14:59 Other: Weight 142.882 kg Results 01/30/24 03:50 01/30/24 03:50 Cardiac Enzymes 01/30/24 01/30/24 Range/Units 03:50 03:50 AST 23 (14-36) U/L Troponin I <0.012 (0.000-0.034) ng/mL Coagulation 01/30/24 Range/Units 03:50 PT 12.5 (10.0-12.5) sec APTT 23.5 (22.0-30.0) sec CBC 01/30/24 Range/Units 03:50 WBC 4.7 (3.8-10.6) k/uL RBC 2.75 L (3.80-5.40) m/uL Hgb 7.5 L (11.4-16.0) gm/dL Hct 25.4 L (34.0-46.0) % Plt Count 105 L (150-450) k/uL Comprehensive Metabolic Panel 01/30/24 Range/Units 03:50 Sodium 141 (137-145) mmol/L Potassium 5.4 H (3.5-5.1) mmol/L Chloride 105 (98-107) mmol/L Carbon Dioxide 29 (22-30) mmol/L BUN 75 H (7-17) mg/dL Creatinine 2.73 H (0.52-1.04) mg/dL Glucose 157 H (74-99) mg/dL Calcium 8.7 (8.4-10.2) mg/dL AST 23 (14-36) U/L ALT 13 (4-34) U/L Alkaline Phosphatase 108 (38-126) U/L Total Protein 7.0 (6.3-8.2) g/dL Albumin 3.7 (3.5-5.0) g/dL Current Medications Generic Name Dose Route Start Last Admin Trade Name Freq PRN Reason Stop Dose Admin Acetaminophen 650 mg 01/30/24 07:21 Acetaminophen Tab 325 Mg Tab PO Q6H PRN Pain Hydrocodone Bitart/Acetaminophen 1 each 01/30/24 07:21 Hydrocodone/Apap 10-325mg 1 Each Tab PO Q8H PRN Pain Amiodarone HCl 200 mg 01/30/24 09:00 Amiodarone 200 Mg Tab PO DAILY [facility] Atorvastatin Calcium 40 mg 01/30/24 21:00 Atorvastatin 40 Mg Tab PO HS LD Furosemide 40 mg 01/30/24 18:00 Furosemide 10 Mg/Ml 4 Ml Vial IV Q12H LD Gabapentin 300 mg 01/30/24 09:00 Gabapentin 300 Mg Cap PO BID [facility] Insulin Detemir 42 unit 01/30/24 21:00 Insulin Detemir (Levemir) 100 Unit/Ml Syr SQ HS [facility] Isosorbide Mononitrate 30 mg 01/30/24 09:00 Isosorbide Mononitrate Er 30 Mg Tab.Er.24h PO DAILY [facility] Levothyroxine Sodium 50 mcg 01/30/24 09:00 Levothyroxine 50 Mc[place] 0630 LD Metolazone 2.5 mg 01/31/24 09:00 Metolazone 2.5 Mg Tab PO MOFR [facility] Metoprolol Succinate 25 mg 01/30/24 09:00 Metoprolol Succinate (Er) 25 Mg Tab.Er.24h PO DAILY [facility] Mirtazapine 15 mg 01/30/24 21:00 Mirtazapine 15 Mg Tab PO HS [facility] Oxybutynin Chloride 5 mg 01/30/24 09:00 Oxybutynin Chloride 5 Mg Tab PO BID LD Pantoprazole Sodium 40 mg 01/30/24 07:30 Pantoprazole 40 Mg Tablet PO AC-BID LD Potassium Chloride 20 meq 01/30/24 09:00 Potassium Chloride Er 10 Meq Tab.Er.Prt PO DAILY LD Sodium Chloride 10 ml 01/30/24 09:00 01/30/24 09:18 Sodium Chloride 0.9% Flush 10 Ml Syringe IV 10 ml BID LD Administration Intake and Output 01/29/24 01/30/24 01/30/24 22:59 06:59 14:59 Other: Weight 142.882 kg 01/30/24 03:50 01/30/24 03:50
[2024-01-30 16:36] LABS: Glucose,Whole Blood 150 mg/dL (70-110)
[2024-01-30] MEDS: AMIODARONE 200 MG TAB PO SCH (16:57)
[2024-01-30] MEDS: METOPROLOL SUCCINATE (ER) 25 MG TAB.ER.24H PO SCH (16:58)
[2024-01-30] MEDS: ISOSORBIDE MONONITRATE ER 30 MG TAB.ER.24H PO SCH (17:08)
[2024-01-30] MEDS: FUROSEMIDE 10 MG/ML 4 ML VIAL IV SCH (17:08)
[2024-01-30] MEDS: POTASSIUM CHLORIDE ER 10 MEQ TAB.ER.PRT PO SCH (17:08)
[2024-01-30] MEDS: ATORVASTATIN 40 MG TAB PO SCH (20:05)
[2024-01-30] MEDS: MIRTAZAPINE 15 MG TAB PO SCH (20:05)
[2024-01-30 20:18] LABS: Glucose,Whole Blood 182 mg/dL (70-110)
[2024-01-30] MEDS: INSULIN DETEMIR (LEVEMIR) 100 UNIT/ML SYR SQ SCH (21:43)
--- NOTE | 2024-01-31 04:12 | P.CNPUL ---
History of Present Illness Consult date: 01/31/24 Requesting physician: Domenic Kurtz Reason for consult: dyspnea, other (CHF exacerbation) Chief complaint: Lower extremity swelling and shortness of breath History of present illness: Patient is a 74-year-old white female with past medical history significant for coronary artery disease with previous CABG, atrial fibrillation, hyperlipidemia, hypertension, hypothyroidism, diabetes mellitus, CKD stage III, obstructive sleep apnea with home CPAP, chronic hypoxemic respiratory failure, among other things. Patient's primary care provider is Dr. Cruz. Also follows in the pulmonary office with Dr. Lainez for management of her obstructive sleep apnea, maintained on APAP machine pressures of 4/20 cm of water. Patient presented to the emergency room yesterday morning and some respiratory distress. She was noted to be hypoxic. Initially placed on BiPAP with settings of 12/5 and FiO2 of 40%. Patient states that her shortness of breath has progressively been worsening over the last week. This is associated with increased lower extremity swelling. She states that she has been taking her Lasix as ordered, twice a day, but has not been peeing as much is normal. Denies any other urinary symptoms. Denies any chest pain. She denies any infectious-like symptoms such as fever, cough, sputum production. Chest x-ray done on arrival cardiomegaly with mild to moderate central vascular congestion. Suspect CHF exacerbation/fluid overload. NT proBNP is 9500. She is bradycardic. EKG demonstrating sinus bradycardia with RBBB pattern. Blood pressure is normotensive. CBC: WBC count 4.7, hemoglobin 7.5, hematocrit 25.4, platelets 105. CMP: Sodium 141, potassium 5.4, chloride 105, serum bicarb 29, BUN 75, creatinine 2.73, glucose 157. Lactic 1.4. LFTs not elevated. Troponin less than 0.012. She is currently being monitored on the cardiac unit. Review of Systems REVIEW OF SYSTEMS: CONSTITUTIONAL: Denies any recent significant weight loss or weight gain. Reports increased weakness, has been walking less. Requires walker with ambulation. EYES: Denies change in vision. EARS, NOSE, MOUTH, THROAT: Denies headaches, denies sore throat. CARDIOVASCULAR: Denies chest pain, palpitations or syncopal episodes. RESPIRATORY: Admits progressively worsening shortness of breath over the last week. Denies any significant coughing, sputum production, hemoptysis. GASTROINTESTINAL: Denies change in appetite, abdominal pain, nausea and vomiting, or diarrhea GENITOURINARY: Denies dysuria, hematuria, urinary frequency, denies infections. Also denies any CVA tenderness or flank pain MUSKULOSKELETAL: Denies pain, denies swelling. INTEGUMENTARY: Denies rash, denies eczema. NEUROLOGICAL: Denies recent memory loss, no recent seizure activity. PSYCHIATRIC: Denies anxiety, denies depression. HEMATOLOGIC/LYMPHATIC: Denies anemia, denies enlarged lymph node Past Medical History Past Medical History: Atrial Fibrillation, Coronary Artery Disease (CAD), COPD, Diabetes Mellitus, Eye Disorder, Hyperlipidemia, Hypertension, Osteoarthritis (OA), Pneumonia, Renal Disease, Sleep Apnea/CPAP/BIPAP, Thyroid Disorder Additional Past Medical History / Comment(s): Pt recently admitted to [facility] on 05/08/22 with anemia/had EGD and colonoscopy which showed nonbleeding stomach ulcer/diverticular disease and colon polyp, pt received blood transfusions. Other hx: 02/12/22 covid/pneumonia/sepsis, other past pneumonias, acute hypoxic respiratory failure/now on home oxygen ATC, new A fib with RVR, IDDM type II, neuropathy bilateral feet, L eye retinal bleed/lasik eye surgery, R eye cataract, bilateral eye macular degeneration/gets injections/poor vision, CKD stage III, anemia, UTI/sepsis, bilateral leg lymphedema, FLORES/does not have cpap machine at this time, diverticulitis, gout, chronic back pain, rheumatic fever, hypothyroid. History of Any Multi-Drug Resistant Organisms: ESBL Date of last positivie culture/infection: 05/22/22 ESBL Klebsiella MDRO Source:: Urine Past Surgical History: Bariatric Surgery, Section, Cholecystectomy, Coronary Bypass/CABG, Heart Catheterization, Hysterectomy, Orthopedic Surgery, Tonsillectomy Additional Past Surgical History / Comment(s): EGD, colonoscopy, 2 vessel CABG in 1996, bilateral carpal tunnel release, lap band, L eye laser surgery, Past Anesthesia/Blood Transfusion Reactions: No Reported Reaction Past Psychological History: Depression Smoking Status: Never smoker Past Alcohol Use History: None Reported Past Drug Use History: None Reported - Past Family History Father History Unknown: Yes Family Medical History: Cancer, Coronary Artery Disease (CAD), Diabetes Mellitus Additional Family Medical History / Comment(s): Prostate cancer Mother History Unknown: Yes Family Medical History: Cancer Additional Family Medical History / Comment(s): Bone cancer. Medications and Allergies Home Medications Medication Instructions Recorded Confirmed Type Atorvastatin [Lipitor] 40 mg PO HS 08/10/16 01/30/24 History Isosorbide Mononitrate [Isosorbide 30 mg PO DAILY 08/10/16 01/30/24 History Mononitrate ER] Oxybutynin Chloride 5 mg PO DAILY 08/10/16 01/30/24 History Mirtazapine [Remeron] 15 mg PO HS 04/12/22 01/30/24 History Acetaminophen Tab [Tylenol] 650 mg PO Q6H PRN 05/08/22 01/30/24 History Amiodarone [Cordarone] 200 mg PO DAILY 12/17/22 01/30/24 History Levothyroxine Sodium [Synthroid] 50 mcg PO DAILY 12/17/22 01/30/24 History Potassium Chloride [Potassium 20 meq PO DAILY 12/17/22 01/30/24 History Chloride ER (K-Dur GEQ)] Sertraline [Zoloft] 100 mg PO BID 12/17/22 01/30/24 History Furosemide [Lasix] 40 mg PO BID@0900,1600 #180 tab 12/20/22 01/30/24 Rx Metoprolol Succinate (ER) [Toprol 25 mg PO DAILY #90 tab 12/20/22 01/30/24 Rx XL] metOLazone 2.5 mg PO MOFR 09/20/23 01/30/24 History Gabapentin [Neurontin] 300 mg PO BID #6 cap 09/24/23 01/30/24 Rx HYDROcodone/APAP 10-325MG [[place] 1 tab PO Q8H PRN #9 tab 09/24/23 01/30/24 Rx 10-325] Apixaban [Eliquis] 2.5 mg PO BID 01/30/24 01/30/24 History INSULIN ASPART (NovoLOG) [NovoLOG 20 unit SQ BID 01/30/24 01/30/24 History (formulary)] Insulin Glargine,Hum.rec.anlog 14 units SQ BID 01/30/24 01/30/24 History [Toujeo Solostar] Pantoprazole [Protonix] 40 mg PO DAILY 01/30/24 01/30/24 History Allergies Allergy/AdvReac Type Severity Reaction Status Date / Time ibuprofen [From Motrin] Allergy Rash/Hives Verified 01/30/24 14:23 Penicillins Allergy Anaphylaxis Verified 01/30/24 14:23 Physical Exam Vitals: Vital Signs Temp Pulse Pulse Pulse Resp BP BP 01/31/24 03:30 01/31/24 00:43 01/31/24 00:00 45 L 19 148/63 01/30/24 20:00 97.7 F 42 L 19 141/57 01/30/24 16:02 01/30/24 16:00 36 L 149/57 01/30/24 14:00 41 L 18 01/30/24 12:00 41 L 152/66 01/30/24 11:41 01/30/24 08:45 96.4 F L 44 L 44 L 18 112/47 01/30/24 08:01 42 L 18 141/57 01/30/24 07:56 01/30/24 07:27 42 L 20 135/55 01/30/24 07:00 42 L 21 129/52 01/30/24 04:47 46 L 21 134/54 01/30/24 03:50 01/30/24 03:38 98.4 F 55 L 21 133/53 Pulse Ox FiO2 01/31/24 03:30 40 01/31/24 00:43 40 01/31/24 00:00 97 01/30/24 20:00 96 01/30/24 16:02 40 01/30/24 16:00 98 01/30/24 14:00 01/30/24 12:00 98 01/30/24 11:41 40 01/30/24 08:45 98 01/30/24 08:01 99 01/30/24 07:56 40 01/30/24 07:27 100 01/30/24 07:00 97 01/30/24 04:47 97 01/30/24 03:50 40 01/30/24 03:38 100 Intake and Output 01/30/24 01/30/24 01/31/24 14:59 22:59 06:59 Intake Total 230 Output Total 900 400 Balance -670 -400 Intake: Oral 230 Output: Urine 900 400 Other: Voiding Method External Catheter # Voids 1 Weight 142.882 kg GENERAL EXAM: Alert, 74-year-old morbidly obese white female, comfortable in no apparent distress. BiPAP on standby at bedside HEAD: Normocephalic and atraumatic EYES: Normal reaction of pupils, equal size. NOSE: Clear with pink turbinates. THROAT: No erythema or exudates. NECK: No masses, no JVD. CHEST: No chest wall deformity. LUNGS: Equal air entry with bibasilar inspiratory crackles. On 3 L/min nasal cannula. No conversational dyspnea or accessory muscle use.. CVS: S1 and S2 normal with soft systolic murmur, regular rhythm. No other extra heart sounds. Bradycardic, rate 44 bpm. ABDOMEN: No hepatosplenomegaly, active bowel sounds, no guarding or rigidity. SPINE: No scoliosis or deformity SKIN: No rashes CENTRAL NERVOUS SYSTEM: No focal deficits, tone is normal in all 4 extremities. EXTREMITIES: There bilateral 3+ pitting lower extremity edema. No clubbing, or cyanosis. Peripheral pulses are intact. Results - Laboratory Findings CBC and BMP: 01/31/24 07:07 01/31/24 13:14 PT/INR, D-dimer PT 12.5 sec (10.0-12.5) 01/30/24 03:50 INR 1.2 (<1.2) H 01/30/24 03:50 Abnormal lab findings: Abnormal Labs 01/30/24 01/30/24 01/30/24 03:50 03:50 03:50 RBC 2.75 L Hgb 7.5 L Hct 25.4 L MCHC 29.5 L RDW 17.7 H Plt Count 105 L Lymphocytes # 0.5 L INR 1.2 H Potassium 5.4 H BUN 75 H Creatinine 2.73 H Glucose 157 H POC Glucose (mg/dL) 01/30/24 01/30/24 01/30/24 11:30 16:31 20:16 RBC Hgb Hct MCHC RDW Plt Count Lymphocytes # INR Potassium BUN Creatinine Glucose POC Glucose (mg/dL) 161 H 150 H 182 H - Diagnostic Findings Chest x-ray: image reviewed Assessment and Plan Assessment: Acute on chronic hypoxemic respiratory failure, suspected secondary to exacerbation of heart failure with preserved ejection fraction, chest x-ray demonstrating cardiomegaly with moderate central vascular congestion. Patient has had increased lower extremity edema over the last week. NT proBNP 9500. Bradycardia, currently asymptomatic Chronic diastolic heart failure, most recent echocardiogram available from 12/17/2022 estimates a preserved left ventricular ejection fraction of 55%, moderate mitral regurgitation, severe pulmonary hypertension, and severe tricuspid regurgitation. History of valvular heart disease, as mentioned above Chronic hypoxemic respiratory failure, normally maintained on 3 L/min nasal cannula at home Obstructive sleep apnea, maintained on APAP machine with minimum pressure of 4 and maximum of 20 cm H2O History of GI bleed History of gastritis History of atrial fibrillation, not currently on any anticoagulation, secondary to above History of coronary artery disease with previous CABG History of hypertension History of hyperlipidemia Diabetes mellitus, insulin-dependent, complicated by diabetic neuropathy History of hypothyroidism Morbid obesity, with a BMI 57.6 kg/m Plan: Patient's medications, labs, imaging were reviewed Continue supplemental oxygen to maintain oxygen saturation of 90% or greater May utilize BiPAP at bedside at bedtime unless APAP machine can be made available Continue with diuresis in the form of Lasix 40 mg twice daily and Zaroxolyn Repeat echocardiogram, unless more recent studies are available Cardiology is following Would recommend holding antiarrhythmics, they could possibly potentiate b radycardia Check TSH/T4 Patient is being monitored on the telemetry unit. We will continue to follow I have personally seen and examined the patient, performed the documentation and the assessment and plan as written. Number of minutes spent on the visit:20 This is a joint evaluation is being done along with the nurse practitioner. This evaluation was done more than 30 minutes. . The patient is reporting improvement in his shortness of breath. No chest pain. The patient is known to have coronary disease with previous bypass surgery. The patient also suffers from chronic kidney disease, diabetes mellitus type 2, hyperlipidemia, chronic atrial fibrillation and severe pulmonary hypertension and the patient has had previous episodes of recurrent GI bleeding. The patient presented to us with worsening shortness of breath and the patient was on a BiPAP and she was subsequently taken off the BiPAP and currently is on 3 L of oxygen by nasal cannula. Fluid balance is -1.1 L over the past 24 hours. She is now having any specific complaints. The blood work from today shows a BUN of 74 with a creatinine of 2.32 and the creatinine is improved compared to yesterday. Potassium is at 5.6 with a sodium level of 141. WBC count 3.7 and a hemoglobin of 7.1. proBNP level was quite elevated at the time of admission and the chest x-ray was consistent with CHF. The patient is also having some episodic asymptomatic bradycardia especially when she sleeps. Cardiology on the case. The patient was given Lasix 40 mg IV in the emergency department. No further diuretics for now. The patient is producing adequate urine output and the fluid balance has been negative. Will continue Lasix 40 mg IV on a daily basis. Repeat echocardiogram. Establish LV function. Cardiology regarding the episodes of bradycardiaAnd the thyroid function has been essentially showing elevated TSH and the patient's Synthroid is currently at 75 mcg/kg/min. Free T4 is at 0.9, consider increasing the Synthroid replacement dose and this will be discussed with the medical group. Continue using BiPAP overnight and the patient has been maintained on APAP on outpatient basis. Time with Patient: Greater than 30
[2024-01-31 06:18] LABS: Glucose,Whole Blood 134 mg/dL (70-110)
[2024-01-31] MEDS: metOLazone 2.5 MG TAB PO SCH (08:24)
[2024-01-31 11:00] VITALS: BMI 58.6
[2024-01-31 11:17] LABS: Glucose,Whole Blood 148 mg/dL (70-110)
[2024-01-31 11:30] LABS: Anisocytosis Slight; Basophils % (A) 1 %; Eosinophils # (A) 0.1 k/uL (0-0.7); Eosinophils % (A) 3 %; HCT 24.5 % (34.0-46.0); HGB 7.1 gm/dL (11.4-16.0); Hypochromasia Marked; Lymphocytes # (A) 0.5 k/uL (1.0-4.8); Lymphocytes % (A) 12 %; MCH 27.3 pg (25.0-35.0); MCHC 28.9 g/dL (31.0-37.0); MCV 94.5 fL (80.0-100.0); Monocytes # (A) 0.2 k/uL (0-1.0); Monocytes % (A) 6 %; Neutrophils # (A) 2.9 k/uL (1.3-7.7); Neutrophils % (A) 77 %; Platelet Count 103 k/uL (150-450); RBC 2.59 m/uL (3.80-5.40); RDW 17.7 % (11.5-15.5); WBC 3.7 k/uL (3.8-10.6)
--- NOTE | 2024-01-31 11:48 | CA ---
Transthoracic Echo Report Name: Faith Tapia Age: 74 Gender: F : 1950 Exam Date: 01/31/2024 09:47 Exam Location: [place] [facility] Ht (in): 62 Wt (lb): 315 Ordering Physician: Shaji Hawkins Attending/Referring Phys: Tape Recording Machine Operator Deya Asencio RDCS Procedure CPT: Indications: evaluate LV function Cardiac Hx: CABG Technical Quality: Technically difficult study Contrast 1: Definity Total Dose (mL): 2 Contrast 2: Total Dose (mL): MEASUREMENTS (Male / Female) Normal Values 2D ECHO LV Diastolic Diameter PLAX 5.5 cm 4.2 - 5.9 / 3.9 - 5.3 cm LV Systolic Diameter PLAX 4.1 cm IVS Diastolic Thickness 1.2 cm 0.6 - 1.0 / 0.6 - 0.9 cm LVPW Diastolic Thickness 1.2 cm 0.6 - 1.0 / 0.6 - 0.9 cm LV Relative Wall Thickness 0.4 RV Internal Dim ED PLAX 3.1 cm LVOT Diameter 2.0 cm LA Systolic Diameter LX 5.2 cm 3.0 - 4.0 / 2.7 - 3.8 cm LA Volume 90.9 cm??? 18 - 58 / 22 - 52 cm??? LA Volume Index 35.0 cm???/m??? 16 - 28 cm???/m??? M-MODE Aortic Root Diameter MM 3.2 cm LA Systolic Diameter MM 5.2 cm LA Ao Ratio MM 1.6 AV Cusp Separation MM 1.3 cm DOPPLER AV Peak Velocity 313.1 cm/s AV Peak Gradient 39.2 mmHg AV Mean Velocity 248.1 cm/s AV Mean Gradient 26.7 mmHg AV Velocity Time Integral 92.2 cm AI Peak Velocity 278.0 cm/s AI Peak Gradient 30.9 mmHg AI Pressure Half Time 874.9 ms MV Peak Velocity 208.7 cm/s MV Peak Gradient 17.4 mmHg MV Mean Velocity 101.8 cm/s MV Mean Gradient 5.2 mmHg MV Velocity Time Integral 74.2 cm MV Area PHT 2.6 cm??? Mitral E Point Velocity 149.9 cm/s Mitral A Point Velocity 91.8 cm/s Mitral E to A Ratio 1.6 MV Deceleration Time 294.3 ms TR Peak Velocity 399.7 cm/s TR Peak Gradient 63.9 mmHg FINDINGS Left Ventricle Left ventricular ejection fraction is estimated at 55-60 %. No obvious regional wall motion abnormalities.Mildly increased left ventricular wall thickness. Right Ventricle Severe right ventricular dilatation. Severe pulmonary hypertension. Right Atrium Severe right atrial dilatation. Left Atrium Severely increased left atrial diameter. Moderately increased left atrial volume. Mildly increased left atrial area. Mitral Valve Moderate mitral stenosis. Mean gradient 5.2 mmHg. moderate mitral annular calcification. Mild to moderate mitral regurgitation. Aortic Valve Moderate aortic stenosis with a peak gradient of 39 mmHg and a mean gradient of 26mmHg. Mild aortic regurgitation. Tricuspid Valve Structurally normal tricuspid valve. Severe tricuspid regurgitation. Pulmonic Valve Structurally normal pulmonic valve. Mild pulmonic regurgitation. Pericardium No pericardial or pleural effusion. Aorta Normal size aortic root and proximal ascending aorta. CONCLUSIONS Technically difficult study. Definity ECHO contrast used for improved visualization of the endocardial borders (inadequate visualization of two or more contiguous segments). Normal left ventricle size and systolic function Severe tricuspid regurgitation and severe pulmonary hypertension Mild to moderate mitral regurgitation with mild to moderate mitral stenosis Moderate aortic stenosis with mild aortic regurgitation Previewed by: Dr. Marilu Martinez MD (Electronically Signed) Final Date: 31 January 2024 11:48
[2024-01-31] MEDS: APIXABAN 2.5 MG TABLET PO SCH (12:36)
--- NOTE | 2024-01-31 12:36 | P.PN ---
Subjective Progress Note Date: 01/31/24 Consult reason: congestive heart failure, shortness of breath Chief complaint: sob History of present illness: History of present illness: Patient is a pleasant 74-year-old female with significant past medical history of CAD with prior CABG, CKD, severe pulmonary hypertension, diabetes, hyperlipidemia, a-fib, and history of recurrent GI bleed who presents with worsening shortness of breath. She does follow in the office with Dr. Weller. Reports that she has been having worsening shortness of breath. She is currently on BiPAP. She denies having any chest pain or pressure. Chest x-ray shows mildmoderate central vascular congestion. EKG shows sinus bradycardia 51 bpm, right bundle branch block. Telemetry does show heart rates in the 30s40s. Labs reviewed: Hemoglobin 7.5, potassium 5.4, creatinine 2.3, troponin negative x 1, BNP 9500. She does report that her shortness of breath is slightly better at this morning on BiPAP. 01/30 Patient is seen today in follow-up. She has been maintained on IV Lasix 40 mg every 12 hours. There is a concern that patient had heart rate in the 20s and 30s during the night, upon review mostly in the 30s, prolonged QT right bundle branch block. Patient states that she feels like she is getting a cold. She complains of phlegm production. She denies any increased coughing. Patient states that her breathing has been improved since she arrived to the hospital. Patient apparently has been off anticoagulation for some time due to requirement of multiple transfusions. PHYSICAL EXAMINATION: This is a 74-year-old female in no apparent distress at the time of my examination. HEENT: Head is atraumatic, normocephalic. Pupils are equal, round. Sclerae anicteric. Conjunctivae are clear. Mucous membranes of the mouth are moist. Neck is supple. There is no jugular venous distention. No carotid bruit is heard. CHEST EXAMINATION: Lungs are diminished throughout. No chest wall tenderness is noted on palpation or with deep breathing. HEART EXAMINATION: Heart regular rate and rhythm. S1, S2 heard. Systolic murmurs, gallops or rub. ABDOMEN: Soft, nontender. Bowel sounds are heard. obese. EXTREMITIES: 2+ peripheral pulses with 1+ peripheral edema and no calf tenderness noted. NEUROLOGIC EXAMINATION: Patient is awake, alert and oriented x3. IMPRESSION AND PLAN: CAD status post CABG in 1996 History of GI bleed Severe pulmonary hypertension Valvular heart disease including moderate MR, severe TR, mild Congestive heart failure with preserved EF, acute on chronic Chronic kidney disease Hypertension Hyperlipidemia Diabetes Shortness of breath Dismal atrial fibrillation currently in sinus bradycardia Bradycardia Chronic hypoxic respiratory failure on home O2 Obstructive sleep apnea on CPAP PLAN: Discontinue the following medications: Oral amiodarone, Toprol XL due to bradycardia Discontinue IV Lasix, metolazone Continue telemetry monitoring Monitor CESAR, daily weights, electrolytes and renal function Obtain iron studies 1 dose of Ferrlecit We will follow. Nurse practitioner note has been reviewed, I agree with documented findings and plan of care. Patient was seen and examined. Objective - Vital Signs Vital signs: Vital Signs Temp 98.0 F 01/31/24 08:16 Pulse 49 L 01/31/24 08:16 Resp 18 01/31/24 08:16 BP 115/35 01/31/24 08:16 Pulse Ox 93 L 01/31/24 08:16 FiO2 40 01/31/24 03:30 Intake & Output 01/30/24 01/31/24 01/31/24 18:59 06:59 18:59 Intake Total 230 Output Total 300 1700 Balance -70 -1700 Weight 142.882 kg 145.3 kg Intake: Oral 230 Output: Urine 300 1700 Other: Voiding Method External Catheter # Voids 1 - Labs CBC & Chem 7: 01/31/24 07:07 01/30/24 03:50 Labs: Abnormal Lab Results - Last 24 Hours (Table) 01/30/24 01/30/24 01/30/24 Range/Units 11:30 16:31 20:16 POC Glucose (mg/dL) 161 H 150 H 182 H (70-110) mg/dL TSH (0.465-4.680) mIU/L 01/31/24 01/31/24 Range/Units 06:16 07:07 POC Glucose (mg/dL) 134 H (70-110) mg/dL TSH 16.200 H (0.465-4.680) mIU/L
[2024-01-31] MEDS: SODIUM FERRIC GLUCONAT-SUCROSE 125 MG in SODIUM CHLORIDE 0.9% 100 ML IVPB ONE (13:19)
[2024-01-31 13:43] LABS: African American GFR (CKD) 23 (>60 ml/min/1.73 sqM); Anion Gap 4 mmol/L; Blood Urea Nitrogen 74 mg/dL (7-17); Calcium 8.7 mg/dL (8.4-10.2); Carbon Dioxide 32 mmol/L (22-30); Chloride 105 mmol/L (98-107); Glucose 169 mg/dL (74-99); Non-African American GFR(CKD) 20 (>60 ml/min/1.73 sqM); Potassium 5.6 mmol/L (3.5-5.1); Sodium 141 mmol/L (137-145)
[2024-01-31] MEDS ORDERED: DEXTROSE 50% SYRINGE 50 ML IVP PRN ×2 (15:03)
[2024-01-31 15:37] LABS: % Iron Saturation 6.03 (12.00-45.00)
--- NOTE | 2024-01-31 15:40 | P.PN ---
Subjective Progress Note Date: 01/31/24 H&P Date: 01/30/24 Chief Complaint: dyspnea, exertional dyspnea patient states it's been quite humid and she had been using her air conditioning sparingly and she her breathing became compromised 01/31/2024 bradycardic, prolonged QT with right bundle branch block. Diuretics, antiarrhythmics discontinued as per cardiology today. Maintained on BiPAP last night. Reports she is unable to take oral anticoagulation, taken off of her Eliquis, due to symptomatic GI bleeds requiring multiple packed RBC transfusions as per PCP. Denies chest pain, palpitations or shortness of breath. Complains of stuffy nose, no increased cough denies lightheadedness, dizziness or focal deficits. TSH 16.2, free T4 normal, attributed to being on the oral amiodarone; levothyroxine increased as per PCP. Objective - Vital Signs Vital signs: Vital Signs Temp 98.0 F 01/31/24 08:16 Pulse 56 L 01/31/24 14:00 Resp 18 01/31/24 14:00 BP 120/57 01/31/24 11:41 Pulse Ox 94 L 01/31/24 11:41 FiO2 40 01/31/24 03:30 Intake & Output 01/30/24 01/31/24 01/31/24 18:59 06:59 18:59 Intake Total 230 540 Output Total 300 1700 900 Balance -70 -1700 -360 Weight 142.882 kg 145.3 kg 145.3 kg Intake: Oral 230 540 Output: Urine 300 1700 900 Other: Voiding Method External Catheter External Catheter # Voids 1 - Exam General: [morbidly obese, pleasant, sitting up in bed, no acute distress. HEENT: [PERRL. EOMI. No pharyngeal erythema or exudate.] Neck: Supple, no JVD Cardiac: [Heart regular rhythm, bradycardic, no S3. No S4. No clicks, rubs. Systolic murmur. midline surgical scar secondary to prior coronary artery bypass grafting Lungs: Unlabored, equal air entry, coarse ,diminished breath sounds bilaterally Abdomen: [Soft, obese, nontender no mass appreciated, positive bowel sounds Extremes: [Bilateral lower extremity 1+ edema, no calf tenderness, positive DP pulses.] Skin: [Warm and dry no rash.] Neurologic: [ CN II - XII grossly intact.] - Labs CBC & Chem 7: 01/31/24 07:07 01/31/24 13:14 Labs: Abnormal Lab Results - Last 24 Hours (Table) 01/30/24 01/30/24 01/31/24 Range/Units 16:31 20:16 06:16 WBC (3.8-10.6) k/uL RBC (3.80-5.40) m/uL Hgb (11.4-16.0) gm/dL Hct (34.0-46.0) % MCHC (31.0-37.0) g/dL RDW (11.5-15.5) % Plt Count (150-450) k/uL Lymphocytes # (1.0-4.8) k/uL Potassium (3.5-5.1) mmol/L Carbon Dioxide (22-30) mmol/L BUN (7-17) mg/dL Creatinine (0.52-1.04) mg/dL Glucose (74-99) mg/dL POC Glucose (mg/dL) 150 H 182 H 134 H (70-110) mg/dL TSH (0.465-4.680) mIU/L 01/31/24 01/31/24 01/31/24 Range/Units 07:07 07:07 11:16 WBC 3.7 L (3.8-10.6) k/uL RBC 2.59 L (3.80-5.40) m/uL Hgb 7.1 L (11.4-16.0) gm/dL Hct 24.5 L (34.0-46.0) % MCHC 28.9 L (31.0-37.0) g/dL RDW 17.7 H (11.5-15.5) % Plt Count 103 L (150-450) k/uL Lymphocytes # 0.5 L (1.0-4.8) k/uL Potassium (3.5-5.1) mmol/L Carbon Dioxide (22-30) mmol/L BUN (7-17) mg/dL Creatinine (0.52-1.04) mg/dL Glucose (74-99) mg/dL POC Glucose (mg/dL) 148 H (70-110) mg/dL TSH 16.200 H (0.465-4.680) mIU/L 01/31/24 Range/Units 13:14 WBC (3.8-10.6) k/uL RBC (3.80-5.40) m/uL Hgb (11.4-16.0) gm/dL Hct (34.0-46.0) % MCHC (31.0-37.0) g/dL RDW (11.5-15.5) % Plt Count (150-450) k/uL Lymphocytes # (1.0-4.8) k/uL Potassium 5.6 H (3.5-5.1) mmol/L Carbon Dioxide 32 H (22-30) mmol/L BUN 74 H (7-17) mg/dL Creatinine 2.32 H (0.52-1.04) mg/dL Glucose 169 H (74-99) mg/dL POC Glucose (mg/dL) (70-110) mg/dL TSH (0.465-4.680) mIU/L Assessment and Plan Assessment: Acute on chronic diastolic CHF Acute on chronic renal failure, stage III Chronic anemia, iron deficient, not on oral anticoagulation secondary to history of acute GI bleed. Chronic hypoxic, hypercapnic respiratory failure, wears 3 L nasal cannula at home History of COVID x 3, chronic fibrotic changes secondary to the COVID infection. Chronic obstructive sleep apnea, hypercapnic, requiring BiPAP Moderate to severe pulmonary hypertension Mild aortic stenosis Severe tricuspid regurgitation Chronic kidney disease,III History of UTI with Klebsiella pneumoniae, ESBL History of Chronic Bilateral lower extremity cellulitis Chronic persistent atrial fibrillation, anticoagulated on Eliquis-currently on hold CAD, history of CABG Hypertension hyperlipidemia Diabetes mellitus, last hemoglobin A1c 6.9, Diabetic neuropathy Hypothyroidism Depression, history of History of bariatric surgery Morbid obesity, BMI 59 Plan: Continue on current medication regimen ,monitoring and symptomatic treatment. 1 unit packed RBCs ordered for symptomatic anemia as per PCP for hemoglobin of 7.1. BMP ordered. Neurology consulted. Antiarrhythmics, diuretics discontinued as per cardiology today. Nephrology consult. Close monitoring of coags, electrolytes and renal function with repeat labs ordered for a.m. PT/OT. The impression and plan of care has been dictated as directed. : I performed a history and examination of this patient, discussed the same with the dictator. I agree with the dictator's note ,documented as a scribe. Any additional findings or plans will be noted.
[2024-01-31 16:22] LABS: Glucose,Whole Blood 188 mg/dL (70-110)
[2024-01-31] MEDS: INSULIN ASPART (NovoLOG) 100 UNIT/ML VIAL SQ SCH (16:50)
[2024-01-31 21:14] LABS: Glucose,Whole Blood 223 mg/dL (70-110)
[2024-01-31] MEDS: FUROSEMIDE 10 MG/ML 4 ML VIAL IV SCH (21:43)
[2024-02-01 05:54] LABS: Glucose,Whole Blood 126 mg/dL (70-110)
[2024-02-01] MEDS: LEVOTHYROXINE 75 MCG TAB PO SCH (06:30)
[2024-02-01 06:41] LABS: Anisocytosis Slight; Basophils % (A) 1 %; Eosinophils # (A) 0.1 k/uL (0-0.7); Eosinophils % (A) 3 %; HCT 25.5 % (34.0-46.0); HGB 7.5 gm/dL (11.4-16.0); Hypochromasia Marked; Lymphocytes # (A) 0.5 k/uL (1.0-4.8); Lymphocytes % (A) 13 %; MCH 27.6 pg (25.0-35.0); MCHC 29.4 g/dL (31.0-37.0); Mean Platelet Volume 9.4; Monocytes # (A) 0.2 k/uL (0-1.0); Monocytes % (A) 6 %; Neutrophils # (A) 2.9 k/uL (1.3-7.7); Neutrophils % (A) 76 %; Platelet Count 107 k/uL (150-450); RBC 2.72 m/uL (3.80-5.40); RDW 17.3 % (11.5-15.5); WBC 3.8 k/uL (3.8-10.6)
[2024-02-01 06:46] LABS: African American GFR (CKD) 23 (>60 ml/min/1.73 sqM); Anion Gap 0 mmol/L; Blood Urea Nitrogen 69 mg/dL (7-17); Calcium 8.5 mg/dL (8.4-10.2); Carbon Dioxide 37 mmol/L (22-30); Chloride 105 mmol/L (98-107); Glucose 101 mg/dL (74-99); Non-African American GFR(CKD) 20 (>60 ml/min/1.73 sqM); Potassium 5.5 mmol/L (3.5-5.1); Sodium 142 mmol/L (137-145)
[2024-02-01] MEDS: SODIUM ZIRCONIUM CYCLOSILICATE 10 GM PACKET PO ONE (08:30)
--- NOTE | 2024-02-01 10:22 | P.NPCON ---
History of Present Illness - Reason for Consult acute renal failure, chronic renal failure - History of Present Illness Reason for consultation: Acute kidney injury on chronic kidney disease History of present illness: Patient is a 74-year-old female seen in renal consultation for acute kidney injury on chronic kidney disease. Patient has chronic kidney disease stage IIIb with baseline creatinine near 1.5-1.6 from September and October 2023. Creatinine this admission was 2.73 and is now stable near 2.35. Patient came to the hospital due to worsening shortness of breath going on for about 1 week. She is currently maintained on IV Lasix. Patient has history of diastolic CHF and moderate aortic stenosis, moderate mitral regurgitation and severe tricuspid regurgitation with pulmonary hypertension. She denies use of nonsteroidals. Patient states her brother was on hemodialysis just prior to when he was . Patient does have long-term history of diabetes. Also has history of coronary disease status post CABG. Denies gross hematuria or dysuria. Currently on nasal cannula. Hemodynamically stable. Nonoliguric. Vital signs are stable. General: No acute distress. HEENT: Head exam is unremarkable. On nasal cannula. LUNGS: No audible rhonchi or wheezes. HEART: Rate and Rhythm are regular. ABDOMEN: Nontender. Obese. EXTREMITITES: 1+ edema. Past Medical History Past Medical History: Atrial Fibrillation, Coronary Artery Disease (CAD), COPD, Diabetes Mellitus, Eye Disorder, Hyperlipidemia, Hypertension, Osteoarthritis (OA), Pneumonia, Renal Disease, Sleep Apnea/CPAP/BIPAP, Thyroid Disorder Additional Past Medical History / Comment(s): Pt recently admitted to [facility] on 05/08/22 with anemia/had EGD and colonoscopy which showed nonbleeding stomach ulcer/diverticular disease and colon polyp, pt received blood transfusions. Other hx: 02/12/22 covid/pneumonia/sepsis, other past pneumonias, acute hypoxic respiratory failure/now on home oxygen ATC, new A fib with RVR, IDDM type II, neuropathy bilateral feet, L eye retinal bleed/lasik eye surgery, R eye cataract, bilateral eye macular degeneration/gets injections/poor vision, CKD stage III, anemia, UTI/sepsis, bilateral leg lymphedema, FLORES/does not have cpap machine at this time, diverticulitis, gout, chronic back pain, rheumatic fever, hypothyroid. History of Any Multi-Drug Resistant Organisms: ESBL Date of last positivie culture/infection: 05/22/22 ESBL Klebsiella MDRO Source:: Urine Past Surgical History: Bariatric Surgery, Section, Cholecystectomy, Coronary Bypass/CABG, Heart Catheterization, Hysterectomy, Orthopedic Surgery, Tonsillectomy Additional Past Surgical History / Comment(s): EGD, colonoscopy, 2 vessel CABG in 1996, bilateral carpal tunnel release, lap band, L eye laser surgery, Past Anesthesia/Blood Transfusion Reactions: No Reported Reaction Past Psychological History: Depression Smoking Status: Never smoker Past Alcohol Use History: None Reported Past Drug Use History: None Reported - Past Family History Father History Unknown: Yes Family Medical History: Cancer, Coronary Artery Disease (CAD), Diabetes Mellitus Additional Family Medical History / Comment(s): Prostate cancer Mother History Unknown: Yes Family Medical History: Cancer Additional Family Medical History / Comment(s): Bone cancer. Medications and Allergies Home Medications Medication Instructions Recorded Confirmed Type Atorvastatin [Lipitor] 40 mg PO HS 08/10/16 01/30/24 History Isosorbide Mononitrate [Isosorbide 30 mg PO DAILY 08/10/16 01/30/24 History Mononitrate ER] Oxybutynin Chloride 5 mg PO DAILY 08/10/16 01/30/24 History Mirtazapine [Remeron] 15 mg PO HS 04/12/22 01/30/24 History Acetaminophen Tab [Tylenol] 650 mg PO Q6H PRN 05/08/22 01/30/24 History Amiodarone [Cordarone] 200 mg PO DAILY 12/17/22 01/30/24 History Levothyroxine Sodium [Synthroid] 50 mcg PO DAILY 12/17/22 01/30/24 History Potassium Chloride [Potassium 20 meq PO DAILY 12/17/22 01/30/24 History Chloride ER (K-Dur GEQ)] Sertraline [Zoloft] 100 mg PO BID 12/17/22 01/30/24 History Furosemide [Lasix] 40 mg PO BID@0900,1600 #180 tab 12/20/22 01/30/24 Rx Metoprolol Succinate (ER) [Toprol 25 mg PO DAILY #90 tab 12/20/22 01/30/24 Rx XL] metOLazone 2.5 mg PO MOFR 09/20/23 01/30/24 History Gabapentin [Neurontin] 300 mg PO BID #6 cap 09/24/23 01/30/24 Rx HYDROcodone/APAP 10-325MG [Broadus 1 tab PO Q8H PRN #9 tab 09/24/23 01/30/24 Rx 10-325] Apixaban [Eliquis] 2.5 mg PO BID 01/30/24 01/30/24 History INSULIN ASPART (NovoLOG) [NovoLOG 20 unit SQ BID 01/30/24 01/30/24 History (formulary)] Insulin Glargine,Hum.rec.anlog 14 units SQ BID 01/30/24 01/30/24 History [Toujeo Solostar] Pantoprazole [Protonix] 40 mg PO DAILY 01/30/24 01/30/24 History Allergies Allergy/AdvReac Type Severity Reaction Status Date / Time ibuprofen [From Motrin] Allergy Rash/Hives Verified 01/30/24 14:23 Penicillins Allergy Anaphylaxis Verified 01/30/24 14:23 Physical Exam Vitals: Vital Signs Temp Pulse Pulse Resp BP BP Pulse Ox 02/01/24 08:30 98 F 54 L 18 169/55 95 02/01/24 04:03 02/01/24 04:00 97.9 F 48 L 19 131/63 99 02/01/24 00:00 97.9 F 56 L 18 143/67 91 L 01/31/24 21:54 98.3 F 52 L 18 162/77 93 L 01/31/24 20:53 98.2 F 18 L 18 154/66 92 L 01/31/24 20:33 98.2 F 54 L 18 160/70 92 L 01/31/24 20:23 98.5 F 53 L 18 150/65 91 L 01/31/24 20:00 98.5 F 53 L 18 150/65 95 01/31/24 15:29 98.4 F 52 L 18 116/59 91 L 01/31/24 14:00 56 L 18 01/31/24 11:41 56 L 18 120/57 94 L FiO2 02/01/24 08:30 02/01/24 04:03 40 02/01/24 04:00 40 02/01/24 00:00 01/31/24 21:54 01/31/24 20:53 01/31/24 20:33 01/31/24 20:23 01/31/24 20:00 07/01/24 15:29 01/31/24 14:00 01/31/24 11:41 Intake and Output 01/31/24 02/01/24 02/01/24 22:59 06:59 14:59 Intake Total 636 0 Output Total 500 800 Balance 136 -800 0 Intake: Oral 360 0 Blood Product 276 Rc Pheresis 2 As3 Unit 276 [id number] Output: Urine 500 800 Other: Voiding Method External Catheter External Catheter External Catheter Weight 132.5 kg Results - Lab Results Most recent lab results Calcium 8.5 mg/dL (8.4-10.2) 02/01/24 06:17 02/01/24 06:17 02/01/24 06:17 Assessment and Plan Plan: Assessment: 1. Acute kidney injury secondary to ATN secondary to cardiorenal syndrome. Creatinine 2.35 today. 2. Chronic kidney disease stage IIIb with baseline creatinine 1.5-1.6 secondary to nephrosclerosis and cardiorenal syndrome. 3. Acute on chronic diastolic CHF with moderate aortic stenosis, moderate mitral regurgitation, severe tricuspid regurgitation and pulmonary hypertension. 4. Volume overload. 5. Hyperkalemia secondary to chronic kidney disease and potassium supplementation. 6. Diabetes mellitus. 7. Coronary artery disease status post CABG. 8. Anemia. Iron deficiency noted. Plan: Maintain IV Lasix. Low-salt diet and 1500 cc fluid restriction. Add IV iron. Check renal ultrasound. Status post Lokelma given this morning. Repeat potassium level at noon. Thank you for the consultation. I will continue to follow the patient with you during her hospital stay.
[2024-02-01 11:46] LABS: Glucose,Whole Blood 87 mg/dL (70-110)
--- NOTE | 2024-02-01 13:25 | P.PN ---
Subjective Progress Note Date: 02/01/24 Patient is a 74-year-old white female with past medical history significant for coronary artery disease with previous CABG, atrial fibrillation, hyperlipidemia, hypertension, hypothyroidism, diabetes mellitus, CKD stage III, obstructive sleep apnea with home CPAP, chronic hypoxemic respiratory failure, among other things. Patient's primary care provider is Dr. Cruz. Also follows in the pulmonary office with Dr. Lainez for management of her obstructive sleep apnea, maintained on APAP machine pressures of 4/20 cm of water. Patient presented to the emergency room yesterday morning and some respiratory distress. She was noted to be hypoxic. Initially placed on BiPAP with settings of 12/5 and FiO2 of 40%. Patient states that her shortness of breath has progressively been worsening over the last week. This is associated with increased lower extremity swelling. She states that she has been taking her Lasix as ordered, twice a day, but has not been peeing as much is normal. Denies any other urinary symptoms. Denies any chest pain. She denies any infectious-like symptoms such as fever, cough, sputum production. Chest x-ray done on arrival cardiomegaly with mild to moderate central vascular congestion. Suspect CHF exacerbation/fluid overload. NT proBNP is 9500. She is bradycardic. EKG demonstrating sinus bradycardia with RBBB pattern. Blood pressure is normotensive. CBC: WBC count 4.7, hemoglobin 7.5, hematocrit 25.4, platelets 105. CMP: Sodium 141, potassium 5.4, chloride 105, serum bicarb 29, BUN 75, creatinine 2.73, glucose 157. Lactic 1.4. LFTs not elevated. Troponin less than 0.012. She is currently being monitored on the cardiac unit. 02/01/2024, I am seeing the patient for a follow-up. Patient is doing well as the patient is being diuresed with IV Lasix 40 mg every 24 hours. Producing adequate urine output and the patient's fluid balance is negative and there is improvement in lower extremity edema. Lasix dose was switched from twice a day to once a day. BUN is 69 with a creatinine of 2.35 and a potassium level of 4.9 discussed 3.8 with a hemoglobin of 7.5. Remains on oxygen at 3 L with a pulse ox of 94%. No other complaints otherwise for now. Clinically and hemodynamically stable. Echocardiogram was repeated on 01/31/2024 and showed pres erved LV function with an EF of 55 to 60%. Severe RV dilatation and severe pulmonary hypertension and moderate to severe tricuspid regurgitation and severe pulm hypertension. Patient also has moderate aortic stenosis with mild aortic regurgitation. Objective - Vital Signs Vital signs: Vital Signs Temp 98 F 02/01/24 08:30 Pulse 54 L 02/01/24 08:30 Resp 18 02/01/24 08:30 BP 169/55 02/01/24 08:30 Pulse Ox 95 02/01/24 08:30 FiO2 40 02/01/24 04:03 Intake & Output 01/31/24 02/01/24 02/01/24 18:59 06:59 18:59 Intake Total 1140 276 0 Output Total 900 1300 Balance 240 -1024 0 Weight 145.3 kg 132.5 kg Intake: Oral 1140 0 Blood Product 276 Rc Pheresis 2 As3 Unit 276 [id number] Output: Urine 900 1300 Other: Voiding Method External Catheter External Catheter External Catheter - Exam GENERAL EXAM: Alert, 74-year-old morbidly obese white female, comfortable in no apparent distress. BiPAP on standby at bedside HEAD: Normocephalic and atraumatic EYES: Normal reaction of pupils, equal size. NOSE: Clear with pink turbinates. THROAT: No erythema or exudates. NECK: No masses, no JVD. CHEST: No chest wall deformity. LUNGS: Equal air entry with bibasilar inspiratory crackles. On 3 L/min nasal ca nnula. No conversational dyspnea or accessory muscle use.. CVS: S1 and S2 normal with soft systolic murmur, regular rhythm. No other extra heart sounds. Bradycardic, rate 44 bpm. ABDOMEN: No hepatosplenomegaly, active bowel sounds, no guarding or rigidity. SPINE: No scoliosis or deformity SKIN: No rashes CENTRAL NERVOUS SYSTEM: No focal deficits, tone is normal in all 4 extremities. EXTREMITIES: There bilateral 3+ pitting lower extremity edema. No clubbing, or cyanosis. Peripheral pulses are intact. - Labs CBC & Chem 7: 02/01/24 06:17 02/01/24 12:20 Labs: Abnormal Lab Results - Last 24 Hours (Table) 01/30/24 01/31/24 01/31/24 Range/Units 03:50 07:07 11:16 WBC 3.7 L (3.8-10.6) k/uL RBC 2.59 L (3.80-5.40) m/uL Hgb 7.1 L (11.4-16.0) gm/dL Hct 24.5 L (34.0-46.0) % MCHC 28.9 L (31.0-37.0) g/dL RDW 17.7 H (11.5-15.5) % Plt Count 103 L (150-450) k/uL Lymphocytes # 0.5 L (1.0-4.8) k/uL Potassium (3.5-5.1) mmol/L Carbon Dioxide (22-30) mmol/L BUN (7-17) mg/dL Creatinine (0.52-1.04) mg/dL Glucose (74-99) mg/dL POC Glucose (mg/dL) 148 H (70-110) mg/dL Hemoglobin A1c (<=6.0) % Iron 24 L (50-170) UG/DL % Saturation 6.03 L (12.00-45.00) Crossmatch 01/31/24 01/31/24 01/31/24 Range/Units 13:14 13:14 16:20 WBC (3.8-10.6) k/uL RBC (3.80-5.40) m/uL Hgb (11.4-16.0) gm/dL Hct (34.0-46.0) % MCHC (31.0-37.0) g/dL RDW (11.5-15.5) % Plt Count (150-450) k/uL Lymphocytes # (1.0-4.8) k/uL Potassium 5.6 H (3.5-5.1) mmol/L Carbon Dioxide 32 H (22-30) mmol/L BUN 74 H (7-17) mg/dL Creatinine 2.32 H (0.52-1.04) mg/dL Glucose 169 H (74-99) mg/dL POC Glucose (mg/dL) 188 H (70-110) mg/dL Hemoglobin A1c (<=6.0) % Iron (50-170) UG/DL % Saturation (12.00-45.00) Crossmatch See Detail 01/31/24 02/01/24 02/01/24 Range/Units 21:13 05:52 06:17 WBC (3.8-10.6) k/uL RBC (3.80-5.40) m/uL Hgb (11.4-16.0) gm/dL Hct (34.0-46.0) % MCHC (31.0-37.0) g/dL RDW (11.5-15.5) % Plt Count (150-450) k/uL Lymphocytes # (1.0-4.8) k/uL Potassium (3.5-5.1) mmol/L Carbon Dioxide (22-30) mmol/L BUN (7-17) mg/dL Creatinine (0.52-1.04) mg/dL Glucose (74-99) mg/dL POC Glucose (mg/dL) 223 H 126 H (70-110) mg/dL Hemoglobin A1c 6.2 H (<=6.0) % Iron (50-170) UG/DL % Saturation (12.00-45.00) Crossmatch 02/01/24 02/01/24 Range/Units 06:17 06:17 WBC (3.8-10.6) k/uL RBC 2.72 L (3.80-5.40) m/uL Hgb 7.5 L (11.4-16.0) gm/dL Hct 25.5 L (34.0-46.0) % MCHC 29.4 L (31.0-37.0) g/dL RDW 17.3 H (11.5-15.5) % Plt Count 107 L (150-450) k/uL Lymphocytes # 0.5 L (1.0-4.8) k/uL Potassium 5.5 H (3.5-5.1) mmol/L Carbon Dioxide 37 H (22-30) mmol/L BUN 69 H (7-17) mg/dL Creatinine 2.35 H (0.52-1.04) mg/dL Glucose 101 H (74-99) mg/dL POC Glucose (mg/dL) (70-110) mg/dL Hemoglobin A1c (<=6.0) % Iron (50-170) UG/DL % Saturation (12.00-45.00) Crossmatch Assessment and Plan Assessment: Acute on chronic hypoxemic respiratory failure, suspected secondary to exacerbation of heart failure with preserved ejection fraction, chest x-ray demonstrating cardiomegaly with moderate central vascular congestion. Patient has had increased lower extremity edema over the last week. NT proBNP 9500. The patient is currently stable on 2 L of oxygen nasal cannula the patient producing excellent urine outputthe patient is being 40 mg every 12 hours. Fluid balance is negative. Bradycardia, currently asymptomatic Chronic diastolic heart failure, most recent echocardiogram available from 12/17/2022 estimates a preserved left ventricular ejection fraction of 55%, moderate mitral regurgitation, severe pulmonary hypertension, and severe tricuspid regurgitation. History of valvular heart disease, as mentioned above Chronic hypoxemic respiratory failure, normally maintained on 3 L/min nasal cannula at home Obstructive sleep apnea, maintained on APAP machine with minimum pressure of 4 and maximum of 20 cm H2O History of GI bleed History of gastritis History of atrial fibrillation, not currently on any anticoagulation, secondary to above History of coronary artery disease with previous CABG History of hypertension History of hyperlipidemia Diabetes mellitus, insulin-dependent, complicated by diabetic neuropathy History of hypothyroidism Morbid obesity, with a BMI 57.6 kg/m Plan: Continue Lasix and change to dose of 40 mg per 24 hours. Excellent urine output. Continue supplemental oxygen to maintain oxygen saturation of 90% or greater Echo was noted and the patient has preserved LV function with severe pulm hypertension And the patient has also moderate degree of aortic stenosis with mild aortic regurgitation, severe tricuspid regurgitation and severe pulm hypertension with dilatation of the RA and RV. Cardiology is following Patient is being monitored on the telemetry unit. We will continue to follow
--- NOTE | 2024-02-01 13:50 | P.PN ---
Subjective Progress Note Date: 02/01/24 Consult reason: congestive heart failure, shortness of breath Chief complaint: sob History of present illness: History of present illness: Patient is a pleasant 74-year-old female with significant past medical history of CAD with prior CABG, CKD, severe pulmonary hypertension, diabetes, hyperlipidemia, a-fib, and history of recurrent GI bleed who presents with worsening shortness of breath. She does follow in the office with Dr. Weller. Reports that she has been having worsening shortness of breath. She is currently on BiPAP. She denies having any chest pain or pressure. Chest x-ray shows mildmoderate central vascular congestion. EKG shows sinus bradycardia 51 bpm, right bundle branch block. Telemetry does show heart rates in the 30s40s. Labs reviewed: Hemoglobin 7.5, potassium 5.4, creatinine 2.3, troponin negative x 1, BNP 9500. She does report that her shortness of breath is slightly better at this morning on BiPAP. 01/30 Patient is seen today in follow-up. She has been maintained on IV Lasix 40 mg every 12 hours. There is a concern that patient had heart rate in the 20s and 30s during the night, upon review mostly in the 30s, prolonged QT right bundle branch block. Patient states that she feels like she is getting a cold. She complains of phlegm production. She denies any increased coughing. Patient states that her breathing has been improved since she arrived to the hospital. Patient apparently has been off anticoagulation for some time due to requirement of multiple transfusions. 01/31 Patient is seen today in follow-up. She is been in a sinus rhythm in the mid 50s. Blood pressure 152/61, pulse ox 94% on 3 L nasal cannula. Repeat blood work reveals hemoglobin 7.5, platelet count 107. Sodium 142, potassium 4.9, BUN 69 creatinine 2.35. Yesterday we had discontinued IV Lasix and metolazone and subsequently pulmonary medicine has resumed IV Lasix. Heart rate is improved after the discontinuance of amiodarone and Toprol XL. PHYSICAL EXAMINATION: This is a 74-year-old female in no apparent distress at the time of my examination. HEENT: Head is atraumatic, normocephalic. Pupils are equal, round. Sclerae anicteric. Conjunctivae are clear. Mucous membranes of the mouth are moist. Neck is supple. There is no jugular venous distention. No carotid bruit is heard. CHEST EXAMINATION: Lungs are diminished throughout. No chest wall tenderness is noted on palpation or with deep breathing. HEART EXAMINATION: Heart regular rate and rhythm. S1, S2 heard. Systolic murmurs, gallops or rub. ABDOMEN: Soft, nontender. Bowel sounds are heard. obese. EXTREMITIES: 2+ peripheral pulses with 1+ peripheral edema and no calf tenderness noted. NEUROLOGIC EXAMINATION: Patient is awake, alert and oriented x3. IMPRESSION AND PLAN: CAD status post CABG in 1996 History of GI bleed Severe pulmonary hypertension Valvular heart disease including moderate MR, severe TR, mild Congestive heart failure with preserved EF, acute on chronic Chronic kidney disease Hypertension Hyperlipidemia Diabetes Shortness of breath Dismal atrial fibrillation currently in sinus bradycardia Bradycardia Chronic hypoxic respiratory failure on home O2 Obstructive sleep apnea on CPAP Anemia of chronic disease, status post iron infusion PLAN: Discontinue the following medications: Oral amiodarone, Toprol XL due to bradycardia, continue to hold metolazone IV Lasix 40 mg daily per pulmonary medicine Continue telemetry monitoring Monitor CESAR, daily weights, electrolytes and renal function We will follow. Nurse practitioner note has been reviewed, I agree with documented findings and plan of care. Patient was seen and examined. Objective - Vital Signs Vital signs: Vital Signs Temp 98 F 02/01/24 08:30 Pulse 54 L 02/01/24 08:30 Resp 18 02/01/24 08:30 BP 169/55 02/01/24 08:30 Pulse Ox 95 02/01/24 08:30 FiO2 40 02/01/24 04:03 Intake & Output 01/31/24 02/01/24 02/01/24 18:59 06:59 18:59 Intake Total 1140 276 0 Output Total 900 1300 Balance 240 -1024 0 Weight 145.3 kg 132.5 kg Intake: Oral 1140 0 Blood Product 276 Rc Pheresis 2 As3 Unit 276 [id number] Output: Urine 900 1300 Other: Voiding Method External Catheter External Catheter External Catheter - Labs CBC & Chem 7: 02/01/24 06:17 02/01/24 12:20 Labs: Abnormal Lab Results - Last 24 Hours (Table) 01/30/24 01/31/24 01/31/24 Range/Units 03:50 07:07 11:16 WBC 3.7 L (3.8-10.6) k/uL RBC 2.59 L (3.80-5.40) m/uL Hgb 7.1 L (11.4-16.0) gm/dL Hct 24.5 L (34.0-46.0) % MCHC 28.9 L (31.0-37.0) g/dL RDW 17.7 H (11.5-15.5) % Plt Count 103 L (150-450) k/uL Lymphocytes # 0.5 L (1.0-4.8) k/uL Potassium (3.5-5.1) mmol/L Carbon Dioxide (22-30) mmol/L BUN (7-17) mg/dL Creatinine (0.52-1.04) mg/dL Glucose (74-99) mg/dL POC Glucose (mg/dL) 148 H (70-110) mg/dL Hemoglobin A1c (<=6.0) % Iron 24 L (50-170) UG/DL % Saturation 6.03 L (12.00-45.00) Crossmatch 01/31/24 01/31/24 01/31/24 Range/Units 13:14 13:14 16:20 WBC (3.8-10.6) k/uL RBC (3.80-5.40) m/uL Hgb (11.4-16.0) gm/dL Hct (34.0-46.0) % MCHC (31.0-37.0) g/dL RDW (11.5-15.5) % Plt Count (150-450) k/uL Lymphocytes # (1.0-4.8) k/uL Potassium 5.6 H (3.5-5.1) mmol/L Carbon Dioxide 32 H (22-30) mmol/L BUN 74 H (7-17) mg/dL Creatinine 2.32 H (0.52-1.04) mg/dL Glucose 169 H (74-99) mg/dL POC Glucose (mg/dL) 188 H (70-110) mg/dL Hemoglobin A1c (<=6.0) % Iron (50-170) UG/DL % Saturation (12.00-45.00) Crossmatch See Detail 01/31/24 02/01/24 02/01/24 Range/Units 21:13 05:52 06:17 WBC (3.8-10.6) k/uL RBC (3.80-5.40) m/uL Hgb (11.4-16.0) gm/dL Hct (34.0-46.0) % MCHC (31.0-37.0) g/dL RDW (11.5-15.5) % Plt Count (150-450) k/uL Lymphocytes # (1.0-4.8) k/uL Potassium (3.5-5.1) mmol/L Carbon Dioxide (22-30) mmol/L BUN (7-17) mg/dL Creatinine (0.52-1.04) mg/dL Glucose (74-99) mg/dL POC Glucose (mg/dL) 223 H 126 H (70-110) mg/dL Hemoglobin A1c 6.2 H (<=6.0) % Iron (50-170) UG/DL % Saturation (12.00-45.00) Crossmatch 02/01/24 02/01/24 Range/Units 06:17 06:17 WBC (3.8-10.6) k/uL RBC 2.72 L (3.80-5.40) m/uL Hgb 7.5 L (11.4-16.0) gm/dL Hct 25.5 L (34.0-46.0) % MCHC 29.4 L (31.0-37.0) g/dL RDW 17.3 H (11.5-15.5) % Plt Count 107 L (150-450) k/uL Lymphocytes # 0.5 L (1.0-4.8) k/uL Potassium 5.5 H (3.5-5.1) mmol/L Carbon Dioxide 37 H (22-30) mmol/L BUN 69 H (7-17) mg/dL Creatinine 2.35 H (0.52-1.04) mg/dL Glucose 101 H (74-99) mg/dL POC Glucose (mg/dL) (70-110) mg/dL Hemoglobin A1c (<=6.0) % Iron (50-170) UG/DL % Saturation (12.00-45.00) Crossmatch
--- NOTE | 2024-02-01 16:04 | P.PN ---
Subjective Progress Note Date: 02/01/24 H&P Date: 01/30/24 Chief Complaint: dyspnea, exertional dyspnea patient states it's been quite humid and she had been using her air conditioning sparingly and she her breathing became compromised 01/31/2024 bradycardic, prolonged QT with right bundle branch block. Diuretics, antiarrhythmics discontinued as per cardiology today. Maintained on BiPAP last night. Reports she is unable to take oral anticoagulation, taken off of her Eliquis, due to symptomatic GI bleeds requiring multiple packed RBC transfusions as per PCP. Denies chest pain, palpitations or shortness of breath. Complains of stuffy nose, no increased cough denies lightheadedness, dizziness or focal deficits. TSH 16.2, free T4 normal, attributed to being on the oral amiodarone; levothyroxine increased as per PCP. 02/01/2024 yesterday both amiodarone and Toprol discontinued ,bradycardia improving, heart rate currently in the 50s. received 1 unit of packed RBCs yesterday for hemoglobin of 7.1, hemoglobin currently up to 7.5, reports feels better today. Echo completed yesterday reported technically difficult study ,normal LV function, EF 55 to 60%, severe tricuspid regurgitation and severe pulmonary hypertension, mild to moderate mitral regurgitation and mild to moderate mitral stenosis, moderate aortic stenosis with mild aortic regurgitation.received Lokelma, for potassium 5.5. Maintained on IV push Lasix, bicarb 37, BUN 69, creatinine 2.35 . Denies chest pain, palpitations or increase in shortness of breath. Hemoglobin A1c 6.2. Objective - Vital Signs Vital signs: Vital Signs Temp 98 F 02/01/24 08:30 Pulse 56 L 02/01/24 11:25 Resp 17 02/01/24 11:25 BP 152/61 02/01/24 11:25 Pulse Ox 94 L 02/01/24 11:25 FiO2 40 02/01/24 04:03 Intake & Output 01/31/24 02/01/24 02/01/24 18:59 06:59 18:59 Intake Total 1140 276 0 Output Total 900 1300 1200 Balance 240 -1024 -1200 Weight 145.3 kg 132.5 kg Intake: Oral 1140 0 Blood Product 276 Rc Pheresis 2 As3 Unit 276 [id number] Output: Urine 900 1300 1200 Other: Voiding Method External Catheter External Catheter External Catheter - Exam General: [morbidly obese, pleasant, sitting up in chair, no acute distress. HEENT: [PERRL. EOMI. No pharyngeal erythema or exudate.] Neck: Supple, no JVD Cardiac: [Heart regular rhythm, bradycardic, no S3. No S4. No clicks, rubs. Systolic murmur. midline surgical scar secondary to prior coronary artery bypass grafting Lungs: Unlabored, equal air entry, coarse , bibasilar crackles Abdomen: [Soft, obese, nontender no mass appreciated,+BS Extremes: [Decreasing bilateral lower extremity edema, no calf tenderness, positive DP pulses.] Skin: [Warm and dry no rash.] Neurologic: [ CN II - XII grossly intact.] - Labs CBC & Chem 7: 02/01/24 06:17 02/01/24 12:20 Labs: Abnormal Lab Results - Last 24 Hours (Table) 01/31/24 01/31/24 01/31/24 Range/Units 13:14 16:20 21:13 RBC (3.80-5.40) m/uL Hgb (11.4-16.0) gm/dL Hct (34.0-46.0) % MCHC (31.0-37.0) g/dL RDW (11.5-15.5) % Plt Count (150-450) k/uL Lymphocytes # (1.0-4.8) k/uL Potassium (3.5-5.1) mmol/L Carbon Dioxide (22-30) mmol/L BUN (7-17) mg/dL Creatinine (0.52-1.04) mg/dL Glucose (74-99) mg/dL POC Glucose (mg/dL) 188 H 223 H (70-110) mg/dL Hemoglobin A1c (<=6.0) % Crossmatch See Detail 02/01/24 02/01/24 02/01/24 Range/Units 05:52 06:17 06:17 RBC (3.80-5.40) m/uL Hgb (11.4-16.0) gm/dL Hct (34.0-46.0) % MCHC (31.0-37.0) g/dL RDW (11.5-15.5) % Plt Count (150-450) k/uL Lymphocytes # (1.0-4.8) k/uL Potassium 5.5 H (3.5-5.1) mmol/L Carbon Dioxide 37 H (22-30) mmol/L BUN 69 H (7-17) mg/dL Creatinine 2.35 H (0.52-1.04) mg/dL Glucose 101 H (74-99) mg/dL POC Glucose (mg/dL) 126 H (70-110) mg/dL Hemoglobin A1c 6.2 H (<=6.0) % Crossmatch 02/01/24 Range/Units 06:17 RBC 2.72 L (3.80-5.40) m/uL Hgb 7.5 L (11.4-16.0) gm/dL Hct 25.5 L (34.0-46.0) % MCHC 29.4 L (31.0-37.0) g/dL RDW 17.3 H (11.5-15.5) % Plt Count 107 L (150-450) k/uL Lymphocytes # 0.5 L (1.0-4.8) k/uL Potassium (3.5-5.1) mmol/L Carbon Dioxide (22-30) mmol/L BUN (7-17) mg/dL Creatinine (0.52-1.04) mg/dL Glucose (74-99) mg/dL POC Glucose (mg/dL) (70-110) mg/dL Hemoglobin A1c (<=6.0) % Crossmatch Assessment and Plan Assessment: Acute on chronic diastolic CHF Acute on chronic renal failure, stage III Acute on chronic anemia, iron deficient, not on oral anticoagulation secondary to history of acute GI bleed. Status post transfusion 1 unit packed RBCs. Chronic hypoxic, hypercapnic respiratory failure, wears 3 L nasal cannula at home History of COVID x 3, chronic fibrotic changes secondary to the COVID infection. Chronic obstructive sleep apnea, hypercapnic, requiring BiPAP Moderate to severe pulmonary hypertension Moderate aortic stenosis with mild aortic regurgitation Severe tricuspid regurgitation Chronic kidney disease,III History of UTI with Klebsiella pneumoniae, ESBL History of Chronic Bilateral lower extremity cellulitis Chronic persistent atrial fibrillation, anticoagulated on Eliquis-currently on hold CAD, history of CABG Hypertension hyperlipidemia Diabetes mellitus, last hemoglobin A1c 6.9, Diabetic neuropathy Hypothyroidism Depression, history of History of bariatric surgery Morbid obesity, BMI 59 Plan: Continue on current medication regimen ,monitoring and symptomatic treatment. Lasix dose decreased. Strict CESAR's .continue close monitoring of coags, electrolytes and renal function with repeat labs ordered for a.m. PT/OT. Urine cloudy, UA with reflex to culture repeated as per PCP. The impression and plan of care has been dictated as directed. : I performed a history and examination of this patient, discussed the same with the dictator. I agree with the dictator's note ,documented as a scribe. Any additional findings or plans will be noted.
[2024-02-01 16:19] LABS: Glucose,Whole Blood 123 mg/dL (70-110)
--- NOTE | 2024-02-01 16:49 | US ---
EXAMINATION TYPE: US kidneys/renal and bladder DATE OF EXAM: 02/01/2024 COMPARISON: None CLINICAL INDICATION: Female, 74 years old with history of amina; AMINA EXAM MEASUREMENTS: Right Kidney: 10.4 x 4.7 x 5.0 cm Left Kidney: 9.4 x 5.2 x 5.3 cm Vision Impaired Teacher notes: Morbidly obese, immobile pt- difficult to scan Right Kidney: No evidence of hydro, lower pole gassed out Left Kidney: Limited views due to pt immobility and morbid obesity, no evidence of hydro Bladder: Unable to visualize due to pt's large body habitus IMPRESSION: Very limited assessment due to patient body habitus. Detail parenchymal assessment is limited. No obv ious hydronephrosis seen.
[2024-02-01 20:31] LABS: Glucose,Whole Blood 209 mg/dL (70-110)
[2024-02-01 21:10] LABS: Appearance,Urine Cloudy (Clear); Bacteria,Urine Moderate /hpf; Bilirubin,Urine Negative (Negative); Blood,Urine Small (Negative); Color,Urine Colorless; Glucose,Urine (UA) Negative (Negative); Ketones,Urine Negative (Negative); Leukocyte Esterase,Urine Large (Negative); Mucus,Urine Rare /hpf; Nitrite,Urine Negative (Negative); PH, Urine 5.5 (5.0-8.0); Protein,Urine Negative (Negative); RBC,Urine 14 /hpf (0-5); Squamous Epithelial Cell,Urine 1 /hpf (0-4); Urobilinogen,Urine <2.0 mg/dL (<2.0); WBC,Urine 25 /hpf (0-5)
[2024-02-02 06:28] LABS: Glucose,Whole Blood 103 mg/dL (70-110)
[2024-02-02] MEDS: FUROSEMIDE 10 MG/ML 4 ML VIAL IV SCH (08:14)
[2024-02-02] MEDS: amLODIPine 5 MG TAB PO SCH (08:14)
[2024-02-02 11:45] LABS: Glucose,Whole Blood 136 mg/dL (70-110)
[2024-02-02 12:15] LABS: African American GFR (CKD) 29 (>60 ml/min/1.73 sqM); Anion Gap 4 mmol/L; Blood Urea Nitrogen 62 mg/dL (7-17); Calcium 9.2 mg/dL (8.4-10.2); Carbon Dioxide 37 mmol/L (22-30); Chloride 101 mmol/L (98-107); Glucose 125 mg/dL (74-99); Non-African American GFR(CKD) 25 (>60 ml/min/1.73 sqM); Potassium 4.9 mmol/L (3.5-5.1); Sodium 142 mmol/L (137-145)
--- NOTE | 2024-02-02 12:17 | P.PN ---
Subjective Patient is seen in follow-up for acute kidney injury on chronic kidney disease. Renal function improving with diuresis. Denies chest pain or shortness of breath. Oral intake fair. Nonoliguric. Vital signs are stable. General: No acute distress. HEENT: Head exam is unremarkable. On nasal cannula. LUNGS: No audible rhonchi or wheezes. HEART: Rate and Rhythm are regular. ABDOMEN: Obese, nontender. EXTREMITITES: 1+ edema. Objective - Vital Signs Vital signs: Vital Signs Temp 98.3 F 02/02/24 08:15 Pulse 65 02/02/24 08:15 Resp 17 02/02/24 08:15 BP 125/50 02/02/24 08:15 Pulse Ox 93 L 02/02/24 08:15 FiO2 40 02/02/24 03:46 Intake & Output 02/01/24 02/02/24 02/02/24 18:59 06:59 18:59 Intake Total 298 180 Output Total 1900 800 Balance -1602 -800 180 Weight 146.5 kg Intake: Oral 298 180 Output: Urine 1900 800 Other: Voiding Method External Catheter External Catheter External Catheter # Voids 1 - Labs CBC & Chem 7: 02/01/24 06:17 02/02/24 11:36 Labs: Abnormal Lab Results - Last 24 Hours (Table) 02/01/24 02/01/24 02/01/24 Range/Units 16:17 20:29 20:33 Carbon Dioxide (22-30) mmol/L BUN (7-17) mg/dL Creatinine (0.52-1.04) mg/dL Glucose (74-99) mg/dL POC Glucose (mg/dL) 123 H 209 H (70-110) mg/dL Urine Appearance Cloudy H (Clear) Urine Blood Small H (Negative) Ur Leukocyte Esterase Large H (Negative) Urine RBC 14 H (0-5) /hpf Urine WBC 25 H (0-5) /hpf Urine WBC Clumps Occasional H (None) /hpf Urine Bacteria Moderate H (None) /hpf Urine Mucus Rare H (None) /hpf 02/02/24 02/02/24 Range/Units 11:36 11:43 Carbon Dioxide 37 H (22-30) mmol/L BUN 62 H (7-17) mg/dL Creatinine 1.93 H (0.52-1.04) mg/dL Glucose 125 H (74-99) mg/dL POC Glucose (mg/dL) 136 H (70-110) mg/dL Urine Appearance (Clear) Urine Blood (Negative) Ur Leukocyte Esterase (Negative) Urine RBC (0-5) /hpf Urine WBC (0-5) /hpf Urine WBC Clumps (None) /hpf Urine Bacteria (None) /hpf Urine Mucus (None) /hpf Assessment and Plan Plan: Assessment: 1. Acute kidney injury secondary to ATN secondary to cardiorenal syndrome. Renal function improving. Creatinine 1.93 today. No hydronephrosis noted on kidney ultrasound. 2. Chronic kidney disease stage IIIb with baseline creatinine 1.5-1.6 secondary to nephrosclerosis and cardiorenal syndrome. 3. Acute on chronic diastolic CHF with moderate aortic stenosis, moderate mitral regurgitation, severe tricuspid regurgitation and pulmonary hypertension. 4. Volume overload. Improving with diuresis. 5. Hyperkalemia secondary to chronic kidney disease and potassium supplementation. Improved. 6. Diabetes mellitus. 7. Coronary artery disease status post CABG. 8. Anemia. Iron deficiency noted. Plan: Maintain IV Lasix. Low-salt diet and 1500 cc fluid restriction. Maintain IV iron. Repeat labs in the morning.
--- NOTE | 2024-02-02 13:53 | P.PN ---
Subjective Progress Note Date: 02/02/24 Consult reason: congestive heart failure, shortness of breath Chief complaint: sob History of present illness: History of present illness: Patient is a pleasant 74-year-old female with significant past medical history of CAD with prior CABG, CKD, severe pulmonary hypertension, diabetes, hyperlipidemia, a-fib, and history of recurrent GI bleed who presents with worsening shortness of breath. She does follow in the office with Dr. Weller. Reports that she has been having worsening shortness of breath. She is currently on BiPAP. She denies having any chest pain or pressure. Chest x-ray shows mildmoderate central vascular congestion. EKG shows sinus bradycardia 51 bpm, right bundle branch block. Telemetry does show heart rates in the 30s40s. Labs reviewed: Hemoglobin 7.5, potassium 5.4, creatinine 2.3, troponin negative x 1, BNP 9500. She does report that her shortness of breath is slightly better at this morning on BiPAP. 01/30 Patient is seen today in follow-up. She has been maintained on IV Lasix 40 mg every 12 hours. There is a concern that patient had heart rate in the 20s and 30s during the night, upon review mostly in the 30s, prolonged QT right bundle branch block. Patient states that she feels like she is getting a cold. She complains of phlegm production. She denies any increased coughing. Patient states that her breathing has been improved since she arrived to the hospital. Patient apparently has been off anticoagulation for some time due to requirement of multiple transfusions. 01/31 Patient is seen today in follow-up. She is been in a sinus rhythm in the mid 50s. Blood pressure 152/61, pulse ox 94% on 3 L nasal cannula. Repeat blood work reveals hemoglobin 7.5, platelet count 107. Sodium 142, potassium 4.9, BUN 69 creatinine 2.35. Yesterday we had discontinued IV Lasix and metolazone and subsequently pulmonary medicine has resumed IV Lasix. Heart rate is improved after the discontinuance of amiodarone and Toprol XL. 02/01 Blood pressure 168/62, heart rate 54, pulse ox 94% on 3 L. Patient was on BiPAP during the night. Telemetry shows a heart rate of atrial fibrillation in the 60s. We have put amiodarone and beta-josh on hold due to bradycardia but we will plan to most likely resume beta-josh at a lower dose. Repeat blood work reveals BUN 62 creatinine 1.93. PHYSICAL EXAMINATION: This is a 74-year-old female in no apparent distress at the time of my examination. HEENT: Head is atraumatic, normocephalic. Pupils are equal, round. Sclerae anicteric. Conjunctivae are clear. Mucous membranes of the mouth are moist. Neck is supple. There is no jugular venous distention. No carotid bruit is heard. CHEST EXAMINATION: Lungs are diminished throughout. No chest wall tenderness is noted on palpation or with deep breathing. HEART EXAMINATION: Heart regular rate and rhythm. S1, S2 heard. Systolic murmurs, gallops or rub. ABDOMEN: Soft, nontender. Bowel sounds are heard. obese. EXTREMITIES: 2+ peripheral pulses with 1+ peripheral edema and no calf tenderness noted. NEUROLOGIC EXAMINATION: Patient is awake, alert and oriented x3. IMPRESSION AND PLAN: CAD status post CABG in 1996 History of GI bleed Severe pulmonary hypertension Valvular heart disease including moderate MR, severe TR, mild Congestive heart failure with preserved EF, acute on chronic Chronic kidney disease Hypertension Hyperlipidemia Diabetes Shortness of breath Dismal atrial fibrillation currently in sinus bradycardia Bradycardia, BRASH Chronic hypoxic respiratory failure on home O2 Obstructive sleep apnea on CPAP Anemia of chronic disease, status post iron infusion PLAN: Discontinue amiodarone Continue to hold Toprol XL due to bradycardia and we will consider resuming at lower dose tomorrow Continue to hold metolazone IV Lasix 40 mg daily per pulmonary medicine Continue telemetry monitoring Monitor CESAR, daily weights, electrolytes and renal function We will follow. Nurse practitioner note has been reviewed, I agree with documented findings and plan of care. Patient was seen and examined. Objective - Vital Signs Vital signs: Vital Signs Temp 98.1 F 02/02/24 03:46 Pulse 54 L 02/02/24 03:46 Resp 18 02/02/24 03:46 BP 168/62 02/02/24 03:46 Pulse Ox 98 02/02/24 03:46 FiO2 40 02/02/24 03:46 Intake & Output 02/01/24 02/02/24 02/02/24 18:59 06:59 18:59 Intake Total 298 Output Total 1900 800 Balance -1602 -800 Weight 146.5 kg Intake: Oral 298 Output: Urine 1900 800 Other: Voiding Method External Catheter External Catheter - Labs CBC & Chem 7: 02/01/24 06:17 02/02/24 11:36 Labs: Abnormal Lab Results - Last 24 Hours (Table) 02/01/24 02/01/24 02/01/24 Range/Units 16:17 20:29 20:33 POC Glucose (mg/dL) 123 H 209 H (70-110) mg/dL Urine Appearance Cloudy H (Clear) Urine Blood Small H (Negative) Ur Leukocyte Esterase Large H (Negative) Urine RBC 14 H (0-5) /hpf Urine WBC 25 H (0-5) /hpf Urine WBC Clumps Occasional H (None) /hpf Urine Bacteria Moderate H (None) /hpf Urine Mucus Rare H (None) /hpf
--- NOTE | 2024-02-02 13:53 | P.PN ---
Subjective Progress Note Date: 02/02/24 H&P Date: 01/30/24 Chief Complaint: dyspnea, exertional dyspnea patient states it's been quite humid and she had been using her air conditioning sparingly and she her breathing became compromised 01/31/2024 bradycardic, prolonged QT with right bundle branch block. Diuretics, antiarrhythmics discontinued as per cardiology today. Maintained on BiPAP last night. Reports she is unable to take oral anticoagulation, taken off of her Eliquis, due to symptomatic GI bleeds requiring multiple packed RBC transfusions as per PCP. Denies chest pain, palpitations or shortness of breath. Complains of stuffy nose, no increased cough denies lightheadedness, dizziness or focal deficits. TSH 16.2, free T4 normal, attributed to being on the oral amiodarone; levothyroxine increased as per PCP. 02/01/2024 yesterday both amiodarone and Toprol discontinued ,bradycardia improving, heart rate currently in the 50s. received 1 unit of packed RBCs yesterday for hemoglobin of 7.1, hemoglobin currently up to 7.5, reports feels better today. Echo completed yesterday reported technically difficult study ,normal LV function, EF 55 to 60%, severe tricuspid regurgitation and severe pulmonary hypertension, mild to moderate mitral regurgitation and mild to moderate mitral stenosis, moderate aortic stenosis with mild aortic regurgitation.received Lokelma, for potassium 5.5. Maintained on IV push Lasix, bicarb 37, BUN 69, creatinine 2.35 . Denies chest pain, palpitations or increase in shortness of breath. Hemoglobin A1c 6.2. 02/02/2024 diuresing well on Lasix IV push with 24-hour I&O inaccurate. Renal function improving, creatinine decreased to 1.93. Blood sugars better controlled. Denies chest pain, palpitations or increase in shortness of breath. Maintaining O2 sats in the low 90s on 3 L nasal cannula; wears BiPAP at night. Afebrile. Objective - Vital Signs Vital signs: Vital Signs Temp 98.3 F 02/02/24 08:15 Pulse 65 02/02/24 08:15 Resp 17 02/02/24 08:15 BP 125/50 02/02/24 08:15 Pulse Ox 93 L 02/02/24 08:15 FiO2 40 02/02/24 03:46 Intake & Output 02/01/24 02/02/24 02/02/24 18:59 06:59 18:59 Intake Total 298 180 Output Total 1900 800 Balance -1602 -800 180 Weight 146.5 kg Intake: Oral 298 180 Output: Urine 1900 800 Other: Voiding Method External Catheter External Catheter External Catheter - Exam General: [morbidly obese, pleasant, sitting up in chair, no acute distress. HEENT: [PERRL. EOMI. No pharyngeal erythema or exudate.] Neck: Supple, no JVD Cardiac: [Heart regular rhythm, no S3. No S4. No clicks, rubs. Systolic murmur. midline surgical scar secondary to prior coronary artery bypass grafting Lungs: Unlabored, equal air entry, coarse , bibasilar crackles Abdomen: [Soft, obese, nontender no mass appreciated,+BS Extremes: [Decreasing bilateral lower extremity edema, no calf tenderness, positive DP pulses.] Skin: [Warm and dry no rash.] Neurologic: [ CN II - XII grossly intact.] - Labs CBC & Chem 7: 02/01/24 06:17 02/02/24 11:36 Labs: Abnormal Lab Results - Last 24 Hours (Table) 02/01/24 02/01/24 02/01/24 Range/Units 16:17 20:29 20:33 POC Glucose (mg/dL) 123 H 209 H (70-110) mg/dL Urine Appearance Cloudy H (Clear) Urine Blood Small H (Negative) Ur Leukocyte Esterase Large H (Negative) Urine RBC 14 H (0-5) /hpf Urine WBC 25 H (0-5) /hpf Urine WBC Clumps Occasional H (None) /hpf Urine Bacteria Moderate H (None) /hpf Urine Mucus Rare H (None) /hpf Assessment and Plan Assessment: Acute on chronic diastolic CHF Acute on chronic renal failure, stage III Acute on chronic anemia, iron deficient, not on oral anticoagulation secondary to history of acute GI bleed. Status post transfusion 1 unit packed RBCs. Chronic hypoxic, hypercapnic respiratory failure, wears 3 L nasal cannula at home History of COVID x 3, chronic fibrotic changes secondary to the COVID infection. Chronic obstructive sleep apnea, hypercapnic, requiring BiPAP Moderate to severe pulmonary hypertension Moderate aortic stenosis with mild aortic regurgitation Severe tricuspid regurgitation Chronic kidney disease,III History of UTI with Klebsiella pneumoniae, ESBL History of Chronic Bilateral lower extremity cellulitis Chronic persistent atrial fibrillation, anticoagulated on Eliquis-currently on hold CAD, history of CABG Hypertension hyperlipidemia Diabetes mellitus, last hemoglobin A1c 6.9, Diabetic neuropathy Hypothyroidism Depression, history of History of bariatric surgery Morbid obesity, BMI 59 Plan: Continue on current medication regimen ,monitoring and symptomatic treatment. Diuretics as per pulmonary. daily weights/ strict CESAR's .continue close monitoring of coags, electrolytes and renal function with repeat labs ordered for a.m. PT/OT. Discharge planning in progress for home with home care pending transition to oral diuretics. The impression and plan of care has been dictated as directed. : I performed a history and examination of this patient, discussed the same with the dictator. I agree with the dictator's note ,documented as a scribe. Any additional findings or plans will be noted.
--- NOTE | 2024-02-02 18:11 | P.PN ---
Subjective Progress Note Date: 02/02/24 Patient is a 74-year-old white female with past medical history significant for coronary artery disease with previous CABG, atrial fibrillation, hyperlipidemia, hypertension, hypothyroidism, diabetes mellitus, CKD stage III, obstructive sleep apnea with home CPAP, chronic hypoxemic respiratory failure, among other things. Patient's primary care provider is Dr. Cruz. Also follows in the pulmonary office with Dr. Lainez for management of her obstructive sleep apnea, maintained on APAP machine pressures of 4/20 cm of water. Patient presented to the emergency room yesterday morning and some respiratory distress. She was noted to be hypoxic. Initially placed on BiPAP with settings of 12/5 and FiO2 of 40%. Patient states that her shortness of breath has progressively been worsening over the last week. This is associated with increased lower extremity swelling. She states that she has been taking her Lasix as ordered, twice a day, but has not been peeing as much is normal. Denies any other urinary symptoms. Denies any chest pain. She denies any infectious-like symptoms such as fever, cough, sputum production. Chest x-ray done on arrival cardiomegaly with mild to moderate central vascular congestion. Suspect CHF exacerbation/fluid overload. NT proBNP is 9500. She is bradycardic. EKG demonstrating sinus bradycardia with RBBB pattern. Blood pressure is normotensive. CBC: WBC count 4.7, hemoglobin 7.5, hematocrit 25.4, platelets 105. CMP: Sodium 141, potassium 5.4, chloride 105, serum bicarb 29, BUN 75, creatinine 2.73, glucose 157. Lactic 1.4. LFTs not elevated. Troponin less than 0.012. She is currently being monitored on the cardiac unit. 02/01/2024, I am seeing the patient for a follow-up. Patient is doing well as the patient is being diuresed with IV Lasix 40 mg every 24 hours. Producing adequate urine output and the patient's fluid balance is negative and there is improvement in lower extremity edema. Lasix dose was switched from twice a day to once a day. BUN is 69 with a creatinine of 2.35 and a potassium level of 4.9 discussed 3.8 with a hemoglobin of 7.5. Remains on oxygen at 3 L with a pulse ox of 94%. No other complaints otherwise for now. Clinically and hemodynamically stable. Echocardiogram was repeated on 01/31/2024 and showed pres erved LV function with an EF of 55 to 60%. Severe RV dilatation and severe pulmonary hypertension and moderate to severe tricuspid regurgitation and severe pulm hypertension. Patient also has moderate aortic stenosis with mild aortic regurgitation. 02/02/2024, the patient is doing extremely well. No significant respiratory distress and the patient is currently on 3 L of oxygen by nasal cannula with a pulse ox of 92%. She is still being diuresed with IV Lasix. Fluid balance is - 2.4 L over the past 24 hours. She is hemodynamically stable. Creatinine is improving is currently down to 1.9 with a BUN of 62. Rest of the electrolytes are stable with a sodium level of 142 and a potassium level of 4.9 and a serum bicarb of 37. The patient is calm and comfortable. She is utilizing a CPAP overnight. She remains on Lasix 40 mg IV every 24 hours. She is also on Levemir insulin 42 units daily and NovoLog sliding scale coverage. IV fluids at KVO. Lower extreme edema is improving. Blood pressure is stable. Hemodynamically stable. She was slightly hypotensive and blood pressure is b eing monitored for now. She does have moderate degree of aortic stenosis and mild aortic regurgitation with a preserved LV function. She has severe pulm hypertension. She is known to have coronary disease with previous bypass surgery. She has A-fib, diabetes mellitus on Levemir insulin and chronic stage III kidney disease. She has also chronic hypertension. Objective - Vital Signs Vital signs: Vital Signs Temp 98.3 F 02/02/24 08:15 Pulse 74 02/02/24 11:40 Resp 17 02/02/24 11:40 BP 178/66 02/02/24 11:40 Pulse Ox 92 L 02/02/24 11:40 FiO2 40 02/02/24 03:46 Intake & Output 02/01/24 02/02/24 02/02/24 18:59 06:59 18:59 Intake Total 298 360 Output Total 1900 800 Balance -1602 -800 360 Weight 146.5 kg Intake: Oral 298 360 Output: Urine 1900 800 Other: Voiding Method External Catheter External Catheter External Catheter # Voids 1 - Exam GENERAL EXAM: Alert, 74-year-old morbidly obese white female, comfortable in no apparent distress. BiPAP on standby at bedside HEAD: Normocephalic and atraumatic EYES: Normal reaction of pupils, equal size. NOSE: Clear with pink turbinates. THROAT: No erythema or exudates. NECK: No masses, no JVD. CHEST: No chest wall deformity. LUNGS: Equal air entry with bibasilar inspiratory crackles. On 3 L/min nasal cannula. No conversational dyspnea or accessory muscle use.. CVS: S1 and S2 normal with soft systolic murmur, regular rhythm. No other extra heart sounds. Bradycardic, rate 44 bpm. ABDOMEN: No hepatosplenomegaly, active bowel sounds, no guarding or rigidity. SPINE: No scoliosis or deformity SKIN: No rashes CENTRAL NERVOUS SYSTEM: No focal deficits, tone is normal in all 4 extremities. EXTREMITIES: There bilateral 3+ pitting lower extremity edema. No clubbing, or cyanosis. Peripheral pulses are intact. - Labs CBC & Chem 7: 02/01/24 06:17 02/02/24 11:36 Labs: Abnormal Lab Results - Last 24 Hours (Table) 02/01/24 02/01/24 02/01/24 Range/Units 16:17 20:29 20:33 Carbon Dioxide (22-30) mmol/L BUN (7-17) mg/dL Creatinine (0.52-1.04) mg/dL Glucose (74-99) mg/dL POC Glucose (mg/dL) 123 H 209 H (70-110) mg/dL Urine Appearance Cloudy H (Clear) Urine Blood Small H (Negative) Ur Leukocyte Esterase Large H (Negative) Urine RBC 14 H (0-5) /hpf Urine WBC 25 H (0-5) /hpf Urine WBC Clumps Occasional H (None) /hpf Urine Bacteria Moderate H (None) /hpf Urine Mucus Rare H (None) /hpf 02/02/24 02/02/24 Range/Units 11:36 11:43 Carbon Dioxide 37 H (22-30) mmol/L BUN 62 H (7-17) mg/dL Creatinine 1.93 H (0.52-1.04) mg/dL Glucose 125 H (74-99) mg/dL POC Glucose (mg/dL) 136 H (70-110) mg/dL Urine Appearance (Clear) Urine Blood (Negative) Ur Leukocyte Esterase (Negative) Urine RBC (0-5) /hpf Urine WBC (0-5) /hpf Urine WBC Clumps (None) /hpf Urine Bacteria (None) /hpf Urine Mucus (None) /hpf Assessment and Plan Assessment: Acute on chronic hypoxemic respiratory failure, suspected secondary to exacerbation of heart failure with preserved ejection fraction, chest x-ray demonstrating cardiomegaly with moderate central vascular congestion. Patient has had increased lower extremity edema over the last week. NT proBNP 9500. The patient is currently stable on 2 L of oxygen nasal cannula the patient producing excellent urine outputthe patient is being 40 mg every 12 hours. Fluid balance is negative. Bradycardia, currently asymptomatic Chronic diastolic heart failure, most recent echocardiogram available from 12/17/2022 estimates a preserved left ventricular ejection fraction of 55%, moderate mitral regurgitation, severe pulmonary hypertension, and severe tricuspid regurgitation. History of valvular heart disease, as mentioned above Chronic hypoxemic respiratory failure, normally maintained on 3 L/min nasal cannula at home Obstructive sleep apnea, maintained on APAP machine with minimum pressure of 4 and maximum of 20 cm H2O History of GI bleed History of gastritis History of atrial fibrillation, not currently on any anticoagulation, secondary to above History of coronary artery disease with previous CABG History of hypertension History of hyperlipidemia Diabetes mellitus, insulin-dependent, complicated by diabetic neuropathy History of hypothyroidism Morbid obesity, with a BMI 57.6 kg/m Plan: Clinically stable and the patient responded to the treatment. Will continue Lasix and change to dose of 40 mg per 24 hours. Excellent urine output. Continue supplemental oxygen to maintain oxygen saturation of 90% or greater, currently on 2 L of oxygen by nasal cannula. Echo was noted and the patient has preserved LV function with severe pulm hypertension And the patient has also moderate degree of aortic stenosis with mild aortic regurgitation, severe tricuspid regurgitation and severe pulm hypertension with dilatation of the RA and RV. Cardiology is following Monitor renal function and electrolytes as the patient is being diuresed. Fluid balance is negative. Patient is being monitored on the telemetry unit. We will continue to follow
[2024-02-02 20:07] LABS: Glucose,Whole Blood 235 mg/dL (70-110)
[2024-02-03 05:59] LABS: Glucose,Whole Blood 128 mg/dL (70-110)
[2024-02-03 08:28] LABS: Anisocytosis Slight; HCT 25.8 % (34.0-46.0); HGB 7.7 gm/dL (11.4-16.0); Hypochromasia Marked; MCH 27.7 pg (25.0-35.0); MCHC 29.8 g/dL (31.0-37.0); MCV 92.9 fL (80.0-100.0); Mean Platelet Volume 8.8; Platelet Count 100 k/uL (150-450); RBC 2.78 m/uL (3.80-5.40); RDW 17.3 % (11.5-15.5); WBC 5.6 k/uL (3.8-10.6)
[2024-02-03 08:40] LABS: African American GFR (CKD) 36 (>60 ml/min/1.73 sqM); Blood Urea Nitrogen 52 mg/dL (7-17); Chloride 102 mmol/L (98-107); Glucose 90 mg/dL (74-99); Non-African American GFR(CKD) 31 (>60 ml/min/1.73 sqM); Potassium 4.4 mmol/L (3.5-5.1); Sodium 142 mmol/L (137-145)
[2024-02-03 08:49] LABS: Anion Gap 4 mmol/L
[2024-02-03 08:53] LABS: Carbon Dioxide 36 mmol/L (22-30)
[2024-02-03] MEDS: LOSARTAN 25 MG TAB PO SCH (10:46)
[2024-02-03] MEDS: carvediloL 6.25 MG TAB PO SCH (10:46)
[2024-02-03] MEDS: HYDROcodone/APAP 10-325MG 1 EACH TAB PO PRN (10:46)
--- NOTE | 2024-02-03 11:14 | P.PN ---
Subjective Progress Note Date: 02/03/24 Patient is being followed for acute kidney injury on chronic kidney disease secondary to cardiorenal syndrome. Patient reports unchanged shortness of breath. She states that she feels about the same as yesterday. Able to make urine. Creatinine this morning was 1.6, which is her baseline. Vitals are stable. General: No acute distress. HEENT: On 3L nasal cannula. Lungs: No audible rhonchi, wheezes, or rales. Heart: Rate and rhythm are regular. Murmurs of aortic stenosis, mitral regurgitation, and tricuspid regurgitation present. Extremities: No edema present. Objective - Vital Signs Vital signs: Vital Signs Temp 97.7 F 02/03/24 08:00 Pulse 74 02/03/24 08:00 Resp 18 02/03/24 08:00 BP 171/74 02/03/24 08:00 Pulse Ox 92 L 02/03/24 08:00 FiO2 40 02/03/24 07:52 Intake & Output 02/02/24 02/03/24 02/03/24 18:59 06:59 18:59 Intake Total 540 550 118 Output Total 1150 Balance 540 -600 118 Weight 141.6 kg Intake: IV 10 Invasive Line 1 10 Oral 540 540 118 Output: Urine 1150 Other: Voiding Method External Catheter External Catheter # Voids 1 - Labs CBC & Chem 7: 02/03/24 07:50 02/03/24 07:50 Labs: Abnormal Lab Results - Last 24 Hours (Table) 02/02/24 02/02/24 02/02/24 Range/Units 11:36 11:43 20:05 RBC (3.80-5.40) m/uL Hgb (11.4-16.0) gm/dL Hct (34.0-46.0) % MCHC (31.0-37.0) g/dL RDW (11.5-15.5) % Plt Count (150-450) k/uL Carbon Dioxide 37 H (22-30) mmol/L BUN 62 H (7-17) mg/dL Creatinine 1.93 H (0.52-1.04) mg/dL Glucose 125 H (74-99) mg/dL POC Glucose (mg/dL) 136 H 235 H (70-110) mg/dL 02/03/24 02/03/24 02/03/24 Range/Units 05:57 07:50 07:50 RBC 2.78 L (3.80-5.40) m/uL Hgb 7.7 L (11.4-16.0) gm/dL Hct 25.8 L (34.0-46.0) % MCHC 29.8 L (31.0-37.0) g/dL RDW 17.3 H (11.5-15.5) % Plt Count 100 L (150-450) k/uL Carbon Dioxide 36 H (22-30) mmol/L BUN 52 H (7-17) mg/dL Creatinine 1.60 H (0.52-1.04) mg/dL Glucose (74-99) mg/dL POC Glucose (mg/dL) 128 H (70-110) mg/dL Assessment and Plan Assessment: 1. Acute kidney injury secondary to ACN secondary to cardiorenal syndrome. Renal function improving. No hydronephrosis noted on kidney ultrasound. 2. Chronic kidney disease stage IIIb with baseline creatinine 1.5-1.6 secondary to nephrosclerosis and cardiorenal syndrome. 3. Acute on chronic diastolic CHF with moderate aortic stenosis, moderate mitral regurgitation, severe tricuspid regurgitation, and pulmonary hypertension. 4. Volume overload. Improving with diuresis. 5. Hyperkalemia secondary to chronic kidney disease and potassium supplementation. Improved. 6. Diabetes mellitus. 7. Coronary artery disease status post CABG. 8. Anemia. Iron deficiency noted. Plan: Maintain IV Lasix. Low-salt diet and 1500 cc fluid restriction. Maintain IV iron. Continue to monitor to renal function. I personally saw and examined patient at bedside along with resident and agree with current assessment and plan.
[2024-02-03 11:25] LABS: Glucose,Whole Blood 129 mg/dL (70-110)
--- NOTE | 2024-02-03 13:31 | P.PN ---
Subjective Progress Note Date: 02/03/24 Consult reason: congestive heart failure, shortness of breath Chief complaint: sob History of present illness: History of present illness: Patient is a pleasant 74-year-old female with significant past medical history of CAD with prior CABG, CKD, severe pulmonary hypertension, diabetes, hyperlipidemia, a-fib, and history of recurrent GI bleed who presents with worsening shortness of breath. She does follow in the office with Dr. Weller. Reports that she has been having worsening shortness of breath. She is currently on BiPAP. She denies having any chest pain or pressure. Chest x-ray shows mildmoderate central vascular congestion. EKG shows sinus bradycardia 51 bpm, right bundle branch block. Telemetry does show heart rates in the 30s40s. Labs reviewed: Hemoglobin 7.5, potassium 5.4, creatinine 2.3, troponin negative x 1, BNP 9500. She does report that her shortness of breath is slightly better at this morning on BiPAP. 01/30 Patient is seen today in follow-up. She has been maintained on IV Lasix 40 mg every 12 hours. There is a concern that patient had heart rate in the 20s and 30s during the night, upon review mostly in the 30s, prolonged QT right bundle branch block. Patient states that she feels like she is getting a cold. She complains of phlegm production. She denies any increased coughing. Patient states that her breathing has been improved since she arrived to the hospital. Patient apparently has been off anticoagulation for some time due to requirement of multiple transfusions. 01/31 Patient is seen today in follow-up. She is been in a sinus rhythm in the mid 50s. Blood pressure 152/61, pulse ox 94% on 3 L nasal cannula. Repeat blood work reveals hemoglobin 7.5, platelet count 107. Sodium 142, potassium 4.9, BUN 69 creatinine 2.35. Yesterday we had discontinued IV Lasix and metolazone and subsequently pulmonary medicine has resumed IV Lasix. Heart rate is improved after the discontinuance of amiodarone and Toprol XL. 02/01 Blood pressure 168/62, heart rate 54, pulse ox 94% on 3 L. Patient was on BiPAP during the night. Telemetry shows a heart rate of atrial fibrillation in the 60s. We have put amiodarone and beta-josh on hold due to bradycardia but we will plan to most likely resume beta-josh at a lower dose. Repeat blood work reveals BUN 62 creatinine 1.93. 02/02 No new concerns from the patient. She states her breathing is stable today. She is making urine. She is on IV Lasix. Blood pressure 151/66, heart rate 79, pulse ox 90% on 3 L nasal cannula. Patient has a negative fluid balance. Repeat blood work reveals hemoglobin 7.7, platelet count 100. BUN 52 creatinine 1.6. Patient's bradycardia is recovering. PHYSICAL EXAMINATION: This is a 74-year-old female in no apparent distress at the time of my examination. HEENT: Head is atraumatic, normocephalic. Pupils are equal, round. Sclerae anicteric. Conjunctivae are clear. Mucous membranes of the mouth are moist. Neck is supple. There is no jugular venous distention. No carotid bruit is heard. CHEST EXAMINATION: Lungs are diminished throughout. No chest wall tenderness is noted on palpation or with deep breathing. HEART EXAMINATION: Heart regular rate and rhythm. S1, S2 heard. Systolic murmurs, gallops or rub. ABDOMEN: Soft, nontender. Bowel sounds are heard. obese. EXTREMITIES: 2+ peripheral pulses with 1+ peripheral edema and no calf tenderness noted. NEUROLOGIC EXAMINATION: Patient is awake, alert and oriented x3. IMPRESSION AND PLAN: CAD status post CABG in 1996 History of GI bleed Severe pulmonary hypertension Valvular heart disease including moderate MR, severe TR, mild Congestive heart failure with preserved EF, acute on chronic Chronic kidney disease Hypertension Hyperlipidemia Diabetes Shortness of breath Dismal atrial fibrillation currently in sinus bradycardia Bradycardia, BRASH Chronic hypoxic respiratory failure on home O2 Obstructive sleep apnea on CPAP Anemia of chronic disease, status post iron infusion PLAN: Start patient on Coreg 6.25 mg twice daily Start patient on losartan 12.5 mg daily Discontinue IV Lasix and start patient on Bumex 1 mg daily Increase frequency of amlodipine 5 mg to twice daily Continue atorvastatin 40 mg at bedtime, continue Imdur 30 mg daily Continue to hold metolazone Monitor CESAR, daily weights, electrolytes and renal function We will follow. Nurse practitioner note has been reviewed, I agree with documented findings and plan of care. Patient was seen and examined. Objective - Vital Signs Vital signs: Vital Signs Temp 97.7 F 02/03/24 08:00 Pulse 74 02/03/24 10:04 Resp 18 02/03/24 10:04 BP 171/74 02/03/24 08:00 Pulse Ox 92 L 02/03/24 08:00 FiO2 40 02/03/24 07:52 Intake & Output 02/02/24 02/03/24 02/03/24 18:59 06:59 18:59 Intake Total 540 550 118 Output Total 1150 Balance 540 -600 118 Weight 141.6 kg Intake: IV 10 Invasive Line 1 10 Oral 540 540 118 Output: Urine 1150 Other: Voiding Method External Catheter External Catheter External Catheter # Voids 1 - Labs CBC & Chem 7: 02/03/24 07:50 02/03/24 07:50 Labs: Abnormal Lab Results - Last 24 Hours (Table) 02/02/24 02/02/24 02/02/24 Range/Units 11:36 11:43 20:05 RBC (3.80-5.40) m/uL Hgb (11.4-16.0) gm/dL Hct (34.0-46.0) % MCHC (31.0-37.0) g/dL RDW (11.5-15.5) % Plt Count (150-450) k/uL Carbon Dioxide 37 H (22-30) mmol/L BUN 62 H (7-17) mg/dL Creatinine 1.93 H (0.52-1.04) mg/dL Glucose 125 H (74-99) mg/dL POC Glucose (mg/dL) 136 H 235 H (70-110) mg/dL 02/03/24 02/03/24 02/03/24 Range/Units 05:57 07:50 07:50 RBC 2.78 L (3.80-5.40) m/uL Hgb 7.7 L (11.4-16.0) gm/dL Hct 25.8 L (34.0-46.0) % MCHC 29.8 L (31.0-37.0) g/dL RDW 17.3 H (11.5-15.5) % Plt Count 100 L (150-450) k/uL Carbon Dioxide 36 H (22-30) mmol/L BUN 52 H (7-17) mg/dL Creatinine 1.60 H (0.52-1.04) mg/dL Glucose (74-99) mg/dL POC Glucose (mg/dL) 128 H (70-110) mg/dL
--- NOTE | 2024-02-03 16:45 | P.PN ---
Subjective Progress Note Date: 02/03/24 Patient is a 74-year-old white female with past medical history significant for coronary artery disease with previous CABG, atrial fibrillation, hyperlipidemia, hypertension, hypothyroidism, diabetes mellitus, CKD stage III, obstructive sleep apnea with home CPAP, chronic hypoxemic respiratory failure, among other things. Patient's primary care provider is Dr. Cruz. Also follows in the pulmonary office with Dr. Lainez for management of her obstructive sleep apnea, maintained on APAP machine pressures of 4/20 cm of water. Patient presented to the emergency room yesterday morning and some respiratory distress. She was noted to be hypoxic. Initially placed on BiPAP with settings of 12/5 and FiO2 of 40%. Patient states that her shortness of breath has progressively been worsening over the last week. This is associated with increased lower extremity swelling. She states that she has been taking her Lasix as ordered, twice a day, but has not been peeing as much is normal. Denies any other urinary symptoms. Denies any chest pain. She denies any infectious-like symptoms such as fever, cough, sputum production. Chest x-ray done on arrival cardiomegaly with mild to moderate central vascular congestion. Suspect CHF exacerbation/fluid overload. NT proBNP is 9500. She is bradycardic. EKG demonstrating sinus bradycardia with RBBB pattern. Blood pressure is normotensive. CBC: WBC count 4.7, hemoglobin 7.5, hematocrit 25.4, platelets 105. CMP: Sodium 141, potassium 5.4, chloride 105, serum bicarb 29, BUN 75, creatinine 2.73, glucose 157. Lactic 1.4. LFTs not elevated. Troponin less than 0.012. She is currently being monitored on the cardiac unit. 02/01/2024, I am seeing the patient for a follow-up. Patient is doing well as the patient is being diuresed with IV Lasix 40 mg every 24 hours. Producing adequate urine output and the patient's fluid balance is negative and there is improvement in lower extremity edema. Lasix dose was switched from twice a day to once a day. BUN is 69 with a creatinine of 2.35 and a potassium level of 4.9 discussed 3.8 with a hemoglobin of 7.5. Remains on oxygen at 3 L with a pulse ox of 94%. No other complaints otherwise for now. Clinically and hemodynamically stable. Echocardiogram was repeated on 01/31/2024 and showed pres erved LV function with an EF of 55 to 60%. Severe RV dilatation and severe pulmonary hypertension and moderate to severe tricuspid regurgitation and severe pulm hypertension. Patient also has moderate aortic stenosis with mild aortic regurgitation. 02/02/2024, the patient is doing extremely well. No significant respiratory distress and the patient is currently on 3 L of oxygen by nasal cannula with a pulse ox of 92%. She is still being diuresed with IV Lasix. Fluid balance is - 2.4 L over the past 24 hours. She is hemodynamically stable. Creatinine is improving is currently down to 1.9 with a BUN of 62. Rest of the electrolytes are stable with a sodium level of 142 and a potassium level of 4.9 and a serum bicarb of 37. The patient is calm and comfortable. She is utilizing a CPAP overnight. She remains on Lasix 40 mg IV every 24 hours. She is also on Levemir insulin 42 units daily and NovoLog sliding scale coverage. IV fluids at KVO. Lower extreme edema is improving. Blood pressure is stable. Hemodynamically stable. She was slightly hypotensive and blood pressure is b eing monitored for now. She does have moderate degree of aortic stenosis and mild aortic regurgitation with a preserved LV function. She has severe pulm hypertension. She is known to have coronary disease with previous bypass surgery. She has A-fib, diabetes mellitus on Levemir insulin and chronic stage III kidney disease. She has also chronic hypertension. 02/03/2024, the patient is being seen for a follow-up. The patient is doing extremely well. No respiratory difficulties. Negative fluid balance over the past 24 hours. The patient was taken off the IV Lasix and the patient is curren tly on oral Bumex 1 mg p.o. twice a day.. No shortness of breath at rest and the respiratory status is stable and lower extremity edema is also improved. The patient's white cell count of 5.6 with a hemoglobin 7.7 and a platelet count of 100. BUN is 52 with a creatinine 1.6 and a sodium levels at 142. Rest of the medications remain unchanged. The patient remains on Levemir insulin 42 units daily and is scale insulin coverage. She remains on Synthroid. She is on amlodipine 5 mg p.o. twice a day for blood pressure control. Oxygen requirements remain stable and the patient is on 3 L of O2 nasal cannula with a pulse ox of 90%. Objective - Vital Signs Vital signs: Vital Signs Temp 97.7 F 02/03/24 08:00 Pulse 74 02/03/24 10:04 Resp 18 02/03/24 10:04 BP 171/74 02/03/24 08:00 Pulse Ox 92 L 02/03/24 08:00 FiO2 40 02/03/24 07:52 Intake & Output 02/02/24 02/03/24 02/03/24 18:59 06:59 18:59 Intake Total 540 550 118 Output Total 1150 650 Balance 540 -600 -532 Weight 141.6 kg Intake: IV 10 Invasive Line 1 10 Oral 540 540 118 Output: Urine 1150 650 Other: Voiding Method External Catheter External Catheter External Catheter # Voids 1 - Exam GENERAL EXAM: Alert, 74-year-old morbidly obese white female, comfortable in no apparent distress. BiPAP on standby at bedside HEAD: Normocephalic and atraumatic EYES: Normal reaction of pupils, equal size. NOSE: Clear with pink turbinates. THROAT: No erythema or exudates. NECK: No masses, no JVD. CHEST: No chest wall deformity. LUNGS: Equal air entry with bibasilar inspiratory crackles. On 3 L/min nasal cannula. No conversational dyspnea or accessory muscle use.. CVS: S1 and S2 normal with soft systolic murmur, regular rhythm. No other extra heart sounds. Bradycardic, rate 44 bpm. ABDOMEN: No hepatosplenomegaly, active bowel sounds, no guarding or rigidity. SPINE: No scoliosis or deformity SKIN: No rashes CENTRAL NERVOUS SYSTEM: No focal deficits, tone is normal in all 4 extremities. EXTREMITIES: There bilateral 3+ pitting lower extremity edema. No clubbing, or cyanosis. Peripheral pulses are intact. - Labs CBC & Chem 7: 02/03/24 07:50 02/03/24 07:50 Labs: Abnormal Lab Results - Last 24 Hours (Table) 02/02/24 02/02/24 02/02/24 Range/Units 11:36 11:43 20:05 RBC (3.80-5.40) m/uL Hgb (11.4-16.0) gm/dL Hct (34.0-46.0) % MCHC (31.0-37.0) g/dL RDW (11.5-15.5) % Plt Count (150-450) k/uL Carbon Dioxide 37 H (22-30) mmol/L BUN 62 H (7-17) mg/dL Creatinine 1.93 H (0.52-1.04) mg/dL Glucose 125 H (74-99) mg/dL POC Glucose (mg/dL) 136 H 235 H (70-110) mg/dL 02/03/24 02/03/24 02/03/24 Range/Units 05:57 07:50 07:50 RBC 2.78 L (3.80-5.40) m/uL Hgb 7.7 L (11.4-16.0) gm/dL Hct 25.8 L (34.0-46.0) % MCHC 29.8 L (31.0-37.0) g/dL RDW 17.3 H (11.5-15.5) % Plt Count 100 L (150-450) k/uL Carbon Dioxide 36 H (22-30) mmol/L BUN 52 H (7-17) mg/dL Creatinine 1.60 H (0.52-1.04) mg/dL Glucose (74-99) mg/dL POC Glucose (mg/dL) 128 H (70-110) mg/dL Assessment and Plan Assessment: Acute on chronic hypoxemic respiratory failure, suspected secondary to exace rbation of heart failure with preserved ejection fraction, chest x-ray demonstrating cardiomegaly with moderate central vascular congestion. Patient has had increased lower extremity edema over the last week. NT proBNP 9500. The patient is currently stable on 2 L of oxygen nasal cannula the patient producing excellent urine outputthe patient is being 40 mg every 12 hours. Fluid balance is negative. Bradycardia, currently asymptomatic Chronic diastolic heart failure, most recent echocardiogram available from 12/17/2022 estimates a preserved left ventricular ejection fraction of 55%, mode rate mitral regurgitation, severe pulmonary hypertension, and severe tricuspid regurgitation. History of valvular heart disease, as mentioned above Chronic hypoxemic respiratory failure, normally maintained on 3 L/min nasal cannula at home Obstructive sleep apnea, maintained on APAP machine with minimum pressure of 4 and maximum of 20 cm H2O History of GI bleed History of gastritis History of atrial fibrillation, not currently on any anticoagulation, secondary to above History of coronary artery disease with previous CABG History of hypertension History of hyperlipidemia Diabetes mellitus, insulin-dependent, complicated by diabetic neuropathy History of hypothyroidism Morbid obesity, with a BMI 57.6 kg/m Plan: Clinically stable and the patient responded to the treatment. Discontinue IV Lasix and start the patient on Bumex 1 mg p.o. twice a day Continue supplemental oxygen to maintain oxygen saturation of 90% or greater, currently on 2 L of oxygen by nasal cannula. Echo was noted and the patient has preserved LV function with severe pulm hypertension And the patient has also moderate degree of aortic stenosis with mild aortic regurgitation, severe tricuspid regurgitation and severe pulm hypertension with dilatation of the RA and RV. Cardiology is following Monitor renal function and electrolytes as the patient is being diuresed. Fluid balance is negative. Patient is being monitored on the telemetry unit. We will continue to follow
[2024-02-03 17:02] LABS: Glucose,Whole Blood 167 mg/dL (70-110)
[2024-02-03] MEDS: BUMETANIDE 1 MG TAB PO SCH (17:09)
[2024-02-03 20:08] LABS: Glucose,Whole Blood 202 mg/dL (70-110)
[2024-02-03] MEDS: amLODIPine 5 MG TAB PO SCH (20:30)
[2024-02-04 06:13] LABS: Glucose,Whole Blood 103 mg/dL (70-110)
--- NOTE | 2024-02-04 10:04 | P.PN ---
Subjective Progress Note Date: 02/03/24 Principal diagnosis: acute exacerbation of her chronic COPD, congestive heart failure patient presented to the hospital with exertional dyspnea orthopnea, known history of coronary artery disease, known history of chronic obstructive pulmonary disease, patient is currently requiring oxygen 2-3 L per nasal cannula Is otherwise awake alert oriented 3 vital signs are currently stable patient is afebrile Objective - Vital Signs Vital signs: Vital Signs Temp 97.9 F 02/04/24 07:53 Pulse 70 02/04/24 07:53 Resp 18 02/04/24 07:53 BP 133/62 02/04/24 07:53 Pulse Ox 92 L 02/04/24 07:53 FiO2 40 02/04/24 04:46 Intake & Output 02/03/24 02/04/24 02/04/24 18:59 06:59 18:59 Intake Total 358 300 232 Output Total 950 550 300 Balance -592 -250 -68 Weight 126.5 kg Intake: IV 20 10 Invasive Line 1 10 Invasive Line 2 10 10 Oral 358 280 222 Output: Urine 950 550 300 Other: Voiding Method External Catheter External Catheter External Catheter # Voids 1 - Exam General: [Patient awake, alert and oriented times 3. Patient in no acute distress.] morbidly obese HEENT: [PERRL. EOMI. No pharyngeal erythema or exudate.] Neck: [No adenopathy.] Cardiac: [Heart regular in rate and rhythm. No S3. No S4. No clicks, rubs. No murmur. midline surgical scar Lungs: diminished breath sounds with wheezes Abdomen: [No mass. No organomegaly. Bowel sounds presnt and normoactive in all 4 quadrants.] Extremes: [No edema no cyanosis no claudication normal pulses] : normal female genitalia Musculoskeletal: [No joint erythema, edema or tenderness.] Skin: [No rash.] Neurologic: [No lateralizing deficits. CN II - XII grossly intact.] Lymphatic: [No adenopathy.] - Labs CBC & Chem 7: 02/03/24 07:50 02/03/24 07:50 Labs: Abnormal Lab Results - Last 24 Hours (Table) 02/03/24 02/03/24 02/03/24 Range/Units 11:23 16:59 20:07 POC Glucose (mg/dL) 129 H 167 H 202 H (70-110) mg/dL Microbiology - Last 24 Hours (Table) 02/01/24 20:33 Urine Culture - Preliminary Urine,Voided Gram Neg Bacilli Assessment and Plan (1) Acquired hypothyroidism Current Visit: No Status: Acute Code(s): E03.9 - HYPOTHYROIDISM, UNSPECIFIED SNOMED Code(s): 763132182 (2) Acute on chronic anemia Current Visit: No Status: Acute Code(s): D64.9 - ANEMIA, UNSPECIFIED SNOMED Code(s): 670131402 (3) Acute on chronic diastolic (congestive) heart failure Current Visit: No Status: Acute Code(s): I50.33 - ACUTE ON CHRONIC DIASTOLIC (CONGESTIVE) HEART FAILURE SNOMED Code(s): 435811236 (4) Acute on chronic respiratory failure with hypoxemia Current Visit: No Status: Acute Code(s): J96.21 - ACUTE AND CHRONIC RESPIRATORY FAILURE WITH HYPOXIA SNOMED Code(s): 88595241461088289 (5) CHF exacerbation Current Visit: No Status: Acute Code(s): I50.9 - HEART FAILURE, UNSPECIFIED SNOMED Code(s): 678063667 (6) CKD (chronic kidney disease) stage 3, GFR 30-59 ml/min Current Visit: No Status: Acute Code(s): N18.30 - CHRONIC KIDNEY DISEASE, STAGE 3 UNSPECIFIED SNOMED Code(s): 834419392 (7) Chronic diastolic (congestive) heart failure Current Visit: No Status: Acute Code(s): I50.32 - CHRONIC DIASTOLIC (CONGESTIVE) HEART FAILURE SNOMED Code(s): 996943534 Plan: aggressive diuresis BiPAP significant improvement in respiratory efforts Significant reduction in pulmonary edema Cardiology consult Pulmonary consult Manipulation of meds
--- NOTE | 2024-02-04 11:35 | P.PN ---
Subjective Progress Note Date: 02/04/24 Patient is being followed for acute kidney injury on chronic kidney disease secondary to cardiorenal syndrome. She was seen at bedside. She states that she is feeling good today. Nonoliguric. Vitals are stable. General: No acute distress. HEENT: On 3 L nasal cannula. Lungs: No audible rhonchi, wheezes, or rales. Heart: Rate and rhythm are regular. Murmurs of aortic stenosis, mitral regurgitation, and tricuspid regurgitation present. Extremities: No edema present. Objective - Vital Signs Vital signs: Vital Signs Temp 97.9 F 02/04/24 07:53 Pulse 70 02/04/24 07:53 Resp 18 02/04/24 07:53 BP 133/62 02/04/24 07:53 Pulse Ox 92 L 02/04/24 07:53 FiO2 40 02/04/24 04:46 Intake & Output 02/03/24 02/04/24 02/04/24 18:59 06:59 18:59 Intake Total 358 300 232 Output Total 950 550 300 Balance -592 -250 -68 Weight 126.5 kg Intake: IV 20 10 Invasive Line 1 10 Invasive Line 2 10 10 Oral 358 280 222 Output: Urine 950 550 300 Other: Voiding Method External Catheter External Catheter External Catheter # Voids 1 - Labs CBC & Chem 7: 02/03/24 07:50 02/04/24 12:09 Labs: Abnormal Lab Results - Last 24 Hours (Table) 02/03/24 02/03/24 02/03/24 Range/Units 07:50 11:23 16:59 Carbon Dioxide 36 H (22-30) mmol/L BUN 52 H (7-17) mg/dL Creatinine 1.60 H (0.52-1.04) mg/dL POC Glucose (mg/dL) 129 H 167 H (70-110) mg/dL 02/03/24 Range/Units 20:07 Carbon Dioxide (22-30) mmol/L BUN (7-17) mg/dL Creatinine (0.52-1.04) mg/dL POC Glucose (mg/dL) 202 H (70-110) mg/dL Microbiology - Last 24 Hours (Table) 02/01/24 20:33 Urine Culture - Preliminary Urine,Voided Gram Neg Bacilli Assessment and Plan Assessment: 1. Acute kidney injury secondary to ACN secondary to cardiorenal syndrome. Renal function improving. No hydronephrosis noted on kidney ultrasound. 2. Chronic kidney disease stage IIIb with baseline creatinine 1.5-1.6 secondary to nephrosclerosis and cardiorenal syndrome. 3. Acute on chronic diastolic CHF with moderate aortic stenosis, moderate mitral regurgitation, severe tricuspid regurgitation, and pulmonary h ypertension. 4. Volume overload. Improving with diuresis. 5. Hyperkalemia secondary to chronic kidney disease and potassium supplementation. Improved. 6. Diabetes mellitus. 7. Coronary artery disease status post CABG. 8. Anemia. Iron deficiency noted. Plan: Maintain IV Lasix. Low-salt diet and 1500 cc fluid restriction. Maintain IV iron. Continue to monitor renal function. Patient seen and examined independently with resident. Agree with current assessment and plan as outlined.
[2024-02-04 11:54] LABS: Glucose,Whole Blood 161 mg/dL (70-110)
--- NOTE | 2024-02-04 12:19 | P.DS ---
Providers Date of admission: 01/30/24 07:21 Expected date of discharge: 02/05/24 Attending physician: Marcelino Cruz Consults: 01/30/24 07:18 Consult Physician Routine Consulting Provider: Jonathan Lewis Consult Reason/Comments: Bipap patient/CHF exacerbation Do you want consulting provider notified?: Yes Consult Physician Routine Consulting Provider: Gus Pascal Consult Reason/Comments: CHF exacerbation Do you want consulting provider notified?: Yes 01/31/24 12:50 Consult Physician Routine Consulting Provider: Brando Lucas Consult Reason/Comments: renal failure,CHF Do you want consulting provider notified?: Yes Primary care physician: [facility] Course: 01/30/24 dyspnea, exertional dyspnea patient states it's been quite humid and she had been using her air conditioning sparingly and she her breathing became compromised 01/31/2024 bradycardic, prolonged QT with right bundle branch block. Diuretics, antiarrhythmics discontinued as per cardiology today. Maintained on BiPAP last night. Reports she is unable to take oral anticoagulation, taken off of her Eliquis, due to symptomatic GI bleeds requiring multiple packed RBC transfusions as per PCP. Denies chest pain, palpitations or shortness of breath. Complains of stuffy nose, no increased cough denies lightheadedness, dizziness or focal deficits. TSH 16.2, free T4 normal, attributed to being on the oral amiodarone; levothyroxine increased as per PCP. 02/01/2024 yesterday both amiodarone and Toprol discontinued ,bradycardia improving, heart rate currently in the 50s. received 1 unit of packed RBCs yesterday for hemoglobin of 7.1, hemoglobin currently up to 7.5, reports feels better today. Echo completed yesterday reported technically difficult study ,n ormal LV function, EF 55 to 60%, severe tricuspid regurgitation and severe pulmonary hypertension, mild to moderate mitral regurgitation and mild to moderate mitral stenosis, moderate aortic stenosis with mild aortic regurgitation.received Lokelma, for potassium 5.5. Maintained on IV push Lasix, bicarb 37, BUN 69, creatinine 2.35 . Denies chest pain, palpitations or increase in shortness of breath. Hemoglobin A1c 6.2. 02/02/2024 diuresing well on Lasix IV push with 24-hour I&O inaccurate. Renal function improving, creatinine decreased to 1.93. Blood sugars better controlled. Denies chest pain, palpitations or increase in shortness of breath. Maintaining O2 sats in the low 90s on 3 L nasal cannula; wears BiPAP at night. Afebrile. 02/03/2024: Patient was switched from IV Lasix to oral Bumex. She remained stable is doing well. February 04, 2024: Patient is doing well with the oral Bumex. She be discharged home once cleared by cardiology. 02/05/2024: Yesterday patient had increased pain to her right ankle and foot. When staff got her up she was unable to walk to this pain. Uric acid found to be significantly elevated indicating a exacerbation of gout. She was started on colchicine and given steroids. She be given steroids again today and then she will be discharged home. Plan - Discharge Summary Discharge Rx Participant: Yes New Discharge Prescriptions: New Bumetanide [BUMEX] 1 mg PO BID@0900,1600 30 Days #60 tab carvediloL [Coreg] 6.25 mg PO BID-W/MEALS 30 Days #60 tab Losartan [Cozaar] 12.5 mg PO DAILY 30 Days #15 tab amLODIPine [Norvasc] 5 mg PO BID 30 Days #60 tab Continue Atorvastatin [Lipitor] 40 mg PO HS Isosorbide Mononitrate [Isosorbide Mononitrate ER] 30 mg PO DAILY Oxybutynin Chloride 5 mg PO DAILY Mirtazapine [Remeron] 15 mg PO HS Insulin Glargine,Hum.rec.anlog [Toujeo Solostar] 14 units SQ BID Acetaminophen Tab [Tylenol] 650 mg PO Q6H PRN PRN Reason: Pain Levothyroxine Sodium [Synthroid] 50 mcg PO DAILY Sertraline [Zoloft] 100 mg PO BID Gabapentin [Neurontin] 300 mg PO BID #6 cap HYDROcodone/APAP 10-325MG [[place] 10-325] 1 tab PO Q8H PRN #9 tab PRN Reason: Pain INSULIN ASPART (NovoLOG) [NovoLOG (formulary)] 20 unit SQ BID Pantoprazole [Protonix] 40 mg PO DAILY Discontinued Amiodarone [Cordarone] 200 mg PO DAILY Apixaban [Eliquis] 2.5 mg PO BID Potassium Chloride [Potassium Chloride ER (K-Dur GEQ)] 20 meq PO DAILY Furosemide [Lasix] 40 mg PO BID@0900,1600 #180 tab Metoprolol Succinate (ER) [Toprol XL] 25 mg PO DAILY #90 tab metOLazone 2.5 mg PO MOFR Discharge Medication List Atorvastatin [Lipitor] 40 mg PO HS 08/10/16 [History] Isosorbide Mononitrate [Isosorbide Mononitrate ER] 30 mg PO DAILY 08/10/16 [History] Oxybutynin Chloride 5 mg PO DAILY 08/10/16 [History] Mirtazapine [Remeron] 15 mg PO HS 04/12/22 [History] Acetaminophen Tab [Tylenol] 650 mg PO Q6H PRN 05/08/22 [History] Levothyroxine Sodium [Synthroid] 50 mcg PO DAILY 12/17/22 [History] Sertraline [Zoloft] 100 mg PO BID 12/17/22 [History] Gabapentin [Neurontin] 300 mg PO BID #6 cap 09/24/23 [Rx] HYDROcodone/APAP 10-325MG [[place] 10-325] 1 tab PO Q8H PRN #9 tab 09/24/23 [Rx] INSULIN ASPART (NovoLOG) [NovoLOG (formulary)] 20 unit SQ BID 01/30/24 [History] Insulin Glargine,Hum.rec.anlog [Toujeo Solostar] 14 units SQ BID 01/30/24 [History] Pantoprazole [Protonix] 40 mg PO DAILY 01/30/24 [History] Bumetanide [BUMEX] 1 mg PO BID@0900,1600 30 Days #60 tab 02/04/24 [Rx] Losartan [Cozaar] 12.5 mg PO DAILY 30 Days #15 tab 02/04/24 [Rx] amLODIPine [Norvasc] 5 mg PO BID 30 Days #60 tab 02/04/24 [Rx] carvediloL [Coreg] 6.25 mg PO BID-W/MEALS 30 Days #60 tab 02/04/24 [Rx] Follow up Appointment(s)/Referral(s): Bryant Weller MD [STAFF PHYSICIAN] - 1 Week Marcelino Cruz Jr, DO [Primary Care Provider] - 1-2 days Brando Lucas DO [STAFF PHYSICIAN] - 1 Week Jerry Lainez MD [STAFF PHYSICIAN] - 1 Week Patient Instructions/Handouts: Heart Failure (DC), COPD (Chronic Obstructive Pulmonary Disease) (DC)
[2024-02-04] MEDS: methylPREDNISolone SOD SUCCI 40 MG/ML 1 ML VIAL IV STA (12:30)
[2024-02-04 12:31] LABS: African American GFR (CKD) 36 (>60 ml/min/1.73 sqM); Blood Urea Nitrogen 49 mg/dL (7-17); Calcium 8.9 mg/dL (8.4-10.2); Chloride 98 mmol/L (98-107); Glucose 142 mg/dL (74-99); Non-African American GFR(CKD) 31 (>60 ml/min/1.73 sqM); Potassium 4.3 mmol/L (3.5-5.1); Sodium 141 mmol/L (137-145); Uric Acid 9.8 mg/dL (3.7-7.4)
[2024-02-04 12:38] LABS: Anion Gap 2 mmol/L
[2024-02-04 12:40] LABS: Carbon Dioxide 41 mmol/L (22-30)
--- NOTE | 2024-02-04 14:22 | P.PN ---
Subjective Progress Note Date: 02/04/24 Patient is a 74-year-old white female with past medical history significant for coronary artery disease with previous CABG, atrial fibrillation, hyperlipidemia, hypertension, hypothyroidism, diabetes mellitus, CKD stage III, obstructive sleep apnea with home CPAP, chronic hypoxemic respiratory failure, among other things. Patient's primary care provider is Dr. Cruz. Also follows in the pulmonary office with Dr. Lainez for management of her obstructive sleep apnea, maintained on APAP machine pressures of 4/20 cm of water. Patient presented to the emergency room yesterday morning and some respiratory distress. She was noted to be hypoxic. Initially placed on BiPAP with settings of 12/5 and FiO2 of 40%. Patient states that her shortness of breath has progressively been worsening over the last week. This is associated with increased lower extremity swelling. She states that she has been taking her Lasix as ordered, twice a day, but has not been peeing as much is normal. Denies any other urinary symptoms. Denies any chest pain. She denies any infectious-like symptoms such as fever, cough, sputum production. Chest x-ray done on arrival cardiomegaly with mild to moderate central vascular congestion. Suspect CHF exacerbation/fluid overload. NT proBNP is 9500. She is bradycardic. EKG demonstrating sinus bradycardia with RBBB pattern. Blood pressure is normotensive. CBC: WBC count 4.7, hemoglobin 7.5, hematocrit 25.4, platelets 105. CMP: Sodium 141, potassium 5.4, chloride 105, serum bicarb 29, BUN 75, creatinine 2.73, glucose 157. Lactic 1.4. LFTs not elevated. Troponin less than 0.012. She is currently being monitored on the cardiac unit. 02/01/2024, I am seeing the patient for a follow-up. Patient is doing well as the patient is being diuresed with IV Lasix 40 mg every 24 hours. Producing adequate urine output and the patient's fluid balance is negative and there is improvement in lower extremity edema. Lasix dose was switched from twice a day to once a day. BUN is 69 with a creatinine of 2.35 and a potassium level of 4.9 discussed 3.8 with a hemoglobin of 7.5. Remains on oxygen at 3 L with a pulse ox of 94%. No other complaints otherwise for now. Clinically and hemodynamically stable. Echocardiogram was repeated on 01/31/2024 and showed pres erved LV function with an EF of 55 to 60%. Severe RV dilatation and severe pulmonary hypertension and moderate to severe tricuspid regurgitation and severe pulm hypertension. Patient also has moderate aortic stenosis with mild aortic regurgitation. 02/02/2024, the patient is doing extremely well. No significant respiratory distress and the patient is currently on 3 L of oxygen by nasal cannula with a pulse ox of 92%. She is still being diuresed with IV Lasix. Fluid balance is - 2.4 L over the past 24 hours. She is hemodynamically stable. Creatinine is improving is currently down to 1.9 with a BUN of 62. Rest of the electrolytes are stable with a sodium level of 142 and a potassium level of 4.9 and a serum bicarb of 37. The patient is calm and comfortable. She is utilizing a CPAP overnight. She remains on Lasix 40 mg IV every 24 hours. She is also on Levemir insulin 42 units daily and NovoLog sliding scale coverage. IV fluids at KVO. Lower extreme edema is improving. Blood pressure is stable. Hemodynamically stable. She was slightly hypotensive and blood pressure is b eing monitored for now. She does have moderate degree of aortic stenosis and mild aortic regurgitation with a preserved LV function. She has severe pulm hypertension. She is known to have coronary disease with previous bypass surgery. She has A-fib, diabetes mellitus on Levemir insulin and chronic stage III kidney disease. She has also chronic hypertension. 02/03/2024, the patient is being seen for a follow-up. The patient is doing extremely well. No respiratory difficulties. Negative fluid balance over the past 24 hours. The patient was taken off the IV Lasix and the patient is curren tly on oral Bumex 1 mg p.o. twice a day.. No shortness of breath at rest and the respiratory status is stable and lower extremity edema is also improved. The patient's white cell count of 5.6 with a hemoglobin 7.7 and a platelet count of 100. BUN is 52 with a creatinine 1.6 and a sodium levels at 142. Rest of the medications remain unchanged. The patient remains on Levemir insulin 42 units daily and is scale insulin coverage. She remains on Synthroid. She is on amlodipine 5 mg p.o. twice a day for blood pressure control. Oxygen requirements remain stable and the patient is on 3 L of O2 nasal cannula with a pulse ox of 90%. 02/04/2024, the patient is being seen for a follow up., Comfortable with no specific complaints. Maintained on Bumex 1 mg p.o. twice a day. Adequate urine output. The serum bicarb is at 41 and the patient has developed some metabolic alkalosis. Sodium level is 141 with a potassium level of 4.3. The metabolic alkalosis is essentially related to diuretics. Rest of the medication may not change the patient's status is stable currently on 3 L with a pulse ox of 91%. No other significant events overnight. Objective - Vital Signs Vital signs: Vital Signs Temp 97.9 F 02/04/24 07:53 Pulse 70 02/04/24 07:53 Resp 18 02/04/24 07:53 BP 133/62 02/04/24 07:53 Pulse Ox 92 L 02/04/24 07:53 FiO2 40 02/04/24 04:46 Intake & Output 02/03/24 02/04/24 02/04/24 18:59 06:59 18:59 Intake Total 358 300 232 Output Total 950 550 300 Balance -592 -250 -68 Weight 126.5 kg Intake: IV 20 10 Invasive Line 1 10 Invasive Line 2 10 10 Oral 358 280 222 Output: Urine 950 550 300 Other: Voiding Method External Catheter External Catheter External Catheter # Voids 1 - Exam GENERAL EXAM: Alert, 74-year-old morbidly obese white female, comfortable in no apparent distress. BiPAP on standby at bedside HEAD: Normocephalic and atraumatic EYES: Normal reaction of pupils, equal size. NOSE: Clear with pink turbinates. THROAT: No erythema or exudates. NECK: No masses, no JVD. CHEST: No chest wall deformity. LUNGS: Equal air entry with bibasilar inspiratory crackles. On 3 L/min nasal cannula. No conversational dyspnea or accessory muscle use.. CVS: S1 and S2 normal with soft systolic murmur, regular rhythm. No other extra heart sounds. Bradycardic, rate 44 bpm. ABDOMEN: No hepatosplenomegaly, active bowel sounds, no guarding or rigidity. SPINE: No scoliosis or deformity SKIN: No rashes CENTRAL NERVOUS SYSTEM: No focal deficits, tone is normal in all 4 extremities. EXTREMITIES: There bilateral 3+ pitting lower extremity edema. No clubbing, or cyanosis. Peripheral pulses are intact. - Labs CBC & Chem 7: 02/03/24 07:50 02/04/24 12:09 Labs: Abnormal Lab Results - Last 24 Hours (Table) 02/03/24 02/03/24 02/03/24 Range/Units 11:23 16:59 20:07 POC Glucose (mg/dL) 129 H 167 H 202 H (70-110) mg/dL Microbiology - Last 24 Hours (Table) 02/01/24 20:33 Urine Culture - Preliminary Urine,Voided Gram Neg Bacilli Assessment and Plan Assessment: Acute on chronic hypoxemic respiratory failure, suspected secondary to exacerbation of heart failure with preserved ejection fraction, chest x-ray demonstrating cardiomegaly with moderate central vascular congestion. Patient has had increased lower extremity edema over the last week. NT proBNP 9500. The patient is currently stable on 2 L of oxygen nasal cannula the patient producing excellent urine output, currently on Bumex 1 mg p.o. twice a day.. F luid balance is negative. Bradycardia, currently asymptomatic Chronic diastolic heart failure, most recent echocardiogram available from 12/17/2022 estimates a preserved left ventricular ejection fraction of 55%, moderate mitral regurgitation, severe pulmonary hypertension, and severe tricuspid regurgitation. History of valvular heart disease, as mentioned above Chronic hypoxemic respiratory failure, normally maintained on 3 L/min nasal cannula at home Obstructive sleep apnea, maintained on APAP machine with minimum pressure of 4 and maximum of 20 cm H2O History of GI bleed History of gastritis History of atrial fibrillation, not currently on any anticoagulation, secondary to above History of coronary artery disease with previous CABG History of hypertension History of hyperlipidemia Diabetes mellitus, insulin-dependent, complicated by diabetic neuropathy History of hypothyroidism Morbid obesity, with a BMI 57.6 kg/m chronic metabolic alkalosis with a send worsening secondary to diuretic use. Plan: Clinically stable and the patient responded to the treatment. Discontinue IV Lasix and start the patient on Bumex 1 mg p.o. twice a day Will give the patient Diamox 5 mg IV x 2 doses and monitor the electrolytes Continue supplemental oxygen to maintain oxygen saturation of 90% or greater, currently on 2 L of oxygen by nasal cannula. Echo was noted and the patient has preserved LV function with severe pulm hypertension And the patient has also moderate degree of aortic stenosis with mild aortic regurgitation, severe tricuspid regurgitation and severe pulm hyper tension with dilatation of the RA and RV. Cardiology is following Monitor renal function and electrolytes as the patient is being diuresed. Fluid balance is negative. Patient is being monitored on the telemetry unit. We will continue to follow
--- NOTE | 2024-02-04 14:40 | P.PN ---
Subjective Progress Note Date: 02/04/24 Consult reason: congestive heart failure, shortness of breath Chief complaint: sob History of present illness: History of present illness: Patient is a pleasant 74-year-old female with significant past medical history of CAD with prior CABG, CKD, severe pulmonary hypertension, diabetes, hyperlipidemia, a-fib, and history of recurrent GI bleed who presents with worsening shortness of breath. She does follow in the office with Dr. Weller. Reports that she has been having worsening shortness of breath. She is currently on BiPAP. She denies having any chest pain or pressure. Chest x-ray shows mildmoderate central vascular congestion. EKG shows sinus bradycardia 51 bpm, right bundle branch block. Telemetry does show heart rates in the 30s40s. Labs reviewed: Hemoglobin 7.5, potassium 5.4, creatinine 2.3, troponin negative x 1, BNP 9500. She does report that her shortness of breath is slightly better at this morning on BiPAP. 01/30 Patient is seen today in follow-up. She has been maintained on IV Lasix 40 mg every 12 hours. There is a concern that patient had heart rate in the 20s and 30s during the night, upon review mostly in the 30s, prolonged QT right bundle branch block. Patient states that she feels like she is getting a cold. She complains of phlegm production. She denies any increased coughing. Patient states that her breathing has been improved since she arrived to the hospital. Patient apparently has been off anticoagulation for some time due to requirement of multiple transfusions. 01/31 Patient is seen today in follow-up. She is been in a sinus rhythm in the mid 50s. Blood pressure 152/61, pulse ox 94% on 3 L nasal cannula. Repeat blood work reveals hemoglobin 7.5, platelet count 107. Sodium 142, potassium 4.9, BUN 69 creatinine 2.35. Yesterday we had discontinued IV Lasix and metolazone and subsequently pulmonary medicine has resumed IV Lasix. Heart rate is improved after the discontinuance of amiodarone and Toprol XL. 02/01 Blood pressure 168/62, heart rate 54, pulse ox 94% on 3 L. Patient was on BiPAP during the night. Telemetry shows a heart rate of atrial fibrillation in the 60s. We have put amiodarone and beta-josh on hold due to bradycardia but we will plan to most likely resume beta-josh at a lower dose. Repeat blood work reveals BUN 62 creatinine 1.93. 02/02 No new concerns from the patient. She states her breathing is stable today. She is making urine. She is on IV Lasix. Blood pressure 151/66, heart rate 79, pulse ox 90% on 3 L nasal cannula. Patient has a negative fluid balance. Repeat blood work reveals hemoglobin 7.7, platelet count 100. BUN 52 creatinine 1.6. Patient's bradycardia is recovering. 02/03 Patient is seen today in follow-up. Yesterday, patient was started on Coreg 6.25 mg twice daily and losartan 12.5 mg daily. IV Lasix was transitioned to oral Bumex once daily. Amlodipine 5 mg was increased frequency to twice daily. Blood pressure 141/65, heart rate 68, pulse ox 91% on 3 L nasal cannula. Repeat blood work reveals sodium 141, potassium 4.3, BUN 49 and creatinine 1.62. PHYSICAL EXAMINATION: This is a 74-year-old female in no apparent distress at the time of my examination. HEENT: Head is atraumatic, normocephalic. Pupils are equal, round. Sclerae anicteric. Conjunctivae are clear. Mucous membranes of the mouth are moist. Neck is supple. There is no jugular venous distention. No carotid bruit is heard. CHEST EXAMINATION: Lungs are diminished throughout. No chest wall tenderness is noted on palpation or with deep breathing. HEART EXAMINATION: Heart regular rate and rhythm. S1, S2 heard. Systolic murmurs, gallops or rub. ABDOMEN: Soft, nontender. Bowel sounds are heard. obese. EXTREMITIES: 2+ peripheral pulses with 1+ peripheral edema and no calf tenderness noted. NEUROLOGIC EXAMINATION: Patient is awake, alert and oriented x3. IMPRESSION AND PLAN: CAD status post CABG in 1996 History of GI bleed Severe pulmonary hypertension Valvular heart disease including moderate MR, severe TR, mild Congestive heart failure with preserved EF, acute on chronic Chronic kidney disease Hypertension Hyperlipidemia Diabetes Shortness of breath Dismal atrial fibrillation currently in sinus bradycardia Bradycardia, BRASH Chronic hypoxic respiratory failure on home O2 Obstructive sleep apnea on CPAP Anemia of chronic disease, status post iron infusion PLAN: Continue patient on amlodipine 5 mg twice daily, atorvastatin 40 mg at bedtime, Bumex 1 mg twice daily, Coreg 6.25 mg twice daily, Imdur 30 mg daily, losartan 12.5 mg daily. Continue to hold metolazone Patient is cleared for discharge from cardiology and may follow-up in the office with Dr. Weller in 1 to 2 weeks. Nurse practitioner note has been reviewed, I agree with documented findings and plan of care. Patient was seen and examined. Objective - Vital Signs Vital signs: Vital Signs Temp 98.4 F 02/04/24 11:11 Pulse 68 02/04/24 11:11 Resp 18 02/04/24 11:11 BP 141/65 02/04/24 11:11 Pulse Ox 91 L 02/04/24 11:11 FiO2 40 02/04/24 04:46 Intake & Output 02/03/24 02/04/24 02/04/24 18:59 06:59 18:59 Intake Total 358 300 232 Output Total 950 550 300 Balance -592 -250 -68 Weight 126.5 kg Intake: IV 20 10 Invasive Line 1 10 Invasive Line 2 10 10 Oral 358 280 222 Output: Urine 950 550 300 Other: Voiding Method External Catheter External Catheter External Catheter # Voids 1 - Labs CBC & Chem 7: 02/03/24 07:50 02/04/24 12:09 Labs: Abnormal Lab Results - Last 24 Hours (Table) 02/03/24 02/03/24 02/04/24 Range/Units 16:59 20:07 11:53 POC Glucose (mg/dL) 167 H 202 H 161 H (70-110) mg/dL Microbiology - Last 24 Hours (Table) 02/01/24 20:33 Urine Culture - Final Urine,Voided Klebsiella oxytoca
[2024-02-04] MEDS: methylPREDNISolone SOD SUCCI 125 MG/2 ML VIAL IV STA (16:40)
[2024-02-04 17:07] LABS: Glucose,Whole Blood 249 mg/dL (70-110)
[2024-02-04] MEDS: COLCHICINE 0.6 MG EACH PO SCH (17:48)
[2024-02-04 19:52] LABS: Glucose,Whole Blood 340 mg/dL (70-110)
[2024-02-05 06:06] LABS: Glucose,Whole Blood 300 mg/dL (70-110)
[2024-02-05 11:50] LABS: Glucose,Whole Blood 329 mg/dL (70-110)
--- NOTE | 2024-02-05 12:16 | P.PN ---
Subjective Progress Note Date: 02/05/24 Patient is a 74-year-old white female with past medical history significant for coronary artery disease with previous CABG, atrial fibrillation, hyperlipidemia, hypertension, hypothyroidism, diabetes mellitus, CKD stage III, obstructive sleep apnea with home CPAP, chronic hypoxemic respiratory failure, among other things. Patient's primary care provider is Dr. Cruz. Also follows in the pulmonary office with Dr. Lainez for management of her obstructive sleep apnea, maintained on APAP machine pressures of 4/20 cm of water. Patient presented to the emergency room yesterday morning and some respiratory distress. She was noted to be hypoxic. Initially placed on BiPAP with settings of 12/5 and FiO2 of 40%. Patient states that her shortness of breath has progressively been worsening over the last week. This is associated with increased lower extremity swelling. She states that she has been taking her Lasix as ordered, twice a day, but has not been peeing as much is normal. Denies any other urinary symptoms. Denies any chest pain. She denies any infectious-like symptoms such as fever, cough, sputum production. Chest x-ray done on arrival cardiomegaly with mild to moderate central vascular congestion. Suspect CHF exacerbation/fluid overload. NT proBNP is 9500. She is bradycardic. EKG demonstrating sinus bradycardia with RBBB pattern. Blood pressure is normotensive. CBC: WBC count 4.7, hemoglobin 7.5, hematocrit 25.4, platelets 105. CMP: Sodium 141, potassium 5.4, chloride 105, serum bicarb 29, BUN 75, creatinine 2.73, glucose 157. Lactic 1.4. LFTs not elevated. Troponin less than 0.012. She is currently being monitored on the cardiac unit. 02/01/2024, I am seeing the patient for a follow-up. Patient is doing well as the patient is being diuresed with IV Lasix 40 mg every 24 hours. Producing adequate urine output and the patient's fluid balance is negative and there is improvement in lower extremity edema. Lasix dose was switched from twice a day to once a day. BUN is 69 with a creatinine of 2.35 and a potassium level of 4.9 discussed 3.8 with a hemoglobin of 7.5. Remains on oxygen at 3 L with a pulse ox of 94%. No other complaints otherwise for now. Clinically and hemodynamically stable. Echocardiogram was repeated on 01/31/2024 and showed pres erved LV function with an EF of 55 to 60%. Severe RV dilatation and severe pulmonary hypertension and moderate to severe tricuspid regurgitation and severe pulm hypertension. Patient also has moderate aortic stenosis with mild aortic regurgitation. 02/02/2024, the patient is doing extremely well. No significant respiratory distress and the patient is currently on 3 L of oxygen by nasal cannula with a pulse ox of 92%. She is still being diuresed with IV Lasix. Fluid balance is - 2.4 L over the past 24 hours. She is hemodynamically stable. Creatinine is improving is currently down to 1.9 with a BUN of 62. Rest of the electrolytes are stable with a sodium level of 142 and a potassium level of 4.9 and a serum bicarb of 37. The patient is calm and comfortable. She is utilizing a CPAP overnight. She remains on Lasix 40 mg IV every 24 hours. She is also on Levemir insulin 42 units daily and NovoLog sliding scale coverage. IV fluids at KVO. Lower extreme edema is improving. Blood pressure is stable. Hemodynamically stable. She was slightly hypotensive and blood pressure is b eing monitored for now. She does have moderate degree of aortic stenosis and mild aortic regurgitation with a preserved LV function. She has severe pulm hypertension. She is known to have coronary disease with previous bypass surgery. She has A-fib, diabetes mellitus on Levemir insulin and chronic stage III kidney disease. She has also chronic hypertension. 02/03/2024, the patient is being seen for a follow-up. The patient is doing extremely well. No respiratory difficulties. Negative fluid balance over the past 24 hours. The patient was taken off the IV Lasix and the patient is curren tly on oral Bumex 1 mg p.o. twice a day.. No shortness of breath at rest and the respiratory status is stable and lower extremity edema is also improved. The patient's white cell count of 5.6 with a hemoglobin 7.7 and a platelet count of 100. BUN is 52 with a creatinine 1.6 and a sodium levels at 142. Rest of the medications remain unchanged. The patient remains on Levemir insulin 42 units daily and is scale insulin coverage. She remains on Synthroid. She is on amlodipine 5 mg p.o. twice a day for blood pressure control. Oxygen requirements remain stable and the patient is on 3 L of O2 nasal cannula with a pulse ox of 90%. 02/04/2024, the patient is being seen for a follow up., Comfortable with no specific complaints. Maintained on Bumex 1 mg p.o. twice a day. Adequate urine output. The serum bicarb is at 41 and the patient has developed some metabolic alkalosis. Sodium level is 141 with a potassium level of 4.3. The metabolic alkalosis is essentially related to diuretics. Rest of the medication may not change the patient's status is stable currently on 3 L with a pulse ox of 91%. No other significant events overnight. On 02/05/2024, patient is being seen for a follow-up. Doing well. No specific complaints. She was supposed to get discharged yesterday and the patient developed an acute gouty attack. Based on that, the patient was given IV Solu- Medrol and started on colchicine 0.6 mg p.o. twice daily. The patient remains on Bumex 1 mg p.o. twice daily. No new complaints. Awaiting electrolytes from today. Objective - Vital Signs Vital signs: Vital Signs Temp 98.2 F 02/05/24 08:19 Pulse 68 02/05/24 08:20 Resp 18 02/05/24 08:19 BP 144/54 02/05/24 08:19 Pulse Ox 94 L 02/05/24 09:16 FiO2 40 02/05/24 09:16 Intake & Output 02/04/24 02/05/24 02/05/24 18:59 06:59 18:59 Intake Total 592 123 Output Total 750 700 Balance -158 -700 123 Weight 121 kg Intake: IV 10 5 Invasive Line 2 10 Invasive Line 3 5 Oral 582 118 Output: Urine 750 700 Other: Voiding Method External Catheter External Catheter External Catheter - Exam GENERAL EXAM: Alert, 74-year-old morbidly obese white female, comfortable in no apparent distress. BiPAP on standby at bedside HEAD: Normocephalic and atraumatic EYES: Normal reaction of pupils, equal size. NOSE: Clear with pink turbinates. THROAT: No erythema or exudates. NECK: No masses, no JVD. CHEST: No chest wall deformity. LUNGS: Equal air entry with bibasilar inspiratory crackles. On 3 L/min nasal cannula. No conversational dyspnea or accessory muscle use.. CVS: S1 and S2 normal with soft systolic murmur, regular rhythm. No other extra heart sounds. Bradycardic, rate 44 bpm. ABDOMEN: No hepatosplenomegaly, active bowel sounds, no guarding or rigidity. SPINE: No scoliosis or deformity SKIN: No rashes CENTRAL NERVOUS SYSTEM: No focal deficits, tone is normal in all 4 extremities. EXTREMITIES: There bilateral 3+ pitting lower extremity edema. No clubbing, or cyanosis. Peripheral pulses are intact. - Labs CBC & Chem 7: 02/03/24 07:50 02/04/24 12:09 Labs: Abnormal Lab Results - Last 24 Hours (Table) 02/04/24 02/04/24 02/04/24 Range/Units 11:53 12:09 17:06 Carbon Dioxide 41 H* (22-30) mmol/L BUN 49 H (7-17) mg/dL Creatinine 1.62 H (0.52-1.04) mg/dL Glucose 142 H (74-99) mg/dL POC Glucose (mg/dL) 161 H 249 H (70-110) mg/dL Uric Acid 9.8 H (3.7-7.4) mg/dL 02/04/24 02/05/24 Range/Units 19:50 06:04 Carbon Dioxide (22-30) mmol/L BUN (7-17) mg/dL Creatinine (0.52-1.04) mg/dL Glucose (74-99) mg/dL POC Glucose (mg/dL) 340 H 300 H (70-110) mg/dL Uric Acid (3.7-7.4) mg/dL Microbiology - Last 24 Hours (Table) 02/01/24 20:33 Urine Culture - Final Urine,Voided Klebsiella oxytoca Assessment and Plan Assessment: Acute on chronic hypoxemic respiratory failure, suspected secondary to exacerbation of heart failure with preserved ejection fraction, chest x-ray demonstrating cardiomegaly with moderate central vascular congestion. Patient has had increased lower extremity edema over the last week. NT proBNP 9500. The patient is currently stable on 2 L of oxygen nasal cannula the patient producing excellent urine output, currently on Bumex 1 mg p.o. twice a day.. Fluid balance is negative. Bradycardia, currently asymptomatic Chronic diastolic heart failure, most recent echocardiogram available from 12/17/2022 estimates a preserved left ventricular ejection fraction of 55%, moderate mitral regurgitation, severe pulmonary hypertension, and severe tricuspid regurgitation. History of valvular heart disease, as mentioned above Chronic hypoxemic respiratory failure, normally maintained on 3 L/min nasal cannula at home Obstructive sleep apnea, maintained on APAP machine with minimum pressure of 4 and maximum of 20 cm H2O History of GI bleed History of gastritis History of atrial fibrillation, not currently on any anticoagulation, secondary to above History of coronary artery disease with previous CABG History of hypertension History of hyperlipidemia Diabetes mellitus, insulin-dependent, complicated by diabetic neuropathy History of hypothyroidism Morbid obesity, with a BMI 57.6 kg/m chronic metabolic alkalosis with a send worsening secondary to diuretic use. Acute gout Plan: Clinically stable and the patient responded to the treatment. Continue Bumex 1 mg p.o. twice a day Awaiting labs from today Colchicine for gout and the patient was given IV Solu-Medrol Continue supplemental oxygen to maintain oxygen saturation of 90% or greater, currently on 2 L of oxygen by nasal cannula. Echo was noted and the patient has preserved LV function with severe pulm hypertension And the patient has also moderate degree of aortic stenosis with mild aortic regurgitation, severe tricuspid regurgitation and severe pulm hypertension with dilatation of the RA and RV. Cardiology is following Monitor renal function and electrolytes as the patient is being diuresed. Fluid balance is negative. Patient is being monitored on the telemetry unit. We will continue to follow
[2024-02-05] MEDS: methylPREDNISolone SOD SUCCI 40 MG/ML 1 ML VIAL IV STA (12:27)
--- NOTE | 2024-02-05 12:28 | P.PN ---
Subjective patient is seen for follow-up for acute kidney injury. No significant complaints today. Renal function stable with serum creatinine staying at about 1.6 mg per Objective - Vital Signs Vital signs: Vital Signs Temp 97.8 F 02/05/24 11:02 Pulse 67 02/05/24 11:02 Resp 18 02/05/24 11:02 BP 135/48 02/05/24 11:02 Pulse Ox 92 L 02/05/24 11:02 FiO2 40 02/05/24 09:16 Intake & Output 02/04/24 02/05/24 02/05/24 18:59 06:59 18:59 Intake Total 592 123 Output Total 750 700 Balance -158 -700 123 Weight 121 kg Intake: IV 10 5 Invasive Line 2 10 Invasive Line 3 5 Oral 582 118 Output: Urine 750 700 Other: Voiding Method External Catheter External Catheter External Catheter - Exam patient is awake, comfortable, no acute distress. Examination of the heart S1 and S2 Examination of the lungs bilateral breath sounds are Abdomen is soft nontender Examination of lower extremities shows edema trace bilaterally [employer] exam grossly intact - Labs CBC & Chem 7: 02/03/24 07:50 02/04/24 12:09 Labs: Abnormal Lab Results - Last 24 Hours (Table) 02/04/24 02/04/24 02/04/24 Range/Units 12:09 17:06 19:50 Carbon Dioxide 41 H* (22-30) mmol/L BUN 49 H (7-17) mg/dL Creatinine 1.62 H (0.52-1.04) mg/dL Glucose 142 H (74-99) mg/dL POC Glucose (mg/dL) 249 H 340 H (70-110) mg/dL Uric Acid 9.8 H (3.7-7.4) mg/dL 02/05/24 02/05/24 Range/Units 06:04 11:48 Carbon Dioxide (22-30) mmol/L BUN (7-17) mg/dL Creatinine (0.52-1.04) mg/dL Glucose (74-99) mg/dL POC Glucose (mg/dL) 300 H 329 H (70-110) mg/dL Uric Acid (3.7-7.4) mg/dL Microbiology - Last 24 Hours (Table) 02/01/24 20:33 Urine Culture - Final Urine,Voided Klebsiella oxytoca Assessment and Plan Assessment: 1. Acute kidney injury secondary to ATN secondary to cardiorenal syndrome. Renal function improving. Creatinine 1.6 today. No hydronephrosis noted on kidney ultrasound. 2. Chronic kidney disease stage IIIb with baseline creatinine 1.5-1.6 secondary to nephrosclerosis and cardiorenal syndrome. 3. Acute on chronic diastolic CHF with moderate aortic stenosis, moderate mitral regurgitation, severe tricuspid regurgitation and pulmonary hypertension. 4. Volume overload. Improving with diuresis. 5. Hyperkalemia secondary to chronic kidney disease and potassium supplementation. Improved. 6. Diabetes mellitus. 7. Coronary artery disease status post CABG. 8. Anemia. Iron deficiency noted. status post IV iron 9. Metabolic alkalosis from diuresis status post Diamox Plan: continue with Bumex. Continue with current dose of Cozaar. repeat labs today.
--- NOTE | 2024-02-05 14:46 | P.PN ---
Progress Note - Text Progress Note Date: 02/04/24 Patient was seen and evaluated. We are planning on discharging her but due to her significant pain in the right ankle and her findings of uric acid of 9.8, discharge was held. She was given IV Solu-Medrol and started on colchicine.
[2024-02-05 16:52] LABS: Glucose,Whole Blood 371 mg/dL (70-110)
[2024-02-05 20:20] LABS: Glucose,Whole Blood 374 mg/dL (70-110)
[2024-02-06 06:16] LABS: Glucose,Whole Blood 275 mg/dL (70-110)
[2024-02-06 07:11] VITALS: BP 163/67; PULSE 66; RESP 18; TEMP 97.1
== END 2024-02-06 09:03 | disposition home health service (06) | DRG 291 ==
LOC: EC 03:36 → 3SCARD 07:21
PROVIDERS: ADMIT Family Medicine; ATTEND Family Medicine
PROC: 5A09557 Assistance with Respiratory Ventilation, Greater than 96 Consecutive Hours, Continuous Positive Airway Pressure (ICD-10-PCS; principal; 2024-01-30)
PROC: 30233N1 Transfusion of Nonautologous Red Blood Cells into Peripheral Vein, Percutaneous Approach (ICD-10-PCS; 2024-01-31)
PROC: 3E033GC Introduction of Other Therapeutic Substance into Peripheral Vein, Percutaneous Approach (ICD-10-PCS; 2024-01-31)
DX: I13.0 Hypertensive heart and chronic kidney disease with heart failure and stage 1 through stage 4 chronic kidney disease, or unspecified chronic kidney disease (principal); I50.33 Acute on chronic diastolic (congestive) heart failure; J96.21 Acute and chronic respiratory failure with hypoxia; N17.0 Acute kidney failure with tubular necrosis; J96.22 Acute and chronic respiratory failure with hypercapnia; E87.3 Alkalosis; I48.19 Other persistent atrial fibrillation; Z68.43 Body mass index [BMI] 50.0-59.9, adult; J44.1 Chronic obstructive pulmonary disease with (acute) exacerbation; I27.20 Pulmonary hypertension, unspecified; D63.1 Anemia in chronic kidney disease; I95.9 Hypotension, unspecified; E11.22 Type 2 diabetes mellitus with diabetic chronic kidney disease; E11.40 Type 2 diabetes mellitus with diabetic neuropathy, unspecified; J84.10 Pulmonary fibrosis, unspecified; U09.9 Post COVID-19 condition, unspecified; D50.9 Iron deficiency anemia, unspecified; I08.3 Combined rheumatic disorders of mitral, aortic and tricuspid valves; N18.32 Chronic kidney disease, stage 3b; E03.9 Hypothyroidism, unspecified; F32.A Depression, unspecified; E66.01 Morbid (severe) obesity due to excess calories; Z79.4 Long term (current) use of insulin; Z28.310 Unvaccinated for COVID-19; M10.9 Gout, unspecified; E78.5 Hyperlipidemia, unspecified; E87.5 Hyperkalemia; G47.33 Obstructive sleep apnea (adult) (pediatric); H35.30 Unspecified macular degeneration; H54.7 Unspecified visual loss; I25.10 Atherosclerotic heart disease of native coronary artery without angina pectoris; I45.10 Unspecified right bundle-branch block; G89.29 Other chronic pain; M54.9 Dorsalgia, unspecified; I89.0 Lymphedema, not elsewhere classified; T50.2X5A Adverse effect of carbonic-anhydrase inhibitors, benzothiadiazides and other diuretics, initial encounter; M19.90 Unspecified osteoarthritis, unspecified site; K57.90 Diverticulosis of intestine, part unspecified, without perforation or abscess without bleeding; Z99.81 Dependence on supplemental oxygen; Z79.01 Long term (current) use of anticoagulants; Z79.890 Hormone replacement therapy; Z79.899 Other long term (current) drug therapy; Z87.440 Personal history of urinary (tract) infections; Z71.3 Dietary counseling and surveillance; Z95.1 Presence of aortocoronary bypass graft; Z98.84 Bariatric surgery status; Z88.0 Allergy status to penicillin; Z88.6 Allergy status to analgesic agent
CPT/HCPCS: 36415; 71045; 76770; 80048; 80053; 81001; 82728; 83036; 83540; 83550; 83605; 83735; 83880; 84132; 84439; 84443; 84484; 84550; 85025; 85027; 85610; 85730; 86850; 86900; 86901; 86920; 87077; 87086; 87186; 93005; 93306; 94660; 94760; 96374; 99291

== ENCOUNTER 2024-02-18 07:26 | Inpatient (IN) | payer MEDICARE, OTHER ==
[2024-02-18 07:36] LABS: Glucose,Whole Blood 86 mg/dL (70-110)
--- NOTE | 2024-02-18 07:43 | ED ---
SOB HPI - General Chief Complaint: Shortness of Breath Stated Complaint: heart failure Time Seen by Provider: 02/18/24 07:39 Source: EMS Mode of arrival: EMS Limitations: altered mental status - History of Present Illness Initial Comments: 74 year old female presents short of breath. Found unresponsive by son. She is suppose to wear a CPAP at night. Son said when he removed the mask away from her it did not seem to be on. Patient was 76% on non-rebreather for EMS. They also found the patient to have a very high fever. Patient admits to a cough. Denies any abdominal pain. Patient was just recently hospitalized for CHF exacerbation. HPI is limited because the patient's current state - Related Data Home Medications Medication Instructions Recorded Confirmed Atorvastatin [Lipitor] 40 mg PO HS 08/10/16 02/18/24 Isosorbide Mononitrate [Isosorbide 30 mg PO DAILY 08/10/16 02/18/24 Mononitrate ER] Oxybutynin Chloride 5 mg PO DAILY 08/10/16 02/18/24 Mirtazapine [Remeron] 15 mg PO HS 04/12/22 02/18/24 Acetaminophen Tab [Tylenol] 650 mg PO Q6H PRN 05/08/22 02/18/24 Levothyroxine Sodium [Synthroid] 50 mcg PO DAILY 12/17/22 02/18/24 Sertraline [Zoloft] 100 mg PO BID 12/17/22 02/18/24 INSULIN ASPART (NovoLOG) [NovoLOG 20 unit SQ BID 01/30/24 02/18/24 (formulary)] Insulin Glargine,Hum.rec.anlog 14 units SQ BID 01/30/24 02/18/24 [Toujeo Solostar] Pantoprazole [Protonix] 40 mg PO DAILY 01/30/24 02/18/24 Furosemide [Lasix] 20 mg PO BID 02/18/24 02/18/24 Gabapentin [Neurontin] 200 mg PO BID 02/18/24 02/18/24 Potassium Chloride ER [K-Dur 10] 10 meq PO DAILY 02/18/24 02/18/24 Previous Rx's Medication Instructions Recorded HYDROcodone/APAP 10-325MG [[place] 1 tab PO Q8H PRN #9 tab 09/24/23 10-325] Bumetanide [BUMEX] 1 mg PO BID@0900,1600 30 Days #60 02/04/24 tab Losartan [Cozaar] 12.5 mg PO DAILY 30 Days #15 tab 02/04/24 amLODIPine [Norvasc] 5 mg PO BID 30 Days #60 tab 02/04/24 carvediloL [Coreg] 6.25 mg PO BID-W/MEALS 30 Days #60 02/04/24 tab Allergies Allergy/AdvReac Type Severity Reaction Status Date / Time ibuprofen [From Motrin] Allergy Rash/Hives Verified 02/18/24 10:35 Penicillins Allergy Anaphylaxis Verified 02/18/24 10:35 Review of Systems ROS Statement: Those systems with pertinent positive or pertinent negative responses have been documented in the HPI. ROS Other: All systems not noted in ROS Statement are negative. Past Medical History Past Medical History: Atrial Fibrillation, Coronary Artery Disease (CAD), COPD, Diabetes Mellitus, Eye Disorder, Hyperlipidemia, Hypertension, Osteoarthritis (OA), Pneumonia, Renal Disease, Sleep Apnea/CPAP/BIPAP, Thyroid Disorder Additional Past Medical History / Comment(s): Pt recently admitted to [facility] on 05/08/22 with anemia/had EGD and colonoscopy which showed nonbleeding stomach u lcer/diverticular disease and colon polyp, pt received blood transfusions. Other hx: 02/12/22 covid/pneumonia/sepsis, other past pneumonias, acute hypoxic respiratory failure/now on home oxygen ATC, new A fib with RVR, IDDM type II, neuropathy bilateral feet, L eye retinal bleed/lasik eye surgery, R eye cataract, bilateral eye macular degeneration/gets injections/poor vision, CKD stage III, anemia, UTI/sepsis, bilateral leg lymphedema, FLORES/does not have cpap machine at this time, diverticulitis, gout, chronic back pain, rheumatic fever, hypothyroid. History of Any Multi-Drug Resistant Organisms: ESBL Date of last positivie culture/infection: 05/22/22 ESBL Klebsiella MDRO Source:: Urine Past Surgical History: Bariatric Surgery, Section, Cholecystectomy, Coronary Bypass/CABG, Heart Catheterization, Hysterectomy, Orthopedic Surgery, Tonsillectomy Additional Past Surgical History / Comment(s): EGD, colonoscopy, 2 vessel CABG in 1996, bilateral carpal tunnel release, lap band, L eye laser surgery, Past Anesthesia/Blood Transfusion Reactions: No Reported Reaction Past Psychological History: Depression Smoking Status: Never smoker Past Alcohol Use History: None Reported Past Drug Use History: None Reported - Past Family History Father History Unknown: Yes Family Medical History: Cancer, Coronary Artery Disease (CAD), Diabetes Mellitus Additional Family Medical History / Comment(s): Prostate cancer Mother History Unknown: Yes Family Medical History: Cancer Additional Family Medical History / Comment(s): Bone cancer. General Exam Limitations: altered mental status General appearance: lethargic Head exam: Present: atraumatic, normocephalic, normal inspection Eye exam: Present: normal appearance, PERRL, EOMI. Absent: scleral icterus, conjunctival injection, periorbital swelling ENT exam: Present: mucous membranes dry Neck exam: Present: normal inspection. Absent: tenderness, meningismus, lymphadenopathy Respiratory exam: Present: decreased breath sounds Cardiovascular Exam: Present: regular rate, normal rhythm, normal heart sounds. Absent: systolic murmur, diastolic murmur, rubs, gallop, clicks Neurological exam: Present: altered Course Vital Signs 02/18/24 02/18/24 02/18/24 07:27 07:30 07:35 Temperature 103.9 F H Pulse Rate 86 Respiratory 32 H 28 H Rate Blood Pressure 153/141 O2 Sat by Pulse 100 Oximetry Fraction of 50 Inspired Oxygen (FIO2) 02/18/24 02/18/24 02/18/24 07:44 07:45 08:05 Temperature Pulse Rate 79 Respiratory 28 H Rate Blood Pressure 128/76 117/78 O2 Sat by Pulse 95 Oximetry Fraction of 40 Inspired Oxygen (FIO2) 02/18/24 02/18/24 02/18/24 08:31 08:51 09:19 Temperature 102.6 F H 101.7 F H Pulse Rate 79 70 Respiratory 28 H Rate Blood Pressure 99/50 87/47 107/47 O2 Sat by Pulse 97 96 Oximetry Fraction of Inspired Oxygen (FIO2) 02/18/24 02/18/24 02/18/24 09:30 10:29 10:36 Temperature 101.3 F H 100.4 F H Pulse Rate 70 65 Respiratory 22 24 Rate Blood Pressure 126/78 86/31 102/33 O2 Sat by Pulse 95 98 Oximetry Fraction of Inspired Oxygen (FIO2) 02/18/24 02/18/24 02/18/24 10:47 10:50 11:00 Temperature 99.9 F H Pulse Rate Respiratory Rate Blood Pressure 97/41 96/40 O2 Sat by Pulse Oximetry Fraction of 35 Inspired Oxygen (FIO2) 02/18/24 02/18/24 02/18/24 11:15 11:40 12:31 Temperature Pulse Rate 67 67 Respiratory 22 24 Rate Blood Pressure 89/39 103/42 108/33 O2 Sat by Pulse 97 98 Oximetry Fraction of Inspired Oxygen (FIO2) 02/18/24 02/18/24 02/18/24 13:55 15:05 15:26 Temperature 99.5 F 98.6 F Pulse Rate 66 71 Respiratory 22 22 Rate Blood Pressure 101/34 110/37 O2 Sat by Pulse 97 98 Oximetry Fraction of 35 Inspired Oxygen (FIO2) 02/18/24 02/18/24 16:13 17:30 Temperature 100.7 F H Pulse Rate 71 74 Respiratory 24 20 Rate Blood Pressure 115/45 127/47 O2 Sat by Pulse 100 99 Oximetry Fraction of Inspired Oxygen (FIO2) Medical Decision Making - Medical Decision Making Was pt. sent in by a medical professional or institution (Dr. PA, CAR BODY MECHANIC, urgent care, hospital, or custodial...) When possible be specific @ -No Did you speak to anyone other than the patient for history (EMS, parent, family, police, friend...)? What history was obtained from this source @ -Spoke with EMS and son for history Did you review nursing and triage notes (agree or disagree)? Why? @ -I reviewed and agree with nursing and triage notes Were old charts reviewed (outside hosp., previous admission, EMS record, old EKG, old radiological studies, urgent care reports/EKG's, custodial records)? Report findings @ -I reviewed discharge summary from February 03 where patient was admitted for a CHF exacerbation Differential Diagnosis (chest pain, altered mental status, abdominal pain women, abdominal pain men, vaginal bleeding, weakness, fever, dyspnea, syncope, headache, dizziness, GI bleed, back pain, seizure, CVA, palpatations, mental he alth, musculoskeletal)? @ -Differential Dyspnea: Coronary syndrome, arrhythmia, tamponade, asthma, COPD, pulmonary embolism, pneumonia, pneumothorax, pulmonary effusion, anaphylaxis, diabetic ketoacidosis, flailed chest, pulmonary contusion, diaphragmatic rupture, anemia, neurom uscular, this is not meant to be an all-inclusive list. EKG interpreted by me (3pts min.). @ -EKG demonstrates afib with a rate of 85. QRS 196. Qtc 498. wide qrs X-rays interpreted by me (1pt min.). @ -Yes and demonstrates diffuse interstitial edema CT interpreted by me (1pt min.). @ -None done U/S interpreted by me (1pt. min.). @ -None done What testing was considered but not performed or refused? (CT, X-rays, U/S, labs)? Why? @ -None What meds were considered but not given or refused? Why? @ -None Did you discuss the management of the patient with other professionals (professionals i.e. , PA, CAR BODY MECHANIC, lab, RT, psych nurse, sr. social media & mobile manager, customer solutions coordinator, teacher, botanical technical officer, telehealth case manager)? Give summary @ -Spoke with Dr. Cruz for admission Was smoking cessation discussed for >3mins.? @ -No Was critical care preformed (if so, how long)? @ -Yes, 40 minutes for BiPAP respiratory failure Were there social determinants of health that impacted care today? How? (Homelessness, low income, unemployed, alcoholism, drug addiction, transportation, low edu. Level, literacy, decrease access to med. care, mcc, rehab)? @ -No Was there de-escalation of care discussed even if they declined (Discuss DNR or withdrawal of care, Hospice)? DNR status @ -No What co-morbidities impacted this encounter? (DM, HTN, Smoking, COPD, CAD, Cancer, CVA, ARF, Chemo, Hep., AIDS, mental health diagnosis, sleep apnea, morbid obesity)? @ -Obesity, CHF, COPD Was patient admitted / discharged? Hospital course, mention meds given and route, prescriptions, significant lab abnormalities, going to OR and other pertinent info. @ -Upon arrival patient seen and evaluated in trauma 2. Thorough history and physical exam was performed. Patient was transitioned from CPAP to BiPAP. She does become more responsive and answers some questions. Patient found to have a high fever and therefore was given IV Tylenol. Laboratory studies are conducted. Source of infection appears to be urine. Patient is not given the 130 cc/kg bolus as her chest x-ray already demonstrates fluid overload. There is some concern that there could be underlying pneumonia and therefore patient will be admitted broad-spectrum antibiotics. Patient admitted to Dr. Cruz Undiagnosed new problem with uncertain prognosis? @ -No Drug Therapy requiring intensive monitoring for toxicity (Heparin, Nitro, Insulin, Cardizem)? @ -No Were any procedures done? @ -No Diagnosis/symptom? @ -Acute-toxic respiratory failure, chronic respiratory insufficiency, BiPAP dependence, pulmonary edema, congestive heart failure, possible pneumonia, acute UTI Acute, or Chronic, or Acute on Chronic? @ -Acute on chronic Uncomplicated (without systemic symptoms) or Complicated (systemic symptoms)? @ -Complicated Side effects of treatment? @ -No Exacerbation, Progression, or Severe Exacerbation? @ -No Poses a threat to life or bodily function? How? (Chest pain, [place], MA, pneumonia, PE, COPD, DKA, ARF, appy, cholecystitis, CVA, Diverticulitis, Homicidal, Suicidal, threat to staff... and all critical care pts) @ -Yes as patient was obtunded due to her hypoxia - Lab Data Result diagrams: 02/20/24 01:11 02/21/24 06:28 Lab Results 02/18/24 02/18/24 02/18/24 Range/Units 07:35 07:49 07:49 WBC 16.3 H (3.8-10.6) k/uL RBC 3.06 L (3.80-5.40) m/uL Hgb 8.4 L (11.4-16.0) gm/dL Hct 27.5 L (34.0-46.0) % MCV 90.0 (80.0-100.0) fL MCH 27.3 (25.0-35.0) pg MCHC 30.4 L (31.0-37.0) g/dL RDW 17.1 H (11.5-15.5) % Plt Count 149 L (150-450) k/uL MPV 8.7 Neutrophils % 93 % Lymphocytes % 1 % Monocytes % 4 % Eosinophils % 0 % Basophils % 0 % Neutrophils # 15.2 H (1.3-7.7) k/uL Lymphocytes # 0.2 L (1.0-4.8) k/uL Monocytes # 0.7 (0-1.0) k/uL Eosinophils # 0.1 (0-0.7) k/uL Basophils # 0.0 (0-0.2) k/uL Hypochromasia Marked Anisocytosis Slight PT 12.3 (10.0-12.5) sec INR 1.1 (<1.2) APTT 22.2 (22.0-30.0) sec VBG pH (7.31-7.41) VBG pCO2 (37-51) mmHg VBG HCO3 (24-28) mmol/L Sodium (137-145) mmol/L Potassium (3.5-5.1) mmol/L Chloride (98-107) mmol/L Carbon Dioxide (22-30) mmol/L Anion Gap mmol/L BUN (7-17) mg/dL Creatinine (0.52-1.04) mg/dL Est GFR (CKD-EPI)AfAm (>60 ml/min/1.73 sqM) Est GFR (CKD-EPI)NonAf (>60 ml/min/1.73 sqM) Glucose (74-99) mg/dL POC Glucose (mg/dL) 86 (70-110) mg/dL POC Glu Test Fixture Assembler ID Prudence Law Plasma Lactic Acid Garcia (0.7-2.0) mmol/L Calcium (8.4-10.2) mg/dL Total Bilirubin (0.2-1.3) mg/dL AST (14-36) U/L ALT (4-34) U/L Alkaline Phosphatase (38-126) U/L Troponin I (0.000-0.034) ng/mL NT-Pro-B Natriuret Pep pg/mL Total Protein (6.3-8.2) g/dL Albumin (3.5-5.0) g/dL Urine Color Urine Appearance (Clear) Urine pH (5.0-8.0) Ur Specific [place] (1.001-1.035) Urine Protein (Negative) Urine Glucose (UA) (Negative) Urine Ketones (Negative) Urine Blood (Negative) Urine Nitrite (Negative) Urine Bilirubin (Negative) Urine Urobilinogen (<2.0) mg/dL Ur Leukocyte Esterase (Negative) Urine RBC (0-5) /hpf Urine WBC (0-5) /hpf Urine WBC Clumps (None) /hpf Ur Squamous Epith Cells (0-4) /hpf Urine Bacteria (None) /hpf Influenza Type A (PCR) (Not Detectd) Influenza Type B (PCR) (Not Detectd) RSV (PCR) (Not Detectd) SARS-CoV-2 (PCR) (Not Detectd) 02/18/24 02/18/24 02/18/24 Range/Units 07:49 07:49 07:49 WBC (3.8-10.6) k/uL RBC (3.80-5.40) m/uL Hgb (11.4-16.0) gm/dL Hct (34.0-46.0) % MCV (80.0-100.0) fL MCH (25.0-35.0) pg MCHC (31.0-37.0) g/dL RDW (11.5-15.5) % Plt Count (150-450) k/uL MPV Neutrophils % % Lymphocytes % % Monocytes % % Eosinophils % % Basophils % % Neutrophils # (1.3-7.7) k/uL Lymphocytes # (1.0-4.8) k/uL Monocytes # (0-1.0) k/uL Eosinophils # (0-0.7) k/uL Basophils # (0-0.2) k/uL Hypochromasia Anisocytosis PT (10.0-12.5) sec INR (<1.2) APTT (22.0-30.0) sec VBG pH (7.31-7.41) VBG pCO2 (37-51) mmHg VBG HCO3 (24-28) mmol/L Sodium 143 (137-145) mmol/L Potassium 4.4 (3.5-5.1) mmol/L Chloride 102 (98-107) mmol/L Carbon Dioxide 37 H (22-30) mmol/L Anion Gap 4 mmol/L BUN 63 H (7-17) mg/dL Creatinine 2.42 H (0.52-1.04) mg/dL Est GFR (CKD-EPI)AfAm 22 (>60 ml/min/1.73 sqM) Est GFR (CKD-EPI)NonAf 19 (>60 ml/min/1.73 sqM) Glucose 80 (74-99) mg/dL POC Glucose (mg/dL) (70-110) mg/dL POC Glu Test Fixture Assembler ID Plasma Lactic Acid Garcia 1.5 (0.7-2.0) mmol/L Calcium 8.9 (8.4-10.2) mg/dL Total Bilirubin 0.8 (0.2-1.3) mg/dL AST 33 (14-36) U/L ALT 19 (4-34) U/L Alkaline Phosphatase 103 (38-126) U/L Troponin I (0.000-0.034) ng/mL NT-Pro-B Natriuret Pep 6970 pg/mL Total Protein 6.6 (6.3-8.2) g/dL Albumin 3.4 L (3.5-5.0) g/dL Urine Color Yellow Urine Appearance Turbid H (Clear) Urine pH 5.0 (5.0-8.0) Ur Specific [place] 1.014 (1.001-1.035) Urine Protein Trace H (Negative) Urine Glucose (UA) Negative (Negative) Urine Ketones Negative (Negative) Urine Blood Trace H (Negative) Urine Nitrite Negative (Negative) Urine Bilirubin Negative (Negative) Urine Urobilinogen <2.0 (<2.0) mg/dL Ur Leukocyte Esterase Large H (Negative) Urine RBC 7 H (0-5) /hpf Urine WBC 166 H (0-5) /hpf Urine WBC Clumps Moderate H (None) /hpf Ur Squamous Epith Cells 30 H (0-4) /hpf Urine Bacteria Many H (None) /hpf Influenza Type A (PCR) (Not Detectd) Influenza Type B (PCR) (Not Detectd) RSV (PCR) (Not Detectd) SARS-CoV-2 (PCR) (Not Detectd) 02/18/24 02/18/24 02/18/24 Range/Units 07:49 07:50 08:15 WBC (3.8-10.6) k/uL RBC (3.80-5.40) m/uL Hgb (11.4-16.0) gm/dL Hct (34.0-46.0) % MCV (80.0-100.0) fL MCH (25.0-35.0) pg MCHC (31.0-37.0) g/dL RDW (11.5-15.5) % Plt Count (150-450) k/uL MPV Neutrophils % % Lymphocytes % % Monocytes % % Eosinophils % % Basophils % % Neutrophils # (1.3-7.7) k/uL Lymphocytes # (1.0-4.8) k/uL Monocytes # (0-1.0) k/uL Eosinophils # (0-0.7) k/uL Basophils # (0-0.2) k/uL Hypochromasia Anisocytosis PT (10.0-12.5) sec INR (<1.2) APTT (22.0-30.0) sec VBG pH 7.36 (7.31-7.41) VBG pCO2 63 H (37-51) mmHg VBG HCO3 35 H (24-28) mmol/L Sodium (137-145) mmol/L Potassium (3.5-5.1) mmol/L Chloride (98-107) mmol/L Carbon Dioxide (22-30) mmol/L Anion Gap mmol/L BUN (7-17) mg/dL Creatinine (0.52-1.04) mg/dL Est GFR (CKD-EPI)AfAm (>60 ml/min/1.73 sqM) Est GFR (CKD-EPI)NonAf (>60 ml/min/1.73 sqM) Glucose (74-99) mg/dL POC Glucose (mg/dL) (70-110) mg/dL POC Glu Test Fixture Assembler ID Plasma Lactic Acid Garcia (0.7-2.0) mmol/L Calcium (8.4-10.2) mg/dL Total Bilirubin (0.2-1.3) mg/dL AST (14-36) U/L ALT (4-34) U/L Alkaline Phosphatase (38-126) U/L Troponin I 0.540 H* (0.000-0.034) ng/mL NT-Pro-B Natriuret Pep pg/mL Total Protein (6.3-8.2) g/dL Albumin (3.5-5.0) g/dL Urine Color Urine Appearance (Clear) Urine pH (5.0-8.0) Ur Specific [place] (1.001-1.035) Urine Protein (Negative) Urine Glucose (UA) (Negative) Urine Ketones (Negative) Urine Blood (Negative) Urine Nitrite (Negative) Urine Bilirubin (Negative) Urine Urobilinogen (<2.0) mg/dL Ur Leukocyte Esterase (Negative) Urine RBC (0-5) /hpf Urine WBC (0-5) /hpf Urine WBC Clumps (None) /hpf Ur Squamous Epith Cells (0-4) /hpf Urine Bacteria (None) /hpf Influenza Type A (PCR) Not Detected (Not Detectd) Influenza Type B (PCR) Not Detected (Not Detectd) RSV (PCR) Not Detected (Not Detectd) SARS-CoV-2 (PCR) Not Detected (Not Detectd) 02/18/24 02/18/24 Range/Units 09:33 10:11 WBC (3.8-10.6) k/uL RBC (3.80-5.40) m/uL Hgb (11.4-16.0) gm/dL Hct (34.0-46.0) % MCV (80.0-100.0) fL MCH (25.0-35.0) pg MCHC (31.0-37.0) g/dL RDW (11.5-15.5) % Plt Count (150-450) k/uL MPV Neutrophils % % Lymphocytes % % Monocytes % % Eosinophils % % Basophils % % Neutrophils # (1.3-7.7) k/uL Lymphocytes # (1.0-4.8) k/uL Monocytes # (0-1.0) k/uL Eosinophils # (0-0.7) k/uL Basophils # (0-0.2) k/uL Hypochromasia Anisocytosis PT (10.0-12.5) sec INR (<1.2) APTT (22.0-30.0) sec VBG pH (7.31-7.41) VBG pCO2 (37-51) mmHg VBG HCO3 (24-28) mmol/L Sodium (137-145) mmol/L Potassium (3.5-5.1) mmol/L Chloride (98-107) mmol/L Carbon Dioxide (22-30) mmol/L Anion Gap mmol/L BUN (7-17) mg/dL Creatinine (0.52-1.04) mg/dL Est GFR (CKD-EPI)AfAm (>60 ml/min/1.73 sqM) Est GFR (CKD-EPI)NonAf (>60 ml/min/1.73 sqM) Glucose (74-99) mg/dL POC Glucose (mg/dL) 113 H (70-110) mg/dL POC Glu Test Fixture Assembler ID Prudence Law Plasma Lactic Acid Garcia 1.2 (0.7-2.0) mmol/L Calcium (8.4-10.2) mg/dL Total Bilirubin (0.2-1.3) mg/dL AST (14-36) U/L ALT (4-34) U/L Alkaline Phosphatase (38-126) U/L Troponin I (0.000-0.034) ng/mL NT-Pro-B Natriuret Pep pg/mL Total Protein (6.3-8.2) g/dL Albumin (3.5-5.0) g/dL Urine Color Urine Appearance (Clear) Urine pH (5.0-8.0) Ur Specific [place] (1.001-1.035) Urine Protein (Negative) Urine Glucose (UA) (Negative) Urine Ketones (Negative) Urine Blood (Negative) Urine Nitrite (Negative) Urine Bilirubin (Negative) Urine Urobilinogen (<2.0) mg/dL Ur Leukocyte Esterase (Negative) Urine RBC (0-5) /hpf Urine WBC (0-5) /hpf Urine WBC Clumps (None) /hpf Ur Squamous Epith Cells (0-4) /hpf Urine Bacteria (None) /hpf Influenza Type A (PCR) (Not Detectd) Influenza Type B (PCR) (Not Detectd) RSV (PCR) (Not Detectd) SARS-CoV-2 (PCR) (Not Detectd) Disposition Clinical Impression: NSTEMI (non-ST elevated myocardial infarction), Acute kidney injury, Pulmonary edema, Fever, UTI (urinary tract infection), BiPAP (biphasic positive airway pressure) dependence, Hypoxia, Acute encephalopathy Disposition: ADMITTED IP TO THIS [facility] Condition: Serious Is patient prescribed a controlled substance at d/c from ED?: No Time of Disposition: : Decision to Admit Reason: Admit from EC Decision Date: 02/18/24 Decision Time: :
[2024-02-18] MEDS: SODIUM CHLORIDE 0.9% 1,000 ML IV SCH (08:03)
[2024-02-18] MEDS: ACETAMINOPHEN IV (For NPO) 1,000 MG in EMPTY BAG 1 BAG IVPB STA (08:03)
[2024-02-18 08:30] LABS: Anisocytosis Slight; Basophils % (A) 0 %; Eosinophils # (A) 0.1 k/uL (0-0.7); Eosinophils % (A) 0 %; HCT 27.5 % (34.0-46.0); HGB 8.4 gm/dL (11.4-16.0); Hypochromasia Marked; Lymphocytes # (A) 0.2 k/uL (1.0-4.8); Lymphocytes % (A) 1 %; MCH 27.3 pg (25.0-35.0); MCHC 30.4 g/dL (31.0-37.0); Mean Platelet Volume 8.7; Monocytes # (A) 0.7 k/uL (0-1.0); Monocytes % (A) 4 %; Neutrophils # (A) 15.2 k/uL (1.3-7.7); Neutrophils % (A) 93 %; Platelet Count 149 k/uL (150-450); RBC 3.06 m/uL (3.80-5.40); RDW 17.1 % (11.5-15.5); WBC 16.3 k/uL (3.8-10.6)
[2024-02-18 08:36] LABS: VBG PH 7.36 (7.31-7.41)
[2024-02-18 08:48] LABS: ALT 19 U/L (4-34); AST 33 U/L (14-36); African American GFR (CKD) 22 (>60 ml/min/1.73 sqM); Albumin 3.4 g/dL (3.5-5.0); Alkaline Phosphatase 103 U/L (38-126); Anion Gap 4 mmol/L; Blood Urea Nitrogen 63 mg/dL (7-17); Calcium 8.9 mg/dL (8.4-10.2); Carbon Dioxide 37 mmol/L (22-30); Chloride 102 mmol/L (98-107); Glucose 80 mg/dL (74-99); INR 1.1 (<1.2); Non-African American GFR(CKD) 19 (>60 ml/min/1.73 sqM); Partial Thromboplastin Time 22.2 sec (22.0-30.0); Potassium 4.4 mmol/L (3.5-5.1); Prothrombin Time 12.3 sec (10.0-12.5); Sodium 143 mmol/L (137-145); Total Bilirubin 0.8 mg/dL (0.2-1.3); Total Protein 6.6 g/dL (6.3-8.2)
--- NOTE | 2024-02-18 08:52 | XR ---
EXAMINATION TYPE: XR chest 1V portable DATE OF EXAM: 02/18/2024 Comparison: 01/30/2024 Clinical History: 74-year-old female Fever Findings: Median sternotomy wires with post-CABG clips. Heart remains moderately enlarged with diffuse intersti tial and patchy opacities. No sizable pleural effusion. Impression: Similar moderate cardiomegaly and diffuse interstitial infiltrate/edema.
[2024-02-18 08:56] LABS: NT-Pro-B-Type Natriuretic Pept 6970 pg/mL
[2024-02-18 09:02] LABS: Appearance,Urine Turbid (Clear); Bacteria,Urine Many /hpf; Bilirubin,Urine Negative (Negative); Blood,Urine Trace (Negative); Color,Urine Yellow; Glucose,Urine (UA) Negative (Negative); Ketones,Urine Negative (Negative); Leukocyte Esterase,Urine Large (Negative); Nitrite,Urine Negative (Negative); Protein,Urine Trace (Negative); RBC,Urine 7 /hpf (0-5); Specific Gravity,Urine 1.014 (1.001-1.035); Squamous Epithelial Cell,Urine 30 /hpf (0-4); Urobilinogen,Urine <2.0 mg/dL (<2.0); WBC,Urine 166 /hpf (0-5)
[2024-02-18] MEDS: LEVOFLOXACIN 750MG-D5W PMX 750 MG in DEXTROSE/WATER 1 150ML.BAG IVPB STA (09:50)
[2024-02-18] MEDS: SODIUM CHLORIDE 0.9% 500 ML IV ONE (09:51)
[2024-02-18 10:12] LABS: Glucose,Whole Blood 113 mg/dL (70-110)
[2024-02-18] MEDS ORDERED: NALOXONE 0.4 MG/ML 1 ML VIAL IV PRN (10:19)
[2024-02-18] MEDS: SODIUM CHLORIDE 0.9% 500 ML 500 ML IV ONE (10:39)
[2024-02-18 15:34] LABS: Glucose,Whole Blood 126 mg/dL (70-110)
[2024-02-18] MEDS: ACETAMINOPHEN TAB 325 MG TAB PO PRN (17:24)
[2024-02-18] MEDS ORDERED: ACETAMINOPHEN TAB 325 MG TAB PO PRN (18:23)
[2024-02-18 20:38] LABS: Glucose,Whole Blood 138 mg/dL (70-110)
[2024-02-18] MEDS: INSULIN ASPART (NovoLOG) 100 UNIT/ML VIAL SQ SCH (20:39)
[2024-02-18] MEDS: INSULIN DETEMIR (LEVEMIR) 100 UNIT/ML SYR SQ SCH (20:39)
[2024-02-18] MEDS: GABAPENTIN 100 MG CAP PO SCH (20:43)
[2024-02-18] MEDS: HYDROcodone/APAP 10-325MG 1 EACH TAB PO PRN (20:44)
[2024-02-18] MEDS: SERTRALINE 100 MG TAB PO SCH (20:44)
[2024-02-18] MEDS: amLODIPine 5 MG TAB PO SCH (20:44)
[2024-02-18] MEDS: FUROSEMIDE 20 MG TAB PO SCH (20:44)
[2024-02-18] MEDS: ATORVASTATIN 40 MG TAB PO SCH (20:44)
[2024-02-18] MEDS: MIRTAZAPINE 15 MG TAB PO SCH (20:44)
[2024-02-19 06:14] LABS: Glucose,Whole Blood 150 mg/dL (70-110)
[2024-02-19] MEDS: carvediloL 6.25 MG TAB PO SCH (06:52)
[2024-02-19 07:17] LABS: Anisocytosis Slight; Basophils % (A) 0 %; Eosinophils % (A) 0 %; HCT 24.8 % (34.0-46.0); HGB 7.4 gm/dL (11.4-16.0); Hypochromasia Marked; Lymphocytes # (A) 0.3 k/uL (1.0-4.8); Lymphocytes % (A) 2 %; MCH 27.2 pg (25.0-35.0); MCHC 30.1 g/dL (31.0-37.0); MCV 90.5 fL (80.0-100.0); Mean Platelet Volume 9.5; Monocytes # (A) 0.4 k/uL (0-1.0); Monocytes % (A) 2 %; Neutrophils % (A) 95 %; Platelet Count 120 k/uL (150-450); RBC 2.74 m/uL (3.80-5.40); RDW 17.3 % (11.5-15.5); WBC 15.9 k/uL (3.8-10.6)
[2024-02-19 07:28] LABS: African American GFR (CKD) 19 (>60 ml/min/1.73 sqM); Anion Gap 5 mmol/L; Blood Urea Nitrogen 70 mg/dL (7-17); Calcium 8.5 mg/dL (8.4-10.2); Carbon Dioxide 32 mmol/L (22-30); Chloride 100 mmol/L (98-107); Glucose 131 mg/dL (74-99); Non-African American GFR(CKD) 17 (>60 ml/min/1.73 sqM); Potassium 4.8 mmol/L (3.5-5.1); Sodium 137 mmol/L (137-145)
[2024-02-19] MEDS: LOSARTAN 25 MG TAB PO SCH (08:16)
[2024-02-19] MEDS: BUMETANIDE 1 MG TAB PO SCH (08:16)
[2024-02-19] MEDS: PANTOPRAZOLE 40 MG TABLET PO SCH (08:16)
[2024-02-19] MEDS: LEVOTHYROXINE 50 MCG TAB PO SCH (08:17)
[2024-02-19] MEDS: POTASSIUM CHLORIDE ER 10 MEQ TAB.ER.PRT PO SCH (08:17)
[2024-02-19] MEDS: ISOSORBIDE MONONITRATE ER 30 MG TAB.ER.24H PO SCH (08:17)
[2024-02-19 10:18] LABS: Anisocytosis Slight; Basophils % (A) 0 %; Eosinophils % (A) 0 %; HCT 23.3 % (34.0-46.0); HGB 7.2 gm/dL (11.4-16.0); Hypochromasia Marked; Lymphocytes # (A) 0.4 k/uL (1.0-4.8); Lymphocytes % (A) 3 %; MCH 27.9 pg (25.0-35.0); MCHC 31.1 g/dL (31.0-37.0); MCV 89.8 fL (80.0-100.0); Mean Platelet Volume 9.7; Monocytes # (A) 0.4 k/uL (0-1.0); Monocytes % (A) 3 %; Neutrophils # (A) 15.2 k/uL (1.3-7.7); Neutrophils % (A) 94 %; Platelet Count 126 k/uL (150-450); RDW 17.3 % (11.5-15.5); WBC 16.2 k/uL (3.8-10.6)
[2024-02-19] MEDS: HEPARIN SOD,PORK IN 0.45% NACL 25,000 UNIT in 0.45% NACL 1 250ML.BAG IV SCH (10:25)
[2024-02-19] MEDS: HEPARIN SODIUM 1,000 UN/ML (10ML VL) IV ONE (10:28)
[2024-02-19 10:32] LABS: INR 1.4 (<1.2); Partial Thromboplastin Time 29.6 sec (22.0-30.0); Prothrombin Time 14.6 sec (10.0-12.5)
[2024-02-19] MEDS: oxyBUTYnin chloride 5 MG TAB PO SCH (10:47)
[2024-02-19 11:34] LABS: Glucose,Whole Blood 144 mg/dL (70-110)
[2024-02-19] MEDS: ASPIRIN 81 MG PO SCH (11:58)
[2024-02-19] MEDS: CLOPIDOGREL 75 MG TAB PO SCH (11:58)
--- NOTE | 2024-02-19 12:14 | P.CRDCN ---
History of Present Illness History of present illness: HISTORY OF PRESENT ILLNESS: This is a 74-year-old female with a past medical history significant for coronary artery disease with previous two-vessel CABG in 1996, atrial fibrillation, hypertension, diabetes, severe pulmonary hypertension, chronic kidney disease, and history of GI bleeding. Patient follows in the office with Dr. Weller. We have been asked to see the patient in consultation for elevated troponins. Patient examined at the bedside. Patient presented to the hospital with a chief complaint of shortness of breath. Patient states that her oxygen saturations at home were very low and she thinks that she was not very responsive. The patient is currently on 4 L nasal cannula. She states her shortness of breath is improving. She denies having any chest pain or pressure prior to coming to the hospital or since being admitted. The patient was also found to be febrile with a temperature of 102. She has been started on IV antibiotics per primary medicine. Repeat EKG performed this morning reveals sinus mechanism with right bundle branch block with no signs of acute ischemia. DIAGNOSTICS: - EKG reveals sinus mechanism with right bundle branch block. Initial EKG reveals significant artifact. - Chest xray similar moderate cardiomegaly and diffuse interstitial infiltrate/edema - Laboratory data: WBC 12.2. Hemoglobin 7.2. Platelet count 126. Sodium 137. Potassium 4.8. BUN 70. Creatinine 2.69. Troponin 0.540. 5.420. 8.040 - Current home cardiac medications include carvedilol 6.25 mg twice a day, losartan 12.5 mg daily, Imdur 30 mg daily, Lasix 20 mg twice a day, Bumex 1 mg twice a day, Lipitor 40 mg at night - Most recent echocardiogram obtained on January 31, 2024 revealed ejection fraction 55 to 60%, severe pulmonary hypertension, severe tricuspid regurgitation, mild to moderate MR, moderate aortic stenosis with mild aortic regurgitation REVIEW OF SYSTEMS: At the time of my exam: CONSTITUTIONAL: Denies fever or chills. HEENT: Denies blurred vision, vision changes, or eye pain. Denies hemoptysis CARDIOVASCULAR: Denies chest pain. Denies orthopnea. Denies PND. Denies palpitations RESPIRATORY: Denies shortness of breath. GASTROINTESTINAL: Denies abdominal pain. Denies nausea or vomiting. HEMATOLOGIC: Denies bleeding disorders. GENITOURINARY: Denies any blood in urine. SKIN: Denies pruitis. Denies rash. PHYSICAL EXAM: VITAL SIGNS: Reviewed. GENERAL: Well-developed in no acute distress. HEENT: Head is normocephalic. Pupils are equal, round. Sclerae anicteric. Mucous membranes of the mouth are moist. Neck supple. No JVD or thyromegaly LUNGS: Respirations even and unlabored. Lungs essentially clear to auscultation bilaterally. HEART: Regular rate and rhythm. S1 and S2 heard. Systolic murmur noted. ABDOMEN: Soft. Nondistended. Nontender. EXTREMITIES: Normal range of motion. No clubbing or cyanosis. Peripheral pulses intact. No lower extremity edema NEUROLOGIC: Awake and alert. Oriented x 3. ASSESSMENT: Shortness of breath Febrile illness Acute hypoxic respiratory failure requiring BiPAP support Non-STEMI Acute on chronic kidney disease Coronary artery disease with previous two-vessel CABG in 1996 Paroxysmal atrial fibrillation, not anticoagulated on an outpatient basis due to history of GI bleeding Severe pulmonary hypertension Valvular heart disease including moderate aortic stenosis History of GI bleeding PLAN: Obtain 2D echo to assess cardiac structure and function Begin IV heparin Continue to monitor kidney function. Per patient's home medication list she is taking Bumex and Lasix which may have contributed to AMINA Add aspirin 81 mg daily Increase atorvastatin to 80 mg at night Add Plavix 75 mg daily Consult nephrology for AMINA on CKD as patient will require eventual cardiac catheterization Continue with medical management at this time. Patient to undergo cardiac catheterization with Dr. Weller when she is medically stable Further recommendations pending patient course Nurse practitioner note has been reviewed by physician. Signing provider agrees with the documented findings, assessment, and plan of care documented by CR[employer]CRE[employer] REPA[employer]ER as a scribe. Past Medical History Past Medical History: Atrial Fibrillation, Coronary Artery Disease (CAD), COPD, Diabetes Mellitus, Eye Disorder, Hyperlipidemia, Hypertension, Osteoarthritis (OA), Pneumonia, Renal Disease, Sleep Apnea/CPAP/BIPAP, Thyroid Disorder Additional Past Medical History / Comment(s): Pt recently admitted to [facility] on 05/08/22 with anemia/had EGD and colonoscopy which showed nonbleeding stomach ulcer/diverticular disease and colon polyp, pt received blood transfusions. Other hx: 02/12/22 covid/pneumonia/sepsis, other past pneumonias, acute hypoxic respiratory failure/now on home oxygen ATC, new A fib with RVR, IDDM type II, neuropathy bilateral feet, L eye retinal bleed/lasik eye surgery, R eye cataract, bilateral eye macular degeneration/gets injections/poor vision, CKD stage III, anemia, UTI/sepsis, bilateral leg lymphedema, FLORES/does not have cpap machine at this time, diverticulitis, gout, chronic back pain, rheumatic fever, hypothyroid. History of Any Multi-Drug Resistant Organisms: ESBL Date of last positivie culture/infection: 05/22/22 ESBL Klebsiella MDRO Source:: Urine Past Surgical History: Bariatric Surgery, Section, Cholecystectomy, Coronary Bypass/CABG, Heart Catheterization, Hysterectomy, Orthopedic Surgery, Tonsillectomy Additional Past Surgical History / Comment(s): EGD, colonoscopy, 2 vessel CABG in 1996, bilateral carpal tunnel release, lap band, L eye laser surgery, Past Anesthesia/Blood Transfusion Reactions: No Reported Reaction Past Psychological History: Depression Additional Psychological History / Comment(s): . Smoking Status: Never smoker Past Alcohol Use History: None Reported Additional Past Alcohol Use History / Comment(s): Patient is a lifelong nonsmoker. Past Drug Use History: None Reported - Past Family History Father History Unknown: Yes Family Medical History: Cancer, Coronary Artery Disease (CAD), Diabetes Mellitus Additional Family Medical History / Comment(s): Prostate cancer Mother History Unknown: Yes Family Medical History: Cancer Additional Family Medical History / Comment(s): Bone cancer. Medications and Allergies Home Medications Medication Instructions Recorded Confirmed Type Atorvastatin [Lipitor] 40 mg PO HS 08/10/16 02/18/24 History Isosorbide Mononitrate [Isosorbide 30 mg PO DAILY 08/10/16 02/18/24 History Mononitrate ER] Oxybutynin Chloride 5 mg PO DAILY 08/10/16 02/18/24 History Mirtazapine [Remeron] 15 mg PO HS 04/12/22 02/18/24 History Acetaminophen Tab [Tylenol] 650 mg PO Q6H PRN 05/08/22 02/18/24 History Levothyroxine Sodium [Synthroid] 50 mcg PO DAILY 12/17/22 02/18/24 History Sertraline [Zoloft] 100 mg PO BID 12/17/22 02/18/24 History HYDROcodone/APAP 10-325MG [[place] 1 tab PO Q8H PRN #9 tab 09/24/23 02/18/24 Rx 10-325] INSULIN ASPART (NovoLOG) [NovoLOG 20 unit SQ BID 01/30/24 02/18/24 History (formulary)] Insulin Glargine,Hum.rec.anlog 14 units SQ BID 01/30/24 02/18/24 History [[place] Solostar] Pantoprazole [Protonix] 40 mg PO DAILY 01/30/24 02/18/24 History Bumetanide [BUMEX] 1 mg PO BID@0900,1600 30 Days #60 02/04/24 02/18/24 Rx tab Losartan [Cozaar] 12.5 mg PO DAILY 30 Days #15 tab 02/04/24 02/18/24 Rx amLODIPine [Norvasc] 5 mg PO BID 30 Days #60 tab 02/04/24 02/18/24 Rx carvediloL [Coreg] 6.25 mg PO BID-W/MEALS 30 Days #60 02/04/24 02/18/24 Rx tab Furosemide [Lasix] 20 mg PO BID 02/18/24 02/18/24 History Gabapentin [Neurontin] 200 mg PO BID 02/18/24 02/18/24 History Potassium Chloride ER [K-Dur 10] 10 meq PO DAILY 02/18/24 02/18/24 History Allergies Allergy/AdvReac Type Severity Reaction Status Date / Time ibuprofen [From Motrin] Allergy Rash/Hives Verified 02/18/24 10:35 Penicillins Allergy Anaphylaxis Verified 02/18/24 10:35 Physical Exam Vitals: Vital Signs Temp Pulse Pulse Resp BP BP Pulse Ox 02/19/24 08:23 97.8 F 68 18 107/48 97 02/19/24 04:41 02/19/24 04:00 98.1 F 72 18 121/64 97 02/19/24 02:00 76 20 02/19/24 00:01 02/19/24 00:00 76 20 108/46 95 02/18/24 20:00 98.3 F 60 20 111/60 93 L 02/18/24 19:32 90 L 02/18/24 17:30 100.7 F H 74 20 127/47 99 02/18/24 16:13 71 24 115/45 100 02/18/24 15:26 98.6 F 71 22 110/37 98 02/18/24 15:05 02/18/24 13:55 99.5 F 66 22 101/34 97 02/18/24 12:31 67 24 108/33 98 FiO2 02/19/24 08:23 02/19/24 04:41 35 02/19/24 04:00 02/19/24 02:00 02/19/24 00:01 35 02/19/24 00:00 02/18/24 20:00 02/18/24 19:32 02/18/24 17:30 02/18/24 16:13 02/18/24 15:26 02/18/24 15:05 35 02/18/24 13:55 02/18/24 12:31 Intake and Output 02/18/24 02/19/24 02/19/24 22:59 06:59 14:59 Intake Total 530 Output Total 200 525 Balance -200 5 Intake: Intake, IV Titration 50 Amount cefTRIAXone 2 gm In 50 Sodium Chloride 0.9% 50 ml @ 100 mls/hr IVPB Q24HR [facility] Rx#:[id number] Oral 480 Output: Urine 200 525 Uretheral (Lynne) 200 Other: Voiding Method Indwelling Catheter Indwelling Catheter Indwelling Catheter # Bowel Movements 1 Weight 90.5 kg Results 02/19/24 10:01 02/19/24 06:48 Cardiac Enzymes 02/18/24 02/18/24 Range/Units 12:15 15:36 Troponin I 5.420 H* 8.040 H* (0.000-0.034) ng/mL Coagulation 02/19/24 Range/Units 10:01 PT 14.6 H (10.0-12.5) sec APTT 29.6 (22.0-30.0) sec CBC 02/19/24 02/19/24 Range/Units 06:48 10:01 WBC 15.9 H 16.2 H (3.8-10.6) k/uL RBC 2.74 L 2.60 L (3.80-5.40) m/uL Hgb 7.4 L 7.2 L (11.4-16.0) gm/dL Hct 24.8 L 23.3 L (34.0-46.0) % Plt Count 120 L 126 L (150-450) k/uL Comprehensive Metabolic Panel 02/19/24 Range/Units 06:48 Sodium 137 (137-145) mmol/L Potassium 4.8 (3.5-5.1) mmol/L Chloride 100 (98-107) mmol/L Carbon Dioxide 32 H (22-30) mmol/L BUN 70 H (7-17) mg/dL Creatinine 2.69 H (0.52-1.04) mg/dL Glucose 131 H (74-99) mg/dL Calcium 8.5 (8.4-10.2) mg/dL Current Medications Generic Name Dose Route Start Last Admin Trade Name Freq PRN Reason Stop Dose Admin Acetaminophen 650 mg 02/18/24 10:19 02/18/24 17:24 Acetaminophen Tab 325 Mg Tab PO 650 mg Q6HR PRN Administration Mild Pain or Fever > 100.5 Hydrocodone Bitart/Acetaminophen 1 each 02/18/24 18:23 02/18/24 20:44 Hydrocodone/Apap 10-325mg 1 Each Tab PO 1 each Q8H PRN Administration Pain Aspirin 81 mg 02/19/24 10:00 02/19/24 11:58 Aspirin 81 Mg PO 81 mg DAILY LD Administration Atorvastatin Calcium 80 mg 02/19/24 21:00 Atorvastatin 80 Mg Tab PO HS LD Bumetanide 1 mg 02/19/24 09:00 02/19/24 08:16 Bumetanide 1 Mg Tab PO 1 mg BID@0900,1600 LD Administration Carvedilol 6.25 mg 02/19/24 07:30 02/19/24 06:52 Carvedilol 6.25 Mg Tab PO 6.25 mg BID-W/MEALS LD Administration Clopidogrel Bisulfate 75 mg 02/19/24 10:00 02/19/24 11:58 Clopidogrel 75 Mg Tab PO 75 mg DAILY LD Administration Gabapentin 200 mg 02/18/24 21:00 02/19/24 08:17 Gabapentin 100 Mg Cap PO 200 mg BID LD Administration Heparin Sodium (Porcine) 0 unit 02/19/24 09:52 Heparin Sodium 1,000 Un/Ml (10ml Vl) IV PER PROTOCOL PRN Low PTT Protocol Sodium Chloride 1,000 mls @ 130 mls/hr 02/18/24 07:45 02/19/24 06:52 Saline 0.9% IV Not Given .Q7H42M [facility] Ceftriaxone Sodium 2 gm/ 50 mls @ 100 mls/hr 02/19/24 09:00 02/19/24 08:18 Sodium Chloride IVPB 02/23/24 09:29 100 mls/hr Q24HR LD Administration Protocol Heparin Sodium/Sodium Chloride 250 mls @ 10 mls/hr 02/19/24 10:00 02/19/24 10:25 25,000 unit/ Sodium Chloride IV 11.05 units/kg/hr .Q24H LD 10 mls/hr Administration Protocol 11.05 UNITS/KG/HR Insulin Aspart 20 unit 02/18/24 21:00 02/19/24 10:47 Insulin Aspart (Novolog) 100 Unit/Ml Vial SQ 20 unit BID LD Administration Insulin Detemir 14 unit 02/18/24 21:00 02/19/24 08:18 Insulin Detemir (Levemir) 100 Unit/Ml Syr SQ 14 unit BID LD Administration Isosorbide Mononitrate 30 mg 02/19/24 09:00 02/19/24 08:17 Isosorbide Mononitrate Er 30 Mg Tab.Er.24h PO 30 mg DAILY LD Administration Levothyroxine Sodium 50 mcg 02/19/24 09:00 02/19/24 08:17 Levothyroxine 50 Mcg Tab PO 50 mcg DAILY LD Administration Losartan Potassium 12.5 mg 02/19/24 09:00 02/19/24 08:16 Losartan 25 Mg Tab PO 12.5 mg DAILY LD Administration Mirtazapine 15 mg 02/18/24 21:00 02/18/24 20:44 Mirtazapine 15 Mg Tab PO 15 mg HS LD Administration Naloxone HCl 0.2 mg 02/18/24 10:19 Naloxone 0.4 Mg/Ml 1 Ml Vial IV Q2M PRN Opioid Reversal Oxybutynin Chloride 5 mg 02/19/24 09:00 02/19/24 10:47 Oxybutynin Chloride 5 Mg Tab PO Not Given DAILY LD Pantoprazole Sodium 40 mg 02/19/24 09:00 02/19/24 08:16 Pantoprazole 40 Mg Tablet PO 40 mg DAILY LD Administration Potassium Chloride 10 meq 02/19/24 09:00 02/19/24 08:17 Potassium Chloride Er 10 Meq Tab.Er.Prt PO 10 meq DAILY LD Administration Sertraline HCl 100 mg 02/18/24 21:00 02/19/24 08:16 Sertraline 100 Mg Tab PO 100 mg BID LD Administration Intake and Output 02/18/24 02/19/24 02/19/24 22:59 06:59 14:59 Intake Total 530 Output Total 200 525 Balance -200 5 Intake: Intake, IV Titration 50 Amount cefTRIAXone 2 gm In 50 Sodium Chloride 0.9% 50 ml @ 100 mls/hr IVPB Q24HR [facility] Rx#:[id number] Oral 480 Output: Urine 200 525 Uretheral (Lyn[place]) 200 Other: Voiding Method Indwelling Catheter Indwelling Catheter Indwelling Catheter # Bowel Movements 1 Weight 90.5 kg 02/19/24 10:01 02/19/24 06:48
--- NOTE | 2024-02-19 12:40 | P.CNPUL ---
History of Present Illness Consult date: 02/19/24 Requesting physician: Aure Ramos Reason for consult: COPD Chief complaint: BiPAP respiratory failure History of present illness: Patient is a 74-year-old female with past medical history significant for coronary artery disease with previous CABG, atrial fibrillation, hyperlipidemia, hypertension, hypothyroidism, diabetes mellitus, CKD stage III, obstructive sleep apnea with home CPAP, chronic hypoxemic respiratory failure. Also follows in the pulmonary office with Dr. Gold in, maintained on an APAP machine pressures of 5 to 20 cm of water. She was recently in the hospital for suspe cted CHF exacerbation fluid overload. At that time NT proBNP was 9500 and she was bradycardic. She presented to the ED again on 02/18/24 with shortness of breath. She was found unresponsive by her son. She is supposed to wear a CPAP at night. She was found to be hypoxic with O2 sat was 76% on nonrebreather. Today the patient was seen on the general medical floor and seemed to be doing well on 4 L of oxygen via nasal cannula other than a little cough along with clear phlegm. WBC 16.0, hemoglobin 7.2, platelets 126, sodium 137, potassium 4.8, BUN 70 and creatinine 2.69. Chest x-ray shows moderate cardiomegaly and diffuse interstitial edema or infiltrates. Troponin 1 is 8.040 ng per ml, with high NT proBNP 6970, cardio has been consulted. Denies any shortness of breath, fever, chills chest pain. She is on 2.9% normal saline at 10 m L/HR, mirtazapine 15 mg, sertraline 100 mg, carvedilol 6.25 mg twice a day, bumetanide 1 mg twice a day, clopidogrel 75 mg, furosemide 20 mg, ftipmnv63 mL/h and Rocephin 100 mm/h. Will continue to monitor. Review of Systems REVIEW OF SYSTEMS: CONSTITUTIONAL: Denies any recent significant weight loss or weight gain. EYES: Denies change in vision. EARS, NOSE, MOUTH, THROAT: Denies headaches, denies sore throat. CARDIOVASCULAR: Denies chest pain, palpitations or syncopal episodes. RESPIRATORY:Has cough, Denies shortness of breath, congestion or hemoptysis. GASTROINTESTINAL: Denies pain, nausea, vomitting, diarrhea GENITOURINARY: Denies hematuria, denies infections. MUSKULOSKELETAL: Denies pain, denies swelling. INTEGUMENTARY: Denies rash, denies eczema. NEUROLOGICAL: Denies recent memory loss, no recent seizure activity. PSYCHIATRIC: Denies anxiety, denies depression. HEMATOLOGIC/LYMPHATIC: Denies anemia, denies enlarged lymph node Past Medical History Past Medical History: Atrial Fibrillation, Coronary Artery Disease (CAD), COPD, Diabetes Mellitus, Eye Disorder, Hyperlipidemia, Hypertension, Osteoarthritis (OA), Pneumonia, Renal Disease, Sleep Apnea/CPAP/BIPAP, Thyroid Disorder Additional Past Medical History / Comment(s): Pt recently admitted to [facility] on 05/08/22 with anemia/had EGD and colonoscopy which showed nonbleeding stomach ul cer/diverticular disease and colon polyp, pt received blood transfusions. Other hx: 02/12/22 covid/pneumonia/sepsis, other past pneumonias, acute hypoxic respiratory failure/now on home oxygen ATC, new A fib with RVR, IDDM type II, neuropathy bilateral feet, L eye retinal bleed/lasik eye surgery, R eye cataract, bilateral eye macular degeneration/gets injections/poor vision, CKD stage III, anemia, UTI/sepsis, bilateral leg lymphedema, FLORES/does not have cpap machine at this time, diverticulitis, gout, chronic back pain, rheumatic fever, hypothyroid. History of Any Multi-Drug Resistant Organisms: ESBL Date of last positivie culture/infection: 05/22/22 ESBL Klebsiella MDRO Source:: Urine Past Surgical History: Bariatric Surgery, Section, Cholecystectomy, Coronary Bypass/CABG, Heart Catheterization, Hysterectomy, Orthopedic Surgery, Tonsillectomy Additional Past Surgical History / Comment(s): EGD, colonoscopy, 2 vessel CABG in 1996, bilateral carpal tunnel release, lap band, L eye laser surgery, Past Anesthesia/Blood Transfusion Reactions: No Reported Reaction Past Psychological History: Depression Additional Psychological History / Comment(s): . Smoking Status: Never smoker Past Alcohol Use History: None Reported Additional Past Alcohol Use History / Comment(s): Patient is a lifelong nonsmoker. Past Drug Use History: None Reported - Past Family History Father History Unknown: Yes Family Medical History: Cancer, Coronary Artery Disease (CAD), Diabetes Mellitus Additional Family Medical History / Comment(s): Prostate cancer Mother History Unknown: Yes Family Medical History: Cancer Additional Family Medical History / Comment(s): Bone cancer. Medications and Allergies Home Medications Medication Instructions Recorded Confirmed Type Atorvastatin [Lipitor] 40 mg PO HS 08/10/16 02/18/24 History Isosorbide Mononitrate [Isosorbide 30 mg PO DAILY 08/10/16 02/18/24 History Mononitrate ER] Oxybutynin Chloride 5 mg PO DAILY 08/10/16 02/18/24 History Mirtazapine [Remeron] 15 mg PO HS 04/12/22 02/18/24 History Acetaminophen Tab [Tylenol] 650 mg PO Q6H PRN 05/08/22 02/18/24 History Levothyroxine Sodium [Synthroid] 50 mcg PO DAILY 12/17/22 02/18/24 History Sertraline [Zoloft] 100 mg PO BID 12/17/22 02/18/24 History HYDROcodone/APAP 10-325MG [[place] 1 tab PO Q8H PRN #9 tab 09/24/23 02/18/24 Rx 10-325] INSULIN ASPART (NovoLOG) [NovoLOG 20 unit SQ BID 01/30/24 02/18/24 History (formulary)] Insulin Glargine,Hum.rec.anlog 14 units SQ BID 01/30/24 02/18/24 History [Toujeo Solostar] Pantoprazole [Protonix] 40 mg PO DAILY 01/30/24 02/18/24 History Bumetanide [BUMEX] 1 mg PO BID@0900,1600 30 Days #60 02/04/24 02/18/24 Rx tab Losartan [Cozaar] 12.5 mg PO DAILY 30 Days #15 tab 02/04/24 02/18/24 Rx amLODIPine [Norvasc] 5 mg PO BID 30 Days #60 tab 02/04/24 02/18/24 Rx carvediloL [Coreg] 6.25 mg PO BID-W/MEALS 30 Days #60 02/04/24 02/18/24 Rx tab Furosemide [Lasix] 20 mg PO BID 02/18/24 02/18/24 History Gabapentin [Neurontin] 200 mg PO BID 02/18/24 02/18/24 History Potassium Chloride ER [K-Dur 10] 10 meq PO DAILY 02/18/24 02/18/24 History Allergies Allergy/AdvReac Type Severity Reaction Status Date / Time ibuprofen [From Motrin] Allergy Rash/Hives Verified 02/18/24 10:35 Penicillins Allergy Anaphylaxis Verified 02/18/24 10:35 Physical Exam Vitals: Vital Signs Temp Pulse Pulse Resp BP BP Pulse Ox 02/19/24 08:23 97.8 F 68 18 107/48 97 02/19/24 04:41 02/19/24 04:00 98.1 F 72 18 121/64 97 02/19/24 02:00 76 20 02/19/24 00:01 02/19/24 00:00 76 20 108/46 95 02/18/24 20:00 98.3 F 60 20 111/60 93 L 02/18/24 19:32 90 L 02/18/24 17:30 100.7 F H 74 20 127/47 99 02/18/24 16:13 71 24 115/45 100 02/18/24 15:26 98.6 F 71 22 110/37 98 02/18/24 15:05 02/18/24 13:55 99.5 F 66 22 101/34 97 02/18/24 12:31 67 24 108/33 98 FiO2 02/19/24 08:23 02/19/24 04:41 35 02/19/24 04:00 02/19/24 02:00 02/19/24 00:01 35 02/19/24 00:00 02/18/24 20:00 02/18/24 19:32 02/18/24 17:30 02/18/24 16:13 02/18/24 15:26 02/18/24 15:05 35 02/18/24 13:55 02/18/24 12:31 Intake and Output 02/18/24 02/19/24 02/19/24 22:59 06:59 14:59 Intake Total 530 Output Total 200 525 Balance -200 5 Intake: Intake, IV Titration 50 Amount cefTRIAXone 2 gm In 50 Sodium Chloride 0.9% 50 ml @ 100 mls/hr IVPB Q24HR [facility] Rx#:[id number] Oral 480 Output: Urine 200 525 Uretheral (Lynne) 200 Other: Voiding Method Indwelling Catheter Indwelling Catheter Indwelling Catheter # Bowel Movements 1 Weight 90.5 kg GENERAL EXAM: 74-year-old obese female, in no acute distress. HEAD: Normocephalic and atraumatic EYES: Normal reaction of pupils, equal size. NOSE: Clear with pink turbinates. THROAT: No erythema or exudates. NECK: No masses, no JVD. CHEST: No chest wall deformity. LUNGS: Equal air entry with no crackles, wheeze, rhonchi or dullness. On 4L O2 via nasal cannula. CVS: S1 and S2 normal with no audible murmur, regular rhythm. No extra heart sounds ABDOMEN: No masses or tenderness SPINE: No scoliosis or deformity SKIN: No rashes CENTRAL NERVOUS SYSTEM: Alert and technically oriented x 3. No focal deficits, tone is normal in all 4 extremities. EXTREMITIES: No clubbing, or cyanosis. Results - Laboratory Findings CBC and BMP: 02/19/24 10:01 02/19/24 06:48 PT/INR, D-dimer PT 14.6 sec (10.0-12.5) H 02/19/24 10:01 INR 1.4 (<1.2) H 02/19/24 10:01 Abnormal lab findings: Abnormal Labs 02/18/24 02/18/24 02/18/24 07:49 07:49 07:49 WBC 16.3 H RBC 3.06 L Hgb 8.4 L Hct 27.5 L MCHC 30.4 L RDW 17.1 H Plt Count 149 L Neutrophils # 15.2 H Lymphocytes # 0.2 L PT INR VBG pCO2 VBG HCO3 Carbon Dioxide 37 H BUN 63 H Creatinine 2.42 H Glucose POC Glucose (mg/dL) Troponin I Albumin 3.4 L Urine Appearance Turbid H Urine Protein Trace H Urine Blood Trace H Ur Leukocyte Esterase Large H Urine RBC 7 H Urine WBC 166 H Urine WBC Clumps Moderate H Ur Squamous Epith Cells 30 H Urine Bacteria Many H 02/18/24 02/18/24 02/18/24 07:49 08:15 10:11 WBC RBC Hgb Hct MCHC RDW Plt Count Neutrophils # Lymphocytes # PT INR VBG pCO2 63 H VBG HCO3 35 H Carbon Dioxide BUN Creatinine Glucose POC Glucose (mg/dL) 113 H Troponin I 0.540 H* Albumin Urine Appearance Urine Protein Urine Blood Ur Leukocyte Esterase Urine RBC Urine WBC Urine WBC Clumps Ur Squamous Epith Cells Urine Bacteria 02/18/24 02/18/24 02/18/24 12:15 15:32 15:36 WBC RBC Hgb Hct MCHC RDW Plt Count Neutrophils # Lymphocytes # PT INR VBG pCO2 VBG HCO3 Carbon Dioxide BUN Creatinine Glucose POC Glucose (mg/dL) 126 H Troponin I 5.420 H* 8.040 H* Albumin Urine Appearance Urine Protein Urine Blood Ur Leukocyte Esterase Urine RBC Urine WBC Urine WBC Clumps Ur Squamous Epith Cells Urine Bacteria 02/18/24 02/19/24 02/19/24 20:37 06:12 06:48 WBC 15.9 H RBC 2.74 L Hgb 7.4 L Hct 24.8 L MCHC 30.1 L RDW 17.3 H Plt Count 120 L Neutrophils # 15.0 H Lymphocytes # 0.3 L PT INR VBG pCO2 VBG HCO3 Carbon Dioxide BUN Creatinine Glucose POC Glucose (mg/dL) 138 H 150 H Troponin I Albumin Urine Appearance Urine Protein Urine Blood Ur Leukocyte Esterase Urine RBC Urine WBC Urine WBC Clumps Ur Squamous Epith Cells Urine Bacteria 02/19/24 02/19/24 02/19/24 06:48 10:01 10:01 WBC 16.2 H RBC 2.60 L Hgb 7.2 L Hct 23.3 L MCHC RDW 17.3 H Plt Count 126 L Neutrophils # 15.2 H Lymphocytes # 0.4 L PT 14.6 H INR 1.4 H VBG pCO2 VBG HCO3 Carbon Dioxide 32 H BUN 70 H Creatinine 2.69 H Glucose 131 H POC Glucose (mg/dL) Troponin I Albumin Urine Appearance Urine Protein Urine Blood Ur Leukocyte Esterase Urine RBC Urine WBC Urine WBC Clumps Ur Squamous Epith Cells Urine Bacteria 02/19/24 11:32 WBC RBC Hgb Hct MCHC RDW Plt Count Neutrophils # Lymphocytes # PT INR VBG pCO2 VBG HCO3 Carbon Dioxide BUN Creatinine Glucose POC Glucose (mg/dL) 144 H Troponin I Albumin Urine Appearance Urine Protein Urine Blood Ur Leukocyte Esterase Urine RBC Urine WBC Urine WBC Clumps Ur Squamous Epith Cells Urine Bacteria Assessment and Plan Assessment: Obstructive sleep apnea, maintained at home APAP machine with minimum pressure of 4 and maximum 20 cm H2O Obesity hypoventilation syndrome Suspected CHF exacerbation, hypoxemic respiratory failure secondary to exacerbation of heart failure History of coronary artery disease with previous CABG Diabetes mellitus, insulin-dependent History of hypothyroidism Morbid obesity Plan: Patient's medications, labs, imaging were reviewed Continue supplemental oxygen Started heparin 5 mg Continue with oxygen 50 mcg Rocephin 100 mL/hr Furosemide 20 mg, bumetanide 1 mg DVT prophylaxis GI prophylaxis We will continue to follow. Minutes spent on the visit: 20 Time with Patient: Less than 30
--- NOTE | 2024-02-19 12:41 | P.HPIM ---
History of Present Illness H&P Date: 02/19/24 Chief Complaint: dyspnea hypoxia and chest pain this 74-year-old female well-known to my practice long-standing history of coronary artery disease with 2 vessel CABG 97 A. fib hypertension type 2 diabetes. Pulmonary hypertension chronic kidney disease was recently seen in my office patient presented with chest pain elevated troponins, low oxygen sats at home, patient is currently on 4 L nasal cannula, and currently uses BiPAP routinely at home Review of Systems Constitutional: Reports fatigue, Reports malaise, Reports weakness Ears, nose, mouth and throat: Reports as per HPI Cardiovascular: Reports chest pain, Reports shortness of breath Respiratory: Reports congestion, Reports dyspnea, Reports sleep apnea Gastrointestinal: Reports as per HPI Genitourinary: Reports as per HPI Menstruation: Reports postmenopausal Musculoskeletal: Reports myalgias Integumentary: Reports as per HPI (bilateral lower extreme peripheral neurop athy) Neurological: Reports as per HPI Psychiatric: Reports as per HPI, Reports anxiety, Reports depression Past Medical History Past Medical History: Atrial Fibrillation, Coronary Artery Disease (CAD), COPD, Diabetes Mellitus, Eye Disorder, Hyperlipidemia, Hypertension, Osteoarthritis (OA), Pneumonia, Renal Disease, Sleep Apnea/CPAP/BIPAP, Thyroid Disorder Additional Past Medical History / Comment(s): Pt recently admitted to [facility] on 05/08/22 with anemia/had EGD and colonoscopy which showed nonbleeding stomach ulcer/diverticular disease and colon polyp, pt received blood transfusions. Other hx: 02/12/22 covid/pneumonia/sepsis, other past pneumonias, acute hypoxic respiratory failure/now on home oxygen ATC, new A fib with RVR, IDDM type II, neuropathy bilateral feet, L eye retinal bleed/lasik eye surgery, R eye cataract, bilateral eye macular degeneration/gets injections/poor vision, CKD stage III, anemia, UTI/sepsis, bilateral leg lymphedema, FLORES/does not have cpap machine at this time, diverticulitis, gout, chronic back pain, rheumatic fever, hypothyroid. History of Any Multi-Drug Resistant Organisms: ESBL Date of last positivie culture/infection: 05/22/22 ESBL Klebsiella MDRO Source:: Urine Past Surgical History: Bariatric Surgery, Section, Cholecystectomy, Coronary Bypass/CABG, Heart Catheterization, Hysterectomy, Orthopedic Surgery, Tonsillectomy Additional Past Surgical History / Comment(s): EGD, colonoscopy, 2 vessel CABG in 1996, bilateral carpal tunnel release, lap band, L eye laser surgery, Past Anesthesia/Blood Transfusion Reactions: No Reported Reaction Past Psychological History: Depression Additional Psychological History / Comment(s): . Smoking Status: Never smoker Past Alcohol Use History: None Reported Additional Past Alcohol Use History / Comment(s): Patient is a lifelong nonsmoker. Past Drug Use History: None Reported - Past Family History Father History Unknown: Yes Family Medical History: Cancer, Coronary Artery Disease (CAD), Diabetes Mellitus Additional Family Medical History / Comment(s): Prostate cancer Mother History Unknown: Yes Family Medical History: Cancer Additional Family Medical History / Comment(s): Bone cancer. Medications and Allergies Home Medications Medication Instructions Recorded Confirmed Type Atorvastatin [Lipitor] 40 mg PO HS 08/10/16 02/18/24 History Isosorbide Mononitrate [Isosorbide 30 mg PO DAILY 08/10/16 02/18/24 History Mononitrate ER] Oxybutynin Chloride 5 mg PO DAILY 08/10/16 02/18/24 History Mirtazapine [Remeron] 15 mg PO HS 04/12/22 02/18/24 History Acetaminophen Tab [Tylenol] 650 mg PO Q6H PRN 05/08/22 02/18/24 History Levothyroxine Sodium [Synthroid] 50 mcg PO DAILY 12/17/22 02/18/24 History Sertraline [Zoloft] 100 mg PO BID 12/17/22 02/18/24 History HYDROcodone/APAP 10-325MG [[place] 1 tab PO Q8H PRN #9 tab 09/24/23 02/18/24 Rx 10-325] INSULIN ASPART (NovoLOG) [NovoLOG 20 unit SQ BID 01/30/24 02/18/24 History (formulary)] Insulin Glargine,Hum.rec.anlog 14 units SQ BID 01/30/24 02/18/24 History [Toujeo Solostar] Pantoprazole [Protonix] 40 mg PO DAILY 01/30/24 02/18/24 History Bumetanide [BUMEX] 1 mg PO BID@0900,1600 30 Days #60 02/04/24 02/18/24 Rx tab Losartan [Cozaar] 12.5 mg PO DAILY 30 Days #15 tab 02/04/24 02/18/24 Rx amLODIPine [Norvasc] 5 mg PO BID 30 Days #60 tab 02/04/24 02/18/24 Rx carvediloL [Coreg] 6.25 mg PO BID-W/MEALS 30 Days #60 02/04/24 02/18/24 Rx tab Furosemide [Lasix] 20 mg PO BID 02/18/24 02/18/24 History Gabapentin [Neurontin] 200 mg PO BID 02/18/24 02/18/24 History Potassium Chloride ER [K-Dur 10] 10 meq PO DAILY 02/18/24 02/18/24 History Allergies Allergy/AdvReac Type Severity Reaction Status Date / Time ibuprofen [From Motrin] Allergy Rash/Hives Verified 02/18/24 10:35 Penicillins Allergy Anaphylaxis Verified 02/18/24 10:35 Physical Exam Osteopathic Statement: *. No significant issues noted on an osteopathic structural exam other than those noted in the History and Physical/Consult. Vitals: Vital Signs Temp Pulse Pulse Resp BP BP Pulse Ox 02/19/24 08:23 97.8 F 68 18 107/48 97 02/19/24 04:41 02/19/24 04:00 98.1 F 72 18 121/64 97 02/19/24 02:00 76 20 02/19/24 00:01 02/19/24 00:00 76 20 108/46 95 02/18/24 20:00 98.3 F 60 20 111/60 93 L 02/18/24 19:32 90 L 02/18/24 17:30 100.7 F H 74 20 127/47 99 02/18/24 16:13 71 24 115/45 100 02/18/24 15:26 98.6 F 71 22 110/37 98 02/18/24 15:05 02/18/24 13:55 99.5 F 66 22 101/34 97 02/18/24 12:31 67 24 108/33 98 FiO2 02/19/24 08:23 02/19/24 04:41 35 02/19/24 04:00 02/19/24 02:00 02/19/24 00:01 35 02/19/24 00:00 02/18/24 20:00 02/18/24 19:32 02/18/24 17:30 02/18/24 16:13 02/18/24 15:26 02/18/24 15:05 35 02/18/24 13:55 02/18/24 12:31 Intake and Output 02/18/24 02/19/24 02/19/24 22:59 06:59 14:59 Intake Total 530 Output Total 200 525 Balance -200 5 Intake: Intake, IV Titration 50 Amount cefTRIAXone 2 gm In 50 Sodium Chloride 0.9% 50 ml @ 100 mls/hr IVPB Q24HR [facility] Rx#:[id number] Oral 480 Output: Urine 200 525 Uretheral (Lynne) 200 Other: Voiding Method Indwelling Catheter Indwelling Catheter Indwelling Catheter # Bowel Movements 1 Weight 90.5 kg General: [Patient awake, alert and oriented times 3. Patient in no acute distress. morbidly obese HEENT: [PERRL. EOMI. No pharyngeal erythema or exudate.] Neck: [No adenopathy.] Cardiac: [Heart regularly irregular grade 3 systolic ejection murmur Midsternal chest scar Lungs: [Clear to auscultation bilaterally.] Abdomen: [No mass. No organomegaly. Bowel sounds presnt and normoactive in all 4 quadrants.] Extremes: [No edema no cyanosis no claudication normal pulses] : normal female genitalia Musculoskeletal: [No joint erythema, edema or tenderness.] Skin: [No rash.] Neurologic: [No lateralizing deficits. CN II - XII grossly intact.] Lymphatic: [No adenopathy.] Results CBC & Chem 7: 02/19/24 10:01 02/19/24 06:48 Labs: Abnormal Lab Results - Last 24 Hours (Table) 02/18/24 02/18/24 02/18/24 Range/Units 12:15 15:32 15:36 WBC (3.8-10.6) k/uL RBC (3.80-5.40) m/uL Hgb (11.4-16.0) gm/dL Hct (34.0-46.0) % MCHC (31.0-37.0) g/dL RDW (11.5-15.5) % Plt Count (150-450) k/uL Neutrophils # (1.3-7.7) k/uL Lymphocytes # (1.0-4.8) k/uL PT (10.0-12.5) sec INR (<1.2) Carbon Dioxide (22-30) mmol/L BUN (7-17) mg/dL Creatinine (0.52-1.04) mg/dL Glucose (74-99) mg/dL POC Glucose (mg/dL) 126 H (70-110) mg/dL Troponin I 5.420 H* 8.040 H* (0.000-0.034) ng/mL 02/18/24 02/19/24 02/19/24 Range/Units 20:37 06:12 06:48 WBC 15.9 H (3.8-10.6) k/uL RBC 2.74 L (3.80-5.40) m/uL Hgb 7.4 L (11.4-16.0) gm/dL Hct 24.8 L (34.0-46.0) % MCHC 30.1 L (31.0-37.0) g/dL RDW 17.3 H (11.5-15.5) % Plt Count 120 L (150-450) k/uL Neutrophils # 15.0 H (1.3-7.7) k/uL Lymphocytes # 0.3 L (1.0-4.8) k/uL PT (10.0-12.5) sec INR (<1.2) Carbon Dioxide (22-30) mmol/L BUN (7-17) mg/dL Creatinine (0.52-1.04) mg/dL Glucose (74-99) mg/dL POC Glucose (mg/dL) 138 H 150 H (70-110) mg/dL Troponin I (0.000-0.034) ng/mL 02/19/24 02/19/24 02/19/24 Range/Units 06:48 10:01 10:01 WBC 16.2 H (3.8-10.6) k/uL RBC 2.60 L (3.80-5.40) m/uL Hgb 7.2 L (11.4-16.0) gm/dL Hct 23.3 L (34.0-46.0) % MCHC (31.0-37.0) g/dL RDW 17.3 H (11.5-15.5) % Plt Count 126 L (150-450) k/uL Neutrophils # 15.2 H (1.3-7.7) k/uL Lymphocytes # 0.4 L (1.0-4.8) k/uL PT 14.6 H (10.0-12.5) sec INR 1.4 H (<1.2) Carbon Dioxide 32 H (22-30) mmol/L BUN 70 H (7-17) mg/dL Creatinine 2.69 H (0.52-1.04) mg/dL Glucose 131 H (74-99) mg/dL POC Glucose (mg/dL) (70-110) mg/dL Troponin I (0.000-0.034) ng/mL 02/19/24 Range/Units 11:32 WBC (3.8-10.6) k/uL RBC (3.80-5.40) m/uL Hgb (11.4-16.0) gm/dL Hct (34.0-46.0) % MCHC (31.0-37.0) g/dL RDW (11.5-15.5) % Plt Count (150-450) k/uL Neutrophils # (1.3-7.7) k/uL Lymphocytes # (1.0-4.8) k/uL PT (10.0-12.5) sec INR (<1.2) Carbon Dioxide (22-30) mmol/L BUN (7-17) mg/dL Creatinine (0.52-1.04) mg/dL Glucose (74-99) mg/dL POC Glucose (mg/dL) 144 H (70-110) mg/dL Troponin I (0.000-0.034) ng/mL Microbiology - Last 24 Hours (Table) 02/18/24 07:40 Blood Culture Gram Stain - Preliminary Blood Blood Culture - Preliminary Molecular ID 02/18/24 07:35 Blood Culture Gram Stain - Preliminary Blood Thrombosis Risk Factor Assmnt - DVT/VTE Prophylaxis DVT/VTE Prophylaxis: Pharmacologic Prophylaxis ordered (patient already on apixaban) Assessment and Plan (1) Acute encephalopathy Current Visit: Yes Status: Acute Code(s): G93.40 - ENCEPHALOPATHY, UNSPECIFIED SNOMED Code(s): 47565751 (2) Acute kidney injury Current Visit: Yes Status: Acute Code(s): N17.9 - ACUTE KIDNEY FAILURE, UNSPECIFIED SNOMED Code(s): 40630876 (3) BiPAP (biphasic positive airway pressure) dependence Current Visit: Yes Status: Acute Code(s): Z99.89 - DEPENDENCE ON OTHER ENABLING MACHINES AND DEVICES SNOMED Code(s): 638333100 (4) Hypoxia Current Visit: Yes Status: Acute Code(s): R09.02 - HYPOXEMIA SNOMED Code(s): 388003185 (5) NSTEMI (non-ST elevated myocardial infarction) Current Visit: Yes Status: Acute Code(s): I21.4 - NON-ST ELEVATION (NSTEMI) MYOCARDIAL INFARCTION SNOMED Code(s): 43636141 (6) Pulmonary edema Current Visit: Yes Status: Acute Code(s): J81.1 - CHRONIC PULMONARY EDEMA SNOMED Code(s): 35786966 (7) Urinary tract infection Current Visit: Yes Status: Acute Code(s): N39.0 - URINARY TRACT INFECTION, SITE NOT SPECIFIED SNOMED Code(s): 01454975 (8) Acquired hypothyroidism Current Visit: No Status: Acute Code(s): E03.9 - HYPOTHYROIDISM, UNSPECIFIED SNOMED Code(s): 801828744 (9) Acute on chronic diastolic (congestive) heart failure Current Visit: No Status: Acute Code(s): I50.33 - ACUTE ON CHRONIC DIASTOLIC (CONGESTIVE) HEART FAILURE SNOMED Code(s): 752680333 (10) CKD (chronic kidney disease) Current Visit: No Status: Acute Code(s): N18.9 - CHRONIC KIDNEY DISEASE, UNSPECIFIED SNOMED Code(s): 138751489 (11) Coronary artery disease with history of coronary revascularization Current Visit: No Status: Acute Code(s): I25.10 - ATHSCL HEART DISEASE OF [place] CORONARY ARTERY W/O ANG PCTRS; Z98.61 - CORONARY ANGIOPLASTY STATUS SNOMED Code(s): 85089588 Plan: patient admitted to the hospital Cardiology consult 2-D echo Increase atorvastatin 80 mg' Anticipate cardiac catheterization Further orders pending Time with Patient: Greater than 30
--- NOTE | 2024-02-19 13:04 | P.NPCON ---
History of Present Illness - Reason for Consult Consult date: 02/19/24 - Chief Complaint SOB - History of Present Illness Patient is a 74 yo female presented to ED with shortness of breath. Patient states that her oxygen saturations at home were very low and she thinks that she was not very responsive. The patient is currently on 4 L nasal cannula. She states her shortness of breath is improving. She denies having any chest pain or pressure prior to coming to the hospital or since being admitted. The patient was also found to be febrile with a temperature of 102. She has been started on IV antibiotics per primary medicine. She does have history of CKD. No other complaints. Breathing improved this afternoon VITAL SIGNS: Reviewed. GENERAL: Well-developed in no acute distress. HEENT: Head is normocephalic LUNGS: Bilateral crackles, diminished breath sounds HEART: Regular rate and rhythm. S1 and S2 heard. Systolic murmur noted. ABDOMEN: Soft. Obese, Nondistended. Nontender. EXTREMITIES: Normal range of motion. No clubbing or cyanosis. Peripheral pulses intact. + lower extremity edema NEUROLOGIC: Awake and alert. Oriented x 3. Review of Systems Constitutional: Reports as per HPI Past Medical History Past Medical History: Atrial Fibrillation, Coronary Artery Disease (CAD), COPD, Diabetes Mellitus, Eye Disorder, Hyperlipidemia, Hypertension, Osteoarthritis (OA), Pneumonia, Renal Disease, Sleep Apnea/CPAP/BIPAP, Thyroid Disorder Additional Past Medical History / Comment(s): Pt recently admitted to [facility] on 05/08/22 with anemia/had EGD and colonoscopy which showed nonbleeding stomach ulcer/diverticular disease and colon polyp, pt received blood transfusions. Other hx: 02/12/22 covid/pneumonia/sepsis, other past pneumonias, acute hypoxic respiratory failure/now on home oxygen ATC, new A fib with RVR, IDDM type II, neuropathy bilateral feet, L eye retinal bleed/lasik eye surgery, R eye cataract, bilateral eye macular degeneration/gets injections/poor vision, CKD stage III, anemia, UTI/sepsis, bilateral leg lymphedema, FLORES/does not have cpap machine at this time, diverticulitis, gout, chronic back pain, rheumatic fever, hypothyroid. History of Any Multi-Drug Resistant Organisms: ESBL Date of last positivie culture/infection: 05/22/22 ESBL Klebsiella MDRO Source:: Urine Past Surgical History: Bariatric Surgery, Section, Cholecystectomy, Coronary Bypass/CABG, Heart Catheterization, Hysterectomy, Orthopedic Surgery, Tonsillectomy Additional Past Surgical History / Comment(s): EGD, colonoscopy, 2 vessel CABG in 1996, bilateral carpal tunnel release, lap band, L eye laser surgery, Past Anesthesia/Blood Transfusion Reactions: No Reported Reaction Past Psychological History: Depression Additional Psychological History / Comment(s): . Smoking Status: Never smoker Past Alcohol Use History: None Reported Additional Past Alcohol Use History / Comment(s): Patient is a lifelong nonsmoker. Past Drug Use History: None Reported - Past Family History Father History Unknown: Yes Family Medical History: Cancer, Coronary Artery Disease (CAD), Diabetes Mellitus Additional Family Medical History / Comment(s): Prostate cancer Mother History Unknown: Yes Family Medical History: Cancer Additional Family Medical History / Comment(s): Bone cancer. Medications and Allergies Home Medications Medication Instructions Recorded Confirmed Type Atorvastatin [Lipitor] 40 mg PO HS 08/10/16 02/18/24 History Isosorbide Mononitrate [Isosorbide 30 mg PO DAILY 08/10/16 02/18/24 History Mononitrate ER] Oxybutynin Chloride 5 mg PO DAILY 08/10/16 02/18/24 History Mirtazapine [Remeron] 15 mg PO HS 04/12/22 02/18/24 History Acetaminophen Tab [Tylenol] 650 mg PO Q6H PRN 05/08/22 02/18/24 History Levothyroxine Sodium [Synthroid] 50 mcg PO DAILY 12/17/22 02/18/24 History Sertraline [Zoloft] 100 mg PO BID 12/17/22 02/18/24 History HYDROcodone/APAP 10-325MG [[place] 1 tab PO Q8H PRN #9 tab 09/24/23 02/18/24 Rx 10-325] INSULIN ASPART (NovoLOG) [NovoLOG 20 unit SQ BID 01/30/24 02/18/24 History (formulary)] Insulin Glargine,Hum.rec.anlog 14 units SQ BID 01/30/24 02/18/24 History [Touceci Solostar] Pantoprazole [Protonix] 40 mg PO DAILY 01/30/24 02/18/24 History Bumetanide [BUMEX] 1 mg PO BID@0900,1600 30 Days #60 07/05/24 07/19/24 Rx tab Losartan [Cozaar] 12.5 mg PO DAILY 30 Days #15 tab 02/04/24 02/18/24 Rx amLODIPine [Norvasc] 5 mg PO BID 30 Days #60 tab 02/04/24 02/18/24 Rx carvediloL [Coreg] 6.25 mg PO BID-W/MEALS 30 Days #60 02/04/24 02/18/24 Rx tab Furosemide [Lasix] 20 mg PO BID 02/18/24 02/18/24 History Gabapentin [Neurontin] 200 mg PO BID 02/18/24 02/18/24 History Potassium Chloride ER [K-Dur 10] 10 meq PO DAILY 02/18/24 02/18/24 History Allergies Allergy/AdvReac Type Severity Reaction Status Date / Time ibuprofen [From Motrin] Allergy Rash/Hives Verified 02/18/24 10:35 Penicillins Allergy Anaphylaxis Verified 02/18/24 10:35 Physical Exam Vitals: Vital Signs Temp Pulse Pulse Resp BP BP Pulse Ox 02/19/24 08:23 97.8 F 68 18 107/48 97 02/19/24 04:41 02/19/24 04:00 98.1 F 72 18 121/64 97 02/19/24 02:00 76 20 02/19/24 00:01 02/19/24 00:00 76 20 108/46 95 02/18/24 20:00 98.3 F 60 20 111/60 93 L 02/18/24 19:32 90 L 02/18/24 17:30 100.7 F H 74 20 127/47 99 02/18/24 16:13 71 24 115/45 100 02/18/24 15:26 98.6 F 71 22 110/37 98 02/18/24 15:05 02/18/24 13:55 99.5 F 66 22 101/34 97 FiO2 02/19/24 08:23 02/19/24 04:41 35 02/19/24 04:00 02/19/24 02:00 02/19/24 00:01 35 02/19/24 00:00 02/18/24 20:00 02/18/24 19:32 02/18/24 17:30 02/18/24 16:13 02/18/24 15:26 02/18/24 15:05 35 02/18/24 13:55 Intake and Output 02/18/24 02/19/24 02/19/24 22:59 06:59 14:59 Intake Total 530 Output Total 200 525 Balance -200 5 Intake: Intake, IV Titration 50 Amount cefTRIAXone 2 gm In 50 Sodium Chloride 0.9% 50 ml @ 100 mls/hr IVPB Q24HR LD Rx#:[id number] Oral 480 Output: Urine 200 525 Uretheral (Lynne) 200 Other: Voiding Method Indwelling Catheter Indwelling Catheter Indwelling Catheter # Bowel Movements 1 Weight 90.5 kg Results - Lab Results Most recent lab results Calcium 8.5 mg/dL (8.4-10.2) 02/19/24 06:48 02/19/24 10:01 02/19/24 06:48 Assessment and Plan Assessment: 1. Acute kidney injury secondary to ATN likely secondary to cardiorenal syndrome. Creatinine 2.7 today. No hydronephrosis noted on recent kidney ultrasound. UA consistent with UTI. 2. Chronic kidney disease stage IIIb with baseline creatinine 1.5-1.6 secondary to nephrosclerosis and cardiorenal syndrome. 3. Acute on chronic diastolic CHF with moderate aortic stenosis, moderate mitral regurgitation, severe tricuspid regurgitation and pulmonary hypertension. 4. Volume overload with hypoxia. 5. Diabetes mellitus. 6. Coronary artery disease status post CABG with elevated troponin 7. Anemia. Iron deficiency noted. status post IV iron 8. Metabolic alkalosis from diuresis and FLORES 9. Fevers with UTI Plan: Continue with Bumex PO Stop IVF and Losartan Monitor daily weight and BMP Rocephin IV, await urine cultures [facility] [place] when stable renal function
[2024-02-19 16:09] LABS: Glucose,Whole Blood 98 mg/dL (70-110)
[2024-02-19] MEDS: HEPARIN SODIUM 1,000 UN/ML (10ML VL) IV PRN (18:20)
[2024-02-19 20:09] LABS: Glucose,Whole Blood 137 mg/dL (70-110)
[2024-02-19] MEDS: ATORVASTATIN 80 MG TAB PO SCH (20:13)
[2024-02-20 02:25] LABS: INR 1.2 (<1.2); Partial Thromboplastin Time 28.3 sec (22.0-30.0); Prothrombin Time 12.8 sec (10.0-12.5)
[2024-02-20 02:45] LABS: Anisocytosis Slight; Basophils % (A) 0 %; Eosinophils # (A) 0.1 k/uL (0-0.7); Eosinophils % (A) 0 %; HCT 22.4 % (34.0-46.0); Hypochromasia Moderate; Lymphocytes # (A) 0.5 k/uL (1.0-4.8); Lymphocytes % (A) 4 %; MCH 29.1 pg (25.0-35.0); MCHC 31.4 g/dL (31.0-37.0); MCV 92.7 fL (80.0-100.0); Mean Platelet Volume 9.8; Monocytes # (A) 0.9 k/uL (0-1.0); Monocytes % (A) 6 %; Neutrophils # (A) 13.5 k/uL (1.3-7.7); Neutrophils % (A) 89 %; Platelet Count 101 k/uL (150-450); RBC 2.42 m/uL (3.80-5.40); RDW 17.6 % (11.5-15.5); WBC 15.3 k/uL (3.8-10.6)
[2024-02-20 06:06] LABS: Glucose,Whole Blood 107 mg/dL (70-110)
--- NOTE | 2024-02-20 06:50 | P.PN ---
Subjective Progress Note Date: 02/20/24 Principal diagnosis: Lethargy, somnolence. Patient is a 74-year-old female with past medical history significant for coronary artery disease with previous CABG, atrial fibrillation, hyperlipidemia, hypertension, hypothyroidism, diabetes mellitus, CKD stage III, obstructive sleep apnea with home CPAP, chronic hypoxemic respiratory failure. Also follows in the pulmonary office with Dr. Asif aguayo, maintained on an APAP machine pressures of 5 to 20 cm of water. She was recently in the hospital for suspected CHF exacerbation fluid overload. At that time NT proBNP was 9500 and she was bradycardic. She presented to the ED again on 02/18/24 with shortness of breath. She was found unresponsive by her son. She is supposed to wear a CPAP at night. She was found to be hypoxic with O2 sat was 76% on nonrebreather. Today the patient was seen on the general medical floor and seemed to be doing well on 4 L of oxygen via nasal cannula other than a little cough along with aman ar phlegm. WBC 16.0, hemoglobin 7.2, platelets 126, sodium 137, potassium 4.8, BUN 70 and creatinine 2.69. Chest x-ray shows moderate cardiomegaly and diffuse interstitial edema or infiltrates. Troponin 1 is 8.040 ng per ml, with high NT proBNP 6970, cardio has been consulted. Denies any shortness of breath, fever, chills chest pain. She is on 2.9% normal saline at 10 m L/HR, mirtazapine 15 m g, sertraline 100 mg, carvedilol 6.25 mg twice a day, bumetanide 1 mg twice a day, clopidogrel 75 mg, furosemide 20 mg, [id number] mL/h and Rocephin 100 mm/h. Will continue to monitor. Progress note dated February 20, 2024. 74-year-old female seen yesterday in consultation. The patient was admitted w ith a diagnosis of somnolence and lethargy, with hypercapnic respiratory failure. She likely suffers from severe obstructive sleep apnea syndrome as well as obesity/hypoventilation syndrome (Pickwickian syndrome). Currently, the patient is on nasal O2, at 3 L. She is receiving IV heparin. He is getting saline at 10 cc an hour. She is in no distress. She does not have any shortness of breath, or cough, wheezing, chest pain, etc. Current laboratory data includes a white count 15.3, hemoglobin 7, hematocrit 22.4, and a platelet count of 101,000. PT 12.8, INR 1.2. Glucose is 107. Blood cultures are apparently positive for gram-positive cocci in chains, although nothing has been yet identified. Possibly Streptococcus species. The patient does continue on ceftriaxone for the time being. Objective - Vital Signs Vital signs: Vital Signs Temp 96.9 F L 02/20/24 04:00 Pulse 65 02/20/24 04:00 Resp 21 02/20/24 04:00 BP 104/56 02/20/24 04:00 Pulse Ox 95 02/20/24 04:00 FiO2 35 02/20/24 04:17 Intake & Output 02/19/24 02/19/24 02/20/24 06:59 18:59 06:59 Intake Total 530 72.167 352.528 Output Total 525 430 Balance 5 72.167 -77.472 Weight 90.5 kg 133.3 kg Intake: Intake, IV Titration 50 72.167 112.528 Amount Heparin Sod,Pork in 0.45% 72.167 112.528 NaCl 25,000 unit In 0.45 % NaCl 1 250ml.bag @ 11. 05 UNITS/KG/HR 10 mls/hr IV .Q24H LD Rx#: [id number] cefTRIAXone 2 gm In 50 Sodium Chloride 0.9% 50 ml @ 100 mls/hr IVPB Q24HR LD Rx#:[id number] Oral 480 240 Output: Urine 525 430 Other: Voiding Method Indwelling Catheter Indwelling Catheter Indwelling Catheter # Bowel Movements 1 1 0 - Exam No acute distress, oriented 3. No acute distress. No respiratory distress. Currently wearing nasal O2 at 3 L. HEENT examination is grossly unremarkable. Mucous membranes are moist. No oral lesions. Neck supple. Full range of motion. No adenopathy thyromegaly or neck vein distention. Cardiovascular examination reveals regular rhythm rate. S1-S2 normal. No S3 or S4. No discernible murmur noted. Heart sounds are very distant. Heart rate 65 bpm. Lungs reveal mostly clear breath sounds. Few scattered rhonchi. No wheezes or crackles. Breath sounds are equal bilaterally. Saturations are 95% on 3 L. BiPAP device is in the room, although it is not clear to me that the patient used it last night. Nurses were unaware. Abdomen soft bowel sounds are heard. No masses or tenderness. Extremities are intact. No cyanosis or clubbing. Mild edema present. Skin is without rash or lesion. Neurologic examination is brief but nonfocal. - Labs CBC & Chem 7: 02/20/24 01:11 02/19/24 06:48 Labs: Abnormal Lab Results - Last 24 Hours (Table) 02/19/24 02/19/24 02/19/24 Range/Units 06:48 06:48 10:01 WBC 15.9 H 16.2 H (3.8-10.6) k/uL RBC 2.74 L 2.60 L (3.80-5.40) m/uL Hgb 7.4 L 7.2 L (11.4-16.0) gm/dL Hct 24.8 L 23.3 L (34.0-46.0) % MCHC 30.1 L (31.0-37.0) g/dL RDW 17.3 H 17.3 H (11.5-15.5) % Plt Count 120 L 126 L (150-450) k/uL Neutrophils # 15.0 H 15.2 H (1.3-7.7) k/uL Lymphocytes # 0.3 L 0.4 L (1.0-4.8) k/uL PT (10.0-12.5) sec INR (<1.2) Carbon Dioxide 32 H (22-30) mmol/L BUN 70 H (7-17) mg/dL Creatinine 2.69 H (0.52-1.04) mg/dL Glucose 131 H (74-99) mg/dL POC Glucose (mg/dL) (70-110) mg/dL 02/19/24 02/19/24 02/19/24 Range/Units 10:01 11:32 20:08 WBC (3.8-10.6) k/uL RBC (3.80-5.40) m/uL Hgb (11.4-16.0) gm/dL Hct (34.0-46.0) % MCHC (31.0-37.0) g/dL RDW (11.5-15.5) % Plt Count (150-450) k/uL Neutrophils # (1.3-7.7) k/uL Lymphocytes # (1.0-4.8) k/uL PT 14.6 H (10.0-12.5) sec INR 1.4 H (<1.2) Carbon Dioxide (22-30) mmol/L BUN (7-17) mg/dL Creatinine (0.52-1.04) mg/dL Glucose (74-99) mg/dL POC Glucose (mg/dL) 144 H 137 H (70-110) mg/dL 02/20/24 02/20/24 Range/Units 01:11 01:11 WBC 15.3 H (3.8-10.6) k/uL RBC 2.42 L (3.80-5.40) m/uL Hgb 7.0 L (11.4-16.0) gm/dL Hct 22.4 L (34.0-46.0) % MCHC (31.0-37.0) g/dL RDW 17.6 H (11.5-15.5) % Plt Count 101 L (150-450) k/uL Neutrophils # 13.5 H (1.3-7.7) k/uL Lymphocytes # 0.5 L (1.0-4.8) k/uL PT 12.8 H (10.0-12.5) sec INR 1.2 H (<1.2) Carbon Dioxide (22-30) mmol/L BUN (7-17) mg/dL Creatinine (0.52-1.04) mg/dL Glucose (74-99) mg/dL POC Glucose (mg/dL) (70-110) mg/dL Assessment and Plan Assessment: Acute on chronic hypoxemic and hypercapnic respiratory failure, secondary to severe obstructive sleep apnea syndrome, and obesity/hypoventilation syndrome (Pickwickian syndrome). Probable CHF exacerbation. Non-ST segment elevation myocardial infarction. History of coronary artery disease with previous bypass grafting, 1996. Severe pulmonary hypertension and cor pulmonale. Moderate aortic stenosis. Chronic kidney disease. Insulin-dependent diabetes mellitus. History of hypothyroidism. Morbid obesity. Plan: Plan dated February 20, 2024. The patient appears relatively stable from the pulmonary standpoint. The patient continues on 3 L of oxygen, saline at 10 cc an hour, and IV heparin. She is believed to have had a non-ST segment elevation myocardial infarction. The patient has severe pulmonary hypertension, and cor pulmonale, secondary to sleep apnea syndrome, and obesity/hypoventilation syndrome. We will continue to follow make recommendations along the way. Prognosis is certainly guarded. Time with Patient: Less than 30
[2024-02-20 10:05] LABS: African American GFR (CKD) 14 (>60 ml/min/1.73 sqM); Anion Gap 8 mmol/L; Blood Urea Nitrogen 85 mg/dL (7-17); Calcium 8.5 mg/dL (8.4-10.2); Carbon Dioxide 30 mmol/L (22-30); Chloride 99 mmol/L (98-107); Glucose 144 mg/dL (74-99); Non-African American GFR(CKD) 12 (>60 ml/min/1.73 sqM); Sodium 137 mmol/L (137-145)
--- NOTE | 2024-02-20 10:32 | P.PN ---
Subjective HISTORY OF PRESENT ILLNESS: This is a 74-year-old female with a past medical history significant for coronary artery disease with previous two-vessel CABG in 1996, atrial fibrillation, hypertension, diabetes, severe pulmonary hypertension, chronic kidney disease, and history of GI bleeding. Patient follows in the office with Dr. Weller. We have been asked to see the patient in consultation for elevated troponins. Patient examined at the bedside. Patient presented to the hospital with a chief complaint of shortness of breath. Patient states that her oxygen saturations at home were very low and she thinks that she was not very responsive. The patient is currently on 4 L nasal cannula. She states her shortness of breath is improving. She denies having any chest pain or pressure prior to coming to the hospital or since being admitted. The patient was also found to be febrile with a temperature of 102. She has been started on IV a ntibiotics per primary medicine. Repeat EKG performed this morning reveals sinus mechanism with right bundle branch block with no signs of acute ischemia. DIAGNOSTICS: - EKG reveals sinus mechanism with right bundle branch block. Initial EKG reveals significant artifact. - Chest xray similar moderate cardiomegaly and diffuse interstitial infiltrate/edema - Laboratory data: WBC 12.2. Hemoglobin 7.2. Platelet count 126. Sodium 137. Potassium 4.8. BUN 70. Creatinine 2.69. Troponin 0.540. 5.420. 8.040 - Current home cardiac medications include carvedilol 6.25 mg twice a day, losartan 12.5 mg daily, Imdur 30 mg daily, Lasix 20 mg twice a day, Bumex 1 mg twice a day, Lipitor 40 mg at night - Most recent echocardiogram obtained on January 31, 2024 revealed ejection fraction 55 to 60%, severe pulmonary hypertension, severe tricuspid regurgitation, mild to moderate MR, moderate aortic stenosis with mild aortic regurgitation 02/20/2024 Patient examined this morning at the bedside. Patient currently denies chest pain or pressure. She denies shortness of breath. She remains on IV heparin. Echocardiogram is pending. Kidney function is worsened today at 3.50. Patient's blood cultures are positive for strep A. PHYSICAL EXAM: VITAL SIGNS: Reviewed. GENERAL: Well-developed in no acute distress. HEENT: Head is normocephalic. Pupils are equal, round. Sclerae anicteric. Mucous membranes of the mouth are moist. Neck supple. No JVD or thyromegaly LUNGS: Respirations even and unlabored. Lungs essentially clear to auscultation bilaterally. HEART: Regular rate and rhythm. S1 and S2 heard. Systolic murmur noted. ABDOMEN: Soft. Nondistended. Nontender. EXTREMITIES: Normal range of motion. No clubbing or cyanosis. Peripheral pulses intact. No lower extremity edema NEUROLOGIC: Awake and alert. Oriented x 3. ASSESSMENT: Shortness of breath Febrile illness Bacteremia, blood cultures preliminary positive for strep A Acute hypoxic respiratory failure requiring BiPAP support, currently on nasal cannula Non-STEMI Acute on chronic kidney disease Coronary artery disease with previous two-vessel CABG in 1996 Paroxysmal atrial fibrillation, not anticoagulated on an outpatient basis due to history of GI bleeding Severe pulmonary hypertension Valvular heart disease including moderate aortic stenosis History of GI bleeding PLAN: 2D echo has been ordered. Await results Continue IV heparin for an additional 24 hours. May be discontinued tomorrow. Continue to monitor kidney function. Per patient's home medication list she is taking Bumex and Lasix which may have contributed to AMINA Aspirin and Plavix added yesterday. Atorvastatin increased to 80 mg yesterday. Neurology consulted for AMINA on CKD as patient will require eventual cardiac catheterization Continue with medical management at this time Patient to undergo cardiac catheterization with Dr. Weller when she is medically stable and AMINA improves Further recommendations pending patient course Nurse practitioner note has been reviewed by physician. Signing provider agrees with the documented findings, assessment, and plan of care documented by JACQUARD LACE WEAVER as a scribe. Objective - Vital Signs Vital signs: Vital Signs Temp 98 F 02/20/24 08:55 Pulse 72 02/20/24 08:55 Resp 16 02/20/24 08:55 BP 120/55 02/20/24 08:55 Pulse Ox 97 02/20/24 08:55 FiO2 35 02/20/24 04:17 Intake & Output 02/19/24 02/20/24 02/20/24 18:59 06:59 18:59 Intake Total 72.167 417.833 118 Output Total 430 Balance 72.167 -12.167 118 Weight 133.3 kg Intake: Intake, IV Titration 72.167 177.833 Amount Heparin Sod,Pork in 0.45% 72.167 177.833 NaCl 25,000 unit In 0.45 % NaCl 1 250ml.bag @ 11. 05 UNITS/KG/HR 10 mls/hr IV .Q24H [facility] Rx#: [id number] Oral 240 118 Output: Urine 430 Other: Voiding Method Indwelling Catheter Indwelling Catheter # Bowel Movements 1 0 - Labs CBC & Chem 7: 02/20/24 01:11 02/20/24 08:30 Labs: Abnormal Lab Results - Last 24 Hours (Table) 02/19/24 02/19/24 02/19/24 Range/Units 10:01 11:32 20:08 WBC (3.8-10.6) k/uL RBC (3.80-5.40) m/uL Hgb (11.4-16.0) gm/dL Hct (34.0-46.0) % RDW (11.5-15.5) % Plt Count (150-450) k/uL Neutrophils # (1.3-7.7) k/uL Lymphocytes # (1.0-4.8) k/uL PT 14.6 H (10.0-12.5) sec INR 1.4 H (<1.2) APTT (22.0-30.0) sec BUN (7-17) mg/dL Creatinine (0.52-1.04) mg/dL Glucose (74-99) mg/dL POC Glucose (mg/dL) 144 H 137 H (70-110) mg/dL 02/20/24 02/20/24 02/20/24 Range/Units 01:11 01:11 08:30 WBC 15.3 H (3.8-10.6) k/uL RBC 2.42 L (3.80-5.40) m/uL Hgb 7.0 L (11.4-16.0) gm/dL Hct 22.4 L (34.0-46.0) % RDW 17.6 H (11.5-15.5) % Plt Count 101 L (150-450) k/uL Neutrophils # 13.5 H (1.3-7.7) k/uL Lymphocytes # 0.5 L (1.0-4.8) k/uL PT 12.8 H (10.0-12.5) sec INR 1.2 H (<1.2) APTT 52.4 H (22.0-30.0) sec BUN (7-17) mg/dL Creatinine (0.52-1.04) mg/dL Glucose (74-99) mg/dL POC Glucose (mg/dL) (70-110) mg/dL 02/20/24 Range/Units 08:30 WBC (3.8-10.6) k/uL RBC (3.80-5.40) m/uL Hgb (11.4-16.0) gm/dL Hct (34.0-46.0) % RDW (11.5-15.5) % Plt Count (150-450) k/uL Neutrophils # (1.3-7.7) k/uL Lymphocytes # (1.0-4.8) k/uL PT (10.0-12.5) sec INR (<1.2) APTT (22.0-30.0) sec BUN 85 H (7-17) mg/dL Creatinine 3.50 H (0.52-1.04) mg/dL Glucose 144 H (74-99) mg/dL POC Glucose (mg/dL) (70-110) mg/dL Microbiology - Last 24 Hours (Table) 02/18/24 07:35 Blood Culture Gram Stain - Preliminary Blood Blood Culture - Preliminary Strep A 02/18/24 07:40 Blood Culture Gram Stain - Preliminary Blood Blood Culture - Preliminary Strep A Molecular ID
--- NOTE | 2024-02-20 10:56 | CA ---
Transthoracic Echo Report Name: Faith Tapia Age: 74 Gender: F : 1950 Exam Date: 02/19/2024 12:42 Exam Location: [place] [facility] Ht (in): 67 Wt (lb): 292 Ordering Physician: Kathi Kumari Attending/Referring Phys: [id number], [employer] Manager Maria Guadalupe Zee RDCS Procedure CPT: Indications: LV function, NSTEMI Cardiac Hx: Technical Quality: Very technically difficult study Contrast 1: Definity Total Dose (mL): 2 Contrast 2: Total Dose (mL): MEASUREMENTS (Male / Female) Normal Values 2D ECHO LV Diastolic Diameter PLAX 5.3 cm 4.2 - 5.9 / 3.9 - 5.3 cm LV Systolic Diameter PLAX 3.3 cm IVS Diastolic Thickness 1.3 cm 0.6 - 1.0 / 0.6 - 0.9 cm LVPW Diastolic Thickness 1.3 cm 0.6 - 1.0 / 0.6 - 0.9 cm LV Relative Wall Thickness 0.5 LV Diastolic Volume MOD BP 123.7 cm??? 67 - 155 / 56 - 104 cm??? LV Systolic Volume MOD BP 52.2 cm??? 22 - 58 / 19 - 49 cm??? LV Ejection Fraction MOD BP 57.8 % >= 55 % LV Cardiac Index MOD BP 2418.8 cm???/min???m??? LV Diastolic Volume MOD 4C 170.2 cm??? LV Systolic Volume MOD 4C 61.3 cm??? LV Ejection Fraction MOD 4C 64.0 % LV Cardiac Index MOD 4C 3681.2 cm???/min???m??? LV Diastolic Length 4C 8.1 cm LV Systolic Length 4C 7.0 cm LV Diastolic Volume MOD 2C 89.4 cm??? LV Systolic Volume MOD 2C 42.2 cm??? LV Ejection Fraction MOD 2C 52.8 % LV Cardiac Index MOD 2C 1594.6 cm???/min???m??? LV Diastolic Length 2C 8.0 cm LV Systolic Length 2C 6.7 cm FINDINGS Left Ventricle Moderately increased septal wall thickness. Moderately increased posterior wall thickness. Moderately increased left ventricular diastolic volume. Mildly increased left ventricular systolic volume. Left ventricular ejection fraction is estimated at 50 %. Right Ventricle Right Atrium Left Atrium Mitral Valve Aortic Valve Tricuspid Valve Pulmonic Valve Pericardium No pericardial effusion. Aorta CONCLUSIONS Reasonably preserved LV systolic function Definity contrast used, limited views Previewed by: Dr. Gordon Lance MD (Electronically Signed) Final Date: 20 February 2024 10:55
[2024-02-20 11:26] LABS: Glucose,Whole Blood 107 mg/dL (70-110)
--- NOTE | 2024-02-20 11:29 | P.PN ---
Subjective Progress Note Date: 02/20/24 Principal diagnosis: dyspnea, coronary artery disease, chronic kidney disease patient is awake alert oriented 3 denies chest pain denies shortness of breath currently on IV heparin echo is pending kidney function is worsening today blood cultures are positive for strep a Objective - Vital Signs Vital signs: Vital Signs Temp 98 F 02/20/24 08:55 Pulse 72 02/20/24 08:55 Resp 16 02/20/24 08:55 BP 120/55 02/20/24 08:55 Pulse Ox 97 02/20/24 08:55 FiO2 35 02/20/24 04:17 Intake & Output 02/19/24 02/20/24 02/20/24 18:59 06:59 18:59 Intake Total 72.167 417.833 118 Output Total 430 Balance 72.167 -12.167 118 Weight 133.3 kg Intake: Intake, IV Titration 72.167 177.833 Amount Heparin Sod,Pork in 0.45% 72.167 177.833 NaCl 25,000 unit In 0.45 % NaCl 1 250ml.bag @ 11. 05 UNITS/KG/HR 10 mls/hr IV .Q24H [facility] Rx#: [id number] Oral 240 118 Output: Urine 430 Other: Voiding Method Indwelling Catheter Indwelling Catheter Indwelling Catheter # Bowel Movements 1 0 - Exam General: [Patient awake, alert and oriented times 3. Patient in no acute dis tress.] HEENT: [PERRL. EOMI. No pharyngeal erythema or exudate.] Neck: [No adenopathy.] Cardiac: [Heart: regularly irregular, grade 3 systolic murmur Lungs: diminished bibasilar crackles Abdomen: [No mass. No organomegaly. Bowel sounds presnt and normoactive in all 4 quadrants.] Extremes: [No edema no cyanosis no claudication normal pulses] : normal female genitalia Musculoskeletal: [No joint erythema, edema or tenderness.] Skin: [No rash.] Neurologic: [No lateralizing deficits. CN II - XII grossly intact.] Lymphatic: [No adenopathy.] - Labs CBC & Chem 7: 02/20/24 01:11 02/20/24 08:30 Labs: Abnormal Lab Results - Last 24 Hours (Table) 02/19/24 02/19/24 02/20/24 Range/Units 11:32 20:08 01:11 WBC (3.8-10.6) k/uL RBC (3.80-5.40) m/uL Hgb (11.4-16.0) gm/dL Hct (34.0-46.0) % RDW (11.5-15.5) % Plt Count (150-450) k/uL Neutrophils # (1.3-7.7) k/uL Lymphocytes # (1.0-4.8) k/uL PT 12.8 H (10.0-12.5) sec INR 1.2 H (<1.2) APTT (22.0-30.0) sec BUN (7-17) mg/dL Creatinine (0.52-1.04) mg/dL Glucose (74-99) mg/dL POC Glucose (mg/dL) 144 H 137 H (70-110) mg/dL 02/20/24 02/20/24 02/20/24 Range/Units 01:11 08:30 08:30 WBC 15.3 H (3.8-10.6) k/uL RBC 2.42 L (3.80-5.40) m/uL Hgb 7.0 L (11.4-16.0) gm/dL Hct 22.4 L (34.0-46.0) % RDW 17.6 H (11.5-15.5) % Plt Count 101 L (150-450) k/uL Neutrophils # 13.5 H (1.3-7.7) k/uL Lymphocytes # 0.5 L (1.0-4.8) k/uL PT (10.0-12.5) sec INR (<1.2) APTT 52.4 H (22.0-30.0) sec BUN 85 H (7-17) mg/dL Creatinine 3.50 H (0.52-1.04) mg/dL Glucose 144 H (74-99) mg/dL POC Glucose (mg/dL) (70-110) mg/dL Microbiology - Last 24 Hours (Table) 02/18/24 07:35 Blood Culture Gram Stain - Preliminary Blood Blood Culture - Preliminary Strep A 02/18/24 07:40 Blood Culture Gram Stain - Preliminary Blood Blood Culture - Preliminary Strep A Molecular ID Assessment and Plan (1) Acute encephalopathy Current Visit: Yes Status: Acute Code(s): G93.40 - ENCEPHALOPATHY, UNSPECIFIED SNOMED Code(s): 13466533 (2) Acute kidney injury Current Visit: Yes Status: Acute Code(s): N17.9 - ACUTE KIDNEY FAILURE, UNSPECIFIED SNOMED Code(s): 08460515 (3) BiPAP (biphasic positive airway pressure) dependence Current Visit: Yes Status: Acute Code(s): Z99.89 - DEPENDENCE ON OTHER ENABLING MACHINES AND DEVICES SNOMED Code(s): 194154693 (4) Hypoxia Current Visit: Yes Status: Acute Code(s): R09.02 - HYPOXEMIA SNOMED Code(s): 541599366 (5) NSTEMI (non-ST elevated myocardial infarction) Current Visit: Yes Status: Acute Code(s): I21.4 - NON-ST ELEVATION (NSTEMI) MYOCARDIAL INFARCTION SNOMED Code(s): 00335069 (6) Pulmonary edema Current Visit: Yes Status: Acute Code(s): J81.1 - CHRONIC PULMONARY EDEMA SNOMED Code(s): 41519714 (7) Urinary tract infection Current Visit: Yes Status: Acute Code(s): N39.0 - URINARY TRACT INFECTION, SITE NOT SPECIFIED SNOMED Code(s): 49916652 (8) Acquired hypothyroidism Current Visit: No Status: Acute Code(s): E03.9 - HYPOTHYROIDISM, UNSPECIFIED SNOMED Code(s): 084862698 (9) Acute on chronic diastolic (congestive) heart failure Current Visit: No Status: Acute Code(s): I50.33 - ACUTE ON CHRONIC DIASTOLIC (CONGESTIVE) HEART FAILURE SNOMED Code(s): 307842950 (10) CKD (chronic kidney disease) Current Visit: No Status: Acute Code(s): N18.9 - CHRONIC KIDNEY DISEASE, UNSPECIFIED SNOMED Code(s): 247612503 (11) Coronary artery disease with history of coronary revascularization Current Visit: No Status: Acute Code(s): I25.10 - ATHSCL HEART DISEASE OF [place] CORONARY ARTERY W/O ANG PCTRS; Z98.61 - CORONARY ANGIOPLASTY STATUS SNOMED Code(s): 26684820 Plan: patient admitted to the hospital ID consultation for group A strep Cardiology consult 2-D echo Increase atorvastatin 80 mg' Anticipate cardiac catheterization Further orders pending Time with Patient: Greater than 30
--- NOTE | 2024-02-20 11:50 | P.PN ---
Subjective Progress Note Date: 02/20/24 Patient seen in follow-up for AMINA. Breathing is better and stable. No new complaints. VITAL SIGNS: Reviewed. GENERAL: Well-developed in no acute distress. HEENT: Head is normocephalic LUNGS: Bilateral crackles, diminished breath sounds HEART: Regular rate and rhythm. S1 and S2 heard. Systolic murmur noted. ABDOMEN: Soft. Obese, Nondistended. Nontender. EXTREMITIES: Normal range of motion. No clubbing or cyanosis. Peripheral pulses intact. trace lower extremity edema NEUROLOGIC: Awake and alert. Oriented x 3. Objective - Vital Signs Vital signs: Vital Signs Temp 98.3 F 02/20/24 11:41 Pulse 64 02/20/24 11:41 Resp 16 02/20/24 11:41 BP 106/56 02/20/24 11:41 Pulse Ox 98 02/20/24 11:41 FiO2 35 02/20/24 04:17 Intake & Output 02/19/24 02/20/24 02/20/24 18:59 06:59 18:59 Intake Total 72.167 417.833 118 Output Total 430 Balance 72.167 -12.167 118 Weight 133.3 kg Intake: Intake, IV Titration 72.167 177.833 Amount Heparin Sod,Pork in 0.45% 72.167 177.833 NaCl 25,000 unit In 0.45 % NaCl 1 250ml.bag @ 11. 05 UNITS/KG/HR 10 mls/hr IV .Q24H [facility] Rx#: [id number] Oral 240 118 Output: Urine 430 Other: Voiding Method Indwelling Catheter Indwelling Catheter Indwelling Catheter # Bowel Movements 1 0 - Labs CBC & Chem 7: 02/20/24 01:11 02/20/24 08:30 Labs: Abnormal Lab Results - Last 24 Hours (Table) 02/19/24 02/20/24 02/20/24 Range/Units 20:08 01:11 01:11 WBC 15.3 H (3.8-10.6) k/uL RBC 2.42 L (3.80-5.40) m/uL Hgb 7.0 L (11.4-16.0) gm/dL Hct 22.4 L (34.0-46.0) % RDW 17.6 H (11.5-15.5) % Plt Count 101 L (150-450) k/uL Neutrophils # 13.5 H (1.3-7.7) k/uL Lymphocytes # 0.5 L (1.0-4.8) k/uL PT 12.8 H (10.0-12.5) sec INR 1.2 H (<1.2) APTT (22.0-30.0) sec BUN (7-17) mg/dL Creatinine (0.52-1.04) mg/dL Glucose (74-99) mg/dL POC Glucose (mg/dL) 137 H (70-110) mg/dL 02/20/24 02/20/24 Range/Units 08:30 08:30 WBC (3.8-10.6) k/uL RBC (3.80-5.40) m/uL Hgb (11.4-16.0) gm/dL Hct (34.0-46.0) % RDW (11.5-15.5) % Plt Count (150-450) k/uL Neutrophils # (1.3-7.7) k/uL Lymphocytes # (1.0-4.8) k/uL PT (10.0-12.5) sec INR (<1.2) APTT 52.4 H (22.0-30.0) sec BUN 85 H (7-17) mg/dL Creatinine 3.50 H (0.52-1.04) mg/dL Glucose 144 H (74-99) mg/dL POC Glucose (mg/dL) (70-110) mg/dL Microbiology - Last 24 Hours (Table) 02/18/24 07:35 Blood Culture Gram Stain - Preliminary Blood Blood Culture - Preliminary Strep A 02/18/24 07:40 Blood Culture Gram Stain - Preliminary Blood Blood Culture - Preliminary Strep A Molecular ID Assessment and Plan Assessment: 1. Acute kidney injury secondary to ATN likely secondary to sepsis. Creatinine 2.7, worsening to 3.5 today. No hydronephrosis noted on recent kidney ultraso und. UA consistent with UTI. 2. Chronic kidney disease stage IIIb with baseline creatinine 1.5-1.6 secondary to nephrosclerosis and cardiorenal syndrome. 3. Acute on chronic diastolic CHF with moderate aortic stenosis, moderate mitral regurgitation, severe tricuspid regurgitation and pulmonary hypertension. 4. Volume overload with hypoxia. 5. Diabetes mellitus. 6. Coronary artery disease status post CABG with elevated troponin 7. Anemia. Iron deficiency noted. status post IV iron 8. Metabolic alkalosis from diuresis and FLORES 9. Sepsis with strep A bacteremia and UTI. Plan: Stop Bumex, start IVF 75cc/he given sepsis. Continue to hold Losartan Antibiotics per ID Daily BMP and strict I/O's LHC when stable renal function
[2024-02-20 16:47] LABS: Glucose,Whole Blood 53 mg/dL (70-110)
[2024-02-20] MEDS: SODIUM CHLORIDE 0.9% 1,000 ML IV SCH (16:52)
[2024-02-20 17:02] LABS: Glucose,Whole Blood 74 mg/dL (70-110)
[2024-02-20 20:10] LABS: Glucose,Whole Blood 110 mg/dL (70-110)
[2024-02-21 02:12] LABS: Glucose,Whole Blood 104 mg/dL (70-110)
[2024-02-21 06:04] LABS: Glucose,Whole Blood 100 mg/dL (70-110)
[2024-02-21 07:44] LABS: African American GFR (CKD) 15 (>60 ml/min/1.73 sqM); Anion Gap 6 mmol/L; Blood Urea Nitrogen 90 mg/dL (7-17); Calcium 8.3 mg/dL (8.4-10.2); Carbon Dioxide 30 mmol/L (22-30); Chloride 101 mmol/L (98-107); Glucose 84 mg/dL (74-99); Non-African American GFR(CKD) 13 (>60 ml/min/1.73 sqM); Potassium 4.8 mmol/L (3.5-5.1); Sodium 137 mmol/L (137-145)
--- NOTE | 2024-02-21 07:54 | P.PN ---
Subjective Progress Note Date: 02/21/24 The patient is a 74-year-old female patient was admitted to the hospital because of sepsis and positive urine and blood culture and abnormal troponin. Also she was found to be anemic and also she is in renal failure February 21, 2024 The patient was seen and evaluated this morning which she is asymptomatic at this point. She is hemodynamically stable. She continues to have positive urine and blood culture and currently she is on antibiotic. She is also on dual antiplatelet therapy along with beta-josh and statin but the echo showed presumably normal LV systolic function but on examination she has significant systolic murmur at the right upper sternal border. Otherwise her vitals are stable. Assessment Sepsis of unknown origin at this point Positive urine and blood culture Evidence of myocardial injury with abnormal troponin Systolic murmur on examination Known CAD Paroxysmal atrial fibrillation not on anticoagulation because of history of bleeding Multiple comorbid conditions Renal failure Anemia Plan Continue the current medical regimen including dual antiplatelet therapy along with statin and beta-josh DC heparin since it has been more than 48 hours Follow-up with the patient Objective - Vital Signs Vital signs: Vital Signs Temp 97.9 F 02/20/24 19:45 Pulse 61 02/21/24 04:00 Resp 16 02/21/24 04:00 BP 110/53 02/21/24 04:00 Pulse Ox 98 02/21/24 04:00 FiO2 35 02/21/24 03:23 Intake & Output 02/20/24 02/21/24 02/21/24 18:59 06:59 18:59 Intake Total 1434 153.014 Output Total 100 1050 Balance 1334 -896.986 Weight 92.5 kg Intake: Intake, IV Titration 153.014 Amount Heparin Sod,Pork in 0.45% 153.014 NaCl 25,000 unit In 0.45 % NaCl 1 250ml.bag @ 11. 05 UNITS/KG/HR 10 mls/hr IV .Q24H [facility] Rx#: [id number] Oral 1434 Output: Urine 100 1050 Other: Voiding Method Indwelling Catheter Indwelling Catheter - Labs CBC & Chem 7: 02/20/24 01:11 02/20/24 08:30 Labs: Abnormal Lab Results - Last 24 Hours (Table) 02/20/24 02/20/24 02/20/24 Range/Units 08:30 08:30 16:45 APTT 52.4 H (22.0-30.0) sec BUN 85 H (7-17) mg/dL Creatinine 3.50 H (0.52-1.04) mg/dL Glucose 144 H (74-99) mg/dL POC Glucose (mg/dL) 53 L (70-110) mg/dL Microbiology - Last 24 Hours (Table) 02/18/24 07:35 Blood Culture Gram Stain - Preliminary Blood Blood Culture - Preliminary Strep A Coagulase Negative Staph 02/18/24 07:40 Blood Culture Gram Stain - Preliminary Blood Blood Culture - Preliminary Strep A Molecular ID
[2024-02-21 07:56] LABS: C Reactive Protein 19.1 mg/dL (<1.0)
--- NOTE | 2024-02-21 11:01 | P.PN ---
Subjective Progress Note Date: 02/21/24 Principal diagnosis: Lethargy, somnolence. Patient is a 74-year-old female with past medical history significant for coronary artery disease with previous CABG, atrial fibrillation, hyperlipidemia, hypertension, hypothyroidism, diabetes mellitus, CKD stage III, obstructive sleep apnea with home CPAP, chronic hypoxemic respiratory failure. Also follows in the pulmonary office with Dr. Asif aguayo, maintained on an APAP machine pressures of 5 to 20 cm of water. She was recently in the hospital for suspected CHF exacerbation fluid overload. At that time NT proBNP was 9500 and she was bradycardic. She presented to the ED again on 02/18/24 with shortness of breath. She was found unresponsive by her son. She is supposed to wear a CPAP at night. She was found to be hypoxic with O2 sat was 76% on nonrebreather. Today the patient was seen on the general medical floor and seemed to be doing well on 4 L of oxygen via nasal cannula other than a little cough along with aman ar phlegm. WBC 16.0, hemoglobin 7.2, platelets 126, sodium 137, potassium 4.8, BUN 70 and creatinine 2.69. Chest x-ray shows moderate cardiomegaly and diffuse interstitial edema or infiltrates. Troponin 1 is 8.040 ng per ml, with high NT proBNP 6970, cardio has been consulted. Denies any shortness of breath, fever, chills chest pain. She is on 2.9% normal saline at 10 m L/HR, mirtazapine 15 m g, sertraline 100 mg, carvedilol 6.25 mg twice a day, bumetanide 1 mg twice a day, clopidogrel 75 mg, furosemide 20 mg, [id number] mL/h and Rocephin 100 mm/h. Will continue to monitor. Progress note dated February 20, 2024. 74-year-old female seen yesterday in consultation. The patient was admitted w ith a diagnosis of somnolence and lethargy, with hypercapnic respiratory failure. She likely suffers from severe obstructive sleep apnea syndrome as well as obesity/hypoventilation syndrome (Pickwickian syndrome). Currently, the patient is on nasal O2, at 3 L. She is receiving IV heparin. He is getting saline at 10 cc an hour. She is in no distress. She does not have any shortness of breath, or cough, wheezing, chest pain, etc. Current laboratory data includes a white count 15.3, hemoglobin 7, hematocrit 22.4, and a platelet count of 101,000. PT 12.8, INR 1.2. Glucose is 107. Blood cultures are apparently positive for gram-positive cocci in chains, although nothing has been yet identified. Possibly Streptococcus species. The patient does continue on ceftriaxone for the time being. Progress note dated February 21, 2024. Patient is a 74-year-old female seen in room 354. She was admitted for somnolence and lethargy, with hypercapnic respiratory failure. She has severe obstructive sleep apnea syndrome and obesity hypoventilation syndrome. Currently the patient is on nasal O2 at 3 L today. She used her BiPAP machine last night. She is currently on IV heparin, oxybutynin 5 mg, and Normal Saline at 75 ml/hr. today she is in no distress. Denies any shortness of breath, co ugh, wheezing, or chest pain. Her labs show ESR 46, C-reactive protein 19.1,, sodium 137, potassium 4.8, chloride 101, BUN 90 and creatinine 3.8. Blood culture showed positive for gram-positive cocci in chains, possibly strep A and the patient is already on ceftriaxone. Will continue to monitor. Objective - Vital Signs Vital signs: Vital Signs Temp 96.3 F L 02/21/24 08:00 Pulse 63 02/21/24 08:00 Resp 16 02/21/24 08:00 BP 101/46 02/21/24 08:00 Pulse Ox 98 02/21/24 08:43 FiO2 35 02/21/24 03:23 Intake & Output 02/20/24 02/21/24 02/21/24 18:59 06:59 18:59 Intake Total 1434 153.014 Output Total 100 1050 Balance 1334 -896.986 Weight 92.5 kg Intake: Intake, IV Titration 153.014 Amount Heparin Sod,Pork in 0.45% 153.014 NaCl 25,000 unit In 0.45 % NaCl 1 250ml.bag @ 11. 05 UNITS/KG/HR 10 mls/hr IV .Q24H [facility] Rx#: [id number] Oral 1434 Output: Urine 100 1050 Other: Voiding Method Indwelling Catheter Indwelling Catheter Indwelling Catheter - Exam No acute distress, oriented 3. No acute distress. No respiratory distress. Currently wearing nasal O2 at 3 L. HEENT examination is grossly unremarkable. Mucous membranes are moist. No oral lesions. Neck supple. Full range of motion. No adenopathy thyromegaly or neck vein distention. Cardiovascular examination reveals regular rhythm rate. S1-S2 normal. No S3 or S4. No discernible murmur noted. Lungs reveal mostly clear breath sounds. Few scattered rhonchi. No wheezes or crackles. Breath sounds are equal bilaterally. Abdomen soft bowel sounds are heard. No masses or tenderness. Extremities are intact. No cyanosis or clubbing. Mild edema present. Skin is without rash or lesion. Neurologic examination is brief but nonfocal. - Labs CBC & Chem 7: 02/20/24 01:11 02/21/24 06:28 Labs: Abnormal Lab Results - Last 24 Hours (Table) 02/20/24 02/21/24 02/21/24 Range/Units 16:45 06:28 06:28 ESR 46 H (0-30) mm/Hr APTT 66.5 H (22.0-30.0) sec BUN (7-17) mg/dL Creatinine (0.52-1.04) mg/dL POC Glucose (mg/dL) 53 L (70-110) mg/dL Calcium (8.4-10.2) mg/dL C-Reactive Protein (<1.0) mg/dL 02/21/24 Range/Units 06:28 ESR (0-30) mm/Hr APTT (22.0-30.0) sec BUN 90 H (7-17) mg/dL Creatinine 3.29 H (0.52-1.04) mg/dL POC Glucose (mg/dL) (70-110) mg/dL Calcium 8.3 L (8.4-10.2) mg/dL C-Reactive Protein 19.1 H (<1.0) mg/dL Microbiology - Last 24 Hours (Table) 02/18/24 07:35 Blood Culture Gram Stain - Preliminary Blood Blood Culture - Preliminary Strep A Coagulase Negative Staph 02/18/24 07:40 Blood Culture Gram Stain - Preliminary Blood Blood Culture - Preliminary Strep A Molecular ID Assessment and Plan Assessment: Acute on chronic hypoxemic and hypercapnic respiratory failure, secondary to severe obstructive sleep apnea syndrome, and obesity/hypoventilation syndrome (Pickwickian syndrome). Probable CHF exacerbation. Non-ST segment elevation myocardial infarction. History of coronary artery disease with previous bypass grafting, 1996. Severe pulmonary hypertension and cor pulmonale. Moderate aortic stenosis. Chronic kidney disease. Insulin-dependent diabetes mellitus. History of hypothyroidism. Morbid obesity. Plan: Patient continues on 3 L of oxygen and appears stable from pulmonary standpoint Normal saline at 75 cc an hour IV heparin Oxybutynin 5 mg daily Obstructive sleep apnea Obesity hypoventilation syndrome Non-ST segment elevation myocardial infarction Will continue to follow Prognosis is guarded Time spent with the patient: 20 minutes Time with Patient: Less than 30
[2024-02-21 11:54] LABS: Glucose,Whole Blood 133 mg/dL (70-110)
--- NOTE | 2024-02-21 12:54 | P.PN ---
Subjective patient is seen for follow-up for acute kidney injury. No significant complaints today. She has had good urine output. Serum creatinine decreased to 3.2 mg/dL. Patient is status post IV fluids Objective - Vital Signs Vital signs: Vital Signs Temp 96.3 F L 02/21/24 08:00 Pulse 61 02/21/24 12:00 Resp 16 02/21/24 12:00 BP 97/44 02/21/24 12:00 Pulse Ox 98 02/21/24 12:00 FiO2 35 02/21/24 03:23 Intake & Output 02/20/24 02/21/24 02/21/24 18:59 06:59 18:59 Intake Total 1434 153.014 240 Output Total 100 1050 Balance 1334 -896.986 240 Weight 92.5 kg Intake: Intake, IV Titration 153.014 Amount Heparin Sod,Pork in 0.45% 153.014 NaCl 25,000 unit In 0.45 % NaCl 1 250ml.bag @ 11. 05 UNITS/KG/HR 10 mls/hr IV .Q24H [facility] Rx#: [id number] Oral 1434 240 Output: Urine 100 1050 Other: Voiding Method Indwelling Catheter Indwelling Catheter Indwelling Catheter - Exam patient is awake, comfortable, no acute distress. Examination of the heart S1 and S2 Examination the lungs bilateral breath sounds are heard Abdomen is soft obese nontender Examination of lower extremities shows trace edema bilaterally with chronic skin changes [employer] exam grossly intact - Labs CBC & Chem 7: 02/20/24 01:11 02/21/24 06:28 Labs: Abnormal Lab Results - Last 24 Hours (Table) 02/20/24 02/21/24 02/21/24 Range/Units 16:45 06:28 06:28 ESR 46 H (0-30) mm/Hr APTT 66.5 H (22.0-30.0) sec BUN (7-17) mg/dL Creatinine (0.52-1.04) mg/dL POC Glucose (mg/dL) 53 L (70-110) mg/dL Calcium (8.4-10.2) mg/dL C-Reactive Protein (<1.0) mg/dL 02/21/24 02/21/24 Range/Units 06:28 11:52 ESR (0-30) mm/Hr APTT (22.0-30.0) sec BUN 90 H (7-17) mg/dL Creatinine 3.29 H (0.52-1.04) mg/dL POC Glucose (mg/dL) 133 H (70-110) mg/dL Calcium 8.3 L (8.4-10.2) mg/dL C-Reactive Protein 19.1 H (<1.0) mg/dL Microbiology - Last 24 Hours (Table) 02/18/24 07:35 Blood Culture Gram Stain - Final Blood Blood Culture - Final Strep A Coagulase Negative Staph 02/18/24 07:40 Blood Culture Gram Stain - Final Blood Blood Culture - Final Strep A Molecular ID Assessment and Plan Assessment: 1. Acute kidney injury secondary to ATN likely secondary to sepsis. Creatinine improved to 3.29 today. No hydronephrosis noted on recent kidney ultrasound. UA consistent with UTI. status post IV fluids. 2. Chronic kidney disease stage IIIb with baseline creatinine 1.5-1.6 secondary to nephrosclerosis and cardiorenal syndrome. 3. Acute on chronic diastolic CHF with moderate aortic stenosis, moderate mitral regurgitation, severe tricuspid regurgitation and pulmonary hypertension. 4. Volume overload with hypoxia. 5. Diabetes mellitus. 6. Coronary artery disease status post CABG with elevated troponin 7. Anemia. Iron deficiency noted. status post IV iron 8. Metabolic alkalosis from diuresis and FLORES 9. Sepsis with strep A bacteremia and UTI. Plan: encourage increased oral intake. Continue with antibiotics Repeat labs in a.m. decrease Coreg further as blood pressure remains low.
[2024-02-21 16:34] LABS: Glucose,Whole Blood 125 mg/dL (70-110)
[2024-02-21] MEDS: carvediloL 3.125 MG TAB PO SCH (16:36)
[2024-02-21 19:59] LABS: Glucose,Whole Blood 161 mg/dL (70-110)
--- NOTE | 2024-02-21 21:52 | P.CONS ---
History of Present Illness - Reason for Consult Consult date: 02/21/24 Group A strep bacteremia Requesting physician: Marcelino Cruz Jr - Chief Complaint Unresponsive and hypoxic x 1 day on admission - History of Present Illness Patient is a 74-year-old female with a past medical history significant for atrial fibrillation coronary artery disease diabetes mellitus hypertension hyperlipidemia pneumonia sleep apnea patient has been brought into the hospital 3 days ago for evaluation of increasing shortness of breath apparently the patient was found to be unresponsive by son, patient supposed to have a CPAP at night and apparently the patient was not wearing it when she was found to be unresponsive patient was noted to be hypoxic 76% on nonrebreather by EMS and the patient was noted to have a high fever and apparently patient was having some cough with the symptoms the patient has been brought to the hospital on arrival to the ER the patient did have a fever of 103.9 F patient was nontachycardic mildly hypertensive hypoxic requiring supplemental oxygen currently on 3 L nasal cannula patient did have a white count of 16.3 with a left shift BUN/creatinine has been mildly elevated liver isms are normal CRP is 19.1 urine has been positive with large leukocyte Estrace more than 160 WBC influenza RSV COVID testing was negative blood cultures currently positive with group A strep prompting this consultation patient did have a chest x-ray moderate cardiomegaly with diffuse interstitial infiltrate/edema patient did have an echocardiogram preserved LV systolic function did not mention any vegetation patient is currently on ceftriaxone most information has been performed to the chart as patient was not a very good historian patient do not have any pressure ulcer or any open wound as per discussion with the nursing s taff Review of Systems Positive points has been mentioned in HPI complete review could not be obtained because of his underlying mental status Past Medical History Past Medical History: Atrial Fibrillation, Coronary Artery Disease (CAD), COPD, Diabetes Mellitus, Eye Disorder, Hyperlipidemia, Hypertension, Osteoarthritis (OA), Pneumonia, Renal Disease, Sleep Apnea/CPAP/BIPAP, Thyroid Disorder Additional Past Medical History / Comment(s): Pt recently admitted to [facility] on 05/08/22 with anemia/had EGD and colonoscopy which showed nonbleeding stomach ulcer/diverticular disease and colon polyp, pt received blood transfusions. Other hx: 02/12/22 covid/pneumonia/sepsis, other past pneumonias, acute hypoxic respiratory failure/now on home oxygen ATC, new A fib with RVR, IDDM type II, neuropathy bilateral feet, L eye retinal bleed/lasik eye surgery, R eye cataract, bilateral eye macular degeneration/gets injections/poor vision, CKD stage III, anemia, UTI/sepsis, bilateral leg lymphedema, FLORES/does not have cpap machine at this time, diverticulitis, gout, chronic back pain, rheumatic fever, hypothyroid. History of Any Multi-Drug Resistant Organisms: ESBL Year Discovered:: 05/22/22 ESBL Klebsiella MDRO Source:: Urine Past Surgical History: Bariatric Surgery, Section, Cholecystectomy, Coronary Bypass/CABG, Heart Catheterization, Hysterectomy, Orthopedic Surgery, Tonsillectomy Additional Past Surgical History / Comment(s): EGD, colonoscopy, 2 vessel CABG in 1996, bilateral carpal tunnel release, lap band, L eye laser surgery, Past Anesthesia/Blood Transfusion Reactions: No Reported Reaction Past Psychological History: Depression Additional Psychological History / Comment(s): . Smoking Status: Never smoker Past Alcohol Use History: None Reported Additional Past Alcohol Use History / Comment(s): Patient is a lifelong nonsmoker. Past Drug Use History: None Reported - Past Family History Father History Unknown: Yes Family Medical History: Cancer, Coronary Artery Disease (CAD), Diabetes Mellitus Additional Family Medical History / Comment(s): Prostate cancer Mother History Unknown: Yes Family Medical History: Cancer Additional Family Medical History / Comment(s): Bone cancer. Medications and Allergies Home Medications Medication Instructions Recorded Confirmed Type Atorvastatin [Lipitor] 40 mg PO HS 08/10/16 02/18/24 History Isosorbide Mononitrate [Isosorbide 30 mg PO DAILY 08/10/16 02/18/24 History Mononitrate ER] Oxybutynin Chloride 5 mg PO DAILY 08/10/16 02/18/24 History Mirtazapine [Remeron] 15 mg PO HS 04/12/22 02/18/24 History Acetaminophen Tab [Tylenol] 650 mg PO Q6H PRN 05/08/22 02/18/24 History Levothyroxine Sodium [Synthroid] 50 mcg PO DAILY 12/17/22 02/18/24 History Sertraline [Zoloft] 100 mg PO BID 12/17/22 02/18/24 History HYDROcodone/APAP 10-325MG [[place] 1 tab PO Q8H PRN #9 tab 09/24/23 02/18/24 Rx 10-325] INSULIN ASPART (NovoLOG) [NovoLOG 20 unit SQ BID 01/30/24 02/18/24 History (formulary)] Insulin Glargine,Hum.rec.anlog 14 units SQ BID 01/30/24 02/18/24 History [Touceci Solostar] Pantoprazole [Protonix] 40 mg PO DAILY 01/30/24 02/18/24 History Bumetanide [BUMEX] 1 mg PO BID@0900,1600 30 Days #60 02/04/24 02/18/24 Rx tab Losartan [Cozaar] 12.5 mg PO DAILY 30 Days #15 tab 02/04/24 02/18/24 Rx amLODIPine [Norvasc] 5 mg PO BID 30 Days #60 tab 02/04/24 02/18/24 Rx carvediloL [Coreg] 6.25 mg PO BID-W/MEALS 30 Days #60 02/04/24 02/18/24 Rx tab Furosemide [Lasix] 20 mg PO BID 02/18/24 02/18/24 History Gabapentin [Neurontin] 200 mg PO BID 02/18/24 02/18/24 History Potassium Chloride ER [K-Dur 10] 10 meq PO DAILY 02/18/24 02/18/24 History Allergies Allergy/AdvReac Type Severity Reaction Status Date / Time ibuprofen [From Motrin] Allergy Rash/Hives Verified 02/18/24 10:35 Penicillins Allergy Anaphylaxis Verified 02/18/24 10:35 Physical Exam Vitals: Vital Signs Temp Pulse Resp BP Pulse Ox FiO2 02/21/24 08:43 98 02/21/24 08:00 96.3 F L 63 16 101/46 96 02/21/24 04:00 61 16 110/53 98 02/21/24 03:23 35 02/20/24 23:43 35 02/20/24 23:42 66 16 126/72 95 02/20/24 19:45 97.9 F 65 16 102/53 99 02/20/24 16:49 98.1 F 68 16 102/55 98 02/20/24 11:41 98.3 F 64 16 106/56 98 Intake and Output 02/20/24 02/21/24 02/21/24 22:59 06:59 14:59 Intake Total 811.014 240 Output Total 700 350 Balance 111.014 -350 240 Intake: Intake, IV Titration 153.014 Amount Heparin Sod,Pork in 0.45% 153.014 NaCl 25,000 unit In 0.45 % NaCl 1 250ml.bag @ 11. 05 UNITS/KG/HR 10 mls/hr IV .Q24H [facility] Rx#: [id number] Oral 658 240 Output: Urine 700 350 Other: Voiding Method Indwelling Catheter Indwelling Catheter Indwelling Catheter Weight 92.5 kg GENERAL DESCRIPTION: Elderly female lying in bed, no distress. No tachypnea or accessory muscle of respiration use. HEENT: Shows Pallor , no scleral icterus. Oral mucous membrane is dry. No pharyngeal erythema or thrush NECK: Trachea central, no thyromegaly. LUNGS: Unlabored breathing. Decreased breath sound the base HEART: S1, S2, regular rate and rhythm. No loud murmur ABDOMEN: Soft, no tenderness , EXTREMITIES: Diffuse swelling to the leg with no redness SKIN: No rash, no masses palpable. NEUROLOGICAL: The patient is lethargic orientation could not be determined Results CBC & Chem 7: 02/20/24 01:11 02/21/24 06:28 Labs: Abnormal Lab Results - Last 24 Hours (Table) 02/20/24 02/21/24 02/21/24 Range/Units 16:45 06:28 06:28 ESR 46 H (0-30) mm/Hr APTT 66.5 H (22.0-30.0) sec BUN (7-17) mg/dL Creatinine (0.52-1.04) mg/dL POC Glucose (mg/dL) 53 L (70-110) mg/dL Calcium (8.4-10.2) mg/dL C-Reactive Protein (<1.0) mg/dL 02/21/24 Range/Units 06:28 ESR (0-30) mm/Hr APTT (22.0-30.0) sec BUN 90 H (7-17) mg/dL Creatinine 3.29 H (0.52-1.04) mg/dL POC Glucose (mg/dL) (70-110) mg/dL Calcium 8.3 L (8.4-10.2) mg/dL C-Reactive Protein 19.1 H (<1.0) mg/dL Microbiology - Last 24 Hours (Table) 02/18/24 07:35 Blood Culture Gram Stain - Final Blood Blood Culture - Final Strep A Coagulase Negative Staph 02/18/24 07:40 Blood Culture Gram Stain - Final Blood Blood Culture - Final Strep A Molecular ID Assessment and Plan (1) Sepsis Current Visit: Yes Status: Acute Code(s): A41.9 - SEPSIS, UNSPECIFIED ORGANISM SNOMED Code(s): 02730584 (2) Bacteremia Current Visit: Yes Status: Acute Code(s): R78.81 - BACTEREMIA SNOMED Code(s): 0102557 (3) Urinary tract infection Current Visit: Yes Status: Acute Code(s): N39.0 - URINARY TRACT INFECTION, SITE NOT SPECIFIED SNOMED Code(s): 49059835 Plan: 1patient presented to hospital with sepsis in this patient who did have a fever hypotension source could be likely UTI and did have significantly positive UA patient also have a cough underlying pneumonia not entirely excluded 2patient with group A strep bacteremia which is usually of skin and soft tissue source currently do not have any open wound or cellulitis has been associated with UTI as well as pneumonia blood cultures will be document clearance and admission evidence of any persistent bacteremia 3penicillin allergy did have limited number of antibiotics safe to use 4 renal insufficiency and high risk of nephrotoxicity. 5Rocephin 2 g daily to continue while waiting for the workup to be completed We will follow on clinical condition and cultures to further adjust medication if needed Thank you for this consultation we will follow the patient along with you Dictation was produced using [employer] dictation software. please excuse any grammatical, word or spelling errors. Time with Patient: Greater than 30
[2024-02-21 23:47] LABS: Appearance,Urine Clear (Clear); Bilirubin,Urine Negative (Negative); Blood,Urine Negative (Negative); Color,Urine Colorless; Glucose,Urine (UA) Negative (Negative); Ketones,Urine Negative (Negative); Leukocyte Esterase,Urine Negative (Negative); Nitrite,Urine Negative (Negative); Protein,Urine Negative (Negative); Specific Gravity,Urine 1.011 (1.001-1.035); Urobilinogen,Urine <2.0 mg/dL (<2.0)
[2024-02-22 02:12] LABS: Glucose,Whole Blood 96 mg/dL (70-110)
[2024-02-22 05:56] LABS: Glucose,Whole Blood 81 mg/dL (70-110)
[2024-02-22 07:54] LABS: Anisocytosis Slight; Basophils % (A) 0 %; Eosinophils # (A) 0.2 k/uL (0-0.7); Eosinophils % (A) 3 %; HCT 23.3 % (34.0-46.0); Hypochromasia Marked; Lymphocytes # (A) 0.5 k/uL (1.0-4.8); Lymphocytes % (A) 10 %; MCH 27.2 pg (25.0-35.0); MCHC 29.9 g/dL (31.0-37.0); MCV 90.9 fL (80.0-100.0); Mean Platelet Volume 9.5; Monocytes # (A) 0.3 k/uL (0-1.0); Monocytes % (A) 6 %; Neutrophils # (A) 3.7 k/uL (1.3-7.7); Neutrophils % (A) 78 %; Platelet Count 117 k/uL (150-450); RBC 2.57 m/uL (3.80-5.40); RDW 17.1 % (11.5-15.5); WBC 4.8 k/uL (3.8-10.6)
[2024-02-22 08:14] LABS: African American GFR (CKD) 17 (>60 ml/min/1.73 sqM); Anion Gap 6 mmol/L; Blood Urea Nitrogen 81 mg/dL (7-17); Calcium 8.6 mg/dL (8.4-10.2); Carbon Dioxide 31 mmol/L (22-30); Chloride 103 mmol/L (98-107); Glucose 75 mg/dL (74-99); Non-African American GFR(CKD) 15 (>60 ml/min/1.73 sqM); Potassium 4.4 mmol/L (3.5-5.1); Sodium 140 mmol/L (137-145)
--- NOTE | 2024-02-22 09:38 | P.PN ---
Subjective Progress Note Date: 02/21/24 Principal diagnosis: dyspnea, coronary artery disease, chronic kidney disease Maintained on ceftriaxone, ESR and CRP both elevated, 46 and 19.1. Temperature 96.3. Blood culture reporting strep a molecular ID and the other reporting strep and a coagulase-negative staph. ID consult in place with repeat blood culture ordered. denies chest pain, palpitations or increase in shortness of breath. Currently maintaining O2 sats in the 90s on 3 L nasal cannula, used BiPAP throughout the night. Continues on gentle IV fluid hydration with current BUN 90, creatinine 3.29. echo reported preserved LV function, evaluated by cardiology with recommendations noted. Blood pressures soft. Elevated troponin, maintained on dual antiplatelet therapy, beta-josh and statin. Echo reported preserved LV function, EF 50%, moderately increased septal and posterior wall thickness, moderately increased left ventricular diastolic volume. Objective - Vital Signs Vital signs: Vital Signs Temp 96.3 F L 02/21/24 08:00 Pulse 61 02/21/24 12:00 Resp 16 02/21/24 12:00 BP 97/44 02/21/24 12:00 Pulse Ox 98 02/21/24 12:00 FiO2 35 02/21/24 03:23 Intake & Output 02/20/24 02/21/24 02/21/24 18:59 06:59 18:59 Intake Total 1434 153.014 240 Output Total 100 1050 Balance 1334 -896.986 240 Weight 92.5 kg Intake: Intake, IV Titration 153.014 Amount Heparin Sod,Pork in 0.45% 153.014 NaCl 25,000 unit In 0.45 % NaCl 1 250ml.bag @ 11. 05 UNITS/KG/HR 10 mls/hr IV .[facility]24H [facility] Rx#: [id number] Oral 1434 240 Output: Urine 100 1050 Other: Voiding Method Indwelling Catheter Indwelling Catheter Indwelling Catheter - Exam PHYSICAL EXAM: VITAL SIGNS: [As above] GENERAL: Alert and oriented x 3, sitting up in bed, no acute distress HEENT: Normocephalic, atraumatic ,conjunctivae normal. eyes normal. MMM. NECK: Supple, no JVD. CARDIOVASCULAR: S1, S2 regular. Systolic murmur RESPIRATION: Unlabored, equal air entry, essentially clear with occasional scattered rhonchi. ABDOMEN: Soft, nondistended, nontender . No guarding. +BS LEGS: Mild edema, no cyanosis, no clubbing. No calf tenderness PSYCHIATRY: Alert and oriented X3, mood and affect normal. NERVOUS SYSTEM: Cranial N 2-12 grossly normal. No focal deficits. Strength and sensation grossly intact. Skin: Warm and dry, no rash - Labs CBC & Chem 7: 02/22/24 07:09 02/22/24 07:09 Labs: Abnormal Lab Results - Last 24 Hours (Table) 02/20/24 02/21/24 02/21/24 Range/Units 16:45 06:28 06:28 ESR 46 H (0-30) mm/Hr APTT 66.5 H (22.0-30.0) sec BUN (7-17) mg/dL Creatinine (0.52-1.04) mg/dL POC Glucose (mg/dL) 53 L (70-110) mg/dL Calcium (8.4-10.2) mg/dL C-Reactive Protein (<1.0) mg/dL 02/21/24 02/21/24 Range/Units 06:28 11:52 ESR (0-30) mm/Hr APTT (22.0-30.0) sec BUN 90 H (7-17) mg/dL Creatinine 3.29 H (0.52-1.04) mg/dL POC Glucose (mg/dL) 133 H (70-110) mg/dL Calcium 8.3 L (8.4-10.2) mg/dL C-Reactive Protein 19.1 H (<1.0) mg/dL Microbiology - Last 24 Hours (Table) 02/18/24 07:35 Blood Culture Gram Stain - Final Blood Blood Culture - Final Strep A Coagulase Negative Staph 02/18/24 07:40 Blood Culture Gram Stain - Final Blood Blood Culture - Final Strep A Molecular ID Assessment and Plan Assessment: Sepsis, etiology unclear, in a patient with group a strep bacteremia, possible acute UTI Acute renal insufficiency secondary to ATN, related to the above Elevated troponin, and the patient with underlying sepsis, bacteremia and suspected UTI, possible acute NSTEMI. Cardiology following CKD, stage IIIb, baseline creatinine 1.5, secondary to cardiorenal syndrome Elevated troponin Fluid volume overload with acute hypoxic respiratory failure Diabetes mellitus CAD Iron deficient anemia Plan: Continue on current medication regimen ,monitoring and symptomatic treatment. Maintain IV antibiotics as per ID. Continue on beta-josh, dual antiplatelet therapy and statin .evaluated by cardiology with recommendations noted close monitoring of coags, renal function, electrolytes with repeat labs ordered for a.m. Close monitoring of Accu-Cheks. The impression and plan of care has been dictated as directed. : I performed a history and examination of this patient, discussed the same with the dictator. I agree with the dictator's note ,documented as a scribe. Any additional findings or plans will be noted.
--- NOTE | 2024-02-22 10:10 | P.PN ---
Subjective Progress Note Date: 02/22/24 Principal diagnosis: Lethargy, somnolence. Patient is a 74-year-old female with past medical history significant for coronary artery disease with previous CABG, atrial fibrillation, hyperlipidemia, hypertension, hypothyroidism, diabetes mellitus, CKD stage III, obstructive sleep apnea with home CPAP, chronic hypoxemic respiratory failure. Also follows in the pulmonary office with Dr. Asif aguayo, maintained on an APAP machine pressures of 5 to 20 cm of water. She was recently in the hospital for suspected CHF exacerbation fluid overload. At that time NT proBNP was 9500 and she was bradycardic. She presented to the ED again on 02/18/24 with shortness of breath. She was found unresponsive by her son. She is supposed to wear a CPAP at night. She was found to be hypoxic with O2 sat was 76% on nonrebreather. Today the patient was seen on the general medical floor and seemed to be doing well on 4 L of oxygen via nasal cannula other than a little cough along with aman ar phlegm. WBC 16.0, hemoglobin 7.2, platelets 126, sodium 137, potassium 4.8, BUN 70 and creatinine 2.69. Chest x-ray shows moderate cardiomegaly and diffuse interstitial edema or infiltrates. Troponin 1 is 8.040 ng per ml, with high NT proBNP 6970, cardio has been consulted. Denies any shortness of breath, fever, chills chest pain. She is on 2.9% normal saline at 10 m L/HR, mirtazapine 15 m g, sertraline 100 mg, carvedilol 6.25 mg twice a day, bumetanide 1 mg twice a day, clopidogrel 75 mg, furosemide 20 mg, cicyuiy85 mL/h and Rocephin 100 mm/h. Will continue to monitor. Progress note dated February 20, 2024. 74-year-old female seen yesterday in consultation. The patient was admitted w ith a diagnosis of somnolence and lethargy, with hypercapnic respiratory failure. She likely suffers from severe obstructive sleep apnea syndrome as well as obesity/hypoventilation syndrome (Pickwickian syndrome). Currently, the patient is on nasal O2, at 3 L. She is receiving IV heparin. He is getting saline at 10 cc an hour. She is in no distress. She does not have any shortness of breath, or cough, wheezing, chest pain, etc. Current laboratory data includes a white count 15.3, hemoglobin 7, hematocrit 22.4, and a platelet count of 101,000. PT 12.8, INR 1.2. Glucose is 107. Blood cultures are apparently positive for gram-positive cocci in chains, although nothing has been yet identified. Possibly Streptococcus species. The patient does continue on ceftriaxone for the time being. Progress note dated February 21, 2024. Patient is a 74-year-old female seen in room 354. She was admitted for somnolence and lethargy, with hypercapnic respiratory failure. She has severe obstructive sleep apnea syndrome and obesity hypoventilation syndrome. Currently the patient is on nasal O2 at 3 L today. She used her BiPAP machine last night. She is currently on IV heparin, oxybutynin 5 mg, and Normal Saline at 75 ml/hr. today she is in no distress. Denies any shortness of breath, co ugh, wheezing, or chest pain. Her labs show ESR 46, C-reactive protein 19.1,, sodium 137, potassium 4.8, chloride 101, BUN 90 and creatinine 3.8. Blood culture showed positive for gram-positive cocci in chains, possibly strep A and the patient is already on ceftriaxone. Will continue to monitor. Progress note dated February 22, 2024. Patient is a 74-year-old female seen in room 354. She was diagnosed with obstructive sleep apnea and obesity hypoventilation syndrome. Today the patient is on 3 L of oxygen and she used BiPAP last night. Today she feels fatigued. Her blood pressure was low last night and carvedilol was decreased to 3.125 mg twice a day from 6.25 mg twice a day. Currently she is on normal saline at 75 mill per hour. She is also on Rocephin for strep A found in the blood culture. [facility] labs show WBC 4.8, hemoglobin 7, platelets 117. From the pulmonary standpoint we feel that she would do better in an assisted living facility. Objective - Vital Signs Vital signs: Vital Signs Temp 97.6 F 02/22/24 08:00 Pulse 61 02/22/24 08:00 Resp 16 02/22/24 08:00 BP 113/53 02/22/24 08:00 Pulse Ox 99 02/22/24 08:00 FiO2 35 02/22/24 03:32 Intake & Output 02/21/24 02/22/24 02/22/24 18:59 06:59 18:59 Intake Total 480 150 Output Total 700 1075 Balance -220 -925 Weight 80.5 kg Intake: Intake, IV Titration 150 Amount Sodium Chloride 0.9% 1, 150 000 ml @ 75 mls/hr IV . [id number] [facility] Rx#:[id number] Oral 480 Output: Urine 700 1075 Other: Voiding Method Indwelling Catheter Indwelling Catheter - Exam No acute distress, oriented 3. No acute distress. No respiratory distress. Currently wearing nasal O2 at 3 L. Patient appears tired. HEENT examination is grossly unremarkable. Mucous membranes are moist. No oral lesions. Neck supple. Full range of motion. No adenopathy thyromegaly or neck vein distention. Cardiovascular examination reveals regular rhythm rate. S1-S2 normal. No S3 or S4. No discernible murmur noted. Lungs reveal mostly clear breath sounds. Few scattered rhonchi. No wheezes or crackles. Breath sounds are equal bilaterally. Abdomen soft bowel sounds are heard. No masses or tenderness. Extremities are intact. No cyanosis or clubbing. Mild edema present. Skin is without rash or lesion. Neurologic examination is brief but nonfocal. - Labs CBC & Chem 7: 02/22/24 07:09 02/22/24 07:09 Labs: Abnormal Lab Results - Last 24 Hours (Table) 02/21/24 02/21/24 02/21/24 Range/Units 06:28 11:52 16:32 RBC (3.80-5.40) m/uL Hgb (11.4-16.0) gm/dL Hct (34.0-46.0) % MCHC (31.0-37.0) g/dL RDW (11.5-15.5) % Plt Count (150-450) k/uL Lymphocytes # (1.0-4.8) k/uL ESR 46 H (0-30) mm/Hr Carbon Dioxide (22-30) mmol/L BUN (7-17) mg/dL Creatinine (0.52-1.04) mg/dL POC Glucose (mg/dL) 133 H 125 H (70-110) mg/dL 02/21/24 02/22/24 02/22/24 Range/Units 19:58 07:09 07:09 RBC 2.57 L (3.80-5.40) m/uL Hgb 7.0 L (11.4-16.0) gm/dL Hct 23.3 L (34.0-46.0) % MCHC 29.9 L (31.0-37.0) g/dL RDW 17.1 H (11.5-15.5) % Plt Count 117 L (150-450) k/uL Lymphocytes # 0.5 L (1.0-4.8) k/uL ESR (0-30) mm/Hr Carbon Dioxide 31 H (22-30) mmol/L BUN 81 H (7-17) mg/dL Creatinine 2.92 H (0.52-1.04) mg/dL POC Glucose (mg/dL) 161 H (70-110) mg/dL Microbiology - Last 24 Hours (Table) 02/18/24 07:35 Blood Culture Gram Stain - Final Blood Blood Culture - Final Strep A Coagulase Negative Staph 02/18/24 07:40 Blood Culture Gram Stain - Final Blood Blood Culture - Final Strep A Molecular ID Assessment and Plan Assessment: Acute on chronic hypoxemic and hypercapnic respiratory failure, secondary to severe obstructive sleep apnea syndrome, and obesity/hypoventilation syndrome (Pickwickian syndrome). Probable CHF exacerbation. Non-ST segment elevation myocardial infarction. History of coronary artery disease with previous bypass grafting, 1996. Severe pulmonary hypertension and cor pulmonale. Moderate aortic stenosis. Chronic kidney disease. Insulin-dependent diabetes mellitus. History of hypothyroidism. Morbid obesity. Plan: Patient continues on 3 L of oxygen and appears stable from pulmonary standpoint Normal saline at 75 cc an hour Carvedilol 3.125 mg twice a day, down from 6.25 mg twice a day due to hypotension Oxybutynin 5 mg daily Obstructive sleep apnea Obesity hypoventilation syndrome Non-ST segment elevation myocardial infarction GI prophylaxis Prognosis is guarded Time spent with the patient: 20 minutes Time with Patient: Less than 30
--- NOTE | 2024-02-22 11:16 | P.PN ---
Subjective HISTORY OF PRESENT ILLNESS: This is a 74-year-old female with a past medical history significant for coronary artery disease with previous two-vessel CABG in 1996, atrial fibrillation, hypertension, diabetes, severe pulmonary hypertension, chronic kidney disease, and history of GI bleeding. Patient follows in the office with Dr. Weller. We have been asked to see the patient in consultation for elevated troponins. Patient examined at the bedside. Patient presented to the hospital with a chief complaint of shortness of breath. Patient states that her oxygen saturations at home were very low and she thinks that she was not very responsive. The patient is currently on 4 L nasal cannula. She states her shortness of breath is improving. She denies having any chest pain or pressure prior to coming to the hospital or since being admitted. The patient was also found to be febrile with a temperature of 102. She has been started on IV a ntibiotics per primary medicine. Repeat EKG performed this morning reveals sinus mechanism with right bundle branch block with no signs of acute ischemia. DIAGNOSTICS: - EKG reveals sinus mechanism with right bundle branch block. Initial EKG reveals significant artifact. - Chest xray similar moderate cardiomegaly and diffuse interstitial infiltrate/edema - Laboratory data: WBC 12.2. Hemoglobin 7.2. Platelet count 126. Sodium 137. Potassium 4.8. BUN 70. Creatinine 2.69. Troponin 0.540. 5.420. 8.040 - Current home cardiac medications include carvedilol 6.25 mg twice a day, losartan 12.5 mg daily, Imdur 30 mg daily, Lasix 20 mg twice a day, Bumex 1 mg twice a day, Lipitor 40 mg at night - Most recent echocardiogram obtained on January 31, 2024 revealed ejection fraction 55 to 60%, severe pulmonary hypertension, severe tricuspid regurgitation, mild to moderate MR, moderate aortic stenosis with mild aortic regurgitation 02/20/2024 Patient examined this morning at the bedside. Patient currently denies chest pain or pressure. She denies shortness of breath. She remains on IV heparin. Echocardiogram is pending. Kidney function is worsened today at 3.50. Patient's blood cultures are positive for strep A. 02/22/2024 Patient examined this morning at the bedside. Patient currently denies chest pain or pressure. She reports mild shortness of breath. She feels tired this morning. Vital signs are stable. Creatinine down to 1.95. Repeat limited echo revealed ejection fraction 50%. PHYSICAL EXAM: VITAL SIGNS: Reviewed. GENERAL: Well-developed in no acute distress. HEENT: Head is normocephalic. Pupils are equal, round. Sclerae anicteric. Mucous membranes of the mouth are moist. Neck supple. No JVD or thyromegaly LUNGS: Respirations even and unlabored. Lungs essentially clear to auscultation bilaterally. HEART: Regular rate and rhythm. S1 and S2 heard. Systolic murmur noted. ABDOMEN: Soft. Nondistended. Nontender. EXTREMITIES: Normal range of motion. No clubbing or cyanosis. Peripheral pulses intact. No lower extremity edema NEUROLOGIC: Awake and alert. Oriented x 3. ASSESSMENT: Shortness of breath Febrile illness Bacteremia, blood cultures preliminary positive for strep A Acute hypoxic respiratory failure requiring BiPAP support, currently on nasal cannula Non-STEMI Acute on chronic kidney disease Coronary artery disease with previous two-vessel CABG in 1996 Paroxysmal atrial fibrillation, not anticoagulated on an outpatient basis due to history of GI bleeding Severe pulmonary hypertension Valvular heart disease including moderate aortic stenosis History of GI bleeding PLAN: Continue current cardiac medications Continue with medical management at this time. No plans for immediate cardiac catheterization due to AMINA and bacteremia Patient to undergo cardiac catheterization with Dr. Weller when she is medically stable and AMINA improves. This is likely to be performed on an outpatient basis. Further recommendations pending patient course Nurse practitioner note has been reviewed by physician. Signing provider agrees with the documented findings, assessment, and plan of care documented by STATE APPELLATE CLERK as a scribe. Objective - Vital Signs Vital signs: Vital Signs Temp 97.6 F 02/22/24 08:00 Pulse 61 02/22/24 08:00 Resp 16 02/22/24 08:00 BP 113/53 02/22/24 08:00 Pulse Ox 99 02/22/24 08:00 FiO2 35 02/22/24 03:32 Intake & Output 02/21/24 02/22/24 02/22/24 18:59 06:59 18:59 Intake Total 480 150 240 Output Total 700 1075 Balance -220 -925 240 Weight 80.5 kg Intake: Intake, IV Titration 150 Amount Sodium Chloride 0.9% 1, 150 000 ml @ 75 mls/hr IV . [id number] [facility] Rx#:[id number] Oral 480 240 Output: Urine 700 1075 Other: Voiding Method Indwelling Catheter Indwelling Catheter Indwelling Catheter - Labs CBC & Chem 7: 02/22/24 07:09 02/22/24 07:09 Labs: Abnormal Lab Results - Last 24 Hours (Table) 02/21/24 02/21/24 02/21/24 Range/Units 11:52 16:32 19:58 RBC (3.80-5.40) m/uL Hgb (11.4-16.0) gm/dL Hct (34.0-46.0) % MCHC (31.0-37.0) g/dL RDW (11.5-15.5) % Plt Count (150-450) k/uL Lymphocytes # (1.0-4.8) k/uL Carbon Dioxide (22-30) mmol/L BUN (7-17) mg/dL Creatinine (0.52-1.04) mg/dL POC Glucose (mg/dL) 133 H 125 H 161 H (70-110) mg/dL Procalcitonin (0.02-0.09) ng/mL 02/22/24 02/22/24 02/22/24 Range/Units 07:09 07:09 07:09 RBC 2.57 L (3.80-5.40) m/uL Hgb 7.0 L (11.4-16.0) gm/dL Hct 23.3 L (34.0-46.0) % MCHC 29.9 L (31.0-37.0) g/dL RDW 17.1 H (11.5-15.5) % Plt Count 117 L (150-450) k/uL Lymphocytes # 0.5 L (1.0-4.8) k/uL Carbon Dioxide 31 H (22-30) mmol/L BUN 81 H (7-17) mg/dL Creatinine 2.92 H (0.52-1.04) mg/dL POC Glucose (mg/dL) (70-110) mg/dL Procalcitonin 1.95 H (0.02-0.09) ng/mL Microbiology - Last 24 Hours (Table) 02/18/24 07:35 Blood Culture Gram Stain - Final Blood Blood Culture - Final Strep A Coagulase Negative Staph 02/18/24 07:40 Blood Culture Gram Stain - Final Blood Blood Culture - Final Strep A Molecular ID
[2024-02-22 11:37] LABS: Glucose,Whole Blood 175 mg/dL (70-110)
--- NOTE | 2024-02-22 11:41 | P.PN ---
Subjective patient is seen for follow-up for acute kidney injury. No significant complaints today. She has had good urine output. Serum creatinine decreased to 0.9 mg/dL. Patient is status post IV fluids Objective - Vital Signs Vital signs: Vital Signs Temp 97.6 F 02/22/24 08:00 Pulse 61 02/22/24 08:00 Resp 16 02/22/24 08:00 BP 113/53 02/22/24 08:00 Pulse Ox 99 02/22/24 08:00 FiO2 35 02/22/24 03:32 Intake & Output 02/21/24 02/22/24 02/22/24 18:59 06:59 18:59 Intake Total 480 150 240 Output Total 700 1075 Balance -220 -925 240 Weight 80.5 kg Intake: Intake, IV Titration 150 Amount Sodium Chloride 0.9% 1, 150 000 ml @ 75 mls/hr IV . [id number] [facility] Rx#:[id number] Oral 480 240 Output: Urine 700 1075 Other: Voiding Method Indwelling Catheter Indwelling Catheter Indwelling Catheter - Exam patient is awake, comfortable, no acute distress. Examination of the heart S1 and S2 Examination the lungs bilateral breath sounds are heard Abdomen is soft obese nontender Examination of lower extremities shows trace edema bilaterally with chronic skin changes [employer] exam grossly intact - Labs CBC & Chem 7: 02/22/24 07:09 02/22/24 07:09 Labs: Abnormal Lab Results - Last 24 Hours (Table) 02/21/24 02/21/24 02/21/24 Range/Units 11:52 16:32 19:58 RBC (3.80-5.40) m/uL Hgb (11.4-16.0) gm/dL Hct (34.0-46.0) % MCHC (31.0-37.0) g/dL RDW (11.5-15.5) % Plt Count (150-450) k/uL Lymphocytes # (1.0-4.8) k/uL Carbon Dioxide (22-30) mmol/L BUN (7-17) mg/dL Creatinine (0.52-1.04) mg/dL POC Glucose (mg/dL) 133 H 125 H 161 H (70-110) mg/dL Procalcitonin (0.02-0.09) ng/mL 02/22/24 02/22/2402/21/24 Range/Units 07:09 07:09 07:09 RBC 2.57 L (3.80-5.40) m/uL Hgb 7.0 L (11.4-16.0) gm/dL Hct 23.3 L (34.0-46.0) % MCHC 29.9 L (31.0-37.0) g/dL RDW 17.1 H (11.5-15.5) % Plt Count 117 L (150-450) k/uL Lymphocytes # 0.5 L (1.0-4.8) k/uL Carbon Dioxide 31 H (22-30) mmol/L BUN 81 H (7-17) mg/dL Creatinine 2.92 H (0.52-1.04) mg/dL POC Glucose (mg/dL) (70-110) mg/dL Procalcitonin 1.95 H (0.02-0.09) ng/mL 02/22/24 Range/Units 11:36 RBC (3.80-5.40) m/uL Hgb (11.4-16.0) gm/dL Hct (34.0-46.0) % MCHC (31.0-37.0) g/dL RDW (11.5-15.5) % Plt Count (150-450) k/uL Lymphocytes # (1.0-4.8) k/uL Carbon Dioxide (22-30) mmol/L BUN (7-17) mg/dL Creatinine (0.52-1.04) mg/dL POC Glucose (mg/dL) 175 H (70-110) mg/dL Procalcitonin (0.02-0.09) ng/mL Microbiology - Last 24 Hours (Table) 02/18/24 07:35 Blood Culture Gram Stain - Final Blood Blood Culture - Final Strep A Coagulase Negative Staph 02/18/24 07:40 Blood Culture Gram Stain - Final Blood Blood Culture - Final Strep A Molecular ID Assessment and Plan Assessment: 1. Acute kidney injury secondary to ATN likely secondary to sepsis. Creatinine improved to 2.9 today. No hydronephrosis noted on recent kidney ultrasound. UA consistent with UTI. status post IV fluids. 2. Chronic kidney disease stage IIIb with baseline creatinine 1.5-1.6 secondary to nephrosclerosis and cardiorenal syndrome. 3. Acute on chronic diastolic CHF with moderate aortic stenosis, moderate mitral regurgitation, severe tricuspid regurgitation and pulmonary hypertension. 4. Volume overload with hypoxia. 5. Diabetes mellitus. 6. Coronary artery disease status post CABG with elevated troponin 7. Anemia. Iron deficiency noted. status post IV iron 8. Metabolic alkalosis from diuresis and FLORES 9. Sepsis with strep A bacteremia and UTI. Plan: encourage increased oral intake. Continue with antibiotics Repeat labs in a.m. decreased Coreg as blood pressure was low, now improved.
--- NOTE | 2024-02-22 14:50 | P.PN ---
Subjective Progress Note Date: 02/22/24 Principal diagnosis: dyspnea, coronary artery disease, chronic kidney disease Maintained on ceftriaxone, ESR and CRP both elevated, 46 and 19.1. Temperature 96.3. Blood culture reporting strep a molecular ID and the other reporting strep and a coagulase-negative staph. ID consult in place with repeat blood culture ordered. denies chest pain, palpitations or increase in shortness of breath. Currently maintaining O2 sats in the 90s on 3 L nasal cannula, used BiPAP throughout the night. Continues on gentle IV fluid hydration with current BUN 90, creatinine 3.29. echo reported preserved LV function, evaluated by cardiology with recommendations noted. Blood pressures soft. Elevated troponin, maintained on dual antiplatelet therapy, beta-josh and statin. Echo reported preserved LV function, EF 50%, moderately increased septal and posterior wall thickness, moderately increased left ventricular diastolic volume. 02/22/2024 continues on ceftriaxone .afebrile, WBC has normalized. Repeat procalcitonin increased. renal function continues improving, creatinine 2.92. Hemoglobin 7, platelets 117. Blood pressures soft yesterday, improving on decreased dose of Coreg. Blood sugars ranging from 81-175. Currently resting without wearing her BiPAP-instructed to wear her BiPAP during napping as well as nighttime sleep. Denies chest pain, palpitations or increased shortness of breath. Discussed subacute rehab at discharge, patient is in agreement with. Objective - Vital Signs Vital signs: Vital Signs Temp 97.6 F 02/22/24 08:00 Pulse 61 02/22/24 08:00 Resp 16 02/22/24 08:00 BP 113/53 02/22/24 08:00 Pulse Ox 99 02/22/24 08:00 FiO2 35 02/22/24 03:32 Intake & Output 02/21/24 02/22/24 02/22/24 18:59 06:59 18:59 Intake Total 480 150 240 Output Total 700 1075 Balance -220 -925 240 Weight 80.5 kg Intake: Intake, IV Titration 150 Amount Sodium Chloride 0.9% 1, 150 000 ml @ 75 mls/hr IV . [id number] [facility] Rx#:[id number] Oral 480 240 Output: Urine 700 1075 Other: Voiding Method Indwelling Catheter Indwelling Catheter Indwelling Catheter - Exam PHYSICAL EXAM: VITAL SIGNS: [As above] GENERAL: Alert and oriented x 3, napping in bed,no acute distress HEENT: Normocephalic, atraumatic ,conjunctivae normal. eyes normal. MMM. NECK: Supple, no JVD. CARDIOVASCULAR: S1, S2 regular. Systolic murmur RESPIRATION: Unlabored, equal air entry, essentially clear with occasional scattered rhonchi. ABDOMEN: Soft, nondistended, nontender . No guarding. +BS LEGS: No edema, no cyanosis, no clubbing. No calf tenderness NERVOUS SYSTEM: Cranial N 2-12 grossly normal. No focal deficits. Strength and sensation grossly intact. Skin: Warm and dry, no rash - Labs CBC & Chem 7: 02/22/24 07:09 02/22/24 07:09 Labs: Abnormal Lab Results - Last 24 Hours (Table) 02/21/24 02/21/24 02/22/24 Range/Units 16:32 19:58 07:09 RBC 2.57 L (3.80-5.40) m/uL Hgb 7.0 L (11.4-16.0) gm/dL Hct 23.3 L (34.0-46.0) % MCHC 29.9 L (31.0-37.0) g/dL RDW 17.1 H (11.5-15.5) % Plt Count 117 L (150-450) k/uL Lymphocytes # 0.5 L (1.0-4.8) k/uL Carbon Dioxide (22-30) mmol/L BUN (7-17) mg/dL Creatinine (0.52-1.04) mg/dL POC Glucose (mg/dL) 125 H 161 H (70-110) mg/dL Procalcitonin (0.02-0.09) ng/mL 02/22/24 02/22/24 02/22/24 Range/Units 07:09 07:09 11:36 RBC (3.80-5.40) m/uL Hgb (11.4-16.0) gm/dL Hct (34.0-46.0) % MCHC (31.0-37.0) g/dL RDW (11.5-15.5) % Plt Count (150-450) k/uL Lymphocytes # (1.0-4.8) k/uL Carbon Dioxide 31 H (22-30) mmol/L BUN 81 H (7-17) mg/dL Creatinine 2.92 H (0.52-1.04) mg/dL POC Glucose (mg/dL) 175 H (70-110) mg/dL Procalcitonin 1.95 H (0.02-0.09) ng/mL Microbiology - Last 24 Hours (Table) 02/18/24 07:35 Blood Culture Gram Stain - Final Blood Blood Culture - Final Strep A Coagulase Negative Staph 02/18/24 07:40 Blood Culture Gram Stain - Final Blood Blood Culture - Final Strep A Molecular ID Assessment and Plan Assessment: Sepsis, etiology unclear, in a patient with group a strep bacteremia, possible acute UTI Acute renal insufficiency secondary to ATN, related to the above Elevated troponin, and the patient with underlying sepsis, bacteremia and suspected UTI, possible acute NSTEMI. Cardiology following CKD, stage IIIb, baseline creatinine 1.5, secondary to cardiorenal syndrome Elevated troponin Fluid volume overload with acute hypoxic respiratory failure Diabetes mellitus CAD Iron deficient anemia Plan: Continue on current medication regimen ,monitoring and symptomatic treat ment. Maintain beta-josh, dual antiplatelet therapy and statin .Given patient's current bacteremia, acute renal insufficiency, cardiac cath remains on hold .continue IV antibiotics as per ID. Close monitoring of coags, renal function, electrolytes with repeat labs ordered for a.m. discharge planning for subacute rehab at discharge. The impression and plan of care has been dictated as directed. : I performed a history and examination of this patient, discussed the same with the dictator. I agree with the dictator's note ,documented as a scribe. Any additional findings or plans will be noted.
[2024-02-22 16:35] LABS: Glucose,Whole Blood 177 mg/dL (70-110)
[2024-02-22 21:07] LABS: Glucose,Whole Blood 166 mg/dL (70-110)
--- NOTE | 2024-02-22 22:02 | P.PN ---
Subjective Progress Note Date: 02/22/24 Principal diagnosis: Reason for follow-up with group A strep bacteremia left leg cellulitis Patient is a 74-year-old female with a past medical history significant for atrial fibrillation coronary artery disease diabetes mellitus hypertension hyperlipidemia pneumonia sleep apnea patient has been brought into the hospital for evaluation of increasing shortness of breath, patient did have group B strep bacteremia prompting this consultation. On today's evaluation that is 02/22/2024, the patient continues to be afebrile, the patient is on 3 L nasal cannula oxygen and breathing comfortably, the Pt denies having any chest pain or cough, the patient denies having any abdominal pain no vomiting or any diarrhea has been reported by the nursing staff patient was noticed to have swelling and redness to the left thigh and leg area. The patient white count is 4.8, creatinine is 2.92 blood culture repeat currently pending Objective - Vital Signs Vital signs: Vital Signs Temp 97.6 F 02/22/24 08:00 Pulse 63 02/22/24 12:00 Resp 16 02/22/24 12:00 BP 121/58 02/22/24 12:00 Pulse Ox 98 02/22/24 12:00 FiO2 35 02/22/24 03:32 Intake & Output 02/21/24 02/22/24 02/22/24 18:59 06:59 18:59 Intake Total 480 150 240 Output Total 700 1075 Balance -220 -925 240 Weight 80.5 kg Intake: Intake, IV Titration 150 Amount Sodium Chloride 0.9% 1, 150 000 ml @ 75 mls/hr IV . [id number] [facility] Rx#:[id number] Oral 480 240 Output: Urine 700 1075 Other: Voiding Method Indwelling Catheter Indwelling Catheter Indwelling Catheter - Exam GENERAL DESCRIPTION: An elderly female lying in bed in no distress RESPIRATORY SYSTEM: Unlabored breathing , decreased breath sounds at bases HEART: S1 S2 regular rate and rhythm , ABDOMEN: Soft , no tenderness EXTREMITIES: Left thigh and leg area did have swelling and redness which is warm and tender to touch - Labs CBC & Chem 7: 02/22/24 07:09 02/22/24 07:09 Labs: Abnormal Lab Results - Last 24 Hours (Table) 02/21/24 02/21/24 02/22/24 Range/Units 16:32 19:58 07:09 RBC 2.57 L (3.80-5.40) m/uL Hgb 7.0 L (11.4-16.0) gm/dL Hct 23.3 L (34.0-46.0) % MCHC 29.9 L (31.0-37.0) g/dL RDW 17.1 H (11.5-15.5) % Plt Count 117 L (150-450) k/uL Lymphocytes # 0.5 L (1.0-4.8) k/uL Carbon Dioxide (22-30) mmol/L BUN (7-17) mg/dL Creatinine (0.52-1.04) mg/dL POC Glucose (mg/dL) 125 H 161 H (70-110) mg/dL Procalcitonin (0.02-0.09) ng/mL 02/22/24 02/22/24 02/22/24 Range/Units 07:09 07:09 11:36 RBC (3.80-5.40) m/uL Hgb (11.4-16.0) gm/dL Hct (34.0-46.0) % MCHC (31.0-37.0) g/dL RDW (11.5-15.5) % Plt Count (150-450) k/uL Lymphocytes # (1.0-4.8) k/uL Carbon Dioxide 31 H (22-30) mmol/L BUN 81 H (7-17) mg/dL Creatinine 2.92 H (0.52-1.04) mg/dL POC Glucose (mg/dL) 175 H (70-110) mg/dL Procalcitonin 1.95 H (0.02-0.09) ng/mL Microbiology - Last 24 Hours (Table) 02/21/24 06:28 Blood Culture - Preliminary Blood 02/18/24 07:35 Blood Culture Gram Stain - Final Blood Blood Culture - Final Strep A Coagulase Negative Staph 02/18/24 07:40 Blood Culture Gram Stain - Final Blood Blood Culture - Final Strep A Molecular ID Assessment and Plan (1) Sepsis Current Visit: Yes Status: Acute Code(s): A41.9 - SEPSIS, UNSPECIFIED ORG ANISM SNOMED Code(s): 58893565 (2) Bacteremia Current Visit: Yes Status: Acute Code(s): R78.81 - BACTEREMIA SNOMED Code(s): 4714708 (3) Urinary tract infection Current Visit: Yes Status: Acute Code(s): N39.0 - URINARY TRACT INFECTION, SITE NOT SPECIFIED SNOMED Code(s): 37745691 (4) Left leg cellulitis Current Visit: Yes Status: Acute Code(s): L03.116 - CELLULITIS OF LEFT LOWER LIMB SNOMED Code(s): 23809539424123168 Plan: 1patient presented to hospital with sepsis in this patient who did have a fever hypotension source could be likely UTI and did have significantly positive UA patient also have a cough underlying pneumonia not entirely excluded 2patient with group A strep bacteremia which is usually of skin and soft tissue source, patient was noticed to have a left thigh and leg cellulitis likely source of this bacteremia repeat blood cultures are currently pending 3penicillin allergy did have limited number of antibiotics safe to use 4 renal insufficiency and high risk of nephrotoxicity. 5patient to continue withRocephin 2 g daily to continue and monitor left lower extremity swelling redness closely Dictation was produced using [employer] dictation software. please excuse any grammatical, word or spelling errors. Time with Patient: Less than 30
[2024-02-23 06:18] LABS: Glucose,Whole Blood 125 mg/dL (70-110)
[2024-02-23 09:15] LABS: Anisocytosis Slight; Basophils % (A) 0 %; Eosinophils # (A) 0.1 k/uL (0-0.7); Eosinophils % (A) 3 %; Hypochromasia Marked; Lymphocytes # (A) 0.3 k/uL (1.0-4.8); Lymphocytes % (A) 8 %; MCH 27.7 pg (25.0-35.0); MCHC 30.4 g/dL (31.0-37.0); MCV 91.1 fL (80.0-100.0); Mean Platelet Volume 8.9; Monocytes # (A) 0.3 k/uL (0-1.0); Monocytes % (A) 7 %; Neutrophils # (A) 3.3 k/uL (1.3-7.7); Neutrophils % (A) 80 %; Platelet Count 113 k/uL (150-450); RBC 2.53 m/uL (3.80-5.40); RDW 16.8 % (11.5-15.5); WBC 4.1 k/uL (3.8-10.6)
--- NOTE | 2024-02-23 10:07 | P.PN ---
Subjective Progress Note Date: 02/23/24 Principal diagnosis: Lethargy, somnolence. Patient is a 74-year-old female with past medical history significant for coronary artery disease with previous CABG, atrial fibrillation, hyperlipidemia, hypertension, hypothyroidism, diabetes mellitus, CKD stage III, obstructive sleep apnea with home CPAP, chronic hypoxemic respiratory failure. Also follows in the pulmonary office with Dr. Asif aguayo, maintained on an APAP machine pressures of 5 to 20 cm of water. She was recently in the hospital for suspected CHF exacerbation fluid overload. At that time NT proBNP was 9500 and she was bradycardic. She presented to the ED again on 02/18/24 with shortness of breath. She was found unresponsive by her son. She is supposed to wear a CPAP at night. She was found to be hypoxic with O2 sat was 76% on nonrebreather. Today the patient was seen on the general medical floor and seemed to be doing well on 4 L of oxygen via nasal cannula other than a little cough along with aman ar phlegm. WBC 16.0, hemoglobin 7.2, platelets 126, sodium 137, potassium 4.8, BUN 70 and creatinine 2.69. Chest x-ray shows moderate cardiomegaly and diffuse interstitial edema or infiltrates. Troponin 1 is 8.040 ng per ml, with high NT proBNP 6970, cardio has been consulted. Denies any shortness of breath, fever, chills chest pain. She is on 2.9% normal saline at 10 m L/HR, mirtazapine 15 m g, sertraline 100 mg, carvedilol 6.25 mg twice a day, bumetanide 1 mg twice a day, clopidogrel 75 mg, furosemide 20 mg, [id number] mL/h and Rocephin 100 mm/h. Will continue to monitor. Progress note dated February 20, 2024. 74-year-old female seen yesterday in consultation. The patient was admitted w ith a diagnosis of somnolence and lethargy, with hypercapnic respiratory failure. She likely suffers from severe obstructive sleep apnea syndrome as well as obesity/hypoventilation syndrome (Pickwickian syndrome). Currently, the patient is on nasal O2, at 3 L. She is receiving IV heparin. He is getting saline at 10 cc an hour. She is in no distress. She does not have any shortness of breath, or cough, wheezing, chest pain, etc. Current laboratory data includes a white count 15.3, hemoglobin 7, hematocrit 22.4, and a platelet count of 101,000. PT 12.8, INR 1.2. Glucose is 107. Blood cultures are apparently positive for gram-positive cocci in chains, although nothing has been yet identified. Possibly Streptococcus species. The patient does continue on ceftriaxone for the time being. Progress note dated February 21, 2024. Patient is a 74-year-old female seen in room 354. She was admitted for somnolence and lethargy, with hypercapnic respiratory failure. She has severe obstructive sleep apnea syndrome and obesity hypoventilation syndrome. Currently the patient is on nasal O2 at 3 L today. She used her BiPAP machine last night. She is currently on IV heparin, oxybutynin 5 mg, and Normal Saline at 75 ml/hr. today she is in no distress. Denies any shortness of breath, co ugh, wheezing, or chest pain. Her labs show ESR 46, C-reactive protein 19.1,, sodium 137, potassium 4.8, chloride 101, BUN 90 and creatinine 3.8. Blood culture showed positive for gram-positive cocci in chains, possibly strep A and the patient is already on ceftriaxone. Will continue to monitor. Progress note dated February 22, 2024. Patient is a 74-year-old female seen in room 354. She was diagnosed with obstructive sleep apnea and obesity hypoventilation syndrome. Today the patient is on 3 L of oxygen and she used BiPAP last night. Today she feels fatigued. Her blood pressure was low last night and carvedilol was decreased to 3.125 mg twice a day from 6.25 mg twice a day. Currently she is on normal saline at 75 mill per hour. She is also on Rocephin for strep A found in the blood culture. [facility] labs show WBC 4.8, hemoglobin 7, platelets 117. From the pulmonary standpoint we feel that she would do better in an assisted living facility. Progress note dated February 23 2024. 74-year-old female seen in her room with BiPAP machine on. She is admitted for obstructive sleep apnea, obesity hypoventilation syndrome, hypercapnic respiratory failure and non-STEMI. She is currently using the BiPAP machine at 35% O2, IPAP 12 cm H2O, EPAP 5 cm H2O. She is currently not on any IV fluids. She continues on Rocephin for positive blood culture with gram-positive cocci, possibly strep A. Cardiac cath has been put on hold due to AMINA and bacteremia. Cardiac cath will be done as an outpatient by Dr. Weller when she is medically stable and the kidney function improves. She has been put on beta-josh, dual antiplatelet therapy, statin. Denies shortness of breath, and cough. She will be best served in a subacute rehab facility or fci. Prognosis is guarded. Will continue to follow and make recommendations. Objective - Vital Signs Vital signs: Vital Signs Temp 97.8 F 02/23/24 08:00 Pulse 64 02/23/24 08:00 Resp 20 02/23/24 08:00 BP 120/58 02/23/24 08:00 Pulse Ox 98 02/23/24 08:00 FiO2 35 02/23/24 07:43 Intake & Output 02/22/24 02/23/24 02/23/24 18:59 06:59 18:59 Intake Total 720 10 Output Total 900 600 Balance -180 -600 10 Weight 97.5 kg Intake: IV 10 Invasive Line 3 10 Oral 720 Output: Urine 900 600 Other: Voiding Method Indwelling Catheter Indwelling Catheter - Exam No acute distress, oriented 3. No acute distress. No respiratory distress. Currently on BiPAP machinee. HEENT examination is grossly unremarkable. Mucous membranes are moist. No oral lesions. Neck supple. Full range of motion. No adenopathy thyromegaly or neck vein distention. Cardiovascular examination reveals regular rhythm rate. S1-S2 normal. No S3 or S4. No discernible murmur noted. Lungs reveal mostly clear breath sounds. Few scattered rhonchi. No wheezes or crackles. Breath sounds are equal bilaterally. Abdomen soft bowel sounds are heard. No masses or tenderness. Extremities are intact. No cyanosis or clubbing. Mild edema present. Skin is without rash or lesion. Neurologic examination is brief but nonfocal. - Labs CBC & Chem 7: 02/23/24 08:07 02/22/24 07:09 Labs: Abnormal Lab Results - Last 24 Hours (Table) 02/22/24 02/22/24 02/22/24 Range/Units 07:09 11:36 16:34 RBC (3.80-5.40) m/uL Hgb (11.4-16.0) gm/dL Hct (34.0-46.0) % MCHC (31.0-37.0) g/dL RDW (11.5-15.5) % Plt Count (150-450) k/uL Lymphocytes # (1.0-4.8) k/uL POC Glucose (mg/dL) 175 H 177 H (70-110) mg/dL Procalcitonin 1.95 H (0.02-0.09) ng/mL 02/22/24 02/23/24 02/23/24 Range/Units 21:06 06:17 08:07 RBC 2.53 L (3.80-5.40) m/uL Hgb 7.0 L (11.4-16.0) gm/dL Hct 23.0 L (34.0-46.0) % MCHC 30.4 L (31.0-37.0) g/dL RDW 16.8 H (11.5-15.5) % Plt Count 113 L (150-450) k/uL Lymphocytes # 0.3 L (1.0-4.8) k/uL POC Glucose (mg/dL) 166 H 125 H (70-110) mg/dL Procalcitonin (0.02-0.09) ng/mL Microbiology - Last 24 Hours (Table) 02/21/24 06:28 Blood Culture - Preliminary Blood Assessment and Plan Assessment: Acute on chronic hypoxemic and hypercapnic respiratory failure, secondary to severe obstructive sleep apnea syndrome, and obesity/hypoventilation syndrome (Pickwickian syndrome). Acute Kidney Injury Strep A bacteremia Probable CHF exacerbation. Non-ST segment elevation myocardial infarction. History of coronary artery disease with previous bypass grafting, 1996. Severe pulmonary hypertension and cor pulmonale. Moderate aortic stenosis. Insulin-dependent diabetes mellitus. History of hypothyroidism. Morbid obesity. Plan: Patient is on BiPAP Cardiac cath will be done as an outpatient procedure by Dr. Weller once AMINA and bacteremia are resolved Continue metoprolol, dual antiplatelet therapy, statin Carvedilol 3.125 mg twice a day Oxybutynin 5 mg daily Rocephin for strep A bacteremia GI prophylaxis Prognosis is guarded Time spent with the patient: 20 minutes Time with Patient: Less than 30
[2024-02-23 10:44] LABS: African American GFR (CKD) 22 (>60 ml/min/1.73 sqM); Anion Gap 6 mmol/L; Blood Urea Nitrogen 74 mg/dL (7-17); Calcium 8.6 mg/dL (8.4-10.2); Carbon Dioxide 29 mmol/L (22-30); Chloride 106 mmol/L (98-107); Glucose 101 mg/dL (74-99); Non-African American GFR(CKD) 19 (>60 ml/min/1.73 sqM); Potassium 4.3 mmol/L (3.5-5.1); Sodium 141 mmol/L (137-145)
[2024-02-23 11:33] LABS: Glucose,Whole Blood 88 mg/dL (70-110)
--- NOTE | 2024-02-23 11:51 | P.PN ---
Subjective patient is seen for follow-up for acute kidney injury. No significant complaints today. She has had good urine output. Serum creatinine decreased to 2.3 mg/dL. Patient is status post IV fluids Objective - Vital Signs Vital signs: Vital Signs Temp 97.8 F 02/23/24 08:00 Pulse 64 02/23/24 08:00 Resp 20 02/23/24 08:00 BP 120/58 02/23/24 08:00 Pulse Ox 98 02/23/24 08:00 FiO2 35 02/23/24 07:43 Intake & Output 02/22/24 02/23/24 02/23/24 18:59 06:59 18:59 Intake Total 720 10 Output Total 900 600 400 Balance -180 -600 -390 Weight 97.5 kg Intake: IV 10 Invasive Line 3 10 Oral 720 Output: Urine 900 600 400 Other: Voiding Method Indwelling Catheter Indwelling Catheter Indwelling Catheter - Exam patient is awake, comfortable, no acute distress. Examination of the heart S1 and S2 Examination the lungs bilateral breath sounds are heard Abdomen is soft obese nontender Examination of lower extremities shows trace edema bilaterally with chronic skin changes ASH [employer]ER exam grossly intact - Labs CBC & Chem 7: 02/23/24 08:07 02/23/24 08:07 Labs: Abnormal Lab Results - Last 24 Hours (Table) 02/22/24 02/22/24 02/23/24 Range/Units 16:34 21:06 06:17 RBC (3.80-5.40) m/uL Hgb (11.4-16.0) gm/dL Hct (34.0-46.0) % MCHC (31.0-37.0) g/dL RDW (11.5-15.5) % Plt Count (150-450) k/uL Lymphocytes # (1.0-4.8) k/uL BUN (7-17) mg/dL Creatinine (0.52-1.04) mg/dL Glucose (74-99) mg/dL POC Glucose (mg/dL) 177 H 166 H 125 H (70-110) mg/dL 02/23/24 02/23/24 Range/Units 08:07 08:07 RBC 2.53 L (3.80-5.40) m/uL Hgb 7.0 L (11.4-16.0) gm/dL Hct 23.0 L (34.0-46.0) % MCHC 30.4 L (31.0-37.0) g/dL RDW 16.8 H (11.5-15.5) % Plt Count 113 L (150-450) k/uL Lymphocytes # 0.3 L (1.0-4.8) k/uL BUN 74 H (7-17) mg/dL Creatinine 2.38 H (0.52-1.04) mg/dL Glucose 101 H (74-99) mg/dL POC Glucose (mg/dL) (70-110) mg/dL Microbiology - Last 24 Hours (Table) 02/21/24 06:28 Blood Culture - Preliminary Blood Assessment and Plan Assessment: 1. Acute kidney injury secondary to ATN likely secondary to sepsis. Creatinine improved to 2.3 today. No hydronephrosis noted on recent kidney ultrasound. UA consistent with UTI. status post IV fluids. 2. Chronic kidney disease stage IIIb with baseline creatinine 1.5-1.6 secondary to nephrosclerosis and cardiorenal syndrome. 3. Acute on chronic diastolic CHF with moderate aortic stenosis, moderate mitral regurgitation, severe tricuspid regurgitation and pulmonary hypertension. 4. Volume overload with hypoxia. 5. Diabetes mellitus. 6. Coronary artery disease status post CABG with elevated troponin 7. Anemia. Iron deficiency noted. status post IV iron 8. Metabolic alkalosis from diuresis and FLORES 9. Sepsis with strep A bacteremia and UTI. Plan: encourage increased oral intake. Continue with antibiotics Repeat labs in a.m.
--- NOTE | 2024-02-23 13:04 | P.DS ---
Providers Date of admission: 02/18/24 10:23 Expected date of discharge: 02/23/24 Attending physician: Marcelino Cruz Consults: 02/18/24 10:19 Consult Physician Urgent Consulting Provider: Jonathan Lewis Consult Reason/Comments: bipap resp failure, copd, chf Do you want consulting provider notified?: Yes 02/18/24 13:37 Consult Physician Stat Consulting Provider: Gordon Lance Consult Reason/Comments: elevated troponins Do you want consulting provider notified?: Yes 02/19/24 12:12 Consult Physician Routine Consulting Provider: Kavya Paul Consult Reason/Comments: AMINA on CKD, will need eventual cath Do you want consulting provider notified?: Yes 02/20/24 11:29 Consult Physician Urgent Consulting Provider: Ramiro Ellington Consult Reason/Comments: group A strep Do you want consulting provider notified?: Yes Primary care physician: [place] [facility] Hospital Course: Final Diagnoses: Sepsis, etiology unclear, in a patient with group A strep bacteremia, left leg cellulitis, possible acute UTI with positive UA Acute renal insufficiency secondary to ATN, related to the above Elevated troponin, and the patient with underlying sepsis, bacteremia and suspected UTI, possible acute NSTEMI. Cardiology following CKD, stage IIIb, baseline creatinine 1.5, secondary to cardiorenal syndrome Elevated troponin Fluid volume overload with acute hypoxic respiratory failure Diabetes mellitus CAD Iron deficient anemia, chronic Hospital course: Principal diagnosis: dyspnea, coronary artery disease, chronic kidney disease this is a 74-year-old female well-known to my practice long-standing history of coronary artery disease with 2 vessel CABG 97 A. fib hypertension type 2 diabetes. Pulmonary hypertension chronic kidney disease was recently seen in my office patient presented with chest pain elevated troponins, low oxygen sats at home, patient is currently on 4 L nasal cannula, and currently uses BiPAP routinely at home Maintained on ceftriaxone, ESR and CRP both elevated, 46 and 19.1. Temperature 96.3. Blood culture reporting strep a molecular ID and the other reporting strep and a coagulase-negative staph. ID consult in place with repeat blood culture ordered. denies chest pain, palpitations or increase in shortness of breath. Currently maintaining O2 sats in the 90s on 3 L nasal cannula, used BiPAP throughout the night. Continues on gentle IV fluid hydration with current BUN 90, creatinine 3.29. echo reported preserved LV function, evaluated by cardiology with recommendations noted. Blood pressures soft. Elevated troponin, maintained on dual antiplatelet therapy, beta-josh and statin. Echo reported preserved LV function, EF 50%, moderately increased septal and posterior wall thickness, moderately increased left ventricular diastolic volume. 02/22/2024 continues on ceftriaxone .afebrile, WBC has normalized. Repeat procalcitonin increased. renal function continues improving, creatinine 2.92. Hemoglobin 7, platelets 117. Blood pressures soft yesterday, improving on decreased dose of Coreg. Blood sugars ranging from 81-175. Currently resting without wearing her BiPAP-instructed to wear her BiPAP during napping as well as nighttime sleep. Denies chest pain, palpitations or increased shortness of breath. Discussed subacute rehab at discharge, patient is in agreement with. 02/23/2020 preliminary repeat blood cultures reporting no growth after 24 hours. Cefazolin added as per ID for left leg cellulitis. Clotrimazole cream to fungal appearing folds. Diuretics remain on hold, renal function continues to improve, with creatinine down to 2.38. Hemoglobin remains at 7, platelets 113 .afebrile normal WBC. Continues using BiPAP at night and when napping. Blood sugars controlled. Cardiac catheterization outpatient as per cardiology pending clearance of bacteremia, renal function returning to baseline. Patient will be discharged to [facility] today in a stable condition with guarded prognosis pending final DC recommendations and clearance per ID, nephrology, pulmonary and cardiology. The impression and plan of care has been dictated as directed. : I performed a history and examination of this patient, discussed the same with the dictator. I agree with the dictator's note ,documented as a scribe. Any additional findings or plans will be noted. Patient Condition at Discharge: Stable Plan - Discharge Summary New Discharge Prescriptions: New carvediloL [Coreg] 3.125 mg PO BID-W/MEALS tab Clopidogrel [Plavix] 75 mg PO DAILY tab Aspirin 81 mg PO DAILY tab Clotrimazole Cream [Lotrimin Cream] 1 applic TOPICAL BID #1 each Continue Atorvastatin [Lipitor] 40 mg PO HS Isosorbide Mononitrate [Isosorbide Mononitrate ER] 30 mg PO DAILY Oxybutynin Chloride 5 mg PO DAILY Mirtazapine [Remeron] 15 mg PO HS Insulin Glargine,Hum.rec.anlog [Toujeo Solostar] 14 units SQ BID Gabapentin [Neurontin] 200 mg PO BID #12 cap HYDROcodone/APAP 10-325MG [Tyler 10-325] 1 tab PO Q8H PRN #9 tab PRN Reason: Pain Acetaminophen Tab [Tylenol] 650 mg PO Q6H PRN PRN Reason: Pain Levothyroxine Sodium [Synthroid] 50 mcg PO DAILY Sertraline [Zoloft] 100 mg PO BID INSULIN ASPART (NovoLOG) [NovoLOG (formulary)] 20 unit SQ BID Pantoprazole [Protonix] 40 mg PO DAILY Discontinued Bumetanide [BUMEX] 1 mg PO BID@0900,1600 30 Days #60 tab carvediloL [Coreg] 6.25 mg PO BID-W/MEALS 30 Days #60 tab Furosemide [Lasix] 20 mg PO BID Potassium Chloride ER [K-Dur 10] 10 meq PO DAILY Losartan [Cozaar] 12.5 mg PO DAILY 30 Days #15 tab amLODIPine [Norvasc] 5 mg PO BID 30 Days #60 tab Discharge Medication List Atorvastatin [Lipitor] 40 mg PO HS 08/10/16 [History] Isosorbide Mononitrate [Isosorbide Mononitrate ER] 30 mg PO DAILY 08/10/16 [History] Oxybutynin Chloride 5 mg PO DAILY 08/10/16 [History] Mirtazapine [Remeron] 15 mg PO HS 04/12/22 [History] Acetaminophen Tab [Tylenol] 650 mg PO Q6H PRN 05/08/22 [History] Levothyroxine Sodium [Synthroid] 50 mcg PO DAILY 12/17/22 [History] Sertraline [Zoloft] 100 mg PO BID 12/17/22 [History] INSULIN ASPART (NovoLOG) [NovoLOG (formulary)] 20 unit SQ BID 01/30/24 [History] Insulin Glargine,Hum.rec.anlog [Toujeo Solostar] 14 units SQ BID 01/30/24 [History] Pantoprazole [Protonix] 40 mg PO DAILY 01/30/24 [History] Aspirin 81 mg PO DAILY tab 02/23/24 [Rx] Clopidogrel [Plavix] 75 mg PO DAILY tab 02/23/24 [Rx] Clotrimazole Cream [Lotrimin Cream] 1 applic TOPICAL BID #1 each 02/23/24 [Rx] Gabapentin [Neurontin] 200 mg PO BID #12 cap 02/23/24 [Rx] HYDROcodone/APAP 10-325MG [Tyler 10-325] 1 tab PO Q8H PRN #9 tab 02/23/24 [Rx] carvediloL [Coreg] 3.125 mg PO BID-W/MEALS tab 02/23/24 [Rx] Follow up Appointment(s)/Referral(s): Maik Jama MD [STAFF PHYSICIAN] - 3 Days Activity/Diet/Wound Care/Special Instructions: [facility] BiPAP, settings as per pulmonary diuretics currently on hold CBC,BMP in 3 days Discharge Disposition: TRANSFER TO SNF/ECF
--- NOTE | 2024-02-23 13:23 | P.PN ---
Subjective HISTORY OF PRESENT ILLNESS: This is a 74-year-old female with a past medical history significant for coronary artery disease with previous two-vessel CABG in 1996, atrial fibrillation, hypertension, diabetes, severe pulmonary hypertension, chronic kidney disease, and history of GI bleeding. Patient follows in the office with Dr. Weller. We have been asked to see the patient in consultation for elevated troponins. Patient examined at the bedside. Patient presented to the hospital with a chief complaint of shortness of breath. Patient states that her oxygen saturations at home were very low and she thinks that she was not very responsive. The patient is currently on 4 L nasal cannula. She states her shortness of breath is improving. She denies having any chest pain or pressure prior to coming to the hospital or since being admitted. The patient was also found to be febrile with a temperature of 102. She has been started on IV a ntibiotics per primary medicine. Repeat EKG performed this morning reveals sinus mechanism with right bundle branch block with no signs of acute ischemia. DIAGNOSTICS: - EKG reveals sinus mechanism with right bundle branch block. Initial EKG reveals significant artifact. - Chest xray similar moderate cardiomegaly and diffuse interstitial infiltrate/edema - Laboratory data: WBC 12.2. Hemoglobin 7.2. Platelet count 126. Sodium 137. Potassium 4.8. BUN 70. Creatinine 2.69. Troponin 0.540. 5.420. 8.040 - Current home cardiac medications include carvedilol 6.25 mg twice a day, losartan 12.5 mg daily, Imdur 30 mg daily, Lasix 20 mg twice a day, Bumex 1 mg twice a day, Lipitor 40 mg at night - Most recent echocardiogram obtained on January 31, 2024 revealed ejection fraction 55 to 60%, severe pulmonary hypertension, severe tricuspid regurgitation, mild to moderate MR, moderate aortic stenosis with mild aortic regurgitation 02/20/2024 Patient examined this morning at the bedside. Patient currently denies chest pain or pressure. She denies shortness of breath. She remains on IV heparin. Echocardiogram is pending. Kidney function is worsened today at 3.50. Patient's blood cultures are positive for strep A. 02/22/2024 Patient examined this morning at the bedside. Patient currently denies chest pain or pressure. She reports mild shortness of breath. She feels tired this morning. Vital signs are stable. Creatinine down to 1.95. Repeat limited echo revealed ejection fraction 50%. 02/23/2024 Patient examined this morning at bedside. Patient currently denies chest pain or pressure. She denies shortness of breath. Vital signs are stable. Creatinine today 2.38. PHYSICAL EXAM: VITAL SIGNS: Reviewed. GENERAL: Well-developed in no acute distress. HEENT: Head is normocephalic. Pupils are equal, round. Sclerae anicteric. Mucous membranes of the mouth are moist. Neck supple. No JVD or thyromegaly LUNGS: Respirations even and unlabored. Lungs essentially clear to auscultation bilaterally. HEART: Regular rate and rhythm. S1 and S2 heard. Systolic murmur noted. ABDOMEN: Soft. Nondistended. Nontender. EXTREMITIES: Normal range of motion. No clubbing or cyanosis. Peripheral pulses intact. No lower extremity edema NEUROLOGIC: Awake and alert. Oriented x 3. ASSESSMENT: Shortness of breath Febrile illness Bacteremia, blood cultures preliminary positive for strep A Acute hypoxic respiratory failure requiring BiPAP support, currently on nasal cannula Non-STEMI Acute on chronic kidney disease Coronary artery disease with previous two-vessel CABG in 1996 Paroxysmal atrial fibrillation, not anticoagulated on an outpatient basis due to history of GI bleeding Severe pulmonary hypertension Valvular heart disease including moderate aortic stenosis History of GI bleeding PLAN: Continue current cardiac medications Continue with medical management at this time. No plans for immediate cardiac catheterization due to AMINA and bacteremia Patient to undergo cardiac catheterization with Dr. Weller when she is medically stable and AMINA improves. This is likely to be performed on an outpatient basis. Further recommendations pending patient course Nurse practitioner note has been reviewed by physician. Signing provider agrees with the documented findings, assessment, and plan of care documented by COAT P[employer]DER as a scribe. Objective - Vital Signs Vital signs: Vital Signs Temp 98 F 02/23/24 12:00 Pulse 63 02/23/24 12:00 Resp 20 02/23/24 12:00 BP 125/58 02/23/24 12:00 Pulse Ox 97 02/23/24 12:00 FiO2 35 02/23/24 07:43 Intake & Output 02/22/24 02/23/24 02/23/24 18:59 06:59 18:59 Intake Total 720 250 Output Total 900 600 400 Balance -180 -600 -150 Weight 97.5 kg Intake: IV 10 Invasive Line 3 10 Oral 720 240 Output: Urine 900 600 400 Other: Voiding Method Indwelling Catheter Indwelling Catheter Indwelling Catheter - Labs CBC & Chem 7: 02/23/24 08:07 02/23/24 08:07 Labs: Abnormal Lab Results - Last 24 Hours (Table) 02/22/24 02/22/24 02/23/24 Range/Units 16:34 21:06 06:17 RBC (3.80-5.40) m/uL Hgb (11.4-16.0) gm/dL Hct (34.0-46.0) % MCHC (31.0-37.0) g/dL RDW (11.5-15.5) % Plt Count (150-450) k/uL Lymphocytes # (1.0-4.8) k/uL BUN (7-17) mg/dL Creatinine (0.52-1.04) mg/dL Glucose (74-99) mg/dL POC Glucose (mg/dL) 177 H 166 H 125 H (70-110) mg/dL 02/23/24 02/23/24 Range/Units 08:07 08:07 RBC 2.53 L (3.80-5.40) m/uL Hgb 7.0 L (11.4-16.0) gm/dL Hct 23.0 L (34.0-46.0) % MCHC 30.4 L (31.0-37.0) g/dL RDW 16.8 H (11.5-15.5) % Plt Count 113 L (150-450) k/uL Lymphocytes # 0.3 L (1.0-4.8) k/uL BUN 74 H (7-17) mg/dL Creatinine 2.38 H (0.52-1.04) mg/dL Glucose 101 H (74-99) mg/dL POC Glucose (mg/dL) (70-110) mg/dL Microbiology - Last 24 Hours (Table) 02/21/24 06:28 Blood Culture - Preliminary Blood
[2024-02-23 16:21] LABS: Glucose,Whole Blood 100 mg/dL (70-110)
[2024-02-23 20:10] LABS: Glucose,Whole Blood 131 mg/dL (70-110)
[2024-02-23] MEDS: CLOTRIMAZOLE 1% CREAM 30 GM TUBE TOPICAL SCH (21:50)
[2024-02-24 05:58] LABS: Glucose,Whole Blood 138 mg/dL (70-110)
[2024-02-24 08:55] VITALS: BMI 34.2
[2024-02-24 09:30] LABS: African American GFR (CKD) 27 (>60 ml/min/1.73 sqM); Anion Gap 5 mmol/L; Blood Urea Nitrogen 69 mg/dL (7-17); Calcium 8.6 mg/dL (8.4-10.2); Carbon Dioxide 30 mmol/L (22-30); Chloride 106 mmol/L (98-107); Glucose 166 mg/dL (74-99); Non-African American GFR(CKD) 23 (>60 ml/min/1.73 sqM); Potassium 4.5 mmol/L (3.5-5.1); Sodium 141 mmol/L (137-145)
[2024-02-24 09:35] LABS: Anisocytosis Slight; HCT 22.2 % (34.0-46.0); Hypochromasia Marked; MCH 27.7 pg (25.0-35.0); MCHC 30.4 g/dL (31.0-37.0); MCV 91.2 fL (80.0-100.0); Mean Platelet Volume 9.4; RBC 2.43 m/uL (3.80-5.40); RDW 16.8 % (11.5-15.5); WBC 5.4 k/uL (3.8-10.6)
[2024-02-24 09:39] LABS: HGB 6.8 gm/dL (11.4-16.0)
--- NOTE | 2024-02-24 09:40 | P.PN ---
Subjective Progress Note Date: 02/23/24 Principal diagnosis: Reason for follow-up with group A strep bacteremia left leg cellulitis Patient is a 74-year-old female with a past medical history significant for atrial fibrillation coronary artery disease diabetes mellitus hypertension hyperlipidemia pneumonia sleep apnea patient has been brought into the hospital for evaluation of increasing shortness of breath, patient did have group B strep bacteremia prompting this consultation. On today's evaluation that is 02/23/2024, the patient remains to be afebrile, the patient is on 3 L nasal cannula oxygen and breathing comfortably, the Pt denies having any chest pain or cough, the patient denies having any abdominal pain no vomiting or any diarrhea has been reported by the nursing staff on any worsening pain to the left neck. Patient white count is 4.1, creatinine is 2.38 blood culture repeat has been n egative so far Objective - Vital Signs Vital signs: Vital Signs Temp 97.8 F 02/23/24 08:00 Pulse 64 02/23/24 08:00 Resp 20 02/23/24 08:00 BP 120/58 02/23/24 08:00 Pulse Ox 98 02/23/24 08:00 FiO2 35 02/23/24 07:43 Intake & Output 02/22/24 02/23/24 02/23/24 18:59 06:59 18:59 Intake Total 720 10 Output Total 900 600 400 Balance -180 -600 -390 Weight 97.5 kg Intake: IV 10 Invasive Line 3 10 Oral 720 Output: Urine 900 600 400 Other: Voiding Method Indwelling Catheter Indwelling Catheter Indwelling Catheter - Exam GENERAL DESCRIPTION: An elderly female lying in bed in no distress RESPIRATORY SYSTEM: Unlabored breathing , decreased breath sounds at bases HEART: S1 S2 regular rate and rhythm , ABDOMEN: Soft , no tenderness EXTREMITIES: Left thigh and leg area did have swelling and redness which is warm and tender to touch slightly decreased in intensity - Labs CBC & Chem 7: 02/23/24 08:07 02/24/24 08:21 Labs: Abnormal Lab Results - Last 24 Hours (Table) 02/22/24 02/22/24 02/23/24 Range/Units 16:34 21:06 06:17 RBC (3.80-5.40) m/uL Hgb (11.4-16.0) gm/dL Hct (34.0-46.0) % MCHC (31.0-37.0) g/dL RDW (11.5-15.5) % Plt Count (150-450) k/uL Lymphocytes # (1.0-4.8) k/uL BUN (7-17) mg/dL Creatinine (0.52-1.04) mg/dL Glucose (74-99) mg/dL POC Glucose (mg/dL) 177 H 166 H 125 H (70-110) mg/dL 02/23/24 02/23/24 Range/Units 08:07 08:07 RBC 2.53 L (3.80-5.40) m/uL Hgb 7.0 L (11.4-16.0) gm/dL Hct 23.0 L (34.0-46.0) % MCHC 30.4 L (31.0-37.0) g/dL RDW 16.8 H (11.5-15.5) % Plt Count 113 L (150-450) k/uL Lymphocytes # 0.3 L (1.0-4.8) k/uL BUN 74 H (7-17) mg/dL Creatinine 2.38 H (0.52-1.04) mg/dL Glucose 101 H (74-99) mg/dL POC Glucose (mg/dL) (70-110) mg/dL Microbiology - Last 24 Hours (Table) 02/21/24 06:28 Blood Culture - Preliminary Blood Assessment and Plan (1) Sepsis Current Visit: Yes Status: Acute Code(s): A41.9 - SEPSIS, UNSPECIFIED ORGANISM SNOMED Code(s): 60804315 (2) Bacteremia Current Visit: Yes Status: Acute Code(s): R78.81 - BACTEREMIA SNOMED Code(s): 1153549 (3) Urinary tract infection Current Visit: Yes Status: Acute Code(s): N39.0 - URINARY TRACT INFECTION, SITE NOT SPECIFIED SNOMED Code(s): 83158562 (4) Left leg cellulitis Current Visit: Yes Status: Acute Code(s): L03.116 - CELLULITIS OF LEFT LOWER LIMB SNOMED Code(s): 74751592140954155 Plan: 1patient presented to hospital with sepsis in this patient who did have a fever hypotension source could be likely UTI and did have significantly positive UA patient also have a cough underlying pneumonia not entirely excluded 2patient with group A strep bacteremia which is usually of skin and soft tissue source, patient was noticed to have a left thigh and leg cellulitis likely source of this bacteremia repeat blood cultures are currently pending 3penicillin allergy did have limited number of antibiotics safe to use 4 renal insufficiency and high risk of nephrotoxicity. 5patient antibiotic adjusted to cefazolin 2 g every 12 hours we will keep on IV cefazolin for another day or 2 depending upon her left leg cellulitis before transition to oral antibiotic discussed with RN HOME CARE for admitting team Dictation was produced using [employer] dictation software. please excuse any grammatical, word or spelling errors. Time with Patient: Less than 30
[2024-02-24 10:09] LABS: Platelet Count 92 k/uL (150-450)
--- NOTE | 2024-02-24 11:19 | P.PN ---
Subjective Progress Note Date: 02/24/24 Principal diagnosis: Lethargy, somnolence. Patient is a 74-year-old female with past medical history significant for coronary artery disease with previous CABG, atrial fibrillation, hyperlipidemia, hypertension, hypothyroidism, diabetes mellitus, CKD stage III, obstructive sleep apnea with home CPAP, chronic hypoxemic respiratory failure. Also follows in the pulmonary office with Dr. Asif aguayo, maintained on an APAP machine pressures of 5 to 20 cm of water. She was recently in the hospital for suspected CHF exacerbation fluid overload. At that time NT proBNP was 9500 and she was bradycardic. She presented to the ED again on 02/18/24 with shortness of breath. She was found unresponsive by her son. She is supposed to wear a CPAP at night. She was found to be hypoxic with O2 sat was 76% on nonrebreather. Today the patient was seen on the general medical floor and seemed to be doing well on 4 L of oxygen via nasal cannula other than a little cough along with aman ar phlegm. WBC 16.0, hemoglobin 7.2, platelets 126, sodium 137, potassium 4.8, BUN 70 and creatinine 2.69. Chest x-ray shows moderate cardiomegaly and diffuse interstitial edema or infiltrates. Troponin 1 is 8.040 ng per ml, with high NT proBNP 6970, cardio has been consulted. Denies any shortness of breath, fever, chills chest pain. She is on 2.9% normal saline at 10 m L/HR, mirtazapine 15 m g, sertraline 100 mg, carvedilol 6.25 mg twice a day, bumetanide 1 mg twice a day, clopidogrel 75 mg, furosemide 20 mg, [id number] mL/h and Rocephin 100 mm/h. Will continue to monitor. Progress note dated February 20, 2024. 74-year-old female seen yesterday in consultation. The patient was admitted w ith a diagnosis of somnolence and lethargy, with hypercapnic respiratory failure. She likely suffers from severe obstructive sleep apnea syndrome as well as obesity/hypoventilation syndrome (Pickwickian syndrome). Currently, the patient is on nasal O2, at 3 L. She is receiving IV heparin. He is getting saline at 10 cc an hour. She is in no distress. She does not have any shortness of breath, or cough, wheezing, chest pain, etc. Current laboratory data includes a white count 15.3, hemoglobin 7, hematocrit 22.4, and a platelet count of 101,000. PT 12.8, INR 1.2. Glucose is 107. Blood cultures are apparently positive for gram-positive cocci in chains, although nothing has been yet identified. Possibly Streptococcus species. The patient does continue on ceftriaxone for the time being. Progress note dated February 21, 2024. Patient is a 74-year-old female seen in room 354. She was admitted for somnolence and lethargy, with hypercapnic respiratory failure. She has severe obstructive sleep apnea syndrome and obesity hypoventilation syndrome. Currently the patient is on nasal O2 at 3 L today. She used her BiPAP machine last night. She is currently on IV heparin, oxybutynin 5 mg, and Normal Saline at 75 ml/hr. today she is in no distress. Denies any shortness of breath, co ugh, wheezing, or chest pain. Her labs show ESR 46, C-reactive protein 19.1,, sodium 137, potassium 4.8, chloride 101, BUN 90 and creatinine 3.8. Blood culture showed positive for gram-positive cocci in chains, possibly strep A and the patient is already on ceftriaxone. Will continue to monitor. Progress note dated February 22, 2024. Patient is a 74-year-old female seen in room 354. She was diagnosed with obstructive sleep apnea and obesity hypoventilation syndrome. Today the patient is on 3 L of oxygen and she used BiPAP last night. Today she feels fatigued. Her blood pressure was low last night and carvedilol was decreased to 3.125 mg twice a day from 6.25 mg twice a day. Currently she is on normal saline at 75 mill per hour. She is also on Rocephin for strep A found in the blood culture. [facility] WBC 4.8, hemoglobin 7, platelets 117. From the pulmonary standpoint we feel that she would do better in an assisted living facility. Progress note dated February 23 2024. 74-year-old female seen in her room with BiPAP machine on. She is admitted for obstructive sleep apnea, obesity hypoventilation syndrome, hypercapnic respiratory failure and non-STEMI. She is currently using the BiPAP machine at 35% O2, IPAP 12 cm H2O, EPAP 5 cm H2O. She is currently not on any IV fluids. She continues on Rocephin for positive blood culture with gram-positive cocci, possibly strep A. Cardiac cath has been put on hold due to AMINA and bacteremia. Cardiac cath will be done as an outpatient by Dr. Weller when she is medically stable and the kidney function improves. She has been put on beta-josh, dual antiplatelet therapy, statin. Denies shortness of breath, and cough. She will be best served in a subacute rehab facility or intermediate. Prognosis is guarded. Will continue to follow and make recommendations. Progress note dated February 24 2024. 74-year-old female seen alone today with oxygen via nasal cannula at 3 L. She is admitted for obstructive sleep apnea and obesity hypoventilation syndrome and uses a BiPAP machine at night with 35% FiO2, IPAP 2 cm H2O, EPAP 5 cm H2O. She is currently getting IV fluids normal saline at 10 ml/h. She was on Rocephin for strep A found on blood culture. Blood culture result on 02/21/2024 does not show any growth after 48 hours. Denies shortness of breath, cough, chest pain. Cardiac cath will be done as an outpatient procedure by Dr. Weller. Labs show WBC 5.4, hemoglobin 6.8, platelet 92, sodium 141, potassium 4.5, chloride 106, BUN 69 and creatinine 2.07 with glucose 166. She is stable to be discharged from the pulmonary standpoint and will go to [facility] today. Objective - Vital Signs Vital signs: Vital Signs Temp 98.2 F 02/24/24 08:10 Pulse 61 02/24/24 08:10 Resp 16 02/24/24 08:10 BP 137/53 02/24/24 08:10 Pulse Ox 98 02/24/24 08:10 FiO2 35 02/24/24 03:03 Intake & Output 02/23/24 02/24/24 02/24/24 18:59 06:59 18:59 Intake Total 500 20 236 Output Total 1300 550 475 Balance -800 -530 -239 Weight 99 kg 99 kg Intake: IV 20 20 Invasive Line 3 20 20 Oral 480 236 Output: Urine 1300 550 475 Other: Voiding Method Indwelling Catheter Indwelling Catheter Indwelling Catheter - Exam No acute distress, oriented 3. No acute distress. No respiratory distress. Currently on 3 L of oxygen via nasal cannula. HEENT examination is grossly unremarkable. Mucous membranes are moist. No oral lesions. Neck supple. Full range of motion. No adenopathy thyromegaly or neck vein distention. Cardiovascular examination reveals regular rhythm rate. S1-S2 normal. No S3 or S4. No discernible murmur noted. Lungs reveal mostly clear breath sounds. Few scattered rhonchi. No wheezes or crackles. Breath sounds are equal bilaterally. Abdomen soft bowel sounds are heard. No masses or tenderness. Extremities are intact. No cyanosis or clubbing. Mild edema present. Skin is without rash or lesion. Neurologic examination is brief but nonfocal. - Labs CBC & Chem 7: 02/24/24 08:21 02/24/24 08:21 Labs: Abnormal Lab Results - Last 24 Hours (Table) 02/23/24 02/24/24 02/24/24 Range/Units 20:08 05:56 08:21 RBC 2.43 L (3.80-5.40) m/uL Hgb 6.8 L* (11.4-16.0) gm/dL Hct 22.2 L (34.0-46.0) % MCHC 30.4 L (31.0-37.0) g/dL RDW 16.8 H (11.5-15.5) % Plt Count 92 L (150-450) k/uL BUN (7-17) mg/dL Creatinine (0.52-1.04) mg/dL Glucose (74-99) mg/dL POC Glucose (mg/dL) 131 H 138 H (70-110) mg/dL 02/24/24 Range/Units 08:21 RBC (3.80-5.40) m/uL Hgb (11.4-16.0) gm/dL Hct (34.0-46.0) % MCHC (31.0-37.0) g/dL RDW (11.5-15.5) % Plt Count (150-450) k/uL BUN 69 H (7-17) mg/dL Creatinine 2.07 H (0.52-1.04) mg/dL Glucose 166 H (74-99) mg/dL POC Glucose (mg/dL) (70-110) mg/dL Microbiology - Last 24 Hours (Table) 07/22/24 06:28 Blood Culture - Preliminary Blood Assessment and Plan Assessment: Acute on chronic hypoxemic and hypercapnic respiratory failure, secondary to severe obstructive sleep apnea syndrome, and obesity/hypoventilation syndrome (Pickwickian syndrome). Acute Kidney Injury Strep A bacteremia Probable CHF exacerbation. Non-ST segment elevation myocardial infarction. History of coronary artery disease with previous bypass grafting, 1996. Severe pulmonary hypertension and cor pulmonale. Moderate aortic stenosis. Insulin-dependent diabetes mellitus. History of hypothyroidism. Morbid obesity. Plan: Will be discharged to [facility] today. Patient is on 3 L of oxygen via nasal cannula. BiPAP machine at night IPAP 12 cm H2O, EPAP 5 cm H2O, FiO2 35% Cardiac cath will be done as an outpatient procedure by Dr. Weller once AMINA and bacteremia are resolved Continue metoprolol, dual antiplatelet therapy, statin Carvedilol 3.125 mg twice a day Oxybutynin 5 mg daily Rocephin for strep A bacteremia GI prophylaxis Prognosis is guarded Time spent with the patient: 20 minutes Time with Patient: Less than 30
[2024-02-24 11:43] LABS: Glucose,Whole Blood 138 mg/dL (70-110)
[2024-02-24] MEDS: DARBEPOETIN ALFA 60 MCG/0.3 ML SYRINGE SQ SCH (12:25)
--- NOTE | 2024-02-24 12:25 | P.PN ---
Subjective HISTORY OF PRESENT ILLNESS: This is a 74-year-old female with a past medical history significant for coronary artery disease with previous two-vessel CABG in 1996, atrial fibrillation, hypertension, diabetes, severe pulmonary hypertension, chronic kidney disease, and history of GI bleeding. Patient follows in the office with Dr. Weller. We have been asked to see the patient in consultation for elevated troponins. Patient examined at the bedside. Patient presented to the hospital with a chief complaint of shortness of breath. Patient states that her oxygen saturations at home were very low and she thinks that she was not very responsive. The patient is currently on 4 L nasal cannula. She states her shortness of breath is improving. She denies having any chest pain or pressure prior to coming to the hospital or since being admitted. The patient was also found to be febrile with a temperature of 102. She has been started on IV a ntibiotics per primary medicine. Repeat EKG performed this morning reveals sinus mechanism with right bundle branch block with no signs of acute ischemia. DIAGNOSTICS: - EKG reveals sinus mechanism with right bundle branch block. Initial EKG reveals significant artifact. - Chest xray similar moderate cardiomegaly and diffuse interstitial infiltrate/edema - Laboratory data: WBC 12.2. Hemoglobin 7.2. Platelet count 126. Sodium 137. Potassium 4.8. BUN 70. Creatinine 2.69. Troponin 0.540. 5.420. 8.040 - Current home cardiac medications include carvedilol 6.25 mg twice a day, losartan 12.5 mg daily, Imdur 30 mg daily, Lasix 20 mg twice a day, Bumex 1 mg twice a day, Lipitor 40 mg at night - Most recent echocardiogram obtained on January 31, 2024 revealed ejection fraction 55 to 60%, severe pulmonary hypertension, severe tricuspid regurgitation, mild to moderate MR, moderate aortic stenosis with mild aortic regurgitation 02/20/2024 Patient examined this morning at the bedside. Patient currently denies chest pain or pressure. She denies shortness of breath. She remains on IV heparin. Echocardiogram is pending. Kidney function is worsened today at 3.50. Patient's blood cultures are positive for strep A. 02/22/2024 Patient examined this morning at the bedside. Patient currently denies chest pain or pressure. She reports mild shortness of breath. She feels tired this morning. Vital signs are stable. Creatinine down to 1.95. Repeat limited echo revealed ejection fraction 50%. 02/23/2024 Patient examined this morning at bedside. Patient currently denies chest pain or pressure. She denies shortness of breath. Vital signs are stable. Creatinine today 2.38. 02/24/2024 Patient examined this morning at bedside. Patient currently denies chest pain or pressure. She denies shortness of breath. Vital signs are stable. PHYSICAL EXAM: VITAL SIGNS: Reviewed. GENERAL: Well-developed in no acute distress. HEENT: Head is normocephalic. Pupils are equal, round. Sclerae anicteric. Mucous membranes of the mouth are moist. Neck supple. No JVD or thyromegaly LUNGS: Respirations even and unlabored. Lungs essentially clear to auscultation bilaterally. HEART: Regular rate and rhythm. S1 and S2 heard. Systolic murmur noted. ABDOMEN: Soft. Nondistended. Nontender. EXTREMITIES: Normal range of motion. No clubbing or cyanosis. Peripheral pulses intact. No lower extremity edema NEUROLOGIC: Awake and alert. Oriented x 3. ASSESSMENT: Shortness of breath Febrile illness Bacteremia, blood cultures preliminary positive for strep A Acute hypoxic respiratory failure requiring BiPAP support, currently on nasal cannula Non-STEMI Acute on chronic kidney disease Coronary artery disease with previous two-vessel CABG in 1996 Paroxysmal atrial fibrillation, not anticoagulated on an outpatient basis due to history of GI bleeding Severe pulmonary hypertension Valvular heart disease including moderate aortic stenosis History of GI bleeding PLAN: Continue current cardiac medications Continue with medical management at this time. No plans for immediate cardiac catheterization due to AMINA and bacteremia Patient to undergo cardiac catheterization with Dr. Weller when she is medically stable and AMINA improves. This is likely to be performed on an outpatient basis. May be discharged from a cardiac standpoint Further recommendations pending patient course Nurse practitioner note has been reviewed by physician. Signing provider agrees with the documented findings, assessment, and plan of care documented by [employer] as a scribe. Objective - Vital Signs Vital signs: Vital Signs Temp 98.2 F 02/24/24 08:10 Pulse 61 02/24/24 08:10 Resp 16 02/24/24 08:10 BP 137/53 02/24/24 08:10 Pulse Ox 98 02/24/24 08:10 FiO2 35 02/24/24 03:03 Intake & Output 02/23/24 02/24/24 02/24/24 18:59 06:59 18:59 Intake Total 500 20 236 Output Total 1300 550 475 Balance -800 -530 -239 Weight 99 kg 99 kg Intake: IV 20 20 Invasive Line 3 20 20 Oral 480 236 Output: Urine 1300 550 475 Other: Voiding Method Indwelling Catheter Indwelling Catheter Indwelling Catheter - Labs CBC & Chem 7: 02/24/24 08:21 02/24/24 08:21 Labs: Abnormal Lab Results - Last 24 Hours (Table) 02/23/24 02/24/24 02/24/24 Range/Units 20:08 05:56 08:21 RBC 2.43 L (3.80-5.40) m/uL Hgb 6.8 L* (11.4-16.0) gm/dL Hct 22.2 L (34.0-46.0) % MCHC 30.4 L (31.0-37.0) g/dL RDW 16.8 H (11.5-15.5) % Plt Count 92 L (150-450) k/uL BUN (7-17) mg/dL Creatinine (0.52-1.04) mg/dL Glucose (74-99) mg/dL POC Glucose (mg/dL) 131 H 138 H (70-110) mg/dL 02/24/24 02/24/24 Range/Units 08:21 11:41 RBC (3.80-5.40) m/uL Hgb (11.4-16.0) gm/dL Hct (34.0-46.0) % MCHC (31.0-37.0) g/dL RDW (11.5-15.5) % Plt Count (150-450) k/uL BUN 69 H (7-17) mg/dL Creatinine 2.07 H (0.52-1.04) mg/dL Glucose 166 H (74-99) mg/dL POC Glucose (mg/dL) 138 H (70-110) mg/dL Microbiology - Last 24 Hours (Table) 02/21/24 06:28 Blood Culture - Preliminary Blood
--- NOTE | 2024-02-24 12:47 | P.PN ---
Subjective patient is seen for follow-up for acute kidney injury. No significant complaints today. She has had good urine output. Serum creatinine decreased to 2.0 mg/dL. Hemoglobin was 6.8 today. No obvious bleeding noted. Objective - Vital Signs Vital signs: Vital Signs Temp 98.2 F 02/24/24 08:10 Pulse 61 02/24/24 08:10 Resp 16 02/24/24 08:10 BP 137/53 02/24/24 08:10 Pulse Ox 98 02/24/24 08:10 FiO2 35 02/24/24 03:03 Intake & Output 02/23/24 02/24/24 02/24/24 18:59 06:59 18:59 Intake Total 500 20 236 Output Total 1300 550 475 Balance -800 -530 -239 Weight 99 kg 99 kg Intake: IV 20 20 Invasive Line 3 20 20 Oral 480 236 Output: Urine 1300 550 475 Other: Voiding Method Indwelling Catheter Indwelling Catheter Indwelling Catheter - Exam patient is awake, comfortable, no acute distress. Examination of the heart S1 and S2 Examination the lungs bilateral breath sounds are heard Abdomen is soft obese nontender Examination of lower extremities shows trace edema bilaterally with chronic skin changes PET HANDLER exam grossly intact - Labs CBC & Chem 7: 02/24/24 08:21 02/24/24 08:21 Labs: Abnormal Lab Results - Last 24 Hours (Table) 02/23/24 02/24/24 02/24/24 Range/Units 20:08 05:56 08:21 RBC 2.43 L (3.80-5.40) m/uL Hgb 6.8 L* (11.4-16.0) gm/dL Hct 22.2 L (34.0-46.0) % MCHC 30.4 L (31.0-37.0) g/dL RDW 16.8 H (11.5-15.5) % Plt Count 92 L (150-450) k/uL BUN (7-17) mg/dL Creatinine (0.52-1.04) mg/dL Glucose (74-99) mg/dL POC Glucose (mg/dL) 131 H 138 H (70-110) mg/dL 02/24/24 02/24/24 Range/Units 08:21 11:41 RBC (3.80-5.40) m/uL Hgb (11.4-16.0) gm/dL Hct (34.0-46.0) % MCHC (31.0-37.0) g/dL RDW (11.5-15.5) % Plt Count (150-450) k/uL BUN 69 H (7-17) mg/dL Creatinine 2.07 H (0.52-1.04) mg/dL Glucose 166 H (74-99) mg/dL POC Glucose (mg/dL) 138 H (70-110) mg/dL Microbiology - Last 24 Hours (Table) 02/21/24 06:28 Blood Culture - Preliminary Blood Assessment and Plan Assessment: 1. Acute kidney injury secondary to ATN likely secondary to sepsis. Creatinine improved to 2.0 today. No hydronephrosis noted on recent kidney ultrasound. UA consistent with UTI. status post IV fluids. 2. Chronic kidney disease stage IIIb with baseline creatinine 1.5-1.6 secondary to nephrosclerosis and cardiorenal syndrome. 3. Acute on chronic diastolic CHF with moderate aortic stenosis, moderate mitral regurgitation, severe tricuspid regurgitation and pulmonary hypertension. 4. Volume overload with hypoxia. 5. Diabetes mellitus. 6. Coronary artery disease status post CABG with elevated troponin 7. Anemia. Iron deficiency noted. status post IV iron during the recent adm ission in December. Hb staying around 7 g/dL 8. Metabolic alkalosis from diuresis and FLORES 9. Sepsis with strep A bacteremia and UTI. Plan: add Aranesp . agree with transfusion of 1 unit packed RBCs. hemoglobin has been staying around 7 g/dL encourage increased oral intake. Continue with antibiotics okay for discharge from nephrology standpoint
--- NOTE | 2024-02-24 15:00 | P.PN ---
Subjective Progress Note Date: 02/24/24 Principal diagnosis: Reason for follow-up with group A strep bacteremia left leg cellulitis Patient is a 74-year-old female with a past medical history significant for atrial fibrillation coronary artery disease diabetes mellitus hypertension hyperlipidemia pneumonia sleep apnea patient has been brought into the hospital for evaluation of increasing shortness of breath, patient did have group B strep bacteremia prompting this consultation. On today's evaluation that is 02/24/2024, patient has been afebrile, patient is breathing comfortably and is currently on 3 L nasal cannula oxygen patient denies having any significant cough no chest pain shortness of breath, patient denies nausea vomiting or diarrhea and no abdominal pain denies pain to the left lower extremity. Patient white count is 5.4, creatinine is 2.07 blood culture repeat has been negative Objective - Vital Signs Vital signs: Vital Signs Temp 98.2 F 02/24/24 08:10 Pulse 61 02/24/24 08:10 Resp 16 02/24/24 08:10 BP 137/53 02/24/24 08:10 Pulse Ox 98 02/24/24 08:10 FiO2 35 02/24/24 03:03 Intake & Output 02/23/24 02/24/24 02/24/24 18:59 06:59 18:59 Intake Total 500 20 236 Output Total 1300 550 475 Balance -800 -530 -239 Weight 99 kg 99 kg Intake: IV 20 20 Invasive Line 3 20 20 Oral 480 236 Output: Urine 1300 550 475 Other: Voiding Method Indwelling Catheter Indwelling Catheter Indwelling Catheter - Exam GENERAL DESCRIPTION: An elderly female lying in bed in no distress RESPIRATORY SYSTEM: Unlabored breathing , decreased breath sounds at bases HEART: S1 S2 regular rate and rhythm , ABDOMEN: Soft , no tenderness EXTREMITIES: Left thigh and leg area swelling redness slightly decreased - Labs CBC & Chem 7: 02/24/24 08:21 02/24/24 08:21 Labs: Abnormal Lab Results - Last 24 Hours (Table) 02/23/24 02/23/24 02/24/24 Range/Units 08:07 20:08 05:56 RBC (3.80-5.40) m/uL Hgb (11.4-16.0) gm/dL Hct (34.0-46.0) % MCHC (31.0-37.0) g/dL RDW (11.5-15.5) % BUN 74 H (7-17) mg/dL Creatinine 2.38 H (0.52-1.04) mg/dL Glucose 101 H (74-99) mg/dL POC Glucose (mg/dL) 131 H 138 H (70-110) mg/dL 02/24/24 02/24/24 Range/Units 08:21 08:21 RBC 2.43 L (3.80-5.40) m/uL Hgb 6.8 L* (11.4-16.0) gm/dL Hct 22.2 L (34.0-46.0) % MCHC 30.4 L (31.0-37.0) g/dL RDW 16.8 H (11.5-15.5) % BUN 69 H (7-17) mg/dL Creatinine 2.07 H (0.52-1.04) mg/dL Glucose 166 H (74-99) mg/dL POC Glucose (mg/dL) (70-110) mg/dL Microbiology - Last 24 Hours (Table) 02/21/24 06:28 Blood Culture - Preliminary Blood Assessment and Plan (1) Sepsis Current Visit: Yes Status: Acute Code(s): A41.9 - SEPSIS, UNSPECIFIED ORGANISM SNOMED Code(s): 92971274 (2) Bacteremia Current Visit: Yes Status: Acute Code(s): R78.81 - BACTEREMIA SNOMED Code(s): 8950576 (3) Urinary tract infection Current Visit: Yes Status: Acute Code(s): N39.0 - URINARY TRACT INFECTION, SITE NOT SPECIFIED SNOMED Code(s): 71624517 (4) Left leg cellulitis Current Visit: Yes Status: Acute Code(s): L03.116 - CELLULITIS OF LEFT LOWER LIMB SNOMED Code(s): 18434494022682408 Plan: 1patient presented to hospital with sepsis in this patient who did have a fever hypotension source could be likely UTI and did have significantly positive UA patient also have a cough underlying pneumonia not entirely excluded 2patient with group A strep bacteremia which is usually of skin and soft tissue source, patient was noticed to have a left thigh and leg cellulitis likely source of this bacteremia repeat blood cultures are currently pending 3penicillin allergy that will limit number of antibiotics safe to use 4 renal insufficiency and high risk of nephrotoxicity. 5patient continue with IV cefazolin keep in mind extensive infection and bacteremia midline has been requested plan is for a 10-day course of IV cefazolin on discharge discussed with FINAL ASSEMBLY WORKER and for admitting team working on discharge Dictation was produced using [employer] dictation software. please excuse any grammatical, word or spelling errors. Time with Patient: Less than 30
[2024-02-24 16:04] LABS: Glucose,Whole Blood 140 mg/dL (70-110)
[2024-02-24] MEDS: FUROSEMIDE 10 MG/ML 4 ML VIAL IV STA (18:07)
[2024-02-24 18:09] VITALS: BP 132/51; PULSE 62; RESP 18; TEMP 98.3
== END 2024-02-24 18:15 | DRG 871 ==
LOC: EC 07:26 → 3SCARD 10:23
PROVIDERS: ADMIT Family Medicine; ATTEND Family Medicine
PROC: 30233N1 Transfusion of Nonautologous Red Blood Cells into Peripheral Vein, Percutaneous Approach (ICD-10-PCS; principal; 2024-02-24 12:30)
PROC: 05HF33Z Insertion of Infusion Device into Left Cephalic Vein, Percutaneous Approach (ICD-10-PCS; 2024-02-24 12:30)
DX: A40.0 Sepsis due to streptococcus, group A (principal); I21.4 Non-ST elevation (NSTEMI) myocardial infarction; I50.33 Acute on chronic diastolic (congestive) heart failure; J96.21 Acute and chronic respiratory failure with hypoxia; J96.22 Acute and chronic respiratory failure with hypercapnia; N17.0 Acute kidney failure with tubular necrosis; E66.2 Morbid (severe) obesity with alveolar hypoventilation; E87.3 Alkalosis; G93.40 Encephalopathy, unspecified; I13.0 Hypertensive heart and chronic kidney disease with heart failure and stage 1 through stage 4 chronic kidney disease, or unspecified chronic kidney disease; L03.116 Cellulitis of left lower limb; N39.0 Urinary tract infection, site not specified; D50.9 Iron deficiency anemia, unspecified; E03.9 Hypothyroidism, unspecified; E11.22 Type 2 diabetes mellitus with diabetic chronic kidney disease; I27.81 Cor pulmonale (chronic); E78.00 Pure hypercholesterolemia, unspecified; F32.A Depression, unspecified; E11.40 Type 2 diabetes mellitus with diabetic neuropathy, unspecified; I27.29 Other secondary pulmonary hypertension; Z99.81 Dependence on supplemental oxygen; J44.9 Chronic obstructive pulmonary disease, unspecified; I08.3 Combined rheumatic disorders of mitral, aortic and tricuspid valves; N18.32 Chronic kidney disease, stage 3b; Z79.4 Long term (current) use of insulin; H35.30 Unspecified macular degeneration; I25.10 Atherosclerotic heart disease of native coronary artery without angina pectoris; M10.9 Gout, unspecified; M19.90 Unspecified osteoarthritis, unspecified site; T50.2X5A Adverse effect of carbonic-anhydrase inhibitors, benzothiadiazides and other diuretics, initial encounter; I45.10 Unspecified right bundle-branch block; I48.0 Paroxysmal atrial fibrillation; Z79.890 Hormone replacement therapy; Z79.899 Other long term (current) drug therapy; Z87.11 Personal history of peptic ulcer disease; Z86.010 Personal history of colon polyps; Z95.1 Presence of aortocoronary bypass graft; Z20.822 Contact with and (suspected) exposure to COVID-19; Z98.84 Bariatric surgery status; Z86.16 Personal history of COVID-19; Z88.6 Allergy status to analgesic agent; Z88.0 Allergy status to penicillin
CPT/HCPCS: 36410; 36415; 71045; 76937; 80048; 80053; 81001; 81003; 82803; 83605; 83880; 84145; 84484; 85025; 85027; 85610; 85652; 85730; 86140; 86850; 86900; 86901; 86920; 87040; 87077; 87186; 87636; 93005; 93308; 94660; 94760; 96365; 96366; 96367; 99291

== ENCOUNTER 2024-03-01 10:33 | Emergency (ER) | payer MEDICARE, OTHER ==
[2024-03-01 10:51] VITALS: TEMP 98.5
[2024-03-01 11:30] LABS: Anisocytosis Slight; Basophils % (A) 0 %; Eosinophils # (A) 0.1 k/uL (0-0.7); Eosinophils % (A) 0 %; HCT 25.8 % (34.0-46.0); Hypochromasia Marked; Lymphocytes # (A) 0.4 k/uL (1.0-4.8); Lymphocytes % (A) 3 %; MCH 27.8 pg (25.0-35.0); MCHC 31.2 g/dL (31.0-37.0); Mean Platelet Volume 8.1; Monocytes # (A) 0.5 k/uL (0-1.0); Monocytes % (A) 4 %; Neutrophils # (A) 11.1 k/uL (1.3-7.7); Neutrophils % (A) 92 %; RDW 16.6 % (11.5-15.5); WBC 12.1 k/uL (3.8-10.6)
[2024-03-01 11:32] LABS: Platelet Count 223 k/uL (150-450)
[2024-03-01 11:34] LABS: INR 1.3 (<1.2); Partial Thromboplastin Time 23.8 sec (22.0-30.0); Prothrombin Time 13.4 sec (10.0-12.5)
[2024-03-01 11:50] LABS: ALT 10 U/L (4-34); AST 39 U/L (14-36); African American GFR (CKD) 61 (>60 ml/min/1.73 sqM); Albumin 2.9 g/dL (3.5-5.0); Alkaline Phosphatase 100 U/L (38-126); Anion Gap 5 mmol/L; Blood Urea Nitrogen 40 mg/dL (7-17); Calcium 9.1 mg/dL (8.4-10.2); Carbon Dioxide 31 mmol/L (22-30); Chloride 106 mmol/L (98-107); Glucose 127 mg/dL (74-99); Lipase 32 U/L (23-300); Non-African American GFR(CKD) 53 (>60 ml/min/1.73 sqM); Potassium 4.6 mmol/L (3.5-5.1); Sodium 142 mmol/L (137-145); Total Bilirubin 0.6 mg/dL (0.2-1.3); Total Protein 6.5 g/dL (6.3-8.2)
--- NOTE | 2024-03-01 11:52 | XR ---
EXAMINATION TYPE: XR chest 2V DATE OF EXAM: 03/01/2024 COMPARISON: 02/18/2024 HISTORY: Shortness of breath TECHNIQUE: Frontal and lateral views of the chest are obtained. FINDINGS: Scattered senescent parenchymal changes noted. Hyperinflation compatible with COPD. Patchy perihilar infiltrates noted. Correlate for pneumonia. Infiltrate of other etiology not exclude d including pulmonary edema. Heart size is stable. Mediastinal structures are stable and grossly unremarkable. No evidence for hilar prominence. Degenerative changes dorsal spine. IMPRESSION: 1. Patchy perihilar infiltrates noted. Correlate for pneumonia. Infiltrate of other etiology not excl uded including pulmonary edema.
[2024-03-01 11:55] LABS: NT-Pro-B-Type Natriuretic Pept 14900 pg/mL
[2024-03-01] MEDS: NITROGLYCERIN OINT 1 INCH/GM PACKET TOPICAL SCH (11:58)
[2024-03-01] MEDS ORDERED: HEPARIN SODIUM 1,000 UN/ML (10ML VL) IV PRN (12:16)
[2024-03-01] MEDS: FUROSEMIDE 10 MG/ML 4 ML VIAL IV STA (12:33)
[2024-03-01] MEDS: HEPARIN SODIUM 1,000 UN/ML (10ML VL) IV ONE (12:41)
[2024-03-01] MEDS: HEPARIN SOD,PORK IN 0.45% NACL 25,000 UNIT in 0.45% NACL 1 250ML.BAG IV SCH (12:42)
[2024-03-01 12:54] LABS: Appearance,Urine Cloudy (Clear); Bilirubin,Urine Negative (Negative); Blood,Urine Moderate (Negative); Budding Yeast,Urine Many /hpf; Color,Urine Colorless; Glucose,Urine (UA) Negative (Negative); Hyaline Casts,Urine 5 /lpf (0-2); Ketones,Urine Negative (Negative); Leukocyte Esterase,Urine Large (Negative); Mucus,Urine Rare /hpf; Nitrite,Urine Negative (Negative); Protein,Urine Trace (Negative); RBC,Urine 2 /hpf (0-5); Specific Gravity,Urine 1.009 (1.001-1.035); Squamous Epithelial Cell,Urine 1 /hpf (0-4); Urobilinogen,Urine <2.0 mg/dL (<2.0); WBC,Urine 28 /hpf (0-5)
[2024-03-01] MEDS: PANTOPRAZOLE 40 MG/10 ML VIAL IVP SCH (13:01)
[2024-03-01] MEDS: MAG HYDROX/AL HYDROX/SIMETH 30 ML, HYOSCYAMINE ELIXIR 10 ML, LIDOCAINE VISCOUS 2% 10 ML PO STA (13:05)
--- NOTE | 2024-03-01 14:07 | ED ---
General Adult HPI - General Source: patient, RN notes reviewed, old records reviewed Mode of arrival: EMS <Jhonatan Min - Last Filed: 03/01/24 14:50> <Aure Ramos - Last Filed: 04/01/24 21:26> - General Chief complaint: Chest Pain Stated complaint: chest pain Time Seen by Provider: 03/01/24 10:40 - History of Present Illness Initial comments: Patient is a 74-year-old female presents emergency department complaining of c hest pain. Has a history of CHF, atrial fibrillation, CAD, hypertension, hyperlipidemia. Is well-known to our facility. States she began experiencing some chest pressure and some acid reflux-like symptoms yesterday. Progressed to more chest pain this morning. Was given an acids but this did not help her pain. Called EMS for evaluation. Patient is currently nearly pain-free after receiving nitroglycerin tablet from EMS. Patient also received a dose of 324 mg of aspirin from EMS. Has no other acute complaints this time. Denies any worsening shortness of breath, lower extremity edema. Presents for further evaluation. (Jhonatan Min) - Related Data Home Medications Medication Instructions Recorded Confirmed Atorvastatin [Lipitor] 40 mg PO HS 08/10/16 03/01/24 Isosorbide Mononitrate [Isosorbide 30 mg PO DAILY 08/10/16 03/01/24 Mononitrate ER] Mirtazapine [Remeron] 15 mg PO HS 04/12/22 03/01/24 Acetaminophen Tab [Tylenol] 650 mg PO Q6H PRN 05/08/22 03/01/24 Levothyroxine Sodium [Synthroid] 50 mcg PO DAILY 12/17/22 03/01/24 Sertraline [Zoloft] 100 mg PO BID 12/17/22 03/01/24 INSULIN ASPART (NovoLOG) [NovoLOG 20 unit SQ BID 01/30/24 03/01/24 (formulary)] Insulin Glargine,Hum.rec.anlog 14 units SQ BID 01/30/24 03/01/24 [[place] Solostar] Pantoprazole [Protonix] 40 mg PO DAILY 01/30/24 03/01/24 Furosemide [Lasix] 40 mg PO DAILY 03/01/24 03/01/24 Gabapentin [Neurontin] 200 mg PO BID@0800,199903/01/24 03/01/24 Healthshake 1 dose PO BID 03/01/24 03/01/24 Ipratropium-Albuterol Nebulize 3 ml INHALATION RT-Q6H PRN 03/01/24 03/01/24 [Duoneb 0.5 mg-3 mg/3 ml Soln] Naloxone HCl 4 mg NASAL ONCE PRN 03/01/24 03/01/24 Potassium Chloride ER [K-Dur 20] 20 meq PO DAILY 03/01/24 03/01/24 carvediloL [Coreg] 3.125 mg PO BID 03/01/24 03/01/24 guaiFENesin [guaiFENesin ER] 600 mg PO BID@0800,199903/01/24 03/01/24 oxyBUTYnin chloride [oxyBUTYnin 5 mg PO BID@0800,159903/01/24 03/01/24 chloride ER] predniSONE [Deltasone] 40 mg PO DAILY 03/01/24 03/01/24 Previous Rx's Medication Instructions Recorded Aspirin 81 mg PO DAILY tab 02/23/24 Clopidogrel [Plavix] 75 mg PO DAILY tab 02/23/24 HYDROcodone/APAP 10-325MG [[place] 1 tab PO Q8H PRN #9 tab 02/23/24 10-325] ceFAZolin [Kefzol] 2 gm IVP Q12HR #20 each 02/24/24 Allergies Allergy/AdvReac Type Severity Reaction Status Date / Time ibuprofen [From Motrin] Allergy Rash/Hives Verified 03/01/24 11:46 Penicillins Allergy Anaphylaxis Verified 03/01/24 11:46 Review of Systems ROS Other: All systems not noted in ROS Statement are negative. <Jhonatan Min - Last Filed: 03/01/24 14:50> ROS Other: All systems not noted in ROS Statement are negative. <Aure Ramos - Last Filed: 04/01/24 21:26> ROS Statement: Those systems with pertinent positive or pertinent negative responses have been documented in the HPI. Review of Systems: CONST: Denies fever EYES: Denies blurry vision ENT: Denies nasal congestion C/V: Endorses chest pain RESP: Denies shortness of breath GI: Denies abdominal pain : Denies dysuria SKIN: Denies rash. MSK: Denies joint pain. NEURO: Denies headache (Jhonatan Min) Past Medical History Past Medical History: Atrial Fibrillation, Coronary Artery Disease (CAD), COPD, Diabetes Mellitus, Eye Disorder, Hyperlipidemia, Hypertension, Osteoarthritis (OA), Pneumonia, Renal Disease, Sleep Apnea/CPAP/BIPAP, Thyroid Disorder Additional Past Medical History / Comment(s): Pt recently admitted to [facility] on 05/08/22 with anemia/had EGD and colonoscopy which showed nonbleeding stomach ulcer/diverticular disease and colon polyp, pt received blood transfusions. Other hx: 02/12/22 covid/pneumonia/sepsis, other past pneumonias, acute hypoxic respiratory failure/now on home oxygen ATC, new A fib with RVR, IDDM type II, neuropathy bilateral feet, L eye retinal bleed/lasik eye surgery, R eye ca taract, bilateral eye macular degeneration/gets injections/poor vision, CKD stage III, anemia, UTI/sepsis, bilateral leg lymphedema, FLORES/does not have cpap machine at this time, diverticulitis, gout, chronic back pain, rheumatic fever, hypothyroid. History of Any Multi-Drug Resistant Organisms: ESBL Date of last positivie culture/infection: 05/22/22 ESBL Klebsiella MDRO Source:: Urine Past Surgical History: Bariatric Surgery, Section, Cholecystectomy, Coronary Bypass/CABG, Heart Catheterization, Hysterectomy, Orthopedic Surgery, Tonsillectomy Additional Past Surgical History / Comment(s): EGD, colonoscopy, 2 vessel CABG in 1996, bilateral carpal tunnel release, lap band, L eye laser surgery, Past Anesthesia/Blood Transfusion Reactions: No Reported Reaction Past Psychological History: Depression Smoking Status: Never smoker Past Alcohol Use History: None Reported Past Drug Use History: None Reported - Past Family History Father History Unknown: Yes Family Medical History: Cancer, Coronary Artery Disease (CAD), Diabetes Mellitus Additional Family Medical History / Comment(s): Prostate cancer Mother History Unknown: Yes Family Medical History: Cancer Additional Family Medical History / Comment(s): Bone cancer. <Jhonatan Min - Last Filed: 03/01/24 14:50> General Exam <Jhonatan Min - Last Filed: 03/01/24 14:50> - General Exam Comments Initial Comments: General: Appears in no acute distress. HEAD: Normal with no signs of head trauma. EYES: PERRLA, EOMI, conjunctiva normal, no discharge. ENT: Hearing grossly intact, normal oropharynx. RESPIRATORY: Clear breath sounds bilaterally. No wheezes, rales, or rhonchi. No significant hypoxia on baseline nasal cannula oxygen. C/V: Regular rate and rhythm. S1 and S2 auscultated, chronic lower extremity edema., peripheral pulses 2+ and intact throughout ABD: Abd is soft, nontender, nondistended EXT: Normal range of motion, no obvious deformity SKIN: No rashes or lesions observed on exposed skin. NEURO: Alert and oriented x 4. Cranial nerves II-XII intact. No focal sensory or strength deficits. (Jhonatan Min) Course Vital Signs 03/01/24 03/01/24 10:48 18:57 Temperature 98.5 F Pulse Rate 64 87 Respiratory 20 16 Rate Blood Pressure 142/55 116/87 O2 Sat by Pulse 97 98 Oximetry Medical Decision Making - Lab Data Result diagrams: 03/01/24 11:15 03/01/24 11:15 - EKG Data -: EKG Interpreted by Nc <Jhonatan Min - Last Filed: 03/01/24 14:50> - Lab Data Result diagrams: 03/01/24 11:15 03/01/24 11:15 <Aure Ramos - Last Filed: 04/01/24 21:26> - Medical Decision Making Was pt. sent in by a medical professional or institution (ELE Mahoney, REMOTE COMPUTER TERMINAL OPERATOR, urgent care, hospital, or [facility]...) When possible be specific @ -Sent from [facility] for chest pain. Did you speak to anyone other than the patient for history (EMS, parent, family, police, friend...)? What history was obtained from this source @ -No Did you review nursing and triage notes (agree or disagree)? Why? @ -I reviewed and agree with nursing and triage notes Were old charts reviewed (outside hosp., previous admission, EMS record, old EKG, old radiological studies, urgent care reports/EKG's, [facility] records)? Report findings @ -Old charts reviewed including recent visit on February 19, 2024. Reviewed EKG from that time which showed no obvious acute ischemia or acute dynamic changes today. Differential Diagnosis (chest pain, altered mental status, abdominal pain women, abdominal pain men, vaginal bleeding, weakness, fever, dyspnea, syncope, headache, dizziness, GI bleed, back pain, seizure, CVA, palpatations, mental health, musculoskeletal)? @ -MDM differential chest EKG interpreted by me (3pts min.). @ -As above X-rays interpreted by me (1pt min.). @ -Chest x-ray reveals findings consistent with CHF which is chronic for the p atient. CT interpreted by me (1pt min.). @ -None done U/S interpreted by me (1pt. min.). @ -None done What testing was considered but not performed or refused? (CT, X-rays, U/S, labs)? Why? @ -None What meds were considered but not given or refused? Why? @ -None Did you discuss the management of the patient with other professionals (professionals i.e. , PA, REMOTE COMPUTER TERMINAL OPERATOR, lab, RT, psych nurse, social sciences professor, checkroom attendant, teacher, consumer safety officer, shoe parts caser)? Give summary @ -Discussed with Dr. Jama, the admitting physician. I believe patient should be admitted for the elevated troponin as well as CHF. Patient was recently admitted here for similar complaints. Dr. Jama asked that we fir st obtaining a second troponin as well as administered a GI cocktail for the patient. I will notify him with the results of the second troponin prior to admission or discharge. Was smoking cessation discussed for >3mins.? @ -No Was critical care preformed (if so, how long)? @ -No Were there social determinants of health that impacted care today? How? (Homelessness, low income, unemployed, alcoholism, drug addiction, transportation, low edu. Level, literacy, decrease access to med. care, long term, rehab)? @ -No Was there de-escalation of care discussed even if they declined (Discuss DNR or withdrawal of care, Hospice)? DNR status @ -No What co-morbidities impacted this encounter? (DM, HTN, Smoking, COPD, CAD, Cancer, CVA, ARF, Chemo, Hep., AIDS, mental health diagnosis, sleep apnea, morbid obesity)? @ -CHF, chronic hypoxic respiratory failure, CAD Was patient admitted / discharged? Hospital course, mention meds given and route, prescriptions, significant lab abnormalities, going to OR and other pertinent info. @ -Patient presents with chest pain. Resolved with nitro on the way to the hospital. Vital signs within acceptable limits. Patient also already received a dose of 324 mg of aspirin. Nitropaste will be placed for the patient. We will obtain cardiopulmonary workup. She was in agreement this plan. Vital signs currently within acceptable limits on her baseline nasal cannula oxygen. EKG shows no signs of acute ischemia. Chest x-ray shows some mild pulmonary vascular congestion. Labs remarkable for chronic anemia, nonspecific elevated leukocytosis of 12. Troponin is slightly elevated 0.065 as well as an elevated BNP of 14,900. At this time, I will start the patient on a heparin drip. She will receive an empiric dose of Lasix and started on twice daily IV Lasix. Diagnosis is CHF. Troponin is elevated as well. I spoke with the admitting physician who present at bedside to evaluate the patient. He asked that we repeat the troponin as he believes it is likely a chronic elevation. Wants to see the trend of it before excepting admission. We will continue with treatment for this time. We will obtain a 3-hour troponin. Patient in agreement this plan. At this time is in my shift. Patient signed out to Dr. Ramos pending results of repeat troponin. And reevaluation with speaking with Dr. Jama. Undiagnosed new problem with uncertain prognosis? @ -No Drug Therapy requiring intensive monitoring for toxicity (Heparin, Nitro, Insulin, Cardizem)? @ -No Were any procedures done? @ -No (Jhonatan Min) Was patient admitted / discharged? Hospital course, mention meds given and route, prescriptions, significant lab abnormalities, going to OR and other pertinent info. @ -Patient signed out to me pending repeat troponin. Troponin is about the same. Called and spoke with Dr. Jama who feels that the patient is stable for discharge back to her facility and he will follow-up outpatient on the patient Undiagnosed new problem with uncertain prognosis? @ -No Drug Therapy requiring intensive monitoring for toxicity (Heparin, Nitro, Insulin, Cardizem)? @ -No Were any procedures done? @ -No Diagnosis/symptom? @ -Acute chest pain Acute, or Chronic, or Acute on Chronic? @ -Acute Uncomplicated (without systemic symptoms) or Complicated (systemic symptoms)? @ -Complicated Side effects of treatment? @ -No Exacerbation, Progression, or Severe Exacerbation? @ -No Poses a threat to life or bodily function? How? (Chest pain, [place], VA, pneumonia, PE, COPD, DKA, ARF, appy, cholecystitis, CVA, Diverticulitis, Homicidal, Suicidal, threat to staff... and all critical care pts) @ -No (Aure Ramos) - Lab Data Lab Results 03/01/24 03/01/24 03/01/24 Range/Units 11:15 11:15 11:15 WBC 12.1 H (3.8-10.6) k/uL RBC 2.90 L (3.80-5.40) m/uL Hgb 8.0 L (11.4-16.0) gm/dL Hct 25.8 L (34.0-46.0) % MCV 89.0 (80.0-100.0) fL MCH 27.8 (25.0-35.0) pg MCHC 31.2 (31.0-37.0) g/dL RDW 16.6 H (11.5-15.5) % Plt Count 223 D (150-450) k/uL MPV 8.1 Neutrophils % 92 % Lymphocytes % 3 % Monocytes % 4 % Eosinophils % 0 % Basophils % 0 % Neutrophils # 11.1 H (1.3-7.7) k/uL Lymphocytes # 0.4 L (1.0-4.8) k/uL Monocytes # 0.5 (0-1.0) k/uL Eosinophils # 0.1 (0-0.7) k/uL Basophils # 0.0 (0-0.2) k/uL Hypochromasia Marked Anisocytosis Slight PT 13.4 H (10.0-12.5) sec INR 1.3 H (<1.2) APTT 23.8 (22.0-30.0) sec Sodium 142 (137-145) mmol/L Potassium 4.6 (3.5-5.1) mmol/L Chloride 106 (98-107) mmol/L Carbon Dioxide 31 H (22-30) mmol/L Anion Gap 5 mmol/L BUN 40 H (7-17) mg/dL Creatinine 1.04 (0.52-1.04) mg/dL Est GFR (CKD-EPI)AfAm 61 (>60 ml/min/1.73 sqM) Est GFR (CKD-EPI)NonAf 53 (>60 ml/min/1.73 sqM) Glucose 127 H (74-99) mg/dL Calcium 9.1 (8.4-10.2) mg/dL Magnesium 2.0 (1.6-2.3) mg/dL Total Bilirubin 0.6 (0.2-1.3) mg/dL AST 39 H (14-36) U/L ALT 10 (4-34) U/L Alkaline Phosphatase 100 (38-126) U/L Troponin I (0.000-0.034) ng/mL NT-Pro-B Natriuret Pep 15200 pg/mL Total Protein 6.5 (6.3-8.2) g/dL Albumin 2.9 L (3.5-5.0) g/dL Lipase 32 (23-300) U/L Urine Color Urine Appearance (Clear) Urine pH (5.0-8.0) Ur Specific [place] (1.001-1.035) Urine Protein (Negative) Urine Glucose (UA) (Negative) Urine Ketones (Negative) Urine Blood (Negative) Urine Nitrite (Negative) Urine Bilirubin (Negative) Urine Urobilinogen (<2.0) mg/dL Ur Leukocyte Esterase (Negative) Urine RBC (0-5) /hpf Urine WBC (0-5) /hpf Ur Squamous Epith Cells (0-4) /hpf Hyaline Casts (0-2) /lpf Urine Mucus (None) /hpf Urine Yeast (Budding) (None) /hpf Influenza Type A (PCR) (Not Detectd) Influenza Type B (PCR) (Not Detectd) RSV (PCR) (Not Detectd) SARS-CoV-2 (PCR) (Not Detectd) 03/01/24 03/01/24 03/01/24 Range/Units 11:15 11:15 11:15 WBC (3.8-10.6) k/uL RBC (3.80-5.40) m/uL Hgb (11.4-16.0) gm/dL Hct (34.0-46.0) % MCV (80.0-100.0) fL MCH (25.0-35.0) pg MCHC (31.0-37.0) g/dL RDW (11.5-15.5) % Plt Count (150-450) k/uL MPV Neutrophils % % Lymphocytes % % Monocytes % % Eosinophils % % Basophils % % Neutrophils # (1.3-7.7) k/uL Lymphocytes # (1.0-4.8) k/uL Monocytes # (0-1.0) k/uL Eosinophils # (0-0.7) k/uL Basophils # (0-0.2) k/uL Hypochromasia Anisocytosis PT (10.0-12.5) sec INR (<1.2) APTT (22.0-30.0) sec Sodium (137-145) mmol/L Potassium (3.5-5.1) mmol/L Chloride (98-107) mmol/L Carbon Dioxide (22-30) mmol/L Anion Gap mmol/L BUN (7-17) mg/dL Creatinine (0.52-1.04) mg/dL Est GFR (CKD-EPI)AfAm (>60 ml/min/1.73 sqM) Est GFR (CKD-EPI)NonAf (>60 ml/min/1.73 sqM) Glucose (74-99) mg/dL Calcium (8.4-10.2) mg/dL Magnesium (1.6-2.3) mg/dL Total Bilirubin (0.2-1.3) mg/dL AST (14-36) U/L ALT (4-34) U/L Alkaline Phosphatase (38-126) U/L Troponin I 0.065 H* (0.000-0.034) ng/mL NT-Pro-B Natriuret Pep pg/mL Total Protein (6.3-8.2) g/dL Albumin (3.5-5.0) g/dL Lipase (23-300) U/L Urine Color Colorless Urine Appearance Cloudy H (Clear) Urine pH 5.0 (5.0-8.0) Ur Specific [place] 1.009 (1.001-1.035) Urine Protein Trace H (Negative) Urine Glucose (UA) Negative (Negative) Urine Ketones Negative (Negative) Urine Blood Moderate H (Negative) Urine Nitrite Negative (Negative) Urine Bilirubin Negative (Negative) Urine Urobilinogen <2.0 (<2.0) mg/dL Ur Leukocyte Esterase Large H (Negative) Urine RBC 2 (0-5) /hpf Urine WBC 28 H (0-5) /hpf Ur Squamous Epith Cells 1 (0-4) /hpf Hyaline Casts 5 H (0-2) /lpf Urine Mucus Rare H (None) /hpf Urine Yeast (Budding) Many H (None) /hpf Influenza Type A (PCR) Not Detected (Not Detectd) Influenza Type B (PCR) Not Detected (Not Detectd) RSV (PCR) Not Detected (Not Detectd) SARS-CoV-2 (PCR) Not Detected (Not Detectd) 03/01/24 Range/Units 14:34 WBC (3.8-10.6) k/uL RBC (3.80-5.40) m/uL Hgb (11.4-16.0) gm/dL Hct (34.0-46.0) % MCV (80.0-100.0) fL MCH (25.0-35.0) pg MCHC (31.0-37.0) g/dL RDW (11.5-15.5) % Plt Count (150-450) k/uL MPV Neutrophils % % Lymphocytes % % Monocytes % % Eosinophils % % Basophils % % Neutrophils # (1.3-7.7) k/uL Lymphocytes # (1.0-4.8) k/uL Monocytes # (0-1.0) k/uL Eosinophils # (0-0.7) k/uL Basophils # (0-0.2) k/uL Hypochromasia Anisocytosis PT (10.0-12.5) sec INR (<1.2) APTT (22.0-30.0) sec Sodium (137-145) mmol/L Potassium (3.5-5.1) mmol/L Chloride (98-107) mmol/L Carbon Dioxide (22-30) mmol/L Anion Gap mmol/L BUN (7-17) mg/dL Creatinine (0.52-1.04) mg/dL Est GFR (CKD-EPI)AfAm (>60 ml/min/1.73 sqM) Est GFR (CKD-EPI)NonAf (>60 ml/min/1.73 sqM) Glucose (74-99) mg/dL Calcium (8.4-10.2) mg/dL Magnesium (1.6-2.3) mg/dL Total Bilirubin (0.2-1.3) mg/dL AST (14-36) U/L ALT (4-34) U/L Alkaline Phosphatase (38-126) U/L Troponin I 0.064 H* (0.000-0.034) ng/mL NT-Pro-B Natriuret Pep pg/mL Total Protein (6.3-8.2) g/dL Albumin (3.5-5.0) g/dL Lipase (23-300) U/L Urine Color Urine Appearance (Clear) Urine pH (5.0-8.0) Ur Specific [place] (1.001-1.035) Urine Protein (Negative) Urine Glucose (UA) (Negative) Urine Ketones (Negative) Urine Blood (Negative) Urine Nitrite (Negative) Urine Bilirubin (Negative) Urine Urobilinogen (<2.0) mg/dL Ur Leukocyte Esterase (Negative) Urine RBC (0-5) /hpf Urine WBC (0-5) /hpf Ur Squamous Epith Cells (0-4) /hpf Hyaline Casts (0-2) /lpf Urine Mucus (None) /hpf Urine Yeast (Budding) (None) /hpf Influenza Type A (PCR) (Not Detectd) Influenza Type B (PCR) (Not Detectd) RSV (PCR) (Not Detectd) SARS-CoV-2 (PCR) (Not Detectd) - EKG Data EKG Comments: 12-lead Electrocardiogram Interpretation Note EKG was reviewed and interpreted by myself. 12-lead ECG performed at 1106 is int erpreted by me as revealing normal sinus rhythm with right axis deviation right bundle branch block at a rate of 62 bpm. ME interval is 194 ms, QRS duration is 187 ms, QTc is 491 ms. . [place] is normal. There were no ST or T wave abnormalities to suggest myocardial ischemia or injury. R wave progression across the precordium was satisfactory. By my interpretation this EKG is non- diagnostic for acute ischemia. Compared with EKG from February 19, 2024 with no significant change. (Jhonatan Min) Disposition <Jhonatan Min - Last Filed: 03/01/24 14:50> Is patient prescribed a controlled substance at d/c from ED?: No Time of Disposition: 15:47 <Aure Ramos - Last Filed: 04/01/24 21:26> Clinical Impression: Chest pain Disposition: HOME SELF-CARE Condition: Stable Instructions (If sedation given, give patient instructions): Chest Pain (ED) Additional Instructions: Dr. Cruz and Dr. Jama will follow up with you in the outpatient setting for your symptoms. Referrals: Marcelino Cruz Jr, DO [Primary Care Provider] - 1-2 days
[2024-03-01 18:58] VITALS: BP 116/87; PULSE 87; RESP 16
== END 2024-03-01 18:58 | disposition home or self-care (01) ==
LOC: EC 10:33
DX: R07.9 Chest pain, unspecified (principal); E11.36 Type 2 diabetes mellitus with diabetic cataract; E11.22 Type 2 diabetes mellitus with diabetic chronic kidney disease; I13.0 Hypertensive heart and chronic kidney disease with heart failure and stage 1 through stage 4 chronic kidney disease, or unspecified chronic kidney disease; I48.91 Unspecified atrial fibrillation; I25.10 Atherosclerotic heart disease of native coronary artery without angina pectoris; I50.9 Heart failure, unspecified; N18.30 Chronic kidney disease, stage 3 unspecified; Z79.4 Long term (current) use of insulin; Z79.899 Other long term (current) drug therapy; Z86.16 Personal history of COVID-19; Z88.0 Allergy status to penicillin; Z88.6 Allergy status to analgesic agent; Z90.49 Acquired absence of other specified parts of digestive tract; Z95.1 Presence of aortocoronary bypass graft; Z11.52 Encounter for screening for COVID-19
CPT/HCPCS: 36415; 93005; 83880; 80053; 83690; 83735; 84484; 85025; 85610; 85730; 81001; 87636; 71046; 99285; 96365; 96366 ×5; 96375 ×2; J1940; J1644 ×2; J2470

== ENCOUNTER → 2024-03-18 | Outpatient (CLI) | payer MEDICARE, OTHER | END | disposition home or self-care (01) | LOC: LABPRL 09:30 | PROVIDERS: ATTEND Family Medicine | DX: J96.20 Acute and chronic respiratory failure, unspecified whether with hypoxia or hypercapnia (principal) | CPT/HCPCS: 87077; 87086; 87186 ==

== ENCOUNTER 2024-04-02 23:57 | Observation (INO) | payer MEDICARE, OTHER ==
[2024-04-03] MEDS: HYDROcodone/APAP 10-325MG 1 EACH TAB PO ONE (00:31)
--- NOTE | 2024-04-03 00:37 | ED ---
General Adult HPI - General Chief complaint: Extremity Injury, Lower Stated complaint: Leg pain and weakness Time Seen by Provider: 04/03/24 00:10 Source: patient, EMS, RN notes reviewed, old records reviewed Mode of arrival: EMS Limitations: physical limitation - History of Present Illness Initial comments: Patient is a 74-year-old female with chronic debility, cardiac history consistent with CAD, A-fib, COPD, diabetes, hypertension. Was recently discharged from her nursing facility and she believes she was not ready to. Has been having difficult time walking since being home. Complaining of somewhat chronic bilateral knee pain which was present prior to discharge from her nursing facility home. Feels like she cannot take care of herself at home and does not have sufficient care. Is looking to be reevaluated for possibly placem ent. Has no other acute complaints at this time. Has chronic hypoxic respiratory failure and is on her baseline 3 to 4 L nasal cannula with no change in vitals. Denies any worsening lower extremity swelling just pain in the bilateral knees which is chronic as well. Denies shortness of breath, chest pain, fevers, chills, cough, abdominal pain. Presents for further evaluation at this time.Denies any acute traumatic injury. - Related Data Home Medications Medication Instructions Recorded Confirmed Atorvastatin [Lipitor] 40 mg PO HS 08/10/16 03/01/24 Isosorbide Mononitrate [Isosorbide 30 mg PO DAILY 08/10/16 03/01/24 Mononitrate ER] Mirtazapine [Remeron] 15 mg PO HS 04/12/22 03/01/24 Acetaminophen Tab [Tylenol] 650 mg PO Q6H PRN 05/08/22 03/01/24 Levothyroxine Sodium [Synthroid] 50 mcg PO DAILY 12/17/22 03/01/24 Sertraline [Zoloft] 100 mg PO BID 12/17/22 03/01/24 INSULIN ASPART (NovoLOG) [NovoLOG 20 unit SQ BID 01/30/24 03/01/24 (formulary)] Insulin Glargine,Hum.rec.anlog 14 units SQ BID 01/30/24 03/01/24 [Zulema Ta] Pantoprazole [Protonix] 40 mg PO DAILY 01/30/24 03/01/24 Furosemide [Lasix] 40 mg PO DAILY 03/01/24 03/01/24 Gabapentin [Neurontin] 200 mg PO BID@0800,199903/01/24 03/01/24 Healthshake 1 dose PO BID 03/01/24 03/01/24 Ipratropium-Albuterol Nebulize 3 ml INHALATION RT-Q6H PRN 03/01/24 03/01/24 [Duoneb 0.5 mg-3 mg/3 ml Soln] Naloxone HCl 4 mg NASAL ONCE PRN 03/01/24 03/01/24 Potassium Chloride ER [K-Dur 20] 20 meq PO DAILY 03/01/24 03/01/24 carvediloL [Coreg] 3.125 mg PO BID 03/01/24 03/01/24 guaiFENesin [guaiFENesin ER] 600 mg PO BID@0800,199903/01/24 03/01/24 oxyBUTYnin chloride [oxyBUTYnin 5 mg PO BID@0800,159903/01/24 03/01/24 chloride ER] predniSONE [Deltasone] 40 mg PO DAILY 03/01/24 03/01/24 Previous Rx's Medication Instructions Recorded Aspirin 81 mg PO DAILY tab 02/23/24 Clopidogrel [Plavix] 75 mg PO DAILY tab 02/23/24 HYDROcodone/APAP 10-325MG [[place] 1 tab PO Q8H PRN #9 tab 02/23/24 10-325] ceFAZolin [Kefzol] 2 gm IVP Q12HR #20 each 02/24/24 Allergies Allergy/AdvReac Type Severity Reaction Status Date / Time ibuprofen [From Motrin] Allergy Rash/Hives Verified 04/03/24 00:05 Penicillins Allergy Anaphylaxis Verified 04/03/24 00:05 Review of Systems ROS Statement: Those systems with pertinent positive or pertinent negative responses have been documented in the HPI. Review of Systems: CONST: Denies fever EYES: Denies blurry vision ENT: Denies nasal congestion C/V: Denies Chest pain RESP: Denies shortness of breath GI: Denies abdominal pain : Denies dysuria SKIN: Denies rash. MSK: Endorses bilateral knee pain NEURO: Denies headache ROS Other: All systems not noted in ROS Statement are negative. Past Medical History Past Medical History: Atrial Fibrillation, Coronary Artery Disease (CAD), COPD, Diabetes Mellitus, Eye Disorder, Hyperlipidemia, Hypertension, Osteoarthritis (OA), Pneumonia, Renal Disease, Sleep Apnea/CPAP/BIPAP, Thyroid Disorder Additional Past Medical History / Comment(s): Pt recently admitted to [facility] on 05/08/22 with anemia/had EGD and colonoscopy which showed nonbleeding stomach ulcer/diverticular disease and colon polyp, pt received blood transfusions. O ther hx: 02/12/22 covid/pneumonia/sepsis, other past pneumonias, acute hypoxic respiratory failure/now on home oxygen ATC, new A fib with RVR, IDDM type II, neuropathy bilateral feet, L eye retinal bleed/lasik eye surgery, R eye cataract, bilateral eye macular degeneration/gets injections/poor vision, CKD stage III, anemia, UTI/sepsis, bilateral leg lymphedema, FLORES/does not have cpap machine at this time, diverticulitis, gout, chronic back pain, rheumatic fever, hypothyroid. History of Any Multi-Drug Resistant Organisms: ESBL Date of last positivie culture/infection: 05/22/22 ESBL Klebsiella MDRO Source:: Urine Past Surgical History: Bariatric Surgery, Section, Cholecystectomy, Co ronary Bypass/CABG, Heart Catheterization, Hysterectomy, Orthopedic Surgery, Tonsillectomy Additional Past Surgical History / Comment(s): EGD, colonoscopy, 2 vessel CABG in 1996, bilateral carpal tunnel release, lap band, L eye laser surgery, Past Anesthesia/Blood Transfusion Reactions: No Reported Reaction Past Psychological History: Depression Smoking Status: Never smoker Past Alcohol Use History: None Reported Past Drug Use History: None Reported - Past Family History Father History Unknown: Yes Family Medical History: Cancer, Coronary Artery Disease (CAD), Diabetes Mellitus Additional Family Medical History / Comment(s): Prostate cancer Mother History Unknown: Yes Family Medical History: Cancer Additional Family Medical History / Comment(s): Bone cancer. General Exam - General Exam Comments Initial Comments: General: Obese, with what appears to be chronic debility and weakness. HEAD: Normal with no signs of head trauma. EYES: PERRLA, EOMI, conjunctiva normal, no discharge. ENT: Hearing grossly intact, normal oropharynx. RESPIRATORY: Clear breath sounds bilaterally. No wheezes, rales, or rhonchi. C/V: Regular rate and rhythm. S1 and S2 auscultated, peripheral pulses 2+ and intact throughout ABD: Abd is soft, nontender, nondistended EXT: Normal range of motion, no obvious deformity SKIN: No rashes or lesions observed on exposed skin. NEURO: Alert and oriented x 4. No focal deficits. Limitations: physical limitation Course Vital Signs 04/02/24 04/03/24 23:58 02:00 Temperature 98.0 F Pulse Rate 72 71 Respiratory 20 18 Rate Blood Pressure 149/54 125/48 O2 Sat by Pulse 96 95 Oximetry Medical Decision Making - Medical Decision Making Was pt. sent in by a medical professional or institution (ELE Mahoney, SENIOR MARKETING COORDINATOR, urgent care, hospital, or shelter...) When possible be specific @ -No Did you speak to anyone other than the patient for history (EMS, parent, family, police, friend...)? What history was obtained from this source @ -No Did you review nursing and triage notes (agree or disagree)? Why? @ -I reviewed and agree with nursing and triage notes Were old charts reviewed (outside hosp., previous admission, EMS record, old EKG, old radiological studies, urgent care reports/EKG's, shelter records)? Report findings @ -Old charts reviewed from January 2024. Compared EKG with no significant change today. Differential Diagnosis (chest pain, altered mental status, abdominal pain women, abdominal pain men, vaginal bleeding, weakness, fever, dyspnea, syncope, headache, dizziness, GI bleed, back pain, seizure, CVA, palpatations, mental health, musculoskeletal)? @ -Debility, seeking placement, chronic weakness. This list is not all inclusive. EKG interpreted by me (3pts min.). @ -As above X-rays interpreted by me (1pt min.). @ -Knee x-ray is negative for any obvious acute traumatic injury. Chronic degenerative changes present. CT interpreted by me (1pt min.). @ -None done U/S interpreted by me (1pt. min.). @ -None done What testing was considered but not performed or refused? (CT, X-rays, U/S, labs)? Why? @ -None What meds were considered but not given or refused? Why? @ -None Did you discuss the management of the patient with other professionals (prof essionals i.e. , ELE, SENIOR MARKETING COORDINATOR, lab, RT, psych nurse, social sciences professor, dosier operator, teacher, program officer, case monitor)? Give summary @ -Spoke with Dr. Jama, who accepted the admission. Was smoking cessation discussed for >3mins.? @ -No Was critical care preformed (if so, how long)? @ -No Were there social determinants of health that impacted care today? How? (Homelessness, low income, unemployed, alcoholism, drug addiction, transportation, low edu. Level, literacy, decrease access to med. care, senior living, rehab)? @ -No Was there de-escalation of care discussed even if they declined (Discuss DNR or withdrawal of care, Hospice)? DNR status @ -No What co-morbidities impacted this encounter? (DM, HTN, Smoking, COPD, CAD, Cancer, CVA, ARF, Chemo, Hep., AIDS, mental health diagnosis, sleep apnea, morbid obesity)? @ -None Was patient admitted / discharged? Hospital course, mention meds given and route, prescriptions, significant lab abnormalities, going to OR and other pertinent info. @ -Patient presents with chronic debility. Was recently discharged from her nursing facility and believes she requires placement again. Does not believe she has good care at home. Presents for further evaluation. Vitals are within acceptable limits. Has no acute distress other than chronic bilateral knee pain. We will obtain x-rays of the knees as well as basic labs with plan for admission for placement. She was in agreement this plan. She was given a [place] 10 tablet which is a typical medication for her. EKG shows no signs of acute ischemia. Laboratory studies showed a hemolyzed hyperkalemia which resolved on repeat with no hemolysis. Knee x-ray is unremarkable. At this time due to her debility and feeling unsafe being discharged home as she does not feel she has adequate care at home, I will admit the patient for evaluation for placement. I spoke with Dr. Jama who accepted the admission. Undiagnosed new problem with uncertain prognosis? @ -No Drug Therapy requiring intensive monitoring for toxicity (Heparin, Nitro, Insulin, Cardizem)? @ -No Were any procedures done? @ -No Diagnosis/symptom? @ -Debility, chronic knee pain Acute, or Chronic, or Acute on Chronic? @ -Acute on chronic Uncomplicated (without systemic symptoms) or Complicated (systemic symptoms)? @ -Complicated Side effects of treatment? @ -No Exacerbation, Progression, or Severe Exacerbation? @ -No Poses a threat to life or bodily function? How? (Chest pain, USA, GA, pneumonia, PE, COPD, DKA, ARF, appy, cholecystitis, CVA, Diverticulitis, Homicidal, Suicidal, threat to staff... and all critical care pts) @ -Potentially, can lead to falls which can result in injury - Lab Data Result diagrams: 04/03/24 00:19 04/03/24 02:02 Lab Results 04/03/24 04/03/24 04/03/24 Range/Units 00:19 00:19 02:02 WBC 5.6 (3.8-10.6) k/uL RBC 2.91 L (3.80-5.40) m/uL Hgb 8.2 L (11.4-16.0) gm/dL Hct 26.4 L (34.0-46.0) % MCV 90.8 (80.0-100.0) fL MCH 28.2 (25.0-35.0) pg MCHC 31.0 (31.0-37.0) g/dL RDW 18.0 H (11.5-15.5) % Plt Count 156 (150-450) k/uL MPV 8.8 Neutrophils % 77 % Lymphocytes % 11 % Monocytes % 8 % Eosinophils % 3 % Basophils % 0 % Neutrophils # 4.3 (1.3-7.7) k/uL Lymphocytes # 0.6 L (1.0-4.8) k/uL Monocytes # 0.5 (0-1.0) k/uL Eosinophils # 0.2 (0-0.7) k/uL Basophils # 0.0 (0-0.2) k/uL Hypochromasia Marked Anisocytosis Slight Sodium 135 L (137-145) mmol/L Potassium 5.6 H 4.6 (3.5-5.1) mmol/L Chloride 101 (98-107) mmol/L Carbon Dioxide 30 (22-30) mmol/L Anion Gap 4 mmol/L BUN 44 H (7-17) mg/dL Creatinine 1.60 H (0.52-1.04) mg/dL Est GFR (CKD-EPI)AfAm 36 (>60 ml/min/1.73 sqM) Est GFR (CKD-EPI)NonAf 31 (>60 ml/min/1.73 sqM) Glucose 230 H (74-99) mg/dL Calcium 8.9 (8.4-10.2) mg/dL - EKG Data -: EKG Interpreted by Me EKG Comments: 12-lead Electrocardiogram Interpretation Note EKG was reviewed and interpreted by myself. 12-lead ECG performed at 0026 is interpreted by me as revealing normal sinus rhythm with right bundle branch block at a rate of 72 beats per minute. Indeterminate axis. MS interval is 173 ms, QRS duration is 193 ms, QTc is 497 ms.. There were no ST or T wave abnormalities to suggest myocardial ischemia or injury. R wave progression across the precordium was satisfactory. By my interpretation this EKG is non- diagnostic for acute ischemia. Compared with EKG from January 2024 with no significant change. Disposition Clinical Impression: Debility, Chronic knee pain Disposition: ADMITTED IP TO THIS HOSP Condition: Stable Referrals: Marcelino Cruz Jr, [Primary Care Provider] - 1-2 days Time of Disposition: 02:40
[2024-04-03 00:47] LABS: Anisocytosis Slight; Basophils % (A) 0 %; Eosinophils # (A) 0.2 k/uL (0-0.7); Eosinophils % (A) 3 %; HCT 26.4 % (34.0-46.0); HGB 8.2 gm/dL (11.4-16.0); Hypochromasia Marked; Lymphocytes # (A) 0.6 k/uL (1.0-4.8); Lymphocytes % (A) 11 %; MCH 28.2 pg (25.0-35.0); MCV 90.8 fL (80.0-100.0); Mean Platelet Volume 8.8; Monocytes # (A) 0.5 k/uL (0-1.0); Monocytes % (A) 8 %; Neutrophils # (A) 4.3 k/uL (1.3-7.7); Neutrophils % (A) 77 %; Platelet Count 156 k/uL (150-450); RBC 2.91 m/uL (3.80-5.40); WBC 5.6 k/uL (3.8-10.6)
[2024-04-03 00:51] LABS: African American GFR (CKD) 36 (>60 ml/min/1.73 sqM); Anion Gap 4 mmol/L; Blood Urea Nitrogen 44 mg/dL (7-17); Calcium 8.9 mg/dL (8.4-10.2); Carbon Dioxide 30 mmol/L (22-30); Chloride 101 mmol/L (98-107); Glucose 230 mg/dL (74-99); Non-African American GFR(CKD) 31 (>60 ml/min/1.73 sqM); Sodium 135 mmol/L (137-145)
[2024-04-03 01:01] LABS: Potassium 5.6 mmol/L (3.5-5.1)
--- NOTE | 2024-04-03 01:30 | XR ---
EXAMINATION TYPE: XR knee limited bilateral DATE OF EXAM: 04/03/2024 CLINICAL HISTORY: Pain TECHNIQUE: Frontal and lateral views of the bilateral knees are obtained. COMPARISON: None. FINDINGS: Osseous structures are demineralized. There is no acute fracture/dislocation evident in ei ther knee. Moderate patellofemoral compartment narrowing and spurring is seen bilaterally slightly wo rse in the right kidney versus left knee. Severe narrowing medial tibiofemoral compartment is seen bi laterally. There are posterior medial surgical clips proximal tibial level in the left knee. IMPRESSION: There is no acute fracture or dislocation in either knee.
[2024-04-03] MEDS: SODIUM CHLORIDE 0.9% 500 ML 500 ML IV STA (01:55)
[2024-04-03] MEDS ORDERED: NALOXONE 0.4 MG/ML 1 ML VIAL IV PRN (02:44)
[2024-04-03] MEDS ORDERED: ACETAMINOPHEN TAB 325 MG TAB PO PRN ×2 (02:44→12:50)
[2024-04-03] MEDS ORDERED: DEXTROSE 50% SYRINGE 50 ML IVP PRN ×2 (09:31)
[2024-04-03 12:09] LABS: Glucose,Whole Blood 141 mg/dL (70-110)
[2024-04-03] MEDS: INSULIN ASPART (NovoLOG) 100 UNIT/ML VIAL SQ SCH (12:16)
[2024-04-03] MEDS ORDERED: IPRATROPIUM-ALBUTEROL 3 ML NEB INHALATION PRN (12:50)
--- NOTE | 2024-04-03 12:56 | P.HPIM ---
History of Present Illness H&P Date: 04/03/24 Chief Complaint: Difficulty walking Faith is a 74-year-old morbidly obese female who was just discharged 2 days ago from [facility]. They had peeled the decision to discharge but the insurance refused. Apparently she was walking a little bit while there. She went home to live with her son does help care for her. She reports that after being home for day she had more weakness and knee pains. She could not get up from the toilet. She is oxygen dependent and typically is on 3 to 4 L of oxygen via nasal cannula at home. She uses BiPAP. She has a history of hypertension hyperlipidemia type 2 diabetes pulmonary hypertension, previous heart attack, chronic diastolic congestive heart failure, chronic renal failure, coronary disease She came in via EMS emergency room. She currently has no major complaints other knee pain at this time. She does indicate she cannot get up and care for herself at home anymore. At this time she denies any chest pains pressure shortness of breath nausea or vomiting. Vital show she is afebrile, blood press ure control, oxygen is normalized with 3 L O2. Show hemoglobin of 8.2. Potassium is 5.6 and reevaluated at 4.6. GFR is 81. An x-ray of the knees showed no acute fracture or dislocation but moderate patellofemoral compartment narrowing and spurring bilaterally. Review of Systems All systems: negative Past Medical History Past Medical History: Atrial Fibrillation, Coronary Artery Disease (CAD), COPD, Diabetes Mellitus, Eye Disorder, Hyperlipidemia, Hypertension, Osteoarthritis (OA), Pneumonia, Renal Disease, Sleep Apnea/CPAP/BIPAP, Thyroid Disorder Additional Past Medical History / Comment(s): on 05/08/22 with anemia/had EGD and colonoscopy which showed nonbleeding stomach ulcer/diverticular disease and colon polyp, pt received blood transfusions.on 02/12/22 covid/pneumonia/sepsis, o ther past pneumonias, acute hypoxic respiratory failure/now on home oxygen ATC, new A fib with RVR, IDDM type II, neuropathy bilateral feet, L eye retinal bleed/lasik eye surgery, R eye cataract, bilateral eye macular degeneration/gets injections/poor vision, CKD stage III, anemia, UTI/sepsis, bilateral leg lymphedema, FLORES/does not have cpap machine at this time, diverticulitis, gout, chronic back pain, rheumatic fever, hypothyroid. History of Any Multi-Drug Resistant Organisms: ESBL Date of last positivie culture/infection: 05/22/22 ESBL Klebsiella MDRO Source:: Urine Past Surgical History: Bariatric Surgery, Section, Cholecystectomy, Coronary Bypass/CABG, Heart Catheterization, Hysterectomy, Orthopedic Surgery, Tonsillectomy Additional Past Surgical History / Comment(s): EGD, colonoscopy, 2 vessel CABG in 1996, bilateral carpal tunnel release, lap band, L eye laser surgery, Past Anesthesia/Blood Transfusion Reactions: No Reported Reaction Past Psychological History: Depression Additional Psychological History / Comment(s): . Smoking Status: Never smoker Past Alcohol Use History: None Reported Additional Past Alcohol Use History / Comment(s): Patient is a lifelong nonsmoker. Past Drug Use History: None Reported - Past Family History Father History Unknown: Yes Family Medical History: Cancer, Coronary Artery Disease (CAD), Diabetes Mellitus Additional Family Medical History / Comment(s): Prostate cancer Mother History Unknown: Yes Family Medical History: Cancer Additional Family Medical History / Comment(s): Bone cancer. Medications and Allergies Home Medications Medication Instructions Recorded Confirmed Type Atorvastatin [Lipitor] 40 mg PO HS 08/10/16 04/03/24 History Isosorbide Mononitrate [Isosorbide 30 mg PO DAILY 08/10/16 04/03/24 History Mononitrate ER] Mirtazapine [Remeron] 15 mg PO HS 04/12/22 04/03/24 History Acetaminophen Tab [Tylenol] 650 mg PO Q6H PRN 05/08/22 04/03/24 History Levothyroxine Sodium [Synthroid] 50 mcg PO DAILY 12/17/22 04/03/24 History Sertraline [Zoloft] 100 mg PO BID 12/17/22 04/03/24 History Insulin Glargine,Hum.rec.anlog 14 units SQ BID 01/30/24 04/03/24 History [Toujeo Solostar] Pantoprazole [Protonix] 40 mg PO DAILY 01/30/24 04/03/24 History Clopidogrel [Plavix] 75 mg PO DAILY tab 02/23/24 04/03/24 Rx HYDROcodone/APAP 10-325MG [[place] 1 tab PO Q8H PRN #9 tab 02/23/24 04/03/24 Rx 10-325] Furosemide [Lasix] 40 mg PO DAILY 03/01/24 04/03/24 History Gabapentin [Neurontin] 200 mg PO BID 03/01/24 04/03/24 History Ipratropium-Albuterol Nebulize 3 ml INHALATION RT-Q6H PRN 03/01/24 04/03/24 History [Duoneb 0.5 mg-3 mg/3 ml Soln] Naloxone HCl 4 mg NASAL ONCE PRN 03/01/24 04/03/24 History Potassium Chloride ER [K-Dur 20] 20 meq PO DAILY 03/01/24 04/03/24 History carvediloL [Coreg] 3.125 mg PO BID 03/01/24 04/03/24 History oxyBUTYnin chloride [oxyBUTYnin 5 mg PO BID 03/01/24 04/03/24 History chloride ER] Darbepoetin Aly [Aranesp] 60 mcg SQ TH 04/03/24 04/03/24 History Insulin Lispro [humaLOG Kwikpen] 20 unit SQ BID 04/03/24 04/03/24 History Maalox Plus 30 ml PO Q3H PRN 04/03/24 04/03/24 History Allergies Allergy/AdvReac Type Severity Reaction Status Date / Time ibuprofen [From Motrin] Allergy Rash/Hives Verified 04/03/24 12:03 Penicillins Allergy Anaphylaxis Verified 04/03/24 12:03 Physical Exam Vitals: Vital Signs Temp Pulse Pulse Resp BP BP Pulse Ox 04/03/24 09:15 73 20 04/03/24 08:39 97.7 F 73 20 165/62 97 04/03/24 08:00 68 18 109/37 100 04/03/24 07:20 109/39 04/03/24 06:05 97.7 F 67 18 107/41 98 04/03/24 02:00 71 18 125/48 95 04/02/24 23:58 98.0 F 72 20 149/54 96 Intake and Output 04/02/24 04/03/24 04/03/24 22:59 06:59 14:59 Other: Voiding Method External Catheter Weight 131.995 kg 131.995 kg GENERAL: Well-appearing, morbidly obese female in no acute distress. HEAD: Atraumatic, normocephalic. EYES: Pupils equal round and reactive to light, extraocular movements intact, sclera anicteric, conjunctiva are normal. ENT:nares patent, oropharynx clear without exudates. Moist mucous membranes. NECK: Normal range of motion, supple without lymphadenopathy or JVD, no thyromeg celine LUNGS: Breath sounds coarse to auscultation bilaterally and equal. No wheezes rales or rhonchi. HEART: Regular rate and rhythm 1/6 systolic at the right sternal border no rubs or gallops.S1S2 Normal ABDOMEN: Soft, nontender, normoactive bowel sounds. No guarding, no rebound. No masses appreciated. EXTREMITIES: Normal range of motion, No clubbing or cyanosis. +1 pedal edema nonpitting, pain to palpation of the knees with no erythema or ecchymosis noted NEUROLOGICAL: Cranial nerves II through XII grossly intact. Normal speech, gait testing deferred PSYCH: Normal mood, normal affect. SKIN: Warm, Dry, normal turgor, no rashes or lesions noted. Results CBC & Chem 7: 04/03/24 00:19 04/03/24 02:02 Labs: Abnormal Lab Results - Last 24 Hours (Table) 04/03/24 04/03/24 04/03/24 Range/Units 00:19 00:19 12:07 RBC 2.91 L (3.80-5.40) m/uL Hgb 8.2 L (11.4-16.0) gm/dL Hct 26.4 L (34.0-46.0) % RDW 18.0 H (11.5-15.5) % Lymphocytes # 0.6 L (1.0-4.8) k/uL Sodium 135 L (137-145) mmol/L Potassium 5.6 H (3.5-5.1) mmol/L BUN 44 H (7-17) mg/dL Creatinine 1.60 H (0.52-1.04) mg/dL Glucose 230 H (74-99) mg/dL POC Glucose (mg/dL) 141 H (70-110) mg/dL Thrombosis Risk Factor Assmnt - DVT/VTE Prophylaxis DVT/VTE Prophylaxis: Mechanical Prophylaxis ordered - Choose All That Apply Each Factor Represents 1 point: Swollen legs (current) Each Risk Factor Represents 3 Points: Age 75 years or older Thrombosis Risk Factor Assessment Total Risk Factor Score: 4 Thrombosis Risk Factor Assessment Level: Moderate Risk Assessment and Plan (1) Chronic knee pain Current Visit: Yes Status: Acute Code(s): M25.569 - PAIN IN UNSPECIFIED KNEE; G89.29 - OTHER CHRONIC PAIN SNOMED Code(s): 7968474973 (2) Debility Current Visit: Yes Status: Acute Code(s): R53.81 - OTHER [place] SNOMED Code(s): 06459182 (3) Acquired hypothyroidism Current Visit: No Status: Acute Code(s): E03.9 - HYPOTHYROIDISM, UNSPECIFIED SNOMED Code(s): 071364041 (4) Atrial fibrillation Current Visit: No Status: Acute Code(s): I48.91 - UNSPECIFIED ATRIAL FIBRILLATION SNOMED Code(s): 71977189 (5) BiPAP (biphasic positive airway pressure) dependence Current Visit: No Status: Acute Code(s): Z99.89 - DEPENDENCE ON OTHER ENABLING MACHINES AND DEVICES SNOMED Code(s): 408198014 (6) CKD (chronic kidney disease) stage 3, GFR 30-59 ml/min Current Visit: No Status: Acute Code(s): N18.30 - CHRONIC KIDNEY DISEASE, STAGE 3 UNSPECIFIED SNOMED Code(s): 918815598 (7) Chronic diastolic (congestive) heart failure Current Visit: No Status: Acute Code(s): I50.32 - CHRONIC DIASTOLIC (CONGESTIVE) HEART FAILURE SNOMED Code(s): 288101427 (8) Coronary artery disease with history of coronary revascularization Current Visit: No Status: Acute Code(s): I25.10 - ATHSCL HEART DISEASE OF [place] CORONARY ARTERY W/O ANG PCTRS; Z98.61 - CORONARY ANGIOPLASTY STATUS SNOMED Code(s): 88944963 (9) Essential (primary) hypertension Current Visit: No Status: Acute Code(s): I10 - ESSENTIAL (PRIMARY) HYPERTENSION SNOMED Code(s): 37081395 (10) History of hyperlipidemia Current Visit: No Status: Acute Code(s): Z86.39 - PERSONAL HISTORY OF ENDO, NUTRITIONAL AND METABOLIC DISEASE SNOMED Code(s): 318496919 (11) Major depressive disorder, recurrent, moderate Current Visit: No Status: Acute Code(s): F33.1 - MAJOR DEPRESSIVE DISORDER, RECURRENT, MODERATE SNOMED Code(s): 997917362 (12) Mixed hyperlipidemia Current Visit: No Status: Acute Code(s): E78.2 - MIXED HYPERLIPIDEMIA SNOMED Code(s): 667198214 (13) Morbid obesity Current Visit: No Status: Acute Code(s): E66.01 - MORBID (SEVERE) OBESITY DUE TO EXCESS CALORIES SNOMED Code(s): 745949201 (14) Obstructive sleep apnea Current Visit: No Status: Acute Code(s): G47.33 - OBSTRUCTIVE SLEEP APNEA (ADULT) (PEDIATRIC) SNOMED Code(s): 81198017 (15) Persistent atrial fibrillation Current Visit: No Status: Acute Code(s): I48.19 - OTHER PERSISTENT ATRIAL FIBRILLATION SNOMED Code(s): 458363377 (16) Type 2 diabetes mellitus with diabetic mononeuropathy Current Visit: No Status: Acute Code(s): E11.41 - TYPE 2 DIABETES MELLITUS WITH DIABETIC MONONEUROPATHY SNOMED Code(s): 726126909 Plan: I will reorder home medications, will consult orthopedics regarding her knee pain and discharge planning for assisted living for her at this time, she will continue her BiPAP use, will monitor her potassium and anemia. She will be reevaluated in the next 24 hours by family medicine.
--- NOTE | 2024-04-03 14:11 | P.CNOR ---
History of Present Illness - HPI Consult date: 04/03/24 Consult reason: joint pain (Bilateral knee pain) History of present illness: Patient is a 74-year-old female who presented to [facility] earlier this morning, she has multiple medical comorbidities, this to include chronic debility, morbid obesity, COPD, heart failure. Patient was recently discharged from subacute rehab, she had been there for about 3 weeks, she was at our hospital for apparently heart failure along with kidney failure. Since being home patient was unable to take care of herself and was having a very difficult time ambulating and unable to bear weight due to the pain in her knees. She reported [facility] for further evaluation. Patient was admitted under internal medicine, our orthopedic team was then consulted with regards to her knee pain. Patient states that her knees have bothered her for many years, she has had on and off pain in the right knee for about 6 years, she states that the left knee just started bothering her over the last month or so. She denies any previous surgery to the bilateral knees. She is never been evaluated by an orthopedic doctor. Patient normally utilizes a walker for ambulation. Patient's general activity is decreased significantly since 2019 when she states she got COVID. She does live with her son at this time. She denies any numbness or tingling to the bilateral lower extremities, she denies any loss of bowel or bladder function at this time. She denies any fevers or chills. Review of Systems Constitutional: Reports as per HPI Past Medical History Past Medical History: Atrial Fibrillation, Coronary Artery Disease (CAD), COPD, Diabetes Mellitus, Eye Disorder, Hyperlipidemia, Hypertension, Osteoarthritis (OA), Pneumonia, Renal Disease, Sleep Apnea/CPAP/BIPAP, Thyroid Disorder Additional Past Medical History / Comment(s): on 05/08/22 with anemia/had EGD and colonoscopy which showed nonbleeding stomach ulcer/diverticular disease and colon polyp, pt received blood transfusions.on 02/12/22 covid/pneumonia/sepsis, other past pneumonias, acute hypoxic respiratory failure/now on home oxygen ATC, new A fib with RVR, IDDM type II, neuropathy bilateral feet, L eye retinal bleed/lasik eye surgery, R eye cataract, bilateral eye macular degeneration/gets injections/poor vision, CKD stage III, anemia, UTI/sepsis, bilateral leg lymphedema, FLORES/does not have cpap machine at this time, diverticulitis, gout, chronic back pain, rheumatic fever, hypothyroid. History of Any Multi-Drug Resistant Organisms: ESBL Year Discovered:: 05/22/22 ESBL Klebsiella MDRO Source:: Urine Past Surgical History: Bariatric Surgery, Section, Cholecystectomy, Coronary Bypass/CABG, Heart Catheterization, Hysterectomy, Orthopedic Surgery, Tonsillectomy Additional Past Surgical History / Comment(s): EGD, colonoscopy, 2 vessel CABG in 1996, bilateral carpal tunnel release, lap band, L eye laser surgery, Past Anesthesia/Blood Transfusion Reactions: No Reported Reaction Past Psychological History: Depression Additional Psychological History / Comment(s): . Smoking Status: Never smoker Past Alcohol Use History: None Reported Additional Past Alcohol Use History / Comment(s): Patient is a lifelong nonsmoker. Past Drug Use History: None Reported - Past Family History Father History Unknown: Yes Family Medical History: Cancer, Coronary Artery Disease (CAD), Diabetes Mellitus Additional Family Medical History / Comment(s): Prostate cancer Mother History Unknown: Yes Family Medical History: Cancer Additional Family Medical History / Comment(s): Bone cancer. Medications and Allergies Home Medications Medication Instructions Recorded Confirmed Type Atorvastatin [Lipitor] 40 mg PO HS 08/10/16 04/03/24 History Isosorbide Mononitrate [Isosorbide 30 mg PO DAILY 08/10/16 04/03/24 History Mononitrate ER] Mirtazapine [Remeron] 15 mg PO HS 04/12/22 04/03/24 History Acetaminophen Tab [Tylenol] 650 mg PO Q6H PRN 05/08/22 04/03/24 History Levothyroxine Sodium [Synthroid] 50 mcg PO DAILY 12/17/22 04/03/24 History Sertraline [Zoloft] 100 mg PO BID 12/17/22 04/03/24 History Insulin Glargine,Hum.rec.anlog 14 units SQ BID 01/30/24 04/03/24 History [Toujeo Solostar] Pantoprazole [Protonix] 40 mg PO DAILY 01/30/24 04/03/24 History Clopidogrel [Plavix] 75 mg PO DAILY tab 02/23/24 04/03/24 Rx HYDROcodone/APAP 10-325MG [[place] 1 tab PO Q8H PRN #9 tab 02/23/24 04/03/24 Rx 10-325] Furosemide [Lasix] 40 mg PO DAILY 03/01/24 04/03/24 History Gabapentin [Neurontin] 200 mg PO BID 03/01/24 04/03/24 History Ipratropium-Albuterol Nebulize 3 ml INHALATION RT-Q6H PRN 03/01/24 04/03/24 History [Duoneb 0.5 mg-3 mg/3 ml Soln] Naloxone HCl 4 mg NASAL ONCE PRN 03/01/24 04/03/24 History Potassium Chloride ER [K-Dur 20] 20 meq PO DAILY 03/01/24 04/03/24 History carvediloL [Coreg] 3.125 mg PO BID 03/01/24 04/03/24 History oxyBUTYnin chloride [oxyBUTYnin 5 mg PO BID 03/01/24 04/03/24 History chloride ER] Darbepoetin Aly [Aranesp] 60 mcg SQ TH 04/03/24 04/03/24 History Insulin Lispro [humaLOG Kwikpen] 20 unit SQ BID 04/03/24 04/03/24 History Maalox Plus 30 ml PO Q3H PRN 04/03/24 04/03/24 History Allergies Allergy/AdvReac Type Severity Reaction Status Date / Time ibuprofen [From Motrin] Allergy Rash/Hives Verified 04/03/24 12:03 Penicillins Allergy Anaphylaxis Verified 04/03/24 12:03 Physical Examination Bilateral knees: No obvious open lesions or sores present to the bilateral knees. There is generalized erythema and edema to the distal lower extremities Significant recurvatum noted in the bilateral knees, she has a significant valgus deformity in the right knee, more mild on the left. Tender with palpation throughout both knees more along the medial joint space of the left knee and the lateral joint line of the right knee. She demonstrates pain with palpation over the patella Range of motion is very limited, she flexes to about 60 degrees in the bilateral knees, again she hyperextends in both knees Knees are stable to both varus and valgus force Calves are soft, no tenderness with palpation Sensory exam to light touch is intact throughout the extremity Skin is warm to touch to the bilateral lower extremities Results - Labs Labs: Abnormal Lab Results - Last 24 Hours (Table) 04/03/24 04/03/2424 Range/Units 00:19 00:19 12:07 RBC 2.91 L (3.80-5.40) m/uL Hgb 8.2 L (11.4-16.0) gm/dL Hct 26.4 L (34.0-46.0) % RDW 18.0 H (11.5-15.5) % Lymphocytes # 0.6 L (1.0-4.8) k/uL Sodium 135 L (137-145) mmol/L Potassium 5.6 H (3.5-5.1) mmol/L BUN 44 H (7-17) mg/dL Creatinine 1.60 H (0.52-1.04) mg/dL Glucose 230 H (74-99) mg/dL POC Glucose (mg/dL) 141 H (70-110) mg/dL H & H 04/03/24 Range/Units 00:19 Hgb 8.2 L (11.4-16.0) gm/dL Hct 26.4 L (34.0-46.0) % Result Diagrams: 04/03/24 00:19 04/03/24 02:02 - Diagnostic results Knee x-ray: report reviewed, image reviewed (AP x-rays along with a lateral view of the left knee was reviewed, these were nonweightbearing films. Images do demonstrate severe osteoarthritic changes to the bilateral knees, this to include subchondral sclerosis and osteophyte formation, and loss of joint space) Assessment and Plan Assessment: Bilateral knee pain Severe bilateral knee osteoarthritis Super morbid obesity Chronic debility Multiple medical comorbidities Plan: I was able to discuss the case, this to include both physical exam findings and imaging studies my attending Dr. Dunn. No emergent orthopedic surgical intervention is recommended at this time We discussed conservative measures, this to include icing and elevating, the use of anti-inflammatories/Tylenol, physical therapy and possible injections in the future PT/OT evaluation GI and DVT prophylaxis per primary medical service Weight-bear as tolerated, recommend use of walker at all times Other medical specialty recommendations appreciated Discharge planning: orthopedically patient remains stable, will reassess why she is in the hospital and recommending follow-up in the outpatient setting Time with Patient: Less than 30
[2024-04-03] MEDS: OXYBUTYNIN XL 5 MG TAB.ER.24 PO SCH (14:57)
[2024-04-03] MEDS: CLOPIDOGREL 75 MG TAB PO SCH (15:08)
[2024-04-03] MEDS: FUROSEMIDE 40 MG TAB PO SCH (15:08)
[2024-04-03] MEDS: ISOSORBIDE MONONITRATE ER 30 MG TAB.ER.24H PO SCH (15:09)
[2024-04-03] MEDS: carvediloL 3.125 MG TAB PO SCH (15:09)
[2024-04-03] MEDS: SERTRALINE 100 MG TAB PO SCH (15:09)
[2024-04-03] MEDS: GABAPENTIN 100 MG CAP PO SCH (15:09)
[2024-04-03] MEDS: PANTOPRAZOLE 40 MG TABLET PO SCH (15:09)
[2024-04-03 16:43] LABS: T4, Free (Free Thyroxine) 0.93 ng/dL (0.78-2.19)
[2024-04-03 17:07] LABS: Glucose,Whole Blood 189 mg/dL (70-110)
[2024-04-03 20:45] LABS: Glucose,Whole Blood 198 mg/dL (70-110)
[2024-04-03] MEDS: HYDROcodone/APAP 10-325MG 1 EACH TAB PO PRN (21:01)
[2024-04-03] MEDS: ATORVASTATIN 40 MG TAB PO SCH (21:01)
[2024-04-03] MEDS: MIRTAZAPINE 15 MG TAB PO SCH (21:02)
[2024-04-03] MEDS: INSULIN DETEMIR (LEVEMIR) 100 UNIT/ML SYR SQ SCH (21:02)
[2024-04-04] MEDS: LEVOTHYROXINE 50 MCG TAB PO SCH (05:33)
[2024-04-04 07:29] LABS: Glucose,Whole Blood 131 mg/dL (70-110)
[2024-04-04 09:03] LABS: Basophils # (A) 0.03 X 10*3/uL (0.00-0.10); Basophils % (A) 0.6 %; Eosinophils # (A) 0.22 X 10*3/uL (0.04-0.35); Eosinophils % (A) 4.1 %; HCT 24.9 % (37.2-46.3); HGB 7.3 g/dL (12.0-15.0); Lymphocytes # (A) 0.75 X 10*3/uL (0.90-5.00); Lymphocytes % (A) 13.8 %; MCH 28.2 pg (27.0-32.0); MCHC 29.3 g/dL (32.0-37.0); MCV 96.1 FL (80.0-97.0); Mean Platelet Volume 11.4 FL (9.5-12.2); Monocytes % (A) 9.2 %; NRBC Per 100 WBC 0 X 10*3/uL (0.00-0.01); Neutrophils % (A) 71.7 %; Platelet Count 140 X 10*3/uL (140-440); RBC 2.59 X 10*6/uL (4.10-5.20); RDW 18.4 % (11.5-14.5); WBC 5.43 X 10*3/uL (4.50-10.00)
[2024-04-04 10:22] LABS: ALT 11 U/L (8-44); AST 17 U/L (13-35); Albumin 3.1 g/dL (3.8-4.9); Albumin/Globulin Ratio 1.35 Ratio (1.60-3.17); Alkaline Phosphatase 93 U/L (41-126); BUN/Creat Ratio 21.67 Ratio (12.00-20.00); Blood Urea Nitrogen 32.5 mg/dL (9.0-27.0); Calcium 8.3 mg/dL (8.7-10.3); Carbon Dioxide 30.5 mmol/L (21.6-31.8); Chloride 104 mmol/L (96-109); Globulin 2.3 g/dL (1.6-3.3); Glucose 132 mg/dL (70-110); Potassium 4.8 mmol/L (3.5-5.5); Sodium 141 mmol/L (135-145); Total Bilirubin 0.4 mg/dL (0.3-1.2); Total Protein 5.4 g/dL (6.2-8.2)
[2024-04-04 12:19] LABS: Glucose,Whole Blood 162 mg/dL (70-110)
--- NOTE | 2024-04-04 13:35 | P.PN ---
Subjective Progress Note Date: 04/04/24 Principal diagnosis: bilateral knee osteoarthritis, chronic debility patient was examined today at bedside, she is up in her hospital chair having lunch. Physical therapy was able to get the patient to the chair today, she was able to ambulate with the assistance of a walker. She continues to have generalized bilateral knee pain. Objective - Vital Signs Vital signs: Vital Signs Temp 97.3 F L 04/04/24 12:11 Pulse 63 04/04/24 12:11 Resp 16 04/04/24 12:11 BP 180/74 04/04/24 12:11 Pulse Ox 99 04/04/24 12:11 FiO2 Intake & Output 04/03/24 04/04/24 04/04/24 18:59 06:59 18:59 Intake Total 540 118 Output Total 850 100 Balance -310 18 Weight 131.995 kg Intake: Oral 540 118 Output: Urine 850 100 Other: Voiding Method External Catheter External Catheter External Catheter # Bowel Movements 1 1 - Exam Bilateral knees: No obvious open lesions or sores present to the bilateral knees. There is generalized erythema and edema to the distal lower extremities Significant recurvatum noted in the bilateral knees, she has a significant valgus deformity in the right knee, more mild on the left. Tender with palpation throughout both knees more along the medial joint space of the left knee and the lateral joint line of the right knee. She demonstrates pain with palpation over the patella Range of motion is very limited, she flexes to about 60 degrees in the bilateral knees, again she hyperextends in both knees Knees are stable to both varus and valgus force Calves are soft, no tenderness with palpation Sensory exam to light touch is intact throughout the extremity Skin is warm to touch to the bilateral lower extremities - Labs CBC & Chem 7: 04/04/24 06:10 04/04/24 06:10 Labs: Abnormal Lab Results - Last 24 Hours (Table) 04/03/24 04/03/24 04/03/24 Range/Units 02:02 17:05 20:43 RBC (4.10-5.20) X 10*6/uL Hgb (12.0-15.0) g/dL Hct (37.2-46.3) % MCHC (32.0-37.0) g/dL RDW (11.5-14.5) % Lymphocytes # (0.90-5.00) X 10*3/uL BUN (9.0-27.0) mg/dL Est GFR (CKD-EPI) (>=60) BUN/Creatinine Ratio (12.00-20.00) Ratio Glucose (70-110) mg/dL POC Glucose (mg/dL) 189 H 198 H (70-110) mg/dL Hemoglobin A1c (<=6.0) % Calcium (8.7-10.3) mg/dL Total Protein (6.2-8.2) g/dL Albumin (3.8-4.9) g/dL Albumin/Globulin Ratio (1.60-3.17) Ratio TSH 33.400 H (0.465-4.680) mIU/L 04/04/24 04/04/24 04/04/24 Range/Units 06:10 06:10 06:10 RBC 2.59 L (4.10-5.20) X 10*6/uL Hgb 7.3 L (12.0-15.0) g/dL Hct 24.9 L (37.2-46.3) % MCHC 29.3 L (32.0-37.0) g/dL RDW 18.4 H (11.5-14.5) % Lymphocytes # 0.75 L (0.90-5.00) X 10*3/uL BUN 32.5 H (9.0-27.0) mg/dL Est GFR (CKD-EPI) 36 L (>=60) BUN/Creatinine Ratio 21.67 H (12.00-20.00) Ratio Glucose 132 H (70-110) mg/dL POC Glucose (mg/dL) (70-110) mg/dL Hemoglobin A1c 6.6 H (<=6.0) % Calcium 8.3 L (8.7-10.3) mg/dL Total Protein 5.4 L (6.2-8.2) g/dL Albumin 3.1 L (3.8-4.9) g/dL Albumin/Globulin Ratio 1.35 L (1.60-3.17) Ratio TSH (0.465-4.680) mIU/L 04/04/24 04/04/24 Range/Units 07:28 12:17 RBC (4.10-5.20) X 10*6/uL Hgb (12.0-15.0) g/dL Hct (37.2-46.3) % MCHC (32.0-37.0) g/dL RDW (11.5-14.5) % Lymphocytes # (0.90-5.00) X 10*3/uL BUN (9.0-27.0) mg/dL Est GFR (CKD-EPI) (>=60) BUN/Creatinine Ratio (12.00-20.00) Ratio Glucose (70-110) mg/dL POC Glucose (mg/dL) 131 H 162 H (70-110) mg/dL Hemoglobin A1c (<=6.0) % Calcium (8.7-10.3) mg/dL Total Protein (6.2-8.2) g/dL Albumin (3.8-4.9) g/dL Albumin/Globulin Ratio (1.60-3.17) Ratio TSH (0.465-4.680) mIU/L Assessment and Plan Assessment: Bilateral knee pain Severe bilateral knee osteoarthritis Super morbid obesity Chronic debility Multiple medical comorbidities Plan: Recommend continuing conservative measures, this to include icing and elevating, Tylenol/NSAIDs, physical therapy PT/OT evaluation GI and DVT prophylaxis per primary medical service Weight-bear as tolerated, recommend use of walker at all times Other medical specialty recommendations appreciated Discharge planning: orthopedically patient remains stable, recommend subacute rehab placement for daily physical therapy. Our follow-up information will be placed in chart, please contact our service with any further questions Time with Patient: Less than 30
[2024-04-04 17:02] LABS: Glucose,Whole Blood 205 mg/dL (70-110)
[2024-04-04 19:57] LABS: Glucose,Whole Blood 219 mg/dL (70-110)
[2024-04-05 03:57] LABS: Anisocytosis Slight; Basophils % (A) 0 %; Eosinophils # (A) 0.2 k/uL (0-0.7); Eosinophils % (A) 4 %; Hypochromasia Marked; Lymphocytes # (A) 0.4 k/uL (1.0-4.8); Lymphocytes % (A) 9 %; MCH 28.8 pg (25.0-35.0); MCHC 30.6 g/dL (31.0-37.0); MCV 94.2 fL (80.0-100.0); Mean Platelet Volume 8.6; Monocytes # (A) 0.3 k/uL (0-1.0); Monocytes % (A) 6 %; Neutrophils # (A) 3.9 k/uL (1.3-7.7); Neutrophils % (A) 80 %; Platelet Count 119 k/uL (150-450); RBC 2.76 m/uL (3.80-5.40); RDW 17.7 % (11.5-15.5); WBC 4.9 k/uL (3.8-10.6)
[2024-04-05 04:05] LABS: African American GFR (CKD) 52 (>60 ml/min/1.73 sqM); Anion Gap -1 mmol/L; Blood Urea Nitrogen 35 mg/dL (7-17); Calcium 8.6 mg/dL (8.4-10.2); Carbon Dioxide 34 mmol/L (22-30); Chloride 104 mmol/L (98-107); Glucose 116 mg/dL (74-99); Non-African American GFR(CKD) 45 (>60 ml/min/1.73 sqM); Sodium 137 mmol/L (137-145)
[2024-04-05 07:09] LABS: Glucose,Whole Blood 109 mg/dL (70-110)
[2024-04-05 07:49] VITALS: RESP 16
--- NOTE | 2024-04-05 10:01 | P.PN ---
Subjective Progress Note Date: 04/04/24 H&P Date: 04/03/24 Chief Complaint: Difficulty walking Faith is a 74-year-old morbidly obese female who was just discharged 2 days ago from [facility]. They had peeled the decision to discharge but the insurance refused. Apparently she was walking a little bit while there. She went home to live with her son does help care for her. She reports that after being home for day she had more weakness and knee pains. She could not get up from the toilet. She is oxygen dependent and typically is on 3 to 4 L of oxygen via nasal cannula at home. She uses BiPAP. She has a history of hypertension hyperlipidemia type 2 diabetes pulmonary hypertension, previous heart attack, chronic diastolic congestive heart failure, chronic renal failure, coronary disease She came in via EMS emergency room. She currently has no major complaints other knee pain at this time. She does indicate she cannot get up and care for herself at home anymore. At this time she denies any chest pains pressure shortness of breath nausea or vomiting. Vital show she is afebrile, blood pressure control, oxygen is normalized with 3 L O2. Show hemoglobin of 8.2. Potassium is 5.6 and reevaluated at 4.6. GFR is 81. An x-ray of the knees showed no acute fracture or dislocation but moderate patellofemoral compartment narrowing and spurring bilaterally. 04/04/2024 transferred to chair with PT and walker. Complains of generalized bilateral knee pain. Expresses motivation to increase her strength at subacute rehab.vital signs stable. Maintaining O2 sats in the high 90s on 3 L nasal cannula. Denies chest pain, palpitations or shortness of breath. Denies lightheadedness, dizziness or focal deficits. Objective - Vital Signs Vital signs: Vital Signs Temp 97.3 F L 04/04/24 12:11 Pulse 63 04/04/24 12:11 Resp 16 04/04/24 12:11 BP 180/74 04/04/24 12:11 Pulse Ox 99 04/04/24 12:11 FiO2 Intake & Output 04/03/24 04/04/24 04/04/24 18:59 06:59 18:59 Intake Total 540 118 Output Total 850 100 Balance -310 18 Weight 131.995 kg Intake: Oral 540 118 Output: Urine 850 100 Other: Voiding Method External Catheter External Catheter External Catheter # Bowel Movements 1 1 - Exam GENERAL: Well-appearing, morbidly obese female in no acute distress, sitting up in chair. HEAD: Atraumatic, normocephalic. EYES: Pupils equal round and reactive to light, extraocular movements intact, sclera anicteric, conjunctiva are normal. ENT: Moist mucous membranes. NECK:supple, no JVD LUNGS: Unlabored, equal air entry, coarse to auscultation bilaterally, No wheezes rales or rhonchi. HEART: Regular rate and rhythm 1/6 systolic murmur at the right sternal border no rubs or gallops.S1S2 Normal ABDOMEN: Soft, nontender, normoactive bowel sounds. No guarding, no rebound. No masses appreciated. EXTREMITIES: Normal range of motion, No clubbing or cyanosis. +1 pedal edema nonpitting. NEUROLOGICAL: Cranial nerves II through XII grossly intact. PSYCH: Normal mood, normal affect. SKIN: Warm, Dry, normal turgor, no rashes noted. - Labs CBC & Chem 7: 04/05/24 03:19 04/05/24 03:19 Labs: Abnormal Lab Results - Last 24 Hours (Table) 04/03/24 04/04/24 04/04/24 Range/Units 20:43 06:10 06:10 RBC 2.59 L (4.10-5.20) X 10*6/uL Hgb 7.3 L (12.0-15.0) g/dL Hct 24.9 L (37.2-46.3) % MCHC 29.3 L (32.0-37.0) g/dL RDW 18.4 H (11.5-14.5) % Lymphocytes # 0.75 L (0.90-5.00) X 10*3/uL BUN (9.0-27.0) mg/dL Est GFR (CKD-EPI) (>=60) BUN/Creatinine Ratio (12.00-20.00) Ratio Glucose (70-110) mg/dL POC Glucose (mg/dL) 198 H (70-110) mg/dL Hemoglobin A1c 6.6 H (<=6.0) % Calcium (8.7-10.3) mg/dL Total Protein (6.2-8.2) g/dL Albumin (3.8-4.9) g/dL Albumin/Globulin Ratio (1.60-3.17) Ratio 04/04/24 04/04/24 04/04/24 Range/Units 06:10 07:28 12:17 RBC (4.10-5.20) X 10*6/uL Hgb (12.0-15.0) g/dL Hct (37.2-46.3) % MCHC (32.0-37.0) g/dL RDW (11.5-14.5) % Lymphocytes # (0.90-5.00) X 10*3/uL BUN 32.5 H (9.0-27.0) mg/dL Est GFR (CKD-EPI) 36 L (>=60) BUN/Creatinine Ratio 21.67 H (12.00-20.00) Ratio Glucose 132 H (70-110) mg/dL POC Glucose (mg/dL) 131 H 162 H (70-110) mg/dL Hemoglobin A1c (<=6.0) % Calcium 8.3 L (8.7-10.3) mg/dL Total Protein 5.4 L (6.2-8.2) g/dL Albumin 3.1 L (3.8-4.9) g/dL Albumin/Globulin Ratio 1.35 L (1.60-3.17) Ratio 04/04/24 Range/Units 17:01 RBC (4.10-5.20) X 10*6/uL Hgb (12.0-15.0) g/dL Hct (37.2-46.3) % MCHC (32.0-37.0) g/dL RDW (11.5-14.5) % Lymphocytes # (0.90-5.00) X 10*3/uL BUN (9.0-27.0) mg/dL Est GFR (CKD-EPI) (>=60) BUN/Creatinine Ratio (12.00-20.00) Ratio Glucose (70-110) mg/dL POC Glucose (mg/dL) 205 H (70-110) mg/dL Hemoglobin A1c (<=6.0) % Calcium (8.7-10.3) mg/dL Total Protein (6.2-8.2) g/dL Albumin (3.8-4.9) g/dL Albumin/Globulin Ratio (1.60-3.17) Ratio Assessment and Plan Assessment: (1) Chronic knee pain Current Visit: Yes Status: Acute Code(s): M25.569 - PAIN IN UNSPECIFIED KNEE; G89.29 - OTHER CHRONIC PAIN SNOMED Code(s): 4317794815 (2) Debility Current Visit: Yes Status: Acute Code(s): R53.81 - OTHER [place] SNOMED Code(s): 77952794 (3) Acquired hypothyroidism Current Visit: No Status: Acute Code(s): E03.9 - HYPOTHYROIDISM, UNSPECIFIED SNOMED Code(s): 973407893 (4) Atrial fibrillation Current Visit: No Status: Acute Code(s): I48.91 - UNSPECIFIED ATRIAL FIBRILLATION SNOMED Code(s): 90560626 (5) BiPAP (biphasic positive airway pressure) dependence Current Visit: No Status: Acute Code(s): Z99.89 - DEPENDENCE ON OTHER ENABLING MACHINES AND DEVICES SNOMED Code(s): 937366443 (6) CKD (chronic kidney disease) stage 3, GFR 30-59 ml/min Current Visit: No Status: Acute Code(s): N18.30 - CHRONIC KIDNEY DISEASE, STAGE 3 UNSPECIFIED SNOMED Code(s): 588773302 (7) Chronic diastolic (congestive) heart failure Current Visit: No Status: Acute Code(s): I50.32 - CHRONIC DIASTOLIC (CONGESTIVE) HEART FAILURE SNOMED Code(s): 881593003 (8) Coronary artery disease with history of coronary revascularization Current Visit: No Status: Acute Code(s): I25.10 - ATHSCL HEART DISEASE OF [place] CORONARY ARTERY W/O ANG PCTRS; Z98.61 - CORONARY ANGIOPLASTY STATUS SNOMED Code(s): 07176270 (9) Essential (primary) hypertension Current Visit: No Status: Acute Code(s): I10 - ESSENTIAL (PRIMARY) HYPERTENSION SNOMED Code(s): 61061565 (10) History of hyperlipidemia Current Visit: No Status: Acute Code(s): Z86.39 - PERSONAL HISTORY OF ENDO, NUTRITIONAL AND METABOLIC DISEASE SNOMED Code(s): 960346275 (11) Major depressive disorder, recurrent, moderate Current Visit: No Status: Acute Code(s): F33.1 - MAJOR DEPRESSIVE DISORDER, RECURRENT, MODERATE SNOMED Code(s): 185660627 (12) Mixed hyperlipidemia Current Visit: No Status: Acute Code(s): E78.2 - MIXED HYPERLIPIDEMIA SNOMED Code(s): 451623201 (13) Morbid obesity Current Visit: No Status: Acute Code(s): E66.01 - MORBID (SEVERE) OBESITY DUE TO EXCESS CALORIES SNOMED Code(s): 016180781 (14) Obstructive sleep apnea Current Visit: No Status: Acute Code(s): G47.33 - OBSTRUCTIVE SLEEP APNEA (ADULT) (PEDIATRIC) SNOMED Code(s): 34072086 (15) Persistent atrial fibrillation Current Visit: No Status: Acute Code(s): I48.19 - OTHER PERSISTENT ATRIAL FIBRILLATION SNOMED Code(s): 061306085 (16) Type 2 diabetes mellitus with diabetic mononeuropathy Current Visit: No Status: Acute Code(s): E11.41 - TYPE 2 DIABETES MELLITUS WITH DIABETIC MONONEUROPATHY SNOMED Code(s): 906150884 Plan: Continue on current medication regime, monitoring and symptomatic treatment. Evaluated by orthopedic surgery related to generalized bilateral knee pain, imaging reviewed and recommending conservative measures. Evaluated by physical therapy recommending subacute rehab. discharge planning in progress for return to subacute rehab. Patient will be discharged to [facility] subacute rehab. Pending authorization. The impression and plan of care has been dictated as directed. : I performed a history and examination of this patient, discussed the same with the dictator. I agree with the dictator's note ,documented as a scribe. Any additional findings or plans will be noted.
--- NOTE | 2024-04-05 10:34 | P.DS ---
Providers Date of admission: 04/03/24 02:45 Expected date of discharge: 04/05/24 Attending physician: Maik Jama Consults: 04/03/24 12:57 Consult Physician Routine Consulting Provider: Magdiel Dunn Consult Reason/Comments: Bilateral knee pain Do you want consulting provider notified?: Yes Primary care physician: [facility] Course: Final Diagnoses: (1) Chronic knee pain Current Visit: Yes Status: Acute Code(s): M25.569 - PAIN IN UNSPECIFIED KNEE; G89.29 - OTHER CHRONIC PAIN SNOMED Code(s): 9740267720 (2) Debility Current Visit: Yes Status: Acute Code(s): R53.81 - OTHER MALAISE SNOMED Code(s): 39502259 (3) Acquired hypothyroidism Current Visit: No Status: Acute Code(s): E03.9 - HYPOTHYROIDISM, UNSPECIFIED SNOMED Code(s): 863099533 (4) Atrial fibrillation Current Visit: No Status: Acute Code(s): I48.91 - UNSPECIFIED ATRIAL FIBRILLATION SNOMED Code(s): 19681490 (5) BiPAP (biphasic positive airway pressure) dependence Current Visit: No Status: Acute Code(s): Z99.89 - DEPENDENCE ON OTHER ENABLING MACHINES AND DEVICES SNOMED Code(s): 215503576 (6) CKD (chronic kidney disease) stage 3, GFR 30-59 ml/min Current Visit: No Status: Acute Code(s): N18.30 - CHRONIC KIDNEY DISEASE, STAGE 3 UNSPECIFIED SNOMED Code(s): 471346623 (7) Chronic diastolic (congestive) heart failure Current Visit: No Status: Acute Code(s): I50.32 - CHRONIC DIASTOLIC (CONGESTIVE) HEART FAILURE SNOMED Code(s): 222329302 (8) Coronary artery disease with history of coronary revascularization Current Visit: No Status: Acute Code(s): I25.10 - ATHSCL HEART DISEASE OF [place] CORONARY ARTERY W/O ANG PCTRS; Z98.61 - CORONARY ANGIOPLASTY STATUS SNOMED Code(s): 90970388 (9) Essential (primary) hypertension Current Visit: No Status: Acute Code(s): I10 - ESSENTIAL (PRIMARY) HYPERTENSION SNOMED Code(s): 76552376 (10) History of hyperlipidemia Current Visit: No Status: Acute Code(s): Z86.39 - PERSONAL HISTORY OF ENDO, NUTRITIONAL AND METABOLIC DISEASE SNOMED Code(s): 071802990 (11) Major depressive disorder, recurrent, moderate Current Visit: No Status: Acute Code(s): F33.1 - MAJOR DEPRESSIVE DISORDER, RECURRENT, MODERATE SNOMED Code(s): 258299337 (12) Mixed hyperlipidemia Current Visit: No Status: Acute Code(s): E78.2 - MIXED HYPERLIPIDEMIA SNOMED Code(s): 067167125 (13) Morbid obesity Current Visit: No Status: Acute Code(s): E66.01 - MORBID (SEVERE) OBESITY DUE TO EXCESS CALORIES SNOMED Code(s): 403402577 (14) Obstructive sleep apnea Current Visit: No Status: Acute Code(s): G47.33 - OBSTRUCTIVE SLEEP APNEA (ADULT) (PEDIATRIC) SNOMED Code(s): 37124108 (15) Persistent atrial fibrillation Current Visit: No Status: Acute Code(s): I48.19 - OTHER PERSISTENT ATRIAL FIBRILLATION SNOMED Code(s): 338880570 (16) Type 2 diabetes mellitus with diabetic mononeuropathy Current Visit: No Status: Acute Code(s): E11.41 - TYPE 2 DIABETES MELLITUS WITH DIABETIC MONONEUROPATHY SNOMED Code(s): 123268022 Hospital course:Faith is a 74-year-old morbidly obese female who was just discharged 2 days ago from [facility]. They had peeled the decision to discharge but the insurance refused. Apparently she was walking a little bit while there. She went home to live with her son does help care for her. She reports that after being home for day she had more weakness and knee pains. She could not get up from the toilet. She is oxygen dependent and typically is on 3 to 4 L of oxygen via nasal cannula at home. She uses BiPAP. She has a history of hypertension hyperlipidemia type 2 diabetes pulmonary hypertension, previous heart attack, chronic diastolic congestive heart failure, chronic renal failure, coronary disease She came in via EMS emergency room. She currently has no major complaints other knee pain at this time. She does indicate she cannot get up and care for herself at home anymore. At this time she denies any chest pains pressure shortness of breath nausea or vomiting. Vital show she is afebrile, blood pressure control, oxygen is normalized with 3 L O2. Show hemoglobin of 8.2. Potassium is 5.6 and reevaluated at 4.6. GFR is 81. An x-ray of the knees showed no acute fracture or dislocation but moderate patellofemoral compartment narrowing and spurring bilaterally. 04/04/2024 transferred to chair with PT and walker. Complains of generalized bilateral knee pain. Expresses motivation to increase her strength at subacute rehab.vital signs stable. Maintaining O2 sats in the high 90s on 3 L nasal cannula. Denies chest pain, palpitations or shortness of breath. Denies lightheadedness, dizziness or focal deficits. Vital signs stable, denies chest pain, palpitations or shortness of breath. Denies lightheadedness, dizziness or focal deficits. Patient will be discharged to [facility] subacute rehab today in a stable condition with guarded prognosis pending authorization. The impression and plan of care has been dictated as directed. : I performed a history and examination of this patient, discussed the same with the dictator. I agree with the dictator's note ,documented as a scribe. Any additional findings or plans will be noted. Patient Condition at Discharge: Stable Plan - Discharge Summary New Discharge Prescriptions: Continue Atorvastatin [Lipitor] 40 mg PO HS Isosorbide Mononitrate [Isosorbide Mononitrate ER] 30 mg PO DAILY Mirtazapine [Remeron] 15 mg PO HS Insulin Glargine,Hum.rec.anlog [Toujeo Solostar] 14 units SQ BID carvediloL [Coreg] 3.125 mg PO BID Naloxone HCl 4 mg NASAL ONCE PRN PRN Reason: suspected od Maalox Plus 30 ml PO Q3H PRN PRN Reason: Gi Upset Insulin Lispro [humaLOG Kwikpen] 20 unit SQ BID Acetaminophen Tab [Tylenol] 650 mg PO Q6H PRN PRN Reason: Pain Levothyroxine Sodium [Synthroid] 50 mcg PO DAILY Sertraline [Zoloft] 100 mg PO BID Pantoprazole [Protonix] 40 mg PO DAILY Clopidogrel [Plavix] 75 mg PO DAILY tab Furosemide [Lasix] 40 mg PO DAILY Ipratropium-Albuterol Nebulize [Duoneb 0.5 mg-3 mg/3 ml Soln] 3 ml INHALATION RT-Q6H PRN PRN Reason: Shortness Of Breath/wheezing oxyBUTYnin chloride [oxyBUTYnin chloride ER] 5 mg PO BID Darbepoetin Aly [Aranesp] 60 mcg SQ TH Gabapentin [Neurontin] 200 mg PO BID #12 cap HYDROcodone/APAP 10-325MG [Ovid 10-325] 1 tab PO Q8H PRN #9 tab PRN Reason: Pain Discontinued Potassium Chloride ER [K-Dur 20] 20 meq PO DAILY Discharge Medication List Atorvastatin [Lipitor] 40 mg PO HS 08/10/16 [History] Isosorbide Mononitrate [Isosorbide Mononitrate ER] 30 mg PO DAILY 08/10/16 [History] Mirtazapine [Remeron] 15 mg PO HS 04/12/22 [History] Acetaminophen Tab [Tylenol] 650 mg PO Q6H PRN 05/08/22 [History] Levothyroxine Sodium [Synthroid] 50 mcg PO DAILY 12/17/22 [History] Sertraline [Zoloft] 100 mg PO BID 12/17/22 [History] Insulin Glargine,Hum.rec.anlog [Toujeo Solostar] 14 units SQ BID 01/30/24 [History] Pantoprazole [Protonix] 40 mg PO DAILY 01/30/24 [History] Clopidogrel [Plavix] 75 mg PO DAILY tab 02/23/24 [Rx] Furosemide [Lasix] 40 mg PO DAILY 03/01/24 [History] Ipratropium-Albuterol Nebulize [Duoneb 0.5 mg-3 mg/3 ml Soln] 3 ml INHALATION RT-Q6H PRN 03/01/24 [History] Naloxone HCl 4 mg NASAL ONCE PRN 03/01/24 [History] carvediloL [Coreg] 3.125 mg PO BID 03/01/24 [History] oxyBUTYnin chloride [oxyBUTYnin chloride ER] 5 mg PO BID 03/01/24 [History] Darbepoetin Aly [Aranesp] 60 mcg SQ TH 04/03/24 [History] Insulin Lispro [humaLOG Kwikpen] 20 unit SQ BID 04/03/24 [History] Maalox Plus 30 ml PO Q3H PRN 04/03/24 [History] Gabapentin [Neurontin] 200 mg PO BID #12 cap 04/05/24 [Rx] HYDROcodone/APAP 10-325MG [Ovid 10-325] 1 tab PO Q8H PRN #9 tab 04/05/24 [Rx] Follow up Appointment(s)/Referral(s): Chris Freire PAC [PHYSICIAN PRINT SUPPORT SPECIALIST] - 3 Weeks Maik Jaam MD [STAFF PHYSICIAN] - 3 Days Activity/Diet/Wound Care/Special Instructions: [facility] subacute rehab CBC, BMP in 2days Discharge Disposition: TRANSFER TO SNF/ECF
[2024-04-05 12:12] LABS: Glucose,Whole Blood 217 mg/dL (70-110)
[2024-04-05 16:55] LABS: Glucose,Whole Blood 182 mg/dL (70-110)
[2024-04-05 20:04] LABS: Glucose,Whole Blood 173 mg/dL (70-110)
[2024-04-05] MEDS: hydrALAZINE HCL 10 MG TAB PO ONE (20:53)
[2024-04-05] MEDS ORDERED: hydrALAZINE HCL 10 MG TAB PO SCH (21:00)
[2024-04-06 07:04] LABS: Glucose,Whole Blood 143 mg/dL (70-110)
[2024-04-06] MEDS: DARBEPOETIN ALFA 60 MCG/0.3 ML SYRINGE SQ SCH (07:54)
[2024-04-06 12:07] LABS: Glucose,Whole Blood 168 mg/dL (70-110)
[2024-04-06 12:35] VITALS: BP 165/61; PULSE 64; TEMP 97.8
== END 2024-04-06 14:36 ==
LOC: EC 23:57 → INTOOBSV 04-03 02:45 → 5NMEDONC 04-03 02:45
PROVIDERS: ADMIT Family Medicine; ATTEND Family Medicine
CPT/HCPCS: 36415; 80048; 80053; 83036; 84132; 84439; 84443; 85025; 93005; 94660; 94760; 96360; 96361; 96372; 99285

== ENCOUNTER 2025-02-20 19:44 | Emergency (ER) | payer MEDICARE, OTHER ==
--- NOTE | 2025-02-20 19:56 | ED ---
Headache HPI - General Chief Complaint: Headache Stated Complaint: Headache Time Seen by Provider: 02/20/25 19:50 Source: RN notes reviewed, old records reviewed Mode of arrival: EMS Limitations: altered mental status - History of Present Illness Initial Comments: This is a 75 female to the ER for evaluation of headache nausea vomiting eye pain left eye pain and headache. Patient also complains of possibility of UTI per outpatient MD Complaint: headache, other (eye pain) -: hour(s) Onset Description: sudden Location: left, frontal, retro-orbital Severity: moderate Severity scale (1-10): 7 Consistency: constant Worsens With: none - Related Data Home Medications Medication Instructions Recorded Confirmed Atorvastatin [Lipitor] 40 mg PO HS 08/10/16 04/03/24 Isosorbide Mononitrate [Isosorbide 30 mg PO DAILY 08/10/16 04/03/24 Mononitrate ER] Mirtazapine [Remeron] 15 mg PO HS 04/12/22 04/03/24 Acetaminophen Tab [Tylenol] 650 mg PO Q6H PRN 05/08/22 04/03/24 Levothyroxine Sodium [Synthroid] 50 mcg PO DAILY 12/17/22 04/03/24 Sertraline [Zoloft] 100 mg PO BID 12/17/22 04/03/24 Insulin Glargine,Hum.rec.anlog 14 units SQ BID 01/30/24 04/03/24 [Toujeo Solostar] Pantoprazole [Protonix] 40 mg PO DAILY 01/30/24 04/03/24 Furosemide [Lasix] 40 mg PO DAILY 03/01/24 04/03/24 Ipratropium-Albuterol Nebulize 3 ml INHALATION RT-Q6H PRN 03/01/24 04/03/24 [Duoneb 0.5 mg-3 mg/3 ml Soln] Naloxone HCl 4 mg NASAL ONCE PRN 03/01/24 04/03/24 carvediloL [Coreg] 3.125 mg PO BID 03/01/24 04/03/24 oxyBUTYnin chloride [oxyBUTYnin 5 mg PO BID 03/01/24 04/03/24 chloride ER] Darbepoetin Aly [Aranesp] 60 mcg SQ TH 04/03/24 04/03/24 Insulin Lispro [humaLOG Kwikpen] 20 unit SQ BID 04/03/24 04/03/24 Maalox Plus 30 ml PO Q3H PRN 04/03/24 04/03/24 Previous Rx's Medication Instructions Recorded Clopidogrel [Plavix] 75 mg PO DAILY tab 02/23/24 Gabapentin [Neurontin] 200 mg PO BID #12 cap 04/05/24 HYDROcodone/APAP 10-325MG [[place] 1 tab PO Q8H PRN #9 tab 04/05/24 10-325] Cephalexin [Keflex] 500 mg PO Q8HR #20 cap 02/20/25 Allergies Allergy/AdvReac Type Severity Reaction Status Date / Time ibuprofen [From Motrin] Allergy Rash/Hives Verified 04/03/24 12:03 Penicillins Allergy Anaphylaxis Verified 04/03/24 12:03 Review of Systems ROS Statement: Those systems with pertinent positive or pertinent negative responses have been documented in the HPI. ROS Other: All systems not noted in ROS Statement are negative. Past Medical History Past Medical History: Atrial Fibrillation, Coronary Artery Disease (CAD), COPD, Diabetes Mellitus, Eye Disorder, Hyperlipidemia, Hypertension, Osteoarthritis (OA), Pneumonia, Renal Disease, Sleep Apnea/CPAP/BIPAP, Thyroid Disorder Additional Past Medical History / Comment(s): on 05/08/22 with anemia/had EGD and colonoscopy which showed nonbleeding stomach ulcer/diverticular disease and colon polyp, pt received blood transfusions.on 02/12/22 covid/pneumonia/sepsis, other past pneumonias, acute hypoxic respiratory failure/now on home oxygen ATC, new A fib with RVR, IDDM type II, neuropathy bilateral feet, L eye retinal bleed/lasik eye surgery, R eye cataract, bilateral eye macular degeneration/gets injections/poor vision, CKD stage III, anemia, UTI/sepsis, bilateral leg lymphedema, FLORES/does not have cpap machine at this time, diverticulitis, gout, chronic back pain, rheumatic fever, hypothyroid. History of Any Multi-Drug Resistant Organisms: ESBL Date of last positivie culture/infection: 05/22/22 ESBL Klebsiella MDRO Source:: Urine Past Surgical History: Bariatric Surgery, Section, Cholecystectomy, Coronary Bypass/CABG, Heart Catheterization, Hysterectomy, Orthopedic Surgery, Tonsillectomy Additional Past Surgical History / Comment(s): EGD, colonoscopy, 2 vessel CABG in 1996, bilateral carpal tunnel release, lap band, L eye laser surgery, Past Anesthesia/Blood Transfusion Reactions: No Reported Reaction Past Psychological History: Depression Smoking Status: Never smoker Past Alcohol Use History: None Reported Past Drug Use History: None Reported - Past Family History Father History Unknown: Yes Family Medical History: Cancer, Coronary Artery Disease (CAD), Diabetes Mellitus Additional Family Medical History / Comment(s): Prostate cancer Mother History Unknown: Yes Family Medical History: Cancer Additional Family Medical History / Comment(s): Bone cancer. General Exam General appearance: alert, in no apparent distress Head exam: Present: atraumatic, normocephalic, normal inspection Eye exam: Present: normal appearance, PERRL, EOMI. Absent: scleral icterus, conjunctival injection, periorbital swelling ENT exam: Present: normal exam, mucous membranes moist Neck exam: Present: normal inspection. Absent: tenderness, meningismus, lymphadenopathy Respiratory exam: Present: normal lung sounds bilaterally. Absent: respiratory distress, wheezes, rales, rhonchi, stridor Cardiovascular Exam: Present: regular rate, normal rhythm, normal heart sounds. Absent: systolic murmur, diastolic murmur, rubs, gallop, clicks GI/Abdominal exam: Present: soft, normal bowel sounds. Absent: distended, tenderness, guarding, rebound, rigid Extremities exam: Present: normal inspection, full ROM, normal capillary refill. Absent: tenderness, pedal edema, joint swelling, calf tenderness Back exam: Present: normal inspection Neurological exam: Present: alert, oriented X3, CN II-XII intact Psychiatric exam: Present: normal affect, normal mood Skin exam: Present: warm, dry, intact, normal color. Absent: rash Course Vital Signs 02/20/25 02/20/25 02/20/25 19:46 21:02 22:35 Temperature 98.4 F Pulse Rate 80 76 73 Respiratory 18 20 20 Rate Blood Pressure 184/78 173/78 138/74 O2 Sat by Pulse 96 98 97 Oximetry 02/21/25 00:05 Temperature 98.1 F Pulse Rate 76 Respiratory 20 Rate Blood Pressure 155/52 O2 Sat by Pulse 97 Oximetry - Reevaluation(s) Reevaluation #1: 02/20/25 19:55 Medical records reviewed Reevaluation #2: 02/20/25 21:47 Patient's symptoms improved here in the ER Reevaluation #3: 02/20/25 21:47 Patient informed of results and questions answered Reevaluation #4: Was pt. sent in by a medical professional or institution (ELE Mahoney, TRACK REPAIR SUPERVISOR, urgent care, hospital, or [facility]...) When possible be specific @ -no Did you speak to anyone other than the patient for history (EMS, parent, family, police, friend...)? What history was obtained from this source @ -no Did you review nursing and triage notes (agree or disagree)? Why? @ -agree Are old charts reviewed (outside hosp., previous admission, EMS record, old EKG, old radiological studies, urgent care reports/EKG's, [facility] records)? Report findings @ -yes Differential Diagnosis (chest pain, altered mental status, abdominal pain women, abdominal pain men, vaginal bleeding, weakness, fever, dyspnea, syncope, headache, dizziness, GI bleed, back pain, seizure, CVA, palpatations, mental health, musculoskeletal)? @ -prior EKG interpreted by me (3pts min.). @ -yes X-rays interpreted by me (1pt min.). @ -no CT interpreted by me (1pt min.). @ -yes negative for acute disease U/S interpreted by me (1pt. min.). @ -no What testing was considered but not performed or refused? (CT, X-rays, U/S, labs)? Why? @ -none What meds were considered but not given or refused? Why? @ -none Did you discuss the management of the patient with other professionals (professionals i.e. ELE Mahoney, TRACK REPAIR SUPERVISOR, lab, RT, psych nurse, director of social media marketing, ferryboat helper, teacher, county health officer, case briefer)? Give summary @ -no Was smoking cessation discussed for >3mins.? @ -no Was critical care preformed (if so, how long)? @ -no Were there social determinants of health that impacted care today? How? (Homelessness, low income, unemployed, alcoholism, drug addiction, transportation, low edu. Level, literacy, decrease access to med. care, custodial, rehab)? @ -none Was there de-escalation of care discussed even if they declined (Discuss DNR or withdrawal of care, Hospice)? DNR status @ -no What co-morbidities impacted this encounter? (DM, HTN, Smoking, COPD, CAD, Cancer, CVA, ARF, Chemo, Hep., AIDS, mental health diagnosis, sleep apnea, morbid obesity)? @ -none Was patient admitted / discharged? Hospital course, mention meds given and route, prescriptions, significant lab abnormalities, going to OR and other pertinent info. @ - 75 female to ER for headache and conjunctivitis of the left eye patient can be discharged home on antibiotics Discharge Undiagnosed new problem with uncertain prognosis? @ -no Drug Therapy requiring intensive monitoring for toxicity (Heparin, Nitro, Insulin, Cardizem)? @ -no Were any procedures done? @ -no Diagnosis/symptom? @ -Headache and conjunctivitis Acute, or Chronic, or Acute on Chronic? @ -Acute Uncomplicated (without systemic symptoms) or Complicated (systemic symptoms)? @ -Complicated Side effects of treatment? @ -no Exacerbation, Progression, or Severe Exacerbation? @ -exacerbation Poses a threat to life or bodily function? How? (Chest pain, [place], [place], pneumonia, PE, COPD, DKA, ARF, appy, cholecystitis, CVA, Diverticulitis, Homicidal, Suicidal, threat to staff... and all critical care pts) @ -yes because of acute headache Reevaluation #5: Differential Headache: Migraine, tension, cluster, carbon monoxide, central venous thrombosis, pension karma temporal arteritis, acute closure glaucoma, intercranial hemorrhage, mastoiditis, sinusitis, head injury, this is not meant to be an all-inclusive list. Medical Decision Making - Medical Decision Making 75 female to ER for headache and conjunctivitis of the left eye patient can be discharged home on antibiotics - Lab Data Result diagrams: 02/20/25 20:12 02/20/25 20:12 Lab Results 02/20/25 02/20/25 02/20/25 Range/Units 20:12 20:12 20:12 WBC 9.13 (4.50-10.00) 10*3/uL RBC 3.77 L (4.10-5.20) 10*6/uL Hgb 10.4 L (12.0-15.0) g/dL Hct 32.4 L (37.2-46.3) % MCV 85.9 (80.0-97.0) fL MCH 27.6 (27.0-32.0) pg MCHC 32.1 (32.0-37.0) g/dL Plt Count 172 (140-440) 10*3/uL MPV 11.2 (9.5-12.2) fL Immature Gran % (Auto) 0.5 % Neutrophils % 88.9 % Lymphocytes % 5.4 % Monocytes % 4.7 % Eosinophils % 0.2 % Basophils % 0.3 % Immature Gran # 0.05 H (0.00-0.04) 10*3/uL Neutrophils # 8.11 H (1.80-7.70) 10*3/uL Lymphocytes # 0.49 L (0.90-5.00) 10*3/uL Monocytes # 0.43 (0.20-1.00) 10*3/uL Eosinophils # 0.02 L (0.04-0.35) 10*3/uL Basophils # 0.03 (0.00-0.10) 10*3/uL PT 11.6 (10.0-12.5) sec INR 1.1 (<1.2) APTT 20.2 L (22.0-30.0) sec Sodium 139 (137-145) mmol/L Potassium 4.6 (3.5-5.1) mmol/L Chloride 100 (98-107) mmol/L Carbon Dioxide 30 (22-30) mmol/L Anion Gap 9 mmol/L BUN 47 H (7-17) mg/dL Creatinine 1.11 H (0.52-1.04) mg/dL Est GFR (CKD-EPI)AfAm 56 (>60 ml/min/1.73 sqM) Est GFR (CKD-EPI)NonAf 49 (>60 ml/min/1.73 sqM) Glucose 191 H (74-99) mg/dL Plasma Lactic Acid Garcia (0.7-2.0) mmol/L Calcium 9.6 (8.4-10.2) mg/dL Phosphorus 3.2 (2.5-4.5) mg/dL Magnesium 1.9 (1.6-2.3) mg/dL Total Bilirubin 1.0 (0.2-1.3) mg/dL AST 21 (14-36) U/L ALT 12 (4-34) U/L Alkaline Phosphatase 123 (38-126) U/L Troponin I (0.000-0.034) ng/mL NT-Pro-B Natriuret Pep 9700 pg/mL Total Protein 6.9 (6.3-8.2) g/dL Albumin 3.6 (3.5-5.0) g/dL Urine Color Urine Appearance (Clear) Urine pH (5.0-8.0) Ur Specific [place] (1.001-1.035) Urine Protein (Negative) Urine Glucose (UA) (Negative) Urine Ketones (Negative) Urine Blood (Negative) Urine Nitrite (Negative) Urine Bilirubin (Negative) Urine Urobilinogen (<2.0) mg/dL Ur Leukocyte Esterase (Negative) Urine RBC (0-5) /hpf Urine WBC (0-5) /hpf Ur Squamous Epith Cells (0-4) /hpf Urine Bacteria (None) /hpf Urine Mucus (None) /hpf 02/20/25 02/20/25 02/20/25 Range/Units 20:12 20:16 22:13 WBC (4.50-10.00) 10*3/uL RBC (4.10-5.20) 10*6/uL Hgb (12.0-15.0) g/dL Hct (37.2-46.3) % MCV (80.0-97.0) fL MCH (27.0-32.0) pg MCHC (32.0-37.0) g/dL Plt Count (140-440) 10*3/uL MPV (9.5-12.2) fL Immature Gran % (Auto) % Neutrophils % % Lymphocytes % % Monocytes % % Eosinophils % % Basophils % % Immature Gran # (0.00-0.04) 10*3/uL Neutrophils # (1.80-7.70) 10*3/uL Lymphocytes # (0.90-5.00) 10*3/uL Monocytes # (0.20-1.00) 10*3/uL Eosinophils # (0.04-0.35) 10*3/uL Basophils # (0.00-0.10) 10*3/uL PT (10.0-12.5) sec INR (<1.2) APTT (22.0-30.0) sec Sodium (137-145) mmol/L Potassium (3.5-5.1) mmol/L Chloride (98-107) mmol/L Carbon Dioxide (22-30) mmol/L Anion Gap mmol/L BUN (7-17) mg/dL Creatinine (0.52-1.04) mg/dL Est GFR (CKD-EPI)AfAm (>60 ml/min/1.73 sqM) Est GFR (CKD-EPI)NonAf (>60 ml/min/1.73 sqM) Glucose (74-99) mg/dL Plasma Lactic Acid Garcia 0.9 (0.7-2.0) mmol/L Calcium (8.4-10.2) mg/dL Phosphorus (2.5-4.5) mg/dL Magnesium (1.6-2.3) mg/dL Total Bilirubin (0.2-1.3) mg/dL AST (14-36) U/L ALT (4-34) U/L Alkaline Phosphatase (38-126) U/L Troponin I 0.097 H* (0.000-0.034) ng/mL NT-Pro-B Natriuret Pep pg/mL Total Protein (6.3-8.2) g/dL Albumin (3.5-5.0) g/dL Urine Color Colorless Urine Appearance Cloudy H (Clear) Urine pH 5.5 (5.0-8.0) Ur Specific [place] 1.012 (1.001-1.035) Urine Protein 1+ H (Negative) Urine Glucose (UA) Negative (Negative) Urine Ketones Negative (Negative) Urine Blood Negative (Negative) Urine Nitrite Positive H (Negative) Urine Bilirubin Negative (Negative) Urine Urobilinogen <2.0 (<2.0) mg/dL Ur Leukocyte Esterase Moderate H (Negative) Urine RBC 2 (0-5) /hpf Urine WBC 16 H (0-5) /hpf Ur Squamous Epith Cells 2 (0-4) /hpf Urine Bacteria Rare H (None) /hpf Urine Mucus Rare H (None) /hpf - EKG Data -: EKG Interpreted by Me (EKG is sinus 77 RI 225 QRS 79 QTc 495) - Radiology Data Radiology results: report reviewed (CT brain is negative for acute disease), gus ge reviewed Disposition Clinical Impression: Conjunctivitis, left eye, Headache Disposition: HOME SELF-CARE Condition: Good Instructions (If sedation given, give patient instructions): Acute Headache (ED), Conjunctivitis (ED) Prescriptions: Cephalexin [Keflex] 500 mg PO Q8HR #20 cap Is patient prescribed a controlled substance at d/c from ED?: No Referrals: Maik Jama MD [Primary Care Provider] - 1-2 days Time of Disposition: 21:45
[2025-02-20] MEDS: SODIUM CHLORIDE 0.9% 1,000 ML IV ONE (20:16)
[2025-02-20] MEDS: ONDANSETRON 4 MG/2 ML VIAL IVP STA (20:16)
[2025-02-20 20:46] LABS: Basophils # (A) 0.03 10*3/uL (0.00-0.10); Basophils % (A) 0.3 %; Eosinophils # (A) 0.02 10*3/uL (0.04-0.35); Eosinophils % (A) 0.2 %; HCT 32.4 % (37.2-46.3); HGB 10.4 g/dL (12.0-15.0); Lymphocytes # (A) 0.49 10*3/uL (0.90-5.00); Lymphocytes % (A) 5.4 %; MCH 27.6 pg (27.0-32.0); MCHC 32.1 g/dL (32.0-37.0); MCV 85.9 fL (80.0-97.0); Monocytes # (A) 0.43 10*3/uL (0.20-1.00); Monocytes % (A) 4.7 %; Neutrophils # (A) 8.11 10*3/uL (1.80-7.70); Neutrophils % (A) 88.9 %; Platelet Count 172 10*3/uL (140-440); RBC 3.77 10*6/uL (4.10-5.20); RDW 15.1 % (11.5-14.5); WBC 9.13 10*3/uL (4.50-10.00)
[2025-02-20 21:01] LABS: ALT 12 U/L (4-34); AST 21 U/L (14-36); African American GFR (CKD) 56 (>60 ml/min/1.73 sqM); Albumin 3.6 g/dL (3.5-5.0); Alkaline Phosphatase 123 U/L (38-126); Anion Gap 9 mmol/L; Blood Urea Nitrogen 47 mg/dL (7-17); Calcium 9.6 mg/dL (8.4-10.2); Carbon Dioxide 30 mmol/L (22-30); Chloride 100 mmol/L (98-107); Glucose 191 mg/dL (74-99); INR 1.1 (<1.2); Magnesium 1.9 mg/dL (1.6-2.3); Non-African American GFR(CKD) 49 (>60 ml/min/1.73 sqM); Potassium 4.6 mmol/L (3.5-5.1); Prothrombin Time 11.6 sec (10.0-12.5); Sodium 139 mmol/L (137-145); Total Protein 6.9 g/dL (6.3-8.2)
[2025-02-20 21:03] VITALS: RESP 20
[2025-02-20 21:06] LABS: NT-Pro-B-Type Natriuretic Pept 9700 pg/mL
[2025-02-20 21:18] LABS: Partial Thromboplastin Time 20.2 sec (22.0-30.0)
--- NOTE | 2025-02-20 21:21 | CT ---
EXAMINATION TYPE: CT brain wo con DATE OF EXAM: 02/20/2025 8:37 PM COMPARISON: 06/05/2023 CLINICAL INDICATION: Female, 75 years old with history of weakness, Weakness TECHNIQUE: CT of the brain is performed utilizing 3 mm thick sections through the posterior fossa and 3 mm thick sections through the remaining calvarium. Study is performed within 24 hours of arrival to the hospital. Contrast used: mL of , (none if empty) CT DLP: 1080.6 mGycm, Automated exposure control for dose reduction was used. FINDINGS: No abnormal hyperdensity is present to suggest an acute intracranial hemorrhage. No mass lesion is evident. No acute infarcts are evident. Lacunar infarct or Virchow-Wilton spaces present on the left. Mild joseph ventricular white matter hypodensity is present likely on the basis of chronic white matter ischemic changes Ventricles and sulci are prominent for the patient age. Paranasal sinuses and mastoid air cells within the [id number]-he-aamp are clear. IMPRESSION: 1. No acute intracranial process. Follow up MRI can be performed as clinically indicated. 2. Chronic appearing periventricular white matter ischemic type changes with atrophy. 3. 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
[2025-02-20 22:25] LABS: Bacteria,Urine Rare /hpf; Bilirubin,Urine Negative (Negative); Blood,Urine Negative (Negative); Color,Urine Colorless; Glucose,Urine (UA) Negative (Negative); Ketones,Urine Negative (Negative); Leukocyte Esterase,Urine Moderate (Negative); Mucus,Urine Rare /hpf; Nitrite,Urine Positive (Negative); PH, Urine 5.5 (5.0-8.0); Protein,Urine 1+ (Negative); RBC,Urine 2 /hpf (0-5); Specific Gravity,Urine 1.012 (1.001-1.035); Squamous Epithelial Cell,Urine 2 /hpf (0-4); Urobilinogen,Urine <2.0 mg/dL (<2.0); WBC,Urine 16 /hpf (0-5)
[2025-02-20] MEDS: MORPHINE SULFATE 4 MG/ML SYRINGE IV STA (22:36)
[2025-02-20] MEDS: POLYMYXIN B-TRIMETHOPRIM SULF (10,000-1) OPHTH DROPS 10 ML BTL LEFT EYE STA (22:41)
[2025-02-21 00:06] VITALS: BP 155/52; PULSE 76; TEMP 98.1
== END 2025-02-21 00:06 | disposition home or self-care (01) ==
LOC: EC 19:44
DX: H10.32 Unspecified acute conjunctivitis, left eye (principal); R51.9 Headache, unspecified; Z88.0 Allergy status to penicillin; Z88.6 Allergy status to analgesic agent
CPT/HCPCS: 36415; 93005; 83880; 80053; 83605; 83735; 84100; 84484; 85025; 85610; 85730; 81001; 70450; 99285; 96365; 96375 ×2; 96361; J2270; J2405; J0696